=== PATIENT | female | born 1960 | race Caucasian/White ===

== ENCOUNTER 2021-09-17 12:23 | Outpatient (CLI) | payer OTHER, SELFPAY | END 2021-09-17 12:24 | disposition home or self-care (01) | LOC: AMB 09-26 11:37 | PROVIDERS: Visit Provider Emergency Medicine Emergency Medical Services | DX: S09.90XA Unspecified injury of head, initial encounter (principal); M62.838 Other muscle spasm; R53.1 Weakness; W19.XXXA Unspecified fall, initial encounter; Y92.009 Unspecified place in unspecified non-institutional (private) residence as the place of occurrence of the external cause | CPT/HCPCS: A0425; A0429 ==

== ENCOUNTER 2021-12-27 14:30 | Outpatient (CLI) | payer OTHER, SELFPAY | END 2021-12-27 14:31 | disposition home or self-care (01) | LOC: AMB 12-29 11:26 | PROVIDERS: Visit Provider Family Medicine | DX: S39.92XA Unspecified injury of lower back, initial encounter (principal); W19.XXXA Unspecified fall, initial encounter; Y92.009 Unspecified place in unspecified non-institutional (private) residence as the place of occurrence of the external cause | CPT/HCPCS: A0425; A0429 ==

== ENCOUNTER 2021-12-27 14:55 | Emergency (ER) | payer OTHER, SELFPAY ==
[2021-12-27] VITALS (69 sets, daily range): BP systolic 83–113; BP diastolic 46–77; PULSE 61–88; RESP 20–24; TEMP 35.8–36.2; O2SAT 92–100
--- NOTE | 2021-12-27 15:14 | ED.GENADULT ---
HPI - General Adult General Time Seen by Provider: 15:14 <Ann Marie Kothari MD - Last Filed: 12/29/21 11:05> Date Seen: 12/27/21 <Ann Marie Kothari MD - Last Filed: 12/29/21 11:05> Chief complaint: Fall/Minor Trauma <Ann Marie Kothari MD - Last Filed: 12/29/21 11:05> Stated complaint: Fall <Ann Marie Kothari MD - Last Filed: 12/29/21 11:05> Time Seen by Provider: 12/27/21 15:07 <Ann Marie Kothari MD - Last Filed: 12/29/21 11:05> Source: patient, EMS and RN notes reviewed <Ann Marie Kothari MD - Last Filed: 12/29/21 11:05> Mode of arrival: EMS <Ann Marie Kothari MD - Last Filed: 12/29/21 11:05> Limitations: altered mental status <Ann Marie Kothari MD - Last Filed: 12/29/21 11:05> History of Present Illness HPI narrative: Patient is a 61-year-old female brought in by EMS for complaint of a fall at home. She had told EMS that she had fallen yesterday but her roommate stated she actually fell today. Her glucose was normal per EMS. She was reportedly on the ground, there were feces about her room. She was noted to be disheveled. Nursing staff cleaned her up on arrival. When I saw her she was sleeping, was arousable. She fell back asleep easily. She was able to tell me that she had no pain. She was not hurting anywhere. Kept falling back asleep and was difficult to get a history from. <Ann Marie Kothari MD - Last Filed: 12/29/21 11:05> Related Data Home medications: Home Medications Medication Instructions Recorded Confirmed Unobtainable 12/27/21 12/27/21 <Ann Marie Kothari MD - Last Filed: 12/29/21 11:05> Allergies/adverse reactions: Allergies Allergy/AdvReac Type Severity Reaction Status Date / Time celecoxib Allergy Unknown Verified 12/27/21 17:24 ibuprofen [From Motrin] Allergy Unknown Verified 12/27/21 17:24 naproxen Allergy Unknown Verified 12/27/21 17:24 <Ann Marie Kothari MD - Last Filed: 12/29/21 11:05> [facility] Social History: Social History Smoking Status: Unknown if ever smoked Non-prescribed substance use: denies use service: No <Ann Marie Kothari MD - Last Filed: 12/29/21 11:05> Exam Const: Vital Signs, click to edit/add: Vital Signs - 24 hr 12/27/21 15:01 12/27/21 15:19 12/27/21 16:30 Temperature 97.2 F L Pulse Rate Pulse Rate [Pulse Oximeter] 88 79 Respiratory Rate 20 20 Blood Pressure Blood Pressure [Ri ght Upper Arm] 113/77 101/53 L Pulse Oximetry 99 97 99 Oxygen Delivery Me thod Nasal Cannula Nasal Cannula 12/27/21 18:00 12/27/21 18:30 12/27/21 16:45 Temperature 96.5 F L Pulse Rate Pulse Rate [Pulse Oximeter] 79 78 79 Respiratory Rate 24 22 21 Blood Pressure Blood Pressure [Ri ght Upper Arm] 92/55 L 87/46 L 106/59 L Pulse Oximetry 97 97 99 Oxygen Delivery Me thod Nasal Cannula Nasal Cannula Nasal Cannula 12/27/21 17:00 12/27/21 17:15 12/27/21 17:30 Temperature Pulse Rate Pulse Rate [Pulse Oximeter] 78 79 82 Respiratory Rate 22 21 24 Blood Pressure Blood Pressure [Ri ght Upper Arm] 99/50 L 101/59 L 105/69 Pulse Oximetry 98 98 93 Oxygen Delivery Me thod Nasal Cannula Nasal Cannula Nasal Cannula 12/27/21 17:45 12/27/21 18:15 12/27/21 18:15 Temperature Pulse Rate Pulse Rate [Pulse Oximeter] 80 80 78 Respiratory Rate 23 22 22 Blood Pressure Blood Pressure [Ri ght Upper Arm] 100/58 L 88/54 L 90/52 L Pulse Oximetry 97 97 97 Oxygen Delivery Me thod Nasal Cannula Nasal Cannula Nasal Cannula 12/27/21 18:47 12/27/21 18:47 12/27/21 16:31 Temperature Pulse Rate 81 Pulse Rate [Pulse Oximeter] 78 78 Respiratory Rate 21 20 Blood Pressure 101/53 L Blood Pressure [Ri ght Upper Arm] 83/48 L 89/52 L Pulse Oximetry 96 97 93 Oxygen Delivery Me thod Nasal Cannula Nasal Cannula 12/27/21 16:32 12/27/21 16:45 12/27/21 16:46 Temperature Pulse Rate 81 79 79 Pulse Rate [Pulse Oximeter] Respiratory Rate 24 23 Blood Pressure 106/59 L Blood Pressure [Ri ght Upper Arm] Pulse Oximetry 92 98 99 Oxygen Delivery Me thod 12/27/21 17:00 12/27/21 17:01 12/27/21 17:15 Temperature Pulse Rate 79 79 80 Pulse Rate [Pulse Oximeter] Respiratory Rate 24 23 22 Blood Pressure 99/50 L 101/59 L Blood Pressure [Ri ght Upper Arm] Pulse Oximetry 99 98 98 Oxygen Delivery Me thod 12/27/21 17:16 12/27/21 17:30 12/27/21 17:31 Temperature Pulse Rate 80 81 84 Pulse Rate [Pulse Oximeter] Respiratory Rate 23 23 22 Blood Pressure 105/69 Blood Pressure [Ri ght Upper Arm] Pulse Oximetry 98 97 99 Oxygen Delivery Me thod 12/27/21 17:45 12/27/21 17:46 12/27/21 18:00 Temperature Pulse Rate 80 81 79 Pulse Rate [Pulse Oximeter] Respiratory Rate 22 24 21 Blood Pressure 100/58 L Blood Pressure [Ri ght Upper Arm] Pulse Oximetry 98 97 97 Oxygen Delivery Me thod 12/27/21 18:01 12/27/21 18:15 12/27/21 18:16 Temperature Pulse Rate 79 79 80 Pulse Rate [Pulse Oximeter] Respiratory Rate 23 22 21 Blood Pressure 92/55 L 88/54 L Blood Pressure [Ri ght Upper Arm] Pulse Oximetry 97 97 97 Oxygen Delivery Me thod 12/27/21 18:19 12/27/21 18:30 12/27/21 18:31 Temperature Pulse Rate 79 78 79 Pulse Rate [Pulse Oximeter] Respiratory Rate 23 21 21 Blood Pressure 90/52 L 87/46 L Blood Pressure [Ri ght Upper Arm] Pulse Oximetry 96 96 96 Oxygen Delivery Me thod 12/27/21 18:45 12/27/21 18:46 12/27/21 18:48 Temperature Pulse Rate 78 79 78 Pulse Rate [Pulse Oximeter] Respiratory Rate 22 23 22 Blood Pressure 83/48 L 89/52 L Blood Pressure [Ri ght Upper Arm] Pulse Oximetry 96 97 97 Oxygen Delivery Me thod 12/27/21 19:00 12/27/21 19:01 12/27/21 19:02 Temperature Pulse Rate 78 79 78 Pulse Rate [Pulse Oximeter] Respiratory Rate 21 22 20 Blood Pressure 83/49 L 84/51 L Blood Pressure [Ri ght Upper Arm] Pulse Oximetry 96 96 96 Oxygen Delivery Me thod 12/27/21 19:14 12/27/21 19:15 12/27/21 19:16 Temperature Pulse Rate 76 76 76 Pulse Rate [Pulse Oximeter] Respiratory Rate 21 24 21 Blood Pressure 85/48 L 83/49 L Blood Pressure [Ri ght Upper Arm] Pulse Oximetry 97 97 97 Oxygen Delivery Me thod 12/27/21 19:36 12/27/21 19:39 12/27/21 19:45 Temperature Pulse Rate 76 76 72 Pulse Rate [Pulse Oximeter] Respiratory Rate Blood Pressure 102/64 Blood Pressure [Ri ght Upper Arm] Pulse Oximetry 93 94 100 Oxygen Delivery Me thod 12/27/21 19:46 12/27/21 20:00 12/27/21 20:01 Temperature Pulse Rate 72 72 72 Pulse Rate [Pulse Oximeter] Respiratory Rate Blood Pressure 103/54 L 100/58 L Blood Pressure [Ri ght Upper Arm] Pulse Oximetry 100 99 99 Oxygen Delivery Me thod 12/27/21 20:02 12/27/21 20:15 12/27/21 20:16 Temperature Pulse Rate 71 71 71 Pulse Rate [Pulse Oximeter] Respiratory Rate Blood Pressure 97/56 L Blood Pressure [Ri ght Upper Arm] Pulse Oximetry 99 98 98 Oxygen Delivery Me thod 12/27/21 20:31 12/27/21 20:32 12/27/21 20:45 Temperature Pulse Rate 71 71 72 Pulse Rate [Pulse Oximeter] Respiratory Rate Blood Pressure 99/58 L Blood Pressure [Ri ght Upper Arm] Pulse Oximetry 98 98 97 Oxygen Delivery Me thod 12/27/21 20:46 12/27/21 21:00 12/27/21 21:01 Temperature Pulse Rate 72 75 74 Pulse Rate [Pulse Oximeter] Respiratory Rate Blood Pressure 96/59 L 104/58 L Blood Pressure [Ri ght Upper Arm] Pulse Oximetry 97 97 97 Oxygen Delivery Me thod 12/27/21 21:15 12/27/21 21:16 12/27/21 21:30 Temperature Pulse Rate 76 75 75 Pulse Rate [Pulse Oximeter] Respiratory Rate Blood Pressure 111/61 Blood Pressure [Ri ght Upper Arm] Pulse Oximetry 98 97 95 Oxygen Delivery Me thod 12/27/21 21:31 12/27/21 21:45 12/27/21 21:46 Temperature Pulse Rate 61 77 79 Pulse Rate [Pulse Oximeter] Respiratory Rate Blood Pressure 111/64 113/62 Blood Pressure [Ri ght Upper Arm] Pulse Oximetry 97 96 96 Oxygen Delivery Me thod 12/27/21 22:00 12/27/21 22:01 12/27/21 22:15 Temperature Pulse Rate 79 79 73 Pulse Rate [Pulse Oximeter] Respiratory Rate Blood Pressure 113/66 Blood Pressure [Ri ght Upper Arm] Pulse Oximetry 97 96 99 Oxygen Delivery Me thod 12/27/21 22:16 12/27/21 22:17 12/27/21 22:30 Temperature Pulse Rate 75 74 73 Pulse Rate [Pulse Oximeter] Respiratory Rate Blood Pressure 108/60 Blood Pressure [Ri ght Upper Arm] Pulse Oximetry 99 97 98 Oxygen Delivery Me thod 12/27/21 22:31 12/27/21 22:46 12/27/21 22:47 Temperature Pulse Rate 73 72 71 Pulse Rate [Pulse Oximeter] Respiratory Rate Blood Pressure 105/54 L 100/59 L Blood Pressure [Ri ght Upper Arm] Pulse Oximetry 96 97 96 Oxygen Delivery Me thod 12/27/21 23:01 12/27/21 23:02 12/27/21 23:16 Temperature Pulse Rate 73 72 69 Pulse Rate [Pulse Oximeter] Respiratory Rate Blood Pressure 103/59 L 101/57 L Blood Pressure [Ri ght Upper Arm] Pulse Oximetry 96 97 95 Oxygen Delivery Me thod 12/27/21 23:17 12/27/21 23:35 12/27/21 23:45 Temperature Pulse Rate 70 72 67 Pulse Rate [Pulse Oximeter] Respiratory Rate Blood Pressure Blood Pressure [Ri ght Upper Arm] Pulse Oximetry 97 97 96 Oxygen Delivery Me thod 12/27/21 23:46 12/28/21 00:01 12/28/21 00:02 Temperature Pulse Rate 69 70 70 Pulse Rate [Pulse Oximeter] Respiratory Rate Blood Pressure 100/54 L 98/57 L Blood Pressure [Ri ght Upper Arm] Pulse Oximetry 97 97 97 Oxygen Delivery Me thod 12/28/21 00:16 12/28/21 00:17 12/28/21 00:30 Temperature Pulse Rate 67 66 67 Pulse Rate [Pulse Oximeter] Respiratory Rate Blood Pressure 94/53 L Blood Pressure [Ri ght Upper Arm] Pulse Oximetry 97 97 98 Oxygen Delivery Me thod 12/28/21 00:31 12/28/21 00:46 12/28/21 00:47 Temperature Pulse Rate 67 65 66 Pulse Rate [Pulse Oximeter] Respiratory Rate Blood Pressure 97/56 L 97/54 L Blood Pressure [Ri ght Upper Arm] Pulse Oximetry 98 98 97 Oxygen Delivery Me thod 12/28/21 01:00 12/28/21 01:01 12/28/21 01:15 Temperature Pulse Rate 70 75 70 Pulse Rate [Pulse Oximeter] Respiratory Rate Blood Pressure 107/65 Blood Pressure [Ri ght Upper Arm] Pulse Oximetry 97 96 98 Oxygen Delivery Me thod 12/28/21 01:17 12/28/21 01:30 12/28/21 01:31 Temperature Pulse Rate 75 79 77 Pulse Rate [Pulse Oximeter] Respiratory Rate Blood Pressure 109/60 117/76 Blood Pressure [Ri ght Upper Arm] Pulse Oximetry 99 99 98 Oxygen Delivery Me thod 12/28/21 01:59 12/28/21 02:00 12/28/21 02:01 Temperature Pulse Rate 73 78 77 Pulse Rate [Pulse Oximeter] Respiratory Rate Blood Pressure 111/76 Blood Pressure [Ri ght Upper Arm] Pulse Oximetry 98 92 96 Oxygen Delivery Me thod <Ann Marie Kothari MD - Last Filed: 12/29/21 11:05> Vital Signs, click to edit/add: Vital Signs - 24 hr 12/27/21 15:01 12/27/21 15:19 12/27/21 16:30 Temperature 97.2 F L Pulse Rate Pulse Rate [Pulse Oximeter] 88 79 Respiratory Rate 20 20 Blood Pressure Blood Pressure [Ri ght Upper Arm] 113/77 101/53 L Pulse Oximetry 99 97 99 Oxygen Delivery Me thod Nasal Cannula Nasal Cannula 12/27/21 18:00 10/11/22 18:30 12/27/21 16:45 Temperature 96.5 F L Pulse Rate Pulse Rate [Pulse Oximeter] 79 78 79 Respiratory Rate 24 22 21 Blood Pressure Blood Pressure [Ri ght Upper Arm] 92/55 L 87/46 L 106/59 L Pulse Oximetry 97 97 99 Oxygen Delivery Me thod Nasal Cannula Nasal Cannula Nasal Cannula 12/27/21 17:00 12/27/21 17:15 12/27/21 17:30 Temperature Pulse Rate Pulse Rate [Pulse Oximeter] 78 79 82 Respiratory Rate 22 21 24 Blood Pressure Blood Pressure [Ri ght Upper Arm] 99/50 L 101/59 L 105/69 Pulse Oximetry 98 98 93 Oxygen Delivery Me thod Nasal Cannula Nasal Cannula Nasal Cannula 12/27/21 17:45 12/27/21 18:15 12/27/21 18:15 Temperature Pulse Rate Pulse Rate [Pulse Oximeter] 80 80 78 Respiratory Rate 23 22 22 Blood Pressure Blood Pressure [Ri ght Upper Arm] 100/58 L 88/54 L 90/52 L Pulse Oximetry 97 97 97 Oxygen Delivery Me thod Nasal Cannula Nasal Cannula Nasal Cannula 12/27/21 18:47 12/27/21 18:47 12/27/21 16:31 Temperature Pulse Rate 81 Pulse Rate [Pulse Oximeter] 78 78 Respiratory Rate 21 20 Blood Pressure 101/53 L Blood Pressure [Ri ght Upper Arm] 83/48 L 89/52 L Pulse Oximetry 96 97 93 Oxygen Delivery Me thod Nasal Cannula Nasal Cannula 12/27/21 16:32 12/27/21 16:45 12/27/21 16:46 Temperature Pulse Rate 81 79 79 Pulse Rate [Pulse Oximeter] Respiratory Rate 24 23 Blood Pressure 106/59 L Blood Pressure [Ri ght Upper Arm] Pulse Oximetry 92 98 99 Oxygen Delivery Me thod 12/27/21 17:00 12/27/21 17:01 12/27/21 17:15 Temperature Pulse Rate 79 79 80 Pulse Rate [Pulse Oximeter] Respiratory Rate 24 23 22 Blood Pressure 99/50 L 101/59 L Blood Pressure [Ri ght Upper Arm] Pulse Oximetry 99 98 98 Oxygen Delivery Me thod 12/27/21 17:16 12/27/21 17:30 12/27/21 17:31 Temperature Pulse Rate 80 81 84 Pulse Rate [Pulse Oximeter] Respiratory Rate 23 23 22 Blood Pressure 105/69 Blood Pressure [Ri ght Upper Arm] Pulse Oximetry 98 97 99 Oxygen Delivery Me thod 12/27/21 17:45 12/27/21 17:46 12/27/21 18:00 Temperature Pulse Rate 80 81 79 Pulse Rate [Pulse Oximeter] Respiratory Rate 22 24 21 Blood Pressure 100/58 L Blood Pressure [Ri ght Upper Arm] Pulse Oximetry 98 97 97 Oxygen Delivery Me thod 12/27/21 18:01 12/27/21 18:15 12/27/21 18:16 Temperature Pulse Rate 79 79 80 Pulse Rate [Pulse Oximeter] Respiratory Rate 23 22 21 Blood Pressure 92/55 L 88/54 L Blood Pressure [Ri ght Upper Arm] Pulse Oximetry 97 97 97 Oxygen Delivery Me thod 12/27/21 18:19 12/27/21 18:30 12/27/21 18:31 Temperature Pulse Rate 79 78 79 Pulse Rate [Pulse Oximeter] Respiratory Rate 23 21 21 Blood Pressure 90/52 L 87/46 L Blood Pressure [Ri ght Upper Arm] Pulse Oximetry 96 96 96 Oxygen Delivery Me thod 12/27/21 18:45 12/27/21 18:46 12/27/21 18:48 Temperature Pulse Rate 78 79 78 Pulse Rate [Pulse Oximeter] Respiratory Rate 22 23 22 Blood Pressure 83/48 L 89/52 L Blood Pressure [Ri ght Upper Arm] Pulse Oximetry 96 97 97 Oxygen Delivery Me thod 12/27/21 19:00 12/27/21 19:01 12/27/21 19:02 Temperature Pulse Rate 78 79 78 Pulse Rate [Pulse Oximeter] Respiratory Rate 21 22 20 Blood Pressure 83/49 L 84/51 L Blood Pressure [Ri ght Upper Arm] Pulse Oximetry 96 96 96 Oxygen Delivery Me thod 12/27/21 19:14 12/27/21 19:15 12/27/21 19:16 Temperature Pulse Rate 76 76 76 Pulse Rate [Pulse Oximeter] Respiratory Rate 21 24 21 Blood Pressure 85/48 L 83/49 L Blood Pressure [Ri ght Upper Arm] Pulse Oximetry 97 97 97 Oxygen Delivery Me thod 12/27/21 19:36 12/27/21 19:39 12/27/21 19:45 Temperature Pulse Rate 76 76 72 Pulse Rate [Pulse Oximeter] Respiratory Rate Blood Pressure 102/64 Blood Pressure [Ri ght Upper Arm] Pulse Oximetry 93 94 100 Oxygen Delivery Me thod 12/27/21 19:46 12/27/21 20:00 12/27/21 20:01 Temperature Pulse Rate 72 72 72 Pulse Rate [Pulse Oximeter] Respiratory Rate Blood Pressure 103/54 L 100/58 L Blood Pressure [Ri ght Upper Arm] Pulse Oximetry 100 99 99 Oxygen Delivery Me thod 12/27/21 20:02 12/27/21 20:15 12/27/21 20:16 Temperature Pulse Rate 71 71 71 Pulse Rate [Pulse Oximeter] Respiratory Rate Blood Pressure 97/56 L Blood Pressure [Ri ght Upper Arm] Pulse Oximetry 99 98 98 Oxygen Delivery Me thod 12/27/21 20:31 12/27/21 20:32 12/27/21 20:45 Temperature Pulse Rate 71 71 72 Pulse Rate [Pulse Oximeter] Respiratory Rate Blood Pressure 99/58 L Blood Pressure [Ri ght Upper Arm] Pulse Oximetry 98 98 97 Oxygen Delivery Me thod 12/27/21 20:46 12/27/21 21:00 12/27/21 21:01 Temperature Pulse Rate 72 75 74 Pulse Rate [Pulse Oximeter] Respiratory Rate Blood Pressure 96/59 L 104/58 L Blood Pressure [Ri ght Upper Arm] Pulse Oximetry 97 97 97 Oxygen Delivery Me thod 12/27/21 21:15 12/27/21 21:16 12/27/21 21:30 Temperature Pulse Rate 76 75 75 Pulse Rate [Pulse Oximeter] Respiratory Rate Blood Pressure 111/61 Blood Pressure [Ri ght Upper Arm] Pulse Oximetry 98 97 95 Oxygen Delivery Me thod 12/27/21 21:31 12/27/21 21:45 12/27/21 21:46 Temperature Pulse Rate 61 77 79 Pulse Rate [Pulse Oximeter] Respiratory Rate Blood Pressure 111/64 113/62 Blood Pressure [Ri ght Upper Arm] Pulse Oximetry 97 96 96 Oxygen Delivery Me thod 12/27/21 22:00 12/27/21 22:01 12/27/21 22:15 Temperature Pulse Rate 79 79 73 Pulse Rate [Pulse Oximeter] Respiratory Rate Blood Pressure 113/66 Blood Pressure [Ri ght Upper Arm] Pulse Oximetry 97 96 99 Oxygen Delivery Me thod 12/27/21 22:16 12/27/21 22:17 12/27/21 22:30 Temperature Pulse Rate 75 74 73 Pulse Rate [Pulse Oximeter] Respiratory Rate Blood Pressure 108/60 Blood Pressure [Ri ght Upper Arm] Pulse Oximetry 99 97 98 Oxygen Delivery Me thod 12/27/21 22:31 12/27/21 22:46 12/27/21 22:47 Temperature Pulse Rate 73 72 71 Pulse Rate [Pulse Oximeter] Respiratory Rate Blood Pressure 105/54 L 100/59 L Blood Pressure [Ri ght Upper Arm] Pulse Oximetry 96 97 96 Oxygen Delivery Me thod 12/27/21 23:01 12/27/21 23:02 12/27/21 23:16 Temperature Pulse Rate 73 72 69 Pulse Rate [Pulse Oximeter] Respiratory Rate Blood Pressure 103/59 L 101/57 L Blood Pressure [Ri ght Upper Arm] Pulse Oximetry 96 97 95 Oxygen Delivery Me thod 12/27/21 23:17 12/27/21 23:35 12/27/21 23:45 Temperature Pulse Rate 70 72 67 Pulse Rate [Pulse Oximeter] Respiratory Rate Blood Pressure Blood Pressure [Ri ght Upper Arm] Pulse Oximetry 97 97 96 Oxygen Delivery Me thod 12/27/21 23:46 12/28/21 00:01 12/28/21 00:02 Temperature Pulse Rate 69 70 70 Pulse Rate [Pulse Oximeter] Respiratory Rate Blood Pressure 100/54 L 98/57 L Blood Pressure [Ri ght Upper Arm] Pulse Oximetry 97 97 97 Oxygen Delivery Me thod 12/28/21 00:16 12/28/21 00:17 12/28/21 00:30 Temperature Pulse Rate 67 66 67 Pulse Rate [Pulse Oximeter] Respiratory Rate Blood Pressure 94/53 L Blood Pressure [Ri ght Upper Arm] Pulse Oximetry 97 97 98 Oxygen Delivery Me thod 12/28/21 00:31 12/28/21 00:46 12/28/21 00:47 Temperature Pulse Rate 67 65 66 Pulse Rate [Pulse Oximeter] Respiratory Rate Blood Pressure 97/56 L 97/54 L Blood Pressure [Ri ght Upper Arm] Pulse Oximetry 98 98 97 Oxygen Delivery Me thod 12/28/21 01:00 12/28/21 01:01 12/28/21 01:15 Temperature Pulse Rate 70 75 70 Pulse Rate [Pulse Oximeter] Respiratory Rate Blood Pressure 107/65 Blood Pressure [Ri ght Upper Arm] Pulse Oximetry 97 96 98 Oxygen Delivery Me thod 12/28/21 01:17 12/28/21 01:30 12/28/21 01:31 Temperature Pulse Rate 75 79 77 Pulse Rate [Pulse Oximeter] Respiratory Rate Blood Pressure 109/60 117/76 Blood Pressure [Ri ght Upper Arm] Pulse Oximetry 99 99 98 Oxygen Delivery Me thod 12/28/21 01:59 12/28/21 02:00 12/28/21 02:01 Temperature Pulse Rate 73 78 77 Pulse Rate [Pulse Oximeter] Respiratory Rate Blood Pressure 111/76 Blood Pressure [Ri ght Upper Arm] Pulse Oximetry 98 92 96 Oxygen Delivery Me thod <Cooper Martins MD - Last Filed: 12/28/21 02:48> Documenting provider has reviewed patient's vital signs: yes <Ann Marie Kothari MD - Last Filed: 12/29/21 11:05> Common normals: no apparent distress <Ann Marie Kothari MD - Last Filed: 12/29/21 11:05> Exam limitations: altered mental status (Excessively sleepy but arousable) <Ann Marie Kothari MD - Last Filed: 12/29/21 11:05> General appearance: comfortable, disheveled and other (Covered in feces on arrival) <Ann Marie Kothari MD - Last Filed: 12/29/21 11:05> Nutritional appearance: obese <Ann Marie Kothari MD - Last Filed: 12/29/21 11:05> HENMT: Common normals: normocephalic, head/scalp atraumatic and hearing grossly normal bilaterally <Ann Marie Kothari MD - Last Filed: 12/29/21 11:05> Head and scalp: normocephalic and atraumatic <Ann Marie Kothari MD - Last Filed: 12/29/21 11:05> Other: No traumatic changes noted in the oropharynx, tongue and oral mucosa excessively dry <Ann Marie Kothari MD - Last Filed: 12/29/21 11:05> Eye: Other: Pupils are pinpoint, sclera clear, still has conjugate gaze <Ann Marie Kothari MD - Last Filed: 12/29/21 11:05> Chest: Common normals: inspection of chest normal <Ann Marie Kothari MD - Last Filed: 12/29/21 11:05> Resp: Common normals: normal respiratory effort, no retractions, no use of accessory muscles and clear to auscultation bilaterally <Ann Marie Kothari MD - Last Filed: 12/29/21 11:05> Auscultation: clear to auscultation bilaterally <Ann Marie Kothari MD - Last Filed: 12/29/21 11:05> Cardio: Common normals: regular rate, regular rhythm, S1 normal heart sound, S2 normal heart sound, no gallops, no clicks and no murmurs <Ann Marie Kothari MD - Last Filed: 12/29/21 11:05> Rate: regular rate <Ann Marie Kothari MD - Last Filed: 12/29/21 11:05> Rhythm: regular rhythm <Ann Marie Kothari MD - Last Filed: 12/29/21 11:05> Heart sounds: S1 normal and S2 normal <Ann Marie Kothari MD - Last Filed: 12/29/21 11:05> GI: Common normals: Normal to inspection, nondistended, normoactive bowel sounds present, soft to palpation, non-tender and no hepatosplenomegaly <Ann Marie Kothari MD - Last Filed: 12/29/21 11:05> Palpation: soft and no hepatosplenomegaly <Ann Marie Kothari MD - Last Filed: 12/29/21 11:05> Other: Has bruised area with a little central scab right lower abdominal wall. <Ann Marie Kothari MD - Last Filed: 12/29/21 11:05> Extremity: Other: Toes arm is seen on right foot, note no abnormality in this right lower extremity. 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 <Ann Marie Kothari MD - Last Filed: 12/29/21 11:05> Course Course Hospital Course: I suspect this patient is potentially altered from use of illicit drugs. Will rule out traumatic pathology with a head CT. She does have a history of sepsis and will consider infectious and metabolic etiology as well. Will have on cardiac monitoring and pulse oximetry. At this time she is arousable enough that I feel she is safe to protect her airway but will continue to monitor her. May need to do further imaging. Looking in her records she has a history of colitis and there is diarrhea noted while she is here. She does not have any abdominal pain on exam now and tells me her abdomen does not hurt when I am palpating. <Ann Marie Kothari MD - Last Filed: 12/29/21 11:05> Reevaluation(s) Reevaluation #1: Nursing staff just recently alerted me that the patient's mentation was changing, was not arousing. I went back and found patient to have sonorous sleeping, blood pressure was lower 80s over 50s, oxygenating but not arousable with sternal rub. We still have not gotten blood work on her, they had just obtained her EKG. Her urine toxicology was back positive for methamphetamines, amphetamines, THC. Her pupils are pinpoint, still wonder if there could not be other substances on board. We are going to get a stat head CT, bring her back into room 8 where she can be on capnography. We will try Narcan 0.4 mg IV. This is a patient that we are going to need toe watch closely and consider possibly securing her airway due to her diminished level of consciousness. <Ann Marie Kothari MD - Last Filed: 12/29/21 11:05> Time: 16:25 <Ann Marie Kothari MD - Last Filed: 12/29/21 11:05> Reevaluation #2: Was going into patient's room to prepare to intubate. She had been on capnography it was still oxygenating appropriately but given her decreased level of consciousness was felt necessary to protect her airway. I did check on patient to give her very mild sternal rub. She awoke with a start in yelled out. I did talk to her a bit. She knows that she is at [facility]. When I asked her when she used methamphetamine she yelled what and no. She would want to be intubated. I explained to her that there was an intraparenchymal brain bleed. Pupils at this time showed her rate to be about 3 or so mm and her left slightly smaller at 2. I did talk to [facility] and at this time the closed all trauma except for Pediatrics, 5:36 p.m. I also called [place] in spoke with Gena NEVAREZ whom stated that they were on divert for neuro and neuro ICU, including [place] and [place]. Did remove her prosthesis later on her left extremity and the stump is without any evidence of infection, was some dried stool underneath the prosthesis. <Ann Marie Kothari MD - Last Filed: 12/29/21 11:05> Time: 17:30 <Ann Marie Kothari MD - Last Filed: 12/29/21 11:05> Reevaluation #3: Blood pressures have been trending down into the 80s over 90s again. Patient is still responsive to voice. She is not become unresponsive again, much less somnolence. She has received the initial L bolus when she came in and then has had maintenance at 125 mL an hour. Am going to initiate a L of fluids. We do not have any beds right now in our facility, there are no beds at [facility], no beds in the [facility] system outside of ICU and at this time patient is not requiring an ICU. I have ordered a lab add on for procalcitonin, venous blood gas, when I will make sure her urine culture got ordered. I did order stool studies and C difficile but she has had no further diarrhea. Her daughter did call here, she had told me that she did not have any relatives to call. Her daughter stated 3 months ago that she had a fall and had a head bleed. She thought she was in [place] but there is no documentation to support that. I think she probably due maybe was at [facility] possibly she ended up going to rehab for months and then was just recently home. I did speak with neurosurgery at [place] around 6:49 p.m.. He thought that if she is neurologically stable that this type of bleed did not require hospitalization. I did ask him about maybe repeating imaging in 6 hours and he thought that that would be appropriate. He did not think we needed to do anything as far as dexamethasone as long as there was not any swelling and no seizure prophylaxis. I did want to await C difficile results but given patient's trending low blood pressures, I am worried that she actually may have a sepsis syndrome. I do not have a source and thus will do chest abdomen pelvis CT but will need to do a noncontrast. Her creatinine has come back elevated at 3.2. Will attempt to use cefepime and give her an initial dose of vancomycin, pharmacy can further monitor and antibiotics can be tailored to source if found. <Ann Marie Kothari MD - Last Filed: 12/29/21 11:05> Time: 19:14 <Ann Marie Kothari MD - Last Filed: 12/29/21 11:05> Additional Reevaluation(s): 8:30 PM sign-out from Dr. Arizmendi. Briefly, patient brought in with decreased mental status. Head CT shows a right intraparenchymal hemorrhage, patient has history of similar in September based on review of head CT from outside hospital, images were reviewed the area today's significantly smaller than prior. Also found to have leukocytosis lactate is normal, procalcitonin is borderline and antibiotics were initiated. UDS positive for methamphetamine and THC. Creatinine is elevated from baseline. Did become hypotensive in the department, continue to monitor. 10:12 p.m. patient reexamined. Urine is clearing. Patient rouses to voice but does not follow commands, pupils are equal. Blood pressure has improved. Repeat head CT in about 30 minutes. Repeat creatinine in will be ordered as well as repeat CBC as leukocytosis may be from stress demargination. Continue to monitor. 11:44 PM patient remains vital is stable. Repeat head CT personally reviewed by me demonstrates stable to slightly decreased right intraparenchymal hemorrhage. 12:43 a.m. initial evaluation, white blood cell count has risen a little bit. Patient is already received antibiotics, remains vital is stable. On recheck, she is awake and alert, does not really remember what happened. She has no known other complaints other than being hungry. No beds available at [facility] as patient will need a ICU or intermediate care bed, contacted [facility] for possible transfer, no neuro tele beds available but patient may be ICU level given transient response to fluids. No beds available at [place]. 1:29 a.m. accepted to [facility] by Dr. Mooer. Neuro educational aid requests cervical spine CT and INR. <Cooper Martins MD - Last Filed: 12/28/21 02:48> Vital Signs Vital signs: Initial Vital Signs Temperature 97.2 F L 12/27/21 15:01 Temperature Source Temporal Artery Scan 12/27/21 15:01 Pulse Rate 88 12/27/21 15:01 Respiratory Rate 20 12/27/21 15:01 Blood Pressure 113/77 12/27/21 15:01 Blood Pressure Mean 89 12/27/21 15:01 Blood Pressure Position Supine 12/27/21 15:01 Pulse Oximetry 99 12/27/21 15:01 Oxygen Delivery Method 12/27/21 15:01 Vital Signs Temperature 97.2 F L 12/27/21 15:01 Pulse Rate 88 12/27/21 15:01 Respiratory Rate 20 12/27/21 15:01 Blood Pressure 113/77 12/27/21 15:01 Pulse Oximetry 99 12/27/21 15:01 Oxygen Delivery Method 12/27/21 15:01 Temperature 96.5 F L 12/27/21 18:30 Pulse Rate 77 12/28/21 02:01 Respiratory Rate 21 12/27/21 19:16 Blood Pressure 111/76 12/28/21 02:01 Pulse Oximetry 96 12/28/21 02:01 Oxygen Delivery Method 12/27/21 18:47 <Ann Marie Kothari MD - Last Filed: 12/29/21 11:05> Initial Vital Signs Temperature 97.2 F L 12/27/21 15:01 Temperature Source Temporal Artery Scan 12/27/21 15:01 Pulse Rate 88 12/27/21 15:01 Respiratory Rate 20 12/27/21 15:01 Blood Pressure 113/77 12/27/21 15:01 Blood Pressure Mean 89 12/27/21 15:01 Blood Pressure Position Supine 12/27/21 15:01 Pulse Oximetry 99 12/27/21 15:01 Oxygen Delivery Method 12/27/21 15:01 Vital Signs Temperature 97.2 F L 12/27/21 15:01 Pulse Rate 88 12/27/21 15:01 Respiratory Rate 20 12/27/21 15:01 Blood Pressure 113/77 12/27/21 15:01 Pulse Oximetry 99 12/27/21 15:01 Oxygen Delivery Method 12/27/21 15:01 Temperature 96.5 F L 12/27/21 18:30 Pulse Rate 77 12/28/21 02:01 Respiratory Rate 21 12/27/21 19:16 Blood Pressure 111/76 12/28/21 02:01 Pulse Oximetry 96 12/28/21 02:01 Oxygen Delivery Method 12/27/21 18:47 <Cooper Martins MD - Last Filed: 12/28/21 02:48> Medical Decision Making Lab Data Labs: Lab Results 12/27/21 12/27/21 12/27/21 Range/Units 15:21 15:21 15:50 WBC (4.50-11.00) K/uL RBC (4.00-5.20) m/uL Hgb (12.0-16.0) gm/dL Hct (33.0-51.0) % MCV (80-100) fL MCH (26-34) pg MCHC (32-36) gm/dL RDW Coeff of Arlin (11.5-15.5) % Plt Count (140-440) K/uL Neut % (Auto) (42.0-72.0) % Lymph % (Auto) (20-44) % [place] % (Auto) (0.0-11.0) % Eos % (Auto) (0.0-7.0) % Baso % (Auto) (0.0-3.0) % Neut # (Auto) (1.7-7.0) K/uL Lymph # (Auto) (0.90-2.90) K/uL [place] # (Auto) (0.00-0.90) K/UL Eos # (Auto) (0.00-0.50) K/uL Baso # (Auto) (0.00-0.30) K/uL Abs Immat Gran (auto) (0.00-0.30) K/uL Imm/Tot Granulo (auto) % INR (0.91-1.10) VBG pH (7.32-7.43) VBG pCO2 (40-50) mmHG VBG pO2 (25-47) mmHG VBG HCO3 (21-28) mmol/L Sodium (135-149) mmol/L Potassium (3.6-5.1) mmol/L Chloride (96-114) mmol/L Carbon Dioxide (20-32) mmol/L BUN (7-30) mg/dL Creatinine (0.5-1.5) mg/dL Estimated GFR ml/min Glucose (60-115) mg/dL Lactate (0.5-1.9) mmol/L Calcium (8.4-10.6) mg/dL Total Bilirubin (0.1-1.5) mg/dL AST (12-35) U/L ALT (4-35) U/L Alkaline Phosphatase (40-150) U/L Total Creatine Kinase (41-117) U/L Troponin I (0.01-0.04) ng/mL C-Reactive Protein (0.5-1.0) mg/dL Total Protein (6.0-8.3) g/dL Albumin (3.3-5.0) g/dL Procalcitonin (<0.50) ng/mL TSH (0.270-4.200) uIU/mL Urine Color Yellow (Yellow) Urine Appearance Clear (Clear) Urine pH 5.0 (5.0-8.5) Ur Specific [place] 1.020 (1.000-1.030) Urine Protein 1+ A (Negative) Urine Glucose (UA) Negative (Negative) Urine Ketones Trace A (Negative) Urine Blood Negative (Negative) Urine Nitrite Negative (Negative) Urine Bilirubin 2+ A (Negative) Urine Urobilinogen 1.0 (0.2-1.0) Ur Leukocyte Esterase Negative (Negative) Urine RBC 2-5 A (0-2) Urine WBC 5-10 A (0-5) Ur Squamous Epith Cells Few (None-Few) Urine Bacteria Few A (None) Urine Opiates Screen Negative (Negative) Ur Oxycodone Screen Negative (Negative) Urine Methadone Screen Negative (Negative) Ur Propoxyphene Screen Negative (Negative) Ur Barbiturates Screen Negative (Negative) U Tricyclic Antidepress Negative (Negative) Ur Phencyclidine Scrn Negative (Negative) Ur Amphetamines Screen POSITIVE A* (Negative) U Methamphetamines Scrn POSITIVE A* (Negative) U Benzodiazepines Scrn Negative (Negative) Urine Cocaine Screen Negative (Negative) U Marijuana (THC) Screen POSITIVE A* (Negative) Ur Drug Screen Comment See Note Ethyl Alcohol (0.01-0.03) % SARS-CoV-2 (PCR) Negative SARS-CoV-2 (Negative) 12/27/21 12/27/21 12/27/21 Range/Units 15:57 15:57 15:57 WBC 19.97 H (4.50-11.00) K/uL RBC 4.50 (4.00-5.20) m/uL Hgb 13.5 (12.0-16.0) gm/dL Hct 42.4 (33.0-51.0) % MCV 94 (80-100) fL MCH 30 (26-34) pg MCHC 32 (32-36) gm/dL RDW Coeff of Arlin 15.1 (11.5-15.5) % Plt Count 237 (140-440) K/uL Neut % (Auto) 85.3 H (42.0-72.0) % Lymph % (Auto) 5.4 L (20-44) % [place] % (Auto) 8.8 (0.0-11.0) % Eos % (Auto) 0.1 (0.0-7.0) % Baso % (Auto) 0.2 (0.0-3.0) % Neut # (Auto) 17.00 H (1.7-7.0) K/uL Lymph # (Auto) 1.10 (0.90-2.90) K/uL [place] # (Auto) 1.80 H (0.00-0.90) K/UL Eos # (Auto) 0.00 (0.00-0.50) K/uL Baso # (Auto) 0.00 (0.00-0.30) K/uL Abs Immat Gran (auto) 0.03 (0.00-0.30) K/uL Imm/Tot Granulo (auto) % INR (0.91-1.10) VBG pH 7.338 (7.32-7.43) VBG pCO2 43 (40-50) mmHG VBG pO2 46.0 (25-47) mmHG VBG HCO3 23 (21-28) mmol/L Sodium 140 (135-149) mmol/L Potassium 3.4 L (3.6-5.1) mmol/L Chloride 104 (96-114) mmol/L Carbon Dioxide 20 (20-32) mmol/L BUN 39 H (7-30) mg/dL Creatinine 3.2 H (0.5-1.5) mg/dL Estimated GFR 16 ml/min Glucose 163 H (60-115) mg/dL Lactate 1.4 (0.5-1.9) mmol/L Calcium 9.1 (8.4-10.6) mg/dL Total Bilirubin 0.5 (0.1-1.5) mg/dL AST 53 H (12-35) U/L ALT 24 (4-35) U/L Alkaline Phosphatase 119 (40-150) U/L Total Creatine Kinase 962 H (41-117) U/L Troponin I 0.01 (0.01-0.04) ng/mL C-Reactive Protein 3.6 H (0.5-1.0) mg/dL Total Protein 8.0 (6.0-8.3) g/dL Albumin 4.5 (3.3-5.0) g/dL Procalcitonin 0.30 (<0.50) ng/mL TSH (0.270-4.200) uIU/mL Urine Color (Yellow) Urine Appearance (Clear) Urine pH (5.0-8.5) Ur Specific [place] (1.000-1.030) Urine Protein (Negative) Urine Glucose (UA) (Negative) Urine Ketones (Negative) Urine Blood (Negative) Urine Nitrite (Negative) Urine Bilirubin (Negative) Urine Urobilinogen (0.2-1.0) Ur Leukocyte Esterase (Negative) Urine RBC (0-2) Urine WBC (0-5) Ur Squamous Epith Cells (None-Few) Urine Bacteria (None) Urine Opiates Screen (Negative) Ur Oxycodone Screen (Negative) Urine Methadone Screen (Negative) Ur Propoxyphene Screen (Negative) Ur Barbiturates Screen (Negative) U Tricyclic Antidepress (Negative) Ur Phencyclidine Scrn (Negative) Ur Amphetamines Screen (Negative) U Methamphetamines Scrn (Negative) U Benzodiazepines Scrn (Negative) Urine Cocaine Screen (Negative) U Marijuana (THC) Screen (Negative) Ur Drug Screen Comment Ethyl Alcohol < 0.01 L (0.01-0.03) % SARS-CoV-2 (PCR) (Negative) 12/27/21 12/27/21 12/27/21 Range/Units 15:57 22:27 22:27 WBC 20.61 H (4.50-11.00) K/uL RBC 3.76 L (4.00-5.20) m/uL Hgb 11.4 L (12.0-16.0) gm/dL Hct 35.7 (33.0-51.0) % MCV 95 (80-100) fL MCH 30 (26-34) pg MCHC 32 (32-36) gm/dL RDW Coeff of Arlin (11.5-15.5) % Plt Count 192 (140-440) K/uL Neut % (Auto) 80.2 H (42.0-72.0) % Lymph % (Auto) 11.5 L (20-44) % [place] % (Auto) 7.4 (0.0-11.0) % Eos % (Auto) 0.1 (0.0-7.0) % Baso % (Auto) 0.1 (0.0-3.0) % Neut # (Auto) 16.50 H (1.7-7.0) K/uL Lymph # (Auto) 2.40 (0.90-2.90) K/uL [place] # (Auto) 1.50 H (0.00-0.90) K/UL Eos # (Auto) 0.00 (0.00-0.50) K/uL Baso # (Auto) 0.00 (0.00-0.30) K/uL Abs Immat Gran (auto) 0.10 (0.00-0.30) K/uL Imm/Tot Granulo (auto) 0.7 % INR (0.91-1.10) VBG pH (7.32-7.43) VBG pCO2 (40-50) mmHG VBG pO2 (25-47) mmHG VBG HCO3 (21-28) mmol/L Sodium 141 (135-149) mmol/L Potassium 3.6 (3.6-5.1) mmol/L Chloride 108 (96-114) mmol/L Carbon Dioxide 24 (20-32) mmol/L BUN 39 H (7-30) mg/dL Creatinine 2.1 H (0.5-1.5) mg/dL Estimated GFR 27 ml/min Glucose 128 H (60-115) mg/dL Lactate (0.5-1.9) mmol/L Calcium 8.1 L (8.4-10.6) mg/dL Total Bilirubin (0.1-1.5) mg/dL AST (12-35) U/L ALT (4-35) U/L Alkaline Phosphatase (40-150) U/L Total Creatine Kinase (41-117) U/L Troponin I (0.01-0.04) ng/mL C-Reactive Protein (0.5-1.0) mg/dL Total Protein (6.0-8.3) g/dL Albumin (3.3-5.0) g/dL Procalcitonin (<0.50) ng/mL TSH 0.535 (0.270-4.200) uIU/mL Urine Color (Yellow) Urine Appearance (Clear) Urine pH (5.0-8.5) Ur Specific [place] (1.000-1.030) Urine Protein (Negative) Urine Glucose (UA) (Negative) Urine Ketones (Negative) Urine Blood (Negative) Urine Nitrite (Negative) Urine Bilirubin (Negative) Urine Urobilinogen (0.2-1.0) Ur Leukocyte Esterase (Negative) Urine RBC (0-2) Urine WBC (0-5) Ur Squamous Epith Cells (None-Few) Urine Bacteria (None) Urine Opiates Screen (Negative) Ur Oxycodone Screen (Negative) Urine Methadone Screen (Negative) Ur Propoxyphene Screen (Negative) Ur Barbiturates Screen (Negative) U Tricyclic Antidepress (Negative) Ur Phencyclidine Scrn (Negative) Ur Amphetamines Screen (Negative) U Methamphetamines Scrn (Negative) U Benzodiazepines Scrn (Negative) Urine Cocaine Screen (Negative) U Marijuana (THC) Screen (Negative) Ur Drug Screen Comment Ethyl Alcohol (0.01-0.03) % SARS-CoV-2 (PCR) (Negative) 12/28/21 12/28/21 Range/Units 01:20 02:35 WBC (4.50-11.00) K/uL RBC (4.00-5.20) m/uL Hgb (12.0-16.0) gm/dL Hct (33.0-51.0) % MCV (80-100) fL MCH (26-34) pg MCHC (32-36) gm/dL RDW Coeff of Arlin (11.5-15.5) % Plt Count (140-440) K/uL Neut % (Auto) (42.0-72.0) % Lymph % (Auto) (20-44) % [place] % (Auto) (0.0-11.0) % Eos % (Auto) (0.0-7.0) % Baso % (Auto) (0.0-3.0) % Neut # (Auto) (1.7-7.0) K/uL Lymph # (Auto) (0.90-2.90) K/uL [place] # (Auto) (0.00-0.90) K/UL Eos # (Auto) (0.00-0.50) K/uL Baso # (Auto) (0.00-0.30) K/uL Abs Immat Gran (auto) (0.00-0.30) K/uL Imm/Tot Granulo (auto) % INR 1.20 H (0.91-1.10) VBG pH (7.32-7.43) VBG pCO2 (40-50) mmHG VBG pO2 (25-47) mmHG VBG HCO3 (21-28) mmol/L Sodium (135-149) mmol/L Potassium (3.6-5.1) mmol/L Chloride (96-114) mmol/L Carbon Dioxide (20-32) mmol/L BUN (7-30) mg/dL Creatinine (0.5-1.5) mg/dL Estimated GFR ml/min Glucose (60-115) mg/dL Lactate 0.9 (0.5-1.9) mmol/L Calcium (8.4-10.6) mg/dL Total Bilirubin (0.1-1.5) mg/dL AST (12-35) U/L ALT (4-35) U/L Alkaline Phosphatase (40-150) U/L Total Creatine Kinase (41-117) U/L Troponin I (0.01-0.04) ng/mL C-Reactive Protein (0.5-1.0) mg/dL Total Protein (6.0-8.3) g/dL Albumin (3.3-5.0) g/dL Procalcitonin (<0.50) ng/mL TSH (0.270-4.200) uIU/mL Urine Color (Yellow) Urine Appearance (Clear) Urine pH (5.0-8.5) Ur Specific [place] (1.000-1.030) Urine Protein (Negative) Urine Glucose (UA) (Negative) Urine Ketones (Negative) Urine Blood (Negative) Urine Nitrite (Negative) Urine Bilirubin (Negative) Urine Urobilinogen (0.2-1.0) Ur Leukocyte Esterase (Negative) Urine RBC (0-2) Urine WBC (0-5) Ur Squamous Epith Cells (None-Few) Urine Bacteria (None) Urine Opiates Screen (Negative) Ur Oxycodone Screen (Negative) Urine Methadone Screen (Negative) Ur Propoxyphene Screen (Negative) Ur Barbiturates Screen (Negative) U Tricyclic Antidepress (Negative) Ur Phencyclidine Scrn (Negative) Ur Amphetamines Screen (Negative) U Methamphetamines Scrn (Negative) U Benzodiazepines Scrn (Negative) Urine Cocaine Screen (Negative) U Marijuana (THC) Screen (Negative) Ur Drug Screen Comment Ethyl Alcohol (0.01-0.03) % SARS-CoV-2 (PCR) (Negative) <Ann Marie Kothari MD - Last Filed: 12/29/21 11:05> Lab Results 12/27/21 12/27/21 12/27/21 Range/Units 15:21 15:21 15:50 WBC (4.50-11.00) K/uL RBC (4.00-5.20) m/uL Hgb (12.0-16.0) gm/dL Hct (33.0-51.0) % MCV (80-100) fL MCH (26-34) pg MCHC (32-36) gm/dL RDW Coeff of Arlin (11.5-15.5) % Plt Count (140-440) K/uL Neut % (Auto) (42.0-72.0) % Lymph % (Auto) (20-44) % [place] % (Auto) (0.0-11.0) % Eos % (Auto) (0.0-7.0) % Baso % (Auto) (0.0-3.0) % Neut # (Auto) (1.7-7.0) K/uL Lymph # (Auto) (0.90-2.90) K/uL [place] # (Auto) (0.00-0.90) K/UL Eos # (Auto) (0.00-0.50) K/uL Baso # (Auto) (0.00-0.30) K/uL Abs Immat Gran (auto) (0.00-0.30) K/uL Imm/Tot Granulo (auto) % INR (0.91-1.10) VBG pH (7.32-7.43) VBG pCO2 (40-50) mmHG VBG pO2 (25-47) mmHG VBG HCO3 (21-28) mmol/L Sodium (135-149) mmol/L Potassium (3.6-5.1) mmol/L Chloride (96-114) mmol/L Carbon Dioxide (20-32) mmol/L BUN (7-30) mg/dL Creatinine (0.5-1.5) mg/dL Estimated GFR ml/min Glucose (60-115) mg/dL Lactate (0.5-1.9) mmol/L Calcium (8.4-10.6) mg/dL Total Bilirubin (0.1-1.5) mg/dL AST (12-35) U/L ALT (4-35) U/L Alkaline Phosphatase (40-150) U/L Total Creatine Kinase (41-117) U/L Troponin I (0.01-0.04) ng/mL C-Reactive Protein (0.5-1.0) mg/dL Total Protein (6.0-8.3) g/dL Albumin (3.3-5.0) g/dL Procalcitonin (<0.50) ng/mL TSH (0.270-4.200) uIU/mL Urine Color Yellow (Yellow) Urine Appearance Clear (Clear) Urine pH 5.0 (5.0-8.5) Ur Specific [place] 1.020 (1.000-1.030) Urine Protein 1+ A (Negative) Urine Glucose (UA) Negative (Negative) Urine Ketones Trace A (Negative) Urine Blood Negative (Negative) Urine Nitrite Negative (Negative) Urine Bilirubin 2+ A (Negative) Urine Urobilinogen 1.0 (0.2-1.0) Ur Leukocyte Esterase Negative (Negative) Urine RBC 2-5 A (0-2) Urine WBC 5-10 A (0-5) Ur Squamous Epith Cells Few (None-Few) Urine Bacteria Few A (None) Urine Opiates Screen Negative (Negative) Ur Oxycodone Screen Negative (Negative) Urine Methadone Screen Negative (Negative) Ur Propoxyphene Screen Negative (Negative) Ur Barbiturates Screen Negative (Negative) U Tricyclic Antidepress Negative (Negative) Ur Phencyclidine Scrn Negative (Negative) Ur Amphetamines Screen POSITIVE A* (Negative) U Methamphetamines Scrn POSITIVE A* (Negative) U Benzodiazepines Scrn Negative (Negative) Urine Cocaine Screen Negative (Negative) U Marijuana (THC) Screen POSITIVE A* (Negative) Ur Drug Screen Comment See Note Ethyl Alcohol (0.01-0.03) % SARS-CoV-2 (PCR) Negative SARS-CoV-2 (Negative) 12/27/21 12/27/21 12/27/21 Range/Units 15:57 15:57 15:57 WBC 19.97 H (4.50-11.00) K/uL RBC 4.50 (4.00-5.20) m/uL Hgb 13.5 (12.0-16.0) gm/dL Hct 42.4 (33.0-51.0) % MCV 94 (80-100) fL MCH 30 (26-34) pg MCHC 32 (32-36) gm/dL RDW Coeff of Arlin 15.1 (11.5-15.5) % Plt Count 237 (140-440) K/uL Neut % (Auto) 85.3 H (42.0-72.0) % Lymph % (Auto) 5.4 L (20-44) % [place] % (Auto) 8.8 (0.0-11.0) % Eos % (Auto) 0.1 (0.0-7.0) % Baso % (Auto) 0.2 (0.0-3.0) % Neut # (Auto) 17.00 H (1.7-7.0) K/uL Lymph # (Auto) 1.10 (0.90-2.90) K/uL [place] # (Auto) 1.80 H (0.00-0.90) K/UL Eos # (Auto) 0.00 (0.00-0.50) K/uL Baso # (Auto) 0.00 (0.00-0.30) K/uL Abs Immat Gran (auto) 0.03 (0.00-0.30) K/uL Imm/Tot Granulo (auto) % INR (0.91-1.10) VBG pH 7.338 (7.32-7.43) VBG pCO2 43 (40-50) mmHG VBG pO2 46.0 (25-47) mmHG VBG HCO3 23 (21-28) mmol/L Sodium 140 (135-149) mmol/L Potassium 3.4 L (3.6-5.1) mmol/L Chloride 104 (96-114) mmol/L Carbon Dioxide 20 (20-32) mmol/L BUN 39 H (7-30) mg/dL Creatinine 3.2 H (0.5-1.5) mg/dL Estimated GFR 16 ml/min Glucose 163 H (60-115) mg/dL Lactate 1.4 (0.5-1.9) mmol/L Calcium 9.1 (8.4-10.6) mg/dL Total Bilirubin 0.5 (0.1-1.5) mg/dL AST 53 H (12-35) U/L ALT 24 (4-35) U/L Alkaline Phosphatase 119 (40-150) U/L Total Creatine Kinase 962 H (41-117) U/L Troponin I 0.01 (0.01-0.04) ng/mL C-Reactive Protein 3.6 H (0.5-1.0) mg/dL Total Protein 8.0 (6.0-8.3) g/dL Albumin 4.5 (3.3-5.0) g/dL Procalcitonin 0.30 (<0.50) ng/mL TSH (0.270-4.200) uIU/mL Urine Color (Yellow) Urine Appearance (Clear) Urine pH (5.0-8.5) Ur Specific [place] (1.000-1.030) Urine Protein (Negative) Urine Glucose (UA) (Negative) Urine Ketones (Negative) Urine Blood (Negative) Urine Nitrite (Negative) Urine Bilirubin (Negative) Urine Urobilinogen (0.2-1.0) Ur Leukocyte Esterase (Negative) Urine RBC (0-2) Urine WBC (0-5) Ur Squamous Epith Cells (None-Few) Urine Bacteria (None) Urine Opiates Screen (Negative) Ur Oxycodone Screen (Negative) Urine Methadone Screen (Negative) Ur Propoxyphene Screen (Negative) Ur Barbiturates Screen (Negative) U Tricyclic Antidepress (Negative) Ur Phencyclidine Scrn (Negative) Ur Amphetamines Screen (Negative) U Methamphetamines Scrn (Negative) U Benzodiazepines Scrn (Negative) Urine Cocaine Screen (Negative) U Marijuana (THC) Screen (Negative) Ur Drug Screen Comment Ethyl Alcohol < 0.01 L (0.01-0.03) % SARS-CoV-2 (PCR) (Negative) 12/27/21 12/27/21 12/27/21 Range/Units 15:57 22:27 22:27 WBC 20.61 H (4.50-11.00) K/uL RBC 3.76 L (4.00-5.20) m/uL Hgb 11.4 L (12.0-16.0) gm/dL Hct 35.7 (33.0-51.0) % MCV 95 (80-100) fL MCH 30 (26-34) pg MCHC 32 (32-36) gm/dL RDW Coeff of Arlin (11.5-15.5) % Plt Count 192 (140-440) K/uL Neut % (Auto) 80.2 H (42.0-72.0) % Lymph % (Auto) 11.5 L (20-44) % [place] % (Auto) 7.4 (0.0-11.0) % Eos % (Auto) 0.1 (0.0-7.0) % Baso % (Auto) 0.1 (0.0-3.0) % Neut # (Auto) 16.50 H (1.7-7.0) K/uL Lymph # (Auto) 2.40 (0.90-2.90) K/uL [place] # (Auto) 1.50 H (0.00-0.90) K/UL Eos # (Auto) 0.00 (0.00-0.50) K/uL Baso # (Auto) 0.00 (0.00-0.30) K/uL Abs Immat Gran (auto) 0.10 (0.00-0.30) K/uL Imm/Tot Granulo (auto) 0.7 % INR (0.91-1.10) VBG pH (7.32-7.43) VBG pCO2 (40-50) mmHG VBG pO2 (25-47) mmHG VBG HCO3 (21-28) mmol/L Sodium 141 (135-149) mmol/L Potassium 3.6 (3.6-5.1) mmol/L Chloride 108 (96-114) mmol/L Carbon Dioxide 24 (20-32) mmol/L BUN 39 H (7-30) mg/dL Creatinine 2.1 H (0.5-1.5) mg/dL Estimated GFR 27 ml/min Glucose 128 H (60-115) mg/dL Lactate (0.5-1.9) mmol/L Calcium 8.1 L (8.4-10.6) mg/dL Total Bilirubin (0.1-1.5) mg/dL AST (12-35) U/L ALT (4-35) U/L Alkaline Phosphatase (40-150) U/L Total Creatine Kinase (41-117) U/L Troponin I (0.01-0.04) ng/mL C-Reactive Protein (0.5-1.0) mg/dL Total Protein (6.0-8.3) g/dL Albumin (3.3-5.0) g/dL Procalcitonin (<0.50) ng/mL TSH 0.535 (0.270-4.200) uIU/mL Urine Color (Yellow) Urine Appearance (Clear) Urine pH (5.0-8.5) Ur Specific [place] (1.000-1.030) Urine Protein (Negative) Urine Glucose (UA) (Negative) Urine Ketones (Negative) Urine Blood (Negative) Urine Nitrite (Negative) Urine Bilirubin (Negative) Urine Urobilinogen (0.2-1.0) Ur Leukocyte Esterase (Negative) Urine RBC (0-2) Urine WBC (0-5) Ur Squamous Epith Cells (None-Few) Urine Bacteria (None) Urine Opiates Screen (Negative) Ur Oxycodone Screen (Negative) Urine Methadone Screen (Negative) Ur Propoxyphene Screen (Negative) Ur Barbiturates Screen (Negative) U Tricyclic Antidepress (Negative) Ur Phencyclidine Scrn (Negative) Ur Amphetamines Screen (Negative) U Methamphetamines Scrn (Negative) U Benzodiazepines Scrn (Negative) Urine Cocaine Screen (Negative) U Marijuana (THC) Screen (Negative) Ur Drug Screen Comment Ethyl Alcohol (0.01-0.03) % SARS-CoV-2 (PCR) (Negative) 12/28/21 12/28/21 Range/Units 01:20 02:35 WBC (4.50-11.00) K/uL RBC (4.00-5.20) m/uL Hgb (12.0-16.0) gm/dL Hct (33.0-51.0) % MCV (80-100) fL MCH (26-34) pg MCHC (32-36) gm/dL RDW Coeff of Arlin (11.5-15.5) % Plt Count (140-440) K/uL Neut % (Auto) (42.0-72.0) % Lymph % (Auto) (20-44) % [place] % (Auto) (0.0-11.0) % Eos % (Auto) (0.0-7.0) % Baso % (Auto) (0.0-3.0) % Neut # (Auto) (1.7-7.0) K/uL Lymph # (Auto) (0.90-2.90) K/uL [place] # (Auto) (0.00-0.90) K/UL Eos # (Auto) (0.00-0.50) K/uL Baso # (Auto) (0.00-0.30) K/uL Abs Immat Gran (auto) (0.00-0.30) K/uL Imm/Tot Granulo (auto) % INR 1.20 H (0.91-1.10) VBG pH (7.32-7.43) VBG pCO2 (40-50) mmHG VBG pO2 (25-47) mmHG VBG HCO3 (21-28) mmol/L Sodium (135-149) mmol/L Potassium (3.6-5.1) mmol/L Chloride (96-114) mmol/L Carbon Dioxide (20-32) mmol/L BUN (7-30) mg/dL Creatinine (0.5-1.5) mg/dL Estimated GFR ml/min Glucose (60-115) mg/dL Lactate 0.9 (0.5-1.9) mmol/L Calcium (8.4-10.6) mg/dL Total Bilirubin (0.1-1.5) mg/dL AST (12-35) U/L ALT (4-35) U/L Alkaline Phosphatase (40-150) U/L Total Creatine Kinase (41-117) U/L Troponin I (0.01-0.04) ng/mL C-Reactive Protein (0.5-1.0) mg/dL Total Protein (6.0-8.3) g/dL Albumin (3.3-5.0) g/dL Procalcitonin (<0.50) ng/mL TSH (0.270-4.200) uIU/mL Urine Color (Yellow) Urine Appearance (Clear) Urine pH (5.0-8.5) Ur Specific [place] (1.000-1.030) Urine Protein (Negative) Urine Glucose (UA) (Negative) Urine Ketones (Negative) Urine Blood (Negative) Urine Nitrite (Negative) Urine Bilirubin (Negative) Urine Urobilinogen (0.2-1.0) Ur Leukocyte Esterase (Negative) Urine RBC (0-2) Urine WBC (0-5) Ur Squamous Epith Cells (None-Few) Urine Bacteria (None) Urine Opiates Screen (Negative) Ur Oxycodone Screen (Negative) Urine Methadone Screen (Negative) Ur Propoxyphene Screen (Negative) Ur Barbiturates Screen (Negative) U Tricyclic Antidepress (Negative) Ur Phencyclidine Scrn (Negative) Ur Amphetamines Screen (Negative) U Methamphetamines Scrn (Negative) U Benzodiazepines Scrn (Negative) Urine Cocaine Screen (Negative) U Marijuana (THC) Screen (Negative) Ur Drug Screen Comment Ethyl Alcohol (0.01-0.03) % SARS-CoV-2 (PCR) (Negative) <Cooper Martins MD - Last Filed: 12/28/21 02:48> Imaging Data CT scan - head: Attestation: I have reviewed the pertinent imaging results. <Ann Marie Kothari MD - Last Filed: 12/29/21 11:05> My impression: I did visualize the head CT after was done and did see abnormality on the right side, called radiologist to have this read stat. <Ann Marie Kothari MD - Last Filed: 12/29/21 11:05> Radiologist's impression: Patient: JATINDER DE LA PAZ Facility:?[facility] Patient ID:?[id number] Site Patient ID:?[id number]. Site :?[id number] Study:?CT Head WITHOUT-12/27/2021 4:32:31 PM Ordering Physician:Gab Jesus Final Report: INDICATION: Altered mental status. COMPARISON: CT head 09/07/2018. TECHNIQUE: CT of the head without IV contrast. Coronal and sagittal reconstructions. FINDINGS: There is an acute hyperdense intraparenchymal hemorrhage in the high right parietal lobe measuring 1.8 x 1.5 x 1.4 cm (series 3, image 42 and series 7, image 46). Mild surrounding edema without significant mass effect or midline shift. No abnormal extra-axial fluid collection or evidence of acute infarct. Normal caliber ventricular system. Orbits and extraocular muscles are symmetric. The paranasal sinuses and mastoid air cells are clear. No acute fracture identified. Tiny soft tissue nodule along the superficial margin of the right parotid gland. Minimal soft tissue swelling overlying the left forehead. IMPRESSION: : 1. Acute intraparenchymal hemorrhage in the high right parietal lobe. Mild surrounding edema without significant mass effect or midline shift. 2. Minimal soft tissue swelling overlying the left forehead. 3. Findings discussed with Ann Marie Kothari at 5:28 p.m. on 12/27/2021. Please note that all CT scans at this facility use dose modulation, iterative reconstruction, and/or weight-based dosing when appropriate to reduce radiation dose to as low as reasonably achievable. Dictated by Traci Chaparro MD @ 12/27/2021 5:29:25 PM (Electronic Signature) <Ann Marie Kothari MD - Last Filed: 12/29/21 11:05> Chest x-ray: Attestation: I have reviewed the pertinent imaging results. <Ann Marie Kothari MD - Last Filed: 12/29/21 11:05> Radiologist's impression: Patient: JATINDER DE LA PAZ Facility:?[facility] Patient ID:?[id number] Site Patient ID:?[id number]. Site :?[id number] Study:?XRay Chest -12/27/2021 4:56:11 PM Ordering Physician:Gab Jesus Final Report: INDICATION: Fell; weakness. COMPARISON: None. TECHNIQUE: Portable AP chest. FINDINGS: Normal size cardiac silhouette. Clear lung amor with no evidence of acute pneumonic infiltrates or CHF. No pneumothorax or pleural effusion. IMPRESSION: Negative portable AP chest. Dictated by Joanna Stroud MD @ 12/27/2021 5:50:14 PM (Electronic Signature) <Ann Marie Kothari MD - Last Filed: 12/29/21 11:05> CT Chest/Ab/Pelvis: Attestation: I have reviewed the pertinent imaging results. <Ann Marie Kothari MD - Last Filed: 12/29/21 11:05> Radiologist's impression: Patient: JATINDER DE LA PAZ Facility:?[facility] Patient ID:?[id number] Site Patient ID:?[id number]. Site :?[id number] Study:?CT Chest/Abd/Pelvis WITHOUT-12/27/2021 7:35:45 PM Ordering Physician:Gab Jesus Final Report: INDICATION: Patient fell; hypotension; altered mental status; elevated WBC. Comparison: CT abdomen and pelvis with intravenous contrast February 23, 2019. TECHNIQUE: CT chest, abdomen and pelvis without intravenous or oral contrast; coronal and sagittal reformats. FINDINGS: No evidence of mediastinal hematoma. No pneumothorax or pleural effusion. Atelectatic changes both lung bases. Normal size cardiac silhouette without any pericardial effusion. No endobronchial pathology. No evidence of pleural effusion or chest wall pathology. No focal hepatic or splenic pathology. No pancreatic pathology. Gallbladder is unremarkable. No adrenal pathology. No kidneys stones or obstructive uropathy. No retroperitoneal lymphadenopathy. No evidence of abdominal or pelvic ascites. Postop changes lower lumbar spine. No evidence of intra-abdominal or retroperitoneal hematoma. Carr catheter in the urinary bladder. Nonobstructive dilatation of the colon; rule out ileus. IMPRESSION: 1. Negative unenhanced CT chest, abdomen and pelvis. 2. No findings on this CT to account for the patient`s clinical symptomatology. Please note that all CT scans at this facility use dose modulation, iterative reconstruction, and/or weight-based dosing when appropriate to reduce radiation dose to as low as reasonably achievable. Dictated by Joanna Stroud MD @ 12/27/2021 7:47:51 PM (Electronic Signature) <Ann Marie Kothari MD - Last Filed: 12/29/21 11:05> ECG Data Attestation: I personally reviewed and interpreted this ECG as follows: (Normal sinus rhythm, 81 beats per minute. Left bundle branch block, not new, QT corrected 511 milliseconds.) <Ann Marie Kothari MD - Last Filed: 12/29/21 11:05> Prior ECG tracings: available for review (From 2018) <Ann Marie Kothari MD - Last Filed: 12/29/21 11:05> Critical Care Time Critical Care Time Critical Care Time: Yes Attestation: The patient required my highest level preparedness to intervene emergently and I personally spent this critical care time directly and personally managing the patient. This critical care time included: Obtaining a history; Examining the patient; Pulse oximetry; Ordering and reviewing of studies; Arranging urgent treatment with development of a management plan; Evaluation of patients response to treatment; Frequent reassessment discussions with other providers. This critical care time was performed to assess and manage the high probability of imminent life-threatening deterioration that could result in multiorgan failure. It was exclusive of separate billable procedures and treating other patients and teaching time. <Ann Marie Kothari MD - Last Filed: 12/29/21 11:05> Yes (Critical care continued from prior provider) Attestation: The patient required my highest level preparedness to intervene emergently and I personally spent this critical care time directly and personally managing the patient. This critical care time included: Obtaining a history; Examining the patient; Pulse oximetry; Ordering and reviewing of studies; Arranging urgent treatment with development of a management plan; Evaluation of patients response to treatment; Frequent reassessment discussions with other providers. This critical care time was performed to assess and manage the high probability of imminent life-threatening deterioration that could result in multiorgan failure. It was exclusive of separate billable procedures and treating other patients and teaching time. Prolonged critical care time due to critical bed shortage states applied and inability to transfer patient out of the emergency department in a timely manner <Cooper Martins MD - Last Filed: 12/28/21 02:48> Total Critical Care Time in Minutes: 240 <Cooper Martins MD - Last Filed: 12/28/21 02:48> Discharge Plan Discharge Clinical Impression: Acute kidney injury, Intraparenchymal hemorrhage of brain, Sepsis, Polysubstance abuse <Ann Marie Kothari MD - Last Filed: 12/29/21 11:05> Patient Disposition: [facility] <Ann Marie Kothari MD - Last Filed: 12/29/21 11:05>
--- NOTE | 2021-12-27 15:44 | PC.NURSE ---
pt covered in dried stool down legs. pt incont of loose stool. clothing covered in urine and stool, cut off pt and thrown away. shirt wet and with multiple holes that appear like cigarette robin. pt cleaned, assist of 2 to roll pt. pt straight cathed for urine sample, urine dark ugo. pt falls asleep and snores but arouses easily to voice. pt answers I don't know to all questions. pt has bruises over most of body in varying healing stages.
[2021-12-27 15:49] LABS: Appearance Urine Clear (Clear); Bilirubin Urine 2+ (Negative); Blood Urine Negative (Negative); Color Urine Yellow (Yellow); Glucose Urine Negative (Negative); Ketones Urine Trace (Negative); Leukocyte Esterase Urine Negative (Negative); Nitrite Urine Negative (Negative); Protein Urine 1+ (Negative)
[2021-12-27 15:54] LABS: Barbiturate Screen Urine Negative (Negative); Benzodiazepines Screen Urine Negative (Negative); Cocaine Screen Urine Negative (Negative); Methadone Screen Urine Negative (Negative); Opiate Screen Urine Negative (Negative); Oxycodone Screen Urine Negative (Negative); Phencyclidine Screen Urine Negative (Negative); Tricyclic Antidepressant Urine Negative (Negative)
[2021-12-27 15:56] LABS: Amphetamine Screen Urine POSITIVE (Negative); Cannabinoid Screen Urine POSITIVE (Negative); Methamphetamines Screen Urine POSITIVE (Negative)
[2021-12-27] MEDS: 0.9 % SODIUM CHLORIDE 1000 ml 1,000 ML IV (16:00)
--- NOTE | 2021-12-27 16:05 | CRLHL7_ITS ---
For Patients: As a result of the Cures Act, medical imaging exams and procedure reports are released immediately into your electronic medical record. You may view this report before your referring provider. If you have questions, please contact your health care provider. INDICATION: Altered mental status. COMPARISON: CT head 09/07/2018. TECHNIQUE: CT of the head without IV contrast. Coronal and sagittal reconstructions. FINDINGS: There is an acute hyperdense intraparenchymal hemorrhage in the high right parietal lobe measuring 1.8 x 1.5 x 1.4 cm (series 3, image 42 and series 7, image 46). Mild surrounding edema without significant mass effect or midline shift. No abnormal extra-axial fluid collection or evidence of acute infarct. Normal caliber ventricular system. Orbits and extraocular muscles are symmetric. The paranasal sinuses and mastoid air cells are clear. No acute fracture identified. Tiny soft tissue nodule along the superficial margin of the right parotid gland. Minimal soft tissue swelling overlying the left forehead. IMPRESSION: : 1. Acute intraparenchymal hemorrhage in the high right parietal lobe. Mild surrounding edema without significant mass effect or midline shift. 2. Minimal soft tissue swelling overlying the left forehead. 3. Findings discussed with Ann Marie Kothari at 5:28 p.m. on 12/27/2021. Please note that all CT scans at this facility use dose modulation, iterative reconstruction, and/or weight-based dosing when appropriate to reduce radiation dose to as low as reasonably achievable. Dictated by Traci Chaparro MD @ 12/27/2021 5:29:25 PM (Electronically Signed)
[2021-12-27 16:08] LABS: Bacteria Urine Few; Squamous Epithelial Cell Urine Few (None-Few)
[2021-12-27 16:16] LABS: Lactate* 1.4 mmol/L (0.5-1.9)
--- NOTE | 2021-12-27 16:21 | CRLHL7_ITS ---
For Patients: As a result of the Century Cures Act, medical imaging exams and procedure reports are released immediately into your electronic medical record. You may view this report before your referring provider. If you have questions, please contact your health care provider. INDICATION: Fell; weakness. COMPARISON: None. TECHNIQUE: Portable AP chest. FINDINGS: Normal size cardiac silhouette. Clear lung amor with no evidence of acute pneumonic infiltrates or CHF. No pneumothorax or pleural effusion. IMPRESSION: Negative portable AP chest. Dictated by Joanna Stroud MD @ 12/27/2021 5:50:14 PM (Electronically Signed)
[2021-12-27 16:22] LABS: Basophils Percent Auto 0.2 % (0.0-3.0); Eosinophils Percent Auto 0.1 % (0.0-7.0); Hematocrit 42.4 % (33.0-51.0); Hemoglobin* 13.5 gm/dL (12.0-16.0); Immature Granulocytes Abs Auto 0.03 K/uL (0.00-0.30); Lymphocytes Percent Auto 5.4 % (20-44); Mean Corpuscular HGB Conc 32 gm/dL (32-36); Mean Corpuscular Hemoglobin 30 pg (26-34); Mean Corpuscular Volume 94 fL (80-100); Monocytes Percent Auto 8.8 % (0.0-11.0); Neutrophils Percent Auto 85.3 % (42.0-72.0); Platelet Count* 237 K/uL (140-440); RDW Coefficient of Variation % 15.1 % (11.5-15.5); White Blood Count* 19.97 K/uL (4.50-11.00)
[2021-12-27 16:29] LABS: Slide Review Reflex No
[2021-12-27] MEDS: 0.9 % SODIUM CHLORIDE 1000 ml 1,000 ML 125 ML IV (16:30)
[2021-12-27 16:45] LABS: Albumin* 4.5 g/dL (3.3-5.0); Chloride* 104 mmol/L (96-114)
[2021-12-27 16:46] LABS: Potassium* 3.4 mmol/L (3.6-5.1); Sodium* 140 mmol/L (135-149)
[2021-12-27 16:48] LABS: Alkaline Phosphatase* 119 U/L (40-150); Aspartate Amino Transferase* 53 U/L (12-35); Bilirubin Total* 0.5 mg/dL (0.1-1.5); Carbon Dioxide* 20 mmol/L (20-32); Creatinine* 3.2 mg/dL (0.5-1.5); Estimated Glomerular Filt Rate 16 ml/min
[2021-12-27 16:49] LABS: Alanine Aminotransferase* 24 U/L (4-35); Blood Urea Nitrogen* 39 mg/dL (7-30); Calcium* 9.1 mg/dL (8.4-10.6); Glucose* 163 mg/dL (60-115)
[2021-12-27 16:51] LABS: C Reactive Protein* 3.6 mg/dL (0.5-1.0)
--- NOTE | 2021-12-27 16:53 | ED.NURSE ---
1558-- went in room to start a saline lock #20 in the forearm area on left arm. able to draw labs and one blood culture from site and sent to lab. patient did respond to staff and talk. collected COVID swab from the right nare, not much response from patient but did react to pain and moaned. 1605--started second saline lock and collected the second blood culture and sent to lab. Hung a liter of normal saline one now infusing as the SBP 89. 1622--EKG done. patient is not responding to staff talking to patient and attempted a sternal rub GSC <8 notified the MD of concerns and Dr. Arizmendi is to see patient. 1625--Dr. Arizmendi is in the room agreed of the change and ordered a stat CT of head. Called imaging for this. 1633 taken patient to imaging via cart and staff assisted and stayed with patient. 1644--returned patient to ED 8 and applied ETCO2 at 3 liters via nc. 38-40 reading. patient is continues to not wake up and GSC <8. Placed a arambula cath 18 fr to gravity and first liter of fluids finished and SBP 101. Talking with Dr. Arizmendi wants to wait for read of ct and planning to intube patient. 1700-- patient remains VS stable at this time.
[2021-12-27 17:00] LABS: Troponin I* 0.01 ng/mL (0.01-0.04)
[2021-12-27 17:00] LABS: SARS PCR* Negative SARS-CoV-2 (Negative)
[2021-12-27 17:01] LABS: Ethanol* < 0.01 % (0.01-0.03)
[2021-12-27 17:20] LABS: TSH With Reflex to FT4* 0.535 uIU/mL (0.270-4.200)
--- NOTE | 2021-12-27 17:34 | ED.NURSE ---
patient is awake and sternal rub done on patient. woke up and talking to staff. denies drug use as confirmed positive for several drugs. patient is arousable with sternal rub. opened eyes and right pupil is larger than left eye.
--- NOTE | 2021-12-27 18:05 | ED.NURSE ---
Daughter Bobbi called wanting an update on patient and asked if able to update daughter and permission from patient was given. Sounds as if this am was nauseated, concerned about patient having a seizure today called EMS was on the floor unsure if fell as the patient has been falling a lot lately. was reported daughter that was twitching today. 3 months ago patient had fallen and had a head bleed was transferred to [facility] and has been home for about a month from rehab. Noted has bruises all over body and on the stomach is a bruise with a cut in the middle that has a scab over with no drainage noted. Bobbi Daughter would like to be called with updates or if patient is transferred to another facility.
[2021-12-27 18:26] LABS: HCO3 VBG 23 mmol/L (21-28); PCO2 VBG 43 mmHG (40-50); pH VBG 7.338 (7.32-7.43)
[2021-12-27 18:32] LABS: Creatine Kinase* 962 U/L (41-117)
--- NOTE | 2021-12-27 18:54 | ED.NURSE ---
patient is arousable with rubbing the chest and talking loud to patient will open eyes up and verbally communicate. patient is trending down with SBP 80's and Dr. Arizmendi is aware and talking to neuro consult now.
--- NOTE | 2021-12-27 19:04 | ED.NURSE ---
patient continues to be trending down with BP and Dr. Arizmendi is aware. ordered bolus 1000cc now and reevaluate. patient continues to be arousable when call name and rub chest. pupils are equal now.
--- NOTE | 2021-12-27 19:05 | CRLHL7_ITS ---
For Patients: As a result of the Century Cures Act, medical imaging exams and procedure reports are released immediately into your electronic medical record. You may view this report before your referring provider. If you have questions, please contact your health care provider. INDICATION: Patient fell; hypotension; altered mental status; elevated WBC. Comparison: CT abdomen and pelvis with intravenous contrast February 23, 2019. TECHNIQUE: CT chest, abdomen and pelvis without intravenous or oral contrast; coronal and sagittal reformats. FINDINGS: No evidence of mediastinal hematoma. No pneumothorax or pleural effusion. Atelectatic changes both lung bases. Normal size cardiac silhouette without any pericardial effusion. No endobronchial pathology. No evidence of pleural effusion or chest wall pathology. No focal hepatic or splenic pathology. No pancreatic pathology. Gallbladder is unremarkable. No adrenal pathology. No kidneys stones or obstructive uropathy. No retroperitoneal lymphadenopathy. No evidence of abdominal or pelvic ascites. Postop changes lower lumbar spine. No evidence of intra-abdominal or retroperitoneal hematoma. Carr catheter in the urinary bladder. Nonobstructive dilatation of the colon; rule out ileus. IMPRESSION: 1. Negative unenhanced CT chest, abdomen and pelvis. 2. No findings on this CT to account for the patient`s clinical symptomatology. Please note that all CT scans at this facility use dose modulation, iterative reconstruction, and/or weight-based dosing when appropriate to reduce radiation dose to as low as reasonably achievable. Dictated by Joanna Stroud MD @ 12/27/2021 7:47:51 PM (Electronically Signed)
[2021-12-27] MEDS: CEFEPIME HCL 2 GM in 0.9 % SODIUM CHLORIDE Mini-bag 100 ML IVPB (20:17)
--- NOTE | 2021-12-27 22:25 | CRLHL7_ITS ---
For Patients: As a result of the Century Cures Act, medical imaging exams and procedure reports are released immediately into your electronic medical record. You may view this report before your referring provider. If you have questions, please contact your health care provider. INDICATION: Follow-up intracranial hemorrhage TECHNIQUE: CT head without contrast. COMPARISON: December 27, 2021 FINDINGS: CSF spaces: Within normal limits for age. Brain parenchyma: 1.2 x 1.4 x 1.5 cm intraparenchymal hematoma in the right parietal lobe, previously 1.8 x 1.5 x 1.4 cm. The light-white differentiation is normal. No sign of mass or midline shift. Skull base and calvarium: The visualized paranasal sinuses and mastoid air cells demonstrate no acute or significant findings. The visualized orbits are grossly unremarkable. No skull fractures. IMPRESSION: Slight interval decrease in a right parietal lobe intraparenchymal hematoma. No new intracranial hemorrhage identified. Please note that all CT scans at this facility use dose modulation, iterative reconstruction, and/or weight-based dosing when appropriate to reduce radiation dose to as low as reasonably achievable. Dictated by Melissa Villalobos MD @ 12/28/2021 12:46:25 AM (Electronically Signed)
[2021-12-27 22:44] LABS: Chloride* 108 mmol/L (96-114); Potassium* 3.6 mmol/L (3.6-5.1); Sodium* 141 mmol/L (135-149)
[2021-12-27 22:47] LABS: Blood Urea Nitrogen* 39 mg/dL (7-30); Calcium* 8.1 mg/dL (8.4-10.6); Carbon Dioxide* 24 mmol/L (20-32); Creatinine* 2.1 mg/dL (0.5-1.5); Estimated Glomerular Filt Rate 27 ml/min; Glucose* 128 mg/dL (60-115)
[2021-12-27 22:49] LABS: Hematocrit 35.7 % (33.0-51.0); Hemoglobin* 11.4 gm/dL (12.0-16.0); Lymphocytes Percent Auto 11.5 % (20-44); Mean Corpuscular HGB Conc 32 gm/dL (32-36); Mean Corpuscular Hemoglobin 30 pg (26-34); Mean Corpuscular Volume 95 fL (80-100); Monocytes Percent Auto 7.4 % (0.0-11.0); Neutrophils Percent Auto 80.2 % (42.0-72.0); Platelet Count* 192 K/uL (140-440); Red Blood Count 3.76 m/uL (4.00-5.20); White Blood Count* 20.61 K/uL (4.50-11.00)
[2021-12-27 22:50] LABS: Basophils Percent Auto 0.1 % (0.0-3.0); Eosinophils Percent Auto 0.1 % (0.0-7.0); Immature Granulocytes Pct Auto 0.7 %; Slide Review Reflex No
[2021-12-28] VITALS (17 sets, daily range): BP systolic 94–117; BP diastolic 53–76; PULSE 65–79; O2SAT 92–99
--- NOTE | 2021-12-28 01:28 | CRLHL7_ITS ---
For Patients: As a result of the Century Cures Act, medical imaging exams and procedure reports are released immediately into your electronic medical record. You may view this report before your referring provider. If you have questions, please contact your health care provider. INDICATION: Fall, intracranial hemorrhage TECHNIQUE: CT cervical spine without contrast. COMPARISON: August 13, 2013 FINDINGS: Vertebral alignment: Alignment is normal. Vertebrae: There are no fractures or suspicious bony lesions. Discs and facet joints: Disc spacers aunt C4-C5 and C5-C6. Anterior plate and screw hardware at C6-C7. Moderate to severe multilevel degenerative facet disease. Extraspinal findings: Paraspinous soft tissues are unremarkable. IMPRESSION: 1. No sign of acute injury. 2. Multilevel degenerative facet changes. 3. Postoperative changes at C4-C7. Please note that all CT scans at this facility use dose modulation, iterative reconstruction, and/or weight-based dosing when appropriate to reduce radiation dose to as low as reasonably achievable. Dictated by Melissa Villalobos MD @ 12/28/2021 2:53:00 AM (Electronically Signed)
[2021-12-28 01:36] LABS: Lactate* 0.9 mmol/L (0.5-1.9)
--- NOTE | 2021-12-28 02:24 | ED.NURSE ---
Rn to Rn report given.
[2021-12-28 02:57] LABS: Prothrombin Time 15.7 Seconds
--- NOTE | 2021-12-28 03:54 | ED.NURSE ---
EMS arrived, pt taken to [facility].
--- NOTE | 2021-12-28 03:56 | ED.NURSE ---
attempt was made to contact daughter, Bobbi, about pt transfer. No contact was made.
--- NOTE | 2021-12-28 08:35 | ED.NURSE ---
nancy, daughter, called and was informed that she was transferred to [facility].
== END 2021-12-28 03:53 | disposition short-term general hospital (02) ==
PROVIDERS: Family Medicine; Emergency Provider Family Medicine
DX: N17.9 Acute kidney failure, unspecified (principal); I61.8 Other nontraumatic intracerebral hemorrhage; A41.9 Sepsis, unspecified organism; F19.10 Other psychoactive substance abuse, uncomplicated; W19.XXXA Unspecified fall, initial encounter
CPT/HCPCS: 36415; 70450; 71045; 71250; 72125; 74176; 80048; 80053; 80306; 81001; 82077; 82550; 82803; 83605; 84145; 84443; 84484; 85025; 85610; 86140; 87040; 87045; 87046; 87086; 87427; 87493; 87635; 93005; 94761; 96365; 96366; 96375; 99285; 99291; 99292; G0390; J0692; J3370; J7030; J7120

== ENCOUNTER 2021-12-28 03:35 | Outpatient (CLI) | payer MEDICARE, SELFPAY | END 2021-12-28 03:36 | disposition home or self-care (01) | LOC: AMB 01-30 11:17 | PROVIDERS: Visit Provider Family Medicine | DX: I95.9 Hypotension, unspecified (principal); G93.41 Metabolic encephalopathy; A41.9 Sepsis, unspecified organism | CPT/HCPCS: A0425; A0426 ==

== ENCOUNTER 2022-01-17 00:40 | Outpatient (CLI) | payer MEDICARE, SELFPAY | END 2022-01-17 00:41 | disposition home or self-care (01) | LOC: AMB 01-31 09:42 | PROVIDERS: Visit Provider Family Medicine | DX: R41.82 Altered mental status, unspecified (principal); G40.909 Epilepsy, unspecified, not intractable, without status epilepticus | CPT/HCPCS: A0425; A0427 ==

== ENCOUNTER 2022-01-17 01:14 | Inpatient (IN) | payer MEDICARE, SELFPAY ==
[2022-01-17] VITALS (39 sets, daily range): BP systolic 79–116; BP diastolic 47–78; PULSE 51–95; RESP 10–22; TEMP 35.9–36.8; O2SAT 91–96; BMI 26.6; BMI 27.9
--- NOTE | 2022-01-17 01:30 | CRLHL7_ITS ---
For Patients: As a result of the Century Cures Act, medical imaging exams and procedure reports are released immediately into your electronic medical record. You may view this report before your referring provider. If you have questions, please contact your health care provider. INDICATION: Altered mental status TECHNIQUE: Head CT without contrast. COMPARISON: December 27, 2021 FINDINGS: CSF spaces: Within normal limits for age. Brain parenchyma: Slight interval decrease in size of an intraparenchymal hematoma within the right frontal lobe. Mild surrounding edema. No midline shift. No new areas of intracranial hemorrhage identified. There are nonspecific low attenuation white matter changes consistent with chronic microvascular disease. Skull base and calvarium: Mucosal thickening in the right maxillary sinus and a few right ethmoid air cells. The mastoid air cells demonstrate no acute or significant findings. The visualized orbits are grossly unremarkable. No skull fractures. There is intracranial atherosclerosis. IMPRESSION: Slight interval decrease in size of intraparenchymal hematoma in the right frontal lobe with mild surrounding edema. No new findings identified. Please note that all CT scans at this facility use dose modulation, iterative reconstruction, and/or weight-based dosing when appropriate to reduce radiation dose to as low as reasonably achievable. Dictated by Melissa Villalobos MD @ 01/17/2022 1:57:14 AM (Electronically Signed)
--- NOTE | 2022-01-17 01:43 | ED.AMS ---
HPI - Altered Mental Status General Chief Complaint: Altered Mental Status Stated Complaint: Seizure-like activity Time Seen by Provider: 01/17/22 01:15 Source: EMS Mode of arrival: EMS Limitations: altered mental status History of Present Illness HPI narrative: 61-year-old female with known prior history of drug use presents to the emergency department, brought in by EMS. Family reportedly called EMS after she was less responsive they did not give a specific timeline or thought of etiology. This is a known dog house in our area that is in [facility]. Patient has multiple chronic medical problems. EMS reports that she does have a medication list but when they arrived all of her pills were put into 1 bottle with quite clear that there were compliance issues. There are no signs of any injury or trauma observed. Patient will arouse slightly and grunt answers to questions but is not clearly answering questions at this time. I cannot trust her reliability with answering questions but she does deny injury, trauma, pain tonight. Family does not accompany her nor show up at the emergency room to help answer questions tonight. S medical history is notable for chronic Suboxone use, depression, hypertension, hyperlipidemia. It is reported that she also has type 2 diabetes but I do not see any prescription medications to reflect this on her medication list today. Medication list is notable for amlodipine, baclofen, Suboxone which is written is 4 films per day which would be a really impressively high amount. Lisinopril, nicotine patch, oxybutynin, Protonix, Paxil, Lyrica, rosuvastatin, senna. The medication list provided is at least 5-month-old. I review previous records from our old system and see that she has a history of peripheral vascular disease. 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 I also review records and see that she was evaluated in our facility about 3 weeks ago, had an intracranial hemorrhage at that time and was transferred to [place] ICU. I do not have follow-up records regarding this. ROS is completely unreliable from this patient. Other than the altered mental status and possibly postictal state her family, no additional information is available nor useful. Related Data Home Medications Medication Instructions Recorded Confirmed amlodipine 5 mg tablet 5 mg PO DAILY 01/17/22 01/17/22 baclofen 5 mg tablet 5 mg PO TID 01/17/22 01/17/22 buprenorphine 8 mg-naloxone 2 mg 1 film sublingual QID 01/17/22 01/17/22 sublingual film (Suboxone) lisinopril 20 mg tablet 20 mg PO DAILY 01/17/22 01/17/22 nicotine patch 01/17/22 oxybutynin chloride 5 mg 5 mg PO DAILY 01/17/22 01/17/22 tablet,extended release 24 hr pantoprazole 40 mg tablet,delayed 40 mg PO BID 01/17/22 01/17/22 release paroxetine HCl 30 mg tablet 60 mg PO DAILY 01/17/22 01/17/22 pregabalin 150 mg capsule (Lyrica) 150 mg PO BID 01/17/22 01/17/22 rosuvastatin 5 mg tablet 5 mg PO DAILY 01/17/22 01/17/22 sennosides 8.6 mg capsule (senna) 8.6 mg PO BID 01/17/22 01/17/22 Allergies Allergy/AdvReac Type Severity Reaction Status Date / Time celecoxib Allergy Unknown Verified 01/17/22 03:19 ibuprofen [From Motrin] Allergy Unknown Verified 01/17/22 03:19 naproxen Allergy Unknown Verified 01/17/22 03:19 acetaminophen [From Tylenol] Allergy Unknown Verified 01/17/22 03:19 atorvastatin [From Lipitor] Allergy Verified 01/17/22 03:19 buspirone [From BuSpar] Allergy Unknown Verified 01/17/22 03:19 gabapentin [From Neurontin] Allergy Verified 01/17/22 03:19 sertraline [From Zoloft] Allergy Unknown Verified 01/17/22 03:19 prednisone AdvReac gingivitis Verified 01/17/22 03:19 [facility] Social History Smoking Status: Unknown if ever smoked Non-prescribed substance use: denies use service: No Exam Const: Vital Signs, click to edit/add: Vital Signs - 24 hr 01/17/22 01:19 Temperature 97.2 F L Pulse Rate [Left P ulse Oximeter] 66 Respiratory Rate 20 Blood Pressure [Ri ght Upper Arm] 109/70 Pulse Oximetry 96 Oxygen Delivery Me thod Room Air Documenting provider has reviewed patient's vital signs: yes Exam limitations: altered mental status Other: GCS initially 8. Will respond to painful stimuli by clinching or opening eyes and withdrawing away from painful areas. Incomprehensible words. HENMT: Common normals: normocephalic and head/scalp atraumatic Head and scalp: normocephalic and atraumatic Face and sinus: normal facial exam Mouth: oral and palatal mucosa normal Throat: posterior oropharynx normal Eye: Other: Pupils are sluggishly reactive but equal. Does not visually track me through the room. Does not focus on my face. No obvious icterus. Neck & C-Spine: Common normals: no lymphadenopathy Resp: Common normals: normal respiratory effort, no use of accessory muscles and clear to auscultation bilaterally Auscultation: clear to auscultation bilaterally Cardio: Common normals: regular rate, regular rhythm, S1 normal heart sound and no murmurs Rate: regular rate Rhythm: regular rhythm Heart sounds: S1 normal GI: Common normals: Normal to inspection, nondistended, normoactive bowel sounds present, soft to palpation and no hepatosplenomegaly Palpation: soft and no hepatosplenomegaly Extremity: Other: [id number] amputation on left, toe amputations on the right, well-healed, no signs of obvious infection. Neuro: Other: Withdraws from painful stimuli, will act annoyed and grunt in response to repeated questions. Mumbles answers seeming to be a no context Skin: Common normals: no rashes or lesions noted General skin exam: no rashes or lesions noted Course Vital Signs Vital signs: Initial Vital Signs Temperature 97.2 F L 01/17/22 01:19 Temperature Source Temporal Artery Scan 01/17/22 01:19 Pulse Rate 66 01/17/22 01:19 Respiratory Rate 20 01/17/22 01:19 Blood Pressure 109/70 01/17/22 01:19 Blood Pressure Mean 83 01/17/22 01:19 Blood Pressure Position Supine 01/17/22 01:19 Pulse Oximetry 96 01/17/22 01:19 Oxygen Delivery Method 01/17/22 01:19 Vital Signs Temperature 97.2 F L 01/17/22 01:19 Pulse Rate 66 01/17/22 01:19 Respiratory Rate 20 01/17/22 01:19 Blood Pressure 109/70 01/17/22 01:19 Pulse Oximetry 96 01/17/22 01:19 Oxygen Delivery Method 01/17/22 01:19 Temperature 97.2 F L 11/01/22 01:19 Pulse Rate 66 01/17/22 01:19 Respiratory Rate 20 01/17/22 01:19 Blood Pressure 109/70 01/17/22 01:19 Pulse Oximetry 96 01/17/22 01:19 Oxygen Delivery Method 01/17/22 01:19 MDM - Altered Mental Status MDM Narrative Medical decision making narrative: Discharge summary reviewed from [facility] from earlier in the month. It appears as though the hypotension is an ongoing issue. Recently had EEG with no evidence of seizure as well. Normal CATHRYN reviewed as well. Patient noted to have significant acute kidney injury today, even worse than previous values. I suspect that her continued use of her muscle relaxants, chronic pain medications, Lyrica and potentially still taking her lisinopril with poor oral intake is causing her altered mental status. Her catheterized urine sample is strongly suspicious for infection with 2+ leukocyte esterase and bacteria present. I think that she may be in urosepsis. Will start Rocephin. Remainder of labs other than the acute kidney failure are reassuring. She will need hospitalization. It may be a few days before she comes out of her obtunded fog, I do not think that the hemorrhage on CT scan clinically explains any of her current symptoms. This does appear improved over the last couple of weeks. Abnormal toxicology screen noted as well. This time I do not think she would benefit from intubation. But will need close monitoring and if she is not adequately protecting her airway may require intubation. Repeat evaluation 0415. Patient will still withdraw and localizes to painful stimuli, breathing remains regular and steady, very sleepy. She will now localizes visual contact on my face with painful stimuli and then drift off again quickly. Oxygen saturations remained normal without any supplemental oxygen. Labs are reviewed. I a.m. suspicious that that urinalysis which with a catheterized sample is consistent with infection. This in the setting of an elevated creatinine does raise the suspicion for pyelonephritis. I do more so suspect significant toxic ingestion with poor oral intake in the setting of renal failure and continued use of her lisinopril as the etiology of her symptoms. She has been given normal saline, blood pressures remain well controlled, mild hypotension has resolved. She would benefit from hospitalization for IV fluids, renal support, time to allow her medications to get out of her system and repeat evaluation. Consider MRI if her mental status is not improving. Do not suspect that the previous intracranial hemorrhage is contributing to her symptoms at this time. We can always consider repeat CT of we have clinical suspicion. Will contact the hospitalist service for admission. 35 minutes of critical care time were spent upon initial and repeat assessment due to altered mental status and hypotension. Update 0 500, has been accepted by the hospitalist. Medical Records Attestation: I reviewed the patient's medical records. Medical records narrative: Hospitalization from [place] earlier this month, recent ED records as well Lab Data Attestation: I reviewed the patient's lab results. Labs: Lab Results 01/17/22 01/17/22 01/17/22 Range/Units 01:30 01:30 01:54 WBC 11.09 H (4.50-11.00) K/uL RBC 4.56 (4.00-5.20) m/uL Hgb 13.7 (12.0-16.0) gm/dL Hct 41.8 (33.0-51.0) % MCV 92 (80-100) fL MCH 30 (26-34) pg MCHC 33 (32-36) gm/dL RDW Coeff of Arlin 15.4 (11.5-15.5) % Plt Count 239 (140-440) K/uL Neut % (Auto) 75.3 H (42.0-72.0) % Lymph % (Auto) 14.6 L (20-44) % [place] % (Auto) 8.5 (0.0-11.0) % Eos % (Auto) 0.9 (0.0-7.0) % Baso % (Auto) 0.5 (0.0-3.0) % Neut # (Auto) 8.40 H (1.7-7.0) K/uL Lymph # (Auto) 1.60 (0.90-2.90) K/uL [place] # (Auto) 0.90 (0.00-0.90) K/UL Eos # (Auto) 0.10 (0.00-0.50) K/uL Baso # (Auto) 0.10 (0.00-0.30) K/uL Abs Immat Gran (auto) 0.02 (0.00-0.30) K/uL VBG pH (7.32-7.43) VBG pCO2 (40-50) mmHG VBG pO2 (25-47) mmHG VBG HCO3 (21-28) mmol/L Sodium (135-149) mmol/L Potassium (3.6-5.1) mmol/L Chloride (96-114) mmol/L Carbon Dioxide (20-32) mmol/L BUN (7-30) mg/dL Creatinine (0.5-1.5) mg/dL Estimated Creat Clear Estimated GFR ml/min Glucose (60-115) mg/dL Lactate (0.5-1.9) mmol/L Calcium (8.4-10.6) mg/dL Total Bilirubin (0.1-1.5) mg/dL AST (12-35) U/L ALT (4-35) U/L Alkaline Phosphatase (40-150) U/L Ammonia (13.1-30.0) umol/L Troponin I (0.01-0.04) ng/mL Total Protein (6.0-8.3) g/dL Albumin (3.3-5.0) g/dL Urine Color Yellow (Yellow) Urine Appearance Slightly Cloudy A (Clear) Urine pH 5.5 (5.0-8.5) Ur Specific [place] 1.025 (1.000-1.030) Urine Protein 1+ A (Negative) Urine Glucose (UA) Negative (Negative) Urine Ketones 1+ A (Negative) Urine Blood Negative (Negative) Urine Nitrite Negative (Negative) Urine Bilirubin 2+ A (Negative) Urine Urobilinogen 1.0 (0.2-1.0) Ur Leukocyte Esterase 2+ A (Negative) Urine RBC 5-10 A (0-2) Urine WBC 25-50 A (0-5) Ur Squamous Epith Cells Few (None-Few) Amorphous Sediment Moderate A (None) Urine Bacteria Moderate A (None) Urine Mucus Moderate A (None) Urine Opiates Screen Negative (Negative) Ur Oxycodone Screen Negative (Negative) Urine Methadone Screen Negative (Negative) Ur Propoxyphene Screen Negative (Negative) Ur Barbiturates Screen Negative (Negative) U Tricyclic Antidepress Negative (Negative) Ur Phencyclidine Scrn Negative (Negative) Ur Amphetamines Screen Negative (Negative) U Methamphetamines Scrn POSITIVE A* (Negative) U Benzodiazepines Scrn Negative (Negative) Urine Cocaine Screen Negative (Negative) U Marijuana (THC) Screen POSITIVE A* (Negative) Ur Drug Screen Comment See Note Ethyl Alcohol (0.01-0.03) % SARS-CoV-2 (PCR) (Negative) Influenza Type A (PCR) (Negative) Influenza Type B (PCR) (Negative) POC Troponin I (0.01-0.04) ng/ml 01/17/22 01/17/22 01/17/22 Range/Units 01:54 01:54 01:54 WBC (4.50-11.00) K/uL RBC (4.00-5.20) m/uL Hgb (12.0-16.0) gm/dL Hct (33.0-51.0) % MCV (80-100) fL MCH (26-34) pg MCHC (32-36) gm/dL RDW Coeff of Arlin (11.5-15.5) % Plt Count (140-440) K/uL Neut % (Auto) (42.0-72.0) % Lymph % (Auto) (20-44) % [place] % (Auto) (0.0-11.0) % Eos % (Auto) (0.0-7.0) % Baso % (Auto) (0.0-3.0) % Neut # (Auto) (1.7-7.0) K/uL Lymph # (Auto) (0.90-2.90) K/uL [place] # (Auto) (0.00-0.90) K/UL Eos # (Auto) (0.00-0.50) K/uL Baso # (Auto) (0.00-0.30) K/uL Abs Immat Gran (auto) (0.00-0.30) K/uL VBG pH 7.309 L (7.32-7.43) VBG pCO2 52 H (40-50) mmHG VBG pO2 44.9 (25-47) mmHG VBG HCO3 26 (21-28) mmol/L Sodium 141 (135-149) mmol/L Potassium 3.9 (3.6-5.1) mmol/L Chloride 102 (96-114) mmol/L Carbon Dioxide 23 (20-32) mmol/L BUN 30 (7-30) mg/dL Creatinine 2.7 H (0.5-1.5) mg/dL Estimated Creat Clear 23.45 Estimated GFR 20 ml/min Glucose 121 H (60-115) mg/dL Lactate 1.3 (0.5-1.9) mmol/L Calcium 9.4 (8.4-10.6) mg/dL Total Bilirubin 0.6 (0.1-1.5) mg/dL AST 26 (12-35) U/L ALT 17 (4-35) U/L Alkaline Phosphatase 108 (40-150) U/L Ammonia < 9.0 L (13.1-30.0) umol/L Troponin I 0.03 (0.01-0.04) ng/mL Total Protein 8.3 (6.0-8.3) g/dL Albumin 4.6 (3.3-5.0) g/dL Urine Color (Yellow) Urine Appearance (Clear) Urine pH (5.0-8.5) Ur Specific [place] (1.000-1.030) Urine Protein (Negative) Urine Glucose (UA) (Negative) Urine Ketones (Negative) Urine Blood (Negative) Urine Nitrite (Negative) Urine Bilirubin (Negative) Urine Urobilinogen (0.2-1.0) Ur Leukocyte Esterase (Negative) Urine RBC (0-2) Urine WBC (0-5) Ur Squamous Epith Cells (None-Few) Amorphous Sediment (None) Urine Bacteria (None) Urine Mucus (None) Urine Opiates Screen (Negative) Ur Oxycodone Screen (Negative) Urine Methadone Screen (Negative) Ur Propoxyphene Screen (Negative) Ur Barbiturates Screen (Negative) U Tricyclic Antidepress (Negative) Ur Phencyclidine Scrn (Negative) Ur Amphetamines Screen (Negative) U Methamphetamines Scrn (Negative) U Benzodiazepines Scrn (Negative) Urine Cocaine Screen (Negative) U Marijuana (THC) Screen (Negative) Ur Drug Screen Comment Ethyl Alcohol < 0.01 L (0.01-0.03) % SARS-CoV-2 (PCR) (Negative) Influenza Type A (PCR) (Negative) Influenza Type B (PCR) (Negative) POC Troponin I (0.01-0.04) ng/ml 01/17/22 01/17/22 Range/Units 01:54 02:11 WBC (4.50-11.00) K/uL RBC (4.00-5.20) m/uL Hgb (12.0-16.0) gm/dL Hct (33.0-51.0) % MCV (80-100) fL MCH (26-34) pg MCHC (32-36) gm/dL RDW Coeff of Arlin (11.5-15.5) % Plt Count (140-440) K/uL Neut % (Auto) (42.0-72.0) % Lymph % (Auto) (20-44) % [place] % (Auto) (0.0-11.0) % Eos % (Auto) (0.0-7.0) % Baso % (Auto) (0.0-3.0) % Neut # (Auto) (1.7-7.0) K/uL Lymph # (Auto) (0.90-2.90) K/uL [place] # (Auto) (0.00-0.90) K/UL Eos # (Auto) (0.00-0.50) K/uL Baso # (Auto) (0.00-0.30) K/uL Abs Immat Gran (auto) (0.00-0.30) K/uL VBG pH (7.32-7.43) VBG pCO2 (40-50) mmHG VBG pO2 (25-47) mmHG VBG HCO3 (21-28) mmol/L Sodium (135-149) mmol/L Potassium (3.6-5.1) mmol/L Chloride (96-114) mmol/L Carbon Dioxide (20-32) mmol/L BUN (7-30) mg/dL Creatinine (0.5-1.5) mg/dL Estimated Creat Clear Estimated GFR ml/min Glucose (60-115) mg/dL Lactate (0.5-1.9) mmol/L Calcium (8.4-10.6) mg/dL Total Bilirubin (0.1-1.5) mg/dL AST (12-35) U/L ALT (4-35) U/L Alkaline Phosphatase (40-150) U/L Ammonia (13.1-30.0) umol/L Troponin I (0.01-0.04) ng/mL Total Protein (6.0-8.3) g/dL Albumin (3.3-5.0) g/dL Urine Color (Yellow) Urine Appearance (Clear) Urine pH (5.0-8.5) Ur Specific [place] (1.000-1.030) Urine Protein (Negative) Urine Glucose (UA) (Negative) Urine Ketones (Negative) Urine Blood (Negative) Urine Nitrite (Negative) Urine Bilirubin (Negative) Urine Urobilinogen (0.2-1.0) Ur Leukocyte Esterase (Negative) Urine RBC (0-2) Urine WBC (0-5) Ur Squamous Epith Cells (None-Few) Amorphous Sediment (None) Urine Bacteria (None) Urine Mucus (None) Urine Opiates Screen (Negative) Ur Oxycodone Screen (Negative) Urine Methadone Screen (Negative) Ur Propoxyphene Screen (Negative) Ur Barbiturates Screen (Negative) U Tricyclic Antidepress (Negative) Ur Phencyclidine Scrn (Negative) Ur Amphetamines Screen (Negative) U Methamphetamines Scrn (Negative) U Benzodiazepines Scrn (Negative) Urine Cocaine Screen (Negative) U Marijuana (THC) Screen (Negative) Ur Drug Screen Comment Ethyl Alcohol (0.01-0.03) % SARS-CoV-2 (PCR) Negative SARS-CoV-2 (Negative) Influenza Type A (PCR) Negative PCR FLU A (Negative) Influenza Type B (PCR) Negative PCR FLU B (Negative) POC Troponin I 0.01 (0.01-0.04) ng/ml ABG Data Attestation: I personally reviewed and interpreted this ABG as follows: Interpretation: Very mild acidosis and CO2 retention, likely chronic. ECG Data Attestation: I personally reviewed and interpreted this ECG as follows: Interpretation: Normal sinus rhythm with no significant ST or T-wave abnormalities. Normal R-wave progression. No LVH. Normal axis. Critical Care Time Critical Care Time Critical Care Time: Yes Attestation: The patient required my highest level preparedness to intervene emergently and I personally spent this critical care time directly and personally managing the patient. This critical care time included: Obtaining a history; Examining the patient; Pulse oximetry; Ordering and reviewing of studies; Arranging urgent treatment with development of a management plan; Evaluation of patients response to treatment; Frequent reassessment discussions with other providers. This critical care time was performed to assess and manage the high probability of imminent life-threatening deterioration that could result in multiorgan failure. It was exclusive of separate billable procedures and treating other patients and teaching time. Total Critical Care Time in Minutes: 35 Discharge Plan Discharge Clinical Impression: Sepsis due to urinary tract infection, Acute renal failure, Delirium due to another medical condition Patient Disposition: Admitted As Inpatient Condition: Stable Activity Level: Up with assist Discharge Diet: Regular
[2022-01-17 01:58] LABS: HCO3 VBG 26 mmol/L (21-28); Lactate* 1.3 mmol/L (0.5-1.9); PCO2 VBG 52 mmHG (40-50); PO2 VBG 44.9 mmHG (25-47); pH VBG 7.309 (7.32-7.43)
[2022-01-17 02:04] LABS: Basophils Percent Auto 0.5 % (0.0-3.0); Eosinophils Percent Auto 0.9 % (0.0-7.0); Hematocrit 41.8 % (33.0-51.0); Hemoglobin* 13.7 gm/dL (12.0-16.0); Immature Granulocytes Abs Auto 0.02 K/uL (0.00-0.30); Lymphocytes Percent Auto 14.6 % (20-44); Mean Corpuscular HGB Conc 33 gm/dL (32-36); Mean Corpuscular Hemoglobin 30 pg (26-34); Mean Corpuscular Volume 92 fL (80-100); Monocytes Percent Auto 8.5 % (0.0-11.0); Neutrophils Percent Auto 75.3 % (42.0-72.0); Platelet Count* 239 K/uL (140-440); RDW Coefficient of Variation % 15.4 % (11.5-15.5); Red Blood Count 4.56 m/uL (4.00-5.20); White Blood Count* 11.09 K/uL (4.50-11.00)
[2022-01-17 02:09] LABS: Slide Review Reflex No
[2022-01-17] MEDS: 0.9 % SODIUM CHLORIDE 500 ML 500 ML 1000 ML IV (02:13)
[2022-01-17 02:16] LABS: Appearance Urine Slightly Cloudy (Clear); Bilirubin Urine 2+ (Negative); Blood Urine Negative (Negative); Color Urine Yellow (Yellow); Glucose Urine Negative (Negative); Ketones Urine 1+ (Negative); Leukocyte Esterase Urine 2+ (Negative); Nitrite Urine Negative (Negative); Protein Urine 1+ (Negative); Specific Gravity Urine 1.025 (1.000-1.030); pH Urine 5.5 (5.0-8.5)
[2022-01-17 02:20] LABS: Albumin* 4.6 g/dL (3.3-5.0); Chloride* 102 mmol/L (96-114); Sodium* 141 mmol/L (135-149)
[2022-01-17 02:21] LABS: Potassium* 3.9 mmol/L (3.6-5.1)
[2022-01-17 02:23] LABS: Alanine Aminotransferase* 17 U/L (4-35); Alkaline Phosphatase* 108 U/L (40-150); Aspartate Amino Transferase* 26 U/L (12-35); Bilirubin Total* 0.6 mg/dL (0.1-1.5); Blood Urea Nitrogen* 30 mg/dL (7-30); Carbon Dioxide* 23 mmol/L (20-32); Creatinine* 2.7 mg/dL (0.5-1.5); Est. Creatinine Clearance* 23.45; Estimated Glomerular Filt Rate 20 ml/min; Glucose* 121 mg/dL (60-115); Total Protein* 8.3 g/dL (6.0-8.3)
[2022-01-17 02:23] LABS: Amphetamine Screen Urine Negative (Negative); Barbiturate Screen Urine Negative (Negative); Benzodiazepines Screen Urine Negative (Negative); Cocaine Screen Urine Negative (Negative); Methadone Screen Urine Negative (Negative); Opiate Screen Urine Negative (Negative); Oxycodone Screen Urine Negative (Negative); Phencyclidine Screen Urine Negative (Negative); Tricyclic Antidepressant Urine Negative (Negative)
[2022-01-17 02:24] LABS: Calcium* 9.4 mg/dL (8.4-10.6)
[2022-01-17 02:32] LABS: Cannabinoid Screen Urine POSITIVE (Negative); Methamphetamines Screen Urine POSITIVE (Negative)
[2022-01-17 02:34] LABS: Amorphous Sediment Urine Moderate; Bacteria Urine Moderate; Mucus Urine Moderate; Squamous Epithelial Cell Urine Few (None-Few); WBC Urine 25-50 (0-5)
[2022-01-17 02:41] LABS: PCR FLU A Negative PCR FLU A (Negative); PCR FLU B Negative PCR FLU B (Negative)
[2022-01-17] MEDS: 0.9 % SODIUM CHLORIDE 1000 ml 1,000 ML 6000 ML IV (02:45)
[2022-01-17 02:50] LABS: Ammonia* < 9.0 umol/L (13.1-30.0)
[2022-01-17 02:55] LABS: Ethanol* < 0.01 % (0.01-0.03)
[2022-01-17 03:00] LABS: Troponin, Point-of-Care* 0.01 ng/ml (0.01-0.04)
[2022-01-17 03:03] LABS: Troponin I* 0.03 ng/mL (0.01-0.04)
[2022-01-17] MEDS: cefTRIAXone 1 GM in 0.9 % SODIUM CHLORIDE Mini-bag 100 ML IVPB ×2 (03:13→20:57)
[2022-01-17 03:14] LABS: SARS PCR* Negative SARS-CoV-2 (Negative)
--- NOTE | 2022-01-17 03:17 | CRLHL7_ITS ---
For Patients: As a result of the Cures Act, medical imaging exams and procedure reports are released immediately into your electronic medical record. You may view this report before your referring provider. If you have questions, please contact your health care provider. Indication: Altered mental status Technique: Chest 1 view Comparison: December 27, 2021 Findings/Impression: Cardiovascular and mediastinum: Heart size and vasculature are normal in caliber and appearance. Mediastinum is within normal limits. Lungs and pleural space: Lungs are clear. No sign of infiltrate or mass. No sign of pleural effusion. No pneumothorax. Bones and soft tissues: Plate and screw hardware in the lower cervical spine. Dictated by Melissa Villalobos MD @ 01/17/2022 3:42:58 AM (Electronically Signed)
--- NOTE | 2022-01-17 06:29 | PC.NURSE ---
0600 Pt arrived to floor, unresponsive, unable to answer admission questions. BG @ 0605- 111, Vitals stable, pt maintain O2 sats >95% on RA.
[2022-01-17] MEDS: LACTATED RINGERS 1000 ML 1,000 ML 125 ML IV ×2 (08:14→16:44)
--- NOTE | 2022-01-17 11:55 | P.IMHP_ITS ---
Hospitalist- H&P: HPI History of Present Illness Date Seen: 01/17/22 Chief complaint: Seizure-like activity Narrative: Alyssa Palencia is a 61 year old female admitted with altered mental status. She reports that she has no recollection of what brought her here other than she was told that she had altered mental status or that she was out of it. She reported feeling fine yesterday and reports feeling fine today except for her chronic pain. Second and reports from roommates indicate that there may have been some observed seizure activity but mostly she was observed to be hard to arouse. Paramedics found her hard to arouse without having seizure activity. Notably she had a hospitalization at [facility] with the intra cerebral hemorrhage 3 weeks ago she was briefly on antiseizure medications. She had an EEG which showed no seizure activity. Last night her CT scan showed slight improvement in the area of hemorrhage. Review of Systems Narrative: She reports she has been feeling well recently other than her longstanding chronic neck pain. She has had no fever, cold, cough, chest pain, shortness of breath, nausea, vomiting, abdominal pain, diarrhea. She tells me she has not had a bowel movement a couple days. No bloody stools. She does report she has had a decreased appetite. Complete review of systems otherwise unremarkable [facility] Medical History (Updated 01/17/22 @ 12:12 by Tony Peng MD) Chronic pain Cognitive impairment Depression Gastroesophageal reflux Intracerebral hemorrhage Substance abuse Surgical History (Updated 01/17/22 @ 12:03 by Tony Peng MD) H/O Achilles tendon repair H/O cervical spine surgery History of appendectomy History of lumbar laminectomy Family History (Updated 01/17/22 @ 12:04 by Tony Peng MD) Mother Breast cancer Diabetes Stroke Sister Breast cancer Daughter Diabetes Father Heart disease Social History (Updated 01/17/22 @ 12:06 by Tony Peng MD) Narrative: She lives in the home with roommates. She tells me that she owns the home but has been delinquent in mortgage payments and is at risk for foreclosure. She is a smoker. Smoking Status: Unknown if ever smoked Non-prescribed substance use details: unable to respond service: No Meds Home Medications and Allergies Home Medications Medication Instructions Recorded Confirmed Type amlodipine 5 mg tablet 5 mg PO DAILY 01/17/22 01/17/22 History baclofen 5 mg tablet 5 mg PO TID 01/17/22 01/17/22 History buprenorphine 8 mg-naloxone 2 mg 1 film sublingual DAILY 01/17/22 01/17/22 History sublingual film (Suboxone) lisinopril 20 mg tablet 20 mg PO DAILY 01/17/22 01/17/22 History nicotine patch 01/17/22 History oxybutynin chloride 5 mg 5 mg PO DAILY 01/17/22 01/17/22 History tablet,extended release 24 hr pantoprazole 40 mg tablet,delayed 40 mg PO BID 01/17/22 01/17/22 History release paroxetine HCl 30 mg tablet 60 mg PO DAILY 01/17/22 01/17/22 History pregabalin 150 mg capsule (Lyrica) 150 mg PO BID 01/17/22 01/17/22 History rosuvastatin 5 mg tablet 5 mg PO HS 01/17/22 01/17/22 History sennosides 8.6 mg capsule (senna) 8.6 mg PO BID 01/17/22 01/17/22 History Home Medication Comments: Patient does not know her medications. She does not know the names, purposes, doses or frequencies. Even when I read a medication list from her medical record she cannot confirm her medications. Allergies Allergy/AdvReac Type Severity Reaction Status Date / Time celecoxib Allergy Unknown Verified 01/17/22 03:19 ibuprofen [From Motrin] Allergy Unknown Verified 01/17/22 03:19 naproxen Allergy Unknown Verified 01/17/22 03:19 acetaminophen [From Tylenol] Allergy Unknown Verified 01/17/22 03:19 atorvastatin [From Lipitor] Allergy Verified 01/17/22 03:19 buspirone [From BuSpar] Allergy Unknown Verified 01/17/22 03:19 gabapentin [From Neurontin] Allergy Verified 01/17/22 03:19 sertraline [From Zoloft] Allergy Unknown Verified 01/17/22 03:19 prednisone AdvReac gingivitis Verified 01/17/22 03:19 Exam Narrative: Exam Narrative: She is sleeping soundly but arouses to voice and touch. At that point she is alert and able to carry on a conversation. She is oriented to her circumstances. She is pleasant and cooperative. Eyes are normal. Sclerae nonicteric. Extraocular movements are full. Visual amor are intact. No facial asymmetry. Oropharynx is normal. Neck is supple without mass or adenopathy. Respirations are clear to auscultation. Cardiovascular: S1, S2, regular rate and rhythm. No murmur gallop or rub. Abdomen: Bowel sounds active. Abdomen is soft without tenderness or mass. She moves all 4 extremities well. She has no edema. Intact peripheral pulses. Left BKA noted well healed. Const: Vital Signs, click to edit/add: Vital Signs - 24 hr 01/17/22 01:19 01/17/22 01:30 01/17/22 02:05 Temperature 97.2 F L Pulse Rate Pulse Rate [Left P ulse Oximeter] 66 68 59 L Pulse Rate [Pulse Oximeter] Respiratory Rate 20 10 L 16 Blood Pressure [Le ft Arm] Blood Pressure [Ri ght Upper Arm] 109/70 103/70 85/55 L Pulse Oximetry 96 95 95 Oxygen Delivery Vt thod Room Air Room Air Room Air 01/17/22 02:15 01/17/22 02:25 01/17/22 02:30 Temperature Pulse Rate Pulse Rate [Left P ulse Oximeter] 57 L 55 L 56 L Pulse Rate [Pulse Oximeter] Respiratory Rate 12 16 16 Blood Pressure [Le ft Arm] Blood Pressure [Ri ght Upper Arm] 89/53 L 79/52 L 97/55 L Pulse Oximetry 95 95 94 Oxygen Delivery Vt thod Room Air Room Air Room Air 01/17/22 02:40 01/17/22 02:50 01/17/22 03:00 Temperature Pulse Rate Pulse Rate [Left P ulse Oximeter] 60 59 L 57 L Pulse Rate [Pulse Oximeter] Respiratory Rate 16 16 16 Blood Pressure [Le ft Arm] Blood Pressure [Ri ght Upper Arm] 95/53 L 95/55 L 94/53 L Pulse Oximetry 94 93 92 Oxygen Delivery Vt thod Room Air Room Air Room Air 01/17/22 03:10 01/17/22 03:20 01/17/22 03:30 Temperature Pulse Rate Pulse Rate [Left P ulse Oximeter] 56 L 56 L 57 L Pulse Rate [Pulse Oximeter] Respiratory Rate 14 16 20 Blood Pressure [Le ft Arm] Blood Pressure [Ri ght Upper Arm] 97/57 L 100/56 L 106/59 L Pulse Oximetry 94 93 94 Oxygen Delivery Vt thod Room Air Room Air Room Air 01/17/22 03:40 01/17/22 03:50 01/17/22 04:00 Temperature Pulse Rate Pulse Rate [Left P ulse Oximeter] 55 L 55 L 56 L Pulse Rate [Pulse Oximeter] Respiratory Rate 20 18 18 Blood Pressure [Le ft Arm] Blood Pressure [Ri ght Upper Arm] 110/61 111/60 110/62 Pulse Oximetry 92 94 93 Oxygen Delivery Me thod Room Air Room Air Room Air 01/17/22 04:10 01/17/22 04:20 01/17/22 04:30 Temperature Pulse Rate Pulse Rate [Left P ulse Oximeter] 56 L 56 L 54 L Pulse Rate [Pulse Oximeter] Respiratory Rate 12 16 14 Blood Pressure [Le ft Arm] Blood Pressure [Ri ght Upper Arm] 109/62 111/63 100/57 L Pulse Oximetry 92 95 93 Oxygen Delivery Me thod Room Air Room Air Room Air 01/17/22 06:10 01/17/22 06:19 01/17/22 04:45 Temperature Pulse Rate Pulse Rate [Left P ulse Oximeter] 54 L Pulse Rate [Pulse Oximeter] 95 Respiratory Rate 14 16 18 Blood Pressure [Le ft Arm] 97/47 L Blood Pressure [Ri ght Upper Arm] 100/57 L Pulse Oximetry 93 95 92 Oxygen Delivery Me thod Room Air Room Air Room Air 01/17/22 05:00 01/17/22 05:15 01/17/22 05:30 Temperature Pulse Rate Pulse Rate [Left P ulse Oximeter] 53 L 54 L 58 L Pulse Rate [Pulse Oximeter] Respiratory Rate 18 18 22 Blood Pressure [Le ft Arm] Blood Pressure [Ri ght Upper Arm] 99/59 L 94/58 L 106/62 Pulse Oximetry 92 93 93 Oxygen Delivery Me thod Room Air Room Air Room Air 01/17/22 05:45 01/17/22 06:30 01/17/22 07:00 Temperature Pulse Rate Pulse Rate [Left P ulse Oximeter] 54 L Pulse Rate [Pulse Oximeter] Respiratory Rate 16 Blood Pressure [Le ft Arm] 105/61 88/52 L Blood Pressure [Ri ght Upper Arm] 111/64 Pulse Oximetry 95 Oxygen Delivery Me thod Room Air 01/17/22 07:15 01/17/22 07:30 01/17/22 07:45 Temperature 96.7 F L 98.2 F Pulse Rate Pulse Rate [Left P ulse Oximeter] Pulse Rate [Pulse Oximeter] 52 L 56 L 62 Respiratory Rate 20 18 Blood Pressure [Le ft Arm] 94/51 L 93/51 L 96/67 Blood Pressure [Ri ght Upper Arm] Pulse Oximetry 93 91 Oxygen Delivery Me thod Room Air Room Air 01/17/22 07:50 01/17/22 08:00 01/17/22 09:00 Temperature Pulse Rate 58 L Pulse Rate [Left P ulse Oximeter] Pulse Rate [Pulse Oximeter] 51 L 53 L Respiratory Rate Blood Pressure [Le ft Arm] 102/56 L 97/56 L Blood Pressure [Ri ght Upper Arm] Pulse Oximetry Oxygen Delivery Me thod 01/17/22 10:00 01/17/22 11:00 Temperature 97.2 F L Pulse Rate Pulse Rate [Left P ulse Oximeter] Pulse Rate [Pulse Oximeter] 56 L 64 Respiratory Rate 16 Blood Pressure [Le ft Arm] 89/47 L 116/78 Blood Pressure [Ri ght Upper Arm] Pulse Oximetry 94 Oxygen Delivery Me thod Room Air Documenting provider has reviewed patient's vital signs: yes Hospitalist - H&P: Result Labs Labs: Short CBC 01/17/22 Range/Units 01:54 WBC 11.09 H (4.50-11.00) K/uL Hgb 13.7 (12.0-16.0) gm/dL Hct 41.8 (33.0-51.0) % Plt Count 239 (140-440) K/uL BMP 01/17/22 01:54 Sodium 141 Potassium 3.9 Chloride 102 Carbon Dioxide 23 BUN 30 Creatinine 2.7 H Glucose 121 H Calcium 9.4 Cardiac Enzymes 01/17/22 Range/Units 01:54 Troponin I 0.03 (0.01-0.04) ng/mL Liver Function 01/17/22 Range/Units 01:54 Total Bilirubin 0.6 (0.1-1.5) mg/dL AST 26 (12-35) U/L ALT 17 (4-35) U/L Alkaline Phosphatase 108 (40-150) U/L Albumin 4.6 (3.3-5.0) g/dL Urine 01/17/22 Range/Units 01:30 Urine Color Yellow (Yellow) Urine Appearance Slightly Cloudy A (Clear) Urine pH 5.5 (5.0-8.5) Ur Specific [place] 1.025 (1.000-1.030) Urine Protein 1+ A (Negative) Urine Glucose (UA) Negative (Negative) Assessment and Plan Assessment and plan (1) Sepsis due to urinary tract infection: Problem comment: Patient has urinary tract infection. Will initially treat as sepsis due to abnormal vitals, encephalopathy and finding of urinary tract infection. Status: Acute (2) Metabolic encephalopathy: Problem comment: Cause for this is unclear. Considerations include seizure, head trauma, sequela of intra cerebral hemorrhage, substance abuse or inadvertent medication overdose Status: Acute (3) Cognitive impairment: Problem comment: Present on previous hospitalizations. Status: Acute (4) Substance abuse: Problem comment: UDS with methamphetamine and THC Status: Acute (5) Chronic pain: Problem comment: On Suboxone Status: Acute (6) Intracerebral hemorrhage: Problem comment: September 2021 and recurrent December [address] scan shows stability to improvement Status: Acute (7) Acute renal failure: Problem comment: Baseline creatinine is less than 1. Creatinine today 2.7 Status: Acute Plan Admit for treatment of possible sepsis, monitoring of altered mental status, Management of chronic medical problems Total time spent today is 75 minutes, 60 minutes in coordination of care and discussing with patient and other providers the evaluation and management altered mental status
[2022-01-17] MEDS: SENNOSIDES 1 TAB TABLET 2 TAB PO ×2 (12:45→20:57)
[2022-01-17] MEDS: BUPRENORPHINE-NALOX 8-2MG FILM 1 EACH SUBLINGUAL (12:45)
[2022-01-17] MEDS: MAGNESIUM HYDROXIDE 30 ML ORAL.SUSP PO (12:46)
--- NOTE | 2022-01-17 15:28 | PC.SOCIAL ---
Attempted visit with pt in pt's room. Pt was sleeping and this worker was unable to wake pt. Social Work will follow up as necessary.
[2022-01-17] MEDS: OMEPRAZOLE 20 MG CAPSULE DR 40 MG PO (20:56)
[2022-01-17] MEDS: PREGABALIN 50 MG CAPSULE 150 MG PO (20:57)
[2022-01-17] MEDS: ROSUVASTATIN CALCIUM 10 MG TABLET 5 MG PO (21:03)
--- NOTE | 2022-01-17 23:33 | PC.NURSE ---
Shift [id number]- Patient is awake and alert throughout shift. She is alert and oriented x4, but has non-sensical/hard to follow conversations. She is incontinent- cares provided. She denies pain except for needing to shift positions in bed. Appetite is intact. Daughter Bobbi given update via telephone. She would like additional supports for her mom- possible home health RN and home health aide. She says patient has had RN setting up meds for her in the past. Respiratory Therapist to follow up. Patient stands at beside, using A/1, walker, and prostetic.
[2022-01-18] VITALS: BP 80/61; PULSE 67; RESP 18; O2SAT 93
[2022-01-18] MEDS: LACTATED RINGERS 1000 ML 1,000 ML 125 ML IV (01:22)
[2022-01-18 01:32] VITALS: PULSE 65
[2022-01-18 03:00] VITALS: BP 133/71; PULSE 50; RESP 16; TEMP 36.3; O2SAT 90
[2022-01-18] MEDS: OMEPRAZOLE 20 MG CAPSULE DR 40 MG PO (06:04)
--- NOTE | 2022-01-18 06:34 | PC.NURSE ---
pt confused at times. pt expressed paranoia about her cable/internet being billed through her ID wristband and IV, stating she needed to take them off. pt was reassured the purpose of each and eventually calmed down. A x 1 with walker to [facility]. Continent. Pt able to place prosthetic independently. Pt slept well throughout night. HR in 50s when sleeping. Tele = NSR with BBB.
[2022-01-18 06:44] LABS: HCO3 VBG 31 mmol/L (21-28); PO2 VBG 24.5 mmHG (25-47); pH VBG 7.308 (7.32-7.43)
[2022-01-18 06:47] LABS: Basophils Absolute Auto 0.05 K/uL (0.00-0.30); Basophils Percent Auto 0.6 % (0.0-3.0); Eosinophils Absolute Auto 0.29 K/uL (0.00-0.50); Eosinophils Percent Auto 3.3 % (0.0-7.0); Hematocrit 38.9 % (33.0-51.0); Hemoglobin* 12.4 gm/dL (12.0-16.0); Immature Granulocytes Abs Auto 0.01 K/uL (0.00-0.30); Lymphocytes Absolute Auto 2.97 K/uL (0.90-2.90); Lymphocytes Percent Auto 33.7 % (20-44); Mean Corpuscular HGB Conc 32 gm/dL (32-36); Mean Corpuscular Hemoglobin 30 pg (26-34); Mean Corpuscular Volume 94 fL (80-100); Monocytes Percent Auto 7.3 % (0.0-11.0); Neutrophils Absolute Auto 4.86 K/uL (1.7-7.0); PCO2 VBG 62 mmHG (40-50); Platelet Count* 197 K/uL (140-440); RDW Coefficient of Variation % 15.5 % (11.5-15.5); Red Blood Count 4.12 m/uL (4.00-5.20); White Blood Count* 8.82 K/uL (4.50-11.00)
--- NOTE | 2022-01-18 06:49 | PC.NURSE ---
Critical Lab: pCO2 : 62. MD updated.
[2022-01-18 07:03] LABS: Chloride* 107 mmol/L (96-114)
[2022-01-18 07:04] LABS: Potassium* 4.3 mmol/L (3.6-5.1); Sodium* 142 mmol/L (135-149)
[2022-01-18 07:06] LABS: Creatinine* 1.4 mg/dL (0.5-1.5); Est. Creatinine Clearance* 45.22; Estimated Glomerular Filt Rate 43 ml/min
[2022-01-18 07:07] LABS: Blood Urea Nitrogen* 28 mg/dL (7-30); Calcium* 8.6 mg/dL (8.4-10.6); Carbon Dioxide* 29 mmol/L (20-32); Glucose* 110 mg/dL (60-115)
[2022-01-18 07:08] LABS: Magnesium* 2.1 mg/dL (1.5-2.6)
[2022-01-18 07:10] LABS: C Reactive Protein* 1.5 mg/dL (0.5-1.0)
[2022-01-18 07:20] LABS: Slide Review Reflex No
[2022-01-18 07:30] VITALS: PULSE 50
[2022-01-18 07:32] LABS: Troponin I* < 0.01 ng/mL (0.01-0.04)
[2022-01-18 08:00] VITALS: BP 135/96; PULSE 59; RESP 16; TEMP 36.6; O2SAT 96
[2022-01-18] MEDS: BUPRENORPHINE-NALOX 8-2MG FILM 1 EACH SUBLINGUAL (10:00)
[2022-01-18] MEDS: SENNOSIDES 1 TAB TABLET 2 TAB PO (10:00)
[2022-01-18] MEDS: PREGABALIN 50 MG CAPSULE 150 MG PO (10:00)
[2022-01-18] MEDS: PARoxetine 20 MG TABLET 60 MG PO (10:00)
[2022-01-18 11:00] VITALS: BP 118/74; PULSE 65; RESP 16; TEMP 36.6; O2SAT 95
--- NOTE | 2022-01-18 12:52 | PC.SOCIAL ---
Addendum entered by BRAI Zhu 01/18/22 14:36: At pt request, spoke with dtrBobbi by phone. Dtr is going to locate someone to pick pt up for transport home as she is unavailable to provide transportation. Dtr was interested in resources for additional services at home if needed and for information on POA for healthcare forms. dockworker discussed option to apply for Medical Assistance and then to request a assisted care assessment through [facility] to evaluate pt for home making services and any programs she will qualify for through the [facility]. At dtr's request, emailed information and links to [facility] Buyer Broker, Senior Linkage Line, Disability Linkage Line and POA forms. Dtr is aware of how to contact this family welfare social work professor if she has questions on resources provided. Original Note: Discharge planning: Met with pt regarding d/c plan. Pt plans to return home at discharge. When asked about resources that may be helpful to her at discharge, pt mentions [place] has some financial issues with her home being forclosed on. Pt is aware of [facility] [place]'s availability for financial assistance and connection to other community resources. She has used them in the past and is aware of how to contact them at discharge if needed. Pt is aware of how to reach this family welfare social work professor after discharge if additional resources are needed.
--- NOTE | 2022-01-18 13:44 | PM.DS1 ---
DS: Providers Provider Date Seen: 01/18/22 Date of admission: 01/17/22 05:38 Primary care physician: Not a Local Provider Attending Physician on discharge: Not a Local Provider Date of Discharge: 01/18/22 DS: Diagnosis Discharge Diagnosis (1) Hypotension: Status: Acute Problem details: Patient was hypotensive at the time of admission. Cause for this was uncertain. This had happened previously on hospitalizations for her intra cerebral hemorrhage as well. Lisinopril was discontinued because of this. (2) Metabolic encephalopathy: Status: Acute Problem details: She was apparently quite confused at the time of admission. In the last 2 days she has had relatively normal mentation though is quite forgetful about any recent medical history. She does not know any of her medications or how she takes them. Cause for this is unclear. Considerations include seizure, head trauma, sequela of intra cerebral hemorrhage, substance abuse or inadvertent medication overdose. (3) Acute renal failure: Status: Acute Problem details: Baseline creatinine is less than 1. Creatinine today 2.7. Likely due to a combination of hypotension plus lisinopril. Lisinopril was held. She was given IV fluids and her creatinine has improved to 1.4 (4) Sepsis due to urinary tract infection: Status: Acute Problem details: Patient is suspected of having a urinary tract infection. On admission this was thought to be due to sepsis. Now some clinical uncertainty as to whether UTI is causing hypotension and acute kidney injury. She did have a bladder scan that showed about 115 mL of postvoid residual (5) Intracerebral hemorrhage: Status: Acute Problem details: September 2021 and recurrent December [address] scan shows stability to improvement (6) Chronic pain: Status: Acute Problem details: On Suboxone (7) Substance abuse: Status: Acute Problem details: UDS with methamphetamine and THC (8) Cognitive impairment: Status: Acute Problem details: Present on previous hospitalizations. DS: Summary Hospital Course Hospital Course: 61-year-old female brought to the emergency room when she had altered mentation at home. 911 was called by her roommate. She cannot tell me of any symptoms of illness that she had at the time. Evaluation here is not showed any serious illness or injury. There is clinical suspicion of a urinary tract infection. Cultures are pending. She was treated with ceftriaxone for urinary tract infection with possible sepsis. Her lisinopril was held due to hypotension and acute kidney injury. She was monitored for abnormal vital signs or other complications. She did very well over the last day with no new or worsening problems being identified. Status at Discharge Functional status at discharge: uses cane/walker Overall status at discharge: patient is progressing back to baseline Time Spent with Patient Time attestation: Total time spent providing and/or coordinating discharge services: Time spent: Greater than 30 minutes Exam Narrative: Exam Narrative: She is alert and appears in no distress. Speech is normal. She is oriented to her circumstances. Oropharynx is normal. Neck is supple without mass or adenopathy. Respirations are clear to auscultation. Cardiovascular: S1, S2, regular rhythm. No murmur gallop or rub. Abdomen: Bowel sounds active. Abdomen is soft without tenderness or mass left lower extremity BKA is well healed. Right lower extremity with out significant edema. No significant skin lesions. Const: Vital Signs, click to edit/add: Vital Signs - 24 hr 01/17/22 14:00 01/17/22 19:30 01/18/22 01:32 Temperature 97.6 F Pulse Rate 65 Pulse Rate [Pulse Oximeter] 57 L 63 Respiratory Rate 16 Blood Pressure [Le ft Arm] 111/64 104/61 Blood Pressure [Ri ght Arm] Pulse Oximetry 96 Oxygen Delivery Me thod Room Air 01/18/22 00:00 01/18/22 00:00 01/18/22 03:00 Temperature 97.4 F L Pulse Rate Pulse Rate [Pulse Oximeter] 67 67 50 L Respiratory Rate 18 18 16 Blood Pressure [Le ft Arm] Blood Pressure [Ri ght Arm] 80/61 L 133/71 Pulse Oximetry 93 90 Oxygen Delivery Me thod Room Air Room Air 01/18/22 07:30 Temperature Pulse Rate 50 L Pulse Rate [Pulse Oximeter] Respiratory Rate Blood Pressure [Le ft Arm] Blood Pressure [Ri ght Arm] Pulse Oximetry Oxygen Delivery Me thod Documenting provider has reviewed patient's vital signs: yes DS: Data Data Completed and Pending Labs on day of discharge: Labs from last 24 hours 01/18/22 01/18/22 01/18/22 06:16 06:16 06:16 WBC 8.82 RBC 4.12 Hgb 12.4 Hct 38.9 MCV 94 MCH 30 MCHC 32 RDW Coeff of Arlin 15.5 Plt Count 197 Neut % (Auto) 55.0 Lymph % (Auto) 33.7 [place] % (Auto) 7.3 Eos % (Auto) 3.3 Baso % (Auto) 0.6 Neut # (Auto) 4.86 Lymph # (Auto) 2.97 H [place] # (Auto) 0.60 Eos # (Auto) 0.29 Baso # (Auto) 0.05 Abs Immat Gran (auto) 0.01 Imm/Tot Granulo (auto) Pending VBG pH 7.308 L VBG pCO2 62 H* VBG pO2 24.5 L VBG HCO3 31 H Sodium 142 Potassium 4.3 Chloride 107 Carbon Dioxide 29 BUN 28 Creatinine 1.4 Estimated Creat Clear 45.22 Estimated GFR 43 Glucose 110 Calcium 8.6 Magnesium 2.1 Troponin I < 0.01 L C-Reactive Protein 1.5 H Preliminary micro results at discharge 01/17/22 01:30 Urine Culture - Preliminary Urine,Clean Catch No growth. Discharge Plan Discharge Disposition: Home, Self-Care Date of Admission: 01/17/22 05:38 Attending Provider on Discharge: Tony Peng Primary Care Provider: Provider,Not a Local Condition: Stable Anticipated Discharge Date/Time: 01/18/22 10:31 Discharge Medications: New cephalexin 500 mg capsule 500 mg PO TID Qty: 15 0RF Continued amlodipine 5 mg tablet 5 mg PO DAILY baclofen 5 mg tablet 5 mg PO TID buprenorphine-naloxone [Suboxone] 8-2 mg film 1 film sublingual DAILY oxybutynin chloride 5 mg tablet extended release 24hr 5 mg PO DAILY pantoprazole 40 mg tablet,delayed release (DR/EC) 40 mg PO BID paroxetine HCl 30 mg tablet 60 mg PO DAILY pregabalin [Lyrica] 150 mg capsule 150 mg PO BID rosuvastatin 5 mg tablet 5 mg PO HS senna 8.6 mg capsule 8.6 mg PO BID Rx Instructions: 1-4 tabs BID nicotine patch Rx Instructions: 1 patch daily Discontinued lisinopril 20 mg tablet 20 mg PO DAILY Discharge Orders: Discharge Order (Routine); Ordered 01/18/22 Ordered By: Tony Peng Patient Education: Cephalexin (By mouth), Sepsis (IP) Additional Instructions: See your doctor next week to recheck your kidney function and electrolytes with a basic metabolic panel. Activity Level: Use Walker Discharge Diet: Regular Follow Up Appointments: Provider,Not a Local [Primary Care Provider] - Forms: [employer] Info Instructions
== END 2022-01-18 14:21 | disposition home or self-care (01) | DRG 871 ==
LOC: ED 04:29 → MEDSURG 05:42
PROVIDERS: Family Medicine; Admitting Provider Family Medicine; Emergency Provider Family Medicine
DX: A41.9 Sepsis, unspecified organism (principal); G93.41 Metabolic encephalopathy; I61.9 Nontraumatic intracerebral hemorrhage, unspecified; N39.0 Urinary tract infection, site not specified; N17.9 Acute kidney failure, unspecified; E87.20 Acidosis, unspecified; I95.9 Hypotension, unspecified; G89.29 Other chronic pain; I10 Essential (primary) hypertension; F32.A Depression, unspecified; E78.5 Hyperlipidemia, unspecified; K21.9 Gastro-esophageal reflux disease without esophagitis; F12.10 Cannabis abuse, uncomplicated; F15.10 Other stimulant abuse, uncomplicated; Z79.891 Long term (current) use of opiate analgesic; E11.9 Type 2 diabetes mellitus without complications; Z91.14 Patient's other noncompliance with medication regimen; Z59.819 Housing instability, housed unspecified
CPT/HCPCS: 36415; 70450; 71045; 80048; 80053; 80306; 81003; 81015; 82077; 82140; 82803; 83605; 83735; 84484; 85025; 86140; 87086; 87631; 93005; 94761; 99284; 99285; 99291; A9270; J0574; J0696; J2310; J7030; J7120

== ENCOUNTER 2022-06-12 13:17 | Outpatient (CLI) | payer MEDICARE, SELFPAY | END 2022-06-12 13:18 | disposition home or self-care (01) | LOC: AMB 06-13 09:57 | PROVIDERS: Visit Provider Emergency Medicine Emergency Medical Services | DX: R56.9 Unspecified convulsions (principal) | CPT/HCPCS: A0425; A0427 ==

== ENCOUNTER 2022-06-12 13:45 | Emergency (ER) | payer MEDICARE, SELFPAY ==
[2022-06-12] VITALS (21 sets, daily range): BP systolic 118–221; BP diastolic 71–128; PULSE 62–102; RESP 12–23; TEMP 36.4; O2SAT 61–100; BMI 28.1
--- NOTE | 2022-06-12 | CRLHL7_ITS ---
For Patients: As a result of the Century Cures Act, medical imaging exams and procedure reports are released immediately into your electronic medical record. You may view this report before your referring provider. If you have questions, please contact your health care provider. Indication: Endotracheal tube Technique: Portable chest Comparison: Chest x-ray 06/12/2022 Findings: Endotracheal to 4 cm from the fransisco cervical fusion mild pulmonary edema. Prominent cardiac silhouette. No pneumothorax. No effusion. Dictated by Treva Mohr MD @ 06/12/2022 3:28:09 PM (Electronically Signed)
--- NOTE | 2022-06-12 | CRLHL7_ITS ---
For Patients: As a result of the Century Cures Act, medical imaging exams and procedure reports are released immediately into your electronic medical record. You may view this report before your referring provider. If you have questions, please contact your health care provider. Indication: Stroke, fall Technique: Noncontrast head CT Comparison: Head CT 01/17/2022 Findings: Axial noncontrast images through the brain parenchyma demonstrates acute intraparenchymal hemorrhage in the right parasagittal posterior frontal lobe. There is surrounding edema. The area of hemorrhage measures approximately 3.1 x 2.1 centimeters which is larger when compared to the prior study. There is no intraventricular hemorrhage. There is mild mass effect. There is no hydrocephalus. Motion limits evaluation. Skull and scalp are otherwise unremarkable. Impression: Right acute intraparenchymal parasagittal posterior frontal lobe hemorrhage measuring 3.1 x 2.1 centimeters this is larger when compared to prior CT from 01/17/2022. There is surrounding vasogenic edema. Minimal mass effect. No hydrocephalus or intraventricular hemorrhage. Results called to Dr. Momin on 06/12/22 at 2:30pm. Please note that all CT scans at this facility use dose modulation, iterative reconstruction, and/or weight-based dosing when appropriate to reduce radiation dose to as low as reasonably achievable. Dictated by Treva Mohr MD @ 06/12/2022 2:35:45 PM (Electronically Signed)
--- NOTE | 2022-06-12 | CRLHL7_ITS ---
For Patients: As a result of the Century Cures Act, medical imaging exams and procedure reports are released immediately into your electronic medical record. You may view this report before your referring provider. If you have questions, please contact your health care provider. Indication: Intubation Technique: Portable chest Comparison: No comparison Findings: Mildly enlarged cardiac silhouette. Endotracheal tube 5.5 cm from the fransisco cervical fusion. Bilateral interstitial opacities probably reflect pulmonary edema. No pneumothorax or effusion. Dictated by Treva Mohr MD @ 06/12/2022 3:27:14 PM (Electronically Signed)
--- NOTE | 2022-06-12 | CRLHL7_ITS ---
For Patients: As a result of the Cures Act, medical imaging exams and procedure reports are released immediately into your electronic medical record. You may view this report before your referring provider. If you have questions, please contact your health care provider. Indication: Fall Technique: Cervical spine CT scan Comparison: No comparison Findings: Normal height the cervical vertebral bodies. The C7 vertebral body is only partially seen. There is bony fusion at the level C4 C5 with interbody grafts. Anterior cervical with plate and screw fixation at the level C6-C7. There is minimal anterolisthesis of C3 on C4. Normal alignment C1 in respect to C2. No acute fracture seen. The prevertebral soft tissues are within normal limits. Impression: 1. No acute vertebral body fracture or traumatic malalignment. Please note that all CT scans at this facility use dose modulation, iterative reconstruction, and/or weight-based dosing when appropriate to reduce radiation dose to as low as reasonably achievable. Dictated by Treva Mohr MD @ 06/12/2022 2:08:56 PM (Electronically Signed)
--- NOTE | 2022-06-12 14:00 | ED.NURSE ---
Pt back in room. C-collar remains in place from EMS. Sats 83-86% on RA. O2 applied at 2LPM via NC.
--- NOTE | 2022-06-12 14:01 | ED_ITS ---
HPI - General Adult General Chief complaint: Neuro Symptoms/Altered Deficit Stated complaint: Possible Stroke Time Seen by Provider: 06/12/22 13:48 History of Present Illness HPI narrative: This 61-year-old female comes in by ambulance with suspicion of a stroke. She states that she was feeling off balance this morning and actually some people in her apartment below her heard some noises and decided to check on her. She states that she did have a headache earlier today but does not complain of a headache currently. 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 She does have a history of cerebrovascular hemorrhage in the past. She is not on any blood thinners. Related Data Home Medications Medication Instructions Recorded Confirmed amlodipine 5 mg tablet 5 mg PO DAILY 01/17/22 01/17/22 baclofen 5 mg tablet 5 mg PO TID 01/17/22 01/17/22 buprenorphine 8 mg-naloxone 2 mg 1 film sublingual DAILY 01/17/22 01/17/22 sublingual film (Suboxone) nicotine patch 01/17/22 oxybutynin chloride 5 mg 5 mg PO DAILY 01/17/22 01/17/22 tablet,extended release 24 hr pantoprazole 40 mg tablet,delayed 40 mg PO BID 01/17/22 01/17/22 release paroxetine HCl 30 mg tablet 60 mg PO DAILY 01/17/22 01/17/22 pregabalin 150 mg capsule (Lyrica) 150 mg PO BID 01/17/22 01/17/22 rosuvastatin 5 mg tablet 5 mg PO HS 01/17/22 01/17/22 sennosides 8.6 mg capsule (senna) 8.6 mg PO BID 01/17/22 01/17/22 Previous Rx's Medication Instructions Recorded cephalexin 500 mg capsule 500 mg PO TID #15 caps 01/18/22 Allergies Allergy/AdvReac Type Severity Reaction Status Date / Time celecoxib Allergy Unknown Verified 01/17/22 03:19 ibuprofen [From Motrin] Allergy Unknown Verified 01/17/22 03:19 naproxen Allergy Unknown Verified 01/17/22 03:19 acetaminophen [From Tylenol] Allergy Unknown Verified 01/17/22 03:19 atorvastatin [From Lipitor] Allergy Verified 01/17/22 03:19 buspirone [From BuSpar] Allergy Unknown Verified 01/17/22 03:19 gabapentin [From Neurontin] Allergy Verified 01/17/22 03:19 sertraline [From Zoloft] Allergy Unknown Verified 01/17/22 03:19 prednisone AdvReac gingivitis Verified 01/17/22 03:19 Review of Systems Status of ROS: Reports: 10 or more systems reviewed and unremarkable except as noted in History and below Narrative: Constitutional: No fevers, no weight gain or loss. Eyes: No discharge. No vision changes. HENT: No congestion, no sore throat, no ear pain. Cardiovascular: No chest pain, no palpitations. Respiratory: No shortness of breath, no wheezes, no cough. Gastrointestinal: No abdominal pain, no vomiting, no diarrhea. Genitourinary: No dysuria, no hematuria. Musculoskeletal: Normal range of motion. Skin: No rashes, no pruritis. Neurological: She states that she has been off balance today. She had a headache this morning. Endo/Heme/Allergies: No bruising or bleeding. No polydipsia. Pysch: no suicidality, no anxiety, no insomnia. All other systems reviewed and are negative. [facility] Medical History (Updated 06/12/22 @ 15:34 by Kevin Momin MD) Chronic pain ?G89.29 - Other chronic pain (ICD-10) Cognitive impairment ?R41.89 - Other symptoms and signs involving cognitive functions and awareness (ICD-10) Depression ?F32.A - Depression, unspecified (ICD-10) Gastroesophageal reflux ?K21.9 - Gastro-esophageal reflux disease without esophagitis (ICD-10) Intracerebral hemorrhage ?I61.9 - Nontraumatic intracerebral hemorrhage, unspecified (ICD-10) Substance abuse ?F19.10 - Other psychoactive substance abuse, uncomplicated (ICD-10) Surgical History (Updated 01/17/22 @ 12:03 by Tony Peng MD) H/O Achilles tendon repair ?Z98.890 - Other specified postprocedural states (ICD-10) H/O cervical spine surgery ?Z98.890 - Other specified postprocedural states (ICD-10) History of appendectomy ?Z90.49 - Acquired absence of other specified parts of digestive tract (ICD- 10) History of lumbar laminectomy ?Z98.890 - Other specified postprocedural states (ICD-10) Family History (Updated 01/17/22 @ 12:04 by Tony Peng MD) Mother Breast cancer Diabetes Stroke Sister Breast cancer Daughter Diabetes Father Heart disease Social History (Updated 01/17/22 @ 12:06 by Tony Peng MD) Narrative: She lives in the home with roommates. She tells me that she owns the home but has been delinquent in mortgage payments and is at risk for foreclosure. She is a smoker. Smoking Status: Unknown if ever smoked Non-prescribed substance use: amphetamines/methamphetamines service: No Exam Narrative: Exam Narrative: Constitutional: Well-developed, well-nourished, no acute distress. HEENT: Normocephalic, atraumatic. Neck: Normal range of motion. Nontender. Supple. Heart: Regular. No murmurs. Bradycardia. Intact distal pulses. Lungs: Clear to auscultation. No chest discomfort. No wheezes, rhonchi, or rales. Abdomen: Normal bowel sounds. Nontender. No rebound tenderness. Genitalia: Deferred. Back: No midline tenderness. Normal range of motion. Extremities: Normal range of motion. No injury. Below the knee amputation of the left leg. Skin: Intact. No rash. Warm. No erythema or pallor. Neurologic: No altered sensation. No weakness. Alert and oriented. No facial asymmetry. Speech is normal. Tongue is midline. Environmental Field Team Member strength is equal bilaterally. She is able to raise each leg from the bed. Psychiatric: No suicidality. No anxiety or depression. No insomnia. Nursing notes and vitals signs are reviewed. Const: Vital Signs, click to edit/add: Vital Signs - 24 hr 06/12/22 13:45 06/12/22 14:03 06/12/22 14:12 Temperature 97.6 F Pulse Rate 67 Pulse Rate [Right Pulse Oximeter] 66 Respiratory Rate 14 12 Blood Pressure 173/87 H Blood Pressure [Ri ght Upper Arm] 177/109 H Pulse Oximetry 93 95 94 Oxygen Delivery Me thod Room Air Nasal Cannula Oxygen Flow Rate 2 2 06/12/22 14:21 06/12/22 14:00 06/12/22 14:30 Temperature Pulse Rate 67 71 66 Pulse Rate [Right Pulse Oximeter] Respiratory Rate 14 18 Blood Pressure 172/94 H 181/94 H Blood Pressure [Ri ght Upper Arm] Pulse Oximetry 95 86 L 91 Oxygen Delivery Me thod Room Air Oxygen Flow Rate 06/12/22 14:32 06/12/22 14:33 06/12/22 14:42 Temperature Pulse Rate 69 68 67 Pulse Rate [Right Pulse Oximeter] Respiratory Rate 14 Blood Pressure 174/98 H 174/86 H Blood Pressure [Ri ght Upper Arm] Pulse Oximetry 93 92 93 Oxygen Delivery Me thod Nasal Cannula Oxygen Flow Rate 2 06/12/22 14:52 06/12/22 14:53 06/12/22 15:00 Temperature Pulse Rate 93 96 92 Pulse Rate [Right Pulse Oximeter] Respiratory Rate Blood Pressure 129/101 H Blood Pressure [Ri ght Upper Arm] Pulse Oximetry 61 L 89 95 Oxygen Delivery Me thod Nasal Cannula Non Rebreather Mas k Ambu-Bag Oxygen Flow Rate 2 15 06/12/22 15:02 06/12/22 15:08 06/12/22 15:12 Temperature Pulse Rate 98 92 102 H Pulse Rate [Right Pulse Oximeter] Respiratory Rate 23 17 Blood Pressure 206/128 H 212/111 H 221/115 H Blood Pressure [Ri ght Upper Arm] Pulse Oximetry 86 L 99 100 Oxygen Delivery Me thod Ambu-Bag Intubated Oxygen Flow Rate 06/12/22 15:15 06/12/22 15:18 06/12/22 15:21 Temperature Pulse Rate 69 62 62 Pulse Rate [Right Pulse Oximeter] Respiratory Rate 22 21 Blood Pressure 121/73 118/71 Blood Pressure [Ri ght Upper Arm] Pulse Oximetry 100 100 100 Oxygen Delivery Me thod Oxygen Flow Rate 06/12/22 15:30 06/12/22 15:31 06/12/22 15:40 Temperature 97.6 F Pulse Rate 62 64 Pulse Rate [Right Pulse Oximeter] 62 Respiratory Rate 20 Blood Pressure 130/71 Blood Pressure [Ri ght Upper Arm] 130/71 Pulse Oximetry 100 100 Oxygen Delivery Me thod Oxygen Flow Rate Course Vital Signs Vital signs: Initial Vital Signs Temperature 97.6 F 06/12/22 13:45 Temperature Source Temporal Artery Scan 06/12/22 13:45 Pulse Rate 66 06/12/22 13:45 Pulse Rhythm Regular 06/12/22 13:45 Respiratory Rate 14 06/12/22 13:45 Blood Pressure 177/109 H 06/12/22 13:45 Blood Pressure Mean 131 06/12/22 13:45 Blood Pressure Position Sitting 06/12/22 13:45 Pulse Oximetry 93 06/12/22 13:45 Oxygen Delivery Method Room Air 06/12/22 13:45 Oxygen Flow Rate 2 06/12/22 13:45 Vital Signs Temperature 97.6 F 06/12/22 13:45 Pulse Rate 66 06/12/22 13:45 Respiratory Rate 14 06/12/22 13:45 Blood Pressure 177/109 H 06/12/22 13:45 Pulse Oximetry 93 06/12/22 13:45 Oxygen Delivery Method Room Air 06/12/22 13:45 Oxygen Flow Rate 2 06/12/22 13:45 Temperature 97.6 F 06/12/22 15:40 Pulse Rate 62 06/12/22 15:40 Respiratory Rate 20 06/12/22 15:40 Blood Pressure 130/71 06/12/22 15:40 Pulse Oximetry 100 06/12/22 15:31 Oxygen Delivery Method Ambu-Bag, Intubated 06/12/22 15:08 Oxygen Flow Rate 15 06/12/22 14:53 Medical Decision Making MDM Narrative Medical decision making narrative: This patient arrives by ambulance and goes directly to CT imaging for evaluation of her symptoms. I did view the images in the CT department which showed evidence of a hemorrhagic cerebrovascular accident. This is located left of the midline and there is no evidence of midline shift. This patient is not displaying any neurologic deficits currently. I spoke with hospitalist commercial loan collection officer at [facility], Dr. Willy Loza, who agrees to her transfer there for further evaluation and treatment. Her NIH stroke scale score was 0. GCS was 15. While awaiting for ambulance transfer in the bed to be ready the patient did have a seizure. She then received a mg of Ativan and 500 mg of Keppra intravenously. She did have hypoxia initially during the seizure but then resumed sufficient respirations to restore oximetry into the 90s%. She had postictal symptoms but was moving her extremities on both sides. Preparations were then made for intubation for transport. During this time she did have respiratory arrest. A code blue was initiated. I did place a 7.0 tube using a glide scope after the patient received 20 mg of etomidate and 140 mg of succinylcholine. Tube placement was confirmed with chest x-ray. Her blood pressure then increased to 220 for systolic value. She then received 20 mg of labetalol intravenously. She was placed on 50 mg drip of propofol but this was not adequate sedation for her. She was given then 100 mg of propofol as a bolus. She is adequately sedated now on her blood pressure decreased to a systolic value of 120. An NG tube is been placed and a Carr catheter is also placed. Lab Data Labs: Lab Results 06/12/22 06/12/22 Range/Units 14:14 15:44 WBC 7.43 (4.50-11.00) K/uL RBC 4.19 (4.00-5.20) m/uL Hgb 13.2 (12.0-16.0) gm/dL Hct 40.9 (33.0-51.0) % MCV 98 (80-100) fL MCH 32 (26-34) pg MCHC 32 (32-36) gm/dL RDW Coeff of Arlin 14.6 (11.5-15.5) % Plt Count 203 (140-440) K/uL Neut % (Auto) 68.8 (42.0-72.0) % Lymph % (Auto) 20.6 (20-44) % Ford % (Auto) 5.9 (0.0-11.0) % Eos % (Auto) 3.1 (0.0-7.0) % Baso % (Auto) 0.7 (0.0-3.0) % Neut # (Auto) 5.11 (1.7-7.0) K/uL Lymph # (Auto) 1.53 (0.90-2.90) K/uL Ford # (Auto) 0.40 (0.00-0.90) K/UL Eos # (Auto) 0.23 (0.00-0.50) K/uL Baso # (Auto) 0.05 (0.00-0.30) K/uL INR 0.89 L (0.91-1.10) Sodium 141 (135-149) mmol/L Potassium 4.4 (3.6-5.1) mmol/L Chloride 110 (96-114) mmol/L Carbon Dioxide 27 (20-32) mmol/L BUN 18 (7-30) mg/dL Creatinine 0.8 (0.5-1.5) mg/dL Estimated Creat Clear 79.13 Estimated GFR 85 ml/min Glucose 106 (60-115) mg/dL Calcium 8.6 (8.4-10.6) mg/dL Troponin I 0.02 (0.01-0.04) ng/mL Urine Opiates Screen Negative (Negative) Ur Oxycodone Screen Negative (Negative) Urine Methadone Screen Negative (Negative) Ur Propoxyphene Screen Negative (Negative) Ur Barbiturates Screen Negative (Negative) U Tricyclic Antidepress Negative (Negative) Ur Phencyclidine Scrn Negative (Negative) Ur Amphetamines Screen Negative (Negative) U Methamphetamines Scrn POSITIVE A* (Negative) U Benzodiazepines Scrn Negative (Negative) Urine Cocaine Screen Negative (Negative) U Marijuana (THC) Screen POSITIVE A* (Negative) Ur Drug Screen Comment See Note Imaging Data CT scan - head: My impression: Acute hemorrhagic cerebrovascular accident left of midline with no midline shif t. Radiology report is pending. ECG Data Attestation: I personally reviewed and interpreted this ECG as follows: Interpretation: Sinus bradycardia. Rate is 42 beats per minute. There are no specific ST or T- wave abnormalities. Critical Care Time Critical Care Time Total Critical Care Time in Minutes: 90 Discharge Plan Discharge Clinical Impression: Cerebrovascular accident, Seizure Patient Disposition: Rob Cavanaugh Condition: Unchanged Prescriptions: No Action amlodipine 5 mg tablet 5 mg PO DAILY baclofen 5 mg tablet 5 mg PO TID buprenorphine-naloxone [Suboxone] 8-2 mg film 1 film sublingual DAILY oxybutynin chloride 5 mg tablet extended release 24hr 5 mg PO DAILY pantoprazole 40 mg tablet,delayed release (DR/EC) 40 mg PO BID paroxetine HCl 30 mg tablet 60 mg PO DAILY pregabalin [Lyrica] 150 mg capsule 150 mg PO BID rosuvastatin 5 mg tablet 5 mg PO HS senna 8.6 mg capsule 8.6 mg PO BID Rx Instructions: 1-4 tabs BID nicotine patch Rx Instructions: 1 patch daily cephalexin 500 mg capsule 500 mg PO TID Qty: 15 0RF Stand Alone Forms: MyHealth Info Instructions
[2022-06-12 14:20] LABS: Hematocrit 40.9 % (33.0-51.0); Hemoglobin* 13.2 gm/dL (12.0-16.0); Lymphocytes Percent Auto 20.6 % (20-44); Mean Corpuscular HGB Conc 32 gm/dL (32-36); Mean Corpuscular Hemoglobin 32 pg (26-34); Mean Corpuscular Volume 98 fL (80-100); Monocytes Percent Auto 5.9 % (0.0-11.0); Neutrophils Percent Auto 68.8 % (42.0-72.0); Platelet Count* 203 K/uL (140-440); RDW Coefficient of Variation % 14.6 % (11.5-15.5); Red Blood Count 4.19 m/uL (4.00-5.20); White Blood Count* 7.43 K/uL (4.50-11.00)
[2022-06-12 14:21] LABS: Basophils Absolute Auto 0.05 K/uL (0.00-0.30); Basophils Percent Auto 0.7 % (0.0-3.0); Eosinophils Absolute Auto 0.23 K/uL (0.00-0.50); Eosinophils Percent Auto 3.1 % (0.0-7.0); Immature Granulocytes Abs Auto 0.07 K/uL (0.00-0.30); Immature Granulocytes Pct Auto 0.9 %; Lymphocytes Absolute Auto 1.53 K/uL (0.90-2.90); Neutrophils Absolute Auto 5.11 K/uL (1.7-7.0)
[2022-06-12 14:25] LABS: Slide Review Reflex No
[2022-06-12 14:43] LABS: Chloride* 110 mmol/L (96-114); Potassium* 4.4 mmol/L (3.6-5.1); Sodium* 141 mmol/L (135-149)
[2022-06-12 14:45] LABS: Creatinine* 0.8 mg/dL (0.5-1.5); Est. Creatinine Clearance* 79.13; Estimated Glomerular Filt Rate 85 ml/min
[2022-06-12 14:46] LABS: Blood Urea Nitrogen* 18 mg/dL (7-30); Calcium* 8.6 mg/dL (8.4-10.6); Carbon Dioxide* 27 mmol/L (20-32); Glucose* 106 mg/dL (60-115)
--- NOTE | 2022-06-12 14:48 | ED.NURSE ---
Report given to [facility] Neuro AEROSPACE MEDICINE PHYSICIAN. Dispatch notified.
[2022-06-12 14:50] LABS: INR 0.89 (0.91-1.10); Prothrombin Time 12.6 Seconds
[2022-06-12] MEDS: LORazepam 2 MG/ML inj 1 MG IV (14:50)
[2022-06-12 14:57] LABS: Troponin I* 0.02 ng/mL (0.01-0.04)
[2022-06-12] MEDS: SUCCINYLCHOLINE 20 MG/ML INJ 140 MG IVP (15:03)
[2022-06-12] MEDS: ETOMIDATE 2 MG/ML inj 20 MG IV (15:03)
[2022-06-12] MEDS: propofoL 1,000 MG/100 ML ML 25.86 MG IVPB (15:11)
[2022-06-12] MEDS: 0.9 % SODIUM CHLORIDE 1000 ml 1,000 ML 200 ML IV (15:11)
[2022-06-12] MEDS: LABETALOL HCL 5 MG/ML inj 20 MG IVP (15:12)
[2022-06-12] MEDS: PROPOFOL 10 MG/ML INJ 100 MG IVP (15:15)
--- NOTE | 2022-06-12 15:32 | ED.NURSE ---
Patient's daughter Bobbi was updated via telephone by patient advocate Marlen at 1553 with information on her condition and transfer plan.
[2022-06-12] MEDS: fentaNYL 100 MCG/2 ML inj 50 MCG IVP (15:37)
--- NOTE | 2022-06-12 15:40 | ED.NURSE ---
Report given to EMS. EMS will now assume care.
--- NOTE | 2022-06-12 15:45 | ED.NURSE ---
Update on intubation given to KAYLA Frazier Neuro VEGETABLE SORTER.
[2022-06-12 16:05] LABS: Amphetamine Screen Urine Negative (Negative); Barbiturate Screen Urine Negative (Negative); Benzodiazepines Screen Urine Negative (Negative); Cocaine Screen Urine Negative (Negative); Methadone Screen Urine Negative (Negative); Opiate Screen Urine Negative (Negative); Oxycodone Screen Urine Negative (Negative); Phencyclidine Screen Urine Negative (Negative); Tricyclic Antidepressant Urine Negative (Negative)
[2022-06-12 16:07] LABS: Cannabinoid Screen Urine POSITIVE (Negative); Methamphetamines Screen Urine POSITIVE (Negative)
--- NOTE | 2022-06-12 16:19 | ED.NURSE ---
KAYLA Monahan Neuro EMERGENCY ROOM ORDERLY updated with Utox results: THC+, Meth+.
== END 2022-06-12 15:40 | disposition home or self-care (01) ==
PROVIDERS: Emergency Provider Emergency Medicine Emergency Medical Services
DX: I62.9 Nontraumatic intracranial hemorrhage, unspecified (principal); R56.9 Unspecified convulsions
CPT/HCPCS: 31500; 36415; 70450; 71045; 72125; 80048; 80306; 84484; 85025; 85610; 93005; 94761; 96365; 96366; 96375; 99285; 99291; 99292; J0330; J1953; J2060; J2704; J3010; J7030

== ENCOUNTER 2022-06-12 15:18 | Outpatient (CLI) | payer MEDICARE, SELFPAY | END 2022-06-12 15:19 | disposition home or self-care (01) | LOC: AMB 06-13 10:01 | PROVIDERS: Visit Provider Emergency Medicine Emergency Medical Services | DX: I61.4 Nontraumatic intracerebral hemorrhage in cerebellum (principal) | CPT/HCPCS: A0425; A0434 ==

== ENCOUNTER 2022-09-09 18:53 | Outpatient (CLI) | payer MEDICARE, SELFPAY ==
--- OUTSIDE RECORDS SUMMARY | 2022-09-11 11:51 | XMS_ITS | Continuity of Care Document ---
Author Name Unknown Organization [facility] Address [address] [place] [address] [place] [address] Phone Care Team Providers Care Scrip Clerk Name Role Phone Will Yaya MARTINES Unavailable Unavailabl e Allergies, Adverse Reactions, Alerts Substance Reaction Status Criticality ibuprofen Active No Information acetaminophen Active No Information Medications Medication Instructions Dosage Effective Dates (start - stop) Status Comments Paxil 20 mg Tab - Active gabapentin 300 mg Cap - Active lovastatin ER 20 mg 24 hr Tab - Active clonazepam 1 mg Tab - Active atenolol 50 mg Tab - Active omeprazole 20 mg Cap, Delayed Release 20 MG - Active Procedures Procedure Date OFFICE/OUTPATIENT VISIT, EST OFFICE/OUTPATIENT VISIT, EST OFFICE/OUTPATIENT VISIT, EST OFFICE/OUTPATIENT VISIT, EST ASSESS HLTH/BEHAVE, INIT OFFICE/OUTPATIENT VISIT, EST OFFICE/OUTPATIENT VISIT, NEW Advance Directives Directive Yes / No Effective Date File Name No Information Encounters Encounter Description Practice Location Reason(s) For Visit Diagnoses Date Provider Providers Copied on Encounter [facility], [address] [place] [address], [id number] , [place] tel:[phone] [facility] No Information [address] [facility] [place], [place], [id number], [place]. tel:[phone] OFFICE/OUTPA TIENT VISIT, EST [facility], [address] [facility] [place], [place], [id number] , [place] tel:[phone] [facility] [place] chronic pain (chief complaint) Degeneration of cervical intervertebral discCervicalgiaLumba goSciatica Due To Displacement Of Lumbar DiscIntervertebral disc disorder with myelopathy, lumbar region 4 [facility]. [address] [place], [address], [place]. tel:[phone] Referring Provider: Yaya Bui, [address] [place], [address] . tel:[phone] OFFICE/OUTPA TIENT VISIT, [facility], [address] [place], [id number] , [place] tel:[phone] [facility] chronic pain (chief complaint) Degeneration of cervical intervertebral discCervicalgiaLumba goSciatica Due To Displacement Of Lumbar DiscTherapeutic Drug Monitoring 4 [facility]. [address] [place], [address], [place]. tel:[phone] Referring Provider: Yaya Bui, [address] [place], [address] . tel:[phone] OFFICE/OUTPA TIENT VISIT, [facility], [address] [place], [id number] , [place] tel:[phone] [facility] chronic pain (chief complaint) CervicalgiaDegenerat ion of cervical intervertebral discLumbagoSciatica Due To Displacement Of Lumbar Disc 4 [facility]. [address] [place], [address], [place]. tel:[phone] Referring Provider: Yaya Bui, [address] [place] [place], [address] . tel:[phone] OFFICE/OUTPA TIENT VISIT, [facility], [address] [place], [id number] , [place] tel:[phone] [facility] chronic pain (chief complaint) LumbagoDegeneration of thoracic or thoracolumbar intervertebral discDisplacement of lumbar intervertebral disc without myelopathyCervicalgi a 2 Will Yaya. [address] [place], [id number], [place]. tel:[phone] Referring Provider: Yaya Bui, [facility] [place], [address] . tel:[phone] [facility], [address] [place], [id number] , [place] tel:[phone] [facility] A[place] Lumbago [address] [place], [id number], [place]. tel:[phone] Referring Provider: Yaya Bui, [facility] [place], [address] . tel:[phone] OFFICE/OUTPA TIENT VISIT, [facility], [address] [place], [id number] , [place] tel:[phone] [facility] chronic pain (chief complaint) Brachial neuritis or radiculitis nosDegeneration of thoracic or thoracolumbar intervertebral discPain in thoracic spineLumbagoDisplace ment of lumbar intervertebral disc without myelopathy 2 Will Yaya. [address] [place], [id number], [place]. tel:[phone] Referring Provider: Yaya Bui, [facility] [place], [address] . tel:[phone] OFFICE/OUTPA TIENT VISIT, [facility], [address] [place], [id number] , [place] tel:[phone] [facility] chronic pain (chief complaint) Brachial neuritis or radiculitis nosDegeneration of cervical intervertebral discLumbagoDisplacem ent of lumbar intervertebral disc without myelopathy 2 Will Yaya. [address] [place], [id number], [place]. tel:[phone] Referring Provider: Yaya Bui, [address] [facility] [place], [address] . tel:[phone] Family History Family Member Type Diagnosis Age At Onset Mother, sisters and Problem (finding) degenerative dis cs and back pain Payers Payer name Insurance type Covered alliance party ID Authorkathy fernandez(s) Medicare [place] [id number] Social History Type Description Quantity Date Captured Comments Sex Female Smoking Status No Information Chief Complaint And Reason For Visit No Information Reason For Referral Reason For Referral No Information Plan Of Treatment Date Type Action Status No Information History Of Present Illness Encounter Date Complaint History Of Prese nt Illness No Information Functional Status Date Functional Assessmen t No Information Instructions Date Instruction Additional Infor mation Follow exercise program Continue current medication Activity as tolerated Patient did not brin g medications to office visit today. Depression Screen Oswestry Score Continue current medication Follow exercise program Activity as tolerated need to wean down on the doses o f opioids Assessments Type Assessment Date No Information Patient Care Teams Name Effective Dates (start - stop) Status Members No Information
--- OUTSIDE RECORDS SUMMARY | 2022-09-11 11:52 | XMS_ITS | Continuity of Care Document ---
Author Name Unknown Organization [facility] Address [address] [place] [address] Phone Care Team Providers Care Deputy Clerk Name Role Phone Unavailable Unavailable Unavailable Procedures Procedure Date Office/outpatient visit,[facility] 2010 Advance Directives Directive Yes / No Effective Date File Name No Information Encounters Encounter Description Practice Location Reason(s) For Visit Diagnoses Date Provider Providers Copied on Encounter [facility] [place], [address] [place] [address], [facility], tel:[phone] [email or web address] No Information Blair-0 2-201 1 No Information Office/outpat ient visit,[facility], [facility] [place], [address] [address], [place], [place], [facility], [place] tel:[phone] [email or web address] No Information Blair-0 2-201 1 Jose M Loganothy. [facility] [place], [address], [address], [id number], . tel:[phone] Referring Provider: Cooper Maria, [address], [place], [address]. tel:[phone] Family History Family Member Type Diagnosis Age At Onset No Information Payers Payer name Insurance type Covered constitution party ID Authormihaelaa jim(s) Medicare [place] [id number] [facility] [id number] [id number] Social History Type Description Quantity Date Captured Comments Sex Female Smoking Status No Information Vital Signs Date / Time: Height Weight BMI Pulse Rate Blood Pressure Temperature Respiratory Rate Body Surface Area Head Circumference Head Circ. Percentile Wt./Marek. Percentile BMI percentile Pulse Ox Inhaled Ox 12:46 PM 68.30 in 99.700 kg (219.40 lbs) 33.1 7 kg/m eter (2) 68 /min 133/81 mm[Hg] Chief Complaint And Reason For Visit No Information Reason For Referral Reason For Referral No Information Plan Of Treatment Date Type Action Status No Information History Of Present Illness Encounter Date Complaint History Of Prese nt Illness No Information Functional Status Date Functional Assessmen t No Information Instructions Date Instruction Additional Infor mation No Information Assessments Type Assessment Date No Information Patient Care Teams Name Effective Dates (start - stop) Status Members No Information
== END 2022-09-09 18:54 | disposition home or self-care (01) ==
LOC: AMB 09-11 11:49
PROVIDERS: Visit Provider Family Medicine
DX: R53.1 Weakness (principal)
CPT/HCPCS: A0425; A0429

== ENCOUNTER 2022-11-29 15:42 | Outpatient (RCR) | payer SELFPAY | END 2023-11-18 15:45 | disposition home or self-care (01) | LOC: MOW 15:42 | PROVIDERS: PCP Family Medicine; Visit Provider Family Medicine | DX: Z76.0 Encounter for issue of repeat prescription (principal) | CPT/HCPCS: S5170 ==

== ENCOUNTER 2023-04-03 22:50 | Emergency (ER) | payer MEDICARE, SELFPAY ==
[2023-04-03 22:53] VITALS: BP 121/71; PULSE 84; RESP 18; TEMP 36.1; O2SAT 98
--- NOTE | 2023-04-03 23:14 | ED.ANIMALBIT ---
HPI - Animal Bite General Time Seen by Provider: 23:15 Date Seen: 04/03/23 Chief Complaint: Animal Bite Stated Complaint: Cat bite Time Seen by Provider: 04/03/23 22:52 Source: patient, RN notes reviewed and old records reviewed Mode of arrival: ambulatory Limitations: no limitations History of Present Illness HPI narrative: 62-year-old female who comes today with cat bite of the right hand. Patient's cat bit her on the right hand when it was finding with another CT. Her cat is 2 years old, is not outside but is not vaccinated, no rabies shots. Related Data Home Medications Medication Instructions Recorded Confirmed amlodipine 5 mg tablet 5 mg PO DAILY 01/17/22 01/17/22 baclofen 5 mg tablet 5 mg PO TID 01/17/22 01/17/22 buprenorphine 8 mg-naloxone 2 mg 1 film sublingual DAILY 01/17/22 01/17/22 sublingual film (Suboxone) nicotine patch 01/17/22 oxybutynin chloride 5 mg 5 mg PO DAILY 01/17/22 01/17/22 tablet,extended release 24 hr pantoprazole 40 mg tablet,delayed 40 mg PO BID 01/17/22 01/17/22 release paroxetine HCl 30 mg tablet 60 mg PO DAILY 01/17/22 01/17/22 pregabalin 150 mg capsule (Lyrica) 150 mg PO BID 01/17/22 01/17/22 rosuvastatin 5 mg tablet 5 mg PO HS 01/17/22 01/17/22 sennosides 8.6 mg capsule (senna) 8.6 mg PO BID 01/17/22 01/17/22 Previous Rx's Medication Instructions Recorded cephalexin 500 mg capsule 500 mg PO TID #15 caps 01/18/22 amoxicillin 875 mg-potassium 1 tab PO Q12H #10 tabs 04/03/23 clavulanate 125 mg tablet Allergies Allergy/AdvReac Type Severity Reaction Status Date / Time celecoxib Allergy Unknown Verified 01/17/22 03:19 ibuprofen [From Motrin] Allergy Unknown Verified 01/17/22 03:19 naproxen Allergy Unknown Verified 01/17/22 03:19 acetaminophen [From Tylenol] Allergy Unknown Verified 01/17/22 03:19 atorvastatin [From Lipitor] Allergy Verified 01/17/22 03:19 buspirone [From BuSpar] Allergy Unknown Verified 01/17/22 03:19 gabapentin [From Neurontin] Allergy Verified 01/17/22 03:19 sertraline [From Zoloft] Allergy Unknown Verified 01/17/22 03:19 prednisone AdvReac gingivitis Verified 01/17/22 03:19 [facility] Medical History (Updated 04/03/23 @ 23:21 by Cooper Martins MD) Gastroesophageal reflux ?K21.9 - Gastro-esophageal reflux disease without esophagitis (ICD-10) Depression ?F32.A - Depression, unspecified (ICD-10) Cognitive impairment ?R41.89 - Other symptoms and signs involving cognitive functions and awareness (ICD-10) Substance abuse ?F19.10 - Other psychoactive substance abuse, uncomplicated (ICD-10) Chronic pain ?G89.29 - Other chronic pain (ICD-10) Intracerebral hemorrhage ?I61.9 - Nontraumatic intracerebral hemorrhage, unspecified (ICD-10) Surgical History (Updated 01/17/22 @ 12:03 by Tony Peng MD) H/O Achilles tendon repair ?Z98.890 - Other specified postprocedural states (ICD-10) History of appendectomy ?Z90.49 - Acquired absence of other specified parts of digestive tract (ICD-10) History of lumbar laminectomy ?Z98.890 - Other specified postprocedural states (ICD-10) H/O cervical spine surgery ?Z98.890 - Other specified postprocedural states (ICD-10) Family History (Updated 01/17/22 @ 12:04 by Tony Peng MD) Mother Breast cancer Diabetes Stroke Sister Breast cancer Daughter Diabetes Father Heart disease Social History (Updated 01/17/22 @ 12:06 by Tony Peng MD) Narrative: She lives in the home with roommates. She tells me that she owns the home but has been delinquent in mortgage payments and is at risk for foreclosure. She is a smoker. Smoking Status: Unknown if ever smoked Non-prescribed substance use: amphetamines/methamphetamines service: No Exam Narrative: Exam Narrative: General: well nourished , NAD Head: Atraumatic and normocephalic ENT: External ears and external nose are normal Eyes: Conjunctiva clear, pupils are equal reactive, external ocular motions are intact Neck: Full spontaneous range of motion of the neck Lungs: No respiratory distress Musculoskeletal: No tenderness or deformity Neurologic: No gross focal neurologic deficits Skin: 2 puncture wounds overlying the 5th metacarpal of the right hand, 2 cm laceration on the dorsum of the right hand overlying the 3rd and 4th metacarpals. Psych: Mood and affect are appropriate Const: Vital Signs, click to edit/add: Vital Signs - 24 hr 04/03/23 22:53 Temperature 97.0 F L Pulse Rate [Left P ulse Oximeter] 84 Respiratory Rate 18 Blood Pressure [Le ft Upper Arm] 121/71 Pulse Oximetry 98 Oxygen Delivery Me thod Room Air Course Course ED Course: Patient seen and examined, prior records are reviewed. Patient presents today with cat bite. There couple puncture wounds but 1 longer laceration that goes right over 1 of the superficial veins of the right hand. We discussed risks and benefits of closure of this in given the gap in the fact is over the vein, sutures will be placed. Patient will be started on antibiotics, tetanus shot updated. Animal is observable and has been inside all his life, rabies risk slow. Procedure laceration repair, right hand, dorsum, 2 cm full-thickness. Risks and benefits were discussed with the patient, verbal consent was obtained. Area was prepped with wound cleanser. Wound was explored and no foreign bodies were found. Wound was closed with 2 6-0 Ethilon simple interrupted sutures. We discussed wound care and patient is discharged. Vital Signs Vital signs: Initial Vital Signs Temperature 97.0 F L 04/03/23 22:53 Temperature Source Temporal Artery Scan 04/03/23 22:53 Pulse Rate 84 04/03/23 22:53 Pulse Rhythm Regular 04/03/23 22:53 Respiratory Rate 18 04/03/23 22:53 Blood Pressure 121/71 04/03/23 22:53 Blood Pressure Mean 87 04/03/23 22:53 Blood Pressure Position Sitting 04/03/23 22:53 Pulse Oximetry 98 04/03/23 22:53 Oxygen Delivery Method Room Air 04/03/23 22:53 Vital Signs Temperature 97.0 F L 04/03/23 22:53 Pulse Rate 84 04/03/23 22:53 Respiratory Rate 18 04/03/23 22:53 Blood Pressure 121/71 04/03/23 22:53 Pulse Oximetry 98 04/03/23 22:53 Oxygen Delivery Method Room Air 04/03/23 22:53 Temperature 97.0 F L 04/03/23 22:53 Pulse Rate 84 04/03/23 22:53 Respiratory Rate 18 04/03/23 22:53 Blood Pressure 121/71 04/03/23 22:53 Pulse Oximetry 98 04/03/23 22:53 Oxygen Delivery Method Room Air 04/03/23 22:53 Discharge Plan Discharge Clinical Impression: Cat bite Patient Disposition: Home, Self-Care Condition: Stable Instructions: Animal Bite (ED) Additional Instructions: Wash daily with soap and water and apply dressing as desired. Sutures should be removed in 7 days with your primary care doctor or return to the emergency depart Take antibiotics as prescribed Activity Level: Activity as Tolerated Discharge Diet: Regular Prescriptions: New amoxicillin-pot clavulanate 875-125 mg tablet 1 tab PO Q12H Qty: 10 0RF No Action amlodipine 5 mg tablet 5 mg PO DAILY baclofen 5 mg tablet 5 mg PO TID buprenorphine-naloxone [Suboxone] 8-2 mg film 1 film sublingual DAILY oxybutynin chloride 5 mg tablet extended release 24hr 5 mg PO DAILY pantoprazole 40 mg tablet,delayed release (DR/EC) 40 mg PO BID paroxetine HCl 30 mg tablet 60 mg PO DAILY pregabalin [Lyrica] 150 mg capsule 150 mg PO BID rosuvastatin 5 mg tablet 5 mg PO HS senna 8.6 mg capsule 8.6 mg PO BID Rx Instructions: 1-4 tabs BID nicotine patch Rx Instructions: 1 patch daily cephalexin 500 mg capsule 500 mg PO TID Qty: 15 0RF Follow Up/Referrals: Enrico Felton DO [Primary Care Provider] - Stand Alone Forms: [facility] Info Instructions
[2023-04-03] MEDS: AMOXICILLIN/CLAVULANATE 875 mg/125 mg TABLET PO (23:30)
[2023-04-03] MEDS: TETANUS/DIPHTH/PERTUSSIS 0.5 ML SYRINGE IM (23:31)
== END 2023-04-03 23:43 | disposition home or self-care (01) ==
PROVIDERS: Emergency Provider Family Medicine; PCP Family Medicine
DX: S61.451A Open bite of right hand, initial encounter (principal); W55.01XA Bitten by cat, initial encounter
CPT/HCPCS: 12001; 90471; 90715; 99284; A9270

== ENCOUNTER 2023-04-22 06:31 | Outpatient (CLI) | payer MEDICARE, SELFPAY ==
--- OUTSIDE RECORDS SUMMARY | 2023-04-26 | XMS_ITS | Encounter Summary ---
Author Name Unknown Organization [place] Address [address] [place] [id number] Care Team Providers Care Programmer Or Analyst Name Role Phone Edu Crawford DPM Unavailable [phone] Enrico Felton DO Unavailable [phone] Maddie Mae Unavailable Unavailable Enrico Felton DO Primary Care Provider [phone] Encounter Details Date Type Department Care Team (Late st Contact Info) Description 12/26/2022 [facility] Medical Advice [address] [address] Melida Pickering, SPACE SCIENCES DIRECTOR Social History Tobacco Use Types Packs/Day Years Used Date Smoking Tobacco: Every Day Cigarettes 1 Smokeless Tobacco: Never Alcohol Use Standard Drinks/Week Comments No 0 (1 standard drink = 0.6 oz pur e alcohol) Social Connection and Isolation Panel [NHANES] A nswer Date Recorded In a typical week, how many times do you talk on the phone with family, friends, or neighbors? Twice a week 02/20/2022 How often do you get togethe r with friends or relatives? Never 02/20/2022 How often do you attend amish or cheondoism serv ices? Patient declined 02/20/2022 Do you belong to any clubs o r organizations such as amish groups, unions, fraternal or athletic groups, or school groups? No 02/20/2022 Attends Club or Organization Meetings Not on rod e 02/20/2022 Are you , , di vorced, , never , or living with a partner? 02/20/2022 AUDIT-C Answer Date Recorded Q1: How often do you have a drink containing alcohol? Never 02/20/2022 Q2: How many drinks containi ng alcohol do you have on a typical day when you are drinking? Patient does not drink Q3: How often do you have si x or more drinks on one occasion? Never 02/20/2022 Overall Financial Resource Strain (CARDIA) Answe r Date Recorded How hard is it for you to pa y for the very basics like food, housing, medical care, and heating? Hard 02/20/2022 PHQ-2 Answer Date Recorded PHQ-2 Score 1 02/20/2022 [facility] - Occupational Stress Questionnaire Answer Date Recorded Do you feel stress - tense, restless, nervous, or anxious, or unable to sleep at night because your mind is troubled all the time - these days? To some extent 02/20/2022 Exercise Vital Sign Answer Date Recorde d On average, how many days pe r week do you engage in moderate to strenuous exercise (like a brisk walk)? 0 days 02/20/2022 On average, how many minutes do you engage in exercise at this level? 0 min 02/20/2022 Hunger Vital Sign Answer Date Recorded Within the past 12 months, y ou worried that your food would run out before you got the money to buy more. Often true Within the past 12 months, t he food you bought just didn't last and you didn't have money to get more. Sometimes true 07/2021 PRAPARE - Transportation Answer Date Re corded In the past 12 months, has l ack of transportation kept you from medical appointments or from getting medications? Yes 07/2021 In the past 12 months, has l ack of transportation kept you from meetings, work, or from getting things needed for daily living? Yes 02/20/2022 Housing Stability Vital Sign Answer Chente e Recorded In the last 12 months, was t here a time when you were not able to pay the mortgage or rent on time? Yes 02/20/2022 In the last 12 months, how many places have you lived? 1 02/20/2022 In the last 12 months, was t here a time when you did not have a steady place to sleep or slept in a usp (including now)? No 02/20/2022 Adolescent Education Answer Date Record ed Getting School Help Needed Not on file 12/20 Sex and Gender Information Value Date Recorded Sex Assigned at Not on file Gender Identity Not on file Sexual Orientation Not on file documented as of this encounter Plan of Treatment Not on file documented as of this encounter Goals Goal Patient Goal Type Associated Problems Recent Progress Patient-Stated? 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 per 09/01/16 prison librarian note; left foot tissue 10/08/16 10/11/2018 02/27/2019 Assessment Noted Time PHQ-9 Depression Total Score: 5 02/21/20 22 2:07 PM MANAGER OF GLOBAL documented as of this encounter Care Teams Programmer Or Analyst Relationship Specialty [place] [address] [place] [address] PCP - General Family Medicine 06/30/22 Edu Crawford DPM [id number] [facility] [address] [place] [address] Podiatry 10/18/16 [place] [address] [place] [address] Assigned PCP 08/29/20 Maddie Mae Personal Advocate & Liaison (PAL) Family Medicine 12/28/21 documented as of this encounter
--- OUTSIDE RECORDS SUMMARY | 2023-04-26 | XMS_ITS | Encounter Summary ---
Author Name Unknown Organization [place] Address [address] [place] [address] Care Team Providers Care Circus Artist Name Role Phone Edu Crawford DPM Unavailable [phone] Enrico Felton DO Unavailable [phone] Maddie Mae Unavailable Unavailable Enrico Felton DO Primary Care Provider [phone] Encounter Details Date Type Department Care Team (Late st Contact Info) Description 01/08/2023 [facility] Medical Advice [address] [address] Melida Pickering, ENCEPHALOGRAPHER Social History Tobacco Use Types Packs/Day Years [...] Never 02/20/2022 How often do you attend druze or hinduism serv ices? Patient declined 02/20/2022 Do you belong to any clubs o r organizations such as druze groups, unions, fraternal or athletic groups, or [...] Answer Date Recorded PHQ-2 Score 1 02/20/2022 [facility] - Occupational [...] place to sleep or slept in a group home (including now)? No 02/20/2022 Adolescent Education Answer [...] Author Financial Wellbeing General Yes Rosey Alexander, PHARMACY ANALYST documented as of this encounter Visit Diagnoses Not on filedocumented in this encounter Additional Health Concerns Infection Onset Date Last Indicated Resolved Time 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 per 09/01/16 ad taker note; left foot tissue 10/08/16 10/11/2018 02/27/2019 Assessment Noted Time PHQ-9 Depression Total Score: 5 02/21/20 22 2:07 PM PSYCHOTHERAPIST COUNSELOR documented as of this encounter Care Teams Circus Artist Relationship Specialty [place] [address] [place] [address] PCP - General Family Medicine 06/30/22 [place] [id number] [facility] [address] [place] [address] Podiatry 10/18/16 [place] [address] [place] [address] Assigned PCP 08/29/20 Maddie Mae Personal Advocate & Liaison (PAL) Family Medicine 12/28/21 documented as of this encounter
--- OUTSIDE RECORDS SUMMARY | 2023-04-26 | XMS_ITS | Encounter Summary ---
Author Name Unknown Organization [place] [facility] Address [address] [place] [address]. [place] [address] Care Team Providers Care Advertising Sales Associate Name Role Phone Yvette Edu DPBharath Unavailable [phone] Enrico Felton DO Unavailable [phone] Maddie Mae Unavailable Unavailable Enrico Felton DO Primary Care Provider [phone] Reason for Visit * Reason Onset Date Comments Patient Request 11/13/2022 Encounter Details Date Type Department Care Team (Late st Contact Info) Description 11/13/2022 Telephone [facility] [id number] [place] [phone] [place] [address] [place] [address] Patient Request Social History Tobacco Use Types Packs/Day Years [...] Never 02/20/2022 How often do you attend mandaeism or moravian serv ices? Patient declined 02/20/2022 Do you belong to any clubs o r organizations such as mandaeism groups, unions, fraternal or athletic groups, or [...] Answer Date Recorded PHQ-2 Score 1 02/20/2022 [facility] - Occupational Stress [...] place to sleep or slept in a correction (including now)? No 02/20/2022 Sex and Gender Information Value Date Recorded Sex Assigned at Not on file Gender Identity Not on file Sexual Orientation Not on file COVID-19 Exposure Response Date Recorded In the last 10 days, have yo u been in contact with someone who was confirmed or suspected to have Coronavirus/COVID-19? No / Unsure 11/13/2022 9:32 AM CDT documented as of this encounter Miscellaneous Notes * Telephone Encounter - Tessa Radford RN - 11/14/2022 9:43 AM CDT I agree a home well check would be appropriate if patient does not make her next scheduled appointment. I believe I last saw patient in February 2022. 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 [phone] marisela palencia digital content coordinator calling. Past appts looked concerning, this pt is in a facility. I was wondering if we should let the care team know that if this appt is no showed again maybe a home well check is in order? CSOL lead recommended I send a TE Date of last appointment with provider: Hosp Follow-up currently sked for 11/16 at [place] christiane Guerra for soonest. Could we send this information to you in [employer] or would you prefer to receive a phone call?: No preference Okay to leave a detailed message?: No at Other phone number: No callback this is just informative msg documented in this encounter Plan of Treatment Not on file documented as of this encounter Goals Goal Patient Goal Type Associated Problems Recent Progress Patient-Stated? Author Financial Wellbeing General Yes Rosey Alexander, ASSEMBLER WATCH TRAIN documented as of this encounter Visit Diagnoses Not on filedocumented in this encounter Additional Health Concerns Infection Onset Date Last Indicated Resolved Time 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 per 09/01/16 gambling dealer note; left foot tissue 10/08/16 10/11/2018 02/27/2019 Assessment Noted Time PHQ-9 Depression Total Score: 5 02/21/20 22 2:07 PM PRICER documented as of this encounter Care Teams Advertising Sales Associate Relationship Specialty [place] [address] [place] [address] PCP - General Family Medicine 06/30/22 Edu Crawford DPM [address] [place] [address] [address] [place] [address] Podiatry 10/18/16 [place] [address] [place] [address] Assigned PCP 08/29/20 Maddie aMe Personal Advocate & Liaison (PAL) Family Medicine 12/28/21 documented as of this encounter
--- OUTSIDE RECORDS SUMMARY | 2023-04-26 | XMS_ITS | Clinical Summary ---
Author Name Unknown Organization [place] Address [address] [place] [address] Care Team Providers Care Advertising Account Representative Name Role Phone Edu Crawford DPM Unavailable [phone] Enrico Felton DO Unavailable [phone] Maddie Mae Unavailable Unavailable Enrico Felton DO Primary Care Provider [phone] Allergies Active Allergy Reactions Criticality Noted Date Comments Acetaminophen 05/10/2013 Other reaction(s): Gastric Reflux Atorvastatin Rash Low Buspirone Unknown 10/20/2013 dizzy Celecoxib Body gets stiff Gabapentin Body stiffness Ibuprofen Unknown 10/20/2013 Stomach upset. She reported that she will take if needs something. Naproxen 06/27/2011 Body stiffness Upsets stomach Nsaids Other (See Comments) 06/28/2011 bruises Prednisone Other (See Comments) 10/15/2013 Sores in her mouth and doesn't like what it does to her Sertraline Cramping, flatulence Medications Medication Sig Dispensed Refills Start Date End Date Status pregabalin (LYRICA) 150 MG capsuleIndications:Sp asticity Take 1 capsule (150 mg) by mouth 2 times daily for 30 days 60 capsule 0 10/25/2021 Active PARoxetine (PAXIL) 30 MG tabletIndications:[facility],Anxiety and depression Take 2 tablets (60 mg) by mouth daily 180 tablet 4 02/20/2022 Active lisinopril (ZESTRIL) 20 MG tabletIndications:Ess ential hypertension Take 1 tablet (20 mg) by mouth daily 90 tablet 4 02/20/2022 Active amLODIPine (NORVASC) 5 MG tabletIndications:Ess ential hypertension Take 1 tablet (5 mg) by mouth daily 90 tablet 4 02/20/2022 Active pantoprazole (PROTONIX) 40 MG EC tabletIndications:Gas troesophageal reflux disease, unspecified whether esophagitis present Take 1 tablet (40 mg) by mouth daily 90 tablet 4 02/20/2022 Active rosuvastatin (CRESTOR) 5 MG tabletIndications:Hyp erlipidemia with target LDL less than 100 Take 1 tablet (5 mg) by mouth daily 90 tablet 3 03/20/2022 Active buprenorphine HCl-naloxone HCl (SUBOXONE) 8-[address] 1 Film under the tongue daily 0 Active levETIRAcetam (KEPPRA) 1000 MG tablet Take 1,000 mg by mouth 2 times daily 0 Active thiamine (B-1) 100 MG tabletIndications:Mil d protein-calorie malnutrition (H24) Take 1 tablet (100 mg) by mouth daily 30 tablet 0 09/18/2022 Active folic acid (FOLVITE) 1 MG tabletIndications:Mil d protein-calorie malnutrition (H24) Take 1 tablet (1 mg) by mouth daily 30 tablet 0 09/18/2022 Active Active Problems Problem Noted Date Diagnosed Date Acute cystitis without hematuria 09/10/2022 Acute renal failure (H24) 09/10/2022 Acute renal failure, unspeci fied acute renal failure type (H24) 09/10/2022 Intraparenchymal hemorrhage of brain 09/27/2021 ICH (intracerebral hemorrhage) 09/17/2021 Idiopathic neuropathy 02/17/2019 Overview: Added automatically from request for surgery [id number] Ulcer of right foot with necrosis of bone 2018 Overview: Added automatically from request for surgery [id number] Osteomyelitis of fifth toe of right foot 019 Overview: Added automatically from request for surgery [id number] Hx of BKA, left 02/17/2019 Overview: Added automatically from request for surgery [id number] Smoker 02/17/2019 Overview: Added automatically from request for surgery [id number] Post-operative state 10/11/2018 Osteomyelitis 10/10/2018 Below knee amputation status, left 05/22/2017 Respiratory failure with hypoxia, unspecified ch ronicity 04/25/2017 Acute respiratory failure with hypoxia 8 Sepsis 04/01/2017 Pre-diabetes 03/06/2017 Overview: Lab Results Component Value Date A1C 6.0 02/21/2017 A1C 6.0 04/10/2013 A1C 6.1 01/09/2013 A1C 6.7 01/18/2012 Lost 70+ pounds and A1c has returned to prediabetes. Cellulitis 11/06/2016 Wound infection 10/06/2016 Left foot infection 09/01/2016 Fibromyalgia 08/24/2016 Essential hypertension 06/26/2013 [facility] 05/07/2013 Overview: EMERGENCY CARE PLAN Presenting Problem Signs and Symptoms Treatment Plan Questions or concerns during clinic hours I will call the clinic directly Questions or concerns outside clinic hours I will call the 24 hour nurse line at [phone] Patient needs to schedule an appointment I will call the 24 hour scheduling team at [phone] or clinic directly Same day treatment I will call the clinic first, nurse line if after hours, urgent care and express care if needed No active Care Coordination at this time. Hyperlipidemia with target LDL less than 100 Overview: Diagnosis updated by automated process. Provider to review and confirm. Peripheral neuropathy 11/28/2012 Pain management 09/12/2012 Overview: Failed - has been seeing other physicians, using relatives, buying illegal Rx meds as admitted 05/07/12. Will stay on maintenance methadone through PCP until seen by pain management. No other narcotics permitted. Narcotic addiction 09/12/2012 Overview: No longer being prescribed medications for pain control, limited dose for withdrawal management only. 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 Provider to review CARDIOVASCULAR SCREENING; LD L GOAL LESS THAN 160 05/17/2011 04/10/2013 Overview: Per quality 05/17/2011.Mannie Joe MA Encounters Date Type Department Care Team Description 01/23/2023 MyC Medical Advice [facility] [address] [place] [address] Chelsi Flores RN from Last 3 Months Immunizations Name Administration Dates Next Due COVID-19 Monovalent 18+ (Moderna) 10/12/2021,07/2020,08/23/2020 Influenza (H1N1) 04/01/2009 Influenza (IIV3) PF 12/21/2011, 9,12/26/2007,2006,02/02/2005 Influenza Vaccine 18-64 (Flublok) 02/17/2019 Influenza Vaccine 65+ (Fluzone HD) 02/16/2017 Influenza Vaccine >6 months,quad, PF 12/29/2021, 02/21/2017,02/11/2016 Pneumococcal 20 valent Conju gate (Prevnar 20) 02/20/2022 Pneumococcal 23 valent 04/22/2009 TD,PF 7+ (Tenivac) 01/15/2002 TDAP (Adacel,Boostrix) 02/20/2022 TDAP Vaccine (Adacel) 12/21/2011 Zoster recombinant adjuvante d (SHINGRIX) 02/20/2022,08/23/2020 Family History Medical History Relation Comments Cancer Father Breast Cancer Mother Cancer Mother Pancreatic Cancer Mother Cancer Sister 1 Breast Cancer Sister 2 Cancer Sister 2 Relation Status Comments Brother 1 Alive Brother 2 Alive Brother 3 Alive Daughter Alive Father Maternal Grandfather Maternal Grandmother Mother Paternal Grandfather Paternal Grandmother Sister 1 Alive Sister 2 Alive Sister 3 Alive Social History Tobacco Use Types Packs/Day Years Used Date Smoking Tobacco: Every Day Cigarettes 1 Smokeless Tobacco: Never Tobacco Cessation:Ready to Q uit: No; Counseling Given: Yes Alcohol Use Standard Drinks/Week Comments No 0 [...] Never 02/20/2022 How often do you attend scientology or yazidi serv ices? Patient declined 02/20/2022 Do you belong to any clubs o r organizations such as scientology groups, unions, fraternal or athletic groups, or [...] Answer Date Recorded PHQ-2 Score 1 02/20/2022 [facility] Occupat ional Health - Occupational Stress [...] place to sleep or slept in a chcf (including now)? No 02/20/2022 Adolescent Education Answer Date Record ed Getting School Help Needed Not on file 12/20 Sex and Gender Information Value Date Recorded Sex Assigned at Not on file Gender Identity Not on file Sexual Orientation Not on file Last Filed Vital Signs Vital Sign Reading Time Taken Comments Blood Pressure 130/78 09/17/2022 3:41 PM CDT Pulse 77 09/17/2022 3:41 PM CDT Temperature 36.1 ??C (96.9 ??F) 09/17/2022 3:41 PM CD T Respiratory Rate 14 09/17/2022 3:41 PM CDT Oxygen Saturation 97% 09/17/2022 3:41 PM CDT Inhaled Oxygen Concentration - - Weight 78.5 kg (173 lb 1.6 oz) 09/16/2022 5:21 A M CDT Height 172.2 cm (5' 7.8) 09/10/2022 2:00 AM CDT Body Mass Index 26.48 09/10/2022 2:00 AM CDT Plan of Treatment Health Maintenance Due Date Last Done Comments CT COLONOGRAPHY 1962 FLEX SIG 1962 sDNA (Cologuard) 1962 COLONOSCOPY 1972 HEPATITIS A IMMUNIZATION (1 of 2 - Risk 2-dose series) 1981 COLORECTAL CANCER SCREENING 07/19/2019 FIT 07/19/2019 07/18/2018, 08/18, 01/16/2013 HPV TEST 08/22/2021 08/22/2016, 0 08/2016, 01/18/2012 PAP 08/22/2021 08/22/2016, 01/18/2012 LUNG CANCER SCREENING 12/04/2021 12/04/2020, 018 PHQ-9 08/21/2022 02/20/2022, 0 09/2020, 01/21/2020, Additional history exists MAMMO SCREENING 09/07/2022 09/07/2020 COVID-19 Vaccine ( season) 2022 10/12/2021, 09/20/2020, 08/23/2020 INFLUENZA VACCINE (#1) 2022 , 02/17/2019, 02/21/2017, Additional history exists RSV VACCINE ( & 60+) (1 - 1-dose 60+ series) 2022 ANNUAL REVIEW OF HM ORDERS 02/20/2023 02/20/2022, MEDICARE ANNUAL WELLNESS VISIT 02/20/2023 02/20/2022, 06/21/2018, 08/22/2016, Additional history exists GLUCOSE 09/17/2025 09/17/2022, 07/0 03/2022, 09/15/2022, Additional history exists LIPID 02/20/2027 02/20/2022, 04/0 07/2018, 02/21/2017, Additional history exists ADVANCE CARE PLANNING 02/24/2027 02/24/2022 DTAP/TDAP/TD IMMUNIZATION (3 - Td or Tdap) 02/21/2032 02/20/2022, 12/21/2011, 01/15/2002 HEPATITIS C SCREENING Completed 04/05/2017, 017 DEPRESSION ACTION PLAN Completed 8, 11/12/2012, 11/23/2011 HIV SCREENING Completed 02/20/2022 Pneumococcal Vaccine: Pediatrics (0 to 5 Years) and At-Risk Patients (6 to 64 Years) Completed 02/20/2022, 04/22/2009 ZOSTER IMMUNIZATION Completed 02/20/2022, 1 HPV IMMUNIZATION Aged Out No longer e ligible based on patient's age to complete this topic IPV IMMUNIZATION Aged Out No longer e ligible based on patient's age to complete this topic MENINGITIS IMMUNIZATION Aged Out No l onger eligible based on patient's age to complete this topic RSV MONOCLONAL ANTIBODY Aged Out No l onger eligible based on patient's age to complete this topic Goals Goal Patient Goal Type Associated Problems Recent Progress Patient-Stated? Author Financial Wellbeing General Yes Rosey Alexander LSW Additional Health Concerns Infection Onset Date Last Indicated 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 per 09/01/16 director packaging note; left foot tissue 10/08/16 10/11/2018 02/27/2019 Advance Directives For more information, please contact: [phone] Latest Code Status on File Code Status Date Activated Date Inactivated Comments Full Code 09/10/2022 12:39 AM 09/17/2022 8:36 PM All b asic and advanced life-sustaining interventions are performed as appropriate Question Answer Comments Code status determined by: Discussion with patient/ legal decision maker Code Status History Code Status Date Activated Date Inactivated Comments Full Code 10/25/2021 8:19 AM 09/09/2022 7:53 PM Question Answer Comments Code status determined by: Discussion with patient/ legal decision maker Full Code 09/27/2021 3:02 PM 10/25/2021 8:19 AM All ba sic and advanced life-sustaining interventions are performed as appropriate Question Answer Comments Code status determined by: Discussion with patient/ legal decision maker Full Code 09/17/2021 7:51 PM 09/27/2021 2:52 PM All ba sic and advanced life-sustaining interventions are performed as appropriate Question Answer Comments Code status determined by: Discussion with patient/ legal decision maker Full Code 02/28/2019 10:49 AM 12/04/2020 1:25 PM Question Answer Comments Code status determined by: Discussion with patient/legal decision maker Care Teams Advertising Account Representative Relationship Specialty [place] [address] [place] [address] PCP - General Family Medicine 06/30/22 Edu Crawford D[place] [address] [facility] [address] [place] [address] Podiatry 10/18/16 [place] [address] [place] [address] Assigned PCP 08/29/20 Maddie Mae Personal Advocate & Liaison (PAL) Family Medicine 12/28/21
--- OUTSIDE RECORDS SUMMARY | 2023-04-26 | XMS_ITS | Encounter Summary ---
Author Name Unknown Organization [facility] Address [address] [place] [address]. [place] [address] Care Team Providers Care Luncheonette Manager Name Role Phone [place]and[place] Edu DPBharath Unavailable [phone] Enrico Felton DO Unavailable [phone] Maddie Mae Unavailable Unavailable Enrico Felton DO Primary Care Provider [phone] Reason for Visit * Reason Onset Date Comments Panel Management 01/08/2023 mammo Encounter Details Date Type Department Care Team (Late st Contact Info) Description 01/08/2023 Telephone [facility] [address] [place] [phone] [place] [id number] [place] [address] Panel Management (mammo) Social History Tobacco Use Types Packs/Day Years [...] Never 02/20/2022 How often do you attend holiness or oriental orthodox serv ices? Patient declined 02/20/2022 Do you belong to any clubs o r organizations such as holiness groups, unions, fraternal or athletic groups, or [...] PHQ-2 Score 1 02/20/2022 [facility] - Occupational Stress Questionnaire Answer Date Recorded [...] place to sleep or slept in a long-term (including now)? No 02/20/2022 Adolescent Education Answer Date Record ed Getting School Help Needed Not on file 12/20 Sex and Gender Information Value Date Recorded Sex Assigned at Not on file Gender Identity Not on file Sexual Orientation Not on file documented as of this encounter Miscellaneous Notes * Telephone Encounter - Melida Pickering CMA - 01/08/2023 8:35 AM CDT Summary: Patient is due/failing the following: MAMMOGRAM Reviewed: [] CARE EVERYWHERE [] LAST OV NOTE [] FYI TAB [] MYCHART ACTIVE? [] LAST PANEL ENCOUNTER [] FUTURE APPTS [] IMMUNIZATIONS [] Media Tab Action needed: mammo Type of outreach: Sent [employer] message. Melida Pickering/JAYCEE [facility] documented in this encounter Plan of Treatment Not on file documented as of this encounter Goals Goal Patient Goal Type Associated Problems Recent Progress Patient-Stated? Author Financial Wellbeing General Yes Rosey Alexander, SENIOR MOBILE WEB DEVELOPER documented as of this encounter Visit Diagnoses Not on filedocumented in this encounter Additional Health Concerns Infection Onset Date Last Indicated Resolved Time 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 per 09/01/16 helper metal hanging note; left foot tissue 10/08/16 10/11/2018 02/27/2019 Assessment Noted Time PHQ-9 Depression Total Score: 5 02/21/20 22 2:07 PM KNOT BUMPER documented as of this encounter Care Teams Luncheonette Manager Relationship Specialty [place] [address] [place] [address] PCP - General Family Medicine 06/30/22 Edu Crawford D[place] [address] [facility] [address] [place] [address] Podiatry 10/18/16 [place] [address] [place] [address] Assigned PCP 08/29/20 Maddie Mae Personal Advocate & Liaison (PAL) Family Medicine 12/28/21 documented as of this encounter
--- OUTSIDE RECORDS SUMMARY | 2023-04-26 | XMS_ITS | Encounter Summary ---
Author Name Unknown Organization [facility] Address [address] [place] [address] Care Team Providers Care Athletic Gear Custodian Name Role Phone Edu Crawford DPBharath Unavailable [phone] Enrico Felton DO Unavailable [phone] Maddie Mae Unavailable Unavailable Enrico Felton DO Primary Care Provider [phone] Encounter Details Date Type Department Care Team (Late st Contact Info) Description 01/23/2023 [facility] Medical Advice [facility] [address] [place] [address] Chelsi Flroes, ROQUE Social History Tobacco Use Types Packs/Day Years [...] Never 02/20/2022 How often do you attend congregation or confucianism serv ices? Patient declined 02/20/2022 Do you belong to any clubs o r organizations such as congregation groups, unions, fraternal or athletic groups, or [...] Date Recorded PHQ-2 Score 1 02/20/2022 [facility] Occupat ional Health - [...] Author Financial Wellbeing General Yes Rosey Alexander, MANAGER LANGUAGE documented as of this encounter Visit Diagnoses Not on filedocumented in this encounter Additional Health Concerns Infection Onset Date Last Indicated Resolved Time 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 per 09/01/16 ict development manager note; left foot tissue 10/08/16 10/11/2018 02/27/2019 Assessment Noted Time PHQ-9 Depression Total Score: 5 02/21/20 22 2:07 PM LENDING MANAGER documented as of this encounter Care Teams Athletic Gear Custodian Relationship Specialty Start [place] [address] [place] [address] PCP - General Family Medicine 06/30/22 Edu Crawford DPM [address] [facility] [address] [place] [address] Podiatry 10/18/16 [place] [address] [place] [address] Assigned PCP 08/29/20 Maddie Mae Personal Advocate & Liaison (PAL) Family Medicine 12/28/21 documented as of this encounter
--- OUTSIDE RECORDS SUMMARY | 2023-04-26 | XMS_ITS | Referral Summary ---
Author Name Unknown Organization [facility] Address [address] [place] [address] Care Team Providers Care Central Melt Specialist Name Role Phone Edu Crawford DPM Unavailable [phone] Enrico Felton DO Unavailable [phone] Maddie Mae Unavailable Unavailable Enrico Felton DO Primary Care Provider [phone] Encounters Date Type Department Care Team Description 01/23/2023 [facility] Medical Advice [facility] [address] [place] [address] Chelsi Flores RN from Last 3 Months Allergies Active Allergy Reactions Criticality Noted Date [...] 10/25/2021 Active PARoxetine (PAXIL) 30 MG tabletIndications:[facility] Shelter,Anxiety and depression Take 2 tablets (60 mg) [...] Overview: Added automatically from request for surgery [id number] Ulcer of right foot with necrosis of bone 2018 Overview: Added automatically from request for surgery [id number] Osteomyelitis of fifth toe of right foot 019 Overview: Added automatically from request for surgery [id number] Hx of BKA, left 02/17/2019 Overview: Added automatically from request for surgery [id number] Smoker 02/17/2019 Overview: Added automatically from request for surgery [id number] Post-operative state 10/11/2018 Osteomyelitis 10/10/2018 Below knee [...] 09/01/2016 Fibromyalgia 08/24/2016 Essential hypertension 06/26/2013 Health Shelter 05/07/2013 Overview: EMERGENCY CARE PLAN Presenting Problem Signs and Symptoms Treatment Plan Questions or concerns during clinic hours I will call the clinic directly Questions or concerns outside clinic hours I will call the 24 hour nurse line at [phone] Patient needs to schedule an appointment I will call the 24 hour scheduling team at [phone] or clinic directly Same day treatment I [...] 04/10/2013 Overview: Per quality 05/17/2011.Mannie Joe MA Immunizations Name Administration Dates Next Due COVID-19 [...] 12/21/2011 Zoster recombinant adjuvante d (SHINGRIX) 02/20/2022,08/23/2020 Social History Tobacco Use Types Packs/Day Years [...] Never 02/20/2022 How often do you attend pentecostal or jain serv ices? Patient declined 02/20/2022 Do you belong to any clubs o r organizations such as pentecostal groups, unions, fraternal or athletic groups, or [...] Answer Date Recorded PHQ-2 Score 1 02/20/2022 [facility]ational Stress Questionnaire Answer Date [...] 09/10/2022 2:00 AM CDT Plan of Treatment Not on file Goals Goal Patient Goal Type Associated Problems Recent Progress Patient-Stated? Author Financial Wellbeing General Yes Rosey Alexander LSW Additional Health Concerns Infection Onset Date Last Indicated 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 per 09/01/16 screen operator note; left foot tissue 10/08/16 10/11/2018 02/27/2019 Advance Directives For more information, please contact: [phone] Latest Code Status on File Code Status [...] Discussion with patient/legal decision maker Care Teams Central Melt Specialist Relationship Specialty [place] [address] [place] [address] PCP - General Family Medicine 06/30/22 [place] [address] [facility] [address] [place] [address] Podiatry 10/18/16 [place] [address] [place] [address] Assigned PCP 08/29/20 Maddie Mae Personal Advocate & Liaison (PAL) Family Medicine 12/28/21
--- OUTSIDE RECORDS SUMMARY | 2023-04-26 00:01 | XMS_ITS | Encounter Summary ---
Author Name Unknown Organization [facility] Address [address] [place] [address]. [place] [address] Care Team Providers Care Contact Worker Name Role Phone Edu Crawford DPBharath Unavailable [phone] Enrico Felton DO Unavailable [phone] Maddie Mae Unavailable Unavailable Enrico Felton DO Primary Care Provider [phone] Reason for Visit * Reason Onset Date Comments Follow Up 09/18/2022 Encounter Details Date Type Department Care Team (Late st Contact Info) Description 09/18/2022 Telephone [facility] [address] [place] [address] [place] [address] [place] [address] Follow Up Social History Tobacco Use Types Packs/Day Years [...] Never 02/20/2022 How often do you attend lutheran or temple serv ices? Patient declined 02/20/2022 Do you belong to any clubs o r organizations such as lutheran groups, unions, fraternal or athletic groups, or [...] Answer Date Recorded PHQ-2 Score 1 02/20/2022 [facility] - Occupational [...] place to sleep or slept in a residential (including now)? No 02/20/2022 Adolescent Education Answer [...] encounter Miscellaneous Notes * Telephone Encounter - Enrico Felton DO - 09/18/2022 9:28 PM CDT Home care note reviewed. * Telephone Encounter - Maura Mendoza - 09/18/2022 12:43 PM CDT FYI - Status Update Who is Calling: Sandra yanez Update: Sandra called to inform PCP that they received a fax for this patient but that the patient has been discharged from their home care. Does caller want a call/response back: No documented in this encounter Plan of Treatment Not on file documented as of this encounter Goals Goal Patient Goal Type Associated Problems Recent Progress Patient-Stated? 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 per 09/01/16 blood bank credit clerk note; left foot tissue 10/08/16 10/11/2018 02/27/2019 Assessment Noted Time PHQ-9 Depression Total Score: 5 02/21/20 2:07 PM ESTATE AGENT documented as of this encounter Care Teams Contact Worker Relationship Specialty [place] [address] [place] [address] PCP - General Family Medicine 06/30/22 Edu Crawford DPM [address] [facility] [address] [place], [place] [address] Podiatry 10/18/16 [place] [address] [place] [address] Assigned PCP 08/29/20 Maddie Mae Personal Advocate & Liaison (PAL) Family Medicine 12/28/21 documented as of this encounter
--- OUTSIDE RECORDS SUMMARY | 2023-04-26 00:01 | XMS_ITS | Encounter Summary ---
Author Name Unknown Organization [facility] Address [address] [place] [address] Care Team Providers Care Salicylic Acid Blender Name Role Phone Edu Crawford DPM Unavailable [phone] Enrico Felton DO Unavailable [phone] Maddie Mae Unavailable Unavailable Enrico Felton DO Primary Care Provider [phone] Encounter Details Date Type Department Care Team (Late st Contact Info) Description 10/06/2022 [facility] [place] Medical Advice [address] [address] Lulu Samano MA Social History Tobacco Use Types Packs/Day Years [...] Never 02/20/2022 How often do you attend zoroastrianism or caodaism serv ices? Patient declined 02/20/2022 Do you belong to any clubs o r organizations such as zoroastrianism groups, unions, fraternal or athletic groups, or [...] Answer Date Recorded PHQ-2 Score 1 02/20/2022 [facility] - [...] place to sleep or slept in a senior living (including now)? No 02/20/2022 Sex and Gender Information Value Date Recorded Sex Assigned at Not on file Gender Identity Not on file Sexual Orientation Not on file COVID-19 Exposure Response Date Recorded In the last 10 days, have yo u been in contact with someone who was confirmed or suspected to have Coronavirus/COVID-19? No / Unsure 09/25/2022 4:15 PM CDT documented as of this encounter Plan of Treatment Not on file documented as of this encounter Goals Goal Patient Goal Type Associated Problems Recent Progress Patient-Stated? Author Financial Wellbeing General Yes Rosey Alexander, ARCHEOLOGIST CLASSICAL documented as of this encounter Visit Diagnoses Not on filedocumented in this encounter Additional Health Concerns Infection Onset Date Last Indicated Resolved Time 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 per 09/01/16 golf ball marker note; left foot tissue 10/08/16 10/11/2018 02/27/2019 Assessment Noted Time PHQ-9 Depression Total Score: 5 02/21/20 22 2:07 PM SLIP COVER ESTIMATOR documented as of this encounter Care Teams Salicylic Acid Blender Relationship Specialty [place] [address] [place] [address] PCP - General Family Medicine 06/30/22 Edu Crawford DPM [address] [facility] [address] [place] [address] Podiatry 10/18/16 [place] [address] [place] [address] Assigned PCP 08/29/20 Maddie Mae Personal Advocate & Liaison (PAL) Family Medicine 12/28/21 documented as of this encounter
--- OUTSIDE RECORDS SUMMARY | 2023-04-26 00:01 | XMS_ITS | Encounter Summary ---
Author Name Unknown Organization [facility] Address [address] [place] [address] Care Team Providers Care Camp Guard Name Role Phone Edu Crawford DPM Unavailable [phone] Enrico Felton DO Unavailable [phone] Maddie Mae Unavailable Unavailable Enrico Felton DO Primary Care Provider [phone] Encounter Details Date Type Department Care Team (Latest Contact Info) Description 10/17/2022 Travel Social History Tobacco Use Types Packs/Day Years [...] Never 02/20/2022 How often do you attend sikh or jehovah's witness serv ices? Patient declined 02/20/2022 Do you belong to any clubs o r organizations such as sikh groups, unions, fraternal or athletic groups, or [...] Answer Date Recorded PHQ-2 Score 1 02/20/2022 [facility] - Occupational Stress [...] place to sleep or slept in a halfway (including now)? No 02/20/2022 Sex and Gender Information Value Date Recorded Sex Assigned at Not on file Gender Identity Not on file Sexual Orientation Not on file COVID-19 Exposure Response Date Recorded In the last 10 days, have yo u been in contact with someone who was confirmed or suspected to have Coronavirus/COVID-19? No / Unsure 10/17/2022 4:43 PM CDT documented as of this encounter Plan of Treatment Not on file documented as of this encounter Goals Goal Patient Goal Type Associated Problems Recent Progress Patient-Stated? Author Financial Wellbeing General Yes Rosey Alexander, ACOUSTICS TEACHER documented as of this encounter Visit Diagnoses Not on filedocumented in this encounter Additional Health Concerns Infection Onset Date Last Indicated Resolved Time 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 per 09/01/16 steam conditioner operator note; left foot tissue 10/08/16 10/11/2018 02/27/2019 Assessment Noted Time PHQ-9 Depression Total Score: 5 02/21/20 22 2:07 PM PRINCIPAL EMBEDDED SOFTWARE ENGINEER documented as of this encounter Care Teams Camp Guard Relationship Specialty [place] [address] [place] [address] PCP - General Family Medicine 06/30/22 [place] [address] [facility] [address] [place] [address] Podiatry 10/18/16 [place] [address] [place] [address] Assigned PCP 08/29/20 Maddie Mae Personal Advocate & Liaison (PAL) Family Medicine 12/28/21 documented as of this encounter
--- OUTSIDE RECORDS SUMMARY | 2023-04-26 00:01 | XMS_ITS | Encounter Summary ---
Author Name Unknown Organization [facility] Address [address] [place] [address] Care Team Providers Care Glass Ribbon Machine Operator Name Role Phone Edu Crawford DPM Unavailable [phone] Enrico Felton DO Unavailable [phone] Maddie Mae Unavailable Unavailable Enrico Felton DO Primary Care Provider [phone] Encounter Details Date Type Department Care Team (Latest Contact Info) Description 09/25/2022 Travel Social History Tobacco Use Types Packs/Day [...] Never 02/20/2022 How often do you attend yazdanism or druze serv ices? Patient declined 02/20/2022 Do you belong to any clubs o r organizations such as yazdanism groups, unions, fraternal or athletic groups, or [...] Answer Date Recorded PHQ-2 Score 1 02/20/2022 [facility] Health - Occupational [...] Author Financial Wellbeing General Yes Rosey Alexander, BED AND BREAKFAST INNKEEPER documented as of this encounter Visit Diagnoses Not on filedocumented in this encounter Additional Health Concerns Infection Onset Date Last Indicated Resolved Time 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 per 09/01/16 chalk machine operator note; left foot tissue 10/08/16 10/11/2018 02/27/2019 Assessment Noted Time PHQ-9 Depression Total Score: 5 02/21/20 22 2:07 PM OUTSIDE B2B SALES documented as of this encounter Care Teams Glass Ribbon Machine Operator Relationship Specialty [place] [address] [place] [address] PCP - General Family Medicine 06/30/22 Edu Crawford DPM [address] [facility] [address] [place] [address] Podiatry 10/18/16 [place] [address] [place] [address] Assigned PCP 08/29/20 Maddie Mae Personal Advocate & Liaison (PAL) Family Medicine 12/28/21 documented as of this encounter
--- OUTSIDE RECORDS SUMMARY | 2023-04-26 00:01 | XMS_ITS | Encounter Summary ---
Author Name Unknown Organization [facility] Address [address] [place] [address] Care Team Providers Care Ship Mate Name Role Phone Edu Crawford DPM Unavailable [phone] Enrico Felton DO Unavailable [phone] Maddie Mae Unavailable Unavailable Enrico Felton DO Primary Care Provider [phone] Encounter Details Date Type Department Care Team (Latest Contact Info) Description 11/13/2022 Travel Social History Tobacco Use Types Packs/Day [...] Never 02/20/2022 How often do you attend yarsani or advent serv ices? Patient declined 02/20/2022 Do you belong to any clubs o r organizations such as yarsani groups, unions, fraternal or athletic groups, or [...] Answer Date Recorded PHQ-2 Score 1 02/20/2022 [facility] - Occupational [...] place to sleep or slept in a intermediate (including now)? No 02/20/2022 Sex and Gender [...] AM CDT documented as of this encounter Plan of Treatment Not on file documented as of this encounter Goals Goal Patient Goal Type Associated Problems Recent Progress Patient-Stated? 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
--- OUTSIDE RECORDS SUMMARY | 2023-04-26 00:02 | XMS_ITS | Encounter Summary ---
Author Name Unknown Organization [facility] Address [address] [place] [id number] Care Team Providers Care Tempering Oven Operator Name Role Phone Yvette Edu DPBharath Unavailable [phone] Enrico Felton DO Unavailable [phone] Maddie Mae Unavailable Unavailable Enrico Felton DO Primary Care Provider [phone] Reason for Visit * Reason Comments Generalized Weakness Fall * Auth/Cert (Routine) Specialty Diagnoses / Procedures Referred By Contac t Referred To Contact Intensive Care Diagnoses Acute renal failure, unspecified acute renal failure type (H24) Acute renal failure, unspecified acute renal failure type (H) [facility] [address] [place] [address] Referral ID Status Reason Start Date Expiration Date Visits Re quested Visits Authorized 1 1 Encounter Details Date Type Department Care Team (Late st Contact Info) Description 09/09/2022 7:53 PM CDT - 09/17/2022 6:31 PM CDT Hospital Encounter [facility] [address] [place] [address] Jez Truong MD [facility] [address], [facility] [address] [place] [address] Miguel Angel Rob MD [address] [place] [address] Mild protein-calorie malnutrition (H) (Primary Dx); Acute renal failure, unspecified acute renal failure type (H); Septic shock (H); Hyperkalemia; Urinary tract infection without hematuria, site unspecified; Acute bacterial conjunctivitis of right eye; Health Detention Discharge Disposition: Home-Health Care Svc Social History Tobacco Use Types Packs/Day Years [...] Never 02/20/2022 How often do you attend yarsanism or judaism serv ices? Patient declined 02/20/2022 Do you belong to any clubs o r organizations such as yarsanism groups, unions, fraternal or athletic groups, or [...] Answer Date Recorded PHQ-2 Score 1 02/20/2022 [employer] [facility] - Occupational Stress [...] place to sleep or slept in a nursing home (including now)? No 02/20/2022 Sex and Gender Information Value Date Recorded Sex Assigned at Not on file Gender Identity Not on file Sexual Orientation Not on file COVID-19 Exposure Response Date Recorded In the last 10 days, have yo u been in contact with someone who was confirmed or suspected to have Coronavirus/COVID-19? No / Unsure 09/09/2022 8:17 PM CDT documented as of this encounter Last Filed Vital Signs Vital Sign Reading [...] Mass Index 26.48 09/10/2022 2:00 AM CDT documented in this encounter Discharge Summaries * Sakshi Díaz - 09/17/2022 1:10 PM CDT Care Management Discharge Note Discharge Date: 09/17/2022 Discharge Disposition: Home, Home Care Patient/Family in Agreement with the Plan: yes Additional Information: Discharge orders sent to [facility]. ANA Alfonso, [facility] Engineer Seo Coordinator-Casual [email or web address] * Can Costa MD - 09/17/2022 12:41 PM CDT [facility] Discharge Summary Name: Alyssa Palencia Date of : 1960 Age: [age] year old Date of Discharge: 09/17/2022 Date of Admission: 09/09/2022 Primary Care Provider: Enrico Felton Discharge Physician: Jesus Costa MD Discharging Service: Hospitalist Hospital Course/Discharge Diagnoses: Alyssa Palencia is a pleasant 61 year old woman admitted 09/09/2022 with suspected sepsis due to UTI, acute renal failure with hyperkalemia, and elevated anion gap metabolic acidosis. 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 Alyssa presented to the emergency department for evaluation of weakness; roommate found her on thefloor unable to get up. ??She reported feeling weak for 3 days with decreased oral intake and frequent nausea, vomiting, and abdominal discomfort. Emergency department evaluation: hypotension with blood pressure in the 70s to 80s over 30s to 60s,initially; oxygen saturations were 74% but improved quickly with addition of supplemental oxygen. ?? Laboratory evaluation showed BUN 224.4, creatinine 12.98, potassium 6.3, bicarb 15, sodium 139, chloride 84, anion gap 40, CK3 63, ketones 2.5, lactic acid 1.7, TSH 1.64, abnormal venous blood gas (pH 7.19, PCO2 41, P O2 42, and bicarb 16), white blood cell 16.4, hemoglobin 16.4, platelets 98, abnormal urine analysis (greater than 182 white blood cells, large leukocyte esterase, many bacteria, and white blood cell clumps), and urine toxicology screen positive for amphetamines. She was given 1 g of Rocephin, IV vancomycin, 3 L of IV fluid. ??Blood pressure improved. ??Repeat labs showed improvement of potassium and renal function. Renal function improved slowly. Urine culture grew E. Coli. Her renal function and toxic metabolic encephalopathy gradually improved. She completed a course oflevofloxacin. PT and OT consulted and recommended TCU on discharge but patient has refused. ??Hospital course complicated by fall in bathroom without injury on 09/15/2022. ?? Over the past couple of days her mobility has improved somewhat but I did revisit disposition options with Alyssa including TCU versus home services and she is adamantly refusing both and demanding discharge immediately. Certainly she does appear to be competent to make this decision and I discussed my concerns regarding fall risk at home and she assures me that she will have roommates around and has all the adaptive equipment that she needs. He has been frequently refusing any cares over the past couple of days. ?? Severe Sepsis, due to urinary tract infection with E. coli History of MRSA infection - Levaquin stopped 09/15; - has had 7 days of antibiotics which should be adequate for UTI without bacteremia. - IV vancomycin stopped earlier (urine cultures grew E. coli) - CT of abdomen and pelvis without contrast: no renal stone or hydronephrosis ?? Acute renal failure, severe, resolved. Hyperkalemia, severe, resolved. High anion gap metabolic acidosis (HAGMA), resolved Starvation ketosis Iatrogenic hypernatremia, due to IV fluid - suspect acute renal failure was due to severe volume depletion from decreased oral intake and vomiting. - doubt rhabdomyolysis with CK of only 363 - metabolic acidosis improved with IV fluid - suspect HAGMA was due to ketosis and renal failure. - resumed PATIENT RESOURCE SPECIALIST lisinopril ?? Hypoxia, improved Hypotension, improved with IV fluids - attributed to sepsis. ? Right eye conjunctivitis;improving - continue eyedrops begun 09/15 ?? Infectious and metabolic encephalopathy: Appears to be resolved. Possible mild underlying cognitive impairment - OT attempted to eval. re. cognitive function: Alyssa refusing cog assessment and functional cogtasks. -She declines home services or TCU placement. Currently is her own decision maker and is demanding discharge home and seems to be competent to make this decision at this point. ?? History of cavernoma with in short cranial hemorrhage in 01/07 - avoid anticoagulation ?? GERD - continue prior to admission proton pump inhibitor ?? Hypertension Hypercholesterolemia - continue PATIENT RESOURCE SPECIALIST amlodipine - continue PATIENT RESOURCE SPECIALIST isinopril - continue PATIENT RESOURCE SPECIALIST Crestor ?? Type 2 diabetes; sugars stable - not on DM med PATIENT RESOURCE SPECIALIST. ?? Seizure disorder - continue PATIENT RESOURCE SPECIALIST Keppra ?? Chronic pain syndrome managed with opiate?? History of substance abuse Amphetamines on urine toxicology screen - continue PATIENT RESOURCE SPECIALIST Suboxone. - continue PATIENT RESOURCE SPECIALIST Lyrica at a lower dose due to ARF ?? History of left BKA after infection after Achilles tendon repair History of right toe amputations Weakness Physical deconditioning Fall without injury on 09/15/2022 - PT and OT are recommending TCU on discharge but patient is refusing adamantly and even declines home services. - Patient had a fall in bathroom witnessed by staff 09/15, apparent injuries. -Ambulating independently with a walker the morning of discharge, 09/17. Discharge Disposition: Discharged to home Allergies: Allergies Allergen Reactions ??? Acetaminophen Other reaction(s): Gastric Reflux ??? Buspirone Unknown dizzy ??? Celecoxib Body gets stiff ??? Gabapentin Body stiffness ??? Ibuprofen Unknown Stomach upset. She reported that she will take if needs something. ??? Naproxen Body stiffness Upsets stomach ??? Nsaids Other (See Comments) bruises ??? Prednisone Other (See Comments) Sores in her mouth and doesn't like what it does to her ??? Sertraline Cramping, flatulence ??? Atorvastatin Rash Discharge Medications: Review of your medicines START taking Dose / Directions folic acid 1 MG tablet Commonly known as: FOLVITE Used for: Mild protein-calorie malnutrition (H) Dose: 1 mg Start taking on: September 18, 2022 Take 1 tablet (1 mg) by mouth daily Quantity: 30 tablet Refills: 0 thiamine 100 MG tablet Commonly known as: B-1 Used for: Mild protein-calorie malnutrition (H) Dose: 100 mg Start taking on: September 18, 2022 Take 1 tablet (100 mg) by mouth daily Quantity: 30 tablet Refills: 0 CONTINUE these medicines which have NOT CHANGED Dose / Directions amLODIPine 5 MG tablet Commonly known as: NORVASC Used for: Essential hypertension Dose: 5 mg Take 1 tablet (5 mg) by mouth daily Quantity: 90 tablet Refills: 4 buprenorphine HCl-naloxone HCl 8-2 MG per film Commonly known as: SUBOXONE Dose: [address] 1 Film under the tongue daily Refills: 0 Keppra 1000 MG tablet Generic drug: levETIRAcetam Dose: 1,000 mg Take 1,000 mg by mouth 2 times daily Refills: 0 lisinopril 20 MG tablet Commonly known as: ZESTRIL Used for: Essential hypertension Dose: 20 mg Take 1 tablet (20 mg) by mouth daily Quantity: 90 tablet Refills: 4 pantoprazole 40 MG EC tablet Commonly known as: PROTONIX Used for: Gastroesophageal reflux disease, unspecified whether esophagitis present Dose: 40 mg Take 1 tablet (40 mg) by mouth daily Quantity: 90 tablet Refills: 4 PARoxetine 30 MG tablet Commonly known as: PAXIL Used for: Health Detention, Anxiety and depression Dose: 60 mg Take 2 tablets (60 mg) by mouth daily Quantity: 180 tablet Refills: 4 pregabalin 150 MG capsule Commonly known as: LYRICA Used for: Spasticity Dose: 150 mg Take 1 capsule (150 mg) by mouth 2 times daily for 30 days Quantity: 60 capsule Refills: 0 rosuvastatin 5 MG tablet Commonly known as: CRESTOR Used for: Hyperlipidemia with target LDL less than 100 Dose: 5 mg Take 1 tablet (5 mg) by mouth daily Quantity: 90 tablet Refills: 3 STOP taking Baclofen 5 MG tablet Commonly known as: LIORESAL Where to get your medicines These medications [place] - [address] [facility] [address] [facility] [place] [address] ?? folic acid 1 MG tablet ?? thiamine 100 MG tablet Condition on Discharge: Discharge condition: Stable Code status on discharge: Full Code History of Illness: See detailed admission note for full details. Physical Exam: Vital signs: Temp: 97.1 ??F (36.2 ??C) Temp src: Temporal BP: (!) 146/89 Pulse: 69 Resp: 16 SpO2: 97 % O2 Device: None (Room air) Oxygen Delivery: 2 LPM Height: 172.2 cm (5' 7.8) Weight: 78.5 kg (173 lb 1.6 oz) Estimated body mass index is 26.48 kg/m?? as calculated from the following: Height as of this encounter: 1.722 m (5' 7.8). Weight as of this encounter: 78.5 kg (173 lb 1.6 oz). Wt Readings from Last 1 Encounters: 09/16/22 78.5 kg (173 lb 1.6 oz) General: Alert, awake, no acute distress. HEENT: NC/AT, eyes anicteric, external occular movements intact, face symmetric. Cardiac: RRR, S1, S2. No murmurs appreciated. Pulmonary: Normal chest rise, normal work of breathing. Lungs CTA BL Abdomen: soft, non-tender, non-distended. Bowel Sounds Present. No guarding. Extremities: Left BKA with prosthetic in place. Warm, well perfused. Skin: no rashes or lesions noted. Warm and Dry. Neuro: No focal deficits noted. Speech clear. Coordination and strength grossly normal. Psych: Appropriate affect. Procedures other than Imaging: none Imaging: Results for orders placed or performed during the hospital encounter of 09/09/22 XR Chest Port 1 View Narrative EXAM: XR CHEST PORT 1 VIEW LOCATION: [facility] DATE: 09/09/2022 INDICATION: sob COMPARISON: None. Impression IMPRESSION: No acute cardiopulmonary findings seen to explain patient's shortness of breath clinically. Prior postoperative changes upper spine. Moderate hypertrophic changes most marked in the thoracic spine. CT Head w/o Contrast Narrative EXAM: CT HEAD W/O CONTRAST, CT CERVICAL SPINE W/O CONTRAST LOCATION: [facility] DATE: 09/09/2022 INDICATION: Generalized weakness COMPARISON: 09/18/2021 TECHNIQUE: 1) Routine CT Head without IV contrast. Multiplanar reformats. Dose reduction techniques were used. 2) Routine CT Cervical Spine without IV contrast. Multiplanar reformats. Dose reduction techniques were used. FINDINGS: HEAD CT: INTRACRANIAL CONTENTS: Lobulated 24 x 16 x 16 mm (AP by TR by CC) hyperdense focus along the posterior right cingulate gyrus. This is consistent with the patient's history of cavernoma. This overall appears less conspicuous than on 10/05/2021, where there was superimposed hemorrhage. Small volume interval hemorrhage is possible. No intraventricular hemorrhage. Minimal localized edema or gliosis. No CT evidence of acute infarct. Mild presumed chronic small vessel ischemic changes. Mild generalized volume loss. No hydrocephalus. VISUALIZED ORBITS/SINUSES/MASTOIDS: No intraorbital abnormality. No paranasal sinus mucosal disease. No middle ear or mastoid effusion. BONES/SOFT TISSUES: No acute abnormality. CERVICAL SPINE CT: VERTEBRA: Solid fusion from C4 through C7. Mild grade 1 degenerative anterolisthesis of C3 and C7. No fracture or posttraumatic subluxation. CANAL/FORAMINA: No high-grade central canal stenosis. Relatively severe bilateral neural foraminal narrowing at C3-C4. PARASPINAL: No extraspinal abnormality. Visualized lung amor are clear. Impression IMPRESSION: HEAD CT: 1. Lobulated 24 x 16 x 16 mm (AP x TR x CC) hyperdense focus along the posterior right cingulate gyrus. This is consistent with the patient's history of cavernoma. This overall appears less conspicuous than on 09/18/2021, where there was superimposed hemorrhage. 2. Otherwise unremarkable. CERVICAL SPINE CT: 1. No CT evidence for acute fracture or post traumatic subluxation. 2. Solid fusion from C4 through C7. 3. Relatively severe bilateral neural foraminal narrowing at C3-C4. Exam discussed with Dr. Truong at 12:[address] Cervical Spine w/o Contrast Narrative EXAM: CT HEAD W/O CONTRAST, CT CERVICAL SPINE W/O CONTRAST LOCATION: [facility] DATE: 09/09/2022 INDICATION: Generalized weakness COMPARISON: 09/18/2021 TECHNIQUE: 1) Routine CT Head without IV contrast. Multiplanar reformats. Dose reduction techniques were used. 2) Routine CT Cervical Spine without IV contrast. Multiplanar reformats. Dose reduction techniques were used. FINDINGS: HEAD CT: INTRACRANIAL CONTENTS: Lobulated 24 x 16 x 16 mm (AP by TR by CC) hyperdense focus along the posterior right cingulate gyrus. This is consistent with the patient's history of cavernoma. This overall appears less conspicuous than on 10/05/2021, where there was superimposed hemorrhage. Small volume interval hemorrhage is possible. No intraventricular hemorrhage. Minimal localized edema or gliosis. No CT evidence of acute infarct. Mild presumed chronic small vessel ischemic changes. Mild generalized volume loss. No hydrocephalus. VISUALIZED ORBITS/SINUSES/MASTOIDS: No intraorbital abnormality. No paranasal sinus mucosal disease. No middle ear or mastoid effusion. BONES/SOFT TISSUES: No acute abnormality. CERVICAL SPINE CT: VERTEBRA: Solid fusion from C4 through C7. Mild grade 1 degenerative anterolisthesis of C3 and C7. No fracture or posttraumatic subluxation. CANAL/FORAMINA: No high-grade central canal stenosis. Relatively severe bilateral neural foraminal narrowing at C3-C4. PARASPINAL: No extraspinal abnormality. Visualized lung amor are clear. Impression IMPRESSION: HEAD CT: 1. Lobulated 24 x 16 x 16 mm (AP x TR x CC) hyperdense focus along the posterior right cingulate gyrus. This is consistent with the patient's history of cavernoma. This overall appears less conspicuous than on 09/18/2021, where there was superimposed hemorrhage. 2. Otherwise unremarkable. CERVICAL SPINE CT: 1. No CT evidence for acute fracture or post traumatic subluxation. 2. Solid fusion from C4 through C7. 3. Relatively severe bilateral neural foraminal narrowing at C3-C4. Exam discussed with Dr. Truong at 12:[address] Abdomen Pelvis w/o Contrast Narrative EXAM: CT ABDOMEN PELVIS W/O CONTRAST LOCATION: [facility] DATE: 09/10/2022 INDICATION: Hydronephrosis. Evaluate for obstructive urinary tract stones. COMPARISON: None. TECHNIQUE: CT scan of the abdomen and pelvis was performed without IV contrast. Multiplanar reformats were obtained. Dose reduction techniques were used. CONTRAST: None. FINDINGS: LOWER CHEST: Dependent platelike atelectasis in the lower lobes. No pleural effusion on either side. Normal cardiac size. No pericardial effusion. HEPATOBILIARY: The gallbladder is distended. No stones, biliary dilatation or adjacent inflammation. No discrete hepatic lesion. PANCREAS: Normal. SPLEEN: Normal. ADRENAL GLANDS: Normal. KIDNEYS/BLADDER: No urinary tract calculi. Both kidneys are negative for hydronephrosis or hydroureter. Normal urinary bladder. BOWEL: Distal colonic diverticulosis, without acute inflammation. Formed stool material within normal caliber colon. No mechanical obstruction, free gas or free fluid. LYMPH NODES: No suspicious abdominopelvic adenopathy. VASCULATURE: Mildly atherosclerotic normal caliber abdominal aorta measuring 1.8 x 1.8 cm (image 84, series 3). Normal caliber IVC. PELVIC ORGANS: Vascular calcifications. Distal colonic mild diverticulosis without acute inflammation. No adenopathy or free fluid. Anteverted uterus, with a small exophytic fibroid at the fundus on the left. MUSCULOSKELETAL: Postoperative changes of L3-L5 instrumented fusion anteriorly and posteriorly. Degenerative spine and joints of the pelvis. Impression IMPRESSION: 1. No urinary tract calculi or obstruction. Normal urinary bladder. Anteverted uterus with an exophytic fundal fibroid on the left. 2. The gallbladder is distended. No calcified gallstones, biliary dilatation or adjacent inflammation. No discrete hepatic lesion. 3. Distal colonic mild diverticulosis. No acute inflammatory changes, mechanical obstruction or free gas. 4. Postoperative changes of L3-L5 instrumented effusion anteriorly and posteriorly. Degenerative spine and joints of the pelvis. US Abdomen Limited Narrative US ABDOMEN LIMITED 09/11/2022 8:12 AM CLINICAL HISTORY: Sepsis, distended gallbladder. TECHNIQUE: Limited abdominal ultrasound. COMPARISON: Ultrasound from April 03, 2017, CT scan from September 10, 2022. FINDINGS: GALLBLADDER: Gallbladder is elongated but not abnormal by short axis criteria. Some sludge is present, no shadowing stones. No pathologic wall thickening demonstrated. BILE DUCTS: Previously seen polyp not seen today. The common duct measures 6 mm. LIVER: Unremarkable where seen. RIGHT KIDNEY: No hydronephrosis. PANCREAS: The visualized portions of the pancreas are normal. No ascites. Impression IMPRESSION: The size of the gallbladder is similar to the 2018 comparison study and this is likely chronic. KATARZYNA LOGAN MD Consultations: Consultation during this admission received from nephrology. Recent Lab Results: Recent Labs Lab 09/17/22 0829 09/16/22 0750 09/15/22 0851 WBC 8.1 7.8 8.0 HGB 12.7 12.5 12.5 HCT 40.9 39.4 39.6 MCV 104* 102* 103* PLT 139* 104* 83* Lab Results Component Value Date NA 148 09/17/2022 NA 146 09/16/2022 NA 146 09/15/2022 NA 140 02/17/2019 NA 143 10/11/2018 NA 140 10/10/2018 Lab Results Component Value Date CHLORIDE 112 09/17/2022 CHLORIDE 110 09/16/2022 CHLORIDE 108 09/15/2022 CHLORIDE 108 10/03/2021 CHLORIDE 109 09/28/2021 CHLORIDE 106 09/22/2021 CHLORIDE 105 02/17/2019 CHLORIDE 112 10/11/2018 CHLORIDE 106 10/10/2018 Lab Results Component Value Date BUN 13.4 09/17/2022 BUN 14.1 09/16/2022 BUN 21.4 09/15/2022 BUN 17 10/03/2021 BUN 18 09/28/2021 BUN 26 09/22/2021 BUN 25 02/17/2019 BUN 19 10/11/2018 BUN 17 10/10/2018 Lab Results Component Value Date POTASSIUM 4.3 09/17/2022 POTASSIUM 4.4 09/16/2022 POTASSIUM 4.5 09/15/2022 POTASSIUM 4.0 10/03/2021 POTASSIUM 4.5 09/28/2021 POTASSIUM 6.3 09/28/2021 POTASSIUM 4.2 02/17/2019 POTASSIUM 4.1 10/11/2018 POTASSIUM 3.8 10/10/2018 Lab Results Component Value Date CO2 25 09/17/2022 CO2 25 09/16/2022 CO2 31 09/15/2022 CO2 28 10/03/2021 CO2 26 09/28/2021 CO2 29 09/22/2021 CO2 27 02/17/2019 CO2 28 10/11/2018 CO2 27 10/10/2018 Lab Results Component Value Date CR 0.98 09/17/2022 CR 0.97 09/16/2022 CR 1.04 09/15/2022 CR 0.94 02/17/2019 CR 0.82 10/12/2018 CR 0.96 10/11/2018 Pending Results: Unresulted Labs Ordered in the Past 30 Days of this Admission Date and Time Order Name Status Description 09/09/2022 10:10 PM Ethylene Glycol In process 09/09/2022 10:10 PM Volatiles Screen In process Discharge Instructions and Follow-Up: Discharge Procedure Orders Reason for your hospital stay Order Comments: You were admitted for a UTI and confusion Follow-up and recommended labs and tests Order Comments: Follow up with primary care provider, Enrico Felton, within 7-14 days for hospital follow- up. Activity Order Comments: Your activity upon discharge: activity as tolerated using assistive devices and help from your roomates. Order Specific Question Answer Comments Is discharge order? Yes Diet Order Comments: Follow this diet upon discharge: Orders Placed This Encounter Advance Diet as Tolerated: Regular Diet Adult; Regular Diet Adult Order Specific Question Answer Comments Is discharge order? Yes Total time spent in face to face contact with the patient and coordinating discharge was: 60 Minutes. documented in this encounter Medications at Time of Discharge Medication Sig Dispensed Refills Start Date End Date amLODIPine (NORVASC) 5 MG tabletIndications:Essenti al hypertension Take 1 tablet (5 mg) by mouth daily 90 tablet 4 02/20/2022 buprenorphine HCl-naloxone HCl (SUBOXONE) 8-[address] 1 Film under the tongue daily 0 folic acid (FOLVITE) 1 MG tabletIndications:Mild protein-calorie malnutrition (H24) Take 1 tablet (1 mg) by mouth daily 30 tablet 0 09/18/2022 levETIRAcetam (KEPPRA) 1000 MG tablet Take 1,000 mg by mouth 2 times daily 0 lisinopril (ZESTRIL) 20 MG tabletIndications:Essenti al hypertension Take 1 tablet (20 mg) by mouth daily 90 tablet 4 02/20/2022 pantoprazole (PROTONIX) 40 MG EC tabletIndications:Gastroe sophageal reflux disease, unspecified whether esophagitis present Take 1 tablet (40 mg) by mouth daily 90 tablet 4 02/20/2022 PARoxetine (PAXIL) 30 MG tabletIndications:Health Detention,Anxiety and depression Take 2 tablets (60 mg) by mouth daily 180 tablet 4 02/20/2022 rosuvastatin (CRESTOR) 5 MG tabletIndications:Hyperli pidemia with target LDL less than 100 Take 1 tablet (5 mg) by mouth daily 90 tablet 3 03/20/2022 thiamine (B-1) 100 MG tabletIndications:Mild protein-calorie malnutrition (H24) Take 1 tablet (100 mg) by mouth daily 30 tablet 0 09/18/2022 ciprofloxacin (CILOXAN) 0.3 % ophthalmic solutionIndications:Acute bacterial conjunctivitis of right eye Place 1 drop into the right eye 4 times daily for 4 days 0.8 mL 0 09/17/2022 09/21/2022 documented as of this encounter Progress Notes * Cindy Doherty, PT - 09/17/2022 6:31 PM CDT Physical Therapy Discharge Summary Reason for therapy discharge: Discharged to home with home therapy. Progress towards therapy goal(s). See goals on Care Plan in [facility] electronic health record for goal details. Goals not met. Barriers to achieving goals: discharge from facility. Therapy recommendation(s): Continued therapy is recommended. Rationale/Recommendations: TCU was recommended for gait, strength, and balance; pt refused recommendation.. * Bird Crawford MD - 09/16/2022 2:21 PM CDT [facility] Hospitalist Progress Note Date of Service (when I saw the patient): 09/16/2022 Assessment & Plan Alyssa Palencia is a pleasant 61 year old woman admitted 09/09/2022 with suspected sepsis due to UTI, acute renal failure with hyperkalemia, and elevated anion gap metabolic acidosis. 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 Presented to the emergency department for evaluation of weakness; roommate found her on the floor unable to get up. ??She reported feeling weak for 3 days with decreased oral intake and frequent nausea, vomiting, and abdominal discomfort. Emergency department evaluation: hypotension with blood pressure in the 70s to 80s over 30s to 60s,initially; oxygen saturations were 74% but improved quickly with addition of supplemental oxygen. ?? Laboratory evaluation showed BUN 224.4, creatinine 12.98, potassium 6.3, bicarb 15, sodium 139, chloride 84, anion gap 40, CK3 63, ketones 2.5, lactic acid 1.7, TSH 1.64, abnormal venous blood gas (pH 7.19, PCO2 41, P O2 42, and bicarb 16), white blood cell 16.4, hemoglobin 16.4, platelets 98, abnormal urine analysis (greater than 182 white blood cells, large leukocyte esterase, many bacteria, and white blood cell clumps), and urine toxicology screen positive for amphetamines. - was given 1 g of Rocephin, IV vancomycin, 3 L of IV fluid. ??Blood pressure improved. ??Repeat labs showed improvement of potassium and renal function. Renal function improved slowly. Urine culturegrew E. Coli. - PT and OT consulted and recommended TCU on discharge but patient has refused. Hospital course complicated by fall in bathroom without injury on 09/15/2022. Current problems include: ?? Sepsis, due to urinary tract infection with E. coli History of MRSA infection - Levaquin stopped 09/15; - has had 7 days of antibiotics which should be adequate for UTI without bacteremia. - IV vancomycin stopped earlier (urine cultures grew E. coli) - CT of abdomen and pelvis without contrast: no renal stone or hydronephrosis ?? Acute renal failure, severe, improved Hyperkalemia, severe, improved High anion gap metabolic acidosis (HAGMA), resolved Starvation ketosis Iatrogenic hypernatremia, due to IV fluid - suspect acute renal failure was due to severe volume depletion from decreased oral intake and vomiting. - doubt rhabdomyolysis with CK of only 363 - metabolic acidosis improved with IV fluid (D5 0.45% NS + 75 Meq/l of NaHCO3). - suspect HAGMA was due to ketosis and renal failure. - resumed PATIENT RESOURCE SPECIALIST lisinopril ?? Hypoxia, improved Hypotension, improved with IV fluids - attributed to sepsis. ? Right eye conjunctivitis; possibly improving - continue Polytrim eyedrops begun 09/15 ?? Infectious and metabolic encephalopathy Possible underlying cognitive impairment - seems to have poor insight regarding her condition, and seems to be making poor decisions regarding discharge planning, even in spite of fall 09/15 - OT attempted to eval. re. cognitive function: Alyssa refusing cog assessment and functional cogtasks. - may benefit from LTC or 09/10 supervision. ?? History of cavernoma with in short cranial hemorrhage in 01/07 - avoid anticoagulation ?? GERD - continue prior to admission proton pump inhibitor ?? Hypertension Hypercholesterolemia - continue PATIENT RESOURCE SPECIALIST amlodipine - continue PATIENT RESOURCE SPECIALIST isinopril - continue PATIENT RESOURCE SPECIALIST Crestor ?? Type 2 diabetes; sugars stable - not on DM med PATIENT RESOURCE SPECIALIST. - continue Novolog sliding scale insulin ?? Seizure disorder - continue PATIENT RESOURCE SPECIALIST Keppra ?? Chronic pain syndrome managed with opiate?? History of substance abuse Amphetamines on urine toxicology screen - continue PATIENT RESOURCE SPECIALIST Suboxone. - continue PATIENT RESOURCE SPECIALIST Lyrica at a lower dose due to ARF ?? History of left BKA after infection after Achilles tendon repair History of right toe amputations Weakness Physical deconditioning Fall without injury on 09/15/2022 - PT and OT are recommending TCU on discharge but patient is refusing. - anticipate discharge to home in a few days with home PT and OT - Patient had a fall in bathroom witnessed by staff 09/15. ? Diet: advance Diet as Tolerated: Regular Diet Adult; Regular Diet Adult DVT Prophylaxis: Pneumatic Compression Devices Arambula Catheter: Not present Lines: None Cardiac Monitoring: None Code Status: Full Code ? Disposition Plan: TBD Disposition: Expected discharge in 2-3 days. Elizabeth Crawford MD, [facility] Text [facility] (7am - 6pm) Interval History Reviewed w/ RN. Alyssa is still refusing placement of IV; Right eye feeling somewhat better. Not eating much; no BM for at least several days. Data reviewed today: I reviewed all new labs and imaging results over the last 24 hours. Physical Exam Temp: 98.2 ??F (36.8 ??C) Temp src: Temporal BP: (!) 154/94 Pulse: 91 Resp: 16 SpO2: 97 % O2 Device: None (Room air) Vitals: 09/12/22 0645 09/13/22 0557 09/16/22 0521 Weight: 80.1 kg (176 lb 10.5 oz) 82.4 kg (181 lb 10.5 oz) 78.5 kg (173 lb 1.6 oz) Vital Signs with Ranges Temp: [96.9 ??F (36.1 ??C)-98.9 ??F (37.2 ??C)] 98.2 ??F (36.8 ??C) Pulse: [69-91] 91 Resp: [16-20] 16 BP: (127-154)/(69-94) 154/94 SpO2: [95 %-97 %] 97 % No intake/output data recorded. Constitutional: awake, no apparent distress; lying in bed HEENT: sclerae clear; MM's moist Respiratory: good a/e bilaterally, no wheezing or rhonchi Cardiovascular: Regular rate and rhythm, S1, S2 noted; no m/r/g GI: abdomen flat, + bowel sounds; soft, non-tender, non-distended Skin/Integumen: no rashes, no cyanosis, no jaundice Musculoskeletal: no edema Neurologic: follows directions well; no focal deficits Medications ??? buprenorphine HCl-naloxone HCl 1 Film Sublingual Daily ??? ciprofloxacin 1 drop Right Eye 4x Daily ??? levETIRAcetam 1,000 mg Oral BID ??? lisinopril 20 mg Oral Daily ??? magnesium oxide 400 mg Oral BID ??? miconazole Topical BID ??? pantoprazole 40 mg Oral Daily ??? PARoxetine 60 mg Oral Daily ??? pregabalin 25 mg Oral Daily ??? rosuvastatin 5 mg Oral Daily Data Recent Labs Lab 09/16/22 0750 09/15/22 1235 09/15/22 0851 09/14/22 0735 09/14/22 0631 09/11/22 0810 09/11/22 0730 09/09/22 2226 09/09/22 2046 WBC 7.8 -- 8.0 -- 8.6 9.1 -- 9.0 < > 16.4* HGB 12.5 -- 12.5 -- 11.9 11.7 -- 11.6* < > 16.4* MCV 102* -- 103* -- 102* 103* -- 97 < > 97 PLT 104* -- 83* -- 66* 63* -- 60* < > 98* INR -- -- -- -- -- -- -- -- 1.03 NA 146* -- 146* -- 144 < > 146* < > 139 POTASSIUM 4.4 -- 4.5 -- 4.1 < > 3.8 < > 6.3* CHLORIDE 110* -- 108* -- 106 < > 107 < > 84* CO2 25 -- 31* -- 28 < > 24 < > 15* BUN 14.1 -- 21.4 -- 33.6* < > 134.6* < > 224.4* CR 0.97* -- 1.04* -- 0.93 < > 3.57* < > 12.98* ANIONGAP 11 -- 7 -- 10 < > 15 < > 40* DANA 8.5* -- 8.4* -- 7.9* < > 6.9* < > 8.8 GLC 110* 99 121* < > 110* < > 147* < > 137* ALBUMIN -- -- -- -- -- -- 2.8* -- 4.5 PROTTOTAL -- -- -- -- -- -- 5.7* -- 8.8* BILITOTAL -- -- -- -- -- -- 0.2 -- 0.7 ALKPHOS -- -- -- -- -- -- 58 -- 88 ALT -- -- -- -- -- -- 9 -- 12 AST -- -- -- -- -- -- 13 -- 19 < > = values in this interval not displayed. * Miguel Angel Rob MD - 09/15/2022 2:41 PM CDT [facility] Medicine Progress Note - Hospitalist Service Date of Admission: 09/09/2022 Assessment & Plan Alyssa Palencia is a 61 year old female admitted on 09/09/2022 with suspected sepsis due to UTI, acute renal failure with hyperkalemia, and elevated anion gap metabolic acidosis. 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 She presented to the emergency department for evaluation of weakness. Her roommate found her on the floor unable to get up. She had been down for 6 hours. She reported feeling weak for 3 days with decreased oral intake and frequent nausea, vomiting, and abdominal discomfort. She had some chills. She denied cough, chest pain, fevers, diarrhea, and dysuria. She denied ingestion of atypical alcohol such as methanol or ethylene glycol. Emergency department evaluation showed hypotension with blood pressure in the 70s to 80s over 30s to 60s, initially. Initial oxygen saturations were 74% but these improved quickly with addition of supplemental oxygen. Laboratory evaluation showed BUN 224.4, creatinine 12.98, potassium 6.3, bicarb 15, sodium 139, chloride 84, anion gap 40, CK3 63, ketones 2.5, lactic acid 1.7, TSH 1.64, abnormal venous blood gas (pH 7.19, PCO2 41, P O2 42, and bicarb 16), white blood cell 16.4, hemoglobin 16.4, platelets 98, abnormal urine analysis (greater than 182 white blood cells, large leukocyte esterase, many bacteria, and white blood cell clumps), and urine toxicologyscreen positive for amphetamines. She was given 1 g of Rocephin, IV vancomycin, 3 L of IV fluid. Blo od pressure improved. She was given hyperkalemia protocol. Repeat labs showed improvement of potassium and renal function. She was admitted to the ICU for further cares. Renal function improved slowly. Urine culture grew E. Coli. She slowly improved. PT and OT consulted and recommended TCU on discharge but patient refused. Hospital course was complicated by fall in bathroom without injury on 09/15/2022. She continued to refuse transitional care placement. ?? Problem list: ?? Sepsis, due to urinary tract infection with E. coli History of MRSA infection -Stop Levaquin today. Patient has had 7 days of antibiotics which should be adequate for UTI without bacteremia. -IV vancomycin stopped with urine cultures growing E. coli -CT of abdomen and pelvis without contrast showed no renal stone and hydronephrosis ?? Acute renal failure, severe Hyperkalemia, severe, improved High anion gap metabolic acidosis (HAGMA), resolved Starvation ketosis Iatrogenic hypernatremia, due to IV fluid -I suspect acute renal failure was due to severe volume depletion from decreased oral intake and vomiting. Renal function has nearly normalized. -Doubt rhabdomyolysis with CK of only 363 -Potassium has normalized -Metabolic acidosis is improved with IV fluid (D5 0.45% NS + 75 Meq/l of NaHCO3). -A.m. basic metabolic panel -To complete HAGMA work up- salicylate level was undetectable. Volatile screen and ethylene glycol are still pending but not expected to be positive at this point.. I suspect HAGMA was due to ketosisand renal failure. -Resume PATIENT RESOURCE SPECIALIST lisinopril -Sodium corrected ?? Hypoxia, improved Hypotension, improved with IV fluids -Likely due to sepsis. -Resolved Right eye conjunctivitis -Trial of Polytrim eyedrops started today Infectious and metabolic encephalopathy Concern for some underlying cognitive impairment -Seems to have poor insight regarding her condition. She seems to be making poor decisions regarding discharge planning, even in spite of fall this morning. -We will ask OT to see regarding cognition ?? History of cavernoma with in short cranial hemorrhage in 01/07 -Avoid anticoagulation ?? GERD -Continue prior to admission proton pump inhibitor ?? Hypertension Hypercholesterolemia -Continue PATIENT RESOURCE SPECIALIST amlodipine -Resume PATIENT RESOURCE SPECIALIST isinopril -Continue PATIENT RESOURCE SPECIALIST Crestor Type 2 diabetes -Not on DM med PATIENT RESOURCE SPECIALIST. Continue Novolog sliding scale insulin- can likely stop soon- monitor a bit longer with change to levaquin Seizure disorder -Continue PATIENT RESOURCE SPECIALIST Keppra ?? Chronic pain syndrome managed with opiate?? History of substance abuse Amphetamines on urine toxicology screen -Continue PATIENT RESOURCE SPECIALIST Suboxone. -Continue PATIENT RESOURCE SPECIALIST Lyrica at a lower dose due to ARF ?? History of left BKA after infection after Achilles tendon repair History of right toes amputated Weakness Fall without injury on 09/15/2022 -PT and OT are recommending TCU on discharge but patient is refusing. Anticipate discharge to home in a few days with home PT and OT -Patient had a fall in bathroom witnessed by staff this morning. No obvious injury. She did not hither head. She continues to decline rehab placement. Diet: Advance Diet as Tolerated: Regular Diet Adult; Regular Diet Adult DVT Prophylaxis: Pneumatic Compression Devices Arambula Catheter: Not present Lines: None Cardiac Monitoring: None Code Status: Full Code Clinically Significant Risk Factors # Hypernatremia: Highest Na = 146 mmol/L in last 2 days, will monitor as appropriate # Hypomagnesemia: Lowest Mg = 1.1 mg/dL in last 2 days, will replace as needed # Hypoalbuminemia: Lowest albumin = 2.8 g/dL at 09/11/2022 7:30 AM, will monitor as appropriate # Thrombocytopenia: Lowest platelets = 63 in last 2 days, will monitor for bleeding # Hypertension: Noted on problem list # Overweight: Estimated body mass index is 27.79 kg/m?? as calculated from the following: Height as of this encounter: 1.722 m (5' 7.8). Weight as of this encounter: 82.4 kg (181 lb 10.5 oz). Disposition Plan Expected Discharge Date: 09/18/2022 Destination: home;home with family Miguel Angel Rob MD Hospitalist Service [facility] Securely message with Bolt (more info) Text page via [facility] Paging/Directory Interval History Patient had a witnessed fall in the bathroom this morning. She did not hit her head. She was able to walk back to bed. No obvious injury. Complains of itching and erythema with swelling of right eye. Physical Exam Vital Signs: Temp: (!) 96.7 ??F (35.9 ??C) Temp src: Temporal BP: (!) 152/90 Pulse: 79 Resp: 16 SpO2: 99 % O2 Device: None (Room air) Weight: 181 lbs 10.54 oz GENERAL: Comfortable. Cooperative. PSYCH: pleasant, oriented, No acute distress. EYES: PERRLA, right eye with erythema, subjective itching, and slight drainage HEART: Regular rate and rhythm. No JVD. Pulses normal. No edema. LUNGS: Clear to auscultation, normal Respiratory effort. ABDOMEN: Soft, no hepatosplenomegaly, normal bowel sounds. EXTREMETIES: No clubbing, cyanosis or ischemia SKIN: Dry to touch, No rash. Medical Decision Making 45 MINUTES SPENT BY ME on the date of service doing chart review, history, exam, documentation & further activities per the note. Data I have personally reviewed the following data over the past 24 hrs: 8.0 \ 12.5 / 83 (L) 146 (H) 108 (H) 21.4 / 99 4.5 31 (H) 1.04 (H) \ Imaging results reviewed over the past 24 hrs: No results found for this or any previous visit (from the past 24 hour(s)). Recent Labs Lab 09/15/22 1235 09/15/22 0851 09/15/22 0831 09/14/22 0735 09/14/22 0631 09/13/22 1139 09/13/22 0811 09/11/22 0810 09/11/22 0730 09/09/22 2226 09/09/22 2046 WBC -- 8.0 -- -- 8.6 9.1 -- -- -- 9.0 < > 16.4* HGB -- 12.5 -- -- 11.9 11.7 -- -- -- 11.6* < > 16.4* MCV -- 103* -- -- 102* 103* -- -- -- 97 < > 97 PLT -- 83* -- -- 66* 63* -- -- -- 60* < > 98* INR -- -- -- -- -- -- -- -- -- -- 1.03 NA -- 146* -- -- 144 -- 148* < > 146* < > 139 POTASSIUM -- 4.5 -- -- 4.1 -- 4.0 < > 3.8 < > 6.3* CHLORIDE -- 108* -- -- 106 -- 108* < > 107 < > 84* CO2 -- 31* -- -- 28 -- 31* < > 24 < > 15* BUN -- 21.4 -- -- 33.6* -- 47.9* < > 134.6* < > 224.4* CR -- 1.04* -- -- 0.93 -- 1.07* < > 3.57* < > 12.98* ANIONGAP -- 7 -- -- 10 -- 9 < > 15 < > 40* DANA -- 8.4* -- -- 7.9* -- 7.8* < > 6.9* < > 8.8 GLC 99 121* 92 < > 110* < > 109* < > 147* < > 137* ALBUMIN -- -- -- -- -- -- -- -- 2.8* -- 4.5 PROTTOTAL -- -- -- -- -- -- -- -- 5.7* -- 8.8* BILITOTAL -- -- -- -- -- -- -- -- 0.2 -- 0.7 ALKPHOS -- -- -- -- -- -- -- -- 58 -- 88 ALT -- -- -- -- -- -- -- -- 9 -- 12 AST -- -- -- -- -- -- -- -- 13 -- 19 < > = values in this interval not displayed. * Lucia Sheppard, RN - 09/15/2022 9:50 AM CDT Care Management Follow Up Length of Stay (days): 5 Expected Discharge Date: 09/15/2022 Anticipated Discharge Disposition: Home, Home Care Patient/Family in Agreement with the Plan: yes Additional Information: CM stopped to check in with patient. She seemed tearful in her bed. Asked how she is feeling and wanted to double check if she is having any reconsideration of going to a TCU. She stated no she is going home. Asked her if we should call her daughter to update on anything or talk about the dischargeplan and patient stated, She has not called me at all so there is no need to call her. Will continue to follow for discharge, send discharge orders to home care at time of discharge. Lucia Sheppard RN Seo Coordinator [facility] * Cricket See - 09/15/2022 8:09 AM CDT [facility] Progress Note [facility]Sp[facility] call out operator response to overhead page (Rapid Response). Rapid Response cancelled and SHS not needed. Plan: I and other chaplains remain available for further support. Nano Lott Singer Back Tender Breaker Table Worker [facility] routine referrals *[id number] SHS available 09/10 for emergent requests/referrals, either by paging the on-call director social or by entering an ANITRA/STAT consult in [facility] (this will also page the on-call director social). * Miguel Angel Rob MD - 09/14/2022 10:26 AM CDT [facility] Medicine Progress Note - Hospitalist Service Date of Admission: 09/09/2022 Assessment & Plan Alyssa Palencia is a 61 year old female admitted on 09/09/2022 with suspected sepsis due to UTI, acute renal failure with hyperkalemia, and elevated anion gap metabolic acidosis. 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 She presented to the emergency department for evaluation of weakness. Her roommate found her on the floor unable to get up. She had been down for 6 hours. She reported feeling weak for 3 days with decreased oral intake and frequent nausea, vomiting, and abdominal discomfort. She had some chills. She denied cough, chest pain, fevers, diarrhea, and dysuria. She denied ingestion of atypical alcohol such as methanol or ethylene glycol. Emergency department evaluation showed hypotension with blood pressure in the 70s to 80s over 30s to 60s, initially. Initial oxygen saturations were 74% but these improved quickly with addition of supplemental oxygen. Laboratory evaluation showed BUN 224.4, creatinine 12.98, potassium 6.3, bicarb 15, sodium 139, chloride 84, anion gap 40, CK3 63, ketones 2.5, lactic acid 1.7, TSH 1.64, abnormal venous blood gas (pH 7.19, PCO2 41, P O2 42, and bicarb 16), white blood cell 16.4, hemoglobin 16.4, platelets 98, abnormal urine analysis (greater than 182 white blood cells, large leukocyte esterase, many bacteria, and white blood cell clumps), and urine toxicologyscreen positive for amphetamines. She was given 1 g of Rocephin, IV vancomycin, 3 L of IV fluid. Blo od pressure improved. She was given hyperkalemia protocol. Repeat labs showed improvement of potassium and renal function. She was admitted to the ICU for further cares. Renal function improved slowly. Urine culture grew E. Coli. She slowly improved. PT and OT consulted and recommended TCU on discharge but patient refused. ?? Problem list: ?? Sepsis, due to urinary tract infection with E. coli History of MRSA infection -Changed Rocephin to oral Bactrim. Having nausea which may be due to Bactrim so will change to Levaquin and monitor BG. -IV vancomycin stopped with urine cultures growing E. coli -CT of abdomen and pelvis without contrast showed no renal stone and hydronephrosis ?? Acute renal failure, severe Hyperkalemia, severe, improved High anion gap metabolic acidosis (HAGMA), resolved Starvation ketosis Iatrogenic hypernatremia, due to IV fluid -I suspect acute renal failure was due to severe volume depletion from decreased oral intake and vomiting. Renal function has nearly normalized. -Doubt rhabdomyolysis with CK of only 363 -Potassium has normalized -Metabolic acidosis is improved with IV fluid (D5 0.45% NS + 75 Meq/l of NaHCO3). -A.m. basic metabolic panel -To complete HAGMA work up- salicylate level was undetectable. Volatile screen and ethylene glycol are still pending but not expected to be positive at this point.. I suspect HAGMA was due to ketosisand renal failure. -Resume PATIENT RESOURCE SPECIALIST lisinopril -Sodium corrected ?? Hypoxia, improved Hypotension, improved with IV fluids -Likely due to sepsis. -Resolved ?? History of cavernoma with in short cranial hemorrhage in 01/07 -Avoid anticoagulation ?? GERD -Continue prior to admission proton pump inhibitor ?? Hypertension Hypercholesterolemia -Continue PATIENT RESOURCE SPECIALIST amlodipine -Resume PATIENT RESOURCE SPECIALIST isinopril -Continue PATIENT RESOURCE SPECIALIST Crestor Type 2 diabetes -Not on DM med PATIENT RESOURCE SPECIALIST. Continue Novolog sliding scale insulin- can likely stop soon- monitor a bit longer with change to levaquin Seizure disorder -Continue PATIENT RESOURCE SPECIALIST Keppra ?? Chronic pain syndrome managed with opiate?? History of substance abuse Amphetamines on urine toxicology screen -Continue PATIENT RESOURCE SPECIALIST Suboxone. -Continue PATIENT RESOURCE SPECIALIST Lyrica at a lower dose due to ARF ?? History of left BKA after infection after Achilles tendon repair History of right toes amputated Weakness -PT and OT are recommending TCU on discharge but patient is refusing. Anticipate discharge to home in a few days with home PT and OT -She put her leg on this am and ambulated to bathroom with walker Diet: Advance Diet as Tolerated: Regular Diet Adult; Regular Diet Adult DVT Prophylaxis: Pneumatic Compression Devices Arambula Catheter: Not present Lines: None Cardiac Monitoring: None Code Status: Full Code Clinically Significant Risk Factors # Hypernatremia: Highest Na = 150 mmol/L in last 2 days, will monitor as appropriate # Hypomagnesemia: Lowest Mg = 1.2 mg/dL in last 2 days, will replace as needed # Hypoalbuminemia: Lowest albumin = 2.8 g/dL at 09/11/2022 7:30 AM, will monitor as appropriate # Thrombocytopenia: Lowest platelets = 63 in last 2 days, will monitor for bleeding # Hypertension: Noted on problem list # Overweight: Estimated body mass index is 27.79 kg/m?? as calculated from the following: Height as of this encounter: 1.722 m (5' 7.8). Weight as of this encounter: 82.4 kg (181 lb 10.5 oz). Disposition Plan Expected Discharge Date: 09/15/2022 Destination: home;home with family Miguel Angel Rob MD Hospitalist Service [facility] Securely message with [employer] (more info) Text page via [facility] Paging/Directory Interval History Nausea this am- maybe seemed worse after Bactrim Physical Exam Vital Signs: Temp: 96.8 ??F (36 ??C) Temp src: Temporal BP: (!) 143/69 Pulse: 57 Resp: 18 SpO2: 94 % O2 Device: None (Room air) Weight: 181 lbs 10.54 oz GENERAL: Comfortable. Cooperative. PSYCH: pleasant, oriented, No acute distress. EYES: PERRLA, Normal conjunctiva. HEART: Regular rate and rhythm. No JVD. Pulses normal. No edema. LUNGS: Clear to auscultation, normal Respiratory effort. ABDOMEN: Soft, no hepatosplenomegaly, normal bowel sounds. EXTREMETIES: No clubbing, cyanosis or ischemia. L BKA SKIN: Dry to touch, No rash. Medical Decision Making 45 MINUTES SPENT BY ME on the date of service doing chart review, history, exam, documentation & further activities per the note. Data I have personally reviewed the following data over the past 24 hrs: 9.1; 8.6 \ 11.7; 11.9 / 63 (L); 66 (L) 144 106 33.6 (H) / 101 (H) 4.1 28 0.93 \ Ferritin: N/A % Retic: 0.8 LDH: N/A Imaging results reviewed over the past 24 hrs: No results found for this or any previous visit (from the past 24 hour(s)). Recent Labs Lab 09/14/22 0735 09/14/22 0631 09/14/22 0300 09/13/22 1139 09/13/22 0811 09/12/22 1133 09/12/22 1046 09/11/22 0810 09/11/22 0730 09/10/22 0742 09/10/22 0534 09/09/22 2226 09/09/22 2046 WBC -- 8.6 9.1 -- -- -- -- -- -- 9.0 -- 13.5* -- 16.4* HGB -- 11.9 11.7 -- -- -- -- -- -- 11.6* -- 12.9 -- 16.4* MCV -- 102* 103* -- -- -- -- -- -- 97 -- 95 -- 97 PLT -- 66* 63* -- -- -- -- -- -- 60* -- 61* -- 98* INR -- -- -- -- -- -- -- -- -- -- -- -- 1.03 NA -- 144 -- -- 148* -- 150* -- 146* -- 143 < > 139 POTASSIUM -- 4.1 -- -- 4.0 -- 4.1 -- 3.8 -- 4.8 < > 6.3* CHLORIDE -- 106 -- -- 108* -- 109* -- 107 -- 101 < > 84* CO2 -- 28 -- -- 31* -- 30* -- 24 -- 14* < > 15* BUN -- 33.6* -- -- 47.9* -- 75.9* -- 134.6* -- 181.4* < > 224.4* CR -- 0.93 -- -- 1.07* -- 1.33* -- 3.57* -- 8.81* < > 12.98* ANIONGAP -- 10 -- -- 9 -- 11 -- 15 -- 28* < > 40* DANA -- 7.9* -- -- 7.8* -- 7.0* -- 6.9* -- 7.6* < > 8.8 GLC 101* 110* 109* < > 109* < > 133* < > 147* < > 119* < > 137* ALBUMIN -- -- -- -- -- -- -- -- 2.8* -- -- -- 4.5 PROTTOTAL -- -- -- -- -- -- -- -- 5.7* -- -- -- 8.8* BILITOTAL -- -- -- -- -- -- -- -- 0.2 -- -- -- 0.7 ALKPHOS -- -- -- -- -- -- -- -- 58 -- -- -- 88 ALT -- -- -- -- -- -- -- -- 9 -- -- -- 12 AST -- -- -- -- -- -- -- -- 13 -- -- -- 19 < > = values in this interval not displayed. * Miguel Angel Rob MD - 09/13/2022 3:37 PM CDT [facility] Medicine Progress Note - Hospitalist Service Date of Admission: 09/09/2022 Assessment & Plan Alyssa Palencia is a 61 year old female admitted on 09/09/2022 with suspected sepsis due to UTI, acute renal failure with hyperkalemia, and elevated anion gap metabolic acidosis. 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 She presented to the emergency department for evaluation of weakness. Her roommate found her on the floor unable to get up. She had been down for 6 hours. She reported feeling weak for 3 days with decreased oral intake and frequent nausea, vomiting, and abdominal discomfort. She had some chills. She denied cough, chest pain, fevers, diarrhea, and dysuria. She denied ingestion of atypical alcohol such as methanol or ethylene glycol. Emergency department evaluation showed hypotension with blood pressure in the 70s to 80s over 30s to 60s, initially. Initial oxygen saturations were 74% but these improved quickly with addition of supplemental oxygen. Laboratory evaluation showed BUN 224.4, creatinine 12.98, potassium 6.3, bicarb 15, sodium 139, chloride 84, anion gap 40, CK3 63, ketones 2.5, lactic acid 1.7, TSH 1.64, abnormal venous blood gas (pH 7.19, PCO2 41, P O2 42, and bicarb 16), white blood cell 16.4, hemoglobin 16.4, platelets 98, abnormal urine analysis (greater than 182 white blood cells, large leukocyte esterase, many bacteria, and white blood cell clumps), and urine toxicologyscreen positive for amphetamines. She was given 1 g of Rocephin, IV vancomycin, 3 L of IV fluid. Blo od pressure improved. She was given hyperkalemia protocol. Repeat labs showed improvement of potassium and renal function. She was admitted to the ICU for further cares. Renal function improved slowly. Urine culture grew E. Coli. She slowly improved. PT and OT consulted and recommended TCU on discharge but patient refused. ?? Problem list: ?? Sepsis, due to urinary tract infection with E. coli History of MRSA infection -Change Rocephin to oral Bactrim. -IV vancomycin stopped with urine cultures growing E. coli -CT of abdomen and pelvis without contrast showed no renal stone and hydronephrosis ?? Acute renal failure, severe Hyperkalemia, severe, improved High anion gap metabolic acidosis (HAGMA), resolved Starvation ketosis Iatrogenic hypernatremia, due to IV fluid -I suspect acute renal failure was due to severe volume depletion from decreased oral intake and vomiting. Renal function has nearly normalized. -Doubt rhabdomyolysis with CK of only 363 -Potassium has normalized -Metabolic acidosis is improved with IV fluid (D5 0.45% NS + 75 Meq/l of NaHCO3). -A.m. basic metabolic panel -To complete HAGMA work up- salicylate level was undetectable. Volatile screen and ethylene glycol are still pending but not expected to be positive at this point.. I suspect HAGMA was due to ketosisand renal failure. -Continue to hold [employer] RESOURCE SPECIALIST lisinopril- possibly resume tomorrow. -Sodium lisa with D5 0.45 NS + 75 Meq/L of NaHCO3- stopped yesterday. Na improved. I ordered 500 mlof D5 over 5 hours. AM BMP. ?? Hypoxia, improved Hypotension, improved with IV fluids -Likely due to sepsis. Monitor closely ?? History of cavernoma with in short cranial hemorrhage in 01/07 -Avoid anticoagulation ?? GERD -Continue prior to admission proton pump inhibitor ?? Hypertension Hypercholesterolemia -Resume PATIENT RESOURCE SPECIALIST amlodipine -PATIENT RESOURCE SPECIALIST isinopril on hold with ARF and low BP earlier in stay; consider restarting lisinopril tomorrow. -Continue PATIENT RESOURCE SPECIALIST Crestor Type 2 diabetes -Not on DM med PATIENT RESOURCE SPECIALIST. Continue Novolog sliding scale insulin- can likely stop tomorrow Seizure disorder -Continue PATIENT RESOURCE SPECIALIST Keppra ?? Chronic pain syndrome managed with opiate?? History of substance abuse Amphetamines on urine toxicology screen -Continue PATIENT RESOURCE SPECIALIST Suboxone. -Continue PATIENT RESOURCE SPECIALIST Lyrica at a lower dose due to ARF ?? History of left BKA after infection after Achilles tendon repair History of right toes amputated Weakness -PT and OT are recommending TCU on discharge but patient is refusing. Anticipate discharge to home in a few days with home PT and OT Diet: Advance Diet as Tolerated: Regular Diet Adult; Regular Diet Adult DVT Prophylaxis: Pneumatic Compression Devices [place] Catheter: Not present Lines: None Cardiac Monitoring: None Code Status: Full Code Clinically Significant Risk Factors # Hypernatremia: Highest Na = 150 mmol/L in last 2 days, will monitor as appropriate # Hypomagnesemia: Lowest Mg = 1.3 mg/dL in last 2 days, will replace as needed # Hypoalbuminemia: Lowest albumin = 2.8 g/dL at 09/11/2022 7:30 AM, will monitor as appropriate # Hypertension: Noted on problem list # Overweight: Estimated body mass index is 27.79 kg/m?? as calculated from the following: Height as of this encounter: 1.722 m (5' 7.8). Weight as of this encounter: 82.4 kg (181 lb 10.5 oz)., PRESENT ON ADMISSION Disposition Plan Expected Discharge Date: 09/15/2022 Destination: home;home with family Miguel Angel Rob MD Hospitalist Service [facility] Securely message with [employer]olt (more info) Text page via eCert Paging/Directory Interval History Feeling better but still pretty weak. Physical Exam Vital Signs: Temp: 97.1 ??F (36.2 ??C) Temp src: Temporal BP: 133/78 Pulse: 60 Resp: 20 SpO2: 95 % O2 Device: None (Room air) Weight: 181 lbs 10.54 oz GENERAL: Comfortable. Cooperative. PSYCH: pleasant, oriented, No acute distress. EYES: PERRLA, Normal conjunctiva. HEART: Regular rate and rhythm. No JVD. Pulses normal. No edema. LUNGS: Clear to auscultation, normal Respiratory effort. ABDOMEN: Soft, no hepatosplenomegaly, normal bowel sounds. EXTREMETIES: No clubbing, cyanosis or ischemia. Left BKA SKIN: Dry to touch, No rash. Medical Decision Making 45 MINUTES SPENT BY ME on the date of service doing chart review, history, exam, documentation & further activities per the note. Data I have personally reviewed the following data over the past 24 hrs: N/A \ N/A / N/A 148 (H) 108 (H) 47.9 (H) / 117 (H) 4.0 31 (H) 1.07 (H) \ Imaging results reviewed over the past 24 hrs: No results found for this or any previous visit (from the past 24 hour(s)). Recent Labs Lab 09/13/22 1139 09/13/22 0811 09/13/22 0732 09/12/22 1133 09/12/22 1046 09/11/22 0810 09/11/22 0730 09/10/22 0742 09/10/22 0534 09/09/22 2226 09/09/22 2046 WBC -- -- -- -- -- -- 9.0 -- 13.5* -- 16.4* HGB -- -- -- -- -- -- 11.6* -- 12.9 -- 16.4* MCV -- -- -- -- -- -- 97 -- 95 -- 97 PLT -- -- -- -- -- -- 60* -- 61* -- 98* INR -- -- -- -- -- -- -- -- -- -- 1.03 NA -- 148* -- -- 150* -- 146* -- 143 < > 139 POTASSIUM -- 4.0 -- -- 4.1 -- 3.8 -- 4.8 < > 6.3* CHLORIDE -- 108* -- -- 109* -- 107 -- 101 < > 84* CO2 -- 31* -- -- 30* -- 24 -- 14* < > 15* BUN -- 47.9* -- -- 75.9* -- 134.6* -- 181.4* < > 224.4* CR -- 1.07* -- -- 1.33* -- 3.57* -- 8.81* < > 12.98* ANIONGAP -- 9 -- -- 11 -- 15 -- 28* < > 40* DANA -- 7.8* -- -- 7.0* -- 6.9* -- 7.6* < > 8.8 GLC 117* 109* 90 < > 133* < > 147* < > 119* < > 137* ALBUMIN -- -- -- -- -- -- 2.8* -- -- -- 4.5 PROTTOTAL -- -- -- -- -- -- 5.7* -- -- -- 8.8* BILITOTAL -- -- -- -- -- -- 0.2 -- -- -- 0.7 ALKPHOS -- -- -- -- -- -- 58 -- -- -- 88 ALT -- -- -- -- -- -- 9 -- -- -- 12 AST -- -- -- -- -- -- 13 -- -- -- 19 < > = values in this interval not displayed. * Lisa Joseph, OT - 09/13/2022 10:14 AM CDT 09/13/22 0957 Appointment Info Signing Clinician's Name / Credentials (OT) Lisa Joseph OTR/[facility] Comments (OT) BKA/LLE prosthetic Living Environment People in Home other (see comments) (roommates) Current Living Arrangements house Home Accessibility stairs to enter home Number of Stairs, Main Entrance 4 Stair Railings, Main Entrance none Transportation Anticipated family or friend will provide Living Environment Comments Pt unwilling to answer questions. Per chart: Pt states she lives on the main level and Doesn't ever leave the house. Pt states bathroom is all set up with needs such asshower chair/bar and RTS. Pt states she sits in bed all day Self-Care Usual Activity Tolerance moderate Current Activity Tolerance poor Equipment Currently Used at Home wheelchair, manual;walker, rolling;walker, lana;raised toilet seat;shower chair;prosthesis Fall history within last six months yes Number of times patient has fallen within last six months 1 Activity/Exercise/Self-Care Comment Pt unwilling to provide info. Per chart Pt reports being indepwith all ADLs and mobility with use of FWW and L prosthesis. Pt states that she has friends and family that helps with IADLs such as errands and shopping for groceries. Pt unable to identify specificindividuals who provide assistance. General Information Onset of Illness/Injury or Date of Surgery 09/09/22 Referring Physician Miguel Angel Rob MD Patient/Family Therapy Goal Statement (OT) I'm going home Additional Occupational Profile Info/Pertinent History of Current Problem Per chart: Pt is a 61 year old female admitted after being found on floor by roommate, suspected sepsis due to UTI, acute renal failure with hyperkalemia, and elevated anion gap metabolic acidosis. She has history of substance abuse, chronic pain syndrome now managed with Suboxone (I believe), previous Achilles tendon surgery complicated by infection and ultimately a left below the knee amputation. Existing Precautions/Restrictions fall;other (see comments) (LLE prosthetic) Cognitive Status Examination Behavioral Issues overwhelmed easily Affect/Mental Status (Cognitive) confused;anxious;agitated;sad/depressed affect Cognitive Status Comments Pt emotionally labile t/o session; conflicting statements provided. Argumentative Pain Assessment Patient Currently in Pain No Strength Comprehensive (MMT) Comment, General Manual Muscle Testing (MMT) Assessment Generalized weakness Bed Mobility Bed Mobility supine-sit;sit-supine Supine-Sit [place] (Bed Mobility) supervision Sit-Supine [place] (Bed Mobility) supervision Comment (Bed Mobility) Performed supine > sit, immediately returned to supine due to dizziness; unwilling to reattempt Transfers Transfers bed-chair transfer;sit-stand transfer;toilet transfer;shower transfer Transfer Skill: Bed to Chair/Chair to Bed Transfer Comments Declined to attempt, recommend overhead lift Sit-Stand Transfer Sit/Stand Transfer Comments Declined to attempt; recommend overhead lift Shower Transfer [place] Level (Shower Transfer) not tested Toilet Transfer Toilet Transfer Comments Declined to attempt; recommend overhead lift Balance Balance Comments Unable to assess as pt unwilling to attempt sitting at EOB Activities of Daily Living BADL Assessment/Intervention upper body dressing;lower body dressing;grooming;toileting Upper Body Dressing Assessment/Training [place] Level (Upper Body Dressing) minimum assist (75% patient effort) Lower Body Dressing Assessment/Training [place] Level (Lower Body Dressing) maximum assist (25% patient effort) Grooming Assessment/Training [place] Level (Grooming) minimum assist (75% patient effort) Toileting [place] Level (Toileting) dependent (less than 25% patient effort) Clinical Impression Criteria for Skilled Therapeutic Interventions Met (OT) Yes, treatment indicated OT Diagnosis Impaired ADLs, mobility tasks OT Problem List-Impairments impacting ADL problems related to;activity tolerance impaired;balance;strength;pain;cognition ADL comments/analysis Pt below stated baseline level of functioning Assessment of Occupational Performance 5 or more Performance Deficits Identified Performance Deficits Dressing, grooming, toileting, transfers, homemaking Planned Therapy Interventions (OT) ADL retraining;IADL retraining;balance training;cognition;strengthening;transfer training;home program guidelines;progressive activity/exercise;risk factor education Clinical Decision Making Complexity (OT) moderate complexity Risk & Benefits of therapy have been explained evaluation/treatment results reviewed;care plan/treatment goals reviewed;risks/benefits reviewed;current/potential barriers reviewed;participants voiced agreement with care plan;participants included;patient OT Total Evaluation Time OT Eval, Moderate Complexity Minutes ([id number]) 10 OT Goals Therapy Frequency (OT) 5 times/wk OT Predicted Duration/Target Date for Goal Attainment 09/20/22 OT Goals Hygiene/Grooming;Lower Body Dressing;Toilet Transfer/Toileting OT: Hygiene/Grooming supervision/stand-by assist;using adaptive equipment;while standing OT: Lower Body Dressing Supervision/stand-by assist;including orthotic;using adaptive equipment OT: Toilet Transfer/Toileting Supervision/stand-by assist;toilet transfer;cleaning and garment management;using adaptive equipment OT Discharge Planning OT Discharge Recommendation (DC Rec) Transitional Care Facility OT Rationale for DC Rec Pt with limited participation in functional activity. Pt mostly unwilling to attempt activity despite max education, poor reasoning t/o session. Currently requiring total A for toileting and recommendation for use of overhead lift at this time. Recommend ongoing skilled OT while IP and in TCU setting to improve strength, functional activity tolerance, balance and safety needed for daily tasks. Pt declining TCU. OT Brief overview of current status Unable to tolerate sitting EOB due to dizziness, unwilling to reattempt Total Session Time Total Session Time (sum of timed and untimed services) 10 * Jayant Dickerson MD - 09/12/2022 4:05 PM CDT Renal Medicine Progress Note Assessment/Plan: # Severe acute kidney injury due to urosepsis: -improving nicely ?? # Urosepsis and septic shock. -improved. -UC w Ecoli -Rocephin ?? # History hypertension: PATIENT RESOURCE SPECIALIST lisinopril. BP better but still on the low side . ?? # FEN: Mild hypernatremia. No peripheral edema. Excellent urine output. Hypomagnesemia. Corrected calcium is 7.9. ?? Plan: # Kidney function continues to improve nicely. Iatrogenic hypernatremia should improve with free water intake and stopping fluid infusion. I am signing off. Please call me back if you need further assistance. Thank you. Interval History: She continues to feel better. No specific complaints from her. Afebrile. VSS Medications and Allergies: ??? buprenorphine HCl-naloxone HCl 1 Film Sublingual Daily ??? cefTRIAXone 2 g Intravenous Q24H ??? insulin aspart 1-7 Units Subcutaneous TID AC ??? insulin aspart 1-5 Units Subcutaneous At Bedtime ??? levETIRAcetam 1,000 mg Oral BID ??? magnesium sulfate 4 g Intravenous Once ??? miconazole Topical BID ??? pantoprazole 40 mg Oral Daily ??? PARoxetine 60 mg Oral Daily ??? pregabalin 25 mg Oral Daily ??? rosuvastatin 5 mg Oral Daily Allergies Allergen Reactions ??? Acetaminophen Other reaction(s): Gastric Reflux ??? Buspirone Unknown dizzy ??? Celecoxib Body gets stiff ??? Gabapentin Body stiffness ??? Ibuprofen Unknown Stomach upset. She reported that she will take if needs something. ??? Naproxen Body stiffness Upsets stomach ??? Nsaids Other (See Comments) bruises ??? Prednisone Other (See Comments) Sores in her mouth and doesn't like what it does to her ??? Sertraline Cramping, flatulence ??? Atorvastatin Rash Physical Exam: Vitals were reviewed , Blood pressure 114/65, pulse 60, temperature 96.9 ??F (36.1 ??C), temperature source Temporal, resp. rate 16, height 1.722 m (5' 7.8), weight 80.1 kg (176 lb 10.5 oz), last menstrual period 09/10/2012, SpO2 94 %, not currently . Wt Readings from Last 3 Encounters: 09/12/22 80.1 kg (176 lb 10.5 oz) 02/20/22 87.5 kg (193 lb) 10/11/21 91.1 kg (200 lb 12.8 oz) Intake/Output Summary (Last 24 hours) at 09/12/2022 1605 Last data filed at 09/12/2022 1521 Gross per 24 hour Intake 2302 ml Output 2050 ml Net 252 ml GENERAL APPEARANCE:NAD HEENT: Eyes/ears/nose/neck grossly normal RESP: lungs cta b c good efforts, no crackles CV: RRR, nl S1/S2 ABDOMEN: Soft, NT. ND EXTREMITIES/SKIN: no rashes/lesions on observed skin; no edema NEURO: Awake, alert and conversing Data: CBC RESULTS: Recent Labs Lab 09/11/22 0730 09/10/22 0534 09/09/222045 WBC 9.0 13.5* 16.4* RBC 3.53* 3.96 5.12 HGB 11.6* 12.9 16.4* HCT 34.1* 37.5 49.4* PLT 60* 61* 98* Basic Metabolic Panel: Recent Labs Lab 09/12/22 1133 09/12/22 1046 09/12/22 0733 09/12/22 0135 09/11/22 2206 09/11/22 1742 09/11/22 0810 09/11/22 0730 09/10/22 0742 09/10/22 0534 09/09/22 2356 09/09/22 2352 09/09/22 2324 09/09/22 2226 09/09/222045 NA -- 150* -- -- -- -- -- 146* -- 143 -- 140 139 -- 139 POTASSIUM -- 4.1 -- -- -- -- -- 3.8 -- 4.8 -- 4.8 5.4* -- 6.3* CHLORIDE -- 109* -- -- -- -- -- 107 -- 101 -- 95* 93* -- 84* CO2 -- 30* -- -- -- -- -- 24 -- 14* -- 15* 13* -- 15* BUN -- 75.9* -- -- -- -- -- 134.6* -- 181.4* -- 206.9* 210.8* -- 224.4* CR -- 1.33* -- -- -- -- -- 3.57* -- 8.81* -- 10.48* 10.68* -- 12.98* GLC 129* 133* 106* 135* 143* 156* < > 147* < > 119* < > 123* 176* < > 137* DANA -- 7.0* -- -- -- -- -- 6.9* -- 7.6* -- 8.2* 8.4* -- 8.8 < > = values in this interval not displayed. INR Recent Labs Lab 09/09/222045 INR 1.03 Attestation: I have reviewed today's relevant vital signs, notes, medications, labs and imaging. Jayant Dickerson MD [facility] Nephrology Office phone :[phone] Pager: [phone] * Sarah Sevilla PT - 09/12/2022 12:36 PM CDT 09/12/22 1140 Appointment Info Signing Clinician's Name / Credentials (PT) Sarah Sevilla PT Living Environment People in Home other (see comments) (has roommates (several per patient); unable to assist) Current Living Arrangements house Home Accessibility stairs to enter home Number of Stairs, Main Entrance 4 Stair Railings, Main Entrance none Transportation Anticipated family or friend will provide Living Environment Comments per chart: Pt states she lives on the main level and Doesn't ever leave the house. Pt states bathroom is all set up with needs such as shower chair/bar and RTS. Pt states she sits in bed all day Self-Care Usual Activity Tolerance moderate Current Activity Tolerance poor Equipment Currently Used at Home wheelchair, manual;walker, rolling;walker, lana;raised toilet seat;shower chair;prosthesis Fall history within last six months yes Number of times patient has fallen within last six months 1 (fall prior to admit; denies other falls) Activity/Exercise/Self-Care Comment per chart Pt reports being indep with all ADLs and mobility with use of FWW and L prosthesis. Pt states that she has friends and family that helps with IADLs suchas errands and shopping for groceries. Pt unable to identify specific individuals who provide assistance. General Information Onset of Illness/Injury or Date of Surgery 09/09/22 Referring Physician Miguel Angel Rob MD Patient/Family Therapy Goals Statement (PT) return home; declines going to TCU Pertinent History of Current Problem (include personal factors and/or comorbidities that impact thePOC) per chart: Alyssa Palencia is a 61 year old female admitted on 09/09/2022 with suspected sepsis due to UTI, acute renal failure with hyperkalemia, and elevated anion gap metabolic acidosis. 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 She presented to the emergency department for evaluation of weakness. Her roommate found her on the floor unable to get up. She had been down for 6 hours. She reported feeling weak for 3 days with decreased oral intake and frequent nausea, vomiting, and abdominal discomfort. She had some chills. Found to have Sepsis, due to urinary tract infection with E. coli, severe ARF; hypoxia; hypotension Existing Precautions/Restrictions fall General Observations patient in bed; some dizziness; HR 115-168 when sitting; no telemetry Cognition Orientation Status (Cognition) person (knew she was in the hospital; thought she was at [facility]; unsure of month) Cognitive Status Comments appears impaired currently Pain Assessment Patient Currently in Pain No Posture Posture Comments forward head and rounded shoulders in sitting at EOB Range of Motion (ROM) ROM Comment WFL Strength (Manual Muscle Testing) Strength Comments functional weakness noted from current illness; poor activity tolerance Bed Mobility Comment, (Bed Mobility) CGA/SBA with HOB elevated/use of bedrail Transfers Comment, (Transfers) unable to tolerate Gait/Stairs (Locomotion) Comment, (Gait/Stairs) unable to tolerate Balance Balance Comments intact sitting balance at EOB with UE support Clinical Impression Criteria for Skilled Therapeutic Intervention Yes, treatment indicated PT Diagnosis (PT) impaired functional mobility Influenced by the following impairments weakness; decreased activity tolerance; impaired balance; impaired cognition; decreased insight into deficits Functional limitations due to impairments impaired independence with functional mobility and cares secondary to above deficits Clinical Presentation (PT Evaluation Complexity) Evolving/Changing Clinical Presentation Rationale clinical judgement; level of assist Clinical Decision Making (Complexity) moderate complexity Planned Therapy Interventions (PT) bed mobility training;balance training;gait training;transfer training;strengthening;progressive activity/exercise Anticipated Equipment Needs at Discharge (PT) walker, rolling;wheelchair Risk & Benefits of therapy have been explained evaluation/treatment results reviewed;care plan/treatment goals reviewed;risks/benefits reviewed;current/potential barriers reviewed;participants voiced agreement with care plan;participants included;patient PT Total Evaluation Time PT Eval, Moderate Complexity Minutes ([id number]) 10 Physical Therapy Goals PT Frequency Daily PT Predicted Duration/Target Date for Goal Attainment 09/18/22 PT Goals Bed Mobility;Transfers;Gait;Stairs PT: Bed Mobility Independent;Supine to/from sit PT: Transfers Modified independent;Sit to/from stand;Bed to/from chair;Assistive device PT: Gait Modified independent;Rolling walker;100 feet PT: Stairs Modified independent;Assistive device;4 stairs PT Discharge Planning PT Discharge Recommendation (DC Rec) Transitional Care Facility;home with assist;home with home care physical therapy PT Rationale for DC Rec Patient appears significantly below reported baseline level of function andcurrently limited by dizziness and elevated HR just sitting at EOB; reports she has stairs and roommates but will not have help from them; reports she won't go to a TCU and that daughter lives next door and may be able to stay with her to assist; Would benefit from TCU to maximize return to independence; would needs to be mod I to return home without assist or min to supervision level if daughterstaying with her PT Brief overview of current status A x 1; only able to tolerate sitting at EOB; limited by dizziness and elevated HR * Miguel Angel Rob MD - 09/12/2022 9:48 AM CDT [facility] Medicine Progress Note - Hospitalist Service Date of Admission: 09/09/2022 Assessment & Plan Alyssa Palencia is a 61 year old female admitted on 09/09/2022 with suspected sepsis due to UTI, acute renal failure with hyperkalemia, and elevated anion gap metabolic acidosis. 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 She presented to the emergency department for evaluation of weakness. Her roommate found her on the floor unable to get up. She had been down for 6 hours. She reported feeling weak for 3 days with decreased oral intake and frequent nausea, vomiting, and abdominal discomfort. She had some chills. She denied cough, chest pain, fevers, diarrhea, and dysuria. She denied ingestion of atypical alcohol such as methanol or ethylene glycol. Emergency department evaluation showed hypotension with blood pressure in the 70s to 80s over 30s to 60s, initially. Initial oxygen saturations were 74% but these improved quickly with addition of supplemental oxygen. Laboratory evaluation showed BUN 224.4, creatinine 12.98, potassium 6.3, bicarb 15, sodium 139, chloride 84, anion gap 40, CK3 63, ketones 2.5, lactic acid 1.7, TSH 1.64, abnormal venous blood gas (pH 7.19, PCO2 41, P O2 42, and bicarb 16), white blood cell 16.4, hemoglobin 16.4, platelets 98, abnormal urine analysis (greater than 182 white blood cells, large leukocyte esterase, many bacteria, and white blood cell clumps), and urine toxicologyscreen positive for amphetamines. She was given 1 g of Rocephin, IV vancomycin, 3 L of IV fluid. Blo od pressure improved. She was given hyperkalemia protocol. Repeat labs showed improvement of potassium and renal function. She was admitted to the ICU for further cares. Renal function improved slowly. Urine culture grew E. Coli. ?? Problem list: ?? Sepsis, due to urinary tract infection with E. coli History of MRSA infection -Continue Rocephin 2 g every 24 hours; change to oral Levaquin once renal function closer to normal -IV vancomycin stopped with urine cultures growing E. coli -CT of abdomen and pelvis without contrast showed no renal stone and hydronephrosis -Decrease D5 0.45% NS + 75 Meq/l if NaHCO3 to 75 ml/hr ?? Acute renal failure, severe Hyperkalemia, severe, improved High anion gap metabolic acidosis (HAGMA), resolved Starvation ketosis -I suspect acute renal failure is due to severe volume depletion from decreased oral intake and vomiting -Doubt rhabdomyolysis with CK of only 363 -Potassium has normalized -Kidney function improving with IVF -Metabolic acidosis is improving with IV fluid (D5 0.45% NS + 75 Meq/l if NaHCO3). -A.m. basic metabolic panel -To complete HAGMA work up- salicylate level was undetectable. Volatile screen and ethylene glycol are still pending but not expected to be positive at this point.. I suspect HAGMA was due to ketosisand renal failure. -Continue to hold PATIENT RESOURCE SPECIALIST lisinopril ?? Hypoxia, improved Hypotension, improved with IV fluids -Likely due to sepsis. Monitor closely -Recurrent hypotension this afternoon; NS bolus ordered. Continue maintenance IVF ?? History of cavernoma with in short cranial hemorrhage in 01/07 -Avoid anticoagulation for now ?? GERD -Continue prior to admission proton pump inhibitor ?? Hypertension Hypercholesterolemia -PATIENT RESOURCE SPECIALIST amlodipine and lisinopril on hold with low BP -Continue PATIENT RESOURCE SPECIALIST Crestor Type 2 diabetes -Not on DM med PATIENT RESOURCE SPECIALIST. Continue Novolog sliding scale insulin- can likely stop once D5 IVF discontinued Seizure disorder -Continue PATIENT RESOURCE SPECIALIST Keppra ?? Chronic pain syndrome managed with opiate?? History of substance abuse Amphetamines on urine toxicology screen -RContinue PATIENT RESOURCE SPECIALIST Suboxone. -Continue PATIENT RESOURCE SPECIALIST Lyrica at a lower dose due to ARF ?? History of left BKA after infection after Achilles tendon repair History of right toes amputated Weakness -PT and OT consults for discharge planning Diet: Advance Diet as Tolerated: Regular Diet Adult; Regular Diet Adult DVT Prophylaxis: Pneumatic Compression Devices Arambula Catheter: Not present Lines: None Cardiac Monitoring: None Code Status: Full Code Clinically Significant Risk Factors # Hypernatremia: Highest Na = 146 mmol/L in last 2 days, will monitor as appropriate # Hypomagnesemia: Lowest Mg = 1.1 mg/dL in last 2 days, will replace as needed # Hypoalbuminemia: Lowest albumin = 2.8 g/dL at 09/11/2022 7:30 AM, will monitor as appropriate # Thrombocytopenia: Lowest platelets = 60 in last 2 days, will monitor for bleeding # Hypertension: Noted on problem list # Overweight: Estimated body mass index is 27.02 kg/m?? as calculated from the following: Height as of this encounter: 1.722 m (5' 7.8). Weight as of this encounter: 80.1 kg (176 lb 10.5 oz)., PRESENT ON ADMISSION Disposition Plan Expected Discharge Date: 09/13/2022 Miguel Angel Rob MD Hospitalist Service [facility] Securely message with Bolt (more info) Text page via [facility] Paging/Directory Interval History No new problems. Feeling better today, although some nausea this am. Physical Exam Vital Signs: Temp: 97.8 ??F (36.6 ??C) Temp src: Temporal BP: 128/79 Pulse: 57 Resp: 16 SpO2: 98 % O2 Device: Nasal cannula Oxygen Delivery: 2 LPM Weight: 176 lbs 10.54 oz GENERAL: Comfortable. Cooperative. PSYCH: pleasant, oriented, No acute distress. EYES: PERRLA, Normal conjunctiva. HEART: Regular rate and rhythm. No JVD. Pulses normal. No edema. LUNGS: Clear to auscultation, normal Respiratory effort. ABDOMEN: Soft, no hepatosplenomegaly, normal bowel sounds. EXTREMETIES: No clubbing, cyanosis or ischemia. L BKA SKIN: Dry to touch, No rash. Medical Decision Making 50 MINUTES SPENT BY ME on the date of service doing chart review, history, exam, documentation & further activities per the note. Data Imaging results reviewed over the past 24 hrs: No results found for this or any previous visit (from the past 24 hour(s)). Recent Labs Lab 09/12/22 0733 09/12/22 0135 09/11/22 2206 09/11/22 0810 09/11/22 0730 09/10/22 0742 09/10/22 0534 09/09/22 2356 09/09/22 2352 09/09/22 2226 09/09/22 2046 WBC -- -- -- -- 9.0 -- 13.5* -- -- -- 16.4* HGB -- -- -- -- 11.6* -- 12.9 -- -- -- 16.4* MCV -- -- -- -- 97 -- 95 -- -- -- 97 PLT -- -- -- -- 60* -- 61* -- -- -- 98* INR -- -- -- -- -- -- -- -- -- -- 1.03 NA -- -- -- -- 146* -- 143 -- 140 < > 139 POTASSIUM -- -- -- -- 3.8 -- 4.8 -- 4.8 < > 6.3* CHLORIDE -- -- -- -- 107 -- 101 -- 95* < > 84* CO2 -- -- -- -- 24 -- 14* -- 15* < > 15* BUN -- -- -- -- 134.6* -- 181.4* -- 206.9* < > 224.4* CR -- -- -- -- 3.57* -- 8.81* -- 10.48* < > 12.98* ANIONGAP -- -- -- -- 15 -- 28* -- 30* < > 40* DANA -- -- -- -- 6.9* -- 7.6* -- 8.2* < > 8.8 GLC 106* 135* 143* < > 147* < > 119* < > 123* < > 137* ALBUMIN -- -- -- -- 2.8* -- -- -- -- -- 4.5 PROTTOTAL -- -- -- -- 5.7* -- -- -- -- -- 8.8* BILITOTAL -- -- -- -- 0.2 -- -- -- -- -- 0.7 ALKPHOS -- -- -- -- 58 -- -- -- -- -- 88 ALT -- -- -- -- 9 -- -- -- -- -- 12 AST -- -- -- -- 13 -- -- -- -- -- 19 < > = values in this interval not displayed. * Miguel Angel Rob MD - 09/11/2022 2:22 PM CDT [facility] Medicine Progress Note - Hospitalist Service Date of Admission: 09/09/2022 Assessment & Plan Alyssa Palencia is a 61 year old female admitted on 09/09/2022 with suspected sepsis due to UTI, acute renal failure with hyperkalemia, and elevated anion gap metabolic acidosis. 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 She presented to the emergency department for evaluation of weakness. Her roommate found her on the floor unable to get up. She had been down for 6 hours. She reported feeling weak for 3 days with decreased oral intake and frequent nausea, vomiting, and abdominal discomfort. She had some chills. She denied cough, chest pain, fevers, diarrhea, and dysuria. She denied ingestion of atypical alcohol such as methanol or ethylene glycol. Emergency department evaluation showed hypotension with blood pressure in the 70s to 80s over 30s to 60s, initially. Initial oxygen saturations were 74% but these improved quickly with addition of supplemental oxygen. Laboratory evaluation showed BUN 224.4, creatinine 12.98, potassium 6.3, bicarb 15, sodium 139, chloride 84, anion gap 40, CK3 63, ketones 2.5, lactic acid 1.7, TSH 1.64, abnormal venous blood gas (pH 7.19, PCO2 41, P O2 42, and bicarb 16), white blood cell 16.4, hemoglobin 16.4, platelets 98, abnormal urine analysis (greater than 182 white blood cells, large leukocyte esterase, many bacteria, and white blood cell clumps), and urine toxicologyscreen positive for amphetamines. She was given 1 g of Rocephin, IV vancomycin, 3 L of IV fluid. Blo od pressure improved. She was given hyperkalemia protocol. Repeat labs showed improvement of potassium and renal function. She was admitted to the ICU for further cares. ?? Problem list: ?? Sepsis, due to urinary tract infection with E. coli History of MRSA infection -Continue Rocephin 2 g every 24 hours -IV vancomycin stopped with urine cultures growing E. coli -Follow urine and blood cultures -CT of abdomen and pelvis without contrast showed no renal stone and hydronephrosis -Low BP this afternoon; NS 500ml bolus ordered. Increase D5 0.45% NS + 75 Meq/l if NaHCO3 back to 125 ml/hr ?? Acute renal failure, severe Hyperkalemia, severe, improved High anion gap metabolic acidosis (HAGMA), resolved Starvation ketosis -I suspect acute renal failure is due to severe volume depletion from decreased oral intake and vomiting -Doubt rhabdomyolysis with CK of only 363 -Potassium has normalized -Kidney function improving with IVF -Metabolic acidosis is improving with IV fluid (D5 0.45% NS + 75 Meq/l if NaHCO3). -A.m. basic metabolic panel -To complete HAGMA work up- salicylate level was undetectable. Volatile screen and ethylene glycol are still pending but not expected to be positive at this point.. I suspect HAGMA was due to ketosisand renal failure. -Continue to hold PATIENT RESOURCE SPECIALIST lisinopril ?? Hypoxia, improved Hypotension, improved with IV fluids -Likely due to sepsis. Monitor closely -Recurrent hypotension this afternoon; NS bolus ordered. Continue maintenance IVF ?? History of cavernoma with in short cranial hemorrhage in 01/07 -Avoid anticoagulation for now ?? GERD -Continue prior to admission proton pump inhibitor ?? Hypertension Hypercholesterolemia -PATIENT RESOURCE SPECIALIST amlodipine and lisinopril on hold with low BP -Resume PATIENT RESOURCE SPECIALIST Crestor Type 2 diabetes -Not on DM med PATIENT RESOURCE SPECIALIST. Continue Novolog sliding scale insulin Seizure disorder -Resume PATIENT RESOURCE SPECIALIST Keppra ?? Chronic pain syndrome managed with opiate?? History of substance abuse Amphetamines on urine toxicology screen -Resume PATIENT RESOURCE SPECIALIST Suboxone. -Resume Lyrica at a lower dose due to ARF ?? History of left BKA after infection after Achilles tendon repair History of right toes amputated Weakness -PT and OT consults for discharge planning Diet: Advance Diet as Tolerated: Regular Diet Adult; Regular Diet Adult DVT Prophylaxis: Pneumatic Compression Devices Arambula Catheter: Not present Lines: None Cardiac Monitoring: ACTIVE order. Indication: ICU Code Status: Full Code Clinically Significant Risk Factors # Hyperkalemia: Highest K = 6.3 mmol/L in last 2 days, will monitor as appropriate # Hypernatremia: Highest Na = 146 mmol/L in last 2 days, will monitor as appropriate # Hypomagnesemia: Lowest Mg = 1.1 mg/dL in last 2 days, will replace as needed # Anion Gap Metabolic Acidosis: Highest Anion Gap = 40 mmol/L in last 2 days, will monitor and treat as appropriate # Hypoalbuminemia: Lowest albumin = 2.8 g/dL at 09/11/2022 7:30 AM, will monitor as appropriate # Thrombocytopenia: Lowest platelets = 60 in last 2 days, will monitor for bleeding # Hypertension: Noted on problem list # Overweight: Estimated body mass index is 26.84 kg/m?? as calculated from the following: Height as of this encounter: 1.722 m (5' 7.8). Weight as of this encounter: 79.6 kg (175 lb 7.8 oz)., PRESENT ON ADMISSION Disposition Plan Expected Discharge Date: 09/13/2022 Miguel Angel Rob MD Hospitalist Service [facility] Securely message with [employer]olt (more info) Text page via [employer] Paging/Directory Interval History Feeling better. No new problems. Physical Exam Vital Signs: Temp: 96.8 ??F (36 ??C) Temp src: Temporal BP: 90/60 Pulse: 72 Resp: 18 SpO2: 97 % O2 Device: Nasal cannula Oxygen Delivery: 2 LPM Weight: 175 lbs 7.78 oz GENERAL: Comfortable. Cooperative. PSYCH: pleasant, oriented, No acute distress. EYES: PERRLA, Normal conjunctiva. HEART: Regular rate and rhythm. No JVD. Pulses normal. No edema. LUNGS: Clear to auscultation, normal Respiratory effort. ABDOMEN: Soft, no hepatosplenomegaly, normal bowel sounds. EXTREMETIES: No clubbing, cyanosis or ischemia. Left BKA and right toes amputated SKIN: Dry to touch, No rash. Medical Decision Making 60 MINUTES SPENT BY ME on the date of service doing chart review, history, exam, documentation & further activities per the note. Data I have personally reviewed the following data over the past 24 hrs: 9.0 \ 11.6 (L) / 60 (L) 146 (H) 107 134.6 (H) / 171 (H) 3.8 24 3.57 (H) \ ALT: 9 AST: 13 AP: 58 TBILI: 0.2 ALB: 2.8 (L) TOT PROTEIN: 5.7 (L) LIPASE: N/A Imaging results reviewed over the past 24 hrs: Recent Results (from the past 24 hour(s)) US Abdomen Limited Narrative US ABDOMEN LIMITED 09/11/2022 8:12 AM CLINICAL HISTORY: Sepsis, distended gallbladder. TECHNIQUE: Limited abdominal ultrasound. COMPARISON: Ultrasound from April 03, 2017, CT scan from September 10, 2022. FINDINGS: GALLBLADDER: Gallbladder is elongated but not abnormal by short axis criteria. Some sludge is present, no shadowing stones. No pathologic wall thickening demonstrated. BILE DUCTS: Previously seen polyp not seen today. The common duct measures 6 mm. LIVER: Unremarkable where seen. RIGHT KIDNEY: No hydronephrosis. PANCREAS: The visualized portions of the pancreas are normal. No ascites. Impression IMPRESSION: The size of the gallbladder is similar to the 2018 comparison study and this is likely chronic. KATARZYNA LOGAN MD Recent Labs Lab 09/11/22 1140 09/11/22 0810 09/11/22 0730 09/10/22 0742 09/10/22 0534 09/09/22 2356 09/09/22 2352 09/09/22 2226 09/09/22 2046 WBC -- -- 9.0 -- 13.5* -- -- -- 16.4* HGB -- -- 11.6* -- 12.9 -- -- -- 16.4* MCV -- -- 97 -- 95 -- -- -- 97 PLT -- -- 60* -- 61* -- -- -- 98* INR -- -- -- -- -- -- -- -- 1.03 NA -- -- 146* -- 143 -- 140 < > 139 POTASSIUM -- -- 3.8 -- 4.8 -- 4.8 < > 6.3* CHLORIDE -- -- 107 -- 101 -- 95* < > 84* CO2 -- -- 24 -- 14* -- 15* < > 15* BUN -- -- 134.6* -- 181.4* -- 206.9* < > 224.4* CR -- -- 3.57* -- 8.81* -- 10.48* < > 12.98* ANIONGAP -- -- 15 -- 28* -- 30* < > 40* DANA -- -- 6.9* -- 7.6* -- 8.2* < > 8.8 GLC 171* 132* 147* < > 119* < > 123* < > 137* ALBUMIN -- -- 2.8* -- -- -- -- -- 4.5 PROTTOTAL -- -- 5.7* -- -- -- -- -- 8.8* BILITOTAL -- -- 0.2 -- -- -- -- -- 0.7 ALKPHOS -- -- 58 -- -- -- -- -- 88 ALT -- -- 9 -- -- -- -- -- 12 AST -- -- 13 -- -- -- -- -- 19 < > = values in this interval not displayed. * Jayant Dickerson MD - 09/11/2022 2:16 PM CDT Renal Medicine Progress Note Assessment/Plan: # Severe acute kidney injury due to urosepsis: -improving nicely # Urosepsis and septic shock. -improved. -UC w Ecoli -Rocephin # History hypertension: PATIENT RESOURCE SPECIALIST lisinopril. BP better but still on the low side . # FEN: Mild hypernatremia. No peripheral edema. Excellent urine output. Hypomagnesemia. Corrected calcium is 7.9. Plan: # Can stop IVF after this bag is finished. # Daily renal panel Interval History: She feels better. Appetite is poor. Denies SOB. Using 2 liters O2 via NC. Kidney function continues to improve nicely. Medications and Allergies: ??? buprenorphine HCl-naloxone HCl 1 Film Sublingual Daily ??? cefTRIAXone 2 g Intravenous Q24H ??? insulin aspart 1-7 Units Subcutaneous TID AC ??? insulin aspart 1-5 Units Subcutaneous At Bedtime ??? levETIRAcetam 500 mg Oral BID ??? miconazole Topical BID ??? pantoprazole 40 mg Oral Daily ??? PARoxetine 60 mg Oral Daily ??? pregabalin 25 mg Oral Daily ??? rosuvastatin 5 mg Oral Daily Allergies Allergen Reactions ??? Acetaminophen Other reaction(s): Gastric Reflux ??? Buspirone Unknown dizzy ??? Celecoxib Body gets stiff ??? Gabapentin Body stiffness ??? Ibuprofen Unknown Stomach upset. She reported that she will take if needs something. ??? Naproxen Body stiffness Upsets stomach ??? Nsaids Other (See Comments) bruises ??? Prednisone Other (See Comments) Sores in her mouth and doesn't like what it does to her ??? Sertraline Cramping, flatulence ??? Atorvastatin Rash Physical Exam: Vitals were reviewed , Blood pressure 90/60, pulse 72, temperature 96.8 ??F (36 ??C), temperature source Temporal, resp.rate 18, height 1.722 m (5' 7.8), weight 79.6 kg (175 lb 7.8 oz), last menstrual period 09/10/2012, SpO2 97 %, not currently . Wt Readings from Last 3 Encounters: 09/11/22 79.6 kg (175 lb 7.8 oz) 02/20/22 87.5 kg (193 lb) 10/11/21 91.1 kg (200 lb 12.8 oz) Intake/Output Summary (Last 24 hours) at 09/11/2022 1416 Last data filed at 09/11/2022 1355 Gross per 24 hour Intake 240 ml Output 2350 ml Net -2110 ml GENERAL APPEARANCE:NAD HEENT: Eyes/ears/nose/neck grossly normal RESP: lungs cta b c good efforts, no crackles CV: RRR, nl S1/S2 ABDOMEN: Soft, NT. ND EXTREMITIES/SKIN: no rashes/lesions on observed skin; no edema NEURO: Awake, alert and conversing Data: CBC RESULTS: Recent Labs Lab 09/11/22 0730 09/10/22 0534 09/09/22 2046 WBC 9.0 13.5* 16.4* RBC 3.53* 3.96 5.12 HGB 11.6* 12.9 16.4* HCT 34.1* 37.5 49.4* PLT 60* 61* 98* Basic Metabolic Panel: Recent Labs Lab 09/11/22 1140 09/11/22 0810 09/11/22 0730 09/11/22 0305 09/11/22 0156 09/10/22 2356 09/10/22 0742 09/10/22 0534 09/09/22 2356 09/09/22 2352 09/09/22 2324 09/09/22 2226 09/09/222045 NA -- -- 146* -- -- -- -- 143 -- 140 139 -- 139 POTASSIUM -- -- 3.8 -- -- -- -- 4.8 -- 4.8 5.4* -- 6.3* CHLORIDE -- -- 107 -- -- -- -- 101 -- 95* 93* -- 84* CO2 -- -- 24 -- -- -- -- 14* -- 15* 13* -- 15* BUN -- -- 134.6* -- -- -- -- 181.4* -- 206.9* 210.8* -- 224.4* CR -- -- 3.57* -- -- -- -- 8.81* -- 10.48* 10.68* -- 12.98* GLC 171* 132* 147* 151* 169* 185* < > 119* < > 123* 176* < > 137* DANA -- -- 6.9* -- -- -- -- 7.6* -- 8.2* 8.4* -- 8.8 < > = values in this interval not displayed. INR Recent Labs Lab 09/09/222045 INR 1.03 Attestation: I have reviewed today's relevant vital signs, notes, medications, labs and imaging. Jayant Dickerson MD [facility] - Nephrology Office phone :[phone] Pager: [phone] * Katarzyna Hurtado, - 09/10/2022 8:47 AM CDT HOSPITALIST FOLLOW UP NOTE: The patient was seen and examined, I agree with the history, exam, assessment and plan of Dr Rob. 61-year-old female with a history of chronic pain on Suboxone, diabetes, and ICH found on her floorafter 3 days of weakness and lethargy and was brought to the hospital yesterday. She was found to be hypotensive and in acute renal failure. She was started on IV fluids. Creatinine is trending down.Nephrology is consulted. There is also evidence of UTI so she has been started on ceftriaxone, vancomycin will be discontinued today. CT shows no obstruction. She appears to be significantly improvedso is suitable to transfer to the medical floor today. I updated her daughter by phone. Katarzyna Hurtado DO [facility] Hospitalist [place] [address] Pager: 09/10/2022 * Lucy Oglesby MD - 09/10/2022 1:03 AM CDT Received signout from Dr. Rob: Alyssa Palencia is a complex 61-year-old female with medical history significant for substance abuse,cavernoma with intracranial hemorrhage in 01/07, GERD, left BKA who presented on 09/09/2022 with weakness after her roommate found her down. She has had nausea, vomiting, and abdominal pain for several days. On arrival she was hypotensive with SBP's in the 70s, hypoxic with SPO2 of 74% with a numberof lab derangements noted including a creatinine of 13, BUN of 224, potassium 6.3, bicarb of 15, anion gap of 40, ketones of 2.5, lactic acid of 1.7, leukocytosis of 16.4, hemoglobin of 16.4, platelets 98. Urine tox was positive for amphetamines. UA was positive for LE, blood, bacteria and WBCs. Blo od and urine cultures are currently pending. CT head and cervical spine show stable cavernoma and no fracture but foraminal narrowing at C3-C4 and fusion from C4-C7. Chest x-ray shows clear lungs. CT abdomen is currently pending. She was given 4 L of crystalloid and received vancomycin and ceftriaxone. Given high anion gap ethylene glycol, volatile alcohols were sent. Salicylate level is negative. Recommendations as follows: - repeat BMP showing K 4.8; consider additional IVF vs. lokelma vs. if recurrent hyperkalemia - follow-up urine/blood cultures - follow-up volatile alcohol screen - follow-up CT abdomen - continue ceftriaxone/vanco - check MRSA nasal swab (last known MRSA 2018) Lucy Oglesby MD Pulmonary, Allergy, Critical Care, and Sleep Medicine [facility] Pager: [phone] documented in this encounter H&P Notes * Miguel Angel Rob MD - 09/10/2022 12:58 AM CDT [facility] History and Physical - Hospitalist Service Date of Admission: 09/09/2022 Assessment & Plan Alyssa Palencia is a 61 year old female admitted on 09/09/2022 with suspected sepsis due to UTI, acute renal failure with hyperkalemia, and elevated anion gap metabolic acidosis. 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 She presented to the emergency department for evaluation of weakness. Her roommate found her on the floor unable to get up. She had been down for 6 hours. She reported feeling weak for 3 days with decreased oral intake and frequent nausea, vomiting, and abdominal discomfort. She had some chills. She denied cough, chest pain, fevers, diarrhea, and dysuria. She denied ingestion of atypical alcohol such as methanol or ethylene glycol. Emergency department evaluation showed hypotension with blood pressure in the 70s to 80s over 30s to 60s, initially. Initial oxygen saturations were 74% but these improved quickly with addition of supplemental oxygen. Laboratory evaluation showed BUN 224.4, creatinine 12.98, potassium 6.3, bicarb 15, sodium 139, chloride 84, anion gap 40, CK3 63, ketones 2.5, lactic acid 1.7, TSH 1.64, abnormal venous blood gas (pH 7.19, PCO2 41, P O2 42, and bicarb 16), white blood cell 16.4, hemoglobin 16.4, platelets 98, abnormal urine analysis (greater than 182 white blood cells, large leukocyte esterase, many bacteria, and white blood cell clumps), and urine toxicologyscreen positive for amphetamines. She was given 1 g of Rocephin, IV vancomycin, 3 L of IV fluid. Blo od pressure improved. She was given hyperkalemia protocol. Repeat labs showed improvement of potassium and renal function. I was asked to admit Alyssa to the ICU for further cares. Problem list: Sepsis, most likely due to urinary tract infection History of MRSA infection -Give a second gram of Rocephin and continue 2 g every 24 hours -IV vancomycin per pharmacy -Follow urine and blood cultures -CT of abdomen and pelvis without contrast to evaluate for renal stone and hydronephrosis Acute renal failure, severe Hyperkalemia, severe, improved High anion gap metabolic acidosis (HAGMA) Starvation ketosis -I suspect acute renal failure is due to severe volume depletion from decreased oral intake and vomiting -Doubt rhabdomyolysis with normal CK -Kidney function and potassium seem to be improving with aggressive IV fluid -D5 normal saline at 125 mL/h -A.m. basic metabolic panel -Volatile screen, ethylene glycol, and salicylate levels are pending to complete HAGMA work-up. Patient denies unusual ingestion. Anion gap is improved with IV fluid. I suspect HAGMA is due to ketosis and renal failure. Hypoxia, improved Hypotension, improved with IV fluids -Likely due to sepsis. 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 Review once medications reconciled. Will need to holdpotential nephrotoxins Chronic pain syndrome managed with opiates -I believe she is on Suboxone. 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 Indication: ICU Code Status: Full Code Clinically Significant Risk Factors Present on Admission # Hyperkalemia: Highest K = 6.3 mmol/L in last 2 days, will monitor as appropriate # Hypocalcemia: Lowest Ca = 8.2 mg/dL in last 2 days, will monitor and replace as appropriate # Anion Gap Metabolic Acidosis: Highest Anion Gap = 40 mmol/L in last 2 days, will monitor and treat as appropriate # Thrombocytopenia: Lowest platelets = 98 in last 2 days, will monitor for bleeding # Hypertension: Noted on problem list Disposition Plan Expected Discharge Date: 09/12/2022 Miguel Angel Rob MD Hospitalist Service [facility] Securely message with Bolt (Zapier info) Text page via [facility] Paging/Directory Chief Complaint Weak, nausea, vomiting History is obtained from the patient, Dr. Truong, and the medical record History of Present Illness Alyssa Palencia is a 61 year old female admitted on 09/09/2022 with suspected sepsis due to UTI, acute renal failure with hyperkalemia, and elevated anion gap metabolic acidosis. 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 She presented to the emergency department for evaluation of weakness. Her roommate found her on the floor unable to get up. She had been down for 6 hours. She reported feeling weak for 3 days with decreased oral intake and frequent nausea, vomiting, and abdominal discomfort. She had some chills. She denied cough, chest pain, fevers, diarrhea, and dysuria. She denied ingestion of atypical alcohol such as methanol or ethylene glycol. Emergency department evaluation showed hypotension with blood pressure in the 70s to 80s over 30s to 60s, initially. Initial oxygen saturations were 74% but these improved quickly with addition of supplemental oxygen. Laboratory evaluation showed BUN 224.4, creatinine 12.98, potassium 6.3, bicarb 15, sodium 139, chloride 84, anion gap 40, CK3 63, ketones 2.5, lactic acid 1.7, TSH 1.64, abnormal venous blood gas (pH 7.19, PCO2 41, P O2 42, and bicarb 16), white blood cell 16.4, hemoglobin 16.4, platelets 98, abnormal urine analysis (greater than 182 white blood cells, large leukocyte esterase, many bacteria, and white blood cell clumps), and urine toxicologyscreen positive for amphetamines. She was given 1 g of Rocephin, IV vancomycin, 3 L of IV fluid. Blo od pressure improved. She was given hyperkalemia protocol. Repeat labs showed improvement of potassium and renal function. I was asked to admit Alyssa to the ICU for further cares. Past Medical History Past Medical History: Diagnosis Date ??? Arthritis gemeralized ??? Chronic infection mrsa ??? Chronic pain ??? Depression ??? Gastroesophageal reflux disease ??? Hyperlipidemia ??? Other chronic pain generalized ??? Peripheral neuropathy ??? Tobacco abuse Past Surgical History Past Surgical History: Procedure Laterality Date ??? AMPUTATE FOOT Right 02/27/2019 Procedure: 1. Partial right fifth ray amputation. 2. right third toe amputation at the metatarsophalangeal joint. 3. Right fourth toe amputation at the metatarsophalangeal joint.; Surgeon: Altagracia Alexander DPM, Podiatry/Foot and Ankle Surgery; Location: [facility] OR ??? AMPUTATE LEG BELOW KNEE Left 04/06/2017 Procedure: AMPUTATE LEG BELOW KNEE; LEFT GUILLOTINE AMPUTATION BELOW KNEE; Surgeon: Serge Chilel MD; Location: [facility] OR ??? AMPUTATE LEG BELOW KNEE Left 04/14/2017 Procedure: AMPUTATE LEG BELOW KNEE; CLOSURE OF AMPUTATION OF BELOW KNEE AMPUTATION; Surgeon: Librado Aguilera MD; Location: [facility] OR ??? AMPUTATE TOE(S) Left 10/12/2016 Procedure: AMPUTATE TOE(S); Left partial fifth ray amputation wtih debridment of wounds; Surgeon: Can Montenegro DPM; Location: [facility] OR ??? AMPUTATE TOE(S) Right 10/11/2018 Procedure: Right great toe amputation at metatarsophalangeal joint.; Surgeon: Altagracia Alexander DPM, Podiatry/Foot and Ankle Surgery; Location: [facility] OR ??? ARTHROSCOPY SHOULDER DEBRIDEMENT Left 04/03/2017 Procedure: ARTHROSCOPY SHOULDER DEBRIDEMENT; LEFT SHOULDER ARTHROSCOPIC INCISION AND DRAINAGE; Surgeon: Chauncey Mcgee MD; Location: [facility] OR ??? BIOPSY BONE FOOT Left 10/08/2016 Procedure: BIOPSY BONE FOOT;; Surgeon: Can Montenegro DPM; Location: [facility] OR ??? IRRIGATION AND DEBRIDEMENT FOOT, COMBINED Left 09/01/2016 Procedure: COMBINED IRRIGATION AND DEBRIDEMENT FOOT; Debridement down to and including deep fascia including the plantar musculature, less than 20 cm2, left foot; Surgeon: Edu Crawford DPM; Location: [facility] OR ??? IRRIGATION AND DEBRIDEMENT FOOT, COMBINED Left 10/08/2016 Procedure: COMBINED IRRIGATION AND DEBRIDEMENT FOOT; Irrigation and debridement, left foot; bone biopsy, left foot; Surgeon: Can Montenegro DPM; Location: [facility] OR ??? IRRIGATION AND DEBRIDEMENT FOOT, COMBINED Left 10/14/2016 Procedure: COMBINED IRRIGATION AND DEBRIDEMENT FOOT; Revision irrigation and debridement, left foot, 10 x 6 cm, down to and including deep fascia/muscle belly; Surgeon: Edu Crawford DPM; Location: [facility] OR ??? IRRIGATION AND DEBRIDEMENT FOOT, COMBINED Left 11/05/2016 Procedure: COMBINED IRRIGATION AND DEBRIDEMENT FOOT; Irrigation and debridement, left foot, with debridement down to and including deep fascia, 4 x 6.5 cm; Surgeon: Edu Crawford DPM; Location: [facility] OR ??? ORTHOPEDIC SURGERY 1992 achillies rupture repair ??? ORTHOPEDIC SURGERY 1994 neck ??? ORTHOPEDIC SURGERY 2008 spinal Prior to Admission Medications Prior to Admission Medications Prescriptions Last Dose Informant Patient Reported? Taking? Baclofen (LIORESAL) 5 MG tablet No No Sig: Take 1 tablet (5 mg) by mouth 2 times daily PARoxetine (PAXIL) 30 MG tablet No No Sig: Take 2 tablets (60 mg) by mouth daily SUBOXONE 4-1 MG per film Yes No amLODIPine (NORVASC) 5 MG tablet No No Sig: Take 1 tablet (5 mg) by mouth daily diclofenac (VOLTAREN) 1 % topical gel Yes No lisinopril (ZESTRIL) 20 MG tablet No No Sig: Take 1 tablet (20 mg) by mouth daily pantoprazole (PROTONIX) 40 MG EC tablet No No Sig: Take 1 tablet (40 mg) by mouth daily pregabalin (LYRICA) 150 MG capsule No No Sig: Take 1 capsule (150 mg) by mouth 2 times daily for 30 days rosuvastatin (CRESTOR) 5 MG tablet No No Sig: Take 1 tablet (5 mg) by mouth daily Facility-Administered Medications: None Review of Systems The 10 point Review of Systems is negative other than noted in the HPI or here. Social History I have reviewed this patient's social history and updated it with pertinent information if needed. Social History Tobacco Use ??? Smoking status: Every Day Packs/day: 1.00 Types: Cigarettes ??? Smokeless tobacco: Never Substance Use Topics ??? Alcohol use: No ??? Drug use: Yes Types: Marijuana Comment: daily Family History I have reviewed this patient's family history and updated it with pertinent information if needed. Family History Problem Relation Age of Onset ??? Cancer Mother ??? Breast Cancer Mother 60 ??? Pancreatic Cancer Mother ??? Cancer Father ??? Cancer Sister ??? Cancer Sister ??? Breast Cancer Sister Allergies Allergies Allergen Reactions ??? Acetaminophen Other reaction(s): Gastric Reflux ??? Buspirone Unknown dizzy ??? Celecoxib Body gets stiff ??? Gabapentin Body stiffness ??? Ibuprofen Unknown Stomach upset. She reported that she will take if needs something. ??? Naproxen Body stiffness Upsets stomach ??? Nsaids Other (See Comments) bruises ??? Prednisone Other (See Comments) Sores in her mouth and doesn't like what it does to her ??? Sertraline Cramping, flatulence ??? Atorvastatin Rash Physical Exam Vital Signs: Temp: 97.8 ??F (36.6 ??C) BP: 116/77 Pulse: 82 Resp: 20 SpO2: 98 % Weight: 190 lbs 0 oz GENERAL: Pleasant and cooperative. No acute distress. Disheveled EYES: Pupils equal and round. No scleral erythema or icterus. ENT: External ears are normal without deformity. Posterior oropharynx is without erythem, swelling,or exudate. NECK: Supple. No masses or swelling. No tenderness. Thyroid is normal without mass or tenderness. CHEST: Clear to auscultation. Normal breath sounds. No retractions. CV: Regular rate and rhythm. No JVD. Pulses normal. ABDOMEN: Bowel sounds present. No tenderness. No masses or hernia. EXTREMETIES: No clubbing, cyanosis, or ischemia. LBKA SKIN: Warm and dry to touch. No wounds or rashes. NEUROLOGIC: Strength and sensation are normal. Deep tendon reflexes are normal. Cranial nerves are normal. Medical Decision Making 90 MINUTES SPENT BY ME on the date of service doing chart review, history, exam, documentation & further activities per the note. Data I have personally reviewed the following data over the past 24 hrs: 16.4 (H) \ 16.4 (H) / 98 (L) 140 95 (L) 206.9 (H) / 126 (H) 4.8 15 (L) 10.48 (H) \ ALT: 12 AST: 19 AP: 88 TBILI: 0.7 ALB: 4.5 TOT PROTEIN: 8.8 (H) LIPASE: N/A TSH: 1.64 T4: N/A A1C: N/A Procal: N/A CRP: N/A Lactic Acid: 1.5 INR: 1.03 PTT: N/A D-dimer: N/A Fibrinogen: N/A Imaging results reviewed over the past 24 hrs: Recent Results (from the past 24 hour(s)) XR Chest Port 1 View Narrative EXAM: XR CHEST PORT 1 VIEW LOCATION: [facility] DATE: 09/09/2022 INDICATION: sob COMPARISON: None. Impression IMPRESSION: No acute cardiopulmonary findings seen to explain patient's shortness of breath clinically. Prior postoperative changes upper spine. Moderate hypertrophic changes most marked in the thoracic spine. CT Head w/o Contrast Narrative EXAM: CT HEAD W/O CONTRAST, CT CERVICAL SPINE W/O CONTRAST LOCATION: [facility] DATE: 09/09/2022 INDICATION: Generalized weakness COMPARISON: 09/18/2021 TECHNIQUE: 1) Routine CT Head without IV contrast. Multiplanar reformats. Dose reduction techniques were used. 2) Routine CT Cervical Spine without IV contrast. Multiplanar reformats. Dose reduction techniques were used. FINDINGS: HEAD CT: INTRACRANIAL CONTENTS: Lobulated 24 x 16 x 16 mm (AP by TR by CC) hyperdense focus along the posterior right cingulate gyrus. This is consistent with the patient's history of cavernoma. This overall appears less conspicuous than on 10/05/2021, where there was superimposed hemorrhage. Small volume interval hemorrhage is possible. No intraventricular hemorrhage. Minimal localized edema or gliosis. No CT evidence of acute infarct. Mild presumed chronic small vessel ischemic changes. Mild generalized volume loss. No hydrocephalus. VISUALIZED ORBITS/SINUSES/MASTOIDS: No intraorbital abnormality. No paranasal sinus mucosal disease. No middle ear or mastoid effusion. BONES/SOFT TISSUES: No acute abnormality. CERVICAL SPINE CT: VERTEBRA: Solid fusion from C4 through C7. Mild grade 1 degenerative anterolisthesis of C3 and C7. No fracture or posttraumatic subluxation. CANAL/FORAMINA: No high-grade central canal stenosis. Relatively severe bilateral neural foraminal narrowing at C3-C4. PARASPINAL: No extraspinal abnormality. Visualized lung amor are clear. Impression IMPRESSION: HEAD CT: 1. Lobulated 24 x 16 x 16 mm (AP x TR x CC) hyperdense focus along the posterior right cingulate gyrus. This is consistent with the patient's history of cavernoma. This overall appears less conspicuous than on 09/18/2021, where there was superimposed hemorrhage. 2. Otherwise unremarkable. CERVICAL SPINE CT: 1. No CT evidence for acute fracture or post traumatic subluxation. 2. Solid fusion from C4 through C7. 3. Relatively severe bilateral neural foraminal narrowing at C3-C4. Exam discussed with Dr. Truong at 12:[address] Cervical Spine w/o Contrast Narrative EXAM: CT HEAD W/O CONTRAST, CT CERVICAL SPINE W/O CONTRAST LOCATION: [facility] DATE: 09/09/2022 INDICATION: Generalized weakness COMPARISON: 09/18/2021 TECHNIQUE: 1) Routine CT Head without IV contrast. Multiplanar reformats. Dose reduction techniques were used. 2) Routine CT Cervical Spine without IV contrast. Multiplanar reformats. Dose reduction techniques were used. FINDINGS: HEAD CT: INTRACRANIAL CONTENTS: Lobulated 24 x 16 x 16 mm (AP by TR by CC) hyperdense focus along the posterior right cingulate gyrus. This is consistent with the patient's history of cavernoma. This overall appears less conspicuous than on 10/05/2021, where there was superimposed hemorrhage. Small volume interval hemorrhage is possible. No intraventricular hemorrhage. Minimal localized edema or gliosis. No CT evidence of acute infarct. Mild presumed chronic small vessel ischemic changes. Mild generalized volume loss. No hydrocephalus. VISUALIZED ORBITS/SINUSES/MASTOIDS: No intraorbital abnormality. No paranasal sinus mucosal disease. No middle ear or mastoid effusion. BONES/SOFT TISSUES: No acute abnormality. CERVICAL SPINE CT: VERTEBRA: Solid fusion from C4 through C7. Mild grade 1 degenerative anterolisthesis of C3 and C7. No fracture or posttraumatic subluxation. CANAL/FORAMINA: No high-grade central canal stenosis. Relatively severe bilateral neural foraminal narrowing at C3-C4. PARASPINAL: No extraspinal abnormality. Visualized lung amor are clear. Impression IMPRESSION: HEAD CT: 1. Lobulated 24 x 16 x 16 mm (AP x TR x CC) hyperdense focus along the posterior right cingulate gyrus. This is consistent with the patient's history of cavernoma. This overall appears less conspicuous than on 09/18/2021, where there was superimposed hemorrhage. 2. Otherwise unremarkable. CERVICAL SPINE CT: 1. No CT evidence for acute fracture or post traumatic subluxation. 2. Solid fusion from C4 through C7. 3. Relatively severe bilateral neural foraminal narrowing at C3-C4. Exam discussed with Dr. Truong at 12:15 AM Recent Labs Lab 09/09/22 2356 09/09/22 2352 09/09/22 2324 09/09/22 2226 09/09/22 2046 WBC -- -- -- -- 16.4* HGB -- -- -- -- 16.4* MCV -- -- -- -- 97 PLT -- -- -- -- 98* INR -- -- -- -- 1.03 NA -- 140 139 -- 139 POTASSIUM -- 4.8 5.4* -- 6.3* CHLORIDE -- 95* 93* -- 84* CO2 -- 15* 13* -- 15* BUN -- 206.9* 210.8* -- 224.4* CR -- 10.48* 10.68* -- 12.98* ANIONGAP -- 30* 33* -- 40* DANA -- 8.2* 8.4* -- 8.8 GLC 126* 123* 176* < > 137* ALBUMIN -- -- -- -- 4.5 PROTTOTAL -- -- -- -- 8.8* BILITOTAL -- -- -- -- 0.7 ALKPHOS -- -- -- -- 88 ALT -- -- -- -- 12 AST -- -- -- -- 19 < > = values in this interval not displayed. documented in this encounter Consult Notes * Arpit Trejo RD - 09/16/2022 6:16 PM CDTAssociated Order(s): NUTRITION SERVICES ADULT IP CONSULT CLINICAL NUTRITION SERVICES - REASSESSMENT NOTE Nutrition Prescription RECOMMENDATIONS FOR MDs/PROVIDERS TO ORDER: LBM 09/09, consider initiating bowel regimen Malnutrition Status: Patient does not meet criteria for malnutrition Recommendations already ordered by Registered Dietitian (RD): 4oz Home Glucerna TID 100mg thiamine as pt is at risk for refeeding syndrome Phos and Magnesium labs as pt is at risk for refeeding syndrome Future/Additional Recommendations: Offered Gelatein and pt declined Increase Glucerna to full size servings pending refeeding labs and PO intake EVALUATION OF THE PROGRESS TOWARD GOALS Diet: Regular Nutrition Support: none Intake: Pt eating 100% of meals per nursing records and receiving on average 1607kcals and 71g protein daily NEW FINDINGS Pt stated she has been eating < 50% usual intake dt her terrible appetite since admission. Pt stated her appetite was fine PATIENT RESOURCE SPECIALIST. NKFA. Pt has not noticed a weight change and is not sure her UBW. ANTHROPOMETRICS Height: 172.2 cm (5' 7.795) Most Recent Weight: 78.5 kg (173 lb 1.6 oz) IBW: 63.4 kg BMI: Overweight BMI 25-29.9 Weight History: Wt Readings from Last 30 Encounters: 09/16/22 78.5 kg (173 lb 1.6 oz) 02/20/22 87.5 kg (193 lb) 10.3% wt loss in 7 months 10/11/21 91.1 kg (200 lb 12.8 oz) 09/22/21 85.7 kg (189 lb) 8.4% wt loss in 1 year 12/04/20 86.6 kg (191 lb) 08/23/20 88 kg (194 lb) 05/02/19 81.6 kg (180 lb) 04/25/19 81.6 kg (180 lb) 04/18/19 81.6 kg (180 lb) 04/04/19 81.6 kg (180 lb) 03/28/19 82.6 kg (182 lb) 03/14/19 82.6 kg (182 lb) 03/07/19 83.9 kg (185 lb) 02/27/19 84 kg (185 lb 1.6 oz) 02/17/19 88 kg (194 lb) 02/11/19 86.2 kg (190 lb) 01/22/19 86.2 kg (190 lb) 10/30/18 86.2 kg (190 lb) 10/11/18 86.2 kg (190 lb) 10/01/18 86.2 kg (190 lb) 09/24/18 86.2 kg (190 lb) 06/21/18 90.7 kg (200 lb) 07/27/17 98.9 kg (218 lb) 04/28/17 89.4 kg (197 lb 1.5 oz) 03/16/17 104.8 kg (231 lb) 02/21/17 104.9 kg (231 lb 4.8 oz) 02/16/17 91.2 kg (201 lb) 12/29/16 91.2 kg (201 lb) 12/08/16 91.2 kg (201 lb) 11/17/16 91.6 kg (202 lb) PHYSICAL FINDINGS See malnutrition section below. Dry skin Abrasion/excoriation abdominal fold Poor skin turgor GI CONCERNS Gas and LBM 09/09/22 LABS Reviewed: Na 146, Cr 0.97, Mg 1.2, Phos 2.0, folate 2.6, platelet count 104, MCV 102 MEDICATIONS Reviewed: folvite, mag-ox, protonix Dosing Weight: 78.5 kg and 67.2kg ABW ASSESSED NUTRITION NEEDS Estimated Energy Needs: 1693 kcals/day ([place] [employer] Jeor) Justification: Maintenance Estimated Protein Needs: 101 grams protein/day (1.5 grams of pro/kg) Justification: Maintenance Estimated Fluid Needs: 2015 mL/day (30 mL/kg) Justification: Maintenance MALNUTRITION: % Weight Loss: Weight loss does not meet criteria for malnutrition as it is not significant % Intake: Decreased intake does not meet criteria for malnutrition as pt has exceeded estimated energy needs within last few days Subcutaneous Fat Loss: None observed Muscle Loss: Temporal region moderate depletion, Clavicle bone region moderate to severe depletion,Dorsal hand region mild to moderate depletion, Patellar region mild depletion and Posterior calf region mild depletion Fluid Retention: None noted Malnutrition Diagnosis: Patient does not meet two of the above criteria necessary for diagnosing malnutrition Previous Goals none Evaluation: Unable to evaluate Previous Nutrition Diagnosis none Evaluation: Declining CURRENT NUTRITION DIAGNOSIS Increased nutrient needs related to Sepsis and UTI as evidenced by meeting 95% estimated energy needs and 70% estimated protein needs Altered nutrition related lab values related to starvation ketosis and as evidenced by Mg 1.2, Phos2.0 INTERVENTIONS Implementation Medical food supplement therapy Multi-trace element supplement therapy Multivitamin/mineral supplement therapy Goals Patient to consume 75-100% of nutritionally adequate meals three times per day, or the equivalent with supplements/snacks. Total avg nutritional intake to meet a minimum of 1693 kcal/kg and 101 g PRO/kg daily (per dosing wt 78.5 kg and 67.2 kg). Monitoring/Evaluation Progress toward goals will be monitored and evaluated per protocol. Supplement tolerance, PO intake, wt, labs * Dari Rios RD - 09/15/2022 12:26 PM CDT BRIEF NUTRITION ASSESSMENT REASON FOR ASSESSMENT: Alyssa Palencia is a 61 year old female seen by Registered Dietitian for LOS. NUTRITION HISTORY: - PMH: UTI, substance abuse, chronic pain, L BKA, DMII, lumbar spine stenosis, cavernoma w/ cranialhemorrhage. - Admit 04/20: Weakness, sepsis, UTI, NEAL. - Information obtained from chart. - NKFA. CURRENT DIET AND INTAKE: Diet: Regular 75-100% intakes since admission based on flowsheet review and is consistently ordering/receiving meals per meal system review. ANTHROPOMETRICS: Height: 5' 7.795 Weight: 181 lbs 10.54 oz Body mass index is 27.79 kg/m??. Weight Status: Overweight BMI 25-29.9 Weight History: Wt Readings from Last 10 Encounters: 09/13/22 82.4 kg (181 lb 10.5 oz) 02/20/22 87.5 kg (193 lb) 10/11/21 91.1 kg (200 lb 12.8 oz) 09/22/21 85.7 kg (189 lb) 12/04/20 86.6 kg (191 lb) 08/23/20 88 kg (194 lb) 05/02/19 81.6 kg (180 lb) 04/25/19 81.6 kg (180 lb) 04/18/19 81.6 kg (180 lb) 04/04/19 81.6 kg (180 lb) - Wt trends have varied greatly during admit, unclear true trends (173-190#). Unclear to me when patient had her BKA (would lead to wt loss) and noted hemorrhage was in 12/2021 (potential for wt lossat that time). - No current documentation of edema. LABS: Labs noted MALNUTRITION: Patient does not meet 2 malnutrition criteria. NUTRITION INTERVENTION: Nutrition Diagnosis: No nutrition diagnosis at this time. Implementation: Nutrition Education: Per provider order, if indicated. FOLLOW UP/MONITORING: Will re-evaluate in 7 - 10 days, or sooner, if formally consulted. Dari Rios RDN, LD Clinical Dietitian 3rd floor/ICU: [phone] All other floors: [phone] Weekend/holiday: [phone] Office: [phone] * Lucia Sheppard RN - 09/12/2022 2:52 PM CDTAssociated Order(s): CARE MANAGEMENT / SOCIAL WORK IP CONSULT Care Management Initial Consult General Information Assessment completed with: Patient, Type of CM/SW Visit: Initial Assessment Primary Care Provider verified and updated as needed: Yes Readmission within the last 30 days: no previous admission in last 30 days Reason for Consult: discharge planning Advance Care Planning: Communication Assessment Patient's communication style: spoken language (Cambodian or Bilingual) Hearing Difficulty or Deaf: no Wear Glasses or Blind: no Cognitive Cognitive/Neuro/Behavioral: .WDL except Level of Consciousness: alert Arousal Level: opens eyes spontaneously Orientation: disoriented to, place, time Mood/Behavior: calm, cooperative Best Language: 0 - No aphasia Speech: slow Living Environment: People in home: other (see comments) (roommates) Current living Arrangements: house Able to return to prior arrangements: yes Family/Social Support: Care provided by: self Provides care for: no one Marital Status: Single Description of Support System: Supportive Support Assessment: Adequate family and caregiver support Current Resources: Patient receiving home care services: No Community Resources: None Equipment currently used at home: wheelchair, manual, walker, rolling, walker, lana, raised toilet seat, shower chair, prosthesis Supplies currently used at home: None Does the patient's insurance plan have a 3 day qualifying hospital stay waiver? No Lifestyle & Psychosocial Needs: Social Determinants of Health Tobacco Use: High Risk (02/20/2022) Patient History ??? Smoking Tobacco Use: Every Day ??? Smokeless Tobacco Use: Never ??? Passive Exposure: Not on file Alcohol Use: Not At Risk (02/20/2022) AUDIT-C ??? Frequency of Alcohol Consumption: Never ??? Average Number of Drinks: Patient does not drink ??? Frequency of Binge Drinking: Never Financial Resource Strain: High Risk (02/20/2022) Overall Financial Resource Strain (CARDIA) ??? Difficulty of Paying Living Expenses: Hard Food Insecurity: Food Insecurity Present (02/20/2022) Hunger Vital Sign ??? Worried About Running Out of Food in the Last Year: Often true ??? Ran Out of Food in the Last Year: Sometimes true Transportation Needs: Unmet Transportation Needs (02/20/2022) PRAPARE - Transportation ??? Lack of Transportation (Medical): Yes ??? Lack of Transportation (Non-Medical): Yes Physical Activity: Inactive (02/20/2022) Exercise Vital Sign ??? Days of Exercise per Week: 0 days ??? Minutes of Exercise per Session: 0 min Stress: Stress Concern Present (02/20/2022) [employer] - Occupational Stress Questionnaire ??? Feeling of Stress : To some extent Social Connections: Unknown (02/20/2022) Social Connection and Isolation Panel [NHANES] ??? Frequency of Communication with Friends and Family: Twice a week ??? Frequency of Social Gatherings with Friends and Family: Never ??? Attends Shinto Services: Patient refused ??? Active Member of Clubs or Organizations: No ??? Attends Club or Organization Meetings: Not on file ??? Marital Status: Intimate Partner Violence: Not on file Depression: Not at risk (02/20/2022) PHQ-2 ??? PHQ-2 Score: 1 Housing Stability: High Risk (02/20/2022) Housing Stability Vital Sign ??? Unable to Pay for Housing in the Last Year: Yes ??? Number of Places Lived in the Last Year: 1 ??? Unstable Housing in the Last Year: No Mental Health Status: Mental Health Status: No Current Concerns Additional Information: CM consulted for discharge planning/disposition. Patient admitted for acute renal failure, acute cystitis, hematuria. Met with patient at bedside. She states she lives in her own home with 2 roommates. States there are stairs to get inside but once she is in she is in. Has walker, wheelchair, shower chair at home. Daughter lives next door. She states family or friend will drive her home. Discussed PT recommendation of TCU placement due to patient being well below baseline, requiring assist of 2. Patient states she has not ambulated yet. Patient adamantly states she will not go to a TCU. States she has been to one before and will never go again also states she does not trust her roommates enough for her to be gone too long. Discussed home care as an option and that at the very least we could try to get home care involved for therapy. She agreed only if her insurance covers it otherwise she states she will just go home and do it herself. Home care referrals sent. Will continue to follow. Lucia Sheppard RN Seo Coordinator [facility] * Yudith Dillard MD - 09/10/2022 8:11 AM CDTAssociated Order(s): NEPHROLOGY IP CONSULT Nephrology Initial Consult September 10, 2022 Alyssa Palencia Date of : 1960 Date of Admission:09/09/2022 Primary care provider: Enrico Felton Requesting physician: Miguel Angel Rob MD ASSESSMENT AND RECOMMENDATIONS: 1 septic shock-presumed urosepsis. Cultures pending 2 acute renal failure-severe. Normal baseline creatinine as of May 2022. Creatinine peak of 13. Presumed prerenal NEAL with possible progression to ATN. Amphetamine use could predispose to ischemic kidney injury as well. She was also on lisinopril PATIENT RESOURCE SPECIALIST High risk for rhabdomyolysis with prolonged downtime as well as amphetamine use but CK was only in 300s. Now improving with IV fluid. 3 severe metabolic derangements-hyperkalemia, hypomagnesemia, severe hypophosphatemia -With severe renal failure, mild rhabdo 4 high anion gap metabolic acidosis- -no history of toxic ingestion. Volatile screening/excellent glycol -pending. Salicylates negative. -Slowly improving 5 amphetamine use Recommendations- -continue IV fluid. Switch to D5 half-normal saline with 75 mEq of bicarb at 125 cc an hour -Dose vancomycin per level. Minimum length of use is able -Strict I's/O, daily renal function panel -PhosLo 2 tablets 3 times daily with meals -Recheck CK -Hold lisinopril, Lyrica No urgent indication for dialysis but patient remains critically ill with advanced azotemia. We will follow closely for need for dialysis. Thank you for the consult. Will continue to follow along with you . Recommendations were communicated to primary team in person Yudith Dillard MD [facility] - Nephrology [phone] REASON FOR CONSULT: HISTORY OF PRESENT ILLNESS: Alyssa Palencia is a 61 year old with pertinent medical history of hypertension, type 2 diabetes mellitus, left below-knee amputation secondary to infection and normal kidney function at baseline as of May 2022 She was found down in the room (estimated for around 6 hours) by her roommate. Preceded by 3 to 4 days of frequent nausea and vomiting, abdominal discomfort, generalized weakness. No reported historyof toxic ingestion. Found to be in shock with blood pressure in 70s, O2 sats in 70s. Labs showed severe metabolic abnormalities with creatinine of 13, BUN of 224, potassium 6.3, , anion gap of 40, ketones 2.5, CK2 160, hemoglobin 16.4 with a platelet of 98, leukocytosis Urinalysis with dense pyuria, many bacteria, large leukocyte esterase and WBC clumps Tox screen positive for amphetamine Received 3 L of IV fluid with improvement in blood pressure. Managed overnight in ICU. Creatinine has improved to 8.8. BUN of 180. Anion gap decreasing. Phosphorus of 11, magnesium of 1.6, calcium 7.6, CRP 147, ketones 2.5 FENa-5.7% CT abdomen-no urinary tract calculi or obstruction. On eval, she is laying flat. No shortness of breath. Anxious. History is slightly incoherent but she is alert and oriented. Making urine. Describes poor oral intake, vague abdominal pain prior to presentation. PAST MEDICAL HISTORY: Reviewed with patient on 09/10/2022 and is as listed in HPI. MEDICATIONS: PATIENT RESOURCE SPECIALIST Meds Prior to Admission medications Medication Sig Last Dose Taking? Auth Provider Custodial End Date amLODIPine (NORVASC) 5 MG tablet Take 1 tablet (5 mg) by mouth daily Enrico Felton, DO Yes Baclofen (LIORESAL) 5 MG tablet Take 1 tablet (5 mg) by mouth 2 times daily Enrico Felton, DO diclofenac (VOLTAREN) 1 % topical gel Reported, Patient lisinopril (ZESTRIL) 20 MG tablet Take 1 tablet (20 mg) by mouth daily Enrico Felton, DO Yes pantoprazole (PROTONIX) 40 MG EC tablet Take 1 tablet (40 mg) by mouth daily Enrico Felton, DO PARoxetine (PAXIL) 30 MG tablet Take 2 tablets (60 mg) by mouth daily Enrico Felton, DO Yes pregabalin (LYRICA) 150 MG capsule Take 1 capsule (150 mg) by mouth 2 times daily for 30 days Dylan Obrien MD Yes 11/24/21 rosuvastatin (CRESTOR) 5 MG tablet Take 1 tablet (5 mg) by mouth daily Enrico Felton, DO Yes SUBOXONE 4-1 MG per film Reported, Patient No Current Meds ??? cefTRIAXone 2 g Intravenous Q24H ??? insulin aspart 1-6 Units Subcutaneous Q4H ??? miconazole Topical BID ??? pantoprazole 40 mg Oral Daily Infusion Meds ??? dextrose 5% and 0.9% NaCl 125 mL/hr at 09/10/22 0600 ALLERGIES: Allergies Allergen Reactions ??? Acetaminophen Other reaction(s): Gastric Reflux ??? Buspirone Unknown dizzy ??? Celecoxib Body gets stiff ??? Gabapentin Body stiffness ??? Ibuprofen Unknown Stomach upset. She reported that she will take if needs something. ??? Naproxen Body stiffness Upsets stomach ??? Nsaids Other (See Comments) bruises ??? Prednisone Other (See Comments) Sores in her mouth and doesn't like what it does to her ??? Sertraline Cramping, flatulence ??? Atorvastatin Rash REVIEW OF SYSTEMS: A comprehensive of systems was negative except as noted above. SOCIAL HISTORY: Reviewed with patient on 09/10/2022 FAMILY MEDICAL HISTORY: Family History Problem Relation Age of Onset ??? Cancer Mother ??? Breast Cancer Mother 60 ??? Pancreatic Cancer Mother ??? Cancer Father ??? Cancer Sister ??? Cancer Sister ??? Breast Cancer Sister Reviewed with patient on 09/10/2022 PHYSICAL EXAM: Temp Av.9 ??F (36.6 ??C) Min: 97.8 ??F (36.6 ??C) Max: 97.9 ??F (36.6 ??C) Pulse Av.6 Min: 74 Max: 94 Resp Av.8 Min: 14 Max: 28 SpO2 Av.2 % Min: 74 % Max: 100 % BP 105/75 Pulse 76 Temp 97.9 ??F (36.6 ??C) (Temporal) Resp 17 Ht 1.722 m (5' 7.8) Wt 78.6 kg (173 lb 4.5 oz) LMP 09/10/2012 SpO2 92% BMI 26.51 kg/m?? Admit Weight: 86.2 kg (190 lb) GENERAL APPEARANCE: no distress, awake EYES: no scleral icterus, pupils equal HENT: NC/AT, mouth without ulcers or lesions Lymphatics: no cervical or supraclavicular LAD Endo: no irizarry facies, no goiter Pulmonary: lungs clear to auscultation with equal breath sounds bilaterally, no clubbing CV: regular rhythm, normal rate, no rub - JVP - - Edema- GI: soft, nontender, MS: no evidence of inflammation in joints, BKA-left leg : no arambula SKIN: no rash, warm, dry, no cyanosis NEURO: face symmetric, no asterixis LABS: CMP Recent Labs Lab 09/10/22 0742 09/10/22 0509/10/22 0405 09/10/22 0207 09/09/22235509/09/22235109/09/22232309/09/22222509/09/222045 NA -- 143 -- -- -- 140 139 -- 139 POTASSIUM -- 4.8 -- -- -- 4.8 5.4* -- 6.3* CHLORIDE -- 101 -- -- -- 95* 93* -- 84* CO2 -- 14* -- -- -- 15* 13* -- 15* ANIONGAP -- 28* -- -- -- 30* 33* -- 40* GLC 113* 119* 98 121* < > 123* 176* < > 137* BUN -- 181.4* -- -- -- 206.9* 210.8* -- 224.4* CR -- 8.81* -- -- -- 10.48* 10.68* -- 12.98* GFRESTIMATED -- 5* -- -- -- 4* 4* -- 3* DANA -- 7.6* -- -- -- 8.2* 8.4* -- 8.8 MAG -- 1.6* -- -- -- -- -- -- 1.9 PHOS -- 11.1* -- -- -- -- -- -- -- PROTTOTAL -- -- -- -- -- -- -- -- 8.8* ALBUMIN -- -- -- -- -- -- -- -- 4.5 BILITOTAL -- -- -- -- -- -- -- -- 0.7 ALKPHOS -- -- -- -- -- -- -- -- 88 AST -- -- -- -- -- -- -- -- 19 ALT -- -- -- -- -- -- -- -- 12 < > = values in this interval not displayed. CBC Recent Labs Lab 09/10/2253309/09/222045 HGB 12.9 16.4* WBC 13.5* 16.4* RBC 3.96 5.12 HCT 37.5 49.4* MCV 95 97 MCH 32.6 32.0 MCHC 34.4 33.2 RDW 15.2* 15.3* PLT 61* 98* INR Recent Labs Lab 09/09/222045 INR 1.03 ABG Recent Labs Lab 09/10/22 0055 09/09/222045 O2PER 30 6 URINE STUDIES Recent Labs Lab Test 09/09/22204602/20/22 1602 02/17/19 1425 09/24/18 1524 04/25/17 0130 08/22/16 1325 COLOR Dark Yellow* Yellow Yellow Yellow < > Yellow APPEARANCE Cloudy* Clear Clear Clear < > Clear URINEGLC Negative Negative Negative Negative < > Negative URINEBILI Small* Small* Negative Moderate* < > Negative URINEKETONE Negative Negative Negative 15* < > Negative SG 1.023 >=1.030 1.025 >1.030 < > 1.025 UBLD Large* Negative Negative Negative < > Negative URINEPH 5.0 5.5 5.5 5.5 < > 5.5 PROTEIN 70* 30* Trace* Trace* < > Negative UROBILINOGEN -- 1.0 0.2 1.0 -- 0.2 NITRITE Negative Negative Negative Negative < > Negative LEUKEST Large* Negative Negative Negative < > Negative RBCU 75* 0-2 O - 2 O - 2 < > -- WBCU >182* 0-5 0 - 5 0 - 5 < > -- < > = values in this interval not displayed. No lab results found. PTH No lab results found. IRON STUDIES Recent Labs Lab Test 04/05/17 0635 IRON 36 APR 184* IRONSAT 20 IMAGING: Personally reviewed the images and findings are as listed in HPI Yudith Dillard MD documented in this encounter ED Notes * Venessa Morillo RN - 09/10/2022 12:11 AM CDT Bed: ED02 Expected date: Expected time: Means of arrival: Comments: [id number] * Germaine Wright RN - 09/09/2022 8:15 PM CDT pt comes in after being found down on floor by roomate. pt reports she fell and was to weak to get up and was on the floor for at least 6 hours. pt o2 sats for EMS were in the low 80's and pt placed on nonrebreather, pt difficult to get a oxygen sat on due to cold extremities. pt has a BTH amp on the left and partial foot amputation on the right. pt arrives with a prosthetic leg on right. pt unable to stand or walk for EMS, she was a total lift. pt was inc. of urine. EMS attempted for a PIV x2 without success. pt mouth and lips extreamly dry. hair in a hair binder and matted. * Diego Vazquez RN - 09/09/2022 7:53 PM CDT Bed: ED37 Expected date: Expected time: Means of arrival: Comments: [place] * Jez Truong MD - 09/09/2022 7:53 PM CDT History Chief Complaint: Weakness HPI Alyssa Palencia is a 61 year old female who presents with generalized weakness, which she has felt for the past three days. Today, she fell and was on the floor for 6 hours before her roommate came home and contacted EMS. She did not hit her neck or head. She reports feeling this way for three daysand has gone through something similar in the past. She reports abdominal pain, vomiting, and feeling cold in her extremities, but denies hematemesis, headache, fever, vision change, chest pain, shortness of breath, diarrhea, or extremity pain. She reports having extremity amputations due to prior Achilles surgery post-op infection on 02/27/2019. She denies alcohol or drug use or cardiac problems. She is not on O2 at home. Independent Historian: None - Patient Only Review of External Notes: 06/12 admission summary for intracerebral hemorrhage Medications: Amlodipine Baclofen Diclofenac Lisinopril Pantoprazole Paroxetine Pregabalin Rosuvastatin Suboxone Nicotine Past Medical History: Cognitive impairment MDD Chronic pain DJD Stenosis DDD Left bundle branch block Narcotic addiction Peripheral neuropathy Hyperlipidemia Health Detention Hypertension Fibromyalgia Left foot infection Cellulitis Type 2 diabetes mellitus SIRS Substance abuse Obesity Sepsis Acute respiratory failure Amputation Osteomyelitis Post-operative state Ulcer with necrosis BKA Smoker ICH Intraparenchymal hemorrhage of brain Arthritis Chronic infection Gastroesophageal reflux disease Tobacco abuse Disc displacement Epicondylitis Panic disorder Past Surgical History: Amputation x5 Irrigation and debridement x4 Achilles rupture repair Neck surgery Spinal surgery Appendectomy IN subtalar athroereisis Physical Exam Patient Vitals for the past 24 hrs: BP Temp Pulse Resp SpO2 Weight 09/10/22 0001 116/77 -- 82 -- -- -- 09/09/22 2345 107/74 -- -- -- -- -- 09/09/22 2300 107/66 -- 80 -- 98 % -- 09/09/22 2210 97/71 -- 74 -- 98 % -- 09/09/222154 119/65 -- 74 -- 100 % -- 09/09/222139 110/77 -- 74 -- 100 % -- 09/09/222134 -- -- -- -- -- 86.2 kg (190 lb) 09/09/222133 -- -- -- 20 92 % -- 09/09/22 2125 94/59 -- 75 -- 98 % -- 09/09/222109 (!) 74/34 -- 77 -- (!) 74 % -- 09/09/222018 (!) 88/61 -- 94 -- -- -- 09/09/222016 -- 97.8 ??F (36.6 ??C) -- -- -- -- Physical Exam GENERAL: Patient Ill appearing female mucosa very dry and cracked, appears disheveled. HEAD: Atraumatic. Neck: No rigidity CV: RRR, no murmurs rubs or gallops PULM: No retractions, rales, rhonchi, or wheezing. Diminished in bases. ABD: Soft, nontender, nondistended, no guarding DERM: No rash. Extremities are cool. EXTREMITY: Right toes amputated old. Left leg below knee amputation. Moving all extremities Emergency Department Course ECG ECG results from 09/09/22 EKG 12 lead Value Systolic Blood Pressure Diastolic Blood Pressure Ventricular Rate 89 Atrial Rate 89 IN Interval 176 QRS Duration 152 QT 418 QTc 508 P [place] 67 R AXIS 22 T [place] 139 Interpretation ECG Sinus rhythm Possible Left atrial enlargement Left bundle branch block Abnormal ECG When compared with ECG of 11-OCT-2018 15:30, Vent. rate has increased BY 43 BPM T wave amplitude has increased in Inferior leads T wave inversion less evident in Anterior leads T wave inversion now evident in Lateral leads QT has lengthened Imaging: CT Cervical Spine w/o Contrast Final Result IMPRESSION: HEAD CT: 1. Lobulated 24 x 16 x 16 mm (AP x TR x CC) hyperdense focus along the posterior right cingulate gyrus. This is consistent with the patient's history of cavernoma. This overall appears less conspicuous than on 09/18/2021, where there was superimposed hemorrhage. 2. Otherwise unremarkable. CERVICAL SPINE CT: 1. No CT evidence for acute fracture or post traumatic subluxation. 2. Solid fusion from C4 through C7. 3. Relatively severe bilateral neural foraminal narrowing at C3-C4. Exam discussed with Dr. Truong at 12:[address] Head w/o Contrast Final Result IMPRESSION: HEAD CT: 1. Lobulated 24 x 16 x 16 mm (AP x TR x CC) hyperdense focus along the posterior right cingulate gyrus. This is consistent with the patient's history of cavernoma. This overall appears less conspicuous than on 09/18/2021, where there was superimposed hemorrhage. 2. Otherwise unremarkable. CERVICAL SPINE CT: 1. No CT evidence for acute fracture or post traumatic subluxation. 2. Solid fusion from C4 through C7. 3. Relatively severe bilateral neural foraminal narrowing at C3-C4. Exam discussed with Dr. Truong at 12:15 AM XR Chest Port 1 View Final Result IMPRESSION: No acute cardiopulmonary findings seen to explain patient's shortness of breath clinically. Prior postoperative changes upper spine. Moderate hypertrophic changes most marked in the thoracic spine. Report per radiology Laboratory: Labs Ordered and Resulted from Time of ED Arrival to Time of ED Departure COMPREHENSIVE METABOLIC PANEL - Abnormal Result Value Sodium 139 Potassium 6.3 (*) Chloride 84 (*) Carbon Dioxide (CO2) 15 (*) Anion Gap 40 (*) Urea Nitrogen 224.4 (*) Creatinine 12.98 (*) Calcium 8.8 Glucose 137 (*) Alkaline Phosphatase 88 AST 19 ALT 12 Protein Total 8.8 (*) Albumin 4.5 Bilirubin Total 0.7 GFR Estimate 3 (*) CK TOTAL - Abnormal CK 363 (*) ROUTINE UA WITH MICROSCOPIC REFLEX TO CULTURE - Abnormal Color Urine Dark Yellow (*) Appearance Urine Cloudy (*) Glucose Urine Negative Bilirubin Urine Small (*) Ketones Urine Negative Specific [place] Urine 1.023 Blood Urine Large (*) pH Urine 5.0 Protein Albumin Urine 70 (*) Urobilinogen Urine Normal Nitrite Urine Negative Leukocyte Esterase Urine Large (*) Bacteria Urine Many (*) WBC Clumps Urine Present (*) RBC Urine 75 (*) WBC Urine >182 (*) Squamous Epithelials Urine 45 (*) BLOOD GAS VENOUS - Abnormal pH Venous 7.19 (*) pCO2 Venous 41 pO2 Venous 42 Bicarbonate Venous 16 (*) Base Excess/Deficit (+/-) -12.0 (*) FIO2 6 CBC WITH PLATELETS AND DIFFERENTIAL - Abnormal WBC Count 16.4 (*) RBC Count 5.12 Hemoglobin 16.4 (*) Hematocrit 49.4 (*) MCV 97 MCH 32.0 MCHC 33.2 RDW 15.3 (*) Platelet Count 98 (*) % Neutrophils 90 % Lymphocytes 6 % Monocytes 4 % Eosinophils 0 % Basophils 0 % Immature Granulocytes 0 NRBCs per 100 WBC 0 Absolute Neutrophils 14.7 (*) Absolute Lymphocytes 0.9 Absolute Monocytes 0.7 Absolute Eosinophils 0.0 Absolute Basophils 0.0 Absolute Immature Granulocytes 0.1 Absolute NRBCs 0.0 DRUG ABUSE SCREEN 1 URINE (ED) - Abnormal Amphetamines Urine Screen Positive (*) Barbituates Urine Screen Negative Benzodiazepine Urine Screen Negative Cannabinoids Urine Screen Negative Cocaine Urine Screen Negative Opiates Urine Screen Negative ISTAT GASES LACTATE VENOUS POCT - Abnormal Lactic Acid POCT 2.0 Bicarbonate Venous POCT 18 (*) O2 Sat, Venous POCT 36 (*) pCO2 Venous POCT 41 pH Venous POCT 7.24 (*) pO2 Venous POCT 25 KETONE BETA-HYDROXYBUTYRATE QUANTITATIVE, RAPID - Abnormal Ketone (Beta-Hydroxybutyrate) Quantitative 2.50 (*) GLUCOSE BY METER - Abnormal GLUCOSE BY METER POCT 104 (*) BASIC METABOLIC PANEL - Abnormal Sodium 139 Potassium 5.4 (*) Chloride 93 (*) Carbon Dioxide (CO2) 13 (*) Anion Gap 33 (*) Urea Nitrogen 210.8 (*) Creatinine 10.68 (*) Calcium 8.4 (*) Glucose 176 (*) GFR Estimate 4 (*) ISTAT GASES LACTATE VENOUS POCT - Abnormal Lactic Acid POCT 1.5 Bicarbonate Venous POCT 16 (*) O2 Sat, Venous POCT 65 (*) pCO2 Venous POCT 38 (*) pH Venous POCT 7.24 (*) pO2 Venous POCT 39 GLUCOSE BY METER - Abnormal GLUCOSE BY METER POCT 126 (*) INR - Normal INR 1.03 LACTIC ACID WHOLE BLOOD - Normal Lactic Acid 1.7 MAGNESIUM - Normal Magnesium 1.9 TSH WITH FREE T4 REFLEX - Normal TSH 1.64 SALICYLATE LEVEL - Normal Salicylate <0.3 GLUCOSE MONITOR NURSING POCT GLUCOSE MONITOR NURSING POCT VOLATILES SCREEN ETHYLENE GLYCOL BASIC METABOLIC PANEL GLUCOSE MONITOR NURSING POCT BLOOD CULTURE BLOOD CULTURE URINE CULTURE Emergency Department Course & Assessments: Interventions: Medications vancomycin (VANCOCIN) 2,000 mg in 0.9% NaCl 500 mL intermittent infusion (2,000 mg Intravenous $NewBag 09/09/222327) glucose gel 15-30 g (has no administration in time range) Or dextrose 50 % injection 25-50 mL (has no administration in time range) Or glucagon injection 1 mg (has no administration in time range) dextrose 10% BOLUS (250 mLs Intravenous $New Bag 09/09/222255) 0.9% sodium chloride BOLUS (has no administration in time range) lactated ringers BOLUS 2,000 mL (0 mLs Intravenous Stopped 09/09/222221) cefTRIAXone (ROCEPHIN) 1 g vial to attach to NS 100 mL bag for ADULTS or NS 50 mL bag for PEDS (0 gIntravenous Stopped 09/09/222221) dextrose 50 % injection 25 g (25 g Intravenous $Given 09/09/222246) insulin regular 1 unit/mL injection 8.6 Units (8.6 Units Intravenous $Given 09/09/222247) calcium gluconate 2 g in NS 100 mL intermittent infusion (2 g Intravenous $Given 09/09/222255) 0.9% sodium chloride BOLUS (1,000 mLs Intravenous $New Bag 09/09/222256) ondansetron (ZOFRAN) injection 4 mg (4 mg Intravenous $Given 09/09/222326) Assessments: 2006 I obtained the history and examined the patient as detailed above. 2134 I reassessed the patient. Independent Interpretation (X-rays, CTs, rhythm strip): I independently interpreted the X-ray and it was normal. Consultations/Discussion of Management or Tests: 2222 I spoke with the mechanical engineering intern Dr. Rob regarding admission to the ICU. 2249 I spoke with his hospitalist Dr. Rob about patient presentation. Social Determinants of Health affecting care: Substance abuse Disposition: The patient was admitted to the ICU under the care of Dr. Rob. Impression & Plan Medical Decision Making: Patient brought in by EMS for generalized weakness. Chronic conditions complicating-polysubstance abuse, intracerebral hemorrhage Differential diagnosis does considered intracranial bleed, sepsis, metabolic abnormality, among others. Initial O2 sat in 70s, placed on oxygen mask and O2 sats lisa to mid 90s. Patient declines feeling short of breath. Initial blood pressures in the 80s systolic. Bedside ultrasound showing flattened IVC. She also appears very dry on exam. Therefore ordered 2 L IV fluid. Chest x-ray without acute process. ECG with left bundle branch block which patient has history of but negative Sgarbossa's. pH 7.19. Bicarbonate 16. Leukocytosis of 16. Potassium 6.3. BUN to 24 and creatinine 12.9 which areall new. CK not significantly elevated. Lactate within normal limits. TSH within normal limits. UDS positivefor amphetamines. Urine appears grossly infected. Due to the significant elevated anion gap, ordered salicylates which were negative and ethylene glycol level however lower suspicion for this as she declines any other ingestions. Patient's blood pressure improved with IV fluids. She had multiple peripheral IVs placed. Peter given ceftriaxone to treat urine tract infection and vancomycin to broaden out for septic shock. Treat hyperkalemia with calcium gluconate as well as insulin and glucose. Repeat VBG and BMP and labs are slowly improving. Written for additional liter of fluid due to persistent flattening IVC. Consulted hospitalist for ICU admission and patient admitted. Critical Care time: was 60 minutes for this patient excluding procedures. Diagnosis: ICD-10-CM 1. Acute renal failure, unspecified acute renal failure type (H) N17.9 Discharge Medications: New Prescriptions No medications on file Scribe Disclosure: Luis Miguel Betancur, am serving as the scribe pet trainer for Chinmay Martin, the scribe trainee, at 12:25 AM 09/10/2022 to document services personally performed by Jez Truong MD based on our observations and the provider's statements to us. 09/09/2022 Jez Truong MD Foss, Kevin, MD 09/10/22 0158 Addendum 0221: I also discussed with radiology regarding her CT head. Patient has a prior history of intracerebral hemorrhage. The area of hemorrhage is improved on the CT compared to prior and thereis no mass effect. Additionally patient has no DIAZ. Jez Truong MD 09/10/22 0221 documented in this encounter Miscellaneous Notes * Plan of Care - Vi Browning RN - 09/17/2022 6:31 PM CDT Goal Outcome Evaluation: Patient discharged to home, daughter picked her up. IV out, discharge medications given to patient.Discharge instructions gone through with patient. Escorted off the unit on a wheelchair by staff. * Plan of Care - Alen Betts RN - 09/17/2022 2:01 PM CDT Pt on contact precautions for MRSA. A&O x3, disoriented to situation and intermittently confused. No IV access due to pt refusing. Ax1 with gait belt and walker, pt refuses gait belt. Tolerating regular diet although pt has poor appetite. Tolerating oral medications. PT/OT recommended TCU but patient refuses. Pt on mag protocol, mag @1.6, pt refused replacement. Pt has right blew the knee amputation, otherwise skin is intact. Plan is to discharge today, waiting for daughter to call when they can come pick pt up. Bed in lowest position and call light within reach. Blood pressure (!) 146/89, pulse 69, temperature 97.1 ??F (36.2 ??C), temperature source Temporal, resp. rate 16, height 1.722 m (5' 7.8), weight 78.5 kg (173 lb 1.6 oz), last menstrual period 09/10/2012, SpO2 97 %, not currently . * Plan of Care - Maya Medina RN - 09/17/2022 2:29 AM CDT Goal Outcome Evaluation: Plan of Care Reviewed With: patient Overall Patient Progress: improving Pt Aox2, VSS RA. Denies pain. Up with assist of 1 gaitbelt walker.voiding in the bathroom w/o difficulty prosthetic to left LLE. Pt has poor appetite. Encouraged PO and provided options for the patient. Pt was educated about concern for refeeding syndrome and importance of Bowel program. Pt states she knows when she is constipated and that its normal for her to go w/o a BM for a week. educationprovided pt continues to decline bowel medication. Agreed to have magic cup. Glucerna NA. Pt on MG protocol however pt has no IV access and refuses to place one. PO magnesium given and lab scheduled in the AM. detition following patient. No hypoglycemia s/s observed or reported. * Plan of Care - Anum Coy RN - 09/16/2022 6:30 PM CDT Goal Outcome Evaluation: Plan of Care Reviewed With: patient pt is confused at times. Disorientated to time and situation. Pt up with assist of 1 gait belt and walker. Hypertensive BP at times. HR 90's afebrile. RA. Pt has had very poor appetite. She has not had BM since 09/09/22. Pt said that is normal for her and that she has not been eating enough to have BM. Educated her about her eating and bowel program. Nutrition saw patient and is concerned about refeedingsyndrome. Magnesium is 1.2 PO replacement being given because pt refuses IV access. BS hypoactive. LS clear. Right eye is feeling a little better with ciprofloxacin drops. PT/OT recommends TCU but ptrefusing. Daughter Bobbi would like an update from the MD. Discharge TBD * Plan of Care - Arpit Trejo RD - 09/16/2022 6:16 PM CDT Goal Outcome Evaluation: Plan of Care Reviewed With: patient Overall Patient Progress: decliningOverall Patient Progress: declining Outcome Evaluation: Ordred 4oz Home Glucerna TID, 100mg thiamine as pt is at risk for refeeding syndrome, Phos and Magnesium labs as pt is at risk for refeeding syndrome * Plan of Care - Maya Medina RN - 09/15/2022 10:29 PM CDT Goal Outcome Evaluation: Plan of Care Reviewed With: patient Overall Patient Progress: improvingOverall Patient Progress: improving Pt AOX2, intermittent confusion. denies pain VSS RA. Up with assist of 1 gaitbelt and walker. Voiding in the bathroom w/o difficulty. Denies SOB and chest pain. lung sounds clear and diminished. Pt independent with putting on her prosthetic to LLE. No hypoglycemia s/s observed or reported. Pt received ordered ciprofloxacin eye drop with some relief. Pt declines TCU at discharge. Plan may be home with PT and OT services per MD note. * Plan of Care - Anum Coy RN - 09/15/2022 6:12 PM CDT Goal Outcome Evaluation: Plan of Care Reviewed With: patient [id number] RN Patient vital signs are at baseline: No, Reason: pt had fall in BR at 0800. Tachycardia and Hypertension at times today Patient able to ambulate as they were prior to admission or with assist devices provided by therapies during their stay: Yes assist of 1 GB and Walker. Pt refused GB earlier she knows GB at all timeswhen up. Pt independent with putting on her prosthetic to LLE Patient MUST void prior to discharge: Yes Patient able to tolerate oral intake: Yes denies nausea. Tolerated regular diet. BG changed to hypoglycemic protocol prn Pain has adequate pain control using Oral analgesics: Yes Does patient have an identified coach professional athletes: No, Reason: lives with roommates she said but has been confused. Has goal D/C date and time been discussed with patient: No, Reason: Possible discharge home in a few days with home PT/OT per MD Magnesium 1.2 po replacement being given. OT to assess to see if TCU is more appropriate than home at discharge. Levaquin discontinued. Right eye continues to be itchy and red. Ciprofloxacin eye gtt started. Will continue to monitor per POC * Plan of Care - Rita Jacobs OTR - 09/15/2022 10:59 AM CDT Occupational Therapy Discharge Summary Reason for therapy discharge: Patient/family request discontinuation of services. Progress towards therapy goal(s). See goals on Care Plan in [facility] electronic health record for goal details. Goals not met. Barriers to achieving goals: pt requesting discharge from OT as she feels she has noADL/IADL concerns. Pt declines working on ADLs or functional transfers past bed mobility. Pt adamantly declines cog assessment/screen or functional cog task(simple med set up). Therapy recommendation(s): Concerns with pt's cognition however pt refusing cog assessment and functional cog tasks. Defer discharge recommendations to medical team. Pt may benefit from LTC or 09/10 supervision. * Provider Notification - Anum Coy RN - 09/15/2022 8:05 AM CDT Page to Dr. Rob Pt went to and refused gait belt. She fell with bioinformatics support specialist behind her. She fell to right knee. It is scrapped. Support said she did not hit her head. Right eye is red she said from itching it. Pt could not tell me the date and time. Rapid was canceled d/t getting pt up and to bed. Temp 96.6 HR 123 BP 158/99 RA 96% Sats. Denies pain. BG 89 orange juice given but refused to drink it recheck 92 pt said she is not a diabetic. Will continue to monitor * Plan of Care - Lynda Henderson RN - 09/15/2022 4:40 AM CDT Goal Outcome Evaluation: Plan of Care Reviewed With: patient Overall Patient Progress: no changeOverall Patient Progress: no change Pt A&O, int confusion/forgetful. Ax1 with gb/walker. On room air. VSS. Denied pain and SOB. Pt reported nausea, PO zofran given with relief. Pt c/o R itchy eye. No drainage noted but R eye is red/pinkish. Plan to go home when medically ready. B, 114 * Plan of Care - Brittny Woodward RN - 09/14/2022 5:26 PM CDT Goal Outcome Evaluation: Plan of Care Reviewed With: patient Alert, intermittently confused to place/time. Vitals monitored. C/o nausea with small clear emesis.Zofran x1 with relief. PO antibiotic changed to Levaquin. Poor appetite. BGs 101, 97 and 88. Magnesium level 1.2, attempted IV placement without success. Dr. Rob updated, ok to leave IV out and do PO replacement. Med late due to nausea, repeated doses rescheduled. Up to BR with walker/gait belt/SBA, placed prosthesis on independently. did refuse gait belt and staff hands on to BR. Bed alarm on for safety. Unkempt, have offered to assist with shower/bed bath several times with patient refusal. Plan discharge home in a few days when medically stable, refusing TCU. * Plan of Care - Lynda Henderson RN - 09/14/2022 3:31 AM CDT Goal Outcome Evaluation: Plan of Care Reviewed With: patient Pt A&O, int confusion. VSS. On room air. Ax1 GB/walker. Pt denied pain, SOB and nausea. On mag protocol. Pt slept most of the night. Discharge plans pending. B. 109 * Plan of Care - Brittny Woodward RN - 09/13/2022 6:47 PM CDT Goal Outcome Evaluation: Plan of Care Reviewed With: patient A&Ox2, confused to situation/time at times. Denies pain. Up with assist 2/gait belt/walker. Voiding, incontinent. Tolerating diet, good appetite, BGs ac/hs, no sliding scale coverage needed. Received 500cc D5 IV bolus as ordered, iv saline locked. Changed to PO antibiotic. PT/OT following. [place] home with [facility] when medically ready. * Plan of Care - Arjun Egan RN - 09/13/2022 7:09 AM CDT Goal Outcome Evaluation: Patient alert, oriented to self but little confused and up with assist of 2 via lift. On O2 at 2LPM. Regular diet well tolerated. BG of 99 and 157. On Mg protocol with replacement given and recheck of 2.0. PIV saline locked. Rocephin given as ordered. Purewick on. Denies any pain. Will continue to monitor. * Plan of Care - Lesvia Yeh RN - 09/12/2022 6:57 PM CDT Pt is alert and oriented to self and situation, confused with time and place. Denied pain, reportednausea, Zofran given with relief, was able to eat dinner. BG 114. Mg replacement finished, recheck at 7:38 pm. SL. VSS on 2L O2. * Plan of Care - Nalini Kirkpatrick RN - 09/12/2022 2:48 PM CDT A&Ox4 (with some confusion). Ax2 with lift. VSS. HR tachy at times. MD aware. 02 - 98% on 2L via NC. LS - clear, diminished at bases. Blood sugar - 106 & 129. Magnesium protocol - 1.3. Replacing. Episode of nausea, relieved with Zofran. Refused OT. Voiding via purewick, incontinent episode. IV continuous - Dextrose 5% & NaCl 1000ml with sodium bicarbonate 75mEq/L. * Provider Notification - Nalini Kirkpatrick RN - 09/12/2022 12:10 PM CDT Paged at 1210. pt had order this morning to remove Tele. Tele removed and sent back. PT called and said during their visit her heartrate varied between 115 & 168, whilst sitting. She also complained of dizzyness whilst sitting. * Plan of Care - oJycelyn Brown RN - 09/12/2022 5:32 AM CDT Goal Outcome Evaluation: Bps continue to be stable. Afebrile. Lungs coarse-remains on O2 2L mid 90s. Little production with cough now. Voiding via Purewick with an incontinent episode. Saline locked x2 and ivf infusing. Cms-+1 dorsi pulse and baseline numbness bles. Denies pain. Skin has some bruising. Rocephin for antibiotic therapy. Tolerating some repositioning. Mg recheck 2.2-no need for replacement. Creatinine trending down. No discharge plans at this time. Remains on Contact isolation precautions. No other significant issues noted overnight. * Plan of Care - Omaira Guerra RN - 09/11/2022 7:28 PM CDT Admitting Diagnosis: acute renal failure, UTI Pertinent History: chronic pain, DM, (L)BKA Living Situation: lives at home with roommates Pain plan: Tylenol, Lyrica, Suboxone Mobility: assistance, A2 with lift Baseline activity: assist of 2 Alarms/Safety: bed alarm on LDA's: PIV 3x Pertinent test results: BG checks, mag and K+ Consults: PT, OT Abnormals/Pending: mag 1.1 and replaced twice. Next recheck 2141. Creatinine 3.57 and is trending down Other Cares/Comments: pure-wick in place Discharge Disposition: TBD Discharge Time: TBD Continue with current care plan. Pt had a BP of 75/45. After 500 ml bolus is trending up. Latest BP103/68. Denies dizziness or lightheadedness. Declined PT participation due to feeling more weakness. Received sliding scale per coverage. Voiding via pure-wick. No BM during shift. Will continue to provide supportive care. * Plan of Care - Jeremie Mills RN - 09/11/2022 3:25 AM CDT Goal Outcome Evaluation: Plan of Care Reviewed With: patient A/Ox4, VSS weaned to 1 L O2 overnight. Denies pain. A2/lift d/t L BKA. Purewick in place, voiding adequately. IVF at 125 ml/hr. BG corrected x2, check every 4 hours. Discharge TBD. * Plan of Care - Karma Smyth RN - 09/10/2022 5:57 PM CDT Vital Signs: BP 98/58 (BP Location: Right arm) Pulse 69 Temp 96.8 ??F (36 ??C) (Temporal) Resp 18 Ht 1.722 m (5' 7.8) Wt 78.6 kg (173 lb 4.5 oz) LMP 09/10/2012 SpO2 100% BMI 26.51 kg/m?? Admitting Diagnosis: ARF, Sepsis, UTI Pertinent History: Chronic pain, Right toes amputated, L BKA Living Situation: home with roomate Pain plan: Denies, PRN tylenol available Mobility: assistance, 2 people with lift device Baseline activity: Alarms/Safety: bed alarm, fall wrist band LDA's: PIV x3, purewick Pertinent test results: K 4.8, Mg protocol, 1.6 Consults: Nephrology following Abnormals/Pending: K trending down Other Cares/Comments: Continuous pulse ox, monitoring O2, IVF running 125 mL/hr, LLE elevated, Right foot heel of bed and on a pillow. Tolerating regular diet, ate 100% of her meal, voiding via purewick. BG 128, insulin held. Discharge Disposition: TBD Discharge Time: TBD * Pharmacy-Admission Medication History - Mcay Orellana RPH - 09/10/2022 2:58 PM CDT Admission Medication History Admission medication history is complete. The information provided in this note is only as accurateas the sources available at the time of the update. Medication reconciliation/reorder completed by provider prior to medication history? No Information Source(s): Patient via in-person. Changes made to PATIENT RESOURCE SPECIALIST medication list: ??? Added: keppra (reported as taking, but only can see 30 days supply dispense on 06/18/2022) ??? Deleted: diclofenac ??? Changed: suboxone Additional info: Patient reported to me and to RN that she does not take Baclofen at home for over a year, but last time dispensed by pharmacy 05/25/22 for 30 days supply (90 tabs). Suboxone: can take up to two per day, but only takes one film per day. Allergies reviewed with patient and updates made in EHR: no Medication History Completed By: Macy Orellana RPH 09/10/2022 2:58 PM Prior to Admission medications Medication Sig Taking? amLODIPine (NORVASC) 5 MG tablet Take 1 tablet (5 mg) by mouth daily Yes buprenorphine HCl-naloxone HCl (SUBOXONE) 8-[address] 1 Film under the tongue daily Yes levETIRAcetam (KEPPRA) 1000 MG tablet Take 1,000 mg by mouth 2 times daily Yes lisinopril (ZESTRIL) 20 MG tablet Take 1 tablet (20 mg) by mouth daily Yes pantoprazole (PROTONIX) 40 MG EC tablet Take 1 tablet (40 mg) by mouth daily Yes PARoxetine (PAXIL) 30 MG tablet Take 2 tablets (60 mg) by mouth daily Yes pregabalin (LYRICA) 150 MG capsule Take 1 capsule (150 mg) by mouth 2 times daily Yes rosuvastatin (CRESTOR) 5 MG tablet Take 1 tablet (5 mg) by mouth daily Yes Baclofen (LIORESAL) 5 MG tablet Take 1 tablet (5 mg) by mouth 2 times daily Patient not taking: Reported on 09/10/2022 * Plan of Care - Emily Woodward RN - 09/10/2022 2:49 PM CDT Patient Afebrile, lethargic. Has Chronic pain for which she is being medicated for . Neuro: Alert x 2, disorientated to situation and time. Cardiac: Tele SR BBB. BP soft. Respiratory: LS clear. NC 4 L. Coughing up thick secretions. Stating in the upper 90's : Pure wick in place. > 700 out. Patient has UTI on Ceftriaxone. GI: Reg diet, unknown last bowel movement. Intermittent nausea this shift. No emesis.patient shouldbe NPO at midnight for Ultra sound Sunday morning. Blood Glucose 113 and 122 this shift Skin: Left BKA. Patient is a MTOF and report has been given to Renae on 6th floor. Transferring to #[id number] * Plan of Care - Maria Victoria Lewis RN - 09/10/2022 6:48 AM CDT Goal Outcome Evaluation: ICU End of Shift Summary. For vital signs and complete assessments, please see documentation flowsheets. Pertinent assessments: pt is alert, confused. Admitted for NEAL/UTI. Creatinine down this am from 12.9 to 8.8. potassium remains stable at 4.8. pt fidgety in bed, has not slept overnight. Some nausea/emesis. Zofran given X1 with some relief. Pt with a frequent productive cough. External cath in place, 325 ml urine overnight. IVF infusing at 125. Major Shift Events: admit from the ER Plan (Upcoming Events): continue current ICU cares, nephrology consult Discharge/Transfer Needs: unclear, comes from home with roommates Bedside Shift Report Completed : y Bedside Safety Check Completed: y documented in this encounter Plan of Treatment Not on file documented as of this encounter Goals Goal Patient Goal Type Associated Problems Recent Progress Patient-Stated? Author Financial Wellbeing General Yes Rosey Alexander, ANIMAL PATHOLOGIST documented as of this encounter Procedures Procedure Name Priority Date/Time Associated Diagnosis Comments PHOSPHORUS Routine 09/17/2022 8:29 AM CDT MAGNESIUM Routine 09/17/2022 8:29 AM CDT BASIC METABOLIC PANEL Routine 09/17/2022 8:29 AM CDT CBC WITH PLATELETS Routine 09/17/2022 8: 29 AM CDT PHOSPHORUS Add-On 09/16/2022 7:50 AM CDT MAGNESIUM Routine 09/16/2022 7:50 AM CDT BASIC METABOLIC PANEL Routine 09/16/2022 7:50 AM CDT CBC WITH PLATELETS Routine 09/16/2022 7: 50 AM CDT GLUCOSE BY METER Routine 09/15/2022 12:3 5 PM CDT MAGNESIUM Routine 09/15/2022 8:51 AM CDT FOLATE Routine 09/15/2022 8:51 AM CDT VITAMIN B12 Routine 09/15/2022 8:51 AM CDT BASIC METABOLIC PANEL Routine 09/15/2022 8:51 AM CDT CBC WITH PLATELETS Routine 09/15/2022 8: 51 AM CDT GLUCOSE BY METER Routine 09/15/2022 8:31 AM CDT GLUCOSE BY METER Routine 09/15/2022 8:05 AM CDT GLUCOSE BY METER Routine 09/15/2022 2:18 AM CDT GLUCOSE BY METER Routine 09/14/2022 10:2 8 PM CDT GLUCOSE BY METER Routine 09/14/2022 8:02 PM CDT GLUCOSE BY METER Routine 09/14/2022 4:24 PM CDT MAGNESIUM Timed 09/14/2022 2:25 PM CDT GLUCOSE BY METER Routine 09/14/2022 11:2 6 AM CDT GLUCOSE BY METER Routine 09/14/2022 7:35 AM CDT MORPHOLOGY TRACKING Routine 09/14/2022 6 :31 AM CDT BLOOD MORPHOLOGY PATHOLOGIST REVIEW Routine 09/14/2022 6:31 AM CDT CBC WITH PLATELETS AND DIFFERENTIAL Routine 09/14/2022 6:31 AM CDT RETICULOCYTE COUNT Routine 09/14/2022 6: 31 AM CDT MAGNESIUM Routine 09/14/2022 6:31 AM CDT BLOOD MORPHOLOGY PATHOLOGIST REVIEW Routine 09/14/2022 6:31 AM CDT BASIC METABOLIC PANEL Routine 09/14/2022 6:31 AM CDT CBC WITH PLATELETS Routine 09/14/2022 6: 31 AM CDT GLUCOSE BY METER Routine 09/14/2022 3:00 AM CDT GLUCOSE BY METER Routine 09/13/2022 9:57 PM CDT GLUCOSE BY METER Routine 09/13/2022 5:00 PM CDT GLUCOSE BY METER Routine 09/13/2022 11:3 9 AM CDT MAGNESIUM Add-On 09/13/2022 8:11 AM CDT BASIC METABOLIC PANEL Routine 09/13/2022 8:11 AM CDT GLUCOSE BY METER Routine 09/13/2022 7:32 AM CDT GLUCOSE BY METER Routine 09/13/2022 2:21 AM CDT MAGNESIUM Timed 09/12/2022 8:03 PM CDT GLUCOSE BY METER Routine 09/12/2022 7:42 PM CDT GLUCOSE BY METER Routine 09/12/2022 4:46 PM CDT GLUCOSE BY METER Routine 09/12/2022 11:3 3 AM CDT MAGNESIUM STAT Add-on 09/12/2022 10:46 AM CDT BASIC METABOLIC PANEL Routine 09/12/2022 10:46 AM CDT GLUCOSE BY METER Routine 09/12/2022 7:33 AM CDT GLUCOSE BY METER Routine 09/12/2022 1:35 AM CDT GLUCOSE BY METER Routine 09/11/2022 10:0 6 PM CDT MAGNESIUM Timed 09/11/2022 9:56 PM CDT GLUCOSE BY METER Routine 09/11/2022 5:42 PM CDT MAGNESIUM Timed 09/11/2022 3:06 PM CDT GLUCOSE BY METER Routine 09/11/2022 11:4 0 AM CDT US ABDOMEN LIMITED Routine 09/11/2022 8: 12 AM CDT GLUCOSE BY METER Routine 09/11/2022 8:10 AM CDT MAGNESIUM Routine 09/11/2022 7:30 AM CDT HEPATIC FUNCTION PANEL Routine 09/11/2022 7:30 AM CDT CK TOTAL Routine 09/11/2022 7:30 AM CDT BASIC METABOLIC PANEL Routine 09/11/2022 7:30 AM CDT CBC WITH PLATELETS Routine 09/11/2022 7: 30 AM CDT GLUCOSE BY METER Routine 09/11/2022 3:05 AM CDT GLUCOSE BY METER Routine 09/11/2022 1:56 AM CDT GLUCOSE BY METER Routine 09/10/2022 11:5 6 PM CDT GLUCOSE BY METER Routine 09/10/2022 9:58 PM CDT GLUCOSE BY METER Routine 09/10/2022 8:03 PM CDT GLUCOSE BY METER Routine 09/10/2022 3:55 PM CDT GLUCOSE BY METER Routine 09/10/2022 12:1 4 PM CDT GLUCOSE BY METER Routine 09/10/2022 7:42 AM CDT FRACTIONAL EXCRETION OF SODIUM STAT 09/10/2022 6:13 AM CDT FRACTIONAL EXCRETION OF SODIUM STAT 09/10/2022 6:13 AM CDT PHOSPHORUS Routine 09/10/2022 5:34 AM CDT MAGNESIUM Routine 09/10/2022 5:34 AM CDT BASIC METABOLIC PANEL Routine 09/10/2022 5:34 AM CDT CBC WITH PLATELETS Routine 09/10/2022 5: 34 AM CDT GLUCOSE BY METER Routine 09/10/2022 4:05 AM CDT GLUCOSE BY METER Routine 09/10/2022 2:[address] ABDOMEN PELVIS W/O CONTRAST STAT 09/10/2022 1:42 AM CDT BLOOD GAS VENOUS WITH OXYHEMOGLOBIN STAT 09/10/2022 12:55 AM CDT GLUCOSE BY METER STAT 09/10/2022 12:5 3 AM CDT GLUCOSE BY METER STAT 09/09/2022 11:5 6 PM CDT ETHYLENE GLYCOL STAT 09/09/2022 11:52 PM CDT VOLATILES SCREEN STAT 09/09/2022 11:5 2 PM CDT PROCALCITONIN Add-On 09/09/2022 11:52 PM CDT BASIC METABOLIC PANEL STAT 09/09/2022 11:[address] CERVICAL SPINE W/O CONTRAST STAT 09/09/2022 11:[address] HEAD W/O CONTRAST STAT 09/09/2022 11:43 PM CDT ISTAT GASES LACTATE VENOUS POCT STAT 09/09/2022 11:36 PM CDT SALICYLATE LEVEL STAT 09/09/2022 11:2 4 PM CDT BASIC METABOLIC PANEL STAT 09/09/2022 11:24 PM CDT GLUCOSE BY METER STAT 09/09/2022 10:2 6 PM CDT XR CHEST PORT 1 VIEW STAT 09/09/2022 9:12 PM CDT URINE DRUG SCREEN STAT 09/09/2022 8:4 7 PM CDT ROUTINE UA WITH MICROSCOPIC REFLEX TO CULTURE STAT 09/09/2022 8:47 PM CDT DRUG ABUSE SCREEN 1 URINE (ED) STAT 09/09/2022 8:47 PM CDT URINE CULTURE STAT 09/09/2022 8:47 PM CDT EXTRA TUBE STAT 09/09/2022 8:46 PM CDT EXTRA GREEN TOP (LITHIUM HEPARIN) TUBE STAT 09/09/2022 8:46 PM CDT CBC WITH PLATELETS AND DIFFERENTIAL STAT 09/09/2022 8:46 PM CDT CBC WITH PLATELETS & DIFFERENTIAL STAT 09/09/2022 8:46 PM CDT TSH WITH FREE T4 REFLEX STAT 09/09/2022 8:46 PM CDT INR STAT 09/09/2022 8:46 PM CDT MAGNESIUM STAT 09/09/2022 8:46 PM CDT LACTIC ACID WHOLE BLOOD STAT 09/09/2022 8:46 PM CDT KETONE BETA-HYDROXYBUTYRATE QUANTITATIVE, RAPID STAT 09/09/2022 8:46 PM CDT HEMOGLOBIN A1C Add-On 09/09/2022 8:46 PM CDT COMPREHENSIVE METABOLIC PANEL STAT 09/09/2022 8:46 PM CDT CK TOTAL STAT 09/09/2022 8:46 PM CDT BLOOD GAS VENOUS STAT 09/09/2022 8:46 PM CDT BLOOD CULTURE STAT 09/09/2022 8:46 PM CDT BLOOD CULTURE STAT 09/09/2022 8:46 PM CDT ISTAT GASES LACTATE VENOUS POCT STAT 09/09/2022 8:44 PM CDT EKG 12-LEAD, TRACING ONLY STAT 09/09/2022 8:15 PM CDT documented in this encounter Results * (ABNORMAL) Phosphorus (09/17/2022 8:29 AM CDT) Phosphorus 2.1(L) 2.5 - 4.5 mg/dL 09/17/2022 10:25 AM CDT LABORATORY Blood STRUCTURE OF LEFT HAND / Unknown Venipuncture / Unknown 09/17/2022 8:29 AM CDT 09/17/2022 10:07 AM CDT Bird Crawford MD LAB - BLOOD ORDERABL ES RH LABORATORY [facility] [address] [facility] (1st floor, no room number) [place] [address], [facility] [phone] * (ABNORMAL) Magnesium (09/17/2022 8:29 AM CDT) Pathologist [facility] Magnesium 1.6(L) 1.7 - 2.3 mg/dL 09/17/2022 10:25 AM CDT LABORATORY Blood STRUCTURE OF LEFT HAND / Unknown Venipuncture / Unknown 09/17/2022 8:29 AM CDT 09/17/2022 10:07 AM CDT Bird Crawford MD LAB - BLOOD ORDERABL ES LABORATORY [facility] [address] [facility] Lab (1st floor, no room number) [place] [address], [facility] [phone] * (ABNORMAL) Basic metabolic panel (09/17/2022 8:29 AM CDT) Pathologist [facility] Sodium 148(H) 136 - 145 mmol/L 09/17/2022 10:25 AM CDT LABORATORY Potassium 4.3 3.4 - 5.3 mmol/L 09/17/2022 10:25 AM CDT LABORATORY Chloride 112(H) 98 - 107 mmol/L 09/17/2022 10:25 AM CDT LABORATORY Carbon Dioxide (CO2) 25 22 - 29 mmol/L 09/17/2022 10:25 AM CDT LABORATORY Anion Gap 11 7 - 15 mmol/L 09/17/2022 10:25 AM CDT LABORATORY Urea Nitrogen 13.4 8.0 - 23.0 mg/dL 09/17/2022 10:25 AM CDT LABORATORY Creatinine 0.98(H) 0.51 - 0.95 mg/dL 09/17/2022 10:25 AM CDT LABORATORY Calcium 8.8 8.6 - 10.0 mg/dL 09/17/2022 10:25 AM CDT LABORATORY Glucose 109(H) 70 - 99 mg/dL 09/17/2022 10:25 AM CDT LABORATORY GFR Estimate 66 >60 mL/min/1.7 3m2 09/17/2022 10:25 AM CDT RH LABORATORY Blood STRUCTURE OF LEFT HAND / Unknown Venipuncture / Unknown 09/17/2022 8:29 AM CDT 09/17/2022 10:07 AM CDT Miguel Angel Rob MD LAB - BLOOD ORDERABL ES RH LABORATORY [facility] Lab [address] Lab (1st floor, no room number) [place] [address], [facility] [phone] * (ABNORMAL) CBC with platelets (09/17/2022 8:29 AM CDT) WBC Count 8.1 4.0 - 11.0 10e3/uL 09/17/2022 8:59 AM CDT RH LABORATORY RBC Count 3.93 3.80 - 5.20 10e6/uL 09/17/2022 8:59 AM CDT RH LABORATORY Hemoglobin 12.7 11.7 - 15.7 g/dL 09/17/2022 8:59 AM CDT RH LABORATORY Hematocrit 40.9 35.0 - 47.0 % 09/17/2022 8:59 AM CDT RH LABORATORY MCV 104(H) 78 - 100 fL 09/17/2022 8:59 AM CDT RH LABORATORY MCH 32.3 26.5 - 33.0 pg 09/17/2022 8:59 AM CDT RH LABORATORY MCHC 31.1(L) 31.5 - 36.5 g/dL 09/17/2022 8:59 AM CDT RH LABORATORY RDW 14.9 10.0 - 15.0 % 09/17/2022 8:59 AM CDT RH LABORATORY Platelet Count 139(L) 150 - 450 10e3/uL 09/17/2022 8:59 AM CDT RH LABORATORY Blood STRUCTURE OF LEFT HAND / Unknown Venipuncture / Unknown 09/17/2022 8:29 AM CDT 09/17/2022 8:59 AM CDT Miguel Angel Rob MD LAB - BLOOD ORDERABL ES RH LABORATORY [facility] Lab [address] Lab (1st floor, no room number) [place] [address], [facility] [phone] * (ABNORMAL) Phosphorus (09/16/2022 7:50 AM CDT) Phosphorus 2.0(L) 2.5 - 4.5 mg/dL 09/16/2022 2:53 PM CDT RH LABORATORY Blood STRUCTURE OF RIGHT HAND / Unknown Venipuncture / Unknown 09/16/2022 7:50 AM CDT 09/16/2022 7:58 AM CDT Bird Crawford MD LAB - BLOOD ORDERABL ES [facility] Lab [address] Lab (1st floor, no room number) [place] [address], [facility] [phone] * (ABNORMAL) Magnesium (09/16/2022 7:50 AM CDT) Magnesium 1.2(L) 1.7 - 2.3 mg/dL 09/16/2022 8:33 AM CDT RH LABORATORY Blood STRUCTURE OF RIGHT HAND / Unknown Venipuncture / Unknown 09/16/2022 7:50 AM CDT 09/16/2022 7:58 AM CDT Miguel Angel Rob MD LAB - BLOOD ORDERABL ES [facility] Lab [address] Lab (1st floor, no room number) [place] [address], [facility] [phone] * (ABNORMAL) Basic metabolic panel (09/16/2022 7:50 AM CDT) Sodium 146(H) 136 - 145 mmol/L 09/16/2022 8:33 AM CDT RH LABORATORY Potassium 4.4 3.4 - 5.3 mmol/L 09/16/2022 8:33 AM CDT RH LABORATORY Chloride 110(H) 98 - 107 mmol/L 09/16/2022 8:33 AM CDT LABORATORY Carbon Dioxide (CO2) 25 22 - 29 mmol/L 09/16/2022 8:33 AM CDT LABORATORY Anion Gap 11 7 - 15 mmol/L 09/16/2022 8:33 AM CDT LABORATORY Urea Nitrogen 14.1 8.0 - 23.0 mg/dL 09/16/2022 8:33 AM CDT LABORATORY Creatinine 0.97(H) 0.51 - 0.95 mg/dL 09/16/2022 8:33 AM CDT LABORATORY Calcium 8.5(L) 8.6 - 10.0 mg/dL 09/16/2022 8:33 AM CDT LABORATORY Glucose 110(H) 70 - 99 mg/dL 09/16/2022 8:33 AM CDT LABORATORY GFR Estimate 67 >60 mL/min/1.7 3m2 09/16/2022 8:33 AM CDT LABORATORY Blood STRUCTURE OF RIGHT HAND / Unknown Venipuncture / Unknown 09/16/2022 7:50 AM CDT 09/16/2022 7:58 AM CDT Miguel Angel Rob MD LAB - BLOOD ORDERABL ES LABORATORY [facility] Lab [address] Lab (1st floor, no room number) [place] [address], [facility] [phone] * (ABNORMAL) CBC with platelets (09/16/2022 7:50 AM CDT) WBC Count 7.8 4.0 - 11.0 10e3/uL 09/16/2022 8:09 AM CDT LABORATORY RBC Count 3.85 3.80 - 5.20 10e6/uL 09/16/2022 8:09 AM CDT LABORATORY Hemoglobin 12.5 11.7 - 15.7 g/dL 09/16/2022 8:09 AM CDT LABORATORY Hematocrit 39.4 35.0 - 47.0 % 09/16/2022 8:09 AM CDT LABORATORY MCV 102(H) 78 - 100 fL 09/16/2022 8:09 AM CDT RH LABORATORY MCH 32.5 26.5 - 33.0 pg 09/16/2022 8:09 AM CDT RH LABORATORY MCHC 31.7 31.5 - 36.5 g/dL 09/16/2022 8:09 AM CDT RH LABORATORY RDW 14.9 10.0 - 15.0 % 09/16/2022 8:09 AM CDT RH LABORATORY Platelet Count 104(L) 150 - 450 10e3/uL 09/16/2022 8:09 AM CDT RH LABORATORY Blood STRUCTURE OF RIGHT HAND / Unknown Venipuncture / Unknown 09/16/2022 7:50 AM CDT 09/16/2022 7:58 AM CDT Miguel Angel Rob MD LAB - BLOOD ORDERABL ES Performing Organization Address City/[facility]/ZIP Co de Phone Number LABORATORY [facility] Lab [address] Lab (1st floor, no room number) [place] [address], [facility] [phone] * Glucose by meter (09/15/2022 12:35 PM CDT) GLUCOSE BY METER POCT 99 70 - 99 mg/dL 09/15/2022 12:42 PM CDT RH LABORATORY POC Blood, Capillary BLOOD SPECIMEN / Unknown 09/15/2022 12:35 PM CDT 09/15/2022 12:42 PM CDT Miguel Angel Rob MD LAB - BEAKER POCT LABORATORY POC [facility] [address] Lab (1st floor, no room number) [place] [address], [facility] [phone] * (ABNORMAL) Folate (09/15/2022 8:51 AM CDT) Folic Acid 2.6(L) 4.6 - 34.8 ng/mL 09/15/2022 2:05 PM CDT UU LABORATORY Blood STRUCTURE OF RIGHT UPPER LIMB / Unknown Venipuncture / Unknown 09/15/2022 8:51 AM CDT 09/15/2022 9:03 AM CDT Miguel Angel Rob MD LAB - BLOOD ORDERABL ES LABORATORY [facility] [address] [facility], [address] [address], [facility] [phone] * Vitamin B12 (09/15/2022 8:51 AM CDT) Vitamin B12 366 232 - 1,245 pg/mL 09/15/2022 2:53 PM CDT LABORATORY Blood STRUCTURE OF RIGHT UPPER LIMB / Unknown Venipuncture / Unknown 09/15/2022 8:51 AM CDT 09/15/2022 9:03 AM CDT Miguel Angel Rob MD LAB - BLOOD ORDERABL ES Performing Organization Address [facility]/ZIP Co de Phone Number LABORATORY [facility] [address] [facility], [address] [address], [facility] [phone] * (ABNORMAL) Magnesium (09/15/2022 8:51 AM CDT) Magnesium 1.2(L) 1.7 - 2.3 mg/dL 09/15/2022 9:31 AM CDT LABORATORY Blood STRUCTURE OF RIGHT UPPER LIMB / Unknown Venipuncture / Unknown 09/15/2022 8:51 AM CDT 09/15/2022 9:03 AM CDT Miguel Angel Rob MD LAB - BLOOD ORDERABL ES LABORATORY [facility] Lab [address] Lab (1st floor, no room number) [place] [address], [place] [phone] * (ABNORMAL) Basic metabolic panel (09/15/2022 8:51 AM CDT) Sodium 146(H) 136 - 145 mmol/L 09/15/2022 9:31 AM CDT LABORATORY Potassium 4.5 3.4 - 5.3 mmol/L 09/15/2022 9:31 AM CDT LABORATORY Chloride 108(H) 98 - 107 mmol/L 09/15/2022 9:31 AM CDT LABORATORY Carbon Dioxide (CO2) 31(H) 22 - 29 mmol/L 09/15/2022 9:31 AM CDT LABORATORY Anion Gap 7 7 - 15 mmol/L 09/15/2022 9:31 AM CDT LABORATORY Urea Nitrogen 21.4 8.0 - 23.0 mg/dL 09/15/2022 9:31 AM CDT LABORATORY Creatinine 1.04(H) 0.51 - 0.95 mg/dL 09/15/2022 9:31 AM CDT LABORATORY Calcium 8.4(L) 8.6 - 10.0 mg/dL 09/15/2022 9:31 AM CDT LABORATORY Glucose 121(H) 70 - 99 mg/dL 09/15/2022 9:31 AM CDT LABORATORY GFR Estimate 62 >60 mL/min/1.7 3m2 09/15/2022 9:31 AM CDT LABORATORY Blood STRUCTURE OF RIGHT UPPER LIMB / Unknown Venipuncture / Unknown 09/15/2022 8:51 AM CDT 09/15/2022 9:03 AM CDT Miguel Angel Rob MD LAB - BLOOD ORDERABL ES LABORATORY [facility] Lab [address] Lab (1st floor, no room number) [place] [address], [facility] [phone] * (ABNORMAL) CBC with platelets (09/15/2022 8:51 AM CDT) WBC Count 8.0 4.0 - 11.0 10e3/uL 09/15/2022 9:08 AM CDT LABORATORY RBC Count 3.84 3.80 - 5.20 10e6/uL 09/15/2022 9:08 AM CDT RH LABORATORY Hemoglobin 12.5 11.7 - 15.7 g/dL 09/15/2022 9:08 AM CDT RH LABORATORY Hematocrit 39.6 35.0 - 47.0 % 09/15/2022 9:08 AM CDT RH LABORATORY MCV 103(H) 78 - 100 fL 09/15/2022 9:08 AM CDT RH LABORATORY MCH 32.6 26.5 - 33.0 pg 09/15/2022 9:08 AM CDT RH LABORATORY MCHC 31.6 31.5 - 36.5 g/dL 09/15/2022 9:08 AM CDT RH LABORATORY RDW 15.0 10.0 - 15.0 % 09/15/2022 9:08 AM CDT RH LABORATORY Platelet Count 83(L) 150 - 450 10e3/uL 09/15/2022 9:08 AM CDT RH LABORATORY Blood STRUCTURE OF RIGHT UPPER LIMB / Unknown Venipuncture / Unknown 09/15/2022 8:51 AM CDT 09/15/2022 9:03 AM CDT Miguel Angel Rob MD LAB - BLOOD ORDERABL ES LABORATORY [facility] Lab [address] Lab (1st floor, no room number) [place] [address], [facility] [phone] * Glucose by meter (09/15/2022 8:31 AM CDT) [facility] Signature GLUCOSE BY METER POCT 92 70 - 99 mg/dL 09/15/2022 8:38 AM CDT RH LABORATORY POC Blood, Capillary BLOOD SPECIMEN / Unknown 09/15/2022 8:31 AM CDT 09/15/2022 8:38 AM CDT Miguel Angel Rob MD LAB - BEAKER POCT RH LABORATORY POC [facility] Lab [address] Lab (1st floor, no room number) [place] [address], [place] [phone] * Glucose by meter (09/15/2022 8:05 AM CDT) GLUCOSE BY METER POCT 89 70 - 99 mg/dL 09/15/2022 8:12 AM CDT LABORATORY POC Blood, Capillary BLOOD SPECIMEN / Unknown 09/15/2022 8:05 AM CDT 09/15/2022 8:12 AM CDT Miguel Angel Rob MD LAB - BEAKER POCT LABORATORY [facility] [address] Lab (1st floor, no room number) [place] [address], [facility] [phone] * (ABNORMAL) Glucose by meter (09/15/2022 2:18 AM CDT) GLUCOSE BY METER POCT 114(H) 70 - 99 mg/dL 09/15/2022 2:25 AM CDT LABORATORY POC Blood, Capillary BLOOD SPECIMEN / Unknown 09/15/2022 2:18 AM CDT 09/15/2022 2:25 AM CDT Miguel Angel HEMPHILL - Go Try It OnHAWA POCT Performing Organization Address City/[facility]/ZIP Co de Phone Number LABORATORY [facility] Lab [address] Lab (1st floor, no room number) [place] [address], [place] [phone] * (ABNORMAL) Glucose by meter (09/14/2022 10:28 PM CDT) GLUCOSE BY METER POCT 111(H) 70 - 99 mg/dL 09/14/2022 10:35 PM CDT LABORATORY POC Blood, Capillary BLOOD SPECIMEN / Unknown 09/14/2022 10:28 PM CDT 09/14/2022 10:35 PM CDT Miguel Angel HEMPHILL - KATI POCT LABORATORY [facility] Lab [address] Lab (1st floor, no room number) [place] [address], [facility] [phone] * (ABNORMAL) Glucose by meter (09/14/2022 8:02 PM CDT) GLUCOSE BY METER POCT 104(H) 70 - 99 mg/dL 09/14/2022 8:09 PM CDT RH LABORATORY POC Blood, Capillary BLOOD SPECIMEN / Unknown 09/14/2022 8:02 PM CDT 09/14/2022 8:09 PM CDT Miguel Angel HEMPHILL - KATI POCT Performing Organization Address City/[facility]/ZIP Co de Phone Number LABORATORY [facility] Lab [address] Lab (1st floor, no room number) [place] [address], [facility] [phone] * Glucose by meter (09/14/2022 4:24 PM CDT) GLUCOSE BY METER POCT 88 70 - 99 mg/dL 09/14/2022 4:31 PM CDT LABORATORY POC Blood, Capillary BLOOD SPECIMEN / Unknown 09/14/2022 4:24 PM CDT 09/14/2022 4:31 PM CDT Miguel Angel PARIKH POCT Performing Organization Address City/[facility]/ZIP Co de Phone Number LABORATORY [facility] Lab [address] Lab (1st floor, no room number) [place] [address], [facility] [phone] * (ABNORMAL) Magnesium (09/14/2022 2:25 PM CDT) Magnesium 1.1(L) 1.7 - 2.3 mg/dL 09/14/2022 2:50 PM CDT RH LABORATORY Blood STRUCTURE OF LEFT HAND / Unknown Venipuncture / Unknown 09/14/2022 2:25 PM CDT 09/14/2022 2:30 PM CDT Miguel Angel Rob MD LAB - BLOOD ORDERABL ES Performing Organization Address City/[facility]/ZIP Co de Phone Number [facility] Lab [address] Lab (1st floor, no room number) [place] [address], [place] [phone] * Glucose by meter (09/14/2022 11:26 AM CDT) GLUCOSE BY METER POCT 97 70 - 99 mg/dL 09/14/2022 11:33 AM CDT LABORATORY POC Blood, Capillary BLOOD SPECIMEN / Unknown 09/14/2022 11:26 AM CDT 09/14/2022 11:33 AM CDT Miguel Angel HEMPHILL - BEAKER POCT Performing Organization Address [facility]/ZIP Co de Phone Number [facility] Lab [address] Lab (1st floor, no room number) [place] [address], [place] [phone] * (ABNORMAL) Glucose by meter (09/14/2022 7:35 AM CDT) GLUCOSE BY METER POCT 101(H) 70 - 99 mg/dL 09/14/2022 7:42 AM CDT LABORATORY POC Blood, Capillary BLOOD SPECIMEN / Unknown 09/14/2022 7:35 AM CDT 09/14/2022 7:42 AM CDT Miguel Angel HEMPHILL - BEAKER POCT [facility] Lab [address] Lab (1st floor, no room number) [place] [address], [place] [phone] * Morphology Tracking (09/14/2022 6:31 AM CDT) Blood STRUCTURE OF RIGHT HAND / Unknown Venipuncture / Unknown 09/14/2022 6:31 AM CDT 09/14/2022 8:19 AM CDT Miguel Angel Rob MD LAB - BLOOD ORDERABL ES Performing Organization Address [facility]/State/ZIP Co de Phone Number [facility] Lab [address] Lab (1st floor, no room number) [place] [address], [facility] [phone] * Reticulocyte count (09/14/2022 6:31 AM CDT) % Reticulocyte 0.8 0.5 - 2.0 % 09/14/2022 8:37 AM CDT RH LABORATORY Absolute Reticulocyte 0.030 0.025 - 0.095 10e6/uL 09/14/2022 8:37 AM CDT RH LABORATORY Blood STRUCTURE OF RIGHT HAND / Unknown Venipuncture / Unknown 09/14/2022 6:31 AM CDT 09/14/2022 8:19 AM CDT Miguel Angel Rob MD LAB - BLOOD ORDERABL ES Performing Organization Address [facility]/ZIP Co de Phone Number [facility] Lab [address] Lab (1st floor, no room number) [place] [address], [facility] [phone] * (ABNORMAL) CBC with platelets and differential (09/14/2022 6:31 AM CDT) WBC Count 8.6 4.0 - 11.0 10e3/uL 09/14/2022 8:37 AM CDT RH LABORATORY RBC Count 3.61(L) 3.80 - 5.20 10e6/uL 09/14/2022 8:37 AM CDT RH LABORATORY Hemoglobin 11.9 11.7 - 15.7 g/dL 09/14/2022 8:37 AM CDT RH LABORATORY Hematocrit 36.9 35.0 - 47.0 % 09/14/2022 8:37 AM CDT RH LABORATORY MCV 102(H) 78 - 100 fL 09/14/2022 8:37 AM CDT RH LABORATORY MCH 33.0 26.5 - 33.0 pg 09/14/2022 8:37 AM CDT RH LABORATORY MCHC 32.2 31.5 - 36.5 g/dL 09/14/2022 8:37 AM CDT RH LABORATORY RDW 15.1(H) 10.0 - 15.0 % 09/14/2022 8:37 AM CDT RH LABORATORY Platelet Count 66(L) 150 - 450 10e3/uL 09/14/2022 8:37 AM CDT RH LABORATORY % Neutrophils 70 % 09/14/2022 8:37 AM CDT RH LABORATORY % Lymphocytes 18 % 09/14/2022 8:37 AM CDT RH LABORATORY % Monocytes 6 % 09/14/2022 8:37 AM CDT RH LABORATORY % Eosinophils 4 % 09/14/2022 8:37 AM CDT RH LABORATORY % Basophils 1 % 09/14/2022 8:37 AM CDT RH LABORATORY % Immature Granulocytes 1 % 09/14/2022 8:37 AM CDT RH LABORATORY NRBCs per 100 WBC 0 <1 /100 023 8:37 AM CDT RH LABORATORY Absolute Neutrophils 6.2 1.6 - 8.3 10e3/uL 09/14/2022 8:37 AM CDT RH LABORATORY Absolute Lymphocytes 1.6 0.8 - 5.3 10e3/uL 09/14/2022 8:37 AM CDT RH LABORATORY Absolute Monocytes 0.5 0.0 - 1.3 10e3/uL 09/14/2022 8:37 AM CDT RH LABORATORY Absolute Eosinophils 0.3 0.0 - 0.7 10e3/uL 09/14/2022 8:37 AM CDT RH LABORATORY Absolute Basophils 0.0 0.0 - 0.2 10e3/uL 09/14/2022 8:37 AM CDT RH LABORATORY Absolute Immature Granulocytes 0.1 <=0.4 10e3/uL 09/14/2022 8:37 AM CDT RH LABORATORY Absolute NRBCs 0.0 10e3/uL 09/14/2022 8:37 AM CDT RH LABORATORY Blood STRUCTURE OF RIGHT HAND / Unknown Venipuncture / Unknown 09/14/2022 6:31 AM CDT 09/14/2022 8:19 AM CDT Miguel Angel Rob MD LAB - BLOOD ORDERABL ES [facility] Lab [address] Lab (1st floor, no room number) [place] [address], [facility] [phone] * Bld morphology pathology review (09/14/2022 6:31 AM CDT) Final Diagnosis Peripheral blood demonstrating macrocytic anemia with thrombocytopenia (see comment) 09/14/2022 2:33 PM CDT [facility] Comment Causes for macrocyti c anemia typically include B12/folate deficiency, liver disease, alcohol, medication reactions, hypothyroidism, myelodysplasia and reticulocytosis. The origin of the noted thrombocytopenia is not apparent from evaluation of the peripheral blood specimen. Dysplastic features are not observed. Clinical correlation is required. 09/14/2022 2:33 PM CDT [facility] Peripheral Smear The red blood cells are reduced in number and are macrocytic normochromic. Anisopoikilocytosis is mild and nonspecific. Polychromasia is not increased. Rouleaux is not evident. The white blood cells are normal in number with neutrophils predominating. No atypical or dysplastic cells are apparent. The platelets are reduced in number but are morphologically unremarkable. 09/14/2022 2:33 PM CDT [facility] Peripheral Hematologic Data Latest Reference Range & Units 09/14/22 06:31 WBC 4.0 - 11.0 10e3/uL 4.0 - 11.0 10e3/uL 8.6 9.1 Hemoglobin 11.7 - 15.7 g/dL 11.7 - 15.7 g/dL 11.9 11.7 Hematocrit 35.0 - 47.0 % 35.0 - 47.0 % 36.9 37.1 Platelet Count 150 - 450 10e3/uL 150 - 450 10e3/uL 66 (L) 63 (L) RBC Count 3.80 - 5.20 10e6/uL 3.80 - 5.20 10e6/uL 3.61 (L) 3.61 (L) MCV 78 - 100 fL 78 - 100 fL 102 (H) 103 (H) MCH 26.5 - 33.0 pg 26.5 - 33.0 pg 33.0 32.4 MCHC 31.5 - 36.5 g/dL 31.5 - 36.5 g/dL 32.2 31.5 RDW 10.0 - 15.0 % 10.0 - 15.0 % 15.1 (H) 15.3 (H) % Neutrophils % 70 % Lymphocytes % 18 % Monocytes % 6 % Eosinophils % 4 % Basophils % 1 Absolute Basophils 0.0 - 0.2 10e3/uL 0.0 Absolute Eosinophils 0.0 - 0.7 10e3/uL 0.3 Absolute Immature Granulocytes <=0.4 10e3/uL 0.1 Absolute Lymphocytes 0.8 - 5.3 10e3/uL 1.6 Absolute Monocytes 0.0 - 1.3 10e3/uL 0.5 % Immature Granulocytes % 1 Absolute Neutrophils 1.6 - 8.3 10e3/uL 6.2 Absolute NRBCs 10e3/uL 0.0 NRBCs per 100 WBC <1 /100 0 % Retic 0.5 - 2.0 % 0.8 Absolute Retic 0.025 - 0.095 10e6/uL 0.030 (L): Data is abnormally low (H): Data is abnormally high 09/14/2022 2:33 PM [facility] Performing Labs The technical component of this testing was completed at [facility], [facility] and [facility] 09/14/2022 2:33 PM T [facility] Blood BLOOD SPECIMEN / Unknown Venipuncture / Unknown 09/14/2022 6:31 AM CDT 09/14/2022 8:19 AM CDT Comment:CBC with platelets d ifferential and Reticulocyte count should be ordered concurrently with the peripheral smear (all tests performed on the same tube of blood). The concurrent CBC with platelets differential and Reticulocyte count are incorporated into the final peripheral smear report and are necessary for interpretation. Miguel Angel HEMPHILL - KATI LOZANO [facility] Lab [address], [address] [place] [address] * (ABNORMAL) Basic metabolic panel (09/14/2022 6:31 AM CDT) Pathologist [facility] Sodium 144 136 - 145 mmol/L 09/14/2022 7:28 AM CDT LABORATORY Potassium 4.1 3.4 - 5.3 mmol/L 09/14/2022 7:28 AM CDT LABORATORY Chloride 106 98 - 107 mmol/L 09/14/2022 7:28 AM CDT LABORATORY Carbon Dioxide (CO2) 28 22 - 29 mmol/L 09/14/2022 7:28 AM CDT LABORATORY Anion Gap 10 7 - 15 mmol/L 09/14/2022 7:28 AM CDT LABORATORY Urea Nitrogen 33.6(H) 8.0 - 23.0 mg/dL 09/14/2022 7:28 AM CDT LABORATORY Creatinine 0.93 0.51 - 0.95 mg/dL 09/14/2022 7:28 AM CDT LABORATORY Calcium 7.9(L) 8.6 - 10.0 mg/dL 09/14/2022 7:28 AM CDT LABORATORY Glucose 110(H) 70 - 99 mg/dL 09/14/2022 7:28 AM CDT LABORATORY GFR Estimate 70 >60 mL/min/1.7 3m2 09/14/2022 7:28 AM CDT LABORATORY Blood STRUCTURE OF RIGHT HAND / Unknown Venipuncture / Unknown 09/14/2022 6:31 AM CDT 09/14/2022 7:09 AM CDT Katarzyna Hurtado DO LAB - BLOOD ORDERAB LES LABORATORY [facility] Lab [address] [facility] Lab (1st floor, no room number) [place] [address], [facility] [phone] * (ABNORMAL) CBC with platelets (09/14/2022 6:31 AM CDT) WBC Count 9.1 4.0 - 11.0 10e3/uL 09/14/2022 7:32 AM CDT RH LABORATORY RBC Count 3.61(L) 3.80 - 5.20 10e6/uL 09/14/2022 7:32 AM CDT RH LABORATORY Hemoglobin 11.7 11.7 - 15.7 g/dL 09/14/2022 7:32 AM CDT RH LABORATORY Hematocrit 37.1 35.0 - 47.0 % 09/14/2022 7:32 AM CDT RH LABORATORY MCV 103(H) 78 - 100 fL 09/14/2022 7:32 AM CDT RH LABORATORY MCH 32.4 26.5 - 33.0 pg 09/14/2022 7:32 AM CDT RH LABORATORY MCHC 31.5 31.5 - 36.5 g/dL 09/14/2022 7:32 AM CDT RH LABORATORY RDW 15.3(H) 10.0 - 15.0 % 09/14/2022 7:32 AM CDT RH LABORATORY Platelet Count 63(L) 150 - 450 10e3/uL 09/14/2022 7:32 AM CDT [facility] Blood STRUCTURE OF RIGHT HAND / Unknown Venipuncture / Unknown 09/14/2022 6:31 AM CDT 09/14/2022 7:09 AM CDT Miguel Angel Rob MD LAB - BLOOD ORDERABL ES [facility] [address] Lab (1st floor, no room number) [place] [address] [phone] * (ABNORMAL) Magnesium (09/14/2022 6:31 AM CDT) Magnesium 1.2(L) 1.7 - 2.3 mg/dL 09/14/2022 7:28 AM CDT [facility] Blood STRUCTURE OF RIGHT HAND / Unknown Venipuncture / Unknown 09/14/2022 6:31 AM CDT 09/14/2022 7:09 AM CDT Miguel Angel Rob MD LAB - BLOOD ORDERABL ES LABORATORY [facility] [address] Lab (1st floor, no room number) [place] [address], [facility] [phone] * (ABNORMAL) Glucose by meter (09/14/2022 3:00 AM CDT) GLUCOSE BY METER POCT 109(H) 70 - 99 mg/dL 09/14/2022 3:07 AM CDT [facility] POC Blood, Capillary BLOOD SPECIMEN / Unknown 09/14/2022 3:00 AM CDT 09/14/2022 3:07 AM CDT Miguel Angel HEMPHILL - BEAKER POCT Performing Organization Address City/[facility]/ZIP Co de Phone Number LABORATORY [facility] [address] Lab (1st floor, no room number) [place] [address], [facility] [phone] * (ABNORMAL) Glucose by meter (09/13/2022 9:57 PM CDT) GLUCOSE BY METER POCT 108(H) 70 - 99 mg/dL 09/13/2022 10:03 PM CDT [facility] POC Blood, Capillary BLOOD SPECIMEN / Unknown 09/13/2022 9:57 PM CDT 09/13/2022 10:03 PM CDT Miguel Angel HEMPHILL - BEAKER POCT LABORATORY [facility] [address] Lab (1st floor, no room number) [place] [address], [facility] [phone] * (ABNORMAL) Glucose by meter (09/13/2022 5:00 PM CDT) GLUCOSE BY METER POCT 134(H) 70 - 99 mg/dL 09/13/2022 5:09 PM CDT [facility] POC Blood, Capillary BLOOD SPECIMEN / Unknown 09/13/2022 5:00 PM CDT 09/13/2022 5:09 PM CDT Miguel Angel HEMPHILL - KATI POCT LABORATORY [facility] Lab [address] Lab (1st floor, no room number) [place] [phone], [facility] [phone] * (ABNORMAL) Glucose by meter (09/13/2022 11:39 AM CDT) GLUCOSE BY METER POCT 117(H) 70 - 99 mg/dL 09/13/2022 11:47 AM CDT LABORATORY POC Blood, Capillary BLOOD SPECIMEN / Unknown 09/13/2022 11:39 AM CDT 09/13/2022 11:47 AM CDT Miguel Angel HEMPHILL - KATI POCT Performing Organization Address City/[facility]/ZIP Co de Phone Number LABORATORY [facility] [address] Lab (1st floor, no room number) [place] [address], [facility] [phone] * (ABNORMAL) Magnesium (09/13/2022 8:11 AM CDT) Magnesium 1.6(L) 1.7 - 2.3 mg/dL 09/13/2022 9:30 AM CDT LABORATORY Blood STRUCTURE OF RIGHT [place] / Unknown Venipuncture / Unknown 09/13/2022 8:11 AM CDT 09/13/2022 8:21 AM CDT aJnett Connolly MD LAB - BLOOD ORDERAB LES [facility] [address] Lab (1st floor, no room number) [place] [address], [facility] [phone] * (ABNORMAL) Basic metabolic panel (09/13/2022 8:11 AM CDT) Sodium 148(H) 136 - 145 mmol/L 09/13/2022 8:44 AM CDT LABORATORY Potassium 4.0 3.4 - 5.3 mmol/L 09/13/2022 8:44 AM CDT LABORATORY Chloride 108(H) 98 - 107 mmol/L 09/13/2022 8:44 AM CDT LABORATORY Carbon Dioxide (CO2) 31(H) 22 - 29 mmol/L 09/13/2022 8:44 AM CDT LABORATORY Anion Gap 9 7 - 15 mmol/L 09/13/2022 8:44 AM CDT LABORATORY Urea Nitrogen 47.9(H) 8.0 - 23.0 mg/dL 09/13/2022 8:44 AM CDT LABORATORY Creatinine 1.07(H) 0.51 - 0.95 mg/dL 09/13/2022 8:44 AM CDT LABORATORY Calcium 7.8(L) 8.6 - 10.0 mg/dL 09/13/2022 8:44 AM CDT LABORATORY Glucose 109(H) 70 - 99 mg/dL 09/13/2022 8:44 AM CDT LABORATORY GFR Estimate 60(L) >60 mL/min/1.7 3m2 09/13/2022 8:44 AM CDT LABORATORY Blood STRUCTURE OF RIGHT [place] / Unknown Venipuncture / Unknown 09/13/2022 8:11 AM CDT 09/13/2022 8:21 AM CDT Katarzyna Hurtado DO LAB - BLOOD ORDERAB LES LABORATORY [facility] [address] Lab (1st floor, no room number) [place] [address], [facility] [phone] * Glucose by meter (09/13/2022 7:32 AM CDT) GLUCOSE BY METER POCT 90 70 - 99 mg/dL 09/13/2022 7:39 AM CDT LABORATORY POC Blood, Capillary BLOOD SPECIMEN / Unknown 09/13/2022 7:32 AM CDT 09/13/2022 7:39 AM CDT Miguel Angel HEMPHILL - KATI POCT Performing Organization Address [facility]/ZIP Co de Phone Number LABORATORY [facility] [address] Lab (1st floor, no room number) [place] [address], [facility] [phone] * (ABNORMAL) Glucose by meter (09/13/2022 2:21 AM CDT) GLUCOSE BY METER POCT 157(H) 70 - 99 mg/dL 09/13/2022 2:29 AM CDT LABORATORY POC Blood, Capillary BLOOD SPECIMEN / Unknown 09/13/2022 2:21 AM CDT 09/13/2022 2:29 AM CDT Miguel Angel HEMPHILL - KATI POCT Performing Organization Address [facility]/ZIP Co de Phone Number LABORATORY [facility] [address] Lab (1st floor, no room number) [place] [address], [facility] [phone] * Magnesium (09/12/2022 8:03 PM CDT) Magnesium 2.0 1.7 - 2.3 mg/dL 09/12/2022 8:28 PM CDT LABORATORY Blood STRUCTURE OF RIGHT HAND / Unknown Venipuncture / Unknown 09/12/2022 8:03 PM CDT 09/12/2022 8:07 PM CDT Miguel Angel Rob MD LAB - BLOOD ORDERABL ES Performing Organization Address [facility]/ZIP Co de Phone Number [facility] [address] Lab (1st floor, no room number) [place] [address], [place] [phone] * Glucose by meter (09/12/2022 7:42 PM CDT) GLUCOSE BY METER POCT 99 70 - 99 mg/dL 09/12/2022 7:52 PM CDT RH LABORATORY POC Blood, Capillary BLOOD SPECIMEN / Unknown 09/12/2022 7:42 PM CDT 09/12/2022 7:52 PM CDT Miguel Angel Rob MD LAB - BEAKER POCT LABORATORY [facility] [address] Lab (1st floor, no room number) [place] [address], [place] [phone] * (ABNORMAL) Glucose by meter (09/12/2022 4:46 PM CDT) GLUCOSE BY METER POCT 114(H) 70 - 99 mg/dL 09/12/2022 4:53 PM CDT RH LABORATORY POC Blood, Capillary BLOOD SPECIMEN / Unknown 09/12/2022 4:46 PM CDT 09/12/2022 4:53 PM CDT Miguel Angel Rob MD LAB - BEAKER POCT Performing Organization Address City/[facility]/ZIP Co de Phone Number LABORATORY [facility] [address] Lab (1st floor, no room number) [place] [address], [place] [phone] * (ABNORMAL) Glucose by meter (09/12/2022 11:33 AM CDT) GLUCOSE BY METER POCT 129(H) 70 - 99 mg/dL 09/12/2022 11:40 AM CDT RH LABORATORY POC Blood, Capillary BLOOD SPECIMEN / Unknown 09/12/2022 11:33 AM CDT 09/12/2022 11:40 AM CDT Miguel Angel Rob MD LAB - BEAKER POCT LABORATORY [facility] [address] Lab (1st floor, no room number) [place] [address], [facility] [phone] * (ABNORMAL) Magnesium (09/12/2022 10:46 AM CDT) [facility] Magnesium 1.3(L) 1.7 - 2.3 mg/dL 09/12/2022 12:08 PM CDT LABORATORY Blood STRUCTURE OF LEFT HAND / Unknown Venipuncture / Unknown 09/12/2022 10:46 AM CDT 09/12/2022 10:51 AM CDT Miguel Angel Rob MD LAB - BLOOD ORDERABL ES LABORATORY [facility] [address] Lab (1st floor, no room number) [place] [address], [facility] [phone] * (ABNORMAL) Basic metabolic panel (09/12/2022 10:46 AM CDT) Pathologist [facility] Sodium 150(H) 136 - 145 mmol/L 09/12/2022 11:14 AM CDT LABORATORY Potassium 4.1 3.4 - 5.3 mmol/L 09/12/2022 11:14 AM CDT LABORATORY Chloride 109(H) 98 - 107 mmol/L 09/12/2022 11:14 AM CDT LABORATORY Carbon Dioxide (CO2) 30(H) 22 - 29 mmol/L 09/12/2022 11:14 AM CDT LABORATORY Anion Gap 11 7 - 15 mmol/L 09/12/2022 11:14 AM CDT LABORATORY Urea Nitrogen 75.9(H) 8.0 - 23.0 mg/dL 09/12/2022 11:14 AM CDT LABORATORY Creatinine 1.33(H) 0.51 - 0.95 mg/dL 09/12/2022 11:14 AM CDT LABORATORY Calcium 7.0(L) 8.6 - 10.0 mg/dL 09/12/2022 11:14 AM CDT LABORATORY Glucose 133(H) 70 - 99 mg/dL 09/12/2022 11:14 AM CDT LABORATORY GFR Estimate 46(L) >60 mL/min/1.7 3m2 09/12/2022 11:14 AM CDT RH LABORATORY Blood STRUCTURE OF LEFT HAND / Unknown Venipuncture / Unknown 09/12/2022 10:46 AM CDT 09/12/2022 10:51 AM CDT Katarzyna Hurtado DO LAB - BLOOD ORDERAB LES LABORATORY [facility] [address] Lab (1st floor, no room number) [place] [address], [place] [phone] * (ABNORMAL) Glucose by meter (09/12/2022 7:33 AM CDT) GLUCOSE BY METER POCT 106(H) 70 - 99 mg/dL 09/12/2022 7:40 AM CDT LABORATORY POC Blood, Capillary BLOOD SPECIMEN / Unknown 09/12/2022 7:33 AM CDT 09/12/2022 7:40 AM CDT Miguel Angel HEMPHILL - Go Try It OnAKER POCT LABORATORY [facility] [address] Lab (1st floor, no room number) [place] [address], [place] [phone] * (ABNORMAL) Glucose by meter (09/12/2022 1:35 AM CDT) GLUCOSE BY METER POCT 135(H) 70 - 99 mg/dL 09/12/2022 1:42 AM CDT LABORATORY POC Comment:Dr/RN Notified Blood, Capillary BLOOD SPECIMEN / Unknown 09/12/2022 1:35 AM CDT 09/12/2022 1:42 AM CDT Miguel Angel HEMPHILL - BEAKER POCT LABORATORY [facility] [address] Lab (1st floor, no room number) [place] [address], [facility] [phone] * (ABNORMAL) Glucose by meter (09/11/2022 10:06 PM CDT) GLUCOSE BY METER POCT 143(H) 70 - 99 mg/dL 09/11/2022 10:13 PM CDT RH LABORATORY POC Blood, Capillary BLOOD SPECIMEN / Unknown 09/11/2022 10:06 PM CDT 09/11/2022 10:13 PM CDT Miguel Angel Rob MD LAB - BEAKER POCT LABORATORY [facility] [address] Lab (1st floor, no room number) [place] [address], [facility] [phone] * Magnesium (09/11/2022 9:56 PM CDT) Magnesium 2.2 1.7 - 2.3 mg/dL 09/11/2022 10:37 PM CDT LABORATORY Blood STRUCTURE OF LEFT HAND / Unknown Venipuncture / Unknown 09/11/2022 9:56 PM CDT 09/11/2022 10:06 PM CDT Miguel Angel Rob MD LAB - BLOOD ORDERABL ES [facility] [address] [facility], no room number) [place] [address], [place] [phone] * (ABNORMAL) Glucose by meter (09/11/2022 5:42 PM CDT) GLUCOSE BY METER POCT 156(H) 70 - 99 mg/dL 09/11/2022 5:49 PM CDT RH LABORATORY POC Blood, Capillary BLOOD SPECIMEN / Unknown 09/11/2022 5:42 PM CDT 09/11/2022 5:49 PM CDT Miguel Angel Rob MD LAB - BEAKER POCT LABORATORY POC [facility] [address] Lab (1st floor, no room number) [place] [id number], [place] [phone] * (ABNORMAL) Magnesium (09/11/2022 3:06 PM CDT) Magnesium 1.5(L) 1.7 - 2.3 mg/dL 09/11/2022 3:42 PM CDT LABORATORY Blood STRUCTURE OF LEFT HAND / Unknown Venipuncture / Unknown 09/11/2022 3:06 PM CDT 09/11/2022 3:09 PM CDT Miguel Angel Rob MD LAB - BLOOD ORDERABL ES Performing Organization Address City/[facility]/ZIP Co de Phone Number [facility] [address] Lab (1st floor, no room number) [place] [id number], [place] [phone] * (ABNORMAL) Glucose by meter (09/11/2022 11:40 AM CDT) GLUCOSE BY METER POCT 171(H) 70 - 99 mg/dL 09/11/2022 11:47 AM CDT LABORATORY POC Comment:Dr/RN Notified Blood, Capillary BLOOD SPECIMEN / Unknown 09/11/2022 11:40 AM CDT 09/11/2022 11:47 AM CDT Miguel Angel Rob MD LAB - BEAKER POCT LABORATORY [facility] [address] Lab (1st floor, no room number) [place] [address], [place] [phone] * US Abdomen Limited (09/11/2022 8:12 AM CDT) Anatomical Region Laterality Modality Abdomen/Pelvis Ultrasound Impressions 09/11/2022 9:30 AM CDT IMPRESSION: The size of the gallbladder is similar to the 2018 comparison study and this is likely chronic. KATARZYNA LOGAN MD Narrative 09/11/2022 9:30 AM CDT US ABDOMEN LIMITED 09/11/2022 8:12 AM CLINICAL HISTORY: Sepsis, distended gallbladder. TECHNIQUE: Limited abdominal ultrasound. COMPARISON: Ultrasound from April 03, 2017, CT scan from September 10, 2022. FINDINGS: GALLBLADDER: Gallbladder is elongated but not abnormal by short axis criteria. Some sludge is present, no shadowing stones. No pathologic wall thickening demonstrated. BILE DUCTS: Previously seen polyp not seen today. The common duct measures 6 mm. LIVER: Unremarkable where seen. RIGHT KIDNEY: No hydronephrosis. PANCREAS: The visualized portions of the pancreas are normal. No ascites. Procedure Note Katarzyna Logan MD - 09/11/2022 US ABDOMEN LIMITED 09/11/2022 8:12 AM CLINICAL HISTORY: Sepsis, distended gallbladder. TECHNIQUE: Limited abdominal ultrasound. COMPARISON: Ultrasound from April 03, 2017, CT scan from September 10, 2022. FINDINGS: GALLBLADDER: Gallbladder is elongated but not abnormal by short axis criteria. Some sludge is present, no shadowing stones. No pathologic wall thickening demonstrated. BILE DUCTS: Previously seen polyp not seen today. The common duct measures 6 mm. LIVER: Unremarkable where seen. RIGHT KIDNEY: No hydronephrosis. PANCREAS: The visualized portions of the pancreas are normal. No ascites. IMPRESSION: The size of the gallbladder is similar to the 2018 comparison study and this is likely chronic. KATARZYNA LOGAN MD Katarzyna Hurtado DO [facility] US ORDERABLES * (ABNORMAL) Glucose by meter (09/11/2022 8:10 AM CDT) GLUCOSE BY METER POCT 132(H) 70 - 99 mg/dL 09/11/2022 8:18 AM CDT RH LABORATORY POC Comment:Dr/RN Notified Blood, Capillary BLOOD SPECIMEN / Unknown 09/11/2022 8:10 AM CDT 09/11/2022 8:18 AM CDT Miguel Angel Rob MD LAB - BEAKER POCT RH LABORATORY POC [facility] [address] Lab (1st floor, no room number) [place] [address], [facility] [phone] * (ABNORMAL) Basic metabolic panel (09/11/2022 7:30 AM CDT) Sodium 146(H) 136 - 145 mmol/L 09/11/2022 8:18 AM CDT LABORATORY Potassium 3.8 3.4 - 5.3 mmol/L 09/11/2022 8:18 AM CDT LABORATORY Chloride 107 98 - 107 mmol/L 09/11/2022 8:18 AM CDT LABORATORY Carbon Dioxide (CO2) 24 22 - 29 mmol/L 09/11/2022 8:18 AM CDT LABORATORY Anion Gap 15 7 - 15 mmol/L 09/11/2022 8:18 AM CDT LABORATORY Urea Nitrogen 134.6(H) 8.0 - 23.0 mg/dL 09/11/2022 8:18 AM CDT LABORATORY Creatinine 3.57(H) 0.51 - 0.95 mg/dL 09/11/2022 8:18 AM CDT LABORATORY Calcium 6.9(L) 8.6 - 10.0 mg/dL 09/11/2022 8:18 AM CDT LABORATORY Glucose 147(H) 70 - 99 mg/dL 09/11/2022 8:18 AM CDT LABORATORY GFR Estimate 14(L) >60 mL/min/1.7 3m2 09/11/2022 8:18 AM CDT LABORATORY Blood STRUCTURE OF LEFT HAND / Unknown Venipuncture / Unknown 09/11/2022 7:30 AM CDT 09/11/2022 7:34 AM CDT Katarzyna Hurtado DO LAB - BLOOD ORDERAB LES RH LABORATORY [facility] [address] Lab (1st floor, no room number) [place] [address], [place] [phone] * (ABNORMAL) Magnesium (09/11/2022 7:30 AM CDT) Magnesium 1.1(L) 1.7 - 2.3 mg/dL 09/11/2022 8:09 AM CDT RH LABORATORY Blood STRUCTURE OF LEFT HAND / Unknown Venipuncture / Unknown 09/11/2022 7:30 AM CDT 09/11/2022 7:34 AM CDT Katarzyna Hurtado DO LAB - BLOOD ORDERAB LES LABORATORY [facility] [address] Lab (1st floor, no room number) [place] [address], [facility] [phone] * (ABNORMAL) CK total (09/11/2022 7:30 AM CDT) CK 194(H) 26 - 192 U/L 09/11/2022 8:09 AM CDT RH LABORATORY Blood STRUCTURE OF LEFT HAND / Unknown Venipuncture / Unknown 09/11/2022 7:30 AM CDT 09/11/2022 7:34 AM CDT Yudith Dillard MD LAB - BLOOD ORDERABL ES LABORATORY [facility] [address] Lab (1st floor, no room number) [place] [address], [facility] [phone] * (ABNORMAL) Hepatic function panel (09/11/2022 7:30 AM CDT) Protein Total 5.7(L) 6.4 - 8.3 g/dL 09/11/2022 8:09 AM CDT RH LABORATORY Albumin 2.8(L) 3.5 - 5.2 g/dL 09/11/2022 8:09 AM CDT RH LABORATORY Bilirubin Total 0.2 <=1.2 mg/dL 09/11/2022 8:09 AM CDT RH LABORATORY Alkaline Phosphatase 58 35 - 104 U/L 09/11/2022 8:09 AM CDT RH LABORATORY AST 13 0 - 45 U/L 09/11/2022 8:09 AM CDT RH LABORATORY Comment:Reference intervals for this test were updated on 08/28/2022 to more accurately reflect our healthy population. There may be differences in the flagging of prior results with similar values performed with this method. Interpretation of those prior results can be made in the context of the updated reference intervals. ALT 9 0 - 50 U/L 09/11/2022 8:09 AM CDT RH LABORATORY Comment:Reference intervals for this test were updated on 08/28/2022 to more accurately reflect our healthy population. There may be differences in the flagging of prior results with similar values performed with this method. Interpretation of those prior results can be made in the context of the updated reference intervals. Bilirubin Direct <0.20 0.00 - 0.30 mg/dL 09/11/2022 8:09 AM CDT RH LABORATORY Blood STRUCTURE OF LEFT HAND / Unknown Venipuncture / Unknown 09/11/2022 7:30 AM CDT 09/11/2022 7:34 AM CDT Katarzyna Hurtado DO LAB - BLOOD ORDERAB LES RH LABORATORY [facility] [address] [facility] [address] [facility] Lab (1st floor, no room number) [place] [address], [facility] [phone] * (ABNORMAL) CBC with platelets (09/11/2022 7:30 AM CDT) WBC Count 9.0 4.0 - 11.0 10e3/uL 09/11/2022 7:38 AM CDT RH LABORATORY RBC Count 3.53(L) 3.80 - 5.20 10e6/uL 09/11/2022 7:38 AM CDT RH LABORATORY Hemoglobin 11.6(L) 11.7 - 15.7 g/dL 09/11/2022 7:38 AM CDT RH LABORATORY Hematocrit 34.1(L) 35.0 - 47.0 % 09/11/2022 7:38 AM CDT RH LABORATORY MCV 97 78 - 100 fL 09/11/2022 7:38 AM CDT RH LABORATORY MCH 32.9 26.5 - 33.0 pg 09/11/2022 7:38 AM CDT RH LABORATORY MCHC 34.0 31.5 - 36.5 g/dL 09/11/2022 7:38 AM CDT RH LABORATORY RDW 15.3(H) 10.0 - 15.0 % 09/11/2022 7:38 AM CDT RH LABORATORY Platelet Count 60(L) 150 - 450 10e3/uL 09/11/2022 7:38 AM CDT RH LABORATORY Blood STRUCTURE OF LEFT HAND / Unknown Venipuncture / Unknown 09/11/2022 7:30 AM CDT 09/11/2022 7:34 AM CDT Katarzyna Hurtado DO LAB - BLOOD ORDERAB LES [facility] [address] Lab (1st floor, no room number) [place] [id number], [place] [phone] * (ABNORMAL) Glucose by meter (09/11/2022 3:05 AM CDT) GLUCOSE BY METER POCT 151(H) 70 - 99 mg/dL 09/11/2022 3:11 AM CDT LABORATORY POC Blood, Capillary BLOOD SPECIMEN / Unknown 09/11/2022 3:05 AM CDT 09/11/2022 3:11 AM CDT Miguel Angel Rob MD LAB - BEAKER POCT LABORATORY POC [facility] [address] Lab (1st floor, no room number) [place] [address], [place] [phone] * (ABNORMAL) Glucose by meter (09/11/2022 1:56 AM CDT) GLUCOSE BY METER POCT 169(H) 70 - 99 mg/dL 09/11/2022 2:04 AM CDT RH LABORATORY POC Blood, Capillary BLOOD SPECIMEN / Unknown 09/11/2022 1:56 AM CDT 09/11/2022 2:04 AM CDT Miguel Angel Rob MD LAB - BEAKER POCT LABORATORY [facility] [address] Lab (1st floor, no room number) [place] [address], [facility] [phone] * (ABNORMAL) Glucose by meter (09/10/2022 11:56 PM CDT) GLUCOSE BY METER POCT 185(H) 70 - 99 mg/dL 09/11/2022 12:02 AM CDT RH LABORATORY POC Blood, Capillary BLOOD SPECIMEN / Unknown 09/10/2022 11:56 PM CDT 09/11/2022 12:02 AM CDT Miguel Angel Rob MD LAB - BEAKER POCT Performing Organization Address [facility]/ZIP Co de Phone Number LABORATORY [facility] [address] Lab (1st floor, no room number) [place] [address], [place] [phone] * (ABNORMAL) Glucose by meter (09/10/2022 9:58 PM CDT) GLUCOSE BY METER POCT 148(H) 70 - 99 mg/dL 09/10/2022 10:14 PM CDT LABORATORY POC Blood, Capillary BLOOD SPECIMEN / Unknown 09/10/2022 9:58 PM CDT 09/10/2022 10:14 PM CDT Miguel Angel Rbo MD LAB - BEAKER POCT LABORATORY [facility] [address] Lab (1st floor, no room number) [place] [address], [place] [phone] * (ABNORMAL) Glucose by meter (09/10/2022 8:03 PM CDT) GLUCOSE BY METER POCT 160(H) 70 - 99 mg/dL 09/10/2022 8:09 PM CDT RH LABORATORY POC Blood, Capillary BLOOD SPECIMEN / Unknown 09/10/2022 8:03 PM CDT 09/10/2022 8:09 PM CDT Miguel Angel Rob MD LAB - BEAKER POCT LABORATORY [facility] [address] Lab (1st floor, no room number) [place] [address], [place] [phone] * (ABNORMAL) Glucose by meter (09/10/2022 3:55 PM CDT) GLUCOSE BY METER POCT 128(H) 70 - 99 mg/dL 09/10/2022 4:02 PM CDT LABORATORY POC Blood, Capillary BLOOD SPECIMEN / Unknown 09/10/2022 3:55 PM CDT 09/10/2022 4:02 PM CDT Miguel Angel Rob MD LAB - BEAKER POCT LABORATORY [facility] [address] Lab (1st floor, no room number) [place] [address], [place] [phone] * (ABNORMAL) Glucose by meter (09/10/2022 12:14 PM CDT) GLUCOSE BY METER POCT 122(H) 70 - 99 mg/dL 09/10/2022 12:21 PM CDT RH LABORATORY POC Comment:Dr/RN Notified Blood, Capillary BLOOD SPECIMEN / Unknown 09/10/2022 12:14 PM CDT 09/10/2022 12:21 PM CDT Miguel Angel HEMPHILL - BEAKER POCT Performing Organization Address [facility]/ZIP Co de Phone Number LABORATORY [facility] [address] Lab (1st floor, no room number) [place] [id number], [facility] [phone] * (ABNORMAL) Glucose by meter (09/10/2022 7:42 AM CDT) GLUCOSE BY METER POCT 113(H) 70 - 99 mg/dL 09/10/2022 7:49 AM CDT LABORATORY POC Comment:Dr/RN Notified Blood, Capillary BLOOD SPECIMEN / Unknown 09/10/2022 7:42 AM CDT 09/10/2022 7:49 AM CDT Miguel Angel HEMPHILL - BEAKER POCT Performing Organization Address [facility] Co de Phone Number LABORATORY [facility] [address] [facility] Lab (1st floor, no room number) [place] [phone], [facility] [phone] * Fractional Excretion of Sodium (09/10/2022 6:13 AM CDT) Creatinine Urine mg/dL 87.0 mg/dL 09/10/2022 7:16 AM CDT LABORATORY Sodium Urine mmol/L 81 mmol/L 09/10/2022 7:16 AM CDT LABORATORY %FENA 5.7 % 09/10/2022 7:16 AM CDT LABORATORY Comment: Adult: ?<1 percent Indicates prerenal azotemia >3 percent Suggests acute tubular necrosis Neonates: <2.5 percent Suggest prerenal azotemia >2.5 percent Suggest acute tubular necrosis Urine URINE SPECIMEN OBTAINED BY CLEAN CATCH PROCEDURE / Unknown Non-blood Collection / Unknown 09/10/2022 6:13 AM CDT 09/10/2022 6:21 AM CDT Miguel Angel Rob MD LAB - URINE ORDERABL ES Performing Organization Address City/[facility]/ZIP Co de Phone Number [facility] [address] Lab (1st floor, no room number) [place] [address], [facility] [phone] * (ABNORMAL) Basic metabolic panel (09/10/2022 5:34 AM CDT) Pathologist [facility] Sodium 143 136 - 145 mmol/L 09/10/2022 6:18 AM CDT LABORATORY Potassium 4.8 3.4 - 5.3 mmol/L 09/10/2022 6:18 AM CDT LABORATORY Chloride 101 98 - 107 mmol/L 09/10/2022 6:18 AM CDT LABORATORY Carbon Dioxide (CO2) 14(L) 22 - 29 mmol/L 09/10/2022 6:18 AM CDT LABORATORY Anion Gap 28(H) 7 - 15 mmol/L 09/10/2022 6:18 AM CDT LABORATORY Urea Nitrogen 181.4(H) 8.0 - 23.0 mg/dL 09/10/2022 6:18 AM CDT LABORATORY Creatinine 8.81(H) 0.51 - 0.95 mg/dL 09/10/2022 6:18 AM CDT LABORATORY Calcium 7.6(L) 8.6 - 10.0 mg/dL 09/10/2022 6:18 AM CDT LABORATORY Glucose 119(H) 70 - 99 mg/dL 09/10/2022 6:18 AM CDT LABORATORY GFR Estimate 5(L) >60 mL/min/1.7 3m2 09/10/2022 6:18 AM CDT LABORATORY Blood STRUCTURE OF LEFT UPPER LIMB / Unknown Venipuncture / Unknown 09/10/2022 5:34 AM CDT 09/10/2022 5:44 AM CDT Katarzyna Hurtado DO LAB - BLOOD ORDERAB LES LABORATORY [facility] [address] [facility] Lab (1st floor, no room number) [place] [address], [facility] [phone] * (ABNORMAL) Phosphorus (09/10/2022 5:34 AM CDT) Phosphorus 11.1(H) 2.5 - 4.5 mg/dL 09/10/2022 6:11 AM CDT RH LABORATORY Blood STRUCTURE OF LEFT UPPER LIMB / Unknown Venipuncture / Unknown 09/10/2022 5:34 AM CDT 09/10/2022 5:44 AM CDT Miguel Angel Rob MD LAB - BLOOD ORDERABL ES Performing Organization Address City/[facility]/ZIP Co de Phone Number [facility] [address] Lab (1st floor, no room number) [place] [address], [facility] [phone] * (ABNORMAL) Magnesium (09/10/2022 5:34 AM CDT) Magnesium 1.6(L) 1.7 - 2.3 mg/dL 09/10/2022 6:07 AM CDT [facility] Blood STRUCTURE OF LEFT UPPER LIMB / Unknown Venipuncture / Unknown 09/10/2022 5:34 AM CDT 09/10/2022 5:44 AM CDT Miguel Angel Rob MD LAB - BLOOD ORDERABL ES Performing Organization Address [facility]/ZIP Co de Phone Number [facility] [address] Lab (1st floor, no room number) [place] [address], [facility] [phone] * (ABNORMAL) CBC with platelets (09/10/2022 5:34 AM CDT) WBC Count 13.5(H) 4.0 - 11.0 10e3/uL 09/10/2022 6:02 AM CDT [facility] RBC Count 3.96 3.80 - 5.20 10e6/uL 09/10/2022 6:02 AM CDT [facility] Hemoglobin 12.9 11.7 - 15.7 g/dL 09/10/2022 6:02 AM CDT [facility] Hematocrit 37.5 35.0 - 47.0 % 09/10/2022 6:02 AM CDT [facility] MCV 95 78 - 100 fL 09/10/2022 6:02 AM CDT [facility] MCH 32.6 26.5 - 33.0 pg 09/10/2022 6:02 AM CDT [facility] MCHC 34.4 31.5 - 36.5 g/dL 09/10/2022 6:02 AM CDT [facility] RDW 15.2(H) 10.0 - 15.0 % 09/10/2022 6:02 AM CDT [facility] Platelet Count 61(L) 150 - 450 10e3/uL 09/10/2022 6:02 AM CDT [facility] Blood STRUCTURE OF LEFT UPPER LIMB / Unknown Venipuncture / Unknown 09/10/2022 5:34 AM CDT 09/10/2022 5:44 AM CDT Katarzyna Hurtado DO LAB - BLOOD ORDERAB L[facility] LAB[facility] [address] Lab (1st floor, no room number) [place] [phone], [facility] [phone] * Glucose by meter (09/10/2022 4:05 AM CDT) GLUCOSE BY METER POCT 98 70 - 99 mg/dL 09/10/2022 4:12 AM CDT LABORATORY POC Blood, Capillary BLOOD SPECIMEN / Unknown 09/10/2022 4:05 AM CDT 09/10/2022 4:12 AM CDT Miguel Angel Rob MD LAB - BEAKER POCT LABORATORY POC [facility] [address] Lab (1st floor, no room number) [place], [place] [address], [facility] [phone] * (ABNORMAL) Glucose by meter (09/10/2022 2:07 AM CDT) GLUCOSE BY METER POCT 121(H) 70 - 99 mg/dL 09/10/2022 2:14 AM CDT [facility] LAB[facility]AT[facility] POC Blood, Capillary BLOOD SPECIMEN / Unknown 09/10/2022 2:07 AM CDT 09/10/2022 2:14 AM CDT Miguel Angel Rob MD LAB - [facility] POCT [facility] LABORATORY [facility] [address] Lab (1st floor, no room number) [place] [address], [facility] [phone] * CT Abdomen Pelvis w/o Contrast (09/10/2022 1:42 AM CDT) Anatomical Region Laterality Modality Abdomen/Pelvis, SUBRAD CT MILLICENT DY, UMP CT ABDOMEN PELVIS, RAD CT Computed Tomography 09/10/2022 1:42 AM CDT Impressions 09/10/2022 1:58 AM CDT IMPRESSION: 1. ??No urinary tract calculi or obstruction. Normal urinary bladder. Anteverted uterus with an exophytic fundal fibroid on the left. 2. ??The gallbladder is distended. No calcified gallstones, biliary dilatation or adjacent inflammation. No discrete hepatic lesion. 3. ??Distal colonic mild diverticulosis. No acute inflammatory changes, mechanical obstruction or free gas. 4. ??Postoperative changes of L3-L5 instrumented effusion anteriorly and posteriorly. Degenerative spine and joints of the pelvis. Narrative 09/10/2022 1:58 AM CDT EXAM: CT ABDOMEN PELVIS W/O CONTRAST LOCATION: [facility] DATE: 09/10/2022 INDICATION: Hydronephrosis. Evaluate for obstructive urinary tract stones. COMPARISON: None. TECHNIQUE: CT scan of the abdomen and pelvis was performed without IV contrast. Multiplanar reformats were obtained. Dose reduction techniques were used. CONTRAST: None. FINDINGS: LOWER CHEST: Dependent platelike atelectasis in the lower lobes. No pleural effusion on either side. Normal cardiac size. No pericardial effusion. HEPATOBILIARY: The gallbladder is distended. No stones, biliary dilatation or adjacent inflammation. No discrete hepatic lesion. PANCREAS: Normal. SPLEEN: Normal. ADRENAL GLANDS: Normal. KIDNEYS/BLADDER: No urinary tract calculi. Both kidneys are negative for hydronephrosis or hydroureter. Normal urinary bladder. BOWEL: Distal colonic diverticulosis, without acute inflammation. Formed stool material within normal caliber colon. No mechanical obstruction, free gas or free fluid. LYMPH NODES: No suspicious abdominopelvic adenopathy. VASCULATURE: Mildly atherosclerotic normal caliber abdominal aorta measuring 1.8 x 1.8 cm (image 84, series 3). Normal caliber IVC. PELVIC ORGANS: Vascular calcifications. Distal colonic mild diverticulosis without acute inflammation. No adenopathy or free fluid. Anteverted uterus, with a small exophytic fibroid at the fundus on the left. MUSCULOSKELETAL: Postoperative changes of L3-L5 instrumented fusion anteriorly and posteriorly. Degenerative spine and joints of the pelvis. Procedure Note Federico Tavarez MD - 09/10/2022 EXAM: CT ABDOMEN PELVIS W/O CONTRAST LOCATION: [facility] DATE: 09/10/2022 INDICATION: Hydronephrosis. Evaluate for obstructive urinary tractstones. COMPARISON: None. TECHNIQUE: CT scan of the abdomen and pelvis was performed without IVcontrast. Multiplanar reformats were obtained. Dose reduction techniqueswere used. CONTRAST: None. FINDINGS: LOWER CHEST: Dependent platelike atelectasis in the lower lobes. Nopleural effusion on either side. Normal cardiac size. No pericardialeffusion. HEPATOBILIARY: The gallbladder is distended. No stones, biliary dilatationor adjacent inflammation. No discrete hepatic lesion. PANCREAS: Normal. SPLEEN: Normal. ADRENAL GLANDS: Normal. KIDNEYS/BLADDER: No urinary tract calculi. Both kidneys are negative forhydronephrosis or hydroureter. Normal urinary bladder. BOWEL: Distal colonic diverticulosis, without acute inflammation. Formedstool material within normal caliber colon. No mechanical obstruction,free gas or free fluid. LYMPH NODES: No suspicious abdominopelvic adenopathy. VASCULATURE: Mildly atherosclerotic normal caliber abdominal aortameasuring 1.8 x 1.8 cm (image 84, series 3). Normal caliber IVC. PELVIC ORGANS: Vascular calcifications. Distal colonic mild diverticulosiswithout acute inflammation. No adenopathy or free fluid. Anteverteduterus, with a small exophytic fibroid at the fundus on the left. MUSCULOSKELETAL: Postoperative changes of L3-L5 instrumented fusionanteriorly and posteriorly. Degenerative spine and joints of the pelvis. IMPRESSION: 1. No urinary tract calculi or obstruction. Normal urinary bladder.Anteverted uterus with an exophytic fundal fibroid on the left. 2. The gallbladder is distended. No calcified gallstones, biliarydilatation or adjacent inflammation. No discrete hepatic lesion. 3. Distal colonic mild diverticulosis. No acute inflammatory changes,mechanical obstruction or free gas. 4. Postoperative changes of L3-L5 instrumented effusion anteriorly andposteriorly. Degenerative spine and joints of the pelvis. Miguel Angel Rob MD IMG CT ORDERABLES * (ABNORMAL) Blood gas venous and oxyhgb (09/10/2022 12:55 AM CDT) pH Venous 7.25(L) 7.32 - 7.43 09/10/2022 1:07 AM CDT [facility] pCO2 Venous 44 40 - 50 mm Hg 09/10/2022 1:07 AM CDT [facility] pO2 Venous 27 25 - 47 mm Hg 09/10/2022 1:07 AM CDT [facility] Bicarbonate Venous 19(L) 21 - 28 mmol/L 09/10/2022 1:07 AM CDT [facility] FIO2 30 ENEIDA 09/10/2022 1:07 AM CDT [facility] Oxyhemoglobin Venous 37(L) 70 - 75 % 09/10/2022 1:07 AM CDT [facility] Base Excess/Deficit Venous -8.2(L) -7.7 - 1.9 mmol/L 09/10/2022 1:07 AM CDT LABORATORY Blood, venous STRUCTURE OF LEFT UPPER LIMB / Unknown Venipuncture / Unknown 09/10/2022 12:55 AM CDT 09/10/2022 1:02 AM CDT Jez Truong MD LAB - BLOOD ORDERABL ES LABORATORY [facility] [address] [facility] ([facility], no room number) [place] [address], [place] [phone] * (ABNORMAL) Glucose by meter (09/10/2022 12:53 AM CDT) GLUCOSE BY METER POCT 138(H) 70 - 99 mg/dL 09/10/2022 1:02 AM CDT LABORATORY POC Blood, venous BLOOD SPECIMEN / Unknown 09/10/2022 12:53 AM CDT 09/10/2022 1:02 AM CDT Miguel Angel Rob MD LAB - [facility] POCT LABORATORY [facility] Lab [address] Lab (1st floor, no room number) [place] [address], [place] [phone] * (ABNORMAL) Glucose by meter (09/09/2022 11:56 PM CDT) GLUCOSE BY METER POCT 126(H) 70 - 99 mg/dL 09/10/2022 12:02 AM CDT LABORATORY POC Blood, venous BLOOD SPECIMEN / Unknown 09/09/2022 11:56 PM CDT 09/10/2022 12:02 AM CDT Miguel Angel Rob MD LAB - [facility] POCT Performing Organization Address City/[facility]/ZIP Co de Phone Number LABORATORY [facility] Lab [address] Lab (1st floor, no room number) [place] [address], [place] [phone] * (ABNORMAL) Procalcitonin (09/09/2022 11:52 PM CDT) Procalcitonin 0.14(H) <0.05 ng/mL 09/10/2022 1:32 AM CDT LABORATORY Comment: Interpretation and Recommendations <0.05 ng/mL Normal Very low risk of bacterial infection. Strongly discourage antibiotics. 0.05-0.24 ng/mL Low risk of systemic infection. Local bacterial infection possible. Assess other clinical features of infection. Discourage antibiotics. 0.25-0.49 ng/mL Possible early systemic infection or localized infection Encourage antibiotics only in correct clinical context. Consider obtaining blood cultures or other relevant cultures. Recheck PCT in 6-12 hours to ensure baseline low level. If repeat PCT is rising, consider early systemic infection and consider starting antibiotics. 0.50-1.99 ng/mL Moderate risk of systemic infection. Recommend antibiotics. Evaluate culture results and clinical features to target antibacterial therapy. Obtain blood cultures and other relevant cultures if not done. If empiric antibiotics were started, recheck PCT in: ? 2 days to guide antibiotic de-escalation. ? Discontinue or de-escalate antibiotics when PCT concentration is <80% of peak or abs PCT <0.5. If empiric antibiotics were NOT started, recheck PCT in: ? 6-24 hours to re-evaluate need for antibiotics. ?? 2.00-9.99 ng/mL High risk for progression to severe sepsis. Strongly recommend initiating or continuing antibiotics. Evaluate culture results and clinical features to target antibacterial therapy. Obtain blood cultures and other relevant cultures if not done. Repeat PCT in 2 days to guide antibiotic de-escalation. Consider de-escalating antibiotics when PCT concentration is <80% of peak or abs PCT < 0.5. Greater than or equal to 10 ng/mL Very high likelihood of severe sepsis or septic shock. Strongly recommend initiating or continuing antibiotics. Evaluate culture results and clinical features to target antibacterial therapy. Obtain blood cultures and other relevant cultures if not done. Repeat PCT in 2 days to guide antibiotic de-escalation. Consider de-escalating antibiotics when PCT concentration is <80% of peak or abs PCT < 1.0. Blood BLOOD SPECIMEN / Unknown Venipuncture / Unknown 09/09/2022 11:52 PM CDT 09/10/2022 12:01 AM CDT Miguel Angel oRb MD LAB - BLOOD ORDERABL ES LABORATORY [facility] Lab [address] [facility] Lab (1st floor, no room number) [place] [address], [facility] [phone] * (ABNORMAL) Basic metabolic panel (BMP) (09/09/2022 11:52 PM CDT) [facility] Sodium 140 136 - 145 mmol/L 09/10/2022 12:36 AM CDT LABORATORY Potassium 4.8 3.4 - 5.3 mmol/L 09/10/2022 12:36 AM CDT LABORATORY Chloride 95(L) 98 - 107 mmol/L 09/10/2022 12:36 AM CDT LABORATORY Carbon Dioxide (CO2) 15(L) 22 - 29 mmol/L 09/10/2022 12:36 AM CDT LABORATORY Anion Gap 30(H) 7 - 15 mmol/L 09/10/2022 12:36 AM CDT LABORATORY Urea Nitrogen 206.9(H) 8.0 - 23.0 mg/dL 09/10/2022 12:36 AM CDT LABORATORY Creatinine 10.48(H) 0.51 - 0.95 mg/dL 09/10/2022 12:36 AM CDT LABORATORY Calcium 8.2(L) 8.6 - 10.0 mg/dL 09/10/2022 12:36 AM CDT LABORATORY Glucose 123(H) 70 - 99 mg/dL 09/10/2022 12:36 AM CDT LABORATORY GFR Estimate 4(L) >60 mL/min/1.7 3m2 09/10/2022 12:36 AM CDT LABORATORY Blood BLOOD SPECIMEN / Unknown Venipuncture / Unknown 09/09/2022 11:52 PM CDT 09/10/2022 12:01 AM CDT Jez Truong MD LAB - BLOOD ORDERABL ES LABORATORY [facility] Lab [address] Lab (1st floor, no room number) [place] [address], [facility] [phone] * Ethylene Glycol (09/09/2022 11:52 PM CDT) See Scanned Result ETHYLENE GLYCOL-Scann ed 09/22/2022 12:51 PM CDT [facility] LABORAT[facility] Blood BLOOD SPECIMEN / Unknown Venipuncture / Unknown 09/09/2022 11:52 PM CDT 09/10/2022 12:02 AM CDT Jez Truong MD LAB - BLOOD ORDERABL ES Performing Organization Address City/[facility]/ZIP Co de Phone Number [facility] LABORATORY [address] [facility]. [place], [place] [address] [phone] * Volatiles Screen (09/09/2022 11:52 PM CDT) See Scanned Result VOLATILES SCREEN-Scanne d 09/22/2022 12:50 PM CDT [facility] Blood BLOOD SPECIMEN / Unknown Venipuncture / Unknown 09/09/2022 11:52 PM CDT 09/10/2022 12:02 AM CDT Jez Truong MD LAB - BLOOD ORDERABL ES Performing Organization Address [facility] Co de Phone Number [facility] [address] [facility]. [address] [phone] * CT Cervical Spine w/o Contrast (09/09/2022 11:43 PM CDT) Anatomical Region Laterality Modality Spine, SUBRAD CT NEURO, SUBR AD CT NEURO, UMP CT SPINE, RAD CT Computed Tomography 09/09/2022 11:4 3 PM CDT Impressions 09/10/2022 12:22 AM CDT IMPRESSION: HEAD CT: 1. ??Lobulated 24 x 16 x 16 mm (AP x TR x CC) hyperdense focus along the posterior right cingulate gyrus. This is consistent with the patient's history of cavernoma. This overall appears less conspicuous than on 09/18/2021, where there was superimposed hemorrhage. 2. ??Otherwise unremarkable. CERVICAL SPINE CT: 1. ??No CT evidence for acute fracture or post traumatic subluxation. 2. ??Solid fusion from C4 through C7. 3. ??Relatively severe bilateral neural foraminal narrowing at C3-C4. Exam discussed with Dr. Truong at 12:15 AM Narrative 09/10/2022 12:22 AM CDT EXAM: CT HEAD W/O CONTRAST, CT CERVICAL SPINE W/O CONTRAST LOCATION: [facility] DATE: 09/09/2022 INDICATION: Generalized weakness COMPARISON: 09/18/2021 TECHNIQUE: 1) Routine CT Head without IV contrast. Multiplanar reformats. Dose reduction techniques were used. 2) Routine CT Cervical Spine without IV contrast. Multiplanar reformats. Dose reduction techniques were used. FINDINGS: HEAD CT: INTRACRANIAL CONTENTS: Lobulated 24 x 16 x 16 mm (AP by TR by CC) hyperdense focus along the posterior right cingulate gyrus. This is consistent with the patient's history of cavernoma. This overall appears less conspicuous than on 10/05/2021, where there was superimposed hemorrhage. Small volume interval hemorrhage is possible. No intraventricular hemorrhage. Minimal localized edema or gliosis. No CT evidence of acute infarct. Mild presumed chronic small vessel ischemic changes. Mild generalized volume loss. No hydrocephalus. VISUALIZED ORBITS/SINUSES/MASTOIDS: No intraorbital abnormality. No paranasal sinus mucosal disease. No middle ear or mastoid effusion. BONES/SOFT TISSUES: No acute abnormality. CERVICAL SPINE CT: VERTEBRA: Solid fusion from C4 through C7. Mild grade 1 degenerative anterolisthesis of C3 and C7. No fracture or posttraumatic subluxation. CANAL/FORAMINA: No high-grade central canal stenosis. Relatively severe bilateral neural foraminal narrowing at C3-C4. PARASPINAL: No extraspinal abnormality. Visualized lung amor are clear. Procedure Note Marc Victoria MD - 09/10/2022 EXAM: CT HEAD W/O CONTRAST, CT CERVICAL SPINE W/O CONTRAST LOCATION: [facility] DATE: 09/09/2022 INDICATION: Generalized weakness COMPARISON: 09/18/2021 TECHNIQUE: 1) Routine CT Head without IV contrast. Multiplanar reformats. Dosereduction techniques were used. 2) Routine CT Cervical Spine without IV contrast. Multiplanar reformats.Dose reduction techniques were used. FINDINGS: HEAD CT: INTRACRANIAL CONTENTS: Lobulated 24 x 16 x 16 mm (AP by TR by CC)hyperdense focus along the posterior right cingulate gyrus. This isconsistent with the patient's history of cavernoma. This overall appearsless conspicuous than on 10/05/2021, where there was superimposed hemorrhage. Small volume interval hemorrhage ispossible. No intraventricular hemorrhage. Minimal localized edema orgliosis. No CT evidence of acute infarct. Mild presumed chronic smallvessel ischemic changes. Mild generalized volume loss. No hydrocephalus. VISUALIZED ORBITS/SINUSES/MASTOIDS: No intraorbital abnormality. Noparanasal sinus mucosal disease. No middle ear or mastoid effusion. BONES/SOFT TISSUES: No acute abnormality. CERVICAL SPINE CT: VERTEBRA: Solid fusion from C4 through C7. Mild grade 1 degenerativeanterolisthesis of C3 and C7. No fracture or posttraumatic subluxation. CANAL/FORAMINA: No high-grade central canal stenosis. Relatively severebilateral neural foraminal narrowing at C3-C4. PARASPINAL: No extraspinal abnormality. Visualized lung amor areclear. IMPRESSION: HEAD CT: 1. Lobulated 24 x 16 x 16 mm (AP x TR x CC) hyperdense focus along theposterior right cingulate gyrus. This is consistent with the patient'shistory of cavernoma. This overall appears less conspicuous than on09/18/2021, where there was superimposed hemorrhage. 2. Otherwise unremarkable. CERVICAL SPINE CT: 1. No CT evidence for acute fracture or post traumatic subluxation. 2. Solid fusion from C4 through C7. 3. Relatively severe bilateral neural foraminal narrowing at C3-C4. Exam discussed with Dr. Truong at 12:15 AM Jez Truong MD [facility] ORDERABLES * CT Head w/o Contrast (09/09/2022 11:43 PM CDT) Anatomical Region Laterality Modality Head, SUBRAD CT NEURO, SUBRA D CT NEURO, UMP CT NEURO, RAD CT Computed Tomography 09/09/2022 11:4 3 PM CDT Impressions 09/10/2022 12:22 AM CDT IMPRESSION: HEAD CT: 1. ??Lobulated 24 x 16 x 16 mm (AP x TR x CC) hyperdense focus along the posterior right cingulate gyrus. This is consistent with the patient's history of cavernoma. This overall appears less conspicuous than on 09/18/2021, where there was superimposed hemorrhage. 2. ??Otherwise unremarkable. CERVICAL SPINE CT: 1. ??No CT evidence for acute fracture or post traumatic subluxation. 2. ??Solid fusion from C4 through C7. 3. ??Relatively severe bilateral neural foraminal narrowing at C3-C4. Exam discussed with Dr. Truong at 12:15 AM Narrative 09/10/2022 12:22 AM CDT EXAM: CT HEAD W/O CONTRAST, CT CERVICAL SPINE W/O CONTRAST LOCATION: [facility] DATE: 09/09/2022 INDICATION: Generalized weakness COMPARISON: 09/18/2021 TECHNIQUE: 1) Routine CT Head without IV contrast. Multiplanar reformats. Dose reduction techniques were used. 2) Routine CT Cervical Spine without IV contrast. Multiplanar reformats. Dose reduction techniques were used. FINDINGS: HEAD CT: INTRACRANIAL CONTENTS: Lobulated 24 x 16 x 16 mm (AP by TR by CC) hyperdense focus along the posterior right cingulate gyrus. This is consistent with the patient's history of cavernoma. This overall appears less conspicuous than on 10/05/2021, where there was superimposed hemorrhage. Small volume interval hemorrhage is possible. No intraventricular hemorrhage. Minimal localized edema or gliosis. No CT evidence of acute infarct. Mild presumed chronic small vessel ischemic changes. Mild generalized volume loss. No hydrocephalus. VISUALIZED ORBITS/SINUSES/MASTOIDS: No intraorbital abnormality. No paranasal sinus mucosal disease. No middle ear or mastoid effusion. BONES/SOFT TISSUES: No acute abnormality. CERVICAL SPINE CT: VERTEBRA: Solid fusion from C4 through C7. Mild grade 1 degenerative anterolisthesis of C3 and C7. No fracture or posttraumatic subluxation. CANAL/FORAMINA: No high-grade central canal stenosis. Relatively severe bilateral neural foraminal narrowing at C3-C4. PARASPINAL: No extraspinal abnormality. Visualized lung amor are clear. Procedure Note Marc Victoria MD - 09/10/2022 EXAM: CT HEAD W/O CONTRAST, CT CERVICAL SPINE W/O CONTRAST LOCATION: [facility] DATE: 09/09/2022 INDICATION: Generalized weakness COMPARISON: 09/18/2021 TECHNIQUE: 1) Routine CT Head without IV contrast. Multiplanar reformats. Dosereduction techniques were used. 2) Routine CT Cervical Spine without IV contrast. Multiplanar reformats.Dose reduction techniques were used. FINDINGS: HEAD CT: INTRACRANIAL CONTENTS: Lobulated 24 x 16 x 16 mm (AP by TR by CC)hyperdense focus along the posterior right cingulate gyrus. This isconsistent with the patient's history of cavernoma. This overall appearsless conspicuous than on 10/05/2021, where there was superimposed hemorrhage. Small volume interval hemorrhage ispossible. No intraventricular hemorrhage. Minimal localized edema orgliosis. No CT evidence of acute infarct. Mild presumed chronic smallvessel ischemic changes. Mild generalized volume loss. No hydrocephalus. VISUALIZED ORBITS/SINUSES/MASTOIDS: No intraorbital abnormality. Noparanasal sinus mucosal disease. No middle ear or mastoid effusion. BONES/SOFT TISSUES: No acute abnormality. CERVICAL SPINE CT: VERTEBRA: Solid fusion from C4 through C7. Mild grade 1 degenerativeanterolisthesis of C3 and C7. No fracture or posttraumatic subluxation. CANAL/FORAMINA: No high-grade central canal stenosis. Relatively severebilateral neural foraminal narrowing at C3-C4. PARASPINAL: No extraspinal abnormality. Visualized lung amor areclear. IMPRESSION: HEAD CT: 1. Lobulated 24 x 16 x 16 mm (AP x TR x CC) hyperdense focus along theposterior right cingulate gyrus. This is consistent with the patient'shistory of cavernoma. This overall appears less conspicuous than on09/18/2021, where there was superimposed hemorrhage. 2. Otherwise unremarkable. CERVICAL SPINE CT: 1. No CT evidence for acute fracture or post traumatic subluxation. 2. Solid fusion from C4 through C7. 3. Relatively severe bilateral neural foraminal narrowing at C3-C4. Exam discussed with Dr. Truong at 12:15 AM Jez Truong MD IMG CT ORDERABLES * (ABNORMAL) iStat Gases (lactate) venous, POCT (09/09/2022 11:36 PM CDT) Lactic Acid POCT 1.5 <=2.0 mmol/L 09/09/2022 11:41 PM CDT [facility] LABORATORY POC Bicarbonate Venous POCT 16(L) 21 - 28 mmol/L 09/09/2022 11:41 PM CDT [facility] POC O2 Sat, Venous POCT 65(L) 94 - 100 % 09/09/2022 11:41 PM CDT [facility]AT[facility] POC pCO2 Venous POCT 38(L) 40 - 50 mm Hg 09/09/2022 11:41 PM CDT [facility] POC pH Venous POCT 7.24(L) 7.32 - 7.43 09/09/2022 11:41 PM CDT [facility] POC pO2 Venous POCT 39 25 - 47 mm Hg 09/09/2022 11:41 PM CDT [facility] POC Blood, venous BLOOD SPECIMEN / Unknown 09/09/2022 11:36 PM CDT 09/09/2022 11:41 PM CDT Miguel Angel Rob MD LAB - [place] POCT [facility] LABORATORY POC [facility] Lab [address] Lab (1st floor, no room number) [place] [address], [facility] [phone] * (ABNORMAL) Basic metabolic panel (BMP) (09/09/2022 11:24 PM CDT) Sodium 139 136 - 145 mmol/L 09/10/2022 12:07 AM CDT LABORATORY Potassium 5.4(H) 3.4 - 5.3 mmol/L 09/10/2022 12:07 AM CDT LABORATORY Chloride 93(L) 98 - 107 mmol/L 09/10/2022 12:07 AM CDT LABORATORY Carbon Dioxide (CO2) 13(L) 22 - 29 mmol/L 09/10/2022 12:07 AM CDT LABORATORY Anion Gap 33(H) 7 - 15 mmol/L 09/10/2022 12:07 AM CDT LABORATORY Urea Nitrogen 210.8(H) 8.0 - 23.0 mg/dL 09/10/2022 12:07 AM CDT LABORATORY Creatinine 10.68(H) 0.51 - 0.95 mg/dL 09/10/2022 12:07 AM CDT LABORATORY Calcium 8.4(L) 8.6 - 10.0 mg/dL 09/10/2022 12:07 AM CDT LABORATORY Glucose 176(H) 70 - 99 mg/dL 09/10/2022 12:07 AM CDT LABORATORY GFR Estimate 4(L) >60 mL/min/1.7 3m2 09/10/2022 12:07 AM CDT LABORATORY Blood BLOOD SPECIMEN / Unknown Venipuncture / Unknown 09/09/2022 11:24 PM CDT 09/09/2022 11:41 PM CDT Jez Truong MD LAB - BLOOD ORDERABL ES [facility] Acute [facility] Lab [address] Lab (1st floor, no room number) [place] [id number], [facility] [phone] * Salicylate level (09/09/2022 11:24 PM CDT) Salicylate <0.3 mg/dL 09/10/2022 12:07 AM CDT LABORATORY Comment: Salicylate Reference Range Therapeutic: ? 3-10 mg/dL Anti inflammatory: 15-30 mg/dL Blood BLOOD SPECIMEN / Unknown Venipuncture / Unknown 09/09/2022 11:24 PM CDT 09/09/2022 11:41 PM CDT Jez Truong MD LAB - BLOOD ORDERABL ES Performing Organization Address [facility]/ZIP Co de Phone Number [facility] [address] Lab (1st floor, no room number) [place] [address], [facility] [phone] * (ABNORMAL) Glucose by meter (09/09/2022 10:26 PM CDT) GLUCOSE BY METER POCT 104(H) 70 - 99 mg/dL 09/09/2022 10:33 PM CDT LABORATORY POC Blood, venous BLOOD SPECIMEN / Unknown 09/09/2022 10:26 PM CDT 09/09/2022 10:33 PM CDT Miguel Angel Rob MD LAB - BEAKER POCT [facility] Lab [address] Lab (1st floor, no room number) [place] [address], [place] [phone] * XR Chest Port 1 View (09/09/2022 9:12 PM CDT) Anatomical Region Laterality Modality Chest Digital Radiogra phy 09/09/2022 9:12 PM CDT Impressions 09/09/2022 9:16 PM CDT IMPRESSION: No acute cardiopulmonary findings seen to explain patient's shortness of breath clinically. Prior postoperative changes upper spine. Moderate hypertrophic changes most marked in the thoracic spine. Narrative 09/09/2022 9:16 PM CDT EXAM: XR CHEST PORT 1 VIEW LOCATION: [facility] DATE: 09/09/2022 INDICATION: sob COMPARISON: None. Procedure Note Kingsley Hughes MD - 09/09/2022 EXAM: XR CHEST PORT 1 VIEW LOCATION: [facility] DATE: 09/09/2022 INDICATION: sob COMPARISON: None. IMPRESSION: No acute cardiopulmonary findings seen to explain patient'sshortness of breath clinically. Prior postoperative changes upper spine.Moderate hypertrophic changes most marked in the thoracic spine. Jez Truong MD IMG DIAGNOSTIC IMAGI NG ORDERABLES * (ABNORMAL) Urine Culture (09/09/2022 8:47 PM CDT) Culture 50,000-100,000 CFU/mL Escherichia coli(A) ENEIDA 09/10/2022 10:33 PM CDT [facility] Urine URINE SPECIMEN FROM URINARY CONDUIT / Unknown Non-blood Collection / Unknown 09/09/2022 8:47 PM CDT 09/09/2022 9:10 PM CDT Narrative Organism Antibiotic Method Susceptibility Escherichia coli Ampicillin ENEIDA 8 ug/mL: Susceptible Escherichia coli Ampicillin/ Sulbactam ENEIDA 4 ug/mL: Susceptible Escherichia coli Piperacillin/Tazobactam ENEIDA <=4 ug/mL: Susceptible Escherichia coli Cefazolin ENEIDA <=4 ug/mL: Susceptible Comment:Cefazolin TX C breakpoints are for the treatment of uncomplicated urinary tract infections. For the treatment of systemic infections, please contact the laboratory for additional testing. Escherichia coli Cefoxitin ENEIDA <=4 ug/mL: Susceptible Escherichia coli Ceftazidime ENEIDA <=1 ug/mL: Susceptible Escherichia coli Ceftriaxone ENEIDA <=1 ug/mL: Susceptible Escherichia coli Cefepime ENEIDA <=1 ug/mL: Susceptible Escherichia coli Gentamicin ENEIDA <=1 ug/mL: Susceptible Escherichia coli Tobramycin ENEIDA <=1 ug/mL: Susceptible Escherichia coli Ciprofloxacin ENEIDA <=0.25 ug/mL: Susceptible Escherichia coli Levofloxacin ENEIDA <=0.12 ug/mL: Susceptible Escherichia coli Nitrofurantoin ENEIDA <=16 ug/mL: Susceptible Escherichia coli Trimethoprim/Sulfamethoxazole ENEIDA <=1/19 ug/mL: Susceptible Jez Truong MD LAB - MICRO GENERAL ORDERABLES [facility] Inf. Diseases Diag. Lab [address] [facility], [address] [place] [address], [facility] [phone] * (ABNORMAL) Drug abuse screen 1 urine (ED) (09/09/2022 8:47 PM CDT) [facility] Amphetamines Urine Screen Positive(A) Screen Negative 09/09/2022 9:19 PM CDT [facility] Comment: Cutoff for a positive amphetamine is 500 ng/mL or greater. This is an unconfirmed screening result to be used for medical purposes only. Barbituates Urine Screen Negative Screen Negative 09/09/2022 9:19 PM CDT [facility] Comment:Cutoff for a negativ e barbiturate is less than 200 ng/mL. Benzodiazepine Urine Screen Negative Screen Negative 09/09/2022 9:19 PM CDT [facility] Comment:Cutoff for a negativ e benzodiazepine is less than 100 ng/mL. Cannabinoids Urine Screen Negative Screen Negative 09/09/2022 9:19 PM CDT [facility] Comment:Cutoff for a negativ e cannabinoid is less than 50 ng/mL. Cocaine Urine Screen Negative Screen Negative 09/09/2022 9:19 PM CDT [facility] Comment:Cutoff for a negativ e cocaine is less than 300 ng/mL. Opiates Urine Screen Negative Screen Negative 09/09/2022 9:19 PM CDT [facility] Comment:Cutoff for a negativ e opiate is less than 300 ng/mL. Urine URINE SPECIMEN FROM URINARY CONDUIT / Unknown Non-blood Collection / Unknown 09/09/2022 8:47 PM CDT 09/09/2022 8:58 PM CDT Jez Truong MD LAB - URINE ORDERABL ES LABORATORY [facility] Lab [address] [facility] Lab (1st floor, no room number) [place] [address], [place] [phone] * (ABNORMAL) UA with Microscopic reflex to Culture (09/09/2022 8:47 PM CDT) Color Urine Dark Yellow(A) Colorless, Straw, Light Yellow, Yellow 09/09/2022 9:10 PM CDT LABORATORY Appearance Urine Cloudy(A) Clear 09/10/19 9:10 PM CDT LABORATORY Glucose Urine Negative Negative mg/dL 09/09/2022 9:10 PM CDT LABORATORY Bilirubin Urine Small(A) Negative 9:10 PM CDT LABORATORY Ketones Urine Negative Negative mg/dL 09/09/2022 9:10 PM CDT LABORATORY Specific [place] Urine 1.023 1.003 - 1.035 09/09/2022 9:10 PM CDT LABORATORY Blood Urine Large(A) Negative 09/09/2022 9:10 PM CDT LABORATORY pH Urine 5.0 5.0 - 7.0 09/09/2022 9:10 PM CDT LABORATORY Protein Albumin Urine 70(A) Negative mg/dL 09/09/2022 9:10 PM CDT LABORATORY Urobilinogen Urine Normal Normal, 2.0 mg/dL 09/09/2022 9:10 PM CDT LABORATORY Nitrite Urine Negative Negative 09/09/2022 9:10 PM CDT LABORATORY Leukocyte Esterase Urine Large(A) Negative 09/09/2022 9:10 PM CDT LABORATORY Bacteria Urine Many(A) None Seen /HPF 09/09/2022 9:10 PM CDT LABORATORY WBC Clumps Urine Present(A) None Seen /HPF 09/09/2022 9:10 PM CDT LABORATORY RBC Urine 75(H) <=2 /HPF 09/09/2022 9:10 PM CDT LABORATORY WBC Urine >182(H) <=5 /HPF 09/09/2022 9:10 PM CDT LABORATORY Squamous Epithelials Urine 45(H) <=1 /HPF 09/09/2022 9:10 PM CDT LABORATORY Urine URINE SPECIMEN FROM URINARY CONDUIT / Unknown Non-blood Collection / Unknown 09/09/2022 8:47 PM CDT 09/09/2022 8:58 PM CDT Narrative [facility] - 09/09/2022 9:10 PM CDT Urine Culture ordered based on laboratory criteria Jez Truong MD LAB - URINE ORDERABL ES [facility] Lab [address] Lab (1st floor, no room number) [place] [address], [facility] [phone] * (ABNORMAL) Hemoglobin A1c (09/09/2022 8:46 PM CDT) Hemoglobin A1C 6.3(H) <5.7 % 09/10/2022 1:40 AM CDT [facility] Comment: Normal <5.7% Prediabetes 5.7-6.4% ?? Diabetes 6.5% or higher Note: Adopted from ADA consensus guidelines. Blood STRUCTURE OF RIGHT UPPER LIMB / Unknown Venipuncture / Unknown 09/09/2022 8:46 PM CDT 09/09/2022 8:59 PM CDT Miguel Angel Rob MD LAB - BLOOD ORDERABL ES Performing Organization Address City/[facility]/ZIP Co de Phone Number [facility] [address] Lab (1st floor, no room number) [place] [address], [facility] [phone] * (ABNORMAL) Ketone Beta-Hydroxybutyrate Quantitative (09/09/2022 8:46 PM CDT) Ketone (Beta-Hydroxybut yrate) Quantitative 2.50(HH) <=0.30 mmol/L 09/09/2022 11:02 PM CDT LABORATORY Blood STRUCTURE OF RIGHT UPPER LIMB / Unknown Venipuncture / Unknown 09/09/2022 8:46 PM CDT 09/09/2022 8:59 PM CDT Jez Truong MD LAB - BLOOD ORDERABL ES [facility] Lab [address] Lab (1st floor, no room number) [place] [address], [facility] [phone] * Extra Green Top ([place] Heparin) Tube (09/09/2022 8:46 PM CDT) Hold Specimen JIC 09/09/2022 10:16 PM CDT [facility] Blood BLOOD SPECIMEN / Unknown Venipuncture / Unknown 09/09/2022 8:46 PM CDT 09/09/2022 9:14 PM CDT Jez Truong MD LAB - BLOOD ORDERABL ES Performing Organization Address [facility]/ZIP Co de Phone Number [facility] Lab [address] Lab (1st floor, no room number) [place] [address], [facility] [phone] * (ABNORMAL) CBC with platelets and differential (09/09/2022 8:46 PM CDT) WBC Count 16.4(H) 4.0 - 11.0 10e3/uL 09/09/2022 9:33 PM CDT [facility] RBC Count 5.12 3.80 - 5.20 10e6/uL 09/09/2022 9:33 PM CDT [facility] Hemoglobin 16.4(H) 11.7 - 15.7 g/dL 09/09/2022 9:33 PM CDT [facility] Hematocrit 49.4(H) 35.0 - 47.0 % 09/09/2022 9:33 PM CDT [facility] MCV 97 78 - 100 fL 09/09/2022 9:33 PM CDT [facility] MCH 32.0 26.5 - 33.0 pg 09/09/2022 9:33 PM CDT [facility] MCHC 33.2 31.5 - 36.5 g/dL 09/09/2022 9:33 PM CDT [facility] RDW 15.3(H) 10.0 - 15.0 % 09/09/2022 9:33 PM CDT [facility] Platelet Count 98(L) 150 - 450 10e3/uL 09/09/2022 9:33 PM CDT [facility] % Neutrophils 90 % 09/09/2022 9:33 PM CDT [facility] % Lymphocytes 6 % 09/09/2022 9:33 PM CDT [facility] % Monocytes 4 % 09/09/2022 9:33 PM CDT [facility] % Eosinophils 0 % 09/09/2022 9:33 PM CDT [facility] % Basophils 0 % 09/09/2022 9:33 PM CDT [facility] % Immature Granulocytes 0 % 09/09/2022 9:33 PM CDT [facility] NRBCs per 100 WBC 0 <1 /100 023 9:33 PM CDT [facility] Absolute Neutrophils 14.7(H) 1.6 - 8.3 10e3/uL 09/09/2022 9:33 PM CDT [facility] Absolute Lymphocytes 0.9 0.8 - 5.3 10e3/uL 09/09/2022 9:33 PM CDT [facility] Absolute Monocytes 0.7 0.0 - 1.3 10e3/uL 09/09/2022 9:33 PM CDT [facility] Absolute Eosinophils 0.0 0.0 - 0.7 10e3/uL 09/09/2022 9:33 PM CDT [facility] Absolute Basophils 0.0 0.0 - 0.2 10e3/uL 09/09/2022 9:33 PM CDT [facility] Absolute Immature Granulocytes 0.1 <=0.4 10e3/uL 09/09/2022 9:33 PM CDT [facility] Absolute NRBCs 0.0 10e3/uL 09/09/2022 9:33 PM CDT [facility] Blood STRUCTURE OF RIGHT UPPER LIMB / Unknown Venipuncture / Unknown 09/09/2022 8:46 PM CDT 09/09/2022 8:59 PM CDT Jez Truong MD LAB - BLOOD ORDERABL ES [facility] Lab [address] [facility] Lab (1st floor, no room number) [place] [address], [facility] [phone] * Blood Culture Peripheral Blood (09/09/2022 8:46 PM CDT) Culture No Growth 09/14/2022 11:01 PM CDT [facility] Blood BLOOD SPECIMEN / Unknown Venipuncture / Unknown 09/09/2022 8:46 PM CDT 09/09/2022 8:59 PM CDT Jez Truong MD LAB - MICRO GENERAL ORDERABLES [facility] Inf. Diseases Diag. Lab [address] [facility], [address] [address], [facility] [phone] * Blood Culture Peripheral Blood (09/09/2022 8:46 PM CDT) Culture No Growth 09/14/2022 11:01 PM CDT [facility] Blood BLOOD SPECIMEN / Unknown Venipuncture / Unknown 09/09/2022 8:46 PM CDT 09/09/2022 8:58 PM CDT Jez Truong MD LAB - MICRO GENERAL ORDERABLES [facility] Inf. Diseases Diag. Lab [address] [facility], [address] [address], [facility] [phone] * (ABNORMAL) Blood gas venous (09/09/2022 8:46 PM CDT) pH Venous 7.19(LL) 7.32 - 7.43 09/09/2022 9:06 PM CDT [facility] pCO2 Venous 41 40 - 50 mm Hg 09/09/2022 9:06 PM CDT [facility] pO2 Venous 42 25 - 47 mm Hg 09/09/2022 9:06 PM CDT [facility] Bicarbonate Venous 16(L) 21 - 28 mmol/L 09/09/2022 9:06 PM CDT [facility] Base Excess/Deficit Venous -12.0(L) -7.7 - 1.9 mmol/L 09/09/2022 9:06 PM CDT [facility] FIO2 6 ENEIDA 09/09/2022 9:06 PM CDT [facility] Blood, venous STRUCTURE OF RIGHT UPPER LIMB / Unknown Venipuncture / Unknown 09/09/2022 8:46 PM CDT 09/09/2022 9:00 PM CDT Jez Truong MD LAB - BLOOD ORDERABL ES Performing Organization Address [facility]/ZIP Co de Phone Number LABORATORY [facility] Lab [address] Lab (1st floor, no room number) [place] [phone], [facility] [phone] * (ABNORMAL) CK total (09/09/2022 8:46 PM CDT) CK 363(H) 26 - 192 U/L 09/09/2022 9:21 PM CDT [facility] Blood STRUCTURE OF RIGHT UPPER LIMB / Unknown Venipuncture / Unknown 09/09/2022 8:46 PM CDT 09/09/2022 8:59 PM CDT Jez Truong MD LAB - BLOOD ORDERABL ES Performing Organization Address [facility]/ZIP Co de Phone Number LABORATORY [facility] Lab [address] Lab (1st floor, no room number) [place] [phone], [facility] [phone] * TSH with free T4 reflex (09/09/2022 8:46 PM CDT) TSH 1.64 0.30 - 4.20 uIU/mL 09/09/2022 9:28 PM CDT [facility] Blood STRUCTURE OF RIGHT UPPER LIMB / Unknown Venipuncture / Unknown 09/09/2022 8:46 PM CDT 09/09/2022 8:59 PM CDT Jez Truong MD LAB - BLOOD ORDERABL ES Performing Organization Address City/[facility]/ZIP Co de Phone Number LABORATORY [facility] Lab [address] Lab (1st floor, no room number) [place] [address], [facility] [phone] * Magnesium (09/09/2022 8:46 PM CDT) Magnesium 1.9 1.7 - 2.3 mg/dL 09/09/2022 9:21 PM CDT [facility] Blood STRUCTURE OF RIGHT UPPER LIMB / Unknown Venipuncture / Unknown 09/09/2022 8:46 PM CDT 09/09/2022 8:59 PM CDT Jez Truong MD LAB - BLOOD ORDERABL ES Performing Organization Address [facility]/ZIP Co de Phone Number LABORATORY [facility] Lab [address] Lab (1st floor, no room number) [place] [address], [facility] [phone] * Lactic acid whole blood (09/09/2022 8:46 PM CDT) Lactic Acid 1.7 0.7 - 2.0 mmol/L 09/09/2022 9:03 PM CDT [facility] Blood, venous STRUCTURE OF RIGHT UPPER LIMB / Unknown Venipuncture / Unknown 09/09/2022 8:46 PM CDT 09/09/2022 9:00 PM CDT Jez Truong MD LAB - BLOOD ORDERABL ES LABORATORY [facility] Lab [address] Lab (1st floor, no room number) [place] [address], [facility] [phone] * (ABNORMAL) Comprehensive metabolic panel (09/09/2022 8:46 PM CDT) Sodium 139 136 - 145 mmol/L 09/09/2022 9:55 PM CDT [facility] Potassium 6.3(HH) 3.4 - 5.3 mmol/L 09/09/2022 9:55 PM CDT [facility] Chloride 84(L) 98 - 107 mmol/L 09/09/2022 9:55 PM CDT [facility] Carbon Dioxide (CO2) 15(L) 22 - 29 mmol/L 09/09/2022 9:55 PM CDT [facility] Anion Gap 40(H) 7 - 15 mmol/L 09/09/2022 9:55 PM CDT [facility] Urea Nitrogen 224.4(H) 8.0 - 23.0 mg/dL 09/09/2022 9:55 PM CDT [facility] Creatinine 12.98(H) 0.51 - 0.95 mg/dL 09/09/2022 9:55 PM CDT [facility] Calcium 8.8 8.6 - 10.0 mg/dL 09/09/2022 9:55 PM CDT [facility] Glucose 137(H) 70 - 99 mg/dL 09/09/2022 9:55 PM CDT [facility] Alkaline Phosphatase 88 35 - 104 U/L 09/09/2022 9:55 PM CDT [facility] AST 19 0 - 45 U/L 09/09/2022 9:55 PM CDT [facility] Comment:Reference intervals for this test were updated on 08/28/2022 to more accurately reflect our healthy population. There may be differences in the flagging of prior results with similar values performed with this method. Interpretation of those prior results can be made in the context of the updated reference intervals. ALT 12 0 - 50 U/L 09/09/2022 9:55 PM CDT [facility] Comment:Reference intervals for this test were updated on 08/28/2022 to more accurately reflect our healthy population. There may be differences in the flagging of prior results with similar values performed with this method. Interpretation of those prior results can be made in the context of the updated reference intervals. Protein Total 8.8(H) 6.4 - 8.3 g/dL 09/09/2022 9:55 PM CDT [facility] Albumin 4.5 3.5 - 5.2 g/dL 09/09/2022 9:55 PM CDT [facility] Bilirubin Total 0.7 <=1.2 mg/dL 09/09/2022 9:55 PM CDT [facility] GFR Estimate 3(L) >60 mL/min/1. 73m2 09/09/2022 9:55 PM CDT [facility] Blood STRUCTURE OF RIGHT UPPER LIMB / Unknown Venipuncture / Unknown 09/09/2022 8:46 PM CDT 09/09/2022 8:59 PM CDT Jez Truong MD LAB - BLOOD ORDERABL ES LABORATORY [facility] Lab [address] Lab (1st floor, no room number) [place] [address], [facility] [phone] * INR (09/09/2022 8:46 PM CDT) INR 1.03 0.85 - 1.15 09/09/2022 9:09 PM CDT [facility] Blood BLOOD SPECIMEN / Unknown Venipuncture / Unknown 09/09/2022 8:46 PM CDT 09/09/2022 8:59 PM CDT Jez Truong MD LAB - BLOOD ORDERABL ES Performing Organization Address City/[facility]/ZIP Co de Phone Number LABORATORY [facility] Lab [address] Lab (1st floor, no room number) [place] [phone], [facility] [phone] * (ABNORMAL) iStat Gases (lactate) venous, POCT (09/09/2022 8:44 PM CDT) Lactic Acid POCT 2.0 <=2.0 mmol/L 09/09/2022 8:49 PM CDT [facility] POC Bicarbonate Venous POCT 18(L) 21 - 28 mmol/L 09/09/2022 8:49 PM CDT [facility] POC O2 Sat, Venous POCT 36(L) 94 - 100 % 09/09/2022 8:49 PM CDT [facility] POC pCO2 Venous POCT 41 40 - 50 mm Hg 09/09/2022 8:49 PM CDT [facility] POC pH Venous POCT 7.24(L) 7.32 - 7.43 09/09/2022 8:49 PM CDT [facility] POC pO2 Venous POCT 25 25 - 47 mm Hg 09/09/2022 8:49 PM CDT [facility] POC Blood, venous BLOOD SPECIMEN / Unknown 09/09/2022 8:44 PM CDT 09/09/2022 8:49 PM CDT Jez Truong MD LAB - BEAKER POCT [facility] POC [facility] Lab [address] Lab (1st floor, no room number) [place] [address] [phone] * EKG 12 lead (09/09/2022 8:15 PM CDT) Systolic Blood Pressure mmHg RADIOLOGY RESULTS Diastolic Blood Pressure mmHg RADIOLOGY RESULTS Ventricular Rate 89 BPM RAD IOLOGY RESULTS Atrial Rate 89 BPM RADIOLOG Y RESULTS IN Interval 176 ms RADIOLOG Y RESULTS QRS Duration 152 ms RADIOLO GY RESULTS QT 418 ms RADIOLOGY RESULTS QTc 508 ms RADIOLOGY RESULTS P [place] 67 degrees RADIOLOGY RESULTS R AXIS 22 degrees RADIOLOGY RESULTS T [place] 139 degrees RADIOLOGY RESULTS Interpretation ECG Sinus rhythm Possible Left atrial enlargement Left bundle branch block Abnormal ECG When compared with ECG of 11-OCT-2018 15:30, Vent. rate has increased BY ??43 BPM T wave amplitude has increased in Inferior leads T wave inversion less evident in Anterior leads T wave inversion now evident in Lateral leads QT has lengthened RADIOLOGY RESULTS 09/09/2022 8:15 PM CDT 09/09/2022 9:10 PM CDT Jez Truong MD ECG ORDERABLES RADIOLOGY RESULTS documented in this encounter Visit Diagnoses Diagnosis Acute renal failure, unspecified acute renal failure type (H24)- Primary Acute renal failure, unspecified acute renal failure type (H24) Septic shock (H) Hyperkalemia Hyperpotassemia Urinary tract infection without hematuria, site unspecified Mild protein-calorie malnutrition (H24) Malnutrition of mild degree Acute bacterial conjunctivitis of right eye Health Detention notesas part of the Health Detention workflow to capture care coordination pl Sepsis (H) Acute cystitis without hematuria Acute cystitis documented in this encounter Admitting Diagnoses Diagnosis Acute renal failure, unspecified acute renal failure type (H24) documented in this encounter Administered Medications Inactive Administered Medications - up to 3 most recent administrations Medication Order MAR Action Action Date Dose Rate Site 0.9% sodium chloride BOLUS Intravenous, 1,000 mL, ONCE, at 1,000 mL/hr, Administer over 1 Hours, On 09/09/22 at 2245, For 1 dose $New Bag 09/09/2022 10:57 PM CDT 1,000 mLs 1000 mL/hr 0.9% sodium chloride BOLUS Intravenous, 1,000 mL, ONCE, at 1,000 mL/hr, Administer over 1 Hours, On 09/09/22 at 2350, For 1 dose $New Bag 09/10/2022 1:20 AM CDT 1,000 mLs 1000 mL/hr 0.9% sodium chloride BOLUS Intravenous, 500 mL, ONCE, On 09/11/22 at 1430, For 1 dose $New Bag 09/11/2022 2:52 PM CDT 500 mLs acetaminophen (TYLENOL) solution 650 mg 650 mg, Per NG tube, EVERY 4 HOURS PRN, mild pain, Starting on 09/10/22 at 0039, Maximum acetaminophen dose from all sources= 75 mg/kg/day not to exceed 4 grams/day. acetaminophen (TYLENOL) tablet 650 mg 650 mg, Oral, EVERY 4 HOURS PRN, mild pain, Starting on 09/10/22 at 0039, Maximum acetaminophen dose from all sources = 75 mg/kg/day not to exceed 4 grams/day. amLODIPine (NORVASC) tablet 5 mg 5 mg, Oral, DAILY, First dose on Denisha 09/14/22 at 0800, Hold for SBP < 110 $Given 09/15/2022 8:54 AM CDT 5 mg $Given 09/14/2022 9:36 AM CDT 5 mg buprenorphine HCl-naloxone HCl (SUBOXONE) 8-2 MG per film 1 Film 1 Film, Sublingual, DAILY, First dose on 09/11/22 at 0930, Give SUBLINGUAL. Place under the tongue near the base on right or left side and leave until completely dissolved. Cutting film not recommended. Patient should not swallow, chew, or move film. Patient should not eat/drink until film is completely dissolved. $Given 09/17/2022 9:36 AM CDT 1 Film $Given 09/16/2022 9:02 AM CDT 1 Film $Given 09/15/2022 8:55 AM CDT 1 Film calcium gluconate 2 g in NS 100 mL intermittent infusion 2 g, Intravenous, Administer over 20 Minutes, ONCE, On 09/09/22 at 2235, For 1 dose, Do not infuse in the same IV line as phosphate-containing solutions $Given 09/09/2022 10:56 PM CDT 2 g cefTRIAXone (ROCEPHIN) 1 g vial to attach to NS 100 mL bag for ADULTS or NS 50 mL bag for PEDS STAT, 1 g, Intravenous, ONCE, On 09/09/22 at 2115, For 1 dose, Indications: Pyelonephritis $New Bag 09/09/2022 9:33 PM CDT 1 g cefTRIAXone (ROCEPHIN) 1 g vial to attach to NS 100 mL bag for ADULTS or NS 50 mL bag for PEDS STAT, 1 g, Intravenous, ONCE, On 09/10/22 at 0040, For 1 dose, Please administer as soon as able so that patient receives a total of 2 grams. Already rec'd1 gram in the ED earlier this darron., Indications: Sepsis, Urinary Tract Infection $New Bag 09/10/2022 2:18 AM CDT 1 g cefTRIAXone (ROCEPHIN) 2 g vial to attach to NS 100 ml bag for ADULTS or NS 50 ml bag for PEDS STAT, 2 g, Intravenous, EVERY 24 HOURS, First dose on 09/10/22 at 2000, Indications: Sepsis, Urinary Tract Infection $New Bag 09/12/2022 8:35 PM CDT 2 g $New Bag 09/11/2022 9:30 PM CDT 2 g $New Bag 09/10/2022 7:25 PM CDT 2 g 200 mL/hr ciprofloxacin (CILOXAN) 0.3 % ophthalmic solution 1 drop 1 drop, Right Eye, 4 TIMES DAILY, First dose on Sun09/15/22 at 1600 $Given 09/17/2022 5:00 PM CDT 1 drop $Given 09/17/2022 11:44 AM CDT 1 drop $Given 09/17/2022 9:38 AM CDT 1 drop dextrose 10% BOLUS 300 mL, Intravenous, Administer over 4 Hours, at 75 mL/hr, ONCE, On 09/09/22 at 2155, For 1 dose, For prevention of hypoglycemia due to insulin treatment for hyperkalemia. Infuse over 4 hours. Perform POCT Blood Glucose after 2 hours. Notify provider IF blood glucose is greater than 250 mg/dL or less than 100 mg/dL. Discontinue infusion after 2 hours if Blood Glucose is greater than 250 mg/dL and notify provider. $New Bag 09/09/2022 10:56 PM CDT 250 mLs 75 mL/hr dextrose 5% and 0.45% NaCl 1,000 mL with sodium bicarbonate 75 mEq/L infusion 1,000 mL, at 125 mL/hr, Intravenous, CONTINUOUS, Starting on Sun09/10/22 at 1100, Until Sun09/12/22 at 1602 $New Bag 09/12/2022 10:03 AM CDT 125 mL/hr $New Bag 09/11/2022 4:01 PM CDT 125 mL/hr Rate/Dose Change 09/11/2022 2:52 PM CDT 125 mL/ hr dextrose 5% and 0.9% NaCl infusion at 125 mL/hr, Intravenous, CONTINUOUS, Starting on Sun09/10/22 at 0040, Until Sun09/10/22 at 1049 Rate/Dose Verify 09/10/2022 10:00 AM CDT 125 mL/hr Rate/Dose Verify 09/10/2022 8:00 AM CDT 125 mL/ hr Rate/Dose Verify 09/10/2022 6:00 AM CDT 125 mL/ hr dextrose 5% BOLUS Intravenous, 500 mL, ONCE, at 100 mL/hr, Administer over 5 Hours, On Sun09/13/22 at 1200, For 1 dose $New Bag 09/13/2022 12:57 PM CDT 500 mLs 100 mL/hr dextrose 50 % injection 25 g 25 g, Intravenous, ONCE, Administer over 1-5 Minutes, On 09/09/22 at 2155, For 1 dose, Give with insulin. DO NOT give dextrose if blood glucose is greater than 250 mg/dL. If blood glucose is greater than 250 mg/dL, monitor BG and give dextrose if level drops below 100 mg/dL. For Moderate Hyperkalemia Monitor POCT glucose Q 30 minutes X4 then Q1 hour X4 then consult with provider. Potassium check 2 hours following treatment. Notify provider if potassium is outside normal range. Vesicant. $Given 09/09/2022 10:47 PM CDT 25 g dextrose 50 % injection 25-50 mL 25-50 mL, Intravenous, EVERY 15 MIN PRN, low blood sugar, Administer over 1-5 Minutes, Starting on 09/10/22 at 0039, Use if have IV access, BG less than 70 mg/dL and meet dose criteria below: Dose if conscious and alert (or disorientated) and NPO = 25 mL Dose if unconscious / not alert = 50 mL Give first dose for initial blood glucose less than 70 mg/dL. If blood glucose at 15 minute recheck is less than or equal to 100 mg/dL continue to administer carbohydrate treatment every 15 minutes, as needed, based on blood glucose and assessment parameters until blood glucose level is above 100 mg/dL. Vesicant. folic acid (FOLVITE) tablet 1 mg 1 mg, Oral, DAILY, First dose on 09/16/22 at 1430 $Given 09/17/2022 9:36 AM CDT 1 mg $Given 09/16/2022 3:43 PM CDT 1 mg glucagon injection 1 mg 1 mg, Subcutaneous, EVERY 15 MIN PRN, low blood sugar, May repeat x 1 only, Starting on 09/10/22 at 0039, May give SQ or IM. ONLY use glucagon IF patient has NO IV access AND is UNABLE to swallow AND blood glucose is LESS than or EQUAL to 50 mg/dL. glucose gel 15-30 g 15-30 g, Oral, EVERY 15 MIN PRN, low blood sugar, Starting on 09/10/22 at 0039, Give first dose for initial blood glucose less than 70 mg/dL per the dosing instructions below. If blood glucose at 15 minute rechecks is still less than or equal to 100 mg/dL, continue to administer doses per blood glucose parameters every 15 minutes, as needed, until blood glucose level is above 100 mg/dL. Dosing Instructions: ~If patient is conscious and able to swallow and NO enteral tube For initial BG 51-69mg/dL OR 15 minute recheck BG 51- 100 mg/dL - give 15 g For BG less than or equal to 50 mg/dL - give 30 g ~ If Enteral tube For initial BG 51-69mg/dL OR 15 minute recheck BG 51- 100 mg/dL - give apple juice 120 mL (4 oz or 15 g of CHO) via enteral tube For BG less than or equal to 50 mg/dL - Give apple juice 240 mL (8 oz or 30 g of CHO) via enteral tube ~Oral gel is preferable for conscious and able to swallow patient. ~IF gel unavailable or patient refuses may provide apple juice per Enteral tube dosing instructions. Document juice on I and O flowsheet. hydrALAZINE (APRESOLINE) injection 10 mg 10 mg, Intravenous, EVERY 4 HOURS PRN, high blood pressure, give for SBP > 180, Starting on Sun09/10/22 at 1505 insulin aspart (NovoLOG) injection (RAPID ACTING) 1-6 Units, Subcutaneous, EVERY 4 HOURS, First dose on Sun09/10/22 at 0040, Correction Scale - MEDIUM INSULIN RESISTANCE DOSING Do Not give Correction Insulin if BG less than 140. For BG 140 - 189 give 1 unit. For BG 190 - 239 give 2 units. For BG 240 - 289 give 3 units. For BG 290 - 339 give 4 units. For BG 340 - 399 give 5 units. For BG greater than or equal to 400 give 6 units. Check blood glucose Q4H and administer based on blood glucose. Notify provider if glucose greater than or equal to 350 mg/dL after administration of correction dose. If given at mealtime, administer within 30 minutes of start of meal. $Given 09/11/2022 4:00 AM CDT 1 Units $Given 09/11/2022 12:00 AM CDT 1 Units insulin aspart (NovoLOG) injection (RAPID ACTING) 1-7 Units, Subcutaneous, 3 TIMES DAILY BEFORE MEALS, First dose on Sun09/11/22 at 0900, Correction Scale - MEDIUM INSULIN RESISTANCE DOSING Do Not give Correction Insulin if Pre-Meal BG less than 140. For Pre-Meal BG 140 - 189 give 1 unit. For Pre-Meal BG 190 - 239 give 2 units. For Pre-Meal BG 240 - 289 give 3 units. For Pre-Meal BG 290 - 339 give 4 units. For Pre-Meal BG 340- 399 give 5 units. For Pre-Meal BG 400-449 give 6 units For Pre-Meal BG greater than or equal to 450 give 7 units. To be given with prandial insulin, and based on pre-meal blood glucose. Notify provider if glucose greater than or equal to 350 mg/dL after administration of correction dose. If given at mealtime, administer within 30 minutes of start of meal. $Given 09/11/2022 6:18 PM CDT 1 Units $Given 09/11/2022 1:54 PM CDT 1 Units insulin regular 1 unit/mL injection 8.6 Units 8.6 Units (rounded from 8.62 Units = 0.1 Units/kg ? 86.2 kg), Intravenous, ONCE, On 09/09/22 at 2155, For 1 dose, Give with DEXTROSE. For Moderate Hyperkalemia Monitor POCT glucose Q 30 minutes X4 then Q1 hour X4 then consult with provider. Potassium check 2 hours following treatment. Notify provider if potassium is outside normal range. $Given 09/09/2022 10:48 PM CDT 8.6 Units lactated ringers BOLUS 2,000 mL Intravenous, 2,000 mL, ONCE, at 2,000 mL/hr, Administer over 1 Hours, On 09/09/22 at 2020, For 1 dose $New Bag 09/09/2022 9:34 PM CDT 2,000 mLs 2000 mL/hr levETIRAcetam (KEPPRA) tablet 1,000 mg 1,000 mg, Oral, 2 TIMES DAILY, First dose (after last modification) on Sun09/12/22 at 2000 $Given 09/17/2022 9:36 AM CDT 1,000 mg $Given 09/16/2022 8:12 PM CDT 1,000 mg $Given 09/16/2022 9:02 AM CDT 1,000 mg levETIRAcetam (KEPPRA) tablet 500 mg 500 mg, Oral, 2 TIMES DAILY, First dose on Sun09/11/22 at 0930, Dose adjusted per renal dosing policy. Estimated CrCl = 18.7 mL/min. $Given 09/12/2022 7:56 AM CDT 500 mg $Given 09/11/2022 9:30 PM CDT 500 mg $Given 09/11/2022 10:42 AM CDT 500 mg levofloxacin (LEVAQUIN) tablet 500 mg Routine, 500 mg, Oral, DAILY, First dose on Denisha 09/14/22 at 1030, Administer at least 2 hours before or 4 hours after aluminum, calcium, iron, zinc or magnesium containing medications. May be taken with food or on an empty stomach. Do not administer alone with a dairy product like milk or yogurt or calcium-fortified juice, but may be administered with a meal containing dairy. Hold tube feeding 1 hour before and 1 hour after administration, Indications: Urinary Tract Infection $Given 09/15/2022 8:54 AM CDT 500 mg $Given 09/14/2022 12:08 PM CDT 500 mg lisinopril (ZESTRIL) tablet 20 mg 20 mg, Oral, DAILY, First dose on Sun09/14/22 at 1630 $Given 09/17/2022 9:36 AM CDT 20 mg $Given 09/16/2022 9:02 AM CDT 20 mg $Given 09/15/2022 8:54 AM CDT 20 mg magnesium oxide (MAG-OX) tablet 400 mg 400 mg, Oral, EVERY 6 HOURS, First dose on Sun09/14/22 at 1030, For 3 doses $Given 09/15/2022 12:00 AM CDT 400 mg $Given 09/14/2022 5:13 PM CDT 400 mg $Given 09/14/2022 12:08 PM CDT 400 mg magnesium oxide (MAG-OX) tablet 400 mg 400 mg, Oral, DAILY, First dose on Sun09/15/22 at 0800 $Given 09/15/2022 8:54 AM CDT 400 mg magnesium oxide (MAG-OX) tablet 400 mg 400 mg, Oral, EVERY 4 HOURS, First dose on Sun09/15/22 at 1300, For 2 doses $Given 09/15/2022 5:47 PM CDT 400 mg $Given 09/15/2022 1:14 PM CDT 400 mg magnesium oxide (MAG-OX) tablet 400 mg 400 mg, Oral, 2 TIMES DAILY, First dose (after last modification) on [facility] 09/16/22 at 0800 $Given 09/16/2022 9:02 AM CDT 400 mg magnesium oxide (MAG-OX) tablet 800 mg 800 mg, Oral, 2 TIMES DAILY, First dose (after last modification) on [facility] 09/16/22 at 1500 $Given 09/17/2022 9:36 AM CDT 800 mg $Given 09/16/2022 8:12 PM CDT 800 mg $Given 09/16/2022 3:43 PM CDT 800 mg magnesium sulfate 2 g in 50 mL sterile water intermittent infusion 2 g, Intravenous, Administer over 60 Minutes, at 50 mL/hr, ONCE, On Sun09/11/22 at 1000, For 1 dose, Magnesium level 1.1-1.5 mg/dL. Administer 2 gm magnesium IV x 1 doses and recheck magnesium level 2-4 hours AFTER the last dose is infused. Ordered from the Magnesium replacement order set. $linkedFA 09/11/2022 10:46 AM CDT 2 g 50 mL/h r magnesium sulfate 2 g in 50 mL sterile water intermittent infusion 2 g, Intravenous, Administer over 60 Minutes, at 50 mL/hr, ONCE, On Sun09/11/22 at 1700, For 1 dose, Magnesium level 1.1-1.5 mg/dL. Administer 2 gm magnesium IV x 1 doses and recheck magnesium level 2-4 hours AFTER the last dose is infused. Ordered from the Magnesium replacement order set. $[place] 09/11/2022 5:44 PM CDT 2 g 50 mL/hr magnesium sulfate 4 g in 100 mL sterile water intermittent infusion 4 g, Intravenous, Administer over 120 Minutes, at 50 mL/hr, ONCE, On Sun09/12/22 at 1400, For 1 dose, Magnesium level 1.1-1.5 mg/dL. Administer 4 gm magnesium IV x 1 dose and recheck magnesium level 2-4 hours AFTER the last dose is infused. Ordered from the Magnesium replacement order set. $[place] [facility] 09/12/2022 2:33 PM CDT 4 g 50 mL/hr miconazole (MICATIN) 2 % powder Topical, 2 TIMES DAILY, First dose on Sun09/10/22 at 0900, Apply to abdominal folds $Given 09/17/2022 9:37 AM CDT $Given 09/13/2022 8:24 PM CDT $Given 09/13/2022 8:41 AM CDT ondansetron (ZOFRAN ODT) ODT tab 4 mg 4 mg, Oral, EVERY 6 HOURS PRN, nausea, vomiting, Starting on Sun09/10/22 at 0039, This is Step 1 of nausea and vomiting management. If nausea not resolved in 15 minutes, go to Step 2 prochlorperazine (COMPAZINE). With dry hands, peel back foil backing and gently remove tablet. Do not push oral disintegrating tablet through foil backing. Administer immediately on tongue and oral disintegrating tablet dissolves in seconds, then swallow with saliva. Liquid not required. $Given 09/14/2022 10:48 PM CDT 4 mg $Given 09/14/2022 10:29 AM CDT 4 mg $Given 09/12/2022 5:09 PM CDT 4 mg ondansetron (ZOFRAN) injection 4 mg 4 mg, Intravenous, ONCE, Administer over 2-5 Minutes, On 09/09/22 at 2330, For 1 dose, Irritant. $Given 09/09/2022 11:27 PM CDT 4 mg ondansetron (ZOFRAN) injection 4 mg 4 mg, Intravenous, EVERY 6 HOURS PRN, nausea, vomiting, Administer over 2-5 Minutes, Starting on 09/10/22 at 0039, Give IF patient unable to tolerate oral medication. This is Step 1 of nausea and vomiting management. If nausea not resolved in 15 minutes, go to Step 2 prochlorperazine (COMPAZINE). Irritant. $Given 09/10/2022 2:33 AM CDT 4 mg pantoprazole (PROTONIX) EC tablet 40 mg 40 mg, Oral, DAILY, First dose on 09/10/22 at 0800, DO NOT CRUSH. $Given 09/17/2022 9:37 AM CDT 40 mg $Given 09/16/2022 9:02 AM CDT 40 mg $Given 09/15/2022 8:54 AM CDT 40 mg PARoxetine (PAXIL) tablet 60 mg 60 mg, Oral, DAILY, First dose on 09/10/22 at 1100 $Given 09/17/2022 9:37 AM CDT 60 mg $Given 09/16/2022 9:02 AM CDT 60 mg $Given 09/15/2022 8:54 AM CDT 60 mg pregabalin (LYRICA) capsule 25 mg 25 mg, Oral, DAILY, First dose on 09/11/22 at 0930 $Given 09/17/2022 9:36 AM CDT 25 mg $Given 09/16/2022 9:02 AM CDT 25 mg $Given 09/15/2022 8:54 AM CDT 25 mg prochlorperazine (COMPAZINE) injection 10 mg 10 mg, Intravenous, EVERY 6 HOURS PRN, nausea, vomiting, Administer over 1-2 Minutes, Starting on 09/10/22 at 0039, IF patient unable to tolerate oral medication. This is Step 2 of nausea and vomiting management. Give if nausea not resolved 15 minutes after giving ondansetron (ZOFRAN). prochlorperazine (COMPAZINE) suppository 25 mg 25 mg, Rectal, EVERY 12 HOURS PRN, nausea, vomiting, Starting on 09/10/22 at 0039, This is Step 2 of nausea and vomiting management. Give if nausea not resolved 15 minutes after giving ondansetron (ZOFRAN). prochlorperazine (COMPAZINE) tablet 10 mg 10 mg, Oral, EVERY 6 HOURS PRN, vomiting, Starting on 09/10/22 at 0039, This is Step 2 of nausea and vomiting management. Give if nausea not resolved 15 minutes after giving ondansetron (ZOFRAN). rosuvastatin (CRESTOR) tablet 5 mg 5 mg, Oral, DAILY, First dose on Sun09/11/22 at 0930 $Given 09/17/2022 9:37 AM CDT 5 mg $Given 09/16/2022 9:02 AM CDT 5 mg $Given 09/15/2022 8:54 AM CDT 5 mg senna-docusate (SENOKOT-S/PERICOLACE) 8.6-50 MG per tablet 1 tablet 1 tablet, Oral, 2 TIMES DAILY PRN, constipation, Starting on 09/10/22 at 0039, If no bowel movement in 24 hours, increase to 2 tablets PO. Hold for loose stools. This is the first step of a three step constipation treatment. Hold for loose stools. senna-docusate (SENOKOT-S/PERICOLACE) 8.6-50 MG per tablet 2 tablet 2 tablet, Oral, 2 TIMES DAILY PRN, constipation, Starting on Sun09/10/22 at 0039, Hold for loose stools. This is the first step of a three step constipation treatment. Hold for loose stools. sulfamethoxazole-trimethoprim (BACTRIM DS) 800-160 MG per tablet 1 tablet Routine, 1 tablet, Oral, 2 TIMES DAILY WITH MEALS, First dose on Sun09/13/22 at 1200, Indications: Sepsis, Urinary Tract Infection $Given 09/14/2022 9:38 AM CDT 1 tablet $Given 09/13/2022 6:41 PM CDT 1 tablet $Given 09/13/2022 1:02 PM CDT 1 tablet thiamine (B-1) tablet 100 mg 100 mg, Oral, DAILY, First dose on 09/16/22 at 1830 $Given 09/17/2022 9:36 AM CDT 100 mg $Given 09/16/2022 8:12 PM CDT 100 mg vancomycin (VANCOCIN) 2,000 mg in 0.9% NaCl 500 mL intermittent infusion STAT, 2,000 mg, Intravenous, ONCE, On 09/09/22 at 2120, For 1 dose, Possible Vesicant. Infuse doses less than 1,250 mg over 1 hour. Infuse doses between 1,250 mg and less than 1,750 mg over 90 minutes. Infuse doses 1,750 mg and above over 2 hours., Indications: Pyelonephritis $New Bag 09/09/2022 11:28 PM CDT 2,000 mg documented in this encounter Active and Recently Administered Medications Times are shown in CDT. Scheduled Medication Order 09/15/2022 09/16/2022 09/17/2022 amLODIPine (NORVASC) tablet 5 mg (CANCELED) 5 mg, Oral, DAILY, First dose on [facility] 09/14/22 at 0800, Hold for SBP < 110 0854 ($Given - Provider: Anum Coy RN) buprenorphine HCl-naloxone HCl (SUBOXONE) 8-2 MG per film 1 Film 1 Film, Sublingual, DAILY, First dose on 09/11/22 at 0930, Give SUBLINGUAL. Place under the tongue near the base on right or left side and leave until completely dissolved. Cutting film not recommended. Patient should not swallow, chew, or move film. Patient should not eat/drink until film is completely dissolved. 0855 ($Given - Provider: Anum Coy RN) 0902 ($Given - Provider: Anum Coy RN) 0936 ($Given - Provider: Alen Betts RN) ciprofloxacin (CILOXAN) 0.3 % ophthalmic solution 1 drop 1 drop, Right Eye, 4 TIMES DAILY, First dose on Sun09/15/22 at 1600 1748 ($Given - Provider: Anum Coy RN - Comment: had to message for it to be sent)2015 ($Given - Provider: Maya Medina RN) 0904 ($Given - Provider: Anum Coy RN)1322 ($Given - Provider: Anum Coy RN)1544 ($Given - Provider: Anum Coy RN)2012 ($Given - Provider: Anum Coy RN) 0938 ($Given - Provider: Alen Betts RN)1144 ($Given - Provider: Alen Betts RN)1700 ($Given - Provider: Vi Browning RN)1999 (Canceled Entry - Provider: Orders Generic Provider - Comment: Automatically canceled at discontinue of medication order) folic acid (FOLVITE) tablet 1 mg 1 mg, Oral, DAILY, First dose on Sun09/16/22 at 1430 1543 ($Given - Provider: Anum Coy RN) 0936 ($Given - Provider: Alen Betts RN) levETIRAcetam (KEPPRA) tablet 1,000 mg 1,000 mg, Oral, 2 TIMES DAILY, First dose (after last modification) on Sun09/12/22 at 2000 0853 ($Given - Provider: Anum Coy RN)2014 ($Given - Provider: Maya Medina RN) 0902 ($Given - Provider: Anum Coy RN)2011 ($Given - Provider: Anum Coy RN) 0936 ($Given - Provider: Alen Betts RN)1999 (Canceled Entry - Provider: Orders Generic Provider - Comment: Automatically canceled at discontinue of medication order) levofloxacin (LEVAQUIN) tablet 500 mg (CANCELED) Routine, 500 mg, Oral, DAILY, First dose on Sun09/14/22 at 1030, Administer at least 2 hours before or 4 hours after aluminum, calcium, iron, zinc or magnesium containing medications. May be taken with food or on an empty stomach. Do not administer alone with a dairy product like milk or yogurt or calcium-fortified juice, but may be administered with a meal containing dairy. Hold tube feeding 1 hour before and 1 hour after administration, Indications: Urinary Tract Infection 0854 ($Given - Provider: Anum Coy RN) lisinopril (ZESTRIL) tablet 20 mg 20 mg, Oral, DAILY, First dose on [facility] 09/14/22 at 1630 0854 ($Given - Provider: Anum Coy RN) 0902 ($Given - Provider: Anum Coy RN) 0936 ($Given - Provider: Alen Betts RN) magnesium oxide (MAG-OX) tablet 400 mg (COMPLETED) 400 mg, Oral, EVERY 6 HOURS, First dose on [facility] 09/14/22 at 1030, For 3 doses 0000 ($Given - Provider: Lynda Ruiz RN) magnesium oxide (MAG-OX) tablet 400 mg (CANCELED) 400 mg, Oral, DAILY, First dose on Sun09/15/22 at 0800 0854 ($Given - Provider: Anum Coy RN) magnesium oxide (MAG-OX) tablet 400 mg (COMPLETED) 400 mg, Oral, EVERY 4 HOURS, First dose on Sun09/15/22 at 1300, For 2 doses 1314 ($Given - Provider: Anum Coy RN)1747 ($Given - Provider: Anum Coy RN) magnesium oxide (MAG-OX) tablet 400 mg (CANCELED) 400 mg, Oral, 2 TIMES DAILY, First dose (after last modification) on 09/16/22 at 0800 0902 ($Given - Provider: Anum Coy RN) magnesium oxide (MAG-OX) tablet 400 mg 400 mg, Oral, EVERY 4 HOURS, First dose on Sun09/17/22 at 1430, For 2 doses, Avoid using oral magnesium if patient has current diarrhea. Magnesium level 1.6-2 mg/dL Administer 400 mg ORAL magnesium x 2 doses and recheck magnesium level the AM after the last ORAL dose. Ordered from the Magnesium replacement order set., Magnesium Replacement: Magnesium level 1.6-2 mg/dL, Recheck: Magnesium level next AM 1412 (Not Given - Provider: Alen Betts RN - Reason: Patient/family refused)1830 (Canceled Entry - Provider: Orders Generic Provider - Comment: Automatically canceled at discontinue of medication order) magnesium oxide (MAG-OX) tablet 800 mg 800 mg, Oral, 2 TIMES DAILY, First dose (after last modification) on 09/16/22 at 1500 1543 ($Given - Provider: Anum Coy RN)2011 ($Given - Provider: Anum Coy RN) 0936 ($Given - Provider: Alen Betts RN)1999 (Canceled Entry - Provider: Orders Generic Provider - Comment: Automatically canceled at discontinue of medication order) miconazole (MICATIN) 2 % powder Topical, 2 TIMES DAILY, First dose on 09/10/22 at 0900, Apply to abdominal folds 0855 (Not Given - Provider: Anum Coy RN - Reason: Patient/family refused)2017 (Not Given - Provider: Maya Medina RN - Reason: Patient/family refused) 902 (Not Given - Provider: Anum Coy RN - Reason: Patient/family refused)2013 (Not Given - Provider: Anum Coy RN - Reason: Patient/family refused) 0937 ($Given - Provider: Alen Betts RN) pantoprazole (PROTONIX) EC tablet 40 mg 40 mg, Oral, DAILY, First dose on 09/10/22 at 0800, DO NOT CRUSH. 0854 ($Given - Provider: Anum Coy RN) 0902 ($Given - Provider: Anum Coy RN) 0937 ($Given - Provider: Alen Betts RN) PARoxetine (PAXIL) tablet 60 mg 60 mg, Oral, DAILY, First dose on 09/10/22 at 1100 0854 ($Given - Provider: Anum Coy RN) 0902 ($Given - Provider: Anum Coy RN) 0937 ($Given - Provider: Alen Betts RN) pregabalin (LYRICA) capsule 25 mg 25 mg, Oral, DAILY, First dose on 09/11/22 at 0930 0854 ($Given - Provider: Anum Coy RN) 0902 ($Given - Provider: Anum Coy RN) 0936 ($Given - Provider: Alen Betts, RN) rosuvastatin (CRESTOR) tablet 5 mg 5 mg, Oral, DAILY, First dose on 09/11/22 at 0930 0854 ($Given - Provider: Anum Coy, RN) 0902 ($Given - Provider: Anum Coy, RN) 0937 ($Given - Provider: Alen Betts, RN) thiamine (B-1) tablet 100 mg 100 mg, Oral, DAILY, First dose on 09/16/22 at 1830 2011 ($Given - Provider: Anum Coy RN) 0936 ($Given - Provider: Alen Betts, ROQUE) PRN Medication Order 09/15/2022 09/16/2022 09/17/2022 acetaminophen (TYLENOL) solution 650 mg(Linked Group 1) 650 mg, Per NG tube, EVERY 4 HOURS PRN, mild pain, Starting on 09/10/22 at 0039, Maximum acetaminophen dose from all sources= 75 mg/kg/day not to exceed 4 grams/day. acetaminophen (TYLENOL) tablet 650 mg(Linked Group 1) 650 mg, Oral, EVERY 4 HOURS PRN, mild pain, Starting on 09/10/22 at 0039, Maximum acetaminophen dose from all sources = 75 mg/kg/day not to exceed 4 grams/day. bisacodyl (DULCOLAX) suppository 10 mg 10 mg, Rectal, DAILY PRN, constipation, Starting on 09/10/22 at 0039, Hold for loose stools. This is the third step of a three step constipation treatment. Hold for loose stools. dextrose 50 % injection 25-50 mL(Linked Group 2) 25-50 mL, Intravenous, EVERY 15 MIN PRN, low blood sugar, Administer over 1-5 Minutes, Starting on 09/10/22 at 0039, Use if have IV access, BG less than 70 mg/dL and meet dose criteria below: Dose if conscious and alert (or disorientated) and NPO = 25 mL Dose if unconscious / not alert = 50 mL Give first dose for initial blood glucose less than 70 mg/dL. If blood glucose at 15 minute recheck is less than or equal to 100 mg/dL continue to administer carbohydrate treatment every 15 minutes, as needed, based on blood glucose and assessment parameters until blood glucose level is above 100 mg/dL. Vesicant. glucagon injection 1 mg(Linked Group 2) 1 mg, Subcutaneous, EVERY 15 MIN PRN, low blood sugar, May repeat x 1 only, Starting on 09/10/22 at 0039, May give SQ or IM. ONLY use glucagon IF patient has NO IV access AND is UNABLE to swallow AND blood glucose is LESS than or EQUAL to 50 mg/dL. glucose gel 15-30 g(Linked Group 2) 15-30 g, Oral, EVERY 15 MIN PRN, low blood sugar, Starting on 09/10/22 at 0039, Give first dose for initial blood glucose less than 70 mg/dL per the dosing instructions below. If blood glucose at 15 minute rechecks is still less than or equal to 100 mg/dL, continue to administer doses per blood glucose parameters every 15 minutes, as needed, until blood glucose level is above 100 mg/dL. Dosing Instructions: ~If patient is conscious and able to swallow and NO enteral tube For initial BG 51-69mg/dL OR 15 minute recheck BG 51- 100 mg/dL - give 15 g For BG less than or equal to 50 mg/dL - give 30 g ~ If Enteral tube For initial BG 51-69mg/dL OR 15 minute recheck BG 51- 100 mg/dL - give apple juice 120 mL (4 oz or 15 g of CHO) via enteral tube For BG less than or equal to 50 mg/dL - Give apple juice 240 mL (8 oz or 30 g of CHO) via enteral tube ~Oral gel is preferable for conscious and able to swallow patient. ~IF gel unavailable or patient refuses may provide apple juice per Enteral tube dosing instructions. Document juice on I and O flowsheet. hydrALAZINE (APRESOLINE) injection 10 mg 10 mg, Intravenous, EVERY 4 HOURS PRN, high blood pressure, give for SBP > 180, Starting on 09/10/22 at 1505 ondansetron (ZOFRAN ODT) ODT tab 4 mg(Linked Group 3) 4 mg, Oral, EVERY 6 HOURS PRN, nausea, vomiting, Starting on 09/10/22 at 0039, This is Step 1 of nausea and vomiting management. If nausea not resolved in 15 minutes, go to Step 2 prochlorperazine (COMPAZINE). With dry hands, peel back foil backing and gently remove tablet. Do not push oral disintegrating tablet through foil backing. Administer immediately on tongue and oral disintegrating tablet dissolves in seconds, then swallow with saliva. Liquid not required. ondansetron (ZOFRAN) injection 4 mg(Linked Group 3) 4 mg, Intravenous, EVERY 6 HOURS PRN, nausea, vomiting, Administer over 2-5 Minutes, Starting on 09/10/22 at 0039, Give IF patient unable to tolerate oral medication. This is Step 1 of nausea and vomiting management. If nausea not resolved in 15 minutes, go to Step 2 prochlorperazine (COMPAZINE). Irritant. polyethylene glycol (MIRALAX) Packet 17 g 17 g, Oral, DAILY PRN, constipation, Starting on 09/10/22 at 0039, Give in 8oz of water, juice, or soda. Hold for loose stools. This is the second step of a three step constipation treatment. 1 Packet = 17 grams. Mix each gram with at least 1/2 ounce (15 mL) of water - 8 ounces for 17 g dose, 4 ounces for 8.5 g dose, 2 ounces for 4 g dose. Follow with the same volume of water. Hold for loose stools unless being administered as part of a bowel prep regimen or bowel clean out. prochlorperazine (COMPAZINE) injection 10 mg(Linked Group 4) 10 mg, Intravenous, EVERY 6 HOURS PRN, nausea, vomiting, Administer over 1-2 Minutes, Starting on 09/10/22 at 0039, IF patient unable to tolerate oral medication. This is Step 2 of nausea and vomiting management. Give if nausea not resolved 15 minutes after giving ondansetron (ZOFRAN). prochlorperazine (COMPAZINE) suppository 25 mg(Linked Group 4) 25 mg, Rectal, EVERY 12 HOURS PRN, nausea, vomiting, Starting on 09/10/22 at 0039, This is Step 2 of nausea and vomiting management. Give if nausea not resolved 15 minutes after giving ondansetron (ZOFRAN). prochlorperazine (COMPAZINE) tablet 10 mg(Linked Group 4) 10 mg, Oral, EVERY 6 HOURS PRN, vomiting, Starting on 09/10/22 at 0039, This is Step 2 of nausea and vomiting management. Give if nausea not resolved 15 minutes after giving ondansetron (ZOFRAN). senna-docusate (SENOKOT-S/PERICOLACE) 8.6-50 MG per tablet 1 tablet(Linked Group 5) 1 tablet, Oral, 2 TIMES DAILY PRN, constipation, Starting on 09/10/22 at 0039, If no bowel movement in 24 hours, increase to 2 tablets PO. Hold for loose stools. This is the first step of a three step constipation treatment. Hold for loose stools. senna-docusate (SENOKOT-S/PERICOLACE) 8.6-50 MG per tablet 2 tablet(Linked Group 5) 2 tablet, Oral, 2 TIMES DAILY PRN, constipation, Starting on 09/10/22 at 0039, Hold for loose stools. This is the first step of a three step constipation treatment. Hold for loose stools. Linked Groups Order Group 1: acetaminophen (TYLENOL) tablet 650 mgJump to med 650 mg, Oral, EVERY 4 HOURS PRN, mild pain, Starting on 09/10/22 at 0039, Maximum acetaminophen dose from all sources = 75 mg/kg/day not to exceed 4 grams/day. Or acetaminophen (TYLENOL) solution 650 mgJump to med 650 mg, Per NG tube, EVERY 4 HOURS PRN, mild pain, Starting on 09/10/22 at 0039, Maximum acetaminophen dose from all sources= 75 mg/kg/day not to exceed 4 grams/day. Group 2: glucose gel 15-30 gJump to med 15-30 g, Oral, EVERY 15 MIN PRN, low blood sugar, Starting on 09/10/22 at 0039, Give first dose for initial blood glucose less than 70 mg/dL per the dosing instructions below. If blood glucose at 15 minute rechecks is still less than or equal to 100 mg/dL, continue to administer doses per blood glucose parameters every 15 minutes, as needed, until blood glucose level is above 100 mg/dL. Dosing Instructions: ~If patient is conscious and able to swallow and NO enteral tube For initial BG 51-69mg/dL OR 15 minute recheck BG 51- 100 mg/dL - give 15 g For BG less than or equal to 50 mg/dL - give 30 g ~ If Enteral tube For initial BG 51- 69mg/dL OR 15 minute recheck BG 51- 100 mg/dL - give apple juice 120 mL (4 oz or 15 g of CHO) via enteral tube For BG less than or equal to 50 mg/dL - Give apple juice 240 mL (8 oz or 30 g of CHO) via enteral tube ~Oral gel is preferable for conscious and able to swallow patient. ~IF gel unavailable or patient refuses may provide apple juice per Enteral tube dosing instructions. Document juice on I and O flowsheet. Or dextrose 50 % injection 25-50 mLJump to med 25-50 mL, Intravenous, EVERY 15 MIN PRN, low blood sugar, Administer over 1-5 Minutes, Starting on 09/10/22 at 0039, Use if have IV access, BG less than 70 mg/dL and meet dose criteria below: Dose if conscious and alert (or disorientated) and NPO = 25 mL Dose if unconscious / not alert = 50 mL Give first dose for initial blood glucose less than 70 mg/dL. If blood glucose at 15 minute recheck is less than or equal to 100 mg/dL continue to administer carbohydrate treatment every 15 minutes, as needed, based on blood glucose and assessment parameters until blood glucose level is above 100 mg/dL. Vesicant. Or glucagon injection 1 mgJump to med 1 mg, Subcutaneous, EVERY 15 MIN PRN, low blood sugar, May repeat x 1 only, Starting on 09/10/22 at 0039, May give SQ or IM. ONLY use glucagon IF patient has NO IV access AND is UNABLE to swallow AND blood glucose is LESS than or EQUAL to 50 mg/dL. Group 3: ondansetron (ZOFRAN ODT) ODT tab 4 mgJump to med 4 mg, Oral, EVERY 6 HOURS PRN, nausea, vomiting, Starting on 09/10/22 at 0039, This is Step 1 of nausea and vomiting management. If nausea not resolved in 15 minutes, go to Step 2 prochlorperazine (COMPAZINE). With dry hands, peel back foil backing and gently remove tablet. Do not push oral disintegrating tablet through foil backing. Administer immediately on tongue and oral disintegrating tablet dissolves in seconds, then swallow with saliva. Liquid not required. Or ondansetron (ZOFRAN) injection 4 mgJump to med 4 mg, Intravenous, EVERY 6 HOURS PRN, nausea, vomiting, Administer over 2-5 Minutes, Starting on 09/10/22 at 0039, Give IF patient unable to tolerate oral medication. This is Step 1 of nausea and vomiting management. If nausea not resolved in 15 minutes, go to Step 2 prochlorperazine (COMPAZINE). Irritant. Group 4: prochlorperazine (COMPAZINE) injection 10 mgJump to med 10 mg, Intravenous, EVERY 6 HOURS PRN, nausea, vomiting, Administer over 1-2 Minutes, Starting on 09/10/22 at 0039, IF patient unable to tolerate oral medication. This is Step 2 of nausea and vomiting management. Give if nausea not resolved 15 minutes after giving ondansetron (ZOFRAN). Or prochlorperazine (COMPAZINE) tablet 10 mgJump to med 10 mg, Oral, EVERY 6 HOURS PRN, vomiting, Starting on 09/10/22 at 0039, This is Step 2 of nausea and vomiting management. Give if nausea not resolved 15 minutes after giving ondansetron (ZOFRAN). Or prochlorperazine (COMPAZINE) suppository 25 mgJump to med 25 mg, Rectal, EVERY 12 HOURS PRN, nausea, vomiting, Starting on 09/10/22 at 0039, This is Step 2 of nausea and vomiting management. Give if nausea not resolved 15 minutes after giving ondansetron (ZOFRAN). Group 5: senna-docusate (SENOKOT-S/PERICOLACE) 8.6-50 MG per tablet 1 tabletJump to med 1 tablet, Oral, 2 TIMES DAILY PRN, constipation, Starting on 09/10/22 at 0039, If no bowel movement in 24 hours, increase to 2 tablets PO. Hold for loose stools. This is the first step of a three step constipation treatment. Hold for loose stools. Or senna-docusate (SENOKOT-S/PERICOLACE) 8.6-50 MG per tablet 2 tabletJump to med 2 tablet, Oral, 2 TIMES DAILY PRN, constipation, Starting on 09/10/22 at 0039, Hold for loose stools. This is the first step of a three step constipation treatment. Hold for loose stools. 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
--- OUTSIDE RECORDS SUMMARY | 2023-04-26 00:03 | XMS_ITS | Encounter Summary ---
Author Name Unknown Organization [facility] Address [address] [place] [address]. [place] [address] Care Team Providers Care Turn Laster Name Role Phone Edu Crawford DPBharath Unavailable [phone] Enrico Felton DO Unavailable [phone] Maddie Mae Unavailable Unavailable Enrico Felton DO Primary Care Provider [phone] Encounter Details Date Type Department Care Team (Late st Contact Info) Description 09/04/2022 Telephone [facility] [address] [place] [id number] [place] [address] [place] [address] Social History Tobacco Use Types Packs/Day Years [...] Never 02/20/2022 How often do you attend mandaen or advent serv ices? Patient declined 02/20/2022 Do you belong to any clubs o r organizations such as mandaen groups, unions, fraternal or athletic groups, or [...] Answer Date Recorded PHQ-2 Score 1 02/20/2022 [facility] - Occupational Stress [...] place to sleep or slept in a skilled nursing (including now)? No 02/20/2022 Sex and Gender Information Value Date Recorded Sex Assigned at Not on file Gender Identity Not on file Sexual Orientation Not on file COVID-19 Exposure Response Date Recorded In the last 10 days, have yo u been in contact with someone who was confirmed or suspected to have Coronavirus/COVID-19? No / Unsure 08/30/2022 4:10 PM CDT documented as of this encounter Miscellaneous Notes * Telephone Encounter - Melida Pickering CMA - 09/04/2022 4:28 PM CDT Summary: Patient is due/failing the following: COLONOSCOPY and PAP Reviewed: [] CARE EVERYWHERE [] LAST OV NOTE [] FYI TAB [] MYCHART ACTIVE? [] LAST PANEL ENCOUNTER [] FUTURE APPTS [] IMMUNIZATIONS [] Media Tab Action needed: Patient needs office visit for pap. and Patient needs referral/order: colonoscopy Type of outreach: patient has future cecile with Dr. FROEMAN on 10/03/2022 Melida Pickering/JAYCEE [facility] \ documented in this encounter Plan of Treatment Not on file documented as of this encounter Goals Goal Patient Goal Type Associated Problems Recent Progress Patient-Stated? Author Financial Wellbeing General Yes Rosey Alexander, DYE PADDER OPERATOR documented as of this encounter Visit Diagnoses Not on filedocumented in this encounter Additional Health Concerns Infection Onset Date Last Indicated Resolved Time 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 per 09/01/16 blacktop paver operator note; left foot tissue 10/08/16 10/11/2018 02/27/2019 Assessment Noted Time PHQ-9 Depression Total Score: 5 02/21/20 22 2:07 PM HIDE OR SKIN BUFFER documented as of this encounter Care Teams Turn Laster Relationship Specialty [place] [address] [place] [address] PCP - General Family Medicine 06/30/22 Edu Crawford DPM [address] [facility] [address] [place] [address] Podiatry 10/18/16 [place] [address] [place] [address] Assigned PCP 08/29/20 Maddie Mae Personal Advocate & Liaison (PAL) Family Medicine 12/28/21 documented as of this encounter
--- OUTSIDE RECORDS SUMMARY | 2023-04-26 00:03 | XMS_ITS | Encounter Summary ---
Author Name Unknown Organization [facility] Address [address] [place] [address] Care Team Providers Care Dental Resident Name Role Phone Yvette Edu DPBharath Unavailable [phone] Enrico Felton DO Unavailable [phone] Maddie Mae Unavailable Unavailable Enrico Felton DO Primary Care Provider [phone] Reason for Visit * Reason Onset Date Comments Orders 08/02/2022 Encounter Details Date Type Department Care Team (Late st Contact Info) Description 08/02/[address] [facility] [id number] [place] [id number] [place] [id number] [place] [address] Orders Social History Tobacco Use Types Packs/Day Years [...] Never 02/20/2022 How often do you attend baptist or scientologist serv ices? Patient declined 02/20/2022 Do you belong to any clubs o r organizations such as baptist groups, unions, fraternal or athletic groups, or [...] Answer Date Recorded PHQ-2 Score 1 02/20/2022 [facility] - Occupational Stress Questionnaire Answer Date [...] place to sleep or slept in a care home (including now)? No 02/20/2022 Sex and Gender Information Value Date Recorded Sex Assigned at Not on file Gender Identity Not on file Sexual Orientation Not on file documented as of this encounter Miscellaneous Notes * Telephone Encounter - Carol Dickerson RN - 08/10/2022 1:17 PM CDT Radha called and did not get VM that was left on the . Relayed providers message SONA Smith RNN * Telephone Encounter - Carol Dickerson RN - 08/02/2022 12:25 PM CDT LM with message below for Radha Rodriguez RN BSN * Telephone Encounter - Enrico Felton DO - 08/02/2022 12:09 PM CDT Most recent nurse triage note reviewed. I have not seen patient since her discharge from hospital on 06/18/2022. Medicare rules require a visit within 30 days of start of home care, and patient has not seen me for a laui-bu-hsis visit since February 2022. Considering this, I cannot sign any furtherhome care orders due to Medicare rules. Enrico Felton DO on 08/02/2022 at 12:10 PM * Telephone Encounter - Katie Velasquez RN - 08/02/2022 11:31 AM CDT Radha [facility] accounting clerks supervisor calling to see if can get to sign order. Says patient has not been consistent in seeing and she is aware of that. Patient is refusing home care services. Was seen [facility] for possible CVA and then was seen for home care for one visit. did sign some of the orders, but says he did not plan of care was not signed as felt patient needed to be seen for him to sign order. They understand that rational. However, since they only saw her once, no future visits are planned at this time because patient is refusing is wonderingif will sign the order for the one visit. Call her back if we need another copy faxed to us or any further questions. Radha--[phone]. Katie Velasquez R.N. documented in this encounter Plan of Treatment Not on file documented as of this encounter Goals Goal Patient Goal Type Associated Problems Recent Progress Patient-Stated? 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 per 09/01/16 stitcher special machine note; left foot tissue 10/08/16 10/11/2018 02/27/2019 Assessment Noted Time PHQ-9 Depression Total Score: 5 02/21/20 22 2:07 PM BIOFUELS PRODUCTION TECHNICIAN documented as of this encounter Care Teams Dental Resident Relationship Specialty [place] [address] [place] [address] PCP - General Family Medicine 06/30/22 Edu Crawford DPM [address] [facility] [address] [place] [address] Podiatry 10/18/16 [place] [address] [place] [address] Assigned PCP 08/29/20 Maddie Mae Personal Advocate & Liaison (PAL) Family Medicine 12/28/21 documented as of this encounter
--- OUTSIDE RECORDS SUMMARY | 2023-04-26 00:03 | XMS_ITS | Encounter Summary ---
Author Name Unknown Organization [facility] Address [address] [place] [address] Care Team Providers Care Military Communications Specialist Name Role Phone [place] Edu DPBharath Unavailable [phone] Enrico Felton DO Unavailable [phone] Maddie Mae Unavailable Unavailable Enrico Felton DO Primary Care Provider [phone] Reason for Visit * Reason Onset Date Comments Refill Request 07/24/2022 omeprazole (PRIL OSEC) [address] capsule Encounter Details Date Type Department Care Team (Late st Contact Info) Description 07/24/[address] [phone] Enrico Felton DO [address] [place] [address] Refill Request (omeprazole (PRILOSEC) [address] capsule ) Social History Tobacco Use Types Packs/Day Years [...] Never 02/20/2022 How often do you attend buddhism or orthodoxy serv ices? Patient declined 02/20/2022 Do you belong to any clubs o r organizations such as buddhism groups, unions, fraternal or athletic groups, or [...] Answer Date Recorded PHQ-2 Score 1 02/20/2022 [facility] - Occupational Stress Questionnaire Answer Date Recorded [...] a group home (including now)? No 02/20/2022 Sex and Gender Information Value Date Recorded Sex Assigned at Not on file Gender Identity Not on file Sexual Orientation Not on file documented as of this encounter Miscellaneous Notes * Telephone Encounter - Lulu Samano MA - 07/26/2022 11:16 AM CDT Phone number cannot be dialed. Letter mailed. Lulu Samano, Director Instrumentation * Telephone Encounter - America Green - 07/25/2022 9:05 AM CDT Plivo message sent to patient to schedule America Green/ Director Instrumentation * Telephone Encounter - Enrico Felton DO - 07/24/2022 4:34 PM CDT Patient needs to follow-up with me or other provider for continued safe medication management sincetime of last hospital discharge. * Telephone Encounter - Katie Velasquez RN - 07/24/2022 12:30 PM CDT Routing refill request to provider for review/approval because: Drug not active on patient's medication list--please review for order. omeprazole (PRILOSEC) [address] capsule The original prescription was discontinued on 10/25/2021 by Cookie Boykin MD for the following reason: Stop at Discharge. Renewing this prescription may not be appropriate. * Telephone Encounter - Kris Rustam - 07/24/2022 7:18 AM CDT This prescription was not ordered by Dr. Felton. documented in this encounter Plan of Treatment Not on file documented as of this encounter Goals Goal Patient Goal Type Associated Problems Recent Progress Patient-Stated? Author Financial Wellbeing General Yes Rosey Alexander, MACHINE COIL ASSEMBLER documented as of this encounter Visit Diagnoses Diagnosis Gastroesophageal reflux disease Esophageal reflux documented in this encounter Additional Health Concerns Infection Onset Date Last Indicated Resolved Time 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 per 09/01/16 manager rn case note; left foot tissue 10/08/16 10/11/2018 02/27/2019 Assessment Noted Time PHQ-9 Depression Total Score: 5 02/21/20 22 2:07 PM ROUGE MILLER documented as of this encounter Care Teams Military Communications Specialist Relationship Specialty [place] [address] [place] [address] PCP - General Family Medicine 06/30/22 Edu Crawford DPM [address] [facility] [address] [place] [address] Podiatry 10/18/16 [place] [address] [place] [address] Assigned PCP 08/29/20 Maddie Mae Personal Advocate & Liaison (PAL) Family Medicine 12/28/21 documented as of this encounter
--- OUTSIDE RECORDS SUMMARY | 2023-04-26 00:03 | XMS_ITS | Encounter Summary ---
Author Name Unknown Organization [facility] Address [address] [place] [address] Care Team Providers Care Professor Of Special Education Name Role Phone Edu Crawford DPM Unavailable [phone] Enrico Felton DO Unavailable [phone] Maddie Mae Unavailable Unavailable Enrico Felton DO Primary Care Provider [phone] Encounter Details Date Type Department Care Team (Late st Contact Info) Description 07/25/2022 [facility] [address] [phone] America Green Social History Tobacco Use Types Packs/Day Years [...] Never 02/20/2022 How often do you attend hoahaoism or jain serv ices? Patient declined 02/20/2022 Do you belong to any clubs o r organizations such as hoahaoism groups, unions, fraternal or athletic groups, or [...] Answer Date Recorded PHQ-2 Score 1 02/20/2022 [facility] - [...] Author Financial Wellbeing General Yes Rosey Alexander, WALL COVERING CONTRACTOR documented as of this encounter Visit Diagnoses Not on filedocumented in this encounter Additional Health Concerns Infection Onset Date Last Indicated Resolved Time 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 per 09/01/16 efficiency analyst note; left foot tissue 10/08/16 10/11/2018 02/27/2019 Assessment Noted Time PHQ-9 Depression Total Score: 5 02/21/20 22 2:07 PM TRANSPORT AIRCREWMAN documented as of this encounter Care Teams Professor Of Special Education Relationship Specialty [place] [address] [place] [address] PCP - General Family Medicine 06/30/22 Edu Crawford DPM [address] [facility] [address] [place] [address] Podiatry 10/18/16 [place] [address] [place] [address] Assigned PCP 08/29/20 Maddie Mae Personal Advocate & Liaison (PAL) Family Medicine 12/28/21 documented as of this encounter
--- OUTSIDE RECORDS SUMMARY | 2023-04-26 00:03 | XMS_ITS | Encounter Summary ---
Author Name Unknown Organization [facility] Address [address] [place] [address] Care Team Providers Care Insights Manager Name Role Phone Edu Crawford DPM Unavailable [phone] Enrico Felton DO Unavailable [phone] Maddie Mae Unavailable Unavailable Enrico Felton DO Primary Care Provider [phone] Encounter Details Date Type Department Care Team (Latest Contact Info) Description 08/30/2022 Travel Social History Tobacco Use Types Packs/Day [...] Never 02/20/2022 How often do you attend baptism or taoist serv ices? Patient declined 02/20/2022 Do you belong to any clubs o r organizations such as baptism groups, unions, fraternal or athletic groups, or [...] Answer Date Recorded PHQ-2 Score 1 02/20/2022 [facility] Occupat ional Health - Occupational [...] place to sleep or slept in a snf (including now)? No 02/20/2022 Sex and Gender [...] Author Financial Wellbeing General Yes Rosey Alexander, JOY LOADING MACHINE OPERATOR documented as of this encounter Visit Diagnoses Not on filedocumented in this encounter Additional Health Concerns Infection Onset Date Last Indicated Resolved Time 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 per 09/01/16 bee tender note; left foot tissue 10/08/16 10/11/2018 02/27/2019 Assessment Noted Time PHQ-9 Depression Total Score: 5 02/21/20 22 2:07 PM STAR ROUTE MAIL DRIVER documented as of this encounter Care Teams Insights Manager Relationship Specialty [place] [address] [place] [address] PCP - General Family Medicine 06/30/22 [place] D[place] [address] [facility] [address] [place] [address] Podiatry 10/18/16 [place] [address] [place] [address] Assigned PCP 08/29/20 Maddie Mae Personal Advocate & Liaison (PAL) Family Medicine 12/28/21 documented as of this encounter
--- OUTSIDE RECORDS SUMMARY | 2023-04-26 00:03 | XMS_ITS | Encounter Summary ---
Author Name Unknown Organization [facility] Address [address] [place] [address] Care Team Providers Care Graduate Teaching Associate Name Role Phone Edu Crawford DPM Unavailable [phone] Enrico Felton DO Unavailable Maddie Mae Unavailable Unavailable Enrico Felton DO Primary Care Provider [phone] Encounter Details Date Type Department Care Team (Latest Contact Info) Description 09/09/2022 Travel Social History Tobacco Use Types Packs/Day [...] Answer Date Recorded PHQ-2 Score 1 02/20/2022 [facility] ional Health - Occupational [...] place to sleep or slept in a long term (including now)? No 02/20/2022 Sex and Gender [...] Author Financial Wellbeing General Yes Rosey Alexander, MEDICAL REGISTRAR documented as of this encounter Visit Diagnoses Not on filedocumented in this encounter Additional Health Concerns Infection Onset Date Last Indicated Resolved Time 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 per 09/01/16 tape sewer note; left foot tissue 10/08/16 10/11/2018 02/27/2019 Assessment Noted Time PHQ-9 Depression Total Score: 5 02/21/20 22 2:07 PM LANG PATH THERAPIST documented as of this encounter Care Teams Graduate Teaching Associate Relationship Specialty [place] [address] [place] [address] PCP - General Family Medicine 06/30/22 [place] [address] [facility] [address] [place] [address] Podiatry 10/18/16 [place] [address] [place] [address] Assigned PCP 08/29/20 Maddie Mae Personal Advocate & Liaison (PAL) Family Medicine 12/28/21 documented as of this encounter
--- OUTSIDE RECORDS SUMMARY | 2023-04-26 00:04 | XMS_ITS | Encounter Summary ---
Author Name Unknown Organization [facility] Address [address] [place] [address] Care Team Providers Care Head Of Measurement & Insights Name Role Phone Edu Crawford DPM Unavailable [phone] Enrico Felton DO Unavailable [phone] Maddie Mae Unavailable Unavailable No Ref-Primary, Physician Primary Care Provider Reason for Visit * Reason Onset Date Comments Panel Management 06/15/2022 pap Encounter Details Date Type Department Care Team (Late st Contact Info) Description 06/15/2022 Telephone [facility] [id number] [place] [phone] [place] [id number] [place] [address] Panel Management (pap) Social History Tobacco Use Types Packs/Day Years [...] Never 02/20/2022 How often do you attend religion or worship serv ices? Patient declined 02/20/2022 Do you belong to any clubs o r organizations such as religion groups, unions, fraternal or athletic groups, or [...] Answer Date Recorded PHQ-2 Score 1 02/20/2022 [facility] of Occupat ional Health - [...] place to sleep or slept in a custodial (including now)? No 02/20/2022 Sex and Gender Information Value Date Recorded Sex Assigned at Not on file Gender Identity Not on file Sexual Orientation Not on file documented as of this encounter Miscellaneous Notes * Telephone Encounter - Melida Pickering CMA - 06/15/2022 8:10 AM CDT Summary: Patient is due/failing the following: PAP Reviewed: [] CARE EVERYWHERE [] LAST OV NOTE [] FYI TAB [] MYCHART ACTIVE? [] LAST PANEL ENCOUNTER [] FUTURE APPTS [] IMMUNIZATIONS [] Media Tab Action needed: Patient needs office visit for pap. Type of outreach: per chart will postpone until 02/2023 per Provider Melida Pickering/JAYCEE [facility] documented in this encounter Plan of Treatment Not on file documented as of this encounter Goals Goal Patient Goal Type Associated Problems Recent Progress Patient-Stated? Author Financial Wellbeing General Yes Rosey Alexander, BIN TRIPPER OPERATOR documented as of this encounter Visit Diagnoses Not on filedocumented in this encounter Additional Health Concerns Infection Onset Date Last Indicated Resolved Time 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 per 09/01/16 cleaning specialist note; left foot tissue 10/08/16 10/11/2018 02/27/2019 Assessment Noted Time PHQ-9 Depression Total Score: 5 02/21/20 22 2:07 PM SUPERINTENDENT OPERATING documented as of this encounter Care Teams Head Of Measurement & Insights Relationship Specialty Start Date End Date No Ref-Primary, Physician PCP - General 02/20/22 06/29/22 Eud Crawford D[place] [address] [facility] [address] [place] [address] Podiatry 10/18/16 [place] [address] [place] [address] Assigned PCP 08/29/20 Maddie Mae Personal Advocate & Liaison (PAL) Family Medicine 12/28/21 documented as of this encounter
--- OUTSIDE RECORDS SUMMARY | 2023-04-26 00:04 | XMS_ITS | Encounter Summary ---
Author Name Unknown Organization [facility] Address [address] [place] [address]. [place] [address] Care Team Providers Care Datapower Developer Name Role Phone Edu Crawford DPM Unavailable [phone] Enrico Felton DO Unavailable [phone] Maddie Mae Unavailable Unavailable No Ref-Primary, Physician Primary Care Provider Enrico Felton DO Primary Care Provider [phone] Aydee Mgcill RN Unavailable [phone] Encounter Details Date Type Department Care Team (Late st Contact Info) Description 06/21/2022 Medical Correspondence [facility] Info Mgmt [facility] [address] [place] [phone] Outside, Provider Social History Tobacco Use Types Packs/Day Years [...] Never 02/20/2022 How often do you attend confucianist or advent serv ices? Patient declined 02/20/2022 Do you belong to any clubs o r organizations such as confucianist groups, unions, fraternal or athletic groups, or [...] Answer Date Recorded PHQ-2 Score 1 02/20/2022 [facility]at [facility] - Occupational Stress Questionnaire Answer Date [...] place to sleep or slept in a longterm (including now)? No 02/20/2022 Sex and Gender Information Value Date Recorded Sex Assigned at Not on file Gender Identity Not on file Sexual Orientation Not on file documented as of this encounter Plan of Treatment Not on file documented as of this encounter Goals Goal Patient Goal Type Associated Problems Recent Progress Patient-Stated? Author Financial Wellbeing General Yes Rosey Alexander, DAIRY CHEMIST documented as of this encounter Visit Diagnoses Not on filedocumented in this encounter Additional Health Concerns Infection Onset Date Last Indicated Resolved Time 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 per 09/01/16 aluminum siding installer note; left foot tissue 10/08/16 10/11/2018 02/27/2019 Assessment Noted Time PHQ-9 Depression Total Score: 5 02/21/20 22 2:07 PM PRECISION AGRONOMIST documented as of this encounter Care Teams Datapower Developer Relationship Specialty Start Date End Date No Ref-Primary, Physician PCP - General 02/20/22 06/29/22 [place] [address] [place] [address] PCP - General Family Medicine 06/30/22 Edu Crawford DPM [address] [place] [address] [address] [place] [address] Podiatry 10/18/16 [place] [address] [place] [address] Assigned PCP 08/29/20 Maddie Mae Personal Advocate & Liaison (PAL) Family Medicine 12/28/21 Aydee Mcgill RN RN Clinical Product Navigator Primary Care - CC 06/30/22 06/30/22 documented as of this encounter
--- OUTSIDE RECORDS SUMMARY | 2023-04-26 00:04 | XMS_ITS | Encounter Summary ---
Author Name Unknown Organization [facility] Address [address] [place] [address]. [place] [address] Care Team Providers Care Notary Public Name Role Phone MirandaJossie lazoy DPM Unavailable Enrico Felton DO Unavailable [phone] Maddie Mae Unavailable Unavailable No Ref-Primary, Physician Primary Care Provider Reason for Visit * Reason Onset Date Comments Home Care/Hospice 06/21/2022 Patient declin es physical therapy services Encounter Details Date Type Department Care Team (Late st Contact Info) Description 06/21/[address] [facility] [id number] [place] [phone] [place] [address] [place] [address] Home Care/Hospice (Patient declines physical therapy services) Social History Tobacco Use Types Packs/Day Years [...] Never 02/20/2022 How often do you attend mormon or rastafarian serv ices? Patient declined 02/20/2022 Do you belong to any clubs o r organizations such as mormon groups, unions, fraternal or athletic groups, or [...] Answer Date Recorded PHQ-2 Score 1 02/20/2022 [facility] of Occupat ional Health - Occupational [...] in a chcf (including now)? No 02/20/2022 Sex and Gender Information Value Date Recorded Sex Assigned at Not on file Gender Identity Not on file Sexual Orientation Not on file documented as of this encounter Miscellaneous Notes * Telephone Encounter - Maddie Mae - 06/22/2022 11:19 AM CDT Called and spoke with daughter. Made an appointment for next week. Maddie Mae [facility] * Telephone Encounter - Iavnna Turner RN - 06/22/2022 11:08 AM CDT Images from the original note were not included. Enrico Felton DO Lv Triage 33 minutes ago (10:33 AM) PT See my note from today. ??Please try to get patient a follow-up hospital appointment with me, or ifneeded any available provider for follow-up hospital management. * Telephone Encounter - Enrico Felton DO - 06/22/2022 10:30 AM CDT Most recent nursing message reviewed. I will try to have patient seen within the next week by me orother available provider in clinic. A virtual visit can be done if in person appointment is not available. One of my provider approval appointments may be used. * Telephone Encounter - Aydee Eaton RN - 06/21/2022 2:16 PM CDT Willy, PT with [facility] calls with update for Dr. Felton. He saw patient today for physical therapy start of care, but patient declined further visits. He tried to show her some things and she was not wanting to participate in this. He also states that patient is not using Nicoderm patchesand plans to continue smoking. He did update her daughter who lives next door about patient declining further visits and recommended patient have follow-up with provider. Please call with any furtherquestions. Aydee Eaton RN [facility] documented in this encounter Plan of Treatment Not on file documented as of this encounter Goals Goal Patient Goal Type Associated Problems Recent Progress Patient-Stated? Author Financial Wellbeing General Yes Rosey Alexander, CHIMNEY BUILDER documented as of this encounter Visit Diagnoses Not on filedocumented in this encounter Additional Health Concerns Infection Onset Date Last Indicated Resolved Time 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 per 09/01/16 fluid jet cutter operator note; left foot tissue 10/08/16 10/11/2018 02/27/2019 Assessment Noted Time PHQ-9 Depression Total Score: 5 02/21/20 22 2:07 PM ELECTRICAL WIRER documented as of this encounter Care Teams Notary Public Relationship Specialty Start Date End Date No Ref-Primary, Physician PCP - General 02/20/22 06/29/22 Edu Crawford DPM [address] [facility] [address] [place] [address] Podiatry 10/18/16 [place] [address] [place] [address] Assigned PCP 08/29/20 Maddie Mae Personal Advocate & Liaison (PAL) Family Medicine 12/28/21 documented as of this encounter
--- OUTSIDE RECORDS SUMMARY | 2023-04-26 00:04 | XMS_ITS | Encounter Summary ---
Author Name Unknown Organization [facility] Address [address] [place] [address]. [place] [address] Care Team Providers Care Certified Adaptive Physical Educator Name Role Phone Yvette Edu DPM Unavailable [phone] Enrico Felton DO Unavailable [phone] Maddie Mae Unavailable Unavailable No Ref-Primary, Physician Primary Care Provider Enrico Felton DO Primary Care Provider [phone] Aydee Mcgill RN Unavailable [phone] Reason for Visit * Reason Onset Date Comments Refill Request 06/23/2022 oxybutynin ER (D ITROPAN XL) 5 MG 24 hr tablet Encounter Details Date Type Department Care Team (Late st Contact Info) Description 06/23/2022 Telephone [facility] [id number] [place] [phone] [place] [id number] [place] [address] Refill Request (oxybutynin ER (DITROPAN XL) 5 MG 24 hr tablet ) Social History Tobacco Use Types Packs/Day [...] Never 02/20/2022 How often do you attend gnosticist or restorationism serv ices? Patient declined 02/20/2022 Do you belong to any clubs o r organizations such as gnosticist groups, unions, fraternal or athletic groups, or [...] Answer Date Recorded PHQ-2 Score 1 02/20/2022 [facility] of Occupat ional Health - Occupational Stress [...] place to sleep or slept in a jail (including now)? No 02/20/2022 Sex and Gender Information Value Date Recorded Sex Assigned at Not on file Gender Identity Not on file Sexual Orientation Not on file documented as of this encounter Miscellaneous Notes * Telephone Encounter - Katie Velasquez RN - 06/27/2022 8:52 AM CDT Call to Alyssa goes to same recorded line. Has not read Evrent message. We have now made 5 attempts to reach patient. No further outreach at this time Patient has scheduled appointment with PCP tomorrow. Katie Velasquez R.N. * Telephone Encounter - Katie Velasquez RN - 06/26/2022 5:32 PM CDT Call to listed number, it goes to a recorded line and appears to be a business or solicitation. Unsure if it a work number for Alyssa. Evrent message sent. Katie Velasquez R.N. * Telephone Encounter - Enrico Felton DO - 06/26/2022 4:33 PM CDT Most recent nurse triage note reviewed. Considering how patient has had a recent CVA, and that oxybutynin can cause dizziness, I think medication should not be used until follow-up visit is done withpatient to discuss treatment, and assess her blood pressure. She has an appointment to see me on 06/28/2022. Sincerely, Enrico Felton DO * Telephone Encounter - Tessa Radford RN - 06/26/2022 2:16 PM CDT LM again for call back Did you discontinue this? Tessa Radford RN * Telephone Encounter - Tessa Radford RN - 06/23/2022 2:08 PM CDT LM for pt to call - This was discontinued by PCP Tessa Radford RN * Telephone Encounter - Radha Wiggins - 06/23/2022 1:40 PM CDT Refill request for oxybutynin ER (DITROPAN XL) 5 MG 24 hr tablet. This medication has been discontinued. documented in this encounter Plan of Treatment Not on file documented as of this encounter Goals Goal Patient Goal Type Associated Problems Recent Progress Patient-Stated? 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 [address] [place] [address] Podiatry 10/18/16 [place] [address] [place] [address] Assigned PCP 08/29/20 Maddie Mae Personal Advocate & Liaison (PAL) Family Medicine 12/28/21 Aydee Mcgill RN ROQUE Clinical Product Navigator Primary Care - CC 06/30/22 06/30/22 documented as of this encounter
--- OUTSIDE RECORDS SUMMARY | 2023-04-26 00:04 | XMS_ITS | Encounter Summary ---
Author Name Unknown Organization [facility] Address [address] [place] [address] Care Team Providers Care Diorama Model Maker Name Role Phone Edu Crawford DPBharath Unavailable [phone] Enrico Felton DO Unavailable [phone] Maddie Mae Unavailable Unavailable Enrico Fleton DO Primary Care Provider [phone] Aydee Mcgill RN Unavailable [phone] Encounter Details Date Type Department Care Team (Late st Contact Info) Description 06/30/2022 [facility] Medical Advice [facility] Care Coordination [address] [place] [phone] Aydee Mcgill, RN Social History Tobacco Use Types Packs/Day Years [...] Never 02/20/2022 How often do you attend taoist or temple serv ices? Patient declined 02/20/2022 Do you belong to any clubs o r organizations such as taoist groups, unions, fraternal or athletic groups, or [...] Date Recorded PHQ-2 Score 1 02/20/2022 [facility] - Occupational Stress Questionnaire Answer [...] in a usp (including now)? No 02/20/2022 Sex and Gender Information Value Date Recorded Sex Assigned at Not on file Gender Identity Not on file Sexual Orientation Not on file documented as of this encounter Plan of Treatment Not on file documented as of this encounter Goals Goal Patient Goal Type Associated Problems Recent Progress Patient-Stated? Author Financial Wellbeing General Yes Rosey Alexander, ROTARY PUMP OPERATOR documented as of this encounter Visit Diagnoses Not on filedocumented in this encounter Additional Health Concerns Infection Onset Date Last Indicated Resolved Time 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 per 09/01/16 pet care worker note; left foot tissue 10/08/16 10/11/2018 02/27/2019 Assessment Noted Time PHQ-9 Depression Total Score: 5 02/21/20 22 2:07 PM HEALTH SERVICES ADMINISTRATOR documented as of this encounter Care Teams Diorama Model Maker Relationship Specialty Start [place] [address] [place] [address] PCP - General Family Medicine 06/30/22 [place] [address] [facility] [address] [place] [address] Podiatry 10/18/16 [place] [address] [place] [address] Assigned PCP 08/29/20 Maddie Mae Personal Advocate & Liaison (PAL) Family Medicine 12/28/21 Aydee Mcgill RN RN Clinical Product Navigator Primary Care - CC 06/30/22 06/30/22 documented as of this encounter
--- OUTSIDE RECORDS SUMMARY | 2023-04-26 00:04 | XMS_ITS | Encounter Summary ---
Author Name Unknown Organization [facility] Address [address] [place] [address]. [place] [address] Care Team Providers Care Production Generalist Name Role Phone Edu Crawford DPM Unavailable [phone] Enrico Felton DO Unavailable [phone] Maddie Mae Unavailable Unavailable Enrico Felton DO Primary Care Provider [phone] Encounter Details Date Type Department Care Team (Late st Contact Info) Description 07/17/2022 Medical Correspondence [facility] Info Mgmt [facility] [address] [place] [address] Outside, Provider Social History Tobacco Use [...] Never 02/20/2022 How often do you attend episcopal or sikhism serv ices? Patient declined 02/20/2022 Do you belong to any clubs o r organizations such as episcopal groups, unions, fraternal or athletic groups, or [...] Answer Date Recorded PHQ-2 Score 1 02/20/2022 [facility] of Occupat ional Health - Occupational Stress [...] place to sleep or slept in a fdc (including now)? No 02/20/2022 Sex and Gender Information Value Date Recorded Sex Assigned at Not on file Gender Identity Not on file Sexual Orientation Not on file documented as of this encounter Plan of Treatment Not on file documented as of this encounter Goals Goal Patient Goal Type Associated Problems Recent Progress Patient-Stated? Author Financial Wellbeing General Yes Rosey Aelxander, AUTOMOTIVE METALSMITH documented as of this encounter Visit Diagnoses Not on filedocumented in this encounter Additional Health Concerns Infection Onset Date Last Indicated Resolved Time 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 per 09/01/16 park landscape architect note; left foot tissue 10/08/16 10/11/2018 02/27/2019 Assessment Noted Time PHQ-9 Depression Total Score: 5 02/21/20 22 2:07 PM SEMICONDUCTOR DEVELOPMENT TECHNICIAN documented as of this encounter Care Teams Production Generalist Relationship Specialty Start [place] [address] [place] [address] PCP - General Family Medicine 06/30/22 [place] [address] [facility] [address] [place] [address] Podiatry 10/18/16 [place] [address] [place] [address] Assigned PCP 08/29/20 Maddie Mae Personal Advocate & Liaison (PAL) Family Medicine 12/28/21 documented as of this encounter
--- OUTSIDE RECORDS SUMMARY | 2023-04-26 00:04 | XMS_ITS | Encounter Summary ---
Author Name Unknown Organization [facility] Address [address] [place] [address] Care Team Providers Care Personal Lines Sales Executive Name Role Phone Edu Crawford DPM Unavailable [phone] Enrico Felton DO Unavailable [phone] Maddie Mae Unavailable Unavailable No Ref-Primary, Physician Primary Care Provider Reason for Visit * Reason Onset Date Comments Panel Management 06/06/2022 Encounter Details Date Type Department Care Team (Late st Contact Info) Description 06/06/2022 Telephone [facility] [address] [place] [phone] [place] [address] [place] [address] Panel Management Social History Tobacco Use Types Packs/Day Years [...] Never 02/20/2022 How often do you attend pentecostalism or gnosticism serv ices? Patient declined 02/20/2022 Do you belong to any clubs o r organizations such as pentecostalism groups, unions, fraternal or athletic groups, or [...] Answer Date Recorded PHQ-2 Score 1 02/20/2022 [facility] of Occupat ional [facility] - Occupational Stress Questionnaire Answer Date Recorded [...] to sleep or slept in a senior care (including now)? No 02/20/2022 Sex and Gender Information Value Date Recorded Sex Assigned at Not on file Gender Identity Not on file Sexual Orientation Not on file documented as of this encounter Miscellaneous Notes * Telephone Encounter - Mehreen Díaz CMA - 06/06/2022 2:30 PM CDT Patient Quality Outreach Patient is due for the following: Colon Cancer Screening Next Steps: Colonoscopy Type of outreach: Sent letter. Questions for provider review: Mehreen Díaz CMA documented in this encounter Plan of Treatment Not on file documented as of this encounter Goals Goal Patient Goal Type Associated Problems Recent Progress Patient-Stated? Author Financial Wellbeing General Yes Rosey Alexander, MACHINIST OUTSIDE documented as of this encounter Visit Diagnoses Not on filedocumented in this encounter Additional Health Concerns Infection Onset Date Last Indicated Resolved Time 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 per 09/01/16 mobile engineer note; left foot tissue 10/08/16 10/11/2018 02/27/2019 Assessment Noted Time PHQ-9 Depression Total Score: 5 02/21/20 22 2:07 PM PACKING MACHINE CAN FEEDER documented as of this encounter Care Teams Personal Lines Sales Executive Relationship Specialty Start Date End Date No Ref-Primary, Physician PCP - General 02/20/22 06/29/22 [place] [address] [facility] [address] [place] [address] Podiatry 10/18/16 [place] [address] [place] [address] Assigned PCP 08/29/20 Maddie Mae Personal Advocate & Liaison (PAL) Family Medicine 12/28/21 documented as of this encounter
--- OUTSIDE RECORDS SUMMARY | 2023-04-26 00:04 | XMS_ITS | Encounter Summary ---
Author Name Unknown Organization [facility] Address [address] [place] [address] Care Team Providers Care Survey Research Manager Name Role Phone Edu Crawford DPM Unavailable [phone] Enrico Felton DO Unavailable [phone] Maddie Mae Unavailable Unavailable No Ref-Primary, Physician Primary Care Provider Enrico Felton DO Primary Care Provider [phone] Aydee Mcgill RN Unavailable [phone] Encounter Details Date Type Department Care Team (Late st Contact Info) Description 06/26/2022 [facility] Medical Advice [facility] [id number] [place] [phone] Katie Velasquez RN Social History Tobacco Use Types Packs/Day [...] How often do you attend holiness or adventism serv ices? Patient declined 02/20/2022 Do you [...] Answer Date Recorded PHQ-2 Score 1 02/20/2022 [facility] of Occupat ional [facility] - Occupational Stress Questionnaire Answer Date [...] Author Financial Wellbeing General Yes Rosey Alexander, WELFARE OFFICER documented as of this encounter Visit Diagnoses Not on filedocumented in this encounter Additional Health Concerns Infection Onset Date Last Indicated Resolved Time 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 per 09/01/16 nut cracker note; left foot tissue 10/08/16 10/11/2018 02/27/2019 Assessment Noted Time PHQ-9 Depression Total Score: 5 02/21/20 22 2:07 PM SHOWER ROOM ATTENDANT documented as of this encounter Care Teams Survey Research Manager Relationship Specialty Start Date End Date No Ref-Primary, Physician PCP - General 02/20/22 06/29/22 [place] [address] [place] [address] PCP - General Family Medicine 06/30/22 Edu Crawford DPM [address] [place] [address] [address] [place] [address] Podiatry 10/18/16 [place] [address] [place] [address] Assigned PCP 08/29/20 Maddie Mae Personal Advocate & Liaison (PAL) Family Medicine 12/28/21 Aydee Mcgill RN ROQUE Clinical Product Navigator Primary Care - CC 06/30/22 06/30/22 documented as of this encounter
--- OUTSIDE RECORDS SUMMARY | 2023-04-26 00:05 | XMS_ITS | Encounter Summary ---
Author Name Unknown Organization [place] Address [address] [place] [address] Care Team Providers Care Lead Setter Name Role Phone Edu Crawford DPM Unavailable [phone] Enrico Felton DO Unavailable [phone] Maddie Mae Unavailable Unavailable No Ref-Primary, Physician Primary Care Provider Enrico Felton DO Primary Care Provider [phone] Aydee Mcgill RN Unavailable [phone] Encounter Details Date Type Department Care Team (Late st Contact Info) Description 03/23/2022 MyC Medical Advice [facility] [id number] [place] [id number] [place] Pickering, MID WIFE Social History Tobacco Use Types Packs/Day Years [...] Never 02/20/2022 How often do you attend anabaptism or mu-ism serv ices? Patient declined 02/20/2022 Do you belong to any clubs o r organizations such as anabaptism groups, unions, fraternal or athletic groups, or [...] Answer Date Recorded PHQ-2 Score 1 02/20/2022 [facility] - Occupational Stress Questionnaire Answer Date [...] Author Financial Wellbeing General Yes Rosey Alexander, SILK SCREEN PRINTER documented as of this encounter Visit Diagnoses Not on filedocumented in this encounter Additional Health Concerns Infection Onset Date Last Indicated Resolved Time 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 per 09/01/16 health/safety job titles note; left foot tissue 10/08/16 10/11/2018 02/27/2019 Assessment Noted Time PHQ-9 Depression Total Score: 5 02/21/20 22 2:07 PM SENIOR COST ANALYST documented as of this encounter Care Teams Lead Setter Relationship Specialty Start Date End Date No Ref-Primary, Physician PCP - General 02/20/22 06/29/22 [place] [address] [place] [address] PCP - General Family Medicine 06/30/22 Edu Crawford DPM [address] [place] [address] Podiatry 10/18/16 [place] [address] [place] [address] Assigned PCP 08/29/20 Maddie Mae Personal Advocate & Liaison (PAL) Family Medicine 12/28/21 Aydee Mcgill RN RN Clinical Product Navigator Primary Care - CC 06/30/22 06/30/22 documented as of this encounter
--- OUTSIDE RECORDS SUMMARY | 2023-04-26 00:05 | XMS_ITS | Encounter Summary ---
Author Name Unknown Organization [place] Address [address] [place] [address] Care Team Providers Care Electric Solderer Name Role Phone Stefan Crawfordemy DPM Unavailable [phone] Enrico Felton DO Primary Care Provider [phone] Enrico Felton DO Unavailable [phone] Magdalena Brice Unavailable Unavailable Maddie Mae Unavailable Unavailable No Ref-Primary, Physician Primary Care Provider Enrico Felton DO Primary Care Provider [phone] Aydee Mcgill RN Unavailable [phone] Encounter Details Date Type Department Care Team (Late st Contact Info) Description 10/20/2021 MyC Medical Advice [address] [place] [address] [place] Pickering, [facility] Social History Tobacco Use Types Packs/Day Years Used Date Smoking Tobacco: Every Day Cigarettes 1 Smokeless Tobacco: Never Alcohol Use Standard Drinks/Week Comments No 0 (1 standard drink = 0.6 oz pur e alcohol) PHQ-2 Answer Date Recorded PHQ-2 Score 0 08/23/2020 Sex and Gender Information Value Date Recorded Sex Assigned at Not on file Gender Identity Not on file Sexual Orientation Not on file documented as of this encounter Plan of Treatment Not on file documented as of this encounter Goals Goal Patient Goal Type Associated Problems Recent Progress Patient-Stated? Author Financial Wellbeing General Yes Rosey Alexander, COCONUT BOILER documented as of this encounter Visit Diagnoses Not on filedocumented in this encounter Additional Health Concerns Infection Onset Date Last Indicated Resolved Time 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 per 09/01/16 grounds crew supervisor note; left foot tissue 10/08/16 10/11/2018 02/27/2019 Assessment Noted Time PHQ-9 Depression Total Score: 3 08/24/19 21 12:19 PM CDT documented as of this encounter Care Teams Electric Solderer Relationship Specialty [place] [address] [place] [address] PCP - General Family Medicine 08/24/20 01/23/22 No Ref-Primary, Physician PCP - General 02/20/22 06/29/22 [place] [address] [place] [address] PCP - General Family Medicine 06/30/22 [place] [address] [facility] [address] [place] [address] Podiatry 10/18/16 [place] [address] [place] [address] Assigned PCP 08/29/20 Magdalena Brice Personal Advocate & Liaison (PAL) 11/14/21 12/27/21 Maddie Mae Personal Advocate & Liaison (PAL) Family Medicine 12/28/21 Aydee Mcgill, RN RN Clinical Product Navigator Primary Care - CC 06/30/22 06/30/22 documented as of this encounter
--- OUTSIDE RECORDS SUMMARY | 2023-04-26 00:05 | XMS_ITS | Encounter Summary ---
Author Name Unknown Organization [place] Address [address] [place] [address] Care Team Providers Care Electric Scoop Operator Name Role Phone Shermanmanuelclifton Edu DPM Unavailable [phone] Enrico Felton DO Primary Care Provider [phone] Enrico Felton DO Unavailable [phone] Maddie Mae Unavailable Unavailable No Ref-Primary, Physician Primary Care Provider Enrico Felton DO Primary Care Provider [phone] Adyee Mcgill RN Unavailable [phone] Encounter Details Date Type Department Care Team (Late st Contact Info) Description 01/20/2022 MyC Medical Advice [address] [phone] America Green Social History Tobacco [...] 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 per 09/01/16 surgical attendant note; left foot tissue 10/08/16 10/11/2018 02/27/2019 Assessment Noted Time PHQ-9 Depression Total Score: 3 08/24/19 21 12:19 PM CDT documented as of this encounter Care Teams Electric Scoop Operator Relationship Specialty [place] [address] [place] [address] PCP - General Family Medicine 08/24/20 01/23/22 No Ref-Primary, Physician PCP - General 02/20/22 06/29/22 [place] [address] [place] [address] PCP - General Family Medicine 06/30/22 [place] [address] [facility] [address] [place] [address] Podiatry 10/18/16 [place] [address] [place] [address] Assigned PCP 08/29/20 Maddie Mae Personal Advocate & Liaison (PAL) Family Medicine 12/28/21 Aydee Mcgill RN RN Clinical Product Navigator Primary Care - CC 06/30/22 06/30/22 documented as of this encounter
--- OUTSIDE RECORDS SUMMARY | 2023-04-26 00:05 | XMS_ITS | Encounter Summary ---
Author Name Unknown Organization [place] Address [address] [place] [address] Care Team Providers Care Blasting Contract Miner Name Role Phone Stefan Crawfordemy DPM Unavailable [phone] Enrico Felton DO Primary Care Provider [phone] Enrico Felton DO Unavailable [phone] Magdalena Brice Unavailable Unavailable Maddie Mae Unavailable Unavailable No Ref-Primary, Physician Primary Care Provider Enrico Felton DO Primary Care Provider [phone] Aydee Mcgill RN Unavailable [phone] Encounter Details Date Type Department Care Team (Late st Contact Info) Description 10/20/2021 MyC Medical Advice [address] [address] Mel[place] Pickering, EMT B Social History Tobacco Use Types Packs/Day Years [...] Author Financial Wellbeing General Yes Rosey Alexander, PHARMACEUTICAL SALES REPRESENTATIVE documented as of this encounter Visit Diagnoses Not on filedocumented in this encounter Additional Health Concerns Infection Onset Date Last Indicated Resolved Time 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 per 09/01/16 bedspread inspector note; left foot tissue 10/08/16 10/11/2018 02/27/2019 Assessment Noted Time PHQ-9 Depression Total Score: 3 08/24/19 21 12:19 PM CDT documented as of this encounter Care Teams Blasting Contract Miner Relationship Specialty [place] [address] [place] [address] PCP - General Family Medicine 08/24/20 01/23/22 No Ref-Primary, Physician PCP - General 02/20/22 06/29/22 [place] [address] [place] [address] PCP - General Family Medicine 06/30/22 [place] [address] [facility] [address] [place] [address] Podiatry 10/18/16 [place] [address] [place] [address] Assigned PCP 08/29/20 Magdalena Brice Personal Advocate & Liaison (PAL) 11/14/21 12/27/21 Maddie Mae Personal Advocate & Liaison (PAL) Family Medicine 12/28/21 Aydee Mcgill, RN RN Clinical Product Navigator Primary Care - CC 06/30/22 06/30/22 documented as of this encounter
--- OUTSIDE RECORDS SUMMARY | 2023-04-26 00:05 | XMS_ITS | Encounter Summary ---
Author Name Unknown Organization [place] Address [address] [place] [address]. [place] [address] Care Team Providers Care Hardening Machine Operator Name Role Phone MirandaStefan lazoemy DPM Unavailable [phone] Enrico Felton DO Unavailable [phone] Maddie Mae Unavailable Unavailable No Ref-Primary, Physician Primary Care Provider Enrico Felton DO Primary Care Provider [phone] Aydee Mcgill RN Unavailable [phone] Reason for Visit * Reason Onset Date Comments Refill Request 02/08/2022 lisinopril (ZEST RIL) 20 MG tablet Encounter Details Date Type Department Care Team (Late st Contact Info) Description 02/08/[address] [address] [place] [id number] [place] [address] [id number] Refill Request (lisinopril (ZESTRIL) 20 MG tablet) Social History Tobacco Use Types Packs/Day Years [...] Telephone Encounter - Enrico Felton DO - 02/10/2022 10:22 AM CST Patient noted to have appointment with me next month where I can do medication management. Considering this, I will refill lisinopril for 30 days. OMS CONSULTANT * Telephone Encounter - Ivanna Turner RN - 02/10/2022 9:18 AM CST Routing refill request to provider for review/approval because: Labs out of range: BP Readings from Last 3 Encounters: 10/25/21 (!) 154/86 09/27/21 (!) 162/108 09/17/21 128/73 A break in medication Patient needs to be seen because it has been more than 1 year since last office visit. - Has visit scheduled 02/20/22. Ivanna Glover RN OMS CONSULTANT documented in this encounter Plan of Treatment Not on file documented as of this encounter Goals Goal Patient Goal Type Associated Problems Recent Progress Patient-Stated? 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 per 09/01/16 feed miller note; left foot tissue 10/08/16 10/11/2018 02/27/2019 Assessment Noted Time PHQ-9 Depression Total Score: 3 08/24/19 21 12:19 PM CDT documented as of this encounter Care Teams Hardening Machine Operator Relationship Specialty Start Date End Date No Ref-Primary, Physician PCP - General 02/20/22 06/29/22 [place] [address] [place] [address] PCP - General Family Medicine 06/30/22 [place] [address] [facility] [address] [place] [address] Podiatry 10/18/16 [place] [address] [place] [address] Assigned PCP 08/29/20 Maddie Mae Personal Advocate & Liaison (PAL) Family Medicine 12/28/21 Aydee Mcgill RN RN Clinical Product Navigator Primary Care - CC 06/30/22 06/30/22 documented as of this encounter
--- OUTSIDE RECORDS SUMMARY | 2023-04-26 00:05 | XMS_ITS | Encounter Summary ---
Author Name Unknown Organization [place] Address [address] [place] [address]. [place] [address] Care Team Providers Care Target Developer Name Role Phone Edu Crawford DPM Unavailable [phone] Enrico Felton DO Unavailable [phone] Maddie Mae Unavailable Unavailable No Ref-Primary, Physician Primary Care Provider Enrico Felton DO Primary Care Provider [phone] Aydee Mcigll RN Unavailable Reason for Visit * Reason Onset Date Comments Refill Request 06/01/2022 omeprazole (PRIL OSEC) [address] capsule Encounter Details Date Type Department Care Team (Late st Contact Info) Description 06/01/2022 Telephone [facility] [id number] [place] [id number] [place] [address] [place] [address] Refill Request (omeprazole (PRILOSEC) 40 MG [...] Never 02/20/2022 How often do you attend religious or buddhist serv ices? Patient declined 02/20/2022 Do you belong to any clubs o r organizations such as religious groups, unions, fraternal or athletic groups, or [...] Answer Date Recorded PHQ-2 Score 1 02/20/2022 [facility] Occupat ional Health - Occupational Stress [...] encounter Miscellaneous Notes * Telephone Encounter - America Green - 06/01/2022 1:55 PM CDT Qype message sent to patient to schedule [facility]/ Tailings Worker * Telephone Encounter - Ángela Hernández RN - 06/01/2022 1:44 PM CDT Has never been prescribed through [facility], pt should have appt to discuss, [facility] okay. Also note that no PCP on file, please assist with scheduling and see if she wants PT to be PCP. Ángela Francis RN * Telephone Encounter - Earline Zapata - 06/01/2022 1:34 PM CDT Pharmacy requesting refill of omeprazole (PRILOSEC) [address] capsule. Discontinued documented in this encounter Plan of Treatment Not on file documented as of this encounter Goals Goal Patient Goal Type Associated Problems Recent Progress Patient-Stated? Author Financial Wellbeing General Yes Rosey Alexander, HATCHERY HELPER documented as of this encounter Visit Diagnoses Not on filedocumented in this encounter Additional Health Concerns Infection Onset Date Last Indicated Resolved Time 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 per 09/01/16 manufacturing test engineer note; left foot tissue 10/08/16 10/11/2018 02/27/2019 Assessment Noted Time PHQ-9 Depression Total Score: 5 02/21/20 22 2:07 PM SWITCH COUPLER documented as of this encounter Care Teams Target Developer Relationship Specialty Start Date End Date No Ref-Primary, Physician PCP - General 02/20/22 06/29/22 [place] [address] [place] [address] PCP - General Family Medicine 06/30/22 [place] [address] [facility] [address] [place] [address] Podiatry 10/18/16 [place] [address] [place] [address] Assigned PCP 08/29/20 Maddie Mae Personal Advocate & Liaison (PAL) Family Medicine 12/28/21 Aydee Mcgill RN ROQUE Clinical Product Navigator Primary Care - CC 06/30/22 06/30/22 documented as of this encounter
--- OUTSIDE RECORDS SUMMARY | 2023-04-26 00:05 | XMS_ITS | Encounter Summary ---
Author Name Unknown Organization [facility] Address [address] [place] [address] Care Team Providers Care Programming Engineer Name Role Phone Edu Crawford DPM Unavailable [phone] Enrico Felton DO Unavailable [phone] Maddie Mae Unavailable Unavailable No Ref-Primary, Physician Primary Care Provider Enrico Felton DO Primary Care Provider [phone] Aydee Mcgill RN Unavailable [phone] Encounter Details Date Type Department Care Team (Late st Contact Info) Description 06/01/2022 [facility] Medical Advice [facility] [address] [place] [phone] America Green Social History Tobacco Use [...] Never 02/20/2022 How often do you attend caodaism or protestant serv ices? Patient declined 02/20/2022 Do you belong to any clubs o r organizations such as caodaism groups, unions, fraternal or athletic groups, or [...] Answer Date Recorded PHQ-2 Score 1 02/20/2022 [facility]at [facility] - Occupational [...] Author Financial Wellbeing General Yes Rosey Alexander, UNIVERSITY DEMONSTRATOR documented as of this encounter Visit Diagnoses Not on filedocumented in this encounter Additional Health Concerns Infection Onset Date Last Indicated Resolved Time 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 per 09/01/16 cloth grader supervisor note; left foot tissue 10/08/16 10/11/2018 02/27/2019 Assessment Noted Time PHQ-9 Depression Total Score: 5 02/21/20 22 2:07 PM BOX TENDER documented as of this encounter Care Teams Programming Engineer Relationship Specialty Start Date End Date No Ref-Primary, Physician PCP - General 02/20/22 06/29/22 [place] [address] [place] [address] PCP - General Family Medicine 06/30/22 Edu Crawford DPM [address] [place] [address] Podiatry 10/18/16 [place] [address] [place] [address] Assigned PCP 08/29/20 Maddie Mae Personal Advocate & Liaison (PAL) Family Medicine 12/28/21 Aydee Mcgill RN RN Clinical Product Navigator Primary Care - CC 06/30/22 06/30/22 documented as of this encounter
--- OUTSIDE RECORDS SUMMARY | 2023-04-26 00:06 | XMS_ITS | Encounter Summary ---
Author Name Unknown Organization [place] Address [address] [place] [address] Care Team Providers Care Public Health Dietitian Name Role Phone Edu Crawford DPM Unavailable [phone] Enrico Felton DO Primary Care Provider [phone] Enrico Felton DO Unavailable [phone] Rebecca Palumbo MD Unavailable [phone] Magdalena Brice Unavailable Unavailable Maddie Mae Unavailable Unavailable No Ref-Primary, Physician Primary Care Provider Enrico Felton DO Primary Care Provider [phone] Aydee Mcgill RN Unavailable [phone] Encounter Details Date Type Department Care Team (Late st Contact Info) Description 07/14/2021 MyC Medical Advice [facility] [address] [place] [address] [place] Pickering, BOX TURNER Social History Tobacco Use Types Packs/Day Years [...] Author Financial Wellbeing General Yes Rosey Alexander, CHASSIS WIRER documented as of this encounter Visit Diagnoses Not on filedocumented in this encounter Additional Health Concerns Infection Onset Date Last Indicated Resolved Time 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 per 09/01/16 pipe cutter note; left foot tissue 10/08/16 10/11/2018 02/27/2019 Assessment Noted Time PHQ-9 Depression Total Score: 3 08/24/19 21 12:19 PM CDT documented as of this encounter Care Teams Public Health Dietitian Relationship Specialty [place] [address] [place] [address] PCP - General Family Medicine 08/24/20 01/23/22 No Ref-Primary, Physician PCP - General 02/20/22 06/29/22 [place] [address] [place] [address] PCP - General Family Medicine 06/30/22 Edu Crawford DPM [address] [place] [address] [address] [place] [address] Podiatry 10/18/16 [place] [address] [place] [address] Assigned PCP 08/29/20 Rebecca Palumbo MD [address] [place] [address] [address] [place], [place] [address] Assigned Neuroscience Provider 10/01/20 10/14/21 Magdalena Brice Personal Advocate & Liaison (PAL) 11/14/21 12/27/21 Maddie Mae Personal Advocate & Liaison (PAL) Family Medicine 12/28/21 Aydee Mcgill RN RN Clinical Product Navigator Primary Care - CC 06/30/22 06/30/22 documented as of this encounter
--- OUTSIDE RECORDS SUMMARY | 2023-04-26 00:06 | XMS_ITS | Encounter Summary ---
Author Name Unknown Organization [place] Address [address] [place] [address] Care Team Providers Care Construction Operations Manager Name Role Phone Edu Crawford DPM Unavailable [phone] Enrico Felton DO Primary Care Provider [phone] Enrico Felton DO Unavailable [phone] Rebecca Palumbo MD Unavailable [phone] Magdalena Brice Unavailable Unavailable Maddie Mae Unavailable Unavailable No Ref-Primary, Physician Primary Care Provider Enrico Felton DO Primary Care Provider [phone] Aydee Mcgill RN Unavailable [phone] Encounter Details Date Type Department Care Team (Late st Contact Info) Description 09/06/2021 MyC Medical Advice [facility] [address] [place] [phone] Lulu Samano MA Social History Tobacco [...] Author Financial Wellbeing General Yes Rosey Alexander, HIGH MAN documented as of this encounter Visit Diagnoses Not on filedocumented in this encounter Additional Health Concerns Infection Onset Date Last Indicated Resolved Time 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 per 09/01/16 railcar carpenter note; left foot tissue 10/08/16 10/11/2018 02/27/2019 Assessment Noted Time PHQ-9 Depression Total Score: 3 08/24/19 21 12:19 PM CDT documented as of this encounter Care Teams Construction Operations Manager Relationship Specialty [place] [address] [place] [address] PCP - General Family Medicine 08/24/20 01/23/22 No Ref-Primary, Physician PCP - General 02/20/22 06/29/22 [place] [address] [place] [address] PCP - General Family Medicine 06/30/22 Edu Crawford DPM [address] [place] [address] [address] [place] [address] Podiatry 10/18/16 [place] [address] [place] [address] Assigned PCP 08/29/20 Rebecca Palumbo MD [address] [place] [address] [address] [place], [place] [address]885 Assigned Neuroscience Provider 10/01/20 10/14/21 Magdalena Brice Personal Advocate & Liaison (PAL) 11/14/21 12/27/21 Maddie Mae Personal Advocate & Liaison (PAL) Family Medicine 12/28/21 Aydee Mcgill RN RN Clinical Product Navigator Primary Care - CC 06/30/22 06/30/22 documented as of this encounter
--- OUTSIDE RECORDS SUMMARY | 2023-04-26 00:06 | XMS_ITS | Encounter Summary ---
Author Name Unknown Organization [place] Address [address] [place] [address] Care Team Providers Care Numerical Control Lathe Operator Name Role Phone Edu Crawford DPM Unavailable [phone] Enrico Felton DO Primary Care Provider [phone] Enrico Felton DO Unavailable [phone] Rebecca Palumbo MD Unavailable [phone] Magdalena Brice Unavailable Unavailable Maddie Mae Unavailable Unavailable No Ref-Primary, Physician Primary Care Provider Enrico Felton DO Primary Care Provider [phone] Aydee Mcgill RN Unavailable [phone] Encounter Details Date Type Department Care Team (Late st Contact Info) Description 07/08/2021 MyC Medical Advice [facility] [address] [place] [phone] Cy Leonardo Social History Tobacco Use Types Packs/Day Years [...] Author Financial Wellbeing General Yes Rosey Alexander, BUSINESS ADMINISTRATION PROGRAM CHAIR documented as of this encounter Visit Diagnoses Not on filedocumented in this encounter Additional Health Concerns Infection Onset Date Last Indicated Resolved Time 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 per 09/01/16 civil designer note; left foot tissue 10/08/16 10/11/2018 02/27/2019 Assessment Noted Time PHQ-9 Depression Total Score: 3 08/24/19 21 12:19 PM CDT documented as of this encounter Care Teams Numerical Control Lathe Operator Relationship Specialty [place] [address] [place] [address] PCP - General Family Medicine 08/24/20 01/23/22 No Ref-Primary, Physician PCP - General 02/20/22 06/29/22 [place] [address] [place] [address] PCP - General Family Medicine 06/30/22 Edu Crawford DPM [address] [place] [address] 300 [place] [address] Podiatry 10/18/16 [place] [address] [place] [address] Assigned PCP 08/29/20 Rebecca Palumbo MD [address] [facility] [address] [place], [place] [address] Assigned Neuroscience Provider 10/01/20 10/14/21 Magdalena Brice Personal Advocate & Liaison (PAL) 11/14/21 12/27/21 Maddie Mae Personal Advocate & Liaison (PAL) Family Medicine 12/28/21 Aydee Mcgill RN RN Clinical Product Navigator Primary Care - CC 06/30/22 06/30/22 documented as of this encounter
--- OUTSIDE RECORDS SUMMARY | 2023-04-26 00:06 | XMS_ITS | Encounter Summary ---
Author Name Unknown Organization [facility] Address [address] [place] [address] Care Team Providers Care Research Dietitian Name Role Phone Edu Crawford DPM Unavailable [phone] Enrico Felton DO Primary Care Provider [phone] Enrico Felton DO Unavailable [phone] Rebecca Palumbo MD Unavailable [phone] Magdalena Brice Unavailable Unavailable Maddie Mae Unavailable Unavailable No Ref-Primary, Physician Primary Care Provider Enrico Felton DO Primary Care Provider [phone] Aydee Mcgill RN Unavailable [phone] Encounter Details Date Type Department Care Team (Late st Contact Info) Description 08/23/2021 MyC Medical Advice [facility] [address] [place] [phone] Melida Pickering, BOTTLED BEVERAGE INSPECTOR Social History Tobacco Use Types Packs/Day Years [...] Author Financial Wellbeing General Yes Rosey Alexander, POWER CHISEL OPERATOR documented as of this encounter Visit Diagnoses Not on filedocumented in this encounter Additional Health Concerns Infection Onset Date Last Indicated Resolved Time 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 per 09/01/16 board mill supervisor note; left foot tissue 10/08/16 10/11/2018 02/27/2019 Assessment Noted Time PHQ-9 Depression Total Score: 3 08/24/19 21 12:19 PM CDT documented as of this encounter Care Teams Research Dietitian Relationship Specialty [place] [address] [place] [address] PCP - General Family Medicine 08/24/20 01/23/22 No Ref-Primary, Physician PCP - General 02/20/22 06/29/22 [place] [address] [place] [address] PCP - General Family Medicine 06/30/22 Edu Crawford DPM [id number] [place] [address] [address] [place] [address] Podiatry 10/18/16 [place] [address] [place] [address] Assigned PCP 08/29/20 Rebecca Palumbo MD [address] [place] [address] 297 [place], [place] [address] Assigned Neuroscience Provider 10/01/20 10/14/21 Magdalena Brice Personal Advocate & Liaison (PAL) 11/14/21 12/27/21 Maddie Mae Personal Advocate & Liaison (PAL) Family Medicine 12/28/21 Aydee Mcgill RN RN Clinical Product Navigator Primary Care - CC 06/30/22 06/30/22 documented as of this encounter
--- OUTSIDE RECORDS SUMMARY | 2023-04-26 00:06 | XMS_ITS | Encounter Summary ---
Author Name Unknown Organization [place] Address [address] [place] [address] Care Team Providers Care Extractions Technician Name Role Phone Mirandaclifton Edu DPBharath Unavailable [phone] Enrico Felton DO Primary Care Provider [phone] Enrico Felton DO Unavailable [phone] Rebecca Palumbo MD Unavailable [phone] Anders Ramachandran Unavailable Unavailable Magdalena Brice Unavailable Unavailable Maddie Mae Unavailable Unavailable No Ref-Primary, Physician Primary Care Provider Enrico Felton DO Primary Care Provider [phone] Aydee Mcgill RN Unavailable [phone] Encounter Details Date Type Department Care Team (Late st Contact Info) Description 06/01/[address] [facility] [address] [place] [address] Lulu Samano MA Social History Tobacco [...] Author Financial Wellbeing General Yes Rosey Alexander, RIP MACHINE OPERATOR documented as of this encounter Visit Diagnoses Not on filedocumented in this encounter Additional Health Concerns Infection Onset Date Last Indicated Resolved Time 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 per 09/01/16 injection operator note; left foot tissue 10/08/16 10/11/2018 02/27/2019 Assessment Noted Time PHQ-9 Depression Total Score: 3 08/24/19 21 12:19 PM CDT documented as of this encounter Care Teams Extractions Technician Relationship Specialty [place] [address] [place] [address] PCP - General Family Medicine 08/24/20 01/23/22 No Ref-Primary, Physician PCP - General 02/20/22 06/29/22 [place] [address] [place] [address] PCP - General Family Medicine 06/30/22 [place] [address] [facility] 300 [place] [address] Podiatry 10/18/16 [place] [address] [place] [address] Assigned PCP 08/29/20 Rebecca Palumbo MD [address] [place] [address] 297 [place] [address] Assigned Neuroscience Provider 10/01/20 10/14/21 Anders Ramachandran Personal Advocate & Liaison (PAL) 10/14/20 07/07/21 Magdalena Brice Personal Advocate & Liaison (PAL) 11/14/21 12/27/21 Maddie Mae Personal Advocate & Liaison (PAL) Family Medicine 12/28/21 Aydee Mcgill RN RN Clinical Product Navigator Primary Care - CC 06/30/22 06/30/22 documented as of this encounter
--- OUTSIDE RECORDS SUMMARY | 2023-04-26 00:06 | XMS_ITS | Encounter Summary ---
Author Name Unknown Organization [facility] Address [address] [place] [address]. [place] [address] Care Team Providers Care Garden Implement Mechanic Name Role Phone Stefan Crawfordemy DPBharath Unavailable [phone] Enrico Felton DO Primary Care Provider [phone] Enrico Felton DO Unavailable [phone] Rebecca Palumbo MD Unavailable [phone] Anders Ramachandran Unavailable Unavailable Magdalena Brice Unavailable Unavailable Maddie Mae Unavailable Unavailable No Ref-Primary, Physician Primary Care Provider Enrico Felton DO Primary Care Provider [phone] Aydee Mcgill RN Unavailable [phone] Encounter Details Date Type Department Care Team (Late st Contact Info) Description 03/10/2021 MyC Medical Advice [facility] [address] [place] [phone] [place] [id number] [place] [address] Social History Tobacco Use Types Packs/Day [...] Progress Patient-Stated? Author Financial Wellbeing General Yes Benjamin Rosey K, BLOCKER AND POLISHER GOLD WHEEL documented as of this encounter Visit Diagnoses Not on filedocumented in this encounter Additional Health Concerns Infection Onset Date Last Indicated Resolved Time 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 per 09/01/16 master yacht note; left foot tissue 10/08/16 10/11/2018 02/27/2019 Assessment Noted Time PHQ-9 Depression Total Score: 3 08/24/19 21 12:19 PM CDT documented as of this encounter Care Teams Garden Implement Mechanic Relationship Specialty [place] [address] [place] [address] PCP - General Family Medicine 08/24/20 01/23/22 No Ref-Primary, Physician PCP - General 02/20/22 06/29/22 [place] [address] [place] [address] PCP - General Family Medicine 06/30/22 [place] [address] [facility] 300 [place], [place] [address] Podiatry 10/18/16 [place] [address] [place] [address] Assigned PCP 08/29/20 Rebecca Palumbo MD 420 [facility] 297 [place], [place] [address] Assigned Neuroscience Provider 10/01/20 10/14/21 Anders Ramachandran Personal Advocate & Liaison (PAL) 10/14/20 07/07/21 Magdalena Brice Personal Advocate & Liaison (PAL) 11/14/21 12/27/21 Maddie Mae Personal Advocate & Liaison (PAL) Family Medicine 12/28/21 Aydee Mcgill RN RN Clinical Product Navigator Primary Care - CC 06/30/22 06/30/22 documented as of this encounter
--- OUTSIDE RECORDS SUMMARY | 2023-04-26 00:06 | XMS_ITS | Encounter Summary ---
Author Name Unknown Organization [place] Address [address] [place] [address]. [place] [address] Care Team Providers Care Manager Package Name Role Phone MirandacliftonEdu DPM Unavailable [phone] Enrico Felton DO Primary Care Provider [phone] Enrico Felton DO Unavailable [phone] Rebecca Palumbo MD Unavailable [phone] Magdalena Brice Unavailable Unavailable Maddie Mae Unavailable Unavailable No Ref-Primary, Physician Primary Care Provider Enrico Felton DO Primary Care Provider [phone] Aydee Mcgill RN Unavailable [phone] Encounter Details Date Type Department Care Team (Late st Contact Info) Description 07/29/2021 MyC Medical Advice [facility] [address] [place] [phone] [place] [address] [place] [address] Social History Tobacco Use Types [...] Author Financial Wellbeing General Yes Rosey Alexander, FACILITIES DIRECTOR documented as of this encounter Visit Diagnoses Not on filedocumented in this encounter Additional Health Concerns Infection Onset Date Last Indicated Resolved Time 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 per 09/01/16 film and video graphics designer note; left foot tissue 10/08/16 10/11/2018 02/27/2019 Assessment Noted Time PHQ-9 Depression Total Score: 3 08/24/19 21 12:19 PM CDT documented as of this encounter Care Teams Manager Package Relationship Specialty [place] [address] [facility] [place] [address] PCP - General Family Medicine 08/24/20 01/23/22 No Ref-Primary, Physician PCP - General 02/20/22 06/29/22 [place] [address] [place] [address] PCP - General Family Medicine 06/30/22 [place] [address] [facility] 300 [place] [address] Podiatry 10/18/16 [place] [address] [facility] [place] [address] Assigned PCP 08/29/20 Rebecca Palumbo MD 420 [facility] 297 [place], [place] [address] Assigned Neuroscience Provider 10/01/20 10/14/21 Magdalena Brice Personal Advocate & Liaison (PAL) 11/14/21 12/27/21 Maddie Mae Personal Advocate & Liaison (PAL) Family Medicine 12/28/21 Aydee Mcgill RN RN Clinical Product Navigator Primary Care - CC 06/30/22 06/30/22 documented as of this encounter
--- OUTSIDE RECORDS SUMMARY | 2023-04-26 00:06 | XMS_ITS | Encounter Summary ---
Author Name Unknown Organization [facility] Address [address] [place] [address]. [place] [address] Care Team Providers Care Die Maintenance Name Role Phone Stefan Crawfordemy DPBharath Unavailable [phone] Enrico Felton DO Primary Care Provider [phone] Enrico Felton DO Unavailable [phone] Rebecca Palumbo MD Unavailable [phone] Anders Ramachandran Unavailable Unavailable Magdalena Brice Unavailable Unavailable Maddie Mae Unavailable Unavailable No Ref-Primary, Physician Primary Care Provider Enrico Felton DO Primary Care Provider [phone] Aydee Mcgill RN Unavailable [phone] Encounter Details Date Type Department Care Team (Late st Contact Info) Description 06/01/2021 MyC Medical Advice [facility] [address] [place] [phone] [place] [address] [place] [address] Social History Tobacco Use Types Packs/Day [...] Financial Wellbeing General Yes Benjamin Rosey K, ANIMAL LABORATORY HELPER documented as of this encounter Visit Diagnoses Not on filedocumented in this encounter Additional Health Concerns Infection Onset Date Last Indicated Resolved Time 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 per 09/01/16 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 inspector note; left foot tissue 10/08/16 10/11/2018 02/27/2019 Assessment Noted Time PHQ-9 Depression Total Score: 3 08/24/19 21 12:19 PM CDT documented as of this encounter Care Teams Die Maintenance Relationship Specialty [place] [address] [place] [address] PCP - General Family Medicine 08/24/20 01/23/22 No Ref-Primary, Physician PCP - General 02/20/22 06/29/22 [place] [address] [place] [address] PCP - General Family Medicine 06/30/22 [place] [address] [facility] 300 [place], [place] [address] Podiatry 10/18/16 [place] [address] [place] [address] Assigned PCP 08/29/20 Rebecca Palumbo MD 420 [facility] 297 [place], [place] [address] Assigned Neuroscience Provider 10/01/20 10/14/21 Anders Ramachandran Personal Advocate & Liaison (PAL) 10/14/20 07/07/21 Magdalena Brice Personal Advocate & Liaison (PAL) 11/14/21 12/27/21 Maddie Mae Personal Advocate & Liaison (PAL) Family Medicine 12/28/21 Aydee Mcgill RN RN Clinical Product Navigator Primary Care - CC 06/30/22 06/30/22 documented as of this encounter
--- OUTSIDE RECORDS SUMMARY | 2023-04-26 00:06 | XMS_ITS | Encounter Summary ---
Author Name Unknown Organization [place] Address [address] [place] [address]. [place] [address] Care Team Providers Care Pond Supervisor Name Role Phone Stefan Crawfordemy DPBharath Unavailable [phone] Enrico Felton DO Primary Care Provider [phone] Enrico Felton DO Unavailable [phone] Rebecca Palumbo MD Unavailable [phone] Anders Ramachandran Unavailable Unavailable Magdalena Brice Unavailable Unavailable Maddie Mae Unavailable Unavailable No Ref-Primary, Physician Primary Care Provider Enrico Felton DO Primary Care Provider [phone] Aydee Mcgill RN Unavailable [phone] Encounter Details Date Type Department Care Team (Late st Contact Info) Description 04/14/2021 MyC Medical Advice [facility] [address] [place] [phone] [place] [address] [place] [address] Social History Tobacco Use Types Packs/Day [...] Financial Wellbeing General Yes Benjamin Rosey K, DOWNSTAIRS MAID documented as of this encounter Visit Diagnoses Not on filedocumented in this encounter Additional Health Concerns Infection Onset Date Last Indicated Resolved Time 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 per 09/01/16 corporate relations director note; left foot tissue 10/08/16 10/11/2018 02/27/2019 Assessment Noted Time PHQ-9 Depression Total Score: 3 08/24/19 21 12:19 PM CDT documented as of this encounter Care Teams Pond Supervisor Relationship Specialty [place] [address] [place] [address] PCP - General Family Medicine 08/24/20 01/23/22 No Ref-Primary, Physician PCP - General 02/20/22 06/29/22 [place] [address] [place] [address] PCP - General Family Medicine 06/30/22 [place] [address] [facility] 300 [place], [place] [address] Podiatry 10/18/16 [place] [address] [place] [address] Assigned PCP 08/29/20 Rebecca Palumbo MD 420 [facility] 297 [place], [place] [address] Assigned Neuroscience Provider 10/01/20 10/14/21 Anders Ramachandran Personal Advocate & Liaison (PAL) 10/14/20 07/07/21 Magdalena Brice Personal Advocate & Liaison (PAL) 11/14/21 12/27/21 Maddie Mae Personal Advocate & Liaison (PAL) Family Medicine 12/28/21 Aydee Mcgill RN RN Clinical Product Navigator Primary Care - CC 06/30/22 06/30/22 documented as of this encounter
--- OUTSIDE RECORDS SUMMARY | 2023-04-26 00:07 | XMS_ITS | Encounter Summary ---
Author Name Unknown Organization [facility] Address [address] [place] [address] Care Team Providers Care Supervisor Metalizing Name Role Phone Yvette Edu DPM Unavailable [phone] Enrico Felton DO Primary Care Provider [phone] Enrico Felton DO Unavailable [phone] Rebecca Palumbo MD Unavailable [phone] Anders Ramachandran Unavailable Unavailable Magdalena Brice Unavailable Unavailable Maddie Mae Unavailable Unavailable No Ref-Primary, Physician Primary Care Provider Enrico Felton DO Primary Care Provider [phone] Aydee Mcgill RN Unavailable [phone] Encounter Details Date Type Department Care Team (Late st Contact Info) Description 12/04/2020 Documentation Only INTERFACED REPORT Unknown, Provider Social History Tobacco Use Types Packs/Day [...] Exposure Response Date Recorded In the last month, have you been in contact with someone who was confirmed or suspected to have Coronavirus / COVID-19? No / Unsure 12/04/2020 1:52 PM CDT documented as of this encounter Plan of Treatment Not on file documented as of this encounter Goals Goal Patient Goal Type Associated Problems Recent Progress Patient-Stated? 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; left foot tissue 10/08/16 10/11/2018 02/27/2019 Assessment Noted Time PHQ-9 Depression Total Score: 3 08/24/19 21 12:19 PM CDT documented as of this encounter Care Teams Supervisor Metalizing Relationship Specialty [place] [address] [place] [address] PCP - General Family Medicine 08/24/20 01/23/22 No Ref-Primary, Physician PCP - General 02/20/22 06/29/22 [place] [address] [place] [address] PCP - General Family Medicine 06/30/22 [place] [address] [facility] 300 [place] [address] Podiatry 10/18/16 [place] [address] [place] [address] Assigned PCP 08/29/20 Rebecca Palumbo MD 420 [facility] 297 [place] [address] Assigned Neuroscience Provider 10/01/20 10/14/21 Anders Ramachandran Personal Advocate & Liaison (PAL) 10/14/20 07/07/21 Magdalena Brice Personal Advocate & Liaison (PAL) 11/14/21 12/27/21 Maddie Mae Personal Advocate & Liaison ([facility]) Family Medicine 12/28/21 Aydee Mcgill RN RN Clinical Product Navigator Primary Care - 06/30/22 06/30/22 documented as of this encounter
--- OUTSIDE RECORDS SUMMARY | 2023-04-26 00:07 | XMS_ITS | Encounter Summary ---
Author Name Unknown Organization [place] Address [address] [place] [address] Care Team Providers Care Lockstitch Waistline Joiner Name Role Phone Edu Crawford DPM Unavailable [phone] Altagracia Alexander DPM, Podiatry /Foot and Ankle Surgery Unavailable Enrico Felton DO Primary Care Provider [phone] Cy Leonardo Unavailable Unavailable Enrico Felton DO Unavailable [phone] Rebecca Palumbo MD Unavailable [phone] Anders Ramachandran Unavailable Unavailable Magdalena Brice Unavailable Unavailable Maddie Mae Unavailable Unavailable No Ref-Primary, Physician Primary Care Provider Enrico Felton DO Primary Care Provider [phone] Aydee Mcgill RN Unavailable [phone] Encounter Details Date Type Department Care Team (Late st Contact Info) Description 09/21/2020 Documentation Only INTERFACED REPORT Unknown, Provider Social [...] have Coronavirus / COVID-19? No / Unsure 09/07/2020 12:31 PM CDT documented as of this encounter Plan of Treatment Not on file documented as of this encounter Goals Goal Patient Goal Type Associated Problems Recent Progress Patient-Stated? Author Financial Wellbeing General Yes Rosey Alexander, OPTICAL EFFECTS LINE UP PERSON documented as of this encounter Visit Diagnoses Not on filedocumented in this encounter Additional Health Concerns Infection Onset Date Last Indicated Resolved Time 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 per 09/01/16 pull through hooker note; left foot tissue 10/08/16 10/11/2018 02/27/2019 Assessment Noted Time PHQ-9 Depression Total Score: 3 08/24/19 21 12:19 PM CDT documented as of this encounter Care Teams Lockstitch Waistline Joiner Relationship Specialty [place] [address] [place] [address] PCP - General Family Medicine 08/24/20 01/23/22 No Ref-Primary, Physician PCP - General 02/20/22 06/29/22 [place] [address] [place] [address] PCP - General Family Medicine 06/30/22 Edu Crawford D[place] [address] [facility] [address] [place] [address] Podiatry 10/18/16 Altagracia Alexander DPM, Podiatry/Foot and Ankle Surgery [address] [facility] 300 [place] [address] Assigned Musculoskeletal Provider 01/09/20 10/30/20 Cy Leonardo Personal Advocate & Liaison (PAL) 08/26/20 10/13/20 [place] [address] [place] [address] Assigned PCP 08/29/20 Rebecca Palumbo MD [address] [place] [address] 297 [place], [place] [address] Assigned Neuroscience Provider 10/01/20 10/14/21 Anders Ramachandran Personal Advocate & Liaison (PAL) 10/14/20 07/07/21 Magdalena Brice Personal Advocate & Liaison (PAL) 11/14/21 12/27/21 Maddie Mae Personal Advocate & Liaison (PAL) Family Medicine 12/28/21 Aydee Mcgill RN ROQUE Clinical Product Navigator Primary Care - CC 06/30/22 06/30/22 documented as of this encounter
--- OUTSIDE RECORDS SUMMARY | 2023-04-26 00:07 | XMS_ITS | Encounter Summary ---
Author Name Unknown Organization [place] Address [address] [place] [address]. [place] [address] Care Team Providers Care Brine Plant Operator Name Role Phone Stefan Crawfordemy DPBharath Unavailable [phone] Enrico Felton DO Primary Care Provider [phone] Enrico Felton DO Unavailable [phone] Rebecca Palumbo MD Unavailable [phone] Anders Ramachandran Unavailable Unavailable Magdalena Brice Unavailable Unavailable Maddie Mae Unavailable Unavailable No Ref-Primary, Physician Primary Care Provider Enrico Felton DO Primary Care Provider [phone] Aydee Mcgill RN Unavailable [phone] Encounter Details Date Type Department Care Team (Late st Contact Info) Description 01/27/2021 MyC Medical Advice [facility] [address] [place] [phone] Enrico [place] DO [address] [place] [address] Social History Tobacco Use Types Packs/Day [...] Financial Wellbeing General Yes Benjamin Rosey K, CONTENT DEVELOPMENT MANAGER documented as of this encounter Visit Diagnoses Not on filedocumented in this encounter Additional Health Concerns Infection Onset Date Last Indicated Resolved Time 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 per 09/01/16 steel pourer note; left foot tissue 10/08/16 10/11/2018 02/27/2019 Assessment Noted Time PHQ-9 Depression Total Score: 3 08/24/19 21 12:19 PM CDT documented as of this encounter Care Teams Brine Plant Operator Relationship Specialty [place] [address] [place] [address] PCP - General Family Medicine 08/24/20 01/23/22 No Ref-Primary, Physician PCP - General 02/20/22 06/29/22 [place] [address] [place] [address] PCP - General Family Medicine 06/30/22 [place] [address] [facility] 300 [place], [place] [address] Podiatry 10/18/16 [place] [address] [place] [address] Assigned PCP 08/29/20 Rebecca Palumbo MD 420 [facility] 297 [place], [place] [address] Assigned Neuroscience Provider 10/01/20 10/14/21 Anders Ramachandran Personal Advocate & Liaison (PAL) 10/14/20 07/07/21 Magdalena Brice Personal Advocate & Liaison (PAL) 11/14/21 12/27/21 Maddie Mae Personal Advocate & Liaison (PAL) Family Medicine 12/28/21 Aydee Mcgill RN RN Clinical Product Navigator Primary Care - CC 06/30/22 06/30/22 documented as of this encounter
--- OUTSIDE RECORDS SUMMARY | 2023-04-26 00:07 | XMS_ITS | Encounter Summary ---
Author Name Unknown Organization [facility] Address [address] [place] [address] Care Team Providers Care Physician Office Nurse Name Role Phone Edu Crawford DPM Unavailable [phone] Altagracia Alexander DPM, Podiatry /Foot and Ankle Surgery Unavailable Enrico Felton DO Unavailable [phone] Enrico Felton DO Primary Care Provider [phone] Cy Leonardo Unavailable Unavailable Enrico Felton DO Unavailable Rebecca Palumbo MD Unavailable [phone] Anders Ramachandran Unavailable Unavailable Magdalena Brice Unavailable Unavailable Maddie Mae Unavailable Unavailable No Ref-Primary, Physician Primary Care Provider Enrico Felton DO Primary Care Provider [phone] Aydee Mcgill RN Unavailable [phone] Encounter Details Date Type Department Care Team (Late st Contact Info) Description 08/24/2020 Documentation Only INTERFACED REPORT Unknown, Provider Social [...] have Coronavirus / COVID-19? No / Unsure 08/23/2020 12:07 PM CDT documented as of this encounter Plan of Treatment Not on file documented as of this encounter Goals Goal Patient Goal Type Associated Problems Recent Progress Patient-Stated? Author Financial Wellbeing General Yes Rosey Alexander, VOIP ENGINEER documented as of this encounter Visit Diagnoses Not on filedocumented in this encounter Additional Health Concerns Infection Onset Date Last Indicated Resolved Time 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 per 09/01/16 casting director note; left foot tissue 10/08/16 10/11/2018 02/27/2019 Assessment Noted Time PHQ-9 Depression Total Score: 3 08/24/19 21 12:19 PM CDT documented as of this encounter Care Teams Physician Office Nurse Relationship Specialty [place] [address] [place] [address] PCP - General Family Medicine 08/24/20 01/23/22 No Ref-Primary, Physician PCP - General 02/20/22 06/29/22 [place] [address] [place] [address] PCP - General Family Medicine 06/30/22 Edu Crawford DPM [address] [facility] [address] [place] [address] Podiatry 10/18/16 Altagracia Alexander DPM, Podiatry/Foot and Ankle Surgery [address] [facility] [address] [place] [address] Assigned Musculoskeletal Provider 01/09/20 10/30/20 [place] [address] [place] [address] Assigned PCP 02/01/20 08/28/20 Cy Leonardo Personal Advocate & Liaison (PAL) 08/26/20 10/13/20 [place] [address] [facility] [place] [address] Assigned PCP 08/29/20 Rebecca Palumbo MD [address] [place] [address] [address] [place] [address] Assigned Neuroscience Provider 10/01/20 10/14/21 Anders Ramachandran Personal Advocate & Liaison (PAL) 10/14/20 07/07/21 Magdalena Brice Personal Advocate & Liaison (PAL) 11/14/21 12/27/21 Maddie Mae Personal Advocate & Liaison (PAL) Family Medicine 12/28/21 Aydee Mcgill RN ROQUE Clinical Product Navigator Primary Care - CC 06/30/22 06/30/22 documented as of this encounter
--- OUTSIDE RECORDS SUMMARY | 2023-04-26 00:07 | XMS_ITS | Encounter Summary ---
Author Name Unknown Organization [facility] Address [address] [place] [address] Care Team Providers Care Etl Database Developer Name Role Phone Edu Crawfrod DPM Unavailable [phone] Altagracia Alexander DPM, Podiatry /Foot and Ankle Surgery Unavailable Enrico Felton DO Primary Care Provider [phone] Cy Leonardo Unavailable Unavailable Enrico Felton DO Unavailable [phone] Rebecca Palumbo MD Unavailable [phone] Anders Ramachandran Unavailable Unavailable Magdalena Brice Unavailable Unavailable Maddie Mae Unavailable Unavailable No Ref-Primary, Physician Primary Care Provider Enrico Felton DO Primary Care Provider [phone] Aydee Mcgill RN Unavailable [phone] Encounter Details Date Type Department Care Team (Late st Contact Info) Description 10/05/2020 MyC Medical Advice [facility] Sched[facility] [address] [place] [address] Beverley Woodward Social History Tobacco Use Types Packs/Day Years [...] Author Financial Wellbeing General Yes Rosey Alexander, MULTIPLE NEEDLE STITCHER documented as of this encounter Visit Diagnoses Not on filedocumented in this encounter Additional Health Concerns Infection Onset Date Last Indicated Resolved Time 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 per 09/01/16 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; 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 foot tissue 10/08/16 10/11/2018 02/27/2019 Assessment Noted Time PHQ-9 Depression Total Score: 3 08/24/19 21 12:19 PM CDT documented as of this encounter Care Teams Etl Database Developer Relationship Specialty [place] [address] [place] [address] PCP - General Family Medicine 08/24/20 01/23/22 No Ref-Primary, Physician PCP - General 02/20/22 06/29/22 [place] [address] [place] [address] PCP - General Family Medicine 06/30/22 [place] D[place] [address] [facility] [address] [place] [address] Podiatry 10/18/16 Altagracia Alexander DPM, Podiatry/Foot and Ankle Surgery [address] [facility] [address] [place] [address] Assigned Musculoskeletal Provider 01/09/20 10/30/20 Cy Leonardo Personal Advocate & Liaison (PAL) 08/26/20 10/13/20 [place] [address] [place] [address] Assigned PCP 08/29/20 Rebecca Palumbo MD [address] [place] [address] [address] [place] [address] Assigned Neuroscience Provider 10/01/20 10/14/21 Anders Ramachandran Personal Advocate & Liaison (PAL) 10/14/20 07/07/21 Magdalena Brice Personal Advocate & Liaison (PAL) 11/14/21 12/27/21 Maddie Mae Personal Advocate & Liaison (PAL) Family Medicine 12/28/21 Aydee Mcgill RN RN Clinical Product Navigator Primary Care - CC 06/30/22 06/30/22 documented as of this encounter
--- OUTSIDE RECORDS SUMMARY | 2023-04-26 00:07 | XMS_ITS | Encounter Summary ---
Author Name Unknown Organization [facility] Address [address] [place] [address]. [place] [address] Care Team Providers Care Website Designer Name Role Phone Stefan Crawfordemy DPBharath Unavailable [phone] Enrico Felton DO Primary Care Provider [phone] Enrico Felton DO Unavailable [phone] Rebecca Palumbo MD Unavailable [phone] Anders Ramachandran Unavailable Unavailable Magdalena Brice Unavailable Unavailable Maddie Mae Unavailable Unavailable No Ref-Primary, Physician Primary Care Provider Enrico Felton DO Primary Care Provider [phone] Aydee Mcglil RN Unavailable [phone] Encounter Details Date Type Department Care Team (Late st Contact Info) Description 02/24/[address] [facility] [id number] [place] [phone] [place] [id number] [place] [address] Social History Tobacco Use Types Packs/Day [...] Financial Wellbeing General Yes Benjamin Rosey K, HARVESTER OPERATOR documented as of this encounter Visit Diagnoses Not on filedocumented in this encounter Additional Health Concerns Infection Onset Date Last Indicated Resolved Time 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 per 09/01/16 director of retail marketing note; left foot tissue 10/08/16 10/11/2018 02/27/2019 Assessment Noted Time PHQ-9 Depression Total Score: 3 08/24/19 21 12:19 PM CDT documented as of this encounter Care Teams Website Designer Relationship Specialty [place] [address] [place] [address] PCP - General Family Medicine 08/24/20 01/23/22 No Ref-Primary, Physician PCP - General 02/20/22 06/29/22 [place] [address] [place] [address] PCP - General Family Medicine 06/30/22 [place] [address] [facility] [address] [place], [place] [address] Podiatry 10/18/16 [place] [address] [place] [address] Assigned PCP 08/29/20 Rebecca Palumbo MD 420 [facility] [address] [place], [place] [address] Assigned Neuroscience Provider 10/01/20 10/14/21 Anders Ramachandran Personal Advocate & Liaison (PAL) 10/14/20 07/07/21 Magdalena Brice Personal Advocate & Liaison (PAL) 11/14/21 12/27/21 Maddie Mae Personal Advocate & Liaison (PAL) Family Medicine 12/28/21 Aydee Mcgill RN RN Clinical Product Navigator Primary Care - CC 06/30/22 06/30/22 documented as of this encounter
--- OUTSIDE RECORDS SUMMARY | 2023-04-26 00:07 | XMS_ITS | Encounter Summary ---
Author Name Unknown Organization [facility] Address [address] [place] [address] Care Team Providers Care Engineering Illustrator Name Role Phone MirandacliftonEdu DPBharath Unavailable [phone] Enrico Felton DO Primary Care Provider [phone] Enrico Felton DO Unavailable [phone] Rebecca Palumbo MD Unavailable [phone] Anders Ramachandran Unavailable Unavailable Magdalena Brice Unavailable Unavailable Maddie Mae Unavailable Unavailable No Ref-Primary, Physician Primary Care Provider Enrico Felton DO Primary Care Provider [phone] Aydee Mcgill RN Unavailable [phone] Encounter Details Date Type Department Care Team (Late st Contact Info) Description 02/24/2021 MyC Medical Advice [facility] [address] [place] [address] [place] Social History Tobacco Use [...] Author Financial Wellbeing General Yes Rosey Alexander, GANG MINER documented as of this encounter Visit Diagnoses Not on filedocumented in this encounter Additional Health Concerns Infection Onset Date Last Indicated Resolved Time 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 per 09/01/16 felting machine operator helper note; left foot tissue 10/08/16 10/11/2018 02/27/2019 Assessment Noted Time PHQ-9 Depression Total Score: 3 08/24/19 21 12:19 PM CDT documented as of this encounter Care Teams Engineering Illustrator Relationship Specialty [place] [address] [place] [address] PCP - General Family Medicine 08/24/20 01/23/22 No Ref-Primary, Physician PCP - General 02/20/22 06/29/22 [place] [address] [place] [address] PCP - General Family Medicine 06/30/22 [place] [address] [facility] [address] [place] [address] Podiatry 10/18/16 [place] [address] [place] [address] Assigned PCP 08/29/20 Rebecca Palumbo MD [address] [place] [address] 297 [place] [address] Assigned Neuroscience Provider 10/01/20 10/14/21 Anders Ramachandran Personal Advocate & Liaison (PAL) 10/14/20 07/07/21 Magdalena Brice Personal Advocate & Liaison (PAL) 11/14/21 12/27/21 Maddie Mae Personal Advocate & Liaison (PAL) Family Medicine 12/28/21 Aydee Mcgill RN RN Clinical Product Navigator Primary Care - CC 06/30/22 06/30/22 documented as of this encounter
--- OUTSIDE RECORDS SUMMARY | 2023-04-26 00:07 | XMS_ITS | Encounter Summary ---
Author Name Unknown Organization [facility] Address [address] [place] [address]. [place] [address] Care Team Providers Care Timber Rider Name Role Phone ShermanmanuelStefan lazoemy DPBharath Unavailable [phone] Enrico Felton DO Primary Care Provider [phone] Enrico Felton DO Unavailable [phone] Rebecca Palumbo MD Unavailable [phone] Anders Ramachandran Unavailable Unavailable Magdalena Brice Unavailable Unavailable Maddie Mae Unavailable Unavailable No Ref-Primary, Physician Primary Care Provider Enrico Felton DO Primary Care Provider [phone] Aydee Mcgill RN Unavailable [phone] Encounter Details Date Type Department Care Team (Late st Contact Info) Description 11/17/2020 MyC Medical Advice [facility] [address] [place] [phone] [place] [id number] [place] [address] Social History Tobacco Use Types Packs/Day [...] Financial Wellbeing General Yes Benjamin Rosey K, HOTBED OPERATOR documented as of this encounter Visit Diagnoses Not on filedocumented in this encounter Additional Health Concerns Infection Onset Date Last Indicated Resolved Time 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 per 09/01/16 sewer pipe layer note; left foot tissue 10/08/16 10/11/2018 02/27/2019 Assessment Noted Time PHQ-9 Depression Total Score: 3 08/24/19 21 12:19 PM CDT documented as of this encounter Care Teams Timber Rider Relationship Specialty [place] [address] [place] [address] PCP - General Family Medicine 08/24/20 01/23/22 No Ref-Primary, Physician PCP - General 02/20/22 06/29/22 [place] [address] [place] [address] PCP - General Family Medicine 06/30/22 Edu [place] DPM [address] [facility] 300 [place], [place] [address] Podiatry 10/18/16 [place] [address] [place] [address] Assigned PCP 08/29/20 Rebecca Palumbo MD 420 [facility] 297 [place], [place] [address] Assigned Neuroscience Provider 10/01/20 10/14/21 Anders Ramachandran Personal Advocate & Liaison (PAL) 10/14/20 07/07/21 Magdalena Brice Personal Advocate & Liaison (PAL) 11/14/21 12/27/21 Maddie Mae Personal Advocate & Liaison (PAL) Family Medicine 12/28/21 Aydee Mcgill RN RN Clinical Product Navigator Primary Care - CC 06/30/22 06/30/22 documented as of this encounter
--- OUTSIDE RECORDS SUMMARY | 2023-04-26 00:08 | XMS_ITS | Encounter Summary ---
Author Name Unknown Organization [facility] Address [address] [place] [address] Care Team Providers Care Loss Control Consultant Name Role Phone J CarlosMadhuri Cindy [facility] Primary Care Prov ider Edu Crawford DPM Unavailable [phone] Altagracia Alexander DPM, Podiatry /Foot and Ankle Surgery Unavailable Enrico Felton DO Unavailable Enrico Felton DO Primary Care Provider [phone] Cy Leonardo Unavailable Unavailable Enrico Felton DO Unavailable [phone] Rebecca Palumbo MD Unavailable [phone] Anders Ramachandran Unavailable Unavailable Magdalena Brice Unavailable Unavailable Maddie Mae Unavailable Unavailable No Ref-Primary, Physician Primary Care Provider Enrico Felton DO Primary Care Provider [phone] Aydee Mcgill RN Unavailable [phone] Encounter Details Date Type Department Care Team (Late st Contact Info) Description 08/18/2020 MyC Medical Advice [facility] [address] [place] [phone] Denia Mccrary, SR. OPERATIONS MANAGER Social History Tobacco Use Types Packs/Day Years Used Date Smoking Tobacco: Every Day Cigarettes 1 Smokeless Tobacco: Never Alcohol Use Standard Drinks/Week Comments No 0 (1 standard drink = 0.6 oz pur e alcohol) PHQ-2 Answer Date Recorded PHQ-2 Score 4 01/21/2020 Sex and Gender Information Value Date Recorded Sex Assigned at Not on file Gender Identity Not on file Sexual Orientation Not on file COVID-19 Exposure Response Date Recorded In the last month, have you been in contact with someone who was confirmed or suspected to have Coronavirus / COVID-19? No / Unsure 08/18/2020 10:49 AM CDT documented as of this encounter Plan of Treatment Not on file documented as of this encounter Goals Goal Patient Goal Type Associated Problems Recent Progress Patient-Stated? Author Financial Wellbeing General Yes Rosey Alexander, RARE/ENDANGERED SPECIES SPECIALIST documented as of this encounter Visit Diagnoses Not on filedocumented in this encounter Additional Health Concerns Infection Onset Date Last Indicated Resolved Time 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 per 09/01/16 java j2ee architect note; left foot tissue 10/08/16 10/11/2018 02/27/2019 Assessment Noted Time PHQ-9 Depression Total Score: 10 020 4:12 PM SHAREPOINT DESIGNER DEVELOPER documented as of this encounter Care Teams Loss Control Consultant Relationship Specialty Start Date End Date Madhuri Whitman APRN CNP PCP - General Nurse Practitioner - Family 09/04/16 08/23/20 [place] [address] [place] [address] PCP - General Family Medicine 08/24/20 01/23/22 No Ref-Primary, Physician PCP - General 02/20/22 06/29/22 [place] [address] [place] [address] PCP - General Family Medicine 06/30/22 [place] [address] [facility] [address] [place] [address] Podiatry 10/18/16 Altagracia Alexander DPM, Podiatry/Foot and Ankle Surgery [address] [facility] [address] [place] [address] Assigned Musculoskeletal Provider 01/09/20 10/30/20 [place] [address] [place] [address] Assigned PCP 02/01/20 08/28/20 Cy Leonardo Personal Advocate & Liaison (PAL) 08/26/20 10/13/20 [place] [address] [place] [address] Assigned PCP 08/29/20 Rebecca Palmubo MD [address] [place] [address] 297 [place], [place] [address] Assigned Neuroscience Provider 10/01/20 10/14/21 Anders Ramachandran Personal Advocate & Liaison (PAL) 10/14/20 07/07/21 Magdalena Brice Personal Advocate & Liaison (PAL) 11/14/21 12/27/21 Maddie Mae Personal Advocate & Liaison (PAL) Family Medicine 12/28/21 Aydee Mcgill RN ROQUE Clinical Product Navigator Primary Care - CC 06/30/22 06/30/22 documented as of this encounter
--- OUTSIDE RECORDS SUMMARY | 2023-04-26 00:08 | XMS_ITS | Encounter Summary ---
Author Name Unknown Organization [facility] Address [address] [place] [address] Care Team Providers Care Irrigator Gravity Flow Name Role Phone Madhuri Whitman PRINT CONTROLLER CARDIOLOGY SPECIALIST Primary Care Prov ider Edu Crawford DPM Unavailable [phone] Madhuri Whitman APRN CARDIOLOGY SPECIALIST Unavailable + Rosey Alexander PERSONAL INVESTMENT ADVISER Unavailable [phone] Craig Montenegro PA-C Unavailable Altagracia Alexander DPM, Podiatry /Foot and Ankle Surgery Unavailable Enrico Felton DO Unavailable [phone] Enrico Felton DO Primary Care Provider [phone] Cy Leonardo Unavailable Unavailable Enrico Felton DO Unavailable [phone] Rebecca Palumbo MD Unavailable [phone] Anders Ramachandran Unavailable Unavailable Magdalena Brice Unavailable Unavailable Maddie Mae Unavailable Unavailable No Ref-Primary, Physician Primary Care Provider Enrico Felton DO Primary Care Provider [phone] Aydee Mcgill RN Unavailable [phone] Encounter Details Date Type Department Care Team (Late st Contact Info) Description 04/30/2019 MyC Medical Advice [address], [address] [place] [address] Melissa Flores, JAYCEE Social History Tobacco Use Types Packs/Day Years Used Date Smoking Tobacco: Every Day Cigarettes 1 Smokeless Tobacco: Never Alcohol Use Standard Drinks/Week Comments No 0 (1 standard drink = 0.6 oz pur e alcohol) PHQ-2 Answer Date Recorded PHQ-2 Score 1 02/17/2019 Sex and Gender Information Value Date Recorded Sex Assigned at Not on file Gender Identity Not on file Sexual Orientation Not on file documented as of this encounter Plan of Treatment Not on file documented as of this encounter Goals Goal Patient Goal Type Associated Problems Recent Progress Patient-Stated? Author Financial Wellbeing General Yes Rosey Alexander, PERSONAL INVESTMENT ADVISER documented as of this encounter Visit Diagnoses Not on filedocumented in this encounter Additional Health Concerns Infection Onset Date Last Indicated Resolved Time 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 per 09/01/16 pump servicer supervisor note; left foot tissue 10/08/16 10/11/2018 02/27/2019 Assessment Noted Time PHQ-9 Depression Total Score: 1 02/18/20 19 2:22 PM CERTIFIED CORPORATE TRAVEL EXECUTIVE documented as of this encounter Care Teams Irrigator Gravity Flow Relationship Specialty Start Date End Date Madhuri Whitman APRN CNP PCP - General Nurse Practitioner - Family 09/04/16 08/23/20 [place] [address] [place] [address] PCP - General Family Medicine 08/24/20 01/23/22 No Ref-Primary, Physician PCP - General 02/20/22 06/29/22 [place] [address] [place] [address] PCP - General Family Medicine 06/30/22 Edu [place] DPM [address] [facility] [address] [place], [place] [address] Podiatry 10/18/16 Madhuri Whitman APRN CARDIOLOGY SPECIALIST [address] [facility] [place] [address] Assigned PCP 09/03/16 09/27/19 Rosey Alexander, PERSONAL INVESTMENT ADVISER Lead Multi Disciplined Language Analyst Primary Care - CC 11/08/18 05/07/19 Craig Montenegro PA-C [address] [facility] [place] [address] Assigned PCP 09/28/19 01/31/20 Altagracia Alexander DPM, Podiatry/Foot and Ankle Surgery [address] [place] [address] Assigned Musculoskeletal Provider 01/09/20 10/30/20 [place] [address] [place] [address] Assigned PCP 02/01/20 08/28/20 Cy Leonardo Personal Advocate & Liaison (PAL) 08/26/20 10/13/20 [place] [address] [place], [place] [address] Assigned PCP 08/29/20 Rebecca Palumbo MD [address] [place] [address] 297 [place] [address] Assigned Neuroscience Provider 10/01/20 10/14/21 Anders Ramachandran Personal Advocate & Liaison (PAL) 10/14/20 07/07/21 Magdalena Brice Personal Advocate & Liaison (PAL) 11/14/21 12/27/21 Maddie Mae Personal Advocate & Liaison (PAL) Family Medicine 12/28/21 Aydee Mcgill RN RN Clinical Product Navigator Primary Care - CC 06/30/22 06/30/22 documented as of this encounter
--- OUTSIDE RECORDS SUMMARY | 2023-04-26 00:08 | XMS_ITS | Encounter Summary ---
Author Name Unknown Organization [facility] Address [address] [place] [address] Care Team Providers Care Rags Laborer Name Role Phone J CarlosMadhuri Cindy [facility]ABA [employer] Primary Care Prov ider Edu Crawford DPM Unavailable Altagracia Alexander DPM, Podiatry /Foot and Ankle Surgery Unavailable Enrico Felton DO Unavailable [phone] Enrico Felton DO Primary Care Provider [phone] Cy Leonardo Unavailable Unavailable Enrico Felton DO Unavailable [phone] Rebecca Palumbo MD Unavailable [phone] Anders Ramachandran Unavailable Unavailable Magdalena Brice Unavailable Unavailable Maddie Mae Unavailable Unavailable No Ref-Primary, Physician Primary Care Provider Enrico Felton DO Primary Care Provider [phone] Aydee Mcgill RN Unavailable [phone] Reason for Visit * Reason Comments Medication Refill Encounter Details Date Type Department Care Team (Late st Contact Info) Description 05/19/[address], [address] [place] [address] Craig Montenegro, ZAHRA [address] [facility] [place] [address] Medication Refill Social History Tobacco Use Types Packs/Day Years [...] encounter Miscellaneous Notes * Telephone Encounter - Madhuri Whitman APRN CNP - 06/08/2020 3:28 PM CDT I have not seen this patient since September 2018. I see she did do a virtual appt with Dr. Felton last January; will route to him. Madhuri Whitman CNP * Telephone Encounter - Camila Mejia - 06/08/2020 7:11 AM CDT No appt made, routing back to rm refills. * Telephone Encounter - Camila Mejia - 06/01/2020 8:01 AM CDT 3rd attempt, mailed out letter * Telephone Encounter - Dianelys Smalls - 05/25/2020 11:44 AM CST Attempted to call pt x3 getting Call Rejected message. Unable to lvm. Sending second MyChart message. Maeve Smalls- Architecture Drafter ORT SERVICES TECH * Telephone Encounter - Camila Mejia - 05/20/2020 2:41 PM CST 1st attempt, sent OpenSynergyhart message to schedule px & fasting labs ORT SERVICES TECH * Telephone Encounter - Earline Powell, RN - 05/20/2020 2:03 PM CST Please help patient schedule fasting px. Last labs 06/2018. Visit Type Follow Up 01/21/2020 Enrico Felton DO Virtual Visit Return in about 3 months (around 04/22/2020) for Routine preventive. Route to refill if med coverage needed. Earline Powell RN ORT SERVICES TECH documented in this encounter Plan of Treatment Not on file documented as of this encounter Goals Goal Patient Goal Type Associated Problems Recent Progress Patient-Stated? 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 per 09/01/16 director of consumer marketing note; left foot tissue 10/08/16 10/11/2018 02/27/2019 Assessment Noted Time PHQ-9 Depression Total Score: 10 020 4:12 PM SUPPORT SERVICES TECH documented as of this encounter Care Teams Rags Laborer Relationship Specialty Start Date End Date Madhuri Whitman APRN CNP PCP - General Nurse Practitioner - Family 09/04/16 08/23/20 [place] [address] [place], [place] [id number] PCP - General Family Medicine 08/24/20 01/23/22 No Ref-Primary, Physician PCP - General 02/20/22 06/29/22 [place] [address] [place], [place] 8[address] PCP - General Family Medicine 06/30/22 [place] [address] [facility] [address] [place] [address] Podiatry 10/18/16 Altagracia Alexander DPM, Podiatry/Foot and Ankle Surgery [address] [place], [place] [address] Assigned Musculoskeletal Provider 01/09/20 10/30/20 [place] [address] [place] [address] Assigned PCP 02/01/20 08/28/20 Cy Leonardo Personal Advocate & Liaison (PAL) 08/26/20 10/13/20 [place] [address] [place] [address] Assigned PCP 08/29/20 Rebecca Palumbo MD [address] [place] [address] [address] [place], [place] [address] Assigned Neuroscience Provider 10/01/20 10/14/21 Anders Ramachandran Personal Advocate & Liaison (PAL) 10/14/20 07/07/21 Magdalena Brice Personal Advocate & Liaison (PAL) 11/14/21 12/27/21 Maddie Mae Personal Advocate & Liaison (PAL) Family Medicine 12/28/21 Aydee Mcgill RN RN Clinical Product Navigator Primary Care - CC 06/30/22 06/30/22 documented as of this encounter
--- OUTSIDE RECORDS SUMMARY | 2023-04-26 00:08 | XMS_ITS | Encounter Summary ---
Author Name Unknown Organization [facility] Address [address] [place] [address] Care Team Providers Care Neuroradiologist Name Role Phone J CarlosMadhuri Cindy SABA [facility] Primary Care Prov ider Edu Crawford DPM Unavailable Altagracia Alexander DPM, Podiatry /Foot and Ankle Surgery Unavailable Enrico Felton DO Unavailable [phone] Enrico Felton DO Primary Care Provider [phone] Cy Leonardo Unavailable Unavailable Enrico Felton DO Unavailable [phone] Rebecca Palumbo MD Unavailable [phone] Anders Ramachandran Unavailable Unavailable Magdalena Brice Unavailable Unavailable Maddie Mae Unavailable Unavailable No Ref-Primary, Physician Primary Care Provider Enrico Felton DO Primary Care Provider [phone] Aydee Mcglil RN Unavailable [phone] Reason for Visit * Reason Comments Medication Refill Encounter Details Date Type Department Care Team (Late st Contact Info) Description 02/13/[address], [address] [place] [address] Craig Mont[place]egro [place]- [address] [place] [address] Medication Refill Social History Tobacco Use Types [...] have Coronavirus / COVID-19? No / Unsure 01/21/2020 3:59 PM ECONOMICS INSTRUCTOR documented as of this encounter Miscellaneous Notes * Telephone Encounter - Anabell Patten CMA - 03/01/2020 1:44 PM ECONOMICS INSTRUCTOR LMOM will send letter-Needs lab only appt Anabell Patten CMA OMICS INSTRUCTOR * Telephone Encounter - Jenny Roman MA - 02/20/2020 11:18 AM CST LVM for pt to schedule a lab only appt. Jenny Roman MA on 02/20/2020 at 11:18 AM OMICS INSTRUCTOR * Telephone Encounter - America Green - 02/16/2020 10:30 AM CST Left message for patient to call and schedule lab only America Green/ Sugar Presser OMICS INSTRUCTOR * Telephone Encounter - Cooper Rice MD - 02/16/2020 10:27 AM CST Pt needs lab only appt Already futured Cooper Rice MD OMICS INSTRUCTOR * Telephone Encounter - Azul Packer RN - 02/13/2020 7:32 AM ECONOMICS INSTRUCTOR Routing refill request to provider for review/approval because: Labs not current: Lipids RN will issue 90 day denise. Visit is up to date. Please advise on labs. Azul Packer RN [facility] -- Triage Nurse OMICS INSTRUCTOR documented in this encounter Plan of Treatment Not on file documented as of this encounter Goals Goal Patient Goal Type Associated Problems Recent Progress Patient-Stated? Author Financial Wellbeing General Yes Rosey Alexander, SURFACER documented as of this encounter Visit Diagnoses Diagnosis Hyperlipidemia with target LDL less than 100 Other and unspecified hyperlipidemia documented in this encounter Additional Health Concerns Infection Onset Date Last Indicated Resolved Time 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 per 09/01/16 email marketing manager note; left foot tissue 10/08/16 10/11/2018 02/27/2019 Assessment Noted Time PHQ-9 Depression Total Score: 10 020 4:12 PM ECONOMICS INSTRUCTOR documented as of this encounter Care Teams Neuroradiologist Relationship Specialty Start Date End Date Madhuri Whitman APRN BRAKE REPAIR MECHANIC PCP - General Nurse Practitioner - Family 09/04/16 08/23/20 [place] [address] [place] [address] PCP - General Family Medicine 08/24/20 01/23/22 No Ref-Primary, Physician PCP - General 02/20/22 06/29/22 [place] [address] [place] [address] PCP - General Family Medicine 06/30/22 [place] [address] [address] Podiatry 10/18/16 Altagracia Alexander DPM, Podiatry/Foot and Ankle Surgery [address] [place] [address] Assigned Musculoskeletal Provider 01/09/20 10/30/20 [place] [address] [place] [address] Assigned PCP 02/01/20 08/28/20 Cy Leonardo Personal Advocate & Liaison (PAL) 08/26/20 10/13/20 [place] [address] [place] [address] Assigned PCP 08/29/20 Rebecca Palumbo MD [address] [place] [address] [address] [place] [address] Assigned Neuroscience Provider 10/01/20 10/14/21 Anders Ramachandran Personal Advocate & Liaison (PAL) 10/14/20 07/07/21 Magdalena Brice Personal Advocate & Liaison (PAL) 11/14/21 12/27/21 Maddie Mae Personal Advocate & Liaison (PAL) Family Medicine 12/28/21 Aydee Mcgill RN RN Clinical Product Navigator Primary Care - CC 06/30/22 06/30/22 documented as of this encounter
--- OUTSIDE RECORDS SUMMARY | 2023-04-26 00:08 | XMS_ITS | Encounter Summary ---
Author Name Unknown Organization [place] Address [address] [place] [address] Care Team Providers Care Emergency Vehicle Operations Instructor Name Role Phone J CarlosArielstephanie White APRN [facility] Primary Care Prov ider Edu Crawford DPM Unavailable [phone] Altagracia Alexander DPM, Podiatry /Foot and Ankle Surgery Unavailable Enrico Felton DO Unavailable [phone] Enrico Felton DO Primary Care Provider [phone] Cy Leonardo Unavailable Unavailable Enrico Felton DO Unavailable [phone] Rebecca Palumbo MD Unavailable [phone] Anders Ramachandran Unavailable Unavailable Magdalena Brice Unavailable Unavailable Maddie Mae Unavailable Unavailable No Ref-Primary, Physician Primary Care Provider Enrico Felton DO Primary Care Provider [phone] Aydee Mcgill RN Unavailable [phone] Encounter Details Date Type Department Care Team (Late st Contact Info) Description 05/20/2020 [facility] [address] [address] Camila Mejia Social History Tobacco Use Types Packs/Day Years [...] Author Financial Wellbeing General Yes Rosey Alexander, NEURORADIOLOGIST documented as of this encounter Visit Diagnoses Not on filedocumented in this encounter Additional Health Concerns Infection Onset Date Last Indicated Resolved Time 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 per 09/01/16 motivational speaker note; left foot tissue 10/08/16 10/11/2018 02/27/2019 Assessment Noted Time PHQ-9 Depression Total Score: 10 020 4:12 PM TECHNICAL TRAINING MANAGER documented as of this encounter Care Teams Emergency Vehicle Operations Instructor Relationship Specialty Start Date End Date Madhuri Whitman APRN CNP PCP - General Nurse Practitioner - Family 09/04/16 08/23/20 [place] [address] [place] [address] PCP - General Family Medicine 08/24/20 01/23/22 No Ref-Primary, Physician PCP - General 02/20/22 06/29/22 [place] [address] [place] [address] PCP - General Family Medicine 06/30/22 Edu Crawford DPM [address] [facility] [address] [place] [address] Podiatry 10/18/16 Benjamin, Altagracia J, DPM, Podiatry/Foot and Ankle Surgery [address] [place] [address] Assigned Musculoskeletal Provider 01/09/20 10/30/20 [place] [address] [place] [address] Assigned PCP 02/01/20 08/28/20 Cy Leonardo Personal Advocate & Liaison (PAL) 08/26/20 10/13/20 [place] [address] [place] [address] Assigned PCP 08/29/20 Rebecca Palumbo MD [address] [place] [address] Assigned Neuroscience Provider 10/01/20 10/14/21 Anders Ramachandran Personal Advocate & Liaison (PAL) 10/14/20 07/07/21 Magdalena Brice Personal Advocate & Liaison (PAL) 11/14/21 12/27/21 Maddie Mae Personal Advocate & Liaison (PAL) Family Medicine 12/28/21 Aydee Mcgill RN RN Clinical Product Navigator Primary Care - CC 06/30/22 06/30/22 documented as of this encounter
--- OUTSIDE RECORDS SUMMARY | 2023-04-26 00:08 | XMS_ITS | Encounter Summary ---
Author Name Unknown Organization [facility] Address [address] [place] [address] Care Team Providers Care Wet Room Worker Name Role Phone J CarlosMadhuri Cindy [facility] Primary Care Prov ider Edu Crawford DPM Unavailable [phone] Craig Montenegro PA-C Unavailable Altagracia Alexander DPM, Podiatry /Foot and Ankle Surgery Unavailable Enrico Felton DO Unavailable [phone] Enrico Felton DO Primary Care Provider [phone] Cy Leonardo Unavailable Unavailable Enrico Felton DO Unavailable [phone] Rebecca Palumbo MD Unavailable [phone] Anders Ramachandran Unavailable Unavailable Magdalena Brice Unavailable Unavailable Maddie Mae Unavailable Unavailable No Ref-Primary, Physician Primary Care Provider Enrico Felton DO Primary Care Provider [phone] Aydee Mcgill RN Unavailable [phone] Encounter Details Date Type Department Care Team (Latest Contact Info) Description 01/21/2020 Historic Results Social History Tobacco Use Types Packs/Day Years [...] COVID-19? No / Unsure 01/21/2020 3:59 PM CORE INSERTER documented as of this encounter Plan of Treatment Not on file documented as of this encounter Goals Goal Patient Goal Type Associated Problems Recent Progress Patient-Stated? 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 per 09/01/16 nurse midwife/clinical instructor note; left foot tissue 10/08/16 10/11/2018 02/27/2019 Assessment Noted Time PHQ-9 Depression Total Score: 10 020 4:12 PM CORE INSERTER documented as of this encounter Care Teams Wet Room Worker Relationship Specialty Start Date End Date Madhuri Whitman APRN CNP PCP - General Nurse Practitioner - Family 09/04/16 08/23/20 [place] [address] [place] [address] PCP - General Family Medicine 08/24/20 01/23/22 No Ref-Primary, Physician PCP - General 02/20/22 06/29/22 [place] [address] [place] [address] PCP - General Family Medicine 06/30/22 [place] [address] [facility] [address] [place] [address] Podiatry 10/18/16 Craig Montenegro PA-C [address] [facility] [place] [address] Assigned PCP 09/28/19 01/31/20 Altagracia Alexander DPM, Podiatry/Foot and Ankle Surgery [address] [place] [address] Assigned Musculoskeletal Provider 01/09/20 10/30/20 [place] [address] [place] [address] Assigned PCP 02/01/20 08/28/20 Cy Leonardo Personal Advocate & Liaison (PAL) 08/26/20 10/13/20 [place] [address] [place] [address] Assigned PCP 08/29/20 Rebecca Palumbo MD [address] [place] [address] [address] [place], [place] [address] Assigned Neuroscience Provider 10/01/20 10/14/21 Anders Ramachandran Personal Advocate & Liaison (PAL) 10/14/20 07/07/21 Magdalena Brice Personal Advocate & Liaison (PAL) 11/14/21 12/27/21 Maddie aMe Personal Advocate & Liaison (PAL) Family Medicine 12/28/21 Aydee Mcgill RN RN Clinical Product Navigator Primary Care - CC 06/30/22 06/30/22 documented as of this encounter
--- OUTSIDE RECORDS SUMMARY | 2023-04-26 00:08 | XMS_ITS | Encounter Summary ---
Author Name Unknown Organization [facility] Address [address] [place] [address] Care Team Providers Care Insurance Legal Assistant Name Role Phone J CarlosMadhuri Cindy SABA [facility] Primary Care Prov ider Edu Crawford DPM Unavailable Altagracia Alexander DPM, Podiatry /Foot and Ankle Surgery Unavailable Enrico Felton DO Unavailable [phone] Enrico Felton DO Primary Care Provider [phone] Cy Leonardo Unavailable Unavailable Enrico Felton DO Unavailable [phone] Rebecca Palumbo MD Unavailable [phone] Anders Ramachandran Unavailable Unavailable Magdalena Brice Unavailable Unavailable Maddie Mae Unavailable Unavailable No Ref-Primary, Physician Primary Care Provider Enrico Felton DO Primary Care Provider [phone] Aydee Mcgill RN Unavailable [phone] Encounter Details Date Type Department Care Team (Late st Contact Info) Description 06/08/2020 [facility] [address] [place] [id number] [place] [address] [place] [address] Social History Tobacco Use Types [...] Author Financial Wellbeing General Yes Rosey Alexander, DOPE SPRAYER documented as of this encounter Visit Diagnoses Not on filedocumented in this encounter Additional Health Concerns Infection Onset Date Last Indicated Resolved Time 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 per 09/01/16 operating room scheduler note; left foot tissue 10/08/16 10/11/2018 02/27/2019 Assessment Noted Time PHQ-9 Depression Total Score: 10 020 4:12 PM BREASTFEEDING PROGRAM COORDINATOR documented as of this encounter Care Teams Insurance Legal Assistant Relationship Specialty Start Date End Date Madhuri Whitman APRN TRANSPORTATION ESCORT PCP - General Nurse Practitioner - Family 09/04/16 08/23/20 [place] [address] [place] [address] PCP - General Family Medicine 08/24/20 01/23/22 No Ref-Primary, Physician PCP - General 02/20/22 06/29/22 [place] [address] [place] [address] PCP - General Family Medicine 06/30/22 [place] [address] [facility] [address] [place] [address] Podiatry 10/18/16 Altagracia Alexander DPM, Podiatry/Foot and Ankle Surgery [address] [place] [address] [place] [address] Assigned Musculoskeletal Provider 01/09/20 10/30/20 [place] [address] [place] [address] Assigned PCP 02/01/20 08/28/20 Cy Leonardo Personal Advocate & Liaison (PAL) 08/26/20 10/13/20 [place] [address] [place] [address] Assigned PCP 08/29/20 Rebecca Palumbo MD [address] [place] [address] [address] [place], [place] [address] Assigned Neuroscience Provider 10/01/20 10/14/21 Anders Ramachandran Personal Advocate & Liaison (PAL) 10/14/20 07/07/21 Magdalena Brice Personal Advocate & Liaison (PAL) 11/14/21 12/27/21 Maddie Mae Personal Advocate & Liaison (PAL) Family Medicine 12/28/21 Aydee Mcgill, RN RN Clinical Product Navigator Primary Care - CC 06/30/22 06/30/22 documented as of this encounter
--- OUTSIDE RECORDS SUMMARY | 2023-04-26 00:08 | XMS_ITS | Encounter Summary ---
Author Name Unknown Organization [place] Address [address] [place] [address] Care Team Providers Care Lining Cementer Name Role Phone J CarlosMadhuri Cindy SABA [facility] Primary Care Prov ider Edu Crawford DPM Unavailable [phone] Altagracia Alexander DPM, Podiatry /Foot and Ankle Surgery Unavailable Enrico Felton DO Unavailable [phone] Enrico Felton DO Primary Care Provider [phone] Cy Leonardo Unavailable Unavailable Enrico Felton DO Unavailable [phone] Rebecca Palumbo MD Unavailable [phone] Anders Ramachandran Unavailable Unavailable Magdalena Brice Unavailable Unavailable Maddie Mae Unavailable Unavailable No Ref-Primary, Physician Primary Care Provider Enrico Felton DO Primary Care Provider [phone] Aydee Mcgill RN Unavailable [phone] Encounter Details Date Type Department Care Team (Late st Contact Info) Description 05/25/2020 [facility] [address] [address] Dianelys Smalls Social History Tobacco Use Types Packs/Day Years [...] Progress Patient-Stated? Author Financial Wellbeing General Yes Rsoey Alexander, FILL MANAGER documented as of this encounter Visit Diagnoses Not on filedocumented in this encounter Additional Health Concerns Infection Onset Date Last Indicated Resolved Time 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 per 09/01/16 [address] commissioner note; left foot tissue 10/08/16 10/11/2018 02/27/2019 Assessment Noted Time PHQ-9 Depression Total Score: 10 020 4:12 PM PRODUCTION SCHEDULER documented as of this encounter Care Teams Lining Cementer Relationship Specialty Start Date End Date Madhuri Whitman APRN CNP PCP - General Nurse Practitioner - Family 09/04/16 08/23/20 [place] [address] [place] [address] PCP - General Family Medicine 08/24/20 01/23/22 No Ref-Primary, Physician PCP - General 02/20/22 06/29/22 [place] [address] [place] [address] PCP - General Family Medicine 06/30/22 [place] [address] [facility] [address] [place] [address] Podiatry 10/18/16 Altagracia Alexander DPM, Podiatry/Foot and Ankle Surgery [address] [place] [address] Assigned Musculoskeletal Provider 01/09/20 10/30/20 [place] [address] [place] [address] Assigned PCP 02/01/20 08/28/20 Cy Leonardo Personal Advocate & Liaison (PAL) 08/26/20 10/13/20 [place] [address] [place] [address] Assigned PCP 08/29/20 Rebecca Palumbo MD [address] [place] [address] Assigned Neuroscience Provider 10/01/20 10/14/21 Anders Ramachandran Personal Advocate & Liaison (PAL) 10/14/20 07/07/21 Magdalena Brice Personal Advocate & Liaison (PAL) 11/14/21 12/27/21 Maddie Mae Personal Advocate & Liaison (PAL) Family Medicine 12/28/21 Aydee Mcgill RN ROQUE Clinical Product Navigator Primary Care - CC 06/30/22 06/30/22 documented as of this encounter
--- OUTSIDE RECORDS SUMMARY | 2023-04-26 00:09 | XMS_ITS | Encounter Summary ---
Author Name Unknown Organization [facility] Address [address] [place] [address] Care Team Providers Care Shovel Log Loader Operator Name Role Phone Madhuri Whitman ARTISTS' MODEL SUPERVISOR WIRE ROPE FABRICATION Primary Care Prov ider Edu Crawford DPM Unavailable [phone] Madhuri Whitman APRN SUPERVISOR WIRE ROPE FABRICATION Unavailable + Madhuri Whitman APRN SUPERVISOR WIRE ROPE FABRICATION Unavailable + Rosey Alexander INTEGRATION DIRECTOR Unavailable [phone] Rosey [place] INTEGRATION DIRECTOR Unavailable [phone] Craig Montenegro PA-C Unavailable [phone] Altagracia [place] DPM, Podiatry /Foot and Ankle Surgery Unavailable Enrico Felton DO Unavailable [phone] Enrico Felton DO Primary Care Provider [phone] Cy Leonardo Unavailable Unavailable Enrico Felton DO Unavailable [phone] Rebecca Palumbo MD Unavailable [phone] Anders Ramachandran Unavailable Unavailable Magdalena Brice Unavailable Unavailable Maddie Mae Unavailable Unavailable No Ref-Primary, Physician Primary Care Provider Enrico Felton DO Primary Care Provider [phone] Aydee Mcgill RN Unavailable [phone] Reason for Visit * Reason Onset Date Comments Medication Refill 11/20/2017 amLODIPine and lisinopril Encounter Details Date Type Department Care Team (Late st Contact Info) Description 11/17/[address], [address] [place] [address] Madhuri Whitman, ARTISTS' MODEL SUPERVISOR WIRE ROPE FABRICATION [address] [facility] [place] [address] Medication Refill (amLODIPine and lisinopril ) Social History Tobacco Use Types Packs/Day Years Used Date Smoking Tobacco: Every Day Cigarettes 1 Smokeless Tobacco: Never Alcohol Use Standard Drinks/Week Comments No 0 (1 standard drink = 0.6 oz pur e alcohol) Sex and Gender Information Value Date Recorded Sex Assigned at Not on file Gender Identity Not on file Sexual Orientation Not on file documented as of this encounter Miscellaneous Notes * Telephone Encounter - Kayleigh Foster RN - 11/20/2017 11:08 AM CDT Prescription approved per [facility] Refill Protocol. Kayleigh Foster RN * Telephone Encounter - Pastor Laureen - 11/20/2017 8:24 AM CDT Requested Prescriptions Pending Prescriptions Disp Refills ??? amLODIPine (NORVASC) 5 MG tablet [Pharmacy Med Name: AMLODIPINE BESYLATE 5MG TABS] 180 tablet 0 Last Written Prescription Date: 07/27/17 Last Fill Quantity: 180, # refills: 0 Last Office Visit: 07/27/2017 Future Office Visit: Sig: TAKE TWO TABLETS BY MOUTH EVERY DAY Calcium Channel Blockers Protocol Passed 11/17/2017 9:48 AM Passed - Blood pressure under 140/90 in past 12 months BP Readings from Last 3 Encounters: 07/27/17 120/78 05/22/17 96/58 05/03/17 130/80 Passed - Recent (12 mo) or future (30 days) visit within the authorizing provider's specialty Patient had office visit in the last 12 months or has a visit in the next 30 days with authorizing provider or within the authorizing provider's specialty. See Patient Info tab in inbasket, or Choose Columns in Meds & Orders section of the refill encounter. Passed - Patient is age 18 or older Passed - No active on record Passed - Normal serum creatinine on file in past 12 months Recent Labs Lab Test 05/03/17 0825 CR 0.80 Passed - No positive test in past 12 months ??? lisinopril (PRINIVIL/ZESTRIL) 20 MG tablet [Pharmacy Med Name: LISINOPRIL 20MG TABS] 180 tablet0 Last Written Prescription Date: 07/27/17 Last Fill Quantity: 180, # refills: 0 Last Office Visit: 07/27/2017 Future Office Visit: Sig: TAKE ONE TABLET BY MOUTH TWICE A DAY ZACKARY Inhibitors (Including Combos) Protocol Passed 11/17/2017 9:48 AM Passed - Blood pressure under 140/90 in past 12 months BP Readings from Last 3 Encounters: 07/27/17 120/78 05/22/17 96/58 05/03/17 130/80 Passed - Recent (12 mo) or future (30 days) visit within the authorizing provider's specialty Patient had office visit in the last 12 months or has a visit in the next 30 days with authorizing provider or within the authorizing provider's specialty. See Patient Info tab in inbasket, or Choose Columns in Meds & Orders section of the refill encounter. Passed - Patient is age 18 or older Passed - No active on record Passed - Normal serum creatinine on file in past 12 months Recent Labs Lab Test 05/03/17 0825 CR 0.80 Passed - Normal serum potassium on file in past 12 months Recent Labs Lab Test 05/03/17 0825 POTASSIUM 3.5 Passed - No positive test in past 12 months documented in this encounter Plan of Treatment Not on file documented as of this encounter Visit Diagnoses Diagnosis Hypertension goal BP (blood pressure) < 140/90 Unspecified essential hypertension documented in this encounter Additional Health Concerns Infection Onset Date Last Indicated Resolved Time 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 per 09/01/16 journey lineman note; left foot tissue 10/08/16 09/01/2016 09/01/2016 10/11/2018 7:49 AM C DT 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 per 09/01/16 journey lineman note; left foot tissue 10/08/16 10/11/2018 02/27/2019 Assessment Noted Time PHQ-9 Depression Total Score: 0 07/29/19 18 2:19 PM CDT documented as of this encounter Care Teams Shovel Log Loader Operator Relationship Specialty Start Date End Date Madhuri Whitman APRN SUPERVISOR WIRE ROPE FABRICATION PCP - General Nurse Practitioner - Family 09/04/16 08/23/20 Madhuri Whitman APRN SUPERVISOR WIRE ROPE FABRICATION [address] [place] [address] PCP - Assigned PCP 09/03/16 05/21/18 [place] [address] [place] [address] PCP - General Family Medicine 08/24/20 01/23/22 No Ref-Primary, Physician PCP - General 02/20/22 06/29/22 [place] [address] [place] [address] PCP - General Family Medicine 06/30/22 [place] [address] [facility] [address] [place], [place] [address] Podiatry 10/18/16 Madhuri Whitman APRN CNP [address] [address] Assigned PCP 09/03/16 09/27/19 Rosey [place], INTEGRATION DIRECTOR Clinic Golf Course Architect Primary Care - CC 09/27/18 9 Rosey [place], [facility] Lead Golf Course Architect Primary Care - CC 11/08/18 05/07/19 Craig Montenegro PA-C [address] [place] [address] Assigned PCP 09/28/19 01/31/20 Altagracia [place] DPM, Podiatry/Foot and Ankle Surgery [address] [facility] [address] [place] [address] Assigned Musculoskeletal Provider 01/09/20 10/30/20 [place] [address] [place] [address] Assigned PCP 02/01/20 08/28/20 Cy Leonardo Personal Advocate & Liaison (PAL) 08/26/20 10/13/20 [place] [address] [place] [address] Assigned PCP 08/29/20 Rebecca Palumbo MD [address] [place] [address] Assigned Neuroscience Provider 10/01/20 10/14/21 Anders Ramachandran Personal Advocate & Liaison (PAL) 10/14/20 07/07/21 Magdalena Brice Personal Advocate & Liaison (PAL) 11/14/21 12/27/21 Maddie Mae Personal Advocate & Liaison (PAL) Family Medicine 12/28/21 Aydee Mcgill RN RN Clinical Product Navigator Primary Care - CC 06/30/22 06/30/22 documented as of this encounter
--- OUTSIDE RECORDS SUMMARY | 2023-04-26 00:09 | XMS_ITS | Encounter Summary ---
Author Name Unknown Organization [facility] Address [address] [place] [address] Care Team Providers Care General Production Manager Name Role Phone Madhuri Whitman NASCAR DRIVER HYDRATE CONTROL TENDER Primary Care Prov ider Kaylen Aiken RN Unavailable [phone] Edu CrawfordM Unavailable [phone] Madhuri Whitman APRN HYDRATE CONTROL TENDER Unavailable + Madhuri Whitman APRN HYDRATE CONTROL TENDER Unavailable + Rosey [place] MILLSTONE CLEANER Unavailable [phone] Rosey [place] MILLSTONE CLEANER Unavailable [phone] Craig MontenegroC Unavailable [phone] Altagracia [place] DPM, Podiatry /Foot and Ankle Surgery Unavailable Enrico Felton DO Unavailable [phone] Enrico Felton DO Primary Care Provider [phone] Cy Leonardo Unavailable Unavailable Enrico Feltno DO Unavailable [phone] Rebecca Palumbo MD Unavailable [phone] Anders Ramachandran Unavailable Unavailable Magdalena Brice Unavailable Unavailable Maddie Mae Unavailable Unavailable No Ref-Primary, Physician Primary Care Provider Enrico Felton DO Primary Care Provider Aydee Mcgill RN Unavailable [phone] Encounter Details Date Type Department Care Team (Late st Contact Info) Description 06/22/2017 MyC Medical Advice [place] [address] [facility] [place], [address] [place] [address] Malou Vallejo Social History Tobacco Use Types Packs/Day Years [...] Isolation 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 facility per 09/01/16 geothermal sheet metal worker note; left foot tissue 10/08/16 09/01/2016 09/01/2016 10/11/2018 7:49 AM C DT 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 per 09/01/16 geothermal sheet metal worker note; left foot tissue 10/08/16 10/11/2018 02/27/2019 Assessment Noted Time PHQ-9 Depression Total Score: 4 02/22/20 17 1:32 PM SIEVE GRADER TENDER documented as of this encounter Care Teams General Production Manager Relationship Specialty Start Date End Date Madhuri Whitman APRN HYDRATE CONTROL TENDER PCP - General Nurse Practitioner - Family 09/04/16 08/23/20 Madhuri Whitman APRN HYDRATE CONTROL TENDER [address] [place] [address] PCP - Assigned PCP 09/03/16 05/21/18 [place] [address] [place] [address] PCP - General Family Medicine 08/24/20 01/23/22 No Ref-Primary, Physician PCP - General 02/20/22 06/29/22 [place] [address] [address] [place], [place] [address] PCP - General Family Medicine 06/30/22 Kaylen Aiken, ROQUE Clinic Sole Layer 10/18/16 Edu Crawford D[place] [address] [facility] [address] [place], [place] [address] Podiatry 10/18/16 Madhuri Whitman APRN HYDRATE CONTROL TENDER [address] [place] [address] Assigned PCP 09/03/16 09/27/19 Rosey [place] LSW Clinic Sole Layer Primary Care - CC 09/27/18 9 Rosey [place] LSW Lead Sole Layer Primary Care - CC 11/08/18 05/07/19 Craig Montenegro PA-C [address] [place] [address] Assigned PCP 09/28/19 01/31/20 Altagracia [place] DPM, Podiatry/Foot and Ankle Surgery [address] [facility] [address] [place], [place] [address] Assigned Musculoskeletal Provider 01/09/20 10/30/20 [place] [address] [place] [address] Assigned PCP 02/01/20 08/28/20 Cy Leonardo Personal Advocate & Liaison (PAL) 08/26/20 10/13/20 [place] [address] [place] [address] Assigned PCP 08/29/20 Rebecca Palumbo MD [address] [place] [address] [address] [place] [address] Assigned Neuroscience Provider 10/01/20 10/14/21 Anders Ramachandran Personal Advocate & Liaison (PAL) 10/14/20 07/07/21 Magdalena Brice Personal Advocate & Liaison (PAL) 11/14/21 12/27/21 Maddie Mae Personal Advocate & Liaison (PAL) Family Medicine 12/28/21 Aydee Mcgill RN ROQUE Clinical Product Navigator Primary Care - 06/30/22 06/30/22 [facility] 10/18/16 06/24/17 [facility] 07/27/17 08/14/17 documented as of this encounter
--- OUTSIDE RECORDS SUMMARY | 2023-04-26 00:09 | XMS_ITS | Encounter Summary ---
Author Name Unknown Organization [place] Address [address] [place] [address] Care Team Providers Care Wage Conciliator Name Role Phone Madhuri Whitman COUNTY AUDITOR STOVE FITTER Primary Care Prov ider Kaylen Aiken RN Unavailable [phone] Edu CrawfordM Unavailable [phone] Madhuri Whitman APRN STOVE FITTER Unavailable + Madhuri Whitman APRN STOVE FITTER Unavailable + Rosey [place] MUSHROOM FARMER Unavailable [phone] Rosey [place] MUSHROOM FARMER Unavailable [phone] Craig MontenegroC Unavailable [phone] Altagracia [place] DPM, Podiatry /Foot and Ankle Surgery Unavailable Enrico Felton DO Unavailable [phone] Enrico Felton DO Primary Care Provider [phone] Cy Leonardo Unavailable Unavailable Enrico Felton DO Unavailable [phone] Rebecca Palumbo MD Unavailable [phone] Anders Ramachandran Unavailable Unavailable Magdalena Brice Unavailable Unavailable Maddie Mae Unavailable Unavailable No Ref-Primary, Physician Primary Care Provider Enrico Felton DO Primary Care Provider Aydee Mcgill RN Unavailable [phone] Encounter Details Date Type Department Care Team (Late st Contact Info) Description 11/27/2016 MyC Medical Advice [address], [address] [place] [address] Malou Vallejo Social History Tobacco [...] Isolation 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 facility per 09/01/16 mailmaster note; left foot tissue 10/08/16 09/01/2016 09/01/2016 10/11/2018 7:49 AM C DT 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 per 09/01/16 mailmaster note; left foot tissue 10/08/16 10/11/2018 02/27/2019 documented as of this encounter Care Teams Wage Conciliator Relationship Specialty Start Date End Date Madhuri Whitman APRN STOVE FITTER PCP - General Nurse Practitioner - Family 09/04/16 08/23/20 Madhuri Whitman APRN STOVE FITTER [address] [place] [address] PCP - Assigned PCP 09/03/16 05/21/18 [place] [address] [place] [address] PCP - General Family Medicine 08/24/20 01/23/22 No Ref-Primary, Physician PCP - General 02/20/22 06/29/22 [place] [address] [place] [address] PCP - General Family Medicine 06/30/22 Kaylen Aiken, ROQUE Clinic Mail List Processor 10/18/16 Edu Crawford DPM [address] [facility] [address] [place], [place] [address] Podiatry 10/18/16 Madhuri Whitman APRN STOVE FITTER [address] [place] [address] Assigned PCP 09/03/16 09/27/19 Rosey [place], MUSHROOM FARMER Clinic Mail List Processor Primary Care - CC 09/27/18 9 Rosey [place], MUSHROOM FARMER Lead Mail List Processor Primary Care - CC 11/08/18 05/07/19 Craig Montenegro PA-C [address] [place] [address] Assigned PCP 09/28/19 01/31/20 Altagracia [place] DPM, Podiatry/Foot and Ankle Surgery [address] [place] [address] Assigned Musculoskeletal Provider 01/09/20 10/30/20 [place] [address] [place] [address] Assigned PCP 02/01/20 08/28/20 Cy Leonardo Personal Advocate & Liaison (PAL) 08/26/20 10/13/20 [place] [address] [place] [address] Assigned PCP 08/29/20 Rebecca Palumbo MD [address] [place] [address] [address] [place], [place] [address] Assigned Neuroscience Provider 10/01/20 10/14/21 Anders Ramachandran Personal Advocate & Liaison (PAL) 10/14/20 07/07/21 Magdalena Brice Personal Advocate & Liaison (PAL) 11/14/21 12/27/21 Maddie Mae Personal Advocate & Liaison (PAL) Family Medicine 12/28/21 Aydee Mcgill RN RN Clinical Product Navigator Primary Care - 06/30/22 06/30/22 [facility] 10/18/16 06/24/17 [facility] 07/27/17 08/14/17 documented as of this encounter
--- OUTSIDE RECORDS SUMMARY | 2023-04-26 00:09 | XMS_ITS | Encounter Summary ---
Author Name Unknown Organization [facility] Address [address] [place] [address] Care Team Providers Care Senior Shipping Clerk Name Role Phone Madhuri Whitman LUMBER TRIMMER CREAM DIPPER Primary Care Prov ider Edu Crawford DPM Unavailable [phone] Madhuri Whitman APRN CREAM DIPPER Unavailable + Madhuri Whitman APRN CREAM DIPPER Unavailable + Rosey [place] ENGINE HOSTLER Unavailable [phone] Rosey [place] ENGINE HOSTLER Unavailable [phone] Craig Montenegro PA-C Unavailable [phone] Altagracia [place] DPM, Podiatry /Foot and Ankle Surgery Unavailable Enrico Felton DO Unavailable [phone] Enrico Felton DO Primary Care Provider [phone] Cy Leonardo Unavailable Unavailable Enrico Felton DO Unavailable [phone] Rebecca Palumbo MD Unavailable [phone] Anders Ramachandran Unavailable Unavailable Magdalena Brice Unavailable Unavailable Maddie Mae Unavailable Unavailable No Ref-Primary, Physician Primary Care Provider Enrico Felton DO Primary Care Provider [phone] Nano Aydee K RN Unavailable [phone] Encounter Details Date Type Department Care Team (Late st Contact Info) Description 01/07/2018 [facility] [address] [id number] Carina Antoine, RN Social History Tobacco Use Types Packs/Day [...] Isolation 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 facility per 09/01/16 carbon cleaner note; left foot tissue 10/08/16 09/01/2016 09/01/2016 10/11/2018 7:49 AM C DT 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 per 09/01/16 carbon cleaner note; left foot tissue 10/08/16 10/11/2018 02/27/2019 Assessment Noted Time PHQ-9 Depression Total Score: 0 07/29/19 18 2:19 PM CDT documented as of this encounter Care Teams Senior Shipping Clerk Relationship Specialty Start Date End Date Madhuri Whitman APRN CREAM DIPPER PCP - General Nurse Practitioner - Family 09/04/16 08/23/20 Madhuri Whitman APRN CREAM DIPPER [address] [place] [address] PCP - Assigned PCP 09/03/16 05/21/18 [place] [address] [place] [address] PCP - General Family Medicine 08/24/20 01/23/22 No Ref-Primary, Physician PCP - General 02/20/22 06/29/22 [place] [address] [place] [address] PCP - General Family Medicine 06/30/22 [place] [address] [facility] [address] [place], [place] [address] Podiatry 10/18/16 Madhuri Whitman APRN CNP [address] [place] [address] Assigned PCP 09/03/16 09/27/19 Rosey [place] LSW Clinic Bar Assistant Primary Care - CC 09/27/18 9 Rosey [place] LSW Lead Bar Assistant Primary Care - CC 11/08/18 05/07/19 Craig Montenegro PA-C [address] [place], [place] [address] Assigned PCP 09/28/19 01/31/20 Altagracia [place] DPM, Podiatry/Foot and Ankle Surgery [address] [place], [place] [address] Assigned Musculoskeletal Provider 01/09/20 10/30/20 [place] [address] [place], [place] [address] Assigned PCP 02/01/20 08/28/20 Cy Leonardo Personal Advocate & Liaison (PAL) 08/26/20 10/13/20 [place] [address] [place] [address] Assigned PCP 08/29/20 Rebecca Palumbo MD [address] [place] [address] [address] [place], [place] [address] Assigned Neuroscience Provider 10/01/20 10/14/21 Anders Ramachandran Personal Advocate & Liaison (PAL) 10/14/20 07/07/21 Magdalena Brice Personal Advocate & Liaison (PAL) 11/14/21 12/27/21 Maddie Mae Personal Advocate & Liaison (PAL) Family Medicine 12/28/21 Aydee Mcgill RN RN Clinical Product Navigator Primary Care - CC 06/30/22 06/30/22 documented as of this encounter
--- OUTSIDE RECORDS SUMMARY | 2023-04-26 00:09 | XMS_ITS | Encounter Summary ---
Author Name Unknown Organization [place] Address [address] [place] [address] Care Team Providers Care Sewer Digger Name Role Phone Madhuri Whitman APRN CUSTOMER RETENTION REPRESENTATIVE Primary Care Prov ider Edu Crawford DPM Unavailable [phone] Madhuri Whitman APRN CUSTOMER RETENTION REPRESENTATIVE Unavailable + Rosey [place] ENVIRONMENTAL HEALTH SPECIALIST Unavailable Rosey [place] ENVIRONMENTAL HEALTH SPECIALIST Unavailable [phone] Craig Montenegro PA-C Unavailable [phone] Altagracia [place] DPM, Podiatry /Foot and Ankle Surgery Unavailable Enrico Felton DO Unavailable [phone] Enrico Felton DO Primary Care Provider [phone] Cy Leonardo Unavailable Unavailable Enrico Felton DO Unavailable [phone] Rebecca Palumbo MD Unavailable [phone] Anders Ramachandran Unavailable Unavailable Magdalena Brice Unavailable Unavailable Maddie Mae Unavailable Unavailable No Ref-Primary, Physician Primary Care Provider Enrico Felton DO Primary Care Provider [phone] Aydee Mcgill RN Unavailable [phone] Encounter Details Date Type Department Care Team (Late st Contact Info) Description 06/14/2018 MyC Medical Advice M [address], [address] [place] [address] Melissa Flores, CHANNEL CEMENTER INSOLE MACHINE Social History Tobacco Use Types Packs/Day Years Used Date Smoking Tobacco: Every Day Cigarettes 1 Smokeless Tobacco: Never Alcohol Use Standard Drinks/Week Comments No 0 (1 standard drink = 0.6 oz pur e alcohol) PHQ-2 Answer Date Recorded PHQ-2 Score 0 03/26/2018 Sex and Gender Information Value Date Recorded [...] Isolation 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 facility per 09/01/16 motel front desk attendant note; left foot tissue 10/08/16 09/01/2016 09/01/2016 10/11/2018 7:49 AM C DT 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 per 09/01/16 motel front desk attendant note; left foot tissue 10/08/16 10/11/2018 02/27/2019 Assessment Noted Time PHQ-9 Depression Total Score: 0 07/29/19 18 2:19 PM CDT documented as of this encounter Care Teams Sewer Digger Relationship Specialty Start Date End Date Madhuri Whitman APRN CUSTOMER RETENTION REPRESENTATIVE PCP - General Nurse Practitioner - Family 09/04/16 08/23/20 [place] [address] [place] [address] PCP - General Family Medicine 08/24/20 01/23/22 No Ref-Primary, Physician PCP - General 02/20/22 06/29/22 [place] [address] [place], [place] [address] PCP - General Family Medicine 06/30/22 [place] [address] [facility] [address] [place] [address] Podiatry 10/18/16 Madhuri Whitman APRN CUSTOMER RETENTION REPRESENTATIVE [address] [place] [address] Assigned PCP 09/03/16 09/27/19 Rosey [place], ENVIRONMENTAL HEALTH SPECIALIST Clinic Biofuels Technology Manager Primary Care - CC 09/27/18 9 Rosey [place], ENVIRONMENTAL HEALTH SPECIALIST Lead Biofuels Technology Manager Primary Care - CC 11/08/18 05/07/19 Craig Montenegro PA-C [address] [address] Assigned PCP 09/28/19 01/31/20 Altagracia [place] DPM, Podiatry/Foot and Ankle Surgery [address] [place] [address] Assigned Musculoskeletal Provider 01/09/20 10/30/20 [place] [address] [place] [address] Assigned PCP 02/01/20 08/28/20 Cy Leonardo Personal Advocate & Liaison (PAL) 08/26/20 10/13/20 [place] [address] [place] [address] Assigned PCP 08/29/20 Rebecca Palumbo MD [address] [place] [address] Assigned Neuroscience Provider 10/01/20 10/14/21 Anders Ramachandran Personal Advocate & Liaison (PAL) 10/14/20 07/07/21 Magdalena Brice Personal Advocate & Liaison (PAL) 11/14/21 12/27/21 Maddie Mae Personal Advocate & Liaison (PAL) Family Medicine 12/28/21 Aydee Mcgill RN RN Clinical Product Navigator Primary Care - CC 06/30/22 06/30/22 documented as of this encounter
--- OUTSIDE RECORDS SUMMARY | 2023-04-26 00:09 | XMS_ITS | Encounter Summary ---
Author Name Unknown Organization [facility] Address [address] [place] [address] Care Team Providers Care Patient Educator Name Role Phone Madhuri Whitman APRN ADVERTISING SPACE CLERK Primary Care Prov ider Edu Crawford DPM Unavailable [phone] Madhuri Whitman APRN ADVERTISING SPACE CLERK Unavailable + Rosey Alexander ASSISTANT PROFESSOR OF PSYCHOLOGY Unavailable Rosey Alexander ASSISTANT PROFESSOR OF PSYCHOLOGY Unavailable [phone] Craig Montenegro PA-C Unavailable [phone] Altagracia Alexander DPM, Podiatry /Foot and Ankle Surgery Unavailable Enrico Felton DO Unavailable [phone] Enrico Felton DO Primary Care Provider [phone] Cy Leonardo Unavailable Unavailable Enrico Felton DO Unavailable [phone] Rebecca Palumbo MD Unavailable [phone] Anders Ramachandran Unavailable Unavailable Magdalena Brice Unavailable Unavailable Maddie Mae Unavailable Unavailable No Ref-Primary, Physician Primary Care Provider Enrico Felton DO Primary Care Provider [phone] Aydee Mcgill RN Unavailable [phone] Reason for Visit * Reason Onset Date Comments Refill Request 10/30/2018 Wheelchair order Refill Request 11/15/2018 Encounter Details Date Type Department Care Team (Late st Contact Info) Description 10/30/[address], [address] [place] [address] Madhuri Whitman APRN ADVERTISING SPACE CLERK [address] [place], [place] [id number] Refill Request (Wheelchair order); Refill Request Social History Tobacco Use Types Packs/Day [...] 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 per 09/01/16 category specialist note; left foot tissue 10/08/16 10/11/2018 02/27/2019 Assessment Noted Time PHQ-9 Depression Total Score: 3 06/22/19 19 2:29 PM CDT documented as of this encounter Care Teams Patient Educator Relationship Specialty Start Date End Date Madhuri Whitman APRN ADVERTISING SPACE CLERK PCP - General Nurse Practitioner - Family 09/04/16 08/23/20 [place] [address] [place] [address] PCP - General Family Medicine 08/24/20 01/23/22 No Ref-Primary, Physician PCP - General 02/20/22 06/29/22 [place] [address] [place] [address] PCP - General Family Medicine 06/30/22 Edu Crawford DPM [address] [facility] [address] [place] [address] Podiatry 10/18/16 Mdahuri Whitman APRN ADVERTISING SPACE CLERK [address] [facility] [address] Assigned PCP 09/03/16 09/27/19 Rosey Alexander, ASSISTANT PROFESSOR OF PSYCHOLOGY Clinic Resolution Analyst Primary Care - CC 09/27/18 9 Rosey Alexander, ASSISTANT PROFESSOR OF PSYCHOLOGY Lead Resolution Analyst Primary Care - CC 11/08/18 05/07/19 Craig Montenegro PA-C [address] [place] [address] Assigned PCP 09/28/19 01/31/20 Altagracia Alexander DPM, Podiatry/Foot and Ankle Surgery [address] [place] [address] Assigned Musculoskeletal Provider 01/09/20 10/30/20 [place] [address] [place] [address] Assigned PCP 02/01/20 08/28/20 Cy Leonardo Personal Advocate & Liaison (PAL) 08/26/20 10/13/20 [place] [address] [place] [address] Assigned PCP 08/29/20 Rebecca Palumbo MD [address] [place] [address] [address] [place] [address] Assigned Neuroscience Provider 10/01/20 10/14/21 Anders Ramachandran Personal Advocate & Liaison (PAL) 10/14/20 07/07/21 Magdalena Brice Personal Advocate & Liaison (PAL) 11/14/21 12/27/21 Maddie Mae Personal Advocate & Liaison (PAL) Family Medicine 12/28/21 Aydee Mcgill RN RN Clinical Product Navigator Primary Care - CC 06/30/22 06/30/22 documented as of this encounter
--- OUTSIDE RECORDS SUMMARY | 2023-04-26 00:09 | XMS_ITS | Encounter Summary ---
Author Name Unknown Organization [facility] Address [address] [place] [address] Care Team Providers Care Sleeping Car Service Attendant Name Role Phone Madhuri Whitman PHOTO OPTICS TECHNICIAN MERCHANDISING SPECIALIST Primary Care Prov ider Edu Crawford DPM Unavailable [phone] Madhuri Whitman APRN MERCHANDISING SPECIALIST Unavailable + Madhuri Whitman APRN MERCHANDISING SPECIALIST Unavailable + Rosey Alexander PRODUCTION REPRODUCTION MANAGER Unavailable [phone] Rosey Alexander PRODUCTION REPRODUCTION MANAGER Unavailable [phone] Craig Montenegro PA-C Unavailable [phone] Altagracia Alexander DPM, Podiatry /Foot and Ankle Surgery Unavailable Enrico Felton DO Unavailable [phone] Enrico Felton DO Primary Care Provider [phone] Cy Leonardo Unavailable Unavailable Enrico Felton DO Unavailable [phone] Rebecca Palumbo MD Unavailable [phone] Anders Ramachandran Unavailable Unavailable Magdalena Brice Unavailable Unavailable Maddie Mae Unavailable Unavailable No Ref-Primary, Physician Primary Care Provider Enrico Felton DO Primary Care Provider [phone] Nano Aydee Eduin RN Unavailable Reason for Visit * Reason Onset Date Comments Medication Refill 03/04/2018 PARoxetine and omeprazole Encounter Details Date Type Department Care Team (Late st Contact Info) Description 03/02/[address], [address] [place] [address] Madhuri Whitman, PHOTO OPTICS TECHNICIAN MERCHANDISING SPECIALIST [address] [place] [address] Medication Refill (PARoxetine and omeprazole ) Social History Tobacco Use Types Packs/Day [...] encounter Miscellaneous Notes * Telephone Encounter - Alexandrea Lacy MA - 03/06/2018 3:22 PM CST Unable to reach via phone, sent letter. Alexandrea Lacy MA K GUARD * Telephone Encounter - Carol Dickerson RN - 03/05/2018 2:49 PM CST Please call pt to schedule a med check with labs Medication is being filled for 1 time refill only due to: Patient needs to be seen because needs OV. Carol Dickerson RN, BSN K GUARD * Telephone Encounter - Laureen Baumann - 03/04/2018 8:46 AM CST Images from the original note were not included. Requested Prescriptions Pending Prescriptions Disp Refills ??? PARoxetine (PAXIL) 20 MG tablet [Pharmacy Med Name: PAROXETINE HCL 20MG TABS] 90 tablet 5 Last Written Prescription Date: 02/21/17 Last Fill Quantity: 90, # refills: 5 Last Office Visit: 07/27/2017 Strong Return in about 3 months (around 10/27/2017) for blood pressure, cholesterol, fasting labs. Future Office Visit: Sig: TAKE ONE TABLET BY MOUTH THREE TIMES A DAY SSRIs Protocol Failed - 03/02/2018 1:50 PM Failed - PHQ-9 score less than 5 in past 6 months PHQ-9 SCORE 04/10/2013 02/21/2017 07/27/2017 PHQ-9 Total Score 12 - - PHQ-9 Total Score - 4 0 JEEVAN-7 SCORE 09/12/2012 02/21/2017 07/27/2017 Total Score 12 - - Total Score - 6 0 Failed - Recent (6 mo) or future (30 days) visit within the authorizing provider's specialty Patient had office visit in the last 6 months or has a visit in the next 30 days with authorizing provider or within the authorizing provider's specialty. See Patient Info tab in inbasket, or Choose Columns in Meds & Orders section of the refill encounter. Passed - Patient is age 18 or older Passed - No active on record Passed - No positive test in last 12 months ??? omeprazole (PRILOSEC) [address] capsule [Pharmacy Med Name: OMEPRAZOLE 40MG CPDR] 180 capsule 3 Last Written Prescription Date: 04/24/17 Last Fill Quantity: 180, # refills: 3 Last Office Visit: 07/27/2017 Future Office Visit: Sig: TAKE ONE CAPSULE BY MOUTH TWICE A DAY PPI Protocol Passed - 03/02/2018 1:50 PM Passed - Not on Clopidogrel (unless Pantoprazole ordered) Passed - No diagnosis of osteoporosis on record Passed - Recent (12 mo) or future [...] 18 or older Passed - No active pregnacy on record Passed - No positive test in past 12 months K GUARD documented in this encounter Plan of Treatment Not on file documented as of this encounter Visit Diagnoses Diagnosis Episode of recurrent major depressive disorder, unspecified depression episode severity (H24) Gastroesophageal reflux disease, esophagitis presence not specified documented in this encounter Additional Health Concerns Infection Onset Date Last Indicated Resolved Time 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 per 09/01/16 knocker off note; left foot tissue 10/08/16 09/01/2016 09/01/2016 10/11/2018 7:49 AM C DT 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 per 09/01/16 knocker off note; left foot tissue 10/08/16 10/11/2018 02/27/2019 Assessment Noted Time PHQ-9 Depression Total Score: 0 07/29/19 18 2:19 PM CDT documented as of this encounter Care Teams Sleeping Car Service Attendant Relationship Specialty Start Date End Date Madhuri Whitman APRN MERCHANDISING SPECIALIST PCP - General Nurse Practitioner - Family 09/04/16 08/23/20 Madhuri Whitman APRN MERCHANDISING SPECIALIST [address] [place] [address] PCP - Assigned PCP 09/03/16 05/21/18 [place] [address] [place] [address] PCP - General Family Medicine 08/24/20 01/23/22 No Ref-Primary, Physician PCP - General 02/20/22 06/29/22 [place] [address] [place] [address] PCP - General Family Medicine 06/30/22 Edu Crawford DPM [address] [facility] [address] [place], [place] [address] Podiatry 10/18/16 Madhuri Whitman APRN MERCHANDISING SPECIALIST [address] [place] [address] Assigned PCP 09/03/16 09/27/19 Rosey Alexander, PRODUCTION REPRODUCTION MANAGER Clinic Lamination Operator Primary Care - CC 09/27/18 9 Rosey Alexander, [facility] Lead Lamination Operator Primary Care - CC 11/08/18 05/07/19 Craig Montenegro PA-C [address] [place] [address] Assigned PCP 09/28/19 01/31/20 Altagracia Alexander DPM, Podiatry/Foot and Ankle Surgery [address] [facility] [address] [place] [address] Assigned Musculoskeletal Provider 01/09/20 10/30/20 [place] [address] [place] [address] Assigned PCP 02/01/20 08/28/20 Cy Leonardo Personal Advocate & Liaison (PAL) 08/26/20 10/13/20 [place] [address] [place] [address] Assigned PCP 08/29/20 Rebecca Palumbo MD [address] [place] [address] [address] [place], [place] [address] Assigned Neuroscience Provider 10/01/20 10/14/21 Anders Ramachandran Personal Advocate & Liaison (PAL) 10/14/20 07/07/21 Magdalena Brice Personal Advocate & Liaison (PAL) 11/14/21 12/27/21 Maddie Mae Personal Advocate & Liaison (PAL) Family Medicine 12/28/21 Aydee Mcgill RN RN Clinical Product Navigator Primary Care - CC 06/30/22 06/30/22 documented as of this encounter
--- OUTSIDE RECORDS SUMMARY | 2023-04-26 00:09 | XMS_ITS | Encounter Summary ---
Author Name Unknown Organization [facility] Address [address] [place] [address] Care Team Providers Care Ladies' Locker Room Attendant Name Role Phone Madhuri Whitman RESPIRATORY ASSISTANT CONCRETE SPREADER Primary Care Prov ider Edu Crawford DPM Unavailable [phone] Madhuri Whitman APRN CONCRETE SPREADER Unavailable + Rosey Alexander METAL FITTERS AND MACHINISTS Unavailable [phone] Craig MontenegroC Unavailable Altagracia Alexander DPM, Podiatry /Foot and Ankle Surgery Unavailable Enrico Felton DO Unavailable [phone] Enrico Felton DO Primary Care Provider [phone] Cy Leonardo Unavailable Unavailable Enrico Felton DO Unavailable [phone] Rebecca Palumbo MD Unavailable [phone] Anders Ramachandran Unavailable Unavailable Magdalena Brice Unavailable Unavailable Maddie Mae Unavailable Unavailable No Ref-Primary, Physician Primary Care Provider Enrico Felton DO Primary Care Provider [phone] Aydee Mcgill RN Unavailable [phone] Reason for Visit * Reason Onset Date Comments Medication Refill 12/09/2018 PARoxetine (PA XIL) 20 MG tablet Encounter Details Date Type Department Care Team (Late st Contact Info) Description 12/09/[address], [address] [place] [address] J Carlos Madhuri White, RESPIRATORY ASSISTANT CONCRETE SPREADER [address] [place], [place] [id number] Medication Refill (PARoxetine (PAXIL) 20 MG tablet) Social History Tobacco Use [...] Telephone Encounter - Kayleigh Foster RN - 12/10/2018 3:57 PM CDT Patient due for an appointment. No showed her last appt on 12/04/2018 and her podiatry follow up on 12/04/2018. Patient now lives in [place] with transportation issues. States active on [facility] but has never signed in. Rosey Alexander, ENDER will be looking into other options for patient as well. Please advise further? Kayleigh Foster RN * Telephone Encounter - Laureen Baumann - 12/09/2018 9:36 AM CDT Images from the original note were not included. Requested Prescriptions Pending Prescriptions Disp Refills ??? PARoxetine (PAXIL) 20 MG tablet [Pharmacy Med Name: PAROXETINE HCL 20MG TABS] 90 tablet 3 Sig: TAKE ONE TABLET BY MOUTH THREE TIMES A DAY Last Written Prescription Date: 08/30/18 Last Fill Quantity: 90, # refills: 3 Last Office Visit: 09/24/2018 Strong Return in about 4 weeks (around 10/22/2018). Future Office Visit: SSRIs Protocol Passed - 12/09/2018 8:28 AM Passed - PHQ-9 score less than 5 in past 6 months PHQ-9 SCORE 02/21/2017 07/27/2017 06/21/2018 PHQ-9 Total Score - - - PHQ-9 Total Score 4 0 3 JEEVAN-7 SCORE 02/21/2017 07/27/2017 06/21/2018 Total Score - - - Total Score 6 0 0 Passed - Medication is active on med list Passed - Patient is age 18 or older Passed - No active on record Passed - No positive test in last 12 months Passed - Recent (6 mo) or future (30 days) visit within the authorizing provider's specialty Patient had office visit in the last 6 months or has a visit in the next 30 days with authorizing provider or within the authorizing provider's specialty. See Patient Info tab in inbasket, or Choose Columns in Meds & Orders section of the refill encounter. documented in this encounter Plan of Treatment Not on file documented as of this encounter Goals Goal Patient Goal Type Associated Problems Recent Progress Patient-Stated? Author Financial Wellbeing General Yes Rosey Alexander, METAL FITTERS AND MACHINISTS documented as of this encounter Visit Diagnoses Diagnosis Episode of recurrent major depressive disorder, unspecified depression episode severity (H24) documented in this encounter Additional Health Concerns Infection Onset Date Last Indicated Resolved Time 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 per 09/01/16 gang rider note; left foot tissue 10/08/16 10/11/2018 02/27/2019 Assessment Noted Time PHQ-9 Depression Total Score: 3 06/22/19 19 2:29 PM CDT documented as of this encounter Care Teams Ladies' Locker Room Attendant Relationship Specialty Start Date End Date Madhuri Whitman APRN CONCRETE SPREADER PCP - General Nurse Practitioner - Family 09/04/16 08/23/20 [place] [address] [place] [address] PCP - General Family Medicine 08/24/20 01/23/22 No Ref-Primary, Physician PCP - General 02/20/22 06/29/22 [place] [address] [place] [address] PCP - General Family Medicine 06/30/22 [place] [address] [facility] [address] [place] [address] Podiatry 10/18/16 Madhuri Whitman APRN CNP [address] [place] [id number] Assigned PCP 09/03/16 09/27/19 Rosey Alexander, METAL FITTERS AND MACHINISTS Lead Wrapper Leaf Inspector Primary Care - CC 11/08/18 05/07/19 Craig Montenegro PA-C [address] [place] [address] Assigned PCP 09/28/19 01/31/20 Altagracia Alexander DPM, Podiatry/Foot and Ankle Surgery [address] [facility] [address] [place] [address] Assigned Musculoskeletal Provider 01/09/20 10/30/20 [place] [address] [place] [address] Assigned PCP 02/01/20 08/28/20 Cy Leonardo Personal Advocate & Liaison (PAL) 08/26/20 10/13/20 [place] [address] [place] [address] Assigned PCP 08/29/20 Rebecca Palumbo MD [address] [place] [address] [address] [place] [address] Assigned Neuroscience Provider 10/01/20 10/14/21 Anders Ramachandran Personal Advocate & Liaison (PAL) 10/14/20 07/07/21 Magdalena Brice Personal Advocate & Liaison (PAL) 11/14/21 12/27/21 Maddie Mae Personal Advocate & Liaison (PAL) Family Medicine 12/28/21 Aydee Mcgill, RN RN Clinical Product Navigator Primary Care - CC 06/30/22 06/30/22 documented as of this encounter
--- OUTSIDE RECORDS SUMMARY | 2023-04-26 00:09 | XMS_ITS | Encounter Summary ---
Author Name Unknown Organization [facility] Address [address] [place] [address] Care Team Providers Care Hardwood Floor Layer Name Role Phone Madhuri Whitman BATCH ATTENDANT CALIBRATION CHECKER Primary Care Prov ider Kaylen Aiken RN Unavailable [phone] Edu CrawfordM Unavailable [phone] Madhuri Whitman APRN CALIBRATION CHECKER Unavailable + Madhuri Whitman APRN CALIBRATION CHECKER Unavailable + Rosey Alexander TERMINAL BLOCK ASSEMBLER Unavailable [phone] Rosey Alexander TERMINAL BLOCK ASSEMBLER Unavailable [phone] Craig MontenegroC Unavailable [phone] Altagracia Alexander DPM, Podiatry /Foot and Ankle Surgery Unavailable Enrico Felton DO Unavailable [phone] Enrico Felton DO Primary Care Provider [phone] Cy Leonardo Unavailable Unavailable Enrico Felton DO Unavailable [phone] Rebecca Palumbo MD Unavailable [phone] Anders Ramachandran Unavailable Unavailable Magdalena Brice Unavailable Unavailable Maddie Mae Unavailable Unavailable No Ref-Primary, Physician Primary Care Provider Jose Francisco Enrico SCHULTE Primary Care Provider Aydee Mcgill RN Unavailable [phone] Reason for Visit * Reason Onset Date Comments Medication Refill 01/23/2017 PARoxetine (PA XIL) 20 MG tablet Encounter Details Date Type Department Care Team (Late st Contact Info) Description 01/22/[address], [address] [place] [address] Madhuri Whitman APRN CNP [address] [place] [address] Medication Refill (PARoxetine (PAXIL) 20 MG tablet) [...] Telephone Encounter - Kayleigh Foster RN - 01/26/2017 3:10 PM CST LMOM for patient to call clinic back. Kayleigh Foster RN ALES SENIOR SPECIALIST * Telephone Encounter - Madhuri Whitman APRN CNP - 01/26/2017 1:26 PM PRESALES SENIOR SPECIALIST Please call patient and update her PHQ9. Refilled x 1 month as I have not seen her for this in the past. Will need to either follow up with me in the next month for future refills or she could see ifher pain management provider is willing to prescribe for her. Madhuri Whitman CNP ALES SENIOR SPECIALIST * Telephone Encounter - Kayleigh Foster RN - 01/26/2017 11:15 AM CST Spoke with patient. Not very happy on the phone. Stating she just needs her fucking Paxil refilled. That she has been out for 3 days. Informed her of the message and she said (along with several other choice words) that she has no car and cannot come out for an appointment. She states that she is currently taking Paxil 20mg 1 tablet 3 times daily. She states that she see's the pain clinic in [place] every 3 weeks and I asked that she schedule an appointment here when she goes to that appointment and she said there is no way her friend that drives her will sit in another doctors office and wait for her. Patient requesting an rx refill. Kayleigh Foster RN ALES SENIOR SPECIALIST * Telephone Encounter - Gosia John RN - 01/25/2017 2:49 PM PRESALES SENIOR SPECIALIST LM on VM to call back. Gosia Pastrana RN, BSN, PHN Antonio Doshi RN ALES SENIOR SPECIALIST * Telephone Encounter - Madhuri Whitman APRN CNP - 01/25/2017 1:30 PM PRESALES SENIOR SPECIALIST I have never seen her for this. Looks like it was last refilled while in patient and she is taking TID not BID?? Please call and verify dose. I will refill x 1 month and she needs to be seen in clinic for further refills. Madhuri Whitman CNP ALES SENIOR SPECIALIST * Telephone Encounter - Kayleigh Foster RN - 01/23/2017 3:22 PM CST PHQ-9 SCORE 11/12/2012 11/28/2012 04/10/2013 Total Score 23 26 12 Routing refill request to provider for review/approval because: PHQ-9 > 4. Kayleigh Foster RN ALES SENIOR SPECIALIST * Telephone Encounter - Laureen Baumann - 01/23/2017 2:07 PM CST PARoxetine (PAXIL) 20 MG tablet (Historical) Sig: Take 20 mg by mouth 3 times daily Last Written Prescription Date: Unknown Last Fill Quantity: Unknown, # refills: Unknown Last Office Visit with G, P or [facility] prescribing provider: 09/08/2016 Future Office visit: Paxil was increased in the hospital 10/06/16. Routing refill request to provider for review/approval because: Medication is reported/historical DOMINGO Katz January 23, 2017 2:10 PM ALES SENIOR SPECIALIST documented in this encounter Plan of Treatment Not on file documented as of this encounter Visit Diagnoses Diagnosis Single current episode of major depressive disorder, unspecified depression episode severity documented in this encounter Additional Health Concerns Infection Onset Date Last Indicated Resolved Time 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 per 09/01/16 plating tank operator apprentice note; left foot tissue 10/08/16 09/01/2016 09/01/2016 10/11/2018 7:49 AM C DT 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 per 09/01/16 plating tank operator apprentice note; left foot tissue 10/08/16 10/11/2018 02/27/2019 documented as of this encounter Care Teams Hardwood Floor Layer Relationship Specialty Start Date End Date Madhuri Whitman APRN CALIBRATION CHECKER PCP - General Nurse Practitioner - Family 09/04/16 08/23/20 Madhuri Whitman APRN CALIBRATION CHECKER [address] [place] [address] PCP - Assigned PCP 09/03/16 05/21/18 [place] [address] [place] [address] PCP - General Family Medicine 08/24/20 01/23/22 No Ref-Primary, Physician PCP - General 02/20/22 06/29/22 [place] [address] [place] [address] PCP - General Family Medicine 06/30/22 Kaylen Aiken, RN Clinic Exhibition Specialist 10/18/16 Edu Crawford DPM [address] [facility] [address] [place], [place] [address] Podiatry 10/18/16 Madhuri Whitman APRN CNP [address] [place] [address] Assigned PCP 09/03/16 09/27/19 Rosey Alexander LSW Clinic Exhibition Specialist Primary Care - CC 09/27/18 9 Rosey Alexander LSW Lead Exhibition Specialist Primary Care - CC 11/08/18 05/07/19 Craig Montenegro PA-C [address] [place] [address] Assigned PCP 09/28/19 01/31/20 Altagracia Alexander DPM, Podiatry/Foot and Ankle Surgery [address] [facility] [address] [place], [place] [address] Assigned Musculoskeletal Provider 01/09/20 10/30/20 [place] [address] [place] [address] Assigned PCP 02/01/20 08/28/20 Cy Leonardo Personal Advocate & Liaison (PAL) 08/26/20 10/13/20 [place] [address] [place] [address] Assigned PCP 08/29/20 Rebecca Palumbo MD [address] [place] [address] [address] [place], [place] [address] Assigned Neuroscience Provider 10/01/20 10/14/21 Anders Ramachandran Personal Advocate & Liaison (PAL) 10/14/20 07/07/21 Magdalena Brice Personal Advocate & Liaison (PAL) 11/14/21 12/27/21 Maddie Mae Personal Advocate & Liaison (PAL) Family Medicine 12/28/21 Aydee Mcgill RN RN Clinical Product Navigator Primary Care - 06/30/22 06/30/22 [facility] 10/18/16 06/24/17 [facility] 07/27/17 08/14/17 documented as of this encounter
--- OUTSIDE RECORDS SUMMARY | 2023-04-26 00:10 | XMS_ITS | Encounter Summary ---
Author Name Unknown Organization [place] Address [address] [place] [address] Care Team Providers Care Bleach Machine Operator Name Role Phone Dwayne Draper MD Primary Care Provider + Hawa Wasserman MD Primary Care Provider Unavailabl e Madhuri Whitman DOOR FITTER FIXED INCOME DIRECTOR Primary Care Prov ider Kaylen Aiken RN Unavailable [phone] Edu Crawford DPM Unavailable [phone] Madhuri Whitman DOOR FITTER FIXED INCOME DIRECTOR Unavailable + Madhuri Whitman DOOR FITTER FIXED INCOME DIRECTOR Unavailable + Rosey Alexander STRIP CUTTING MACHINE OPERATOR Unavailable [phone] Rosey Alexander STRIP CUTTING MACHINE OPERATOR Unavailable [phone] Craig Montenegro PA-C Unavailable +[phone] Altagracia Alexander DPM, Podiatry /Foot and Ankle Surgery Unavailable Enrico Felton DO Unavailable [phone] Enrico Felton DO Primary Care Provider [phone] Cy Leonardo Unavailable Unavailable Enrico Felton DO Unavailable [phone] Rebecca Palumbo MD Unavailable [phone] Anders Ramachandran Unavailable Unavailable Magdalena Brice M Unavailable Unavailable JesusMaddie bryant Unavailable Unavailable No Ref-Primary, Physician Primary Care Provider Enrico Felton DO Primary Care Provider [phone] Aydee Mcgill RN Unavailable [phone] Encounter Details Date Type Department Care Team (Late st Contact Info) Description 01/16/2012 [facility] [address], [address] [place] [address] [facility] Social History Tobacco Use Types Packs/Day Years Used Date Smoking Tobacco: Every Day Smokeless Tobacco: Never Alcohol Use Standard Drinks/Week [...] Isolation 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 facility per 09/01/16 educational coordinator note; left foot tissue 10/08/16 09/01/2016 09/01/2016 10/11/2018 7:49 AM C DT 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 per 09/01/16 educational coordinator note; left foot tissue 10/08/16 10/11/2018 02/27/2019 documented as of this encounter Care Teams Bleach Machine Operator Relationship Specialty Start Date End Date Dwayne Draper MD PCP - General Family Practice 07/11/11 05/28/14 Hawa Wasserman MD PCP - General 06/29/15 09/03/16 Madhuri Whitman APRN FIXED INCOME DIRECTOR PCP - General Nurse Practitioner - Family 09/04/16 08/23/20 Madhuri Whitman APRN FIXED INCOME DIRECTOR [address] [place] [address] PCP - Assigned PCP 09/03/16 05/21/18 [place] [address] [place] [address] PCP - General Family Medicine 08/24/20 01/23/22 No Ref-Primary, Physician PCP - General 02/20/22 06/29/22 [place] [address] [place] [address] PCP - General Family Medicine 06/30/22 Kaylen Aiken, ROQUE Clinic Primary Mill Roller 10/18/16 Edu Crawford DPM [address] [facility] [address] [place] [address] Podiatry 10/18/16 Madhuri Whitman APRN CNP [address] [place] [address] Assigned PCP 09/03/16 09/27/19 Rosey Alexander LSW Clinic Primary Mill Roller Primary Care - CC 09/27/18 9 Rosey Alexander LSW Lead Primary Mill Roller Primary Care - CC 11/08/18 05/07/19 Craig Montenegro PA-C [address] [place] [address] Assigned PCP 09/28/19 01/31/20 Altagracia Alexander, DPM, Podiatry/Foot and Ankle Surgery [address] [address] Assigned Musculoskeletal Provider 01/09/20 10/30/20 [place] [address] [facility] [place] [address] Assigned PCP 02/01/20 08/28/20 Cy Leonardo Personal Advocate & Liaison (PAL) 08/26/20 10/13/20 [place] [address] [place] [address] Assigned PCP 08/29/20 Rebecca Palumbo MD [address] [place] [address] [address] [place], [place] 652[address] Assigned Neuroscience Provider 10/01/20 10/14/21 Anders Ramachandran Personal Advocate & Liaison (PAL) 10/14/20 07/07/21 Magdalena Brice Personal Advocate & Liaison (PAL) 11/14/21 12/27/21 Maddie Mae Personal Advocate & Liaison (PAL) Family Medicine 12/28/21 Aydee Mcgill, RN RN Clinical Product Navigator Primary Care - CC 06/30/22 06/30/22 [facility] 10/18/16 06/24/17 [facility] 07/27/17 08/14/17 documented as of this encounter
--- OUTSIDE RECORDS SUMMARY | 2023-04-26 00:10 | XMS_ITS | Encounter Summary ---
Author Name Unknown Organization [place] Address [address] [place] [address] Care Team Providers Care Lever Tender Name Role Phone Pramod Sweet MD Primary Care Provider + Hawa Wasserman MD Primary Care Provider Unavailabl e Madhuri Whitman COMPENSATION/BENEFITS SPECIALIST STONE SETTER METAL OPTICAL FRAMES Primary Care Prov ider Kaylen Aiken RN Unavailable [phone] Edu Crawford DPM Unavailable [phone] Madhuri Whitman COMPENSATION/BENEFITS SPECIALIST STONE SETTER METAL OPTICAL FRAMES Unavailable + Madhuri Whitman COMPENSATION/BENEFITS SPECIALIST STONE SETTER METAL OPTICAL FRAMES Unavailable + Rosey Alexander VICE PRESIDENT OF ENGINEERING Unavailable [phone] Rosey Alexander VICE PRESIDENT OF ENGINEERING Unavailable [phone] Craig Montenegro PA-C Unavailable +[phone] Altagracia Alexander DPM, Podiatry /Foot and Ankle Surgery Unavailable Enrico Felton DO Unavailable [phone] Enrico Felton DO Primary Care Provider [phone] Cy Leonardo Unavailable Unavailable Enrico Felton DO Unavailable [phone] Rebecca Palumbo MD Unavailable [phone] Anders Ramachandran Unavailable Unavailable Magdalena Brice Unavailable Unavailable Tu Maddie Unavailable Unavailable No Ref-Primary, Physician Primary Care Provider Enrico Felton DO Primary Care Provider [phone] Aydee Mcgill RN Unavailable [phone] Encounter Details Date Type Department Care Team (Late st Contact Info) Description 09/13/2011 Office Visit-[facility] [address] [facility] [address] [place] [address] Kuldeep Herndon MD [address] [facility] [address] [place] [address] Social History Tobacco Use Types Packs/Day Years Used Date Smoking Tobacco: Every Day Smokeless Tobacco: Never Alcohol Use Standard Drinks/Week Comments No 0 (1 standard drink = 0.6 oz pur e alcohol) Sex and Gender Information Value Date Recorded Sex Assigned at Not on file Gender Identity Not on file Sexual Orientation Not on file documented as of this encounter Progress Notes * Kuldeep Herndon MD - 09/13/2011 2:17 PM CDT Progress Note Created by: Kuldeep Herndon M.D. DATE: 09/07/2011 JATINDER DE LA PAZ DATE OF : 1960 AGE: [age] years old Referring Physician: PRAMOD SWEET Referring Clinic: CURRENT DIAGNOSES 1. - Bundle branch block-left, 426.3 ALLERGIES naproxen MEDICATIONS (prior to changes made today) 1. atenolol 50 mg Tablet, 1 p.o. daily 2. Klonopin 1 mg Tablet, 1 p.o. twice daily 3. lovastatin 20 mg Tablet, 1 p.o. daily 4. methadone 10 mg Tablet, 2 p.o. twice daily 5. Pinson 3-6-9 1,200 mg Capsule, 1 p.o. daily 6. omeprazole 20 mg Tablet, Delayed Release (E.C.), 1 p.o. daily 7. oxycodone 10 mg Tablet, 2 p.o. three times daily 8. Paxil 20 mg Tablet, 1 p.o. three times daily CHIEF COMPLAINTS HISTORY OF PRESENT ILLNESS It was my pleasure to see your patient, Jatinder De La Paz, in consultation for a left bundle branch block. This patient incidentally had an EKG done recently, which showed a typical left bundle branch block pattern. The patient is entirely asymptomatic. She has no symptoms of syncope, near syncope, or dizziness. She has no chest pain, chest pressure, or undue shortness of breath. She has no systemic diseases that are obvious that could be causing this such as sarcoidosis or amyloidosis. She does not have a history of cardiomyopathy nor does she have a history of aortic valve disease. She has had no recent history of a tick bite to suggest that she had developed Lyme disease, which of course cancause significant conduction system disease. She does take atenolol 50 mg p.o q.day for hypertension. This is unlikely to be causing her left bundle branch block. She has no symptoms of congestive heart failure. PAST HISTORY Past Medical Illnesses: chronic back and neck pain, DJD, spinal stenosis, depression Past Cardiac Illnesses: conduction disorder-LBBB Surgeries/Procedures - General: carpal tunnel surgery, back surgery x 2 LVEF not documented FAMILY HISTORY: Father - [place]; Brother 1 - CVA, unknown type; Uncle(P) - CVA, unknown type; CARDIAC RISK FACTORS Tobacco Abuse: currently smoking; Family History of Heart Disease: positive male<GT>55 y/o; Hyperlipidemia: positive, controlled; Hypertension: positive, well controlled; Diabetes Mellitus: negative; Prior History of Heart Disease: negative; Obesity:BMI<GT>30 (Obesity); Sedentary Life Style:positive; Age:negative; Menopausal:negative ; LDL Goal <LT> 130 SOCIAL HISTORY Alcohol Use - does not use alcohol; Smoking - smokes,; Diet - regular diet; Exercise - some exercise and as much as she can; Seat Belt Use - always; Occupation - not working; Residence - lives in [place] year round; REVIEW OF SYSTEMS GENERAL feels well, no change in exercise tolerance. INTEGUMENTARY denies any change in hair or nails, rashes, or skin lesions. EYES reading glasses only EARS, NOSE, THROAT, MOUTH denies any hearing loss, epistaxis, hoarseness or difficulty speaking. RESPIRATORY denies dyspnea, cough, wheezing or hemoptysis. CARDIOVASCULAR negative for palpitations, chest pain, orthopnea, PND, peripheral edema, syncope or claudication. ABDOMINAL denies ulcer disease, hematochezia or melena. MUSCULOSKELETAL chronic back pain, history of generalized arthritis NEUROLOGICAL headaches, from neck discomfort PSYCHIATRIC anxiety, depression, controlled with meds ENDOCRINE denies any history of thyroid disease or diabetes mellitus. HEMATOLOGICAL/IMMUNOLOGIC denies any food allergies, seasonal allergies, bleeding disorders. PHYSICAL EXAMINATION VITAL SIGNS: Blood Pressure: 122/80Sitting, Right arm, large cuff Pulse- 62.00/min. Weight- 277.50 lbs. Height- 69 BMI Measurement: 41 CONSTITUTIONAL well developed, well nourished, in no acute distress, severely obese SKIN warm and dry to touch, no apparent skin lesions or masses noted NECK carotid pulses are full and equal bilaterally, JVP normal, no carotid bruit, no thyromegaly CHEST normal symmetry, no tenderness to palpation, normal respiratory excursion, no intercostal retraction, no use of accessory muscles, clear to auscultation and percussion. CARDIAC regular rhythm, S1 normal, S2 normal, No S3 or S4, Apical impulse not displaced, no murmurs, gallops or rubs detected. ABDOMEN non-tender, no masses, no bruits, aorta, liver and spleen not palpated, bowel sounds normal, severely obese PERIPHERAL PULSES pulses full and equal in all extremities EXTREMITIES & BACK no clubbing, cyanosis or edema MEDICATIONS UPDATED/STARTED TODAY: atenolol 50 mg Tablet, 1 p.o. daily, #0 (Zero) Klonopin 1 mg Tablet, 1 p.o. twice daily, #0 (Zero) lovastatin 20 mg Tablet, 1 p.o. daily, #0 (Zero) methadone 10 mg Tablet, 2 p.o. twice daily, #0 (Zero) Pinson 3-6-9 1,200 mg Capsule, 1 p.o. daily, #0 (Zero) omeprazole 20 mg Tablet, Delayed Release (E.C.), 1 p.o. daily, #0 (Zero) oxycodone 10 mg Tablet, 2 p.o. three times daily, #0 (Zero) Paxil 20 mg Tablet, 1 p.o. three times daily, #0 (Zero) IMPRESSIONS/PLAN 1. Left bundle branch block. There is no obvious underlying condition that could be causing this finding. She does not have symptoms of ischemia. She does not have symptoms of systemic disease. She does not give a history of Lyme infection. She is entirely asymptomatic with this also. 2. Morbid obesity. 3. Tobacco abuse. PLAN: 1. We will need to obtain an echocardiogram to determine left ventricular function. The echo will determine if the patient has a cardiomyopathy (idiopathic cardiomyopathies can be associated with left bundle branch block). We will also get an idea of the consistency of the myocardium. For instance, amyloidosis has a starry night inverted comet appearance. 2. We will obtain a Lexiscan study to determine whether ischemia is present or not. This might be a difficult study, however, due to the patient's body size. Pharmacological stress tests are recommended in patient's with bundle branch blocksas well as an exercise stress test to determine whether ischemia is present or not. 3. We will obtain basic electrolytes such as a potassium, magnesium, and sodium. We will also obtain thyroid function tests. We will also obtain Lyme titers. I will see the patient back with the results of this testing. It has certainly been a pleasure being involved in the care of this very nice patient. TODAYS ORDERS 1. 2D, color flow, doppler 1 Day 2. Lexiscan Infusion 1 Day, able to convert to treadmill stress if pt able to exercise 3. (Define) Lyme titres 4. BMP Today 5. Magnesium Today 6. T3, Thyroxine, TSH Profile Today 7. Return Visit 1 month Kuldeep Herndon M.D. documented in this encounter Plan of Treatment Not on file documented as of this encounter Visit Diagnoses Not on filedocumented in this encounter Additional Health Concerns Infection Onset Date Last Indicated Resolved Time 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 per 09/01/16 carton waxing machine operator note; left foot tissue 10/08/16 09/01/2016 09/01/2016 10/11/2018 7:49 AM C DT 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 per 09/01/16 carton waxing machine operator note; left foot tissue 10/08/16 10/11/2018 02/27/2019 documented as of this encounter Care Teams Lever Tender Relationship Specialty Start Date End Date Pramod Sweet MD PCP - General Family Practice 07/11/11 05/28/14 Hawa Wasserman MD PCP - General 06/29/15 09/03/16 Madhuri Whitman APRN STONE SETTER METAL OPTICAL FRAMES PCP - General Nurse Practitioner - Family 09/04/16 08/23/20 Madhuri Whitman APRN STONE SETTER METAL OPTICAL FRAMES [address] [address] PCP - Assigned PCP 09/03/16 05/21/18 [place] [address] [place] [address] PCP - General Family Medicine 08/24/20 01/23/22 No Ref-Primary, Physician PCP - General 02/20/22 06/29/22 [place] [address] [place] [address] PCP - General Family Medicine 06/30/22 Kaylen Aiken, ROQUE Clinic Inspector Wire Rope 10/18/16 Edu Crawford DPM [address] [facility] [address] [place] [address] Podiatry 10/18/16 Madhuri Whitman APRN CNP [address] [place] [address] Assigned PCP 09/03/16 09/27/19 Rosey Alexander, [facility] Clinic Inspector Wire Rope Primary Care - CC 09/27/18 9 Rosey Alexander, [facility] Lead Inspector Wire Rope Primary Care - CC 11/08/18 05/07/19 Craig Montenegro PA-C [address] [place] [address] Assigned PCP 09/28/19 01/31/20 Altagracia Alexander DPM, Podiatry/Foot and Ankle Surgery [address] [place] [address] [place] [address] Assigned Musculoskeletal Provider 01/09/20 10/30/20 [place] [address] [place] [address] Assigned PCP 02/01/20 08/28/20 Cy Leonardo Personal Advocate & Liaison (PAL) 08/26/20 10/13/20 [place] [address] [place] [address] Assigned PCP 08/29/20 Rebecca Palumbo MD [address] [place] [address] [address] [place], [place] 916085 Assigned Neuroscience Provider 10/01/20 10/14/21 Anders Ramachandran Personal Advocate & Liaison (PAL) 10/14/20 07/07/21 Magdalena Brice Personal Advocate & Liaison (PAL) 11/14/21 12/27/21 Maddie Mae Personal Advocate & Liaison (PAL) Family Medicine 12/28/21 Aydee Mcgill RN RN Clinical Product Navigator Primary Care - CC 06/30/22 06/30/22 [facility] [employer] 10/18/16 06/24/17 [facility] 07/27/17 08/14/17 documented as of this encounter
--- OUTSIDE RECORDS SUMMARY | 2023-04-26 00:10 | XMS_ITS | Encounter Summary ---
Author Name Unknown Organization [place] Address [address] [place] [address] Care Team Providers Care Press Offbearer Name Role Phone Dwayne Draper MD Primary Care Provider + Hawa Wasserman MD Primary Care Provider Unavailabl e Madhuri Whitman RRT RECYCLING MANAGER Primary Care Prov ider Kaylen Aiken RN Unavailable [phone] Edu Crawford DPM Unavailable [phone] Madhuri Whitman RRT RECYCLING MANAGER Unavailable + Madhuri Whitman RRT RECYCLING MANAGER Unavailable + Rosey Alexander ONLINE PUBLISHER Unavailable [phone] Rosey Alexander ONLINE PUBLISHER Unavailable [phone] Craig Montenegro PA-C Unavailable +[phone] Altagracia Alexander DPM, Podiatry /Foot and Ankle Surgery Unavailable Enrico Felton DO Unavailable [phone] Enrico Felton DO Primary Care Provider [phone] Cy Leonardo Unavailable Unavailable Enrico Felton DO Unavailable [phone] Rebecca Palumbo MD Unavailable [phone] Anders Ramachandran Unavailable Unavailable Magdalena Brice Unavailable Unavailable JesusMaddie bryant Unavailable Unavailable No Ref-Primary, Physician Primary Care Provider Enrico Felton DO Primary Care Provider [phone] Nano Aydee K RN Unavailable [phone] Reason for Visit * Reason Onset Date Comments Refill Request 03/08/2012 Encounter Details Date Type Department Care Team (Late st Contact Info) Description 03/08/2012 MyC Refill M [address], [address] [place] [address] [place] [address] [place] [address] Refill Request Social History Tobacco Use Types [...] Isolation 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 facility per 09/01/16 property custodian note; left foot tissue 10/08/16 09/01/2016 09/01/2016 10/11/2018 7:49 AM C DT 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 per 09/01/16 property custodian note; left foot tissue 10/08/16 10/11/2018 02/27/2019 documented as of this encounter Care Teams Press Offbearer Relationship Specialty Start Date End Date Dwayne Draper MD PCP - General Family Practice 07/11/11 05/28/14 Hawa Wasserman MD PCP - General 06/29/15 09/03/16 Madhuri Whitman APRN RECYCLING MANAGER PCP - General Nurse Practitioner - Family 09/04/16 08/23/20 Madhuri Whitman APRN RECYCLING MANAGER [address] [address] PCP - Assigned PCP 09/03/16 05/21/18 [place] [address] [place] [address] PCP - General Family Medicine 08/24/20 01/23/22 No Ref-Primary, Physician PCP - General 02/20/22 06/29/22 [place] [address] [place] [address] PCP - General Family Medicine 06/30/22 Kaylen Aiken, RN Clinic Health Administration Teacher 10/18/16 Edu Crawford DPM [address] [facility] [address] [place] [address] Podiatry 10/18/16 Madhuri Whitman APRN RECYCLING MANAGER [address] [address] Assigned PCP 09/03/16 09/27/19 Rosey Alexander LSW Clinic Health Administration Teacher Primary Care - CC 09/27/18 9 Rosey Alexander LSW Lead Health Administration Teacher Primary Care - CC 11/08/18 05/07/19 Craig Montenegro PA-C [address] [place] [address] Assigned PCP 09/28/19 01/31/20 Altagracia Alexander DPM, Podiatry/Foot and Ankle Surgery [address] [place] [address] Assigned Musculoskeletal Provider 01/09/20 10/30/20 [place] [address] [place] [address] Assigned PCP 02/01/20 08/28/20 Cy Leonardo Personal Advocate & Liaison (PAL) 08/26/20 10/13/20 [place] [address] [place] [address] Assigned PCP 08/29/20 Rebecca Palumbo MD [address] [place] [address] 297 [place], [place] [address]345 Assigned Neuroscience Provider 10/01/20 10/14/21 Anders Ramachandran Personal Advocate & Liaison (PAL) 10/14/20 07/07/21 Magdalena Brice Personal Advocate & Liaison (PAL) 11/14/21 12/27/21 Maddie Mae Personal Advocate & Liaison (PAL) Family Medicine 12/28/21 Aydee Mcgill RN ROQUE Clinical Product Navigator Primary Care - 06/30/22 06/30/22 [facility] [employer] 10/18/16 06/24/17 [facility] 07/27/17 08/14/17 documented as of this encounter
--- OUTSIDE RECORDS SUMMARY | 2023-04-26 00:10 | XMS_ITS | Encounter Summary ---
Author Name Unknown Organization [place] Address [address] [place] [address] Care Team Providers Care Waste Handling Technician Name Role Phone Dwayne Draper MD Primary Care Provider + Hawa Wasserman MD Primary Care Provider Unavailabl e Madhuri Whitman LAND APPRAISER DIGITAL TECHNICIAN Primary Care Prov ider Kaylen Aiken RN Unavailable [phone] Edu Crawford DPM Unavailable [phone] Madhuri Whitman LAND APPRAISER DIGITAL TECHNICIAN Unavailable + Madhuri Whitman LAND APPRAISER DIGITAL TECHNICIAN Unavailable + Rosey Alexander FLEXO OPERATOR Unavailable [phone] Rosey Alexander FLEXO OPERATOR Unavailable [phone] Craig Montenegro PA-C Unavailable +[phone] Altagracia Alexander DPM, Podiatry /Foot and Ankle Surgery Unavailable Enrico Felton DO Unavailable [phone] Enrico Felton DO Primary Care Provider [phone] Cy Leonardo Unavailable Unavailable Enrico Felton DO Unavailable [phone] Rebecca Palumbo MD Unavailable [phone] Anders Ramachandran Unavailable Unavailable Magdalena Brice Unavailable Unavailable ChristopherMaddie lee Unavailable Unavailable No Ref-Primary, Physician Primary Care Provider Enrico Felton DO Primary Care Provider [phone] Aydee Mcgill RN Unavailable [phone] Encounter Details Date Type Department Care Team (Late st Contact Info) Description 01/25/2012 MyC Medical Advice [address], [address] [address] [place] [address] [place] [address] Social History Tobacco Use Types Packs/Day Years [...] Isolation 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 facility per 09/01/16 museum specialist note; left foot tissue 10/08/16 09/01/2016 09/01/2016 10/11/2018 7:49 AM C DT 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 per 09/01/16 museum specialist note; left foot tissue 10/08/16 10/11/2018 02/27/2019 documented as of this encounter Care Teams Waste Handling Technician Relationship Specialty Start Date End Date Dwayne Draper MD PCP - General Family Practice 07/11/11 05/28/14 Hawa Wasserman MD PCP - General 06/29/15 09/03/16 Madhuri Whitman APRN DIGITAL TECHNICIAN PCP - General Nurse Practitioner - Family 09/04/16 08/23/20 Madhuri Whitman APRN DIGITAL TECHNICIAN [address] [address] PCP - Assigned PCP 09/03/16 05/21/18 [place] [address] [place] [address] PCP - General Family Medicine 08/24/20 01/23/22 No Ref-Primary, Physician PCP - General 02/20/22 06/29/22 [place] [address] [place] [address] PCP - General Family Medicine 06/30/22 Kaylen Aiken, ROQUE Clinic Sandwich Wrapper 10/18/16 Edu Crawford DPM [address] [place] [address] [address] [place] [address] Podiatry 10/18/16 Madhuri Whitman APRN DIGITAL TECHNICIAN [address] [address] Assigned PCP 09/03/16 09/27/19 Rosey Aelxander LSW Clinic Sandwich Wrapper Primary Care - CC 09/27/18 9 Rosey Alexander LSW Lead Sandwich Wrapper Primary Care - CC 11/08/18 05/07/19 Craig Montenegro PA-C [address] [place] [address] Assigned PCP 09/28/19 01/31/20 Altagracia Alexander, KYLAHM, Podiatry/Foot and Ankle Surgery [address] [place] [address] Assigned Musculoskeletal Provider 01/09/20 10/30/20 [place] [address] [place] [address] Assigned PCP 02/01/20 08/28/20 Cy Leonardo Personal Advocate & Liaison (PAL) 08/26/20 10/13/20 [place] [address] [place] [address] Assigned PCP 08/29/20 Rebecca Palumbo MD [address] [place] [address] [address] [place], [place] [address] Assigned Neuroscience Provider 10/01/20 10/14/21 Anders Ramachandran Personal Advocate & Liaison (PAL) 10/14/20 07/07/21 Magdalena Brice Personal Advocate & Liaison (PAL) 11/14/21 12/27/21 Maddie Mae Personal Advocate & Liaison (PAL) Family Medicine 12/28/21 Aydee Mcgill RN ROQUE Clinical Product Navigator Primary Care - CC 06/30/22 06/30/22 [facility] 10/18/16 06/24/17 [facility] 07/27/17 08/14/17 documented as of this encounter
--- OUTSIDE RECORDS SUMMARY | 2023-04-26 00:10 | XMS_ITS | Encounter Summary ---
Author Name Unknown Organization [facility] Address [address] [place] [address] Care Team Providers Care Geriatric Nurse Name Role Phone Dwayne Draper MD Primary Care Provider + Hawa Wasserman MD Primary Care Provider Unavailabl e Madhuri Whitman MANAGER MILITARY CITY ADMINISTRATOR Primary Care Prov ider Kaylen Aiken RN Unavailable [phone] Edu Crawford DPM Unavailable [phone] Madhuri Whitman MANAGER MILITARY CITY ADMINISTRATOR Unavailable + Madhuri Whitman MANAGER MILITARY CITY ADMINISTRATOR Unavailable + Rosey Alexander CROP AND SOIL TECHNICIAN Unavailable [phone] Rosey Alexander CROP AND SOIL TECHNICIAN Unavailable [phone] Craig Montenegro PA-C Unavailable +[phone] Altagracia Alexander DPM, Podiatry /Foot and Ankle Surgery Unavailable Enrico Felton DO Unavailable [phone] Enrico Felton DO Primary Care Provider [phone] Cy Leonardo Unavailable Unavailable Enrico Felton DO Unavailable [phone] Rebecca Palumbo MD Unavailable [phone] Anders Ramachandran Unavailable Unavailable Magdalena Brice M Unavailable Unavailable JesusMaddie bryant Unavailable Unavailable No Ref-Primary, Physician Primary Care Provider Enrico Felton DO Primary Care Provider [phone] Nano Aydee K RN Unavailable [phone] Reason for Visit * Reason Onset Date Comments Refill Request 03/08/2012 Oxycodone, metha done Encounter Details Date Type Department Care Team (Late st Contact Info) Description 03/08/2012 MyC Refill [facility], [address] [place] [address] [place] [address] [place] [address] Refill Request (Oxycodone, methadone) Social History Tobacco Use Types Packs/Day Years [...] Notes * Telephone Encounter - Kayleigh Foster - 03/11/2012 9:01 AM CST Message left on voice mail that rx's ready to be picked up at restaurant front [facility]. Kayleigh Foster RN TING CAP ASSEMBLER * Telephone Encounter - Elisa Erazoanne - 03/08/2012 8:16 AM [facility] Original authorizing provider: Dwayne Draper MD, MD Alyssa Palencia would like a refill of the following medications: oxyCODONE (ROXICODONE) 10 MG immediate release tablet [Dwayne Draper MD, MD] methadone (DOLOPHINE) 10 MG tablet [Dwayne Draper MD, MD] Preferred pharmacy: [facility] Comment: I am leaving for [place] on mar 10 and will not be back until mar 25 2012 so I need to gat them filled before I leave since they are a narcitic I think I have to milk pickup driver the script at the clinic TING CAP ASSEMBLER documented in this encounter Plan of Treatment Not on file documented as of this encounter Visit Diagnoses Diagnosis Chronic pain- Primary Other chronic pain documented in this encounter Additional Health Concerns Infection Onset Date Last Indicated Resolved Time 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 per 09/01/16 improvement engineer note; left foot tissue 10/08/16 09/01/2016 09/01/2016 10/11/2018 7:49 AM C DT 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 per 09/01/16 improvement engineer note; left foot tissue 10/08/16 10/11/2018 02/27/2019 documented as of this encounter Care Teams Geriatric Nurse Relationship Specialty Start Date End Date Dwayne Draper MD PCP - General Family Practice 07/11/11 05/28/14 Hawa Wasserman MD PCP - General 06/29/15 09/03/16 Madhuri Whitman APRN CITY ADMINISTRATOR PCP - General Nurse Practitioner - Family 09/04/16 08/23/20 Madhuri Whitman APRN CITY ADMINISTRATOR [address] [place] [address] PCP - Assigned PCP 09/03/16 05/21/18 [place] [address] [place] [address] PCP - General Family Medicine 08/24/20 01/23/22 No Ref-Primary, Physician PCP - General 02/20/22 06/29/22 [place] [address] [place] [address] PCP - General Family Medicine 06/30/22 Kaylen Aiken, RN Clinic Director Social Service 10/18/16 [place] Crawford D[place] [address] [facility] [address] [place], [place] [id number] Podiatry 10/18/16 Madhuri Whitman APRN CITY ADMINISTRATOR [address] [place], [place] [address] Assigned PCP 09/03/16 09/27/19 Rosey Alexander, CROP AND SOIL TECHNICIAN Clinic Director Social Service Primary Care - CC 09/27/18 9 Rosey Alexander, [facility] Lead Director Social Service Primary Care - CC 11/08/18 05/07/19 Craig Montenegro PA-C [address] [place] [address] Assigned PCP 09/28/19 01/31/20 Altagracia Alexander DPM, Podiatry/Foot and Ankle Surgery [address] [facility] [address] [place] [address] Assigned Musculoskeletal Provider 01/09/20 10/30/20 [place] [address] [place] [address] Assigned PCP 02/01/20 08/28/20 Cy Leonardo Personal Advocate & Liaison (PAL) 08/26/20 10/13/20 [place] [address] [place] [address] Assigned PCP 08/29/20 Rebecca Palumbo MD [address] [place] [address] [address] [place], [place] [address] Assigned Neuroscience Provider 10/01/20 10/14/21 Anders Ramachanrdan Personal Advocate & Liaison (PAL) 10/14/20 07/07/21 Magdalena Brice Personal Advocate & Liaison (PAL) 11/14/21 12/27/21 Maddie Mae Personal Advocate & Liaison (PAL) Family Medicine 12/28/21 Aydee Mcgill RN RN Clinical Product Navigator Primary Care - 06/30/22 06/30/22 [facility] 10/18/16 06/24/17 [facility] 07/27/17 08/14/17 documented as of this encounter
--- OUTSIDE RECORDS SUMMARY | 2023-04-26 00:10 | XMS_ITS | Encounter Summary ---
Author Name Unknown Organization [facility] Address [address] [place] [address] Care Team Providers Care It Analyst Name Role Phone Dwayne Draper MD Primary Care Provider + Hawa Wasserman MD Primary Care Provider Unavailabl e Madhuri Whitman ATTENDING ANESTHESIOLOGIST MANAGER [employer] Primary Care Prov ider Kaylen Aiken RN Unavailable [phone] Edu Crawford DPM Unavailable [phone] Madhuri Whitman ATTENDING ANESTHESIOLOGIST MANAGER [employer] Unavailable + Madhuri Whitman ATTENDING ANESTHESIOLOGIST MANAGER [employer] Unavailable + Rosey Alexander OIM ARCHITECT Unavailable [phone] Rosey Alexander OIM ARCHITECT Unavailable [phone] Craig Montenegro PA-C Unavailable +[phone] Altagracia Alexander DPM, Podiatry /Foot and Ankle Surgery Unavailable Enrico Felton DO Unavailable [phone] Enrico Felton DO Primary Care Provider [phone] Cy Leonardo Unavailable Unavailable Enrico Felton DO Unavailable [phone] Rebecca Palumbo MD Unavailable [phone] Anders Ramachandran Unavailable Unavailable Magdalena Brice M Unavailable Unavailable JesusMaddie bryant Unavailable Unavailable No Ref-Primary, Physician Primary Care Provider Enrico Felton DO Primary Care Provider [phone] Aydee Mcgill RN Unavailable [phone] Encounter Details Date Type Department Care Team (Late st Contact Info) Description 06/17/2012 [facility] [address], [address] [place] [address] [facility] Social History Tobacco Use Types Packs/Day Years [...] Isolation 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 facility per 09/01/16 certified shorthand reporter note; left foot tissue 10/08/16 09/01/2016 09/01/2016 10/11/2018 7:49 AM C DT 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 per 09/01/16 certified shorthand reporter note; left foot tissue 10/08/16 10/11/2018 02/27/2019 documented as of this encounter Care Teams It Analyst Relationship Specialty Start Date End Date Dwayne Draper MD PCP - General Family Practice 07/11/11 05/28/14 Hawa Wasserman MD PCP - General 06/29/15 09/03/16 Madhuri Whitman APRN MANAGER [employer] PCP - General Nurse Practitioner - Family 09/04/16 08/23/20 Madhuri Whitman APRN MANAGER [employer] [address] [place] [address] PCP - Assigned PCP 09/03/16 05/21/18 [place] [address] [place] [address] PCP - General Family Medicine 08/24/20 01/23/22 No Ref-Primary, Physician PCP - General 02/20/22 06/29/22 [place] [address] [place] [address] PCP - General Family Medicine 06/30/22 Kaylen Aiken, [facility] Grain Elevator Motor Starter 10/18/16 Edu Crawford DPM [address] [facility] [address] [place] [address] Podiatry 10/18/16 Madhuri Whitman APRN CNP [address] [place] [address] Assigned PCP 09/03/16 09/27/19 Rosey Alexander LSW Clinic Grain Elevator Motor Starter Primary Care - CC 09/27/18 9 Rosey Alexander LSW Lead Grain Elevator Motor Starter Primary Care - CC 11/08/18 05/07/19 Craig Montenegro PA-C [address] [place] [address] Assigned PCP 09/28/19 01/31/20 Altagracia Alexander, DPM, Podiatry/Foot and Ankle Surgery [address] [place] [address] Assigned Musculoskeletal Provider 01/09/20 10/30/20 [place] [address] [place], [place] [address] Assigned PCP 02/01/20 08/28/20 Cy Leonardo Personal Advocate & Liaison (PAL) 08/26/20 10/13/20 [place] [address] [place] [address] Assigned PCP 08/29/20 Rebecca Palumbo MD [address] [place] [address] [address] [place], [place] [address] Assigned Neuroscience Provider 10/01/20 10/14/21 Anders Ramachandran Personal Advocate & Liaison (PAL) 10/14/20 07/07/21 Magdalena Brice Personal Advocate & Liaison (PAL) 11/14/21 12/27/21 Maddie Mae Personal Advocate & Liaison (PAL) Family Medicine 12/28/21 Aydee Mcgill, RN RN Clinical Product Navigator Primary Care - CC 06/30/22 06/30/22 [facility] 10/18/16 06/24/17 [facility] [employer] 07/27/17 08/14/17 documented as of this encounter
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
--- OUTSIDE RECORDS SUMMARY | 2023-04-26 00:10 | XMS_ITS | Encounter Summary ---
Author Name Unknown Organization [facility] Address [address] [place] [address] Care Team Providers Care School Bus Dispatcher Name Role Phone Madhuri Whitman GRINDER SET UP OPERATOR JIG TRIMMER CLIMBER Primary Care Prov ider Kaylen Aiken RN Unavailable [phone] Edu CrawfordM Unavailable [phone] Madhuri Whitman APRN TRIMMER CLIMBER Unavailable + Madhuri Whitman APRN TRIMMER CLIMBER Unavailable + Rosey Alexander MASTERCAM PROGRAMMER Unavailable [phone] Rosey Alexander MASTERCAM PROGRAMMER Unavailable [phone] Craig MontenegroC Unavailable [phone] Altagracia Alexander DPM, Podiatry /Foot and Ankle Surgery Unavailable Enrico Felton DO Unavailable [phone] Enrico Felton DO Primary Care Provider [phone] Cy Leonardo Unavailable Unavailable Enrico Felton DO Unavailable [phone] Rebecca Palumbo MD Unavailable [phone] Anders Ramachandran Unavailable Unavailable Magdalena Brice Unavailable Unavailable Maddie Mae Unavailable Unavailable No Ref-Primary, Physician Primary Care Provider Enrico Felton DO Primary Care Provider Aydee Mcgill RN Unavailable [phone] Encounter Details Date Type Department Care Team (Late st Contact Info) Description 09/21/2016 MyC Medical Advice [address], [address] [place] [address] Malou Vallejo Social History Tobacco [...] Isolation 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 facility per 09/01/16 marine engine mechanic note; left foot tissue 10/08/16 09/01/2016 09/01/2016 10/11/2018 7:49 AM C DT 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 per 09/01/16 marine engine mechanic note; left foot tissue 10/08/16 10/11/2018 02/27/2019 documented as of this encounter Care Teams School Bus Dispatcher Relationship Specialty Start Date End Date Madhuri Whitman APRN TRIMMER CLIMBER PCP - General Nurse Practitioner - Family 09/04/16 08/23/20 Madhuri Whitman APRN TRIMMER CLIMBER [address] [place] [address] PCP - Assigned PCP 09/03/16 05/21/18 [place] [address] [place] [address] PCP - General Family Medicine 08/24/20 01/23/22 No Ref-Primary, Physician PCP - General 02/20/22 06/29/22 [place] [address] [place] [address] PCP - General Family Medicine 06/30/22 Kaylen Aiken, [facility] Ward Maid 10/18/16 Edu Crawford DPM [address] [facility] [address] [place], [place] [address] Podiatry 10/18/16 Madhuri Whitman APRN TRIMMER CLIMBER [address] [place] [address] Assigned PCP 09/03/16 09/27/19 Rosey Alexander, MASTERCAM PROGRAMMER Clinic Ward Maid Primary Care - CC 09/27/18 9 Rosey Alexander, MASTERCAM PROGRAMMER Lead Ward Maid Primary Care - CC 11/08/18 05/07/19 Craig Montenegro PA-C [address] [place] [address] Assigned PCP 09/28/19 01/31/20 Altagracia Alexander DPM, Podiatry/Foot and Ankle Surgery [address] [place] [address] Assigned Musculoskeletal Provider 01/09/20 10/30/20 [place] [address] [place] [address] Assigned PCP 02/01/20 08/28/20 Cy Leonardo Personal Advocate & Liaison (PAL) 08/26/20 10/13/20 [place] [address] [place] [address] Assigned PCP 08/29/20 Rebecca Palumbo MD [address] [place] [address] [address] [place], [place] [address] Assigned Neuroscience Provider 10/01/20 10/14/21 Anders Ramachandran Personal Advocate & Liaison (PAL) 10/14/20 07/07/21 Magdalena Brice Personal Advocate & Liaison (PAL) 11/14/21 12/27/21 Maddie Mae Personal Advocate & Liaison (PAL) Family Medicine 12/28/21 Aydee Mcgill RN RN Clinical Product Navigator Primary Care - 06/30/22 06/30/22 [facility] 10/18/16 06/24/17 [facility] 07/27/17 08/14/17 documented as of this encounter
--- OUTSIDE RECORDS SUMMARY | 2023-04-26 00:11 | XMS_ITS | Clinical Summary ---
Author Name Unknown Organization [facility] Address [place], [place] [address] Care Team Providers Care Radiology Therapist Name Role Phone Enrico Felton DO Primary Care Provider [phone] Allergies Active Allergy Reactions Criticality Noted Date Comments Acetaminophen Other - Describe In Comment Field 05/10/2013 Stomach upset Other reaction(s): Gastric Reflux Other reaction(s): Gastric Reflux Atorvastatin Rash Low Buspirone Hcl Other - Describe In Comment Field 10/20/2013 dizzy Celecoxib Body gets stiff Gabapentin Dystonia High 01/13/2015 Body stiffness Ibuprofen Other - Describe In Comment Field 10/20/2013 Stomach upset Naproxen Body stiffness Gabapentin Body stiffness Prednisone Gingivitis 10/15/2013 Sores in her mouth and doesn't like what it does to her Sertraline Cramping, flatulence Medications Medication Sig Dispensed Refills Start Date End Date Status amLODIPine (NORVASC) 5 mg tablet Take 5 mg by mouth once daily. 0 12/09/2021 Active lisinopriL (PRINIVIL; ZESTRIL) 20 mg tablet Take 20 mg by mouth once daily. 0 12/09/2021 Active pantoprazole (PROTONIX) 40 mg delayed-release tablet Take 40 mg by mouth once daily. 0 10/25/2021 Active PARoxetine (PAXIL) 30 mg tablet Take 60 mg by mouth once daily. 0 12/09/2021 Active rosuvastatin (CRESTOR) 5 mg tablet Take 5 mg by mouth at bedtime. 0 12/09/2021 Active pregabalin (LYRICA) 150 mg capsule Take 150 mg by mouth two times daily. 0 Active WalkerIndications:Ca vernous malformation Walker with front wheels for home use. 1 Each 0 01/03/2022 Active buprenorphine-naloxo ne (Suboxone) 4-[address] 1 Film under the tongue two times daily. Place film under the tongue until completely dissolved. Do not chew or swallow film. 0 Active nicotine 14 mg/24 hr (NICODERM; HABITROL) 14 mg/24 hr patchIndications:Tob acco abuse [The details of the medication are not available because there are pending changes by a home health clinician.] 30 Patch 0 06/18/2022 Active Additional Information Patient not taking.Reason: See Comment (States she is not going to stop smoking), Informant: Patient's Recall, Reported on 06/21/2022 Active Problems Problem Noted Date Diagnosed Date Cognitive impairment 06/15/2022 ICH (intracerebral hemorrhage) 06/13/2022 Below-knee amputation of lef t lower extremity determined by examination 06/13/2022 Dependent for mobility 06/13/2022 Deficit in activities of daily living (ADL) 05/18 Dysphagia 06/13/2022 History of left below knee amputation 06/13/2022 Status post transmetatarsal amputation of foot, right 06/13/2022 Type 2 diabetes mellitus 06/13/2022 SIRS (systemic inflammatory response syndrome) 1 ICH (intracerebral hemorrhage) 12/28/2021 Substance abuse 12/28/2021 Falls 12/28/2021 Memory problem 12/28/2021 Open toe wound 11/26/2013 Obesity, unspecified 03/06/2011 Pain medication agreement 08/22/2010 Spinal Stenosis of Lumbar Region L4-S1 0 Intervertebral Lumbar Disc D isorder with Myelopathy, Lumbar Region L4-S1 04/20/2009 Essential hypertension, benign 09/28/2008 Narcotic Contract VIOLATION! 04/01/2008 Degeneration of lumbar or lumbosacral interverte bral disc 02/26/2008 Esophageal reflux 12/26/2007 Narcotic Contract 04/19/2007 Major depressive disorder, recurrent episode, un specified 09/07/2006 Overview: Chronic Narcotic Use Due for updated contact Dr. Gonzalez Methadone 10 three times daily, #90 a month Percocet for breakthrough, #36 a month Displacement of cervical int ervertebral disc without myelopathy Other and unspecified disc disorder of lumbar re gion Esophageal reflux Pure hypercholesterolemia Lateral epicondylitis of elbow Chronic pain syndrome Other joint derangement, not elsewhere classified, lower leg Other ankle sprain and strain Resolved Problems Problem Noted Date Diagnosed Date Resolved Date Narcotic Contract 04/19/2007 10/28/2008 Immunizations Name Administration Dates Next Due Influenza A (H1N1), Inactivated 04/01/2009 Influenza A (H1N1), Inactiva kenneth (Age >=3 Years) 04/01/2009 Influenza RIV4 (Age 18+ Year s) PRESERV FREE 02/17/2019 Influenza Virus, Unspecified 02/11/2016, 12/15/2008,12/26/2007,2006,02/02/2005 Influenza, IIV3 (Age >=3 years) 12/16/19 09,12/26/2007,01/31/2007,2004 Influenza, IIV4 12/29/2021,02/21/2017,02/11/2016 Pneumococcal Conj 20-valent (Prevnar 20) 02/20/2022 Pneumococcal Poly,23-Valent (Pneumovax) 04/22/2009 Td (Age >=7 Years) 01/15/2002 Td, Preservative Free (age > = 7 Years) 01/15/2002 Tdap 02/20/2022,12/21/2011 Tuberculin Skin Test, Unspecified 05/03/2017 Zoster (Shingrix-RZV, recombinant) 02/20/2022, Family History Medical History Relation Name Comments Diabetes Daughter Heart Disease Father PA @ age 58 Hypertension Father Cancer-breast Mother Diabetes Mother Stroke Mother mini Cancer-breast Sister Relation Name Status Comments Daughter Father Mother Sister Social History Tobacco Use Types Packs/Day Years Used Date Smoking Tobacco: Every Day Cigarettes 1 30.1 Started: 03/19/1993 Smokeless Tobacco: Never Tobacco Cessation:Ready to Q uit: No Comments:ATQ but patient states having a tough time quitting. Still smoking. Alcohol Use Standard Drinks/Week Comments No 0 (1 standard drink = 0.6 oz pur e alcohol) Social Connections Answer Date Recorded Frequency of Communication with Friends and Fami ly Not on file 06/26/2022 Sex and Gender Information Value Date Recorded Sex Assigned at Not on file Gender Identity Not on file Sexual Orientation Not on file Obstetrics History Para Term AB IAB SAB Ectopic Multiple Livin g Live Births 1 1 Date Outcome GA Total Labor Labor/2nd/3rd Weight Sex Delivery Anes PTL Nohemy A1 A5 Name Cl in Para Last Filed Vital Signs Vital Sign Reading Time Taken Comments Blood Pressure 116/84 06/21/2022 10:59 AM CDT Pulse 93 06/21/2022 10:52 AM CDT Temperature 36.2 ??C (97.2 ??F) 06/21/2022 1 0:52 AM CDT Respiratory Rate 18 06/21/2022 10:5 2 AM CDT Oxygen Saturation 98% 06/21/2022 10: 52 AM CDT Inhaled Oxygen Concentration - - Weight 89.8 kg (197 lb 15.6 oz) 06/14/2022 4:00 AM CDT Height 175.3 cm (5' 9) 06/13/2022 10:0 0 PM CDT Body Mass Index 29.24 06/13/2022 10:00 PM CDT Plan of Treatment Health Maintenance Due Date Last Done Comments Depression screening for age 12+ 1974 HIV for age 15-65 1977 BMI (ht and wt on same day) for age 18+ 1980 Hepatitis C screening for ag e 18-79 1980 Colonoscopy through age 75 12/17/2007 Pap test for age 21-65 01/29/2011 01/30/2008 Mammogram for age 45-75 03/07/2012 03/07/2011 Lipids for age 45-75 03/07/2016 03/07/2011, 04/12/2009, 01/13/2008 COVID-19 vaccine series ( season) 2022 10/12/2021, 09/20/2020, 08/23/2020 Influenza for age 50-64 11/17/2022 12/30/19, 02/17/2019, 02/21/2017, Additional history exists Tetanus booster 02/21/2032 02/20/2022, 06/2011, 01/15/2002, Additional history exists Pneumococcal series for age 6-64 Completed 02/21/20, 04/22/2009 Tdap Completed 02/20/2022, 12/21/2011 Zoster (shingles) series for age 50+ Completed 02/20/2022, 08/23/2020 Medical Devices Implanted Type Area Coat Joiner Lockstitch Device Identifier Shelf Expiration Date Model / Serial / Lot Screw 6.5x35 Tsrh-3d Shrt Post - [id number] Implanted:Qty: 3 on 04/20/2009 at [facility] Spine Implants N/A: Spine [employer] [id number]# / / Screw 6.5x40 Tsrh-3d Shrt Post - [id number] Implanted:Qty: 2 on 04/20/2009 at [facility] Spine Implants N/A: Spine [employer]K [id number]# / / Christopher 6.0cmx5.5mm Pre-Cut - [id number] Implanted:Qty: 1 on 04/20/2009 at [facility] Spine Implants N/A: Lumbar Vertebrae SO[employer]ANEK [id number]# / / Christopher 7.0cmx5.5mm Pre-Cut - [id number] Implanted:Qty: 1 on 04/20/2009 at [facility] Spine Implants N/A: Lumbar Vertebrae SO[employer] [id number]# / / Putty Bone Dbx 1cc [id number] - [id number] Implanted:Qty: 1 on 05/01/2005 at [facility] Explanted:at [facility] (Quantity not on file) Spine Musculoskeletal Transplant 01/18/2007 [id number]# / [id number] / Block Aric [id number] - [id number] Implanted:Qty: 1 on 05/01/2005 at [facility] Explanted:at [facility] (Quantity not on file) Spine Medtronic 08/18/[id number]# / [id number] / [id number] Description:EXP 08/18/06 Block Aric [id number] - [id number] Implanted:Qty: 1 on 05/01/2005 at [facility] Explanted:at [facility] (Quantity not on file) Spine Medtronic 05/11/[id number]# / [id number] / [id number] Description:EXP 05/11/06 Screw Canclls 4.0x14mm Self-Tapping - [id number] Implanted:Qty: 4 on 05/01/2005 at [facility] Cervical Vertebrae SOFAMOR DANEK [id number]# / / Implant On The Fly - [id number] Implanted:Qty: 1 on 05/01/2005 at [facility] Cervical Vertebrae [id number] / / Description:40MM ANTERIOR CE RVICAL PLATE Plate Pyramid 4h 37mm - [id number] Implanted:Qty: 1 on 04/20/2009 at [facility] N/A: Spine SO[employer]ANEK [id number]# / / Screw Lock 32 Flush Break Ti - [id number] Implanted:Qty: 5 on 04/20/2009 at [facility] N/A: Spine SO[employer]ANEK [id number]# / / Kit Infuse Bone Graft [id number] - [id number] Implanted:Qty: 1 on 04/20/2009 at [facility] Spine Medtronic 10/17/2010 [id number]# / / [id number] D Putty Mastergraft 10cc - [id number] Implanted:Qty: 1 on 04/20/2009 at [facility] Spine Medtronic 11/16/2012 [id number]# / / [id number] Vessel Guard Preclude 5x6cm - [id number] Implanted:Qty: 1 on 04/20/2009 at [facility] Spine [employer] [id number]# / / [id number] 20x4mm Screw Implanted:Qty: 4 on 04/20/2009 at [facility] Spine [employer] 04.802.21 1 / / Description:20X4MM SCREW Connector Small 5.5 Implanted:Qty: 5 on 04/20/2009 at [facility] Spine Medtronic [id number] / / Description:CONNECTOR SMALL 5.5 [id number] Implanted:Qty: 1 on 04/20/2009 at [facility] Explanted:at [facility] (Quantity not on file) Spine [employer] 03/30/2013 [id number] / [id number] / Description:OSTEOCEL 5CC [id number] [id number] Prec 14x26 [[id number]] Implanted:Qty: 1 on 04/20/2009 at [facility] Explanted:at [facility] (Quantity not on file) Spine [employer] 12/19/2011 [id number]# / [id number] / Implant Spine [id number] 12 Deg Spacer/Plate - [id number] Implanted:Qty: 1 on 04/20/2009 at [facility] N/A: Spine [employer] 08.802.01 3S# / / Screw Arlin 6.5x30mm - [id number] Implanted:Qty: 4 on 04/20/2009 at [facility] N/A: Spine SOFAMOR BENNETTEK [id number]# / / Additional Health Concerns Infection Onset Date Last Indicated MRSA Clearance Comment:Infection Control Note: Hx of MRSA, surveillance criteria met, no need for further testing or isolation precautions. Do not delete or resolve the infection flag. 11/26/13 toe 12/28/2021 12/28/2021 Advance Directives Latest Code Status on File Code Status Date Activated Date Inactivated Comments Full Code 06/13/2022 7:10 AM 06/18/2022 6:53 PM Question Answer Comments Code Status Discussion: Reviewed Preferences Code Status History Code Status Date Activated Date Inactivated Comments Full Code 06/12/2022 4:53 PM 06/13/2022 7:10 AM Question Answer Comments Code Status Discussion: Unable to Assess Preferences, Provider to review later Full Code 12/28/2021 4:58 AM 01/03/2022 6:41 PM Question Answer Comments Code Status Discussion: Reviewed Preferences Full Code 11/26/2013 5:33 PM 11/28/2013 4:17 PM Full Code 04/20/2009 7:53 AM 04/20/2009 4:37 PM Care Teams Radiology Therapist Relationship Specialty [place] [address] [place] [address] PCP - General Family Practice 01/02/22
--- OUTSIDE RECORDS SUMMARY | 2023-04-26 00:11 | XMS_ITS ---
Author Name Unknown Organization [facility] Address [address] [place] [address] Care Team Providers Care Transfer Table Operator Name Role Phone Edu Crawford DPM Unavailable [phone] Enrico Felton DO Unavailable [phone] Maddie Mae Unavailable Unavailable Enrico Felton DO Primary Care Provider [phone] Clinical Product Navigator (CPN) Status:Closed (Closed) Start date:06/30/2022 End date:06/30/2022 Close reason:Unable to reach patient Continued Care and Services Coordination
--- OUTSIDE RECORDS SUMMARY | 2023-04-26 00:11 | XMS_ITS ---
Author Name Unknown Organization [facility] Address [address] [place] [address] Care Team Providers Care Director Of Housing And Energy Services Name Role Phone Edu Crawford DPM Unavailable [phone] Enrico Felton DO Unavailable [phone] Maddie Mae Unavailable Unavailable Enrico Felton DO Primary Care Provider [phone] Transitional Care Management Status:Closed (Closed) Start date:09/18/2022 Enrollment date:09/20/2022 End date:10/02/2022 Close reason:Goals met Continued Care and Services Coordination
== END 2023-04-22 06:32 | disposition home or self-care (01) ==
LOC: AMB 04-25 23:57
PROVIDERS: PCP Family Medicine; Visit Provider Emergency Medicine Emergency Medical Services
DX: G89.29 Other chronic pain (principal)
CPT/HCPCS: A0425; A0429

== ENCOUNTER 2023-04-22 06:51 | Emergency (ER) | payer MEDICARE, SELFPAY ==
[2023-04-22 06:56] VITALS: BP 168/89; PULSE 81; RESP 20; TEMP 36.7; O2SAT 99; BMI 28.9
--- NOTE | 2023-04-22 07:13 | ED.GENADULT ---
HPI - General Adult General Chief complaint: Unspecified Complaint, Adult Stated complaint: pain for 3 days Time Seen by Provider: 04/22/23 07:13 History of Present Illness HPI narrative: CC: Generalized Pain pt. h/o fibromylagia. hasn't been able to get her gabapentin filled and she missed pain clinic. denies n/v, diarrhea, fevers. 62-year-old woman presenting to the emergency department with concern of back pain. Brought by EMS. She is having cramps in her calves she gestures to her right leg. I ask about some bruises about her shoulder and she notes that she fell yesterday thinking that her leg was properly attached: She has a right below the knee amputation. Sounds like some social upheaval. People are staying at her place using drugs specifically methamphetamine. Does normally see a pain clinic and was to do urine test at last visit but it she said she was distracted when she left and for got to do it and so has not had Suboxone for couple of weeks now at least. She says she is not really worried about the Suboxone some much. She intends to follow up with her pain clinic but she thinks that it is is missing the Lyrica now for 2 or 3 days abrupt discontinuation that is causing her to be so uncomfortable. Reviewing records looks to have been on Lyrica/pregabalin at 150 mg b.i.d. Apparently her usual pharmacy did not have the medication she needed to fill. She checked [facility] as well and they were out. She does admit to smoking marijuana but absolutely denies other substances. Reviewing records that show meth positive urine in the past; she says her pain clinic is aware and that this is from being around other people smoking it. Related Data Home Medications Medication Instructions Recorded Confirmed amlodipine 5 mg tablet 5 mg PO DAILY 01/17/22 04/22/23 baclofen 5 mg tablet 5 mg PO TID 01/17/22 04/22/23 buprenorphine 8 mg-naloxone 2 mg 1 film sublingual DAILY 01/17/22 04/22/23 sublingual film (Suboxone) oxybutynin chloride 5 mg 5 mg PO DAILY 01/17/22 04/22/23 tablet,extended release 24 hr pantoprazole 40 mg tablet,delayed 40 mg PO BID 01/17/22 04/22/23 release paroxetine HCl 30 mg tablet 60 mg PO DAILY 01/17/22 04/22/23 pregabalin 150 mg capsule (Lyrica) 150 mg PO BID 01/17/22 04/22/23 rosuvastatin 5 mg tablet 5 mg PO HS 01/17/22 04/22/23 sennosides 8.6 mg capsule (senna) 8.6 mg PO BID 01/17/22 04/22/23 Previous Rx's Medication Instructions Recorded cephalexin 500 mg capsule 500 mg PO TID #15 caps 01/18/22 pregabalin 150 mg capsule 150 mg PO BID #60 caps 04/22/23 Allergies Allergy/AdvReac Type Severity Reaction Status Date / Time celecoxib Allergy Unknown Verified 04/22/23 06:58 ibuprofen [From Motrin] Allergy Unknown Verified 04/22/23 06:58 naproxen Allergy Unknown Verified 04/22/23 06:58 acetaminophen [From Tylenol] Allergy Unknown Verified 04/22/23 06:58 atorvastatin [From Lipitor] Allergy Verified 04/22/23 06:58 buspirone [From BuSpar] Allergy Unknown Verified 04/22/23 06:58 gabapentin [From Neurontin] Allergy Verified 04/22/23 06:58 sertraline [From Zoloft] Allergy Unknown Verified 04/22/23 06:58 prednisone AdvReac gingivitis Verified 04/22/23 06:58 Review of Systems Status of ROS: Reports: 6 or more systems reviewed and unremarkable except as noted in History and below [facility] Medical History Gastroesophageal reflux ?K21.9 - Gastro-esophageal reflux disease without esophagitis (ICD-10) Depression ?F32.A - Depression, unspecified (ICD-10) Cognitive impairment ?R41.89 - Other symptoms and signs involving cognitive functions and awareness (ICD-10) Substance abuse ?F19.10 - Other psychoactive substance abuse, uncomplicated (ICD-10) Chronic pain ?G89.29 - Other chronic pain (ICD-10) Intracerebral hemorrhage ?I61.9 - Nontraumatic intracerebral hemorrhage, unspecified (ICD-10) Surgical History H/O Achilles tendon repair ?Z98.890 - Other specified postprocedural states (ICD-10) History of appendectomy ?Z90.49 - Acquired absence of other specified parts of digestive tract (ICD-10) History of lumbar laminectomy ?Z98.890 - Other specified postprocedural states (ICD-10) H/O cervical spine surgery ?Z98.890 - Other specified postprocedural states (ICD-10) Family History Mother Breast cancer Diabetes Stroke Sister Breast cancer Daughter Diabetes Father Heart disease Social History Narrative: She lives in the home with roommates. She tells me that she owns the home but has been delinquent in mortgage payments and is at risk for foreclosure. She is a smoker. Smoking Status: Unknown if ever smoked Non-prescribed substance use: amphetamines/methamphetamines service: No Exam Narrative: Exam Narrative: She looks quite uncomfortable. Heavy smell of smoke. Is twitchy. Is struggling with her silicone sleeve for her left leg prosthetic. Notable on her right dorsal wrist is a 1.5 cm appears to have healed somewhat by secondary intention scabbed laceration with 2 residual sutures-she acknowledges that they should have been taken out 2 weeks ago. Mild inflammation consistent with wound reaction but no infectious changes otherwise. Mouth looks dry. She is breathing easily. Generally looks quite uncomfortable. Here with walker. Note her to be ambulatory when she gets her prosthetic in place. Three quarter-sized bruise is 1 on the right shoulder 1 the right deltoid another at the mid upper arm on the right; she says this is from falling into the chair in the last day or 2 when her leg came off. Const: Vital Signs, click to edit/add: Vital Signs - 24 hr 04/22/23 06:56 Temperature 98.0 F Pulse Rate [Right Pulse Oximeter] 81 Respiratory Rate 20 Blood Pressure [Ri ght Upper Arm] 168/89 H Pulse Oximetry 99 Oxygen Delivery Me thod Room Air Documenting provider has reviewed patient's vital signs: yes Course Vital Signs Vital signs: Initial Vital Signs Temperature 98.0 F 04/22/23 06:56 Temperature Source Temporal Artery Scan 04/22/23 06:56 Pulse Rate 81 04/22/23 06:56 Respiratory Rate 20 04/22/23 06:56 Blood Pressure 168/89 H 04/22/23 06:56 Blood Pressure Mean 115 H 04/22/23 06:56 Blood Pressure Position Sitting 04/22/23 06:56 Pulse Oximetry 99 04/22/23 06:56 Oxygen Delivery Method Room Air 04/22/23 06:56 Vital Signs Temperature 98.0 F 04/22/23 06:56 Pulse Rate 81 04/22/23 06:56 Respiratory Rate 20 04/22/23 06:56 Blood Pressure 168/89 H 04/22/23 06:56 Pulse Oximetry 99 04/22/23 06:56 Oxygen Delivery Method Room Air 04/22/23 06:56 Temperature 98.0 F 04/22/23 06:56 Pulse Rate 81 04/22/23 06:56 Respiratory Rate 20 04/22/23 06:56 Blood Pressure 168/89 H 04/22/23 06:56 Pulse Oximetry 99 04/22/23 06:56 Oxygen Delivery Method Room Air 04/22/23 06:56 Medications Administered Medications: Discontinued Medications Generic Name Dose Route Start Last Admin Trade Name Jose PRN Reason Stop Dose Admin Pregabalin 150 mg 04/22/23 07:26 04/22/23 08:03 Pregabalin 75 Mg Capsule PO 04/22/23 07:27 150 mg ONCE ONE Administration Medical Decision Making MDM Narrative Medical decision making narrative: I agree with Ms. Palencia that likely is experiencing withdrawal to Lyrica, given appearance here. I am concerned though regarding substance abuse/use history and social turmoil that surrounds her at this point. Did inquire whether not we could provide other services. This was politely declined. Can give 1 tablet of Lyrica here in the emergency department and 1 time refill of her prescription. Upon going to fill her prescription I can see that there are records indicating that she had 60 tabs filled on March 30. I go back to talk to her about this and she says that she may have taken extra or some seem to be missing. I would have concerns of housemates but also her own tendency to use. I discussed that I can now only give a week of medication in his prescription; we cannot refill this again. This will have to be discussed with the pain clinic. She seems to feel that they will be okay with this fill. I do recall earlier conversation here that Ms. Palencia had indicated that she seems to think the Lyrica was dosed b.i.d. to t.i.d. We also removed the 2 remaining sutures from right hand/wrist prior to departure. See patient discharge plan Discharge Plan Discharge Clinical Impression: Medication withdrawal Patient Disposition: Home w/ Parent or Adult Condition: Stable Additional Instructions: I anticipate you making that pain clinic follow-up visit and I would check in with your primary care provider particularly if you are having trouble getting this prescription refilled. Prescriptions: New pregabalin 150 mg capsule 150 mg PO BID Qty: 60 0RF No Action amlodipine 5 mg tablet 5 mg PO DAILY baclofen 5 mg tablet 5 mg PO TID buprenorphine-naloxone [Suboxone] 8-2 mg film 1 film sublingual DAILY oxybutynin chloride 5 mg tablet extended release 24hr 5 mg PO DAILY pantoprazole 40 mg tablet,delayed release (DR/EC) 40 mg PO BID paroxetine HCl 30 mg tablet 60 mg PO DAILY pregabalin [Lyrica] 150 mg capsule 150 mg PO BID rosuvastatin 5 mg tablet 5 mg PO HS senna 8.6 mg capsule 8.6 mg PO BID Rx Instructions: 1-4 tabs BID cephalexin 500 mg capsule 500 mg PO TID Qty: 15 0RF Follow Up/Referrals: Enrico Felton DO [Primary Care Provider] - Stand Alone Forms: [employer] Info Instructions
[2023-04-22] MEDS: PREGABALIN 75 MG CAPSULE 150 MG PO (08:03)
--- NOTE | 2023-04-22 08:09 | ED.NURSE ---
Dr. Villegas went back into room to talk with patient.
--- NOTE | 2023-04-22 08:16 | ED.NURSE ---
Patient had Lyrica filled on 03/30/23 at [facility] and informed Dr. Villegas of this. Given a script for 2 weeks worth of Lyrica.
== END 2023-04-22 08:19 | disposition home or self-care (01) ==
PROVIDERS: Emergency Provider Family Medicine; PCP Family Medicine
DX: F19.239 Other psychoactive substance dependence with withdrawal, unspecified (principal)
CPT/HCPCS: 99283; 99284

== ENCOUNTER 2023-11-20 09:38 | Outpatient (RCR) | payer SELFPAY | END 2024-11-16 23:59 | disposition home or self-care (01) | LOC: MOW 09:38 | PROVIDERS: PCP Family Medicine; Visit Provider Family Medicine | DX: Z76.0 Encounter for issue of repeat prescription (principal) | CPT/HCPCS: S5170 ==

== ENCOUNTER 2023-12-11 23:35 | Outpatient (CLI) | payer MEDICARE, SELFPAY ==
--- OUTSIDE RECORDS SUMMARY | 2023-12-15 01:40 | XMS_ITS | Continuity of Care Document ---
Author Organization [facility] Address [address] [address] [place] [address] Phone Care Team Providers Care Scenery Builder Name Role Phone Ana Lieberman MD Unavailable Unavaila ble Procedures Procedure Date Init Hosp-da E&m Mod Severity 8 Advance Directives Directive Yes / No Effective Date File Name No Information Encounters Encounter Description Practice Location Reason(s) For Visit Diagnoses Date Provider Providers Copied on Encounter [facility], [address] [address], [place], [place], [id number], [place] tel:[phone] [facility] No Information Luisana Bill [address] [facility] [place] [address], [place], [place], [id number], [place]. tel:[phone] Init Hosp-da E&m Mod Severity [facility], [address] [address], [place], [place], [id number], [place] tel:[phone] [facility] No Information Luisana Bill [address] [facility], [facility] [address], [place], [place], [id number], [place]. tel:[phone] Referring Provider: Ana Lieberman MD, [address] [facility] [address], [place], [address] . tel:[phone] Family History Family Member Type Diagnosis Age At Onset No Information Payers Payer name Insurance type Covered constitution party ID Authoriza tion(s) No Information Social [...]
--- OUTSIDE RECORDS SUMMARY | 2023-12-15 01:40 | XMS_ITS | Continuity of Care Document ---
Author Organization [facility] Address [address] [place] [address] Phone Care Team Providers Care Accounts Supervisor Name Role Phone Unavailable Unavailable Unavailable Allergies, [...] mouth daily (1T PO QD) - Active cyanocobalamin (vit B-12) 1,000 mcg tablet take 1 by Oral route every day 1 - Active lovastatin 20 mg tablet take 1 tablet by oral route every day with the evening meal 20 MG - Active Zocor 20 mg Tab 1 Capsule by mouth at bedtime (1CAP PO HS) - No Longer Active METHADONE HCL 10MGTABLET Take one tablet by mouth every six hours (1T PO Q6H) - No Longer Active OxyContin 40 mg 12 hr Tab Take one capsule by mouth every twelve hours (1CAP PO Q12H) - No Longer Active Klonopin 0.5 mg Tab Take two tablets by mouth three times per day (2T PO TID) - No Longer Active Prilosec 20 mg Cap Take one capsule by mouth daily (1CAP PO QD) - No Longer Active oxycodone 10 mg tablet take 1 tablet by oral route every 6 hours as needed for post surgical pain 10 MG - No Longer Active Bactrim DS 800 mg-160 mg tablet take 1 tablet by oral route every 12 hours 1.00 tablet - No Longer Active prednisone 10 mg tablet take 1 tablet by oral route 2 times every day 10 MG - No Longer Active clonazepam 1 mg tablet take 1 tablet by oral route 2 times every day 1 MG - No Longer Active Procedures Procedure [...] Encounter New Pt Eval 45 Min [facility], [address], [place], [place], [id number], [place] tel:[phone] [facility] No Information 4 No Information Referring Provider: Cooper Maria MD, [place], [address]. tel:[phone] Offic/outpt E&m Estab Mod-hi 4 [facility], [facility], [address], [id number], [place] tel:[phone] [facility] No Information 2 Caleb Brothers. [address], [facility] [address], [place], [id number], [place]. tel:[phone] Referring Provider: Cooper Maria MD, [address] [place], [address]. tel:[phone] [facility], [facility], [address] [facility] [address], [place], [id number], [place] tel:[phone] [facility] [address] No Information 0 0 Skip Woody. [address] [facility] [address], [place], [id number], [place]. tel:[phone] Referring Provider: Cooper Maria MD, [address] [place], [address]. tel:[phone] Est Pt Eval 25 Min [facility], [facility], [address] [facility] [address], [place], [id number], [place] tel:[phone] [facility] No Information 0 RN RN. [address] [facility] [address], [place], [id number], [place]. tel:[phone] Referring Provider: Cooper Maria MD, [address] [place], [address]. tel:[phone] Offic/outpt E&m Estab Mod-hi 2 [facility], [facility], [address] [facility] [address], [place], [id number], [place] tel:[phone] [facility] No Information 0-201 0 Abdiel Ng. [address] [place], [address], [place]. Referring Provider: Cooper Maria MD, [address] [place], [address]. tel:[phone] Offic Cons New/estab Mod-hi 60 [facility], [facility], [address] [facility] [address], [place], [place], [id number], [place] tel:[phone] [facility] No Information 0 Abdiel Ng. [address] [place], [address], [place]. Referring Provider: Cooper Maria MD, [address] [place], [address]. tel:[phone] [facility], [address] [facility] [address], [place], [id number], tel:[phone] [facility] No Information 0 Regino Pang. [address] [facility] [address], [place], [id number], [place]. tel:[phone] Referring Provider: Cooper Maria MD, [address] [place], [address]. tel:[phone] Family History Family Member Type Diagnosis Age At Onset N/A Problem (finding) spinal degeneration N/A Problem (finding) back pain Payers Payer name Insurance type Covered democrat ID Authoriza tion(s) No Information Social History [...]
--- OUTSIDE RECORDS SUMMARY | 2023-12-15 01:41 | XMS_ITS | Encounter Summary ---
Author Organization [facility] Address [address] [place] [address] Care Team Providers Care Ethnoarchaeologist Name Role Phone Edu Crawford DPBharath Unavailable [phone] Maddie Mae Unavailable Unavailable Enrico Felton DO Primary Care Provider [phone] Wendy Agustin APRN SAVINGS TELLER Unavailable [phone] Reason for Referral * Diagnostic Imaging Ultrasound (Routine) - Pending Review Specialty Diagnoses / Procedures Referred By Contac t Referred To Contact Radiology. 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) Procedures US MCKAYLA Doppler No Exercise 1-2 Levels Right Andreas Montenegro APRN SAVINGS TELLER [address] [place] [address] Referral ID Status Reason Start Date Expiration Date V isits Requested Visits Authorized [id number] Pending Review 11/14/2023 11/13/2024 1 1 Encounter Details Date Type Department Care Team (Latest Contact Info) Description 11/26/2023 1:53 PM CDT - 11/26/2023 11:59 PM CDT Hospital Encounter [facility] [address] [facility] [address] [place] [address] Andreas Montenegro W, LIGHT COIL WINDER SAVINGS TELLER [address] [place] [address] Neuropathic ulcer of right foot with fat [...] Never 02/20/2022 How often do you attend anglican or worship serv ices? Patient declined 02/20/2022 Do you belong to any clubs o r organizations such as anglican groups, unions, fraternal or athletic groups, or [...] Answer Date Recorded PHQ-2 Score 1 09/13/2023 [facility] - Occupational Stress Questionnaire Answer Date [...] place to sleep or slept in a fci (including now)? No 02/20/2022 Adolescent Education Answer [...] 11/14/2023 PARoxetine (PAXIL) 30 MG tabletIndications:[facility],Anxiety and depression Take 2 tablets (60 mg) [...] acid (FOLVITE) 1 MG tabletIndications:Mild protein-calorie malnutrition (H) Take 1 tablet (1 mg) by mouth [...] 4 02/20/2022 11/28/2023 pregabalin (LYRICA) 150 MG capsuleIndications:[facility] Take 1 capsule (150 mg) by mouth 2 times daily for 30 days 60 capsule 10/25/2021 11/28/2023 rosuvastatin (CRESTOR) 5 MG tabletIndications:Hyperli pidemia with target LDL less than 100 Take 1 tablet (5 mg) by mouth daily 90 tablet 3 03/20/2022 11/28/2023 thiamine (B-1) 100 MG tabletIndications:Mild protein-calorie malnutrition (H) Take 1 tablet (100 mg) by mouth daily 30 tablet 09/18/2022 11/28/2023 documented as of this encounter Plan of Treatment Upcoming Encounters Date Type Department Care Team (Late st Contact Info) Description 12/21/2023 2:00 PM CDT Appointment [facility] [address] [place] [address] Kingsley Westbrook, DPBharath [address] [place], [place] [address] documented as of this encounter Goals Goal Patient Goal Type Associated Problems Recent Progress Patient-Stated? Author Financial Wellbeing General Yes Rosey Alexander, AGRICULTURAL TECHNICAL OFFICER documented as of this encounter Procedures Procedure [...] MORTON MD Narrative 11/26/2023 2:44 PM CDT [facility] DATE: 11/26/2023 EXAM: RESTING ANKLE-BRACHIAL INDICES [...] Procedure Note Jez Morton MD - 11/26/2023 [facility] DATE: 11/26/2023 EXAM: RESTING ANKLE-BRACHIAL INDICES [...] waveforms. 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) documented in this encounter Additional Health Concerns Infection Onset Date Last Indicated Resolved Time 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 per 09/01/16 data management manager note; left foot tissue 10/08/16 10/11/2018 02/27/2019 Assessment Noted Time PHQ-9 Depression Total Score: 1 09/13/19 24 10:02 AM CDT documented as of this encounter Care Teams Ethnoarchaeologist Relationship Specialty [place] [address] [place] [address] PCP - General Family Medicine 06/30/22 Edu Crawford D[place] [address] [facility] [address] [place], [place] [id number] Podiatry 10/18/16 Maddie Mae Personal Advocate & Liaison (PAL) Family Medicine 12/28/21 Wendy Agustin APRN SAVINGS TELLER [address] [place], [place] [id number] Assigned PCP 10/09/23 documented as of this encounter
--- OUTSIDE RECORDS SUMMARY | 2023-12-15 01:41 | XMS_ITS | Encounter Summary ---
Author Organization [facility] Address [address] [place] [address] Care Team Providers Care Thread Puller Name Role Phone Edu Crawford DPM Unavailable [phone] Maddie Mae Unavailable Unavailable Enrico Felton DO Primary Care Provider [phone] Wendy Agustin APRN PYTHON ENGINEER Unavailable [phone] Encounter Details Date Type Department Care [...] re latives? Once a week 11/28/2023 Attends Sikh Services Not on file 11/27 Active Member [...] Answer Date Recorded PHQ-2 Score 1 11/28/2023 [facility] - Occupational Stress Questionnaire Answer Date [...] CDT Appointment [facility] [place] [address] [place] [address] Kingsley Westbrook DPM [address] [place], [place] [address] documented as of this encounter Goals Goal Patient Goal Type Associated Problems Recent Progress Patient-Stated? Author Financial Wellbeing General Yes Rosey Alexander, CASING IN LINE FEEDER documented as of this encounter Visit Diagnoses Not on filedocumented in this encounter Additional Health Concerns Infection Onset Date Last Indicated Resolved Time 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 per 09/01/16 clinical nurse note; left foot tissue 10/08/16 10/11/2018 02/27/2019 Assessment Noted Time PHQ-9 Depression Total Score: 1 11/28/19 24 1:52 PM CDT documented as of this encounter Care Teams Thread Puller Relationship Specialty [place] [address] [place] [address] PCP - General Family Medicine 06/30/22 Edu Crawford DPM [address] [facility] [address] [place] [address] Podiatry 10/18/16 Maddie Mae Personal Advocate & Liaison (PAL) Family Medicine 12/28/21 Wendy Agustin APRN PYTHON ENGINEER [address] [place], [place] [address] Assigned PCP 10/09/23 documented as of this encounter
--- OUTSIDE RECORDS SUMMARY | 2023-12-15 01:41 | XMS_ITS | Continuity of Care Document ---
Author Organization [facility] Address [address] [place] [address] Phone Care Team Providers Care Dry Dip Worker Name Role Phone Unavailable Unavailable Unavailable Procedures Procedure Date Office/outpatient visit,[facility] 2010 Advance Directives Directive Yes / No Effective Date File Name No Information Encounters Encounter Description Practice Location Reason(s) For Visit Diagnoses Date Provider Providers Copied on Encounter [facility] [place], [address] [place] [address], [facility], tel:[phone] [employer] No Information 0 2-201 1 No Information Office/outpat ient visit,[facility], [facility], [address] [place] [address], [place], [place], [facility], tel:[phone] [employer] No Information Aug-0 2-201 1 Jose M Loganothy. [facility] [place], [address], [address], [id number], . tel:[phone] Referring Provider: Cooper Maria, [address], [address]. tel:[phone] Family History Family Member Type Diagnosis Age At Onset No Information Payers Payer name Insurance type Covered alliance party ID Authoriza tielif(s) [place] [id number] [facility] [id number] [id number] Social History Type Description Quantity Date Captured [...]
--- OUTSIDE RECORDS SUMMARY | 2023-12-15 01:41 | XMS_ITS | Encounter Summary ---
Author Organization [facility] Address [facility] [place] [address] Care Team Providers Care Mellowing Machine Operator Name Role Phone Edu Crawford DPM Unavailable [phone] Maddie Mae Unavailable Unavailable Enrico Felton DO Primary Care Provider [phone] Wendy Agustin APRN COMPUTER LAB PARA PROFESSIONAL Unavailable [phone] Encounter Details Date Type Department Care Team (Late st Contact Info) Description 11/14/2023 Telephone [facility] [place] [address] [facility] [address] [place] [address] Andreas Montenegro, LIBRARIAN HELPER COMPUTER LAB PARA PROFESSIONAL [address] [place], [place] [phone] Social History Tobacco Use Types Packs/Day Years [...] Never 02/20/2022 How often do you attend sabianist or holiness serv ices? Patient declined 02/20/2022 Do you belong to any clubs o r organizations such as sabianist groups, unions, fraternal or athletic groups, or [...] Answer Date Recorded PHQ-2 Score 1 09/13/2023 [facility] - Occupational Stress Questionnaire Answer [...] in a custodial (including now)? No 02/20/2022 Adolescent Education Answer [...] wound nurse to alert charge nurse or front counter attendant staff who willcall Vein front counter attendant at [phone] and/or Vascular schedulers [phone] to schedule the testing needed and coordinated wound clinic visit. The dressing can always be removed if testing is ordered. Please include in the order to be scheduled by [facility] or [facility], whichever is appropriate. Route to [facility] and/or [facility] scheduling pools. If the patient is a BEATRIZ lift, route to clinical safety manager and charge nurse. They will help to get the patient scheduled at the appropriate place. Routing to [facility] Appointment Scheduling Pool for MCKAYLA/arterial duplex orders Andreas Montenegro CNP documented in this encounter Plan of Treatment Upcoming Encounters Date Type Department Care Team (Late st Contact Info) Description 12/21/2023 2:00 PM CDT Appointment [facility] [address] [place] [address] Kingsley Westbrook DPM [address] [place] [id number] documented as of this encounter Goals Goal Patient Goal Type Associated Problems Recent Progress Patient-Stated? 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 per 09/01/16 dairy chemist note; left foot tissue 10/08/16 10/11/2018 02/27/2019 Assessment Noted Time PHQ-9 Depression Total Score: 1 09/13/19 24 10:02 AM CDT documented as of this encounter Care Teams Mellowing Machine Operator Relationship Specialty [place] [address] [place] [address] PCP - General Family Medicine 06/30/22 [place] [address] [facility] [address] [place] [address] Podiatry 10/18/16 Maddie Mae Personal Advocate & Liaison (PAL) Family Medicine 12/28/21 Wendy Agustin APRN COMPUTER LAB PARA PROFESSIONAL [address] [facility] [address] [place], [place] [address] Assigned PCP 10/09/23 documented as of this encounter
--- OUTSIDE RECORDS SUMMARY | 2023-12-15 01:41 | XMS_ITS | Clinical Summary ---
Author Organization [facility] Address [address] [place] [address] Care Team Providers Care Scientific Programmer Name Role Phone Edu Crawford DPM Unavailable [phone] Maddie Mae Unavailable Unavailable Enrico Felton DO Primary Care Provider [phone] Wendy Agustin APRN DIRT SUPERVISOR Unavailable [phone] Allergies Active Allergy Reactions Criticality Noted [...] Date Status PARoxetine (PAXIL) 30 MG tabletIndications:[facility],Anxiety and depression Take 2 tablets (60 mg) [...] (B-1) 100 MG tabletIndications:M ild protein-calorie malnutrition (H) Take 1 tablet (100 mg) by mouth daily 30 tablet 09/18/2022 4 Discontinued( Med Rec(No AVS / No eCancel)) folic acid (FOLVITE) 1 MG tabletIndications:M ild protein-calorie malnutrition (H) Take 1 tablet (1 [...] Diagnosed Date Resolved Date Acute renal failure 09/10/2022 11/14/19 24 Intraparenchymal hemorrhage of brain 09/27/2021 11/14/2023 ICH (intracerebral hemorrhage) 09/17/2021 11/14/2023 Ulcer of right foot with necrosis of bone 02/17/2019 11/14/2023 Osteomyelitis of fifth toe of right foot 02/17/2019 11/14/2023 Overview: Added automatically from request for surgery [id number] Osteomyelitis 10/10/2018 11/14/2023 Non-ST elevation (NSTEMI) my ocardial infarction 05/03/2017 11/14/2023 Acute respiratory failure with hypoxia 04/09/2017 11/14/2023 Type 2 diabetes, HbA1C goal < 8% 06/26/2013 03/06/2017 Health Custodial 05/07/2013 09/03/2023 Overview: EMERGENCY CARE PLAN Presenting Problem Signs and Symptoms Treatment Plan Questions or concerns during clinic hours I will call the clinic directly Questions or concerns outside clinic hours I will call the 24 hour nurse line at [phone] Patient needs to schedule an appointment I will call the 24 hour scheduling team at [phone] or clinic directly Same day treatment I [...] Description 11/28/2023 2:00 PM CDT Office Visit [address] [address] Enrico Felton DO Encounter for [...] - 11/26/2023 11:59 PM CDT Hospital Encounter [facility] [id number] [place] [address] [address] [place] [phone] Andreas Montenegro APRN DIRT SUPERVISOR 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) Discharge Disposition: Home or Self Care 11/26/2023 Travel 11/14/2023 10:10 AM CDT - 11/14/2023 11:59 PM CDT Hospital Encounter [facility] [place] [address] [place] [phone] Andreas Montenegro APRN DIRT SUPERVISOR 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) (Primary Dx) Discharge Disposition: Home or Self Care 11/14/2023 Telephone [facility] [place] [address] [place] [phone] Andreas Montenegro APRN DIRT SUPERVISOR 11/14/2023 Travel 10/30/2023 MyC Medical Advice [facility] [address] [place] [address] Enrico Felton DO 10/30/2023 Telephone [facility] [address] [place] [address] Enrico Felton DO Prior Auth - Medication (ondansetron (ZOFRAN) 4 MG tablet -EPA DENIED) 10/30/2023 [facility] Medical Advice [facility] [address] [place] [address] Enrico Felton DO 10/30/2023 Refill [facility] [address] [place] [address] Enrico Felton DO Refill Request 10/09/2023 [facility] Medical Advice [facility] [address] [place] [address] Melida Pickering CMA 10/08/2023 Telephone [facility] [address] [place] [address] Enrico Felton DO Panel Management (mammo) 09/28/2023 [facility] Medical Advice [facility] [address] [place] [address] Melida Pickering, JAYCEE 09/28/2023 Telephone [facility] [address] [place] [address] Enrico Felton DO Panel Management (pap) from Last 3 Months Immunizations Name Administration [...] re latives? Once a week 11/28/2023 Attends [employer] Not on file 11/27 Active Member [...] Answer Date Recorded PHQ-2 Score 1 11/28/2023 [facility] - Occupational Stress [...] Info) Description 12/21/2023 2:00 PM CDT Appointment [facility] [place] [address] [place] [address] Kingsley Westbrook, GAYLA [address] [place], [place] [address] Health Maintenance Due Date Last Done Comments CT COLONOGRAPHY 1962 FLEX SIG 1962 sDNA (Cologuard) 1962 COLONOSCOPY 1972 HEPATITIS A IMMUNIZATION (1 of 2 - Risk 2-dose series) 1981 COLORECTAL CANCER SCREENING 07/19/2019 FIT 07/19/2019 07/18/2018, 08/18, 01/16/2013 HPV TEST 08/22/2021 08/22/2016 PAP 08/22/2021 08/22/2016, 03/2011, 01/30/2008 LUNG CANCER SCREENING 12/04/2021 12/04/2020, [...] ORDERS 11/27/202411/27, 02/20/2022, 02/16/2020 BMP 11/27/2024 11/28/2023, 07/0 04/2022, 09/16/2022, Additional history exists LIPID 11/27/2024 11/28/2023, 120 07/2021, 06/21/2018, Additional history exists MEDICARE ANNUAL WELLNESS VISIT 11/27/2024 11/28/2023, 02/20/2022, 06/21/2018, Additional history exists GLUCOSE 11/27/2026 11/28/2023, 07/0 04/2022, 09/16/2022, Additional history exists ADVANCE CARE [...] Author Financial Wellbeing General Yes Rosey Alexander, TRAVEL SERVICES PROFESSIONAL Procedures Procedure Name Priority Date/Time Associated Diagnosis [...] ANTIGEN ANTIBODY COMBO Routine 02/20/2022 3:46 PM GRID CASTER Screening for HIV (human immunodeficiency virus) CT CHEST W CONTRAST STAT 12/04/2020 3:48 PM CDT MA SCREENING BILATERAL W/ AMILCAR Routine 09/07/2020 1:02 PM CDT Screening mammogram for high-risk patient FECAL COLORECTAL CANCER SCREEN FIT Routine 07/18/2018 9:00 AM CDT Screen for colon cancer HEPATITIS C ANTIBODY Routine 04/05/2017 6:35 AM GRID CASTER HPV HIGH RISK TYPES DNA CERVICAL Routine [...] LAB - BLOOD ORDERABL ES [facility] [facility] [address] [facility], [address] [place] [address], [facility] * (ABNORMAL) Hemoglobin A1c (11/28/2023 2:56 PM CDT) Hemoglobin A1C 6.1(H) 0.0 - 5.6 % 11/28/2023 3:03 PM CDT [facility] Comment: Normal <5.7% Prediabetes 5.7-6.4% ?? Diabetes 6.5% or higher Note: Adopted from ADA consensus guidelines. Blood BLOOD SPECIMEN / Unknown Venipuncture / Unknown 11/28/2023 2:56 PM CDT 11/28/2023 2:56 PM CDT Enrico Felton LAB - BLOOD ORDERABL ES Performing Organization Address [facility]/ZIP Co de Phone Number [facility] [address] [facility] Lab (no room number, 1st floor of clinic) [place] [address], [facility] * (ABNORMAL) Basic metabolic panel [...] 1:56 PM CDT [facility] Comment:eGFR calculated 2020 CKD-EPI equation. Calcium 9.0 8.8 - [...] LAB - BLOOD ORDERABL ES [facility] [facility] [address] [facility], [address] [place] [address] * US MCKAYLA Doppler No Exercise 1-2 Levels Right (11/26/2023 2:12 PM CDT) Anatomical Region Laterality Modality Extremity Ultrasound Impressions 11/26/2023 2:44 PM CDT IMPRESSION: RIGHT LOWER EXTREMITY: MCKAYLA at rest is normal. Multiphasic tibial waveforms. JEZ MORTON MD Narrative 11/26/2023 2:44 PM CDT [facility] DATE: 11/26/2023 EXAM: RESTING ANKLE-BRACHIAL INDICES [...] tibial and dorsalis pedis arteries. Procedure Note Jze Morton MD - 11/26/2023 [facility] DATE: 11/26/2023 EXAM: RESTING ANKLE-BRACHIAL INDICES [...] tibial waveforms. JEZ MORTON MD Andreas Montenegro CLIENT RELATIONS ASSOCIATE DIRT SUPERVISOR IMG US ORDERAB LES * HIV Antigen Antibody Combo (02/20/2022 3:46 PM GRID CASTER) HIV Antigen Antibody Combo Nonreactive Nonreactive 02/21/2022 5:16 PM [facility] SPECIALTY CORE/PROT/EN DO Comment:HIV-1 p24 Ag & HIV-1 /HIV-2 Ab Not Detected Blood STRUCTURE OF LEFT UPPER LIMB / Unknown Venipuncture / Unknown 02/20/2022 3:46 PM GRID CASTER 02/20/2022 3:47 PM GRID CASTER Enrico Felton DO LAB - BLOOD ORDERABL ES [facility]/PROT/ENDO [facility]/Prot/Endo [address] [facility] [address], [address] [place] [address], [facility] [phone] * CT Chest w Contrast (12/04/2020 3:48 [...] osseous pathology. ADRY ALBERT MD SYSTEM ID: ??[id number] Narrative 12/04/2020 4:[address] CHEST [...] osseous pathology. ADRY ALBERT MD SYSTEM ID: [id number] Cooper Waters MD IMG CT ORDERABLES * [...] MD Enrico Felton DO IMG MAMMOGRAPHY DANIELLE CASTILOL * Fecal colorectal cancer screen FIT - Future (S+30) (07/18/2018 9:00 AM CDT) Occult Blood Scn FIT Negative NEG^Negati ve 07/19/2018 9:39 PM CDT [facility] Stool specimen (specimen) 07/18/2018 9:00 AM CDT 07/19/2018 8:00 PM CDT Madhuri Deleon APRN DIRT SUPERVISOR LAB - STOO LS ORDERABLES Performing Organization Address City/[facility]/ZIP Co de Phone Number [address] [address] * Hepatits C antibody (04/05/2017 6:35 AM GRID CASTER) Hepatitis C Antibody Nonreactive NR^Nonre active 04/05/2017 4:01 PM GRID CASTER [facility] Comment: Assay performance characteristics have not been established for newborns, infants, and children Blood specimen (specimen) 04/05/2017 6:35 AM GRID CASTER 04/05/2017 6:59 AM GRID CASTER Ana Lieberman MD LAB - BLOOD O RDERABLES Performing Organization Address City/[facility]/ZIP Co de Phone Number [address] [address] * HPV High Risk Types DNA Cervical (08/22/2016 2:30 PM CDT) HPV 16 DNA Negative [facility] HPV 18 DNA Negative NEG [facility] Other HR HPV Negative NEG [facility] Final Diagnosis This patient's sample is negative [...] and its performance characteristics determined by the [facility], Molecular Diagnostics Laboratory. It has not been cleared or approved by the FDA. The laboratory is regulated under CLIA as qualified to perform high-complexity testing. This test is used for clinical purposes. It should not be regarded as investigational or for research. [facility] Specimen Description Cervical Cells [id number] [facility] 08/22/2016 2:30 PM CDT 08/22/2016 2:35 PM CDT Madhuri Deleon APRN DIRT SUPERVISOR LAB - BLOO D ORDERABLES [facility] [address] [place] [address] * Pap imaged thin layer screen with HPV - recommended age 30 - 65 years (select HPV order below) (08/22/2016 2:29 PM CDT) PAP MEHNAZ Arita Report Patient Name: JATINDER DE LA PAZ MR#: [id number] Specimen #: [id number] Collected: 08/22/2016 Received: 08/24/2016 Reported: 08/28/2016 10:33 [...] BRENNA Hong (ASCP) Processed and screened at [facility], [facility] CLINICAL HISTORY: LMP: 09/10/2012 Post Menopausal, Previous normal pap Date of Last Pap: 01/18/2012, Papanicolaou Test Limitations: ??Cervical cytology is a screening test with limited sensitivity; regular screening is critical for cancer prevention; Pap tests are primarily effective for the diagnosis/preventi on of squamous cell carcinoma, not adenocarcinomas or other cancers. TESTING LAB LOCATION: [address] ??[address] COLLECTION SITE: Client: ??[facility] Location: [facility] Cytologic material (specimen) 08/22/2016 2:29 PM CDT 08/24/2016 11:02 AM CDT Madhuri Deleon CLIENT RELATIONS ASSOCIATE DIRT SUPERVISOR LAB - OPTI CA CLINICAL SPECIMEN COPATH from Last 3 Months or Most Recently Relevant to Health Maintenance Additional Health Concerns Infection Onset Date Last Indicated 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 per 09/01/16 brace maker note; left foot tissue 10/08/16 10/11/2018 02/27/2019 Advance Directives For more information, please contact: [phone] * Full Code (Latest Code Status on [...] with patie nt/legal decision maker Care Teams Scientific Programmer Relationship Specialty [place] [address] [place] [address] PCP - General Family Medicine 06/30/22 Edu Crawford DPM [address] [facility] [address] [place], [place] [phone] Podiatry 10/18/16 Maddie Mae Personal Advocate & Liaison (PAL) Family Medicine 12/28/21 Wendy Agustin APRN DIRT SUPERVISOR [address] [place], [place] [phone] Assigned PCP 10/09/23
--- OUTSIDE RECORDS SUMMARY | 2023-12-15 01:41 | XMS_ITS | Encounter Summary ---
Author Organization [facility] Address [address] [place] [address] Care Team Providers Care Capacity Analyst Name Role Phone Edu Crawford DPBharath Unavailable [phone] Maddie Mae Unavailable Unavailable Enrico Felton DO Primary Care Provider [phone] Wendy Agustin APRN POPPED CORN OVEN ATTENDANT Unavailable [phone] Encounter Details Date Type Department Care [...] How often do you attend mandaeism or buddhism serv ices? Patient declined 02/20/2022 Do you [...] Answer Date Recorded PHQ-2 Score 1 09/13/2023 [facility] Occupational Stress Questionnaire Answer Date [...] place to sleep or slept in a penitentiary (including now)? No 02/20/2022 Adolescent Education Answer [...] Info) Description 12/21/2023 2:00 PM CDT Appointment [facility] [address] [place] [phone] Kingsley Westbrook DPM [address] [place] [phone] documented as of this encounter Goals Goal Patient Goal Type Associated Problems Recent Progress Patient-Stated? Author Financial Wellbeing General Yes Rosey Alexander, FLEA MARKET SELLER documented as of this encounter Visit Diagnoses Not on filedocumented in this encounter Additional Health Concerns Infection Onset Date Last Indicated Resolved Time 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 per 09/01/16 school fundraising director note; left foot tissue 10/08/16 10/11/2018 02/27/2019 Assessment Noted Time PHQ-9 Depression Total Score: 1 09/13/19 24 10:02 AM CDT documented as of this encounter Care Teams Capacity Analyst Relationship Specialty [place] [address] [place] [address] PCP - General Family Medicine 06/30/22 Edu Crawford DPM [address] [facility] [address] [place] [address] Podiatry 10/18/16 Maddie Mae Personal Advocate & Liaison (PAL) Family Medicine 12/28/21 Wendy Agustin APRN POPPED CORN OVEN ATTENDANT [address] [facility] [address] [place] [address] Assigned PCP 10/09/23 documented as of this encounter
--- OUTSIDE RECORDS SUMMARY | 2023-12-15 01:41 | XMS_ITS | Referral Summary ---
Author Organization [facility] Address [address] [place] [address] Care Team Providers Care Physical Science Professor Name Role Phone Edu Crawford DPBharath Unavailable [phone] Maddie Mae Unavailable Unavailable Enrico Felton DO Primary Care Provider [phone] Wendy Agustin APRN SHAVING MACHINE OPERATOR Unavailable [phone] Encounters Date Type Department Care Team Description 11/28/2023 Travel 11/28/2023 2:00 PM CDT Office Visit [address] [address] Enrico Felton DO Encounter for [...] - 11/26/2023 11:59 PM CDT Hospital Encounter [facility] [address] [facility] [address] [place] [address] Andreas Montenegro APRN SHAVING MACHINE OPERATOR 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) Discharge Disposition: Home or Self Care 11/14/2023 Telephone [facility] [address] [place] [phone] Andreas Montenegro, WANDY SHAVING MACHINE OPERATOR 11/14/2023 Travel 11/14/2023 10:10 AM CDT - 11/14/2023 11:59 PM CDT Hospital Encounter [facility] [address] [place] [phone] Andreas Montenegro, DEVELOPMENTAL MATHEMATICS PROFESSOR SHAVING MACHINE OPERATOR 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) (Primary Dx) Discharge Disposition: Home or Self Care 10/30/2023 MyC Medical Advice [facility] [address] [place] [phone] Enrico Felton DO 10/30/2023 Telephone [facility] [address] [place] [phone] Enrico Felton DO Prior Auth - Medication (ondansetron (ZOFRAN) 4 MG tablet -EPA DENIED) 10/30/2023 MyC Medical Advice [facility] [address] [place] [phone] Enrico Felton DO 10/30/2023 Refill [facility] [address] [place] [phone] Enrico Felton DO Refill Request 10/09/2023 MyC Medical Advice [facility] [address] [place] [phone] Melida Pickering CMA 10/08/2023 Telephone [facility] [address] [place] [address] Enrico Felton DO Panel Management (mammo) 09/28/2023 MyC Medical Advice [facility] [address] [place] [phone] Melida Pickering, ENGINEERING JOB TITLES 09/28/2023 Telephone [facility] [address] [place] [address] Enrico Felton DO Panel Management (pap) from Last 3 Months Allergies Active Allergy [...] Date Status PARoxetine (PAXIL) 30 MG tabletIndications:H [facility],Anxiety and depression Take 2 tablets (60 mg) [...] Overview: Added automatically from request for surgery [id number] Osteomyelitis 10/10/2018 11/14/2023 Non-ST elevation (NSTEMI) my ocardial infarction 05/03/2017 11/14/2023 Acute respiratory failure with hypoxia 04/09/2017 11/14/2023 Type 2 diabetes, HbA1C goal < 8% 06/26/2013 03/06/2017 Health Long Term 05/07/2013 09/03/2023 Overview: EMERGENCY CARE PLAN Presenting Problem Signs and Symptoms Treatment Plan Questions or concerns during clinic hours I will call the clinic directly Questions or concerns outside clinic hours I will call the 24 hour nurse line at [phone] Patient needs to schedule an appointment I will call the 24 hour scheduling team at [phone] or clinic directly Same day treatment I [...] re latives? Once a week 11/28/2023 Attends [employer] Not on file 11/27 Active Member [...] Answer Date Recorded PHQ-2 Score 1 11/28/2023 [facility] [...] in an abandoned building, in an overnight care home, or couch-surfing.) Yes 11/28/2023 Are you worried [...] [facility] [place] [address] [place] [address] Kingsley Westbrook DPM [address] [place], [place] [address] Goals Goal Patient Goal Type Associated Problems Recent Progress Patient-Stated? Author Financial Wellbeing General Yes Rosey Alexander, MANAGEMENT RETAIL INTERN Procedures Procedure Name Priority Date/Time Associated Diagnosis [...] ANTIGEN ANTIBODY COMBO Routine 02/20/2022 3:46 PM ELECTRICAL POWER ENGINEER Screening for HIV (human immunodeficiency virus) CT CHEST W CONTRAST STAT 12/04/2020 3:48 PM CDT MA SCREENING BILATERAL W/ AMILCAR Routine 09/07/2020 1:02 PM CDT Screening mammogram for high-risk patient FECAL COLORECTAL CANCER SCREEN FIT Routine 07/18/2018 9:00 AM CDT Screen for colon cancer HEPATITIS C ANTIBODY Routine 04/05/2017 6:35 AM ELECTRICAL POWER ENGINEER HPV HIGH RISK TYPES DNA CERVICAL Routine [...] LAB - BLOOD ORDERABL ES [facility] [place] [facility] [address] [facility], Room [address] [place] [phone] * (ABNORMAL) Hemoglobin A1c (11/28/2023 2:56 PM CDT) Hemoglobin A1C 6.1(H) 0.0 - 5.6 % 11/28/2023 3:03 PM CDT [facility] Comment: Normal <5.7% Prediabetes 5.7-6.4% ?? Diabetes 6.5% or higher Note: Adopted from ADA consensus guidelines. Blood BLOOD SPECIMEN / Unknown Venipuncture / Unknown 11/28/2023 2:56 PM CDT 11/28/2023 2:56 PM CDT Enrico Correae LAB - BLOOD ORDERABL ES [facility] [place] [facility] [address] [facility] Lab (no room number, 1st floor of clinic) [place] [address], [facility] * (ABNORMAL) Basic metabolic panel (11/28/2023 [...] LAB - BLOOD ORDERABL ES [facility] [place] [facility] [address] [facility], [address] [phone] * US MCKAYLA Doppler No Exercise 1-2 Levels Right (11/26/2023 2:12 PM CDT) Anatomical Region Laterality Modality Extremity Ultrasound Impressions 11/26/2023 2:44 PM CDT IMPRESSION: RIGHT LOWER EXTREMITY: MCKAYLA at rest is normal. Multiphasic tibial waveforms. JEZ MORTON MD Narrative 11/26/2023 2:44 PM CDT [facility] DATE: 11/26/2023 EXAM: RESTING ANKLE-BRACHIAL INDICES [...] Procedure Note Jez Morton MD - 11/26/2023 [facility] DATE: 11/26/2023 EXAM: RESTING ANKLE-BRACHIAL INDICES [...] tibial waveforms. JEZ MORTON MD Andreas Montenegro DEVELOPMENTAL MATHEMATICS PROFESSOR SHAVING MACHINE OPERATOR IMG US ORDERAB LES * HIV Antigen Antibody Combo (02/20/2022 3:46 PM ELECTRICAL POWER ENGINEER) HIV Antigen Antibody Combo Nonreactive Nonreactive 02/21/2022 5:16 PM ELECTRICAL POWER ENGINEER [facility] DO Comment:HIV-1 p24 Ag & HIV-1 /HIV-2 Ab Not Detected Blood STRUCTURE OF LEFT UPPER LIMB / Unknown Venipuncture / Unknown 02/20/2022 3:46 PM ELECTRICAL POWER ENGINEER 02/20/2022 3:47 PM ELECTRICAL POWER ENGINEER Enrico Felton DO LAB - BLOOD ORDERABL ES [facility]/ENDO [facility]Endo [address] [facility] [address] [facility], Room [address] [phone] * CT Chest w Contrast (12/04/2020 3:48 [...] osseous pathology. ADRY ALBERT MD SYSTEM ID: ??[id number] Narrative 12/04/2020 4:[address] CHEST [...] osseous pathology. ADRY ALBERT MD SYSTEM ID: [id number] Cooper Waters MD IMG CT ORDERABLES * [...] Negative NEG^Negati ve 07/19/2018 9:39 PM CDT [facility] Stool specimen (specimen) 07/18/2018 9:00 AM CDT 07/19/2018 8:00 PM CDT Madhuri Deleon APRN SHAVING MACHINE OPERATOR LAB - STOO LS ORDERABLES [facility] [address] [place] [address] * Hepatits C antibody (04/05/2017 6:35 AM ELECTRICAL POWER ENGINEER) Hepatitis C Antibody Nonreactive NR^Nonre active 04/05/2017 4:01 PM ELECTRICAL POWER ENGINEER [facility] Comment: Assay performance characteristics have not been established for newborns, infants, and children Blood specimen (specimen) 04/05/2017 6:35 AM ELECTRICAL POWER ENGINEER 04/05/2017 6:59 AM ELECTRICAL POWER ENGINEER Ana Lieberman MD LAB - BLOOD O RDERABLES Performing Organization Address City/[facility]/ZIP Co de Phone Number [facility] [address] [place] [address] * HPV High Risk Types DNA Cervical (08/22/2016 2:30 PM CDT) HPV [address] [facility] HPV [address] [facility] Other HR HPV Negative NEG [facility] Final Diagnosis This patient's sample is negative [...] its performance characteristics determined by the [facility], Molecular Diagnostics Laboratory. It has not been cleared or approved by the FDA. The laboratory is regulated under CLIA as qualified to perform high-complexity testing. This test is used for clinical purposes. It should not be regarded as investigational or for research. [facility] Specimen Description Cervical Cells [id number] [facility] 08/22/2016 2:30 PM CDT 08/22/2016 2:35 PM CDT Madhuri eDleon APRN SHAVING MACHINE OPERATOR LAB - BLOO D ORDERABLES [facility] [address] [place] [address] * Pap imaged thin layer screen with HPV - recommended age 30 - 65 years (select HPV order below) (08/22/2016 2:29 PM CDT) PAP NIL EPI Arita Report Patient Name: JATINDER DE LA PAZ MR#: [id number] Specimen #: [id number] Collected: 08/22/2016 Received: 08/24/2016 Reported: 08/28/2016 10:33 [...] Hong (ASCP) Processed and screened at [facility] CLINICAL HISTORY: LMP: 09/10/2012 Post Menopausal, Previous normal pap Date of Last Pap: 01/18/2012, Papanicolaou Test Limitations: ??Cervical cytology is a screening test with limited sensitivity; regular screening is critical for cancer prevention; Pap tests are primarily effective for the diagnosis/preventi on of squamous cell carcinoma, not adenocarcinomas or other cancers. TESTING LAB LOCATION: [address] ??[address] COLLECTION SITE: Client: ??[facility] Location: [facility]FP (R) COPATH Cytologic material (specimen) 08/22/2016 2:29 PM CDT 08/24/2016 11:02 AM CDT Madhuri White J Carlos DEVELOPMENTAL MATHEMATICS PROFESSOR SHAVING MACHINE OPERATOR LAB - OPTI ME CLINICAL SPECIMEN COPATH from Last 3 Months or Most Recently Relevant to Health Maintenance Additional Health Concerns Infection Onset Date Last Indicated 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 per 09/01/16 coal mill operator note; left foot tissue 10/08/16 10/11/2018 02/27/2019 Advance Directives For more information, please contact: [phone] * Full Code (Latest Code Status on [...] with patie nt/legal decision maker Care Teams Physical Science Professor Relationship Specialty [place] [address] [place] [address] PCP - General Family Medicine 06/30/22 Edu Crawford DPM [address] [facility] [address] [place], [place] [address] Podiatry 10/18/16 Maddie Mae Personal Advocate & Liaison (PAL) Family Medicine 12/28/21 Wendy Agustin APRN SHAVING MACHINE OPERATOR [address] [place] [address] Assigned PCP 10/09/23
--- OUTSIDE RECORDS SUMMARY | 2023-12-15 01:41 | XMS_ITS | Encounter Summary ---
Author Organization [facility] Address [address] [place] [address] Care Team Providers Care Desktop Support Manager Name Role Phone Edu Crawford DPBharath Unavailable [phone] Maddie Mae Unavailable Unavailable Enrico Felton DO Primary Care Provider [phone] Wendy Agustin APRN MIS DIRECTOR Unavailable [phone] Reason for Referral * Diagnostic Imaging CT Scan (Routine) - Pending Review Specialty Diagnoses / Procedures Referred By Andrés zaman Referred To Contact Radiology. Diagnoses Tobacco use disorder Nicotine dependence, cigarettes, with unspecified nicotine-induced disorders Procedures CT Chest Lung Cancer Screen [place] [address] [place] [address] Referral ID Status Reason Start Date Expiration Date V isits Requested Visits Authorized [id number] Pending Review 11/28/2023 11/27/2024 1 1 * Diagnostic Imaging Mammo (Routine) - Pending Review Specialty Diagnoses / Procedures Referred By Andrés zaman Referred To Contact Radiology. Diagnoses Visit for screening mammogram Procedures MA Screening Bilateral w/ [place] [address] [place] [address] Referral ID Status Reason Start Date Expiration Date V isits Requested Visits Authorized [id number] Pending Review 11/28/2023 11/27/2024 1 1 Reason for Visit * Reason Onset Date Comments Medicare Visit Imm/Inj 11/28/2023 Flu Shot Encounter Details Date Type Department Care Team (Latest Contact Info) Description 11/28/2023 2:00 PM CDT Office Visit [facility] [address] [place] [phone] [place] [address] [place] [address] Encounter for Medicare annual wellness exam (Primary [...] re latives? Once a week 11/28/2023 Attends [employer] Not on file 11/27 Active Member [...] Answer Date Recorded PHQ-2 Score 1 11/28/2023 [facility] [place] of Occupat ional [facility] - Occupational Stress Questionnaire Answer Date [...] in an abandoned building, in an overnight snf, or couch-surfing.) Yes 11/28/2023 Are you worried [...] vaccinations you are due for through the [place] Immunization Information Connection database. Patient Education Preventive [...] foods and aim for 100% of the PAINTER SHIPYARD (recommendeddaily allowance). Lifestyle Exercise at least 150 [...] . For help making a decision, visit: https://bit.ly/vp02023. Prostate cancer screening test: If you have [...] your health care provider. Copyright ?? 2022 [facility] [employer]. All rights reserved. Clinically reviewed by the [employer] [facility] [employer] [facility]. [employer] 435141 - REV 04/11. Bladder Training: Care Instructions [...] Where can you learn more? Go to https://www.Prylos.net/patiented Enter V684 in the search box to learn more about Bladder Training: Care Instructions. Current as of: January 31, 2023?Content Version: 14.0 ?? [employer]. Care instructions adapted under license by your healthcare professional. If you have questions about a medical condition or this instruction, always ask your healthcare professional. [employer] disclaims any warranty or liability for your use of this information. documented in this encounter Progress Notes * Enrico Felton DO - 11/28/2023 2:00 PM CDT Images from the original note were not included. Preventive Care Visit [facility] Enrico Felton DO, Family Medicine Nov [...] in an abandoned building, in an overnight snf, or couch-surfing.) Yes Are you worried about [...] Other HR HPV NEG Negative ASCVD Risk Plastics Seasoner Operator The 10-year ASCVD risk score (Patrick MARQUIS, [...] Advocate & Liaison (PAL) (Family Medicine) Wendy Agustin APRN CNP as Assigned PCP The following [...] masses or organomegaly. Bowel sounds are normal. TOOL INSPECTOR exam: Declined by patient, who states she [...] 2:00 PM CDT Mailed results [employer] Teacher documented in this encounter Plan of Treatment Upcoming Encounters Date Type Department Care Team (Late st Contact Info) Description 12/21/2023 2:00 PM CDT Appointment [address] [place] [address] Kingsley Westbrook DPM [address] [place] [address] Scheduled Orders Name Type Priority [...] LAB - BLOOD ORDERABL ES [facility] [address] [facility] Lab (no room number, 1st floor of clinic) [place] [address] * (ABNORMAL) Basic metabolic panel (11/28/2023 [...] LAB - BLOOD ORDERABL ES [facility] [place] [facility] [address] [facility], [address] [place] [address], [facility] * (ABNORMAL) Lipid panel reflex to direct [...] LAB - BLOOD ORDERABL ES [facility] [facility] [address] 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; left foot tissue 10/08/16 10/11/2018 02/27/2019 Assessment Noted Time PHQ-9 Depression Total Score: 1 11/28/19 24 1:52 PM CDT documented as of this encounter Care Teams Desktop Support Manager Relationship Specialty [place] [address] [place] [address] PCP - General Family Medicine 06/30/22 Edu Crawford DPM [address] [facility] [address] [place], [place] [id number] Podiatry 10/18/16 Maddie Mae Personal Advocate & Liaison (PAL) Family Medicine 12/28/21 Wendy Agustin APRN [facility] [address] [place], [place] [address] Assigned PCP 10/09/23 documented as of this encounter
--- OUTSIDE RECORDS SUMMARY | 2023-12-15 01:41 | XMS_ITS | Continuity of Care Document ---
Author Organization [facility] Address [address] [place] [address] [place] [address] Phone Care Team Providers Care Lumber Loader Name Role Phone Will Yaya MARTINES Unavailable [...] Diagnoses Date Provider Providers Copied on Encounter [facility], [address] [place] [address], [id number] , [place] tel:[phone] [facility] Nadya No Information 2 Will Yaya. [address] [facility] [place], [place], [id number], [place]. tel:[phone] OFFICE/OUTPA TIENT VISIT, EST [facility], [address] [facility] [place], [id number] , [place] tel:[phone] [facility] [place] chronic pain (chief complaint) Degeneration of cervical intervertebral discCervicalgiaLumba goSciatica Due To Displacement Of Lumbar DiscIntervertebral disc disorder with myelopathy, lumbar region 4 [facility]. [address] [place], [address], [place]. tel:[phone] Referring Provider: Yaya Bui, [address] [place], [address] . tel:[phone] OFFICE/OUTPA TIENT VISIT, [facility], [address], [id number] , [place] tel:[phone] [facility] [place] chronic pain (chief complaint) Degeneration of cervical intervertebral discCervicalgiaLumba goSciatica Due To Displacement Of Lumbar DiscTherapeutic Drug Monitoring 4 [facility]. [address] [place], [address], [place]. tel:[phone] Referring Provider: Yaya Bui, [address] [place], [address] . tel:[phone] OFFICE/OUTPA TIENT VISIT, [facility], [address] [place], [id number] , [place] [phone] [facility] chronic pain (chief complaint) CervicalgiaDegenerat ion of cervical intervertebral discLumbagoSciatica Due To Displacement Of Lumbar Disc 4 [facility]. [address] [place], [address], [place]. tel:[phone] Referring Provider: Yaya Bui, [address] [place], [address] . tel:[phone] OFFICE/OUTPA TIENT VISIT, [facility], [address] [place], [id number] , [place] [phone] [facility] [place] chronic pain (chief complaint) LumbagoDegeneration of thoracic or thoracolumbar intervertebral discDisplacement of lumbar intervertebral disc without myelopathyCervicalgi a 2 Will Yaya. [address] [place], [id number], [place]. tel:[phone] Referring Provider: Yaya Bui, [place], [address] . tel:[phone] [facility], [address] [place], [id number] , [place] tel:[phone] [facility] [place] Lumbago [address] [place], [id number], [place]. tel:[phone] Referring Provider: Yaya Bui, formerly [facility] [place], [address] . tel:[phone] OFFICE/OUTPA TIENT VISIT, [facility], [address] [place], [id number] , [place] tel:[phone] [facility] chronic pain (chief complaint) Brachial neuritis or radiculitis nosDegeneration of thoracic or thoracolumbar intervertebral discPain in thoracic spineLumbagoDisplace ment of lumbar intervertebral disc without myelopathy 2 Will Yaya. [address] [place], [id number], [place]. tel:[phone] Referring Provider: Yaya Bui, formerly [facility] [place], [address] . tel:[phone] OFFICE/OUTPA TIENT VISIT, [facility], [address] [place], [id number] , [place] tel:[phone] [facility] chronic pain (chief complaint) Brachial neuritis or radiculitis nosDegeneration of cervical intervertebral discLumbagoDisplacem ent of lumbar intervertebral disc without myelopathy 2 Will Yaya. [address] [place], [id number], [place]. tel:[phone] Referring Provider: Yaya Bui, [facility] [place], [address] . tel:[phone] Family History Family Member Type Diagnosis Age At Onset Mother, sisters and Problem (finding) degenerative dis cs and back pain Payers Payer name Insurance type Covered constitution party ID Authorkathy fernandez(s) Medicare MB [id number] Social History Type Description Quantity Date Captured [...]
--- OUTSIDE RECORDS SUMMARY | 2023-12-15 01:42 | XMS_ITS | Encounter Summary ---
Author Organization [place] Address [address] [place] [address]. [place] [address] Care Team Providers Care Key Account Manager Name Role Phone Edu Crawford DPM Unavailable [phone] Enrico Felton DO Unavailable [phone] Maddie Mae Unavailable Unavailable Enrico Felton DO Primary Care Provider [phone] Reason for Visit * Reason Onset Date Comments Referral 09/13/2023 Foot Wound Encounter Details Date Type Department Care Team (Late st Contact Info) Description 09/13/2023 Telephone [facility] [place] [address] [place] [phone] [place], [facility] Medical Office Building [address] , [address] [place] [address] Referral (Foot Wound) Social History Tobacco Use [...] Never 02/20/2022 How often do you attend oriental orthodox or taoist serv ices? Patient declined 02/20/2022 Do you belong to any clubs o r organizations such as oriental orthodox groups, unions, fraternal or athletic groups, or [...] 1 09/13/2023 [facility] - Occupational Stress Questionnaire Answer Date [...] Workqueue from Wendy Agustin APRN CNP in [facility] for wound of the foot Does the patient have an open and draining wound? Yes Please schedule with Ebonie Barr PA-C, Rosario Sheffield NP, Jeremy Sparks M.D., or Andreas Montenegro CNP at [facility] [place] for next available appointment. For all providers, Taniya Quintero PA-C, Dr. Stevenson, Rosario Sheffield HAND ROUNDER or Dr. Pham, please schedule a follow [...] 12/21/2023 2:00 PM CDT Appointment [facility] [place] [address] [place] [address] [address] [place] [phone] Kingsley Westbrook DPM [address] [place] [id number] documented as of this encounter Goals Goal Patient Goal Type Associated Problems Recent Progress Patient-Stated? 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 per 09/01/16 learning and development administrator note; left foot tissue 10/08/16 10/11/2018 02/27/2019 Assessment Noted Time PHQ-9 Depression Total Score: 1 09/13/19 24 10:02 AM CDT documented as of this encounter Care Teams Key Account Manager Relationship Specialty [place] [address] [place] [address] PCP - General Family Medicine 06/30/22 [place] [address] [place] [address] Podiatry 10/18/16 [place] [address] [place] [address] Assigned PCP 08/29/20 10/08/23 Maddie Mae Personal Advocate & Liaison (PAL) Family Medicine 12/28/21 documented as of this encounter
--- OUTSIDE RECORDS SUMMARY | 2023-12-15 01:42 | XMS_ITS | Encounter Summary ---
Author Organization [place] Address [address] [place] [address]. [place] [address] Care Team Providers Care Motel Front Desk Attendant Name Role Phone Edu Crawford DPM Unavailable [phone] Maddie Mae Unavailable Unavailable Enrico Felton DO Primary Care Provider [phone] Wendy Agustin APRN RESTAURANT CASHIER Unavailable [phone] Encounter Details Date Type Department Care Team (Late st Contact Info) Description 10/30/2023 [facility] Medical Advice [facility] [id number] [place] [phone] [place] [id number] [place] [address] Social History Tobacco Use Types Packs/Day [...] How often do you attend samaritan or druze serv ices? Patient declined 02/20/2022 [...] Answer Date Recorded PHQ-2 Score 1 09/13/2023 [facility] - Occupational Stress Questionnaire Answer [...] in a half-way (including now)? No 02/20/2022 Adolescent Education Answer [...] Info) Description 12/21/2023 2:00 PM CDT Appointment [facility] [address] [place] [address] Kingsley Westbrook DPM [address] [place] [address] documented as of this encounter Goals Goal Patient Goal Type Associated Problems Recent Progress Patient-Stated? Author Financial Wellbeing General Yes Rosey Alexander, BARREL LATHE OPERATOR OUTSIDE documented as of this encounter Visit Diagnoses Not on filedocumented in this encounter Additional Health Concerns Infection Onset Date Last Indicated Resolved Time 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 per 09/01/16 piler note; left foot tissue 10/08/16 10/11/2018 02/27/2019 Assessment Noted Time PHQ-9 Depression Total Score: 1 09/13/19 24 10:02 AM CDT documented as of this encounter Care Teams Motel Front Desk Attendant Relationship Specialty [place] [address] [place] [address] PCP - General Family Medicine 06/30/22 [place] [address] [facility] [address] [place] [address] Podiatry 10/18/16 Maddie Mae Personal Advocate & Liaison (PAL) Family Medicine 12/28/21 Wendy Agustin APRN RESTAURANT CASHIER [address] [place] [address] Assigned PCP 10/09/23 documented as of this encounter
--- OUTSIDE RECORDS SUMMARY | 2023-12-15 01:42 | XMS_ITS | Encounter Summary ---
Author Organization [place] Address [address] [place] [address] Care Team Providers Care It Service Continuity Supervisor Name Role Phone Edu Crawford DPM Unavailable [phone] Enrico Felton DO Unavailable [phone] Maddie Mae Unavailable Unavailable Enrico Felton DO Primary Care Provider [phone] Wendy Agustin APRN PACKAGE CLERK Unavailable [phone] Encounter Details Date Type Department Care Team (Late st Contact Info) Description 01/08/2023 [facility] [address] [address] Melida Pickering, AGENTS' RECORDS CLERK Social History Tobacco Use Types Packs/Day Years [...] Never 02/20/2022 How often do you attend moravian or druze serv ices? Patient declined 02/20/2022 Do you belong to any clubs o r organizations such as moravian groups, unions, fraternal or athletic groups, or [...] Answer Date Recorded PHQ-2 Score 1 02/20/2022 [facility] - Occupational [...] a senior care (including now)? No 02/20/2022 Adolescent Education Answer [...] Info) Description 12/21/2023 2:00 PM CDT Appointment [facility] [place] [address] [place] [address] [address] [place] [address] Kingsley Westbrook DPM [address] [place] [address] documented as of this encounter Goals Goal Patient Goal Type Associated Problems Recent Progress Patient-Stated? 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 per 09/01/16 filling hauler note; left foot tissue 10/08/16 10/11/2018 02/27/2019 Assessment Noted Time PHQ-9 Depression Total Score: 5 02/21/20 22 2:07 PM BATTERY MECHANIC documented as of this encounter Care Teams It Service Continuity Supervisor Relationship Specialty [place] [address] [place] [address] PCP - General Family Medicine 06/30/22 [place] [address] [facility] [address] [place] [address] Podiatry 10/18/16 [place] [address] [place] [address] Assigned PCP 08/29/20 10/08/23 Maddie Mae Personal Advocate & Liaison (PAL) Family Medicine 12/28/21 Wendy Agustin APRN PACKAGE CLERK [address] [facility] [address] [place] [address] Assigned PCP 10/09/23 documented as of this encounter
--- OUTSIDE RECORDS SUMMARY | 2023-12-15 01:42 | XMS_ITS | Encounter Summary ---
Author Organization [place] Address [address] [place] [address]. [place] [address] Care Team Providers Care Cisco Consultant Name Role Phone Edu Crawford DPBharath Unavailable [phone] Enrico Felton DO Unavailable [phone] Maddie Mae Unavailable Unavailable Enrico Felton DO Primary Care Provider [phone] Wendy Agustin APRN VULCANIZER OPERATOR Unavailable [phone] Encounter Details Date Type Department Care Team (Late st Contact Info) Description 01/23/2023 [facility] [place] [address] 4[address] [place] [address] Chelsi Flores, RN Social History [...] How often do you attend lutheran or judaism serv ices? Patient declined 02/20/2022 [...] Answer Date Recorded PHQ-2 Score 1 02/20/2022 [facility] - [...] Appointment [facility] [place] [address] [place] [address] [address] [place] [address] Kingsley Westbrook DPM [address] [place] [address] documented as of this encounter Goals Goal Patient Goal Type Associated Problems Recent Progress Patient-Stated? Author Financial Wellbeing General Yes Rosey Alexander, TUBE BUILDING MACHINE OPERATOR documented as of this encounter Visit Diagnoses Not on filedocumented in this encounter Additional Health Concerns Infection Onset Date Last Indicated Resolved Time 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 per 09/01/16 electroneurodiagnostic technologist note; left foot tissue 10/08/16 10/11/2018 02/27/2019 Assessment Noted Time PHQ-9 Depression Total Score: 5 02/21/20 22 2:07 PM OUTBOUND SALES CONSULTANT documented as of this encounter Care Teams Cisco Consultant Relationship Specialty [place] [address] [place] [address] PCP - General Family Medicine 06/30/22 [place] [address] [facility] [address] [place] [address] Podiatry 10/18/16 [place] [address] [place] [address] Assigned PCP 08/29/20 10/08/23 Maddie Mae Personal Advocate & Liaison (PAL) Family Medicine 12/28/21 Wendy Agustin APRN VULCANIZER OPERATOR [address] [facility] [address] [place] [address] Assigned PCP 10/09/23 documented as of this encounter
--- OUTSIDE RECORDS SUMMARY | 2023-12-15 01:42 | XMS_ITS | Encounter Summary ---
Author Organization [place] Address [address] [place] [address] Care Team Providers Care Correctional Case Records Supervisor Name Role Phone Mirandaclifton Edu DPM Unavailable [phone] Enrico Felton DO Unavailable [phone] Maddie Mae Unavailable Unavailable Enrico Felton DO Primary Care Provider [phone] Aydee Mcgill RN Unavailable [phone] Wendy Agustin APRN ALLOCATION ANALYST Unavailable [phone] Encounter Details Date Type Department Care Team (Late st Contact Info) Description 06/30/2022 [facility] Care Coordination [address] [place] [address] Aydee Mcgill, RN Social History Tobacco [...] Never 02/20/2022 How often do you attend spiritism or latter-day serv ices? Patient declined 02/20/2022 Do you belong to any clubs o r organizations such as spiritism groups, unions, fraternal or athletic groups, or [...] Answer Date Recorded PHQ-2 Score 1 02/20/2022 [facility] - Occupational Stress Questionnaire Answer [...] CDT Appointment [facility] [address] [place] [address] Kingsley Westbrook DPM [address] [place], [place] [address] documented as of this encounter Goals Goal Patient Goal Type Associated Problems Recent Progress Patient-Stated? Author Financial Wellbeing General Yes Rosey Alexander, DOUBLE SURFACE OPERATOR documented as of this encounter Visit Diagnoses Not on filedocumented in this encounter Additional Health Concerns Infection Onset Date Last Indicated Resolved Time 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 per 09/01/16 corporate legal assistant note; left foot tissue 10/08/16 10/11/2018 02/27/2019 Assessment Noted Time PHQ-9 Depression Total Score: 5 02/21/20 22 2:07 PM CITRUS PEELER documented as of this encounter Care Teams Correctional Case Records Supervisor Relationship Specialty [place] [address] [place] [address] PCP - General Family Medicine 06/30/22 [place] [address] [facility] [address] [place] [address] Podiatry 10/18/16 [place] [address] [place] [address] Assigned PCP 08/29/20 10/08/23 Maddie Mae Personal Advocate & Liaison (PAL) Family Medicine 12/28/21 Aydee Mcgill RN ROQUE Clinical Product Navigator Primary Care - CC 06/30/22 06/30/22 Wendy Agustin APRN ALLOCATION ANALYST [address] [facility] [address] [place] [address] Assigned PCP 10/09/23 documented as of this encounter
--- OUTSIDE RECORDS SUMMARY | 2023-12-15 01:42 | XMS_ITS | Encounter Summary ---
Author Organization [place] Address [address] [place] [address] Care Team Providers Care Home Day Care Provider Name Role Phone Edu Crawford DPBharath Unavailable [phone] Maddie Mae Unavailable Unavailable Enrico Felton DO Primary Care Provider [phone] Wendy Agustin APRN VOCATIONAL GUIDANCE COUNSELOR Unavailable [phone] Reason for Referral * Diagnostic Imaging Ultrasound (Routine) - Pending Review Specialty Diagnoses / Procedures Referred By Contac t Referred To Contact Radiology. 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) Procedures US MCKAYLA Doppler No Exercise 1-2 Levels Right Andreas Montenegro APRN VOCATIONAL GUIDANCE COUNSELOR [address] [place] [address] Referral ID Status Reason Start Date Expiration Date V isits Requested Visits Authorized [id number] Pending Review 11/14/2023 11/13/2024 1 1 Reason for Visit * Reason Comments WOUND CARE Encounter Details Date Type Department Care Team (Latest Contact Info) Description 11/14/2023 10:10 AM CDT - 11/14/2023 11:59 PM CDT Hospital Encounter [facility] [address] [place] [phone] Andreas Montenegro APRN VOCATIONAL GUIDANCE COUNSELOR [address] [place] [address] Neuropathic ulcer of right foot with fat [...] Never 02/20/2022 How often do you attend hindu or taoism serv ices? Patient declined 02/20/2022 Do you belong to any clubs o r organizations such as hindu groups, unions, fraternal or athletic groups, or [...] Answer Date Recorded PHQ-2 Score 1 09/13/2023 [facility]at ional [facility] - Occupational Stress [...] encounter Discharge Instructions * Discharge Instructions* Jacqueline Morel RN - 11/14/2023 10:14 AM CDT 11/14/2023 Alyssa Palencia 1960 A DME order for supplies has been placed to [email or web address]. If there are any issues with your order including not receiving the order please call our clinic at [phone]. Do not call [employer]. We are better able to help you. We can contact the [employer] rep to better assist than if you call the general [facility] number. We can provide a tracking number also if needed. [facility] is now sending an ancillary kit free of charge. This kit includes gauze, gloves, and saline. You will receive 1 kit per 15 days of the supply order. We typically order 30 days of supplies so you will receive 2 kits. Please let us know if you would not like to receive this kit and we can communicate this to [facility]. Dressing changes outside of clinic are being performed by Patient Plan 11/14/2023 -okay to shower but do not soak your foot and no swimming and no hot tubs -Try and stay off your foot as much as possible -You have been referred to [facility] for MCKAYLA testing. Please call [phone] to schedule. -Will discuss footwear options with Security Administrator at next appointment -Try and cut down [...] powder - 24g per scoop (on average) Polish yogurt - 23g per 8oz Chicken or [place] - 23g per 3oz Fish - 20-25g per 3oz Beef - 18-23g per 3oz Tofu - 10g per 1/2 cup [place] beans - 20g per cup Cottage cheese - 14g per 1/2 cup Lentils - 13g per 1/4 cup Beef jerky 13g per 1oz 2% milk - 8g per cup Peanut butter - 8g per 2 tablespoons Eggs - 6g per egg Mixed nuts - 6g per 2oz Main Provider: Andreas Montenegro CNP November 14, 2023 Call us at [phone] if you have any questions about your [...] that on your patient satisfaction survey form [facility] will be sending you. It was a [...] any billing related questions please call the [facility] Business office at [phone].The clinic staff does not handle billing related [...] tablet 11/14/2023 PARoxetine (PAXIL) 30 MG tabletIndications:Health Group Home,Anxiety and depression Take 2 tablets (60 mg) [...] 4 02/20/2022 11/28/2023 pregabalin (LYRICA) 150 MG capsuleIndications:[facility] Take 1 capsule (150 mg) by mouth [...] encounter Progress Notes * Andreas Montenegro, WANDY VOCATIONAL GUIDANCE COUNSELOR - 11/14/2023 10:17 AM CDT Images from the original note were not included. [facility] ASSESSMENT: (L97.512) Neuropathic ulcer [...] order for supplies has been placed to [email or web address]. If there are any issues with your order including not receiving the order please call our clinic at [phone]. Do not call [employer]. We are better able to help you. We can contact the [facility] rep to better assist than if you call the general [place] number. We can provide a tracking number also if needed. [employer] is now sending an ancillary kit free of charge. This kit includes gauze, gloves, and saline. You will receive 1 kit per 15 days of the supply order. We typically order 30 days of supplies so you will receive 2 kits. Please let us know if you would not like to receive this kit and we can communicate this to [employer]. Dressing changes outside of clinic are being performed by Patient Plan 11/14/2023 -okay to shower but do not soak your foot and no swimming and no hot tubs -Try and stay off your foot as much as possible -You have been referred to [facility] for MCKAYLA testing. Please call [phone] to schedule. -Will discuss footwear options with Security Administrator at next appointment -Try and cut down [...] powder - 24g per scoop (on average) Polish yogurt - 23g per 8oz Chicken or [place] - 23g per 3oz Fish - 20-25g per 3oz Beef - 18-23g per 3oz Tofu - 10g per 1/2 cup [place] beans - 20g per cup Cottage cheese - 14g per 1/2 cup Lentils - 13g per 1/4 cup Beef jerky 13g per 1oz 2% milk - 8g per cup Peanut butter - 8g per 2 tablespoons Eggs - 6g per egg Mixed nuts - 6g per 2oz Main Provider: Andreas Montenegro CNP November 14, 2023 Call us at [phone] if you have any questions about your [...] that on your patient satisfaction survey form [facility] will be sending you. It was a [...] any billing related questions please call the [facility] Business office at [phone].The clinic staff does not handle billing related [...] asked to reschedule. Electronically signed by: Andreas Montenegro, OSEAS, DATABASE ADMINISTRATION ASSOCIATE, VOCATIONAL GUIDANCE COUNSELOR, CWCN * Jacqueline Morel RN - 11/14/2023 [...] Appointment [facility] [address] [place] [address] Kingsley Westbrook DPM [address] [place] [address] documented as of this encounter Goals Goal Patient Goal Type Associated Problems Recent Progress Patient-Stated? Author Financial Wellbeing General Yes Rosey Alexander, RENÉE documented as of this encounter Results * US MCKAYLA Doppler No Exercise 1-2 Levels Right (11/26/2023 2:12 PM CDT) Anatomical Region Laterality Modality Extremity Ultrasound Impressions 11/26/2023 2:44 PM CDT IMPRESSION: RIGHT LOWER EXTREMITY: MCKAYLA at rest is normal. Multiphasic tibial waveforms. JEZ MORTON MD Narrative 11/26/2023 2:44 PM CDT [facility] DATE: 11/26/2023 EXAM: RESTING ANKLE-BRACHIAL INDICES [...] Procedure Note Jez Morton MD - 11/26/2023 [facility] DATE: 11/26/2023 EXAM: RESTING ANKLE-BRACHIAL INDICES [...] waveforms. 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) documented in this encounter Additional Health Concerns Infection Onset Date Last Indicated Resolved Time 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 per 09/01/16 acura sales consultant note; left foot tissue 10/08/16 10/11/2018 02/27/2019 Assessment Noted Time PHQ-9 Depression Total Score: 1 09/13/19 24 10:02 AM CDT documented as of this encounter Care Teams Home Day Care Provider Relationship Specialty [place] [address] [place] [address] PCP - General Family Medicine 06/30/22 [place] [address] [facility] [address] [place], [place] [address] Podiatry 10/18/16 Maddie Mae Personal Advocate & Liaison (PAL) Family Medicine 12/28/21 Wendy Agustin APRN VOCATIONAL GUIDANCE COUNSELOR [address] [place] [address] Assigned PCP 10/09/23 documented as of this encounter
--- OUTSIDE RECORDS SUMMARY | 2023-12-15 01:42 | XMS_ITS | Encounter Summary ---
Author Organization [place] Address [address] [place] [address] Care Team Providers Care Paint Stockman Name Role Phone Edu Crawford DPBharath Unavailable [phone] Maddie Mae Unavailable Unavailable Enrico Felton DO Primary Care Provider [phone] Wendy Agustin APRN COUNTRY SALES MANAGER Unavailable [phone] Encounter Details Date Type Department Care [...] How often do you attend gnosticist or hoahaoism serv ices? Patient declined 02/20/2022 Do you [...] Answer Date Recorded PHQ-2 Score 1 09/13/2023 [facility] - Occupational Stress Questionnaire Answer [...] CDT Appointment [facility] [address] [place] [phone] Kingsley Westbrook DPM [address] [place] [id number] documented as of this encounter Goals Goal Patient Goal Type Associated Problems Recent Progress Patient-Stated? Author Financial Wellbeing General Yes Rosey Alexander, MOLD REPAIR TECHNICIAN documented as of this encounter Visit Diagnoses Not on filedocumented in this encounter Additional Health Concerns Infection Onset Date Last Indicated Resolved Time 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 per 09/01/16 director energy note; left foot tissue 10/08/16 10/11/2018 02/27/2019 Assessment Noted Time PHQ-9 Depression Total Score: 1 09/13/19 24 10:02 AM CDT documented as of this encounter Care Teams Paint Stockman Relationship Specialty [place] [address] [place] [address] PCP - General Family Medicine 06/30/22 [place] [address] [facility] [address] [place] [address] Podiatry 10/18/16 Maddie Mae Personal Advocate & Liaison (PAL) Family Medicine 12/28/21 Wendy Agustin APRN COUNTRY SALES MANAGER [address] [facility] [address] [place] [address] Assigned PCP 10/09/23 documented as of this encounter
--- OUTSIDE RECORDS SUMMARY | 2023-12-15 01:42 | XMS_ITS | Encounter Summary ---
Author Organization [facility] Address [address] [place] [address] Care Team Providers Care Teleradiologist Name Role Phone Edu Crawford DPBharath Unavailable [phone] Enrico Felton DO Unavailable [phone] Maddie Mae Unavailable Unavailable Enrico Felton DO Primary Care Provider [phone] Wendy Agustin APRN CASING OPERATOR Unavailable [phone] Encounter Details Date Type Department Care Team (Late st Contact Info) Description 10/06/2022 [facility] Medical Advice [address] [address] Lulu Samano MA Social History [...] How often do you attend sikhism or jainism serv ices? Patient declined 02/20/2022 Do you [...] Answer Date Recorded PHQ-2 Score 1 02/20/2022 [facility] - Occupational [...] in a penitentiary (including now)? No 02/20/2022 Sex and Gender [...] [facility] [address] [place] [address] Kingsley Westbrook DPM [address] [place] [address] documented as of this encounter Goals Goal Patient Goal Type Associated Problems Recent Progress Patient-Stated? Author Financial Wellbeing General Yes Rosey Alexander, FERRY BOAT CAPTAIN documented as of this encounter Visit Diagnoses Not on filedocumented in this encounter Additional Health Concerns Infection Onset Date Last Indicated Resolved Time 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 per 09/01/16 image consultant note; left foot tissue 10/08/16 10/11/2018 02/27/2019 Assessment Noted Time PHQ-9 Depression Total Score: 5 02/21/20 22 2:07 PM PRESS OPERATOR ASSISTANT documented as of this encounter Care Teams Teleradiologist Relationship Specialty [place] [address] [place] [address] PCP - General Family Medicine 06/30/22 [place] D[place] [address] [facility] [address] [place] [address] Podiatry 10/18/16 [place] [address] [place] [address] Assigned PCP 08/29/20 10/08/23 Maddie Mae Personal Advocate & Liaison (PAL) Family Medicine 12/28/21 Wendy Agustin APRN CASING OPERATOR [address] [facility] [address] [place] [address] Assigned PCP 10/09/23 documented as of this encounter
--- OUTSIDE RECORDS SUMMARY | 2023-12-15 01:42 | XMS_ITS | Encounter Summary ---
Author Organization [facility] Address [address] [place] [address]. [place] [address] Care Team Providers Care Library Services Coordinator Name Role Phone Edu Crawford DPM Unavailable [phone] Enrico Felton DO Unavailable [phone] Maddie Mae Unavailable Unavailable Enrico Felton DO Primary Care Provider [phone] Wendy Agustin APRN SALES FORECAST ANALYST Unavailable [phone] Reason for Visit * Reason Onset Date Comments Panel Management 10/08/2023 mammo Encounter Details Date Type Department Care Team (Late st Contact Info) Description 10/08/2023 Telephone [facility] [address] [place] [address] Enrico Felton DO [address] [place] [address] Panel Management (mammo) Social History Tobacco [...] How often do you attend mandaeism or sikh serv ices? Patient declined 02/20/2022 Do you [...] Answer Date Recorded PHQ-2 Score 1 09/13/2023 [facility] - Occupational Stress Questionnaire Answer Date Recorded [...] for patient to call back. Melida Pickering/JAYCEE [facility] documented in this encounter Plan of Treatment Upcoming Encounters Date Type Department Care Team (Late st Contact Info) Description 12/21/2023 2:00 PM CDT Appointment [facility] [place] [address] [place] [address] Kingsley Westbrook DPM [address] [place] [address] documented as of this encounter Goals Goal Patient Goal Type Associated Problems Recent Progress Patient-Stated? Author Financial Wellbeing General Yes Rosey Alexander, HYPERION ANALYST documented as of this encounter Visit Diagnoses Not on filedocumented in this encounter Additional Health Concerns Infection Onset Date Last Indicated Resolved Time 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 per 09/01/16 graphic design specialist note; left foot tissue 10/08/16 10/11/2018 02/27/2019 Assessment Noted Time PHQ-9 Depression Total Score: 1 09/13/19 10:02 AM CDT documented as of this encounter Care Teams Library Services Coordinator Relationship Specialty [place] [address] [place] [address] PCP - General Family Medicine 06/30/22 [place] [address] [facility] [address] [place] [address] Podiatry 10/18/16 [place] [address] [place] [address] Assigned PCP 08/29/20 10/08/23 Maddie Mae Personal Advocate & Liaison (PAL) Family Medicine 12/28/21 Wendy Agustin APRN SALES FORECAST ANALYST [address] [facility] [address] [place] [address] Assigned PCP 10/09/23 documented as of this encounter
--- OUTSIDE RECORDS SUMMARY | 2023-12-15 01:42 | XMS_ITS | Encounter Summary ---
Author Organization [facility] Address [address] [place] [address] Care Team Providers Care Professional System Administrator Name Role Phone Edu Crawford DPBharath Unavailable [phone] Enrico Felton DO Unavailable [phone] Maddie Mae Unavailable Unavailable Enrico Felton DO Primary Care Provider [phone] Wendy Agustin APRN AFTER SCHOOL PROGRAM TEACHER Unavailable [phone] Encounter Details Date Type Department Care Team (Late st Contact Info) Description 09/28/2023 [facility] Medical Advice [address] [address] Melida Pickering, KID CLUB ATTENDANT Social History Tobacco Use Types Packs/Day Years [...] How often do you attend nondenominational or jewish serv ices? Patient declined 02/20/2022 Do you [...] Answer Date Recorded PHQ-2 Score 1 09/13/2023 [facility] - Occupational Stress Questionnaire Answer Date [...] in a longterm (including now)? No 02/20/2022 Adolescent Education Answer [...] CDT Appointment [facility] [address] [place] [address] Kingsley Westbrook DPM [address] [place], [place] [address] documented as of this encounter Goals Goal Patient Goal Type Associated Problems Recent Progress Patient-Stated? Author Financial Wellbeing General Yes Rosey Alexander, PHARMACOVIGILANCE SCIENTIST documented as of this encounter Visit Diagnoses Not on filedocumented in this encounter Additional Health Concerns Infection Onset Date Last Indicated Resolved Time 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 per 09/01/16 network liaison note; left foot tissue 10/08/16 10/11/2018 02/27/2019 Assessment Noted Time PHQ-9 Depression Total Score: 1 09/13/19 24 10:02 AM CDT documented as of this encounter Care Teams Professional System Administrator Relationship Specialty [place] [address] [place] [address] PCP - General Family Medicine 06/30/22 Edu Crawford DPM [address] [facility] [address] [place], [place] [address] Podiatry 10/18/16 [place] [address] [place], [place] [address] Assigned PCP 08/29/20 10/08/23 Maddie Mae Personal Advocate & Liaison (PAL) Family Medicine 12/28/21 Wendy Agustin APRN [facility] [address] [place] [address] Assigned PCP 10/09/23 documented as of this encounter
--- OUTSIDE RECORDS SUMMARY | 2023-12-15 01:42 | XMS_ITS | Encounter Summary ---
Author Organization [facility] Address [address] [place] [address]. [place] [address] Care Team Providers Care Financial Services Director Name Role Phone MirandaStefan lazoemy DPM Unavailable [phone] Maddie Mae Unavailable Unavailable Enrico Felton DO Primary Care Provider [phone] Wendy Agustin APRN HUMAN RESOURCES COMPENSATION ANALYST Unavailable [phone] Reason for Visit * Reason Onset Date Comments Refill Request 10/30/2023 Encounter Details Date Type Department Care Team (Late st Contact Info) Description 10/30/[address] [address] [place] [id number] [place] [address] Refill Request Social History Tobacco Use [...] Never 02/20/2022 How often do you attend congregational or druze serv ices? Patient declined 02/20/2022 Do you belong to any clubs o r organizations such as congregational groups, unions, fraternal or athletic groups, or [...] Answer Date Recorded PHQ-2 Score 1 09/13/2023 [facility] - Occupational Stress Questionnaire Answer Date [...] medications were previously prescribed by pain clinic, [facility] in [place]. Patient has upcoming appointment with Dr. Felton on 11/28/2023. A-(assessment): Patient no longer wants to go to pain clinic because it is too far away and too expensive. Patient has appointment with pain clinic on 11/13/2023, but patient says she may not go to this appointment. R-(recommendations): Routing refills to primary care provider to advise. Thank you, Caesar De Luna, telemarketing supervisor [facility] 10:32 AM 10/30/2023 documented in this encounter Plan of Treatment Upcoming Encounters Date Type Department Care Team (Late st Contact Info) Description 12/21/2023 2:00 PM CDT Appointment [facility] [address] [place] [address] Kingsley Westbrook DPM [address] [place] [id number] documented as of this encounter Goals Goal Patient Goal Type Associated Problems Recent Progress Patient-Stated? Author Financial Wellbeing General Yes Rosey Alexander, OIL EXPELLER OPERATOR documented as of this encounter Visit [...] Comment:MRSA at outside facility per 09/01/16 manager java note; left foot tissue 10/08/16 10/11/2018 02/27/2019 Assessment Noted Time PHQ-9 Depression Total Score: 1 09/13/19 10:02 AM CDT documented as of this encounter Care Teams Financial Services Director Relationship Specialty [place] [address] [place] [address] PCP - General Family Medicine 06/30/22 Edu Crawford DPM [address] [facility] [address] [place], [place] [id number] Podiatry 10/18/16 Maddie Mae Personal Advocate & Liaison (PAL) Family Medicine 12/28/21 Wendy Agustin APRN HUMAN RESOURCES COMPENSATION ANALYST [address] [facility] [address] [place] [address] Assigned PCP 10/09/23 documented as of this encounter
--- OUTSIDE RECORDS SUMMARY | 2023-12-15 01:42 | XMS_ITS | Encounter Summary ---
Author Organization [facility] Address [address] [place] [address]. [place] [address] Care Team Providers Care Central Office Technician Name Role Phone Edu Crawford DPM Unavailable [phone] Enrico Felton DO Unavailable [phone] Maddie Mae Unavailable Unavailable Enrico Felton DO Primary Care Provider [phone] Reason for Visit * Reason Onset Date Comments Panel Management 09/28/2023 pap Encounter Details Date Type Department Care Team (Late st Contact Info) Description 09/28/2023 Telephone [facility] [address] [place] [address] [place] [address] [place] [address] Panel Management (pap) Social History Tobacco [...] Never 02/20/2022 How often do you attend jew or anabaptist serv ices? Patient declined 02/20/2022 Do you belong to any clubs o r organizations such as jew groups, unions, fraternal or athletic groups, or [...] Answer Date Recorded PHQ-2 Score 1 09/13/2023 [facility] - Occupational Stress Questionnaire Answer Date [...] place to sleep or slept in a mcfp (including now)? No 02/20/2022 Adolescent Education Answer [...] back. and Sent MyChart message. Melida Pickering/JAYCEE [facility]---[facility] documented in this encounter Plan of Treatment Upcoming Encounters Date Type Department Care Team (Late st Contact Info) Description 12/21/2023 2:00 PM CDT Appointment [facility] [place] [address] [place] [address] Kingsley Westbrook DPM [address] [place] [address] documented as of this encounter Goals Goal Patient Goal Type Associated Problems Recent Progress Patient-Stated? Author Financial Wellbeing General Yes Rosey Alexander, FELT CUTTING MACHINE OPERATOR documented as of this encounter Visit Diagnoses Not on filedocumented in this encounter Additional Health Concerns Infection Onset Date Last Indicated Resolved Time 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 per 09/01/16 rn picu note; left foot tissue 10/08/16 10/11/2018 02/27/2019 Assessment Noted Time PHQ-9 Depression Total Score: 1 09/13/19 24 10:02 AM CDT documented as of this encounter Care Teams Central Office Technician Relationship Specialty [place] [address] [place] [address] PCP - General Family Medicine 06/30/22 Edu Crawford DPM [id number] [place] [address] [address] [place] [address] Podiatry 10/18/16 [place] [address] [place] [address] Assigned PCP 08/29/20 10/08/23 Maddie Mae Personal Advocate & Liaison (PAL) Family Medicine 12/28/21 documented as of this encounter
--- OUTSIDE RECORDS SUMMARY | 2023-12-15 01:42 | XMS_ITS | Encounter Summary ---
Author Organization [facility] Address [address] [place] [address]. [place] [address] Care Team Providers Care Manager Student Services Name Role Phone Mirandaclifton Edu DPM Unavailable [phone] Maddie Mae Unavailable Unavailable Enrico Felton DO Primary Care Provider [phone] Wendy Agustin APRN [employer] ARTISTIC DIRECTOR Unavailable [phone] Reason for Visit * Reason Onset Date Comments Prior Auth - Medication 10/30/2023 ondanset willi (ZOFRAN) 4 MG tablet -EPA DENIED Encounter Details Date Type Department Care Team (Late st Contact Info) Description 10/30/[address] [address] [place] [address] [place] [address] Prior Auth - Medication (ondansetron (ZOFRAN) [...] How often do you attend moravian or pentecostalism serv ices? Patient declined 02/20/2022 Do you [...] Answer Date Recorded PHQ-2 Score 1 09/13/2023 [facility] Occupat ional Health - Occupational [...] HCL 4 MG PO TABS Insurance Company: [email or web address] ([facility]) - Denial Date: 10/30/2023 Denial Reason(s): REQUIRES [...] Description 12/21/2023 2:[address] [facility] [place] [address] [place] [address] Kingsley Westbrook DPM [address] [place] [address] documented as of this encounter Goals Goal Patient Goal Type Associated Problems Recent Progress Patient-Stated? Author Financial Wellbeing General Yes Rosey Alexander, HOUSING QUALITY STANDARD INSPECTOR documented as of this encounter Visit Diagnoses Not on filedocumented in this encounter Additional Health Concerns Infection Onset Date Last Indicated Resolved Time 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 per 09/01/16 technology professional note; left foot tissue 10/08/16 10/11/2018 02/27/2019 Assessment Noted Time PHQ-9 Depression Total Score: 1 09/13/19 24 10:02 AM CDT documented as of this encounter Care Teams Manager Student Services Relationship Specialty [place] [address] [place] [address] PCP - General Family Medicine 06/30/22 [place] [address] [facility] [address] [place] [address] Podiatry 10/18/16 Maddie Mae Personal Advocate & Liaison (PAL) Family Medicine 12/28/21 Wendy Agustin APRN [employer] ARTISTIC DIRECTOR [address] [facility] [address] [place] [address] Assigned PCP 10/09/23 documented as of this encounter
--- OUTSIDE RECORDS SUMMARY | 2023-12-15 01:42 | XMS_ITS | Encounter Summary ---
Author Organization [facility] Address [address] [place] [address] Care Team Providers Care Regional Operations Director Name Role Phone Edu Crawford DPM Unavailable [phone] Enrico Felton DO Unavailable [phone] Maddie Mae Unavailable Unavailable Enrico Felton DO Primary Care Provider [phone] Encounter Details Date Type Department Care Team [...] How often do you attend shinto or oriental orthodox serv ices? Patient declined [...] Answer Date Recorded PHQ-2 Score 1 09/13/2023 [facility] of [...] in a fdc (including now)? No 02/20/2022 Adolescent Education Answer [...] Info) Description 12/21/2023 2:00 PM CDT Appointment [facility] [address] [place] [address] Kingsley Westbrook DPM [address] [place] [id number] documented as of this encounter Goals Goal Patient Goal Type Associated Problems Recent Progress Patient-Stated? Author Financial Wellbeing General Yes Rosey Alexander, SEASONER documented as of this encounter Visit Diagnoses Not on filedocumented in this encounter Additional Health Concerns Infection Onset Date Last Indicated Resolved Time 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 per 09/01/16 examining officer note; left foot tissue 10/08/16 10/11/2018 02/27/2019 Assessment Noted Time PHQ-9 Depression Total Score: 1 09/13/19 24 10:02 AM CDT documented as of this encounter Care Teams Regional Operations Director Relationship Specialty [place] [address] [place] [address] PCP - General Family Medicine 06/30/22 [place] [address] [facility] [address] [place] [address] Podiatry 10/18/16 [place] [address] [place] [address] Assigned PCP 08/29/20 10/08/23 Maddie Mae Personal Advocate & Liaison (PAL) Family Medicine 12/28/21 documented as of this encounter
--- OUTSIDE RECORDS SUMMARY | 2023-12-15 01:42 | XMS_ITS | Encounter Summary ---
Author Organization [facility] Address [address] [place] [address] Care Team Providers Care Unclaimed Property Manager Name Role Phone Edu Crawford DPM Unavailable [phone] Enrico Felton DO Unavailable Maddie Mae Unavailable Unavailable Enrico Felton DO Primary Care Provider [phone] Wendy Agustin APRN MERINGUER Unavailable [phone] Encounter Details Date Type Department Care Team (Late st Contact Info) Description 12/26/2022 [facility] Medical Advice [address] [address] Melida Pickering, KIER OPERATOR Social History Tobacco Use Types Packs/Day [...] How often do you attend jain or adventist serv ices? Patient declined 02/20/2022 Do you [...] [facility]at ional Health - Occupational [...] Info) Description 12/21/2023 2:00 PM CDT Appointment [facility] [place] [address] [place] [address] [address] [place] [address] Kingsley Westbrook DPM [address] [place] [address] documented as of this encounter Goals Goal Patient Goal Type Associated Problems Recent Progress Patient-Stated? Author Financial Wellbeing General Yes Rosey Alexander, MANAGER STATISTICAL PROGRAMMING documented as of this encounter Visit Diagnoses Not on filedocumented in this encounter Additional Health Concerns Infection Onset Date Last Indicated Resolved Time 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 per 09/01/16 putty patcher note; left foot tissue 10/08/16 10/11/2018 02/27/2019 Assessment Noted Time PHQ-9 Depression Total Score: 5 02/21/20 22 2:07 PM STILL OPERATOR WHISKEY documented as of this encounter Care Teams Unclaimed Property Manager Relationship Specialty [place] [address] [place] [address] PCP - General Family Medicine 06/30/22 Edu Crawford D[place] [address] [facility] [address] [place] [address] Podiatry 10/18/16 [place] [address] [place] [address] Assigned PCP 08/29/20 10/08/23 Maddie Mae Personal Advocate & Liaison (PAL) Family Medicine 12/28/21 Wendy Agustin APRN MERINGUER [address] [facility] [address] [place] [address] Assigned PCP 10/09/23 documented as of this encounter
--- OUTSIDE RECORDS SUMMARY | 2023-12-15 01:42 | XMS_ITS | Encounter Summary ---
Author Organization [facility] Address [address] [place] [address]. [place] [address] Care Team Providers Care Hydroponics Worker Name Role Phone Edu Crawford DPM Unavailable [phone] Maddie Mae Unavailable Unavailable Enrico Felton DO Primary Care Provider [phone] Wendy Agustin APRN METER RECORD CLERK Unavailable [phone] Encounter Details Date Type Department Care Team (Late st Contact Info) Description 10/30/[address] [facility] [address] [place] [address] [place] [address] [place] [address] Social History Tobacco Use Types Packs/Day [...] How often do you attend voodoo or muslim serv ices? Patient declined 02/20/2022 [...] Answer Date Recorded PHQ-2 Score 1 09/13/2023 [facility] - Occupational Stress Questionnaire Answer Date [...] in a prison (including now)? No 02/20/2022 Adolescent Education Answer [...] Description 12/21/2023 2:00 PM CDT Appointment [facility] [address] [place] [address] Kingsley Westbrook DPM [address] [place] [address] documented as of this encounter Goals Goal Patient Goal Type Associated Problems Recent Progress Patient-Stated? Author Financial Wellbeing General Yes Rosey Alexander, EYEGLASS FRAMES POLISHER documented as of this encounter Visit Diagnoses Not on filedocumented in this encounter Additional Health Concerns Infection Onset Date Last Indicated Resolved Time 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 per 09/01/16 dedicated driver note; left foot tissue 10/08/16 10/11/2018 02/27/2019 Assessment Noted Time PHQ-9 Depression Total Score: 1 09/13/19 24 10:02 AM CDT documented as of this encounter Care Teams Hydroponics Worker Relationship Specialty [place] [address] [place] [address] PCP - General Family Medicine 06/30/22 Edu Crawford DPM [address] [facility] [address] [place] [address] Podiatry 10/18/16 Maddie Mae Personal Advocate & Liaison (PAL) Family Medicine 12/28/21 Wendy Agustin APRN METER RECORD CLERK [address] [place] [address] Assigned PCP 10/09/23 documented as of this encounter
--- OUTSIDE RECORDS SUMMARY | 2023-12-15 01:42 | XMS_ITS | Encounter Summary ---
Author Organization [place] Address [address] [place] [address] Care Team Providers Care Train Controller Name Role Phone Edu Crawford DPM Unavailable [phone] Maddie Mae Unavailable Unavailable Enrico Felton DO Primary Care Provider [phone] Wendy Agustin APRN [place] UTILITY WORKER Unavailable [phone] Encounter Details Date Type Department Care Team (Late st Contact Info) Description 10/09/2023 [facility] [address] [address] Melida Pickering, COFFEE HOST Social History Tobacco Use Types Packs/Day Years [...] How often do you attend mandaen or samaritan serv ices? Patient declined 02/20/2022 [...] Date Recorded PHQ-2 Score 1 09/13/2023 [facility] - Occupational Stress Questionnaire Answer Date [...] PM CDT Appointment [facility] [address] [phone] Kingsley Westbrook DPM [address] [place] [address] documented as of this encounter Goals Goal Patient Goal Type Associated Problems Recent Progress Patient-Stated? Author Financial Wellbeing General Yes Rosey Alexander, AUTOMOTIVE TECHNICIAN INSTRUCTOR documented as of this encounter Visit Diagnoses Not on filedocumented in this encounter Additional Health Concerns Infection Onset Date Last Indicated Resolved Time 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 per 09/01/16 area field person note; left foot tissue 10/08/16 10/11/2018 02/27/2019 Assessment Noted Time PHQ-9 Depression Total Score: 1 09/13/19 24 10:02 AM CDT documented as of this encounter Care Teams Train Controller Relationship Specialty [place] [address] [place] [address] PCP - General Family Medicine 06/30/22 [place] [address] [facility] [address] [place] [address] Podiatry 10/18/16 Maddie Mae Personal Advocate & Liaison (PAL) Family Medicine 12/28/21 Wendy Agustin APRN [employer] [place] UTILITY WORKER [address] [facility] [address] [place], [place] [address] Assigned PCP 10/09/23 documented as of this encounter
--- OUTSIDE RECORDS SUMMARY | 2023-12-15 01:42 | XMS_ITS | Encounter Summary ---
Author Organization [place] Address [address] [place] [address] Care Team Providers Care Physical Plant Manager Name Role Phone Edu Crawford DPBharath Unavailable [phone] Enrico Felton DO Unavailable [phone] Maddie Mae Unavailable Unavailable Enrico Felton DO Primary Care Provider [phone] Wendy Agustin APRN STAFF CLIMATE SCIENTIST Unavailable [phone] Encounter Details Date Type Department Care Team (Late st Contact Info) Description 07/25/2022 [facility] [place] [address] [address] [place] Social History Tobacco [...] Never 02/20/2022 How often do you attend jehovah's witness or buddhist serv ices? Patient declined 02/20/2022 Do you belong to any clubs o r organizations such as jehovah's witness groups, unions, fraternal or athletic groups, or [...] Answer Date Recorded PHQ-2 Score 1 02/20/2022 [facility] - [...] in a long-term (including now)? No 02/20/2022 Sex and Gender Information Value Date Recorded Sex Assigned at Not on file Gender Identity Not on file Sexual Orientation Not on file documented as of this encounter Plan of Treatment Upcoming Encounters Date Type Department Care Team (Late st Contact Info) Description 12/21/2023 2:00 PM CDT Appointment [facility] [place] [address] [place] [address] [address] [place] [address] Kingsley Westbrook DPM [address] [place], [place] [address] documented as of this encounter Goals Goal Patient Goal Type Associated Problems Recent Progress Patient-Stated? Author Financial Wellbeing General Yes Rosye Alexander, CERTIFIED COMPOSITES TECHNICIAN documented as of this encounter Visit Diagnoses Not on filedocumented in this encounter Additional Health Concerns Infection Onset Date Last Indicated Resolved Time 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 per 09/01/16 calibration laboratory technician note; left foot tissue 10/08/16 10/11/2018 02/27/2019 Assessment Noted Time PHQ-9 Depression Total Score: 5 02/21/20 22 2:07 PM INVESTIGATIONS CHIEF documented as of this encounter Care Teams Physical Plant Manager Relationship Specialty [place] [address] [place] [address] PCP - General Family Medicine 06/30/22 [place] [address] [facility] [address] [place] [address] Podiatry 10/18/16 [place] [address] [place] [address] Assigned PCP 08/29/20 10/08/23 Maddie Mae Personal Advocate & Liaison (PAL) Family Medicine 12/28/21 Wendy Agustin APRN [facility] [address] [place] [address] Assigned PCP 10/09/23 documented as of this encounter
--- OUTSIDE RECORDS SUMMARY | 2023-12-15 01:42 | XMS_ITS | Encounter Summary ---
Author Organization [place] Address [address] [place] [address]. [place] [address] Care Team Providers Care Priest Name Role Phone Edu Crawford DPM Unavailable [phone] Enrico Felton DO Unavailable [phone] Maddie Mae Unavailable Unavailable Enrico Felton DO Primary Care Provider [phone] Reason for Referral * Consultation (Urgent: 3-5 Days) - Pending Review Specialty Diagnoses / Procedures Referred By Contac t Referred To Contact Wound Care Diagnoses Penetrating foot wound, right, initial encounter Wendy Agustin APRN STORE OPERATIONS MANAGER [address] [place] [address] [place] [address] [facility] [address] [facility] [address] [place] [address] Referral ID Status Reason Start Date Expiration Date V isits Requested Visits Authorized [id number] Pending Review 09/13/2023 09/12/2024 1 1 Question Answer Preferred Location: [facility] [place] [facility] Scheduling Instructions: Please call to schedule your [...] Description 09/13/2023 11:00 AM CDT Office Visit [facility] [address] [place] [address] Wendy Agustin APRN STORE OPERATIONS MANAGER [address] [place] [address] Penetrating foot wound, right, initial encounter (Primary [...] Never 02/20/2022 How often do you attend synagogue or congregation serv ices? Patient declined 02/20/2022 Do you belong to any clubs o r organizations such as synagogue groups, unions, fraternal or athletic groups, or [...] Answer Date Recorded PHQ-2 Score 1 09/13/2023 [facility] - Occupational [...] in a intermediate (including now)? No 02/20/2022 Adolescent Education Answer [...] encounter Progress Notes * Wendy Agustin APRN STORE OPERATIONS MANAGER - 09/13/2023 11:00 AM CDT Assessment & [...] Description 12/21/2023 2:[address] [facility] [address] [place] [address] Kingsley Westbrook DPM [address] [place] [address] Scheduled Referrals Name Type Priority Associated Diagnoses Orde r Schedule Wound Care Referral Referral Urgent: 3-5 Days Penetrating foot wound, right, initial encounter Expected: 09/13/2023 (Approximate), Expires: 09/12/2024 documented as of this encounter Goals Goal Patient Goal Type Associated Problems Recent Progress Patient-Stated? Author Financial Wellbeing General Yes Rosey Alexander, IT PORTFOLIO MANAGER documented as of this encounter Visit Diagnoses Diagnosis Penetrating foot wound, right, initial encounter- Primary Overactive bladder Hypertonicity of bladder documented in this encounter Additional Health Concerns Infection Onset Date Last Indicated Resolved Time 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 per 09/01/16 workgroup leader note; left foot tissue 10/08/16 10/11/2018 02/27/2019 Assessment Noted Time PHQ-9 Depression Total Score: 1 09/13/19 24 10:02 AM CDT documented as of this encounter Care Teams Priest Relationship Specialty [place] [address] [place] [address] PCP - General Family Medicine 06/30/22 [place] [address] [facility] [address] [place] [address] Podiatry 10/18/16 [place] [address] [place] [address] Assigned PCP 08/29/20 10/08/23 Maddie Mae Personal Advocate & Liaison (PAL) Family Medicine 12/28/21 documented as of this encounter
--- OUTSIDE RECORDS SUMMARY | 2023-12-15 01:43 | XMS_ITS | Encounter Summary ---
Author Organization [employer] Address [address] [place] [address]. [place] [address] Care Team Providers Care Grad Intern Name Role Phone Yvette Edu DPM Unavailable [phone] Enrico Felton DO Primary Care Provider [phone] Enrico Felton DO Unavailable [phone] Rebecca Palumbo MD Unavailable [phone] Anders Ramachandran Unavailable Unavailable Magdalena Brice Unavailable Unavailable Maddie Mae Unavailable Unavailable No Ref-Primary, Physician Primary Care Provider Enrico Felton DO Primary Care Provider [phone] Aydee Mcgill RN Unavailable [phone] Wendy Agustin APRN RIG WELDER Unavailable [phone] Encounter Details Date Type Department Care Team (Late st Contact Info) Description 02/24/2021 [facility] Medical Advice [facility] [address] [place] [address] [place] [id number] [place] [address] Social History Tobacco Use Types Packs/Day [...] Info) Description 12/21/2023 2:00 PM CDT Appointment [facility] [address] [place] [address] [address] [place] [address] Kingsley Westbrook DPM [address] [place], [place] [address] documented as of this encounter Goals Goal Patient Goal Type Associated Problems Recent Progress Patient-Stated? Author Financial Wellbeing General Yes Rosey Alexander, ROOM SERVICE CLERK documented as of this encounter Visit Diagnoses Not on filedocumented in this encounter Additional Health Concerns Infection Onset Date Last Indicated Resolved Time 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 per 09/01/16 reimbursement auditor note; left foot tissue 10/08/16 10/11/2018 02/27/2019 Assessment Noted Time PHQ-9 Depression Total Score: 3 08/24/19 21 12:19 PM CDT documented as of this encounter Care Teams Grad Intern Relationship Specialty [place] [address] [place] [address] PCP - General Family Medicine 08/24/20 01/23/22 No Ref-Primary, Physician PCP - General 02/20/22 06/29/22 [place] [address] [place] [address] PCP - General Family Medicine 06/30/22 [place] [address] [facility] [address] [place] [address] Podiatry 10/18/16 [place] [address] [place] [address] Assigned PCP 08/29/20 10/08/23 Rebecca Palumbo MD [address] [place] [address] [address] [place], [place] [address] Assigned Neuroscience Provider 10/01/20 10/14/21 Anders Ramachandran Personal Advocate & Liaison (PAL) 10/14/20 07/07/21 Magdalena Brice Personal Advocate & Liaison (PAL) 11/14/21 12/27/21 Maddie Mae Personal Advocate & Liaison (PAL) Family Medicine 12/28/21 Aydee Mcgill RN ROQUE Clinical Product Navigator Primary Care - CC 06/30/22 06/30/22 Wendy Agustin APRN RIG WELDER [address] [facility] [address] [place] [address] Assigned PCP 10/09/23 documented as of this encounter
--- OUTSIDE RECORDS SUMMARY | 2023-12-15 01:43 | XMS_ITS | Encounter Summary ---
Author Organization [place] Address [address] [place] [address] Care Team Providers Care Dry Molder Name Role Phone Yvette Edu DPM Unavailable [phone] Enrico Felton DO Primary Care Provider [phone] Enrico Felton DO Unavailable [phone] Rebecca Palumbo MD Unavailable [phone] Anedrs Ramachandran Unavailable Unavailable Magdalena Brice Unavailable Unavailable Maddie Mae Unavailable Unavailable No Ref-Primary, Physician Primary Care Provider Enrico Felton DO Primary Care Provider [phone] Aydee Mcgill RN Unavailable [phone] Wendy Agustin APRN TUBE STATION ATTENDANT Unavailable [phone] Encounter Details Date Type Department Care Team (Late st Contact Info) Description 06/01/2021 MyC Medical Advice [facility] [address] [place] [address] Lulu Samano MA Social History Tobacco [...] PM CDT Appointment [facility]ound [facility] [address] [place] [phone] Kingsley Westbrook DPM [address] [place], [place] [address] documented as of this encounter Goals Goal Patient Goal Type Associated Problems Recent Progress Patient-Stated? 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 per 09/01/16 geodetic survey director note; left foot tissue 10/08/16 10/11/2018 02/27/2019 Assessment Noted Time PHQ-9 Depression Total Score: 3 08/24/19 21 12:19 PM CDT documented as of this encounter Care Teams Dry Molder Relationship Specialty [place] [address] [place] [address] PCP - General Family Medicine 08/24/20 01/23/22 No Ref-Primary, Physician PCP - General 02/20/22 06/29/22 [place] [address] [place] [address] PCP - General Family Medicine 06/30/22 [place] [address] [facility] [address] [place] [address] Podiatry 10/18/16 [place] [address] [place] [address] Assigned PCP 08/29/20 10/08/23 Rebecca Palumbo MD [address] [place] [address] 297 [place] [address] Assigned Neuroscience Provider 10/01/20 10/14/21 Anders Ramachandran Personal Advocate & Liaison (PAL) 10/14/20 07/07/21 Magdaelna Brice Personal Advocate & Liaison (PAL) 11/14/21 12/27/21 Maddie Mae Personal Advocate & Liaison (PAL) Family Medicine 12/28/21 Aydee Mcgill RN RN Clinical Product Navigator Primary Care - CC 06/30/22 06/30/22 Wendy Agustin APRN TUBE STATION ATTENDANT [address] [facility] [address] [place] [address] Assigned PCP 10/09/23 documented as of this encounter
--- OUTSIDE RECORDS SUMMARY | 2023-12-15 01:43 | XMS_ITS | Encounter Summary ---
Author Organization [place] Address [address] [place] [address] Care Team Providers Care Tub Attendant Name Role Phone MirandalciftonEdu DPM Unavailable [phone] Enrico Felton DO Primary Care Provider [phone] Enrico Felton DO Unavailable [phone] Magdalena Brice Unavailable Unavailable Maddie Mae Unavailable Unavailable No Ref-Primary, Physician Primary Care Provider Enrico Felton DO Primary Care Provider [phone] Aydee Mcgill RN Unavailable [phone] Wendy Agustin SMEARER RADAR MECHANIC Unavailable [phone] Encounter Details Date Type Department Care Team (Late st Contact Info) Description 10/20/2021 MyC Medical Advice [facility] [address] [place] [address] Melida Pickering, MARKETING RESEARCH ANALYST Social History Tobacco Use Types Packs/Day Years [...] 12/21/2023 2:[address] [facility] [place] [address] [place] [address] [address] [place] [phone] Kingsley Westbrook DPM [address] [place] [address] documented as of this encounter Goals Goal Patient Goal Type Associated Problems Recent Progress Patient-Stated? Author Financial Wellbeing General Yes Rosey Alexander, RESOURCE TECHNICIAN documented as of this encounter Visit Diagnoses Not on filedocumented in this encounter Additional Health Concerns Infection Onset Date Last Indicated Resolved Time 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 per 09/01/16 partner marketing intern note; left foot tissue 10/08/16 10/11/2018 02/27/2019 Assessment Noted Time PHQ-9 Depression Total Score: 3 08/24/19 21 12:19 PM CDT documented as of this encounter Care Teams Tub Attendant Relationship Specialty [place] [address] [place] [address] PCP - General Family Medicine 08/24/20 01/23/22 No Ref-Primary, Physician PCP - General 02/20/22 06/29/22 [place] [address] [place] [address] PCP - General Family Medicine 06/30/22 [place] [address] [facility] [address] [place] [address] Podiatry 10/18/16 [place] [address] [place] [address] Assigned PCP 08/29/20 10/08/23 Magdalena Brice Personal Advocate & Liaison (PAL) 11/14/21 12/27/21 Maddie Mae Personal Advocate & Liaison (PAL) Family Medicine 12/28/21 Aydee Mcgill, RN RN Clinical Product Navigator Primary Care - CC 06/30/22 06/30/22 Wendy Agustin APRN RADAR MECHANIC [address] [facility] [address] [place] [address] Assigned PCP 10/09/23 documented as of this encounter
--- OUTSIDE RECORDS SUMMARY | 2023-12-15 01:43 | XMS_ITS | Encounter Summary ---
Author Organization [place] Address [address] [place] [address] Care Team Providers Care Marketing Assistant Manager Name Role Phone YvetteEdu DPM Unavailable [phone] Enrico Felton DO Primary Care Provider [phone] Enrico Felton DO Unavailable [phone] Rebecca Palumbo MD Unavailable [phone] Magdalena Brice Unavailable Unavailable Maddie Mae Unavailable Unavailable No Ref-Primary, Physician Primary Care Provider Enrico Felton DO Primary Care Provider [phone] Ayede Mcgill RN Unavailable [phone] Wendy Agustin APRN ELECTRICAL PROJECT ENGINEER Unavailable [phone] Encounter Details Date Type Department Care Team (Late st Contact Info) Description 07/14/2021 MyC Medical Advice [facility] [address] [place] [address] Melida Pickering, ELECTRICIAN TELEPHONE Social History Tobacco Use Types Packs/Day Years [...] Info) Description 12/21/2023 2:00 PM CDT Appointment [facility] [place] [address] [place] [address] Kingsley Westbrook DPM [address] [place] [address] documented as of this encounter Goals Goal Patient Goal Type Associated Problems Recent Progress Patient-Stated? Author Financial Wellbeing General Yes Rosey Alexander, ANNUAL GIVING OFFICER documented as of this encounter Visit Diagnoses Not on filedocumented in this encounter Additional Health Concerns Infection Onset Date Last Indicated Resolved Time 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 per 09/01/16 quarantine inspector note; left foot tissue 10/08/16 10/11/2018 02/27/2019 Assessment Noted Time PHQ-9 Depression Total Score: 3 08/24/19 21 12:19 PM CDT documented as of this encounter Care Teams Marketing Assistant Manager Relationship Specialty [place] [address] [place] [address] PCP - General Family Medicine 08/24/20 01/23/22 No Ref-Primary, Physician PCP - General 02/20/22 06/29/22 [place] [address] [facility] [place] [address] PCP - General Family Medicine 06/30/22 [place] [address] [facility] [address] [place] [address] Podiatry 10/18/16 [place] [address] [facility] [place] [address] Assigned PCP 08/29/20 10/08/23 Rebecca Palumbo MD [address] [place] [address] 297 [place], [place] [address] Assigned Neuroscience Provider 10/01/20 10/14/21 Magdalena Brice Personal Advocate & Liaison (PAL) 11/14/21 12/27/21 Maddie Mae Personal Advocate & Liaison (PAL) Family Medicine 12/28/21 Aydee Mcgill RN RN Clinical Product Navigator Primary Care - CC 06/30/22 06/30/22 Wendy Agustin APRN ELECTRICAL PROJECT ENGINEER [address] [facility] [address] [place] [address] Assigned PCP 10/09/23 documented as of this encounter
--- OUTSIDE RECORDS SUMMARY | 2023-12-15 01:43 | XMS_ITS | Encounter Summary ---
Author Organization [place] Address [address] [place] [address]. [place] [address] Care Team Providers Care Fisher Scallop Name Role Phone YvetteEdu DPM Unavailable [phone] Enrico Felton DO Primary Care Provider [phone] Enrico Felton DO Unavailable [phone] Rebecca Palumbo MD Unavailable [phone] Magdalena Brice Unavailable Unavailable Maddie Mae Unavailable Unavailable No Ref-Primary, Physician Primary Care Provider Enrico Felton DO Primary Care Provider [phone] Aydee Mcgill RN Unavailable [phone] Wendy Agustin APRN CONSTRUCTION CODE ADMINISTRATOR Unavailable [phone] Encounter Details Date Type Department Care Team (Late st Contact Info) Description 07/29/2021 MyC Medical Advice [facility] [address] [place] [address] [place] [id number] [place] [address] Social History Tobacco Use Types Packs/Day [...] Info) Description 12/21/2023 2:00 PM CDT Appointment [facility] Wound [facility] [address] [place] [address] [address] [place] [address] Kingsley Westbrook DPM [address] [place] [address] documented as of this encounter Goals Goal Patient Goal Type Associated Problems Recent Progress Patient-Stated? 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 per 09/01/16 factory helper note; left foot tissue 10/08/16 10/11/2018 02/27/2019 Assessment Noted Time PHQ-9 Depression Total Score: 3 08/24/19 21 12:19 PM CDT documented as of this encounter Care Teams Fisher Scallop Relationship Specialty [place] [address] [place] [address] PCP - General Family Medicine 08/24/20 01/23/22 No Ref-Primary, Physician PCP - General 02/20/22 06/29/22 [place] [address] [place] [address] PCP - General Family Medicine 06/30/22 [place] [address] [facility] [address] [place] [address] Podiatry 10/18/16 [place] [address] [place] [address] Assigned PCP 08/29/20 10/08/23 Rebecca Palumbo MD [address] [place] [address] 297 [place] [address] Assigned Neuroscience Provider 10/01/20 10/14/21 Magdalena Brice Personal Advocate & Liaison (PAL) 11/14/21 12/27/21 Maddie Mae Personal Advocate & Liaison (PAL) Family Medicine 12/28/21 Aydee Mcgill, RN RN Clinical Product Navigator Primary Care - CC 06/30/22 06/30/22 Wendy Agustin APRN CONSTRUCTION CODE ADMINISTRATOR [address] [facility] [address] [place] [address] Assigned PCP 10/09/23 documented as of this encounter
--- OUTSIDE RECORDS SUMMARY | 2023-12-15 01:43 | XMS_ITS | Encounter Summary ---
Author Organization [facility] Address [address] [place] [address]. [place] [address] Care Team Providers Care Pump Assembler Name Role Phone Edu Crawford DPM Unavailable Enrico Felton DO Unavailable [phone] Maddie Mae Unavailable Unavailable No Ref-Primary, Physician Primary Care Provider Enrico Felton DO Primary Care Provider [phone] Aydee Mcgill RN Unavailable [phone] Wendy Agustin APRN SCRAPER TENDER Unavailable [phone] Reason for Visit * Reason Onset Date Comments Refill Request 06/01/2022 omeprazole (PRIL OSEC) [address] capsule Encounter Details Date Type Department Care Team (Late st Contact Info) Description 06/01/[address] [facility] [id number] [place] [phone] [place] [address] [place] [address] Refill Request (omeprazole (PRILOSEC) 40 [...] How often do you attend baptism or adventism serv ices? Patient declined 02/20/2022 [...] Recorded PHQ-2 Score 1 02/20/2022 [facility] - Occupational [...] place to sleep or slept in a detention (including now)? No 02/20/2022 Sex and Gender Information Value Date Recorded Sex Assigned at Not on file Gender Identity Not on file Sexual Orientation Not on file documented as of this encounter Miscellaneous Notes * Telephone Encounter - [employer] - 06/01/2022 1:55 PM CDT [employer] message sent to patient to schedule [employer]/ Secretary Board Of Commissioners * Telephone Encounter - Ángela Hernández RN [...] Description 12/21/2023 2:[address] [facility] [place] [address] [place] [address] [address] [place] [address] Kingsley Westbrook DPM [address] [place] [address] documented as of this encounter Goals Goal Patient Goal Type Associated Problems Recent Progress Patient-Stated? Author Financial Wellbeing General Yes Rosey Alexander, PROFILER OPERATOR documented as of this encounter Visit Diagnoses Not on filedocumented in this encounter Additional Health Concerns Infection Onset Date Last Indicated Resolved Time 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 per 09/01/16 toy mechanic note; left foot tissue 10/08/16 10/11/2018 02/27/2019 Assessment Noted Time PHQ-9 Depression Total Score: 5 02/21/20 2:07 PM WIRELESS FIELD TECHNICIAN documented as of this encounter Care Teams Pump Assembler Relationship Specialty Start Date End Date No Ref-Primary, Physician PCP - General 02/20/22 06/29/22 [place] [address] [place] [address] PCP - General Family Medicine 06/30/22 [place] [address] [facility] [address] [place] [address] Podiatry 10/18/16 [place] [address] [place] [address] Assigned PCP 08/29/20 10/08/23 Maddie Mae Personal Advocate & Liaison (PAL) Family Medicine 12/28/21 Aydee Mcgill RN ROQUE Clinical Product Navigator Primary Care - CC 06/30/22 06/30/22 Wendy Agustin APRN SCRAPER TENDER [address] [facility] [address] [place] [address] Assigned PCP 10/09/23 documented as of this encounter
--- OUTSIDE RECORDS SUMMARY | 2023-12-15 01:43 | XMS_ITS | Encounter Summary ---
Author Organization [facility] Address [address] [place] [address] Care Team Providers Care Bedspring Assembler Name Role Phone MirandacliftonEdu DPM Unavailable [phone] Enrico Felton DO Primary Care Provider [phone] Enrico Felton DO Unavailable [phone] Magdalena Brice Unavailable Unavailable Maddie Mae Unavailable Unavailable No Ref-Primary, Physician Primary Care Provider Enrico Felton DO Primary Care Provider [phone] Aydee Mcgill RN Unavailable [phone] Wendy Agustin LACQUER MAKER NATURAL RESOURCES INSTRUCTOR Unavailable [phone] Encounter Details Date Type Department Care Team (Late st Contact Info) Description 10/20/2021 MyC Medical Advice [address] [place] [address] Melida Pickering, STAFFING SPECIALIST Social History Tobacco Use Types Packs/Day [...] CDT Appointment [facility] [place] [address] [place] [address] [address] [place] [address] Kingsley Westbrook DPM [address] [place] [address] documented as of this encounter Goals Goal Patient Goal Type Associated Problems Recent Progress Patient-Stated? Author Financial Wellbeing General Yes Rosey Alexander, SUPERVISOR FINISH END documented as of this encounter Visit Diagnoses Not on filedocumented in this encounter Additional Health Concerns Infection Onset Date Last Indicated Resolved Time 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 per 09/01/16 scouring train operator chief note; left foot tissue 10/08/16 10/11/2018 02/27/2019 Assessment Noted Time PHQ-9 Depression Total Score: 3 08/24/19 21 12:19 PM CDT documented as of this encounter Care Teams Bedspring Assembler Relationship Specialty [place] [address] [place] [address] PCP - General Family Medicine 08/24/20 01/23/22 No Ref-Primary, Physician PCP - General 02/20/22 06/29/22 [place] [address] [place] [address] PCP - General Family Medicine 06/30/22 [place] [address] [facility] [address] [place] [address] Podiatry 10/18/16 [place] [address] [place] [address] Assigned PCP 08/29/20 10/08/23 Magdalena Brice Personal Advocate & Liaison (PAL) 11/14/21 12/27/21 Maddie Mae Personal Advocate & Liaison (PAL) Family Medicine 12/28/21 Aydee Mcgill RN RN Clinical Product Navigator Primary Care - CC 06/30/22 06/30/22 Wendy Agustin APRN NATURAL RESOURCES INSTRUCTOR [address] [facility] [address] [place] [address] Assigned PCP 10/09/23 documented as of this encounter
--- OUTSIDE RECORDS SUMMARY | 2023-12-15 01:43 | XMS_ITS | Encounter Summary ---
Author Organization [facility] Address [address] [place] [address]. [place] [address] Care Team Providers Care Wire Brush Maker Name Role Phone Yvette Edu DPM Unavailable [phone] Enrico Felton DO Primary Care Provider [phone] Enrico Felton DO Unavailable [phone] Rebecca Palumbo MD Unavailable [phone] Anders Ramachandran Unavailable Unavailable Magdalena Brice Unavailable Unavailable Maddie Mae Unavailable Unavailable No Ref-Primary, Physician Primary Care Provider Enrico Felton DO Primary Care Provider [phone] Aydee Mcgill RN Unavailable [phone] Wendy Agustin APRN INSPECTOR EXPERIMENTAL ASSEMBLY Unavailable [phone] Encounter Details Date Type Department Care Team (Late st Contact Info) Description 03/10/2021 MyC Medical Advice [facility] [id number] [place] [phone] [place] [id number] [place] [address] Social History Tobacco Use Types Packs/Day [...] Info) Description 12/21/2023 2:00 PM CDT Appointment [facility] [address] [place] [address] [address] [place] [address] Kingsley Westbrook DPM [address] [place], [place] [address] documented as of this encounter Goals Goal Patient Goal Type Associated Problems Recent Progress Patient-Stated? Author Financial Wellbeing General Yes Rosey Alexander, BODYWORK THERAPIST documented as of this encounter Visit Diagnoses Not on filedocumented in this encounter Additional Health Concerns Infection Onset Date Last Indicated Resolved Time 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 per 09/01/16 front office specialist note; left foot tissue 10/08/16 10/11/2018 02/27/2019 Assessment Noted Time PHQ-9 Depression Total Score: 3 08/24/19 21 12:19 PM CDT documented as of this encounter Care Teams Wire Brush Maker Relationship Specialty Start [place] [address] [place] [address] PCP - General Family Medicine 08/24/20 01/23/22 No Ref-Primary, Physician PCP - General 02/20/22 06/29/22 [place] [address] [place] [address] PCP - General Family Medicine 06/30/22 [place] [address] [facility] [address] [place] [address] Podiatry 10/18/16 [place] [address] [address] [address] Assigned PCP 08/29/20 10/08/23 Rebecca Palumbo MD [address] [place] [address] [address] [place], [place] [address] Assigned Neuroscience Provider 10/01/20 10/14/21 Anders Ramachandran Personal Advocate & Liaison (PAL) 10/14/20 07/07/21 Magdalena Brice Personal Advocate & Liaison (PAL) 11/14/21 12/27/21 Maddie Mae Personal Advocate & Liaison (PAL) Family Medicine 12/28/21 Aydee Mcgill RN ROQUE Clinical Product Navigator Primary Care - CC 06/30/22 06/30/22 Wendy Agustin APRN INSPECTOR EXPERIMENTAL ASSEMBLY [address] [facility] [address] [place] [address] Assigned PCP 10/09/23 documented as of this encounter
--- OUTSIDE RECORDS SUMMARY | 2023-12-15 01:43 | XMS_ITS | Encounter Summary ---
Author Organization [facility] Address [address] [place] [address] Care Team Providers Care Wound Specialist Name Role Phone YvetteEdu DPM Unavailable [phone] Enrico Felton DO Primary Care Provider [phone] Enrico Felton DO Unavailable [phone] Rebecca Palumbo MD Unavailable [phone] Magdalena Brice Unavailable Unavailable Maddie Mae Unavailable Unavailable No Ref-Primary, Physician Primary Care Provider Enrico Felton DO Primary Care Provider [phone] Aydee Mcgill RN Unavailable [phone] Wendy Agustin APRN INSIDE SALES ASSISTANT Unavailable [phone] Encounter Details Date Type Department Care Team (Late st Contact Info) Description 08/23/[address] [facility] [address] [place] [address] Melida Pickering, BONE CHAR OPERATOR Social History Tobacco Use Types Packs/Day [...] Description 12/21/2023 2:[address] [facility] [place] [address] [place] [address] Kingsley Westbrook DPM [address] [place] [address] documented as of this encounter Goals Goal Patient Goal Type Associated Problems Recent Progress Patient-Stated? Author Financial Wellbeing General Yes Rosey Alexander, CLINICAL ADMINISTRATIVE COORDINATOR documented as of this encounter Visit Diagnoses Not on filedocumented in this encounter Additional Health Concerns Infection Onset Date Last Indicated Resolved Time 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 per 09/01/16 medical scheduler note; left foot tissue 10/08/16 10/11/2018 02/27/2019 Assessment Noted Time PHQ-9 Depression Total Score: 3 08/24/19 21 12:19 PM CDT documented as of this encounter Care Teams Wound Specialist Relationship Specialty Start [place] [address] [place] [address] PCP - General Family Medicine 08/24/20 01/23/22 No Ref-Primary, Physician PCP - General 02/20/22 06/29/22 [place] [address] [facility] [place] [address] PCP - General Family Medicine 06/30/22 [place] [address] [facility] [address] [place] [address] Podiatry 10/18/16 [place] [address] [facility] [place] [address] Assigned PCP 08/29/20 10/08/23 Rebecca Palumbo MD [address] [place] [address] [address] [place], [place] [address] Assigned Neuroscience Provider 10/01/20 10/14/21 Magdalena Brice Personal Advocate & Liaison (PAL) 11/14/21 12/27/21 Maddie Mae Personal Advocate & Liaison (PAL) Family Medicine 12/28/21 Aydee Mcgill RN RN Clinical Product Navigator Primary Care - CC 06/30/22 06/30/22 Wendy Agustin APRN INSIDE SALES ASSISTANT [address] [facility] [address] [place] [address] Assigned PCP 10/09/23 documented as of this encounter
--- OUTSIDE RECORDS SUMMARY | 2023-12-15 01:43 | XMS_ITS | Encounter Summary ---
Author Organization [facility] Address [address] [place] [address]. [place] [address] Care Team Providers Care Branch Account Executive Name Role Phone Yvette Edu DPM Unavailable [phone] Enrico Felton DO Primary Care Provider [phone] Enrico Felton DO Unavailable [phone] Rebecca Palumbo MD Unavailable [phone] Anders Ramachandran Unavailable Unavailable Magdalena Brice Unavailable Unavailable Maddie Mae Unavailable Unavailable No Ref-Primary, Physician Primary Care Provider Enrico Felton DO Primary Care Provider [phone] Aydee Mcgill RN Unavailable [phone] Wendy Agustin APRN WARDROBE MANAGER Unavailable [phone] Encounter Details Date Type Department Care Team (Late st Contact Info) Description 04/14/2021 MyC Medical Advice [facility] [address] [place] [address] [place] [id number] [place] [address] Social History Tobacco Use Types Packs/Day [...] Info) Description 12/21/2023 2:00 PM CDT Appointment [facility] [address] [place] [address] [address] [place] [address] Kingsley Westbrook DPM [address] [place], [place] [address] documented as of this encounter Goals Goal Patient Goal Type Associated Problems Recent Progress Patient-Stated? Author Financial Wellbeing General Yes Rosey Alexander, STEEL FITTER documented as of this encounter Visit Diagnoses Not on filedocumented in this encounter Additional Health Concerns Infection Onset Date Last Indicated Resolved Time 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 per 09/01/16 cuff turner machine operator note; left foot tissue 10/08/16 10/11/2018 02/27/2019 Assessment Noted Time PHQ-9 Depression Total Score: 3 08/24/19 21 12:19 PM CDT documented as of this encounter Care Teams Branch Account Executive Relationship Specialty [place] [address] [place] [address] PCP - General Family Medicine 08/24/20 01/23/22 No Ref-Primary, Physician PCP - General 02/20/22 06/29/22 [place] [address] [place] [address] PCP - General Family Medicine 06/30/22 [place] [address] [facility] [address] [place] [address] Podiatry 10/18/16 [place] [address] [address] [place] [address] Assigned PCP 08/29/20 10/08/23 Rebecca Palumbo MD [address] [place] [address] 297 [place], [place] [address] Assigned Neuroscience Provider 10/01/20 10/14/21 Anders Ramachandran Personal Advocate & Liaison (PAL) 10/14/20 07/07/21 Magdalena Brice Personal Advocate & Liaison (PAL) 11/14/21 12/27/21 Maddie Mae Personal Advocate & Liaison (PAL) Family Medicine 12/28/21 Aydee Mcgill RN ROQUE Clinical Product Navigator Primary Care - CC 06/30/22 06/30/22 Wendy Agustin APRN WARDROBE MANAGER [address] [facility] [address] [place] [address] Assigned PCP 10/09/23 documented as of this encounter
--- OUTSIDE RECORDS SUMMARY | 2023-12-15 01:43 | XMS_ITS | Encounter Summary ---
Author Organization [facility] Address [address] [place] [address]. [place] [address] Care Team Providers Care Engineering Mgr Name Role Phone Yvette Edu DPM Unavailable [phone] Enrico Felton DO Primary Care Provider [phone] Enrico Felton DO Unavailable [phone] Rebecca Palumbo MD Unavailable [phone] Anders Ramachandran Unavailable Unavailable Magdalena Brice Unavailable Unavailable Maddie Mae Unavailable Unavailable No Ref-Primary, Physician Primary Care Provider Enrico Felton DO Primary Care Provider [phone] Aydee Mcgill RN Unavailable [phone] Wendy Agustin APRN SALES PROMOTION COORDINATOR Unavailable [phone] Encounter Details Date Type Department Care Team (Late st Contact Info) Description 06/01/2021 MyC Medical Advice [facility] [address] [place] [phone] [place] [address] [place] [address] Social History Tobacco Use Types Packs/Day [...] Appointment [facility] [address] [place] [address] [address] [place] [address] Kingsley Westbrook DPM [address] [place], [place] [address] documented as of this encounter Goals Goal Patient Goal Type Associated Problems Recent Progress Patient-Stated? 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 per 09/01/16 actuarial assistant note; left foot tissue 10/08/16 10/11/2018 02/27/2019 Assessment Noted Time PHQ-9 Depression Total Score: 3 08/24/19 21 12:19 PM CDT documented as of this encounter Care Teams Engineering Mgr Relationship Specialty [place] [address] [place] [address] PCP - General Family Medicine 08/24/20 01/23/22 No Ref-Primary, Physician PCP - General 02/20/22 06/29/22 [place] [address] [place] [address] PCP - General Family Medicine 06/30/22 [place] [address] [facility] [address] [place] [address] Podiatry 10/18/16 [place] [address] [address] [address] Assigned PCP 08/29/20 10/08/23 Rebecca Palumbo MD [address] [place] [address] 297 [place], [place] 54[address] Assigned Neuroscience Provider 10/01/20 10/14/21 Anders Ramachandran Personal Advocate & Liaison (PAL) 10/14/20 07/07/21 Magdalena Brice Personal Advocate & Liaison (PAL) 11/14/21 12/27/21 Maddie Mae Personal Advocate & Liaison (PAL) Family Medicine 12/28/21 Aydee Mcgill RN ROQUE Clinical Product Navigator Primary Care - CC 06/30/22 06/30/22 Wendy Agustin APRN SALES PROMOTION COORDINATOR [address] [facility] [address] [place] [address] Assigned PCP 10/09/23 documented as of this encounter
--- OUTSIDE RECORDS SUMMARY | 2023-12-15 01:43 | XMS_ITS | Encounter Summary ---
Author Organization [facility] Address [address] [place] [address] Care Team Providers Care Automatic Toe Laster Name Role Phone Shermannoah Edu DPM Unavailable Enrico Felton DO Unavailable [phone] Maddie Mae Unavailable Unavailable No Ref-Primary, Physician Primary Care Provider Enrico Felton DO Primary Care Provider [phone] Aydee Mcgill RN Unavailable [phone] Wendy Agustin APRN CLINICAL TRIALS NURSE Unavailable [phone] Encounter Details Date Type Department Care Team (Late st Contact Info) Description 06/26/2022 MyC Medical Advice [address] [phone] Katie Velasquez, ROQUE Social History [...] Never 02/20/2022 How often do you attend mormonism or temple serv ices? Patient declined 02/20/2022 Do you belong to any clubs o r organizations such as mormonism groups, unions, fraternal or athletic groups, or [...] Answer Date Recorded PHQ-2 Score 1 02/20/2022 [facility] - Occupational Stress Questionnaire Answer [...] Appointment [facility] [address] [place] [address] Kingsley Westbrook DPM [address] [place] [address] documented as of this encounter Goals Goal Patient Goal Type Associated Problems Recent Progress Patient-Stated? Author Financial Wellbeing General Yes Rosey Alexander, WELDING MACHINE OPERATOR documented as of this encounter Visit Diagnoses Not on filedocumented in this encounter Additional Health Concerns Infection Onset Date Last Indicated Resolved Time 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 per 09/01/16 cleaner and trimmer note; left foot tissue 10/08/16 10/11/2018 02/27/2019 Assessment Noted Time PHQ-9 Depression Total Score: 5 02/21/20 22 2:07 PM PRUNE WASHER documented as of this encounter Care Teams Automatic Toe Laster Relationship Specialty Start Date End Date No Ref-Primary, Physician PCP - General 02/20/22 06/29/22 [place] [address] [place] [address] PCP - General Family Medicine 06/30/22 [place] [address] [facility] [address] [place] [address] Podiatry 10/18/16 [place] [address] [place] [address] Assigned PCP 08/29/20 10/08/23 Maddie Mae Personal Advocate & Liaison (PAL) Family Medicine 12/28/21 Aydee Mcgill RN RN Clinical Product Navigator Primary Care - CC 06/30/22 06/30/22 Wendy Agustin APRN CLINICAL TRIALS NURSE [address] [facility] [address] [place] [address] Assigned PCP 10/09/23 documented as of this encounter
--- OUTSIDE RECORDS SUMMARY | 2023-12-15 01:43 | XMS_ITS | Encounter Summary ---
Author Organization [facility] Address [address] [place] [address]. [place] [address] Care Team Providers Care Welder Metal Fab Name Role Phone Yvette Edu DPM Unavailable [phone] Enrico Felton DO Primary Care Provider [phone] Enrico Felton DO Unavailable [phone] Rebecca Palumbo MD Unavailable [phone] Anders Ramachandran Unavailable Unavailable Magdalena Brice Unavailable Unavailable Maddie Mae Unavailable Unavailable No Ref-Primary, Physician Primary Care Provider Enrico Felton DO Primary Care Provider [phone] Aydee Mcgill RN Unavailable [phone] Wendy Agustin APRN MODEL SET ARTIST Unavailable [phone] Encounter Details Date Type Department Care Team (Late st Contact Info) Description 01/27/2021 MyC Medical Advice [facility] [address] [place] [phone] [place] DO [id number] [place] [address] Social History Tobacco Use Types Packs/Day [...] PM CDT Appointment [facility] [address] [place] [address] [address] [place] [address] Kingsley Westbrook DPM [address] [place], [place] [address] documented as of this encounter Goals Goal Patient Goal Type Associated Problems Recent Progress Patient-Stated? Author Financial Wellbeing General Yes Rosey Alexander, GLASSWARE SELECTOR documented as of this encounter Visit Diagnoses Not on filedocumented in this encounter Additional Health Concerns Infection Onset Date Last Indicated Resolved Time 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 per 09/01/16 guest services manager note; left foot tissue 10/08/16 10/11/2018 02/27/2019 Assessment Noted Time PHQ-9 Depression Total Score: 3 08/24/19 21 12:19 PM CDT documented as of this encounter Care Teams Welder Metal Fab Relationship Specialty Start [place] [address] [place] [address] PCP - General Family Medicine 08/24/20 01/23/22 No Ref-Primary, Physician PCP - General 02/20/22 06/29/22 [place] [address] [place] [address] PCP - General Family Medicine 06/30/22 [place] [address] [facility] [address] [place] [address] Podiatry 10/18/16 [place] [address] [place] [address] Assigned PCP 08/29/20 10/08/23 Rebecca Palumbo MD [address] [place] [address] 297 [place], [place] [address] Assigned Neuroscience Provider 10/01/20 10/14/21 Anders Ramachandran Personal Advocate & Liaison (PAL) 10/14/20 07/07/21 Magdalena Brice Personal Advocate & Liaison (PAL) 11/14/21 12/27/21 Maddie Mae Personal Advocate & Liaison (PAL) Family Medicine 12/28/21 Aydee Mcgill RN ROQUE Clinical Product Navigator Primary Care - CC 06/30/22 06/30/22 Wendy Agustin APRN MODEL SET ARTIST [address] [facility] [address] [place] [address] Assigned PCP 10/09/23 documented as of this encounter
--- OUTSIDE RECORDS SUMMARY | 2023-12-15 01:43 | XMS_ITS | Encounter Summary ---
Author Organization [facility] Address [address] [place] [address] Care Team Providers Care Customs And Border Protection Officer Name Role Phone YvetteEdu DPM Unavailable [phone] Enrico Felton DO Primary Care Provider [phone] Enrico Felton DO Unavailable Rebecca Palumbo MD Unavailable [phone] Magdalena Brice Unavailable Unavailable Maddie Mae Unavailable Unavailable No Ref-Primary, Physician Primary Care Provider Enrico Felton DO Primary Care Provider [phone] Aydee Mcgill RN Unavailable [phone] Wendy Agustin APRN FLAKEBOARD LINE TENDER Unavailable [phone] Encounter Details Date Type Department Care Team (Late st Contact Info) Description 07/08/2021 MyC Medical Advice [facility] [address] [place] [address] Cy Leonardo Social History Tobacco [...] CDT Appointment [facility] [place] [address] [place] [address] Kingsley Westbrook DPM [address] [place] [address] documented as of this encounter Goals Goal Patient Goal Type Associated Problems Recent Progress Patient-Stated? Author Financial Wellbeing General Yes Rosey Alexander, WILL CALL CLERK documented as of this encounter Visit Diagnoses Not on filedocumented in this encounter Additional Health Concerns Infection Onset Date Last Indicated Resolved Time 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 per 09/01/16 computer equipment installer note; left foot tissue 10/08/16 10/11/2018 02/27/2019 Assessment Noted Time PHQ-9 Depression Total Score: 3 08/24/19 21 12:19 PM CDT documented as of this encounter Care Teams Customs And Border Protection Officer Relationship Specialty [place] [address] [place] [address] PCP - General Family Medicine 08/24/20 01/23/22 No Ref-Primary, Physician PCP - General 02/20/22 06/29/22 [place] [address] [facility] [facility] [place] [address] PCP - General Family Medicine 06/30/22 [place] [address] [facility] [address] [place] [address] Podiatry 10/18/16 [place] [address] [place] [address] Assigned PCP 08/29/20 10/08/23 Rebecca Palumbo MD [address] [place] [address] [address] [place], [place] [address] Assigned Neuroscience Provider 10/01/20 10/14/21 Magdalena Brice Personal Advocate & Liaison (PAL) 11/14/21 12/27/21 Maddie Mae Personal Advocate & Liaison (PAL) Family Medicine 12/28/21 Aydee Mcgill RN RN Clinical Product Navigator Primary Care - CC 06/30/22 06/30/22 Wendy Agustin APRN FLAKEBOARD LINE TENDER [address] [facility] [address] [place], [place] [address] Assigned PCP 10/09/23 documented as of this encounter
--- OUTSIDE RECORDS SUMMARY | 2023-12-15 01:43 | XMS_ITS | Encounter Summary ---
Author Organization [facility] Address [address] [place] [address] Care Team Providers Care Dairy Worker Name Role Phone Edu Crawford DPM Unavailable [phone] Enrico Felton DO Unavailable [phone] Maddie Mae Unavailable Unavailable No Ref-Primary, Physician Primary Care Provider Enrico Felton DO Primary Care Provider [phone] Aydee Mcgill RN Unavailable [phone] Wendy Agustin APRN INSURANCE SALES ASSISTANT Unavailable [phone] Encounter Details Date Type Department Care Team (Late st Contact Info) Description 06/01/2022 MyC Medical Advice [address] [address] America Green Social History Tobacco Use Types [...] How often do you attend taoist or mosque serv ices? Patient declined 02/20/2022 [...] CDT Appointment [facility] [place] [address] [place] [address] [address] [place] [address] Kingsley Westbrook DPM [address] [place], [place] [address] documented as of this encounter Goals Goal Patient Goal Type Associated Problems Recent Progress Patient-Stated? Author Financial Wellbeing General Yes Rosey Alexander, CIVIL ENGINEER'S AIDE documented as of this encounter Visit Diagnoses Not on filedocumented in this encounter Additional Health Concerns Infection Onset Date Last Indicated Resolved Time 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 per 09/01/16 ice puller note; left foot tissue 10/08/16 10/11/2018 02/27/2019 Assessment Noted Time PHQ-9 Depression Total Score: 5 02/21/20 22 2:07 PM BOILER OUT documented as of this encounter Care Teams Dairy Worker Relationship Specialty Start Date End Date No Ref-Primary, Physician PCP - General 02/20/22 06/29/22 [place] [address] [place] [address] PCP - General Family Medicine 06/30/22 [place] [address] [facility] [address] [place] [address] Podiatry 10/18/16 [place] [address] [place] [address] Assigned PCP 08/29/20 10/08/23 Maddie Mae Personal Advocate & Liaison (PAL) Family Medicine 12/28/21 Aydee Mcgill RN ROQUE Clinical Product Navigator Primary Care - CC 06/30/22 06/30/22 Wendy Agustin APRN INSURANCE SALES ASSISTANT [address] [facility] [address] [place] [address] Assigned PCP 10/09/23 documented as of this encounter
--- OUTSIDE RECORDS SUMMARY | 2023-12-15 01:43 | XMS_ITS | Encounter Summary ---
Author Organization [facility] Address [address] [place] [address]. [place] [address] Care Team Providers Care Box Estimator Name Role Phone Edu Crawford DPM Unavailable [phone] Enrico Felton DO Unavailable [phone] Maddie Mae Unavailable Unavailable No Ref-Primary, Physician Primary Care Provider Enrico Felton DO Primary Care Provider Aydee Mcgill RN Unavailable [phone] Wendy Agustin APRN PARK INTERPRETER Unavailable [phone] Reason for Visit * Reason Onset Date Comments Refill Request 06/23/2022 oxybutynin ER (D ITROPAN XL) 5 MG 24 hr tablet Encounter Details Date Type Department Care Team (Late st Contact Info) Description 06/23/2022 Telephone [facility] [address] [place] [address] [place] [address] [place] [address] Refill Request (oxybutynin ER (DITROPAN XL) [...] Never 02/20/2022 How often do you attend buddhist or congregation serv ices? Patient declined 02/20/2022 Do you belong to any clubs o r organizations such as buddhist groups, unions, fraternal or athletic groups, or [...] 1 02/20/2022 [facility] - Occupational Stress Questionnaire Answer Date [...] to same recorded line. Has not read [employer] message. We have now made 5 attempts [...] if it a work number for Alyssa. [employer] message sent. Katie Velasquez R.N. * Telephone [...] Info) Description 12/21/2023 2:00 PM CDT Appointment [facility] [place] [address] [place] [address] Kingsley Westbrook DPM [address] [place] [id number] documented as of this encounter Goals Goal Patient Goal Type Associated Problems Recent Progress Patient-Stated? Author Financial Wellbeing General Yes Rosey Alexander, TELEMETRY TECH documented as of this encounter Visit Diagnoses Not on filedocumented in this encounter Additional Health Concerns Infection Onset Date Last Indicated Resolved Time 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 per 09/01/16 levelman note; left foot tissue 10/08/16 10/11/2018 02/27/2019 Assessment Noted Time PHQ-9 Depression Total Score: 5 02/21/20 22 2:07 PM CORPORATE REAL ESTATE SPECIALIST documented as of this encounter Care Teams Box Estimator Relationship Specialty Start Date End Date No Ref-Primary, Physician PCP - General 02/20/22 06/29/22 [place] [address] [place] [address] PCP - General Family Medicine 06/30/22 [place] [address] [facility] [address] [place] [address] Podiatry 10/18/16 [place] [address] [place] [address] Assigned PCP 08/29/20 10/08/23 Maddie Mae Personal Advocate & Liaison (PAL) Family Medicine 12/28/21 Aydee Mcgill RN RN Clinical Product Navigator Primary Care - CC 06/30/22 06/30/22 Wendy Agustin APRN PARK INTERPRETER [address] [facility] [address] [place] [address] Assigned PCP 10/09/23 documented as of this encounter
--- OUTSIDE RECORDS SUMMARY | 2023-12-15 01:43 | XMS_ITS | Encounter Summary ---
Author Organization [facility] Address [address] [place] [address] Care Team Providers Care Cashier Tube Room Name Role Phone YvetteEdu DPM Unavailable [phone] Enrico Felton DO Primary Care Provider [phone] Enrico Felton DO Unavailable [phone] Rebecca Palumbo MD Unavailable [phone] Anders Ramachandran Unavailable Unavailable Magdalena Brice Unavailable Unavailable Maddie Mae Unavailable Unavailable No Ref-Primary, Physician Primary Care Provider Enrico Felton DO Primary Care Provider [phone] Aydee Mcgill RN Unavailable [phone] Wendy Agustin APRN BINDING CEMENTER FRENCH CORD Unavailable [phone] Encounter Details Date Type Department Care Team (Late st Contact Info) Description 02/24/2021 MyC Medical Advice [facility] [address] [place] [address] America Green Social History Tobacco Use [...] PM CDT Appointment [facility] [address] [place] [address] Kingsley Westbrook DPM [address] [place], [place] [address] documented as of this encounter Goals Goal Patient Goal Type Associated Problems Recent Progress Patient-Stated? Author Financial Wellbeing General Yes Rosey Alexander K, MANAGER WORK documented as of this encounter Visit Diagnoses Not on filedocumented in this encounter Additional Health Concerns Infection Onset Date Last Indicated Resolved Time 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 per 09/01/16 speed belt sander note; left foot tissue 10/08/16 10/11/2018 02/27/2019 Assessment Noted Time PHQ-9 Depression Total Score: 3 08/24/19 21 12:19 PM CDT documented as of this encounter Care Teams Cashier Tube Room Relationship Specialty [place] [address] [place] [address] PCP - General Family Medicine 08/24/20 01/23/22 No Ref-Primary, Physician PCP - General 02/20/22 06/29/22 [place] [address] [place] [address] PCP - General Family Medicine 06/30/22 [place] [address] [facility] [address] [place] [address] Podiatry 10/18/16 [place] [address] [place] [address] Assigned PCP 08/29/20 10/08/23 Rebecca Palumbo MD [address] [place] [address] [address] [place] [address] Assigned Neuroscience Provider 10/01/20 10/14/21 Anders Ramachandran Personal Advocate & Liaison (PAL) 10/14/20 07/07/21 Magdalena Brice Personal Advocate & Liaison (PAL) 11/14/21 12/27/21 Maddie Mae Personal Advocate & Liaison (PAL) Family Medicine 12/28/21 Aydee Mcgill RN RN Clinical Product Navigator Primary Care - CC 06/30/22 06/30/22 Wendy Agustin APRN BINDING CEMENTER FRENCH CORD [facility] [address] [facility] [address] [place] [address] Assigned PCP 10/09/23 documented as of this encounter
--- OUTSIDE RECORDS SUMMARY | 2023-12-15 01:43 | XMS_ITS | Encounter Summary ---
Author Organization [facility] Address [address] [place] [address]. [place] [address] Care Team Providers Care Entry Level Project Coordinator Name Role Phone MirandacliftonEdu DPM Unavailable [phone] Enrico Felton DO Unavailable [phone] Maddie Mae Unavailable Unavailable No Ref-Primary, Physician Primary Care Provider Enrico Felton DO Primary Care Provider [phone] Aydee Mcgill RN Unavailable [phone] Wendy Agustin APRN GALLERY MANAGER Unavailable [phone] Reason for Visit * Reason Onset Date Comments Refill Request 02/08/2022 lisinopril (ZEST RIL) 20 MG tablet Encounter Details Date Type Department Care Team (Late st Contact Info) Description 02/08/2022 Refill [facility] [address] [place] [address] [place] [address] [place] [address] Refill Request (lisinopril (ZESTRIL) 20 MG [...] I will refill lisinopril for 30 days. Y GLAZER * Telephone Encounter - Ivanna Turner RN [...] Has visit scheduled 02/20/22. Ivanna Glover RN Y GLAZER documented in this encounter Plan of Treatment Upcoming Encounters Date Type Department Care Team (Late st Contact Info) Description 12/21/2023 2:[address] [facility] [address] [place] [address] Kingsley Westbrook DPM [address] [place] [address] documented as of this encounter Goals Goal Patient Goal Type Associated Problems Recent Progress Patient-Stated? 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 clay pigeon loader note; left foot tissue 10/08/16 10/11/2018 02/27/2019 Assessment Noted Time PHQ-9 Depression Total Score: 3 08/24/19 21 12:19 PM CDT documented as of this encounter Care Teams Entry Level Project Coordinator Relationship Specialty Start Date End Date No Ref-Primary, Physician PCP - General 02/20/22 06/29/22 [place] [address] [place] [address] PCP - General Family Medicine 06/30/22 [place] [address] [facility] [address] [place], [place] [address] Podiatry 10/18/16 [place] [address] [place] [address] Assigned PCP 08/29/20 10/08/23 Maddie Mae Personal Advocate & Liaison (PAL) Family Medicine 12/28/21 Aydee cMgill RN ROQUE Clinical Product Navigator Primary Care - CC 06/30/22 06/30/22 Wendy Agustin APRN GALLERY MANAGER [address] [facility] [address] [place] [address] Assigned PCP 10/09/23 documented as of this encounter
--- OUTSIDE RECORDS SUMMARY | 2023-12-15 01:43 | XMS_ITS | Encounter Summary ---
Author Organization [facility] Address [address] [place] [address] Care Team Providers Care Tonnage Compilation Clerk Name Role Phone MirandacliftonEdu DPM Unavailable Enrico Felton DO Unavailable [phone] Maddie Mae Unavailable Unavailable No Ref-Primary, Physician Primary Care Provider Enrico Felton DO Primary Care Provider [phone] Aydee Mcgill RN Unavailable [phone] Wendy Agustin APRN HAUL TRUCK DRIVER Unavailable [phone] Encounter Details Date Type Department Care Team (Late st Contact Info) Description 03/23/2022 MyC Medical Advice [address] [address] Melida Pickering, JAYCEE Social History Tobacco Use [...] Never 02/20/2022 How often do you attend yazidi or roman catholic serv ices? Patient declined 02/20/2022 Do you belong to any clubs o r organizations such as yazidi groups, unions, fraternal or athletic groups, or [...] Answer Date Recorded PHQ-2 Score 1 02/20/2022 [facility] - Occupational Stress Questionnaire Answer [...] Info) Description 12/21/2023 2:00 PM CDT Appointment [facility] [address] [place] [address] Kingsley Westbrook DPM [address] [place], [place] [address] documented as of this encounter Goals Goal Patient Goal Type Associated Problems Recent Progress Patient-Stated? Author Financial Wellbeing General Yes Rosey Alexander, CENTRIFUGAL WAX MOLDER documented as of this encounter Visit Diagnoses Not on filedocumented in this encounter Additional Health Concerns Infection Onset Date Last Indicated Resolved Time 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 per 09/01/16 field geologist note; left foot tissue 10/08/16 10/11/2018 02/27/2019 Assessment Noted Time PHQ-9 Depression Total Score: 5 02/21/20 22 2:07 PM SDV PILOT/NAVIGATOR/DDS OPERATOR documented as of this encounter Care Teams Tonnage Compilation Clerk Relationship Specialty Start Date End Date No Ref-Primary, Physician PCP - General 02/20/22 06/29/22 [place] [address] [place] [address] PCP - General Family Medicine 06/30/22 [place] [address] [facility] [address] [place] [address] Podiatry 10/18/16 [place] [address] [place] [address] Assigned PCP 08/29/20 10/08/23 Maddie Mae Personal Advocate & Liaison (PAL) Family Medicine 12/28/21 Aydee Mcgill RN ROQUE Clinical Product Navigator Primary Care - CC 06/30/22 06/30/22 Wendy Agustin APRN HAUL TRUCK DRIVER [address] [place] [address] Assigned PCP 10/09/23 documented as of this encounter
--- OUTSIDE RECORDS SUMMARY | 2023-12-15 01:43 | XMS_ITS | Encounter Summary ---
Author Organization [facility] Address [address] [place] [address] Care Team Providers Care Litigation Claim Representative Name Role Phone MirandacliftonEdu DPM Unavailable [phone] Enrico Felton DO Primary Care Provider [phone] Enrico Felton DO Unavailable [phone] Maddie Mae Unavailable Unavailable No Ref-Primary, Physician Primary Care Provider Enrico Felton DO Primary Care Provider [phone] Aydee Mcgill RN Unavailable [phone] Wendy Agustin MANAGER STRATEGIC MARKETING CASTING WHEEL OPERATOR HELPER Unavailable [phone] Encounter Details Date Type Department Care Team (Late st Contact Info) Description 01/20/2022 MyC Medical Advice [address] [address] America Green Social History Tobacco Use Types [...] 12/21/2023 2:00 PM CDT Appointment [facility] [place] [address] [place] [phone] Kingsley Westbrook DPM [address] [place] [address] documented as of this encounter Goals Goal Patient Goal Type Associated Problems Recent Progress Patient-Stated? Author Financial Wellbeing General Yes Rosey Alexander, NON DESTRUCTIVE EVALUATION TECHNICIAN documented as of this encounter Visit Diagnoses Not on filedocumented in this encounter Additional Health Concerns Infection Onset Date Last Indicated Resolved Time 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 per 09/01/16 cow rider note; left foot tissue 10/08/16 10/11/2018 02/27/2019 Assessment Noted Time PHQ-9 Depression Total Score: 3 08/24/19 21 12:19 PM CDT documented as of this encounter Care Teams Litigation Claim Representative Relationship Specialty Start [place] [address] [place] [address] PCP - General Family Medicine 08/24/20 01/23/22 No Ref-Primary, Physician PCP - General 02/20/22 06/29/22 [place] [address] [facility] [place] [address] PCP - General Family Medicine 06/30/22 [place] [address] [facility] [address] [place] [address] Podiatry 10/18/16 [place] [address] [place] [address] Assigned PCP 08/29/20 10/08/23 Maddie Mae Personal Advocate & Liaison (PAL) Family Medicine 12/28/21 Aydee Mcgill RN RN Clinical Product Navigator Primary Care - CC 06/30/22 06/30/22 Wendy Agustin APRN [facility] [address] [facility] [address] [place] [address] Assigned PCP 10/09/23 documented as of this encounter
--- OUTSIDE RECORDS SUMMARY | 2023-12-15 01:43 | XMS_ITS | Encounter Summary ---
Author Organization [facility] Address [address] [place] [address] Care Team Providers Care Plate Fitter Name Role Phone Stefan Crawfordemy DPM Unavailable [phone] Enrico Felton DO Primary Care Provider [phone] Enrico Felton DO Unavailable Rebecca Palumbo MD Unavailable [phone] Anders Ramachandran Unavailable Unavailable Magdalena Brice Unavailable Unavailable Maddie Mae Unavailable Unavailable No Ref-Primary, Physician Primary Care Provider Enrico Felton DO Primary Care Provider [phone] Aydee Mcgill RN Unavailable [phone] Wendy Agustin APRN MICROSOFT DYNAMICS CONSULTANT Unavailable [phone] Encounter Details Date Type Department Care [...] Info) Description 12/21/2023 2:00 PM CDT Appointment [facility] [place] [address] [facility] [address] [place] [address] Kingsley Westbrook DPM [address] [place], [place] [address] documented as of this encounter Goals Goal Patient Goal Type Associated Problems Recent Progress Patient-Stated? Author Financial Wellbeing General Yes Rosey Alexander, FILM OR TAPE LIBRARIAN documented as of this encounter Visit Diagnoses Not on filedocumented in this encounter Additional Health Concerns Infection Onset Date Last Indicated Resolved Time 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 per 09/01/16 dispatch specialist note; left foot tissue 10/08/16 10/11/2018 02/27/2019 Assessment Noted Time PHQ-9 Depression Total Score: 3 08/24/19 21 12:19 PM CDT documented as of this encounter Care Teams Plate Fitter Relationship Specialty Start [place] [address] [place] [address] PCP - General Family Medicine 08/24/20 01/23/22 No Ref-Primary, Physician PCP - General 02/20/22 06/29/22 [place] [address] [place] [address] PCP - General Family Medicine 06/30/22 [place] [address] [facility] [address] [place] [address] Podiatry 10/18/16 [place] [address] [place] [address] Assigned PCP 08/29/20 10/08/23 Rebecca Palumbo MD [address] [place] [address] [address] [place] [address] Assigned Neuroscience Provider 10/01/20 10/14/21 Anders Ramachandran Personal Advocate & Liaison (PAL) 10/14/20 07/07/21 Magdalena Brice Personal Advocate & Liaison (PAL) 11/14/21 12/27/21 Maddie Mae Personal Advocate & Liaison (PAL) Family Medicine 12/28/21 Aydee Mcgill RN RN Clinical Product Navigator Primary Care - CC 06/30/22 06/30/22 Wendy Agustin APRN MICROSOFT DYNAMICS CONSULTANT [address] [facility] [address] [place] [address] Assigned PCP 10/09/23 documented as of this encounter
--- OUTSIDE RECORDS SUMMARY | 2023-12-15 01:43 | XMS_ITS | Encounter Summary ---
Author Organization [place] Address [address] [place] [address] Care Team Providers Care Cup Machine Operator Name Role Phone YvetteEdu DPM Unavailable [phone] Enrico Felton DO Primary Care Provider [phone] Enrico Felton DO Unavailable [phone] Rebecca Palumbo MD Unavailable [phone] Magdalena Brice Unavailable Unavailable Maddie Mae Unavailable Unavailable No Ref-Primary, Physician Primary Care Provider Enrico Felton DO Primary Care Provider [phone] Aydee Mcgill RN Unavailable [phone] Wendy Agustin APRN SKY DIVER Unavailable [phone] Encounter Details Date Type Department Care Team (Late st Contact Info) Description 09/06/2021 MyC Medical Advice [facility] [address] [place] [address] Lulu Samano MA Social History Tobacco Use [...] Info) Description 12/21/2023 2:00 PM CDT Appointment [facility] [place] [address] [place] [phone] Kingsley Westbrook DPM [address] [address] documented as of this encounter Goals Goal Patient Goal Type Associated Problems Recent Progress Patient-Stated? Author Financial Wellbeing General Yes Rosey Alexander, CHIEF PETROLEUM ENGINEER documented as of this encounter Visit Diagnoses Not on filedocumented in this encounter Additional Health Concerns Infection Onset Date Last Indicated Resolved Time 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 per 09/01/16 r d engineer note; left foot tissue 10/08/16 10/11/2018 02/27/2019 Assessment Noted Time PHQ-9 Depression Total Score: 3 08/24/19 21 12:19 PM CDT documented as of this encounter Care Teams Cup Machine Operator Relationship Specialty [place] [address] [place] [address] PCP - General Family Medicine 08/24/20 01/23/22 No Ref-Primary, Physician PCP - General 02/20/22 06/29/22 [place] [address] [facility] [place] [address] PCP - General Family Medicine 06/30/22 [place] [address] [facility] [address] [place] [address] Podiatry 10/18/16 [place] [address] [facility] [place] [address] Assigned PCP 08/29/20 10/08/23 Rebecca Palumbo MD [address] [place] [address] 297 [place], [place] 3[address] Assigned Neuroscience Provider 10/01/20 10/14/21 Magdalena Brice Personal Advocate & Liaison (PAL) 11/14/21 12/27/21 Maddie Mae Personal Advocate & Liaison (PAL) Family Medicine 12/28/21 Aydee Mcgill RN RN Clinical Product Navigator Primary Care - CC 06/30/22 06/30/22 Wendy Agustin APRN SKY DIVER [address] [facility] [address] [place] [address] Assigned PCP 10/09/23 documented as of this encounter
--- OUTSIDE RECORDS SUMMARY | 2023-12-15 01:44 | XMS_ITS | Encounter Summary ---
Author Organization [place] Address [address] [place] [address] Care Team Providers Care Black Powder Glazing Operator Name Role Phone Madhuri Whitman POLICY LOAN CALCULATOR ACCOUNTANT BOOKKEEPER Primary Care Prov ider Edu Crawford DPM Unavailable [phone] Madhuri Whitman APRN ACCOUNTANT BOOKKEEPER Unavailable + Madhuri Whitman APRN ACCOUNTANT BOOKKEEPER Unavailable + Rosey Alexander SLACKMAN Unavailable [phone] Rosey Alexander SLACKMAN Unavailable [phone] Craig Montenegro PA-C Unavailable [phone] Altagracia Alexander DPM, Podiatry /Foot and Ankle Surgery Unavailable Enrico Felton DO Unavailable [phone] Enrico Felton DO Primary Care Provider [phone] Cy Leonardo Unavailable Unavailable Enrico Felton DO Unavailable [phone] Rebecca Palumbo MD Unavailable [phone] Anders Ramachandran Unavailable Unavailable Magdalena Brice Unavailable Unavailable Maddie Mae Unavailable Unavailable No Ref-Primary, Physician Primary Care Provider Enrico Felton DO Primary Care Provider [phone] Aydee Mcgill RN Unavailable [phone] Wendy Agustin APRN ACCOUNTANT BOOKKEEPER Unavailable [phone] Encounter Details Date Type Department Care Team (Late st Contact Info) Description 01/07/2018 MyC Medical Advice [address] [phone] Carina Antoine, RN Social History Tobacco Use [...] Info) Description 12/21/2023 2:00 PM CDT Appointment [facility] Wound [address] [place] [phone] Kingsley Westbrook DPM 420 [place] [address] documented as of this encounter Visit Diagnoses Not on filedocumented in this encounter Additional Health Concerns Infection Onset Date Last Indicated Resolved Time 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 per 09/01/16 recyclable materials sorter note; left foot tissue 10/08/16 09/01/2016 09/01/2016 10/11/2018 7:49 AM C DT MRSA Comment:MRSA at outside facility per 09/01/16 recyclable materials sorter note; left foot tissue 10/08/16 10/11/2018 02/27/2019 Assessment Noted Time PHQ-9 Depression Total Score: 0 07/29/19 18 2:19 PM CDT documented as of this encounter Care Teams Black Powder Glazing Operator Relationship Specialty Start Date End Date Madhuri Whitman APRN ACCOUNTANT BOOKKEEPER PCP - General Nurse Practitioner - Family 09/04/16 08/23/20 Madhuri Whitman APRN ACCOUNTANT BOOKKEEPER [address] [address] PCP - Assigned PCP 09/03/16 05/21/18 [place] [address] [place] [address] PCP - General Family Medicine 08/24/20 01/23/22 No Ref-Primary, Physician PCP - General 02/20/22 06/29/22 [place] [address] [place] [address] PCP - General Family Medicine 06/30/22 [place] [address] [facility] [address] [place] [address] Podiatry 10/18/16 Madhuri Whitman APRN ACCOUNTANT BOOKKEEPER [address] [place] [address] Assigned PCP 09/03/16 09/27/19 Rosey Alexander, SLACKMAN Clinic Apprentice Carpenter Primary Care - CC 09/27/18 9 Rosey Alexander, SLACKMAN Lead Apprentice Carpenter Primary Care - CC 11/08/18 05/07/19 Craig Montenegro PA-C [address] [address] [place] [address] Assigned PCP 09/28/19 01/31/20 Altagracia Alexander DPM, Podiatry/Foot and Ankle Surgery [address] [place] [address] Assigned Musculoskeletal Provider 01/09/20 10/30/20 [place] [address] [place] [address] Assigned PCP 02/01/20 08/28/20 Cy Leonardo Personal Advocate & Liaison (PAL) 08/26/20 10/13/20 [place] [address] [place] [address] Assigned PCP 08/29/20 10/08/23 Rebecca Palumbo MD [address] [place] [address] 297 [place], [place] 271375 Assigned Neuroscience Provider 10/01/20 10/14/21 Anders Ramachandran Personal Advocate & Liaison (PAL) 10/14/20 07/07/21 Magdalena Brice Personal Advocate & Liaison (PAL) 11/14/21 12/27/21 Maddie Mae Personal Advocate & Liaison (PAL) Family Medicine 12/28/21 Aydee Mcgill RN ROQUE Clinical Product Navigator Primary Care - CC 06/30/22 06/30/22 Wendy Agustin APRN ACCOUNTANT BOOKKEEPER [address] [place], [place] [address] Assigned PCP 10/09/23 documented as of this encounter
--- OUTSIDE RECORDS SUMMARY | 2023-12-15 01:44 | XMS_ITS | Encounter Summary ---
Author Organization [place] Address [address] [place] [address] Care Team Providers Care Soybean Grower Name Role Phone Madhuri Whitman PAI GOW DEALER SENIOR SQL SERVER DATABASE DEVELOPER Primary Care Prov ider Kaylen Aiken RN Unavailable [phone] Edu CrawfordM Unavailable [phone] Madhuri Whitman APRN SENIOR SQL SERVER DATABASE DEVELOPER Unavailable + Madhuri Whitman APRN SENIOR SQL SERVER DATABASE DEVELOPER Unavailable + Rosey Alexander GENERATING STATION MECHANIC Unavailable Rosey Alexander GENERATING STATION MECHANIC Unavailable [phone] Craig Montenegro PA-C Unavailable [phone] Altagracia Alexander DPM, Podiatry /Foot and Ankle Surgery Unavailable Enrico Felton DO Unavailable [phone] Enrico Felton DO Primary Care Provider [phone] Cy Leonardo Unavailable Unavailable Enrico Felton DO Unavailable [phone] Rebecca Palumbo MD Unavailable [phone] Anders Ramachandran Unavailable Unavailable Magdalena Brice Unavailable Unavailable Maddie Mae Unavailable Unavailable No Ref-Primary, Physician Primary Care Provider Enrico Felton DO Primary Care Provider Aydee Mcgill RN Unavailable [phone] Wendy Agustin PAI GOW DEALER SENIOR SQL SERVER DATABASE DEVELOPER Unavailable [phone] Encounter Details Date Type Department Care Team (Late st Contact Info) Description 06/22/2017 MyC Medical Advice [address], [address] [place] [address] Malou Vallejo Social History Tobacco [...] Appointment [facility] [address] [place] [address] Kingsley Westbrook DPM 420 [place] [address] documented as of this encounter Visit Diagnoses Not on filedocumented in this encounter Additional Health Concerns Infection Onset Date Last Indicated Resolved Time 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 per 09/01/16 hearing healthcare practitioner note; left foot tissue 10/08/16 09/01/2016 09/01/2016 10/11/2018 7:49 AM C DT MRSA Comment:MRSA at outside facility per 09/01/16 hearing healthcare practitioner note; left foot tissue 10/08/16 10/11/2018 02/27/2019 Assessment Noted Time PHQ-9 Depression Total Score: 4 02/22/20 17 1:32 PM POT TENDER documented as of this encounter Care Teams Soybean Grower Relationship Specialty Start Date End Date Madhuri Whitman APRN SENIOR SQL SERVER DATABASE DEVELOPER PCP - General Nurse Practitioner - Family 09/04/16 08/23/20 Madhuri Whitman APRN SENIOR SQL SERVER DATABASE DEVELOPER [address] [place] [address] PCP - Assigned PCP 09/03/16 05/21/18 [place] [address] [place] [address] PCP - General Family Medicine 08/24/20 01/23/22 No Ref-Primary, Physician PCP - General 02/20/22 06/29/22 [place] [address] [place] [address] PCP - General Family Medicine 06/30/22 Kaylen Aiken, ROQUE Clinic Electric Motor Fitter 10/18/16 [place] [address] [facility] [address] [place] [address] Podiatry 10/18/16 Madhuri Whitman APRN SENIOR SQL SERVER DATABASE DEVELOPER [address] [place] [address] Assigned PCP 09/03/16 09/27/19 Rosey Alexander LSW Clinic Electric Motor Fitter Primary Care - CC 09/27/18 9 Rosey Alexander LSW Lead Electric Motor Fitter Primary Care - CC 11/08/18 05/07/19 Craig Montenegro PA-C [address] [place] [address] Assigned PCP 09/28/19 01/31/20 Altagracia Alexander, DPM, Podiatry/Foot and Ankle Surgery [address] [place] [place] [address] Assigned Musculoskeletal Provider 01/09/20 10/30/20 [place] [address] [place] [address] Assigned PCP 02/01/20 08/28/20 Cy Leonardo Personal Advocate & Liaison (PAL) 08/26/20 10/13/20 [place] [address] [place] [address] Assigned PCP 08/29/20 10/08/23 Rebecca Palumbo MD [address] [place] [address] 297 [place] [address] Assigned Neuroscience Provider 10/01/20 10/14/21 Anders Ramachandran Personal Advocate & Liaison (PAL) 10/14/20 07/07/21 Magdalena Brice Personal Advocate & Liaison (PAL) 11/14/21 12/27/21 Maddie Mae Personal Advocate & Liaison (PAL) Family Medicine 12/28/21 Aydee Mcgill RN ROQUE Clinical Product Navigator Primary Care - CC 06/30/22 06/30/22 Wendy Agustin APRN SENIOR SQL SERVER DATABASE DEVELOPER [address] [facility] [address] [place], [place] [address] Assigned PCP 10/09/23 [facility] 10/18/16 06/24/17 [facility] 07/27/17 08/14/17 documented as of this encounter
--- OUTSIDE RECORDS SUMMARY | 2023-12-15 01:44 | XMS_ITS | Encounter Summary ---
Author Organization [place] Address [address] [place] [address] Care Team Providers Care Welfare Visitor Name Role Phone Madhuri Whitman APRN RECORD CUTTER Primary Care Prov ider Edu Crawford DPM Unavailable [phone] Madhuri Whitman APRN RECORD CUTTER Unavailable + Rosey Alexander PLASTIC EXTRUDING MACHINE OPERATOR Unavailable [phone] Craig Montenegro PA-C Unavailable [phone] Altagracia Alexander DPM, Podiatry /Foot and Ankle Surgery Unavailable Enrico Felton DO Unavailable [phone] Enrico Felton DO Primary Care Provider [phone] Cy Leonardo Unavailable Unavailable Enrico Felton DO Unavailable [phone] Rebecca Palumbo MD Unavailable [phone] Anders Ramachandran Unavailable Unavailable Magdalena Brice Unavailable Unavailable Maddie Mae Unavailable Unavailable No Ref-Primary, Physician Primary Care Provider Enrico Felton DO Primary Care Provider [phone] Aydee Mcgill RN Unavailable [phone] Wendy Agustin APRN RECORD CUTTER Unavailable [phone] Encounter Details Date Type Department Care Team (Late st Contact Info) Description 04/30/2019 MyC Medical Advice [facility] [address] [facility] [place] [address] Melissa Flores, HIDE SHAKER Social History Tobacco Use Types Packs/Day Years [...] Info) Description 12/21/2023 2:00 PM CDT Appointment [facility] [address] [place] [address] Kingsley Westbrook DPM 420 [place] [address] documented as of this encounter Goals Goal Patient Goal Type Associated Problems Recent Progress Patient-Stated? Author Financial Wellbeing General Yes Rosey Alexander, PLASTIC EXTRUDING MACHINE OPERATOR documented as of this encounter Visit Diagnoses Not on filedocumented in this encounter Additional Health Concerns Infection Onset Date Last Indicated Resolved Time MRSA Comment:MRSA at outside facility per 09/01/16 bag inspector note; left foot tissue 10/08/16 10/11/2018 02/27/2019 Assessment Noted Time PHQ-9 Depression Total Score: 1 02/18/20 19 2:22 PM DATABASE ENGINEER documented as of this encounter Care Teams Welfare Visitor Relationship Specialty Start Date End Date Madhuri Whitman APRN CNP PCP - General Nurse Practitioner - Family 09/04/16 08/23/20 [place] [address] [place] [address] PCP - General Family Medicine 08/24/20 01/23/22 No Ref-Primary, Physician PCP - General 02/20/22 06/29/22 [place] [address] [place] [address] PCP - General Family Medicine 06/30/22 [place] [address] [facility] [address] [place] [address] Podiatry 10/18/16 Madhuri Whitman APRN RECORD CUTTER [address] [facility] [place] [address] Assigned PCP 09/03/16 09/27/19 Rosey Alexander, PLASTIC EXTRUDING MACHINE OPERATOR Lead Wraparound Facilitator Primary Care - CC 11/08/18 05/07/19 Craig Montenegro PA-C [address] [place] [address] Assigned PCP 09/28/19 01/31/20 Altagracia Alexander DPM, Podiatry/Foot and Ankle Surgery [id number] [place] [address] 300 [place] [address] Assigned Musculoskeletal Provider 01/09/20 10/30/20 [place] [address] [place] [address] Assigned PCP 02/01/20 08/28/20 Cy Leonardo Personal Advocate & Liaison (PAL) 08/26/20 10/13/20 [place] [address] [place] [address] Assigned PCP 08/29/20 10/08/23 Rebecca Palumbo MD [address] [place] [address] 297 [place], [place] [address] Assigned Neuroscience Provider 10/01/20 10/14/21 Anders Ramachandran Personal Advocate & Liaison (PAL) 10/14/20 07/07/21 Magdalena Brice Personal Advocate & Liaison (PAL) 11/14/21 12/27/21 Maddie Mae Personal Advocate & Liaison (PAL) Family Medicine 12/28/21 Aydee Mcgill RN ROQUE Clinical Product Navigator Primary Care - CC 06/30/22 06/30/22 Wendy Agustin APRN RECORD CUTTER [address] [place] [address] Assigned PCP 10/09/23 documented as of this encounter
--- OUTSIDE RECORDS SUMMARY | 2023-12-15 01:44 | XMS_ITS | Encounter Summary ---
Author Organization [place] Address [address] [place] [address] Care Team Providers Care Bin Packer Name Role Phone Madhuri Whitman APRN THEATER SET PRODUCTION DESIGNER Primary Care Prov ider Edu Crawford DPM Unavailable [phone] Altagracia Alexander DPM, Podiatry /Foot and Ankle Surgery Unavailable Enrico Felton DO Unavailable [phone] Enrico Felton DO Primary Care Provider [phone] Cy Leonardo Unavailable Unavailable Enrico Felton DO Unavailable [phone] Rebecca Palumbo MD Unavailable [phone] Anders Ramachandran Unavailable Unavailable Magdalena Brice Unavailable Unavailable Maddie Mae Unavailable Unavailable No Ref-Primary, Physician Primary Care Provider Enrico Felton DO Primary Care Provider [phone] Aydee Mcgill RN Unavailable [phone] Wendy Agustin APRN THEATER SET PRODUCTION DESIGNER Unavailable [phone] Encounter Details Date Type Department Care Team (Late st Contact Info) Description 06/08/2020 [facility] [address] [place] [phone] [place] [address] [place] [address] Social History Tobacco Use Types Packs/Day Years [...] PM CDT Appointment [facility] [address] [place] [address] Kingsley Westbrook DPM [address] [place], [place] [address] documented as of this encounter Goals Goal Patient Goal Type Associated Problems Recent Progress Patient-Stated? Author Financial Wellbeing General Yes Rosey Alexander, MOTION PICTURE CAMERA OPERATOR documented as of this encounter Visit Diagnoses Not on filedocumented in this encounter Additional Health Concerns Infection Onset Date Last Indicated Resolved Time MRSA Comment:MRSA at outside facility per 09/01/16 pipe caulker note; left foot tissue 10/08/16 10/11/2018 02/27/2019 Assessment Noted Time PHQ-9 Depression Total Score: 10 020 4:12 PM CHEF KITCHEN MANAGER documented as of this encounter Care Teams Bin Packer Relationship Specialty Start Date End Date Madhuri Whitman APRN THEATER SET PRODUCTION DESIGNER PCP - General Nurse Practitioner - Family 09/04/16 08/23/20 [place] [address] [place] [address] PCP - General Family Medicine 08/24/20 01/23/22 No Ref-Primary, Physician PCP - General 02/20/22 06/29/22 [place] [address] [place] [address] PCP - General Family Medicine 06/30/22 [place] [address] [facility] [address] [place], [place] [address] Podiatry 10/18/16 Altagracia Alexander DPM, Podiatry/Foot and Ankle Surgery [address] [place], [place] [address] Assigned Musculoskeletal Provider 01/09/20 10/30/20 [place] [address] [place] [address] Assigned PCP 02/01/20 08/28/20 Cy Leonardo Personal Advocate & Liaison (PAL) 08/26/20 10/13/20 [place] [address] [place] [address] Assigned PCP 08/29/20 10/08/23 Rebecca Palumbo MD [address] [place] [address] 014525 Assigned Neuroscience Provider 10/01/20 10/14/21 Anders Ramachandran Personal Advocate & Liaison (PAL) 10/14/20 07/07/21 Magdalena Brice Personal Advocate & Liaison (PAL) 11/14/21 12/27/21 Maddie Mae Personal Advocate & Liaison (PAL) Family Medicine 12/28/21 Aydee Mcgill RN RN Clinical Product Navigator Primary Care - CC 06/30/22 06/30/22 Wendy Agustin APRN THEATER SET PRODUCTION DESIGNER [address] [facility] [address] [place] [address] Assigned PCP 10/09/23 documented as of this encounter
--- OUTSIDE RECORDS SUMMARY | 2023-12-15 01:44 | XMS_ITS | Encounter Summary ---
Author Organization [place] Address [address] [place] [address] Care Team Providers Care Church Communications Administrator Name Role Phone Madhuri Whitman APRN NEURODIAGNOSTIC TECHNOLOGIST Primary Care Prov ider Edu Crawford DPM Unavailable Altagracia Alexander DPM, Podiatry /Foot and Ankle Surgery Unavailable Enrico Felton DO Unavailable [phone] Enrico Felton DO Primary Care Provider [phone] Cy Leonardo Unavailable Unavailable Enrico Felton DO Unavailable [phone] Rebecca Palumbo MD Unavailable [phone] Anders Ramachandran Unavailable Unavailable Magdalena Brice Unavailable Unavailable Maddie Mae Unavailable Unavailable No Ref-Primary, Physician Primary Care Provider Enrico Felton DO Primary Care Provider [phone] Aydee Mcgill RN Unavailable [phone] Wendy Agustin APRN NEURODIAGNOSTIC TECHNOLOGIST Unavailable [phone] Encounter Details Date Type Department Care Team (Late st Contact Info) Description 08/18/2020 MyC Medical Advice [facility] [address] [place] [phone] Denia Mccrary, PLASTICS REPAIRER Social History Tobacco Use Types Packs/Day Years [...] Appointment [facility] [address] [place] [phone] Kingsley Westbrook DPM 420 [place], [place] [address] documented as of this encounter Goals Goal Patient Goal Type Associated Problems Recent Progress Patient-Stated? Author Financial Wellbeing General Yes Rosey Alexander, SECURITY PROFESSIONALS documented as of this encounter Visit Diagnoses Not on filedocumented in this encounter Additional Health Concerns Infection Onset Date Last Indicated Resolved Time MRSA Comment:MRSA at outside facility per 09/01/16 manager site note; left foot tissue 10/08/16 10/11/2018 02/27/2019 Assessment Noted Time PHQ-9 Depression Total Score: 10 020 4:12 PM CRIMINAL ATTORNEY documented as of this encounter Care Teams Church Communications Administrator Relationship Specialty Start Date End Date Madhuri Whitman APRN NEURODIAGNOSTIC TECHNOLOGIST PCP - General Nurse Practitioner - Family 09/04/16 08/23/20 [place] [address] [place] [address] PCP - General Family Medicine 08/24/20 01/23/22 No Ref-Primary, Physician PCP - General 02/20/22 06/29/22 [place] [address] [place] [address] PCP - General Family Medicine 06/30/22 [place] [address] [facility] [address] [place], [place] [address] Podiatry 10/18/16 Altagracia Alexander DPM, Podiatry/Foot and Ankle Surgery [address] [place], [place] [address] Assigned Musculoskeletal Provider 01/09/20 10/30/20 [place] [address] [place] [address] Assigned PCP 02/01/20 08/28/20 Cy Leonardo Personal Advocate & Liaison (PAL) 08/26/20 10/13/20 [place] [address] [place] [address] Assigned PCP 08/29/20 10/08/23 Rebecca Palumbo MD [address] [place] [address] [address] [place], [place] [address] Assigned Neuroscience Provider 10/01/20 10/14/21 Anders Ramachandran Personal Advocate & Liaison (PAL) 10/14/20 07/07/21 Magdalena Brice Personal Advocate & Liaison (PAL) 11/14/21 12/27/21 Maddie Mae Personal Advocate & Liaison (PAL) Family Medicine 12/28/21 Aydee Mcgill RN RN Clinical Product Navigator Primary Care - CC 06/30/22 06/30/22 Wendy Agustin APRN [facility] [address] [facility] [address] [place] [address] Assigned PCP 10/09/23 documented as of this encounter
--- OUTSIDE RECORDS SUMMARY | 2023-12-15 01:44 | XMS_ITS | Encounter Summary ---
Author Organization [facility] Address [address] [place] [address] Care Team Providers Care Financial Director Name Role Phone Madhuri Whitman APRN ASSOCIATE PROFESSOR OF THEOLOGY Primary Care Prov ider Edu Crawford DPM Unavailable [phone] Madhuri Whitman APRN ASSOCIATE PROFESSOR OF THEOLOGY Unavailable + Rosey Alexander SERVICE ATTENDANT CAFETERIA Unavailable [phone] Craig Montenegro PA-C Unavailable [phone] Altagracia Alexander DPM, Podiatry /Foot and Ankle Surgery Unavailable Enrico Felton DO Unavailable [phone] Enrico Felton DO Primary Care Provider [phone] Cy Leonardo Unavailable Unavailable Enrico Felton DO Unavailable [phone] Rebecca Palumbo MD Unavailable [phone] Anders Ramachandran Unavailable Unavailable Magdalena Brice Unavailable Unavailable Maddie Mae Unavailable Unavailable No Ref-Primary, Physician Primary Care Provider Enrico Felton DO Primary Care Provider [phone] Aydee Mcgill RN Unavailable [phone] Wendy Agustin APRN ASSOCIATE PROFESSOR OF THEOLOGY Unavailable [phone] Reason for Visit * Reason Onset Date Comments Medication Refill 12/09/2018 PARoxetine (PA XIL) 20 MG tablet Encounter Details Date Type Department Care Team (Late st Contact Info) Description 12/09/[address], [address] [place] [address] J Carlos Madhuri Cindy, GLASS FINISHER ASSOCIATE PROFESSOR OF THEOLOGY [address] [place] [address] Medication Refill (PARoxetine (PAXIL) 20 [...] up on 12/04/2018. Patient now lives in [place] with transportation issues. States active on [employer] but has never signed in. ENDER Weir [...] Appointment [facility] [address] [place] [address] Kingsley Westbrook DPM [address] [place] [id number] documented as of this encounter Goals Goal Patient Goal Type Associated Problems Recent Progress Patient-Stated? Author Financial Wellbeing General Yes Rosey Alexander, SERVICE ATTENDANT CAFETERIA documented as of this encounter Visit Diagnoses Diagnosis Episode of recurrent major depressive disorder, unspecified depression episode severity (H) documented in this encounter Additional Health Concerns Infection Onset Date Last Indicated Resolved Time MRSA Comment:MRSA at outside facility per 09/01/16 mft note; left foot tissue 10/08/16 10/11/2018 02/27/2019 Assessment Noted Time PHQ-9 Depression Total Score: 3 06/22/19 19 2:29 PM CDT documented as of this encounter Care Teams Financial Director Relationship Specialty Start Date End Date Madhuri Whitman APRN ASSOCIATE PROFESSOR OF THEOLOGY PCP - General Nurse Practitioner - Family 09/04/16 08/23/20 [place] [address] [place] [address] PCP - General Family Medicine 08/24/20 01/23/22 No Ref-Primary, Physician PCP - General 02/20/22 06/29/22 [place] [address] [place] [address] PCP - General Family Medicine 06/30/22 Edu Crawford DPM [address] [facility] [address] [place], [place] [id number] Podiatry 10/18/16 Madhuri Whitman APRN ASSOCIATE PROFESSOR OF THEOLOGY [address] [place] [address] Assigned PCP 09/03/16 09/27/19 Rosey Alexander, SERVICE ATTENDANT CAFETERIA Lead Quality Assurance Tech Primary Care - CC 11/08/18 05/07/19 Craig Montenegro PA-C [address] [place] [address] Assigned PCP 09/28/19 01/31/20 Altagracia Alexander DPM, Podiatry/Foot and Ankle Surgery [address] [facility] [address] [place], [place] [address] Assigned Musculoskeletal Provider 01/09/20 10/30/20 [place] [address] [place] [address] Assigned PCP 02/01/20 08/28/20 Cy Leonardo Personal Advocate & Liaison (PAL) 08/26/20 10/13/20 [place] [address] [place] [address] Assigned PCP 08/29/20 10/08/23 Rebecca Palumbo MD [address] [place] [address] [address] [place] [address] Assigned Neuroscience Provider 10/01/20 10/14/21 Anders Ramachandran Personal Advocate & Liaison (PAL) 10/14/20 07/07/21 Magdalena Brice Personal Advocate & Liaison (PAL) 11/14/21 12/27/21 Maddie Mae Personal Advocate & Liaison (PAL) Family Medicine 12/28/21 Aydee Mcgill RN ROQUE Clinical Product Navigator Primary Care - CC 06/30/22 06/30/22 Wendy Agustin APRN ASSOCIATE PROFESSOR OF THEOLOGY [address] [facility] [address] [place] [address] Assigned PCP 10/09/23 documented as of this encounter
--- OUTSIDE RECORDS SUMMARY | 2023-12-15 01:44 | XMS_ITS | Encounter Summary ---
Author Organization [facility] Address [address] [place] [address] Care Team Providers Care Test Tube Maker Name Role Phone Madhuri Whitman APRN WARRANT CLERK Primary Care Prov ider Edu Crawford DPM Unavailable Altagracia Alexander DPM, Podiatry /Foot and Ankle Surgery Unavailable Enrico Felton DO Unavailable [phone] Enrico Felton DO Primary Care Provider [phone] Cy Leonardo Unavailable Unavailable Enrico Felton DO Unavailable [phone] Rebecca Palumbo MD Unavailable [phone] Anders Ramachandran Unavailable Unavailable Magdalena Brice Unavailable Unavailable Maddie Mae Unavailable Unavailable No Ref-Primary, Physician Primary Care Provider Enrico Felton DO Primary Care Provider [phone] Aydee Mcgill RN Unavailable [phone] Wendy Agustin APRN WARRANT CLERK Unavailable [phone] Reason for Visit * Reason Comments Medication Refill Encounter Details Date Type Department Care Team (Late st Contact Info) Description 05/19/[address], [address] [place] [address] Cragi Montenegro PA-C [address] [place] [address] Medication Refill Social History Tobacco Use Types [...] lvm. Sending second MyChart message. Maeve Smalls- Department Editor ERCIAL CREDIT HEAD * Telephone Encounter - Camila Mejia - 05/20/2020 2:41 PM CST 1st attempt, sent [employer] message to schedule px & fasting labs ERCIAL CREDIT HEAD * Telephone Encounter - Earline Powell, RN - 05/20/2020 2:03 PM CST Please help patient schedule fasting px. Last labs 06/2018. Visit Type Follow Up 01/21/2020 Enrico Felton DO Virtual Visit Return in about 3 months (around 04/22/2020) for Routine preventive. Route to refill if med coverage needed. Earline Powell RN ERCIAL CREDIT HEAD documented in this encounter Plan of Treatment Upcoming Encounters Date Type Department Care Team (Late st Contact Info) Description 12/21/2023 2:00 PM CDT Appointment [facility] [address] [place] [address] Kingsley Westbrook, DPBharath [address] [place], [place] [address] documented as of this encounter Goals Goal Patient Goal Type Associated Problems Recent Progress Patient-Stated? Author Financial Wellbeing General Yes Rosey Alexander, SALES EXPERT documented as of this encounter Visit Diagnoses Diagnosis Hyperlipidemia with target LDL less than 100 Other and unspecified hyperlipidemia documented in this encounter Additional Health Concerns Infection Onset Date Last Indicated Resolved Time MRSA Comment:MRSA at outside facility per 09/01/16 christmas tree grower note; left foot tissue 10/08/16 10/11/2018 02/27/2019 Assessment Noted Time PHQ-9 Depression Total Score: 10 020 4:12 PM COMMERCIAL CREDIT HEAD documented as of this encounter Care Teams Test Tube Maker Relationship Specialty Start Date End Date Madhuri Whitman APRN WARRANT CLERK PCP - General Nurse Practitioner - Family 09/04/16 08/23/20 [place] [address] [place] [address] PCP - General Family Medicine 08/24/20 01/23/22 No Ref-Primary, Physician PCP - General 02/20/22 06/29/22 [place] [address] [place] [address] PCP - General Family Medicine 06/30/22 [place] [address] [facility] [address] [place], [place] [address] Podiatry 10/18/16 Altagracia Alexander DPM, Podiatry/Foot and Ankle Surgery [address] [facility] [address] [place], [place] [address] Assigned Musculoskeletal Provider 01/09/20 10/30/20 [place] [address] [place] [address] Assigned PCP 02/01/20 08/28/20 Cy Leonardo Personal Advocate & Liaison (PAL) 08/26/20 10/13/20 [place] [address] [place] [address] Assigned PCP 08/29/20 10/08/23 Rebecca Palumbo MD [address] [place] [address] 297 [place], [place] [address] Assigned Neuroscience Provider 10/01/20 10/14/21 nAders Ramachandran Personal Advocate & Liaison (PAL) 10/14/20 07/07/21 Magdalena Brice Personal Advocate & Liaison (PAL) 11/14/21 12/27/21 Maddie Mae Personal Advocate & Liaison (PAL) Family Medicine 12/28/21 Aydee Mcgill RN RN Clinical Product Navigator Primary Care - CC 06/30/22 06/30/22 Wendy Agustin APRN WARRANT CLERK [address] [facility] [address] [place], [place] [address] Assigned PCP 10/09/23 documented as of this encounter
--- OUTSIDE RECORDS SUMMARY | 2023-12-15 01:44 | XMS_ITS | Encounter Summary ---
Author Organization [facility] Address [address] [place] [address] Care Team Providers Care Leasing Machine Tender Name Role Phone J Carlos Madhuri White APRN CLINICAL ACCOUNT MANAGER Primary Care Prov ider Edu Crawford DPM Unavailable [phone] Craig Montenegro PA-C Unavailable Altagracia Alexander DPM, Podiatry /Foot and Ankle Surgery Unavailable Enrico Felton DO Unavailable [phone] Enrico Felton DO Primary Care Provider [phone] Cy Leonardo Unavailable Unavailable Enrico Felton DO Unavailable [phone] Rebecca Palumbo MD Unavailable [phone] Anders Ramachandran Unavailable Unavailable Magdalena Brice Unavailable Unavailable Maddie Mae Unavailable Unavailable No Ref-Primary, Physician Primary Care Provider Enrico Felton DO Primary Care Provider [phone] Aydee Mcgill RN Unavailable [phone] Wendy Agustin APRN CLINICAL ACCOUNT MANAGER Unavailable [phone] Encounter Details Date Type Department Care [...] COVID-19? No / Unsure 01/21/2020 3:59 PM STEAM HOIST OPERATOR documented as of this encounter Plan of Treatment Upcoming Encounters Date Type Department Care Team (Late st Contact Info) Description 12/21/2023 2:00 PM CDT Appointment [facility] [place] [address] [place] [address] 586 [place] [address] Kingsley Westbrook DPM [address] [place], [place] [address] documented as of this encounter Goals Goal Patient Goal Type Associated Problems Recent Progress Patient-Stated? Author Financial Wellbeing General Yes Rosey Alexander, ACCOUNT INSTALLER documented as of this encounter Visit Diagnoses Not on filedocumented in this encounter Additional Health Concerns Infection Onset Date Last Indicated Resolved Time MRSA Comment:MRSA at outside facility per 09/01/16 legal support assistant note; left foot tissue 10/08/16 10/11/2018 02/27/2019 Assessment Noted Time PHQ-9 Depression Total Score: 10 020 4:12 PM STEAM HOIST OPERATOR documented as of this encounter Care Teams Leasing Machine Tender Relationship Specialty Start Date End Date Madhuri Whitman APRN CNP PCP - General Nurse Practitioner - Family 09/04/16 08/23/20 [place] [address] [place] [address] PCP - General Family Medicine 08/24/20 01/23/22 No Ref-Primary, Physician PCP - General 02/20/22 06/29/22 [place] [address] [place] [address] PCP - General Family Medicine 06/30/22 [place] [address] [facility] [address] [place] [address] Podiatry 10/18/16 Craig Montenegro PA-C [address] [place] [address] Assigned PCP 09/28/19 01/31/20 Altagracia Alexander DPM, Podiatry/Foot and Ankle Surgery [address] [place] [address] Assigned Musculoskeletal Provider 01/09/20 10/30/20 [place] [address] [place] [address] Assigned PCP 02/01/20 08/28/20 Cy Leonardo Personal Advocate & Liaison (PAL) 08/26/20 10/13/20 [place] [address] [place] [address] Assigned PCP 08/29/20 10/08/23 Rebecca Palumbo MD [address] [place] [address] 297 [place], [place] [address] Assigned Neuroscience Provider 10/01/20 10/14/21 Anders Ramachandran Personal Advocate & Liaison (PAL) 10/14/20 07/07/21 Magdalena Brice Personal Advocate & Liaison (PAL) 11/14/21 12/27/21 Maddie Mae Personal Advocate & Liaison (PAL) Family Medicine 12/28/21 Aydee Mcgill RN RN Clinical Product Navigator Primary Care - CC 06/30/22 06/30/22 Wendy Agustin APRN CLINICAL ACCOUNT MANAGER [address] [facility] [address] [place] [address] Assigned PCP 10/09/23 documented as of this encounter
--- OUTSIDE RECORDS SUMMARY | 2023-12-15 01:44 | XMS_ITS | Encounter Summary ---
Author Organization [facility] Address [address] [place] [address] Care Team Providers Care Occupational Therapist Name Role Phone Madhuri Whitman APRN MANNEQUIN MOLD MAKER Primary Care Prov ider Edu Crawford DPM Unavailable [phone] Altagracia Alexander DPM, Podiatry /Foot and Ankle Surgery Unavailable Enrico Felton DO Unavailable [phone] Enrico Felton DO Primary Care Provider [phone] Cy Leonardo Unavailable Unavailable Enrico Felton DO Unavailable [phone] Rebecca Palumbo MD Unavailable [phone] Anders Ramachandran Unavailable Unavailable Magdalena Brice Unavailable Unavailable Maddie Mae Unavailable Unavailable No Ref-Primary, Physician Primary Care Provider Enrico Felton DO Primary Care Provider [phone] Aydee Mcgill RN Unavailable [phone] Wendy Agustin APRN MANNEQUIN MOLD MAKER Unavailable [phone] Encounter Details Date Type Department Care Team (Late st Contact Info) Description 05/25/2020 [facility] [place] [address] [address] Dianelys Smalls Social History Tobacco [...] Appointment [facility] [place] [address] [place] [address] Kingsley Westbrook DPM [address] [place] [address] documented as of this encounter Goals Goal Patient Goal Type Associated Problems Recent Progress Patient-Stated? Author Financial Wellbeing General Yes Rosey Alexander, PLUG SORTER documented as of this encounter Visit Diagnoses Not on filedocumented in this encounter Additional Health Concerns Infection Onset Date Last Indicated Resolved Time MRSA Comment:MRSA at outside facility per 09/01/16 carton gluing machine operator note; left foot tissue 10/08/16 10/11/2018 02/27/2019 Assessment Noted Time PHQ-9 Depression Total Score: 10 020 4:12 PM ASSOCIATE SOFTWARE ENGINEER documented as of this encounter Care Teams Occupational Therapist Relationship Specialty Start Date End Date Madhuri Whitman APRN MANNEQUIN MOLD MAKER PCP - General Nurse Practitioner - Family 09/04/16 08/23/20 [place] [address] [place] [address] PCP - General Family Medicine 08/24/20 01/23/22 No Ref-Primary, Physician PCP - General 02/20/22 06/29/22 [place] [address] [place] [address] PCP - General Family Medicine 06/30/22 [place] [address] [place] [address] Podiatry 10/18/16 Altagracia Alexander DPM, Podiatry/Foot and Ankle Surgery [address] [place], [place] [address] Assigned Musculoskeletal Provider 01/09/20 10/30/20 [place] [address] [place] [address] Assigned PCP 02/01/20 08/28/20 Cy Leonardo Personal Advocate & Liaison (PAL) 08/26/20 10/13/20 [place] [address] [place] [address] Assigned PCP 08/29/20 10/08/23 Rebecca Palumbo MD [address] [place] [address] 013905 Assigned Neuroscience Provider 10/01/20 10/14/21 Anders Ramachandran Personal Advocate & Liaison (PAL) 10/14/20 07/07/21 Magdalena Brice Personal Advocate & Liaison (PAL) 11/14/21 12/27/21 Maddie Mae Personal Advocate & Liaison (PAL) Family Medicine 12/28/21 Aydee Mcgill RN RN Clinical Product Navigator Primary Care - CC 06/30/22 06/30/22 Wendy Agustin APRN MANNEQUIN MOLD MAKER [address] [facility] [address] [place], [place] [address] Assigned PCP 10/09/23 documented as of this encounter
--- OUTSIDE RECORDS SUMMARY | 2023-12-15 01:44 | XMS_ITS | Encounter Summary ---
Author Organization [facility] Address [address] [place] [address] Care Team Providers Care Certified Master Locksmith Name Role Phone Edu Crawford DPM Unavailable [phone] Altagracia lAexander DPM, Podiatry /Foot and Ankle Surgery Unavailable Enrico Felton DO Primary Care Provider [phone] Cy Leonardo Unavailable Unavailable Enrico Felton DO Unavailable [phone] Rebecca Palumbo MD Unavailable [phone] Anders Ramachandran Unavailable Unavailable Magdalena Brice Unavailable Unavailable Maddie Mae Unavailable Unavailable No Ref-Primary, Physician Primary Care Provider Enrico Felton DO Primary Care Provider [phone] Aydee Mcgill RN Unavailable [phone] Wendy Agustin APRN CLOSET BUILDER Unavailable [phone] Encounter Details Date Type Department Care [...] CDT Appointment [facility] [place] [address] [facility] [address] [place] [address] Kingsley Westbrook DPM [address] [place] [address] documented as of this encounter Goals Goal Patient Goal Type Associated Problems Recent Progress Patient-Stated? Author Financial Wellbeing General Yes Rosey Alexander, WAREHOUSE ASSISTANT documented as of this encounter Visit Diagnoses Not on filedocumented in this encounter Additional Health Concerns Infection Onset Date Last Indicated Resolved Time MRSA Comment:MRSA at outside facility per 09/01/16 mexican food maker note; left foot tissue 10/08/16 10/11/2018 02/27/2019 Assessment Noted Time PHQ-9 Depression Total Score: 3 08/24/19 21 12:19 PM CDT documented as of this encounter Care Teams Certified Master Locksmith Relationship Specialty [place] [address] [place] [address] PCP - General Family Medicine 08/24/20 01/23/22 No Ref-Primary, Physician PCP - General 02/20/22 06/29/22 [place] [address] [place] [address] PCP - General Family Medicine 06/30/22 [place] [address] [facility] [address] [place] [address] Podiatry 10/18/16 Altagracia Alexander DPM, Podiatry/Foot and Ankle Surgery [address] [place] [address] Assigned Musculoskeletal Provider 01/09/20 10/30/20 Cy Leonardo Personal Advocate & Liaison (PAL) 08/26/20 10/13/20 [place] [address] [place] [address] Assigned PCP 08/29/20 10/08/23 Rebecca Palumbo MD [address] [place] [address] 297 [place], [place] [address] Assigned Neuroscience Provider 10/01/20 10/14/21 Anders Ramachandran Personal Advocate & Liaison (PAL) 10/14/20 07/07/21 Magdalena Brice Personal Advocate & Liaison (PAL) 11/14/21 12/27/21 Maddie Mae Personal Advocate & Liaison (PAL) Family Medicine 12/28/21 Aydee Mcgill RN ROQUE Clinical Product Navigator Primary Care - CC 06/30/22 06/30/22 Wendy Agustin APRN CLOSET BUILDER [address] [facility] [address] [place], [place] [address] Assigned PCP 10/09/23 documented as of this encounter
--- OUTSIDE RECORDS SUMMARY | 2023-12-15 01:44 | XMS_ITS | Encounter Summary ---
Author Organization [facility] Address [address] [place] [address] Care Team Providers Care Manager Operational Name Role Phone Edu Crawford DPM Unavailable [phone] Altagracia Alexander DPM, Podiatry /Foot and Ankle Surgery Unavailable Enrico Felton DO Primary Care Provider [phone] Cy Leonardo Unavailable Unavailable Enrico Felton DO Unavailable Rebecca Palumbo MD Unavailable [phone] Anders Ramachandran Unavailable Unavailable Magdalena Brice Unavailable Unavailable Maddie Mae Unavailable Unavailable No Ref-Primary, Physician Primary Care Provider Enrico Felton DO Primary Care Provider [phone] Aydee Mcgill RN Unavailable [phone] Wendy Agustin APRN RAILWAY EQUIPMENT OPERATOR Unavailable [phone] Encounter Details Date Type Department Care Team (Late st Contact Info) Description 10/05/2020 [facility] Medical Adv[facility] Scheduling [address] [place] [address] Beverley Woodward Social History Tobacco [...] Info) Description 12/21/2023 2:00 PM CDT Appointment [facility] [address] [place] [address] Kingsley Westbrook DPM [address] [place] [address] documented as of this encounter Goals Goal Patient Goal Type Associated Problems Recent Progress Patient-Stated? 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 per 09/01/16 carpenter foreman note; left foot tissue 10/08/16 10/11/2018 02/27/2019 Assessment Noted Time PHQ-9 Depression Total Score: 3 08/24/19 21 12:19 PM CDT documented as of this encounter Care Teams Manager Operational Relationship Specialty Start [place] [address] [place] [address] PCP - General Family Medicine 08/24/20 01/23/22 No Ref-Primary, Physician PCP - General 02/20/22 06/29/22 [place] [address] [place] [address] PCP - General Family Medicine 06/30/22 [place] [address] [place] [address] Podiatry 10/18/16 Altagracia Alexander DPM, Podiatry/Foot and Ankle Surgery [address] [place], [place] [address] Assigned Musculoskeletal Provider 01/09/20 10/30/20 Cy Leonardo Personal Advocate & Liaison (PAL) 08/26/20 10/13/20 [place] [address] [place] [address] Assigned PCP 08/29/20 10/08/23 Rebecca Palumbo MD [address] [place] [address] 297 [place], [place] [address] Assigned Neuroscience Provider 10/01/20 10/14/21 Anders Ramachandran Personal Advocate & Liaison (PAL) 10/14/20 07/07/21 Magdalena Brice Personal Advocate & Liaison (PAL) 11/14/21 12/27/21 Maddie Mae Personal Advocate & Liaison (PAL) Family Medicine 12/28/21 Aydee Mcgill RN ROQUE Clinical Product Navigator Primary Care - CC 06/30/22 06/30/22 Wendy Agustin APRN RAILWAY EQUIPMENT OPERATOR [address] [facility] [address] [place], [place] [address] Assigned PCP 10/09/23 documented as of this encounter
--- OUTSIDE RECORDS SUMMARY | 2023-12-15 01:44 | XMS_ITS | Encounter Summary ---
Author Organization [place] Address [address] [place] [address] Care Team Providers Care Propeller Layout Worker Name Role Phone Madhuri Whitman MEDICINE TEACHER PARAFFIN MACHINE OPERATOR Primary Care Prov ider Edu Crawford DPM Unavailable [phone] Madhuri Whitman APRN PARAFFIN MACHINE OPERATOR Unavailable + Rosey Alexander CUTTER FINISHER Unavailable Rosey Alexander CUTTER FINISHER Unavailable [phone] Craig Montenegro PA-C Unavailable [phone] Altagracia Alexander DPM, Podiatry /Foot and Ankle Surgery Unavailable Enrico Felton DO Unavailable [phone] Enrico Felton DO Primary Care Provider [phone] Cy Leonardo Unavailable Unavailable Enrico Felton DO Unavailable Rebecca Palumbo MD Unavailable [phone] Anders Ramachandran Unavailable Unavailable Magdalena Brice Unavailable Unavailable Maddie Mae Unavailable Unavailable No Ref-Primary, Physician Primary Care Provider Enrico Felton DO Primary Care Provider [phone] Aydee Mcgill RN Unavailable [phone] Wendy Agustin MEDICINE TEACHER PARAFFIN MACHINE OPERATOR Unavailable Reason for Visit * Reason Onset Date Comments Refill Request 10/30/2018 Wheelchair order Refill Request 11/15/2018 Encounter Details Date Type Department Care Team (Late st Contact Info) Description 10/30/2018 Refill [facility] [address] [facility], [address] [place] [address] Madhuri Whitman APRN PARAFFIN MACHINE OPERATOR [address] [facility] [place] [place] [address] Refill Request (Wheelchair order); Refill Request Social [...] 12/21/2023 2:[address] [facility] Wound [address] [place] [phone] Kingsley Westbrook DPM [address] [place], [place] [address] documented as of this encounter Visit Diagnoses Not on filedocumented in this encounter Additional Health Concerns Infection Onset Date Last Indicated Resolved Time MRSA Comment:MRSA at outside facility per 09/01/16 play leader note; left foot tissue 10/08/16 10/11/2018 02/27/2019 Assessment Noted Time PHQ-9 Depression Total Score: 3 06/22/19 19 2:29 PM CDT documented as of this encounter Care Teams Propeller Layout Worker Relationship Specialty Start Date End Date Madhuri Whitman APRN PARAFFIN MACHINE OPERATOR PCP - General Nurse Practitioner - Family 09/04/16 08/23/20 [place] [address] [place] [address] PCP - General Family Medicine 08/24/20 01/23/22 No Ref-Primary, Physician PCP - General 02/20/22 06/29/22 [place] [address] [place] [address] PCP - General Family Medicine 06/30/22 Edu Crawford DPM [address] [facility] [address] [place], [place] [address] Podiatry 10/18/16 Madhuri Whitman, WANDY PARAFFIN MACHINE OPERATOR [address] [place] [address] Assigned PCP 09/03/16 09/27/19 Rosey Alexander, [facility] Clinic Auto Tech Primary Care - CC 09/27/18 9 Rosey Alexander, [facility] Lead Auto Tech Primary Care - CC 11/08/18 05/07/19 Craig Montenegro PA-C [address] [place] [address] Assigned PCP 09/28/19 01/31/20 Altagracia Alexander DPM, Podiatry/Foot and Ankle Surgery [address] [place], [place] [address] Assigned Musculoskeletal Provider 01/09/20 10/30/20 [place] [address] [place] [address] Assigned PCP 02/01/20 08/28/20 Cy Leonardo Personal Advocate & Liaison (PAL) 08/26/20 10/13/20 [place] [address] [place] [address] Assigned PCP 08/29/20 10/08/23 Rebecca Palubmo MD [address] [place] [address] [address] [place] [address] Assigned Neuroscience Provider 10/01/20 10/14/21 Anders Ramachandran Personal Advocate & Liaison (PAL) 10/14/20 07/07/21 Magdalena Brice Personal Advocate & Liaison (PAL) 11/14/21 12/27/21 Maddie Mae Personal Advocate & Liaison (PAL) Family Medicine 12/28/21 Aydee Mcgill RN ROQUE Clinical Product Navigator Primary Care - CC 06/30/22 06/30/22 Wendy Agustin APRN PARAFFIN MACHINE OPERATOR [address] [facility] [address] [place] [address] Assigned PCP 10/09/23 documented as of this encounter
--- OUTSIDE RECORDS SUMMARY | 2023-12-15 01:44 | XMS_ITS | Encounter Summary ---
Author Organization [place] Address [address] [place] [address] Care Team Providers Care Manager Inventory Control Name Role Phone Madhuri Whitman VETERINARY X RAY OPERATOR HOME INSURANCE AGENT Primary Care Prov ider Edu Crawford DPM Unavailable [phone] Madhuri Whitman APRN HOME INSURANCE AGENT Unavailable + Madhuri Whitman APRN HOME INSURANCE AGENT Unavailable + Rosey Alexander COOK DESSERT Unavailable [phone] Rosey Alexander COOK DESSERT Unavailable [phone] Craig Montenegro PA-C Unavailable [phone] Altagracia Alexander DPM, Podiatry /Foot and Ankle Surgery Unavailable Enrico Felton DO Unavailable [phone] Enrico Felton DO Primary Care Provider [phone] Cy Leonardo Unavailable Unavailable Enrico Felton DO Unavailable [phone] Rebecca Palumbo MD Unavailable [phone] Anders Ramachandran Unavailable Unavailable Magdalena Brice Unavailable Unavailable Maddie Mae Unavailable Unavailable No Ref-Primary, Physician Primary Care Provider Enrico Felton DO Primary Care Provider [phone] Aydee Mcgill RN Unavailable [phone] HedyWendy alamo VETERINARY X RAY OPERATOR HOME INSURANCE AGENT Unavailable [phone] Reason for Visit * Reason Onset Date Comments Medication Refill 03/04/2018 PARoxetine and omeprazole Encounter Details Date Type Department Care Team (Late st Contact Info) Description 03/02/[address], [address] [place] [address] Madhuri Whitman, WANDY HOME INSURANCE AGENT [address] [place], [place] [id number] Medication Refill (PARoxetine and omeprazole ) Social [...] via phone, sent letter. Alexandrea Lacy MA R FISHER * Telephone Encounter - Carol Dickerson RN - 03/05/2018 2:49 PM CST Please call pt to schedule a med check with labs Medication is being filled for 1 time refill only due to: Patient needs to be seen because needs OV. Carol Dickerson RN, BSN R FISHER * Telephone Encounter - Laureen Baumann - [...] No positive test in past 12 months R FISHER documented in this encounter Plan of Treatment Upcoming Encounters Date Type Department Care Team (Late st Contact Info) Description 12/21/2023 2:00 PM CDT Appointment [facility] [place] [address] [place] [address] Kingsley Westbrook DPM [address] [facility] [place], [place] [address] documented as of this encounter Visit Diagnoses Diagnosis Episode of recurrent major depressive disorder, unspecified depression episode severity (H) Gastroesophageal reflux disease, esophagitis presence not specified documented in this encounter Additional Health Concerns Infection Onset Date Last Indicated Resolved Time 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 per 09/01/16 ems director note; left foot tissue 10/08/16 09/01/2016 09/01/2016 10/11/2018 7:49 AM C DT MRSA Comment:MRSA at outside facility per 09/01/16 ems director note; left foot tissue 10/08/16 10/11/2018 02/27/2019 Assessment Noted Time PHQ-9 Depression Total Score: 0 07/29/19 18 2:19 PM CDT documented as of this encounter Care Teams Manager Inventory Control Relationship Specialty Start Date End Date Madhuri Whitman APRN HOME INSURANCE AGENT PCP - General Nurse Practitioner - Family 09/04/16 08/23/20 Madhuri Whitman APRN HOME INSURANCE AGENT [address] [place] [address] PCP - Assigned PCP 09/03/16 05/21/18 [place] [address] [address] [place], [place] [address] PCP - General Family Medicine 08/24/20 01/23/22 No Ref-Primary, Physician PCP - General 02/20/22 06/29/22 [place] [address] [place] [phone] PCP - General Family Medicine 06/30/22 Edu Crawford DPM [address] [facility] [address] [place], [place] [phone] Podiatry 10/18/16 Madhuri Whitman APRN HOME INSURANCE AGENT [address] [place] [id number] Assigned PCP 09/03/16 09/27/19 Rosey Alexander, [facility] Clinic Building Appraiser Primary Care - CC 09/27/18 9 Rosey Alexander, [employer] Lead Building Appraiser Primary Care - CC 11/08/18 05/07/19 Craig Montenegro PA-C [address] [place] [id number] Assigned PCP 09/28/19 01/31/20 Altagracia Alexander DPM, Podiatry/Foot and Ankle Surgery [address] [place], [place] [id number] Assigned Musculoskeletal Provider 01/09/20 10/30/20 [place] [address] [place] [address] Assigned PCP 02/01/20 08/28/20 Cy Leonardo Personal Advocate & Liaison (PAL) 08/26/20 10/13/20 [place] [address] [place] [address] Assigned PCP 08/29/20 10/08/23 Rebecca Palumbo MD [address] [place] [address] [address] [place], [place] [address] Assigned Neuroscience Provider 10/01/20 10/14/21 Anders Ramahcandran Personal Advocate & Liaison (PAL) 10/14/20 07/07/21 Magdalena Brice Personal Advocate & Liaison (PAL) 11/14/21 12/27/21 Maddie Mae Personal Advocate & Liaison (PAL) Family Medicine 12/28/21 Aydee Mcgill RN RN Clinical Product Navigator Primary Care - CC 06/30/22 06/30/22 Wendy Agustin APRN HOME INSURANCE AGENT [address] [facility] [address] [place] [address] Assigned PCP 10/09/23 documented as of this encounter
--- OUTSIDE RECORDS SUMMARY | 2023-12-15 01:44 | XMS_ITS | Encounter Summary ---
Author Organization [place] Address [address] [place] [address] Care Team Providers Care Waterworks Pump Station Operator Name Role Phone Madhuri Whitman DATABASE SPECIALIST SENIOR TECHNICAL WRITER Primary Care Prov ider Edu Crawford DPM Unavailable [phone] Madhuri Whitman APRN SENIOR TECHNICAL WRITER Unavailable + Rosey Alexander MANAGER FILTER Unavailable Rosey Alexander MANAGER FILTER Unavailable [phone] Craig Montenegro PA-C Unavailable [phone] Altagracia Alexander DPM, Podiatry /Foot and Ankle Surgery Unavailable Enrico Felton DO Unavailable [phone] Enrico Felton DO Primary Care Provider [phone] Cy Leonardo Unavailable Unavailable Enrico Felton DO Unavailable [phone] Rebecca Palumbo MD Unavailable [phone] Anders Ramachandran Unavailable Unavailable Magdalena Brice Unavailable Unavailable Maddie Mae Unavailable Unavailable No Ref-Primary, Physician Primary Care Provider Enrico Felton DO Primary Care Provider [phone] Aydee Mcgill RN Unavailable [phone] Wendy Agustin DATABASE SPECIALIST SENIOR TECHNICAL WRITER Unavailable Encounter Details Date Type Department Care Team (Late st Contact Info) Description 06/14/2018 MyC Medical Advice [facility] [address] [facility], [address] [place] [phone] Melissa Flores, DICE MAKER Social History Tobacco Use Types Packs/Day Years [...] Appointment [facility] Wound [address] [place] [phone] Kingsley Westbrook, GAYLA [address] [place] [address] documented as of this encounter Visit Diagnoses Not on filedocumented in this encounter Additional Health Concerns Infection Onset Date Last Indicated Resolved Time 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 per 09/01/16 frame coverer note; left foot tissue 10/08/16 09/01/2016 09/01/2016 10/11/2018 7:49 AM C DT MRSA Comment:MRSA at outside facility per 09/01/16 frame coverer note; left foot tissue 10/08/16 10/11/2018 02/27/2019 Assessment Noted Time PHQ-9 Depression Total Score: 0 07/29/19 18 2:19 PM CDT documented as of this encounter Care Teams Waterworks Pump Station Operator Relationship Specialty Start Date End Date Madhuri Whitman APRN SENIOR TECHNICAL WRITER PCP - General Nurse Practitioner - Family 09/04/16 08/23/20 [place] [address] [place] [address] PCP - General Family Medicine 08/24/20 01/23/22 No Ref-Primary, Physician PCP - General 02/20/22 06/29/22 [place] [address] [place] [address] PCP - General Family Medicine 06/30/22 Edu Crawford DPM [address] [facility] [address] [place] [address] Podiatry 10/18/16 Madhuri Whitman APRN SENIOR TECHNICAL WRITER [address] [place] [address] Assigned PCP 09/03/16 09/27/19 Rosey Alexander, [facility] Clinic Paleology Teacher Primary Care - CC 09/27/18 9 Rosey Alexander, [facility] Lead Paleology Teacher Primary Care - CC 11/08/18 05/07/19 Craig Montenegro PA-C [address] [place] [address] Assigned PCP 09/28/19 01/31/20 Altagracia Alexander DPM, Podiatry/Foot and Ankle Surgery [address] [facility] [address] [place] [address] Assigned Musculoskeletal Provider 01/09/20 10/30/20 [place] [address] [place] [address] Assigned PCP 02/01/20 08/28/20 Cy Leonardo Personal Advocate & Liaison (PAL) 08/26/20 10/13/20 [place] [address] [place] [address] Assigned PCP 08/29/20 10/08/23 Rebecca Palumbo MD [address] [place] [address] 297 [place], [place] [address] Assigned Neuroscience Provider 10/01/20 10/14/21 Anders Ramachandran Personal Advocate & Liaison (PAL) 10/14/20 07/07/21 Magdalena Brice Personal Advocate & Liaison (PAL) 11/14/21 12/27/21 Maddie Mae Personal Advocate & Liaison (PAL) Family Medicine 12/28/21 Aydee Mcgill RN ROQUE Clinical Product Navigator Primary Care - CC 06/30/22 06/30/22 Wendy Agustin APRN SENIOR TECHNICAL WRITER [address] [facility] [address] [place], [place] [address] Assigned PCP 10/09/23 documented as of this encounter
--- OUTSIDE RECORDS SUMMARY | 2023-12-15 01:44 | XMS_ITS | Encounter Summary ---
Author Organization [place] Address [address] [place] [address] Care Team Providers Care Rn Social Work Name Role Phone Madhuri Whitman APRN VP CARDIOVASCULAR Primary Care Prov ider Edu Crawford DPM Unavailable Altagracia Alexander DPM, Podiatry /Foot and Ankle Surgery Unavailable Enrico Felton DO Unavailable [phone] Enrico Felton DO Primary Care Provider [phone] Cy Leonardo Unavailable Unavailable Enrico Felton DO Unavailable [phone] Rebecca Palumbo MD Unavailable [phone] Anders Ramachandran Unavailable Unavailable Magdalena Brice Unavailable Unavailable Maddie Mae Unavailable Unavailable No Ref-Primary, Physician Primary Care Provider Enrico Felton DO Primary Care Provider [phone] Aydee Mcgill RN Unavailable [phone] Wendy Agustin APRN VP CARDIOVASCULAR Unavailable [phone] Reason for Visit * Reason Comments Medication Refill Encounter Details Date Type Department Care Team (Late st Contact Info) Description 02/13/[address], [address] [place] [address] Craig Montenegro PA-C [address] [place] [address] Medication Refill Social History Tobacco Use Types [...] COVID-19? No / Unsure 01/21/2020 3:59 PM YOUTH COORDINATOR documented as of this encounter Miscellaneous Notes * Telephone Encounter - Anabell Patten CMA - 03/01/2020 1:44 PM YOUTH COORDINATOR LMOM will send letter-Needs lab only appt Anabell Patten CMA H COORDINATOR * Telephone Encounter - Jenny Roman MA - 02/20/2020 11:18 AM CST LVM for pt to schedule a lab only appt. Jenny Roman MA on 02/20/2020 at 11:18 AM H COORDINATOR * Telephone Encounter - America Green - 02/16/2020 10:30 AM CST Left message for patient to call and schedule lab only America Green/ Drupal Programmer H COORDINATOR * Telephone Encounter - Cooper Rice MD - 02/16/2020 10:27 AM CST Pt needs lab only appt Already futured Cooper Rice MD H COORDINATOR * Telephone Encounter - Azul Packer RN - 02/13/2020 7:32 AM YOUTH COORDINATOR Routing refill request to provider for review/approval because: Labs not current: Lipids RN will issue 90 day denise. Visit is up to date. Please advise on labs. Azul Packer RN [facility] -- Triage Nurse H COORDINATOR documented in this encounter Plan of Treatment Upcoming Encounters Date Type Department Care Team (Late st Contact Info) Description 12/21/2023 2:00 PM CDT Appointment [facility] [address] [place] [address] Kingsley Westbrook DPM [address] [place] [address] documented as of this encounter Goals Goal Patient Goal Type Associated Problems Recent Progress Patient-Stated? Author Financial Wellbeing General Yes Rosey Alexander, MECHANICAL INSPECTOR documented as of this encounter Visit Diagnoses Diagnosis Hyperlipidemia with target LDL less than 100 Other and unspecified hyperlipidemia documented in this encounter Additional Health Concerns Infection Onset Date Last Indicated Resolved Time MRSA Comment:MRSA at outside facility per 09/01/16 wagon driller note; left foot tissue 10/08/16 10/11/2018 02/27/2019 Assessment Noted Time PHQ-9 Depression Total Score: 10 020 4:12 PM YOUTH COORDINATOR documented as of this encounter Care Teams Rn Social Work Relationship Specialty Start Date End Date Madhuri Whitman APRN VP CARDIOVASCULAR PCP - General Nurse Practitioner - Family 09/04/16 08/23/20 [place] [address] [place] [address] PCP - General Family Medicine 08/24/20 01/23/22 No Ref-Primary, Physician PCP - General 02/20/22 06/29/22 [place] [address] [place] [address] PCP - General Family Medicine 06/30/22 Edu Crawford DPM [address] [facility] [address] [place], [place] [phone] Podiatry 10/18/16 Altagracia Alexander DPM, Podiatry/Foot and Ankle Surgery [address] [place], [place] [address] Assigned Musculoskeletal Provider 01/09/20 10/30/20 [place] [address] [place] [address] Assigned PCP 02/01/20 08/28/20 Cy Leonardo Personal Advocate & Liaison (PAL) 08/26/20 10/13/20 [place] [address] [place] [address] Assigned PCP 08/29/20 10/08/23 Rebecca Palumbo MD [address] [place] [address] 297 [place], [place] 8[address] Assigned Neuroscience Provider 10/01/20 10/14/21 Anders Ramachandran Personal Advocate & Liaison (PAL) 10/14/20 07/07/21 Magdalena Brice Personal Advocate & Liaison (PAL) 11/14/21 12/27/21 Maddie Mae Personal Advocate & Liaison (PAL) Family Medicine 12/28/21 Aydee Mcgill RN RN Clinical Product Navigator Primary Care - CC 06/30/22 06/30/22 Wendy Agustin APRN VP CARDIOVASCULAR [address] [facility] [address] [place] [address] Assigned PCP 10/09/23 documented as of this encounter
--- OUTSIDE RECORDS SUMMARY | 2023-12-15 01:44 | XMS_ITS | Encounter Summary ---
Author Organization [place] Address [address] [place] [address]. [place] [address] Care Team Providers Care Operations Administrative Assistant Name Role Phone Yvette Edu DPM Unavailable [phone] Enrico Felton DO Primary Care Provider [phone] Enrico Felton DO Unavailable [phone] Rebecca Palumbo MD Unavailable [phone] Anders Ramachandran Unavailable Unavailable Magdalena Brice Unavailable Unavailable Maddie Mae Unavailable Unavailable No Ref-Primary, Physician Primary Care Provider Enrico Felton DO Primary Care Provider [phone] Aydee Mcgill RN Unavailable [phone] Wendy Agustin APRN PRODUCT DEVELOPMENT INTERN Unavailable [phone] Encounter Details Date Type Department Care Team (Late st Contact Info) Description 11/17/2020 MyC Medical Advice [facility] [address] [place] [phone] [place] [id number] [place] [address] Social History Tobacco Use Types Packs/Day [...] CDT Appointment [facility] Wound [facility] [address] [place] [address] [address] [place] [address] Kingsley Westbrook DPM [address] [place], [place] [address] documented as of this encounter Goals Goal Patient Goal Type Associated Problems Recent Progress Patient-Stated? Author Financial Wellbeing General Yes Rosey Alexander, GREY TENDER documented as of this encounter Visit Diagnoses Not on filedocumented in this encounter Additional Health Concerns Infection Onset Date Last Indicated Resolved Time MRSA Comment:MRSA at outside facility per 09/01/16 rat trapper note; left foot tissue 10/08/16 10/11/2018 02/27/2019 Assessment Noted Time PHQ-9 Depression Total Score: 3 08/24/19 21 12:19 PM CDT documented as of this encounter Care Teams Operations Administrative Assistant Relationship Specialty [place] [address] [place] [address] PCP - General Family Medicine 08/24/20 01/23/22 No Ref-Primary, Physician PCP - General 02/20/22 06/29/22 [place] [address] [place] [address] PCP - General Family Medicine 06/30/22 [place] [address] [facility] [address] [place] [address] Podiatry 10/18/16 [place] [address] [place] [address] Assigned PCP 08/29/20 10/08/23 Rebecca Palumbo MD [address] [place] [address] 297 [place], [place] [address] Assigned Neuroscience Provider 10/01/20 10/14/21 Anders Ramachandran Personal Advocate & Liaison (PAL) 10/14/20 07/07/21 Magdalena Brice Personal Advocate & Liaison (PAL) 11/14/21 12/27/21 Maddie Mae Personal Advocate & Liaison (PAL) Family Medicine 12/28/21 Aydee Mcgill RN ROQUE Clinical Product Navigator Primary Care - CC 06/30/22 06/30/22 Wendy Agustin APRN PRODUCT DEVELOPMENT INTERN [address] [facility] [address] [place] [address] Assigned PCP 10/09/23 documented as of this encounter
--- OUTSIDE RECORDS SUMMARY | 2023-12-15 01:44 | XMS_ITS | Encounter Summary ---
Author Organization [facility] Address [address] [place] [address] Care Team Providers Care Church Supervisor Name Role Phone Madhuri Whitman APRN COIL INSPECTOR Primary Care Prov ider Edu Crawford DPM Unavailable Altagracia Alexander DPM, Podiatry /Foot and Ankle Surgery Unavailable Enrico Felton DO Unavailable [phone] Enrico Felton DO Primary Care Provider [phone] Cy Leonardo Unavailable Unavailable Enrico Felton DO Unavailable [phone] Rebecca Palumbo MD Unavailable [phone] Anders Ramachandran Unavailable Unavailable Magdalena Brice Unavailable Unavailable Maddie Mae Unavailable Unavailable No Ref-Primary, Physician Primary Care Provider Enrico Felton DO Primary Care Provider [phone] Aydee Mcgill RN Unavailable [phone] Wendy Agustin APRN COIL INSPECTOR Unavailable [phone] Encounter Details Date Type Department Care Team (Late st Contact Info) Description 05/20/2020 MyC Medical Advice [address] [address] Camila Mejia Social History Tobacco [...] Description 12/21/2023 2:00 PM CDT Appointment [facility] [place] [address] [place] [address] [address] [place] [address] Kingsley Westbrook DPM [address] [place] [address] [id number] documented as of this encounter Goals Goal Patient Goal Type Associated Problems Recent Progress Patient-Stated? 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 documented as of this encounter Care Teams Church Supervisor Relationship Specialty Start Date End Date Madhuri Whitman APRN CNP PCP - General Nurse Practitioner - Family 09/04/16 08/23/20 [place] [address] [place] [address] PCP - General Family Medicine 08/24/20 01/23/22 No Ref-Primary, Physician PCP - General 02/20/22 06/29/22 [place] [address] [place] [address] PCP - General Family Medicine 06/30/22 [place] [address] [place] [address] Podiatry 10/18/16 Altagracia Alexander DPM, Podiatry/Foot and Ankle Surgery [address] [place], [place] [id number] Assigned Musculoskeletal Provider 01/09/20 10/30/20 [place] [address] [place] [address] Assigned PCP 02/01/20 08/28/20 Cy Loenardo Personal Advocate & Liaison (PAL) 08/26/20 10/13/20 [place] [address] [place] [address] Assigned PCP 08/29/20 10/08/23 Rebecca Palumbo MD [address] [place] [address] [id number] Assigned Neuroscience Provider 10/01/20 10/14/21 Anders Ramachandran Personal Advocate & Liaison (PAL) 10/14/20 07/07/21 Magdalena Brice Personal Advocate & Liaison (PAL) 11/14/21 12/27/21 Maddie Mae Personal Advocate & Liaison (PAL) Family Medicine 12/28/21 Aydee Mcgill RN RN Clinical Product Navigator Primary Care - CC 06/30/22 06/30/22 Wendy Agustin APRN COIL INSPECTOR [address] [facility] [address] [place], [place] [address] Assigned PCP 10/09/23 documented as of this encounter
--- OUTSIDE RECORDS SUMMARY | 2023-12-15 01:44 | XMS_ITS | Encounter Summary ---
Author Organization [facility] Address [address] [place] [address] Care Team Providers Care Movie Theater Manager Name Role Phone Madhuri Whitman SHERIFF SERGEANT TIRE TECHNICIAN Primary Care Prov ider Edu Crawford DPM Unavailable [phone] Madhuri Whitman APRN TIRE TECHNICIAN Unavailable + Madhuri Whitman APRN TIRE TECHNICIAN Unavailable + Rosey Alexander STAFF ELECTRONIC WARFARE OFFICER Unavailable [phone] Rosey Alexander STAFF ELECTRONIC WARFARE OFFICER Unavailable [phone] [place] Montenegro PA-C Unavailable [phone] Altagracia Alexander DPM, Podiatry /Foot and Ankle Surgery Unavailable Enrico Felton DO Unavailable [phone] Enrico Felton DO Primary Care Provider [phone] Cy Leonardo Unavailable Unavailable Enrico Felton DO Unavailable [phone] Rebecca Palumbo MD Unavailable [phone] Anders Ramachandran Unavailable Unavailable Magdalena Brice Unavailable Unavailable Maddie Mae Unavailable Unavailable No Ref-Primary, Physician Primary Care Provider Enrico Felton DO Primary Care Provider [phone] Aydee Mcgill RN Unavailable [phone] Wendy Agustin SHERIFF SERGEANT TIRE TECHNICIAN Unavailable [phone] Reason for Visit * Reason Onset Date Comments Medication Refill 11/20/2017 amLODIPine and lisinopril Encounter Details Date Type Department Care Team (Late st Contact Info) Description 11/17/[address], [address] [place] [address] Madhuri Whitman, SHERIFF SERGEANT TIRE TECHNICIAN [address] [place] [address] Medication Refill (amLODIPine and lisinopril ) Social [...] 11:08 AM CDT Prescription approved per [facility] Refill Protocol. Kayleigh Foster RN * Telephone [...] 2:00 PM CDT Appointment [facility] [place] [address] [place] [address] Kingsley Westbrook DPM [address] [place] [address] documented as of this encounter Visit Diagnoses Diagnosis Hypertension goal BP (blood pressure) < 140/90 Unspecified essential hypertension documented in this encounter Additional Health Concerns Infection Onset Date Last Indicated Resolved Time 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 per 09/01/16 plug cutting machine operator note; left foot tissue 10/08/16 09/01/2016 09/01/2016 10/11/2018 7:49 AM C DT MRSA Comment:MRSA at outside facility per 09/01/16 plug cutting machine operator note; left foot tissue 10/08/16 10/11/2018 02/27/2019 Assessment Noted Time PHQ-9 Depression Total Score: 0 07/29/19 18 2:19 PM CDT documented as of this encounter Care Teams Movie Theater Manager Relationship Specialty Start Date End Date Madhuri Whitman APRN TIRE TECHNICIAN PCP - General Nurse Practitioner - Family 09/04/16 08/23/20 Madhuri Whitman APRN TIRE TECHNICIAN [address] [place] [address] PCP - Assigned PCP 09/03/16 05/21/18 [place] [address] [place] [address] PCP - General Family Medicine 08/24/20 01/23/22 No Ref-Primary, Physician PCP - General 02/20/22 06/29/22 [place] [address] [place] [address] PCP - General Family Medicine 06/30/22 [place] [address] [facility] [address] [place], [place] 6[address] Podiatry 10/18/16 Madhuri Whitman APRN TIRE TECHNICIAN [address] [place] [address] Assigned PCP 09/03/16 09/27/19 Rosey Alexander, STAFF ELECTRONIC WARFARE OFFICER Clinic Pickling Operator Primary Care - CC 09/27/18 9 Rosey Alexander, STAFF ELECTRONIC WARFARE OFFICER Lead Pickling Operator Primary Care - CC 11/08/18 05/07/19 [place] Montenegro PA-C [address] [place] [address] Assigned PCP 09/28/19 01/31/20 Altagracia Alexander DPM, Podiatry/Foot and Ankle Surgery [address] [facility] [address] [place], [place] [address] Assigned Musculoskeletal Provider 01/09/20 10/30/20 [place] [address] [place] [address] Assigned PCP 02/01/20 08/28/20 Cy Leonardo Personal Advocate & Liaison (PAL) 08/26/20 10/13/20 [place] [address] [place] [address] Assigned PCP 08/29/20 10/08/23 Rebecca Palumbo MD [address] [place] [address] [address] [place], [place] [address] Assigned Neuroscience Provider 10/01/20 10/14/21 Anders Ramachandran Personal Advocate & Liaison (PAL) 10/14/20 07/07/21 Magdalena Brice Personal Advocate & Liaison (PAL) 11/14/21 12/27/21 Maddie Mae Personal Advocate & Liaison (PAL) Family Medicine 12/28/21 Aydee Mcgill, RN RN Clinical Product Navigator Primary Care - CC 06/30/22 06/30/22 Wendy Agustin APRN TIRE TECHNICIAN [address] [place] [address] Assigned PCP 10/09/23 documented as of this encounter
--- OUTSIDE RECORDS SUMMARY | 2023-12-15 01:44 | XMS_ITS | Encounter Summary ---
Author Organization [facility] Address [address] [place] [address] Care Team Providers Care Pipe Machine Operator Name Role Phone Edu Crawford DPM Unavailable [phone] Altagracia Alexander DPM, Podiatry /Foot and Ankle Surgery Unavailable Enrico Felton DO Unavailable [phone] Enrico Felton DO Primary Care Provider [phone] Cy Leonardo Unavailable Unavailable Enrico Felton DO Unavailable [phone] Rebecca Palumbo MD Unavailable [phone] Anders Ramachandran Unavailable Unavailable Magdalena Brice Unavailable Unavailable Maddie Mae Unavailable Unavailable No Ref-Primary, Physician Primary Care Provider Enrico Felton DO Primary Care Provider [phone] Aydee Mcgill RN Unavailable [phone] Wendy Agustin APRN SCHOOL OCCUPATIONAL THERAPIST Unavailable [phone] Encounter Details Date Type Department Care [...] Description 12/21/2023 2:00 PM CDT Appointment [facility] [address] [place] [address] Kingsley Westbrook DPM [address] [place] [address] documented as of this encounter Goals Goal Patient Goal Type Associated Problems Recent Progress Patient-Stated? Author Financial Wellbeing General Yes Rosey Alexander, ASBESTOS BRAKE LINING FINISHER documented as of this encounter Visit Diagnoses Not on filedocumented in this encounter Additional Health Concerns Infection Onset Date Last Indicated Resolved Time MRSA Comment:MRSA at outside facility per 09/01/16 videotape sales representative note; left foot tissue 10/08/16 10/11/2018 02/27/2019 Assessment Noted Time PHQ-9 Depression Total Score: 3 08/24/19 21 12:19 PM CDT documented as of this encounter Care Teams Pipe Machine Operator Relationship Specialty [place] [address] [place] [address] PCP - General Family Medicine 08/24/20 01/23/22 No Ref-Primary, Physician PCP - General 02/20/22 06/29/22 [place] [address] [place] [address] PCP - General Family Medicine 06/30/22 Edu Crawford DPM [address] [place] [address] [address] [place] [address] Podiatry 10/18/16 Altagracia Alexander DPM, Podiatry/Foot and Ankle Surgery [address] [facility] [address] [place], [place] 54[address] Assigned Musculoskeletal Provider 01/09/20 10/30/20 [place] [address] [place] [address] Assigned PCP 02/01/20 08/28/20 Cy Leonardo Personal Advocate & Liaison (PAL) 08/26/20 10/13/20 [place] [address] [place] [address] Assigned PCP 08/29/20 10/08/23 Rebecca Palumbo MD [address] [place] [address] [address] [place], [place] [address] Assigned Neuroscience Provider 10/01/20 10/14/21 Anders Ramachandran Personal Advocate & Liaison (PAL) 10/14/20 07/07/21 Magdalena Brice Personal Advocate & Liaison (PAL) 11/14/21 12/27/21 Maddie Mae Personal Advocate & Liaison (PAL) Family Medicine 12/28/21 Aydee Mcgill RN ROQUE Clinical Product Navigator Primary Care - CC 06/30/22 06/30/22 Wendy Agustin APRN SCHOOL OCCUPATIONAL THERAPIST [address] [facility] [address] [place], [place] [address] Assigned PCP 10/09/23 documented as of this encounter
--- OUTSIDE RECORDS SUMMARY | 2023-12-15 01:45 | XMS_ITS | Clinical Summary ---
Author Organization [facility] Address [place], [place] [address] Care Team Providers Care Terrazzo Polisher Helper Name Role Phone Enrico Felton DO Primary Care Provider [phone] Allergies Active Allergy Reactions Criticality Noted Date [...] 5 mg by mouth once daily. 12/09/2021 4 Discontinued(Re order (E-cancel not sent)) lisinopriL (PRINIVIL; ZESTRIL) 20 mg tablet Take 20 mg by mouth once daily. 12/09/2021 4 Discontinued(Re order (E-cancel not sent)) pantoprazole (PROTONIX) 40 mg delayed-release tablet Take 40 mg by mouth once daily. 10/25/2021 4 Discontinued(Ph armacist change per medication history (E-cancel not sent)) PARoxetine (PAXIL) 30 mg tablet Take 60 mg by mouth once daily. 12/09/2021 4 Discontinued(Ph armacist change per medication history (E-cancel not sent)) rosuvastatin (CRESTOR) 5 mg tablet Take 5 mg by mouth at bedtime. 12/09/2021 4 Discontinued(Re order (E-cancel not sent)) pregabalin (LYRICA) 150 mg capsule Take 150 mg by mouth two times daily. 4 Discontinued(Ph armacist change per medication history (E-cancel not sent)) WalkerIndications :Cavernous malformation Walker with front wheels for home use. 1 Each 01/03/2022 4 Discontinued(Re order (E-cancel not sent)) buprenorphine-nal oxone (Suboxone) 4-[address] 1 Film under the tongue two times daily. Place film under the tongue until completely dissolved. Do not chew or swallow film. 4 Discontinued(Ph armacist change per medication history (E-cancel not sent)) nicotine 14 mg/24 hr (NICODERM; HABITROL) 14 mg/24 hr patchIndications: Tobacco abuse [The details of the medication are not available because there are pending changes by a home health clinician.] 30 Patch 06/18/2022 4 Discontinued(Re order (E-cancel not sent)) buprenorphine-nal oxone (SUBOXONE) 8-[address] 1 Film under the tongue once daily. Suspended celecoxib (CELEBREX) 100 mg capsule Take 100 mg by mouth two times daily with meals. 11/28/2023 Suspended hydrOXYzine HCL (ATARAX) 25 mg tablet Take 25 mg by mouth every 6 hours if needed. 11/14/2023 Suspended Myrbetriq 25 mg tablet Take 25 mg by mouth once daily. 09/13/2023 Suspended omeprazole (PRILOSEC) 40 mg Delayed-Release capsule Take 40 mg by mouth once daily before a meal. 11/28/2023 Suspended oxybutynin (DITROPAN) 5 mg tablet Take 5 mg by mouth at bedtime. 11/28/2023 Suspended pregabalin (LYRICA) 150 mg capsule Take 150 mg by mouth two times daily. 11/28/2023 Suspended PARoxetine (PAXIL) 20 mg tablet Take 40 mg by mouth once daily in the morning. 11/27/2023 Suspended cloNIDine HCL (CATAPRES) 0.1 mg tablet Take 0.1 mg by mouth two times daily. 10/31/2023 Suspended ondansetron (ZOFRAN) 4 mg tablet Take 4 mg by mouth every 8 hours if needed for Nausea/Vomiting . 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 04/01/2008 Degeneration of lumbar or lumbosacral interverte bral disc 02/26/2008 Narcotic Contract 04/19/2007 Major depressive disorder, recurrent [...] Date Resolved Date Narcotic Contract 04/19/2007 10/28/2008 Encounters Date Type Department Care Team Description 12/12/2023 3:26 AM CDT - Present Hospital Encounter [facility] [address] [place] [address] Weinkauf, MD Kamryn Merino, MD Thanh Pagan, MD Jessica Quiñones Amrith, MD [facility], [facility] Hospitalists Of Cavernous malformation (Primary Dx) 12/12/2023 [facility] [address] [address] Bindu Santoro, [employer] Update from Last 3 Months Immunizations Name Administration Dates Next Due Influenza [...] Name Comments Diabetes Daughter Heart Disease Father [place] @ age 58 Hypertension Father Cancer-breast Mother [...] Sign Reading Time Taken Comments Blood Pressure 133/71 12/15/2023 12:21 AM CDT Pulse 53 12/15/2023 12:21 AM CDT Temperature 36.7 ??C (98 ??F) 12/15/2023 12: 21 AM CDT Respiratory Rate 16 12/15/2023 12:2 1 AM CDT Oxygen Saturation 93% 12/15/2023 12: 24 AM CDT Inhaled Oxygen Concentration - - Weight 90.5 kg (199 lb 8.3 oz) 12/14/2023 5:00 AM CDT Height 175.3 cm (5' 9) 12/14/2023 3:12 PM CDT previous [facility] chart Body Mass Index 29.46 12/14/2023 5:00 AM CDT Plan of Treatment Upcoming Encounters Date Type Department Care Team (Late st Contact Info) Description 01/01/2024 8:00 AM CDT Office [place] [facility] [address] [facility] [address] [place] [address] Ernesto Dumont, DPM [address] [facility] [address] [place], [place] [id number] Scheduled Procedures Name Priority Associated Diagnoses Date/Ti me CRANIOTOMY INTRAOPERATIVE MRI Class D Urgent Cavernous malformation Health Maintenance Due Date Last Done Comments [...] 09/20/2020, 08/23/2020 Influenza for age 50-64 11/18/2023 12/30/19, 02/17/2019, 02/21/2017, Additional history exists Tetanus booster 02/21/2032 02/20/2022, 06/2011, 01/15/2002, Additional history exists Pneumococcal series for age 6-64 Completed 02/21/20, 04/22/2009 Tdap Completed 02/20/2022, 12/21/2011 Zoster (shingles) series for age 50+ Completed 02/20/2022, 08/23/2020 Medical Devices Implanted Type Area Donor Technician Device Identifier Shelf Expiration Date Model / Serial / Lot Screw 6.5x35 Tsrh-3d Shrt Post - [id number] Implanted:Qty: 3 on 04/20/2009 at [facility] Spine Implants N/A: Spine SO[employer]OR [employer]ANEK [id number]# / / Screw 6.5x40 Tsrh-3d Shrt Post - [id number] Implanted:Qty: 2 on 04/20/2009 at [facility] Spine Implants N/A: Spine SO[employer]ANEK [id number]# / / Christopher 6.0cmx5.5mm Pre-Cut - [id number] Implanted:Qty: 1 on 04/20/2009 at [facility] Spine Implants N/A: Lumbar Vertebrae SOF[employer]OR [employer]ANEK [id number]# / / Christopher 7.0cmx5.5mm Pre-Cut - [id number] Implanted:Qty: 1 on 04/20/2009 at [facility] Spine Implants N/A: Lumbar Vertebrae SO[employer]OR [employer]ANEK [id number]# / / Putty Bone Dbx 1cc [id number] - [id number] Implanted:Qty: 1 on 05/01/2005 at [facility] Explanted:at [facility] (Quantity not on file) Spine Musculoskeletal Transplant 01/18/2007 [id number]# / [id number] / Block Aric [id number] - [id number] Implanted:Qty: 1 on 05/01/2005 at [facility] Explanted:at [facility] (Quantity not on file) Spine Medtronic 08/18/2006 [id number]# / [id number] / [id number] Description:EXP 08/18/06 Block Aric [id number] - [id number] Implanted:Qty: 1 on 05/01/2005 at [facility] Explanted:at [facility] (Quantity not on file) Spine Medtronic 05/11/[id number]# / [id number] / [id number] Description:EXP 05/11/06 Screw Canclls 4.0x14mm Self-Tapping - [id number] Implanted:Qty: 4 on 05/01/2005 at [facility] Cervical Vertebrae SOFAMOR DANEK [id number]# / / Implant On The Fly - [id number] Implanted:Qty: 1 on 05/01/2005 at [facility] Cervical Vertebrae [id number] / / Description:40MM ANTERIOR CE RVICAL PLATE Plate Pyramid 4h 37mm - [id number] Implanted:Qty: 1 on 04/20/2009 at [facility] N/A: Spine SOFAMOR DANEK [id number]# / / Screw Lock 03/22-32 Flush Break Ti - [id number] Implanted:Qty: 5 on 04/20/2009 at [facility] N/A: Spine SOFAMOR [employer]ANEK [id number]# / / Kit Infuse Bone Graft [id number] - [id number] Implanted:Qty: 1 on 04/20/2009 at [facility] Spine Medtronic 10/17/2010 [id number]# / / [id number] D Putty Mastergraft 10cc - [id number] Implanted:Qty: 1 on 04/20/2009 at [facility] Spine Medtronic 11/16/2012 [id number]# / / [id number] Vessel Guard Preclude 5x6cm - [id number] Implanted:Qty: 1 on 04/20/2009 at [facility] Spine [employer] [id number]# / / [id number] 20x4mm Screw Implanted:Qty: 4 on 04/20/2009 at [facility] Spine Gnzo 04.802.21 1 / / Description:20X4MM SCREW Connector Small 5.5 Implanted:Qty: 5 on 04/20/2009 at [facility] Spine [employer]onic [id number] / / Description:CONNECTOR SMALL 5.5 [id number] Implanted:Qty: 1 on 04/20/2009 at [facility] Explanted:at [facility] (Quantity not on file) Spine [employer]osource 03/30/2013 [id number] / [id number] / Description:OSTEOCEL 5CC [id number] 4-407bone Prec 14x26 [[id number]] Implanted:Qty: 1 on 04/20/2009 at [facility] Explanted:at [facility] (Quantity not on file) Spine [employer] 12/19/2011 [id number]# / [id number] 4-407 / Implant Spine 32a67s10dg 12 Deg Spacer/Plate - [id number] Implanted:Qty: 1 on 04/20/2009 at [facility] N/A: Spine Gnzo 08.802.01 3S# / / Screw Arlin 6.5x30mm - [id number] Implanted:Qty: 4 on 04/20/2009 at [facility] N/A: Spine SOFAMOR DANEK [id number]# / / Procedures The patient is currently admitted. The information in this section might not be complete until the patient is discharged. Procedure Name Priority Date/Time Associated Diagnosis Comments GLUCOSE METER Timed 12/14/2023 10:38 PM CDT GLUCOSE METER Timed 12/14/2023 6:30 PM CDT GLUCOSE METER Timed 12/14/2023 12:22 PM CDT GLUCOSE METER Timed 12/14/2023 9:47 AM CDT MAGNESIUM Early AM 12/14/2023 4:58 AM CDT GLUCOSE METER Timed 12/13/2023 10:54 PM CDT GLUCOSE METER Timed 12/13/2023 5:38 PM CDT GLUCOSE METER Timed 12/13/2023 1:24 PM CDT GLUCOSE METER Timed 12/13/2023 8:42 AM CDT MAGNESIUM AHSAN 12/13/2023 5:51 AM CDT SODIUM Early AM 12/13/2023 5:51 AM CDT WHITE BLOOD COUNT Early AM 12/13/2023 5:5 1 AM CDT GLUCOSE METER Timed 12/12/2023 9:43 PM CDT SCAN-CARDIAC STRIP 12/12/2023 8: 00 PM CDT GLUCOSE METER Timed 12/12/2023 4:12 PM CDT ANAEROBIC CULTURE Today 12/12/2023 4:1 0 PM CDT AEROBIC BACTERIAL CULTURE, STAIN Today 12/12/2023 4:10 PM CDT MRSA/SA PCR Today 12/12/2023 2:14 PM CDT XR FOOT 3 VIEWS RIGHT PORTABLE Routine 12/12/2023 2:11 PM CDT GLUCOSE METER Timed 12/12/2023 1:11 PM CDT AMMONIA Today 12/12/2023 10:08 AM CDT SCAN-CARDIAC STRIP 12/12/2023 10 :00 AM CDT EKG 12 LEAD AHSAN 12/12/2023 9:33 AM CDT GLUCOSE METER Timed 12/12/2023 8:[address] ANGIO HEAD STAT 12/12/2023 6:[address] HEAD BRAIN WO Timed 12/12/2023 6:30 AM CDT CBC WITH AUTO DIFFERENTIAL STAT 12/12/2023 5:17 AM CDT CBC WITH AUTO DIFFERENTIAL STAT 12/12/2023 5:17 AM CDT BASIC METABOLIC PANEL STAT 12/12/2023 5:17 AM CDT HEMOGLOBIN A1C MONITORING (POCT) Today 12/12/2023 5:17 AM CDT DRUG SCREEN RAPID URINE INHOUSE Today 12/12/2023 5:16 AM CDT GLUCOSE METER Timed 12/12/2023 3:54 AM CDT EKG 12 LEAD STAT 12/12/2023 3:43 AM CDT XR MAMMO BILAT SCREEN FFDM (IA) Routine 03/07/2011 4:12 PM CHANNEL[employer] INSOLE Other screening mammogram LIPID PANEL Routine 03/07/2011 7:40 AM [employer] Essential hypertension, benign FRENCH LECTURER THIN PREP PAP SCREEN IMAGED Routine 01/30/2008 4:13 PM CHANNELER INSOLE Routine Gynecological Examination from Last 3 Months or Most Recently Relevant to Health Maintenance Results * (ABNORMAL) GLUCOSE METER (12/14/2023 10:38 PM CDT) Only the most recent of13 resultswithin the time period is included. GLUCOSE METER 145(H) 65 - 100 mg/dL 12/14/2023 10:38 PM CDT [facility] [employer] [facility] Blood BLOOD SPECIMEN / Unknown 12/14/2023 10:38 PM CDT 12/14/2023 10:38 PM CDT Saman Lopez MD CHEMISTRY [facility] [address] [place] [address], * MAGNESIUM (12/14/2023 4:58 AM CDT) Only the most recent of2 resultswithin the time period is included. MAGNESIUM 2.0 1.6 - 2.4 mg/dL 12/14/2023 5:58 AM CDT [facility] Blood BLOOD SPECIMEN / Unknown Butterfly / Unknown 12/14/2023 4:58 AM CDT 12/14/2023 5:24 AM CDT Nusrat Harry MD CHEMISTRY Performing Organization Address [facility] Co de Phone Number [facility] [address] [address], [place] * WHITE BLOOD COUNT (12/13/2023 5:51 AM CDT) WHITE BLOOD COUNT 10.8 4.5 - 11.0 thou/cu mm 12/13/2023 6:28 AM CDT [facility] NRBC 0.0 % 12/13/2023 6:28 AM CDT [facility] ABS NRBC 0.0 thou /cu mm 12/13/2023 6:28 AM CDT [facility] Blood BLOOD SPECIMEN / Unknown Butterfly / Unknown 12/13/2023 5:51 AM CDT 12/13/2023 6:18 AM CDT Miguel Angel Law MD HEMATOLOGY Performing Organization Address [facility] Co de Phone Number [facility] [address] [phone], [place] * Sodium AM (12/13/2023 5:51 AM CDT) SODIUM 143 136 - 145 mmol/L 12/13/2023 6:50 AM CDT [facility] Blood BLOOD SPECIMEN / Unknown Butterfly / Unknown 12/13/2023 5:51 AM CDT 12/13/2023 6:19 AM CDT Miguel Angel Law MD CHEMISTRY Performing Organization Address [facility] Co de Phone Number [facility] [address] [address], [place] * SCAN-CARDIAC STRIP (12/12/2023 8:00 PM CDT) Scanner OTHER * (ABNORMAL) MRSA/SA PCR (12/12/2023 2:14 PM CDT) MRSA DNA PCR Negative Negative 12/12/2023 5:13 PM CDT [facility] STAPHYLOCOCCUS AUREUS PCR Positive(A) Negative 12/12/2023 5:13 PM CDT [facility] Other SPECIMEN FROM INTERNAL NOSE / Unknown Non-Blood / Unknown 12/12/2023 2:14 PM CDT 12/12/2023 3:37 PM CDT Narrative [facility] - 12/12/2023 5:13 PM CDT S. aureus detected; NOT MRSA. Test result does not preclude MRSA nasal colonization. False negative for MRSA could be obtained if MRSA present in the sample is below threshold of detection. Radha Valdez NP MICROBIOLOGY [facility] [address] [place] [id number], * XR FOOT 3 VIEWS RIGHT PORTABLE (12/12/2023 2:11 PM CDT) Anatomical Region Laterality Modality FEET, FOOT R Digital Radiogra phy 12/13/2023 12:4 5 AM CDT Narrative 12/13/2023 12:45 AM CDT For Patients: ??As a result of the Century Cures Act, medical imaging exams and procedure reports are released immediately into your electronic medical record. ??You may view this report before your referring provider. ??If you have questions, please contact your health care provider. INDICATION: Pain. TECHNIQUE: Right foot 3 views. COMPARISON: None. FINDINGS/IMPRESSION: Amputation of the 1st through 4th digits at the level of the MTP joints and amputation of the 5th digit at the level of the metatarsal shaft. No acute fracture or dislocation. No cortical erosions to suggest radiographic evidence of osteomyelitis. Mild midfoot and hindfoot arthrosis. Plantar calcaneal spur. Posterior calcaneal enthesophyte. Mild soft tissue swelling. Dictated by Rosendo Cristina MD @ Dec 13 2023 12:45AM (Electronically Signed) [email or web address] Procedure Note Rosendo Cristina MD - 12/13/2023 For Patients: As a result of the Cures Act, medical imagingexams and procedure reports are released immediately into your electronicmedical record. You may view this report before your referring provider.If you have questions, please contact your health care provider. INDICATION: Pain. TECHNIQUE: Right foot 3 views. COMPARISON: None. FINDINGS/IMPRESSION: Amputation of the 1st through 4th digits at the level of the MTP jointsand amputation of the 5th digit at the level of the metatarsal shaft. Noacute fracture or dislocation. No cortical erosions to suggestradiographic evidence of osteomyelitis. Mild midfoot and hindfootarthrosis. Plantar calcaneal spur. Posterior calcaneal enthesophyte. Mildsoft tissue swelling. Dictated by Rosendo Cristina MD @ Dec 13 2023 12:45AM (Electronically Signed) [email or web address] Rizwan Moy NP GENERAL IMAGING * AMMONIA (12/12/2023 10:08 AM CDT) AMMONIA 26 16 - 60 umol/L 12/12/2023 10:39 AM CDT [facility] Blood BLOOD SPECIMEN / Unknown Butterfly / Unknown 12/12/2023 10:08 AM CDT 12/12/2023 10:15 AM CDT Narrative [facility] - 12/12/2023 10:39 AM CDT 1. ??Sulfasalazine and its metabolite Sulfapyridine at therapeutic concentrations may lead to falsely low results. 2. ??Temozolomide and its metabolite MTIC may lead to falsely elevated results, and its metabolite AIC may lead to falsely low results. Radha Valdez NP CHEMISTRY [facility] [address] [place] [address], [place] * SCAN-CARDIAC STRIP (12/12/2023 10:00 AM CDT) Scanner OTHER * EKG 12 LEAD (12/12/2023 9:33 AM CDT) Only the most recent of2 resultswithin the time period is included. Interpretation Normal sinus rhythm Left bundle branch block Abnormal ECG When compared with ECG of 12-Dec-2023 03:43, No significant change was found BEYOND NOW Ventricular Rate 63 BPM BEYOND NOW Atrial Rate 63 BPM BEYOND NOW P-R Interval 184 ms BEYOND NOW QRS Duration 150 ms BEYOND NOW QT 472 ms BEYOND NOW QTc 483 ms BEYOND NOW P [place] 57 degrees BEYOND NOW R [place] -8 degrees BEYOND NOW T [place] 176 degrees BEYOND NOW 12/12/2023 9:33 AM CDT 12/12/2023 5:24 PM CDT Narrative [facility] - 12/12/2023 5:24 PM CDT Test Indication: ahsan Nusrat Harry MD EKG ORD BEYOND NOW [place], [place] * CT ANGIO HEAD (12/12/2023 6:31 AM CDT) Anatomical Region Laterality Modality HEAD, BRAIN Computed Tomogra phy 12/12/2023 6:46 AM CDT Impressions 12/12/2023 5:36 PM CDT Unremarkable head CTA. Please refer to noncontrast head CT report for description of right medial frontal lobe mass. Please note that all CT scans at this facility use dose modulation, iterative reconstruction, and/or weight-based dosing when appropriate to reduce radiation dose to as low as reasonably achievable. Dictated by Larry Polo MD @ 12/12/2023 5:36:53 PM (Electronically Signed) Narrative 12/12/2023 5:36 PM CDT For Patients: ??As a result of the Century Cures Act, medical imaging exams and procedure reports are released immediately into your electronic medical record. ??You may view this report before your referring provider. ??If you have questions, please contact your health care provider. INDICATION: Acute stroke. TECHNIQUE: CTA head with contrast bolus tracking, 3D angiographic rendering using maximum intensity projection (MIP) and images permanently archived. FINDINGS: There is normal opacification of the intracranial vasculature. There is no large vessel occlusion or significant intracranial stenosis. No aneurysm or evidence for vascular malformation is identified. A right medial frontal lobe mass is well described on the noncontrast head CT report. Procedure Note Larry Polo MD - 12/12/2023 For Patients: As a result of the Cures Act, medical imagingexams and procedure reports are released immediately into your electronicmedical record. You may view this report before your referring provider.If you have questions, please contact your health care provider. INDICATION: Acute stroke. TECHNIQUE: CTA head with contrast bolus tracking, 3D angiographic rendering usingmaximum intensity projection (MIP) and images permanently archived. FINDINGS: There is normal opacification of the intracranial vasculature. There is no large vessel occlusion or significant intracranial stenosis. No aneurysm or evidence for vascular malformation is identified. A right medial frontal lobe mass is well described on the noncontrast headCT report. IMPRESSION: Unremarkable head CTA. Please refer to noncontrast head CT report fordescription of right medial frontal lobe mass. Please note that all CT scans at this facility use dose modulation,iterative reconstruction, and/or weight-based dosing when appropriate toreduce radiation dose to as low as reasonably achievable. Dictated by Larry Polo MD @ 12/12/2023 5:36:53 PM (Electronically Signed) Karishma Lopez MD CT * CT Head WO Contrast - [address] (12/12/2023 6:30 AM CDT) Anatomical Region Laterality Modality HEAD, BRAIN Computed Tomogra phy 12/12/2023 6:42 AM CDT Narrative 12/12/2023 6:42 AM CDT For Patients: ??As a result of the Cures Act, medical imaging exams and procedure reports are released immediately into your electronic medical record. ??You may view this report before your referring provider. ??If you have questions, please contact your health care provider. Indication: Stroke, follow-up. Technique: Noncontrast CT of head was performed. Comparison: Head CT 12/12/2023, CTA head same day, CT 06/13/2022. Findings: Again seen is a 1.8 x 2.0 cm hyperdense lesion within the right medial frontal lobe with surrounding vasogenic edema. On subsequent CTA head there may be a small amount of enhancement along the posterior aspect of the lesion (46 Hounsfield units on noncontrast CT and 61 Hounsfield units on CTA). No significant mass effect. No midline shift. No new loss of light-white matter differentiation. No additional intraparenchymal hemorrhage is identified. No extra-axial hemorrhage is seen. Ventricles are unchanged in size and configuration. No calvarial fracture is identified. Paranasal sinuses and mastoid air cells are clear. Impression: Similar size and appearance of the right medial frontal lobe hyperdense focus with surrounding vasogenic edema. There may be a small amount of enhancement posteriorly on subsequently performed CTA images. MRI with and without contrast is recommended to evaluate for underlying mass. Please note that all CT scans at this facility use dose modulation, iterative reconstruction, and/or weight-based dosing when appropriate to reduce radiation dose to as low as reasonably achievable. Dictated by Damari Means MD @ 12/12/2023 6:42:39 AM (Electronically Signed) Procedure Note Damari Means, - 12/12/2023 For Patients: As a result of the Cures Act, medical imagingexams and procedure reports are released immediately into your electronicmedical record. You may view this report before your referring provider.If you have questions, please contact your health care provider. Indication: Stroke, follow-up. Technique: Noncontrast CT of head was performed. Comparison: Head CT 12/12/2023, CTA head same day, CT 06/13/2022. Findings: Again seen is a 1.8 x 2.0 cm hyperdense lesion within the right medialfrontal lobe with surrounding vasogenic edema. On subsequent CTA headthere may be a small amount of enhancement along the posterior aspect ofthe lesion (46 Hounsfield units on noncontrast CT and 61 Hounsfield unitson CTA). No significant mass effect. No midline shift. No new loss of light-white matter differentiation. No additionalintraparenchymal hemorrhage is identified. No extra-axial hemorrhage isseen. Ventricles are unchanged in size and configuration. No calvarial fracture is identified. Paranasal sinuses and mastoid aircells are clear. Impression: Similar size and appearance of the right medial frontal lobe hyperdensefocus with surrounding vasogenic edema. There may be a small amount ofenhancement posteriorly on subsequently performed CTA images. MRI with andwithout contrast is recommended to evaluate for underlying mass. Please note that all CT scans at this facility use dose modulation,iterative reconstruction, and/or weight-based dosing when appropriate toreduce radiation dose to as low as reasonably achievable. Dictated by Damari Means MD @ 12/12/2023 6:42:39 AM (Electronically Signed) Karishma Lopez MD CT * (ABNORMAL) CBC WITH AUTO DIFFERENTIAL (12/12/2023 5:17 AM CDT) WHITE BLOOD COUNT 13.2(H) 4.5 - 11.0 thou/cu mm 12/12/2023 6:[address] [facility] RED BLOOD COUNT 5.30(H) 4.00 - 5.20 mil/cu mm 12/12/2023 6:[address] [facility] HEMOGLOBIN 15.2 12.0 - 16.0 g/dL 12/12/2023 6:[address] [facility] HEMATOCRIT 46.0 33.0 - 51.0 % 12/12/2023 6:[address] [facility] MCV 87 80 - 100 fL 12/12/2023 6:[address] [facility] MCH 28.7 26.0 - 34.0 pg 12/12/2023 6:[address] [facility] LABORATORY MCHC 33.0 32.0 - 36.0 g/dL 12/12/2023 6:[address] [facility] TRAL LABORATORY RDW 14.0 11.5 - 15.5 % 12/12/2023 6:12 AM [facility] PLATELET COUNT 224 140 - 440 thou/cu mm 12/12/2023 6:12 AM [facility] MPV 9.9 6.5 - 11.0 fL 12/12/2023 6:12 AM [facility] NRBC 0.0 % 12/12/2023 6:12 AM [facility] ABS NRBC 0.0 thou /cu mm 12/12/2023 6:12 AM [facility] % NEUT 81.2 % 12/12/2023 6:12 AM [facility] % LYMPH 12.0 % 12/12/2023 6:12 AM [facility] % MONO 5.7 % 12/12/2023 6:12 AM [facility] % EOS 0.1 % 12/12/2023 6:12 AM [facility] % BASO 0.6 % 12/12/2023 6:12 AM [facility] % IMMATURE GRAN (METAS,MYELOS,DC OS) 0.4 % 12/12/2023 6:12 AM [facility] ABSOLUTE NEUTROPHILS 10.7(H) 1.7 - 7.0 thou/cu mm 12/12/2023 6:12 AM [facility] ABSOLUTE LYMPHOCYTES 1.6 0.9 - 2.9 thou/cu mm 12/12/2023 6:12 AM [facility] ABSOLUTE MONOCYTES 0.8 <0.9 thou/cu mm 12/12/2023 6:12 AM [facility] ABSOLUTE EOSINOPHILS 0.0 <0.5 thou/cu mm 12/12/2023 6:12 AM [facility] ABSOLUTE BASOPHILS 0.1 <0.3 thou/cu mm 12/12/2023 6:12 AM [facility] ABSOLUTE IMMATURE GRANULOCYTES(MET ,MYELOS,PROS) 0.1 <0.3 thou/cu mm 12/12/2023 6:12 AM CDT [facility] Blood BLOOD SPECIMEN / Unknown Venipuncture / Unknown 12/12/2023 5:17 AM CDT 12/12/2023 5:42 AM CDT Karishma Lopez MD HEMATOLOGY [facility] [address] [place] [address], [place] * Hemoglobin A1C (12/12/2023 5:17 AM CDT) Pathologist [facility] HEMOGLOBIN A1C MONITORING (POCT) 6.1 <=6.4 % 12/12/2023 5:47 PM CDT [facility] Blood BLOOD SPECIMEN / Unknown Venipuncture / Unknown 12/12/2023 5:17 AM CDT 12/12/2023 5:42 AM CDT Narrative [facility] - 12/12/2023 5:47 PM CDT ? (<=6.9%) ? Indicates good control ? (7.0% to 7.9%) ? Indicates fair control ? (>=8.0%) ? Indicates poor control ?? NOTE: ??These thresholds are guidelines and ?individual targets may vary. Falsely low levels may be seen with: Recent Transfusion, Recent Significant Blood Loss, Hemolytic Diseases, or Falsely elevated levels may be seen with: Untreated Anemias, Splenectomy ? Karishma Lopez MD CHEMISTRY Performing Organization Address City/[facility]/ZIP Co de Phone Number [facility] [address] [place] [address], [place] * (ABNORMAL) Basic Metabolic Panel (12/12/2023 5:17 AM CDT) Pathologist [facility] SODIUM 142 136 - 145 mmol/L 12/12/2023 6:[address] [facility] POTASSIUM 3.7 3.5 - 5.1 mmol/L 12/12/2023 6:[address] [facility] CHLORIDE 107 98 - 107 mmol/L 12/12/2023 6:[address] [facility] CO2,TOTAL 23 22 - 29 mmol/L 12/12/2023 6:[address] [facility] ANION GAP 12 5 - 18 12/12/2023 6:[address] [facility] GLUCOSE 125(H) 70 - 99 mg/dL 12/12/2023 6:[address] [facility] CALCIUM 8.9 8.8 - 10.2 mg/dL 12/12/2023 6:16 AM [facility] BUN 24(H) 8 - 23 mg/dL 12/12/2023 6:16 AM [facility] CREATININE 1.03(H) 0.50 - 0.90 mg/dL 12/12/2023 6:16 AM T [facility] BUN/CREAT RATIO 23(H) 10 - 20 6:16 AM [facility] eGFR 62(L) >90 mL/min/1.7 3m2 12/12/2023 6:16 AM [facility] Comment:As of 2021, eG FR is calculated by the CKD-EPI creatinine equation without race adjustment. ??eGFR can be influenced by muscle mass, exercise, and diet. ??The reported eGFR is an estimation only and is only applicable if the renal function is stable. Blood BLOOD SPECIMEN / Unknown Venipuncture / Unknown 12/12/2023 5:17 AM CDT 12/12/2023 5:42 AM CDT Karishma Lopez MD CHEMISTRY [facility] [address] [place], [place] [address] * (ABNORMAL) DRUG SCREEN RAPID URINE INHOUSE (12/12/2023 5:16 AM CDT) [facility] THC METABOLITES,YOLA L Non-negative , consider further testing if indicated(A) Not Detected 12/12/2023 5:53 AM CDT [facility] PCP,QUAL Not Detected Not Detected 12/12/2023 5:53 AM CDT [facility] COCAINE,QUAL Not Detected Not Detected 12/12/2023 5:53 AM CDT [facility] METHAMPHETAMINE , QUALITATIVE Non-negative , consider further testing if indicated(A) Not Detected 12/12/2023 5:53 AM CDT [facility] OPIATES,QUAL Not Detected Not Detected 12/12/2023 5:53 AM CDT [facility] AMPHETAMINE, QUALITATIVE Not Detected Not Detected 12/12/2023 5:53 AM CDT [facility] BENZODIAZEPINES ,QUAL Non-negative , consider further testing if indicated(A) Not Detected 12/12/2023 5:53 AM CDT [facility] TRICYCLICS,QUAL Not Detected Not Detected 12/12/2023 5:53 AM CDT [facility] METHADONE, QUALITATIVE Not Detected Not Detected 12/12/2023 5:53 AM CDT [facility] BARBITURATES,QU AL Not Detected Not Detected 12/12/2023 5:53 AM CDT [facility] OXYCODONE, QUALITATIVE Not Detected Not Detected 12/12/2023 5:53 AM CDT [facility] BUPRENORPHINE, QUALITATIVE Non-negative , consider further testing if indicated(A) Not Detected 12/12/2023 5:53 AM CDT [facility] Urine URINE SPECIMEN / Unknown Non-Blood / Unknown 12/12/2023 5:16 AM CDT 12/12/2023 5:[address] [facility] LABORATORY - 12/12/2023 5:53 AM CDT Please Note: ?? This is a screening test only, all results are unconfirmed and should be used for medical purposes only. ??Unconfirmed results must not be used for non-medical purposes (e.g., employment testing, legal testing). ??Suggest analyte specific confirmation for all non-negative results. ??Specimens will be held for 24 hours if additional testing is needed. ?? The following threshold concentrations are used for this analysis: ? Drug ? Screening Threshold ? Buprenorphine ? 10 ng/mL PCP ? 25 ng/mL ?? THC Metabolites ? 50 ng/mL *Opiates ? 100 ng/mL Oxycodone ?100 ng/mL Cocaine ?150 ng/mL Benzodiazepines ?150 ng/mL ?? Methadone ?200 ng/mL ?? Barbiturates ? 200 ng/mL Tricyclic Antidepressants ?300 ng/mL ?? Amphetamines ? 500 ng/mL ?? Methamphetamines ? 500 ng/mL ?*Includes related compounds: ? Codeine ?50 ng/mL ? Heroin ?100 ng/mL ? Morphine ?100 ng/mL ? Hydrocodone ? 400 ng/mL ? Hydromorphone ? 800 ng/mL ?Venlafaxine (Effexor) is a known cross reactant in the PCP ?assay. ??If clinically indicated, order PCP confirmation. Karishma Lopez MD URINE [facility] [address] [place] [address], * XR MAMMO BILAT SCREEN FFDM (03/07/2011 4:12 PM [facility]) Anatomical Region Laterality Modality BREASTS, Breast Left, Breast Right Bilateral Mammography Impressions 03/08/2011 12:05 PM [facility] ??There is no radiographic evidence for malignancy. ??Recommend annual mammograms. A lay language report of this examination will be provided to the patient. MAMMOGRAM ASSESSMENT: ??ACR 2 Benign Narrative 03/08/2011 12:05 PM [facility] XR MAMMO BILAT SCREEN FFDM [G0202.0] CLINICAL HISTORY: ??This is an asymptomatic 50 y.o. patient. INDICATION FOR EXAM: Mammogram Screening. TECHNIQUE: CC & MLO views were obtained. ??This digital study was evaluated with the assistance of Computer-Aided Detection. ?? COMPARISON FILMS: Yes 08/19/01 [facility] FINDINGS: ??Mammographically, the breast tissue has scattered [...] of Computer-Aided Detection. COMPARISON FILMS: Yes 08/19/01 [facility] FINDINGS: Mammographically, the breast tissue has scatteredfibroglandular [...] * (ABNORMAL) LIPID PANEL (03/07/2011 7:40 AM [facility]) CHOLESTEROL,TOTAL 271(H) 110 - 199 mg/dL [facility] TRIGLYCERIDES 498(H) <150 mg/dL [facility] HDL CHOLESTEROL 37(L) >40 mg/dL [facility] CHOL/HDL RATIO 7.32(H) <4.51 [facility] LDL CHOLESTEROL Invalid LDL when Trig >400. [facility] PATIENT STATUS Fasting [facility] Blood specimen (specimen) BLOOD SPECIMEN / Unknown 03/07/2011 7:40 AM [facility] 03/07/2011 7:30 AM [facility] Cooper Maria MD CHEMISTRY [facility] [address] [place] [address] * pap screening (01/30/2008 4:13 PM [facility]) CYTOLOGY ??CYTOPATHOLOGY REPORT ??[facility] ?? Status: Final Report ? [id number] ?? CLINICAL INFORMATION ?Date of Last LMP ?: 01/14/08 ?Last Pap Date ? : 5 years ago ?Last Pap Result ? : NIL ?ABN Kenedy/Bx Past 5 YRS: None ?Hormone Usage ? : BCP/OCP/Patch/Ring ?Menstrual Status ?: Irregular Periods ?Kenedy/Bx done today ?: No ?Additional Data ? [...] 01/30/08 ?? ACCESSIONED: 01/30/08 ?? SIGNED: 02/08/08 [facility] PAP [place] CODE NIL [facility] Cervical (Cervical) 01/30/2008 4:13 PM [facility] 01/30/2008 4:09 PM [facility] Susanna Nanette Camp DO PATHOLOGY/CYTOLOGY [facility] INTERNAL ZIP [address] [place] [address] from Last 3 Months or Most Recently Relevant to Health Maintenance Additional Health Concerns Infection Onset Date Last Indicated Resolved Time MRSA Clearance Comment:Infection Control Note: Hx of MRSA, surveillance criteria met, no need for further testing or isolation precautions. Do not delete or resolve the infection flag. 11/26/13 toe 12/28/2021 12/28/2021 Advance Directives * Full Code (Latest Code Status on File) Date Activated Date Inactivated Comments 12/12/2023 3:30 AM Question Answer Comments Code Status Discussion: Reviewed Preferences * Full Code Date Activated Date Inactivated Comments 06/13/2022 7:10 [...] Comments 11/26/2013 5:33 PM 11/28/2013 4:17 PM Care Teams Terrazzo Polisher Helper Relationship Specialty [place] [address] [place] [address] PCP - General Family Practice 01/02/22
--- OUTSIDE RECORDS SUMMARY | 2023-12-15 01:45 | XMS_ITS | Encounter Summary ---
Author Organization [facility] Address [address] [place] [address] Care Team Providers Care Aeronautical Engineering Professor Name Role Phone Pramod Sweet MD Primary Care Provider + DoctorHawa MD Primary Care Provider Unavailabl e Madhuri Whitman INSOLE STIFFENER ENERGY AUDIT ADVISOR Primary Care Prov ider Kaylen Aiken RN Unavailable [phone] Edu Crawford DPM Unavailable [phone] Madhuri Whitman INSOLE STIFFENER ENERGY AUDIT ADVISOR Unavailable + Madhuri Whitman INSOLE STIFFENER ENERGY AUDIT ADVISOR Unavailable + Rosey Alexander HOUSEKEEPING WORKER Unavailable [phone] Rosey Alexander HOUSEKEEPING WORKER Unavailable [phone] Craig Montenegro PA-C Unavailable [phone] Altagracia Alexander DPM, Podiatry /Foot and Ankle Surgery Unavailable Enrico Felton DO Unavailable [phone] Enrico Felton DO Primary Care Provider [phone] Cy Leonardo Unavailable Unavailable Enrico Felton DO Unavailable [phone] Rebecca Palumbo MD Unavailable [phone] Anders Ramachandran Unavailable Unavailable Magdalena Brice Unavailable Unavailable JesusMaddie bryant Unavailable Unavailable No Ref-Primary, Physician Primary Care Provider Enrico Felton DO Primary Care Provider [phone] Aydee Mcgill RN Unavailable [phone] Wendy Agustin APRN ENERGY AUDIT ADVISOR Unavailable [phone] Encounter Details Date Type Department Care Team (Late st Contact Info) Description 09/13/2011 Office Visit-[facility] [place] [address] [facility] [address] [place] [phone] Kuldeep Herndon MD [address] [facility] [address] [place] [address] Social History [...] mg Tablet, 2 p.o. twice daily 5. Krypton 3-6-9 1,200 mg Capsule, 1 p.o. daily [...] LVEF not documented FAMILY HISTORY: Father - [place]; Brother 1 - CVA, unknown type; Uncle(P) [...] - not working; Residence - lives in [place] year round; REVIEW OF SYSTEMS GENERAL feels [...] Tablet, 2 p.o. twice daily, #0 (Zero) Krypton 3-6-9 1,200 mg Capsule, 1 p.o. daily, [...] CDT Appointment [facility] [address] [place] [phone] Kingsley Westbrook, DPBharath [address] [place] [address] documented as of this encounter Visit Diagnoses Not on filedocumented in this encounter Additional Health Concerns Infection Onset Date Last Indicated Resolved Time 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 per 09/01/16 energy efficiency finance manager note; left foot tissue 10/08/16 09/01/2016 09/01/2016 10/11/2018 7:49 AM C DT MRSA Comment:MRSA at outside facility per 09/01/16 energy efficiency finance manager note; left foot tissue 10/08/16 10/11/2018 02/27/2019 documented as of this encounter Care Teams Aeronautical Engineering Professor Relationship Specialty Start Date End Date Pramod Sweet MD PCP - General Family Practice 07/11/11 05/28/14 Hawa Wasserman MD PCP - General 06/29/15 09/03/16 Madhuri Whitman APRN ENERGY AUDIT ADVISOR PCP - General Nurse Practitioner - Family 09/04/16 08/23/20 Madhuri Whitman APRN ENERGY AUDIT ADVISOR [address] [address] [place] [address] PCP - Assigned PCP 09/03/16 05/21/18 [place] [address] [place] [address] PCP - General Family Medicine 08/24/20 01/23/22 No Ref-Primary, Physician PCP - General 02/20/22 06/29/22 [place] [address] [place] [address] PCP - General Family Medicine 06/30/22 Kaylen Aiken, ROQUE Clinic Chemistry Research Assistant 10/18/16 Edu Crawford D[place] [address] [facility] [address] [place] [address] Podiatry 10/18/16 Madhuri Whitman APRN ENERGY AUDIT ADVISOR [address] [address] [place] [address] Assigned PCP 09/03/16 09/27/19 Rosey Alexander LSW Clinic Chemistry Research Assistant Primary Care - 09/27/18 9 Rosey Alexander, HOUSEKEEPING WORKER Lead Chemistry Research Assistant Primary Care - CC 11/08/18 05/07/19 Craig Montenegro PA-C [address] [place] [address] Assigned PCP 09/28/19 01/31/20 Altagracia Alexander DPM, Podiatry/Foot and Ankle Surgery [address] [place] [address] Assigned Musculoskeletal Provider 01/09/20 10/30/20 [place] [address] [place] [address] Assigned PCP 02/01/20 08/28/20 Cy Leonardo Personal Advocate & Liaison (PAL) 08/26/20 10/13/20 [place] [address] [place] [address] Assigned PCP 08/29/20 10/08/23 Rebecca Palumbo MD [address] [place] [id number] Assigned Neuroscience Provider 10/01/20 10/14/21 Anders Ramachandran Personal Advocate & Liaison (PAL) 10/14/20 07/07/21 Magdalena Brice Personal Advocate & Liaison (PAL) 11/14/21 12/27/21 Maddie Mae Personal Advocate & Liaison (PAL) Family Medicine 12/28/21 Aydee Mcgill RN RN Clinical Product Navigator Primary Care - CC 06/30/22 06/30/22 Wendy Agustin APRN ENERGY AUDIT ADVISOR [address] [facility] [address] [place] [address] Assigned PCP 10/09/[address] [facility] 10/18/16 06/24/17 [facility] [employer] 07/27/17 08/14/17 documented as of this encounter
--- OUTSIDE RECORDS SUMMARY | 2023-12-15 01:45 | XMS_ITS | Encounter Summary ---
Author Organization [facility] Address [address] [place] [address] Care Team Providers Care Certified Flight Instructor Name Role Phone Madhuri Whitman SIDEHAND CHANNEL LIP WETTER Primary Care Prov ider Kaylen Aiken RN Unavailable [phone] Edu CrawfordM Unavailable [phone] Madhuri Whitman APRN CHANNEL LIP WETTER Unavailable + Madhuri Whitman APRN CHANNEL LIP WETTER Unavailable + Rosey Alexander METAL MILLING MACHINE OPERATOR Unavailable Rosey Alexander METAL MILLING MACHINE OPERATOR Unavailable [phone] Craig Montenegro PA-C Unavailable [phone] Altagracia Alexander DPM, Podiatry /Foot and Ankle Surgery Unavailable Enrico Felton DO Unavailable Enrico Felton DO Primary Care Provider [phone] Cy Leonardo Unavailable Unavailable Enrico Felton DO Unavailable [phone] Rebecca Palumbo MD Unavailable [phone] Anders Ramachandran Unavailable Unavailable Magdalena Brice Unavailable Unavailable Maddie Mae Unavailable Unavailable No Ref-Primary, Physician Primary Care Provider Enrico Felton DO Primary Care Provider Aydee Mcgill RN Unavailable [phone] Wendy Agustin APRN CHANNEL LIP WETTER Unavailable [phone] Encounter Details Date Type Department Care Team (Late st Contact Info) Description 09/21/2016 My[facility] Medical Advice [address], [address] [place] [address] Malou Vallejo Social History Tobacco [...] CDT Appointment [facility] [address] [place] [address] Kingsley Westbrook, GAYLA [address] [place] [address] documented as of this encounter Visit Diagnoses Not on filedocumented in this encounter Additional Health Concerns Infection Onset Date Last Indicated Resolved Time 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 per 09/01/16 ash kier boiler note; left foot tissue 10/08/16 09/01/2016 09/01/2016 10/11/2018 7:49 AM C DT MRSA Comment:MRSA at outside facility per 09/01/16 ash kier boiler note; left foot tissue 10/08/16 10/11/2018 02/27/2019 documented as of this encounter Care Teams Certified Flight Instructor Relationship Specialty Start Date End Date Madhuri Whitman APRN CHANNEL LIP WETTER PCP - General Nurse Practitioner - Family 09/04/16 08/23/20 Madhuri Whitman APRN CHANNEL LIP WETTER [address] [place] [address] PCP - Assigned PCP 09/03/16 05/21/18 [place] [address] [place] [address] PCP - General Family Medicine 08/24/20 01/23/22 No Ref-Primary, Physician PCP - General 02/20/22 06/29/22 [place] [address] [place] [address] PCP - General Family Medicine 06/30/22 Kaylen Aiken, ROQUE Clinic Social Media Project Manager 10/18/16 [place] [address] [facility] [address] [place], [place] [address] Podiatry 10/18/16 Madhuri Whitman APRN CHANNEL LIP WETTER [address] [address] Assigned PCP 09/03/16 09/27/19 Rosey Alexander LSW Clinic Social Media Project Manager Primary Care - CC 09/27/18 9 Rosey Alexander LSW Lead Social Media Project Manager Primary Care - CC 11/08/18 05/07/19 Craig Montenegro PA-C [address] [address] Assigned PCP 09/28/19 01/31/20 Altagracia Alexander, DPM, Podiatry/Foot and Ankle Surgery [address] [place] [address] [place] [address] Assigned Musculoskeletal Provider 01/09/20 10/30/20 [place] [address] [place] [address] Assigned PCP 02/01/20 08/28/20 Cy Leonardo Personal Advocate & Liaison (PAL) 08/26/20 10/13/20 [place] [address] [place] [address] Assigned PCP 08/29/20 10/08/23 Rebecca Palumbo MD [address] [place] [address] [address] [place], [place] [id number] Assigned Neuroscience Provider 10/01/20 10/14/21 Anders Ramachandran Personal Advocate & Liaison (PAL) 10/14/20 07/07/21 Magdalena Brice Personal Advocate & Liaison (PAL) 11/14/21 12/27/21 Maddie Mae Personal Advocate & Liaison (PAL) Family Medicine 12/28/21 Aydee Mcgill, RN RN Clinical Product Navigator Primary Care - CC 06/30/22 06/30/22 Wendy Agustin APRN CHANNEL LIP WETTER [address] [facility] [address] [place] [address] Assigned PCP 10/09/23 [place] [phone] (Work) Home Care Company 10/18/16 06/24/17 [facility] 07/27/17 08/14/17 documented as of this encounter
--- OUTSIDE RECORDS SUMMARY | 2023-12-15 01:45 | XMS_ITS | Encounter Summary ---
Author Organization [place] Address [address] [place] [address] Care Team Providers Care Catalytic Converter Operator Name Role Phone Madhuri Whitman RECREATION INSTRUCTOR POCKETBOOK MAKER Primary Care Prov ider Kaylen Aiken RN Unavailable [phone] Edu CrawfordM Unavailable [phone] Madhuri Whitman APRN POCKETBOOK MAKER Unavailable + Madhuri Whitman APRN POCKETBOOK MAKER Unavailable + Rosey Alexandre INTERNAL CONSULTANT Unavailable Rosey Alexander INTERNAL CONSULTANT Unavailable [phone] Craig Montenegro PA-C Unavailable [phone] Altagracia Alexander DPM, Podiatry /Foot and Ankle Surgery Unavailable Enrico Felton DO Unavailable [phone] Enrico Felton DO Primary Care Provider [phone] Cy Leonardo Unavailable Unavailable Enrico Felton DO Unavailable [phone] Rebecca Palumbo MD Unavailable [phone] Anders Ramachandran Unavailable Unavailable Magdalena Brice Unavailable Unavailable Maddie Mae Unavailable Unavailable No Ref-Primary, Physician Primary Care Provider Jose FranciscoEnrico Primary Care Provider Aydee Mcgill RN Unavailable [phone] VamsiWendy WANDY POCKETBOOK MAKER Unavailable [phone] Reason for Visit * Reason Onset Date Comments Medication Refill 01/23/2017 PARoxetine (PA XIL) 20 MG tablet Encounter Details Date Type Department Care Team (Late st Contact Info) Description 01/22/[address], [address] [place] [address] Madhuri Whitman APRN CNP [address] [place] [address] Medication Refill (PARoxetine (PAXIL) 20 [...] to call clinic back. Kayleigh Foster RN TITCHER ZIGZAG * Telephone Encounter - Madhuri Whitman APRN CNP - 01/26/2017 1:26 PM TOPSTITCHER ZIGZAG Please call patient and update her PHQ9. Refilled x 1 month as I have not seen her for this in the past. Will need to either follow up with me in the next month for future refills or she could see ifher pain management provider is willing to prescribe for her. Madhuri Whitman CNP TITCHER ZIGZAG * Telephone Encounter - Kayleigh Foster RN [...] that she see's the pain clinic in [place] every 3 weeks and I asked that she schedule an appointment here when she goes to that appointment and she said there is no way her friend that drives her will sit in another doctors office and wait for her. Patient requesting an rx refill. Kayleigh Foster RN TITCHER ZIGZAG * Telephone Encounter - Gosia John RN - 01/25/2017 2:49 PM TOPSTITCHER ZIGZAG LM on to call back. Gosia Pastrana RN, BSN, N [place] Doshi RN TITCHER ZIGZAG * Telephone Encounter - Madhuri Whitman APRN CNP - 01/25/2017 1:30 PM TOPSTITCHER ZIGZAG I have never seen her for this. Looks like it was last refilled while in patient and she is taking TID not BID?? Please call and verify dose. I will refill x 1 month and she needs to be seen in clinic for further refills. Madhuri Whitman CNP TITCHER ZIGZAG * Telephone Encounter - Kayleigh Foster RN - 01/23/2017 3:22 PM CST PHQ-9 SCORE 11/12/2012 11/28/2012 04/10/2013 Total Score 23 26 12 Routing refill request to provider for review/approval because: PHQ-9 > 4. Kayleigh Foster RN TITCHER ZIGZAG * Telephone Encounter - Laureen Baumann - 01/23/2017 2:07 PM CST PARoxetine (PAXIL) 20 MG tablet (Historical) Sig: Take 20 mg by mouth 3 times daily Last Written Prescription Date: Unknown Last Fill Quantity: Unknown, # refills: Unknown Last Office Visit with [facility], P or [facility] prescribing provider: 09/08/2016 Future Office visit: Paxil was increased in the hospital 10/06/16. Routing refill request to provider for review/approval because: Medication is reported/historical DOMINGO Katz January 23, 2017 2:10 PM TITCHER ZIGZAG documented in this encounter Plan of Treatment Upcoming Encounters Date Type Department Care Team (Late st Contact Info) Description 12/21/2023 2:00 PM CDT Appointment [facility] [place] [address] [place] [phone] Kingsley Westbrook DPM [address] [place] [address] documented as of this encounter Visit Diagnoses Diagnosis Single current episode of major depressive disorder, unspecified depression episode severity documented in this encounter Additional Health Concerns Infection Onset Date Last Indicated Resolved Time 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 per 09/01/16 computer forensics technician note; left foot tissue 10/08/16 09/01/2016 09/01/2016 10/11/2018 7:49 AM C DT MRSA Comment:MRSA at outside facility per 09/01/16 computer forensics technician note; left foot tissue 10/08/16 10/11/2018 02/27/2019 documented as of this encounter Care Teams Catalytic Converter Operator Relationship Specialty Start Date End Date Madhuri Whitman APRN POCKETBOOK MAKER PCP - General Nurse Practitioner - Family 09/04/16 08/23/20 Madhuri Whitman APRN POCKETBOOK MAKER [address] [address] [place] [address] PCP - Assigned PCP 09/03/16 05/21/18 [place] [address] [place] [address] PCP - General Family Medicine 08/24/20 01/23/22 No Ref-Primary, Physician PCP - General 02/20/22 06/29/22 [place] [address] [place] [address] PCP - General Family Medicine 06/30/22 Kaylen Aiken, ROQUE Clinic President Celebrity Acquistion 10/18/16 Edu Crawford DPM [id number] [place] [address] [address] [place] [address] Podiatry 10/18/16 Madhuri Whitman APRN CNP [address] [place] [address] Assigned PCP 09/03/16 09/27/19 Rosey Alexander, [facility] Clinic President Celebrity Acquistion Primary Care - CC 09/27/18 9 Rosey Alexander, [facility] Lead President Celebrity Acquistion Primary Care - CC 11/08/18 05/07/19 Craig Montenegro PA-C [address] [place] [address] Assigned PCP 09/28/19 01/31/20 Altagracia Alexander DPM, Podiatry/Foot and Ankle Surgery [address] [place] [address] Assigned Musculoskeletal Provider 01/09/20 10/30/20 [place] [address] [place] [address] Assigned PCP 02/01/20 08/28/20 Cy Leonardo Personal Advocate & Liaison (PAL) 08/26/20 10/13/20 [place] [address] [place] [address] Assigned PCP 08/29/20 10/08/23 Rebecca Palumbo MD [address] [place] [address] [address] [place], [place] [address] Assigned Neuroscience Provider 10/01/20 10/14/21 Anders Ramachandran Personal Advocate & Liaison (PAL) 10/14/20 07/07/21 Magdalena Brice Personal Advocate & Liaison (PAL) 11/14/21 12/27/21 Maddie Mae Personal Advocate & Liaison (PAL) Family Medicine 12/28/21 Aydee Mcgill RN ROQUE Clinical Product Navigator Primary Care - CC 06/30/22 06/30/22 Wendy Agustin APRN POCKETBOOK MAKER [address] [facility] [address] [place], [place] [address] Assigned PCP 10/09/23 [facility] 10/18/16 06/24/17 [facility] 07/27/17 08/14/17 documented as of this encounter
--- OUTSIDE RECORDS SUMMARY | 2023-12-15 01:45 | XMS_ITS | Encounter Summary ---
Author Organization [place] Address [address] [place] [address] Care Team Providers Care Military Nurse Name Role Phone Dwayne Draper MD Primary Care Provider + DoctorHawa MD Primary Care Provider Unavailabl e Madhuri Whitman TECHNICAL EXPERT PATIENT SERVICES ASSISTANT Primary Care Prov ider Kaylen Aiken RN Unavailable [phone] Edu Crawford DPM Unavailable [phone] Madhuri Whitman TECHNICAL EXPERT PATIENT SERVICES ASSISTANT Unavailable + Madhuri Whitman TECHNICAL EXPERT PATIENT SERVICES ASSISTANT Unavailable + Rosey Alexander BOMB SQUAD COMMANDER Unavailable [phone] Rosey Alexander BOMB SQUAD COMMANDER Unavailable [phone] Craig Montenegro PA-C Unavailable +[phone] Altagracia Alexander DPM, Podiatry /Foot and Ankle Surgery Unavailable Enrico Felton DO Unavailable [phone] Enrico Felton DO Primary Care Provider [phone] Cy Leonardo Unavailable Unavailable Enrico Felton DO Unavailable [phone] Rebecca Palumbo MD Unavailable [phone] Anders Ramachandran Unavailable Unavailable Magdalena Brice Unavailable Unavailable Maddie Mae Unavailable Unavailable No Ref-Primary, Physician Primary Care Provider Enrico Fleton DO Primary Care Provider [phone] Aydee Mcgill RN Unavailable [phone] Wendy Agustin TECHNICAL EXPERT PATIENT SERVICES ASSISTANT Unavailable [phone] Encounter Details Date Type Department Care Team (Late st Contact Info) Description 06/17/2012 MyC Medical Advice [address], [address] [place] [address] [facility] Social History Tobacco Use Types Packs/Day [...] Info) Description 12/21/2023 2:00 PM CDT Appointment [facility] Wound [address] [place] [address] Kingsley Westbrook DPM [address] [place] [address] documented as of this encounter Visit Diagnoses Not on filedocumented in this encounter Additional Health Concerns Infection Onset Date Last Indicated Resolved Time 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 per 09/01/16 lead sprinkler note; left foot tissue 10/08/16 09/01/2016 09/01/2016 10/11/2018 7:49 AM C DT MRSA Comment:MRSA at outside facility per 09/01/16 lead sprinkler note; left foot tissue 10/08/16 10/11/2018 02/27/2019 documented as of this encounter Care Teams Military Nurse Relationship Specialty Start Date End Date Dwayne Draper MD PCP - General Family Practice 4/24/12 3/12/15 Hawa Wasserman, PCP - General 06/29/15 09/03/16 Madhuri Whitman APRN PATIENT SERVICES ASSISTANT PCP - General Nurse Practitioner - Family 09/04/16 08/23/20 Madhuri Whitman APRN PATIENT SERVICES ASSISTANT [address] [place] [address] PCP - Assigned PCP 09/03/16 05/21/18 [place] [address] [place] [address] PCP - General Family Medicine 08/24/20 01/23/22 No Ref-Primary, Physician PCP - General 02/20/22 06/29/22 [place] [address] [place] [address] PCP - General Family Medicine 06/30/22 Kaylen Aiken, [facility] Clinic Pulley Worker 10/18/16 Edu Crawford DPM [address] [facility] [address] [place] [address] Podiatry 10/18/16 Madhuri Whitman APRN PATIENT SERVICES ASSISTANT [address] [address] Assigned PCP 09/03/16 09/27/19 Rosey Alexander LSW Clinic Pulley Worker Primary Care - CC 09/27/18 9 Rosey Alexander, BOMB SQUAD COMMANDER Lead Pulley Worker Primary Care - CC 11/08/18 05/07/19 Craig Montenegro PA-C [address] [place] [address] Assigned PCP 09/28/19 01/31/20 Altagracia Alexander DPM, Podiatry/Foot and Ankle Surgery [address] [place] [address] Assigned Musculoskeletal Provider 01/09/20 10/30/20 [place] [address] [place] [address] Assigned PCP 02/01/20 08/28/20 Cy Leonardo Personal Advocate & Liaison (PAL) 08/26/20 10/13/20 [place] [address] [place] [address] Assigned PCP 08/29/20 10/08/23 Rebecca Palumbo MD [address] [place] [address] [id number] Assigned Neuroscience Provider 10/01/20 10/14/21 Anders Ramachandran Personal Advocate & Liaison (PAL) 10/14/20 07/07/21 Magdalena Brice Personal Advocate & Liaison (PAL) 11/14/21 12/27/21 Maddie Mae Personal Advocate & Liaison (PAL) Family Medicine 12/28/21 Aydee Mcgill, RN RN Clinical Product Navigator Primary Care - CC 06/30/22 06/30/22 Wendy Agustin APRN PATIENT SERVICES ASSISTANT [address] [facility] [address] [place] [address] Assigned PCP 10/09/23 [facility] [id number] 10/18/16 06/24/17 [facility] [id number] 07/27/17 08/14/17 documented as of this encounter
--- OUTSIDE RECORDS SUMMARY | 2023-12-15 01:45 | XMS_ITS | Encounter Summary ---
Author Organization [place] Address [address] [place] [address] Care Team Providers Care Dairy Hand Name Role Phone Dwayne Draper MD Primary Care Provider + DoctorHawa MD Primary Care Provider Unavailabl e Madhuri Whitman GUM ROLLING MACHINE TENDER BUILDING ANALYST/SUPERVISOR Primary Care Prov ider Kaylen Aiken RN Unavailable [phone] Edu Crawford DPM Unavailable [phone] Madhuri Whitman GUM ROLLING MACHINE TENDER BUILDING ANALYST/SUPERVISOR Unavailable + Madhuri Whitman GUM ROLLING MACHINE TENDER BUILDING ANALYST/SUPERVISOR Unavailable + Rosey Alexander GLOST KILN OPERATOR Unavailable [phone] Rosey Alexander GLOST KILN OPERATOR Unavailable [phone] Craig Montenegro PA-C Unavailable +[phone] Altagracia Alexander DPM, Podiatry /Foot and Ankle Surgery Unavailable Enrico Felton DO Unavailable [phone] Enrico Felton DO Primary Care Provider [phone] Cy Leonardo Unavailable Unavailable Enrico Felton DO Unavailable [phone] Rebecca Palumbo MD Unavailable [phone] Anders Ramachandran Unavailable Unavailable Magdalena Brice Unavailable Unavailable Maddie Mae Unavailable Unavailable No Ref-Primary, Physician Primary Care Provider Enrico Felton DO Primary Care Provider [phone] Aydee Mcgill RN Unavailable [phone] Wendy Agustin GUM ROLLING MACHINE TENDER BUILDING ANALYST/SUPERVISOR Unavailable [phone] Encounter Details Date Type Department Care Team (Late st Contact Info) Description 01/25/2012 MyC Medical Advice [place] [address] [facility], [address] [place] [address] [place] [address] [place] [address] Social History Tobacco Use Types [...] CDT Appointment [facility] [place] [address] [place] [address] Kingsley Westbrook DPM [address] [place] [address] documented as of this encounter Visit Diagnoses Not on filedocumented in this encounter Additional Health Concerns Infection Onset Date Last Indicated Resolved Time 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 per 09/01/16 statistical geneticist note; left foot tissue 10/08/16 09/01/2016 09/01/2016 10/11/2018 7:49 AM C DT MRSA Comment:MRSA at outside facility per 09/01/16 statistical geneticist note; left foot tissue 10/08/16 10/11/2018 02/27/2019 documented as of this encounter Care Teams Dairy Hand Relationship Specialty Start Date End Date Dwayne Draper MD PCP - General Family Practice 07/11/11 05/28/14 Hawa Wasserman MD PCP - General 06/29/15 09/03/16 Madhuri Whitman APRN BUILDING ANALYST/SUPERVISOR PCP - General Nurse Practitioner - Family 09/04/16 08/23/20 Madhuri Whitman APRN BUILDING ANALYST/SUPERVISOR [address] [address] PCP - Assigned PCP 09/03/16 05/21/18 [place] [address] [place] [address] PCP - General Family Medicine 08/24/20 01/23/22 No Ref-Primary, Physician PCP - General 02/20/22 06/29/22 [place] [address] [place] [address] PCP - General Family Medicine 06/30/22 Kaylen Aiken, RO[facility] Clinic Water Service Supervisor 10/18/16 Edu Crawford DPM [address] [facility] [address] [place] [address] Podiatry 10/18/16 Madhuri Whitman APRN BUILDING ANALYST/SUPERVISOR [address] [address] Assigned PCP 09/03/16 09/27/19 Rosey Alexander, GLOST KILN OPERATOR Clinic Water Service Supervisor Primary Care - CC 09/27/18 9 Rosey Alexander, GLOST KILN OPERATOR Lead Water Service Supervisor Primary Care - CC 11/08/18 05/07/19 Craig Montenegro PA-C [address] [place] [address] Assigned PCP 09/28/19 01/31/20 Altagracia Alexander DPM, Podiatry/Foot and Ankle Surgery [address] [place] [address] Assigned Musculoskeletal Provider 01/09/20 10/30/20 [place] [address] [place] [address] Assigned PCP 02/01/20 08/28/20 Cy Leonardo Personal Advocate & Liaison (PAL) 08/26/20 10/13/20 [place] [address] [place] [address] Assigned PCP 08/29/20 10/08/23 Rebecca Palumbo MD [address] [place] [address] [id number] Assigned Neuroscience Provider 10/01/20 10/14/21 Anders Ramachandran Personal Advocate & Liaison (PAL) 10/14/20 07/07/21 Magdalena Brice Personal Advocate & Liaison (PAL) 11/14/21 12/27/21 Maddie Mae Personal Advocate & Liaison (PAL) Family Medicine 12/28/21 Aydee Mcgill RN RN Clinical Product Navigator Primary Care - CC 06/30/22 06/30/22 Wendy Agustin APRN BUILDING ANALYST/SUPERVISOR [address] [facility] [address] [place] [address] Assigned PCP 10/09/23 [facility] 10/18/16 06/24/17 [facility] 07/27/17 08/14/17 documented as of this encounter
--- OUTSIDE RECORDS SUMMARY | 2023-12-15 01:45 | XMS_ITS | Encounter Summary ---
Author Organization [place] Address [address] [place] [address] Care Team Providers Care Supervisor Boiler Repair Name Role Phone Dwayne Draper MD Primary Care Provider + DoctorHawa MD Primary Care Provider Unavailabl e Madhuri Whitman DIRECTOR INFORMATION SECURITY WEIGHT GUESSER Primary Care Prov ider Kaylen Aiken RN Unavailable [phone] Edu Crawford DPM Unavailable [phone] Madhuri Whitman DIRECTOR INFORMATION SECURITY WEIGHT GUESSER Unavailable + Madhuri Whitman DIRECTOR INFORMATION SECURITY WEIGHT GUESSER Unavailable + Rosey Alexander ANIMAL CONTROL SPECIALIST Unavailable [phone] Rosey Alexander ANIMAL CONTROL SPECIALIST Unavailable [phone] Craig Montenegro PA-C Unavailable +[phone] Altagracia Alexander DPM, Podiatry /Foot and Ankle Surgery Unavailable Enrico Felton DO Unavailable [phone] Enrico Felton DO Primary Care Provider [phone] Cy Leonardo Unavailable Unavailable Enrico Felton DO Unavailable [phone] Rebecca Palumbo MD Unavailable [phone] Anders Ramachandran Unavailable Unavailable Magdalena Brice Unavailable Unavailable Maddie Mae Unavailable Unavailable No Ref-Primary, Physician Primary Care Provider Enrico Felton DO Primary Care Provider [phone] Aydee Mcgill RN Unavailable [phone] Wendy Agustin DIRECTOR INFORMATION SECURITY WEIGHT GUESSER Unavailable [phone] Reason for Visit * Reason Onset Date Comments Refill Request 03/08/2012 Encounter Details Date Type Department Care Team (Late st Contact Info) Description 03/08/2012 MyC Refill [address], [address] [place] [address] [place] [address] [place] [address] Refill Request Social History Tobacco Use Types [...] PM CDT Appointment [facility] [place] [address] [place] [address] Kingsley Westbrook DPM [address] [place] [address] documented as of this encounter Visit Diagnoses Not on filedocumented in this encounter Additional Health Concerns Infection Onset Date Last Indicated Resolved Time 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 per 09/01/16 federal agent note; left foot tissue 10/08/16 09/01/2016 09/01/2016 10/11/2018 7:49 AM C DT MRSA Comment:MRSA at outside facility per 09/01/16 federal agent note; left foot tissue 10/08/16 10/11/2018 02/27/2019 documented as of this encounter Care Teams Supervisor Boiler Repair Relationship Specialty Start Date End Date Dwayne Draper MD PCP - General Family Practice 07/11/11 05/28/14 Hawa Wasserman MD PCP - General 06/29/15 09/03/16 Madhuri Whitman APRN WEIGHT GUESSER PCP - General Nurse Practitioner - Family 09/04/16 08/23/20 Madhuri Whitman APRN WEIGHT GUESSER [address] [address] PCP - Assigned PCP 09/03/16 05/21/18 [place] [address] [place] [address] PCP - General Family Medicine 08/24/20 01/23/22 No Ref-Primary, Physician PCP - General 02/20/22 06/29/22 [place] [address] [facility] [place] [address] PCP - General Family Medicine 06/30/22 Kaylen Aiken, ROQUE Clinic Inspector Final Assembly Conveyor Line 10/18/16 Edu Crawford DPM [address] [facility] [address] [place] [address] Podiatry 10/18/16 Madhuri Whitman APRN WEIGHT GUESSER [address] [address] Assigned PCP 09/03/16 09/27/19 Rosey Alexander, [facility] Clinic Inspector Final Assembly Conveyor Line Primary Care - CC 09/27/18 9 Rosey Alexander, [facility] Lead Inspector Final Assembly Conveyor Line Primary Care - CC 11/08/18 05/07/19 Craig Montenegro PA-C [address] [place] [address] Assigned PCP 09/28/19 01/31/20 Altagracia Alexander DPM, Podiatry/Foot and Ankle Surgery [address] [address] Assigned Musculoskeletal Provider 01/09/20 10/30/20 [place] [address] [place] [address] Assigned PCP 02/01/20 08/28/20 Cy Leonardo Personal Advocate & Liaison (PAL) 08/26/20 10/13/20 [place] [address] [place] [address] Assigned PCP 08/29/20 10/08/23 Rebecca Palumbo MD [address] [place] [address] [address] [place], [place] 57[address] Assigned Neuroscience Provider 10/01/20 10/14/21 Anders Ramachandran Personal Advocate & Liaison (PAL) 10/14/20 07/07/21 Magdalena Brice Personal Advocate & Liaison (PAL) 11/14/21 12/27/21 Maddie Mae Personal Advocate & Liaison (PAL) Family Medicine 12/28/21 Aydee Mcgill RN RN Clinical Product Navigator Primary Care - CC 06/30/22 06/30/22 Wendy Agustin APRN WEIGHT GUESSER [facility] [address] [place] [address] Assigned PCP 10/09/23 [facility] 10/18/16 06/24/17 [facility] [employer] 07/27/17 08/14/17 documented as of this encounter
--- OUTSIDE RECORDS SUMMARY | 2023-12-15 01:45 | XMS_ITS | Encounter Summary ---
Author Organization [facility] Address [address] [place] [address] Care Team Providers Care Merchandise Flow Team Leader Name Role Phone Dwayne Draper MD Primary Care Provider + DoctorHawa MD Primary Care Provider Unavailabl e Madhuri Whitman RESIDENTIAL REAL ESTATE ASSISTANT WEB CONTENT MANAGER Primary Care Prov ider Kaylen Aiken RN Unavailable [phone] Edu Crawford DPM Unavailable [phone] Madhuri Whitman RESIDENTIAL REAL ESTATE ASSISTANT WEB CONTENT MANAGER Unavailable + Madhuri Whitman RESIDENTIAL REAL ESTATE ASSISTANT WEB CONTENT MANAGER Unavailable + Rosey Alexander MANAGER PULMONARY Unavailable [phone] Rosey Alexander MANAGER PULMONARY Unavailable [phone] Craig Montenegro PA-C Unavailable +[phone] Altagracia Alexander DPM, Podiatry /Foot and Ankle Surgery Unavailable Enrico Felton DO Unavailable [phone] Enrico Felton DO Primary Care Provider [phone] Cy Leonardo Unavailable Unavailable Enrico Felton DO Unavailable [phone] Rebecca Palumbo MD Unavailable [phone] Anders Ramachandran Unavailable Unavailable Magdalena Brice Unavailable Unavailable Maddie Mae Unavailable Unavailable No Ref-Primary, Physician Primary Care Provider Enrico Felton DO Primary Care Provider [phone] Aydee Mcgill RN Unavailable [phone] Wendy Agustin RESIDENTIAL REAL ESTATE ASSISTANT WEB CONTENT MANAGER Unavailable [phone] Encounter Details Date Type Department Care Team (Late st Contact Info) Description 01/16/2012 MyC Medical Advice [address], [address] [place] [address] [facility] Social History Tobacco Use Types Packs/Day Years [...] Info) Description 12/21/2023 2:00 PM CDT Appointment [facility] Wound [address] [place] [address] Kingsley Westbrook DPM [address] [place] [address] documented as of this encounter Visit Diagnoses Not on filedocumented in this encounter Additional Health Concerns Infection Onset Date Last Indicated Resolved Time 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 per 09/01/16 financial sales professional note; left foot tissue 10/08/16 09/01/2016 09/01/2016 10/11/2018 7:49 AM C DT MRSA Comment:MRSA at outside facility per 09/01/16 financial sales professional note; left foot tissue 10/08/16 10/11/2018 02/27/2019 documented as of this encounter Care Teams Merchandise Flow Team Leader Relationship Specialty Start Date End Date Dwayne Draper MD PCP - General Family Practice 07/11/11 05/28/14 Hawa Wasserman, PCP - General 06/29/15 09/03/16 Madhuri Whitman APRN WEB CONTENT MANAGER PCP - General Nurse Practitioner - Family 09/04/16 08/23/20 Madhuri Whitman APRN WEB CONTENT MANAGER [address] [place] [address] PCP - Assigned PCP 09/03/16 05/21/18 [place] [address] [place] [address] PCP - General Family Medicine 08/24/20 01/23/22 No Ref-Primary, Physician PCP - General 02/20/22 06/29/22 [place] [address] [place] [address] PCP - General Family Medicine 06/30/22 Kaylen Aiken, ROQUE Clinic Vrt Mechanic 10/18/16 [place] [address] [facility] [address] [place] [address] Podiatry 10/18/16 Madhuri Whitman APRN WEB CONTENT MANAGER [address] [address] Assigned PCP 09/03/16 09/27/19 Rosey Alexander, RENÉE Clinic Vrt Mechanic Primary Care - CC 09/27/18 9 Rosey Alexander, MANAGER PULMONARY Lead Vrt Mechanic Primary Care - CC 11/08/18 05/07/19 Craig Montenegro PA-C [address] [place] [address] Assigned PCP 09/28/19 01/31/20 Altagracia Alexander DPM, Podiatry/Foot and Ankle Surgery [address] [place] [address] Assigned Musculoskeletal Provider 01/09/20 10/30/20 [place] [address] [place] [address] Assigned PCP 02/01/20 08/28/20 Cy Leonardo Personal Advocate & Liaison (PAL) 08/26/20 10/13/20 [place] [address] [place] [address] Assigned PCP 08/29/20 10/08/23 Rebecca Palumbo MD [address] [place] [address] [id number] Assigned Neuroscience Provider 10/01/20 10/14/21 Anders Ramachandran Personal Advocate & Liaison (PAL) 10/14/20 07/07/21 Magdalena Brice Personal Advocate & Liaison (PAL) 11/14/21 12/27/21 Maddie Mae Personal Advocate & Liaison (PAL) Family Medicine 12/28/21 Aydee Mcgill RN RN Clinical Product Navigator Primary Care - CC 06/30/22 06/30/22 Wendy Agustin APRN WEB CONTENT MANAGER [address] [facility] [address] [place] [address] Assigned PCP 10/09/23 [facility] PV Nano Cell 10/18/16 06/24/17 [facility] PV Nano Cell 07/27/17 08/14/17 documented as of this encounter
--- OUTSIDE RECORDS SUMMARY | 2023-12-15 01:45 | XMS_ITS | Encounter Summary ---
Author Organization [facility] Address [address] [place] [address] Care Team Providers Care Plunger Scoop Operator Name Role Phone Dwayne Draper MD Primary Care Provider + DoctorHawa MD Primary Care Provider Unavailabl e Madhuri Whitman COMMERCIAL INSURANCE UNDERWRITER PLASTICS DESIGN ENGINEER Primary Care Prov ider Kaylen Aiken RN Unavailable [phone] dEu Crawford DPM Unavailable [phone] Madhuri Whitman COMMERCIAL INSURANCE UNDERWRITER PLASTICS DESIGN ENGINEER Unavailable + Madhuri Whitman COMMERCIAL INSURANCE UNDERWRITER PLASTICS DESIGN ENGINEER Unavailable + Rosey Alexander WIRE HARNESS DESIGN ENGINEER Unavailable [phone] Rosey Alexander WIRE HARNESS DESIGN ENGINEER Unavailable [phone] Carig Montenegro PA-C Unavailable +[phone] Altagracia Alexander DPM, Podiatry /Foot and Ankle Surgery Unavailable Enrico Felton DO Unavailable [phone] Enrico Felton DO Primary Care Provider [phone] Cy Leonardo Unavailable Unavailable Enrico Felton DO Unavailable [phone] Rebecca Palumbo MD Unavailable [phone] Anders Ramachandran Unavailable Unavailable Magdalena Brice Unavailable Unavailable Maddie Mae Unavailable Unavailable No Ref-Primary, Physician Primary Care Provider Enrico Felton DO Primary Care Provider [phone] Aydee Mcgill RN Unavailable [phone] Wendy Agustin COMMERCIAL INSURANCE UNDERWRITER PLASTICS DESIGN ENGINEER Unavailable [phone] Reason for Visit * Reason Onset Date Comments Refill Request 02/03/2013 Encounter Details Date Type Department Care Team (Late st Contact Info) Description 02/03/2013 MyC Refill M [address], [address] [place] [address] [place] [address] [place] [address] Refill Request Social History Tobacco [...] MG tablet [Dwayne Draper MD] Preferred pharmacy: [id number] [address] Comment: because of the holidays I was wondering if you could send my prescription for my pain to [facility] in [place] they are due on the Jan. 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 Spinal stenosis, unspecified region other than cervical documented in this encounter Additional Health Concerns Infection Onset Date Last Indicated Resolved Time 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 per 09/01/16 concrete paver note; left foot tissue 10/08/16 09/01/2016 09/01/2016 10/11/2018 7:49 AM C DT MRSA Comment:MRSA at outside facility per 09/01/16 concrete paver note; left foot tissue 10/08/16 10/11/2018 02/27/2019 documented as of this encounter Care Teams Plunger Scoop Operator Relationship Specialty Start Date End Date Dwayne Draper MD PCP - General Family Practice 07/11/11 05/28/14 Hawa Wasserman MD PCP - General 06/29/15 09/03/16 Madhuri Whitman APRN PLASTICS DESIGN ENGINEER PCP - General Nurse Practitioner - Family 09/04/16 08/23/20 Madhuri Whitman APRN PLASTICS DESIGN ENGINEER [address] [place] [address] PCP - Assigned PCP 09/03/16 05/21/18 [place] [address] [place] [address] PCP - General Family Medicine 08/24/20 01/23/22 No Ref-Primary, Physician PCP - General 02/20/22 06/29/22 [place] [address] [place] [address] PCP - General Family Medicine 06/30/22 Kaylen Aiken, ROQUE Clinic Director [place] 10/18/16 Edu Crawford DPM [address] [facility] [address] [place] [address] Podiatry 10/18/16 Madhuri Whitman APRN CNP [address] [place] [address] Assigned PCP 09/03/16 09/27/19 Rosey Alexander, [facility] Clinic Director [place] Primary Care - CC 09/27/18 9 Rosey Alexander, [facility] Lead Director [place] Primary Care - CC 11/08/18 05/07/19 Craig Montenegro PA-C [address] [place] [address] Assigned PCP 09/28/19 01/31/20 Altagracia Alexander DPM, Podiatry/Foot and Ankle Surgery [address] [place] [address] Assigned Musculoskeletal Provider 01/09/20 10/30/20 [place] [address] [place] [address] Assigned PCP 02/01/20 08/28/20 Cy Leonardo Personal Advocate & Liaison (PAL) 08/26/20 10/13/20 [place] [address] [place] [address] Assigned PCP 08/29/20 10/08/23 Rebecca Palumbo MD [address] [place] [address] [address] [place], [place] [id number] Assigned Neuroscience Provider 10/01/20 10/14/21 Anders Ramachandran Personal Advocate & Liaison (PAL) 10/14/20 07/07/21 Magdalena Brice Personal Advocate & Liaison (PAL) 11/14/21 12/27/21 Maddie Mae Personal Advocate & Liaison (PAL) Family Medicine 12/28/21 Aydee Mcgill RN ROQUE Clinical Product Navigator Primary Care - CC 06/30/22 06/30/22 Wendy Agustin APRN PLASTICS DESIGN ENGINEER [address] [facility] [address] [place], [place] [address] Assigned PCP 10/09/23 [facility] 10/18/16 06/24/17 [facility] 07/27/17 08/14/17 documented as of this encounter
--- OUTSIDE RECORDS SUMMARY | 2023-12-15 01:45 | XMS_ITS | Encounter Summary ---
Author Organization [facility] Address [address] [place] [address] Care Team Providers Care Speech Clinician Name Role Phone Madhuri Whitman COLLECTION TEAM LEAD VULCAN CREWMEMBER Primary Care Prov ider Kaylen Aiken RN Unavailable [phone] Edu CrawfordM Unavailable [phone] Madhuri Whitman APRN VULCAN CREWMEMBER Unavailable + Madhuri Whitman APRN VULCAN CREWMEMBER Unavailable + Rosey Alexander TOW TRUCK DISPATCHER Unavailable Rosey Alexander TOW TRUCK DISPATCHER Unavailable [phone] Craig Montenegro PA-C Unavailable [phone] Altagracia Alexander DPM, Podiatry /Foot and Ankle Surgery Unavailable Enrico Felton DO Unavailable [phone] Enrico Felton DO Primary Care Provider [phone] Cy Leonardo Unavailable Unavailable Enrico Felton DO Unavailable [phone] Rebecca Palumbo MD Unavailable [phone] Anders Ramachandran Unavailable Unavailable Magdalena Brice Unavailable Unavailable Maddie Mae Unavailable Unavailable No Ref-Primary, Physician Primary Care Provider Enrico Felton DO Primary Care Provider Aydee Mcgill RN Unavailable [phone] Wendy Agustin APRN VULCAN CREWMEMBER Unavailable [phone] Encounter Details Date Type Department Care Team (Late st Contact Info) Description 11/27/2016 MyC Medical Advice [address], [address] [place] [address] Malou Vallejo Social History Tobacco [...] Info) Description 12/21/2023 2:00 PM CDT Appointment [facility] [address] [place] [address] Kingsley Westbrook, GAYLA [address] [place] [address] documented as of this encounter Visit Diagnoses Not on filedocumented in this encounter Additional Health Concerns Infection Onset Date Last Indicated Resolved Time 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 per 09/01/16 hedis analyst note; left foot tissue 10/08/16 09/01/2016 09/01/2016 10/11/2018 7:49 AM C DT MRSA Comment:MRSA at outside facility per 09/01/16 hedis analyst note; left foot tissue 10/08/16 10/11/2018 02/27/2019 documented as of this encounter Care Teams Speech Clinician Relationship Specialty Start Date End Date Madhuri Whitman APRN VULCAN CREWMEMBER PCP - General Nurse Practitioner - Family 09/04/16 08/23/20 Madhuri Whitman APRN VULCAN CREWMEMBER [address] [place] [address] PCP - Assigned PCP 09/03/16 05/21/18 [place] [address] [place] [address] PCP - General Family Medicine 08/24/20 01/23/22 No Ref-Primary, Physician PCP - General 02/20/22 06/29/22 [place] [address] [place] [address] PCP - General Family Medicine 06/30/22 Kaylen Aiken, ROQUE Clinic Radioisotope Production Operator 10/18/16 Edu Crawford DPM [address] [facility] [address] [place], [place] [address] Podiatry 10/18/16 Madhuri Whitman APRN VULCAN CREWMEMBER [address] [address] Assigned PCP 09/03/16 09/27/19 Rosey Alexander LSW Clinic Radioisotope Production Operator Primary Care - CC 09/27/18 9 Rosey Alexander LSW Lead Radioisotope Production Operator Primary Care - CC 11/08/18 05/07/19 Craig Montenegro PA-C [address] [address] Assigned PCP 09/28/19 01/31/20 Altagracia Alexander, DPM, Podiatry/Foot and Ankle Surgery [address] [place] [address] Assigned Musculoskeletal Provider 01/09/20 10/30/20 [place] [address] [place] [address] Assigned PCP 02/01/20 08/28/20 Cy Leonardo Personal Advocate & Liaison (PAL) 08/26/20 10/13/20 [place] [address] [place] [address] Assigned PCP 08/29/20 10/08/23 Rebecca Palumbo MD [address] [place] [address] [address] [place], [place] 40[address] Assigned Neuroscience Provider 10/01/20 10/14/21 Anders Ramachandran Personal Advocate & Liaison (PAL) 10/14/20 07/07/21 Magdalena Brice Personal Advocate & Liaison (PAL) 11/14/21 12/27/21 Maddie Mae Personal Advocate & Liaison (PAL) Family Medicine 12/28/21 Aydee Mcgill, RN RN Clinical Product Navigator Primary Care - CC 06/30/22 06/30/22 Wendy Agustin APRN VULCAN CREWMEMBER [address] [facility] [address] [place] [address] Assigned PCP 10/09/23 [place] [phone] (Work) Home Care Company 10/18/16 06/24/17 [facility] 07/27/17 08/14/17 documented as of this encounter
--- OUTSIDE RECORDS SUMMARY | 2023-12-15 01:45 | XMS_ITS | Encounter Summary ---
Author Organization [facility] Address [address] [place] [address] Care Team Providers Care Hand Presser Name Role Phone Dwayne Draper MD Primary Care Provider + DoctorHawa MD Primary Care Provider Unavailabl e Madhuri Whitman BLEACHER KRAFT PULP LENS ASSORTER Primary Care Prov ider Kaylen Aiken RN Unavailable [phone] Edu Crawford DPM Unavailable [phone] Madhuri Whitman BLEACHER KRAFT PULP LENS ASSORTER Unavailable + Madhuri Whitman BLEACHER KRAFT PULP LENS ASSORTER Unavailable + Rosey Alexander ASSURANCE SERVICES MANAGER HEALTH CARE Unavailable [phone] Rosey Alexander ASSURANCE SERVICES MANAGER HEALTH CARE Unavailable [phone] Craig Montenegro PA-C Unavailable +[phone] Altagracia Alexander DPM, Podiatry /Foot and Ankle Surgery Unavailable Enrico Felton DO Unavailable [phone] Enrico Felton DO Primary Care Provider [phone] Cy Leonardo Unavailable Unavailable Enrico Felton DO Unavailable [phone] Rebecca Palumbo MD Unavailable [phone] Anders Ramachandran Unavailable Unavailable Magdalena Brice Unavailable Unavailable Maddie Mae Unavailable Unavailable No Ref-Primary, Physician Primary Care Provider Enrico Felton DO Primary Care Provider [phone] Nano Aydee K RN Unavailable Wendy Agustin APRN LENS ASSORTER Unavailable [phone] Reason for Visit * Reason Onset Date Comments Refill Request 03/08/2012 Oxycodone, metha done Encounter Details Date Type Department Care Team (Late st Contact Info) Description 03/08/2012 MyC Refill [facility] [id number] [place] [address], [address] [place] [address] [place] [address] [place] [address] Refill Request (Oxycodone, methadone) Social [...] rx's ready to be picked up at lead front desk agent. Kayleigh Foster RN [facility] RE[facility] * Telephone Encounter - Diane Erazo - 03/08/2012 8:16 AM CSTMessage from MyChart: Original authorizing provider: Dwayne Draper MD, MD Alyssa Palencia would like a refill of the following medications: oxyCODONE (ROXICODONE) 10 MG immediate release tablet [Dwayne Draper MD, MD] methadone (DOLOPHINE) 10 MG tablet [Dwayne Draper MD, MD] Preferred pharmacy: [facility] Comment: I am leaving for [place] on mar 10 and will not be back until mar 25 2012 so I need to gat them filled before I leave since they are a narcitic I think I have to strip picker the script at the clinic [facility] RE[facility] documented in this encounter Plan of Treatment Upcoming Encounters Date Type Department Care Team (Late st Contact Info) Description 12/21/2023 2:00 PM CDT Appointment [facility] [place] [address] [place] [address] Kingsley Westbrook, DPBharath [address] [facility] [address] [place], [place] [address] documented as of this encounter Visit Diagnoses Diagnosis Chronic pain- Primary Other chronic pain documented in this encounter Additional Health Concerns Infection Onset Date Last Indicated Resolved Time 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 per 09/01/16 recording artist note; left foot tissue 10/08/16 09/01/2016 09/01/2016 10/11/2018 7:49 AM C DT MRSA Comment:MRSA at outside facility per 09/01/16 recording artist note; left foot tissue 10/08/16 10/11/2018 02/27/2019 documented as of this encounter Care Teams Hand Presser Relationship Specialty Start Date End Date Dwayne Draper MD PCP - General Family Practice 07/11/11 05/28/14 Hawa Wasserman MD PCP - General 06/29/15 09/03/16 Madhuri Whitman APRN LENS ASSORTER PCP - General Nurse Practitioner - Family 09/04/16 08/23/20 Madhuri Whitman APRN LENS ASSORTER [address] [address] PCP - Assigned PCP 09/03/16 05/21/18 [place] [address] [place] [address] PCP - General Family Medicine 08/24/20 01/23/22 No Ref-Primary, Physician PCP - General 02/20/22 06/29/22 [place] [address] [place] [address] PCP - General Family Medicine 06/30/22 Kaylen Aiken, ROQUE Clinic Food Server 10/18/16 [place] [address] [facility] [address] [place], [place] [address] Podiatry 10/18/16 Madhuri Whitman APRN LENS ASSORTER [address] [place] [address] Assigned PCP 09/03/16 09/27/19 Rosey Alexander, [facility] Clinic Food Server Primary Care - CC 09/27/18 9 Rosey Alexander, [facility] Lead Food Server Primary Care - CC 11/08/18 05/07/19 Craig Montenegro PA-C [address] [place] 35412[address] Assigned PCP 09/28/19 01/31/20 Altagracia Alexander DPM, Podiatry/Foot and Ankle Surgery [address] [place] [address] Assigned Musculoskeletal Provider 01/09/20 10/30/20 [place] [address] [place] [address] Assigned PCP 02/01/20 08/28/20 Cy Leonardo Personal Advocate & Liaison (PAL) 08/26/20 10/13/20 [place] [address] [place] [address] Assigned PCP 08/29/20 10/08/23 Rebecca Palumbo MD [address] [place] [address] [address] [place] [address] Assigned Neuroscience Provider 10/01/20 10/14/21 Anders Ramachandran Personal Advocate & Liaison (PAL) 10/14/20 07/07/21 Magdalena Brice Personal Advocate & Liaison (PAL) 11/14/21 12/27/21 Maddie Mae Personal Advocate & Liaison (PAL) Family Medicine 12/28/21 Aydee Mcgill RN ROQUE Clinical Product Navigator Primary Care - CC 06/30/22 06/30/22 Wendy Agustin APRN LENS ASSORTER [address] [facility] [address] [place], [place] [address] Assigned PCP 10/09/23 [facility] 10/18/16 06/24/17 [facility] 07/27/17 08/14/17 documented as of this encounter
== END 2023-12-11 23:36 | disposition home or self-care (01) ==
LOC: AMB 12-15 01:38
PROVIDERS: PCP Family Medicine; Visit Provider Emergency Medicine Emergency Medical Services
DX: R10.9 Unspecified abdominal pain (principal)
CPT/HCPCS: A0425; A0427

== ENCOUNTER 2023-12-12 00:05 | Emergency (ER) | payer MEDICARE, SELFPAY ==
[2023-12-12] VITALS (17 sets, daily range): BP systolic 144–204; BP diastolic 78–112; PULSE 64–82; RESP 16; TEMP 36.2; O2SAT 93–100
--- NOTE | 2023-12-12 00:11 | CRLHL7_ITS ---
For Patients: As a result of the Century Cures Act, medical imaging exams and procedure reports are released immediately into your electronic medical record. You may view this report before your referring provider. If you have questions, please contact your health care provider. INDICATION: Transient alteration of awareness TECHNIQUE: CT Head without i.v. contrast. Coronal and sagittal reformats were obtained. COMPARISON: 06/12/2022 FINDINGS: CSF space: The ventricles are normal for age. Brain: In the medial right frontal lobe, there is a hyperdense (57 HU) 2 cm lesion in the site of the previous hemorrhage which may represent a recurrent hemorrhage. No mass-effect or midline shift is seen. Calvarium: The visualized paranasal sinuses are well aerated. The mastoid air cells are clear. The visualized orbits are grossly unremarkable. The calvarium is unremarkable in appearance with no fractures identified. IMPRESSION: 1. In the medial right frontal lobe, there is a hyperdense (57 HU) 2 cm lesion in the site of the previous hemorrhage which may represent a recurrent hemorrhage. MRI surveillance is recommended to exclude any underlying lesion or vascular malformation. The findings were discussed with Dr. Rodriguez at 1:01 AM. Dictated by Davon Paredes MD @ 12/12/2023 12:59:37 AM Please note that all CT scans at this facility use dose modulation, iterative reconstruction, and/or weight-based dosing when appropriate to reduce radiation dose to as low as reasonably achievable. Dictated by: Davon Paredes MD @ 12/12/2023 01:02:04 (Electronically Signed)
--- NOTE | 2023-12-12 00:29 | ED_ITS ---
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 She is currently living in a mixed household and someone else from the residence called 911. It is unclear of the status of their relationship. She gives very limited history and EMS did not have much additional to contribute. Patient is reporting pain but does not localize it. She denies trauma or injury. She denies fevers or recent illness. But in all fairness, she denies prior abdominal surgeries based on her surgical scarring, this is not the case. She is alert and oriented times 0 for the nurses but will follow some commands. very difficult history. She does have a history of addiction, denies any acute intoxication tonight but not with a reliable history. Cognitive impairment has been documented multiple times in hospital records. Past medical history notable for prior urine infections, prior stroke. 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 She cannot tell me her medications but I do have some outside records flowing in, I am uncertain of accuracy of these. They are reviewed. ROS is completely unreliable but I do have several ED notes from prior visits to review. Related Data Home Medications ?Medication ?Instructions ?Recorded ?Confirmed amlodipine 5 mg tablet 5 mg PO DAILY 01/17/22 04/22/23 baclofen 5 mg tablet 5 mg PO TID 01/17/22 04/22/23 buprenorphine 8 mg-naloxone 2 mg 1 film sublingual DAILY 01/17/22 04/22/23 sublingual film (Suboxone) oxybutynin chloride 5 mg 5 mg PO DAILY 01/17/22 04/22/23 tablet,extended release 24 hr pantoprazole 40 mg tablet,delayed 40 mg PO BID 01/17/22 04/22/23 release paroxetine HCl 30 mg tablet 60 mg PO DAILY 01/17/22 04/22/23 pregabalin 150 mg capsule (Lyrica) 150 mg PO BID 01/17/22 04/22/23 rosuvastatin 5 mg tablet 5 mg PO HS 01/17/22 04/22/23 sennosides 8.6 mg capsule (senna) 8.6 mg PO BID 01/17/22 04/22/23 Previous Rx's ?Medication ?Instructions ?Recorded cephalexin 500 mg capsule 500 mg PO TID #15 caps 01/18/22 pregabalin 150 mg capsule 150 mg PO BID #60 caps 04/22/23 Allergies Allergy/AdvReac Type Severity Reaction Status Date / Time celecoxib Allergy Unknown Verified 04/22/23 06:58 ibuprofen [From Motrin] Allergy Unknown Verified 04/22/23 06:58 naproxen Allergy Unknown Verified 04/22/23 06:58 acetaminophen [From Tylenol] Allergy Unknown Verified 04/22/23 06:58 atorvastatin [From Lipitor] Allergy Verified 04/22/23 06:58 buspirone [From BuSpar] Allergy Unknown Verified 04/22/23 06:58 gabapentin [From Neurontin] Allergy Verified 04/22/23 06:58 sertraline [From Zoloft] Allergy Unknown Verified 04/22/23 06:58 prednisone AdvReac gingivitis Verified 04/22/23 06:58 [facility] Medical History Gastroesophageal reflux ?K21.9 - Gastro-esophageal reflux disease without esophagitis (ICD-10) Depression ?F32.A - Depression, unspecified (ICD-10) Cognitive impairment ?R41.89 - Other symptoms and signs involving cognitive functions and awareness (ICD-10) Substance abuse ?F19.10 - Other psychoactive substance abuse, uncomplicated (ICD-10) Chronic pain ?G89.29 - Other chronic pain (ICD-10) Intracerebral hemorrhage ?I61.9 - Nontraumatic intracerebral hemorrhage, unspecified (ICD-10) Surgical History H/O Achilles tendon repair ?Z98.890 - Other specified postprocedural states (ICD-10) History of appendectomy ?Z90.49 - Acquired absence of other specified parts of digestive tract (ICD- 10) History of lumbar laminectomy ?Z98.890 - Other specified postprocedural states (ICD-10) H/O cervical spine surgery ?Z98.890 - Other specified postprocedural states (ICD-10) Family History Mother Breast cancer Diabetes Stroke Sister Breast cancer Daughter Diabetes Father Heart disease Social History Narrative: She lives in the home with roommates. She tells me that she owns th e home but has been delinquent in mortgage payments and is at risk for foreclosure. She is a smoker. Smoking Status: Unknown if ever smoked Do you use any of these nicotine containing products: Other Second hand tobacco smoke exposure: No Non-prescribed substance use: amphetamines/methamphetamines service: No Exam Const: Vital Signs, click to edit/add: Vital Signs - 24 hr 12/12/23 00:12 Temperature 97.1 F L Pulse Rate [Pulse Oximeter] 66 Respiratory Rate 16 Blood Pressure [Ri ght Upper Arm] 204/111 H Pulse Oximetry 96 Oxygen Delivery Me thod Room Air Documenting provider has reviewed patient's vital signs: yes O rientation/consciousness: Yes awake Other: Confuse, slightly agitated. Will follow some commands, answers no to questions, does make eye contact. Seems delirious. HENMT: Common normals: normocephalic, head/scalp atraumatic, moist oral mucous membranes and oropharynx normal Head and scalp: normocephalic and atraumatic Eye: Common normals: PERRL and EOMs intact bilaterally General eye: normal appearance of both eyes Pupil: PERRL Neck & C-Spine: Common normals: full ROM and no lymphadenopathy Resp: Common normals: normal respiratory effort, no use of accessory muscles and clear to auscultation bilaterally Effort & inspection: able to speak in complete sentences Auscultation: clear to auscultation bilaterally Cardio: Common normals: regular rate, regular rhythm, S1 normal heart sound, S2 normal heart sound and no murmurs Rate: regular rate Rhythm: regular rhythm Heart sounds: S1 normal and S2 normal GI: Common normals: Normal to inspection, nondistended, normoactive bowel sounds present Other: Infraumbilical vertical surgical scar, not recent, well-healed. No obvious mass. No rebound tenderness or guarding. Yeast intertrigo in pannus folds. Extremity: Other: Left pwoqw-aef-pebt amputation, right missing several toes. Wound on the bottom of right foot, proximal MTP area Neuro: Sensorium/orientation: awake and orientation impaired Other: Very limited neuro exam. No obvious hemiplegia. Can move her extremities on exam, tries to remove her gown. Psych: Activity/motor behavior: appropriate eye contact and psychomotor agitation Mood and affect: anxious Thought process: disorganized Insight: poor Judgement: poor Skin: Narrative: Chronic appearing ulceration of right plantar distal foot. Caity intertrigo of abdominal folds. No signs of bruising, new open lacerations or recent injury. Course Course ED Course: 62-year-old female presenting with altered mental status. Differential diagnosis is highest for acute delirium of uncertain significance. Multiple potential medical etiologies including cerebrovascular disease, cardiac disease, sepsis, toxic ingestion, metabolic derangement, amongst many others. Will start with head CT, typical labs, bolus 0.5 L fluid. Drug screen, lactate. Nursing team is letting me know that in CT, she is very agitated, will give 1 mg of IV Ativan. Update: Family let us know that at her baseline, she does not really get out of bed much but has definitely not gotten out of bed for the past 2 days. They would say that that was probably her last known well time. They really had not paid much attention but certainly noted that she was confuse this evening. The timeline is very difficult here. Smell strongly of urine, clothes are dirty. I promptly looked at the CT when patient arrived back and do see evidence of acute bleeding in her prior area of hemorrhage, bright white any right frontal lobe, intraparenchymal. I did recheck on patient, repeat blood pressure is 1 80s systolic. Nursing team is attempting to clean her up in place of fully. I spoke with Palmira Cavanaugh regarding transfer. Was able to speak with an block captain and they reviewed the films and have agreed that this does appear to be acute hemorrhage in she should be transferred. We will begin arranging this. They are very tight on beds, this will delay her transfer slightly. We are awaiting call back for nurse to nurse report. Will try to lower blood pressure below 160. Initial dose of labetalol and start nicardipine drip per recommendation of block captain team. We are thankful for their input. Reevaluation(s) Time of Reevaluation #1: 02:28 Reevaluation #1: Delay in transfer from waiting for nurse to nurse report. Blood pressure did come down nicely, 120 systolic at the time transport on the nicardipine drip. Patient calm, is needing 2 L of oxygen after the Ativan. No other signs of further neurological decline. She is moving extremities but has not improved in orientation. Does seem to be safely protecting her airway, swallows and can speak. Labs did show that she was quite dry, 0.5 L of IV fluids have been given. Patient will be transferred via ALS ground to [facility] neuro ICU. Vital Signs Vital signs: Initial Vital Signs Temperature 97.1 F L 12/12/23 00:12 Temperature Source Temporal Artery Scan 12/12/23 00:12 Pulse Rate 66 12/12/23 00:12 Respiratory Rate 16 12/12/23 00:12 Blood Pressure 204/111 H 12/12/23 00:12 Blood Pressure Mean 142 H 12/12/23 00:12 Blood Pressure Position Supine 12/12/23 00:12 Pulse Oximetry 96 12/12/23 00:12 Oxygen Delivery Method Room Air 12/12/23 00:12 Vital Signs Temperature 97.1 F L 12/12/23 00:12 Pulse Rate 66 12/12/23 00:12 Respiratory Rate 16 12/12/23 00:12 Blood Pressure 204/111 H 12/12/23 00:12 Pulse Oximetry 96 12/12/23 00:12 Oxygen Delivery Method Room Air 12/12/23 00:12 Temperature 97.1 F L 12/12/23 00:12 Pulse Rate 66 12/12/23 00:12 Respiratory Rate 16 12/12/23 00:12 Blood Pressure 204/111 H 12/12/23 00:12 Pulse Oximetry 96 12/12/23 00:12 Oxygen Delivery Method Room Air 12/12/23 00:12 Medications Administered Medications: Generic Name Dose Route Start Last Admin Trade Name Freq PRN Reason Stop Dose Admin Nicardipine/Sodium Chloride 20 mg in 200 mls @ 50 mls/hr 12/12/23 01:28 12/12/23 02:11 Cardene Iv IV 50 mls/hr DIRECTED MITZI Administration Protocol Discontinued Medications Generic Name Dose Route Start Last Admin Trade Name Freq PRN Reason Stop Dose Admin Sodium Chloride 500 mls @ 500 mls/hr 12/12/23 00:28 12/12/23 01:22 0.9 % Sodium Chloride 500 Ml IV 12/12/23 01:27 500 mls/hr .Q1H ONE Administration Labetalol HCl 5 mg 12/12/23 01:25 12/12/23 01:35 Labetalol Hcl 5 Mg/Ml Inj IVP 12/12/23 01:26 5 mg ONCE ONE Administration Lorazepam 1 mg 12/12/23 00:39 12/12/23 00:45 Lorazepam 2 Mg/Ml Inj IVP 12/12/23 00:40 1 mg ONCE ONE Administration Medical Decision Making Lab Data Lab results reviewed: Yes I reviewed the patient's lab results Lab results narrative: Very mild leukocytosis with stable hemoglobin. Electrolytes look quite good as does renal function. Lactate is elevated I suspect this is from dehydration. Alcohol and toxicity studies are initially negative. Will bolus 500 mL of normal saline. Labs: Lab Results 12/12/23 12/12/23 12/12/23 Range/Units 00:20 00:28 01:30 WBC 13.82 H (4.50-11.00) K/uL RBC 5.81 H (4.00-5.20) m/uL Hgb 16.6 H (12.0-16.0) gm/dL Hct 49.9 (33.0-51.0) % MCV 86 (80-100) fL MCH 29 (26-34) pg MCHC 33 (32-36) gm/dL RDW Coeff of Arlin 13.8 (11.5-15.5) % Plt Count 253 (140-440) K/uL Neut % (Auto) 73.9 H (42.0-72.0) % Lymph % (Auto) 19.4 L (20-44) % [place] % (Auto) 5.1 (0.0-11.0) % Eos % (Auto) 0.2 (0.0-7.0) % Baso % (Auto) 0.5 (0.0-3.0) % Neut # (Auto) 10.20 H (1.7-7.0) K/uL Lymph # (Auto) 2.70 (0.90-2.90) K/uL Jefferson # (Auto) 0.70 (0.00-0.90) K/UL Eos # (Auto) 0.00 (0.00-0.50) K/uL Baso # (Auto) 0.10 (0.00-0.30) K/uL Abs Immat Gran (auto) 0.10 (0.00-0.30) K/uL Imm/Tot Granulo (auto) 0.9 % Sodium 140 (135-149) mmol/L Potassium 4.1 (3.6-5.1) mmol/L Chloride 107 (96-114) mmol/L Carbon Dioxide 21 (20-32) mmol/L Anion Gap 12 (7-15) mEq/L BUN 23 (7-30) mg/dL Creatinine 1.0 (0.5-1.5) mg/dL Estimated GFR 64 ml/min Glucose 129 H (60-115) mg/dL Lactate 3.6 H (0.5-1.9) mmol/L Calcium 9.8 (8.4-10.6) mg/dL Total Bilirubin 0.8 (0.1-1.5) mg/dL AST 26 (12-35) U/L ALT 17 (4-35) U/L Alkaline Phosphatase 117 (40-150) U/L Troponin I 0.02 (0.01-0.04) ng/mL Total Protein 8.4 H (6.0-8.3) g/dL Albumin 4.5 (3.3-5.0) g/dL Lipase 26 (23-300) U/L Procalcitonin < 0.03 L (<0.50) ng/mL Urine Color Yellow (Yellow) Urine Appearance Clear (Clear) Urine pH 6.0 (5.0-8.5) Ur Specific [place] >= 1.030 (1.000-1.030) Urine Protein 3+ A (Negative) Urine Glucose (UA) Negative (Negative) Urine Ketones 3+ A (Negative) Urine Blood 2+ A (Negative) Urine Nitrite Negative (Negative) Urine Bilirubin 1+ A (Negative) Urine Urobilinogen 0.2 (0.2-1.0) Ur Leukocyte Esterase Negative (Negative) Urine RBC 0-2 (0-2) Urine WBC 2-5 (0-5) Urine WBC Clumps None (None) Ur Squamous Epith Cells Moderate A (None-Few) Amorphous Sediment Few A (None) Urine Bacteria Moderate A (None) Salicylates < 1.0 L (1.0-10) mg/dL Urine Opiates Screen Negative (Negative) Ur Oxycodone Screen Negative (Negative) Urine Methadone Screen Negative (Negative) Acetaminophen < 10.0 L (10.0-30.0) ug/mL Ur Barbiturates Screen Negative (Negative) U Tricyclic Antidepress Negative (Negative) Ur Phencyclidine Scrn Negative (Negative) Ur Amphetamines Screen Negative (Negative) U Methamphetamines Scrn POSITIVE A (Negative) U Benzodiazepines Scrn Negative (Negative) Urine Cocaine Screen Negative (Negative) U Marijuana (THC) Screen POSITIVE A (Negative) Ur Drug Screen Comment See Note Ethyl Alcohol < 0.01 L (0.01-0.03) % SARS-CoV-2 (PCR) Negative SARS-CoV-2 (Negative) Influenza Type A (PCR) Negative PCR FLU A (Negative) Influenza Type B (PCR) Negative PCR FLU B (Negative) RSV (PCR) Negative PCR RSV (Negative) ECG Data Attestation: I personally reviewed and interpreted this ECG as follows: Prior ECG tracings: available for review Interpretation: Left bundle branch block with otherwise sinus rhythm at a rate of 68. Unchanged from 2022. No obvious ischemia seen in comparison. Discharge Plan Discharge Clinical Impression: Hemorrhagic stroke Patient Disposition: Xfer [facility] Discharge Location: [facility] Condition: Guarded Prescriptions: No Action amlodipine 5 mg tablet 5 mg PO DAILY baclofen 5 mg tablet 5 mg PO TID buprenorphine-naloxone [Suboxone] 8-2 mg film 1 film sublingual DAILY oxybutynin chloride 5 mg tablet extended release 24hr 5 mg PO DAILY pantoprazole 40 mg tablet,delayed release (DR/EC) 40 mg PO BID paroxetine HCl 30 mg tablet 60 mg PO DAILY pregabalin [Lyrica] 150 mg capsule 150 mg PO BID rosuvastatin 5 mg tablet 5 mg PO HS senna 8.6 mg capsule 8.6 mg PO BID Rx Instructions: 1-4 tabs BID cephalexin 500 mg capsule 500 mg PO TID Qty: 15 0RF pregabalin 150 mg capsule 150 mg PO BID Qty: 60 0RF Stand Alone Forms: MyHealth Info Instructions
[2023-12-12 00:35] LABS: Lactate* 3.6 mmol/L (0.5-1.9)
[2023-12-12 00:36] LABS: Basophils Percent Auto 0.5 % (0.0-3.0); Eosinophils Percent Auto 0.2 % (0.0-7.0); Hematocrit 49.9 % (33.0-51.0); Hemoglobin* 16.6 gm/dL (12.0-16.0); Immature Granulocytes Pct Auto 0.9 %; Lymphocytes Percent Auto 19.4 % (20-44); Mean Corpuscular HGB Conc 33 gm/dL (32-36); Mean Corpuscular Hemoglobin 29 pg (26-34); Mean Corpuscular Volume 86 fL (80-100); Monocytes Percent Auto 5.1 % (0.0-11.0); Neutrophils Percent Auto 73.9 % (42.0-72.0); Platelet Count* 253 K/uL (140-440); RDW Coefficient of Variation % 13.8 % (11.5-15.5); Red Blood Count 5.81 m/uL (4.00-5.20); White Blood Count* 13.82 K/uL (4.50-11.00)
--- OUTSIDE RECORDS SUMMARY | 2023-12-12 00:40 | XMS_ITS | Continuity of Care Document ---
Author Organization [facility] r[facility] Address [address] [place] [address] [place] [address] Phone Care Team Providers Care Workers Compensation Specialist Name Role Phone Will Yaya MARTINES Unavailable [...] Diagnoses Date Provider Providers Copied on Encounter [facility], [address] [place] [address], [id number] , [place] tel:[phone] [facility] Nadya No Information 2 Will Yaya. [address] [facility] [place], [place], [id number], [place]. tel:[phone] OFFICE/OUTPA TIENT VISIT, EST [facility], [address] [facility] [place], [place], [id number] , [place] tel:[phone] [facility] Talent chronic pain (chief complaint) Degeneration of cervical intervertebral discCervicalgiaLumba goSciatica Due To Displacement Of Lumbar DiscIntervertebral disc disorder with myelopathy, lumbar region 4 [facility]. [address] [place], [address], [place]. tel:[phone] Referring Provider: Yaya Bui, [address] [place], [address] . tel:[phone] OFFICE/OUTPA TIENT VISIT, [facility], [address] [place], [id number] , [place] tel:[phone] [facility] Tal[place] chronic pain (chief complaint) Degeneration of cervical intervertebral discCervicalgiaLumba goSciatica Due To Displacement Of Lumbar DiscTherapeutic Drug Monitoring 4 [facility]. [address] [place], [address], [place]. tel:[phone] Referring Provider: Yaya Bui, [address] [place], [address] . tel:[phone] OFFICE/OUTPA TIENT VISIT, [facility], [address] [place], [id number] , [place] [phone] [facility] chronic pain (chief complaint) CervicalgiaDegenerat ion of cervical intervertebral discLumbagoSciatica Due To Displacement Of Lumbar Disc 4 [facility]. [address] [place], [address], [place]. tel:[phone] Referring Provider: Yaya Bui, [address] [place], [address] . tel:[phone] OFFICE/OUTPA TIENT VISIT, [facility], [address] [place], [id number] , [place] [phone] [facility] Nadya chronic pain (chief complaint) LumbagoDegeneration of thoracic or thoracolumbar intervertebral discDisplacement of lumbar intervertebral disc without myelopathyCervicalgi a 2 Will Yaya. [address] [place], [id number], [place]. tel:[phone] Referring Provider: Yaya Bui, [place], [address] . tel:[phone] [facility], [address] [place], [id number] , [place] tel:[phone] [facility] [place] Lumbago [address] [place], [id number], [place]. tel:[phone] Referring Provider: Yaya Bui, [facility] [place], [address] . tel:[phone] OFFICE/OUTPA TIENT VISIT, [facility], [address] [place], [id number] , [place] tel:[phone] [facility] chronic pain (chief complaint) Brachial neuritis or radiculitis nosDegeneration of thoracic or thoracolumbar intervertebral discPain in thoracic spineLumbagoDisplace ment of lumbar intervertebral disc without myelopathy 2 Will Yaya. [address] [place], [id number], [place]. tel:[phone] Referring Provider: Yaya Bui, [facility] [place], [address] . tel:[phone] OFFICE/OUTPA TIENT VISIT, [facility], [address] [place], [id number] , [place] tel:[phone] [facility] chronic pain (chief complaint) Brachial neuritis or radiculitis nosDegeneration of cervical intervertebral discLumbagoDisplacem ent of lumbar intervertebral disc without myelopathy 2 Will Yaya. [address] [place], [id number], [place]. tel:[phone] Referring Provider: Yaya Biu, [address] [facility] [place], [address] . tel:[phone] Family History Family Member Type Diagnosis Age At Onset Mother, sisters and Problem (finding) degenerative dis cs and back pain Payers Payer name Insurance type Covered alliance party ID Authorkathy fernandez(s) Medicare MB [id number] Social History Type Description Quantity Date Captured Comments Sex Female Smoking Status No Information Chief Complaint And Reason For Visit No Information Reason For Referral Reason For Referral No Information History Of Present Illness Encounter [...]
--- OUTSIDE RECORDS SUMMARY | 2023-12-12 00:40 | XMS_ITS | Continuity of Care Document ---
Author Organization [facility] Address [address] [place] [address] Phone Care Team Providers Care Mobile Product Manager Name Role Phone Unavailable Unavailable Unavailable Allergies, Adverse Reactions, Alerts Substance Reaction Status Criticality celecoxib Made her stiff Active No Informat ion gabapentin Resolved No Information Medications Medication Instructions Dosage Effective Dates (start - stop) Status Comments atenolol 25 mg Tab Take one tablet by mouth daily (1T PO QD) - Active Paxil 20 mg Tab Take one tablet by mouth daily (1T PO QD) - Active lovastatin 20 mg tablet take 1 tablet by oral route every day with the evening meal 20 MG - Active cyanocobalamin (vit B-12) 1,000 mcg tablet take 1 by Oral route every day 1 - Active Zocor 20 mg Tab 1 Capsule by mouth at bedtime (1CAP PO HS) - No Longer Active Prilosec 20 mg Cap Take one capsule by mouth daily (1CAP PO QD) - No Longer Active Klonopin 0.5 mg Tab Take two tablets by mouth three times per day (2T PO TID) - No Longer Active OxyContin 40 mg 12 hr Tab Take one capsule by mouth every twelve hours (1CAP PO Q12H) - No Longer Active METHADONE HCL 10MGTABLET Take one tablet by mouth every six hours (1T PO Q6H) - No Longer Active clonazepam 1 mg tablet take 1 tablet by oral route 2 times every day 1 MG - No Longer Active prednisone 10 mg tablet take 1 tablet by oral route 2 times every day 10 MG - No Longer Active Bactrim DS 800 mg-160 mg tablet take 1 tablet by oral route every 12 hours 1.00 tablet - No Longer Active oxycodone 10 mg tablet take 1 tablet by oral route every 6 hours as needed for post surgical pain 10 MG - No Longer Active Procedures Procedure Date New Pt Eval 45 Min Drug screen, other than chromatographic Offic/outpt E&m Estab Mod-hi 4 12 Patient NOT Screened for Alcohol Use Apr Patient NOT Screened for Tobacco Use Apr Current Med Dosages Verified & Documente d Patient encounter was documented using a [facility] cer Psych Dx Interview Exam Est Pt Eval 25 Min Offic/outpt E&m Estab Mod-hi 2 10 Drug Screen, Single Class X Handl/convey Specmn-offic To L 10 Offic Cons New/estab Mod-hi 60 10 Epid/SAB Cerv/Thor Epidurography Depomedrol 80mg Lo Osm Contr Mat (200-249mg) Marcaine (1 mL = 1 Unit) Needle Only Sterile Any Size Epidural Tray Advance Directives Directive Yes / No Effective Date File Name No Information Encounters Encounter Description Practice Location Reason(s) For Visit Diagnoses Date Provider Providers Copied on Encounter New Pt Eval 45 Min [facility], [address], [place], [place], [id number], [place] tel:[phone] [facility] No Information 4 No Information Referring Provider: Cooper Maria MD, [place], [address]. tel:[phone] Offic/outpt E&m Estab Mod-hi 4 [place], [facility], [address], [id number], [place] tel:[phone] [facility] No Information 2 Caleb Brothers. [address], [facility] [address] [place], [place], [id number], [place]. tel:[phone] Referring Provider: Cooper Maria MD, [address] [place], [address]. tel:[phone] [facility], [facility], [address] [facility] [address] [place], [place], [id number], [place] tel:[phone] [facility] No Information 0 0 Skip Woody. [address] [facility] [address], [place], [id number], [place]. tel:[phone] Referring Provider: Cooper Maria MD, [address] [place], [address]. tel:[phone] Est Pt Eval 25 Min [facility], [facility], [address] [facility] [address] [place], [place], [id number], [place] tel:[phone] [facility] No Information 0 RN RN. [address] [facility] [address], [place], [id number], [place]. tel:[phone] Referring Provider: Cooper Maria MD, [address] [place], [address]. tel:[phone] Offic/outpt E&m Estab Mod-hi 2 [place], [facility], [address] [facility] [address] [place], [place], [id number], [place] tel:[phone] [facility] No Information 0-201 0 Abdiel Ng. [address] [place], [address], [place]. Referring Provider: Cooper Maria MD, [address] [place], [address]. tel:[phone] Offic Cons New/estab Mod-hi 60 [facility], [facility], [address] [facility] [address], [place], [place], [id number], [place] tel:[phone] [facility] No Information 0 Abdiel Ng. [address] [place], [address], [place]. Referring Provider: Cooper Maria MD, [address] [place], [address]. tel:[phone] [facility], [address] [facility] [address] [place], [place], [id number], tel:[phone] [facility] No Information 0 Regino Pang. [address] [facility] [address], [place], [id number], [place]. tel:[phone] Referring Provider: Cooper Maria MD, [address] [place], [address]. tel:[phone] Family History Family Member Type Diagnosis Age At Onset N/A Problem (finding) spinal degeneration N/A Problem (finding) back pain Payers Payer name Insurance type Covered green party ID Authoriza tion(s) No Information Social History Type Description Quantity Date Captured Comments Alcohol Use Details Caffeine Use Details coffee 1 cup per day Tobacco Use Status No Information Smoking Status Current every day smoker Non-Smoking Tobacco Use Details Cigarette smoking: No Details Available : No Details Available Cigarette smoking: No Details Available : No Details Available Sex Female Vital Signs Date / Time: Height Weight BMI Pulse Rate Blood Pressure Temperature Respiratory Rate Body Surface Area Head Circumference Head Circ. Percentile Wt./Marek. Percentile BMI percentile Pulse Ox Inhaled Ox 1:54 PM 72 /min 139/89 mm[Hg] 16 /min 99 % Chief Complaint And Reason For Visit No [...]
--- OUTSIDE RECORDS SUMMARY | 2023-12-12 00:40 | XMS_ITS | Clinical Summary ---
Author Organization [facility] Address [address] [place] [address] Care Team Providers Care Technical Specialist Cytology Name Role Phone Edu Crawford DPM Unavailable [phone] Maddie Mae Unavailable Unavailable Enrico Felton DO Primary Care Provider [phone] Wendy Agustin APRN GAS FITTER APPRENTICE Unavailable [phone] Allergies Active Allergy Reactions Criticality Noted Date Comments Acetaminophen GI Disturbance 05/10/2013 Gastric Reflux Atorvastatin Rash Low Buspirone Dizziness 10/20/2013 Gabapentin Other (See Comments) Body stiffness Ibuprofen GI Disturbance 10/20/2013 She reported that she will take if needs something. Naproxen Other (See Comments) ,GI Disturbance 06/27/2011 Body stiffness Nsaids Other (See Comments) 06/28/2011 Bruises Prednisone Other (See Comments) 10/15/2013 Sores in her mouth and doesn't like what it does to her Sertraline GI Disturbance Cramping, flatulence Medications Medication Sig Dispensed Refills Start Date End Date Status PARoxetine (PAXIL) 30 MG tabletIndications:[facility] and depression Take 2 tablets (60 mg) by mouth daily 180 tablet 4 02/20/2022 Active buprenorphine HCl-naloxone HCl (SUBOXONE) 8-[address] 1 Film under the tongue daily Active cloNIDine (CATAPRES) 0.1 MG tablet 10/31/2023 Active hydrOXYzine HCl (ATARAX) 25 MG tablet 11/14/2023 Active celecoxib (CELEBREX) 100 MG capsuleIndications: Other chronic pain,Osteoarthritis of cervical spine, unspecified spinal osteoarthritis complication status,DDD (degenerative disc disease), lumbar Take 1 capsule (100 mg) by mouth 2 times daily. 180 capsule 3 11/28/2023 Active omeprazole (PRILOSEC) [address] capsuleIndications: Gastroesophageal reflux disease, unspecified whether esophagitis present Take 1 capsule (40 mg) by mouth daily. 90 capsule 3 11/28/2023 Active ondansetron (ZOFRAN) 4 MG tabletIndications:G astroesophageal reflux disease, unspecified whether esophagitis present Take 1 tablet (4 mg) by mouth every 8 hours as needed for nausea. 20 tablet 11/28/2023 Active pregabalin (LYRICA) 150 MG capsuleIndications: Spasticity Take 1 capsule (150 mg) by mouth 2 times daily. 180 capsule 1 11/28/2023 Active oxyBUTYnin (DITROPAN) 5 MG tabletIndications:O veractive bladder Take 1 tablet (5 mg) by mouth at bedtime. 90 tablet 3 11/28/2023 Active pregabalin (LYRICA) 150 MG capsuleIndications: Spasticity Take 1 capsule (150 mg) by mouth 2 times daily for 30 days 60 capsule 10/25/2021 4 Discontinued( Reorder (No AVS)) lisinopril (ZESTRIL) 20 MG tabletIndications:E ssential hypertension Take 1 tablet (20 mg) by mouth daily 90 tablet 4 02/20/2022 4 Discontinued( Med Rec(No AVS / No eCancel)) amLODIPine (NORVASC) 5 MG tabletIndications:E ssential hypertension Take 1 tablet (5 mg) by mouth daily 90 tablet 4 02/20/2022 4 Discontinued( Therapy completed (No AVS)) pantoprazole (PROTONIX) 40 MG EC tabletIndications:G astroesophageal reflux disease, unspecified whether esophagitis present Take 1 tablet (40 mg) by mouth daily 90 tablet 4 02/20/2022 4 Discontinued( Alternate therapy) rosuvastatin (CRESTOR) 5 MG tabletIndications:H yperlipidemia with target LDL less than 100 Take 1 tablet (5 mg) by mouth daily 90 tablet 3 03/20/2022 4 Discontinued( Med Rec(No AVS / No eCancel)) levETIRAcetam (KEPPRA) 1000 MG tablet Take 1,000 mg by mouth 2 times daily 4 Discontinued( Med Rec(No AVS / No eCancel)) thiamine (B-1) 100 MG tabletIndications:M ild protein-calorie malnutrition (H24) Take 1 tablet (100 mg) by mouth daily 30 tablet 09/18/2022 4 Discontinued( Med Rec(No AVS / No eCancel)) folic acid (FOLVITE) 1 MG tabletIndications:M ild protein-calorie malnutrition (H24) Take 1 tablet (1 mg) by mouth daily 30 tablet 09/18/2022 4 Discontinued( Therapy completed (No AVS)) mirabegron (MYRBETRIQ) 25 MG 24 hr tabletIndications:O veractive bladder Take 1 tablet (25 mg) by mouth daily 30 tablet 10/30/2023 4 Discontinued( Alternate therapy) celecoxib (CELEBREX) 100 MG capsuleIndications: Other chronic pain,Osteoarthritis of cervical spine, unspecified spinal osteoarthritis complication status,DDD (degenerative disc disease), lumbar Take 1 capsule (100 mg) by mouth 2 times daily 60 capsule 10/30/2023 4 Discontinued( Reorder (No AVS)) ondansetron (ZOFRAN) 4 MG tabletIndications:G astroesophageal reflux disease, unspecified whether esophagitis present Take 1 tablet (4 mg) by mouth every 8 hours as needed for nausea 20 tablet 10/30/2023 4 Discontinued( Reorder (No AVS)) omeprazole (PRILOSEC) [address] capsule 11/14/2023 4 Discontinued( Reorder (No AVS)) Active Problems Problem Noted Date Diagnosed Date Neuropathic ulcer of right foot with fat layer e xposed 11/14/2023 Cognitive impairment 06/15/2022 Dependent for mobility 06/13/2022 Dysphagia 06/13/2022 Status post transmetatarsal amputation of foot, right 06/13/2022 Falls 12/28/2021 Hx of BKA, left 02/17/2019 Smoker 02/17/2019 Muscle spasm 11/10/2018 Pre-diabetes 03/06/2017 Overview: Lab Results Component Value Date A1C 6.0 02/21/2017 A1C 6.0 04/10/2013 A1C 6.1 01/09/2013 A1C 6.7 01/18/2012 Lost 70+ pounds and A1c has returned to prediabetes. Fibromyalgia 08/24/2016 Displacement of cervical int ervertebral disc without myelopathy 01/13/2015 Lateral epicondylitis of elbow 01/13/2015 Pure hypercholesterolemia 01/13/2015 Essential hypertension 06/26/2013 Hyperlipidemia with target LDL less than 100 Peripheral neuropathy 11/28/2012 Pain management 09/12/2012 Overview: [...] pain 07/11/2011 MDD (major depressive disorder) 06/28/2011 Obesity 03/06/2011 Esophageal reflux 12/26/2007 Resolved Problems Problem Noted Date Diagnosed Date Resolved Date Acute renal failure (H24) 09/10/2022 Intraparenchymal hemorrhage of brain 09/27/2021 11/14/2023 ICH (intracerebral hemorrhage) 09/17/2021 11/14/2023 Ulcer of right foot with necrosis of bone 02/17/2019 11/14/2023 Osteomyelitis of fifth toe of right foot 02/17/2019 11/14/2023 Overview: Added automatically from request for surgery [id number] Osteomyelitis 10/10/2018 11/14/2023 Non-ST elevation (NSTEMI) my ocardial infarction 05/03/2017 11/14/2023 Acute respiratory failure with hypoxia 04/09/2017 11/14/2023 Type 2 diabetes, HbA1C goal < 8% 06/26/2013 03/06/2017 Health Long-Term 05/07/2013 09/03/2023 Overview: EMERGENCY CARE PLAN Presenting Problem Signs and Symptoms Treatment Plan Questions or concerns during clinic hours I will call the clinic directly Questions or concerns outside clinic hours I will call the 24 hour nurse line at [phone] Patient needs to schedule an appointment I will call the 24 hour scheduling team at [phone] or clinic directly Same day treatment I will call the clinic first, nurse line if after hours, urgent care and express care if needed No active Care Coordination at this time. Diabetes mellitus, type 2 04/10/2013 Falls frequently 04/10/2013 09/08/2016 Elevated glucose 01/13/2013 02/16/2020 Overview: Problem list name updated by automated process. Provider to review CARDIOVASCULAR SCREENING; LD L GOAL LESS THAN 160 05/17/2011 04/10/2013 Overview: Per quality 05/17/2011.Mannie Joe MA Encounters Date Type Department Care Team Description 11/28/2023 2:00 PM CDT Office Visit [address] [address] Enrico Felton DO Encounter for Medicare annual wellness exam (Primary Dx); Other chronic pain; Osteoarthritis of cervical spine, unspecified spinal osteoarthritis complication status; DDD (degenerative disc disease), lumbar; Screen for colon cancer; Visit for screening mammogram; Pure hypercholesterolemia; Tobacco use disorder; Elevated blood pressure reading without diagnosis of hypertension; Pre-diabetes; Gastroesophageal reflux disease, unspecified whether esophagitis present; Spasticity; Overactive bladder; Nicotine dependence, cigarettes, with unspecified nicotine-induced disorders; Need for prophylactic vaccination and inoculation against influenza; Thyroid nodule 11/28/2023 Travel 11/26/2023 1:53 PM CDT - 11/26/2023 11:59 PM CDT Hospital Encounter [facility] [address] [place] [phone] Andreas Montenegro APRN GAS FITTER APPRENTICE 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) Discharge Disposition: Home or Self Care 11/26/2023 Travel 11/14/2023 10:10 AM CDT - 11/14/2023 11:59 PM CDT Hospital Encounter [facility] [place] [address] [place] [phone] Andreas Montenegro APRN GAS FITTER APPRENTICE 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) (Primary Dx) Discharge Disposition: Home or Self Care 11/14/[address] [facility] [place] [address] [place] [phone] Andreas Montenegro APRN GAS FITTER APPRENTICE 11/14/2023 Travel 10/30/2023 MyC Medical Advice [facility] [address] [place] [address] Enrico Felton DO 10/30/2023 Telephone [facility] [address] [place] [address] Enrico Felton DO Prior Auth - Medication (ondansetron (ZOFRAN) 4 MG tablet -EPA DENIED) 10/30/2023 MyC Medical Advice [facility] [address] [place] [address] Enrico Felton DO 10/30/2023 Refill [facility] [address] [place] [address] Enrico Felton DO Refill Request 10/09/2023 [facility] Medical Advice [facility] [address] [place] [address] Melida Pickering CMA 10/08/2023 Telephone [facility] [address] [place] [address] Enrico Felton DO Panel Management (mammo) 09/28/2023 MyC Medical Advice [facility] [address] [place] [phone] Melida Pickering COMMUNITY RESOURCE OFFICER 09/28/2023 Telephone [facility] [address] [place] [phone] Enrico Felton DO Panel Management (pap) 09/13/2023 11:00 AM CDT Office Visit [facility] [address] [place] [address] Wendy Agustin APRN GAS FITTER APPRENTICE Penetrating foot wound, right, initial encounter (Primary Dx); Overactive bladder 09/13/[address] [facility] [place] [address] [place] [address] [place], Wound Healing Referral (Foot Wound) 09/13/2023 Travel from Last 3 Months Immunizations Name Administration Dates Next Due COVID-19 Monovalent 18+ (Moderna) 10/12/2021,07/2020,08/23/2020 Influenza (H1N1) 04/01/2009 Influenza (IIV3) PF 12/21/2011, 9,12/26/2007,2006,02/02/2005 Influenza Vaccine 18-64 (Flublok) 02/17/2019 Influenza Vaccine 65+ (Fluzone HD) 02/16/2017 Influenza Vaccine >6 months,quad, PF 12/29/2021, 02/21/2017,02/11/2016 Influenza Vaccine Trivalent (FluBlok) 11/28/2023 Pneumococcal 20 valent Conju gate (Prevnar 20) 02/20/2022 Pneumococcal 23 valent 04/22/2009 TD,PF 7+ (Tenivac) 01/15/2002 TDAP (Adacel,Boostrix) 04/03/2023,02/20/2022 TDAP Vaccine (Adacel) 12/21/2011 Zoster recombinant adjuvante [...] Used Date Smoking Tobacco: Every Day Cigarettes Passive Smoke Exposure: Current Smokeless Tobacco: Never Tobacco Cessation:Ready to Q uit: No; Counseling Given: No Alcohol Use Standard Drinks/Week Comments No 0 (1 standard drink = 0.6 oz pur e alcohol) Social Connection and Isolation Panel [NHANES] A nswer Date Recorded Frequency of Communication with Friends and Fami ly Not on file 11/28/2023 How often do you get together with friends or re latives? Once a week 11/28/2023 Attends [employer] Services Not on file 11/27 Active Member of Clubs or Organizations Not on f ile 11/28/2023 Attends Club or Organization Meetings Not on rod e 11/28/2023 Marital Status Not on file 11/28/2023 AUDIT-C Answer Date Recorded Q1: How often do you have a drink containing alcohol? Never 02/20/2022 Q2: How many drinks containi ng alcohol do you have on a typical day when you are drinking? Patient does not drink Q3: How often do you have si x or more drinks on one occasion? Never 02/20/2022 PHQ-2 Answer Date Recorded PHQ-2 Score 1 11/28/2023 [facility] - Occupational Stress Questionnaire Answer Date Recorded Do you feel stress - tense, restless, nervous, or anxious, or unable to sleep at night because your mind is troubled all the time - these days? Not at all 11/28/2023 Exercise Vital Sign Answer Date Recorde d On average, how many days pe r week do you engage in moderate to strenuous exercise (like a brisk walk)? 0 days Minutes of Exercise per Session Not on file 11/28/2023 Adolescent Education Answer Date Record ed Getting School Help Needed Not on file 12/20 Food Insecurity Answer Date Recorded Within the past 12 months, d id you worry that your food would run out before you got money to buy more? No 11/28/2023 Within the past 12 months, d id the food you bought just not last and you didn? t have money to get more? No 11/28/2023 Housing Stability Answer Date Recorded Do you have housing? ([place] is defined as stable permanent housing and does not include staying ouside in a car, in a tent, in an abandoned building, in an overnight half-way, or couch-surfing.) Yes 11/28/2023 Are you worried about losing your housing? No 11/28/2023 Financial Resource Strain Answer Date R ecorded Within the past 12 months, h ave you or your family members you live with been unable to get utilities (heat, electricity) when it was really needed? No 11/28/2023 Transportation Needs Answer Date Record ed Within the past 12 months, h as lack of transportation kept you from medical appointments, getting your medicines, non-medical meetings or appointments, work, or from getting things that you need? No 11/28/2023 Interpersonal Safety Answer Date Record ed Do you feel physically and e motionally safe where you currently live? Yes 11/28/2023 Within the past 12 months, h ave you been hit, slapped, kicked or otherwise physically hurt by someone? No 11/28/2023 Within the past 12 months, h ave you been humiliated or emotionally abused in other ways by your partner or ex-partner? No 11/28/2023 Sex and Gender Information Value Date Recorded Sex Assigned at Not on file Gender Identity Not on file Sexual Orientation Not on file Last Filed Vital Signs Vital Sign Reading Time Taken Comments Blood Pressure 153/80 11/28/2023 1:50 PM CDT Pulse 57 11/28/2023 1:48 PM CDT Temperature 36.6 ??C (97.9 ??F) 11/28/2023 1:48 PM CD T Respiratory Rate 18 09/13/2023 10:2 3 AM CDT Oxygen Saturation 95% 11/28/2023 1:48 PM CDT Inhaled Oxygen Concentration - - Weight 94.7 kg (208 lb 11.2 oz) 11/28/2023 1:48 PM CDT Height 175.3 cm (5' 9) 11/28/2023 1:48 PM CDT Body Mass Index 30.82 11/28/2023 1:48 PM CDT Plan of Treatment Upcoming Encounters Date Type Department Care Team (Late st Contact Info) Description 12/21/2023 2:00 PM CDT Appointment [facility] [address] [place] [address] Kingsley Westbrook, DPBharath [address] [place], [place] [phone] Health Maintenance Due Date Last Done Comments CT COLONOGRAPHY 1962 FLEX SIG 1962 sDNA (Cologuard) 1962 COLONOSCOPY 1972 HEPATITIS A IMMUNIZATION (1 of 2 - Risk 2-dose series) 1981 COLORECTAL CANCER SCREENING 07/19/2019 FIT 07/19/2019 07/18/2018, 08/18, 01/16/2013 HPV TEST 08/22/2021 08/22/2016 PAP 08/22/2021 08/22/2016, 11/0 03/2011, 01/30/2008 LUNG CANCER SCREENING 12/04/2021 12/04/2020, 018 MAMMO SCREENING 09/07/2022 09/07/2020, 03/07/2011 RSV VACCINE (1 - Risk 60-74 years 1-dose series) 2022 Medicare Annual MTM Pharmacist Visit (once per calendar year) 2023 COVID-19 Vaccine ( season) 2023 10/12/2021, 09/20/2020, 08/23/2020 PHQ-9 05/27/2024 11/28/2023, 08/18, 02/20/2022, Additional history exists NICOTINE/TOBACCO CESSATION COUNSELING Q 1 YR 09/12/2024 09/13/2023, 02/20/2022, 06/21/2018, Additional history exists ANNUAL REVIEW OF HM ORDERS 11/27/202411/27, 02/20/2022, 02/16/2020 BMP 11/27/2024 11/28/2023, 0 04/2022, 09/16/2022, Additional history exists LIPID 11/27/2024 11/28/2023, 1207/2021, 06/21/2018, Additional history exists MEDICARE ANNUAL WELLNESS VISIT 11/27/2024 11/28/2023, 02/20/2022, 06/21/2018, Additional history exists GLUCOSE 11/27/2026 11/28/2023, 070 04/2022, 09/16/2022, Additional history exists ADVANCE CARE PLANNING 11/27/2028 11/28/2023, 022 DTAP/TDAP/TD IMMUNIZATION (4 - Td or Tdap) 04/03/2033 04/03/2023, 02/20/2022, 12/21/2011, Additional history exists HEPATITIS C SCREENING Completed 04/05/2017, 017 DEPRESSION ACTION PLAN Completed 8, 11/12/2012, 11/23/2011 HIV SCREENING Completed 02/20/2022 Pneumococcal Vaccine: Pediatrics (0 to 5 Years) and At-Risk Patients (6 to 64 Years) Completed 02/20/2022, 04/22/2009 ZOSTER IMMUNIZATION Completed 02/20/2022, INFLUENZA VACCINE Completed 11/28/2023, , 02/17/2019, Additional history exists HPV IMMUNIZATION Aged Out No longer e [...] Author Financial Wellbeing General Yes Rosey Alexander, RENÉE Procedures Procedure Name Priority Date/Time Associated Diagnosis Comments LIPID REFLEX TO DIRECT LDL PANEL Routine 11/28/2023 2:56 PM CDT Pure hypercholesterolemia HEMOGLOBIN A1C Routine 11/28/2023 2:56 PM CDT Pre-diabetes BASIC METABOLIC PANEL Routine 11/28/2023 2:56 PM CDT Elevated blood pressure reading without diagnosis of hypertension Pre-diabetes US MCKAYLA DOPPLER NO EXERCISE, 1-2 LEVELS, RIGHT Routine 11/26/2023 2:12 PM CDT 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) HIV ANTIGEN ANTIBODY COMBO Routine 02/20/2022 3:46 PM INSPECTOR BALANCE TRUING Screening for HIV (human immunodeficiency virus) CT CHEST W CONTRAST STAT 12/04/2020 3:48 PM CDT MA SCREENING BILATERAL W/ AMILCAR Routine 09/07/2020 1:02 PM CDT Screening mammogram for high-risk patient FECAL COLORECTAL CANCER SCREEN FIT Routine 07/18/2018 9:00 AM CDT Screen for colon cancer HEPATITIS C ANTIBODY Routine 04/05/2017 6:35 AM INSPECTOR BALANCE TRUING HPV HIGH RISK TYPES DNA CERVICAL Routine 08/22/2016 2:30 PM CDT Dysuria PAP IMAGED THIN LAYER SCREEN Routine 08/22/2016 2:29 PM CDT Screening for malignant neoplasm of cervix from Last 3 Months or Most Recently Relevant to Health Maintenance Results * (ABNORMAL) Lipid panel reflex to direct LDL Non-fasting (11/28/2023 2:56 PM CDT) Cholesterol 264(H) <200 mg/dL 11/29/2023 1:56 PM CDT [facility] Triglycerides 185(H) <150 mg/dL 11/29/2023 1:56 PM CDT [facility] Direct Measure HDL 36(L) >=50 mg/dL 11/29/2023 1:56 PM CDT [facility] LDL Cholesterol Calculated 191(H) <100 mg/dL 11/29/2023 1:56 PM CDT [facility] Non HDL Cholesterol 228(H) <130 mg/dL 11/29/2023 1:56 PM CDT [facility] Patient Fasting > 8hrs? Unknown 11/29/2023 1:56 PM CDT [facility] Blood BLOOD SPECIMEN / Unknown Venipuncture / Unknown 11/28/2023 2:56 PM CDT 11/28/2023 2:56 PM CDT Narrative [facility] - 11/29/2023 1:56 PM CDT Cholesterol Desirable: < 200 mg/dL Borderline High: 200 - 239 mg/dL High: >= 240 mg/dL Triglycerides Normal: < 150 mg/dL Borderline High: 150 - 199 mg/dL High: 200-499 mg/dL Very High: >= 500 mg/dL Direct Measure HDL Female: >= 50 mg/dL Male: >= 40 mg/dL LDL Cholesterol Desirable: < 100 mg/dL Above Desirable: 100 - 129 mg/dL Borderline High: 130 - 159 mg/dL High: ??160 - 189 mg/dL Very High: >= 190 mg/dL Non HDL Cholesterol Desirable: < 130 mg/dL Above Desirable: 130 - 159 mg/dL Borderline High: 160 - 189 mg/dL High: 190 - 219 mg/dL Very High: >= 220 mg/dL Enrico Felton DO LAB - BLOOD ORDERABL ES [facility] [address], [address] [place] [address] * (ABNORMAL) Hemoglobin A1c (11/28/2023 2:56 PM CDT) Hemoglobin A1C 6.1(H) 0.0 - 5.6 % 11/28/2023 3:03 PM CDT [facility] Comment: Normal <5.7% Prediabetes 5.7-6.4% ?? Diabetes 6.5% or higher Note: Adopted from ADA consensus guidelines. Blood BLOOD SPECIMEN / Unknown Venipuncture / Unknown 11/28/2023 2:56 PM CDT 11/28/2023 2:56 PM CDT Enrico Felton DO LAB - BLOOD ORDERABL [facility] [address] [facility] (no room number, 1st floor of clinic) [place] [address] * (ABNORMAL) Basic metabolic panel (11/28/2023 2:56 PM CDT) Sodium 140 135 - 145 mmol/L 11/29/2023 1:56 PM CDT [facility] Potassium 4.3 3.4 - 5.3 mmol/L 11/29/2023 1:56 PM CDT [facility] Chloride 103 98 - 107 mmol/L 11/29/2023 1:56 PM CDT [facility] Carbon Dioxide (CO2) 27 22 - 29 mmol/L 11/29/2023 1:56 PM CDT [facility] Anion Gap 10 7 - 15 mmol/L 11/29/2023 1:56 PM CDT [facility] Urea Nitrogen 25.0(H) 8.0 - 23.0 mg/dL 11/29/2023 1:56 PM CDT [facility] Creatinine 1.25(H) 0.51 - 0.95 mg/dL 11/29/2023 1:56 PM CDT [facility] GFR Estimate 49(L) >60 mL/min/1.7 3m2 11/29/2023 1:56 PM CDT [facility] Comment:eGFR calculated usin 2020 CKD-EPI equation. Calcium 9.0 8.8 - 10.4 mg/dL 11/29/2023 1:56 PM CDT [facility] Comment:Reference intervals for this test were updated on 10/02/2023 to reflect our healthy population more accurately. There may be differences in the flagging of prior results with similar values performed with this method. Those prior results can be interpreted in the context of the updated reference intervals. Glucose 115(H) 70 - 99 mg/dL 11/29/2023 1:56 PM CDT [facility] Patient Fasting > 8hrs? Unknown 11/29/2023 1:56 PM CDT [facility] Blood BLOOD SPECIMEN / Unknown Venipuncture / Unknown 11/28/2023 2:56 PM CDT 11/28/2023 2:56 PM CDT Enrico Felton DO LAB - BLOOD ORDERABL ES [facility] [address] [facility], [address] [place] [phone] * US MCKAYLA Doppler No Exercise 1-2 Levels Right (11/26/2023 2:12 PM CDT) Anatomical Region Laterality Modality Extremity Ultrasound Impressions 11/26/2023 2:44 PM CDT IMPRESSION: RIGHT LOWER EXTREMITY: MCKAYLA at rest is normal. Multiphasic tibial waveforms. JEZ MORTON MD Narrative 11/26/2023 2:44 PM CDT [facility] DATE: 11/26/2023 EXAM: RESTING ANKLE-BRACHIAL INDICES (ABIs) INDICATION: Longtime smoker, prediabetes, neuropathy, plantar foot ulcer of right foot with fat layer exposed. History of right TMA and left BKA. Peripheral arterial disease. COMPARISON: MCKAYLA 10/11/2018. MCKAYLA FINDINGS: Pressure measurements in mmHg RIGHT Brachial: 183 Ankle (PT): 180, 0.98 Ankle (DP): 171, 0.93 Status post right TMA. LEFT Brachial: 180 Status post left BKA. WAVEFORMS: Multiphasic waveforms in the right posterior tibial and dorsalis pedis arteries. Procedure Note Jez Morton MD - 11/26/2023 [facility] DATE: 11/26/2023 EXAM: RESTING ANKLE-BRACHIAL INDICES (ABIs) INDICATION: Longtime smoker, prediabetes, neuropathy, plantar foot ulcer of right foot with fat layer exposed. History of right TMA and left BKA. Peripheral arterial disease. COMPARISON: MCKAYLA 10/11/2018. MCKAYLA FINDINGS: Pressure measurements in mmHg RIGHT Brachial: 183 Ankle (PT): 180, 0.98 Ankle (DP): 171, 0.93 Status post right TMA. LEFT Brachial: 180 Status post left BKA. WAVEFORMS: Multiphasic waveforms in the right posterior tibial and dorsalis pedis arteries. IMPRESSION: RIGHT LOWER EXTREMITY: MCKAYLA at rest is normal. Multiphasic tibial waveforms. JEZ MORTON MD Andreas Montenegro DIGITAL MEDIA DIRECTOR GAS FITTER APPRENTICE IMG US ORDERAB LES * HIV Antigen Antibody Combo (02/20/2022 3:46 PM INSPECTOR BALANCE TRUING) HIV Antigen Antibody Combo Nonreactive Nonreactive 02/21/2022 5:16 PM INSPECTOR BALANCE TRUING [facility] DO Comment:HIV-1 p24 Ag & HIV-1 /HIV-2 Ab Not Detected Blood STRUCTURE OF LEFT UPPER LIMB / Unknown Venipuncture / Unknown 02/20/2022 3:46 PM INSPECTOR BALANCE TRUING 02/20/2022 3:47 PM INSPECTOR BALANCE TRUING Enrico Correae DO LAB - BLOOD ORDERABL ES [facility] [address], [address] [phone] * CT Chest w Contrast (12/04/2020 3:48 PM CDT) Anatomical Region Laterality Modality Chest, SUBRAD CT BODY, UMP CT CHEST, RAD CT Computed Tomography Impressions 12/04/2020 4:10 PM CDT IMPRESSION: There is large right anterior chest wall soft tissue hematoma underlying the right pectoral muscle. Associated fat stranding of the right breast is also noted. No evidence of acute osseous pathology. ADRY ALBERT MD SYSTEM ID: ??[id number] Narrative 12/04/2020 4:[address] CHEST W CONTRAST ??12/04/2020 3:48 PM HISTORY: ??Swelling and ecchymosis across the anterior chest wall. TECHNIQUE: Scans obtained from the apices through the diaphragm with IV contrast. 80mL Isovue-370 IV injected. Radiation dose for this scan was reduced using automated exposure control, adjustment of the mA and/or kV according to patient size, or iterative reconstruction technique. COMPARISON: ??Chest x-ray on 04/26/[address] on 04/12/2017. FINDINGS: Chest/mediastinum: No cardiomegaly or significant pericardial effusion. No significant mediastinal, hilar or axillary lymphadenopathy. Mild atherosclerotic vascular calcification of the coronary arteries. Lungs and pleura: No pleural effusion or pneumothorax. Bibasilar pulmonary opacities, likely atelectasis. Upper abdomen: Limited evaluation of the upper abdomen due to lack of coverage. Heterogenous appearance of the upper pole of the left kidney, could be related to prior infectious or ischemic insult. Bones and soft tissue: There is approximately 9.8 x 5.3 x 12.7 soft tissue hematoma in the right anterior chest wall underlying the right pectoral muscle with associated fat stranding of the right breast. No evidence of underlying acute osseous pathology. Post surgical changes of lower cervical spine fusion. Multilevel degenerative changes of the spine. Procedure Note Adry Albert MD - 12/04/2020 CT CHEST W CONTRAST 12/04/2020 3:48 PM HISTORY: Swelling and ecchymosis across the anterior chest wall. TECHNIQUE: Scans obtained from the apices through the diaphragm with IV contrast. 80mL Isovue-370 IV injected. Radiation dose for this scan was reduced using automated exposure control, adjustment of the mA and/or kV according to patient size, or iterative reconstruction technique. COMPARISON: Chest x-ray on 04/26/[address] on 04/12/2017. FINDINGS: Chest/mediastinum: No cardiomegaly or significant pericardial effusion. No significant mediastinal, hilar or axillary lymphadenopathy. Mild atherosclerotic vascular calcification of the coronary arteries. Lungs and pleura: No pleural effusion or pneumothorax. Bibasilar pulmonary opacities, likely atelectasis. Upper abdomen: Limited evaluation of the upper abdomen due to lack of coverage. Heterogenous appearance of the upper pole of the left kidney, could be related to prior infectious or ischemic insult. Bones and soft tissue: There is approximately 9.8 x 5.3 x 12.7 soft tissue hematoma in the right anterior chest wall underlying the right pectoral muscle with associated fat stranding of the right breast. No evidence of underlying acute osseous pathology. Post surgical changes of lower cervical spine fusion. Multilevel degenerative changes of the spine. IMPRESSION: There is large right anterior chest wall soft tissue hematoma underlying the right pectoral muscle. Associated fat stranding of the right breast is also noted. No evidence of acute osseous pathology. ADRY ALBERT MD SYSTEM ID: [id number] Cooper Waters MD IMG CT ORDERABLES * MA Screen Bilateral w/Amilcar (09/07/2020 1:02 PM CDT) Anatomical Region Laterality Modality Breast Bilateral Mammography Impressions 09/07/2020 2:14 PM CDT IMPRESSION: BI-RADS CATEGORY: 1 - ??NEGATIVE. RECOMMENDED FOLLOW-UP: Annual Mammography. The patient will be notified of the results. EH LOCKETT MD Narrative 09/07/2020 2:14 PM CDT Examination: Bilateral digital screening mammography with computer aided detection including digital breast tomosynthesis, 09/07/2020 1:02 PM. Comparison: None available. History: No current breast concerns. Mother and sister with breast cancer. BREAST DENSITY: Scattered fibroglandular densities. COMMENTS: ??No suspicious finding. Procedure Note Eh Lockett MD - 09/07/2020 Examination: Bilateral digital screening mammography with computer aided detection including digital breast tomosynthesis, 09/07/2020 1:02 PM. Comparison: None available. History: No current breast concerns. Mother and sister with breast cancer. BREAST DENSITY: Scattered fibroglandular densities. COMMENTS: No suspicious finding. IMPRESSION: BI-RADS CATEGORY: 1 - NEGATIVE. RECOMMENDED FOLLOW-UP: Annual Mammography. The patient will be notified of the results. EH LOCKETT MD Enrico Felton DO IMG MAMMOGRAPHY DANIELLE CASTILLO * Fecal colorectal cancer screen FIT - Future (S+30) (07/18/2018 9:00 AM CDT) Occult Blood Scn FIT Negative NEG^Negati ve 07/19/2018 9:39 PM CDT [facility] Stool specimen (specimen) 07/18/2018 9:00 AM CDT 07/19/2018 8:00 PM CDT Madhuri Deleon APRN GAS FITTER APPRENTICE LAB - STOO LS ORDERABLES [facility] [address] [place] [address] * Hepatits C antibody (04/05/2017 6:35 AM INSPECTOR BALANCE TRUING) Hepatitis C Antibody Nonreactive NR^Nonre active 04/05/2017 4:01 PM INSPECTOR BALANCE TRUING [facility] Comment: Assay performance characteristics have not been established for newborns, infants, and children Blood specimen (specimen) 04/05/2017 6:35 AM INSPECTOR BALANCE TRUING 04/05/2017 6:59 AM INSPECTOR BALANCE TRUING Ana Lieberman MD LAB - BLOOD O RDERABLES [facility] [address] [place] [address] * HPV High Risk Types DNA Cervical (08/22/2016 2:30 PM CDT) HPV 16 DNA Negative NEG [facility] HPV 18 DNA Negative NEG [facility] Other HR HPV Negative NEG [facility] ITY [facility] Final Diagnosis This patient's sample is negative for HPV DNA. (Note) METHODOLOGY: ??The Will mery 4800 system uses automated extraction, simultaneous amplification of HPV (L1 region) and beta-globin, followed by ??real time detection of fluorescent labeled HPV and beta globin using specific oligonucleotide probes . The test specifically identifies types HPV 16 DNA and HPV 18 DNA while concurrently detecting the rest of the high risk types (31, 33, 35, 39, 45, 51, 52, 56, 58, 59, 66 or 68). COMMENTS: ??This test is not intended for use as a screening device for women under age 30 with normal cervical cytology. ??Results should be correlated with cytologic and histologic findings. Close clinical followup is recommended. This test was developed and its performance characteristics determined by the [facility], [facility]. It has not been cleared or approved by the FDA. The laboratory is regulated under CLIA as qualified to perform high-complexity testing. This test is used for clinical purposes. It should not be regarded as investigational or for research. [facility] Specimen Description Cervical Cells [id number] [facility] 08/22/2016 2:30 PM CDT 08/22/2016 2:35 PM CDT Madhuri Deleon APRN GAS FITTER APPRENTICE LAB - BLOO D ORDERABLES [address] [address] * Pap imaged thin layer screen with HPV - recommended age 30 - 65 years (select HPV order below) (08/22/2016 2:29 PM CDT) PAP NIL COPATH Copath Report Patient Name: JATINDER DE LA PAZ MR#: [id number] Specimen #: [id number] Collected: 08/22/2016 Received: 08/24/2016 Reported: 08/28/2016 10:33 Ordering Phy(s): MADHURI DELEON For improved result formatting, select 'View Enhanced Report Format' under Linked Documents section. SPECIMEN/STAIN PROCESS: Pap imaged thin layer prep screening (Surepath, FocalPoint with guided screening) ? Pap-Cyto x 1, HPV ordered x 1 SOURCE: Cervical, endocervical Pap imaged thin layer prep screening (Surepath, FocalPoint with guided screening) SPECIMEN ADEQUACY: Satisfactory for evaluation. -Transformation zone component absent. CYTOLOGIC INTERPRETATION: Negative for intraepithelial lesion or malignancy Electronically signed out by: BRENNA Hong (ASCP) Processed and screened at [facility], [facility] CLINICAL HISTORY: LMP: 09/10/2012 Post Menopausal, Previous normal pap Date of Last Pap: 01/18/2012, Papanicolaou Test Limitations: ??Cervical cytology is a screening test with limited sensitivity; regular screening is critical for cancer prevention; Pap tests are primarily effective for the diagnosis/preventi on of squamous cell carcinoma, not adenocarcinomas or other cancers. 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 note; left foot tissue 10/08/16 10/11/2018 02/27/2019 Advance Directives For more information, please contact: [phone] * Full Code (Latest Code Status on File) Date Activated Date Inactivated Comments 09/10/2022 12:39 AM 09/17/2022 8:36 PM All basic an d advanced life-sustaining interventions are performed as appropriate Question Answer Comments Code status determined by: Discussion with patie nt/ legal decision maker * Full Code Date Activated Date Inactivated Comments 10/25/2021 8:19 AM 09/09/2022 7:53 PM Question Answer Comments Code status determined by: Discussion with patie nt/ legal decision maker * Full Code Date Activated Date Inactivated Comments 09/27/2021 3:02 PM 10/25/2021 8:19 AM All basic and advanced life-sustaining interventions are performed as appropriate Question Answer Comments Code status determined by: Discussion with patie nt/ legal decision maker * Full Code Date Activated Date Inactivated Comments 09/17/2021 7:51 PM 09/27/2021 2:52 PM All basic and advanced life-sustaining interventions are performed as appropriate Question Answer Comments Code status determined by: Discussion with patie nt/ legal decision maker * Full Code Date Activated Date Inactivated Comments 02/28/2019 10:49 AM 12/04/2020 1:25 PM Question Answer Comments Code status determined by: Discussion with patie nt/legal decision maker Care Teams Technical Specialist Cytology Relationship Specialty [place] [address] [place] [address] PCP - General Family Medicine 06/30/22 Edu Crawford DPM [address] [facility] [address] [place], [place] [address] Podiatry 10/18/16 Maddie Mae Personal Advocate & Liaison (PAL) Family Medicine 12/28/21 Wendy Agustin APRN GAS FITTER APPRENTICE [address] [facility] [address] [place] [address] Assigned PCP 10/09/23
--- OUTSIDE RECORDS SUMMARY | 2023-12-12 00:40 | XMS_ITS | Continuity of Care Document ---
Author Organization [facility] Address [address] [address] [place] [address] Phone Care Team Providers Care Racing Board Marker Name Role Phone Ana Lieberman MD Unavailable Unavaila ble Procedures Procedure Date Init Hosp-da E&m Mod Severity 8 Advance Directives Directive Yes / No Effective Date File Name No Information Encounters Encounter Description Practice Location Reason(s) For Visit Diagnoses Date Provider Providers Copied on Encounter [facility], [address] [address], [place], [place], [id number], [place] tel:[phone] [facility] No Information Luisana Bill [address] [facility], [place] [address], [place], [place], [id number], [place]. tel:[phone] Init Hosp-da E&m Mod Severity [facility], [address] [address], [place], [place], [id number], [place] tel:[phone] [facility] No Information Luisana Bill [address] [facility], [facility] [address], [place], [place], [id number], [place]. tel:[phone] Referring Provider: Ana Lieberman MD, [address] [facility] [address], [place], [address] . tel:[phone] Family History Family Member Type Diagnosis Age At Onset No Information Payers Payer name Insurance type Covered green [...]
[2023-12-12 00:41] LABS: Slide Review Reflex No
--- OUTSIDE RECORDS SUMMARY | 2023-12-12 00:41 | XMS_ITS | Encounter Summary ---
Author Organization [facility] Address [address] [place] [address]. [place] [address] Care Team Providers Care Analysis Tester Name Role Phone Edu Crawford DPM Unavailable [phone] Maddie Mae Unavailable Unavailable Enrico Felton DO Primary Care Provider [phone] Wendy Agustin APRN ROUGHER FOR CEMENT Unavailable [phone] Encounter Details Date Type Department Care Team (Late st Contact Info) Description 10/30/2023 MyC Medical Advice [facility] [id number] [place] [address] [place] [id number] [place] [address] Social History Tobacco Use Types Packs/Day Years Used Date Smoking Tobacco: Every Day Cigarettes Passive Smoke Exposure: Current Smokeless Tobacco: Never Alcohol Use Standard Drinks/Week [...] Never 02/20/2022 How often do you attend restoration or advent serv ices? Patient declined 02/20/2022 Do you belong to any clubs o r organizations such as restoration groups, unions, fraternal or athletic groups, or [...] PHQ-2 Answer Date Recorded PHQ-2 Score 1 09/13/2023 [facility] - Occupational Stress Questionnaire Answer Date [...] in a jail (including now)? No 02/20/2022 Adolescent Education Answer Date Record ed Getting School Help Needed Not on file 12/20 Interpersonal Safety Answer Date Record ed Do you feel physically and e motionally safe where you currently live? Yes 09/13/2023 Within the past 12 months, h ave you been hit, slapped, kicked or otherwise physically hurt by someone? No 09/13/2023 Within the past 12 months, h ave you been humiliated or emotionally abused in other ways by your partner or ex-partner? No 09/13/2023 Sex and Gender Information Value Date Recorded Sex Assigned at Not on file Gender Identity Not on file Sexual Orientation Not on file documented as of this encounter Plan of Treatment Upcoming Encounters Date Type Department Care Team (Late st Contact Info) Description 12/21/2023 2:00 PM CDT Appointment [facility] [address] [place] [address] Kingsley Westbrook DPM [address] [place] [address] documented as of this encounter Goals Goal Patient Goal Type Associated Problems Recent Progress Patient-Stated? 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; left foot tissue 10/08/16 10/11/2018 02/27/2019 Assessment Noted Time PHQ-9 Depression Total Score: 1 09/13/19 24 10:02 AM CDT documented as of this encounter Care Teams Analysis Tester Relationship Specialty [place] [address] [place] [address] PCP - General Family Medicine 06/30/22 Edu Crawford DPM [address] [facility] [address] [place] [address] Podiatry 10/18/16 Maddie Mae Personal Advocate & Liaison (PAL) Family Medicine 12/28/21 Wendy Agustin APRN ROUGHER FOR CEMENT [address] [place] [address] Assigned PCP 10/09/23 documented as of this encounter
--- OUTSIDE RECORDS SUMMARY | 2023-12-12 00:41 | XMS_ITS | Encounter Summary ---
Author Organization [facility] Address [address] [place] [address] Care Team Providers Care First Leveler Name Role Phone Edu Crawford DPBharath Unavailable [phone] Maddie Mae Unavailable Unavailable Enrico Felton DO Primary Care Provider [phone] Wendy Agustin APRN NOZZLE OPERATOR Unavailable [phone] Encounter Details Date Type Department Care Team (Latest Contact Info) Description 11/26/2023 Travel Social History Tobacco Use Types Packs/Day [...] Never 02/20/2022 How often do you attend anabaptist or samaritan serv ices? Patient declined 02/20/2022 Do you belong to any clubs o r organizations such as anabaptist groups, unions, fraternal or athletic groups, or [...] Answer Date Recorded PHQ-2 Score 1 09/13/2023 [facility] - Occupational Stress Questionnaire Answer [...] a senior living (including now)? No 02/20/2022 Adolescent Education Answer Date Record ed Getting School Help Needed Not on file 12/20 Interpersonal Safety Answer Date Record ed Do you feel physically and e motionally safe where you currently live? Yes 11/14/2023 Within the past 12 months, h ave you been hit, slapped, kicked or otherwise physically hurt by someone? No 11/14/2023 Within the past 12 months, h ave you been humiliated or emotionally abused in other ways by your partner or ex-partner? No 11/14/2023 Sex and Gender Information Value Date Recorded Sex Assigned at Not on file Gender Identity Not on file Sexual Orientation Not on file documented as of this encounter Plan of Treatment Upcoming Encounters Date Type Department Care Team (Late st Contact Info) Description 12/21/2023 2:00 PM CDT Appointment [facility] [address] [place] [phone] Kingsley Westbrook DPM [address] [place] [id number] documented as of this encounter Goals Goal Patient Goal Type Associated Problems Recent Progress Patient-Stated? Author Financial Wellbeing General Yes Rosey Alexander, SECOND MATE documented as of this encounter Visit Diagnoses Not on filedocumented in this encounter Additional Health Concerns Infection Onset Date Last Indicated Resolved Time 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 per 09/01/16 terminal superintendent note; left foot tissue 10/08/16 10/11/2018 02/27/2019 Assessment Noted Time PHQ-9 Depression Total Score: 1 09/13/19 24 10:02 AM CDT documented as of this encounter Care Teams First Leveler Relationship Specialty [place] [address] [place] [address] PCP - General Family Medicine 06/30/22 Edu Crawford DPM [address] [facility] [address] [place] [address] Podiatry 10/18/16 Maddie Mae Personal Advocate & Liaison (PAL) Family Medicine 12/28/21 Wendy Agustin APRN NOZZLE OPERATOR [address] [facility] [address] [place] [address] Assigned PCP 10/09/23 documented as of this encounter
--- OUTSIDE RECORDS SUMMARY | 2023-12-12 00:41 | XMS_ITS | Encounter Summary ---
Author Organization [facility] Address [address] [place] [address]. [place] [address] Care Team Providers Care Is/It Project Manager Name Role Phone Mirandaclifton Edu DPM Unavailable [phone] Maddie Mae Unavailable Unavailable Enrico Felton DO Primary Care Provider [phone] Wendy Agustin APRN SURFACE MINER Unavailable [phone] Reason for Visit * Reason Onset Date Comments Prior Auth - Medication 10/30/2023 ondanset willi (ZOFRAN) 4 MG tablet -EPA DENIED Encounter Details Date Type Department Care Team (Late st Contact Info) Description 10/30/[address] [address] [place] [address] [place] [address] Prior Auth - Medication (ondansetron (ZOFRAN) 4 MG tablet -EPA DENIED) Social History Tobacco Use Types Packs/Day Years [...] How often do you attend mandaen or temple serv ices? Patient declined 02/20/2022 [...] Answer Date Recorded PHQ-2 Score 1 09/13/2023 [facility]at ional Health - Occupational Stress [...] a skilled nursing (including now)? No 02/20/2022 Adolescent Education Answer [...] encounter Miscellaneous Notes * Telephone Encounter - Helen Lucero - 10/30/2023 3:56 PM CDT Images from the original note were not included. Retail Pharmacy Prior Authorization Team PRIOR AUTHORIZATION DENIED Medication: ONDANSETRON HCL 4 MG PO TABS Insurance Company: [employer] ([facility]) - Denial Date: 10/30/2023 Denial Reason(s): REQUIRES A MEDICARE PART D MEDICALLY ACCEPTED INDICATION Appeal Information: IF THE PROVIDER WOULD LIKE TO APPEAL THIS DECISION PLEASE PROVIDE THE PA TEAM WITH A LETTER OF MEDICAL NECESSITY Patient Notified: NO documented in this encounter Plan of Treatment Upcoming Encounters Date Type Department Care Team (Late st Contact Info) Description 12/21/2023 2:00 PM CDT Appointment [facility] [place] [address] [place] [address] Kingsley Westbrook DPM [address] [place] [address] documented as of this encounter Goals Goal Patient Goal Type Associated Problems Recent Progress Patient-Stated? 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; left foot tissue 10/08/16 10/11/2018 02/27/2019 Assessment Noted Time PHQ-9 Depression Total Score: 1 09/13/19 24 10:02 AM CDT documented as of this encounter Care Teams Is/It Project Manager Relationship Specialty [place] [address] [place] [address] PCP - General Family Medicine 06/30/22 [place] [address] [facility] [address] [place] [address] Podiatry 10/18/16 Maddie Mae Personal Advocate & Liaison (PAL) Family Medicine 12/28/21 Wendy Agustin APRN SURFACE MINER [address] [facility] [address] [place] [address] Assigned PCP 10/09/23 documented as of this encounter
--- OUTSIDE RECORDS SUMMARY | 2023-12-12 00:41 | XMS_ITS | Encounter Summary ---
Author Organization [facility] Address [address] [place] [address] Care Team Providers Care Vice President Of Instruction Name Role Phone Edu Crawford DPM Unavailable [phone] Maddie Mae Unavailable Unavailable Enrico Felton DO Primary Care Provider [phone] Wendy Agustin APRN SUPPLIER DEVELOPMENT MANAGER Unavailable [phone] Encounter Details Date Type Department Care Team (Latest Contact Info) Description 11/28/2023 Travel Social History Tobacco Use Types Packs/Day [...] re latives? Once a week 11/28/2023 Attends Anabaptism Services Not on file 11/27 Active Member [...] Answer Date Recorded PHQ-2 Score 1 11/28/2023 [facility] - Occupational Stress Questionnaire Answer Date Recorded [...] Date Recorded Do you have housing? (Malcom g is defined as stable permanent housing and does not include staying ouside in a car, in a tent, in an abandoned building, in an overnight long-term, or couch-surfing.) Yes 11/28/2023 Are you worried [...] Info) Description 12/21/2023 2:00 PM CDT Appointment [facility] [place] [address] [place] [address] Kingsley Westbrook DPM [address] [place], [place] [phone] documented as of this encounter Goals Goal Patient Goal Type Associated Problems Recent Progress Patient-Stated? Author Financial Wellbeing General Yes Rosey Alexander, GOODYEAR WELTER documented as of this encounter Visit Diagnoses Not on filedocumented in this encounter Additional Health Concerns Infection Onset Date Last Indicated Resolved Time 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 per 09/01/16 press service reader note; left foot tissue 10/08/16 10/11/2018 02/27/2019 Assessment Noted Time PHQ-9 Depression Total Score: 1 11/28/19 24 1:52 PM CDT documented as of this encounter Care Teams Vice President Of Instruction Relationship Specialty [place] [address] [place] [address] PCP - General Family Medicine 06/30/22 Edu Crawford D[place] [address] [facility] [address] [place] [address] Podiatry 10/18/16 Maddie Mae Personal Advocate & Liaison (PAL) Family Medicine 12/28/21 Wendy Agustin APRN SUPPLIER DEVELOPMENT MANAGER [address] [place], [place] [address] Assigned PCP 10/09/23 documented as of this encounter
--- OUTSIDE RECORDS SUMMARY | 2023-12-12 00:41 | XMS_ITS | Encounter Summary ---
Author Organization [facility] Address [address] [place] [id number] Care Team Providers Care Postdoctoral Research Fellow Name Role Phone Edu Crawford DPBharath Unavailable [phone] Maddie Mae Unavailable Unavailable Enrico Felton DO Primary Care Provider [phone] Wendy Agustin APRN [employer]GETABLE FACTORY WORKER Unavailable [phone] Reason for Referral * Diagnostic Imaging CT Scan (Routine) - Pending Review Specialty Diagnoses / Procedures Referred By Andrés zaman Referred To Contact Radiology. Diagnoses Tobacco use disorder Nicotine dependence, cigarettes, with unspecified nicotine-induced disorders Procedures CT Chest Lung Cancer Screen [place] [address] [place] [address] Referral ID Status Reason Start Date Expiration Date V isits Requested Visits Authorized [id number] Pending Review 11/28/2023 11/27/2024 1 1 * Diagnostic Imaging Mammo (Routine) - Pending Review Specialty Diagnoses / Procedures Referred By Andrés zaman Referred To Contact Radiology. Diagnoses Visit for screening mammogram Procedures MA Screening Bilateral w/ [place] [address] [place] [address] Referral ID Status Reason Start Date Expiration Date V isits Requested Visits Authorized [id number] Pending Review 11/28/2023 11/27/2024 1 1 Reason for Visit * Reason Onset Date Comments Medicare Visit Imm/Inj 11/28/2023 Flu Shot Encounter Details Date Type Department Care Team (Latest Contact Info) Description 11/28/2023 2:00 PM CDT Office Visit [facility] [id number] [place] [address] [phone] [place] [address] [place] [address] Encounter for Medicare annual wellness exam (Primary [...] vaccination and inoculation against influenza; Thyroid nodule Social History Tobacco Use Types Packs/Day Years [...] re latives? Once a week 11/28/2023 Attends [employer] Not on file 11/27 Active Member [...] Answer Date Recorded PHQ-2 Score 1 11/28/2023 [facility] of Occupat ional [facility] - Occupational Stress Questionnaire Answer [...] in an abandoned building, in an overnight fci, or couch-surfing.) Yes 11/28/2023 Are you worried [...] on file documented as of this encounter Last Filed Vital Signs Vital Sign Reading Time Taken Comments Blood Pressure 153/80 11/28/2023 1:50 PM CDT Pulse 57 11/28/2023 1:48 PM CDT Temperature 36.6 ??C (97.9 ??F) 11/28/2023 1:48 PM CD T Respiratory Rate - - Oxygen Saturation 95% 11/28/2023 1:48 PM CDT Inhaled Oxygen Concentration - - Weight 94.7 kg (208 lb 11.2 oz) 11/28/2023 1:48 PM CDT Height 175.3 cm (5' 9) 11/28/2023 1:48 PM CDT Body Mass Index 30.82 11/28/2023 1:48 PM CDT documented in this encounter Patient Instructions * Patient Instructions* Enrico Felton, - 11/28/2023 2:00 PM CDT Images from the original note were not included. You can get most recommended vaccines through a pharmacy for less money than at clinic while using Medicare related insurance. The vaccines you are due for are RSV, hepatitis A, flu, and COVID-19. The pharmacy should be able to look up what vaccinations you are due for through the [place] Immunization Information Connection database. Patient Education Preventive Care Advice This is general advice given by our system to help you stay healthy. However, your care team may have specific advice just for you. Please talk to your care team about your preventive care needs. Nutrition Eat 5 or more servings of fruits and vegetables each day. Try wheat bread, brown rice and whole grain pasta (instead of white bread, rice, and pasta). Get enough calcium and vitamin D. Check the label on foods and aim for 100% of the FORESTER SILVIC[employer]URE (recommendeddaily allowance). Lifestyle Exercise at least 150 minutes each week (30 minutes a day, 5 days a week). Do muscle strengthening activities 2 days a week. These help control your weight and prevent disease. No smoking. Wear sunscreen to prevent skin cancer. Have a dental exam and cleaning every 6 months. Yearly exams See your health care team every year to talk about: Any changes in your health. Any medicines your care team has prescribed. Preventive care, family planning, and ways to prevent chronic diseases. Shots (vaccines) HPV shots (up to age 26), if you've never had them before. Hepatitis B shots (up to age 59), if you've never had them before. COVID-19 shot: Get this shot when it's due. Flu shot: Get a flu shot every year. Tetanus shot: Get a tetanus shot every 10 years. Pneumococcal, hepatitis A, and RSV shots: Ask your care team if you need these based on your risk. Shingles shot (for age 50 and up) General health tests Diabetes screening: Starting at age 35, Get screened for diabetes at least every 3 years. If you are younger than age 35, ask your care team if you should be screened for diabetes. Cholesterol test: At age 39, start having a cholesterol test every 5 years, or more often if advised. Bone density scan (DEXA): At age 50, ask your care team if you should have this scan for osteoporosis (brittle bones). Hepatitis C: Get tested at least once in your life. STIs (sexually transmitted infections) Before age 24: Ask your care team if you should be screened for STIs. After age 24: Get screened for STIs if you're at risk. You are at risk for STIs (including HIV) if: You are sexually active with more than one person. You don't use condoms every time. You or a partner was diagnosed with a sexually transmitted infection. If you are at risk for HIV, ask about PrEP medicine to prevent HIV. Get tested for HIV at least once in your life, whether you are at risk for HIV or not. Cancer screening tests Cervical cancer screening: If you have a cervix, begin getting regular cervical cancer screening tests starting at age 21. Breast cancer scan (mammogram): If you've ever had breasts, begin having regular mammograms starting at age 40. This is a scan to check for breast cancer. Colon cancer screening: It is important to start screening for colon cancer at age 45. Have a colonoscopy test every 10 years (or more often if you're at risk) Or, ask your provider about stool tests like a FIT test every year or Cologuard test every 3 years. To learn more about your testing options, visit: . For help making a decision, visit: https://bit.ly/qu81012. Prostate cancer screening test: If you have a prostate, ask your care team if a prostate cancer screening test (PSA) at age 55 is right for you. Lung cancer screening: If you are a current or former smoker ages 50 to 80, ask your care team if ongoing lung cancer screenings are right for you. For informational purposes only. Not to replace the advice of your health care provider. Copyright ?? 2022 [facility] [employer]. All rights reserved. Clinically reviewed by the [employer] [facility]. Kiddie Kist [id number] - REV 04/11. Bladder Training: Care Instructions Your Care Instructions Bladder training is used to treat urge incontinence and stress incontinence. Urge incontinence means that the need to urinate comes on so fast that you can't get to a toilet in time. Stress incontinence means that you leak urine because of pressure on your bladder. For example, it may happen when you laugh, cough, or lift something heavy. Bladder training can increase how long you can wait before you have to urinate. It can also help your bladder hold more urine. And it can give you better control over the urge to urinate. It is important to remember that bladder training takes a few weeks to a few months to make a difference. You may not see results right away, but don't give up. Follow-up care is a sheriff part of your treatment and safety. Be sure to make and go to all appointments, and call your doctor if you are having problems. It's also a good idea to know your test resultsand keep a list of the medicines you take. How can you care for yourself at home? Work with your doctor to come up with a bladder training program that is right for you. You may useone or more of the following methods. Delayed urination In the beginning, try to keep from urinating for 5 minutes after you first feel the need to go. While you wait, take deep, slow breaths to relax. Kegel exercises can also help you delay the need to go to the bathroom. After some practice, when you can easily wait 5 minutes to urinate, try to wait 10 minutes before you urinate. Slowly increase the waiting period until you are able to control when you have to urinate. Scheduled urination Empty your bladder when you first wake up in the morning. Schedule times throughout the day when you will urinate. Start by going to the bathroom every hour, even if you don't need to go. Slowly increase the time between trips to the bathroom. When you have found a schedule that works well for you, keep doing it. If you wake up during the night and have to urinate, do it. Apply your schedule to waking hours only. Kegel exercises These tighten and strengthen pelvic muscles, which can help you control the flow of urine. (If doing these exercises causes pain, stop doing them and talk with your doctor.) To do Kegel exercises: Squeeze your muscles as if you were trying not to pass gas. Or squeeze your muscles as if you were stopping the flow of urine. Your belly, legs, and buttocks shouldn't move. Hold the squeeze for 3 seconds, then relax for 5 to 10 seconds. Start with 3 seconds, then add 1 second each week until you are able to squeeze for 10 seconds. Repeat the exercise 10 times a session. Do 3 to 8 sessions a day. When should you call for help? Watch closely for changes in your health, and be sure to contact your doctor if: ?? Your incontinence is getting worse. ?? You do not get better as expected. Where can you learn more? Go to https://www.[employer].net/patiented Enter V684 in the search box to learn more about Bladder Training: Care Instructions. Current as of: January 31, 2023?Content Version: 14.0 ?? [employer]. Care instructions adapted under license by your healthcare professional. If you have questions about a medical condition or this instruction, always ask your healthcare professional. [employer] disclaims any warranty or liability for your use of this information. documented in this encounter Progress Notes * Enrico Felton DO - 11/28/2023 2:00 PM CDT Images from the original note were not included. Preventive Care Visit [facility] Enrico Felton DO, Family Medicine Nov 28, 2023 Assessment & Plan See after visit summary and result note for helpful information and advice given to patient. Other chronic pain - celecoxib (CELEBREX) 100 MG capsule Dispense: 180 capsule; Refill: 3 Osteoarthritis of cervical spine, unspecified spinal osteoarthritis complication status - celecoxib (CELEBREX) 100 MG capsule Dispense: 180 capsule; Refill: 3 DDD (degenerative disc disease), lumbar - celecoxib (CELEBREX) 100 MG capsule Dispense: 180 capsule; Refill: 3 Screen for colon cancer - Fecal colorectal cancer screen FIT - Future (S+30) - Fecal colorectal cancer screen FIT - Future (S+30) Visit for screening mammogram - MA Screening Bilateral w/ Amilcar Pure hypercholesterolemia - Lipid panel reflex to direct LDL Non-fasting - Lipid panel reflex to direct LDL Non-fasting Tobacco use disorder - SMOKING CESSATION COUNSELING 3-10 MIN - CT Chest Lung Cancer Screen Low Dose Without Elevated blood pressure reading without diagnosis of hypertension - Basic metabolic panel Pre-diabetes - Basic metabolic panel - Hemoglobin A1c - Hemoglobin A1c Encounter for Medicare annual wellness exam Gastroesophageal reflux disease, unspecified whether esophagitis present - omeprazole (PRILOSEC) [address] capsule Dispense: 90 capsule; Refill: 3 - ondansetron (ZOFRAN) 4 MG tablet Dispense: 20 tablet; Refill: 0 Spasticity - pregabalin (LYRICA) 150 MG capsule Dispense: 180 capsule; Refill: 1 Overactive bladder - oxyBUTYnin (DITROPAN) 5 MG tablet Dispense: 90 tablet; Refill: 3 Nicotine dependence, cigarettes, with unspecified nicotine-induced disorders - CT Chest Lung Cancer Screen Low Dose Without Need for prophylactic vaccination and inoculation against influenza - INFLUENZA VACCINE TRIVALENT(FLUBLOK) Thyroid nodule Amy Shah is a 62 year old, presenting for the following: Medicare Visit and Imm/Inj (Flu Shot) 11/28/2023 1:44 PM Additional Questions Roomed by SAMIR Mcelroy Accompanied by Self Health Care Directive Patient does not have a Health Care Directive or Living Will: Discussed advance care planning with patient; information given to patient to review. HPI Patient is seen for primary reason of preventive health visit. 11/28/2023 General Health How would you rate your overall physical health? Good Feel stress (tense, anxious, or unable to sleep) Not at all 11/28/2023 Nutrition Diet: Regular (no restrictions) 11/28/2023 Exercise Days per week of moderate/strenous exercise 0 days (!) EXERCISE CONCERN 11/28/2023 Social Factors Frequency of gathering with friends or relatives Once a week Worry food won't last until get money to buy more No Food not last or not have enough money for food? No Do you have housing? (Housing is defined as stable permanent housing and does not include staying ouside in a car, in a tent, in an abandoned building, in an overnight fci, or couch-surfing.) Yes Are you worried about losing your housing? No Lack of transportation? No Unable to get utilities (heat,electricity)? No 11/28/2023 Fall Risk Fallen 2 or more times in the past year? No Trouble with walking or balance? No 11/28/2023 Activities of Daily Living- Home Safety Needs help with the following daily activites None of the above Safety concerns in the home None of the above 11/28/2023 Dental Dentist two times every year? (!) NO 11/28/2023 Hearing Screening Hearing concerns? None of the above 11/28/2023 Driving Risk Screening Patient/family members have concerns about driving No 11/28/2023 General Alertness/Fatigue Screening Have you been more tired than usual lately? No 11/28/2023 Urinary Incontinence Screening Bothered by leaking urine in past 6 months Yes 11/28/2023 TB Screening Were you born outside of the [place]? No Today's PHQ-9 Score: 11/28/2023 1:32 PM PHQ-9 SCORE PHQ-9 Total Score MyChart 1 (Minimal depression) PHQ-9 Total Score 1 11/28/2023 Substance Use If I could quit smoking, I would Somewhat disagree I want to quit somking, worry about health affects Somewhat disagree Willing to make a plan to quit smoking Somewhat disagree Willing to cut down before quitting Somewhat agree Alcohol more than 3/day or more than 7/wk No Do you have a current opioid prescription? No How severe/bad is pain from 1 to 10? 3/10 Do you use any other substances recreationally? (!) CANNABIS PRODUCTS Social History Tobacco Use Smoking status: Every Day Current packs/day: 1.00 Types: Cigarettes Passive exposure: Current Smokeless tobacco: Never Vaping Use Vaping status: Never Used Substance Use Topics Alcohol use: No Drug use: Yes Types: Marijuana Comment: daily 02/20/2022 LAST [facility]-7 RESULTS 1st degree relative breast or ovarian cancer Yes Any relative bilateral breast cancer Unknown Any male have breast cancer No Any ONE woman have BOTH breast AND ovarian cancer Yes Any woman with breast cancer before 50yrs No 2 or more relatives with breast AND/OR bowel cancer Yes Mammogram Screening - Mammogram every 1-2 years updated in Health Maintenance based on mutual decision making History of abnormal Pap smear: No - age 30-64 HPV with reflex Pap every 5 years recommended Latest Ref Rng & Units 08/22/2016 2:30 PM 08/22/2016 2:29 PM 01/18/2012 2:23 PM PAP / HPV PAP (Historical) NIL NIL HPV 16 DNA NEG Negative HPV 18 DNA NEG Negative Other HR HPV NEG Negative ASCVD Risk Plant Pathologist The 10-year ASCVD risk score (Patrick MARQUIS, et al., 2019) is: 20.6% Values used to calculate the score: Age: 62 years Sex: Female Is Non- : No Diabetic: No Tobacco smoker: Yes Systolic Blood Pressure: 153 mmHg Is BP treated: Yes HDL Cholesterol: 36 mg/dL Total Cholesterol: 264 mg/dL Reviewed and updated as needed this visit by Provider Mauro Rolon Current providers sharing in care for this patient include: Patient Care Team: Enrico Felton DO as PCP - General (Family Medicine) Edu Crawford DPM as MD (Podiatry) Maddie Mae as Personal Advocate & Liaison (PAL) (Family Medicine) Wendy Agustni APRN CNP as Assigned PCP The following health maintenance items are reviewed in Epic and correct as of today: Health Maintenance Topic Date Due HEPATITIS A IMMUNIZATION (1 of 2 - Risk 2-dose series) Never done COLORECTAL CANCER SCREENING 07/19/2019 HPV TEST 08/22/2021 PAP 08/22/2021 LUNG CANCER SCREENING 12/04/2021 MAMMO SCREENING 09/07/2022 RSV VACCINE (1 - Risk 60-74 years 1-dose series) Never done Medicare Annual MTM Pharmacist Visit (once per calendar year) Never done COVID-19 Vaccine ( season) 2023 PHQ-9 05/27/2024 NICOTINE/TOBACCO CESSATION COUNSELING Q 1 YR 09/12/2024 MEDICARE ANNUAL WELLNESS VISIT 11/27/2024 BMP 11/27/2024 LIPID 11/27/2024 ANNUAL REVIEW OF HM ORDERS 11/27/2024 GLUCOSE 11/27/2026 ADVANCE CARE PLANNING 11/27/2028 DTAP/TDAP/TD IMMUNIZATION (4 - Td or Tdap) 04/03/2033 HEPATITIS C SCREENING Completed HIV SCREENING Completed DEPRESSION ACTION PLAN Completed INFLUENZA VACCINE Completed Pneumococcal Vaccine: Pediatrics (0 to 5 Years) and At-Risk Patients (6 to 64 Years) Completed ZOSTER IMMUNIZATION Completed HPV IMMUNIZATION Aged Out MENINGITIS IMMUNIZATION Aged Out RSV MONOCLONAL ANTIBODY Aged Out Review of Systems Constitutional, neuro, ENT, endocrine, pulmonary, cardiac, gastrointestinal, genitourinary, musculoskeletal, integument and psychiatric systems are negative, except as otherwise noted. Patient is getting her paroxetine, clonidine, and suboxone through Jorge Yan who works in [facility]. She plans on stopping going to her pain clinic. She would like for me to take over prescribing her Lyrica. I discussed how this is a controlled substance and should only be prescribed through me or one of my clinic colleagues. Her Celebrex helps her knee pain. She differs her woman's health exam today. Patient differs medication treatment to help stop smoking tobacco. Uses Cannabis for pain relief with some benefit. She smoked before 10 minutes before coming to exam, which probably increased her blood pressure at exam which we discussed. Blood pressure was good this past October. Has not taken amlodipine or the lisinopril for over a year. She states she got dizzy taking lisinopril. We can consider restarting treatment using amlodipine if her blood pressure remains elevated atfuture visit. She has not taken rosuvastatin for over a year. She would like to recheck her lipids before restarting. She states she has not taken Keppra for about 2 years. She reports she has not had any seizure activity during this time. She would like to take her mirabegron for over active bladder. She differs recommended thyroid ultrasound after I advised her I palpated some thyroid nodules during visit. Objective Exam BP (!) 153/80 (BP Location: Left arm, Patient Position: Sitting, Cuff Size: Adult Large) Pulse 57 Temp 97.9 ??F (36.6 ??C) (Oral) Ht 1.753 m (5' 9) Wt 94.7 kg (208 lb 11.2 oz) LMP 09/10/2012 (Approximate) SpO2 95% No BMI 30.82 kg/m?? Estimated body mass index is 30.82 kg/m?? as calculated from the following: Height as of this encounter: 1.753 m (5' 9). Weight as of this encounter: 94.7 kg (208 lb 11.2 oz). Physical Exam General: Vital signs reviewed. Patient is in no acute appearing distress. Breathing appears nonlabored. Patient is alert and oriented ??3. ENT: Ear exam shows bilateral tympanic membranes to be clear without injection, nasal turbinates show no injection or edema, no pharyngeal injection or exudate. Neck: supple with no adenoapthy, palpable abnormal masses outside of thyroid gland. Patient has bilateral palpable superior thyroid nodules. Eyes: No scleral, lid, or periorbital injection or edema noted. No eye mattering noted. Corneas areclear. Pupils are equal round and reactive to light with normal consensual eye movement. Heart: Heart rate is regular without murmur. Lungs: Lungs are clear to auscultation with good airflow bilaterally. Abdomen: Abdomen is soft, nontender. No palpable abnormal masses or organomegaly. Bowel sounds are normal. COMMUNICATIONS EXECUTIVE exam: Declined by patient, who states she has no acute pelvic or breast concerns. Back: No areas of tenderness. Skin: Warm and dry, with no rash or abnormal lesions noted. Extremities: No ankle edema noted in right lower extremity. 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 No joint edema or restricted range of motion noted. Neuro: No acute focal deficits or other abnormalities noted. Psych: Patient is pleasant, making good eye contact, with clear and fluent speech. Answers questions appropriately. No psychomotor agitation. Bilateral thyroid superior nodule 11/28/2023 Mini Cog Clock Draw Score 2 Normal 3 Item Recall 2 objects recalled Mini Cog Total Score 4 Patient redrew clock well for me during exam. Signed Electronically by: Enrico Felton DO Answers submitted by the patient for this visit: Patient Health Questionnaire (Submitted on 11/28/2023) If you checked off any problems, how difficult have these problems made it for you to do your work,take care of things at home, or get along with other people?: Not difficult at all PHQ9 TOTAL SCORE: 1 Patient Health Questionnaire (G7) (Submitted on 11/28/2023) JEEVAN 7 TOTAL SCORE: 0 documented in this encounter Miscellaneous Notes * Result Encounter Note - America Green - 11/28/2023 2:00 PM CDT Mailed results America Green/ Harvesting Supervisor documented in this encounter Plan of Treatment Upcoming Encounters Date Type Department Care Team (Late st Contact Info) Description 12/21/2023 2:00 PM CDT Appointment [address] [place] [address] Kingsley Westbrook DPM [address] [place] [address] Scheduled Orders Name Type Priority Associated Diagnoses Orde r Schedule Fecal colorectal cancer screen FIT - Future (S+30) Lab Routine Screen for colon cancer Expected: 11/28/2023 (Approximate), Expires: 12/28/2023 MA Screening Bilateral w/ Amilcar Imaging Routine Visit for screening mammogram Expected: 11/28/2023 (Approximate), Expires: 11/27/2024 CT Chest Lung Cancer Screen Low Dose Without Imaging Routine Tobacco use disorder Nicotine dependence, cigarettes, with unspecified nicotine-induced disorders Expected: 11/28/2023 (Approximate), Expires: 11/27/2024 Hemoglobin A1c Lab Routine Pre-diabetes Expected: 02/29/2024 (Approximate), Expires: 11/29/2024 documented as of this encounter Goals Goal Patient Goal Type Associated Problems Recent Progress Patient-Stated? Author Financial Wellbeing General Yes Rosey Alexander LSW documented as of this encounter Procedures Procedure Name Priority Date/Time Associated Diagnosis Comments LIPID REFLEX TO DIRECT LDL PANEL Routine 11/28/2023 2:56 PM CDT Pure hypercholesterolemia HEMOGLOBIN A1C Routine 11/28/2023 2:56 PM CDT Pre-diabetes BASIC METABOLIC PANEL Routine 11/28/2023 2:56 PM CDT Elevated blood pressure reading without diagnosis of hypertension Pre-diabetes documented in this encounter Results * (ABNORMAL) Hemoglobin A1c (11/28/2023 2:56 PM CDT) Hemoglobin A1C 6.1(H) 0.0 - 5.6 % 11/28/2023 3:03 PM CDT [facility] Comment: Normal <5.7% Prediabetes 5.7-6.4% ?? Diabetes 6.5% or higher Note: Adopted from ADA consensus guidelines. Blood BLOOD SPECIMEN / Unknown Venipuncture / Unknown 11/28/2023 2:56 PM CDT 11/28/2023 2:56 PM CDT Enrico Felton DO LAB - BLOOD ORDERABL ES [facility] [address] [facility] (no room number, 1st floor of clinic) [place] [address] * (ABNORMAL) Basic metabolic panel (11/28/2023 2:56 [...] LAB - BLOOD ORDERABL ES [facility] [address] [place] [address], [facility] * (ABNORMAL) Lipid panel reflex to direct [...] LAB - BLOOD ORDERABL ES [facility] [address] [facility], [address] [phone] documented in this encounter Visit Diagnoses Diagnosis Encounter for Medicare annual wellness exam- Primary Routine general medical examination at a health care facility Other chronic pain Osteoarthritis of cervical spine, unspecified spinal osteoarthritis complication status DDD (degenerative disc disease), lumbar Degeneration of lumbar or lumbosacral intervertebral disc Screen for colon cancer Special screening for malignant neoplasms, colon Visit for screening mammogram Other screening mammogram Pure hypercholesterolemia Tobacco use disorder Elevated blood pressure reading without diagnosis of hypertension Pre-diabetes Other abnormal glucose Gastroesophageal reflux disease, unspecified whether esophagitis present Spasticity Abnormal involuntary movements Overactive bladder Hypertonicity of bladder Nicotine dependence, cigarettes, with unspecified nicotine-induced disorders Need for prophylactic vaccination and inoculation against influenza Thyroid nodule Nontoxic uninodular goiter documented in this encounter Additional Health Concerns Infection Onset Date Last Indicated Resolved Time 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 per 09/01/16 asphalt smoother note; left foot tissue 10/08/16 10/11/2018 02/27/2019 Assessment Noted Time PHQ-9 Depression Total Score: 1 11/28/19 24 1:52 PM CDT documented as of this encounter Care Teams Postdoctoral Research Fellow Relationship Specialty [place] [address] [place] [address] PCP - General Family Medicine 06/30/22 Edu Crawford DPM [address] [facility] [address] [place], [place] [id number] Podiatry 10/18/16 Maddie Mae Personal Advocate & Liaison (PAL) Family Medicine 12/28/21 Wendy Agustin APRN [facility] [address] [facility] [address] [place], [place] [address] Assigned PCP 10/09/23 documented as of this encounter
--- OUTSIDE RECORDS SUMMARY | 2023-12-12 00:41 | XMS_ITS | Encounter Summary ---
Author Organization [place] Address [facility] [place] [address] Care Team Providers Care Induction Machine Operator Name Role Phone Edu Crawford DPM Unavailable [phone] Maddie Mae Unavailable Unavailable Enrico Felton DO Primary Care Provider [phone] Wendy Agustin APRN SANDFILL OPERATOR Unavailable [phone] Encounter Details Date Type Department Care Team (Late st Contact Info) Description 11/14/2023 Telephone [facility] [place] [address] [facility] [address] [place] [address] Andreas Montenegro, MANAGER CONTINUOUS IMPROVEMENT SANDFILL OPERATOR [address] [place], [place] [id number] Social History Tobacco Use Types Packs/Day Years [...] Never 02/20/2022 How often do you attend jain or muslim serv ices? Patient declined 02/20/2022 Do you belong to any clubs o r organizations such as jain groups, unions, fraternal or athletic groups, or [...] Answer Date Recorded PHQ-2 Score 1 09/13/2023 [facility] - Occupational Stress Questionnaire Answer Date [...] place to sleep or slept in a assisted (including now)? No 02/20/2022 Adolescent Education Answer [...] encounter Miscellaneous Notes * Telephone Encounter - Alley Chambers - 11/14/2023 2:41 PM CDT Patient is scheduled. * Telephone Encounter - Jacqueline Morel RN - 11/14/2023 11:05 AM CDT Please schedule patient for Right MCKAYLA Mobility: Does the patient use an assistive device? (i.e. walker, wheelchair) Walker Does the patient need assistance getting on/off the ultrasound table? Yes Does the patient need assistance undressing/redressing the wounds? Yes Wound wraps/dressings: Is a 2 layer wrap being used? No (If yes, vein staff to assist patient in cutting this off.) Is Edemawear being used? No (If yes, vein team not to cut, but able to remove dressing.) Will the patient bring dressings to reapply after US? Yes o If not, can they be sent home with a chux to have home care or family member redress? Yes o Do they need a coordinated appointment for a nurse visit at wound to redress? No If coordinated appointment required, wound nurse to alert charge nurse or help desk administrator staff who willcall Vein help desk administrator at [phone] and/or Vascular schedulers [phone] to schedule the testing needed and coordinated wound clinic visit. The dressing can always be removed if testing is ordered. Please include in the order to be scheduled by [facility] or [facility], whichever is appropriate. Route to [facility] and/or [facility] scheduling pools. If the patient is a BEATRIZ lift, route to non clinical advisor and charge nurse. They will help to get the patient scheduled at the appropriate place. Routing to [facility] Appointment Scheduling Pool for MCKAYLA/arterial duplex orders Andreas Montenegro CNP documented in this encounter Plan of Treatment Upcoming Encounters Date Type Department Care Team (Late st Contact Info) Description 12/21/2023 2:00 PM CDT Appointment [facility] [address] [place] [address] Kingsley Westbrook DPM [address] [place] [id number] documented as of this encounter Goals Goal Patient Goal Type Associated Problems Recent Progress Patient-Stated? 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 per 09/01/16 jacquard loom card changer note; left foot tissue 10/08/16 10/11/2018 02/27/2019 Assessment Noted Time PHQ-9 Depression Total Score: 1 09/13/19 24 10:02 AM CDT documented as of this encounter Care Teams Induction Machine Operator Relationship Specialty [place] [address] [place] [address] PCP - General Family Medicine 06/30/22 Edu Crawford DPM [address] [facility] [address] [place] [address] Podiatry 10/18/16 Maddie Mae Personal Advocate & Liaison (PAL) Family Medicine 12/28/21 Wendy Agustin APRN SANDFILL OPERATOR [address] [facility] [address] [place], [place] [address] Assigned PCP 10/09/23 documented as of this encounter
--- OUTSIDE RECORDS SUMMARY | 2023-12-12 00:41 | XMS_ITS | Encounter Summary ---
Author Organization [place] Address [address] [place] [address] Care Team Providers Care Telephone Clerk Telegraph Office Name Role Phone Edu Crawford DPBharath Unavailable [phone] Maddie Mae Unavailable Unavailable Enrico Felton DO Primary Care Provider [phone] Wendy Agustin APRN EDITOR MANAGING DIRECTOR Unavailable [phone] Encounter Details Date Type Department Care Team (Latest Contact Info) Description 11/14/2023 Travel Social History Tobacco Use Types Packs/Day [...] Never 02/20/2022 How often do you attend sabianism or restorationism serv ices? Patient declined 02/20/2022 Do you belong to any clubs o r organizations such as sabianism groups, unions, fraternal or athletic groups, or [...] Answer Date Recorded PHQ-2 Score 1 09/13/2023 [facility] - Occupational Stress [...] place to sleep or slept in a mcc (including now)? No 02/20/2022 Adolescent Education Answer [...] Info) Description 12/21/2023 2:00 PM CDT Appointment [facility] [address] [place] [phone] Kingsley Westbrook DPM [address] [place] [phone] documented as of this encounter Goals Goal Patient Goal Type Associated Problems Recent Progress Patient-Stated? Author Financial Wellbeing General Yes Rosey Alexander, JUNIOR NETWORK ADMINISTRATOR documented as of this encounter Visit Diagnoses Not on filedocumented in this encounter Additional Health Concerns Infection Onset Date Last Indicated Resolved Time 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 per 09/01/16 wick and base assembler note; left foot tissue 10/08/16 10/11/2018 02/27/2019 Assessment Noted Time PHQ-9 Depression Total Score: 1 09/13/19 24 10:02 AM CDT documented as of this encounter Care Teams Telephone Clerk Telegraph Office Relationship Specialty [place] [address] [place] [address] PCP - General Family Medicine 06/30/22 Edu Crawford DPM [address] [facility] [address] [place] [address] Podiatry 10/18/16 Maddie Mae Personal Advocate & Liaison (PAL) Family Medicine 12/28/21 Wendy Agustin APRN EDITOR MANAGING DIRECTOR [address] [facility] [address] [place] [address] Assigned PCP 10/09/23 documented as of this encounter
--- OUTSIDE RECORDS SUMMARY | 2023-12-12 00:41 | XMS_ITS | Referral Summary ---
Author Organization [place] Address [address] [place] [address] Care Team Providers Care Environmental Lawyer Name Role Phone Edu Crawford DPBharath Unavailable [phone] Maddie Mae Unavailable Unavailable Enrico Felton DO Primary Care Provider [phone] Wendy Agustin APRN VIDEO COORDINATOR Unavailable [phone] Encounters Date Type Department Care Team Description 11/28/2023 Travel 11/28/2023 2:00 PM CDT Office Visit [address] [address] Enrico Felton DO Encounter for [...] vaccination and inoculation against influenza; Thyroid nodule 11/26/2023 Travel 11/26/2023 1:53 PM CDT - 11/26/2023 11:59 PM CDT Hospital Encounter [facility] [address] [facility] [address] [place] [address] Andreas Montenegro APRN VIDEO COORDINATOR 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) Discharge Disposition: Home or Self Care 11/14/2023 Telephone [facility] Wound [facility] [address] [place] [phone] Andreas Montenegro, WANDY VIDEO COORDINATOR 11/14/2023 Travel 11/14/2023 10:10 AM CDT - 11/14/2023 11:59 PM CDT Hospital Encounter [facility] Wound [facility] [address] [place] [phone] Andreas Montenegro, DOUBLE HEAD MACHINE OPERATOR VIDEO COORDINATOR 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) (Primary Dx) Discharge Disposition: Home or Self Care 10/30/2023 MyC Medical Advice [facility] [address] [place] [phone] Enrico Felton DO 10/30/2023 Telephone [facility] [address] [place] [phone] Enrico Felton DO Prior Auth - Medication (ondansetron (ZOFRAN) 4 MG tablet -EPA DENIED) 10/30/2023 MyC Medical Advice [facility] [address] [place] [phone] Enrico Felton DO 10/30/2023 Refill [facility] [address] [place] [phone] Enrico Felton DO Refill Request 10/09/2023 MyC Medical Advice [facility] [address] [place] [phone] Melida Pickering CMA 10/08/2023 Telephone [facility] [address] [place] [address] Enrico Felton DO Panel Management (mammo) 09/28/2023 MyC Medical Advice [facility] [address] [place] [phone] Melida Pickering, STAPLE LASTER 09/28/2023 Telephone [facility] [address] [place] [address] Enrico Felton DO Panel Management (pap) 09/13/2023 Telephone [facility] [place] [address] [place] [address] [place], Wound Healing Referral (Foot Wound) 09/13/2023 Travel 09/13/2023 11:00 AM CDT Office Visit [facility] [address] [place] [address] Wendy Agustin APRN CNP Penetrating foot wound, right, initial encounter (Primary Dx); Overactive bladder from Last 3 Months Allergies Active Allergy [...] End Date Status PARoxetine (PAXIL) 30 MG tabletIndications:[facility],Anxiety and depression Take 2 tablets (60 mg) [...] Overview: Added automatically from request for surgery [id number] Osteomyelitis 10/10/2018 11/14/2023 Non-ST elevation (NSTEMI) my ocardial infarction 05/03/2017 11/14/2023 Acute respiratory failure with hypoxia 04/09/2017 11/14/2023 Type 2 diabetes, HbA1C goal < 8% 06/26/2013 03/06/2017 [facility] 05/07/2013 09/03/2023 Overview: EMERGENCY CARE PLAN Presenting Problem Signs and Symptoms Treatment Plan Questions or concerns during clinic hours I will call the clinic directly Questions or concerns outside clinic hours I will call the 24 hour nurse line at [phone] Patient needs to schedule an appointment I will call the 24 hour scheduling team at [phone] or clinic directly Same day treatment I [...] re latives? Once a week 11/28/2023 Attends [employer] Not on file 11/27 Active Member [...] Recorded PHQ-2 Score 1 11/28/2023 [facility] - Occupational [...] Answer Date Recorded Do you have housing? (Housin g is defined as stable permanent housing and does not include staying ouside in a car, in a tent, in an abandoned building, in an overnight senior care, or couch-surfing.) Yes 11/28/2023 Are you worried [...] Info) Description 12/21/2023 2:00 PM CDT Appointment [facility] [address] [place] [address] [place] [phone] Kingsley Westbrook, DPM [address] [place] [address] Goals Goal Patient Goal Type Associated Problems Recent Progress Patient-Stated? Author Financial Wellbeing General Yes Rosey Alexander, CABLE WORKER HELPER Procedures Procedure Name Priority Date/Time Associated Diagnosis [...] ANTIGEN ANTIBODY COMBO Routine 02/20/2022 3:46 PM RESPIRATORY MEDICINE PHYSICIAN Screening for HIV (human immunodeficiency virus) CT CHEST W CONTRAST STAT 12/04/2020 3:48 PM CDT MA SCREENING BILATERAL W/ AMILCAR Routine 09/07/2020 1:02 PM CDT Screening mammogram for high-risk patient FECAL COLORECTAL CANCER SCREEN FIT Routine 07/18/2018 9:00 AM CDT Screen for colon cancer HEPATITIS C ANTIBODY Routine 04/05/2017 6:35 AM RESPIRATORY MEDICINE PHYSICIAN HPV HIGH RISK TYPES DNA CERVICAL Routine [...] LAB - BLOOD ORDERABL ES [facility] [place] [facility] [address] [facility], [address] [place] [address] [[email or web address]] * (ABNORMAL) Hemoglobin A1c (11/28/2023 2:56 PM CDT) Hemoglobin A1C 6.1(H) 0.0 - 5.6 % 11/28/2023 3:03 PM CDT [facility] Comment: Normal <5.7% Prediabetes 5.7-6.4% ?? Diabetes 6.5% or higher Note: Adopted from ADA consensus guidelines. Blood BLOOD SPECIMEN / Unknown Venipuncture / Unknown 11/28/2023 2:56 PM CDT 11/28/2023 2:56 PM CDT Enrico Felton DO LAB - BLOOD ORDERABL ES [facility] [address] [facility] (no room number, 1st floor of clinic) [place] [address], [facility] [place] * (ABNORMAL) Basic metabolic panel (11/28/2023 2:56 PM CDT) Pathologist [facility] Sodium 140 135 - 145 mmol/L 11/29/2023 [...] LAB - BLOOD ORDERABL ES [facility] [address] [facility], [address] [phone] [[email or web address]] * US MCKAYLA Doppler No Exercise 1-2 Levels Right (11/26/2023 2:12 PM CDT) Anatomical Region Laterality Modality Extremity Ultrasound Impressions 11/26/2023 2:44 PM CDT IMPRESSION: RIGHT LOWER EXTREMITY: MCKAYLA at rest is normal. Multiphasic tibial waveforms. JEZ MORTON MD Narrative 11/26/2023 2:44 PM CDT [facility] DATE: 11/26/2023 EXAM: RESTING ANKLE-BRACHIAL INDICES [...] Procedure Note Jez Morton MD - 11/26/2023 [facility] DATE: 11/26/2023 EXAM: RESTING ANKLE-BRACHIAL INDICES [...] tibial waveforms. JEZ MORTON MD Andreas Montenegro APRN VIDEO COORDINATOR IMG US ORDERAB LES * HIV Antigen Antibody Combo (02/20/2022 3:46 PM RESPIRATORY MEDICINE PHYSICIAN) HIV Antigen Antibody Combo Nonreactive Nonreactive 02/21/2022 5:16 PM RESPIRATORY MEDICINE PHYSICIAN [facility] DO Comment:HIV-1 p24 Ag & HIV-1 /HIV-2 Ab Not Detected Blood STRUCTURE OF LEFT UPPER LIMB / Unknown Venipuncture / Unknown 02/20/2022 3:46 PM RESPIRATORY MEDICINE PHYSICIAN 02/20/2022 3:47 PM RESPIRATORY MEDICINE PHYSICIAN Enrico Felton DO LAB - BLOOD ORDERABL ES [facility]/ENDO [facility]Endo [address] [facility] [address], [address] [phone] * CT Chest w Contrast (12/04/2020 3:48 [...] osseous pathology. ADRY ALBERT MD SYSTEM ID: ??[id number] Narrative 12/04/2020 4:[address] CHEST [...] osseous pathology. ADRY ALBERT MD SYSTEM ID: [id number] Cooper Waters MD G CT ORDERABLES * MA Screen Bilateral w/Amilcar [...] LOCKETT MD Enrico Felton DO IMG MAMMOGRAPHY ORDE ANNA * Fecal colorectal cancer screen FIT - Future (S+30) (07/18/2018 9:00 AM CDT) Occult Blood Scn FIT Negative NEG^Negati ve 07/19/2018 9:39 PM CDT [facility] Stool specimen (specimen) 07/18/2018 9:00 AM CDT 07/19/2018 8:00 PM CDT Madhuri Deleon APRN VIDEO COORDINATOR LAB - STOO LS ORDERABLES Performing Organization Address City/[facility]/ZIP Co de Phone Number [facility] [address] [place] [address] * Hepatits C antibody (04/05/2017 6:35 AM RESPIRATORY MEDICINE PHYSICIAN) Hepatitis C Antibody Nonreactive NR^Nonre active 04/05/2017 4:01 PM RESPIRATORY MEDICINE PHYSICIAN [facility] Comment: Assay performance characteristics have not been established for newborns, infants, and children Blood specimen (specimen) 04/05/2017 6:35 AM RESPIRATORY MEDICINE PHYSICIAN 04/05/2017 6:59 AM RESPIRATORY MEDICINE PHYSICIAN Ana Lieberman MD LAB - BLOOD O RDERABLES [address] [address] * HPV High Risk Types DNA Cervical (08/22/2016 2:30 PM CDT) HPV 16 DNA Negative NEG [facility] HPV 18 DNA Negative NEG [facility] Other HR HPV Negative NEG [facility] Final Diagnosis This patient's sample is negative [...] and its performance characteristics determined by the [facility], Molecular Diagnostics Laboratory. It has not been cleared or approved by the FDA. The laboratory is regulated under CLIA as qualified to perform high-complexity testing. This test is used for clinical purposes. It should not be regarded as investigational or for research. [facility] Specimen Description Cervical Cells [id number] [facility] 08/22/2016 2:30 PM CDT 08/22/2016 2:35 PM CDT Madhuri Deleon APRN VIDEO COORDINATOR LAB - BLOO D ORDERABLES Performing Organization Address City/State/[facility] Co de Phone Number [facility] [address] [place] [address] * Pap imaged thin layer screen with HPV - recommended age 30 - 65 years (select HPV order below) (08/22/2016 2:29 PM CDT) PAP MEHNAZ Arita Report Patient Name: JATINDER DE LA PAZ MR#: [id number] Specimen #: [id number] Collected: 08/22/2016 Received: 08/24/2016 Reported: 08/28/2016 10:33 [...] BRENNA Hong (ASCP) Processed and screened at [facility], [facility] CLINICAL HISTORY: LMP: 09/10/2012 Post Menopausal, Previous normal pap Date of Last Pap: 01/18/2012, Papanicolaou Test Limitations: ??Cervical cytology is a screening test with limited sensitivity; regular screening is critical for cancer prevention; Pap tests are primarily effective for the diagnosis/preventi on of squamous cell carcinoma, not adenocarcinomas or other cancers. TESTING LAB LOCATION: [facility] [address] [place], [place] ??[address] COLLECTION SITE: Client: ??[facility] Location: [facility] (R) COPATH Cytologic material (specimen) 08/22/2016 2:29 PM CDT 08/24/2016 11:02 AM CDT Madhuri Deleon APRN VIDEO COORDINATOR LAB - OPTI [place] CLINICAL SPECIMEN COPATH from Last 3 Months or Most Recently Relevant to Health Maintenance Additional Health Concerns Infection Onset Date Last Indicated 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 per 09/01/16 steel finisher note; left foot tissue 10/08/16 10/11/2018 02/27/2019 Advance Directives For more information, please contact: [phone] * Full Code (Latest Code Status on [...] with patie nt/legal decision maker Care Teams Environmental Lawyer Relationship Specialty [place] [address] [place] [address] PCP - General Family Medicine 06/30/22 Edu Crawford DPM [address] [facility] [address] [place] [address] Podiatry 10/18/16 Maddie Mae Personal Advocate & Liaison (PAL) Family Medicine 12/28/21 Wendy Agustin APRN VIDEO COORDINATOR [address] [facility] [address] [place] [address] Assigned PCP 10/09/23
--- OUTSIDE RECORDS SUMMARY | 2023-12-12 00:41 | XMS_ITS | Encounter Summary ---
Author Organization [facility] Address [address] [place] [address] Care Team Providers Care Needle Grinder Name Role Phone Edu Crawford DPBharath Unavailable [phone] Maddie Mae Unavailable Unavailable Enrico Felton DO Primary Care Provider [phone] [facility] Unavailable [phone] Reason for Referral * Diagnostic Imaging Ultrasound (Routine) - Pending Review Specialty Diagnoses / Procedures Referred By Contac t Referred To Contact Radiology. Diagnoses Neuropathic ulcer of right foot with fat layer exposed Procedures US MCKAYLA Doppler No Exercise 1-2 Levels Right Andreas Montenegro APRN [facility] [address] [place] [address] Referral ID Status Reason Start Date Expiration Date V isits Requested Visits Authorized [id number] Pending Review 11/14/2023 11/13/2024 1 1 Reason for Visit * Reason Comments WOUND CARE Encounter Details Date Type Department Care Team (Latest Contact Info) Description 11/14/2023 10:10 AM CDT - 11/14/2023 11:59 PM CDT Hospital Encounter [facility] [place] [address] [place], [place] [address] [address] [place] [id number] [facility] [address] [place] [id number] 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) (Primary Dx) Discharge Disposition: Home or Self Care Social History Tobacco Use Types Packs/Day Years [...] Never 02/20/2022 How often do you attend sikhism or yazdanism serv ices? Patient declined 02/20/2022 Do you belong to any clubs o r organizations such as sikhism groups, unions, fraternal or athletic groups, or [...] Answer Date Recorded PHQ-2 Score 1 09/13/2023 [facility] - Occupational Stress [...] Sign Reading Time Taken Comments Blood Pressure 120/67 11/14/2023 10:20 AM CDT Pulse 71 11/14/2023 10:20 AM CDT Temperature 36.1 ??C (96.9 ??F) 11/14/2023 10:20 AM C DT Respiratory Rate - - Oxygen Saturation - - Inhaled Oxygen Concentration - - Weight 97.5 kg (215 lb) 11/14/2023 10:15 AM CDT Height 175.3 cm (5' 9) 11/14/2023 10:15 AM CDT Body Mass Index 31.75 11/14/2023 10:15 AM CDT documented in this encounter Discharge Instructions * Discharge Instructions* Jacqueline Morel, ROQUE - 11/14/2023 10:14 AM CDT 11/14/2023 Alyssa Palencia 1960 A DME order for supplies has been placed to [email or web address]. If there are any issues with your order including not receiving the order please call our clinic at [phone]. Do not call [employer]. We are better able to help you. We can contact the [facility] rep to better assist than if you call the general [place] number. We can provide a tracking number also if needed. [facility] is now sending an ancillary kit free of charge. This kit includes gauze, gloves, and saline. You will receive 1 kit per 15 days of the supply order. We typically order 30 days of supplies so you will receive 2 kits. Please let us know if you would not like to receive this kit and we can communicate this to [facility]. Dressing changes outside of clinic are being performed by Patient Plan 11/14/2023 -okay to shower but do not soak your foot and no swimming and no hot tubs -Try and stay off your foot as much as possible -You have been referred to [facility] for MCKAYLA testing. Please call [phone] to schedule. -Will discuss footwear options with Code Machine Operator at next appointment -Try and cut down smoking. Even one less cigarette per day will help. Wound Dressing Change: Right plantar Foot -Wash your hands with soap and water before you begin your dressing change and prepare a clean surface for dressings. -Cleanse with mild unscented soap and water (such as Cetaphil, Cerave or Dove) -Primary dressing: Apply a pea sized amount of iodosorb to wound bed or to medipore pad using a q-tip applicator -Secondary dressing: Cover with 1 2x2.375 medipore + pad -Change daily A diet high in protein is important for wound healing, we recommend getting 90 grams of protein perday. Taking protein shakes or bars are a good way to get extra protein in your diet. Good sources of protein: Pork 26g per 3 oz Whey protein powder - 24g per scoop (on average) [place] yogurt - 23g per 8oz Chicken or Hostetter - 23g per 3oz Fish - 20-25g per 3oz Beef - 18-23g per 3oz Tofu - 10g per 1/2 cup [place] beans - 20g per cup Cottage cheese - 14g per 1/2 cup Lentils - 13g per 1/4 cup Beef jerky 13g per 1oz 2% milk - 8g per cup Peanut butter - 8g per 2 tablespoons Eggs - 6g per egg Mixed nuts - 6g per 2oz Main Provider: Andreas Montenegro CNP November 14, 2023 Call us at [phone] if you have any questions about your wounds, if you have redness or swelling around your wound, have a fever of 101 degrees Fahrenheit or greater or if you have any other problems or concerns. We answer the phone Sunday through Sunday 8 am to 4 pm, please leave a message as we check the voicemail frequently throughout the day. If you have a concern over the weekend, pleaseleave a message and we will return your call Sunday. If the need is urgent, go to the ER or urgent care. If you had a positive experience please indicate that on your patient satisfaction survey form [facility] will be sending you. It was a pleasure meeting with you today. Thank you for allowing me and my team the privilege of caring for you today. YOU are the reason we are here, and I truly hope we provided you with the excellent service you deserve. Please let us know if there is anything else we can do for you so that we can be sure you are leaving completely satisfied with your care experience. If you have any billing related questions please call the [facility] Business office at [phone].The clinic staff does not handle billing related matters. If you are scheduled to have a follow up appointment, you will receive a reminder call the day before your visit. On the appointment day please arrive 15 minutes prior to your appointment time. If you are unable to keep that appointment, please call the clinic to cancel or reschedule. If you are more than 10 minutes late or greater for your scheduled appointment time, the clinic policy is that you may be asked to reschedule. documented in this encounter Medications at Time of Discharge Medication Sig Dispensed Refills Start Date End Date buprenorphine HCl-naloxone HCl (SUBOXONE) 8-[address] 1 Film under the tongue daily cloNIDine (CATAPRES) 0.1 MG tablet 10/31/2023 hydrOXYzine HCl (ATARAX) 25 MG tablet 11/14/2023 PARoxetine (PAXIL) 30 MG tabletIndications:[facility],Anxiety and depression Take 2 tablets (60 mg) by mouth daily 180 tablet 4 02/20/2022 amLODIPine (NORVASC) 5 MG tabletIndications:Essenti al hypertension Take 1 tablet (5 mg) by mouth daily 90 tablet 4 02/20/2022 11/28/2023 celecoxib (CELEBREX) 100 MG capsuleIndications:Other chronic pain,Osteoarthritis of cervical spine, unspecified spinal osteoarthritis complication status,DDD (degenerative disc disease), lumbar Take 1 capsule (100 mg) by mouth 2 times daily 60 capsule 10/30/2023 11/28/2023 folic acid (FOLVITE) 1 MG tabletIndications:Mild protein-calorie malnutrition (H24) Take 1 tablet (1 mg) by mouth daily 30 tablet 09/18/2022 11/28/2023 levETIRAcetam (KEPPRA) 1000 MG tablet Take 1,000 mg by mouth 2 times daily 11/28/2023 lisinopril (ZESTRIL) 20 MG tabletIndications:Essenti al hypertension Take 1 tablet (20 mg) by mouth daily 90 tablet 4 02/20/2022 11/28/2023 mirabegron (MYRBETRIQ) 25 MG 24 hr tabletIndications:Overact adrianne bladder Take 1 tablet (25 mg) by mouth daily 30 tablet 10/30/2023 11/28/2023 omeprazole (PRILOSEC) [address] capsule 11/14/2023 11/28/2023 ondansetron (ZOFRAN) 4 MG tabletIndications:Gastroe sophageal reflux disease, unspecified whether esophagitis present Take 1 tablet (4 mg) by mouth every 8 hours as needed for nausea 20 tablet 10/30/2023 11/28/2023 pantoprazole (PROTONIX) 40 MG EC tabletIndications:Gastroe sophageal reflux disease, unspecified whether esophagitis present Take 1 tablet (40 mg) by mouth daily 90 tablet 4 02/20/2022 11/28/2023 pregabalin (LYRICA) 150 MG capsuleIndications:[facility] Take 1 capsule (150 mg) by mouth 2 times daily for 30 days 60 capsule 10/25/2021 11/28/2023 rosuvastatin (CRESTOR) 5 MG tabletIndications:Hyperli pidemia with target LDL less than 100 Take 1 tablet (5 mg) by mouth daily 90 tablet 3 03/20/2022 11/28/2023 thiamine (B-1) 100 MG tabletIndications:Mild protein-calorie malnutrition (H24) Take 1 tablet (100 mg) by mouth daily 30 tablet 09/18/2022 11/28/2023 documented as of this encounter Progress Notes * Andreas Montenegro, WANDY [facility] - 11/14/2023 10:17 AM CDT Images from the original note were not included. [facility] ASSESSMENT: (L97.512) 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) Plantar foot, callused PLAN/DISCUSSION: Wound care plan: Iodosorb gel and a cover dressing Recommend recheck A1c as greater than one year since Recommend smoking cessation, not interested Update MCKAYLA on the right - ordered Follow up with DPM; will likely need custom shoes, though reports she cannot afford them See bottom of note for detailed wound care and patient instructions Dietary recommendations discussed, see AVS HISTORY OF PRESENT ILLNESS: Alyssa Palencia is a 62 year old female who was Referred to the Wound Clinic 09/13/23 for a penetrating right foot wound. She has a history of a right TMA and a left BKA. She is a smoker and has not had an MCKAYLA since 10/10/18 (normal). She informs that the wound has been around since perhaps June 2023. She shaved a callus and reports that the core came out leaving an open wound. She has not been applying anything to the wound. She wears flat shoes that are narrow, which support her foot. She reports she cannot afford the $400 specialty shoe when a regular shoe works fine. She wears slippers/clogs in the house and her foot slides in them. She is not interested in smoking cessation and is aware that part of her issue is likely related to smoking. She has neuropathy with limited sensation in the foot. She wears a prostheticon the left leg and falls now and then, including a fall this morning, without injury. She has a history of head trauma. She reports her left BKA and right TMA were all the result of infections. TREATMENT COURSE: 10/17/23: No Show 11/14/23: Initial Visit. Started on Iodosorb gel and a Medipore+ pad. MCKAYLA ordered. VITALS: BP 120/67 (BP Location: Left arm, Patient Position: Sitting) Pulse 71 Temp 96.9 ??F (36.1 ??C) (Temporal) Ht 1.753 m (5' 9) Wt 97.5 kg (215 lb) LMP 09/10/2012 (Approximate) BMI 31.75 kg/m?? PHYSICAL EXAM: GENERAL: Patient is alert and oriented and in no acute distress CV: Nonpalpable pedal pulses INTEGUMENTARY: Wound 10/10/18 Right;Medial Other (Comment) Fissure fissure in right toe stump (Active) Wound (used by OP [facility] only) 11/14/23 1019 foot Right plantar pressure injury (Active) Thickness/Stage full thickness 11/14/23 1000 Base pink;red 11/14/23 1000 Periwound intact 11/14/23 1000 Periwound Temperature warm 11/14/23 1000 Periwound Skin Turgor firm 11/14/23 1000 Edges callused 11/14/23 1000 Length (cm) 1 11/14/23 1000 Width (cm) 1.2 11/14/23 1000 Depth (cm) 0.6 11/14/23 1000 Wound (cm^2) 1.2 cm^2 11/14/23 1000 Wound Volume (cm^3) 0.72 cm^3 11/14/23 1000 Drainage Characteristics/Odor serosanguineous 11/14/23 1000 Drainage Amount moderate 11/14/23 1000 Care, Wound debrided 11/14/23 1000 Incision/Surgical Site 04/06/17 Left Leg (Active) Incision/Surgical Site 04/14/17 Left;Lower Leg (Active) Incision/Surgical Site 10/11/18 Right Foot (Active) Incision/Surgical Site 02/27/19 Right Foot (Active) PROCEDURES: 4% topical lidocaine was applied to the wound by the nursing staff. Patient was determined to be capable of making their own medical decisions and informed consent was obtained. Using a 15 blade a subcutaneous debridement of non-viable tissue was performed of <20cm2 to bleeding tissue. Hemostasis was achieved with pressure. The patient tolerated the procedure well. MDM: 30 minutes were spent on the date of the visit reviewing previous chart notes, evaluating patient and developing the treatment plan, this excludes any time spent on procedures PATIENT INSTRUCTIONS Further instructions from your care team 11/14/2023 Alyssa Palencia 1960 A DME order for supplies has been placed to [email or web address]. If there are any issues with your order including not receiving the order please call our clinic at [phone]. Do not call [employer]. We are better able to help you. We can contact the [facility] rep to better assist than if you call the general [facility] number. We can provide a tracking number also if needed. [facility] is now sending an ancillary kit free of charge. This kit includes gauze, gloves, and saline. You will receive 1 kit per 15 days of the supply order. We typically order 30 days of supplies so you will receive 2 kits. Please let us know if you would not like to receive this kit and we can communicate this to [employer]. Dressing changes outside of clinic are being performed by Patient Plan 11/14/2023 -okay to shower but do not soak your foot and no swimming and no hot tubs -Try and stay off your foot as much as possible -You have been referred to [facility] for MCKAYLA testing. Please call [phone] to schedule. -Will discuss footwear options with Code Machine Operator at next appointment -Try and cut down smoking. Even one less cigarette per day will help. Wound Dressing Change: Right plantar Foot -Wash your hands with soap and water before you begin your dressing change and prepare a clean surface for dressings. -Cleanse with mild unscented soap and water (such as Cetaphil, Cerave or Dove) -Primary dressing: Apply iodosorb to wound bed -Secondary dressing: Cover with 1 medipore + pad -Change daily A diet high in protein is important for wound healing, we recommend getting 90 grams of protein perday. Taking protein shakes or bars are a good way to get extra protein in your diet. Good sources of protein: Pork 26g per 3 oz Whey protein powder - 24g per scoop (on average) [place] yogurt - 23g per 8oz Chicken or Hostetter - 23g per 3oz Fish - 20-25g per 3oz Beef - 18-23g per 3oz Tofu - 10g per 1/2 cup [place] beans - 20g per cup Cottage cheese - 14g per 1/2 cup Lentils - 13g per 1/4 cup Beef jerky 13g per 1oz 2% milk - 8g per cup Peanut butter - 8g per 2 tablespoons Eggs - 6g per egg Mixed nuts - 6g per 2oz Main Provider: Andreas Montenegro CNP November 14, 2023 Call us at [phone] if you have any questions about your wounds, if you have redness or swelling around your wound, have a fever of 101 degrees Fahrenheit or greater or if you have any other problems or concerns. We answer the phone Sunday through Sunday 8 am to 4 pm, please leave a message as we check the voicemail frequently throughout the day. If you have a concern over the weekend, pleaseleave a message and we will return your call Sunday. If the need is urgent, go to the ER or urgent care. If you had a positive experience please indicate that on your patient satisfaction survey form [facility] will be sending you. It was a pleasure meeting with you today. Thank you for allowing me and my team the privilege of caring for you today. YOU are the reason we are here, and I truly hope we provided you with the excellent service you deserve. Please let us know if there is anything else we can do for you so that we can be sure you are leaving completely satisfied with your care experience. If you have any billing related questions please call the [facility] Business office at [phone].The clinic staff does not handle billing related matters. If you are scheduled to have a follow up appointment, you will receive a reminder call the day before your visit. On the appointment day please arrive 15 minutes prior to your appointment time. If you are unable to keep that appointment, please call the clinic to cancel or reschedule. If you are more than 10 minutes late or greater for your scheduled appointment time, the clinic policy is that you may be asked to reschedule. Electronically signed by: Andreas Montenegro DNP, SUSPENDER CUTTER, COURT [facility], CWCN * Jacqueline Morel RN - 11/14/2023 10:14 AM CDT Patient arrived for wound care visit. Certified Wound Care Nurse time spent evaluating patient record, completed a full evaluation and documented wound(s) & dania-wound skin; provided recommendation based on treatment plan. Applied dressing, reviewed discharge instructions, patient education, and discussed plan of care with appropriate medical team staff members and patient and/or family members. documented in this encounter Plan of Treatment Upcoming Encounters Date Type Department Care Team (Late st Contact Info) Description 12/21/2023 2:00 PM CDT Appointment [facility] [address] [place] [phone] Kingsley Westbrook DPM [address] [place], [place] [id number] documented as of this encounter Goals Goal Patient Goal Type Associated Problems Recent Progress Patient-Stated? Author Financial Wellbeing General Yes Rosey Alexander, HEATING AND VENTILATING TENDER documented as of this encounter Results * US MCKAYLA Doppler No Exercise 1-2 Levels Right (11/26/2023 2:12 PM CDT) Anatomical Region Laterality Modality Extremity Ultrasound Impressions 11/26/2023 2:44 PM CDT IMPRESSION: RIGHT LOWER EXTREMITY: MCKAYLA at rest is normal. Multiphasic tibial waveforms. JEZ MORTON MD Narrative 11/26/2023 2:44 PM CDT [facility] DATE: 11/26/2023 EXAM: RESTING ANKLE-BRACHIAL INDICES [...] Procedure Note Jez Morton MD - 11/26/2023 [facility] DATE: 11/26/2023 EXAM: RESTING ANKLE-BRACHIAL INDICES [...] waveforms. JEZ MORTON MD Andreas Montenegro APRN [facility] IMG US ORDERAB LES documented in this encounter Visit Diagnoses Diagnosis Neuropathic ulcer of right foot with fat layer exposed- Primary Neuropathic ulcer of right foot with fat layer exposed documented in this encounter Additional Health Concerns Infection Onset Date Last Indicated Resolved Time 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 per 09/01/16 cable installer repairer helper note; left foot tissue 10/08/16 10/11/2018 02/27/2019 Assessment Noted Time PHQ-9 Depression Total Score: 1 09/13/19 24 10:02 AM CDT documented as of this encounter Care Teams Needle Grinder Relationship Specialty [place] [address] [place] [address] PCP - General Family Medicine 06/30/22 Edu Crawford [place] [address] [facility] [address] [place] [address] Podiatry 10/18/16 Maddie Mae Personal Advocate & Liaison (PAL) Family Medicine 12/28/[address] [facility] [address] [facility] [address] [place], [place] [id number] Assigned PCP 10/09/23 documented as of this encounter
--- OUTSIDE RECORDS SUMMARY | 2023-12-12 00:41 | XMS_ITS | Encounter Summary ---
Author Organization [facility] Address [address] [place] [address] Care Team Providers Care Needle Bar Molder Name Role Phone Edu Crawford DPBharath Unavailable [phone] Maddie Mae Unavailable Unavailable Enrico Felton DO Primary Care Provider [phone] Wendy Agustin APRN WIRE INSPECTOR Unavailable [phone] Reason for Referral * Diagnostic Imaging Ultrasound (Routine) - Pending Review Specialty Diagnoses / Procedures Referred By Contac t Referred To Contact Radiology. Diagnoses Neuropathic ulcer of right foot with fat layer exposed Procedures US MCKAYLA Doppler No Exercise 1-2 Levels Right Andreas Montenegro APRN WIRE INSPECTOR [address] [place] [address] Referral ID Status Reason Start Date Expiration Date V isits Requested Visits Authorized [id number] Pending Review 11/14/2023 11/13/2024 1 1 Reason for Visit * Diagnostic Imaging Ultrasound (Routine) - Pending Review Specialty Diagnoses / Procedures Referred By Contac t Referred To Contact Radiology. Diagnoses Neuropathic ulcer of right foot with fat layer exposed Procedures US MCKAYLA Doppler No Exercise 1-2 Levels Right Andreas Montenegro APRN WIRE INSPECTOR [address] [place] [address] Referral ID Status Reason Start Date Expiration Date V isits Requested Visits Authorized [id number] Pending Review 11/14/2023 11/13/2024 1 1 Encounter Details Date Type Department Care Team (Latest Contact Info) Description 11/26/2023 1:53 PM CDT - 11/26/2023 11:59 PM CDT Hospital Encounter [facility] [address] [place] [phone] Andreas Montenegro W, STOREROOM CLERK WIRE INSPECTOR [address] [place] [address] 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) Discharge Disposition: Home or Self Care Social [...] How often do you attend anabaptism or moravian serv ices? Patient declined 02/20/2022 [...] Answer Date Recorded PHQ-2 Score 1 09/13/2023 [facility] - Occupational Stress Questionnaire Answer Date Recorded [...] a nursing home (including now)? No 02/20/2022 Adolescent Education [...] on file documented as of this encounter Medications at Time of Discharge Medication Sig Dispensed Refills Start Date End Date buprenorphine HCl-naloxone HCl (SUBOXONE) 8-[address] 1 Film under the tongue daily cloNIDine (CATAPRES) 0.1 MG tablet 10/31/2023 hydrOXYzine HCl (ATARAX) 25 MG tablet 11/14/2023 PARoxetine (PAXIL) 30 MG tabletIndications:Health Detention,Anxiety and depression Take 2 tablets (60 mg) by mouth daily 180 tablet 4 02/20/2022 amLODIPine (NORVASC) 5 MG tabletIndications:Princess al hypertension Take 1 tablet (5 mg) [...] times daily 11/28/2023 lisinopril (ZESTRIL) 20 MG tabletIndications:Princess al hypertension Take 1 tablet (20 mg) [...] 4 02/20/2022 11/28/2023 pregabalin (LYRICA) 150 MG capsuleIndications:[facility] Take 1 capsule (150 mg) by [...] 09/18/2022 11/28/2023 documented as of this encounter Plan of Treatment Upcoming Encounters Date Type Department Care Team (Late st Contact Info) Description 12/21/2023 2:00 PM CDT Appointment [facility] [address] [place] [address] Kingsley Westbrook, GAYLA [address] [place], [place] [address] documented as of this encounter Goals Goal Patient Goal Type Associated Problems Recent Progress Patient-Stated? Author Financial Wellbeing General Yes Rosey Alexander, CAKE WINDER documented as of this encounter Procedures Procedure Name Priority Date/Time Associated Diagnosis Comments US MCKAYLA DOPPLER NO EXERCISE, 1-2 LEVELS, RIGHT Routine 11/26/2023 2:12 PM CDT 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) documented in this encounter Results * US MCKAYLA Doppler No Exercise 1-2 Levels Right (11/26/2023 2:12 PM CDT) Anatomical Region Laterality Modality Extremity Ultrasound Impressions 11/26/2023 2:44 PM CDT IMPRESSION: RIGHT LOWER EXTREMITY: MCKAYLA at rest is normal. Multiphasic tibial waveforms. JEZ MORTON MD Narrative 11/26/2023 2:44 PM CDT [facility] DATE: 11/26/2023 EXAM: RESTING ANKLE-BRACHIAL INDICES [...] Procedure Note Jez Morton MD - 11/26/2023 [facility] DATE: 11/26/2023 EXAM: RESTING ANKLE-BRACHIAL INDICES [...] waveforms. JEZ MORTON MD Andreas Montenegro APRN WIRE INSPECTOR IMG US ORDERAB LES documented in this encounter Visit Diagnoses Diagnosis Neuropathic ulcer of right foot with fat layer exposed documented in this encounter Additional Health Concerns Infection Onset Date Last Indicated Resolved Time 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 per 09/01/16 pneumatic jacketer note; left foot tissue 10/08/16 10/11/2018 02/27/2019 Assessment Noted Time PHQ-9 Depression Total Score: 1 09/13/19 24 10:02 AM CDT documented as of this encounter Care Teams Needle Bar Molder Relationship Specialty [place] [address] [place] [address] PCP - General Family Medicine 06/30/22 [place] [address] [facility] [address] [place] [address] Podiatry 10/18/16 Maddie Mae Personal Advocate & Liaison (PAL) Family Medicine 12/28/21 Wendy Agustin APRN WIRE INSPECTOR [address] [place], [place] [address] Assigned PCP 10/09/23 documented as of this encounter
--- OUTSIDE RECORDS SUMMARY | 2023-12-12 00:42 | XMS_ITS | Encounter Summary ---
Author Organization [facility] Address [address] [place] [address]. [place] [address] Care Team Providers Care Surgical Brace Maker Name Role Phone Edu Crawford DPM Unavailable [phone] Maddie Mae Unavailable Unavailable Enrico Felton DO Primary Care Provider [phone] Wendy Agustin APRN RAISER HELPER Unavailable [phone] Encounter Details Date Type Department Care Team (Late st Contact Info) Description 10/30/2023 MyC Medical Advice [facility] [id number] [place] [phone] [place] [id number] [place] [address] Social History Tobacco Use Types Packs/Day [...] Never 02/20/2022 How often do you attend latter day or buddhist serv ices? Patient declined 02/20/2022 Do you belong to any clubs o r organizations such as latter day groups, unions, fraternal or athletic groups, or [...] Answer Date Recorded PHQ-2 Score 1 09/13/2023 [facility] - Occupational Stress Questionnaire Answer [...] a long term (including now)? No 02/20/2022 Adolescent Education Answer [...] Info) Description 12/21/2023 2:00 PM CDT Appointment [facility] [address] [place] [address] Kingsley Westbrook DPM [address] [place] [address] documented as of this encounter Goals Goal Patient Goal Type Associated Problems Recent Progress Patient-Stated? 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 per 09/01/16 pilot safety inspector note; left foot tissue 10/08/16 10/11/2018 02/27/2019 Assessment Noted Time PHQ-9 Depression Total Score: 1 09/13/19 24 10:02 AM CDT documented as of this encounter Care Teams Surgical Brace Maker Relationship Specialty [place] [address] [place] [address] PCP - General Family Medicine 06/30/22 Edu Crawford DPM [address] [facility] [address] [place] [address] Podiatry 10/18/16 Maddie Mae Personal Advocate & Liaison (PAL) Family Medicine 12/28/21 Wendy Agustin APRN RAISER HELPER [address] [place] [address] Assigned PCP 10/09/23 documented as of this encounter
--- OUTSIDE RECORDS SUMMARY | 2023-12-12 00:42 | XMS_ITS | Encounter Summary ---
Author Organization [facility] Address [address] [place] [address]. [place] [address] Care Team Providers Care Commissary Production Supervisor Name Role Phone Edu Crawford DPM Unavailable [phone] Enrico Felton DO Unavailable [phone] Maddie Mae Unavailable Unavailable Enrico Felton DO Primary Care Provider [phone] Reason for Visit * Reason Onset Date Comments Panel Management 09/28/2023 pap Encounter Details Date Type Department Care Team (Late st Contact Info) Description 09/28/2023 Telephone [facility] [address] [place] [address] [place] [id number] [place] [address] Panel Management (pap) Social History Tobacco [...] Never 02/20/2022 How often do you attend alevism or taoism serv ices? Patient declined 02/20/2022 Do you belong to any clubs o r organizations such as alevism groups, unions, fraternal or athletic groups, or [...] Answer Date Recorded PHQ-2 Score 1 09/13/2023 [facility] - Occupational Stress Questionnaire Answer Date Recorded [...] Telephone Encounter - Melida Pickering CMA - 09/28/2023 8:34 AM CDT Summary: Patient is due/failing the following: PAP Reviewed: [] CARE EVERYWHERE [] LAST OV NOTE [] FYI TAB [] MYCHART ACTIVE? [] LAST PANEL ENCOUNTER [] FUTURE APPTS [] IMMUNIZATIONS [] Media Tab Action needed: Patient needs office visit for pap. Type of outreach: Phone, left message for patient to call back. and Sent MyChart message. Melida Pickering/JAYCEE [facility] documented in this encounter Plan of Treatment Upcoming Encounters Date Type Department Care Team (Late st Contact Info) Description 12/21/2023 2:00 PM CDT Appointment [facility] [place] [address] [place] [address] Kingsley Westbrook DPM [address] [place] [address] documented as of this encounter Goals Goal Patient Goal Type Associated Problems Recent Progress Patient-Stated? Author Financial Wellbeing General Yes Rosey Alexander, COMMERCIAL REAL ESTATE PARALEGAL documented as of this encounter Visit Diagnoses Not on filedocumented in this encounter Additional Health Concerns Infection Onset Date Last Indicated Resolved Time 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 per 09/01/16 clinical professor note; left foot tissue 10/08/16 10/11/2018 02/27/2019 Assessment Noted Time PHQ-9 Depression Total Score: 1 09/13/19 24 10:02 AM CDT documented as of this encounter Care Teams Commissary Production Supervisor Relationship Specialty [place] [address] [place] [address] PCP - General Family Medicine 06/30/22 Edu Crawford DPM [id number] [place] [address] [address] [place] [address] Podiatry 10/18/16 [place] [address] [place] [address] Assigned PCP 08/29/20 10/08/23 Maddie Mae Personal Advocate & Liaison (PAL) Family Medicine 12/28/21 documented as of this encounter
--- OUTSIDE RECORDS SUMMARY | 2023-12-12 00:42 | XMS_ITS | Encounter Summary ---
Author Organization [facility] Address [address] [place] [address] Care Team Providers Care Hospital Chief Financial Officer Name Role Phone Mirandaclifton Edu DPM Unavailable [phone] Enrico Felton DO Unavailable [phone] Maddie Mae Unavailable Unavailable Enrico Felton DO Primary Care Provider [phone] Aydee Mcgill RN Unavailable [phone] Wendy Agustin APRN MERCURY PURIFIER Unavailable [phone] Encounter Details Date Type Department Care Team (Late st Contact Info) Description 06/30/2022 [facility] Care Coordination [address] [place] [phone] Aydee Mcgill, RN Social History Tobacco Use Types Packs/Day Years Used Date Smoking Tobacco: Every Day Cigarettes Smokeless Tobacco: Never Alcohol Use Standard Drinks/Week [...] Never 02/20/2022 How often do you attend adventism or mu-ism serv ices? Patient declined 02/20/2022 Do you belong to any clubs o r organizations such as adventism groups, unions, fraternal or athletic groups, or [...] Answer Date Recorded PHQ-2 Score 1 02/20/2022 [facility]at ional [facility] - Occupational Stress Questionnaire Answer Date Recorded [...] place to sleep or slept in a prison (including now)? No 02/20/2022 Sex and Gender Information Value Date Recorded Sex Assigned at Not on file Gender Identity Not on file Sexual Orientation Not on file documented as of this encounter Plan of Treatment Upcoming Encounters Date Type Department Care Team (Late st Contact Info) Description 12/21/2023 2:00 PM CDT Appointment [facility] [address] [place] [address] Kingsley Westbrook DPM [address] [place], [place] [address] documented as of this encounter Goals Goal Patient Goal Type Associated Problems Recent Progress Patient-Stated? Author Financial Wellbeing General Yes Rosey Alexander, WELDING MACHINE OPERATOR/TENDER documented as of this encounter Visit Diagnoses Not on filedocumented in this encounter Additional Health Concerns Infection Onset Date Last Indicated Resolved Time 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 per 09/01/16 blast furnace checker note; left foot tissue 10/08/16 10/11/2018 02/27/2019 Assessment Noted Time PHQ-9 Depression Total Score: 5 02/21/20 22 2:07 PM APERTURE MASK ETCHER documented as of this encounter Care Teams Hospital Chief Financial Officer Relationship Specialty [place] [address] [place] [address] PCP - General Family Medicine 06/30/22 Edu Crawford DPM [address] [facility] [address] [place] [address] Podiatry 10/18/16 [place] [address] [place] [address] Assigned PCP 08/29/20 10/08/23 Maddie Mae Personal Advocate & Liaison (PAL) Family Medicine 12/28/21 Aydee Mcgill RN ROQUE Clinical Product Navigator Primary Care - CC 06/30/22 06/30/22 Wendy Agustin APRN MERCURY PURIFIER [address] [facility] [address] [place] [address] Assigned PCP 10/09/23 documented as of this encounter
--- OUTSIDE RECORDS SUMMARY | 2023-12-12 00:42 | XMS_ITS | Encounter Summary ---
Author Organization [facility] Address [address] [place] [address]. [place] [address] Care Team Providers Care Collection Systems Foreman Name Role Phone Edu Crawford DPM Unavailable [phone] Enrico Felton DO Unavailable [phone] Maddie Mae Unavailable Unavailable Enrico Felton DO Primary Care Provider [phone] Wendy Agustin APRN COMBAT CONTROL Unavailable [phone] Reason for Visit * Reason Onset Date Comments Panel Management 10/08/2023 mammo Encounter Details Date Type Department Care Team (Late st Contact Info) Description 10/08/[address] [address] Enrico Felton DO [address] [place] [address] Panel Management (mammo) Social History Tobacco [...] Never 02/20/2022 How often do you attend shinto or rastafarian serv ices? Patient declined 02/20/2022 Do you belong to any clubs o r organizations such as shinto groups, unions, fraternal or athletic groups, or [...] Answer Date Recorded PHQ-2 Score 1 09/13/2023 [facility] - Occupational Stress Questionnaire Answer [...] Telephone Encounter - Melida Pickering CMA - 10/08/2023 7:33 AM CDT Summary: Patient is due/failing the following: MAMMOGRAM Reviewed: [] CARE EVERYWHERE [] LAST OV NOTE [] FYI TAB [] MYCHART ACTIVE? [] LAST PANEL ENCOUNTER [] FUTURE APPTS [] IMMUNIZATIONS [] Media Tab Action needed: Patient needs referral/order: mammo Type of outreach: Phone, left message for patient to call back. Melida Pickering/JAYCEE [facility] documented in this encounter Plan of Treatment Upcoming Encounters Date Type Department Care Team (Late st Contact Info) Description 12/21/2023 2:00 PM CDT Appointment [facility] [place] [address] [place] [address] Kingsley Westbrook DPM [address] [place] [address] documented as of this encounter Goals Goal Patient Goal Type Associated Problems Recent Progress Patient-Stated? Author Financial Wellbeing General Yes Rosey Alexander, POLISHER ALUMINUM documented as of this encounter Visit Diagnoses Not on filedocumented in this encounter Additional Health Concerns Infection Onset Date Last Indicated Resolved Time 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 per 09/01/16 sign shop supervisor note; left foot tissue 10/08/16 10/11/2018 02/27/2019 Assessment Noted Time PHQ-9 Depression Total Score: 1 09/13/19 10:02 AM CDT documented as of this encounter Care Teams Collection Systems Foreman Relationship Specialty [place] [address] [place] [address] PCP - General Family Medicine 06/30/22 [place] [address] [facility] [address] [place] [address] Podiatry 10/18/16 [place] [address] [place] [address] Assigned PCP 08/29/20 10/08/23 Maddie Mae Personal Advocate & Liaison (PAL) Family Medicine 12/28/21 Wendy Agustin APRN COMBAT CONTROL [address] [facility] [address] [place] [address] Assigned PCP 10/09/23 documented as of this encounter
--- OUTSIDE RECORDS SUMMARY | 2023-12-12 00:42 | XMS_ITS | Encounter Summary ---
Author Organization [facility] Address [address] [place] [address]. [place] [address] Care Team Providers Care Meter Readers Supervisor Name Role Phone Edu Crawford DPM Unavailable Enrico Felton DO Unavailable [phone] Maddie Mae Unavailable Unavailable No Ref-Primary, Physician Primary Care Provider Enrico Felton DO Primary Care Provider [phone] Aydee Mcgill RN Unavailable [phone] Wendy Agustin APRN PACKAGING SUPERVISOR Unavailable [phone] Reason for Visit * Reason Onset Date Comments Refill Request 06/23/2022 oxybutynin ER (D ITROPAN XL) 5 MG 24 hr tablet Encounter Details Date Type Department Care Team (Late st Contact Info) Description 06/23/2022 Telephone [facility] [address] [place] [address] [place] [address] [place] [address] Refill Request (oxybutynin ER (DITROPAN XL) [...] Answer Date Recorded PHQ-2 Score 1 02/20/2022 [facility] - Occupational Stress [...] to same recorded line. Has not read JoyTunes message. We have now made 5 attempts [...] if it a work number for Alyssa. Joy[employer] message sent. Katie Velasquez R.N. * Telephone [...] Info) Description 12/21/2023 2:00 PM CDT Appointment [facility] [place] [address] [place] [address] Kingsley Westbrook DPM [address] [place] [address] documented as of this encounter Goals Goal Patient Goal Type Associated Problems Recent Progress Patient-Stated? Author Financial Wellbeing General Yes Rosey Alexander, SPRAY TECHNICIAN documented as of this encounter Visit Diagnoses Not on filedocumented in this encounter Additional Health Concerns Infection Onset Date Last Indicated Resolved Time 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 per 09/01/16 event technician note; left foot tissue 10/08/16 10/11/2018 02/27/2019 Assessment Noted Time PHQ-9 Depression Total Score: 5 02/21/20 22 2:07 PM WOOL MERCHANT documented as of this encounter Care Teams Meter Readers Supervisor Relationship Specialty Start Date End Date No Ref-Primary, Physician PCP - General 02/20/22 06/29/22 [place] [address] [place] [address] PCP - General Family Medicine 06/30/22 [place] [address] [facility] [address] [place] [address] Podiatry 10/18/16 [place] [address] [place] [address] Assigned PCP 08/29/20 10/08/23 Maddie Mae Personal Advocate & Liaison (PAL) Family Medicine 12/28/21 Aydee Mcgill RN RN Clinical Product Navigator Primary Care - CC 06/30/22 06/30/22 Wendy Agustin APRN PACKAGING SUPERVISOR [address] [facility] [address] [place] [address] Assigned PCP 10/09/23 documented as of this encounter
--- OUTSIDE RECORDS SUMMARY | 2023-12-12 00:42 | XMS_ITS | Encounter Summary ---
Author Organization [facility] Address [address] [place] [address]. [place] [address] Care Team Providers Care Hotel Valet Attendant Name Role Phone Edu Crawford DPM Unavailable [phone] Enrico Felton DO Unavailable [phone] Maddie Mae Unavailable Unavailable Enrico Felton DO Primary Care Provider [phone] Reason for Visit * Reason Onset Date Comments Referral 09/13/2023 Foot Wound Encounter Details Date Type Department Care Team (Late st Contact Info) Description 09/13/2023 Telephone [facility] [place] [address] [place] [phone] [place] Medical Office Building [address] [place] [address] Referral (Foot Wound) Social History Tobacco Use Types Packs/Day Years [...] How often do you attend taoist or restoration serv ices? Patient declined 02/20/2022 Do you [...] Date Recorded PHQ-2 Score 1 09/13/2023 [facility] - Occupational Stress Questionnaire Answer Date [...] encounter Miscellaneous Notes * Telephone Encounter - Ciera Flores - 09/17/2023 3:18 PM CDT Scheduled * Telephone Encounter - Eden Cano - 09/13/2023 1:07 PM CDT Left message to call and schedule appointment * Telephone Encounter - Damari Townsend RN - 09/13/2023 12:09 PM CDT Consult received via Workqueue from Wendy Agustin APRN CNP in [facility] for wound of the foot Does the patient have an open and draining wound? Yes Please schedule with Ebonie Barr PA-C, Rosario Sheffield NP, Jeremy Sparks M.D., or Andreas Montenegro CNP at [facility] [place] for next available appointment. For all providers, Taniya Quintero PA-C, Dr. Stevenson, Rosario Sheffield PICKING TECH or Dr. Pham, please schedule a follow up 4 weeks after initial appointment. --If unable to schedule within 2-[address] on cancellation list-- Is the patient able to make their own medical decisions? Yes Can the patient be scheduled on a Sunday (Ankit) or (Yohannes)? Yes Is patient a BEATRIZ lift? PLEASE INQUIRE WHEN MAKING THE APPOINTMENT AND PUT IN APPOINTMENT NOTES Routing to Wound Healing Scheduling. documented in this encounter Plan of Treatment Upcoming Encounters Date Type Department Care Team (Late st Contact Info) Description 12/21/2023 2:00 PM CDT Appointment [facility] [place] [address] [place] [address] [address] [place] [phone] Kingsley Westbrook DPM [address] [place] [id number] documented as of this encounter Goals Goal Patient Goal Type Associated Problems Recent Progress Patient-Stated? 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 per 09/01/16 dry house worker note; left foot tissue 10/08/16 10/11/2018 02/27/2019 Assessment Noted Time PHQ-9 Depression Total Score: 1 09/13/19 24 10:02 AM CDT documented as of this encounter Care Teams Hotel Valet Attendant Relationship Specialty [place] [address] [place] [address] PCP - General Family Medicine 06/30/22 [place] [address] [facility] [address] [place] [address] Podiatry 10/18/16 [place] [address] [place] [address] Assigned PCP 08/29/20 10/08/23 Maddie Mae Personal Advocate & Liaison (PAL) Family Medicine 12/28/21 documented as of this encounter
--- OUTSIDE RECORDS SUMMARY | 2023-12-12 00:42 | XMS_ITS | Encounter Summary ---
Author Organization [place] Address [address] [place] [address] Care Team Providers Care Optoelectronics Engineer Name Role Phone Edu Crawford DPBharath Unavailable [phone] Enrico Felton DO Unavailable [phone] Maddie Mae Unavailable Unavailable Enrico Felton DO Primary Care Provider [phone] Wendy Agustin APRN HOSPITAL EDUCATOR Unavailable [phone] Encounter Details Date Type Department Care Team (Late st Contact Info) Description 09/28/2023 [facility] Medical Advice [address] [address] Melida Pickering, CARE PROFESSIONAL Social History Tobacco Use Types Packs/Day Years [...] Never 02/20/2022 How often do you attend roman catholic or moravian serv ices? Patient declined 02/20/2022 Do you belong to any clubs o r organizations such as roman catholic groups, unions, fraternal or athletic groups, or [...] Answer Date Recorded PHQ-2 Score 1 09/13/2023 [facility] - Occupational Stress Questionnaire Answer Date Recorded [...] a care home (including now)? No 02/20/2022 Adolescent Education [...] Info) Description 12/21/2023 2:00 PM CDT Appointment [facility] [address] [place] [phone] Kingsley Westbrook DPM [address] [place], [place] [address] documented as of this encounter Goals Goal Patient Goal Type Associated Problems Recent Progress Patient-Stated? Author Financial Wellbeing General Yes Rosey Alexander, ETCHER ELECTROLYTIC documented as of this encounter Visit Diagnoses Not on filedocumented in this encounter Additional Health Concerns Infection Onset Date Last Indicated Resolved Time 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 per 09/01/16 software testing specialist note; left foot tissue 10/08/16 10/11/2018 02/27/2019 Assessment Noted Time PHQ-9 Depression Total Score: 1 09/13/19 24 10:02 AM CDT documented as of this encounter Care Teams Optoelectronics Engineer Relationship Specialty [place] [address] [place] [address] PCP - General Family Medicine 06/30/22 [place] [address] [facility] [address] [place], [place] [address] Podiatry 10/18/16 [place] [address] [place], [place] [address] Assigned PCP 08/29/20 10/08/23 Maddie Mae Personal Advocate & Liaison (PAL) Family Medicine 12/28/21 Wendy Agustin APRN [facility] [address] [place] [address] Assigned PCP 10/09/23 documented as of this encounter
--- OUTSIDE RECORDS SUMMARY | 2023-12-12 00:42 | XMS_ITS | Encounter Summary ---
Author Organization [place] Address [address] [place] [address] Care Team Providers Care Commercial Front Load Driver Name Role Phone Edu Crawford DPM Unavailable [phone] Enrico Felton DO Unavailable [phone] Maddie Mae Unavailable Unavailable Enrico Felton DO Primary Care Provider [phone] Encounter Details Date Type Department Care Team (Latest Contact Info) Description 09/13/2023 Travel Social History Tobacco Use Types Packs/Day [...] How often do you attend sabianism or baptist serv ices? Patient declined 02/20/2022 Do you [...] Answer Date Recorded PHQ-2 Score 1 09/13/2023 [facility] - [...] Info) Description 12/21/2023 2:00 PM CDT Appointment [facility] [address] [place] [address] Kingsley Westbrook DPM [address] [place] [id number] documented as of this encounter Goals Goal Patient Goal Type Associated Problems Recent Progress Patient-Stated? Author Financial Wellbeing General Yes Rosey Alexander, TRANSITION ASSISTANT documented as of this encounter Visit Diagnoses Not on filedocumented in this encounter Additional Health Concerns Infection Onset Date Last Indicated Resolved Time 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 per 09/01/16 business solutions analyst note; left foot tissue 10/08/16 10/11/2018 02/27/2019 Assessment Noted Time PHQ-9 Depression Total Score: 1 09/13/19 24 10:02 AM CDT documented as of this encounter Care Teams Commercial Front Load Driver Relationship Specialty [place] [address] [place] [address] PCP - General Family Medicine 06/30/22 [place] [address] [facility] [address] [place] [address] Podiatry 10/18/16 [place] [address] [place] [address] Assigned PCP 08/29/20 10/08/23 Maddie Mae Personal Advocate & Liaison (PAL) Family Medicine 12/28/21 documented as of this encounter
--- OUTSIDE RECORDS SUMMARY | 2023-12-12 00:42 | XMS_ITS | Encounter Summary ---
Author Organization [place] Address [address] [place] [address] Care Team Providers Care Emergency Vehicle Operations Instructor Name Role Phone Edu Crawford DPM Unavailable [phone] Maddie Mae Unavailable Unavailable Enrico Felton DO Primary Care Provider [phone] Wendy Agustin APRN CLIPPER AND TURNER Unavailable [phone] Encounter Details Date Type Department Care Team (Late st Contact Info) Description 10/09/2023 [facility] Medical Advice [address] [address] Melida Pickering, REMOTE ENCODING OPERATIONS SUPERVISOR Social History Tobacco Use Types Packs/Day Years [...] Never 02/20/2022 How often do you attend voodoo or christianity serv ices? Patient declined 02/20/2022 Do you belong to any clubs o r organizations such as voodoo groups, unions, fraternal or athletic groups, or [...] Answer Date Recorded PHQ-2 Score 1 09/13/2023 [facility]at ional [facility] - Occupational Stress Questionnaire Answer Date [...] PM CDT Appointment [facility] [address] [phone] Kingsley Westbrook DPM [address] [place] [address] documented as of this encounter Goals Goal Patient Goal Type Associated Problems Recent Progress Patient-Stated? Author Financial Wellbeing General Yes Rosey Alexander, CONVERTIBLE SOFA BEDSPRING TESTER documented as of this encounter Visit Diagnoses Not on filedocumented in this encounter Additional Health Concerns Infection Onset Date Last Indicated Resolved Time 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 per 09/01/16 client delivery specialist note; left foot tissue 10/08/16 10/11/2018 02/27/2019 Assessment Noted Time PHQ-9 Depression Total Score: 1 09/13/19 24 10:02 AM CDT documented as of this encounter Care Teams Emergency Vehicle Operations Instructor Relationship Specialty [place] [address] [place] [address] PCP - General Family Medicine 06/30/22 Edu Crawford DPM [address] [facility] [address] [place] [address] Podiatry 10/18/16 Maddie Mae Personal Advocate & Liaison (PAL) Family Medicine 12/28/21 Wendy Agustin APRN [employer]PER [employer] TURNER [address] [facility] [address] [place], [place] [address] Assigned PCP 10/09/23 documented as of this encounter
--- OUTSIDE RECORDS SUMMARY | 2023-12-12 00:42 | XMS_ITS | Encounter Summary ---
Author Organization [place] Address [address] [place] [address]. [place] [address] Care Team Providers Care Raimann Machine Operator Name Role Phone Edu Crawford DPBharath Unavailable [phone] Enrico Felton DO Unavailable [phone] Maddie Mae Unavailable Unavailable Enrico Felton DO Primary Care Provider [phone] Wendy Agustin APRN ALLEY WORKER Unavailable [phone] Encounter Details Date Type Department Care Team (Late st Contact Info) Description 01/23/2023 [facility] Medical Advice [facility] [address] 4[address] [place] [address] Chelsi Flores, RN Social History Tobacco Use Types Packs/Day [...] How often do you attend religious or baptist serv ices? Patient declined 02/20/2022 [...] Answer Date Recorded PHQ-2 Score 1 02/20/2022 [facility] - [...] in a snf (including now)? No 02/20/2022 Adolescent Education Answer [...] Info) Description 12/21/2023 2:00 PM CDT Appointment [facility] [place] [address] [place] [address] [address] [place] [address] Kingsley Westbrook DPM [address] [place] [address] documented as of this encounter Goals Goal Patient Goal Type Associated Problems Recent Progress Patient-Stated? 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 per 09/01/16 webfocus developer note; left foot tissue 10/08/16 10/11/2018 02/27/2019 Assessment Noted Time PHQ-9 Depression Total Score: 5 02/21/20 22 2:07 PM GENETIC COUNSELLOR documented as of this encounter Care Teams Raimann Machine Operator Relationship Specialty [place] [address] [place] [address] PCP - General Family Medicine 06/30/22 [place] [address] [facility] [address] [place] [address] Podiatry 10/18/16 [place] [address] [place] [address] Assigned PCP 08/29/20 10/08/23 Maddie Mae Personal Advocate & Liaison (PAL) Family Medicine 12/28/21 Wendy Agustin APRN ALLEY WORKER [address] [facility] [address] [place] [address] Assigned PCP 10/09/23 documented as of this encounter
--- OUTSIDE RECORDS SUMMARY | 2023-12-12 00:42 | XMS_ITS | Encounter Summary ---
Author Organization [place] Address [address] [place] [address]. [place] [address] Care Team Providers Care Crime Scene Technician Name Role Phone MirandaStefan lazoemy DPM Unavailable [phone] Maddie Mae Unavailable Unavailable Enrico Felton DO Primary Care Provider [phone] Wendy Agustin APRN TOOL AND EQUIPMENT RENTAL CLERK Unavailable [phone] Reason for Visit * Reason Onset Date Comments Refill Request 10/30/2023 Encounter Details Date Type Department Care Team (Late st Contact Info) Description 10/30/[address] [address] [place] [id number] [place] [address] Refill Request Social History Tobacco Use Types [...] Never 02/20/2022 How often do you attend samaritan or taoism serv ices? Patient declined 02/20/2022 Do you belong to any clubs o r organizations such as samaritan groups, unions, fraternal or athletic groups, or [...] Answer Date Recorded PHQ-2 Score 1 09/13/2023 [facility] - Occupational Stress Questionnaire Answer [...] in a halfway (including now)? No 02/20/2022 Adolescent Education Answer [...] encounter Miscellaneous Notes * Telephone Encounter - Ivanna Turner RN - 10/30/2023 12:34 PM CDT Spoke with pt and advised of information. Pt has appt 11/28/23. Will wait for appt to go over information. Pt will request refills from the pain clinic until her appt with PCP. Ivanna Glover RN * Telephone Encounter - Tessa Radford RN - 10/30/2023 12:30 PM CDT Images from the original note were not included. Please discuss with patient my thoughts in my patient message to her today, and help her get records from her pain management clinic sent to me to review. I want records from at least the past year. PT 10/30/23 12:22 PM Enrico Felton, signed 3 or * Telephone Encounter - Radha De Luna RN - 10/30/2023 10:26 AM CDT S-(situation): Patient calls to request refill on Celebrex 100mg, Lyrica 150mg, Ondansetron 4mg, and Mirabegfron 25mg. B-(background): Patient reports medications were previously prescribed by pain clinic, [facility] [place]. Patient has upcoming appointment with Dr. Felton on 11/28/2023. A-(assessment): Patient no longer wants to go to pain clinic because it is too far away and too expensive. Patient has appointment with pain clinic on 11/13/2023, but patient says she may not go to this appointment. R-(recommendations): Routing refills to primary care provider to advise. Thank you, Caesra De Luna, salesperson men's and boys' clothing [facility] 10:32 AM 10/30/2023 documented in this encounter Plan of Treatment Upcoming Encounters Date Type Department Care Team (Late st Contact Info) Description 12/21/2023 2:00 PM CDT Appointment [facility] [address] [place] [address] Kingsley Westbrook DPM [address] [place] [address] documented as of this encounter Goals Goal Patient Goal Type Associated Problems Recent Progress Patient-Stated? Author Financial Wellbeing General Yes Rosey Alexander, RETAIL WORKER documented as of this encounter Visit Diagnoses Diagnosis Other chronic pain- Primary Overactive bladder Hypertonicity of bladder Spasticity Abnormal involuntary movements Osteoarthritis of cervical spine, unspecified spinal osteoarthritis complication status DDD (degenerative disc disease), lumbar Degeneration of lumbar or lumbosacral intervertebral disc Gastroesophageal reflux disease, unspecified whether esophagitis present documented in this encounter Additional Health Concerns Infection Onset Date Last Indicated Resolved Time 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 per 09/01/16 seismometer operator note; left foot tissue 10/08/16 10/11/2018 02/27/2019 Assessment Noted Time PHQ-9 Depression Total Score: 1 09/13/19 10:02 AM CDT documented as of this encounter Care Teams Crime Scene Technician Relationship Specialty [place] [address] [place] [address] PCP - General Family Medicine 06/30/22 [place] [address] [facility] [address] [place], [place] [id number] Podiatry 10/18/16 Maddie Mae Personal Advocate & Liaison (PAL) Family Medicine 12/28/21 Wendy Agustin APRN TOOL AND EQUIPMENT RENTAL CLERK [address] [facility] [address] [place] [address] Assigned PCP 10/09/23 documented as of this encounter
--- OUTSIDE RECORDS SUMMARY | 2023-12-12 00:42 | XMS_ITS | Encounter Summary ---
Author Organization [place] Address [address] [place] [address] Care Team Providers Care Complaint Coordinator Name Role Phone Edu Crawford DPM Unavailable [phone] Enrico Felton DO Unavailable [phone] Maddie Mae Unavailable Unavailable Enrico Felton DO Primary Care Provider [phone] Wendy Agustin APRN FIELD AGENT Unavailable [phone] Encounter Details Date Type Department Care Team (Late st Contact Info) Description 12/26/2022 [facility] Medical Advice [address] [address] Melida Pickering, PLATE KEEPER Social History Tobacco Use Types Packs/Day Years [...] Never 02/20/2022 How often do you attend nondenominational or mosque serv ices? Patient declined 02/20/2022 Do you belong to any clubs o r organizations such as nondenominational groups, unions, fraternal or athletic groups, or [...] Answer Date Recorded PHQ-2 Score 1 02/20/2022 [facility] Occupat ional Health - Occupational [...] Info) Description 12/21/2023 2:00 PM CDT Appointment [facility] [place] [address] [place] [address] [address] [place] [address] Kingsley Westbrook DPM [address] [place] [address] documented as of this encounter Goals Goal Patient Goal Type Associated Problems Recent Progress Patient-Stated? Author Financial Wellbeing General Yes Rosey Alexander, ENTERPRISE APPLICATION ARCHITECT documented as of this encounter Visit Diagnoses Not on filedocumented in this encounter Additional Health Concerns Infection Onset Date Last Indicated Resolved Time 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 per 09/01/16 cleaning crew member note; left foot tissue 10/08/16 10/11/2018 02/27/2019 Assessment Noted Time PHQ-9 Depression Total Score: 5 02/21/20 22 2:07 PM TONGUE AND GROOVE MACHINE FEEDER documented as of this encounter Care Teams Complaint Coordinator Relationship Specialty [place] [address] [place] [address] PCP - General Family Medicine 06/30/22 [place] [address] [facility] [address] [place] [address] Podiatry 10/18/16 [place] [address] [place] [address] Assigned PCP 08/29/20 10/08/23 Maddie Mae Personal Advocate & Liaison (PAL) Family Medicine 12/28/21 Wendy Agustin APRN FIELD AGENT [address] [facility] [address] [place] [address] Assigned PCP 10/09/23 documented as of this encounter
--- OUTSIDE RECORDS SUMMARY | 2023-12-12 00:42 | XMS_ITS | Encounter Summary ---
Author Organization [place] Address [address] [place] [address] Care Team Providers Care Cold Type Artist Name Role Phone Edu Crawford DPBharath Unavailable [phone] Enrico Felton DO Unavailable [phone] Maddie Mae Unavailable Unavailable Enrico Felton DO Primary Care Provider [phone] Wendy Agustin APRN SENIOR ELECTRICAL DESIGNER Unavailable [phone] Encounter Details Date Type Department Care Team (Late st Contact Info) Description 07/25/2022 [facility] Medical Advice [address] [address] [place] Social History Tobacco [...] How often do you attend religious or advent serv ices? Patient declined 02/20/2022 [...] Date Recorded PHQ-2 Score 1 02/20/2022 [facility] Occupat ional Health - Occupational [...] PM CDT Appointment [facility] [place] [address] [place] [address] [address] [place] [address] Kingsley Westbrook DPM [address] [place], [place] [address] documented as of this encounter Goals Goal Patient Goal Type Associated Problems Recent Progress Patient-Stated? Author Financial Wellbeing General Yes Rosey Alexander, ADVANCED PRACTICE NURSE documented as of this encounter Visit Diagnoses Not on filedocumented in this encounter Additional Health Concerns Infection Onset Date Last Indicated Resolved Time 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 per 09/01/16 exercise rider note; left foot tissue 10/08/16 10/11/2018 02/27/2019 Assessment Noted Time PHQ-9 Depression Total Score: 5 02/21/20 22 2:07 PM HOT STRIP MILL SUPERVISOR documented as of this encounter Care Teams Cold Type Artist Relationship Specialty [place] [address] [place] [address] PCP - General Family Medicine 06/30/22 [place] [address] [facility] [address] [place] [address] Podiatry 10/18/16 [place] [address] [place] [address] Assigned PCP 08/29/20 10/08/23 Maddie Mae Personal Advocate & Liaison (PAL) Family Medicine 12/28/21 Wendy Agustin APRN [facility] [address] [place] [address] Assigned PCP 10/09/23 documented as of this encounter
--- OUTSIDE RECORDS SUMMARY | 2023-12-12 00:42 | XMS_ITS | Encounter Summary ---
Author Organization [place] Address [address] [place] [address] Care Team Providers Care Rn Telehealth Name Role Phone Edu Crawford DPM Unavailable [phone] Enrico Felton DO Unavailable [phone] Maddie Mae Unavailable Unavailable Enrico Felton DO Primary Care Provider [phone] Wendy Agustin APRN HORSE STUD MANAGER Unavailable [phone] Encounter Details Date Type Department Care Team (Late st Contact Info) Description 01/08/2023 [facility] Medical Advice [address] [address] Melida Pickering, ACETONE BUTTON PASTER Social History Tobacco Use Types Packs/Day Years [...] Never 02/20/2022 How often do you attend protestant or mandaen serv ices? Patient declined 02/20/2022 Do you belong to any clubs o r organizations such as protestant groups, unions, fraternal or athletic groups, or [...] place to sleep or slept in a retirement (including now)? No 02/20/2022 Adolescent Education Answer [...] Info) Description 12/21/2023 2:00 PM CDT Appointment [facility] [place] [address] [place] [address] [address] [place] [address] Kingsley Westbrook DPM [address] [place] [address] documented as of this encounter Goals Goal Patient Goal Type Associated Problems Recent Progress Patient-Stated? Author Financial Wellbeing General Yes Rosey Alexander, STERILE PREPARATION TECHNICIAN documented as of this encounter Visit Diagnoses Not on filedocumented in this encounter Additional Health Concerns Infection Onset Date Last Indicated Resolved Time 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 per 09/01/16 senior ios software engineer note; left foot tissue 10/08/16 10/11/2018 02/27/2019 Assessment Noted Time PHQ-9 Depression Total Score: 5 02/21/20 22 2:07 PM PICKLE PUMPER documented as of this encounter Care Teams Rn Telehealth Relationship Specialty [place] [address] [place] [address] PCP - General Family Medicine 06/30/22 [place] [address] [facility] [address] [place] [address] Podiatry 10/18/16 [place] [address] [place] [address] Assigned PCP 08/29/20 10/08/23 Maddie Mae Personal Advocate & Liaison (PAL) Family Medicine 12/28/21 Wendy Agustin APRN HORSE STUD MANAGER [address] [facility] [address] [place] [address] Assigned PCP 10/09/23 documented as of this encounter
--- OUTSIDE RECORDS SUMMARY | 2023-12-12 00:42 | XMS_ITS | Encounter Summary ---
Author Organization [facility] Address [address] [place] [address] Care Team Providers Care Auxiliary Engineer Name Role Phone Shermannoah Edu DPM Unavailable Enrico Felton DO Unavailable [phone] Maddie Mae Unavailable Unavailable No Ref-Primary, Physician Primary Care Provider Enrico Felton DO Primary Care Provider [phone] Aydee Mcgill RN Unavailable [phone] Wendy Agustin APRN LIVESTOCK COMMISSION AGENT Unavailable [phone] Encounter Details Date Type Department Care Team (Late st Contact Info) Description 06/26/2022 [facility] Medical Advice [address] [address] Katie Velasquez, ROQUE Social History Tobacco Use Types Packs/Day [...] Never 02/20/2022 How often do you attend confucianism or mosque serv ices? Patient declined 02/20/2022 Do you belong to any clubs o r organizations such as confucianism groups, unions, fraternal or athletic groups, or [...] Score 1 02/20/2022 [facility] - Occupational Stress Questionnaire Answer Date [...] place to sleep or slept in a half-way (including now)? No 02/20/2022 Sex and Gender Information Value Date Recorded Sex Assigned at Not on file Gender Identity Not on file Sexual Orientation Not on file documented as of this encounter Plan of Treatment Upcoming Encounters Date Type Department Care Team (Late st Contact Info) Description 12/21/2023 2:00 PM CDT Appointment [facility] [address] [place] [address] Kingsley Westbrook DPM [address] [place] [address] documented as of this encounter Goals Goal Patient Goal Type Associated Problems Recent Progress Patient-Stated? Author Financial Wellbeing General Yes Rosey Alexander, ELEMENTARY ASSISTANT TEACHER documented as of this encounter Visit Diagnoses Not on filedocumented in this encounter Additional Health Concerns Infection Onset Date Last Indicated Resolved Time 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 per 09/01/16 commercial real estate sales manager note; left foot tissue 10/08/16 10/11/2018 02/27/2019 Assessment Noted Time PHQ-9 Depression Total Score: 5 02/21/20 22 2:07 PM REPORTING ANALYST documented as of this encounter Care Teams Auxiliary Engineer Relationship Specialty Start Date End Date No Ref-Primary, Physician PCP - General 02/20/22 06/29/22 [place] [address] [place] [address] PCP - General Family Medicine 06/30/22 [place] [address] [facility] [address] [place] [address] Podiatry 10/18/16 [place] [address] [place] [address] Assigned PCP 08/29/20 10/08/23 Maddie Mae Personal Advocate & Liaison (PAL) Family Medicine 12/28/21 Aydee Mcgill RN RN Clinical Product Navigator Primary Care - CC 06/30/22 06/30/22 Wendy Agustin APRN LIVESTOCK COMMISSION AGENT [address] [facility] [address] [place] [address] Assigned PCP 10/09/23 documented as of this encounter
--- OUTSIDE RECORDS SUMMARY | 2023-12-12 00:42 | XMS_ITS | Encounter Summary ---
Author Organization [place] Address [address] [place] [address] Care Team Providers Care Propeller Tester Name Role Phone Edu Crawford DPBharath Unavailable [phone] Enrico Felton DO Unavailable Maddie Mae Unavailable Unavailable Enrico Felton DO Primary Care Provider [phone] Wendy Agustin APRN STAFF DEVELOPMENT COORDINATOR Unavailable [phone] Encounter Details Date Type Department Care Team (Late st Contact Info) Description 10/06/2022 [facility] [address] [address] Lulu Samano MA Social History [...] How often do you attend adventism or lutheran serv ices? Patient declined 02/20/2022 Do you [...] Answer Date Recorded PHQ-2 Score 1 02/20/2022 [facility] Occupat ional Health - [...] Info) Description 12/21/2023 2:00 PM CDT Appointment [facility] [address] [place] [address] Kingsley Westbrook DPM [address] [place] [address] documented as of this encounter Goals Goal Patient Goal Type Associated Problems Recent Progress Patient-Stated? Author Financial Wellbeing General Yes Rosey Alexander, LOG TRUCK DRIVER documented as of this encounter Visit Diagnoses Not on filedocumented in this encounter Additional Health Concerns Infection Onset Date Last Indicated Resolved Time 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 per 09/01/16 taker off braker machine note; left foot tissue 10/08/16 10/11/2018 02/27/2019 Assessment Noted Time PHQ-9 Depression Total Score: 5 02/21/20 22 2:07 PM COMMERCIAL REAL ESTATE ASSISTANT documented as of this encounter Care Teams Propeller Tester Relationship Specialty [place] [address] [place] [address] PCP - General Family Medicine 06/30/22 [place] [address] [facility] [address] [place] [address] Podiatry 10/18/16 [place] [address] [place] [address] Assigned PCP 08/29/20 10/08/23 Maddie Mae Personal Advocate & Liaison (PAL) Family Medicine 12/28/21 Wendy Agustin APRN STAFF DEVELOPMENT COORDINATOR [address] [facility] [address] [place] [address] Assigned PCP 10/09/23 documented as of this encounter
--- OUTSIDE RECORDS SUMMARY | 2023-12-12 00:42 | XMS_ITS | Encounter Summary ---
Author Organization [facility] Address [address] [place] [address]. [place] [address] Care Team Providers Care Daycare Manager Name Role Phone Edu Crawford DPM Unavailable [phone] Enrico Felton DO Unavailable [phone] Maddie Mae Unavailable Unavailable Enrico Felton DO Primary Care Provider [phone] Reason for Referral * Consultation (Urgent: 3-5 Days) - Pending Review Specialty Diagnoses / Procedures Referred By Contac t Referred To Contact Wound Care Diagnoses Penetrating foot wound, right, initial encounter Wendy Agustin APRN TRANSCRIBING OPERATORS SUPERVISOR [address] [facility] [address] [place] [address] [facility] [address] [facility] [address] [place] [address] Referral ID Status Reason Start Date Expiration Date V isits Requested Visits Authorized [id number] Pending Review 09/13/2023 09/12/2024 1 1 Question Answer Preferred Location: [facility] [place] [facility] Scheduling Instructions: Please call to schedule your appointment Reason for Referral: Venous Leg/Foot Ulcer Wound Location: Foot [facility] any known circulatory problems: N/A Is patient seeking surgery? No Does the patient require a Romi lift? No Comments Please be aware that coverage of these services is subject to the terms and limitations of your health insurance plan. Call member services at your health plan with any benefit or coverage questions. Please call to schedule your appointment Reason for Visit * Reason Comments Wound Check Patient is being see n for a wound on her right foot. Encounter Details Date Type Department Care Team (Late st Contact Info) Description 09/13/2023 11:00 AM CDT Office Visit [facility] [address] [place] [address] Wendy Agustin APRN TRANSCRIBING OPERATORS SUPERVISOR [address] [place] [address] Penetrating foot wound, right, initial encounter (Primary Dx); Overactive bladder Social History Tobacco Use Types Packs/Day Years [...] Never 02/20/2022 How often do you attend faith or spiritism serv ices? Patient declined 02/20/2022 Do you belong to any clubs o r organizations such as faith groups, unions, fraternal or athletic groups, or [...] Answer Date Recorded PHQ-2 Score 1 09/13/2023 [facility] of Occupat ional Health - Occupational Stress [...] Sign Reading Time Taken Comments Blood Pressure 121/70 09/13/2023 10:23 AM CDT Pulse 81 09/13/2023 10:23 AM CDT Temperature 36.2 ??C (97.1 ??F) 09/13/2023 10:23 AM C DT Respiratory Rate 18 09/13/2023 10:23 AM CDT Oxygen Saturation 94% 09/13/2023 10:23 AM CDT Inhaled Oxygen Concentration - - Weight 95.4 kg (210 lb 6.4 oz) 09/13/2023 10:23 AM CDT Height 172.2 cm (5' 7.8) 09/13/2023 10:23 AM CD T Body Mass Index 32.18 09/13/2023 10:23 AM CDT documented in this encounter Progress Notes * Wendy Agustin APRN TRANSCRIBING OPERATORS SUPERVISOR - 09/13/2023 11:00 AM CDT Assessment & Plan (S91.331A) Penetrating foot wound, right, initial encounter (primary encounter diagnosis) Comment: Patient presents to the clinic with a chief complaint of a wound on her right foot. Patient states that it started a couple months ago. 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 The wound itself was not clean and had quite a bit of odor. At this time I will start her on antibiotic to treat infection and get her established with wound Plan: Wound Care Referral, cephALEXin (KEFLEX) 500 MG capsule Wound referral placed. Medication sent to pharmacy. (N32.81) Overactive bladder Comment: Patient also would like to start a medication to help with her overactive bladder. She states she has been dealing with it for 2 to 3 years where she has urinary incontinence as she cannot get to the bathroom soon enough. Today we will start her with a medication to help with overactive fide dder. Plan: mirabegron (MYRBETRIQ) 25 MG 24 hr tablet Medication sent to pharmacy. Discussed side effects of medication. Nicotine/Tobacco Cessation She reports that she has been smoking cigarettes. She has been exposed to tobacco smoke. She has never used smokeless tobacco. Nicotine/Tobacco Cessation Plan Information offered: Patient not interested at this time BMI Estimated body mass index is 32.18 kg/m?? as calculated from the following: Height as of this encounter: 1.722 m (5' 7.8). Weight as of this encounter: 95.4 kg (210 lb 6.4 oz). Weight management plan: Patient was referred to their PCP to discuss a diet and exercise plan. Amy Shah is a 62 year old, presenting for the following health issues: Patient is here for a wound on the bottom of her right foot. She has neuropathy in her feet and shekept getting infections so she doesn't have any toes. She states the wound has been there for a couple of months. There is a deep hole Urinary issues: she has problems with urgency and incontinence. This has been going on for a long time. Not concerned about a UTI. Wound Check (Patient is being seen for a wound on her right foot.) 09/13/2023 10:21 AM Additional Questions Roomed by Macey Issa Wound Check History of Present Illness Reason for visit: Sore on bottom of my foot Symptom onset: More than a month Symptoms include: Callusis on the bottom of my foot and i have tried t heal with no suces Symptom intensity: Moderate Symptom progression: Staying the same Had these symptoms before: Yes Has tried/received treatment for these symptoms: Yes Previous treatment was successful: No What makes it worse: Na What makes it better: Na She eats 2-3 servings of fruits and vegetables daily.She consumes 0 sweetened beverage(s) daily.Sheexercises with enough effort to increase her heart rate 9 or less minutes per day. She exercises with enough effort to increase her heart rate 3 or less days per week. She is taking medications regularly. Review of Systems Constitutional, HEENT, cardiovascular, pulmonary, gi and gu systems are negative, except as otherwise noted. Objective BP 121/70 Pulse 81 Temp 97.1 ??F (36.2 ??C) (Tympanic) Resp 18 Ht 1.722 m (5' 7.8) Wt 95.4 kg (210 lb 6.4 oz) LMP 09/10/2012 (Approximate) SpO2 94% No BMI 32.18 kg/m?? Body mass index is 32.18 kg/m??. Physical Exam GENERAL: alert and no distress Right foot: No digits, wound on bottom pad of foot. Puncture hole the size of a dime. Red, bleeding, dirt present. Signed Electronically by: Wendy Agustin APRN CNP documented in this encounter Plan of Treatment Upcoming Encounters Date Type Department Care Team (Late st Contact Info) Description 12/21/2023 2:00 PM CDT Appointment [facility] [address] [place] [address] Kingsley Westbrook DPM [address] [place] [address] Scheduled Referrals Name Type Priority Associated Diagnoses Orde r Schedule Wound Care Referral Referral Urgent: 3-5 Days Penetrating foot wound, right, initial encounter Expected: 09/13/2023 (Approximate), Expires: 09/12/2024 documented as of this encounter Goals Goal Patient Goal Type Associated Problems Recent Progress Patient-Stated? 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 per 09/01/16 director of child welfare services note; left foot tissue 10/08/16 10/11/2018 02/27/2019 Assessment Noted Time PHQ-9 Depression Total Score: 1 09/13/19 24 10:02 AM CDT documented as of this encounter Care Teams Daycare Manager Relationship Specialty Start [place] [address] [place] [address] PCP - General Family Medicine 06/30/22 [place] [address] [facility] [address] [place] [address] Podiatry 10/18/16 [place] [address] [place] [address] Assigned PCP 08/29/20 10/08/23 Maddie Mae Personal Advocate & Liaison (PAL) Family Medicine 12/28/21 documented as of this encounter
--- OUTSIDE RECORDS SUMMARY | 2023-12-12 00:43 | XMS_ITS | Encounter Summary ---
Author Organization [facility] Address [address] [place] [address] Care Team Providers Care Fabric Designer Name Role Phone Yvette Edu DPM Unavailable [phone] Enrico Felton DO Primary Care Provider [phone] Enrico Felton DO Unavailable [phone] Rebecca Palumbo MD Unavailable [phone] Anders Ramachandran Unavailable Unavailable Magdalena Brice Unavailable Unavailable Maddie Mae Unavailable Unavailable No Ref-Primary, Physician Primary Care Provider Enrico Felton DO Primary Care Provider [phone] Aydee Mcgill RN Unavailable [phone] Wendy Agustin APRN ADOBE BLOCK MAKER Unavailable [phone] Encounter Details Date Type Department Care Team (Late st Contact Info) Description 06/01/2021 MyC Medical Advice [facility] [address] [place] [address] Lulu Samano MA Social History Tobacco [...] PM CDT Appointment [facility] [address] [place] [address] Kingsley Westbrook DPM [address] [place], [place] [address] documented as of this encounter Goals Goal Patient Goal Type Associated Problems Recent Progress Patient-Stated? Author Financial Wellbeing General Yes Benjamin, Rosey K, SCALE EXPERT documented as of this encounter Visit Diagnoses Not on filedocumented in this encounter Additional Health Concerns Infection Onset Date Last Indicated Resolved Time 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 per 09/01/16 plastics supervisor note; left foot tissue 10/08/16 10/11/2018 02/27/2019 Assessment Noted Time PHQ-9 Depression Total Score: 3 08/24/19 21 12:19 PM CDT documented as of this encounter Care Teams Fabric Designer Relationship Specialty [place] [address] [place] [address] PCP - General Family Medicine 08/24/20 01/23/22 No Ref-Primary, Physician PCP - General 02/20/22 06/29/22 [place] [address] [place] [address] PCP - General Family Medicine 06/30/22 [place] [address] [facility] [address] [place] [address] Podiatry 10/18/16 [place] [address] [place] [address] Assigned PCP 08/29/20 10/08/23 Rebecca Palumbo MD [address] [place] [address] [address] [place] [address] Assigned Neuroscience Provider 10/01/20 10/14/21 Anders Ramachandran Personal Advocate & Liaison (PAL) 10/14/20 07/07/21 Magdalena Brice Personal Advocate & Liaison (PAL) 11/14/21 12/27/21 Maddie Mae Personal Advocate & Liaison (PAL) Family Medicine 12/28/21 Aydee Mcgill RN RN Clinical Product Navigator Primary Care - CC 06/30/22 06/30/22 Wendy Agustin APRN ADOBE BLOCK MAKER [address] [facility] [address] [place] [address] Assigned PCP 10/09/23 documented as of this encounter
--- OUTSIDE RECORDS SUMMARY | 2023-12-12 00:43 | XMS_ITS | Encounter Summary ---
Author Organization [facility] Address [address] [place] [address] Care Team Providers Care Home Economics Extension Worker Name Role Phone MirandacliftonEdu DPM Unavailable [phone] Enrico Felton DO Primary Care Provider [phone] Enrico Felton DO Unavailable [phone] Magdalena Brice Unavailable Unavailable Maddie Mae Unavailable Unavailable No Ref-Primary, Physician Primary Care Provider Enrico Felton DO Primary Care Provider [phone] Aydee Mcgill RN Unavailable [phone] Wendy Agustin LICENSED ESTHETICIAN CHAIR UPHOLSTERER Unavailable [phone] Encounter Details Date Type Department Care Team (Late st Contact Info) Description 10/20/2021 MyC Medical Advice [address] [place] [address] Melida Pickering, MANAGER CLINICAL Social History Tobacco Use Types Packs/Day Years [...] Info) Description 12/21/2023 2:[address] [facility] [place] [address] [place] [address] [address] [place] [address] Kingsley Westbrook DPM [address] [place] [address] documented as of this encounter Goals Goal Patient Goal Type Associated Problems Recent Progress Patient-Stated? Author Financial Wellbeing General Yes Rosey Alexander, SYSTEMS SOFTWARE ENGINEER documented as of this encounter Visit Diagnoses Not on filedocumented in this encounter Additional Health Concerns Infection Onset Date Last Indicated Resolved Time 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 per 09/01/16 fire equipment inspector note; left foot tissue 10/08/16 10/11/2018 02/27/2019 Assessment Noted Time PHQ-9 Depression Total Score: 3 08/24/19 21 12:19 PM CDT documented as of this encounter Care Teams Home Economics Extension Worker Relationship Specialty [place] [address] [place] [address] PCP - General Family Medicine 08/24/20 01/23/22 No Ref-Primary, Physician PCP - General 02/20/22 06/29/22 [place] [address] [place] [address] PCP - General Family Medicine 06/30/22 [place] [address] [facility] [address] [place] [address] Podiatry 10/18/16 [place] [address] [place] [address] Assigned PCP 08/29/20 10/08/23 Magdalena Brice Personal Advocate & Liaison (PAL) 11/14/21 12/27/21 Maddie Mae Personal Advocate & Liaison (PAL) Family Medicine 12/28/21 Aydee Mcgill RN RN Clinical Product Navigator Primary Care - CC 06/30/22 06/30/22 Wendy Agustin APRN CHAIR UPHOLSTERER [address] [facility] [address] [place] [address] Assigned PCP 10/09/23 documented as of this encounter
--- OUTSIDE RECORDS SUMMARY | 2023-12-12 00:43 | XMS_ITS | Encounter Summary ---
Author Organization [facility] Address [address] [place] [address] Care Team Providers Care Compotype Operator Name Role Phone MirandacliftonEdu DPM Unavailable [phone] Enrico Felton DO Primary Care Provider [phone] Enrico Felton DO Unavailable [phone] Maddie Mae Unavailable Unavailable No Ref-Primary, Physician Primary Care Provider Enrico Felton DO Primary Care Provider [phone] Aydee Mcgill RN Unavailable [phone] Wendy Agustin GREEN CHAINER HERB GROWER Unavailable [phone] Encounter Details Date Type Department Care Team (Late st Contact Info) Description 01/20/2022 MyC Medical Advice [address] [address] [place] Social History Tobacco Use Types [...] Encounters Date Type Department Care Team (Late Contact Info) Description 12/21/2023 2:00 PM CDT Appointment [facility] [place] [address] [place] [phone] Kingsley Westbrook DPM [address] [place] [address] documented as of this encounter Goals Goal Patient Goal Type Associated Problems Recent Progress Patient-Stated? Author Financial Wellbeing General Yes Rosey Alexander, DERMATOLOGY NURSE PRACTITIONER documented as of this encounter Visit Diagnoses Not on filedocumented in this encounter Additional Health Concerns Infection Onset Date Last Indicated Resolved Time 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 per 09/01/16 health policy analyst note; left foot tissue 10/08/16 10/11/2018 02/27/2019 Assessment Noted Time PHQ-9 Depression Total Score: 3 08/24/19 21 12:19 PM CDT documented as of this encounter Care Teams Compotype Operator Relationship Specialty Start [place] [address] [place] [address] PCP - General Family Medicine 08/24/20 01/23/22 No Ref-Primary, Physician PCP - General 02/20/22 06/29/22 [place] [address] [facility] [place] [place] [address] PCP - General Family Medicine 06/30/22 [place] [address] [facility] [address] [place] [address] Podiatry 10/18/16 [place] [address] [place] [address] Assigned PCP 08/29/20 10/08/23 Maddie Mae Personal Advocate & Liaison (PAL) Family Medicine 12/28/21 Aydee Mcgill RN RN Clinical Product Navigator Primary Care - CC 06/30/22 06/30/22 Wendy Agustin APRN [facility] [address] [facility] [address] [place] [address] Assigned PCP 10/09/23 documented as of this encounter
--- OUTSIDE RECORDS SUMMARY | 2023-12-12 00:43 | XMS_ITS | Encounter Summary ---
Author Organization [place] Address [address] [place] [address] Care Team Providers Care Parachute Packer Name Role Phone MirandacliftonEdu DPM Unavailable Enrico Felton DO Unavailable [phone] Maddie Mae Unavailable Unavailable No Ref-Primary, Physician Primary Care Provider Enrico Felton DO Primary Care Provider [phone] Aydee Mcgill RN Unavailable [phone] Wendy Agustin APRN REEL SYSTEM OPERATOR Unavailable [phone] Encounter Details Date Type Department Care Team (Late st Contact Info) Description 03/23/2022 MyC Medical Advice [address] [address] Melida Pickering, JAYCEE Social History Tobacco Use Types Packs/Day [...] How often do you attend sikh or presybeterian serv ices? Patient declined 02/20/2022 Do you [...] Answer Date Recorded PHQ-2 Score 1 02/20/2022 [facility] - Occupational Stress Questionnaire Answer [...] Info) Description 12/21/2023 2:00 PM CDT Appointment [facility] [address] [place] [address] Kingsley Westbrook DPM [address] [place], [place] [address] documented as of this encounter Goals Goal Patient Goal Type Associated Problems Recent Progress Patient-Stated? Author Financial Wellbeing General Yes Rosey Alexander, ACROBATIC RIGGER documented as of this encounter Visit Diagnoses Not on filedocumented in this encounter Additional Health Concerns Infection Onset Date Last Indicated Resolved Time 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 per 09/01/16 beaver trapper note; left foot tissue 10/08/16 10/11/2018 02/27/2019 Assessment Noted Time PHQ-9 Depression Total Score: 5 02/21/20 22 2:07 PM REED MAN documented as of this encounter Care Teams Parachute Packer Relationship Specialty Start Date End Date No Ref-Primary, Physician PCP - General 02/20/22 06/29/22 [place] [address] [place] [address] PCP - General Family Medicine 06/30/22 [place] [address] [facility] [address] [place] [address] Podiatry 10/18/16 [place] [address] [place] [address] Assigned PCP 08/29/20 10/08/23 Maddie Mae Personal Advocate & Liaison (PAL) Family Medicine 12/28/21 Aydee Mcgill RN ROQUE Clinical Product Navigator Primary Care - CC 06/30/22 06/30/22 Wendy Agustin APRN REEL SYSTEM OPERATOR [address] [place] [address] Assigned PCP 10/09/23 documented as of this encounter
--- OUTSIDE RECORDS SUMMARY | 2023-12-12 00:43 | XMS_ITS | Encounter Summary ---
Author Organization [place] Address [address] [place] [address] Care Team Providers Care Lift Truck Operator Name Role Phone YvetteEdu DPM Unavailable [phone] Enrico Felton DO Primary Care Provider [phone] Enrico Felton DO Unavailable Rebecca Palumbo MD Unavailable [phone] Magdalena Brice Unavailable Unavailable Maddie Mae Unavailable Unavailable No Ref-Primary, Physician Primary Care Provider Enrico Felton DO Primary Care Provider [phone] Aydee Mcgill RN Unavailable [phone] Wendy Agustin APRN MANAGER SALES Unavailable [phone] Encounter Details Date Type Department Care Team (Late st Contact Info) Description 09/06/2021 MyC Medical Advice [facility] [address] [place] [address] Lulu Samano MA Social History Tobacco Use [...] Appointment [facility] W[facility] Clinic [place] [address] [place] [phone] Kingsley Westbrook DPM [address] [facility] [place] [address] documented as of this encounter Goals Goal Patient Goal Type Associated Problems Recent Progress Patient-Stated? Author Financial Wellbeing General Yes Rosey Alexander, ICT ACCOUNT MANAGER documented as of this encounter Visit Diagnoses Not on filedocumented in this encounter Additional Health Concerns Infection Onset Date Last Indicated Resolved Time 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 per 09/01/16 eyelet operator note; left foot tissue 10/08/16 10/11/2018 02/27/2019 Assessment Noted Time PHQ-9 Depression Total Score: 3 08/24/19 21 12:19 PM CDT documented as of this encounter Care Teams Lift Truck Operator Relationship Specialty [place] [address] [place] [address] PCP - General Family Medicine 08/24/20 01/23/22 No Ref-Primary, Physician PCP - General 02/20/22 06/29/22 [place] [address] [place] [address] PCP - General Family Medicine 06/30/22 [place] D[place] [address] [facility] [address] [place] [address] Podiatry 10/18/16 [place] [address] [place] [address] Assigned PCP 08/29/20 10/08/23 Rebecca Palumbo MD [address] [place] [address] [address] [place], [place] [address] Assigned Neuroscience Provider 10/01/20 10/14/21 Magdalena Brice Personal Advocate & Liaison (PAL) 11/14/21 12/27/21 Maddie Mae Personal Advocate & Liaison (PAL) Family Medicine 12/28/21 Aydee Mcgill RN RN Clinical Product Navigator Primary Care - CC 06/30/22 06/30/22 Wendy Agustin APRN MANAGER SALES [address] [facility] [address] [place] [address] Assigned PCP 10/09/23 documented as of this encounter
--- OUTSIDE RECORDS SUMMARY | 2023-12-12 00:43 | XMS_ITS | Encounter Summary ---
Author Organization [place] Address [address] [place] [address]. [place] [address] Care Team Providers Care Inspection Machine Tender Name Role Phone YvetteEdu DPM Unavailable [phone] Enrico Felton DO Primary Care Provider [phone] Enrico Felton DO Unavailable [phone] Rebecca Palumbo MD Unavailable [phone] Magdalena Brice Unavailable Unavailable Maddie Mae Unavailable Unavailable No Ref-Primary, Physician Primary Care Provider Enrico Felton DO Primary Care Provider [phone] Aydee Mcgill RN Unavailable [phone] Wendy Agustin APRN CHURN TENDER Unavailable [phone] Encounter Details Date Type Department Care Team (Late st Contact Info) Description 07/29/[address] [facility] [address] [place] [address] [place] [id number] [place] [address] Social History Tobacco Use Types Packs/Day [...] Info) Description 12/21/2023 2:00 PM CDT Appointment [facility] Wound [facility] [address] [place] [address] [address] [place] [address] Kingsley Westbrook DPM [address] [place] [address] documented as of this encounter Goals Goal Patient Goal Type Associated Problems Recent Progress Patient-Stated? 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 per 09/01/16 database marketing specialist note; left foot tissue 10/08/16 10/11/2018 02/27/2019 Assessment Noted Time PHQ-9 Depression Total Score: 3 08/24/19 21 12:19 PM CDT documented as of this encounter Care Teams Inspection Machine Tender Relationship Specialty [place] [address] [place] [address] PCP - General Family Medicine 08/24/20 01/23/22 No Ref-Primary, Physician PCP - General 02/20/22 06/29/22 [place] [address] [place] [address] PCP - General Family Medicine 06/30/22 [place] D[place] [address] [facility] [address] [place] [address] Podiatry 10/18/16 [place] [address] [place] [address] Assigned PCP 08/29/20 10/08/23 Rebecca Palumbo MD [address] [place] [address] [address] [place] [address] Assigned Neuroscience Provider 10/01/20 10/14/21 Magdalena Brice Personal Advocate & Liaison (PAL) 11/14/21 12/27/21 Maddie Mae Personal Advocate & Liaison (PAL) Family Medicine 12/28/21 Aydee Mcgill, RN RN Clinical Product Navigator Primary Care - CC 06/30/22 06/30/22 Wendy Agustin APRN CHURN TENDER [address] [facility] [address] [place] [address] Assigned PCP 10/09/23 documented as of this encounter
--- OUTSIDE RECORDS SUMMARY | 2023-12-12 00:43 | XMS_ITS | Encounter Summary ---
Author Organization [place] Address [address] [place] [address]. [place] [address] Care Team Providers Care Sap Portal Consultant Name Role Phone MirandacliftonEdu DPM Unavailable Enrico Felton DO Unavailable [phone] Maddie Mae Unavailable Unavailable No Ref-Primary, Physician Primary Care Provider Enrico Felton DO Primary Care Provider Aydee Mcgill RN Unavailable [phone] Wendy Agustin APRN ARC WELDER APPRENTICE Unavailable Reason for Visit * Reason Onset Date Comments Refill Request 02/08/2022 lisinopril (ZEST RIL) 20 MG tablet Encounter Details Date Type Department Care Team (Late st Contact Info) Description 02/08/2022 Refill [facility] [address] [place] [address] [place] [id number] [place] [address] Refill Request (lisinopril (ZESTRIL) 20 MG tablet) [...] I will refill lisinopril for 30 days. O VISUAL FACILITIES ENGINEER * Telephone Encounter - Ivanna Turner RN [...] Has visit scheduled 02/20/22. Ivanna Glover RN O VISUAL FACILITIES ENGINEER documented in this encounter Plan of Treatment Upcoming Encounters Date Type Department Care Team (Late st Contact Info) Description 12/21/2023 2:00 PM CDT Appointment [facility] [address] [place] [phone] Kingsley Westbrook DPM [address] [place] [address] documented as of this encounter Goals Goal Patient Goal Type Associated Problems Recent Progress Patient-Stated? 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 [facility] former brace end note; left foot tissue 10/08/16 10/11/2018 02/27/2019 Assessment Noted Time PHQ-9 Depression Total Score: 3 08/24/19 21 12:19 PM CDT documented as of this encounter Care Teams Sap Portal Consultant Relationship Specialty Start Date End Date No Ref-Primary, Physician PCP - General 02/20/22 06/29/22 [place] [address] [place] [address] PCP - General Family Medicine 06/30/22 [place] [address] [facility] [address] [place], [place] [id number] Podiatry 10/18/16 [place] [address] [place] [address] Assigned PCP 08/29/20 10/08/23 Maddie Mae Personal Advocate & Liaison (PAL) Family Medicine 12/28/21 Aydee Mcgill RN ROQUE Clinical Product Navigator Primary Care - CC 06/30/22 06/30/22 Wendy Agustin APRN ARC WELDER APPRENTICE [address] [facility] [address] [place] [address] Assigned PCP 10/09/23 documented as of this encounter
--- OUTSIDE RECORDS SUMMARY | 2023-12-12 00:43 | XMS_ITS | Encounter Summary ---
Author Organization [place] Address [address] [place] [address] Care Team Providers Care Lineman Apprentice Name Role Phone YvetteEdu DPM Unavailable [phone] Enrico Felton DO Primary Care Provider [phone] Enrico Felton DO Unavailable [phone] Rebecca Palumbo MD Unavailable [phone] Magdalena Brice Unavailable Unavailable Maddie Mae Unavailable Unavailable No Ref-Primary, Physician Primary Care Provider Enrico Felton DO Primary Care Provider [phone] Aydee Mcgill RN Unavailable [phone] Wendy Agustin APRN PROCESS COORDINATOR Unavailable [phone] Encounter Details Date Type Department Care Team (Late st Contact Info) Description 07/14/2021 MyC Medical Advice [facility] [address] [place] [address] Melida Pickering, TRANSPORTATION DESIGN ENGINEER Social History Tobacco Use Types Packs/Day Years [...] Info) Description 12/21/2023 2:00 PM CDT Appointment [facility] W[facility] [place] [address] [place] [phone] Kingsley Westbrook DPM [address] [place] [address] documented as of this encounter Goals Goal Patient Goal Type Associated Problems Recent Progress Patient-Stated? Author Financial Wellbeing General Yes Rosey Alexander, DISTRICT COURT ADMINISTRATOR documented as of this encounter Visit Diagnoses Not on filedocumented in this encounter Additional Health Concerns Infection Onset Date Last Indicated Resolved Time 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 per 09/01/16 submarine operator note; left foot tissue 10/08/16 10/11/2018 02/27/2019 Assessment Noted Time PHQ-9 Depression Total Score: 3 08/24/19 21 12:19 PM CDT documented as of this encounter Care Teams Lineman Apprentice Relationship Specialty [place] [address] [place] [address] PCP - General Family Medicine 08/24/20 01/23/22 No Ref-Primary, Physician PCP - General 02/20/22 06/29/22 [place] [address] [facility] [place] [address] PCP - General Family Medicine 06/30/22 [place] [address] [facility] [address] [place] [address] Podiatry 10/18/16 [place] [address] [facility] [place] [address] Assigned PCP 08/29/20 10/08/23 Rebecca Palumbo MD [address] [place] [address] [address] [place], [place] [address] Assigned Neuroscience Provider 10/01/20 10/14/21 Magdalena Brice Personal Advocate & Liaison (PAL) 11/14/21 12/27/21 Maddie Mae Personal Advocate & Liaison (PAL) Family Medicine 12/28/21 Aydee Mcgill RN RN Clinical Product Navigator Primary Care - CC 06/30/22 06/30/22 Wendy Agustin APRN PROCESS COORDINATOR [address] [facility] [address] [place] [address] Assigned PCP 10/09/23 documented as of this encounter
--- OUTSIDE RECORDS SUMMARY | 2023-12-12 00:43 | XMS_ITS | Encounter Summary ---
Author Organization [facility] Address [address] [place] [address] Care Team Providers Care Door To Door Lead Generation Name Role Phone YvetteEdu DPM Unavailable [phone] Enrico Felton DO Primary Care Provider [phone] Enrico Felton DO Unavailable [phone] Rebecca Palumbo MD Unavailable [phone] Magdalena Brice Unavailable Unavailable Maddie Mae Unavailable Unavailable No Ref-Primary, Physician Primary Care Provider Enrico Felton DO Primary Care Provider [phone] Aydee Mcgill RN Unavailable [phone] Wendy Agustin APRN OPTICAL SYSTEMS ENGINEER Unavailable [phone] Encounter Details Date Type Department Care Team (Late st Contact Info) Description 07/08/2021 MyC Medical Advice [facility] [address] [place] [address] Cy Leonardo Social History Tobacco Use [...] Info) Description 12/21/2023 2:00 PM CDT Appointment [facility] Wound Clinic [place] [address] [place] [phone] Kingsley Westbrook DPM [address] [place] [address] documented as of this encounter Goals Goal Patient Goal Type Associated Problems Recent Progress Patient-Stated? Author Financial Wellbeing General Yes Rosey Alexander, NUTRITION COORDINATOR documented as of this encounter Visit Diagnoses Not on filedocumented in this encounter Additional Health Concerns Infection Onset Date Last Indicated Resolved Time 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 per 09/01/16 supply chain planner note; left foot tissue 10/08/16 10/11/2018 02/27/2019 Assessment Noted Time PHQ-9 Depression Total Score: 3 08/24/19 21 12:19 PM CDT documented as of this encounter Care Teams Door To Door Lead Generation Relationship Specialty [place] [address] [place] [address] PCP - General Family Medicine 08/24/20 01/23/22 No Ref-Primary, Physician PCP - General 02/20/22 06/29/22 [place] [address] [facility] [place] [address] PCP - General Family Medicine 06/30/22 [place] [address] [facility] [address] [place] [address] Podiatry 10/18/16 [place] [address] [place] [address] Assigned PCP 08/29/20 10/08/23 Rebecca Palumbo MD [address] [place] [address] [address] [place], [place] [address] Assigned Neuroscience Provider 10/01/20 10/14/21 Magdalena Brice Personal Advocate & Liaison (PAL) 11/14/21 12/27/21 Maddie Mae Personal Advocate & Liaison (PAL) Family Medicine 12/28/21 Aydee Mcgill RN RN Clinical Product Navigator Primary Care - CC 06/30/22 06/30/22 Wendy Agustin APRN OPTICAL SYSTEMS ENGINEER [address] [facility] [address] [place], [place] [address] Assigned PCP 10/09/23 documented as of this encounter
--- OUTSIDE RECORDS SUMMARY | 2023-12-12 00:43 | XMS_ITS | Encounter Summary ---
Author Organization [place] Address [address] [place] [address] Care Team Providers Care Mma Fighter Name Role Phone YvetteEdu DPM Unavailable [phone] Enrico Felton DO Primary Care Provider [phone] Enrico Felton DO Unavailable [phone] Rebecca Palumbo MD Unavailable [phone] Anders Ramachandran Unavailable Unavailable Magdalena Brice Unavailable Unavailable Maddie Mae Unavailable Unavailable No Ref-Primary, Physician Primary Care Provider Enrico Felton DO Primary Care Provider [phone] Aydee Mcgill RN Unavailable [phone] Wendy Agustin APRN MEDICAL GENETICIST Unavailable [phone] Encounter Details Date Type Department Care Team (Late st Contact Info) Description 02/24/[address] [facility] [address] [place] [phone] America Green Social History Tobacco Use [...] Info) Description 12/21/2023 2:00 PM CDT Appointment [facility] Wound [facility] [address] [place] [phone] Kingsley Westbrook DPM [address] [place], [place] [address] documented as of this encounter Goals Goal Patient Goal Type Associated Problems Recent Progress Patient-Stated? Author Financial Wellbeing General Yes Rosey Alexander K, PULMONOLOGY TECHNICIAN documented as of this encounter Visit Diagnoses Not on filedocumented in this encounter Additional Health Concerns Infection Onset Date Last Indicated Resolved Time 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 per 09/01/16 materials planner/production planner note; left foot tissue 10/08/16 10/11/2018 02/27/2019 Assessment Noted Time PHQ-9 Depression Total Score: 3 08/24/19 21 12:19 PM CDT documented as of this encounter Care Teams Mma Fighter Relationship Specialty [place] [address] [place] [address] PCP - General Family Medicine 08/24/20 01/23/22 No Ref-Primary, Physician PCP - General 02/20/22 06/29/22 [place] [address] [place] [address] PCP - General Family Medicine 06/30/22 [place] [address] [facility] [address] [place] [address] Podiatry 10/18/16 [place] [address] [place] [address] Assigned PCP 08/29/20 10/08/23 Rebecca Palumbo MD [address] [place] [address] 297 [place] [address] Assigned Neuroscience Provider 10/01/20 10/14/21 Anders Ramachandran Personal Advocate & Liaison (PAL) 10/14/20 07/07/21 Magdalena Brice Personal Advocate & Liaison (PAL) 11/14/21 12/27/21 Maddie Mae Personal Advocate & Liaison (PAL) Family Medicine 12/28/21 Aydee Mcgill RN RN Clinical Product Navigator Primary Care - CC 06/30/22 06/30/22 Wendy Agustin APRN MEDICAL GENETICIST [facility] [address] [facility] [address] [place] [address] Assigned PCP 10/09/23 documented as of this encounter
--- OUTSIDE RECORDS SUMMARY | 2023-12-12 00:43 | XMS_ITS | Encounter Summary ---
Author Organization [facility] Address [address] [place] [address] Care Team Providers Care Digital Forensic Examiner Name Role Phone MirandacliftonEdu DPM Unavailable [phone] Enrico Felton DO Primary Care Provider [phone] Enrico Felton DO Unavailable [phone] Magdalena Brice Unavailable Unavailable Maddie Mae Unavailable Unavailable No Ref-Primary, Physician Primary Care Provider Enrico Felton DO Primary Care Provider [phone] Aydee Mcgill RN Unavailable [phone] Wendy Agustin AUDIOPROSTHOLOGIST INBOUND INGREDIENT LOGISTICS SPECIALIST Unavailable [phone] Encounter Details Date Type Department Care Team (Late st Contact Info) Description 10/20/2021 MyC Medical Advice [facility] [address] [place] [address] Melida Pickering, DIGITAL ADVERTISING SPECIALIST Social History Tobacco Use Types Packs/Day Years [...] Info) Description 12/21/2023 2:00 PM CDT Appointment [facility] W[facility] [place] [address] [place] [address] [address] [place] [phone] Kingsley Westbrook DPM [address] [place] [address] documented as of this encounter Goals Goal Patient Goal Type Associated Problems Recent Progress Patient-Stated? Author Financial Wellbeing General Yes Rosey Alexander, BUNCH BREAKER documented as of this encounter Visit Diagnoses Not on filedocumented in this encounter Additional Health Concerns Infection Onset Date Last Indicated Resolved Time 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 per 09/01/16 branch rental manager note; left foot tissue 10/08/16 10/11/2018 02/27/2019 Assessment Noted Time PHQ-9 Depression Total Score: 3 08/24/19 21 12:19 PM CDT documented as of this encounter Care Teams Digital Forensic Examiner Relationship Specialty [place] [address] [place] [address] PCP - General Family Medicine 08/24/20 01/23/22 No Ref-Primary, Physician PCP - General 02/20/22 06/29/22 [place] [address] [facility] [place] [address] PCP - General Family Medicine 06/30/22 [place] [address] [facility] [address] [place] [address] Podiatry 10/18/16 [place] [address] [place] [address] Assigned PCP 08/29/20 10/08/23 Magdalena Brice Personal Advocate & Liaison (PAL) 11/14/21 12/27/21 Maddie Mae Personal Advocate & Liaison (PAL) Family Medicine 12/28/21 Aydee Mcgill, RN RN Clinical Product Navigator Primary Care - CC 06/30/22 06/30/22 Wendy Agustin APRN INBOUND INGREDIENT LOGISTICS SPECIALIST [address] [facility] [address] [place] [address] Assigned PCP 10/09/23 documented as of this encounter
--- OUTSIDE RECORDS SUMMARY | 2023-12-12 00:43 | XMS_ITS | Encounter Summary ---
Author Organization [place] Address [address] [place] [address]. [place] [address] Care Team Providers Care Photographic Enlarger Operator Name Role Phone Yvette Edu DPM Unavailable [phone] Enrico Felton DO Primary Care Provider [phone] Enrico Felton DO Unavailable [phone] Rebecca Palumbo MD Unavailable [phone] Anders Ramachandran Unavailable Unavailable Magdalena Brice Unavailable Unavailable Maddie Mae Unavailable Unavailable No Ref-Primary, Physician Primary Care Provider Enrico Felton DO Primary Care Provider [phone] Aydee Mcgill RN Unavailable [phone] Wendy Agustin APRN CRM ADMINISTRATOR Unavailable [phone] Encounter Details Date Type Department Care Team (Late st Contact Info) Description 04/14/2021 MyC Medical Advice [facility] [id number] [place] [phone] [place] [id number] [place] [address] Social History Tobacco Use Types Packs/Day [...] Info) Description 12/21/2023 2:00 PM CDT Appointment [facility] Wound [facility] [address] [place] [address] [address] [place] [address] Kingsley Westbrook DPM [address] [place], [place] [address] documented as of this encounter Goals Goal Patient Goal Type Associated Problems Recent Progress Patient-Stated? Author Financial Wellbeing General Yes Rosey Alexander, LABORATORY COORDINATOR documented as of this encounter Visit Diagnoses Not on filedocumented in this encounter Additional Health Concerns Infection Onset Date Last Indicated Resolved Time 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 per 09/01/16 membership correspondent note; left foot tissue 10/08/16 10/11/2018 02/27/2019 Assessment Noted Time PHQ-9 Depression Total Score: 3 08/24/19 21 12:19 PM CDT documented as of this encounter Care Teams Photographic Enlarger Operator Relationship Specialty [place] [address] [place] [address] PCP - General Family Medicine 08/24/20 01/23/22 No Ref-Primary, Physician PCP - General 02/20/22 06/29/22 [place] [address] [place] [address] PCP - General Family Medicine 06/30/22 [place] [address] [facility] [address] [place] [address] Podiatry 10/18/16 [place] [address] [address] [address] Assigned PCP 08/29/20 10/08/23 Rebecca Palumbo MD [address] [place] [address] 297 [place], [place] 812565 Assigned Neuroscience Provider 10/01/20 10/14/21 Anders Ramachandran Personal Advocate & Liaison (PAL) 10/14/20 07/07/21 Magdalena Brice Personal Advocate & Liaison (PAL) 11/14/21 12/27/21 Maddie Mae Personal Advocate & Liaison (PAL) Family Medicine 12/28/21 Aydee Mcgill RN ROQUE Clinical Product Navigator Primary Care - CC 06/30/22 06/30/22 Wendy Agustin APRN CRM ADMINISTRATOR [address] [facility] [address] [place] [address] Assigned PCP 10/09/23 documented as of this encounter
--- OUTSIDE RECORDS SUMMARY | 2023-12-12 00:43 | XMS_ITS | Encounter Summary ---
Author Organization [place] Address [address] [place] [address]. [place] [address] Care Team Providers Care Elementary Assistant Principal Name Role Phone Yvette Edu DPM Unavailable [phone] Enrico Felton DO Primary Care Provider [phone] Enrico Felton DO Unavailable [phone] Rebecca Palumbo MD Unavailable [phone] Anders Ramachandran Unavailable Unavailable Magdalena Brice Unavailable Unavailable Maddie Mae Unavailable Unavailable No Ref-Primary, Physician Primary Care Provider Enrico Felton DO Primary Care Provider [phone] Aydee Mcgill RN Unavailable [phone] Wendy Agustin APRN FREIGHT SOLICITOR Unavailable [phone] Encounter Details Date Type Department Care Team (Late st Contact Info) Description 03/10/2021 MyC Medical Advice [facility] [address] [place] [phone] [place] [id number] [place] [address] Social History Tobacco Use Types Packs/Day [...] Appointment [facility] Wound [facility] [address] [place] [address] [address] [place] [address] Kingsley Westbrook DPM [address] [place], [place] [address] documented as of this encounter Goals Goal Patient Goal Type Associated Problems Recent Progress Patient-Stated? Author Financial Wellbeing General Yes Rosey Alexander, RN PLACEMENT documented as of this encounter Visit Diagnoses Not on filedocumented in this encounter Additional Health Concerns Infection Onset Date Last Indicated Resolved Time 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 per 09/01/16 agriculture sales account manager note; left foot tissue 10/08/16 10/11/2018 02/27/2019 Assessment Noted Time PHQ-9 Depression Total Score: 3 08/24/19 21 12:19 PM CDT documented as of this encounter Care Teams Elementary Assistant Principal Relationship Specialty [place] [address] [place] [address] PCP - General Family Medicine 08/24/20 01/23/22 No Ref-Primary, Physician PCP - General 02/20/22 06/29/22 [place] [address] [place] [address] PCP - General Family Medicine 06/30/22 [place] [address] [facility] [address] [place] [address] Podiatry 10/18/16 [place] [address] [place] [address] Assigned PCP 08/29/20 10/08/23 Rebecca Palumbo MD [address] [place] [address] 297 [place], [place] [address] Assigned Neuroscience Provider 10/01/20 10/14/21 Anders Ramachandran Personal Advocate & Liaison (PAL) 10/14/20 07/07/21 Magdalena Brice Personal Advocate & Liaison (PAL) 11/14/21 12/27/21 Maddie Mae Personal Advocate & Liaison (PAL) Family Medicine 12/28/21 Aydee Mcgill RN ROQUE Clinical Product Navigator Primary Care - CC 06/30/22 06/30/22 Wendy Agustin APRN FREIGHT SOLICITOR [address] [facility] [address] [place] [address] Assigned PCP 10/09/23 documented as of this encounter
--- OUTSIDE RECORDS SUMMARY | 2023-12-12 00:43 | XMS_ITS | Encounter Summary ---
Author Organization [place] Address [address] [place] [address]. [place] [address] Care Team Providers Care Art Psychotherapist Name Role Phone Yvette Edu DPM Unavailable [phone] Enrico Felton DO Primary Care Provider [phone] Enrico Felton DO Unavailable [phone] Rebecca Palumbo MD Unavailable [phone] Anders Ramachandran Unavailable Unavailable Magdalena Brice Unavailable Unavailable Maddie Mae Unavailable Unavailable No Ref-Primary, Physician Primary Care Provider Enrico Felton DO Primary Care Provider [phone] Aydee Mcgill RN Unavailable [phone] Wendy Agustin APRN EMTS Unavailable [phone] Encounter Details Date Type Department Care Team (Late st Contact Info) Description 06/01/2021 MyC Medical Advice [facility] [address] [place] [phone] [place] [address] [place] [address] Social History Tobacco Use Types Packs/Day [...] Description 12/21/2023 2:[address] [facility] Wound [facility] [address] [place] [address] [address] [place] [address] Kingsley Westbrook DPM 420 [place], [place] [address] documented as of this encounter Goals Goal Patient Goal Type Associated Problems Recent Progress Patient-Stated? Author Financial Wellbeing General Yes Rosey Alexander, CLEANER INDUSTRIAL documented as of this encounter Visit Diagnoses Not on filedocumented in this encounter Additional Health Concerns Infection Onset Date Last Indicated Resolved Time 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 per 09/01/16 communications lead note; left foot tissue 10/08/16 10/11/2018 02/27/2019 Assessment Noted Time PHQ-9 Depression Total Score: 3 08/24/19 21 12:19 PM CDT documented as of this encounter Care Teams Art Psychotherapist Relationship Specialty [place] [address] [place] [address] PCP - General Family Medicine 08/24/20 01/23/22 No Ref-Primary, Physician PCP - General 02/20/22 06/29/22 [place] [address] [place] [address] PCP - General Family Medicine 06/30/22 [place] [address] [facility] [address] [place] [address] Podiatry 10/18/16 [place] [address] [address] [place] [address] Assigned PCP 08/29/20 10/08/23 Rebecca Palumbo MD [address] [place] [address] 297 [place], [place] [address] Assigned Neuroscience Provider 10/01/20 10/14/21 Anders Ramachandran Personal Advocate & Liaison (PAL) 10/14/20 07/07/21 Magdalena Brice Personal Advocate & Liaison (PAL) 11/14/21 12/27/21 Maddie Mae Personal Advocate & Liaison (PAL) Family Medicine 12/28/21 Aydee Mcgill RN ROQUE Clinical Product Navigator Primary Care - CC 06/30/22 06/30/22 Wendy Agustin APRN EMTS [address] [facility] [address] [place] [address] Assigned PCP 10/09/23 documented as of this encounter
--- OUTSIDE RECORDS SUMMARY | 2023-12-12 00:43 | XMS_ITS | Encounter Summary ---
Author Organization [place] Address [address] [place] [address] Care Team Providers Care Marketing Intelligence Analyst Name Role Phone Edu Crawford DPM Unavailable [phone] Enrico Felton DO Unavailable [phone] Maddie Mae Unavailable Unavailable No Ref-Primary, Physician Primary Care Provider Enrico Felton DO Primary Care Provider [phone] Aydee Mcgill RN Unavailable [phone] Wendy Agustin APRN FIBREGLASS LAY UP WORKER Unavailable [phone] Encounter Details Date Type Department Care Team (Late st Contact Info) Description 06/01/2022 MyC Medical Advice [address] [phone] [place] Social History Tobacco Use Types [...] How often do you attend lutheran or episcopal serv ices? Patient declined 02/20/2022 Do you [...] Date Recorded PHQ-2 Score 1 02/20/2022 [facility] - Occupational [...] Info) Description 12/21/2023 2:00 PM CDT Appointment [facility] [place] [address] [place] [address] [address] [place] [address] Kingsley Westbrook DPM [address] [place], [place] [address] documented as of this encounter Goals Goal Patient Goal Type Associated Problems Recent Progress Patient-Stated? Author Financial Wellbeing General Yes Rosey Alexander, QUALITY ASSURANCE PROJECT MANAGER documented as of this encounter Visit Diagnoses Not on filedocumented in this encounter Additional Health Concerns Infection Onset Date Last Indicated Resolved Time 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 per 09/01/16 chimney builder note; left foot tissue 10/08/16 10/11/2018 02/27/2019 Assessment Noted Time PHQ-9 Depression Total Score: 5 02/21/20 22 2:07 PM LINE MAINTAINER SECTION documented as of this encounter Care Teams Marketing Intelligence Analyst Relationship Specialty Start Date End Date No Ref-Primary, Physician PCP - General 02/20/22 06/29/22 [place] [address] [place] [address] PCP - General Family Medicine 06/30/22 [place] D[place] [address] [facility] [address] [place] [address] Podiatry 10/18/16 [place] [address] [place] [address] Assigned PCP 08/29/20 10/08/23 Maddie Mae Personal Advocate & Liaison (PAL) Family Medicine 12/28/21 Aydee Mcgill RN ROQUE Clinical Product Navigator Primary Care - CC 06/30/22 06/30/22 Wendy Agustin APRN FIBREGLASS LAY UP WORKER [address] [facility] [address] [place] [address] Assigned PCP 10/09/23 documented as of this encounter
--- OUTSIDE RECORDS SUMMARY | 2023-12-12 00:43 | XMS_ITS | Encounter Summary ---
Author Organization [place] Address [address] [place] [address]. [place] [address] Care Team Providers Care Consolidation Accountant Name Role Phone Edu Carwford DPM Unavailable [phone] Enrico Felton DO Unavailable [phone] Maddie Mae Unavailable Unavailable No Ref-Primary, Physician Primary Care Provider Enrico Felton DO Primary Care Provider Aydee Mcgill RN Unavailable [phone] Wendy Agustin APRN BUSINESS ACCOUNT EXECUTIVE Unavailable Reason for Visit * Reason Onset Date Comments Refill Request 06/01/2022 omeprazole (PRIL OSEC) [address] capsule Encounter Details Date Type Department Care Team (Late st Contact Info) Description 06/01/2022 Telephone [facility] [address] [place] [phone] [place] [address] [place] [address] Refill Request (omeprazole (PRILOSEC) 40 MG [...] Never 02/20/2022 How often do you attend quaker or yazidism serv ices? Patient declined 02/20/2022 Do you belong to any clubs o r organizations such as quaker groups, unions, fraternal or athletic groups, or [...] Answer Date Recorded PHQ-2 Score 1 02/20/2022 [facility] - Occupational [...] [place] - 06/01/2022 1:55 PM CDT [employer] message sent to patient to schedule [place]/ Vehicle Window Tinter * Telephone Encounter - Ángela Hernández RN [...] Description 12/21/2023 2:00 PM CDT Appointment [facility] [place] [address] [place] [address] [address] [place] [address] Kingsley Westbrook DPM 420 [place] [address] documented as of this encounter Goals Goal Patient Goal Type Associated Problems Recent Progress Patient-Stated? 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 per 09/01/16 historic preservationist note; left foot tissue 10/08/16 10/11/2018 02/27/2019 Assessment Noted Time PHQ-9 Depression Total Score: 5 02/21/20 2:07 PM INSEMINATOR documented as of this encounter Care Teams Consolidation Accountant Relationship Specialty Start Date End Date No Ref-Primary, Physician PCP - General 02/20/22 06/29/22 [place] [address] [place] [address] PCP - General Family Medicine 06/30/22 Edu Crawford DPM [address] [facility] [address] [place] [address] Podiatry 10/18/16 [place] [address] [place] [address] Assigned PCP 08/29/20 10/08/23 Maddie Mae Personal Advocate & Liaison (PAL) Family Medicine 12/28/21 Aydee Mcgill RN ROQUE Clinical Product Navigator Primary Care - CC 06/30/22 06/30/22 Wendy Agustin APRN BUSINESS ACCOUNT EXECUTIVE [address] [facility] [address] [place] [address] Assigned PCP 10/09/23 documented as of this encounter
--- OUTSIDE RECORDS SUMMARY | 2023-12-12 00:43 | XMS_ITS | Encounter Summary ---
Author Organization [place] Address [address] [place] [address] Care Team Providers Care Help Desk Rep Name Role Phone YvetteEdu DPM Unavailable [phone] Enrico Felton DO Primary Care Provider [phone] Enrico Felton DO Unavailable [phone] Rebecca Palumbo MD Unavailable [phone] Magdalena Brice Unavailable Unavailable Maddie Mae Unavailable Unavailable No Ref-Primary, Physician Primary Care Provider Enrico Felton DO Primary Care Provider [phone] Aydee Mcgill RN Unavailable [phone] Wendy Agustin APRN PUBLIC SPEAKING INSTRUCTOR Unavailable [phone] Encounter Details Date Type Department Care Team (Late st Contact Info) Description 08/23/2021 MyC Medical Advice [facility] [address] [place] [address] Melida Pickering, TOP INSTALLER Social History Tobacco Use Types Packs/Day Years [...] Info) Description 12/21/2023 2:00 PM CDT Appointment [facility] [place] [address] [place] [address] Kingsley Westbrook DPM [address] [place] [address] documented as of this encounter Goals Goal Patient Goal Type Associated Problems Recent Progress Patient-Stated? Author Financial Wellbeing General Yes Rosey Alexander, PATTERN DUPLICATOR documented as of this encounter Visit Diagnoses Not on filedocumented in this encounter Additional Health Concerns Infection Onset Date Last Indicated Resolved Time 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 per 09/01/16 hspt tutor note; left foot tissue 10/08/16 10/11/2018 02/27/2019 Assessment Noted Time PHQ-9 Depression Total Score: 3 08/24/19 21 12:19 PM CDT documented as of this encounter Care Teams Help Desk Rep Relationship Specialty [place] [address] [place] [address] PCP - General Family Medicine 08/24/20 01/23/22 No Ref-Primary, Physician PCP - General 02/20/22 06/29/22 [place] [address] [facility] [place] [address] PCP - General Family Medicine 06/30/22 [place] [address] [facility] [address] [place] [address] Podiatry 10/18/16 [place] [address] [facility] [place] [address] Assigned PCP 08/29/20 10/08/23 Rebecca Palumbo MD [address] [place] [address] 297 [place], [place] [address] Assigned Neuroscience Provider 10/01/20 10/14/21 Magdalena Brice Personal Advocate & Liaison (PAL) 11/14/21 12/27/21 Maddie Mae Personal Advocate & Liaison (PAL) Family Medicine 12/28/21 Aydee Mcgill RN RN Clinical Product Navigator Primary Care - CC 06/30/22 06/30/22 Wendy Agustin APRN PUBLIC SPEAKING INSTRUCTOR [address] [facility] [address] [place] [address] Assigned PCP 10/09/23 documented as of this encounter
--- OUTSIDE RECORDS SUMMARY | 2023-12-12 00:43 | XMS_ITS | Encounter Summary ---
Author Organization [place] Address [address] [place] [address]. [place] [address] Care Team Providers Care Chemical Equipment Sales Engineer Name Role Phone Yvette Edu DPM Unavailable [phone] Enrico Felton DO Primary Care Provider [phone] Enrico Felton DO Unavailable [phone] Rebecca Palumbo MD Unavailable [phone] Anders Ramachandran Unavailable Unavailable Magdalena Brice Unavailable Unavailable Maddie Mae Unavailable Unavailable No Ref-Primary, Physician Primary Care Provider Enrico Felton DO Primary Care Provider [phone] Aydee Mcgill RN Unavailable [phone] Wendy Agustin APRN BARRATTE OPERATOR Unavailable [phone] Encounter Details Date Type Department Care Team (Late st Contact Info) Description 02/24/2021 MyC Medical Advice [facility] [address] [place] [phone] [place]ton [place] [id number] [place] [address] Social History Tobacco Use Types Packs/Day [...] Info) Description 12/21/2023 2:00 PM CDT Appointment [facility] [address] [place] [address] [address] [place] [address] Kingsley Westbrook DPM [address] [place], [place] [address] documented as of this encounter Goals Goal Patient Goal Type Associated Problems Recent Progress Patient-Stated? Author Financial Wellbeing General Yes Rosey Alexander, HELPDESK ANALYST documented as of this encounter Visit Diagnoses Not on filedocumented in this encounter Additional Health Concerns Infection Onset Date Last Indicated Resolved Time 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 per 09/01/16 business lawyer note; left foot tissue 10/08/16 10/11/2018 02/27/2019 Assessment Noted Time PHQ-9 Depression Total Score: 3 08/24/19 21 12:19 PM CDT documented as of this encounter Care Teams Chemical Equipment Sales Engineer Relationship Specialty [place] [address] [place] [address] PCP - General Family Medicine 08/24/20 01/23/22 No Ref-Primary, Physician PCP - General 02/20/22 06/29/22 [place] [address] [place] [address] PCP - General Family Medicine 06/30/22 [place] [address] [facility] [address] [place] [address] Podiatry 10/18/16 [place] [address] [address] [address] Assigned PCP 08/29/20 10/08/23 Rebecca Palumbo MD [address] [place] [address] 297 [place], [place] [address] Assigned Neuroscience Provider 10/01/20 10/14/21 Anders Ramachandran Personal Advocate & Liaison (PAL) 10/14/20 07/07/21 Magdalena Brice Personal Advocate & Liaison (PAL) 11/14/21 12/27/21 Maddie Mae Personal Advocate & Liaison (PAL) Family Medicine 12/28/21 Aydee Mcgill RN ROQUE Clinical Product Navigator Primary Care - CC 06/30/22 06/30/22 Wendy Agustin APRN BARRATTE OPERATOR [address] [facility] [address] [place] [address] Assigned PCP 10/09/23 documented as of this encounter
--- OUTSIDE RECORDS SUMMARY | 2023-12-12 00:44 | XMS_ITS | Encounter Summary ---
Author Organization [facility] Address [address] [place] [address] Care Team Providers Care Airplane Gas Tank Liner Assembler Name Role Phone Madhuri Whitman APRN CLINICAL TRAINER Primary Care Prov ider Edu Crawford DPM Unavailable [phone] Altagracia Alexander DPM, Podiatry /Foot and Ankle Surgery Unavailable Enrico Felton DO Unavailable [phone] Enrico Felton DO Primary Care Provider [phone] Cy Leonardo Unavailable Unavailable Enrico Felton DO Unavailable [phone] Rebecca Palumbo MD Unavailable [phone] Anders Ramachandran Unavailable Unavailable Magdalena Brice Unavailable Unavailable Maddie Mae Unavailable Unavailable No Ref-Primary, Physician Primary Care Provider Enrico Felton DO Primary Care Provider [phone] Aydee Mcgill RN Unavailable [phone] Wendy Agustin APRN CLINICAL TRAINER Unavailable [phone] Reason for Visit * Reason Comments Medication Refill Encounter Details Date Type Department Care Team (Late st Contact Info) Description 02/13/[address], [address] [place] [address] Craig Montenegro PA-C [address] [place] [place] [address] Medication Refill Social History Tobacco Use Types [...] COVID-19? No / Unsure 01/21/2020 3:59 PM SHEEPSKIN PICKLER documented as of this encounter Miscellaneous Notes * Telephone Encounter - Anabell Patten CMA - 03/01/2020 1:44 PM SHEEPSKIN PICKLER LMOM will send letter-Needs lab only appt Anabell Patten CMA PSKIN PICKLER * Telephone Encounter - Jenny Roman MA - 02/20/2020 11:18 AM CST LVM for pt to schedule a lab only appt. Jenny Roman MA on 02/20/2020 at 11:18 AM PSKIN PICKLER * Telephone Encounter - America Green - 02/16/2020 10:30 AM CST Left message for patient to call and schedule lab only America Green/ [employer] PSKIN PICKLER * Telephone Encounter - Cooper Rice MD - 02/16/2020 10:27 AM CST Pt needs lab only appt Already futured Cooper Rice MD PSKIN PICKLER * Telephone Encounter - Azul Packer RN - 02/13/2020 7:32 AM SHEEPSKIN PICKLER Routing refill request to provider for review/approval because: Labs not current: Lipids RN will issue 90 day denise. Visit is up to date. Please advise on labs. Azul Packer RN [facility] -- Triage Nurse PSKIN PICKLER documented in this encounter Plan of Treatment Upcoming Encounters Date Type Department Care Team (Late st Contact Info) Description 12/21/2023 2:00 PM CDT Appointment [facility] [address] [place] [address] Kingsley Westbrook DPM [address] [place] [address] documented as of this encounter Goals Goal Patient Goal Type Associated Problems Recent Progress Patient-Stated? Author Financial Wellbeing General Yes Rosey Alexander, RADIOISOTOPE TECHNICIAN documented as of this encounter Visit Diagnoses Diagnosis Hyperlipidemia with target LDL less than 100 Other and unspecified hyperlipidemia documented in this encounter Additional Health Concerns Infection Onset Date Last Indicated Resolved Time 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 per 09/01/16 pianos and organs salesperson note; left foot tissue 10/08/16 10/11/2018 02/27/2019 Assessment Noted Time PHQ-9 Depression Total Score: 10 020 4:12 PM SHEEPSKIN PICKLER documented as of this encounter Care Teams Airplane Gas Tank Liner Assembler Relationship Specialty Start Date End Date Madhuri Whitman APRN CLINICAL TRAINER PCP - General Nurse Practitioner - Family 09/04/16 08/23/20 [place] [address] [place] [address] PCP - General Family Medicine 08/24/20 01/23/22 No Ref-Primary, Physician PCP - General 02/20/22 06/29/22 [place] [address] [place] [address] PCP - General Family Medicine 06/30/22 [place] [address] [facility] [address] [place], [place] [id number] Podiatry 10/18/16 Altagracia Alexander DPM, Podiatry/Foot and Ankle Surgery [address] [place], [place] [id number] Assigned Musculoskeletal Provider 01/09/20 10/30/20 [place] [address] [place] [address] Assigned PCP 02/01/20 08/28/20 Cy Leonardo Personal Advocate & Liaison (PAL) 08/26/20 10/13/20 [place] [address] [place] [address] Assigned PCP 08/29/20 10/08/23 Rebecca Palumbo MD [address] [place] [address] [address] [place], [place] [address] Assigned Neuroscience Provider 10/01/20 10/14/21 Anders Ramachandran Personal Advocate & Liaison (PAL) 10/14/20 07/07/21 Magdalena Brice Personal Advocate & Liaison (PAL) 11/14/21 12/27/21 Maddie Mae Personal Advocate & Liaison (PAL) Family Medicine 12/28/21 Aydee Mcgill RN RN Clinical Product Navigator Primary Care - CC 06/30/22 06/30/22 Wendy Agustin APRN CLINICAL TRAINER [address] [facility] [address] [place] [address] Assigned PCP 10/09/23 documented as of this encounter
--- OUTSIDE RECORDS SUMMARY | 2023-12-12 00:44 | XMS_ITS | Encounter Summary ---
Author Organization [facility] Address [address] [place] [address] Care Team Providers Care Gis Scientist Name Role Phone Madhuri Whitman APRN ASSISTANT DRAFTER Primary Care Prov ider Edu Crawford DPM Unavailable [phone] Madhuri Whitman APRN ASSISTANT DRAFTER Unavailable + Rosey Alexander CONSUMER SCIENCE TEACHER Unavailable [phone] Craig Montenegro PA-C Unavailable [phone] Altagracia Alexander DPM, Podiatry /Foot and Ankle Surgery Unavailable Enrico Felton DO Unavailable [phone] Enrico Felton DO Primary Care Provider [phone] Cy Leonardo Unavailable Unavailable Enrico Felton DO Unavailable [phone] Rebecca Palumbo MD Unavailable [phone] Anders Ramachandran Unavailable Unavailable Magdalena Brice Unavailable Unavailable Maddie Mae Unavailable Unavailable No Ref-Primary, Physician Primary Care Provider Enrico Felton DO Primary Care Provider [phone] Aydee Mcgill RN Unavailable [phone] Wendy Agustin APRN ASSISTANT DRAFTER Unavailable [phone] Reason for Visit * Reason Onset Date Comments Medication Refill 12/09/2018 PARoxetine (PA XIL) 20 MG tablet Encounter Details Date Type Department Care Team (Late st Contact Info) Description 12/09/[address], [address] [place] [address] J Carlos Madhuri Cindy, ELECTRICIAN DECK ASSISTANT DRAFTER [address] [place] [address] Medication Refill (PARoxetine (PAXIL) 20 [...] up on 12/04/2018. Patient now lives in [place] with transportation issues. States active on [employer] but has never signed in. ENDER Weir will be looking into other options for [...] Info) Description 12/21/2023 2:00 PM CDT Appointment [facility] [address] [place] [address] Kingsley Westbrook DPM [address] [place] [id number] documented as of this encounter Goals Goal Patient Goal Type Associated Problems Recent Progress Patient-Stated? Author Financial Wellbeing General Yes Rosey Alexander, CONSUMER SCIENCE TEACHER documented as of this encounter Visit Diagnoses Diagnosis Episode of recurrent major depressive disorder, unspecified depression episode severity (H24) documented in this encounter Additional Health Concerns Infection Onset Date Last Indicated Resolved Time 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 per 09/01/16 morning babysitter note; left foot tissue 10/08/16 10/11/2018 02/27/2019 Assessment Noted Time PHQ-9 Depression Total Score: 3 06/22/19 19 2:29 PM CDT documented as of this encounter Care Teams Gis Scientist Relationship Specialty Start Date End Date Madhuri Whitman APRN ASSISTANT DRAFTER PCP - General Nurse Practitioner - Family 09/04/16 08/23/20 [place] [address] [place] [address] PCP - General Family Medicine 08/24/20 01/23/22 No Ref-Primary, Physician PCP - General 02/20/22 06/29/22 [place] [address] [place] [address] PCP - General Family Medicine 06/30/22 [place] Crawford DPM [address] [facility] [address] [place], [place] [id number] Podiatry 10/18/16 Madhuri Whitman APRN ASSISTANT DRAFTER [address] [place] [address] Assigned PCP 09/03/16 09/27/19 Rosey Alexander, CONSUMER SCIENCE TEACHER Lead Convolute Tube Winder Primary Care - CC 11/08/18 05/07/19 Craig Montenegro PA-C [address] [address] Assigned PCP 09/28/19 01/31/20 Altagracia Alexander DPM, Podiatry/Foot and Ankle Surgery [address] [facility] [address] [place], [place] [address] Assigned Musculoskeletal Provider 01/09/20 10/30/20 [place] [address] [place] [address] Assigned PCP 02/01/20 08/28/20 Cy Leonardo Personal Advocate & Liaison (PAL) 08/26/20 10/13/20 [place] [address] [place] [address] Assigned PCP 08/29/20 10/08/23 Rebecca Palumbo MD [address] [place] [address] [address] [place], [place] [address] Assigned Neuroscience Provider 10/01/20 10/14/21 Anders Ramachandran Personal Advocate & Liaison (PAL) 10/14/20 07/07/21 Magdalena Brice Personal Advocate & Liaison (PAL) 11/14/21 12/27/21 Maddie Mae Personal Advocate & Liaison (PAL) Family Medicine 12/28/21 Aydee Mcgill, RN RN Clinical Product Navigator Primary Care - CC 06/30/22 06/30/22 Wendy Agustin APRN ASSISTANT DRAFTER [address] [facility] [address] [place] [address] Assigned PCP 10/09/23 documented as of this encounter
--- OUTSIDE RECORDS SUMMARY | 2023-12-12 00:44 | XMS_ITS | Encounter Summary ---
Author Organization [facility] Address [address] [place] [address] Care Team Providers Care Financial Accountant Name Role Phone Madhuri Whitman APRN OPERATING ROOM SCHEDULER Primary Care Prov ider Edu Crawford DPM Unavailable [phone] Altagracia Alexander DPM, Podiatry /Foot and Ankle Surgery Unavailable Enrico Felton DO Unavailable [phone] Enrico Felton DO Primary Care Provider [phone] Cy Leonardo Unavailable Unavailable Enrico Felton DO Unavailable [phone] Rebecca Palumbo MD Unavailable [phone] Anders Ramachandran Unavailable Unavailable Magdalena Brice Unavailable Unavailable Maddie Mae Unavailable Unavailable No Ref-Primary, Physician Primary Care Provider Enrico Felton DO Primary Care Provider [phone] Aydee Mcgill RN Unavailable [phone] Wendy Agustin APRN OPERATING ROOM SCHEDULER Unavailable [phone] Encounter Details Date Type Department Care Team (Late st Contact Info) Description 06/08/2020 [facility] [address] [place] [address] [place] [address] [place] [address] Social History Tobacco Use Types Packs/Day Years [...] Appointment [facility] [address] [place] [address] Kingsley Westbrook DPM [address] [place], [place] [address] documented as of this encounter Goals Goal Patient Goal Type Associated Problems Recent Progress Patient-Stated? Author Financial Wellbeing General Yes Rosey Alexander, ANIMAL MAINTENANCE SUPERVISOR documented as of this encounter Visit Diagnoses Not on filedocumented in this encounter Additional Health Concerns Infection Onset Date Last Indicated Resolved Time 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 per 09/01/16 car cooper note; left foot tissue 10/08/16 10/11/2018 02/27/2019 Assessment Noted Time PHQ-9 Depression Total Score: 10 020 4:12 PM PERFORATOR OPERATOR documented as of this encounter Care Teams Financial Accountant Relationship Specialty Start Date End Date Madhuri Whitman APRN OPERATING ROOM SCHEDULER PCP - General Nurse Practitioner - Family 09/04/16 08/23/20 [place] [address] [place] [address] PCP - General Family Medicine 08/24/20 01/23/22 No Ref-Primary, Physician PCP - General 02/20/22 06/29/22 [place] [address] [place] [address] PCP - General Family Medicine 06/30/22 Edu [place] D[place] [address] [facility] [address] [place], [place] [address] Podiatry 10/18/16 Altagracia Alexander DPM, Podiatry/Foot and Ankle Surgery [address] [place], [place] [address] Assigned Musculoskeletal Provider 01/09/20 10/30/20 [place] [address] [place] [address] Assigned PCP 02/01/20 08/28/20 Cy Leonardo Personal Advocate & Liaison (PAL) 08/26/20 10/13/20 [place] [address] [place] [address] Assigned PCP 08/29/20 10/08/23 Rebecca Palumbo MD [address] [place] [address]4445 Assigned Neuroscience Provider 10/01/20 10/14/21 Anders Ramachandran Personal Advocate & Liaison (PAL) 10/14/20 07/07/21 Magdalena Brice Personal Advocate & Liaison (PAL) 11/14/21 12/27/21 Maddie Mae Personal Advocate & Liaison (PAL) Family Medicine 12/28/21 Aydee Mcgill RN RN Clinical Product Navigator Primary Care - CC 06/30/22 06/30/22 Wendy Agustin APRN OPERATING ROOM SCHEDULER [address] [facility] [address] [place] [address] Assigned PCP 10/09/23 documented as of this encounter
--- OUTSIDE RECORDS SUMMARY | 2023-12-12 00:44 | XMS_ITS | Encounter Summary ---
Author Organization [facility] Address [address] [place] [address] Care Team Providers Care Actuary Name Role Phone Stefan Crawfordemy DPM Unavailable [phone] Enrico Felton DO Primary Care Provider [phone] Enrico Felton DO Unavailable [phone] Rebecca Palumbo MD Unavailable [phone] Anders Ramachandran Unavailable Unavailable Magdalena Brice Unavailable Unavailable Maddie Mae Unavailable Unavailable No Ref-Primary, Physician Primary Care Provider Enrico Felton DO Primary Care Provider [phone] Aydee Mcgill RN Unavailable [phone] Wendy Agustin APRN SMOKE JUMPER Unavailable [phone] Encounter Details Date Type Department Care [...] Info) Description 12/21/2023 2:00 PM CDT Appointment [facility] [place] [address] [facility] [address] [place] [address] Kingsley Westbrook DPM [address] [place], [place] [address] documented as of this encounter Goals Goal Patient Goal Type Associated Problems Recent Progress Patient-Stated? Author Financial Wellbeing General Yes Rosey Alexander, TAVERN KEEPER documented as of this encounter Visit Diagnoses Not on filedocumented in this encounter Additional Health Concerns Infection Onset Date Last Indicated Resolved Time 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 per 09/01/16 textile cutting machine operator note; left foot tissue 10/08/16 10/11/2018 02/27/2019 Assessment Noted Time PHQ-9 Depression Total Score: 3 08/24/19 21 12:19 PM CDT documented as of this encounter Care Teams Actuary Relationship Specialty [place] [address] [place] [address] PCP - General Family Medicine 08/24/20 01/23/22 No Ref-Primary, Physician PCP - General 02/20/22 06/29/22 [place] [address] [place] [address] PCP - General Family Medicine 06/30/22 [place] [address] [facility] [address] [place] [address] Podiatry 10/18/16 [place] [address] [place] [address] Assigned PCP 08/29/20 10/08/23 Rebecca Palumbo MD [address] [place] [address] 297 [place] [address] Assigned Neuroscience Provider 10/01/20 10/14/21 Anders Ramachandran Personal Advocate & Liaison (PAL) 10/14/20 07/07/21 Magdalena Brice Personal Advocate & Liaison (PAL) 11/14/21 12/27/21 Maddie Mae Personal Advocate & Liaison (PAL) Family Medicine 12/28/21 Aydee Mcgill RN RN Clinical Product Navigator Primary Care - CC 06/30/22 06/30/22 Wendy Agustin APRN SMOKE JUMPER [address] [facility] [address] [place] [address] Assigned PCP 10/09/23 documented as of this encounter
--- OUTSIDE RECORDS SUMMARY | 2023-12-12 00:44 | XMS_ITS | Encounter Summary ---
Author Organization [facility] Address [address] [place] [address] Care Team Providers Care Runner Man Name Role Phone Edu Crawford DPM Unavailable [phone] Altagracia Alexander DPM, Podiatry /Foot and Ankle Surgery Unavailable Enrico Felton DO Unavailable Enrico Felton DO Primary Care Provider [phone] Cy Leonardo Unavailable Unavailable Enrico Felton DO Unavailable Rebecca Palumbo MD Unavailable [phone] Anders Ramachandran Unavailable Unavailable Magdalena Brice Unavailable Unavailable Maddie Mae Unavailable Unavailable No Ref-Primary, Physician Primary Care Provider Enrico Felton DO Primary Care Provider [phone] Aydee Mcgill RN Unavailable [phone] Wendy Agustin APRN BREAKDOWN MILL OPERATOR Unavailable [phone] Encounter Details Date Type Department Care [...] Info) Description 12/21/2023 2:00 PM CDT Appointment [facility] [address] [place] [address] Kingsley Westbrook DPM [address] [place] [address] documented as of this encounter Goals Goal Patient Goal Type Associated Problems Recent Progress Patient-Stated? 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 per 09/01/16 chaser helper note; left foot tissue 10/08/16 10/11/2018 02/27/2019 Assessment Noted Time PHQ-9 Depression Total Score: 3 08/24/19 21 12:19 PM CDT documented as of this encounter Care Teams Runner Man Relationship Specialty [place] [address] [place] [address] PCP - General Family Medicine 08/24/20 01/23/22 No Ref-Primary, Physician PCP - General 02/20/22 06/29/22 [place] [address] [place] [address] PCP - General Family Medicine 06/30/22 Edu Crawford DPM [address] [place] [address] [address] [place] [address] Podiatry 10/18/16 Altagracia Alexander DPM, Podiatry/Foot and Ankle Surgery [address] [facility] [address] [place], [place] [address] Assigned Musculoskeletal Provider 01/09/20 10/30/20 [place] [address] [place] [address] Assigned PCP 02/01/20 08/28/20 Cy Leonardo Personal Advocate & Liaison (PAL) 08/26/20 10/13/20 [place] [address] [place] [address] Assigned PCP 08/29/20 10/08/23 Rebecca Palumbo MD [address] [place] [address] 297 [place], [place] [address] Assigned Neuroscience Provider 10/01/20 10/14/21 Anders Ramachandran Personal Advocate & Liaison (PAL) 10/14/20 07/07/21 Magdalena Brice Personal Advocate & Liaison (PAL) 11/14/21 12/27/21 Maddie Mae Personal Advocate & Liaison (PAL) Family Medicine 12/28/21 Aydee Mcgill RN ROQUE Clinical Product Navigator Primary Care - CC 06/30/22 06/30/22 Wendy Agustin APRN BREAKDOWN MILL OPERATOR [address] [facility] [address] [place], [place] [address] Assigned PCP 10/09/23 documented as of this encounter
--- OUTSIDE RECORDS SUMMARY | 2023-12-12 00:44 | XMS_ITS | Encounter Summary ---
Author Organization [facility] Address [address] [place] [address] Care Team Providers Care Vocational Auto Body Instructor Name Role Phone Madhuri Whitman APRN PLASMA CENTER TECHNICIAN Primary Care Prov ider Edu Crawford DPM Unavailable Altagracia Alexander DPM, Podiatry /Foot and Ankle Surgery Unavailable Enrico Felton DO Unavailable [phone] Enrico Felton DO Primary Care Provider [phone] Cy Leonardo Unavailable Unavailable Enrico Felton DO Unavailable [phone] Rebecca Palumbo MD Unavailable [phone] Anders Ramachandran Unavailable Unavailable Magdalena Brice Unavailable Unavailable Maddie Mae Unavailable Unavailable No Ref-Primary, Physician Primary Care Provider Enrico Felton DO Primary Care Provider [phone] Aydee Mcgill RN Unavailable [phone] Wendy Agustin APRN PLASMA CENTER TECHNICIAN Unavailable [phone] Encounter Details Date Type Department Care Team (Late st Contact Info) Description 05/25/2020 [facility] Medical Advice [address] [address] Dianelys Smalls Social History Tobacco [...] PM CDT Appointment [facility] [place] [address] [place] [address] Kingsley Westbrook DPM [address] [place] [address] documented as of this encounter Goals Goal Patient Goal Type Associated Problems Recent Progress Patient-Stated? Author Financial Wellbeing General Yes Rosey Alexander, EXTRACT PULLER documented as of this encounter Visit Diagnoses Not on filedocumented in this encounter Additional Health Concerns Infection Onset Date Last Indicated Resolved Time 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 per 09/01/16 lead caregiver note; left foot tissue 10/08/16 10/11/2018 02/27/2019 Assessment Noted Time PHQ-9 Depression Total Score: 10 020 4:12 PM SECONDARY SCHOOL PRINCIPAL documented as of this encounter Care Teams Vocational Auto Body Instructor Relationship Specialty Start Date End Date Madhuri Whitman APRN PLASMA CENTER TECHNICIAN PCP - General Nurse Practitioner - Family 09/04/16 08/23/20 [place] [address] [place] [address] PCP - General Family Medicine 08/24/20 01/23/22 No Ref-Primary, Physician PCP - General 02/20/22 06/29/22 [place] [address] [place] [address] PCP - General Family Medicine 06/30/22 [place] [address] [place] [address] Podiatry 10/18/16 Altagracia Alexander DPM, Podiatry/Foot and Ankle Surgery [address] [place], [place] [address] Assigned Musculoskeletal Provider 01/09/20 10/30/20 [place] [address] [place] [address] Assigned PCP 02/01/20 08/28/20 Cy Leonardo Personal Advocate & Liaison (PAL) 08/26/20 10/13/20 [place] [address] [place] [address] Assigned PCP 08/29/20 10/08/23 Rebecca Palumbo MD [address] [place] [id number] Assigned Neuroscience Provider 10/01/20 10/14/21 Anders Ramachandran Personal Advocate & Liaison (PAL) 10/14/20 07/07/21 Magdalena Brice Personal Advocate & Liaison (PAL) 11/14/21 12/27/21 Maddie Mae Personal Advocate & Liaison (PAL) Family Medicine 12/28/21 Aydee Mcgill RN RN Clinical Product Navigator Primary Care - CC 06/30/22 06/30/22 Wendy Agustin APRN PLASMA CENTER TECHNICIAN [address] [facility] [address] [place], [place] [address] Assigned PCP 10/09/23 documented as of this encounter
--- OUTSIDE RECORDS SUMMARY | 2023-12-12 00:44 | XMS_ITS | Encounter Summary ---
Author Organization [facility] Address [address] [place] [address] Care Team Providers Care Fruit Coordinator Name Role Phone Madhuri Whitman APRN SIGNAL ENGINEER Primary Care Prov ider Edu Crawford DPM Unavailable Altagracia Alexander DPM, Podiatry /Foot and Ankle Surgery Unavailable Enrico Felton DO Unavailable [phone] Enrico Felton DO Primary Care Provider [phone] Cy Leonardo Unavailable Unavailable Enrico Felton DO Unavailable [phone] Rebecca Palumbo MD Unavailable [phone] Anders Ramachandran Unavailable Unavailable Magdalena Brice Unavailable Unavailable Maddie Mae Unavailable Unavailable No Ref-Primary, Physician Primary Care Provider Enrico Felton DO Primary Care Provider [phone] Aydee Mcgill RN Unavailable [phone] Wendy Agustin APRN SIGNAL ENGINEER Unavailable [phone] Encounter Details Date Type Department Care Team (Late st Contact Info) Description 08/18/2020 MyC Medical Advice [facility] [address] [place] [phone] Denia Mccrary, KNURLING MACHINE TENDER Social History Tobacco Use Types Packs/Day Years [...] Info) Description 12/21/2023 2:00 PM CDT Appointment [facility] [address] [place] [phone] Kingsley Westbrook DPM 420 [place], [place] [address] documented as of this encounter Goals Goal Patient Goal Type Associated Problems Recent Progress Patient-Stated? Author Financial Wellbeing General Yes Rosey Alexander, PHYSICIAN PRACTICE ADMINISTRATOR documented as of this encounter Visit Diagnoses Not on filedocumented in this encounter Additional Health Concerns Infection Onset Date Last Indicated Resolved Time 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 per 09/01/16 equipment tester note; left foot tissue 10/08/16 10/11/2018 02/27/2019 Assessment Noted Time PHQ-9 Depression Total Score: 10 020 4:12 PM VICE PRESIDENT OF CONTRACTS documented as of this encounter Care Teams Fruit Coordinator Relationship Specialty Start Date End Date Madhuri Whitman APRN SIGNAL ENGINEER PCP - General Nurse Practitioner - Family 09/04/16 08/23/20 [place] [address] [place] [address] PCP - General Family Medicine 08/24/20 01/23/22 No Ref-Primary, Physician PCP - General 02/20/22 06/29/22 [place] [address] [place] [address] PCP - General Family Medicine 06/30/22 [place] [address] [facility] [address] [place], [place] [address] Podiatry 10/18/16 Altagracia Alexander DPM, Podiatry/Foot and Ankle Surgery [address] [place], [place] [address] Assigned Musculoskeletal Provider 01/09/20 10/30/20 [place] [address] [place] [address] Assigned PCP 02/01/20 08/28/20 Cy Leonardo Personal Advocate & Liaison (PAL) 08/26/20 10/13/20 [place] [address] [place] [address] Assigned PCP 08/29/20 10/08/23 Rebecca Palumbo MD [address] [place] [address] 297 [place], [place] 387985 Assigned Neuroscience Provider 10/01/20 10/14/21 Anders Ramachandran Personal Advocate & Liaison (PAL) 10/14/20 07/07/21 Magdalena Brice Personal Advocate & Liaison (PAL) 11/14/21 12/27/21 Maddie Mae Personal Advocate & Liaison (PAL) Family Medicine 12/28/21 Aydee Mcgill RN RN Clinical Product Navigator Primary Care - CC 06/30/22 06/30/22 Wendy Agustin APRN [facility] [address] [facility] [address] [place] [address] Assigned PCP 10/09/23 documented as of this encounter
--- OUTSIDE RECORDS SUMMARY | 2023-12-12 00:44 | XMS_ITS | Encounter Summary ---
Author Organization [facility] Address [address] [place] [address] Care Team Providers Care Venture Capitalist Name Role Phone J Carlos Madhuri White APRN RADAR ENGINEER Primary Care Prov ider Edu Crawford DPM Unavailable [phone] Craig Montenegro PA-C Unavailable [phone] Altagracia Alexander DPM, Podiatry /Foot and Ankle Surgery Unavailable Enrico Felton DO Unavailable [phone] Enrico Felton DO Primary Care Provider [phone] Cy Leonardo Unavailable Unavailable Enrico Felton DO Unavailable [phone] Rebecca Palumbo MD Unavailable [phone] Anders Ramachandran Unavailable Unavailable Magdalena Brice Unavailable Unavailable Maddie Mae Unavailable Unavailable No Ref-Primary, Physician Primary Care Provider Enrico Felton DO Primary Care Provider [phone] Aydee Mcgill RN Unavailable [phone] Wendy Agustin APRN RADAR ENGINEER Unavailable [phone] Encounter Details Date Type Department Care [...] COVID-19? No / Unsure 01/21/2020 3:59 PM QUARTZ MINER documented as of this encounter Plan of Treatment Upcoming Encounters Date Type Department Care Team (Late st Contact Info) Description 12/21/2023 2:00 PM CDT Appointment [facility] [place] [address] [place] [address] 586 [place] [address] Kingsley Westbrook DPM 420 [place], [place] [address] documented as of this encounter Goals Goal Patient Goal Type Associated Problems Recent Progress Patient-Stated? Author Financial Wellbeing General Yes Rosey Alexander, SKIN THERAPIST documented as of this encounter Visit Diagnoses Not on filedocumented in this encounter Additional Health Concerns Infection Onset Date Last Indicated Resolved Time 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 per 09/01/16 vinyl welder and fabricator note; left foot tissue 10/08/16 10/11/2018 02/27/2019 Assessment Noted Time PHQ-9 Depression Total Score: 10 020 4:12 PM QUARTZ MINER documented as of this encounter Care Teams Venture Capitalist Relationship Specialty Start Date End Date Madhuri Whitman APRN CNP PCP - General Nurse Practitioner - Family 09/04/16 08/23/20 [place] [address] [place] [address] PCP - General Family Medicine 08/24/20 01/23/22 No Ref-Primary, Physician PCP - General 02/20/22 06/29/22 [place] [address] [place] [address] PCP - General Family Medicine 06/30/22 [place] DPM [address] [facility] [address] [place] [address] Podiatry 10/18/16 Craig Montenegro PA-C [address] [place] [address] Assigned PCP 09/28/19 01/31/20 Altagracia Alexander DPM, Podiatry/Foot and Ankle Surgery [address] [place] [address] Assigned Musculoskeletal Provider 01/09/20 10/30/20 [place] [address] [place] [address] Assigned PCP 02/01/20 08/28/20 Cy Leonardo Personal Advocate & Liaison (PAL) 08/26/20 10/13/20 [place] [address] [place] [address] Assigned PCP 08/29/20 10/08/23 Rebecca Palumbo MD [address] [place] [address] 297 [place], [place] [address] Assigned Neuroscience Provider 10/01/20 10/14/21 Anders Ramachandran Personal Advocate & Liaison (PAL) 10/14/20 07/07/21 Magdalena Brice Personal Advocate & Liaison (PAL) 11/14/21 12/27/21 Maddie Mae Personal Advocate & Liaison (PAL) Family Medicine 12/28/21 Aydee Mcgill RN RN Clinical Product Navigator Primary Care - CC 06/30/22 06/30/22 Wendy Agustin APRN RADAR ENGINEER [address] [facility] [address] [place] [address] Assigned PCP 10/09/23 documented as of this encounter
--- OUTSIDE RECORDS SUMMARY | 2023-12-12 00:44 | XMS_ITS | Encounter Summary ---
Author Organization [facility] Address [address] [place] [address]. [place] [address] Care Team Providers Care Director Data Architecture Name Role Phone Yvette Edu DPM Unavailable [phone] Enrico Felton DO Primary Care Provider [phone] Enrico Felton DO Unavailable [phone] Rebecca Palumbo MD Unavailable [phone] Anders Ramachandran Unavailable Unavailable Magdalena Brice Unavailable Unavailable Maddie Mae Unavailable Unavailable No Ref-Primary, Physician Primary Care Provider Enrico Felton DO Primary Care Provider [phone] Aydee Mcgill RN Unavailable [phone] Wendy Agustin APRN DBA DEVELOPER Unavailable [phone] Encounter Details Date Type Department Care Team (Late st Contact Info) Description 01/27/[address] [facility] [address] [place] [address] [place] [id number] [place] [address] Social History Tobacco Use Types Packs/Day [...] Info) Description 12/21/2023 2:00 PM CDT Appointment [facility] Wound [facility] [address] [place] [address] [address] [place] [address] Kingsley Westbrook DPM [address] [place], [place] [address] documented as of this encounter Goals Goal Patient Goal Type Associated Problems Recent Progress Patient-Stated? Author Financial Wellbeing General Yes Rosey Alexander, GASKET WINDER documented as of this encounter Visit Diagnoses Not on filedocumented in this encounter Additional Health Concerns Infection Onset Date Last Indicated Resolved Time 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 per 09/01/16 department director note; left foot tissue 10/08/16 10/11/2018 02/27/2019 Assessment Noted Time PHQ-9 Depression Total Score: 3 08/24/19 21 12:19 PM CDT documented as of this encounter Care Teams Director Data Architecture Relationship Specialty [place] [address] [place] [address] PCP - General Family Medicine 08/24/20 01/23/22 No Ref-Primary, Physician PCP - General 02/20/22 06/29/22 [place] [address] [place] [address] PCP - General Family Medicine 06/30/22 [place] DPM [address] [facility] [address] [place] [address] Podiatry 10/18/16 [place] [address] [place] [address] Assigned PCP 08/29/20 10/08/23 Rebecca Palumbo MD [address] [place] [address] 297 [place], [place] [address] Assigned Neuroscience Provider 10/01/20 10/14/21 Anders Ramachandran Personal Advocate & Liaison (PAL) 10/14/20 07/07/21 Magdalena Brice Personal Advocate & Liaison (PAL) 11/14/21 12/27/21 Maddie Mea Personal Advocate & Liaison (PAL) Family Medicine 12/28/21 Aydee Mcgill RN ROQUE Clinical Product Navigator Primary Care - CC 06/30/22 06/30/22 Wendy Agustin APRN DBA DEVELOPER [address] [facility] [address] [place] [address] Assigned PCP 10/09/23 documented as of this encounter
--- OUTSIDE RECORDS SUMMARY | 2023-12-12 00:44 | XMS_ITS | Encounter Summary ---
Author Organization [facility] Address [address] [place] [address] Care Team Providers Care [place] Boatman Name Role Phone Madhuri Whitman APRN SYNCHRONIZER Primary Care Prov ider Edu Crawford DPM Unavailable Altagracia Alexander DPM, Podiatry /Foot and Ankle Surgery Unavailable Enrico Felton DO Unavailable [phone] Enrcio Felton DO Primary Care Provider [phone] Cy Leonardo Unavailable Unavailable Enrico Felton DO Unavailable [phone] Rebecca Palumbo MD Unavailable [phone] Anders Ramachandran Unavailable Unavailable Magdalena Brice Unavailable Unavailable Maddie Mae Unavailable Unavailable No Ref-Primary, Physician Primary Care Provider Enrico Felton DO Primary Care Provider [phone] Aydee Mcgill RN Unavailable [phone] Wendy Agustin APRN SYNCHRONIZER Unavailable [phone] Encounter Details Date Type Department Care Team (Late st Contact Info) Description 05/20/2020 MyC Medical Advice [address] [address] Camila Mejia Social History Tobacco [...] CDT Appointment [facility] [address] [place] [address] [address] [place] [address] Kingsley Westbrook DPM [address] [place] [address] 401625 documented as of this encounter Goals Goal Patient Goal Type Associated Problems Recent Progress Patient-Stated? 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 per 09/01/16 rip saw operator note; left foot tissue 10/08/16 10/11/2018 02/27/2019 Assessment Noted Time PHQ-9 Depression Total Score: 10 020 4:12 PM TRANSIT MAN documented as of this encounter Care Teams [place] Boatman Relationship Specialty Start Date End Date Madhuri Whitman APRN CNP PCP - General Nurse Practitioner - Family 09/04/16 08/23/20 [place] [address] [place] [address] PCP - General Family Medicine 08/24/20 01/23/22 No Ref-Primary, Physician PCP - General 02/20/22 06/29/22 [place] [address] [place] [address] PCP - General Family Medicine 06/30/22 [place] [address] [place] [address] Podiatry 10/18/16 Altagracia Alexander DPM, Podiatry/Foot and Ankle Surgery [address] [place], [place] 5624[address] Assigned Musculoskeletal Provider 01/09/20 10/30/20 [place] [address] [place] [address] Assigned PCP 02/01/20 08/28/20 Cy Leonardo Personal Advocate & Liaison (PAL) 08/26/20 10/13/20 [place] [address] [place] [address] Assigned PCP 08/29/20 10/08/23 Rebecca Palumbo MD [address] [place] [address] 389035 Assigned Neuroscience Provider 10/01/20 10/14/21 Anders Ramachandran Personal Advocate & Liaison (PAL) 10/14/20 07/07/21 Magdalena Brice Personal Advocate & Liaison (PAL) 11/14/21 12/27/21 Maddie Mae Personal Advocate & Liaison (PAL) Family Medicine 12/28/21 Aydee Mcgill RN RN Clinical Product Navigator Primary Care - CC 06/30/22 06/30/22 Wendy Agustin APRN SYNCHRONIZER [address] [facility] [address] [place], [place] 29[address] Assigned PCP 10/09/23 documented as of this encounter
--- OUTSIDE RECORDS SUMMARY | 2023-12-12 00:44 | XMS_ITS | Encounter Summary ---
Author Organization [facility] Address [address] [place] [address] Care Team Providers Care Commercial Real Estate Underwriter Name Role Phone Madhuri Whitman APRN RECRUITMENT INTERNSHIP Primary Care Prov ider Edu Crawford DPM Unavailable [phone] Madhuri Whitman APRN RECRUITMENT INTERNSHIP Unavailable + Rosey Alexander UPHOLSTERY TECH Unavailable [phone] Craig Montenegro PA-C Unavailable [phone] Altagracia Alexander DPM, Podiatry /Foot and Ankle Surgery Unavailable Enrico Felton DO Unavailable [phone] Enrico Felton DO Primary Care Provider [phone] Cy Leonardo Unavailable Unavailable Enrico Felton DO Unavailable [phone] Rebecca Palumbo MD Unavailable [phone] Anders Ramachandran Unavailable Unavailable Magdalnea Brice Unavailable Unavailable Maddie Mae Unavailable Unavailable No Ref-Primary, Physician Primary Care Provider Enrico Felton DO Primary Care Provider [phone] Aydee Mcgill RN Unavailable [phone] Wendy Agustin APRN RECRUITMENT INTERNSHIP Unavailable [phone] Encounter Details Date Type Department Care Team (Late st Contact Info) Description 04/30/2019 MyC Medical Advice [facility] [address] [facility], [address] [place] [address] Mleissa Flores, LINK WIRE FABRIC MACHINE OPERATOR Social History Tobacco Use Types Packs/Day Years [...] Info) Description 12/21/2023 2:00 PM CDT Appointment [facility] [address] [place] [address] Kingsley Westbrook DPM 420 [place] [address] documented as of this encounter Goals Goal Patient Goal Type Associated Problems Recent Progress Patient-Stated? Author Financial Wellbeing General Yes Rosey Alexander, UPHOLSTERY TECH documented as of this encounter Visit Diagnoses Not on filedocumented in this encounter Additional Health Concerns Infection Onset Date Last Indicated Resolved Time 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 per 09/01/16 precision mechanical instrument maker note; left foot tissue 10/08/16 10/11/2018 02/27/2019 Assessment Noted Time PHQ-9 Depression Total Score: 1 02/18/20 19 2:22 PM BANDAGE MAKER documented as of this encounter Care Teams Commercial Real Estate Underwriter Relationship Specialty Start Date End Date Madhuri Whitman APRN CNP PCP - General Nurse Practitioner - Family 09/04/16 08/23/20 [place] [address] [place] [address] PCP - General Family Medicine 08/24/20 01/23/22 No Ref-Primary, Physician PCP - General 02/20/22 06/29/22 [place] [address] [place] [address] PCP - General Family Medicine 06/30/22 [place] [address] [facility] [address] [place] [address] Podiatry 10/18/16 Madhuri Whitman APRN RECRUITMENT INTERNSHIP [address] [address] [address] Assigned PCP 09/03/16 09/27/19 Rosey Alexander, UPHOLSTERY TECH Lead Recruitment Internship Primary Care - CC 11/08/18 05/07/19 Craig Montenegro PA-C [address] [place] [address] Assigned PCP 09/28/19 01/31/20 Altagracia Alexander DPM, Podiatry/Foot and Ankle Surgery [address] [place] [address] 300 [place] [address] Assigned Musculoskeletal Provider 01/09/20 10/30/20 [place] [address] [place] [address] Assigned PCP 02/01/20 08/28/20 Cy Leonardo Personal Advocate & Liaison (PAL) 08/26/20 10/13/20 [place] [address] [place] [address] Assigned PCP 08/29/20 10/08/23 Rebecca Palumbo MD [address] [place] [address] 297 [place], [place] 2209[address] Assigned Neuroscience Provider 10/01/20 10/14/21 Anders Ramachandran Personal Advocate & Liaison (PAL) 10/14/20 07/07/21 Magdalena Brice Personal Advocate & Liaison (PAL) 11/14/21 12/27/21 Maddie Mae Personal Advocate & Liaison (PAL) Family Medicine 12/28/21 Aydee Mcgill RN ROQUE Clinical Product Navigator Primary Care - CC 06/30/22 06/30/22 Wendy Agustin APRN RECRUITMENT INTERNSHIP [address] [place] [address] Assigned PCP 10/09/23 documented as of this encounter
--- OUTSIDE RECORDS SUMMARY | 2023-12-12 00:44 | XMS_ITS | Encounter Summary ---
Author Organization [facility] Address [address] [place] [address]. [place] [address] Care Team Providers Care Site Leader Name Role Phone Yvette Edu DPM Unavailable [phone] Enrico Felton DO Primary Care Provider [phone] Enrico Felton DO Unavailable [phone] Rebecca Palumbo MD Unavailable [phone] Anders Ramachandran Unavailable Unavailable Magdalena Brice Unavailable Unavailable Maddie Mae Unavailable Unavailable No Ref-Primary, Physician Primary Care Provider Enrico Felton DO Primary Care Provider [phone] Aydee Mcgill RN Unavailable [phone] Wendy Agustin APRN SURGICAL SERVICES ASST Unavailable [phone] Encounter Details Date Type Department Care Team (Late st Contact Info) Description 11/17/2020 MyC Medical Advice [facility] [address] [place] [address] [place] [id number] [place] [address] Social History Tobacco Use Types Packs/Day [...] Info) Description 12/21/2023 2:00 PM CDT Appointment [facility] W[facility] [address] [place] [address] [address] [place] [address] Kingsley Westbrook DPM 420 [place], [place] 4[address] documented as of this encounter Goals Goal Patient Goal Type Associated Problems Recent Progress Patient-Stated? Author Financial Wellbeing General Yes Rosey Alexander, SEATING CAPTAIN documented as of this encounter Visit Diagnoses Not on filedocumented in this encounter Additional Health Concerns Infection Onset Date Last Indicated Resolved Time 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 per 09/01/16 gas worker note; left foot tissue 10/08/16 10/11/2018 02/27/2019 Assessment Noted Time PHQ-9 Depression Total Score: 3 08/24/19 21 12:19 PM CDT documented as of this encounter Care Teams Site Leader Relationship Specialty [place] [address] [place] [address] PCP - General Family Medicine 08/24/20 01/23/22 No Ref-Primary, Physician PCP - General 02/20/22 06/29/22 [place] [address] [place] [address] PCP - General Family Medicine 06/30/22 [place] DPM [address] [facility] [address] [place] [address] Podiatry 10/18/16 [place] [address] [place] [address] Assigned PCP 08/29/20 10/08/23 Rebecca Palumbo MD [address] [place] [address] 297 [place], [place] 88[address] Assigned Neuroscience Provider 10/01/20 10/14/21 Anders Ramachandran Personal Advocate & Liaison (PAL) 10/14/20 07/07/21 Magdalena Brice Personal Advocate & Liaison (PAL) 11/14/21 12/27/21 Maddie Mae Personal Advocate & Liaison (PAL) Family Medicine 12/28/21 Aydee Mcgill RN ROQUE Clinical Product Navigator Primary Care - CC 06/30/22 06/30/22 Wendy Agustin APRN SURGICAL SERVICES ASST [address] [facility] [address] [place] [address] Assigned PCP 10/09/23 documented as of this encounter
--- OUTSIDE RECORDS SUMMARY | 2023-12-12 00:44 | XMS_ITS | Encounter Summary ---
Author Organization [place] Address [address] [place] [address] Care Team Providers Care Biomedical Service Engineer Name Role Phone Madhuri Whitman APRN PHYSICIAN OBSTETRICIAN Primary Care Prov ider Edu Crawford DPM Unavailable Altagracia Alexander DPM, Podiatry /Foot and Ankle Surgery Unavailable Enrico Felton DO Unavailable [phone] Enrico Felton DO Primary Care Provider [phone] Cy Leonardo Unavailable Unavailable Enrico Felton DO Unavailable [phone] Rebecca Palumbo MD Unavailable [phone] Anders Ramachandran Unavailable Unavailable Magdalena Brice Unavailable Unavailable Maddie Mae Unavailable Unavailable No Ref-Primary, Physician Primary Care Provider Enrico Felton DO Primary Care Provider [phone] Aydee Mcgill RN Unavailable [phone] Wendy Agustin APRN PHYSICIAN OBSTETRICIAN Unavailable [phone] Reason for Visit * Reason Comments Medication Refill Encounter Details Date Type Department Care Team (Late st Contact Info) Description 05/19/[address], [address] [place] [address] Craig Montenegro PA-C [address] [place] [address] Medication Refill Social History Tobacco Use Types [...] CDT No appt made, routing back to refills. * Telephone Encounter - Camila Mejia - 06/01/2020 8:01 AM CDT 3rd attempt, mailed out letter * Telephone Encounter - Dianelys Smalls - 05/25/2020 11:44 AM CST Attempted to call pt x3 getting Call Rejected message. Unable to lvm. Sending second MyChart message. Maeev Smalls- Armoured Car Escort F RESEARCH SCIENTIST * Telephone Encounter - Camila Mejia - 05/20/2020 2:41 PM CST 1st attempt, sent [employer] message to schedule px & fasting labs F RESEARCH SCIENTIST * Telephone Encounter - Earline Powell, RN - 05/20/2020 2:03 PM CST Please help patient schedule fasting px. Last labs 06/2018. Visit Type Follow Up 01/21/2020 Enrico Felton DO Virtual Visit Return in about 3 months (around 04/22/2020) for Routine preventive. Route to refill if med coverage needed. Earline Powell RN F RESEARCH SCIENTIST documented in this encounter Plan of Treatment Upcoming Encounters Date Type Department Care Team (Late st Contact Info) Description 12/21/2023 2:00 PM CDT Appointment [facility] [address] [place] [phone] Kingsley Westbrook, DPBharath [address] [place], [place] [address] documented as of this encounter Goals Goal Patient Goal Type Associated Problems Recent Progress Patient-Stated? Author Financial Wellbeing General Yes Rosey Alexander, LAUNDRY WORKER documented as of this encounter Visit Diagnoses Diagnosis Hyperlipidemia with target LDL less than 100 Other and unspecified hyperlipidemia documented in this encounter Additional Health Concerns Infection Onset Date Last Indicated Resolved Time 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 per 09/01/16 automation controls specialist note; left foot tissue 10/08/16 10/11/2018 02/27/2019 Assessment Noted Time PHQ-9 Depression Total Score: 10 020 4:12 PM STAFF RESEARCH SCIENTIST documented as of this encounter Care Teams Biomedical Service Engineer Relationship Specialty Start Date End Date Madhuri Whitman APRN PHYSICIAN OBSTETRICIAN PCP - General Nurse Practitioner - Family 09/04/16 08/23/20 [place] [address] [place] [address] PCP - General Family Medicine 08/24/20 01/23/22 No Ref-Primary, Physician PCP - General 02/20/22 06/29/22 [place] [address] [place] [address] PCP - General Family Medicine 06/30/22 [place] [address] [facility] [address] [place], [place] [address] Podiatry 10/18/16 Altagracia Alexander DPM, Podiatry/Foot and Ankle Surgery [address] [facility] [address] [place], [place] [id number] Assigned Musculoskeletal Provider 01/09/20 10/30/20 [place] [address] [place] [address] Assigned PCP 02/01/20 08/28/20 Cy Leonardo Personal Advocate & Liaison (PAL) 08/26/20 10/13/20 [place] [address] [place] [address] Assigned PCP 08/29/20 10/08/23 Rebecca Palumbo MD [address] [place] [address] [address] [place], [place] [address] Assigned Neuroscience Provider 10/01/20 10/14/21 Anders Ramachandran Personal Advocate & Liaison (PAL) 10/14/20 07/07/21 Magdalena Brice Personal Advocate & Liaison (PAL) 11/14/21 12/27/21 Maddie Mae Personal Advocate & Liaison (PAL) Family Medicine 12/28/21 Aydee Mcgill RN RN Clinical Product Navigator Primary Care - CC 06/30/22 06/30/22 Wendy Agustin APRN PHYSICIAN OBSTETRICIAN [address] [facility] [address] [place], [place] [address] Assigned PCP 10/09/23 documented as of this encounter
--- OUTSIDE RECORDS SUMMARY | 2023-12-12 00:44 | XMS_ITS | Encounter Summary ---
Author Organization [place] Address [address] [place] [address] Care Team Providers Care Abstract Searcher Name Role Phone Edu Crawford DPM Unavailable [phone] Altagracia Alexander DPM, Podiatry /Foot and Ankle Surgery Unavailable Enrico Felton DO Primary Care Provider [phone] Cy Leonardo Unavailable Unavailable Enrico Felton DO Unavailable [phone] Rebecca Palumbo MD Unavailable [phone] Anders Ramachandran Unavailable Unavailable Magdalena Brice Unavailable Unavailable Maddie Mae Unavailable Unavailable No Ref-Primary, Physician Primary Care Provider Enrico Felton DO Primary Care Provider [phone] Aydee Mcgill RN Unavailable [phone] Wendy Agustin APRN CABLE SPOOLER Unavailable [phone] Encounter Details Date Type Department Care [...] Info) Description 12/21/2023 2:00 PM CDT Appointment [facility] [place] [address] [facility] [address] [place] [phone] Kingsley Westbrook DPM [address] [place] [address] documented as of this encounter Goals Goal Patient Goal Type Associated Problems Recent Progress Patient-Stated? Author Financial Wellbeing General Yes Rosey Alexander, AUTOMATIC DEVELOPER documented as of this encounter Visit Diagnoses Not on filedocumented in this encounter Additional Health Concerns Infection Onset Date Last Indicated Resolved Time 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 per 09/01/16 ceramic coater note; left foot tissue 10/08/16 10/11/2018 02/27/2019 Assessment Noted Time PHQ-9 Depression Total Score: 3 08/24/19 21 12:19 PM CDT documented as of this encounter Care Teams Abstract Searcher Relationship Specialty [place] [address] [place] [address] PCP - General Family Medicine 08/24/20 01/23/22 No Ref-Primary, Physician PCP - General 02/20/22 06/29/22 [place] [address] [place] [address] PCP - General Family Medicine 06/30/22 [place] [address] [facility] [address] [place] [address] Podiatry 10/18/16 Altagracia Alexander DPM, Podiatry/Foot and Ankle Surgery [address] [place] [address] Assigned Musculoskeletal Provider 01/09/20 10/30/20 Cy Leonardo Personal Advocate & Liaison (PAL) 08/26/20 10/13/20 [place] [address] [place] [address] Assigned PCP 08/29/20 10/08/23 Rebecca Palumbo MD [address] [place] [address] [address] [place], [place] [address] Assigned Neuroscience Provider 10/01/20 10/14/21 Anders Ramachandran Personal Advocate & Liaison (PAL) 10/14/20 07/07/21 Magdalena Brice Personal Advocate & Liaison (PAL) 11/14/21 12/27/21 Maddie Mae Personal Advocate & Liaison (PAL) Family Medicine 12/28/21 Aydee Mcgill RN ROQUE Clinical Product Navigator Primary Care - CC 06/30/22 06/30/22 Wendy Agustin APRN CABLE SPOOLER [address] [facility] [address] [place], [place] [address] Assigned PCP 10/09/23 documented as of this encounter
--- OUTSIDE RECORDS SUMMARY | 2023-12-12 00:44 | XMS_ITS | Encounter Summary ---
Author Organization [facility] Address [address] [place] [address] Care Team Providers Care Protective Services Case Worker Name Role Phone Edu Crawford DPM Unavailable [phone] Altagracia Alexander DPM, Podiatry /Foot and Ankle Surgery Unavailable Enrico Felton DO Primary Care Provider [phone] Cy Leonardo Unavailable Unavailable Enrico Felton DO Unavailable [phone] Rebecca Palumbo MD Unavailable [phone] Anders Ramachandran Unavailable Unavailable Magdalena Brice Unavailable Unavailable Maddie Mae Unavailable Unavailable No Ref-Primary, Physician Primary Care Provider Enrico Felton DO Primary Care Provider [phone] Aydee Mcgill RN Unavailable [phone] Wendy Agustin APRN STEEL POST INSTALLER Unavailable [phone] Encounter Details Date Type Department Care Team (Late st Contact Info) Description 10/05/2020 MyC Medical Advice [facility] Centralized Scheduling [address] [place] [address] Beverley Woodward Social History Tobacco [...] 2:00 PM CDT Appointment [facility] [address] [place] [address] Kingsley Westbrook DPM [address] [place] [address] documented as of this encounter Goals Goal Patient Goal Type Associated Problems Recent Progress Patient-Stated? 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 per 09/01/16 in classroom tutor note; left foot tissue 10/08/16 10/11/2018 02/27/2019 Assessment Noted Time PHQ-9 Depression Total Score: 3 08/24/19 21 12:19 PM CDT documented as of this encounter Care Teams Protective Services Case Worker Relationship Specialty [place] [address] [place] [address] PCP - General Family Medicine 08/24/20 01/23/22 No Ref-Primary, Physician PCP - General 02/20/22 06/29/22 [place] [address] [place] [address] PCP - General Family Medicine 06/30/22 [place] [address] [place] [address] Podiatry 10/18/16 Altagracia Alexander DPM, Podiatry/Foot and Ankle Surgery [address] [place], [place] [address] Assigned Musculoskeletal Provider 01/09/20 10/30/20 Cy Leonardo Personal Advocate & Liaison (PAL) 08/26/20 10/13/20 [place] [address] [place] [address] Assigned PCP 08/29/20 10/08/23 Rebecca Palumbo MD [address] [place] [address] 297 [place], [place] [address] Assigned Neuroscience Provider 10/01/20 10/14/21 Anders Ramachandran Personal Advocate & Liaison (PAL) 10/14/20 07/07/21 Magdalena Brice Personal Advocate & Liaison (PAL) 11/14/21 12/27/21 Maddie Mae Personal Advocate & Liaison (PAL) Family Medicine 12/28/21 Aydee Mcgill RN ROQUE Clinical Product Navigator Primary Care - CC 06/30/22 06/30/22 Wendy Agustin APRN STEEL POST INSTALLER [address] [facility] [address] [place], [place] [address] Assigned PCP 10/09/23 documented as of this encounter
--- OUTSIDE RECORDS SUMMARY | 2023-12-12 00:44 | XMS_ITS | Encounter Summary ---
Author Organization [place] Address [address] [place] [address] Care Team Providers Care Conference Concierge Name Role Phone Madhuri Whitman SCHOOL TREASURER SUPERVISOR ELECTRIC MOTOR TESTING Primary Care Prov ider Edu Crawford DPM Unavailable [phone] Madhuri Whitman APRN SUPERVISOR ELECTRIC MOTOR TESTING Unavailable + Rosey Alexander CRITICAL CARE TRANSPORT NURSE Unavailable Rosey Alexander CRITICAL CARE TRANSPORT NURSE Unavailable [phone] Craig Montenegro PA-C Unavailable [phone] Altagracia Alexander DPM, Podiatry /Foot and Ankle Surgery Unavailable Enrico Felton DO Unavailable [phone] Enrico Felton DO Primary Care Provider [phone] Cy Leonardo Unavailable Unavailable Enrico Felton DO Unavailable [phone] Rebecca Palumbo MD Unavailable [phone] Anders Ramachandran Unavailable Unavailable Magdalena Brice Unavailable Unavailable Maddie Mae Unavailable Unavailable No Ref-Primary, Physician Primary Care Provider Enrico Felton DO Primary Care Provider [phone] Aydee Mcgill RN Unavailable [phone] Wendy Agustin SCHOOL TREASURER SUPERVISOR ELECTRIC MOTOR TESTING Unavailable Reason for Visit * Reason Onset Date Comments Refill Request 10/30/2018 Wheelchair order Refill Request 11/15/2018 Encounter Details Date Type Department Care Team (Late st Contact Info) Description 10/30/2018 Refill [facility] [address] [facility], [address] [place] [address] Madhuri Whitman APRN SUPERVISOR ELECTRIC MOTOR TESTING [address] [facility] [facility] [place] [address] Refill Request (Wheelchair order); Refill Request Social [...] Description 12/21/2023 2:00 PM CDT Appointment [facility] Wound [address] [place] [phone] Kingsley Westbrook DPM [address] [place], [place] [address] documented as of this encounter Visit Diagnoses Not on filedocumented in this encounter Additional Health Concerns Infection Onset Date Last Indicated Resolved Time 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 per 09/01/16 charging crane operator note; left foot tissue 10/08/16 10/11/2018 02/27/2019 Assessment Noted Time PHQ-9 Depression Total Score: 3 06/22/19 19 2:29 PM CDT documented as of this encounter Care Teams Conference Concierge Relationship Specialty Start Date End Date Madhuri Whitman APRN SUPERVISOR ELECTRIC MOTOR TESTING PCP - General Nurse Practitioner - Family 09/04/16 08/23/20 [place] [address] [place] [address] PCP - General Family Medicine 08/24/20 01/23/22 No Ref-Primary, Physician PCP - General 02/20/22 06/29/22 [place] [address] [place] [address] PCP - General Family Medicine 06/30/22 [place] [address] [facility] [address] [place], [place] [address] Podiatry 10/18/16 Madhuri Whitman, WANDY SUPERVISOR ELECTRIC MOTOR TESTING [address] [place] [address] Assigned PCP 09/03/16 09/27/19 Rosey Alexander, [facility] Clinic Asphalt Layer Primary Care - CC 09/27/18 9 Rosey Alexander, [facility] Lead Asphalt Layer Primary Care - CC 11/08/18 05/07/19 Craig Montenegro PA-C [address] [place] [address] Assigned PCP 09/28/19 01/31/20 Altagracia Alexander DPM, Podiatry/Foot and Ankle Surgery [address] [place], [place] [address] Assigned Musculoskeletal Provider 01/09/20 10/30/20 [place] [address] [place] [address] Assigned PCP 02/01/20 08/28/20 Cy Leonardo Personal Advocate & Liaison (PAL) 08/26/20 10/13/20 [place] [address] [place] [address] Assigned PCP 08/29/20 10/08/23 Rebecca Palumbo MD [address] [place] [address] [address] [place] [address] Assigned Neuroscience Provider 10/01/20 10/14/21 Anders Ramachandran Personal Advocate & Liaison (PAL) 10/14/20 07/07/21 Magdalena Brice Personal Advocate & Liaison (PAL) 11/14/21 12/27/21 Maddie Mae Personal Advocate & Liaison (PAL) Family Medicine 12/28/21 Aydee Mcgill RN ROQUE Clinical Product Navigator Primary Care - CC 06/30/22 06/30/22 Wendy Agustin APRN SUPERVISOR ELECTRIC MOTOR TESTING [address] [facility] [address] [place] [address] Assigned PCP 10/09/23 documented as of this encounter
[2023-12-12] MEDS: LORazepam 2 MG/ML inj 1 MG IVP (00:45)
--- OUTSIDE RECORDS SUMMARY | 2023-12-12 00:45 | XMS_ITS | Encounter Summary ---
Author Organization [place] Address [address] [place] [address] Care Team Providers Care Allopathic Doctor Name Role Phone Dwayne Draper MD Primary Care Provider + DoctorHawa MD Primary Care Provider Unavailabl e Madhuri Whitman CORPORATE RELATIONS DIRECTOR CASE FINISHER Primary Care Prov ider Kaylen Aiken RN Unavailable [phone] Edu Crawford DPM Unavailable [phone] Madhuri Whitman CORPORATE RELATIONS DIRECTOR CASE FINISHER Unavailable + Madhuri Whitman CORPORATE RELATIONS DIRECTOR CASE FINISHER Unavailable + Rosey Alexander LANOLIN PLANT OPERATOR Unavailable [phone] Rosey Alexander LANOLIN PLANT OPERATOR Unavailable [phone] Craig Montenegro PA-C Unavailable [phone] Altagracia Alexander DPM, Podiatry /Foot and Ankle Surgery Unavailable Enrico Felton DO Unavailable [phone] Enrico Felton DO Primary Care Provider [phone] Cy Leonardo Unavailable Unavailable Enrico Felton DO Unavailable [phone] Rebecca Palumbo MD Unavailable [phone] Anders Ramachandran Unavailable Unavailable Magdalena Brice Unavailable Unavailable Maddie Mae Unavailable Unavailable No Ref-Primary, Physician Primary Care Provider Enrico Felton DO Primary Care Provider [phone] Aydee Mcgill RN Unavailable [phone] Wendy Agustin CORPORATE RELATIONS DIRECTOR CASE FINISHER Unavailable [phone] Encounter Details Date Type Department Care Team (Late st Contact Info) Description 01/25/2012 MyC Medical Advice [place] [address] [facility] [place] [address] [place] [address] [place] [address] Social History Tobacco Use Types [...] [facility] [place] [address] [place] [address] Kingsley Westbrook DPM [address] [place] [address] documented as of this encounter Visit Diagnoses Not on filedocumented in this encounter Additional Health Concerns Infection Onset Date Last Indicated Resolved Time 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 per 09/01/16 commercial horticulture instructor note; left foot tissue 10/08/16 09/01/2016 09/01/2016 10/11/2018 7:49 AM C DT 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 per 09/01/16 commercial horticulture instructor note; left foot tissue 10/08/16 10/11/2018 02/27/2019 documented as of this encounter Care Teams Allopathic Doctor Relationship Specialty Start Date End Date Dwayne Draper MD PCP - General Family Practice 07/11/11 05/28/14 Hawa Wasserman MD PCP - General 06/29/15 09/03/16 Madhuri Whitman APRN CASE FINISHER PCP - General Nurse Practitioner - Family 09/04/16 08/23/20 Madhuri Whitman APRN CASE FINISHER [address] [address] [address] PCP - Assigned PCP 09/03/16 05/21/18 [place] [address] [place] [address] PCP - General Family Medicine 08/24/20 01/23/22 No Ref-Primary, Physician PCP - General 02/20/22 06/29/22 [place] [address] [place] [address] PCP - General Family Medicine 06/30/22 Kaylen Aiken, [facility] Clinic Dining Room Coordinator 10/18/16 [place] D[place] [address] [facility] [address] [place] [address] Podiatry 10/18/16 Madhuri Whitman APRN CASE FINISHER [address] [address] [address] Assigned PCP 09/03/16 09/27/19 Rosey Alexander, LANOLIN PLANT OPERATOR Clinic Dining Room Coordinator Primary Care - CC 09/27/18 9 Rosey Alexander, LANOLIN PLANT OPERATOR Lead Dining Room Coordinator Primary Care - CC 11/08/18 05/07/19 Craig Montenegro PA-C [address] [place] [address] Assigned PCP 09/28/19 01/31/20 Altagracia Alexander DPM, Podiatry/Foot and Ankle Surgery [address] [place] [address] Assigned Musculoskeletal Provider 01/09/20 10/30/20 [place] [address] [place] [address] Assigned PCP 02/01/20 08/28/20 yC Leonardo Personal Advocate & Liaison (PAL) 08/26/20 10/13/20 [place] [address] [place] [address] Assigned PCP 08/29/20 10/08/23 Rebecca Palumbo MD [address] [place] [address] 345825 Assigned Neuroscience Provider 10/01/20 10/14/21 Anders Ramachandran Personal Advocate & Liaison (PAL) 10/14/20 07/07/21 Magdalena Brice Personal Advocate & Liaison (PAL) 11/14/21 12/27/21 Maddie Mae Personal Advocate & Liaison (PAL) Family Medicine 12/28/21 Aydee Mcgill RN RN Clinical Product Navigator Primary Care - CC 06/30/22 06/30/22 eWndy Agustin APRN CASE FINISHER [address] [facility] [address] [place] [address] Assigned PCP 10/09/23 [facility] 10/18/16 06/24/17 [facility] 07/27/17 08/14/17 documented as of this encounter
--- OUTSIDE RECORDS SUMMARY | 2023-12-12 00:45 | XMS_ITS | Encounter Summary ---
Author Organization [facility] Address [address] [place] [address] Care Team Providers Care Algebraist Name Role Phone Madhuri Whitman TURRET LATHE OPERATOR LAB PACK CHEMIST Primary Care Prov ider Kaylen Aiken RN Unavailable [phone] Edu CrawfordM Unavailable [phone] Madhuri Whitman APRN LAB PACK CHEMIST Unavailable + Madhuri Whitman APRN LAB PACK CHEMIST Unavailable + Rosey Alexander WORKERS' COMPENSATION COMMISSIONER Unavailable Rosey Alexander WORKERS' COMPENSATION COMMISSIONER Unavailable [phone] Craig Montenegro PA-C Unavailable [phone] Altagracia Alexander DPM, Podiatry /Foot and Ankle Surgery Unavailable Enrico Felton DO Unavailable [phone] Enrico Felton DO Primary Care Provider [phone] Cy Leonardo Unavailable Unavailable Enrico Felton DO Unavailable [phone] Rebecca Palumbo MD Unavailable [phone] Anders Ramachandran Unavailable Unavailable Magdalena Brice Unavailable Unavailable Maddie Mae Unavailable Unavailable No Ref-Primary, Physician Primary Care Provider Jose FranciscoEnrico Primary Care Provider Aydee Mcgill RN Unavailable [phone] VamsiWendy WANDY LAB PACK CHEMIST Unavailable [phone] Reason for Visit * Reason Onset Date Comments Medication Refill 01/23/2017 PARoxetine (PA XIL) 20 MG tablet Encounter Details Date Type Department Care Team (Late st Contact Info) Description 01/22/[address], [address] [place] [address] Madhuri Whitman APRN CNP [address] [place] [address] Medication Refill (PARoxetine (PAXIL) 20 [...] to call clinic back. Kayleigh Foster RN PRESIDENT OF TALENT MANAGEMENT * Telephone Encounter - Madhuri Whitman APRN CNP - 01/26/2017 1:26 PM VICE PRESIDENT OF TALENT MANAGEMENT Please call patient and update her PHQ9. Refilled x 1 month as I have not seen her for this in the past. Will need to either follow up with me in the next month for future refills or she could see ifher pain management provider is willing to prescribe for her. Madhuri Whitman CNP PRESIDENT OF TALENT MANAGEMENT * Telephone Encounter - Kayleigh Foster RN [...] that she see's the pain clinic in [place] every 3 weeks and I asked that she schedule an appointment here when she goes to that appointment and she said there is no way her friend that drives her will sit in another doctors office and wait for her. Patient requesting an rx refill. Kayleigh Foster RN PRESIDENT OF TALENT MANAGEMENT * Telephone Encounter - Gosia John RN - 01/25/2017 2:49 PM VICE PRESIDENT OF TALENT MANAGEMENT LM on to call back. Gosia Pastrana RN, BSN, N [place] Doshi RN PRESIDENT OF TALENT MANAGEMENT * Telephone Encounter - Madhuri Whitman APRN CNP - 01/25/2017 1:30 PM VICE PRESIDENT OF TALENT MANAGEMENT I have never seen her for this. Looks like it was last refilled while in patient and she is taking TID not BID?? Please call and verify dose. I will refill x 1 month and she needs to be seen in clinic for further refills. Madhuri Whitman CNP PRESIDENT OF TALENT MANAGEMENT * Telephone Encounter - Kayleigh Foster RN - 01/23/2017 3:22 PM CST PHQ-9 SCORE 11/12/2012 11/28/2012 04/10/2013 Total Score 23 26 12 Routing refill request to provider for review/approval because: PHQ-9 > 4. Kayleigh Foster RN PRESIDENT OF TALENT MANAGEMENT * Telephone Encounter - Laureen Baumann - 01/23/2017 2:07 PM CST PARoxetine (PAXIL) 20 MG tablet (Historical) Sig: Take 20 mg by mouth 3 times daily Last Written Prescription Date: Unknown Last Fill Quantity: Unknown, # refills: Unknown Last Office Visit with [facility], P or [facility] prescribing provider: 09/08/2016 Future Office visit: Paxil was increased in the hospital 10/06/16. Routing refill request to provider for review/approval because: Medication is reported/historical DOMINGO Katz January 23, 2017 2:10 PM PRESIDENT OF TALENT MANAGEMENT documented in this encounter Plan of Treatment Upcoming Encounters Date Type Department Care Team (Late st Contact Info) Description 12/21/2023 2:00 PM CDT Appointment [facility] [place] [address] [place] [address] Kingsley Westbrook DPM [address] [place] [address] documented as of this encounter Visit Diagnoses Diagnosis Single current episode of major depressive disorder, unspecified depression episode severity documented in this encounter Additional Health Concerns Infection Onset Date Last Indicated Resolved Time 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 per 09/01/16 photo print specialist note; left foot tissue 10/08/16 09/01/2016 09/01/2016 10/11/2018 7:49 AM C DT 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 per 09/01/16 photo print specialist note; left foot tissue 10/08/16 10/11/2018 02/27/2019 documented as of this encounter Care Teams Algebraist Relationship Specialty Start Date End Date Madhuri Whitman APRN LAB PACK CHEMIST PCP - General Nurse Practitioner - Family 09/04/16 08/23/20 Madhuri Whitman APRN LAB PACK CHEMIST [address] [facility] [address] PCP - Assigned PCP 09/03/16 05/21/18 [place] [address] [place] [address] PCP - General Family Medicine 08/24/20 01/23/22 No Ref-Primary, Physician PCP - General 02/20/22 06/29/22 [place] [address] [place] [address] PCP - General Family Medicine 06/30/22 Kaylen Aiken, [facility] Clinic Siebel Architect 10/18/16 Edu Crawford DPM [id number] [place] [address] [address] [place] [address] Podiatry 10/18/16 Madhuri Whitman APRN CNP [address] [place] [address] Assigned PCP 09/03/16 09/27/19 [facility] Siebel Architect Primary Care - CC 09/27/18 9 [facility] Lead Siebel Architect Primary Care - CC 11/08/18 05/07/19 Craig Montenegro PA-C [address] [place] [address] Assigned PCP 09/28/19 01/31/20 Altagracia Alexander DPM, Podiatry/Foot and Ankle Surgery [address] [place] [address] Assigned Musculoskeletal Provider 01/09/20 10/30/20 [place] [address] [place] [address] Assigned PCP 02/01/20 08/28/20 Cy Leonardo Personal Advocate & Liaison (PAL) 08/26/20 10/13/20 [place] [address] [place] [address] Assigned PCP 08/29/20 10/08/23 Rebecca Palumbo MD [address] [place] [address] [address] [place], [place] [address] Assigned Neuroscience Provider 10/01/20 10/14/21 Anders Ramachandran Personal Advocate & Liaison (PAL) 10/14/20 07/07/21 Magdalena Brice Personal Advocate & Liaison (PAL) 11/14/21 12/27/21 Maddie Mae Personal Advocate & Liaison (PAL) Family Medicine 12/28/21 Aydee Mcgill RN ROQUE Clinical Product Navigator Primary Care - CC 06/30/22 06/30/22 Wendy Agustin APRN LAB PACK CHEMIST [address] [facility] [address] [place], [place] [address] Assigned PCP 10/09/23 [facility] 10/18/16 06/24/17 [facility] 07/27/17 08/14/17 documented as of this encounter
--- OUTSIDE RECORDS SUMMARY | 2023-12-12 00:45 | XMS_ITS | Encounter Summary ---
Author Organization [facility] Address [address] [place] [address] Care Team Providers Care Gypsum Calciner Name Role Phone Pramod Sweet MD Primary Care Provider + DoctorHawa MD Primary Care Provider Unavailabl e Madhuri Whitman SUSTAINMENT LOGISTICS ANALYST EDUCATION ADVISER Primary Care Prov ider Kaylen Aiken RN Unavailable [phone] Edu Crawford DPM Unavailable [phone] Madhuri Whitman SUSTAINMENT LOGISTICS ANALYST EDUCATION ADVISER Unavailable + Madhuri Whitman SUSTAINMENT LOGISTICS ANALYST EDUCATION ADVISER Unavailable + Rosey Alexander LAPEL STITCHER Unavailable [phone] Rosey Alexander LAPEL STITCHER Unavailable [phone] Craig Montenegro PA-C Unavailable +[phone] Altagracia Alexander DPM, Podiatry /Foot and Ankle Surgery Unavailable Enrico Felton DO Unavailable [phone] Enrico Felton DO Primary Care Provider [phone] Cy Leonardo Unavailable Unavailable Enrico Felton DO Unavailable [phone] Rebecca Palumbo MD Unavailable [phone] Anders Ramachandran Unavailable Unavailable Magdalena Brice Unavailable Unavailable JesusMaddie bryant Unavailable Unavailable No Ref-Primary, Physician Primary Care Provider Enrico Felton DO Primary Care Provider [phone] Aydee Mcgill RN Unavailable [phone] Wendy Agustin APRN EDUCATION ADVISER Unavailable [phone] Encounter Details Date Type Department Care Team (Late st Contact Info) Description 09/13/2011 Office Visit-[facility] [place] [address] [facility] [address] [place] [address] Kuldeep Herndon MD [address] [facility] [address] [place] [address] Social History Tobacco [...] mg Tablet, 2 p.o. twice daily 5. Shawnee 3-6-9 1,200 mg Capsule, 1 p.o. daily 6. omeprazole 20 mg Tablet, Delayed Release (E.C.), 1 p.o. daily 7. oxycodone 10 mg Tablet, 2 p.o. three times daily 8. Paxil 20 mg Tablet, 1 p.o. three times daily CHIEF COMPLAINTS HISTORY OF PRESENT ILLNESS It was my pleasure to see your patient, Jatinder DeL a Paz, in consultation for a left bundle [...] LVEF not documented FAMILY HISTORY: Father - OR; Brother 1 - CVA, unknown type; Uncle(P) [...] - not working; Residence - lives in [place] year round; REVIEW OF SYSTEMS GENERAL feels [...] Tablet, 2 p.o. twice daily, #0 (Zero) Shawnee 3-6-9 1,200 mg Capsule, 1 p.o. daily, [...] [facility] [address] [place] [phone] Kingsley Westbrook, DPBharath [address] [place] [address] documented as of this encounter Visit Diagnoses Not on filedocumented in this encounter Additional Health Concerns Infection Onset Date Last Indicated Resolved Time 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 per 09/01/[address] note; left foot tissue 10/08/16 09/01/2016 09/01/2016 10/11/2018 7:49 AM C DT 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 per 09/01/[address] note; left foot tissue 10/08/16 10/11/2018 02/27/2019 documented as of this encounter Care Teams Gypsum Calciner Relationship Specialty Start Date End Date Pramod Sweet MD PCP - General Family Practice 07/11/11 05/28/14 Hawa Wasserman MD PCP - General 06/29/15 09/03/16 Madhuri Whitman APRN EDUCATION ADVISER PCP - General Nurse Practitioner - Family 09/04/16 08/23/20 Madhuri Whitman APRN EDUCATION ADVISER [address] [address] PCP - Assigned PCP 09/03/16 05/21/18 [place] [address] [place] [address] PCP - General Family Medicine 08/24/20 01/23/22 No Ref-Primary, Physician PCP - General 02/20/22 06/29/22 [place] [address] [place] [address] PCP - General Family Medicine 06/30/22 Kaylen Aiken, [facility] Clinic Freight Car Inspector 10/18/16 Edu Crawford DPM [address] [facility] [address] [place] [address] Podiatry 10/18/16 Madhuri Whitman APRN EDUCATION ADVISER [address] [address] [address] Assigned PCP 09/03/16 09/27/19 Rosey Alexander LSW Clinic Freight Car Inspector Primary Care - 09/27/18 9 Rosey Alexander, LAPEL STITCHER Lead Freight Car Inspector Primary Care - CC 11/08/18 05/07/19 Craig Montenegro PA-C [address] [facility] [place] [address] Assigned PCP 09/28/19 01/31/20 Altagracia Alexander DPM, Podiatry/Foot and Ankle Surgery [address] [place] [address] Assigned Musculoskeletal Provider 01/09/20 10/30/20 [place] [address] [place] [address] Assigned PCP 02/01/20 08/28/20 Cy Leonardo Personal Advocate & Liaison (PAL) 08/26/20 10/13/20 [place] [address] [place] [address] Assigned PCP 08/29/20 10/08/23 Rebecca Palumbo MD [address] [place] [address] Assigned Neuroscience Provider 10/01/20 10/14/21 Anders Ramachandran Personal Advocate & Liaison (PAL) 10/14/20 07/07/21 Magdalena Brice Personal Advocate & Liaison (PAL) 11/14/21 12/27/21 Maddie Mae Personal Advocate & Liaison (PAL) Family Medicine 12/28/21 Aydee Mcgill RN RN Clinical Product Navigator Primary Care - CC 06/30/22 06/30/22 Wendy Agustin APRN EDUCATION ADVISER [address] [facility] [address] [place] [address] Assigned PCP 10/09/[address] [facility] 10/18/16 06/24/17 [facility] [employer] 07/27/17 08/14/17 documented as of this encounter
--- OUTSIDE RECORDS SUMMARY | 2023-12-12 00:45 | XMS_ITS | Encounter Summary ---
Author Organization [place] Address [address] [place] [address] Care Team Providers Care Mill Operator Head Name Role Phone Madhuri Whitman DOCTOR OF NAPRAPATHY WAX CUTTER Primary Care Prov ider Kaylen Aiken RN Unavailable [phone] Edu CrawfordM Unavailable [phone] Madhuri Whitman APRN WAX CUTTER Unavailable + Madhuri Whitman APRN WAX CUTTER Unavailable + Rosey Alexander PRODUCT RESPONSIBILITY LIAISON Unavailable Rosey Alexander PRODUCT RESPONSIBILITY LIAISON Unavailable [phone] Craig Montenegro PA-C Unavailable [phone] Altagracia Alexander DPM, Podiatry /Foot and Ankle Surgery Unavailable Enrico Felton DO Unavailable [phone] Enrico Felton DO Primary Care Provider [phone] Cy Leonardo Unavailable Unavailable Enrico Felton DO Unavailable [phone] Rebecca Palumbo MD Unavailable [phone] Anders Ramachandran Unavailable Unavailable Magdalena Brice Unavailable Unavailable Maddie Mae Unavailable Unavailable No Ref-Primary, Physician Primary Care Provider Enrico Felton DO Primary Care Provider Aydee Mcgill RN Unavailable [phone] Wendy Agustin DOCTOR OF NAPRAPATHY WAX CUTTER Unavailable [phone] Encounter Details Date Type Department Care Team (Late st Contact Info) Description 06/22/2017 MyC Medical Advice [address], [address] [place] [address] Malou Vallejo Social History Tobacco [...] Info) Description 12/21/2023 2:00 PM CDT Appointment [facility] [address] [place] [address] Kingsley Westbrook DPM [address] [place] [address] documented as of this encounter Visit Diagnoses Not on filedocumented in this encounter Additional Health Concerns Infection Onset Date Last Indicated Resolved Time 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 per 09/01/16 cutter woodwind reeds note; left foot tissue 10/08/16 09/01/2016 09/01/2016 10/11/2018 7:49 AM C DT 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 per 09/01/16 cutter woodwind reeds note; left foot tissue 10/08/16 10/11/2018 02/27/2019 Assessment Noted Time PHQ-9 Depression Total Score: 4 02/22/20 17 1:32 PM LOCOMOTIVE OPERATOR HELPER documented as of this encounter Care Teams Mill Operator Head Relationship Specialty Start Date End Date Madhuri Whitman APRN WAX CUTTER PCP - General Nurse Practitioner - Family 09/04/16 08/23/20 Madhuri Whitman APRN WAX CUTTER [address] [place] [address] PCP - Assigned PCP 09/03/16 05/21/18 [place] [address] [place] [address] PCP - General Family Medicine 08/24/20 01/23/22 No Ref-Primary, Physician PCP - General 02/20/22 06/29/22 [place] [address] [place] [address] PCP - General Family Medicine 06/30/22 Kaylen Aiken, [facility] Health Plan Manager 10/18/16 Edu Crawford DPM [address] [facility] [address] [place] [address] Podiatry 10/18/16 Madhuri Whitman APRN WAX CUTTER [address] [place] [address] Assigned PCP 09/03/16 09/27/19 Rosey Alexander LSW Clinic Health Plan Manager Primary Care - CC 09/27/18 9 Rosey Alexander LSW Lead Health Plan Manager Primary Care - CC 11/08/18 05/07/19 Craig Montenegro PA-C [address] [place] [address] Assigned PCP 09/28/19 01/31/20 Altagracia Alexander, DPM, Podiatry/Foot and Ankle Surgery [address] [place] [address] Assigned Musculoskeletal Provider 01/09/20 10/30/20 [place] [address] [place] [address] Assigned PCP 02/01/20 08/28/20 Cy Leonardo Personal Advocate & Liaison (PAL) 08/26/20 10/13/20 [place] [address] [place] [address] Assigned PCP 08/29/20 10/08/23 Rebecca Palumbo MD [address] [place] [address] [address] [place] [address] Assigned Neuroscience Provider 10/01/20 10/14/21 Anders Ramachandran Personal Advocate & Liaison (PAL) 10/14/20 07/07/21 Magdalena Brice Personal Advocate & Liaison (PAL) 11/14/21 12/27/21 Maddie Mae Personal Advocate & Liaison (PAL) Family Medicine 12/28/21 Aydee Mcgill RN ROQUE Clinical Product Navigator Primary Care - CC 06/30/22 06/30/22 Wendy Agustin APRN WAX CUTTER [address] [facility] [address] [place], [place] [address] Assigned PCP 10/09/23 [facility] 10/18/16 06/24/17 [facility] 07/27/17 08/14/17 documented as of this encounter
--- OUTSIDE RECORDS SUMMARY | 2023-12-12 00:45 | XMS_ITS | Encounter Summary ---
Author Organization [place] Address [address] [place] [address] Care Team Providers Care Lease Attendant Name Role Phone Dwayne Draper MD Primary Care Provider + DoctorHawa MD Primary Care Provider Unavailabl e Madhuri Whitman CRITICAL CARE TRANSPORT NURSE CANDLE WRAPPER Primary Care Prov ider Kaylen Aiken RN Unavailable [phone] Edu Crawford DPM Unavailable [phone] Madhuri Whitman CRITICAL CARE TRANSPORT NURSE CANDLE WRAPPER Unavailable + Madhuri Whitman CRITICAL CARE TRANSPORT NURSE CANDLE WRAPPER Unavailable + Rosey Alexander FISHING VESSEL MATE Unavailable [phone] Rosey Alexander FISHING VESSEL MATE Unavailable [phone] Craig Montenegro PA-C Unavailable +[phone] Altagracia Alexander DPM, Podiatry /Foot and Ankle Surgery Unavailable Enrico Felton DO Unavailable [phone] Enrico Felton DO Primary Care Provider [phone] Cy Leonardo Unavailable Unavailable Enrico Felton DO Unavailable [phone] Rebecca Palumbo MD Unavailable [phone] Anders Ramachandran Unavailable Unavailable Magdalena Brice Unavailable Unavailable Maddie Mae Unavailable Unavailable No Ref-Primary, Physician Primary Care Provider Enrico Felton DO Primary Care Provider [phone] Aydee Mcgill RN Unavailable [phone] Wendy Agustin CRITICAL CARE TRANSPORT NURSE CANDLE WRAPPER Unavailable [phone] Encounter Details Date Type Department Care Team (Late st Contact Info) Description 06/17/2012 MyC Medical Advice [address], [address] [place] [address] [facility] Social History Tobacco Use Types Packs/Day [...] [facility] Wound [address] [place] [address] Kingsley Westbrook DPM [address] [place] [address] documented as of this encounter Visit Diagnoses Not on filedocumented in this encounter Additional Health Concerns Infection Onset Date Last Indicated Resolved Time 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 per 09/01/16 clinical asst note; left foot tissue 10/08/16 09/01/2016 09/01/2016 10/11/2018 7:49 AM C DT 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 per 09/01/16 clinical asst note; left foot tissue 10/08/16 10/11/2018 02/27/2019 documented as of this encounter Care Teams Lease Attendant Relationship Specialty Start Date End Date Dwayne Draper MD PCP - General Family Practice 4/24/12 3/12/15 Hawa Wasserman, PCP - General 06/29/15 09/03/16 Madhuri Whitman APRN CANDLE WRAPPER PCP - General Nurse Practitioner - Family 09/04/16 08/23/20 Madhuri Whitman APRN CANDLE WRAPPER [address] [place] [address] PCP - Assigned PCP 09/03/16 05/21/18 [place] [address] [place] [address] PCP - General Family Medicine 08/24/20 01/23/22 No Ref-Primary, Physician PCP - General 02/20/22 06/29/22 [place] [address] [place] [address] PCP - General Family Medicine 06/30/22 Kaylen Aiken, [facility] Clinic Veterinary Dentist 10/18/16 Edu Crawford DPM [address] [facility] [address] [place] [address] Podiatry 10/18/16 Madhuri Whitman APRN CANDLE WRAPPER [address] [address] Assigned PCP 09/03/16 09/27/19 Rosey Alexander LSW Clinic Veterinary Dentist Primary Care - CC 09/27/18 9 Rosey Alexander, FISHING VESSEL MATE Lead Veterinary Dentist Primary Care - CC 11/08/18 05/07/19 Craig Montenegro PA-C [address] [place] [address] Assigned PCP 09/28/19 01/31/20 Altagracia Alexander DPM, Podiatry/Foot and Ankle Surgery [address] [place] [address] Assigned Musculoskeletal Provider 01/09/20 10/30/20 [place] [address] [place] [address] Assigned PCP 02/01/20 08/28/20 Cy Leonardo Personal Advocate & Liaison (PAL) 08/26/20 10/13/20 [place] [address] [place] [address] Assigned PCP 08/29/20 10/08/23 Rebecca Palumbo MD [address] [place] [id number] Assigned Neuroscience Provider 10/01/20 10/14/21 Anders Ramachandran Personal Advocate & Liaison (PAL) 10/14/20 07/07/21 Magdalena Brice Personal Advocate & Liaison (PAL) 11/14/21 12/27/21 Maddie Mae Personal Advocate & Liaison (PAL) Family Medicine 12/28/21 Aydee Mcgill, RN RN Clinical Product Navigator Primary Care - CC 06/30/22 06/30/22 Wendy Agustin APRN CANDLE WRAPPER [address] [facility] [address] [place] [address] Assigned PCP 10/09/[address] [facility] [employer] 10/18/16 06/24/17 [facility] [employer] 07/27/17 08/14/17 documented as of this encounter
--- OUTSIDE RECORDS SUMMARY | 2023-12-12 00:45 | XMS_ITS | Encounter Summary ---
Author Organization [place] Address [address] [place] [address] Care Team Providers Care Chainman Name Role Phone Madhuri Whitman CASTING ROOM HELPER CPC CODER Primary Care Prov ider Kaylen Aiken RN Unavailable [phone] Edu CrawfordM Unavailable [phone] Madhuri Whitman APRN CPC CODER Unavailable + Madhuri Whitman APRN CPC CODER Unavailable + Rosey Alexander FLOORWORKER Unavailable Rosey Alexander FLOORWORKER Unavailable [phone] Craig Montenegro PA-C Unavailable [phone] Altagracia Alexander DPM, Podiatry /Foot and Ankle Surgery Unavailable Enrico Felton DO Unavailable [phone] Enrico Felton DO Primary Care Provider [phone] Cy Leonardo Unavailable Unavailable Enrico Felton DO Unavailable [phone] Rebecca Palumbo MD Unavailable [phone] Anders Ramachandran Unavailable Unavailable Magdalena Brice Unavailable Unavailable Maddie Mae Unavailable Unavailable No Ref-Primary, Physician Primary Care Provider Enrico Felton DO Primary Care Provider Aydee Mcgill RN Unavailable [phone] Wendy Agustin APRN CPC CODER Unavailable [phone] Encounter Details Date Type Department Care Team (Late st Contact Info) Description 11/27/2016 MyC Medical Advice [address], [address] [place] [address] Malou Vallejo Social History Tobacco [...] Info) Description 12/21/2023 2:00 PM CDT Appointment [facility] [address] [place] [address] Kingsley Westbrook, GAYLA [address] [place] [address] documented as of this encounter Visit Diagnoses Not on filedocumented in this encounter Additional Health Concerns Infection Onset Date Last Indicated Resolved Time 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 per 09/01/16 light rail operator note; left foot tissue 10/08/16 09/01/2016 09/01/2016 10/11/2018 7:49 AM C DT 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 per 09/01/16 light rail operator note; left foot tissue 10/08/16 10/11/2018 02/27/2019 documented as of this encounter Care Teams Chainman Relationship Specialty Start Date End Date Madhuri Whitman APRN CPC CODER PCP - General Nurse Practitioner - Family 09/04/16 08/23/20 Madhuri Whitman APRN CPC CODER [address] [place] [address] PCP - Assigned PCP 09/03/16 05/21/18 [place] [address] [place] [address] PCP - General Family Medicine 08/24/20 01/23/22 No Ref-Primary, Physician PCP - General 02/20/22 06/29/22 [place] [address] [place] [address] PCP - General Family Medicine 06/30/22 Kaylen Aiken, ROQUE [facility] University Relations Recruiter 10/18/16 Edu Crawford DPM [address] [facility] [address] [place], [place] [address] Podiatry 10/18/16 Madhuri Whitman APRN CPC CODER [address] [address] Assigned PCP 09/03/16 09/27/19 Rosey Alexander LSW Clinic University Relations Recruiter Primary Care - CC 09/27/18 9 Rosey Alexander LSW Lead University Relations Recruiter Primary Care - CC 11/08/18 05/07/19 Craig Montenegro PA-C [address] [address] [address] Assigned PCP 09/28/19 01/31/20 Altagracia Alexander, DPM, Podiatry/Foot and Ankle Surgery [address] [place] [address] Assigned Musculoskeletal Provider 01/09/20 10/30/20 [place] [address] [place] [address] Assigned PCP 02/01/20 08/28/20 Cy Leonardo Personal Advocate & Liaison (PAL) 08/26/20 10/13/20 [place] [address] [place] [address] Assigned PCP 08/29/20 10/08/23 Rebecca Palumbo MD [address] [place] [address] [address] [place], [place] [address] Assigned Neuroscience Provider 10/01/20 10/14/21 Anders Ramachandran Personal Advocate & Liaison (PAL) 10/14/20 07/07/21 Magdalena Brice Personal Advocate & Liaison (PAL) 11/14/21 12/27/21 Maddie Mae Personal Advocate & Liaison (PAL) Family Medicine 12/28/21 Aydee Mcgill, RN RN Clinical Product Navigator Primary Care - CC 06/30/22 06/30/22 Wendy Agustin APRN CPC CODER [address] [facility] [address] [place] [address] Assigned PCP 10/09/23 [place] [phone] (Work) [facility] 10/18/16 06/24/17 [facility] 07/27/17 08/14/17 documented as of this encounter
--- OUTSIDE RECORDS SUMMARY | 2023-12-12 00:45 | XMS_ITS | Encounter Summary ---
Author Organization [place] Address [address] [place] [address] Care Team Providers Care Esol Teacher Name Role Phone Madhuri Whitman FORENSICS ANALYST ORDER ENTRY TECHNICIAN Primary Care Prov ider Edu Crawford DPM Unavailable [phone] Madhuri Whitman APRN ORDER ENTRY TECHNICIAN Unavailable + Madhuri Whitman APRN ORDER ENTRY TECHNICIAN Unavailable + Rosey Alexander EMERGENCY DOCTOR Unavailable [phone] Rosey Alexander EMERGENCY DOCTOR Unavailable [phone] Craig Montenegro PA-C Unavailable [phone] Altagracia Alexander DPM, Podiatry /Foot and Ankle Surgery Unavailable Enrico Felton DO Unavailable [phone] Enrico Felton DO Primary Care Provider [phone] Cy Leonardo Unavailable Unavailable Enrico Felton DO Unavailable [phone] Rebecca Palumbo MD Unavailable [phone] Anders Ramachandran Unavailable Unavailable Magdalena Brice Unavailable Unavailable Maddie Mae Unavailable Unavailable No Ref-Primary, Physician Primary Care Provider Enrico Felton DO Primary Care Provider [phone] Aydee Mcgill RN Unavailable [phone] Wendy Agustin FORENSICS ANALYST ORDER ENTRY TECHNICIAN Unavailable [phone] Reason for Visit * Reason Onset Date Comments Medication Refill 11/20/2017 amLODIPine and lisinopril Encounter Details Date Type Department Care Team (Late st Contact Info) Description 11/17/[address], [address] [place] [address] Madhuri Whitman, FORENSICS ANALYST ORDER ENTRY TECHNICIAN [address] [place] [address] Medication Refill (amLODIPine and lisinopril ) Social [...] 11/20/2017 11:08 AM CDT Pres[place] [facility] [place] Protocol. 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 per 09/01/16 medical records field technician note; left foot tissue 10/08/16 09/01/2016 09/01/2016 10/11/2018 7:49 AM C DT 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 per 09/01/16 medical records field technician note; left foot tissue 10/08/16 10/11/2018 02/27/2019 Assessment Noted Time PHQ-9 Depression Total Score: 0 07/29/19 18 2:19 PM CDT documented as of this encounter Care Teams Esol Teacher Relationship Specialty Start Date End Date Madhuri Whitman APRN ORDER ENTRY TECHNICIAN PCP - General Nurse Practitioner - Family 09/04/16 08/23/20 Madhuri Whitman APRN ORDER ENTRY TECHNICIAN [address] [place] [address] PCP - Assigned PCP 09/03/16 05/21/18 [place] [address] [place] [address] PCP - General Family Medicine 08/24/20 01/23/22 No Ref-Primary, Physician PCP - General 02/20/22 06/29/22 [place] [address] [place] [address] PCP - General Family Medicine 06/30/22 Edu Crawford DPM [address] [facility] [address] [place], [place] [address] Podiatry 10/18/16 Madhuri Whitman APRN ORDER ENTRY TECHNICIAN [address] [place] [address] Assigned PCP 09/03/16 09/27/19 Rosey Alexander, EMERGENCY DOCTOR Clinic Rice Dryer Mechanic Primary Care - CC 09/27/18 9 Rosey Alexander, EMERGENCY DOCTOR Lead Rice Dryer Mechanic Primary Care - CC 11/08/18 05/07/19 Craig Montenegro PA-C [address] [place] [address] Assigned PCP 09/28/19 01/31/20 Altagracia Alexander DPM, Podiatry/Foot and Ankle Surgery [address] [facility] [address] [place], [place] [address] Assigned Musculoskeletal Provider 01/09/20 10/30/20 [place] [address] [place] [address] Assigned PCP 02/01/20 08/28/20 Cy Leonardo Personal Advocate & Liaison (PAL) 08/26/20 10/13/20 [place] [address] [place] [address] Assigned PCP 08/29/20 10/08/23 Rebecca Palumbo MD [address] [place] [address] [address] [place], [place] [address] Assigned Neuroscience Provider 10/01/20 10/14/21 Anders Ramachandran Personal Advocate & Liaison (PAL) 10/14/20 07/07/21 Magdalena Brice Personal Advocate & Liaison (PAL) 11/14/21 12/27/21 Maddie Mae Personal Advocate & Liaison (PAL) Family Medicine 12/28/21 Aydee Mcgill, RN RN Clinical Product Navigator Primary Care - CC 06/30/22 06/30/22 Wendy Agustin APRN ORDER ENTRY TECHNICIAN [address] [place] [address] Assigned PCP 10/09/23 documented as of this encounter
--- OUTSIDE RECORDS SUMMARY | 2023-12-12 00:45 | XMS_ITS | Encounter Summary ---
Author Organization [place] Address [address] [place] [address] Care Team Providers Care Service Architect Name Role Phone Dwayne Draper MD Primary Care Provider + DoctorHawa MD Primary Care Provider Unavailabl e Madhuri Whitman SALES REPRESENTATIVE PRINTING PAPER QUANTOMETER OPERATOR Primary Care Prov ider Kaylen Aiken RN Unavailable [phone] Edu Crawford DPM Unavailable [phone] Madhuri Whitman SALES REPRESENTATIVE PRINTING PAPER QUANTOMETER OPERATOR Unavailable + Madhuri Whitman SALES REPRESENTATIVE PRINTING PAPER QUANTOMETER OPERATOR Unavailable + Rosey Alexander STEAMFITTER APPRENTICE Unavailable [phone] Rosey Alexander STEAMFITTER APPRENTICE Unavailable [phone] Craig Montenegro PA-C Unavailable +[phone] Altagracia Alexander DPM, Podiatry /Foot and Ankle Surgery Unavailable Enrico Felton DO Unavailable [phone] Enrico Felton DO Primary Care Provider [phone] Cy Leonardo Unavailable Unavailable Enrico Felton DO Unavailable [phone] Rebecca Palumbo MD Unavailable [phone] Anders Ramachandran Unavailable Unavailable Magdalena Brice Unavailable Unavailable Maddie Mae Unavailable Unavailable No Ref-Primary, Physician Primary Care Provider Enrico Felton DO Primary Care Provider [phone] Nano Aydee K RN Unavailable [phone] Wendy Agustin APRN QUANTOMETER OPERATOR Unavailable [phone] Reason for Visit * Reason Onset Date Comments Refill Request 03/08/2012 Oxycodone, metha done Encounter Details Date Type Department Care Team (Late st Contact Info) Description 03/08/2012 MyC Refill [facility] [address] [place] [address], [address] [place] [address] [place] [address] [place] [address] Refill Request (Oxycodone, methadone) Social [...] rx's ready to be picked up at front end developer designer. Kayleigh Foster RN INSPECTOR * Telephone Encounter - Diane Erazo - 03/08/2012 8:16 AM CSTMessage from MyChart: Original authorizing provider: Dwayne Draper MD, MD Alyssa Palencia would like a refill of the following medications: oxyCODONE (ROXICODONE) 10 MG immediate release tablet [Dwayne Draper MD, MD] methadone (DOLOPHINE) 10 MG tablet [Dwayne Draper MD, MD] Preferred pharmacy: [facility] Comment: I am leaving for [place] on mar 10 and will not be back until mar 25 2012 so I need to gat them filled before I leave since they are a narcitic I think I have to worm picker the script at the clinic INSPECTOR documented in this encounter Plan of Treatment Upcoming Encounters Date Type Department Care Team (Late st Contact Info) Description 12/21/2023 2:00 PM CDT Appointment [facility] [place] [address] [place] [address] Kingsley Westbrook, DPBharath [address] [facility] [address] [place], [place] [address] documented as of this encounter Visit Diagnoses Diagnosis Chronic pain- Primary Other chronic pain documented in this encounter Additional Health Concerns Infection Onset Date Last Indicated Resolved Time 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 per 09/01/[address] tech note; left foot tissue 10/08/16 09/01/2016 09/01/2016 10/11/2018 7:49 AM C DT 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 per 09/01/[address] tech note; left foot tissue 10/08/16 10/11/2018 02/27/2019 documented as of this encounter Care Teams Service Architect Relationship Specialty Start Date End Date Dwayne Draper MD PCP - General Family Practice 07/11/11 05/28/14 Hawa Wasserman MD PCP - General 06/29/15 09/03/16 Madhuri Whitman APRN QUANTOMETER OPERATOR PCP - General Nurse Practitioner - Family 09/04/16 08/23/20 Madhuri Whitman APRN QUANTOMETER OPERATOR [address] [address] PCP - Assigned PCP 09/03/16 05/21/18 [place] [address] [place] [address] PCP - General Family Medicine 08/24/20 01/23/22 No Ref-Primary, Physician PCP - General 02/20/22 06/29/22 [place] [address] [place] [address] PCP - General Family Medicine 06/30/22 Kaylen Aiken, ROQUE Clinic Hot Worker 10/18/16 Edu Crawford DPM [address] [facility] [address] [place], [place] [address] Podiatry 10/18/16 Madhuri Whitman APRN QUANTOMETER OPERATOR [address] [place] [id number] Assigned PCP 09/03/16 09/27/19 Rosey Alexander, [facility] Clinic Hot Worker Primary Care - CC 09/27/18 9 Rosey Alexander, [facility] Lead Hot Worker Primary Care - CC 11/08/18 05/07/19 Craig Montenegro PA-C [address] [place] [id number] Assigned PCP 09/28/19 01/31/20 Altagracia Alexander DPM, Podiatry/Foot and Ankle Surgery [address] [place] [address] Assigned Musculoskeletal Provider 01/09/20 10/30/20 [place] [address] [place] [address] Assigned PCP 02/01/20 08/28/20 Cy Leonardo Personal Advocate & Liaison (PAL) 08/26/20 10/13/20 [place] [address] [place] [address] Assigned PCP 08/29/20 10/08/23 Reebcca Palumbo MD [address] [place] [address] [address] [place] [address] Assigned Neuroscience Provider 10/01/20 10/14/21 Anders Ramachandran Personal Advocate & Liaison (PAL) 10/14/20 07/07/21 Magdalena Brice Personal Advocate & Liaison (PAL) 11/14/21 12/27/21 Maddie Mae Personal Advocate & Liaison (PAL) Family Medicine 12/28/21 Aydee Mcgill RN ROQUE Clinical Product Navigator Primary Care - CC 06/30/22 06/30/22 Wendy Agustin APRN QUANTOMETER OPERATOR [address] [facility] [address] [place], [place] [address] Assigned PCP 10/09/23 [facility] 10/18/16 06/24/17 [facility] 07/27/17 08/14/17 documented as of this encounter
--- OUTSIDE RECORDS SUMMARY | 2023-12-12 00:45 | XMS_ITS | Encounter Summary ---
Author Organization [place] Address [address] [place] [address] Care Team Providers Care Strategy Execution Consultant Name Role Phone Dwayne Draper MD Primary Care Provider + DoctorHawa MD Primary Care Provider Unavailabl e Madhuri Whitman CARPENTER'S HELPER TRANSPORT TECH Primary Care Prov ider Kaylen Aiken RN Unavailable [phone] Edu Crawford DPM Unavailable [phone] Madhuri Whitman CARPENTER'S HELPER TRANSPORT TECH Unavailable + Madhuri Whitman CARPENTER'S HELPER TRANSPORT TECH Unavailable + Rosey Alexander TRAY ROOM WORKER Unavailable [phone] Rosey Alexander TRAY ROOM WORKER Unavailable [phone] Craig Montenegro PA-C Unavailable +[phone] Altagracia Alexander DPM, Podiatry /Foot and Ankle Surgery Unavailable Enrico Felton DO Unavailable Enrico Felton DO Primary Care Provider [phone] Cy Leonardo Unavailable Unavailable Enrico Felton DO Unavailable [phone] Rebecca Palumbo MD Unavailable [phone] Anders Ramachandran Unavailable Unavailable Magdalena Brice Unavailable Unavailable Maddie Mae Unavailable Unavailable No Ref-Primary, Physician Primary Care Provider Enrico Felton DO Primary Care Provider [phone] Aydee Mcgill RN Unavailable [phone] Wendy Agustin CARPENTER'S HELPER TRANSPORT TECH Unavailable [phone] Reason for Visit * Reason Onset Date Comments Refill Request 03/08/2012 Encounter Details Date Type Department Care Team (Late st Contact Info) Description 03/08/2012 MyC Refill [address], [address] [place] [address] [place] [address] [place] [address] Refill Request Social History Tobacco Use Types [...] CDT Appointment [facility] [place] [address] [place] [address] Kingsley Westbrook DPM [address] [place] [address] documented as of this encounter Visit Diagnoses Not on filedocumented in this encounter Additional Health Concerns Infection Onset Date Last Indicated Resolved Time 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 per 09/01/16 manager of internal note; left foot tissue 10/08/16 09/01/2016 09/01/2016 10/11/2018 7:49 AM C DT 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 per 09/01/16 manager of internal note; left foot tissue 10/08/16 10/11/2018 02/27/2019 documented as of this encounter Care Teams Strategy Execution Consultant Relationship Specialty Start Date End Date Dwayne Draper MD PCP - General Family Practice 07/11/11 05/28/14 Hawa Wasserman MD PCP - General 06/29/15 09/03/16 Madhuri Whitman APRN TRANSPORT TECH PCP - General Nurse Practitioner - Family 09/04/16 08/23/20 Madhuri Whitman APRN TRANSPORT TECH [address] [address] PCP - Assigned PCP 09/03/16 05/21/18 [place] [address] [place] [address] PCP - General Family Medicine 08/24/20 01/23/22 No Ref-Primary, Physician PCP - General 02/20/22 06/29/22 [place] [address] [facility] [place] [address] PCP - General Family Medicine 06/30/22 Kaylen Aiken, ROQUE Clinic Home Theater Expert 10/18/16 Edu Crawford DPM [address] [facility] [address] [place] [address] Podiatry 10/18/16 Madhuri Whitman APRN TRANSPORT TECH [address] [address] Assigned PCP 09/03/16 09/27/19 Rosey Alexander, [facility] Clinic Home Theater Expert Primary Care - CC 09/27/18 9 Rosey Alexander, [facility] Lead Home Theater Expert Primary Care - CC 11/08/18 05/07/19 Craig Montenegro PA-C [address] [place] [address] Assigned PCP 09/28/19 01/31/20 Altagracia Alexander DPM, Podiatry/Foot and Ankle Surgery [address] [place] [address] Assigned Musculoskeletal Provider 01/09/20 10/30/20 [place] [address] [place] [address] Assigned PCP 02/01/20 08/28/20 Cy Leonardo Personal Advocate & Liaison (PAL) 08/26/20 10/13/20 [place] [address] [place] [address] Assigned PCP 08/29/20 10/08/23 Rebecca Palumbo MD [address] [place] [address] [address] [place], [place] [address] Assigned Neuroscience Provider 10/01/20 10/14/21 Anders Ramachandran Personal Advocate & Liaison (PAL) 10/14/20 07/07/21 Magdalena Brice Personal Advocate & Liaison (PAL) 11/14/21 12/27/21 Maddie Mae Personal Advocate & Liaison (PAL) Family Medicine 12/28/21 Aydee Mcgill RN RN Clinical Product Navigator Primary Care - CC 06/30/22 06/30/22 Wendy Agusitn APRN TRANSPORT TECH [facility] [address] [place] [address] Assigned PCP 10/09/23 [facility] 10/18/16 06/24/17 [facility] [place] 07/27/17 08/14/17 documented as of this encounter
--- OUTSIDE RECORDS SUMMARY | 2023-12-12 00:45 | XMS_ITS | Encounter Summary ---
Author Organization [facility] Address [address] [place] [address] Care Team Providers Care Gelatin Maker Utility Name Role Phone Dwayne Draper MD Primary Care Provider + DoctorHawa MD Primary Care Provider Unavailabl e Madhuri Whitman PROFESSOR OF FRENCH AGRICULTURAL EQUIPMENT SALESPERSON Primary Care Prov ider Kaylen Aiken RN Unavailable [phone] Edu Crawford DPM Unavailable [phone] Madhuri Whitman PROFESSOR OF FRENCH AGRICULTURAL EQUIPMENT SALESPERSON Unavailable + Madhuri Whitman PROFESSOR OF FRENCH AGRICULTURAL EQUIPMENT SALESPERSON Unavailable + Rosey Alexander HEAD CHEF Unavailable [phone] Rosey Alexander HEAD CHEF Unavailable [phone] Craig Montenegro PA-C Unavailable +[phone] Altagracia Alexander DPM, Podiatry /Foot and Ankle Surgery Unavailable Enrico Felton DO Unavailable [phone] Enrico Felton DO Primary Care Provider [phone] Cy Leonardo Unavailable Unavailable Enrico Felton DO Unavailable Rebecca Palumbo MD Unavailable [phone] Adners Ramachandran Unavailable Unavailable Magdalena Brice Unavailable Unavailable Maddie Mae Unavailable Unavailable No Ref-Primary, Physician Primary Care Provider Enrico Felton DO Primary Care Provider [phone] Aydee Mcgill RN Unavailable [phone] Wendy Agustin PROFESSOR OF FRENCH AGRICULTURAL EQUIPMENT SALESPERSON Unavailable [phone] Encounter Details Date Type Department Care Team (Late st Contact Info) Description 01/16/2012 MyC Medical Advice [address], [address] [place] [address] [facility] Social History Tobacco Use Types [...] 2:00 PM CDT Appointment [facility]ound [address] [place] [address] Kingsley Westbrook DPM [address] [place] [address] documented as of this encounter Visit Diagnoses Not on filedocumented in this encounter Additional Health Concerns Infection Onset Date Last Indicated Resolved Time 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 per 09/01/16 printed circuit board pcb draftsman note; left foot tissue 10/08/16 09/01/2016 09/01/2016 10/11/2018 7:49 AM C DT 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 per 09/01/16 printed circuit board pcb draftsman note; left foot tissue 10/08/16 10/11/2018 02/27/2019 documented as of this encounter Care Teams Gelatin Maker Utility Relationship Specialty Start Date End Date Dwayne Draper MD PCP - General Family Practice 07/11/11 05/28/14 Hawa Wasserman, PCP - General 06/29/15 09/03/16 Madhuri Whitman APRN AGRICULTURAL EQUIPMENT SALESPERSON PCP - General Nurse Practitioner - Family 09/04/16 08/23/20 Madhuri Whitman APRN AGRICULTURAL EQUIPMENT SALESPERSON [address] [place] [address] PCP - Assigned PCP 09/03/16 05/21/18 [place] [address] [place] [address] PCP - General Family Medicine 08/24/20 01/23/22 No Ref-Primary, Physician PCP - General 02/20/22 06/29/22 [place] [address] [place] [address] PCP - General Family Medicine 06/30/22 Kaylen Aiken, ROQUE Clinic Corporate Planner 10/18/16 [place] D[place] [address] [facility] [address] [place] [address] Podiatry 10/18/16 Madhuri Whitman APRN AGRICULTURAL EQUIPMENT SALESPERSON [address] [address] Assigned PCP 09/03/16 09/27/19 Rosey Alexander, RENÉE Clinic Corporate Planner Primary Care - CC 09/27/18 9 Rosey Alexander, HEAD CHEF Lead Corporate Planner Primary Care - CC 11/08/18 05/07/19 Craig Montenegro PA-C [address] [place] [address] Assigned PCP 09/28/19 01/31/20 Altagracia Alexander DPM, Podiatry/Foot and Ankle Surgery [address] [place] [address] Assigned Musculoskeletal Provider 01/09/20 10/30/20 [place] [address] [place] [address] Assigned PCP 02/01/20 08/28/20 Cy Leonardo Personal Advocate & Liaison (PAL) 08/26/20 10/13/20 [place] [address] [place] [address] Assigned PCP 08/29/20 10/08/23 Rebecca Palumbo MD [address] [place] [address] 003985 Assigned Neuroscience Provider 10/01/20 10/14/21 Anders Ramachandran Personal Advocate & Liaison (PAL) 10/14/20 07/07/21 Magdalena Brice Personal Advocate & Liaison (PAL) 11/14/21 12/27/21 Maddie Mae Personal Advocate & Liaison (PAL) Family Medicine 12/28/21 Aydee Mcgill RN RN Clinical Product Navigator Primary Care - CC 06/30/22 06/30/22 Wendy Agustin APRN AGRICULTURAL EQUIPMENT SALESPERSON [address] [facility] [address] [place] [address] Assigned PCP 10/09/23 [facility] Home Care FundedByMe 10/18/16 06/24/17 [facility] Home Care FundedByMe 07/27/17 08/14/17 documented as of this encounter
--- OUTSIDE RECORDS SUMMARY | 2023-12-12 00:45 | XMS_ITS | Encounter Summary ---
Author Organization [facility] Address [address] [place] [address] Care Team Providers Care Final Inspector Movement Assembly Name Role Phone Madhuri Whitman TWISTING FRAME FIXER COOK FRY Primary Care Prov ider Edu Crawford DPM Unavailable [phone] Madhuri Whitman APRN COOK FRY Unavailable + Madhuri Whitman APRN COOK FRY Unavailable + Rosey Alexander FOREST FIRE MANAGEMENT OFFICER Unavailable [phone] Rosey Alexander FOREST FIRE MANAGEMENT OFFICER Unavailable [phone] Craig Montenegro PA-C Unavailable [phone] Altagracia Alexander DPM, Podiatry /Foot and Ankle Surgery Unavailable Enrico Felton DO Unavailable [phone] Enrico Felton DO Primary Care Provider [phone] Cy Leonardo Unavailable Unavailable Enrico Felton DO Unavailable [phone] Rebecca Palumbo MD Unavailable [phone] Anders Ramachandran Unavailable Unavailable Magdalena Brice Unavailable Unavailable Maddie Mae Unavailable Unavailable No Ref-Primary, Physician Primary Care Provider Enrico Felton DO Primary Care Provider [phone] Aydee Mcgill RN Unavailable [phone] Wendy Agustin APRN COOK FRY Unavailable [phone] Encounter Details Date Type Department Care Team (Late st Contact Info) Description 01/07/2018 MyC Medical Advice [address] [phone] Carina Antoine, RN Social History Tobacco Use [...] Info) Description 12/21/2023 2:00 PM CDT Appointment [facility] Wound [address] [place] [phone] Kingsley Westbrook DPM [address] [place] [address] documented as of this encounter Visit Diagnoses Not on filedocumented in this encounter Additional Health Concerns Infection Onset Date Last Indicated Resolved Time 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 per 09/01/16 pearler note; left foot tissue 10/08/16 09/01/2016 09/01/2016 10/11/2018 7:49 AM C DT 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 per 09/01/16 pearler note; left foot tissue 10/08/16 10/11/2018 02/27/2019 Assessment Noted Time PHQ-9 Depression Total Score: 0 07/29/19 18 2:19 PM CDT documented as of this encounter Care Teams Final Inspector Movement Assembly Relationship Specialty Start Date End Date Madhuri Whitman APRN COOK FRY PCP - General Nurse Practitioner - Family 09/04/16 08/23/20 Madhuri Whitman APRN COOK FRY [address] [place] [address] PCP - Assigned PCP 09/03/16 05/21/18 [place] [address] [place] [address] PCP - General Family Medicine 08/24/20 01/23/22 No Ref-Primary, Physician PCP - General 02/20/22 06/29/22 [place] [address] [place] [address] PCP - General Family Medicine 06/30/22 [place] [address] [facility] [address] [place] [address] Podiatry 10/18/16 Madhuri Whitman APRN COOK FRY [address] [address] Assigned PCP 09/03/16 09/27/19 Rosey Alexander, FOREST FIRE MANAGEMENT OFFICER Clinic Lead Quality Technician Primary Care - CC 09/27/18 9 Rosey Alexander, FOREST FIRE MANAGEMENT OFFICER Lead Lead Quality Technician Primary Care - CC 11/08/18 05/07/19 Craig Montenegro PA-C [address] [place] [address] Assigned PCP 09/28/19 01/31/20 Altagracia Alexander DPM, Podiatry/Foot and Ankle Surgery [address] [place] [address] Assigned Musculoskeletal Provider 01/09/20 10/30/20 [place] [address] [place] [address] Assigned PCP 02/01/20 08/28/20 Cy Leonardo Personal Advocate & Liaison (PAL) 08/26/20 10/13/20 [place] [address] [place] [address] Assigned PCP 08/29/20 10/08/23 Rebecca Palumbo MD [address] [place] [address] [address] [place], [place] 853285 Assigned Neuroscience Provider 10/01/20 10/14/21 Anders Ramachandran Personal Advocate & Liaison (PAL) 10/14/20 07/07/21 Magdalena Brice Personal Advocate & Liaison (PAL) 11/14/21 12/27/21 Maddie Mae Personal Advocate & Liaison (PAL) Family Medicine 12/28/21 Aydee Mcgill RN ROQUE Clinical Product Navigator Primary Care - CC 06/30/22 06/30/22 Wendy Agustin APRN COOK FRY [address] [place], [place] [address] Assigned PCP 10/09/23 documented as of this encounter
--- OUTSIDE RECORDS SUMMARY | 2023-12-12 00:45 | XMS_ITS | Encounter Summary ---
Author Organization [facility] Address [address] [place] [address] Care Team Providers Care Quality Assurance Intern Name Role Phone Madhuri Whitman BUTTON SEWING MACHINE OPERATOR TEACHING MANAGER Primary Care Prov ider Edu Crawford DPM Unavailable [phone] Madhuri Whitman APRN TEACHING MANAGER Unavailable + Madhuri Whitman APRN TEACHING MANAGER Unavailable + Rosey Alexander EMERGENCY MANAGEMENT CONSULTANT Unavailable [phone] Rosey Alexander EMERGENCY MANAGEMENT CONSULTANT Unavailable [phone] Craig Montenegro PA-C Unavailable [phone] Altagracia Alexander DPM, Podiatry /Foot and Ankle Surgery Unavailable Enrico Felton DO Unavailable Enrico Felton DO Primary Care Provider [phone] Cy Leonardo Unavailable Unavailable Enrico Felton DO Unavailable [phone] Rebecca Palumbo MD Unavailable [phone] Anders Ramachandran Unavailable Unavailable Magdalena Brice Unavailable Unavailable Maddie Mae Unavailable Unavailable No Ref-Primary, Physician Primary Care Provider Enrico Felton DO Primary Care Provider [phone] Aydee Mcgill RN Unavailable [phone] HedyWendy alamo BUTTON SEWING MACHINE OPERATOR TEACHING MANAGER Unavailable [phone] Reason for Visit * Reason Onset Date Comments Medication Refill 03/04/2018 PARoxetine and omeprazole Encounter Details Date Type Department Care Team (Late st Contact Info) Description 03/02/[address], [address] [place] [address] Madhuri Whitman, WANDY TEACHING MANAGER [address] [place], [place] [id number] Medication Refill (PARoxetine and omeprazole ) Social [...] via phone, sent letter. Alexandrea Lacy MA TECHNICIAN * Telephone Encounter - Carol Dickerson RN - 03/05/2018 2:49 PM CST Please call pt to schedule a med check with labs Medication is being filled for 1 time refill only due to: Patient needs to be seen because needs OV. Carol Dickerson RN, BSN TECHNICIAN * Telephone Encounter - Laureen Baumann - [...] No positive test in past 12 months TECHNICIAN documented in this encounter Plan of Treatment Upcoming Encounters Date Type Department Care Team (Late st Contact Info) Description 12/21/2023 2:00 PM CDT Appointment [facility] [place] [address] [place] [address] Kingsley Westbrook DPM [address] [facility] [place], [place] [address] documented as of this encounter Visit Diagnoses Diagnosis Episode of recurrent major depressive disorder, unspecified depression episode severity (H24) Gastroesophageal reflux disease, esophagitis presence not specified documented in this encounter Additional Health Concerns Infection Onset Date Last Indicated Resolved Time 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 per 09/01/16 manager integrity note; left foot tissue 10/08/16 09/01/2016 09/01/2016 10/11/2018 7:49 AM C DT 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 per 09/01/16 manager integrity note; left foot tissue 10/08/16 10/11/2018 02/27/2019 Assessment Noted Time PHQ-9 Depression Total Score: 0 07/29/19 18 2:19 PM CDT documented as of this encounter Care Teams Quality Assurance Intern Relationship Specialty Start Date End Date Madhuri Whitman APRN TEACHING MANAGER PCP - General Nurse Practitioner - Family 09/04/16 08/23/20 Madhuri Whitman APRN TEACHING MANAGER [address] [place] [address] PCP - Assigned PCP 09/03/16 05/21/18 [place] [address] [address] [place], [place] [address] PCP - General Family Medicine 08/24/20 01/23/22 No Ref-Primary, Physician PCP - General 02/20/22 06/29/22 [place] [address] [place], [place] 6[address] PCP - General Family Medicine 06/30/22 Edu Crawford DPM [address] [facility] [address] [place], [place] [id number] Podiatry 10/18/16 Madhuri Whitman APRN TEACHING MANAGER [address] [place] 7193468 Assigned PCP 09/03/16 09/27/19 Rosey Alexander, EMERGENCY MANAGEMENT CONSULTANT Clinic Analytic Programmer Primary Care - CC 09/27/18 9 Rosey Alexander, EMERGENCY MANAGEMENT CONSULTANT Lead Analytic Programmer Primary Care - CC 11/08/18 05/07/19 Craig Montenegro PA-C [address] [place] [id number] Assigned PCP 09/28/19 01/31/20 Altagracia Alexander DPM, Podiatry/Foot and Ankle Surgery [address] [place], [place] [address] Assigned Musculoskeletal Provider 01/09/20 10/30/20 [place] [address] [place] [address] Assigned PCP 02/01/20 08/28/20 Cy Leonardo Personal Advocate & Liaison (PAL) 08/26/20 10/13/20 [place] [address] [place] [address] Assigned PCP 08/29/20 10/08/23 Rebecca Palumbo MD [address] [place] [address] [address] [place], [place] [address] Assigned Neuroscience Provider 10/01/20 10/14/21 Anders Ramachandran Personal Advocate & Liaison (PAL) 10/14/20 07/07/21 Magdalena Brice Personal Advocate & Liaison (PAL) 11/14/21 12/27/21 Maddie Mae Personal Advocate & Liaison (PAL) Family Medicine 12/28/21 Aydee Mcgill RN RN Clinical Product Navigator Primary Care - CC 06/30/22 06/30/22 Wendy Agustin APRN TEACHING MANAGER [address] [place] [address] Assigned PCP 10/09/23 documented as of this encounter
--- OUTSIDE RECORDS SUMMARY | 2023-12-12 00:45 | XMS_ITS | Encounter Summary ---
Author Organization [facility] Address [address] [place] [address] Care Team Providers Care Procedure Rn Name Role Phone Madhuri Whitman HANGER MICROCOMPUTER TECHNICIAN Primary Care Prov ider Edu Crawford DPM Unavailable [phone] Madhuri Whitman APRN MICROCOMPUTER TECHNICIAN Unavailable + Rosey Alexander ELECTRIC METER TECHNICIAN Unavailable Rosey Alexander ELECTRIC METER TECHNICIAN Unavailable [phone] Craig Montenegro PA-C Unavailable [phone] Altagracia Alexander DPM, Podiatry /Foot and Ankle Surgery Unavailable Enrico Felton DO Unavailable [phone] Enrico Felton DO Primary Care Provider [phone] Cy Leonardo Unavailable Unavailable Enrico Felton DO Unavailable Rebecca Palumbo MD Unavailable [phone] Anders Ramachandran Unavailable Unavailable Magdalena Brice Unavailable Unavailable Maddie Mae Unavailable Unavailable No Ref-Primary, Physician Primary Care Provider Enrico Felton DO Primary Care Provider [phone] Aydee Mcgill RN Unavailable [phone] Wendy Agustin HANGER MICROCOMPUTER TECHNICIAN Unavailable Encounter Details Date Type Department Care Team (Late st Contact Info) Description 06/14/2018 MyC Medical Advice [facility] [address] [facility] [place] [phone] Melissa Flores, DRAWER IN Social History Tobacco Use Types Packs/Day Years [...] 2:00 PM CDT Appointment [facility] Wound [address] [place] [phone] Kingsley Westbrook, GAYLA [address] [place] [address] documented as of this encounter Visit Diagnoses Not on filedocumented in this encounter Additional Health Concerns Infection Onset Date Last Indicated Resolved Time 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 per 09/01/16 tissue rewinder note; left foot tissue 10/08/16 09/01/2016 09/01/2016 10/11/2018 7:49 AM C DT 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 per 09/01/16 tissue rewinder note; left foot tissue 10/08/16 10/11/2018 02/27/2019 Assessment Noted Time PHQ-9 Depression Total Score: 0 07/29/19 18 2:19 PM CDT documented as of this encounter Care Teams Procedure Rn Relationship Specialty Start Date End Date Madhuri Whitman APRN MICROCOMPUTER TECHNICIAN PCP - General Nurse Practitioner - Family 09/04/16 08/23/20 [place] [address] [place] [address] PCP - General Family Medicine 08/24/20 01/23/22 No Ref-Primary, Physician PCP - General 02/20/22 06/29/22 [place] [address] [place] [address] PCP - General Family Medicine 06/30/22 [place] [address] [facility] [address] [place] [address] Podiatry 10/18/16 Madhuri Whitman APRN MICROCOMPUTER TECHNICIAN [address] [place] [address] Assigned PCP 09/03/16 09/27/19 Rosey Alexander, [facility] Clinic Director Immunology Primary Care - CC 09/27/18 9 Rosey Alexander, [facility] Lead Director Immunology Primary Care - CC 11/08/18 05/07/19 Craig Montenegro PA-C [address] [place] [address] Assigned PCP 09/28/19 01/31/20 Altagracia Alexander DPM, Podiatry/Foot and Ankle Surgery [address] [facility] [address] [place] [address] Assigned Musculoskeletal Provider 01/09/20 10/30/20 [place] [address] [place] [address] Assigned PCP 02/01/20 08/28/20 Cy Leonardo Personal Advocate & Liaison (PAL) 08/26/20 10/13/20 [place] [address] [place] [address] Assigned PCP 08/29/20 10/08/23 Rebecca Palumbo MD [address] [place] [address] 297 [place], [place] [address] Assigned Neuroscience Provider 10/01/20 10/14/21 Anders Ramachandran Personal Advocate & Liaison (PAL) 10/14/20 07/07/21 Magdalena Brice Personal Advocate & Liaison (PAL) 11/14/21 12/27/21 Maddie Mae Personal Advocate & Liaison (PAL) Family Medicine 12/28/21 Aydee Mcgill RN ROQUE Clinical Product Navigator Primary Care - CC 06/30/22 06/30/22 Wendy Agustin APRN MICROCOMPUTER TECHNICIAN [address] [facility] [address] [place], [place] [address] Assigned PCP 10/09/23 documented as of this encounter
--- OUTSIDE RECORDS SUMMARY | 2023-12-12 00:45 | XMS_ITS | Encounter Summary ---
Author Organization [facility] Address [address] [place] [address] Care Team Providers Care President/Gm Production & Live Experiences Name Role Phone Madhuri Whitman HAIRSPRING TRUING INSPECTOR HIGH DENSITY FINISHING OPERATOR Primary Care Prov ider Kaylen Aiken RN Unavailable [phone] Edu CrawfordM Unavailable [phone] Madhuri Whitman APRN HIGH DENSITY FINISHING OPERATOR Unavailable + Madhuri Whitman APRN HIGH DENSITY FINISHING OPERATOR Unavailable + Rosey Alexander EDI PROGRAMMER Unavailable Rosey Alexander EDI PROGRAMMER Unavailable [phone] Craig Montenegro PA-C Unavailable [phone] Altagracia Alexander DPM, Podiatry /Foot and Ankle Surgery Unavailable Enrico Felton DO Unavailable [phone] Enrico Felton DO Primary Care Provider [phone] Cy Leonardo Unavailable Unavailable Enrico Felton DO Unavailable [phone] Rebecca Palumbo MD Unavailable [phone] Anders Ramachandran Unavailable Unavailable Magdalena Brice Unavailable Unavailable Maddie Mae Unavailable Unavailable No Ref-Primary, Physician Primary Care Provider Enrico Felton DO Primary Care Provider Aydee Mcgill RN Unavailable [phone] Wendy Agustin APRN HIGH DENSITY FINISHING OPERATOR Unavailable [phone] Encounter Details Date Type Department Care Team (Late st Contact Info) Description 09/21/2016 MyC Medical Advice [address], [address] [place] [address] Malou Vallejo Social History Tobacco [...] Appointment [facility] [address] [place] [address] Kingsley Westbrook, GAYLA [address] [place] [address] documented as of this encounter Visit Diagnoses Not on filedocumented in this encounter Additional Health Concerns Infection Onset Date Last Indicated Resolved Time 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 per 09/01/16 pigment processor note; left foot tissue 10/08/16 09/01/2016 09/01/2016 10/11/2018 7:49 AM C DT 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 per 09/01/16 pigment processor note; left foot tissue 10/08/16 10/11/2018 02/27/2019 documented as of this encounter Care Teams President/Gm Production & Live Experiences Relationship Specialty Start Date End Date Madhuri Whitman APRN HIGH DENSITY FINISHING OPERATOR PCP - General Nurse Practitioner - Family 09/04/16 08/23/20 Madhuri Whitman APRN HIGH DENSITY FINISHING OPERATOR [address] [place] [address] PCP - Assigned PCP 09/03/16 05/21/18 [place] [address] [place] [address] PCP - General Family Medicine 08/24/20 01/23/22 No Ref-Primary, Physician PCP - General 02/20/22 06/29/22 [place] [address] [place] [address] PCP - General Family Medicine 06/30/22 Kaylen Aiken, ROQUE Clinic Process Equipment Operator 10/18/16 Edu Crawford DPM [address] [facility] [address] [place], [place] [address] Podiatry 10/18/16 Madhuri Whitman APRN HIGH DENSITY FINISHING OPERATOR [address] [address] Assigned PCP 09/03/16 09/27/19 Rosey Alexander LSW Clinic Process Equipment Operator Primary Care - CC 09/27/18 9 Rosey Alexander LSW Lead Process Equipment Operator Primary Care - CC 11/08/18 05/07/19 Craig Montenegro PA-C [address] [address] [address] Assigned PCP 09/28/19 01/31/20 Altagracia Alexander, DPM, Podiatry/Foot and Ankle Surgery [address] [place] [address] Assigned Musculoskeletal Provider 01/09/20 10/30/20 [place] [address] [place] [address] Assigned PCP 02/01/20 08/28/20 Cy Leonardo Personal Advocate & Liaison (PAL) 08/26/20 10/13/20 [place] [address] [place] [address] Assigned PCP 08/29/20 10/08/23 Rebecca Palumbo MD [address] [place] [address] 297 [place], [place] [address] Assigned Neuroscience Provider 10/01/20 10/14/21 Anders Ramachandran Personal Advocate & Liaison (PAL) 10/14/20 07/07/21 Magdalena Brice Personal Advocate & Liaison (PAL) 11/14/21 12/27/21 Maddie Mae Personal Advocate & Liaison (PAL) Family Medicine 12/28/21 Aydee Mcgill, RN RN Clinical Product Navigator Primary Care - CC 06/30/22 06/30/22 Wendy Agustin APRN HIGH DENSITY FINISHING OPERATOR [address] [facility] [address] [place] [address] Assigned PCP 10/09/23 [place] [phone] (Work) [facility] 10/18/16 06/24/17 [facility] 07/27/17 08/14/17 documented as of this encounter
--- OUTSIDE RECORDS SUMMARY | 2023-12-12 00:45 | XMS_ITS | Encounter Summary ---
Author Organization [facility] Address [address] [place] [address] Care Team Providers Care Dredging Inspector Name Role Phone Dwayne Draper MD Primary Care Provider + DoctorHawa MD Primary Care Provider Unavailabl e Madhuri Whitman SUBWAY TRAIN DRIVER VALVE AND REGULATOR REPAIRER Primary Care Prov ider Kaylen Aiken RN Unavailable [phone] Edu Crawford DPM Unavailable [phone] Madhuri Whitman SUBWAY TRAIN DRIVER VALVE AND REGULATOR REPAIRER Unavailable + Madhuri Whitman SUBWAY TRAIN DRIVER VALVE AND REGULATOR REPAIRER Unavailable + Rosey Alexander CHIEF ACCOUNTING OFFICER Unavailable [phone] Rosey Alexander CHIEF ACCOUNTING OFFICER Unavailable [phone] Craig Montenegro PA-C Unavailable [phone] Altagracia Alexander DPM, Podiatry /Foot and Ankle Surgery Unavailable Enrico Felton DO Unavailable [phone] Enrico Felton DO Primary Care Provider [phone] Cy Leonardo Unavailable Unavailable Enrico Felton DO Unavailable [phone] Rebecca Palumbo MD Unavailable [phone] Anders Ramachandran Unavailable Unavailable Magdalena Brice Unavailable Unavailable Maddie Mae Unavailable Unavailable No Ref-Primary, Physician Primary Care Provider Enrico Felton DO Primary Care Provider [phone] Aydee Mcgill RN Unavailable [phone] Wendy Agustin SUBWAY TRAIN DRIVER VALVE AND REGULATOR REPAIRER Unavailable [phone] Reason for Visit * Reason Onset Date Comments Refill Request 02/03/2013 Encounter Details Date Type Department Care Team (Late st Contact Info) Description 02/03/2013 MyC Refill M [address], [address] [place] [address] [place] [address] [place] [address] Refill Request Social History Tobacco [...] PM CSTMessage from Nella: Original authorizing provider: MD Viviana Ramefrain Palencia would like a refill of the following medications: oxyCODONE (ROXICODONE) 10 MG immediate release tablet [Dwayne Draper MD] methadone (DOLOPHINE) 10 MG tablet [Dwayne Draper MD] Preferred pharmacy: [id number] [address] Comment: because of the holidays I was wondering if you could send my prescription for my pain to [facility] in [place] they are due on the Jan. I [...] so we can figure out what todo LITIES ENGINEERING MANAGER documented in this encounter Plan of Treatment Upcoming Encounters Date Type Department Care Team (Late st Contact Info) Description 12/21/2023 2:[address] 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 Spinal stenosis, unspecified region other than cervical documented in this encounter Additional Health Concerns Infection Onset Date Last Indicated Resolved Time 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 per 09/01/16 president and cmo note; left foot tissue 10/08/16 09/01/2016 09/01/2016 10/11/2018 7:49 AM C DT 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 per 09/01/16 president and cmo note; left foot tissue 10/08/16 10/11/2018 02/27/2019 documented as of this encounter Care Teams Dredging Inspector Relationship Specialty Start Date End Date Dwayne Draper MD PCP - General Family Practice 07/11/11 05/28/14 Hawa Wasserman MD PCP - General 06/29/15 09/03/16 Madhuri Whitman APRN VALVE AND REGULATOR REPAIRER PCP - General Nurse Practitioner - Family 09/04/16 08/23/20 Madhuri Whitman APRN VALVE AND REGULATOR REPAIRER [address] [place] [address] PCP - Assigned PCP 09/03/16 05/21/18 [place] [address] [place] [address] PCP - General Family Medicine 08/24/20 01/23/22 No Ref-Primary, Physician PCP - General 02/20/22 06/29/22 [place] [address] [place] [address] PCP - General Family Medicine 06/30/22 Kaylen Aiken, [facility] Clinic Hat Finisher 10/18/16 Edu Crawford DPM [address] [facility] [address] [place] [address] Podiatry 10/18/16 Madhuri Whitman APRN CNP [address] [place] [address] Assigned PCP 09/03/16 09/27/19 Rosey Alexander, [facility] Clinic Hat Finisher Primary Care - CC 09/27/18 9 Rosey Alexander, [facility] Lead Hat Finisher Primary Care - CC 11/08/18 05/07/19 Craig Montenegro PA-C [address] [place] [address] Assigned PCP 09/28/19 01/31/20 Altagracia Alexander DPM, Podiatry/Foot and Ankle Surgery [address] [place] [address] Assigned Musculoskeletal Provider 01/09/20 10/30/20 [place] [address] [place] [address] Assigned PCP 02/01/20 08/28/20 Cy Leonardo Personal Advocate & Liaison (PAL) 08/26/20 10/13/20 [place] [address] [place] [address] Assigned PCP 08/29/20 10/08/23 Rebecca Palumbo MD [address] [place] [address] [address] [place], [place] [id number] Assigned Neuroscience Provider 10/01/20 10/14/21 Anders Ramachandran Personal Advocate & Liaison (PAL) 10/14/20 07/07/21 Magdalena Brice Personal Advocate & Liaison (PAL) 11/14/21 12/27/21 Maddie Mae Personal Advocate & Liaison (PAL) Family Medicine 12/28/21 Aydee Mcgill RN [facility] Clinical Product Navigator Primary Care - CC 06/30/22 06/30/22 Wendy Agustin APRN VALVE AND REGULATOR REPAIRER [address] [facility] [address] [place], [place] [address] Assigned PCP 10/09/23 [facility] 10/18/16 06/24/17 [facility] 07/27/17 08/14/17 documented as of this encounter
--- OUTSIDE RECORDS SUMMARY | 2023-12-12 00:46 | XMS_ITS | Clinical Summary ---
Author Organization [facility] Address [place], [place] [address] Care Team Providers Care Customer Support Agent Name Role Phone Enrico Felton DO Primary Care Provider [phone] Allergies Active Allergy Reactions Criticality Noted Date [...] Take 5 mg by mouth once daily. 12/09/2021 Active lisinopriL (PRINIVIL; ZESTRIL) 20 mg tablet Take 20 mg by mouth once daily. 12/09/2021 Active pantoprazole (PROTONIX) 40 mg delayed-release tablet Take 40 mg by mouth once daily. 10/25/2021 Active PARoxetine (PAXIL) 30 mg tablet Take 60 mg by mouth once daily. 12/09/2021 Active rosuvastatin (CRESTOR) 5 mg tablet Take 5 mg by mouth at bedtime. 12/09/2021 Active pregabalin (LYRICA) 150 mg capsule Take 150 mg by mouth two times daily. 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 1 Each 01/03/2022 Active buprenorphine-naloxo ne (Suboxone) 4-[address] 1 Film under the tongue two times daily. Place film under the tongue until completely dissolved. Do not chew or swallow film. Active nicotine 14 mg/24 hr (NICODERM; HABITROL) 14 mg/24 hr patchIndications:Tob acco abuse [The details of the medication are not available because there are pending changes by a home health clinician.] 30 Patch 06/18/2022 Active Additional Information Patient not taking.Reason: [...] depressive disorder, recurrent episode, un specified 09/07/2006 Overview (04/19/2007): Chronic Narcotic Use Due for updated contact [...] Name Comments Diabetes Daughter Heart Disease Father [place] @ age 58 Hypertension Father Cancer-breast Mother Diabetes Mother Stroke Mother mini Cancer-breast Sister Relation Name Status Comments Daughter Father Mother Sister Social History Tobacco Use Types Packs/Day Years Used Date Smoking Tobacco: Every Day Cigarettes 1 30.7 Started: 03/19/1993 Smokeless Tobacco: Never Tobacco Cessation:Ready [...] Outcome GA Total Labor Labor/2nd/3rd Weight Sex Type Anes PTL Nohemy A1 A5 Name Clin Para Last Filed Vital Signs Vital Sign [...] age 18+ 1980 Hepatitis C screening for age 18-79 1980 Colonoscopy through age 75 12/17/2007 Pap test for age 21-65 01/29/2011 01/30/2008 Mammogram for age 45-75 03/07/2012 03/07/2011 Lipids for age 45-75 03/07/2016 03/07/2011, 04/12/2009, 01/13/2008 COVID-19 vaccine series ( season) 2023 10/12/2021, 09/20/2020, 08/23/2020 Influenza for age 50-64 11/18/2023 12/30/19 22, 02/17/2019, 02/21/2017, Additional history exists Tetanus booster 02/21/2032 02/20/2022, 06/2011, 01/15/2002, Additional history exists Pneumococcal series for age 6-64 Aged Out 02/20/2022, 04/22/2009 No longer eligibl e based on patient's age to complete this topic Tdap Completed 02/20/2022, 12/21/2011 Zoster (shingles) series for age 50+ Completed 02/20/2022, 08/23/2020 Medical Devices Implanted Type Area Stone Driller Device Identifier Shelf Expiration Date Model / Serial / Lot Screw 6.5x35 Tsrh-3d Shrt Post - [id number] Implanted:Qty: 3 on 04/20/2009 at [facility] Spine Implants N/A: Spine [employer]ANEK [id number]# / / Screw 6.5x40 Tsrh-3d Shrt Post - [id number] Implanted:Qty: 2 on 04/20/2009 at [facility] Spine Implants N/A: Spine SOF[employer]OR [employer]ANEK [id number]# / / Christopher 6.0cmx5.5mm Pre-Cut - [id number] Implanted:Qty: 1 on 04/20/2009 at [facility] Spine Implants N/A: Lumbar Vertebrae SOF[employer]OR [employer]ANEK [id number]# / / Christopher 7.0cmx5.5mm Pre-Cut - [id number] Implanted:Qty: 1 on 04/20/2009 at [facility] Spine Implants N/A: Lumbar Vertebrae SO[employer]ANEK [id number]# / / Putty Bone Dbx 1cc [id number] - [id number] Implanted:Qty: 1 on 05/01/2005 at [facility] Explanted:at [facility] (Quantity not on file) Spine Musculoskeletal Transplant 01/18/2007 [id number]# / [id number] / Block Aric [id number] - [id number] Implanted:Qty: 1 on 05/01/2005 at [facility] Explanted:at [facility] (Quantity not on file) Spine Medtronic 08/18/[id number]# / [id number] / [id number] Description:EXP 08/18/06 Block Aric [id number] - [id number] Implanted:Qty: 1 on 05/01/2005 at [facility] Explanted:at [facility] (Quantity not on file) Spine Medtronic 05/11/[id number]# / [id number] / [id number] Description:EXP 05/11/06 Screw Canclls 4.0x14mm Self-Tapping - [id number] Implanted:Qty: 4 on 05/01/2005 at [facility] Cervical Vertebrae SOFAMOR DANEK [id number]# / / Implant On The Fly - [id number] Implanted:Qty: 1 on 05/01/2005 at [facility] Cervical Vertebrae [id number] / / Description:40MM ANTERIOR CE RVICAL PLATE Plate Pyramid 4h 37mm - [id number] Implanted:Qty: 1 on 04/20/2009 at [facility] N/A: Spine SOF[employer]OR [employer]ANEK [id number]# / / Screw Lock Flush Break Ti - [id number] Implanted:Qty: 5 on 04/20/2009 at [facility] N/A: Spine SOF[employer]OR [employer]ANEK [id number]# / / Kit Infuse Bone Graft [id number] - [id number] Implanted:Qty: 1 on 04/20/2009 at [facility] Spine Medtronic 10/17/2010 [id number]# / / [id number] D Putty Mastergraft 10cc - [id number] Implanted:Qty: 1 on 04/20/2009 at [facility] Spine Medtronic 11/16/2012 [id number]# / / [id number] Vessel Guard Preclude 5x6cm - [id number] Implanted:Qty: 1 on 04/20/2009 at [facility] Spine [employer] [id number]# / / [id number] 20x4mm Screw Implanted:Qty: 4 on 04/20/2009 at [facility] Spine [employer] 04.802.21 1 / / Description:20X4MM SCREW Connector Small 5.5 Implanted:Qty: 5 on 04/20/2009 at [facility] Spine Medtronic [id number] / / Description:CONNECTOR SMALL 5.5 [id number] Implanted:Qty: 1 on 04/20/2009 at [facility] Explanted:at [facility] (Quantity not on file) Spine Allosource 03/30/2013 [id number] / [id number] / Description:OSTEOCEL 5CC [id number] 4-407bone Prec 14x26 [[id number]] Implanted:Qty: 1 on 04/20/2009 at [facility] Explanted:at [facility] (Quantity not on file) Spine [employer] 12/19/2011 [id number]# / [id number] 4-407 / Implant Spine [id number] 12 Deg Spacer/Plate - [id number] Implanted:Qty: 1 on 04/20/2009 at [facility] N/A: Spine [employer] 08.802.01 3S# / / Screw Arlin 6.5x30mm - [id number] Implanted:Qty: 4 on 04/20/2009 at [facility] N/A: Spine ANNE OLEARY [id number]# / / Procedures Procedure Name Priority Date/Time Associated Diagnosis Comments XR MAMMO BILAT SCREEN FFDM (IA) Routine 03/07/2011 4:12 PM FRONT END TECHNICIAN Other screening mammogram LIPID PANEL Routine 03/07/2011 7:40 AM FRONT END TECHNICIAN Essential hypertension, benign DRILL RUNNER HELPER THIN PREP PAP SCREEN IMAGED Routine 01/30/2008 4:13 PM FRONT END TECHNICIAN Routine Gynecological Examination from Last 3 Months or Most Recently Relevant to Health Maintenance Results * XR MAMMO BILAT SCREEN FFDM (03/07/2011 4:12 PM FRONT END TECHNICIAN) Anatomical Region Laterality Modality BREASTS, Breast Left, Breast Right Bilateral Mammography Impressions 03/08/2011 12:05 PM FRONT END TECHNICIAN ??There is no radiographic evidence for malignancy. ??Recommend annual mammograms. A lay language report of this examination will be provided to the patient. MAMMOGRAM ASSESSMENT: ??ACR 2 Benign Narrative 03/08/2011 12:05 PM FRONT END TECHNICIAN XR MAMMO BILAT SCREEN FFDM [G0202.0] CLINICAL HISTORY: ??This is an asymptomatic 50 y.o. patient. INDICATION FOR EXAM: Mammogram Screening. TECHNIQUE: CC & MLO views were obtained. ??This digital study was evaluated with the assistance of Computer-Aided Detection. ?? COMPARISON FILMS: Yes 08/19/01 [facility] FINDINGS: ??Mammographically, the breast tissue has scattered fibroglandular densities (approximately 25% - 50% glandular). ??No suspicious masses or microcalcifications. ??Benign appearing calcifications within left breast and Benign appearing asymmetry within left breast. Procedure Note Kevin Brito DO - 03/08/2011 XR MAMMO BILAT SCREEN FFDM [G0202.0] CLINICAL HISTORY: This is an asymptomatic 50 y.o. patient. INDICATION FOR EXAM: Mammogram Screening. TECHNIQUE: CC & MLO views were obtained. This digital study was evaluatedwith the assistance of Computer-Aided Detection. COMPARISON FILMS: Yes 08/19/01 [facility] FINDINGS: Mammographically, the breast tissue has scatteredfibroglandular densities (approximately 25% - 50% glandular). Nosuspicious masses or microcalcifications. Benign appearing calcificationswithin left breast and Benign appearing asymmetry within left breast. IMPRESSION: There is no radiographic evidence for malignancy. Recommendannual mammograms. A lay language report of this examination will be provided to the patient. MAMMOGRAM ASSESSMENT: ACR 2 Benign Cooper Maria MD MAMMO * (ABNORMAL) LIPID PANEL (03/07/2011 7:40 AM FRONT END TECHNICIAN) CHOLESTEROL,TOTAL 271(H) 110 - 199 mg/dL [facility] TRIGLYCERIDES 498(H) <150 mg/dL [facility] HDL CHOLESTEROL 37(L) >40 mg/dL [facility] CHOL/HDL RATIO 7.32(H) <4.51 [facility] LDL CHOLESTEROL Invalid LDL when Trig >400. [facility] PATIENT STATUS Fasting [facility] Blood specimen (specimen) BLOOD SPECIMEN / Unknown 03/07/2011 7:40 AM FRONT END TECHNICIAN 03/07/2011 7:30 AM FRONT END TECHNICIAN Cooper Maria MD CHEMISTRY [facility] [address] [place] [address] * pap screening (01/30/2008 4:13 PM FRONT END TECHNICIAN) CYTOLOGY ??CYTOPATHOLOGY REPORT ??[facility] ?? Status: Final Report ? [id number] ?? CLINICAL INFORMATION ?Date of Last LMP ?: 01/14/08 ?Last Pap Date ? : 5 years ago ?Last Pap Result ? : NIL ?ABN [place]/Bx Past 5 YRS: None ?Hormone Usage ? : BCP/OCP/Patch/Ring ?Menstrual Status ?: Irregular Periods ?[place]/Bx done today ?: No ?Additional Data ? : None given ?? HPV Request ?: HPV if ASCUS ?? SPECIMEN SOURCE ?: Cervical/vaginal ThinPrep Vial, screening ?? SPECIMEN ADEQUACY ?: Satisfactory for evaluation Endocervical ?component present. ? INTERPRETATION/RES ULT: ?Negative for intraepithelial lesion or malignancy (NIL) ?Organisms ?Shift in nico suggestive of bacterial vaginosis ? Cytology 1st Screener : ??kek ?? Signed by: ? kek ?? This specimen was screened by the FDA approved ThinPrep Imaging ?? System and manually reviewed. ?? NOTE: The Pap test is a screening technique, not a diagnostic ?? procedure. It is used primarily to screen for squamous cancers and ?? precursor lesions. Published studies have shown that it is subject to ?? both false negative and false positive results. The pap test should ?? not be used as the sole means to diagnose or exclude pre-malignant and ?? malignant lesions. ?? COLLECTED: 01/30/08 ?? ACCESSIONED: 01/30/08 ?? SIGNED: 02/08/08 [facility] PAP [place] CODE NIL [facility] Cervical (Cervical) 01/30/2008 4:13 PM FRONT END TECHNICIAN 01/30/2008 4:09 PM FRONT END TECHNICIAN Susanna Camp DO PATHOLOGY/CYTOLOGY [facility] INTERNAL ZIP [address] [address] from Last 3 Months or Most Recently Relevant to Health Maintenance Additional Health Concerns Infection Onset Date Last Indicated MRSA Clearance Comment:Infection Control Note: Hx of MRSA, surveillance criteria met, no need for further testing or isolation precautions. Do not delete or resolve the infection flag. 11/26/13 toe 12/28/2021 12/28/2021 Advance Directives * Full Code (Latest Code Status on File) Date Activated Date Inactivated Comments 06/13/2022 7:10 AM 06/18/2022 6:53 PM Question Answer Comments Code Status Discussion: Reviewed Preferences * Full Code Date Activated Date Inactivated Comments 06/12/2022 4:53 PM 06/13/2022 7:10 AM Question Answer Comments Code Status Discussion: Unable to Assess Preferences, Provider to review later * Full Code Date Activated Date Inactivated Comments 12/28/2021 4:58 AM 01/03/2022 6:41 PM Question Answer Comments Code Status Discussion: Reviewed Preferences * Full Code Date Activated Date Inactivated Comments 11/26/2013 5:33 PM 11/28/2013 4:17 PM * Full Code Date Activated Date Inactivated Comments 04/20/2009 7:53 AM 04/20/2009 4:37 PM Care Teams Customer Support Agent Relationship Specialty Start [place] [address] [place] [address] PCP - General Family Practice 01/02/22
[2023-12-12 00:59] LABS: Albumin* 4.5 g/dL (3.3-5.0)
[2023-12-12 01:00] LABS: Chloride* 107 mmol/L (96-114); Potassium* 4.1 mmol/L (3.6-5.1); Sodium* 140 mmol/L (135-149)
[2023-12-12 01:02] LABS: Alanine Aminotransferase* 17 U/L (4-35); Alkaline Phosphatase* 117 U/L (40-150); Anion Gap 12 mEq/L (7-15); Aspartate Amino Transferase* 26 U/L (12-35); Bilirubin Total* 0.8 mg/dL (0.1-1.5); Blood Urea Nitrogen* 23 mg/dL (7-30); Carbon Dioxide* 21 mmol/L (20-32); Estimated Glomerular Filt Rate 64 ml/min; Total Protein* 8.4 g/dL (6.0-8.3)
[2023-12-12 01:03] LABS: Calcium* 9.8 mg/dL (8.4-10.6); Glucose* 129 mg/dL (60-115); Lipase* 26 U/L (23-300)
[2023-12-12 01:07] LABS: Acetaminophen* < 10.0 ug/mL (10.0-30.0); Ethanol* < 0.01 % (0.01-0.03); Salicylate* < 1.0 mg/dL (1.0-10)
[2023-12-12 01:15] LABS: Troponin I* 0.02 ng/mL (0.01-0.04)
[2023-12-12] MEDS: 0.9 % SODIUM CHLORIDE 500 ML 500 ML IV (01:22)
[2023-12-12 01:32] LABS: Procalcitonin* < 0.03 ng/mL (<0.50)
[2023-12-12] MEDS: LABETALOL HCL 5 MG/ML inj IVP (01:35)
[2023-12-12 01:38] LABS: Appearance Urine Clear (Clear); Bilirubin Urine 1+ (Negative); Blood Urine 2+ (Negative); Color Urine Yellow (Yellow); Glucose Urine Negative (Negative); Ketones Urine 3+ (Negative); Leukocyte Esterase Urine Negative (Negative); Nitrite Urine Negative (Negative); Protein Urine 3+ (Negative); Specific Gravity Urine >= 1.030 (1.000-1.030); Urobilinogen Urine 0.2 (0.2-1.0)
[2023-12-12 01:45] LABS: Amorphous Sediment Urine Few; Bacteria Urine Moderate; RBC Urine 0-2 (0-2); Squamous Epithelial Cell Urine Moderate (None-Few)
[2023-12-12 01:46] LABS: Amphetamine Screen Urine Negative (Negative); Barbiturate Screen Urine Negative (Negative); Benzodiazepines Screen Urine Negative (Negative); Cannabinoid Screen Urine POSITIVE (Negative); Cocaine Screen Urine Negative (Negative); Methadone Screen Urine Negative (Negative); Methamphetamines Screen Urine POSITIVE (Negative); Opiate Screen Urine Negative (Negative); Oxycodone Screen Urine Negative (Negative); Phencyclidine Screen Urine Negative (Negative); Tricyclic Antidepressant Urine Negative (Negative)
[2023-12-12 01:46] LABS: PCR FLU A Negative PCR FLU A (Negative); PCR FLU B Negative PCR FLU B (Negative); PCR RSV Negative PCR RSV (Negative); SARS PCR* Negative SARS-CoV-2 (Negative)
[2023-12-12] MEDS: NICARDIPINE INFUSION 0.1 mg/ml 20 MG/200 ML BAG 50 MG IV (02:11)
== END 2023-12-12 02:38 | disposition short-term general hospital (02) ==
PROVIDERS: Emergency Provider Family Medicine; PCP Family Medicine
DX: I61.9 Nontraumatic intracerebral hemorrhage, unspecified (principal)
CPT/HCPCS: 36415; 70450; 80053; 80143; 80179; 80306; 81001; 81003; 82077; 83605; 83690; 84145; 84484; 85025; 87086; 87631; 93005; 96374; 96375; 99284; 99285; 99291; J2060; J2404; J7030

== ENCOUNTER 2023-12-12 02:28 | Outpatient (CLI) | payer MEDICARE, SELFPAY ==
--- OUTSIDE RECORDS SUMMARY | 2023-12-15 02:18 | XMS_ITS | Continuity of Care Document ---
Author Organization [facility] Address [address] [place] [address] [place] [address] Phone Care Team Providers Care Pneumatic Jack Operator Name Role Phone Will Yaya MARTINES Unavailable [...] Diagnoses Date Provider Providers Copied on Encounter [facility], [address] [place] [address], [id number] , [place] tel:[phone] [facility] Nadya No Information 2 Will Yaya. [address] [facility] [place], [place], [id number], [place]. tel:[phone] OFFICE/OUTPA TIENT VISIT, EST [facility], [address] [facility] [place], [place], [id number] , [place] tel:[phone] [facility] [place] chronic pain (chief complaint) Degeneration of cervical intervertebral discCervicalgiaLumba goSciatica Due To Displacement Of Lumbar DiscIntervertebral disc disorder with myelopathy, lumbar region 4 [facility]. [address] [place], [address], [place]. tel:[phone] Referring Provider: Yaya Bui, [address] [place], [address] . tel:[phone] OFFICE/OUTPA TIENT VISIT, [facility], [address], [id number] , [place] tel:[phone] [facility] [place] chronic pain (chief complaint) Degeneration of cervical intervertebral discCervicalgiaLumba goSciatica Due To Displacement Of Lumbar DiscTherapeutic Drug Monitoring 4 [facility]. [address] [place], [address], [place]. tel:[phone] Referring Provider: Yaya Bui, [facility] [place], [address] . tel:[phone] OFFICE/OUTPA TIENT VISIT, [facility], [address], [id number] , [place] [phone] [facility] chronic pain (chief complaint) CervicalgiaDegenerat ion of cervical intervertebral discLumbagoSciatica Due To Displacement Of Lumbar Disc 4 [facility]. [address] [place], [address], [place]. tel:[phone] Referring Provider: Yaya Bui, [address] [place], [address] . tel:[phone] OFFICE/OUTPA TIENT VISIT, [facility], [address] [place], [id number] , [place] [phone] [facility] Nadya chronic pain (chief complaint) LumbagoDegeneration of thoracic or thoracolumbar intervertebral discDisplacement of lumbar intervertebral disc without myelopathyCervicalgi a 2 Will Yaya. [address] [place], [id number], [place]. tel:[phone] Referring Provider: Yaya Bui, [place], [address] . tel:[phone] [facility], [address], [id number] , [place] tel:[phone] [facility] [place] Lumbago 2 Gracia Isaacs Peg. [address] [place], [id number], [place]. tel:[phone] Referring Provider: Yaya Bui, [facility] [place], [address] . tel:[phone] OFFICE/OUTPA TIENT VISIT, [facility], [address] [place], [id number] , [place] tel:[phone] [facility] chronic pain (chief complaint) Brachial neuritis or radiculitis nosDegeneration of thoracic or thoracolumbar intervertebral discPain in thoracic spineLumbagoDisplace ment of lumbar intervertebral disc without myelopathy 2 Will Yaya. [address] [place], [id number], [place]. tel:[phone] Referring Provider: Yaya Bui, [facility] [place], [address] . tel:[phone] OFFICE/OUTPA TIENT VISIT, [facility], [address] [place], [id number] , [place] tel:[phone] [facility] chronic pain (chief complaint) Brachial neuritis or radiculitis nosDegeneration of cervical intervertebral discLumbagoDisplacem ent of lumbar intervertebral disc without myelopathy 2 Will Yaya. [address] [place], [id number], [place]. tel:[phone] Referring Provider: Yaya Bui, [facility]eland [facility] [place], [address] . tel:[phone] Family History Family Member Type Diagnosis Age At Onset Mother, sisters and Problem (finding) degenerative dis cs and back pain Payers Payer name Insurance type Covered constitution party ID Authorkathy fernandez(s) [place] [id number] Social History Type Description Quantity Date Captured [...]
--- OUTSIDE RECORDS SUMMARY | 2023-12-15 02:18 | XMS_ITS | Encounter Summary ---
Author Organization [facility] Address [address] [place] [address] Care Team Providers Care Mechanical Spreader Operator Name Role Phone Edu Crawford DPM Unavailable [phone] Maddie Mae Unavailable Unavailable Enrico Felton DO Primary Care Provider [phone] Wendy Agustin APRN TRENCH SHOVEL OPERATOR Unavailable [phone] Encounter Details Date Type Department Care [...] re latives? Once a week 11/28/2023 Attends [facility] Not on file 11/27 Active Member [...] Answer Date Recorded PHQ-2 Score 1 11/28/2023 [facility] - Occupational Stress Questionnaire Answer Date Recorded [...] Appointment [facility] [place] [address] [place] [address] Kingsley Westbrook DPM [address] [place], [place] [address] documented as of this encounter Goals Goal Patient Goal Type Associated Problems Recent Progress Patient-Stated? Author Financial Wellbeing General Yes Rosey Alexander, COILER OPERATOR documented as of this encounter Visit Diagnoses Not on filedocumented in this encounter Additional Health Concerns Infection Onset Date Last Indicated Resolved Time MRSA Comment:MRSA at outside facility per 09/01/16 fireworks assembly supervisor note; left foot tissue 10/08/16 10/11/2018 02/27/2019 Assessment Noted Time PHQ-9 Depression Total Score: 1 11/28/19 24 1:52 PM CDT documented as of this encounter Care Teams Mechanical Spreader Operator Relationship Specialty [place] [address] [place] [address] PCP - General Family Medicine 06/30/22 Edu Crawford DPM [address] [facility] [address] [place] [address] Podiatry 10/18/16 Maddie Mae Personal Advocate & Liaison (PAL) Family Medicine 12/28/21 Wendy Agustin APRN TRENCH SHOVEL OPERATOR [address] [place], [place] [address] Assigned PCP 10/09/23 documented as of this encounter
--- OUTSIDE RECORDS SUMMARY | 2023-12-15 02:18 | XMS_ITS | Continuity of Care Document ---
Author Organization [facility] Address [address] [place] [address] Phone Care Team Providers Care Inspector And Unloader Name Role Phone Unavailable Unavailable Unavailable Procedures Procedure Date Office/outpatient visit,[facility] 2010 Advance Directives Directive Yes / No Effective Date File Name No Information Encounters Encounter Description Practice Location Reason(s) For Visit Diagnoses Date Provider Providers Copied on Encounter [facility] [place], [address] [place] [address], [facility], tel:[phone] [employer] No Information 0 2-201 1 No Information Office/outpat ient visit,[facility], [facility], [address] [place] [address], [place], [place], [facility], tel:[phone] [employer] No Information Aug-0 2-201 1 Jose M Loganothy. [facility] [place], [address], [address], [id number], . tel:[phone] Referring Provider: Cooper Maria, [address], [address]. tel:[phone] Family History Family Member Type Diagnosis Age At Onset No Information Payers Payer name Insurance type Covered republican ID Authoriza tielif(s) [place] [id number] [facility] [id number] [id number] Social History Type Description Quantity Date Captured [...]
--- OUTSIDE RECORDS SUMMARY | 2023-12-15 02:18 | XMS_ITS | Clinical Summary ---
Author Organization [facility] Address [address] [place] [address] Care Team Providers Care Emergency Medical Technician/Driver Name Role Phone Edu Crawford DPM Unavailable [phone] Maddie Mae Unavailable Unavailable Enrico Felton DO Primary Care Provider [phone] Wendy Agustin APRN MINE PROMOTOR Unavailable [phone] Allergies Active Allergy Reactions Criticality Noted [...] Date Status PARoxetine (PAXIL) 30 MG tabletIndications:H [facility] Correction,Anxiety and depression Take 2 tablets (60 mg) [...] Overview: Added automatically from request for surgery [id number] Osteomyelitis 10/10/2018 11/14/2023 Non-ST elevation (NSTEMI) my ocardial infarction 05/03/2017 11/14/2023 Acute respiratory failure with hypoxia 04/09/2017 11/14/2023 Type 2 diabetes, HbA1C goal < 8% 06/26/2013 03/06/2017 Health Correction 05/07/2013 09/03/2023 Overview: EMERGENCY CARE PLAN Presenting Problem Signs and Symptoms Treatment Plan Questions or concerns during clinic hours I will call the clinic directly Questions or concerns outside clinic hours I will call the 24 hour nurse line at [phone] Patient needs to schedule an appointment I will call the 24 hour scheduling team at [phone] or clinic directly Same day treatment I [...] Description 11/28/2023 2:00 PM CDT Office Visit [address] [address] Enrico Felton DO Encounter for [...] - 11/26/2023 11:59 PM CDT Hospital Encounter [facility] [address] [place] [address] [address] [place] [address] Andreas Montenegro APRN MINE PROMOTOR 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) Discharge Disposition: Home or Self Care 11/26/2023 Travel 11/14/2023 10:10 AM CDT - 11/14/2023 11:59 PM CDT Hospital Encounter [facility] [place] [address] [place] [phone] Andreas Montenegro APRN MINE PROMOTOR 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) (Primary Dx) Discharge Disposition: Home or Self Care 11/14/2023 Telephone [facility] [place] [address] [place] [address] Andreas Montenegro APRN MINE PROMOTOR 11/14/2023 Travel 10/30/2023 MyC Medical Advice [facility] [address] [place] [address] Enrico Felton DO 10/30/2023 Telephone [facility] [address] [place] [address] Enrico Felton DO Prior Auth - Medication (ondansetron (ZOFRAN) 4 MG tablet -EPA DENIED) 10/30/2023 MyC Medical Advice [facility] [address] [place] [address] Enrico Felton DO 10/30/2023 Refill [facility] [address] [place] [address] Enrico Felton DO Refill Request 10/09/2023 MyC Medical Advice [facility] [address] [place] [address] Melida Pickering CMA 10/08/2023 Telephone [facility] [address] [place] [address] Enrico Felton DO Panel Management (mammo) 09/28/2023 MyC Medical Advice [facility] [address] [place] [address] Melida Pickering, JAYCEE 09/28/2023 Telephone [facility] [address] [place] [address] Enrico Felton DO Panel Management [...] re latives? Once a week 11/28/2023 Attends [employer] Not on file 11/27 Active Member [...] Answer Date Recorded PHQ-2 Score 1 11/28/2023 [facility] - Occupational [...] in an abandoned building, in an overnight retirement, or couch-surfing.) Yes 11/28/2023 Are you worried [...] CDT Appointment [facility] [place] [address] [place] [address] Kingsley Westbrook, GAYLA [address] [place], [place] [address] Health Maintenance Due Date Last Done Comments [...] Author Financial Wellbeing General Yes Rosey Alexander, FINGERER Procedures Procedure Name Priority Date/Time Associated Diagnosis [...] ANTIGEN ANTIBODY COMBO Routine 02/20/2022 3:46 PM STEEPING PRESS TENDER Screening for HIV (human immunodeficiency virus) CT CHEST W CONTRAST STAT 12/04/2020 3:48 PM CDT MA SCREENING BILATERAL W/ AMILCAR Routine 09/07/2020 1:02 PM CDT Screening mammogram for high-risk patient FECAL COLORECTAL CANCER SCREEN FIT Routine 07/18/2018 9:00 AM CDT Screen for colon cancer HEPATITIS C ANTIBODY Routine 04/05/2017 6:35 AM STEEPING PRESS TENDER HPV HIGH RISK TYPES DNA CERVICAL Routine [...] LAB - BLOOD ORDERABL ES [facility] [address] [facility], [address] [place] [address], [facility] * (ABNORMAL) Hemoglobin A1c (11/28/2023 2:56 PM CDT) Hemoglobin A1C 6.1(H) 0.0 - 5.6 % 11/28/2023 3:03 PM CDT [facility] Comment: Normal <5.7% Prediabetes 5.7-6.4% ?? Diabetes 6.5% or higher Note: Adopted from ADA consensus guidelines. Blood BLOOD SPECIMEN / Unknown Venipuncture / Unknown 11/28/2023 2:56 PM CDT 11/28/2023 2:56 PM CDT Enrico Felton LAB - BLOOD ORDERABL ES Performing Organization Address [facility]/ZIP Co de Phone Number [facility] [address] [facility] Lab (no room number, 1st floor of clinic) [place] [address], [facility] * (ABNORMAL) Basic metabolic panel (11/28/2023 [...] LAB - BLOOD ORDERABL ES [facility] [address] [facility], [address] [place] [address] * US MCKAYLA Doppler No Exercise 1-2 Levels Right (11/26/2023 2:12 PM CDT) Anatomical Region Laterality Modality Extremity Ultrasound Impressions 11/26/2023 2:44 PM CDT IMPRESSION: RIGHT LOWER EXTREMITY: MCKAYLA at rest is normal. Multiphasic tibial waveforms. JEZ MORTON MD Narrative 11/26/2023 2:44 PM CDT [facility] DATE: 11/26/2023 EXAM: RESTING ANKLE-BRACHIAL INDICES [...] Procedure Note Jez Morton MD - 11/26/2023 [facility] DATE: 11/26/2023 EXAM: RESTING ANKLE-BRACHIAL INDICES [...] tibial waveforms. JEZ MORTON MD Andreas Montenegro BOOKER MINE PROMOTOR IMG US ORDERAB LES * HIV Antigen Antibody Combo (02/20/2022 3:46 PM STEEPING PRESS TENDER) HIV Antigen Antibody Combo Nonreactive Nonreactive 02/21/2022 5:16 PM STEEPING PRESS TENDER SPECIALTY CORE/PROT/EN DO Comment:HIV-1 p24 Ag & HIV-1 /HIV-2 Ab Not Detected Blood STRUCTURE OF LEFT UPPER LIMB / Unknown Venipuncture / Unknown 02/20/2022 3:46 PM STEEPING PRESS TENDER 02/20/2022 3:47 PM STEEPING PRESS TENDER Enrico Felton DO LAB - BLOOD ORDERABL ES [facility] SPECIALTY CORE/PROT/ENDO [facility] Specialty Core/Prot/Endo [address] [facility] [address], [address] [place] [address], [facility] [phone] * CT Chest w Contrast (12/04/2020 3:48 [...] osseous pathology. ADRY ALBERT MD SYSTEM ID: ??[id number] Narrative 12/04/2020 4:[address] CHEST [...] osseous pathology. ADRY ALBERT MD SYSTEM ID: [id number] Cooper Waters MD IMG CT ORDERABLES * [...] of the results. EH LOCKETT MD Enrico Feltno DO IMG MAMMOGRAPHY DANIELLE CASTILLO * Fecal colorectal cancer screen FIT - Future (S+30) (07/18/2018 9:00 AM CDT) Occult Blood Scn FIT Negative NEG^Negati ve 07/19/2018 9:39 PM CDT [facility] Stool specimen (specimen) 07/18/2018 9:00 AM CDT 07/19/2018 8:00 PM CDT Madhuri Deleon APRN MINE PROMOTOR LAB - STOO LS ORDERABLES Performing Organization Address City/[facility]/ZIP Co de Phone Number [address] [address] * Hepatits C antibody (04/05/2017 6:35 AM STEEPING PRESS TENDER) Hepatitis C Antibody Nonreactive NR^Nonre active 04/05/2017 4:01 PM STEEPING PRESS TENDER [facility] Comment: Assay performance characteristics have not been established for newborns, infants, and children Blood specimen (specimen) 04/05/2017 6:35 AM STEEPING PRESS TENDER 04/05/2017 6:59 AM STEEPING PRESS TENDER Ana Lieberman MD LAB - BLOOD O RDERABLES Performing Organization Address City/[facility]/ZIP Co de Phone Number [address] [address] * HPV High Risk Types DNA Cervical (08/22/2016 2:30 PM CDT) HPV 16 DNA Negative NEG [facility] HPV 18 DNA Negative NEG [facility] Other HR HPV Negative NEG [facility] Final Diagnosis This patient's sample is negative [...] [facility] Specimen Description Cervical Cells [id number] [facility] 08/22/2016 2:30 PM CDT 08/22/2016 2:35 PM CDT Madhuri Deleon APRN MINE PROMOTOR LAB - BLOO D ORDERABLES [facility] [address] [place] [address] * Pap imaged thin layer screen with HPV - recommended age 30 - 65 years (select HPV order below) (08/22/2016 2:29 PM CDT) PAP MEHNAZ Arita Report Patient Name: JATINDER DE LA PAZ MR#: [id number] Specimen #: [id number] Collected: 08/22/2016 Received: 08/24/2016 Reported: 08/28/2016 10:33 [...] Processed and screened at [facility], [facility] CLINICAL HISTORY: LMP: 09/10/2012 Post Menopausal, Previous normal pap Date of Last Pap: 01/18/2012, Papanicolaou Test Limitations: ??Cervical cytology is a screening test with limited sensitivity; regular screening is critical for cancer prevention; Pap tests are primarily effective for the diagnosis/preventi on of squamous cell carcinoma, not adenocarcinomas or other cancers. TESTING LAB LOCATION: [address] ??[address] COLLECTION SITE: Client: ??[facility] Location: [facility] Cytologic material (specimen) 08/22/2016 2:29 PM CDT 08/24/2016 11:02 AM CDT Madhuri Deleon BOOKER MINE PROMOTOR LAB - OPTI [place] CLINICAL SPECIMEN COPATH from Last 3 Months or Most Recently Relevant to Health Maintenance Additional Health Concerns Infection Onset Date Last Indicated MRSA Comment:MRSA at outside facility per 09/01/16 land degradation analyst note; left foot tissue 10/08/16 10/11/2018 02/27/2019 Advance Directives For more information, please contact: [phone] * Full Code (Latest Code Status on [...] with patie nt/legal decision maker Care Teams Emergency Medical Technician/Driver Relationship Specialty [place] [address] [place] [address] PCP - General Family Medicine 06/30/22 Edu Crawford DPM [address] [facility] [address] [place], [place] [id number] Podiatry 10/18/16 Maddie Mae Personal Advocate & Liaison (PAL) Family Medicine 12/28/21 Wendy Agustin APRN MINE PROMOTOR [address] [place], [place] [address] Assigned PCP 10/09/23
--- OUTSIDE RECORDS SUMMARY | 2023-12-15 02:18 | XMS_ITS | Continuity of Care Document ---
Author Organization [facility] Address [address] [facility] [address] [place] [address] Phone Care Team Providers Care Fork Assembler Name Role Phone Unavailable Unavailable Unavailable Allergies, Adverse Reactions, Alerts Substance Reaction Status Criticality celecoxib Made her stiff Active No Informat ion gabapentin Resolved No Information Medications Medication Instructions Dosage Effective Dates (start - stop) Status Comments Paxil 20 mg Tab Take one tablet by mouth daily (1T PO QD) - Active atenolol 25 mg Tab Take one tablet by mouth daily (1T PO QD) - Active lovastatin 20 mg tablet take 1 tablet by oral route every day with the evening meal 20 MG - Active cyanocobalamin (vit B-12) 1,000 mcg tablet take 1 by Oral route every day 1 - Active METHADONE HCL 10MGTABLET Take one tablet [...] (1CAP PO QD) - No Longer Active Zocor 20 mg Tab 1 Capsule by mouth at bedtime (1CAP PO HS) - No Longer Active clonazepam 1 mg [...] Encounter New Pt Eval 45 Min [facility], [address] [facility] [address], [place], [place], [id number], [place] tel:[phone] [facility] No Information 4 No Information Referring Provider: Cooper Maria MD, [place], [address]. tel:[phone] Offic/outpt E&m Estab Mod-hi 4 [facility], [facility], [address], [id number], [place] tel:[phone] [facility] No Information 2 Caleb Brothers. [address] [facility], [facility] [address], [place], [id number], [place]. tel:[phone] Referring Provider: Cooper Maria MD, [address] [place], [address]. tel:[phone] [facility], [facility], [address] [facility] [address], [place], [id number], [place] tel:[phone] [facility] [address] No Information 0 0 Skip Woody. [address] [facility] [address], [place], [id number], [place]. tel:[phone] Referring Provider: Cooper Maria MD, [address] [place], [address]. tel:[phone] Est Pt Eval 25 Min [facility], [facility], [address] [facility] [address], [place], [id number], [place] tel:[phone] [facility] No Information 0 RN RN. [address] [facility] [address], [place], [id number], [place]. tel:[phone] Referring Provider: Cooper Maria MD, [address] [place], [address]. tel:[phone] Offic/outpt E&m Estab Mod-hi 2 [facility], [facility], [address] [facility] [address], [place], [id number], [place] tel:[phone] [facility] No Information 0-201 0 Abdiel Ng. [address] [place], [address], [place]. Referring Provider: Cooper Maria MD, [address] [place], [address]. tel:[phone] Offic Cons New/estab Mod-hi 60 [facility], [facility], [address] [facility] [address], [place], [place], [id number], [place] tel:[phone] [facility] No Information 0 Abdiel Ng. [address] [place], [address], [place]. Referring Provider: Cooper Maria MD, [address] [place], [address]. tel:[phone] [facility], [address] [facility] [address], [place], [id number], tel:[phone] [facility] No Information 0 Regino Pang. [address] [facility] [address], [place], [id number], [place]. tel:[phone] Referring Provider: Cooper Maria MD, [address] [place], [address]. tel:[phone] Family History Family Member Type Diagnosis Age At Onset N/A Problem (finding) spinal degeneration N/A Problem (finding) back pain Payers Payer name Insurance type Covered republican ID Authoriza tion(s) No Information Social History [...]
--- OUTSIDE RECORDS SUMMARY | 2023-12-15 02:18 | XMS_ITS | Continuity of Care Document ---
Author Organization [facility] Address [address] [address] [place] [address] Phone Care Team Providers Care Vending Supervisor Name Role Phone Ana Lieberman MD Unavailable Unavaila ble Procedures Procedure Date Init Hosp-da E&m Mod Severity 8 Advance Directives Directive Yes / No Effective Date File Name No Information Encounters Encounter Description Practice Location Reason(s) For Visit Diagnoses Date Provider Providers Copied on Encounter [facility], [address] [address], [place], [place], [id number], [place] tel:[phone] [facility] No Information Luisana Bill [address] [facility], [place] [address], [place], [place], [id number], [place]. tel:[phone] Init Hosp-da E&m Mod Severity [facility] [place], [address] [address], [place], [place], [id number], [place] tel:[phone] [facility] No Information Luisana Bill [address] [facility], [facility] [address], [place], [place], [id number], [place]. tel:[phone] Referring Provider: Ana Lieberman MD, [address] [facility] [address], [place], [address] . tel:[phone] Family History Family Member Type Diagnosis Age At Onset No Information Payers Payer name Insurance type Covered democrat [...]
--- OUTSIDE RECORDS SUMMARY | 2023-12-15 02:18 | XMS_ITS | Referral Summary ---
Author Organization [place] Address [address] [place] [address] Care Team Providers Care Handling Tech Name Role Phone Edu Crawford DPBharath Unavailable [phone] Maddie Mae Unavailable Unavailable Enrico Felton DO Primary Care Provider [phone] Wendy Agustin APRN NETWORK LIAISON Unavailable [phone] Encounters Date Type Department Care Team Description 11/28/2023 Travel 11/28/2023 2:00 PM CDT Office Visit [address] [address] Enrico Felton DO Encounter for [...] - 11/26/2023 11:59 PM CDT Hospital Encounter [facility] [address] [place] [address] Andreas Montenegro APRN NETWORK LIAISON 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) Discharge Disposition: Home or Self Care 11/14/2023 Telephone [facility] [address] [place] [phone] Andreas Montenegro, WANDY NETWORK LIAISON 11/14/2023 Travel 11/14/2023 10:10 AM CDT - 11/14/2023 11:59 PM CDT Hospital Encounter [facility] [address] [place] [phone] Andreas Montenegro, NET DEVELOPMENT MANAGER NETWORK LIAISON 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) (Primary Dx) Discharge Disposition: Home or Self Care 10/30/2023 MyC Medical Advice [facility] [address] [place] [address] Enrico Felton DO 10/30/2023 Telephone [facility] [address] [place] [address] Enrico Felton DO Prior Auth - Medication (ondansetron (ZOFRAN) 4 MG tablet -EPA DENIED) 10/30/2023 MyC Medical Advice [facility] [address] [place] [address] Enrico Felton DO 10/30/2023 Refill [facility] [address] [place] [address] Enrico Felton DO Refill Request 10/09/2023 MyC Medical Advice [facility] [address] [place] [address] Melida Pickering CMA 10/08/2023 Telephone [facility] [address] [place] [address] Enrico Felton DO Panel Management (mammo) 09/28/2023 MyC Medical Advice [facility] [address] [place] [phone] Melida Pickering, RUNSTITCHING MACHINE OPERATOR 09/28/2023 Telephone [facility] [address] [place] [address] Enrico Felton DO Panel Management [...] Date Status PARoxetine (PAXIL) 30 MG tabletIndications:[facility],Anxiety and depression Take 2 tablets (60 [...] Overview: Added automatically from request for surgery [id number] Osteomyelitis 10/10/2018 11/14/2023 Non-ST elevation (NSTEMI) my [...] call the 24 hour nurse line at [phone] Patient needs to schedule an appointment I will call the 24 hour scheduling team at [phone] or clinic directly Same day treatment I [...] re latives? Once a week 11/28/2023 Attends [employer] Not on file 11/27 Active Member [...] Answer Date Recorded PHQ-2 Score 1 11/28/2023 [facility] - [...] in an abandoned building, in an overnight penitentiary, or couch-surfing.) Yes 11/28/2023 Are you worried [...] Appointment [facility] [place] [address] [place] [address] Kingsley Westbrook DPM [address] [place], [place] [address] Goals Goal Patient Goal Type Associated Problems Recent Progress Patient-Stated? Author Financial Wellbeing General Yes Rosey Alexander, BIOMETRICS EXPERIMENTALIST Procedures Procedure Name Priority Date/Time Associated Diagnosis [...] ANTIGEN ANTIBODY COMBO Routine 02/20/2022 3:46 PM MUD CAR WORKER Screening for HIV (human immunodeficiency virus) CT CHEST W CONTRAST STAT 12/04/2020 3:48 PM CDT MA SCREENING BILATERAL W/ AMILCAR Routine 09/07/2020 1:02 PM CDT Screening mammogram for high-risk patient FECAL COLORECTAL CANCER SCREEN FIT Routine 07/18/2018 9:00 AM CDT Screen for colon cancer HEPATITIS C ANTIBODY Routine 04/05/2017 6:35 AM MUD CAR WORKER HPV HIGH RISK TYPES DNA CERVICAL Routine [...] LAB - BLOOD ORDERABL ES [facility] [address] [facility], Room [address] [place] [phone] * (ABNORMAL) Hemoglobin A1c (11/28/2023 [...] LAB - BLOOD ORDERABL ES LV LABORATORY [facility] [place] [facility] [address] [facility] Lab (no room number, 1st floor of clinic) [place] [address], [facility] * (ABNORMAL) Basic metabolic panel [...] LAB - BLOOD ORDERABL ES [facility] [address] [facility], [address] [phone] * US MCKAYLA Doppler No Exercise 1-2 Levels Right (11/26/2023 2:12 PM CDT) Anatomical Region Laterality Modality Extremity Ultrasound Impressions 11/26/2023 2:44 PM CDT IMPRESSION: RIGHT LOWER EXTREMITY: MCKAYLA at rest is normal. Multiphasic tibial waveforms. JEZ MORTON MD Narrative 11/26/2023 2:44 PM CDT [facility] DATE: 11/26/2023 EXAM: RESTING ANKLE-BRACHIAL INDICES [...] Procedure Note Jez Morton MD - 11/26/2023 [facility] DATE: 11/26/2023 EXAM: RESTING ANKLE-BRACHIAL INDICES [...] tibial waveforms. JEZ MORTON MD Andreas Montenegro NET DEVELOPMENT MANAGER NETWORK LIAISON IMG US ORDERAB LES * HIV Antigen Antibody Combo (02/20/2022 3:46 PM MUD CAR WORKER) HIV Antigen Antibody Combo Nonreactive Nonreactive 02/21/2022 5:16 PM MUD CAR WORKER [facility] DO Comment:HIV-1 p24 Ag & HIV-1 /HIV-2 Ab Not Detected Blood STRUCTURE OF LEFT UPPER LIMB / Unknown Venipuncture / Unknown 02/20/2022 3:46 PM MUD CAR WORKER 02/20/2022 3:47 PM MUD CAR WORKER Enrico Felton DO LAB - BLOOD ORDERABL ES [facility]ENDO [facility]Endo [address] [facility] [address] Building, Room [address] [phone] * CT Chest w Contrast (12/04/2020 3:48 [...] osseous pathology. ADRY ALBERT MD SYSTEM ID: ??[id number] Narrative 12/04/2020 4:[address] CHEST [...] osseous pathology. ADRY ALBERT MD SYSTEM ID: [id number] Cooper Waters MD IMG CT ORDERABLES * [...] 07/19/2018 8:00 PM CDT Madhuri Deleon APRN NETWORK LIAISON LAB - STOO LS ORDERABLES [facility] [address] [place] [address] * Hepatits C antibody (04/05/2017 6:35 AM MUD CAR WORKER) Hepatitis C Antibody Nonreactive NR^Nonre active 04/05/2017 4:01 PM MUD CAR WORKER [facility] Comment: Assay performance characteristics have not been established for newborns, infants, and children Blood specimen (specimen) 04/05/2017 6:35 AM MUD CAR WORKER 04/05/2017 6:59 AM MUD CAR WORKER Ana Lieberman MD LAB - BLOOD O RDERABLES Performing Organization Address City/[facility]/ZIP Co de Phone Number [facility] [address] [place] [address] * HPV High Risk Types DNA Cervical (08/22/2016 2:30 PM CDT) HPV 16 DNA Negative [facility] HPV 18 DNA Negative [facility]G [facility] Other HR HPV Negative NEG [facility] Final Diagnosis This patient's sample is negative [...] and its performance characteristics determined by the [facility], [facility] Diagn[facility] Laboratory. It has not been cleared or approved by the FDA. The laboratory is regulated under CLIA as qualified to perform high-complexity testing. This test is used for clinical purposes. It should not be regarded as investigational or for research. [facility] Specimen Description Cervical Cells [id number] [facility] 08/22/2016 2:30 PM CDT 08/22/2016 2:35 PM CDT Madhuri Deleon APRN NETWORK LIAISON LAB - BLOO D ORDERABLES [facility] [address] [place] [address] * Pap imaged thin layer screen with HPV - recommended age 30 - 65 years (select HPV order below) (08/22/2016 2:29 PM CDT) PAP NIL EPI Arita Report Patient Name: JATINDER DE LA PAZ MR#: [id number] Specimen #: [id number] Collected: 08/22/2016 Received: 08/24/2016 Reported: 08/28/2016 10:33 [...] BRENNA Hong (ASCP) Processed and screened at [facility], [facility] CLINICAL HISTORY: LMP: 09/10/2012 Post Menopausal, Previous normal pap Date of Last Pap: 01/18/2012, Papanicolaou Test Limitations: ??Cervical cytology is a screening test with limited sensitivity; regular screening is critical for cancer prevention; Pap tests are primarily effective for the diagnosis/preventi on of squamous cell carcinoma, not adenocarcinomas or other cancers. TESTING LAB LOCATION: [address] ??[address] COLLECTION SITE: Client: ??[facility] Location: [facility]FP (R) COPATH Cytologic material (specimen) 08/22/2016 2:29 PM CDT 08/24/2016 11:02 AM CDT Madhuri White J Carlos NET DEVELOPMENT MANAGER NETWORK LIAISON LAB - OPTI ME CLINICAL SPECIMEN COPATH from Last 3 Months or Most Recently Relevant to Health Maintenance Additional Health Concerns Infection Onset Date Last Indicated MRSA Comment:MRSA at outside facility per 09/01/16 fleet service manager note; left foot tissue 10/08/16 10/11/2018 02/27/2019 Advance Directives For more information, please contact: [phone] * Full Code (Latest Code Status on [...] with patie nt/legal decision maker Care Teams Handling Tech Relationship Specialty [place] [address] [place] [address] PCP - General Family Medicine 06/30/22 Edu Crawford DPM [address] [facility] [address] [place], [place] [address] Podiatry 10/18/16 Maddie Mae Personal Advocate & Liaison (PAL) Family Medicine 12/28/21 Wendy Agustin APRN NETWORK LIAISON [address] [place] [address] Assigned PCP 10/09/23
--- OUTSIDE RECORDS SUMMARY | 2023-12-15 02:19 | XMS_ITS | Encounter Summary ---
Author Organization [place] Address [address] [place] [address]. [place] [address] Care Team Providers Care Repair Service Clerk Name Role Phone Edu Crawford DPM Unavailable [phone] Enrico Felton DO Unavailable [phone] Maddie Mae Unavailable Unavailable Enrico Felton DO Primary Care Provider [phone] Reason for Visit * Reason Onset Date Comments Referral 09/13/2023 Foot Wound Encounter Details Date Type Department Care Team (Late st Contact Info) Description 09/13/2023 Telephone [facility] [place] [address] [place] [phone] [place], Wound Healing [facility] Medical Office Building [address] [place] [address] Referral (Foot Wound) Social History Tobacco Use [...] Never 02/20/2022 How often do you attend jewish or pentecostalism serv ices? Patient declined 02/20/2022 Do you belong to any clubs o r organizations such as jewish groups, unions, fraternal or athletic groups, or [...] Answer Date Recorded PHQ-2 Score 1 09/13/2023 [facility] - Occupational Stress Questionnaire Answer Date Recorded [...] Workqueue from Wendy Agustin APRN CNP in [facility] for wound of the foot Does the patient have an open and draining wound? Yes Please schedule with Ebonie Barr PA-C, Rosario Sheffield NP, Jeremy Sparks M.D., or Andreas Montenegro CNP at [facility] [place] for next available appointment. For all providers, Taniya Quintero PA-C, Dr. Stevenson, Rosario Sheffield BENCH PATTERNMAKER METAL or Dr. Pham, please schedule a follow [...] CDT Appointment [facility] [place] [address] [place] [address] [address] [place] [phone] Kingsley Westbrook DPM [address] [place] [phone] documented as of this encounter Goals Goal Patient Goal Type Associated Problems Recent Progress Patient-Stated? 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 per 09/01/16 web development instructor note; left foot tissue 10/08/16 10/11/2018 02/27/2019 Assessment Noted Time PHQ-9 Depression Total Score: 1 09/13/19 24 10:02 AM CDT documented as of this encounter Care Teams Repair Service Clerk Relationship Specialty [place] [address] [place] [address] PCP - General Family Medicine 06/30/22 [place] D[place] [address] [facility] [address] [place] [address] Podiatry 10/18/16 [place] [address] [place] [address] Assigned PCP 08/29/20 10/08/23 Maddie Mae Personal Advocate & Liaison (PAL) Family Medicine 12/28/21 documented as of this encounter
--- OUTSIDE RECORDS SUMMARY | 2023-12-15 02:19 | XMS_ITS | Encounter Summary ---
Author Organization [place] Address [address] [place] [address]. [place] [address] Care Team Providers Care Field Artillery Basic Name Role Phone Edu Crawford DPM Unavailable [phone] Maddie Mae Unavailable Unavailable Enrico Felton DO Primary Care Provider [phone] Wendy Agustin APRN NET APPLICATION SUPPORT SPECIALIST Unavailable [phone] Encounter Details Date Type Department Care Team (Late st Contact Info) Description 10/30/2023 MyC Medical Advice [facility] [address] [place] [phone] [place] [address] [place] [address] Social History Tobacco Use Types Packs/Day [...] How often do you attend buddhist or buddhism serv ices? Patient declined 02/20/2022 [...] 09/13/2023 [facility] - Occupational Stress Questionnaire Answer Date Recorded [...] CDT Appointment [facility] [address] [place] [address] Kingsley Westbrook DPM [address] [place] [address] documented as of this encounter Goals Goal Patient Goal Type Associated Problems Recent Progress Patient-Stated? Author Financial Wellbeing General Yes Rosey Alexander, DENTAL FRONT OFFICE ASSISTANT documented as of this encounter Visit Diagnoses Not on filedocumented in this encounter Additional Health Concerns Infection Onset Date Last Indicated Resolved Time MRSA Comment:MRSA at outside facility per 09/01/16 inspector filter tip note; left foot tissue 10/08/16 10/11/2018 02/27/2019 Assessment Noted Time PHQ-9 Depression Total Score: 1 09/13/19 24 10:02 AM CDT documented as of this encounter Care Teams Field Artillery Basic Relationship Specialty [place] [address] [place] [address] PCP - General Family Medicine 06/30/22 Edu Crawford DPM [address] [facility] [address] [place] [address] Podiatry 10/18/16 Maddie Mae Personal Advocate & Liaison (PAL) Family Medicine 12/28/21 Wendy Agustin APRN NET APPLICATION SUPPORT SPECIALIST [address] [place] [address] Assigned PCP 10/09/23 documented as of this encounter
--- OUTSIDE RECORDS SUMMARY | 2023-12-15 02:19 | XMS_ITS | Encounter Summary ---
Author Organization [place] Address [address] [place] [address]. [place] [address] Care Team Providers Care Parking Line Painter Name Role Phone Edu Crawford DPM Unavailable [phone] Enrico Felton DO Unavailable [phone] Maddie Mae Unavailable Unavailable Enrico Felton DO Primary Care Provider [phone] Reason for Visit * Reason Onset Date Comments Panel Management 09/28/2023 pap Encounter Details Date Type Department Care Team (Late st Contact Info) Description 09/28/2023 Telephone [facility] [address] [place] [phone] [place] [address] [place] [address] Panel Management (pap) Social History Tobacco [...] Never 02/20/2022 How often do you attend scientologist or hinduism serv ices? Patient declined 02/20/2022 Do you belong to any clubs o r organizations such as scientologist groups, unions, fraternal or athletic groups, or [...] Answer Date Recorded PHQ-2 Score 1 09/13/2023 [facility] - Occupational Stress Questionnaire Answer [...] place to sleep or slept in a [place] health care facility (including now)? No 02/20/2022 Adolescent Education Answer [...] back. and Sent MyChart message. Melida Pickering/JAYCEE [place]---[facility] documented in this encounter Plan of Treatment Upcoming Encounters Date Type Department Care Team (Late st Contact Info) Description 12/21/2023 2:00 PM CDT Appointment [facility] [place] [address] [place] [address] Kingsley Westbrook DPM [address] [place] [address] documented as of this encounter Goals Goal Patient Goal Type Associated Problems Recent Progress Patient-Stated? Author Financial Wellbeing General Yes Rosey Alexander, ENERGY PROFESSIONAL documented as of this encounter Visit Diagnoses Not on filedocumented in this encounter Additional Health Concerns Infection Onset Date Last Indicated Resolved Time MRSA Comment:MRSA at outside facility per 09/01/16 leather tacker note; left foot tissue 10/08/16 10/11/2018 02/27/2019 Assessment Noted Time PHQ-9 Depression Total Score: 1 09/13/19 24 10:02 AM CDT documented as of this encounter Care Teams Parking Line Painter Relationship Specialty [place] [address] [place] [address] PCP - General Family Medicine 06/30/22 Edu Crawford DPM [id number] [place] [address] [address] [place] [address] Podiatry 10/18/16 [place] [address] [place] [address] Assigned PCP 08/29/20 10/08/23 Maddie Mae Personal Advocate & Liaison (PAL) Family Medicine 12/28/21 documented as of this encounter
--- OUTSIDE RECORDS SUMMARY | 2023-12-15 02:19 | XMS_ITS | Encounter Summary ---
Author Organization [place] Address [facility] [place] [address] Care Team Providers Care Quality Engineering Manager Name Role Phone Edu Crawford DPM Unavailable [phone] Maddie Mae Unavailable Unavailable Enrico Felton DO Primary Care Provider [phone] Wendy Agustin APRN MANAGER COMMUNITY Unavailable [phone] Encounter Details Date Type Department Care Team (Late st Contact Info) Description 11/14/2023 Telephone [facility] [place] [address] [facility] [address] [place] [address] Andreas Montenegro, GUIDE WINDER MANAGER COMMUNITY [address] [place], [place] [id number] Social History Tobacco Use Types Packs/Day Years [...] How often do you attend jew or mormon serv ices? Patient declined 02/20/2022 Do you [...] Recorded PHQ-2 Score 1 09/13/2023 [facility] - Occupational Stress Questionnaire Answer Date [...] wound nurse to alert charge nurse or lead front end developer staff who willcall Vein lead front end developer at [phone] and/or Vascular schedulers [phone] to schedule the testing needed and coordinated wound clinic visit. The dressing can always be removed if testing is ordered. Please include in the order to be scheduled by [facility] or [facility], whichever is appropriate. Route to [facility] and/or [facility] scheduling pools. If the patient is a BEATRIZ lift, route to clinical nurse specialist and charge nurse. They will help to get the patient scheduled at the appropriate place. Routing to [facility] Appointment Scheduling Pool for MCKAYLA/arterial duplex orders Andreas Montenegro CNP documented in this encounter Plan of Treatment Upcoming Encounters Date Type Department Care Team (Late st Contact Info) Description 12/21/2023 2:00 PM CDT Appointment [facility] [address] [place] [address] Kingsley Westbrook DPM [address] [place] [phone] documented as of this encounter Goals Goal Patient Goal Type Associated Problems Recent Progress Patient-Stated? 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 per 09/01/16 ball shagger note; left foot tissue 10/08/16 10/11/2018 02/27/2019 Assessment Noted Time PHQ-9 Depression Total Score: 1 09/13/19 24 10:02 AM CDT documented as of this encounter Care Teams Quality Engineering Manager Relationship Specialty [place] [address] [place] [address] PCP - General Family Medicine 06/30/22 [place] [address] [facility] [address] [place] [address] Podiatry 10/18/16 Maddie Mae Personal Advocate & Liaison (PAL) Family Medicine 12/28/21 Wendy Agustin APRN MANAGER COMMUNITY [address] [facility] [address] [place], [place] [address] Assigned PCP 10/09/23 documented as of this encounter
--- OUTSIDE RECORDS SUMMARY | 2023-12-15 02:19 | XMS_ITS | Encounter Summary ---
Author Organization [place] Address [address] [place] [address] Care Team Providers Care Hot Stamp Operator Name Role Phone Edu Crawford DPBharath Unavailable [phone] Maddie Mae Unavailable Unavailable Enrico Felton DO Primary Care Provider [phone] Wendy Agustin APRN MOTOR AND CONTROLS TESTER Unavailable [phone] Encounter Details Date Type Department Care [...] How often do you attend hoahaoism or nondenominational serv ices? Patient declined 02/20/2022 Do you [...] Answer Date Recorded PHQ-2 Score 1 09/13/2023 [facility] - Occupational Stress Questionnaire Answer Date [...] Info) Description 12/21/2023 2:00 PM CDT Appointment [facility] [address] [place] [phone] Kingsley Westbrook DPM [address] [place] [address] [phone] documented as of this encounter Goals Goal Patient Goal Type Associated Problems Recent Progress Patient-Stated? Author Financial Wellbeing General Yes Rosey Alexander, BANK CREDIT CARD COLLECTION CLERK documented as of this encounter Visit Diagnoses Not on filedocumented in this encounter Additional Health Concerns Infection Onset Date Last Indicated Resolved Time MRSA Comment:MRSA at outside facility per 09/01/16 prop attendant note; left foot tissue 10/08/16 10/11/2018 02/27/2019 Assessment Noted Time PHQ-9 Depression Total Score: 1 09/13/19 24 10:02 AM CDT documented as of this encounter Care Teams Hot Stamp Operator Relationship Specialty [place] [address] [place] [address] PCP - General Family Medicine 06/30/22 Edu Crawford DPM [address] [facility] [address] [place] [address] Podiatry 10/18/16 Maddie Mae Personal Advocate & Liaison (PAL) Family Medicine 12/28/21 Wendy Agustin APRN MOTOR AND CONTROLS TESTER [address] [facility] [address] [place] [address] Assigned PCP 10/09/23 documented as of this encounter
--- OUTSIDE RECORDS SUMMARY | 2023-12-15 02:19 | XMS_ITS | Encounter Summary ---
Author Organization [place] Address [address] [place] [address]. [place] [address] Care Team Providers Care Bleach Supervisor Name Role Phone MirandaStefan lazoemy DPM Unavailable [phone] Maddie Mae Unavailable Unavailable Enrico Felton DO Primary Care Provider [phone] Wendy Agustin APRN INPATIENT SERVICES RN Unavailable [phone] Reason for Visit * Reason Onset Date Comments Refill Request 10/30/2023 Encounter Details Date Type Department Care Team (Late st Contact Info) Description 10/30/[address] [address] [place] [id number] [place] [address] Refill Request Social History Tobacco Use [...] Never 02/20/2022 How often do you attend adventist or mosque serv ices? Patient declined 02/20/2022 Do you belong to any clubs o r organizations such as adventist groups, unions, fraternal or athletic groups, or [...] Answer Date Recorded PHQ-2 Score 1 09/13/2023 [facility] - Occupational Stress Questionnaire Answer [...] medications were previously prescribed by pain clinic, [facility] in [place]. Patient has upcoming appointment with Dr. Felton on 11/28/2023. A-(assessment): Patient no longer wants to go to pain clinic because it is too far away and too expensive. Patient has appointment with pain clinic on 11/13/2023, but patient says she may not go to this appointment. R-(recommendations): Routing refills to primary care provider to advise. Thank you, Caesar De Luna, oyster grader [facility] 10:32 AM 10/30/2023 documented in this encounter Plan of Treatment Upcoming Encounters Date Type Department Care Team (Late st Contact Info) Description 12/21/2023 2:00 PM CDT Appointment [facility] [address] [place] [phone] Kingsley Westbrook DPM [address] [place] [address] [phone] documented as of this encounter Goals Goal Patient Goal Type Associated Problems Recent Progress Patient-Stated? Author Financial Wellbeing General Yes Rosey Alexander, MACHINE HAND documented as of this encounter Visit Diagnoses [...] MRSA Comment:MRSA at outside facility per 09/01/16 outside cutter hand note; left foot tissue 10/08/16 10/11/2018 02/27/2019 Assessment Noted Time PHQ-9 Depression Total Score: 1 09/13/19 10:02 AM CDT documented as of this encounter Care Teams Bleach Supervisor Relationship Specialty [place] [address] [place] [address] PCP - General Family Medicine 06/30/22 Edu Crawford DPM [address] [facility] [address] [place], [place] [phone] Podiatry 10/18/16 Maddie Mae Personal Advocate & Liaison (PAL) Family Medicine 12/28/21 Wendy Agustin APRN INPATIENT SERVICES RN [address] [facility] [address] [place] [address] Assigned PCP 10/09/23 documented as of this encounter
--- OUTSIDE RECORDS SUMMARY | 2023-12-15 02:19 | XMS_ITS | Encounter Summary ---
Author Organization [place] Address [address] [place] [address]. [place] [address] Care Team Providers Care Head Stock Transfer Clerk Name Role Phone Edu Crawford DPM Unavailable [phone] Maddie Mae Unavailable Unavailable Enrico Felton DO Primary Care Provider [phone] Wendy Agustin APRN COMMERCIAL UNDERWRITER Unavailable [phone] Encounter Details Date Type Department Care Team (Late st Contact Info) Description 10/30/2023 [facility] Medical Advice [facility] [id number] [place] [address] [place] [id number] [place] [address] Social History Tobacco Use Types Packs/Day [...] How often do you attend pentecostalism or anglican serv ices? Patient declined 02/20/2022 Do you [...] Answer Date Recorded PHQ-2 Score 1 09/13/2023 [facility] - Occupational Stress Questionnaire Answer Date [...] Appointment [facility] [address] [place] [address] Kingsley Westbrook DPM [address] [place] [address] documented as of this encounter Goals Goal Patient Goal Type Associated Problems Recent Progress Patient-Stated? Author Financial Wellbeing General Yes Rosey Alexander, HARNESS FITTER documented as of this encounter Visit Diagnoses Not on filedocumented in this encounter Additional Health Concerns Infection Onset Date Last Indicated Resolved Time MRSA Comment:MRSA at outside facility per 09/01/16 acid patroller note; left foot tissue 10/08/16 10/11/2018 02/27/2019 Assessment Noted Time PHQ-9 Depression Total Score: 1 09/13/19 24 10:02 AM CDT documented as of this encounter Care Teams Head Stock Transfer Clerk Relationship Specialty [place] [address] [place] [address] PCP - General Family Medicine 06/30/22 Edu Crawford DPM [address] [facility] [address] [place] [address] Podiatry 10/18/16 Maddie Mae Personal Advocate & Liaison (PAL) Family Medicine 12/28/21 Wendy Agustin APRN COMMERCIAL UNDERWRITER [address] [place] [address] Assigned PCP 10/09/23 documented as of this encounter
--- OUTSIDE RECORDS SUMMARY | 2023-12-15 02:19 | XMS_ITS | Encounter Summary ---
Author Organization [place] Address [address] [place] [address] Care Team Providers Care Bearing Maker Name Role Phone Edu Crawford DPM Unavailable [phone] Enrico Felton DO Unavailable [phone] Maddie Mae Unavailable Unavailable Enrico Felton DO Primary Care Provider [phone] Encounter Details Date Type Department Care Team [...] How often do you attend scientologist or gnosticism serv ices? Patient declined 02/20/2022 [...] Answer Date Recorded PHQ-2 Score 1 09/13/2023 [facility]at ional Health - [...] CDT Appointment [facility] [address] [place] [address] Kingsley Westbrook DPM [address] [place] [phone] documented as of this encounter Goals Goal Patient Goal Type Associated Problems Recent Progress Patient-Stated? Author Financial Wellbeing General Yes Rosey Alexander, CRM DYNAMICS DEVELOPER documented as of this encounter Visit Diagnoses Not on filedocumented in this encounter Additional Health Concerns Infection Onset Date Last Indicated Resolved Time MRSA Comment:MRSA at outside facility per 09/01/16 radio station audio engineer note; left foot tissue 10/08/16 10/11/2018 02/27/2019 Assessment Noted Time PHQ-9 Depression Total Score: 1 09/13/19 24 10:02 AM CDT documented as of this encounter Care Teams Bearing Maker Relationship Specialty [place] [address] [place] [address] PCP - General Family Medicine 06/30/22 Edu [place] DPM [address] [facility] [address] [place] [address] Podiatry 10/18/16 [place] [address] [place] [address] Assigned PCP 08/29/20 10/08/23 Maddie Mae Personal Advocate & Liaison (PAL) Family Medicine 12/28/21 documented as of this encounter
--- OUTSIDE RECORDS SUMMARY | 2023-12-15 02:19 | XMS_ITS | Encounter Summary ---
Author Organization [place] Address [address] [place] [address] Care Team Providers Care Type Photography Supervisor Name Role Phone Edu Crawford DPBharath Unavailable [phone] Maddie Mae Unavailable Unavailable Enrico Felton DO Primary Care Provider [phone] Wendy Agustin APRN DIRECTOR FURNITURE Unavailable [phone] Encounter Details Date Type Department Care [...] How often do you attend yazdanism or shinto serv ices? Patient declined 02/20/2022 Do you [...] Answer Date Recorded PHQ-2 Score 1 09/13/2023 [facility] - Occupational Stress Questionnaire Answer Date [...] CDT Appointment [facility] [address] [place] [phone] Kingsley Westbrook DPM [address] [place] [address] [phone] documented as of this encounter Goals Goal Patient Goal Type Associated Problems Recent Progress Patient-Stated? Author Financial Wellbeing General Yes Rosey Alexander, PHARMACY BILLING ADJUDICATOR documented as of this encounter Visit Diagnoses Not on filedocumented in this encounter Additional Health Concerns Infection Onset Date Last Indicated Resolved Time MRSA Comment:MRSA at outside facility per 09/01/16 apprentice painter neckties note; left foot tissue 10/08/16 10/11/2018 02/27/2019 Assessment Noted Time PHQ-9 Depression Total Score: 1 09/13/19 24 10:02 AM CDT documented as of this encounter Care Teams Type Photography Supervisor Relationship Specialty [place] [address] [place] [address] PCP - General Family Medicine 06/30/22 Edu Crawford DPM [address] [facility] [address] [place] [address] Podiatry 10/18/16 Maddie Mae Personal Advocate & Liaison (PAL) Family Medicine 12/28/21 Wendy Agustin APRN DIRECTOR FURNITURE [address] [facility] [address] [place] [address] Assigned PCP 10/09/23 documented as of this encounter
--- OUTSIDE RECORDS SUMMARY | 2023-12-15 02:19 | XMS_ITS | Encounter Summary ---
Author Organization [place] Address [address] [place] [address]. [place] [address] Care Team Providers Care Assembler Engine Name Role Phone Mirandaclifton Edu DPM Unavailable [phone] Maddie Mae Unavailable Unavailable Enrico Felton DO Primary Care Provider [phone] Wendy Agustin APRN CHIROPRACTOR SOLE PRACTITIONER Unavailable [phone] Reason for Visit * Reason Onset Date Comments Prior Auth - Medication 10/30/2023 ondanset willi (ZOFRAN) 4 MG tablet -EPA DENIED Encounter Details Date Type Department Care Team (Late st Contact Info) Description 10/30/[address] [address] [place] [id number] [place] [address] Prior Auth - Medication (ondansetron (ZOFRAN) [...] Never 02/20/2022 How often do you attend christianity or jain serv ices? Patient declined 02/20/2022 Do you belong to any clubs o r organizations such as christianity groups, unions, fraternal or athletic groups, or [...] Answer Date Recorded PHQ-2 Score 1 09/13/2023 [facility] - Occupational [...] HCL 4 MG PO TABS Insurance Company: [employer] ([facility]) - Denial Date: 10/30/2023 Denial Reason(s): [...] 2:00 PM CDT Appointment [facility] [place] [address] [place] [address] Kingsley Westbrook DPM [address] [place] [address] documented as of this encounter Goals Goal Patient Goal Type Associated Problems Recent Progress Patient-Stated? Author Financial Wellbeing General Yes Rosey Alexander, BLASTING CONTRACT MAN documented as of this encounter Visit Diagnoses Not on filedocumented in this encounter Additional Health Concerns Infection Onset Date Last Indicated Resolved Time MRSA Comment:MRSA at outside facility per 09/01/16 liquid hydrogen plant operator note; left foot tissue 10/08/16 10/11/2018 02/27/2019 Assessment Noted Time PHQ-9 Depression Total Score: 1 09/13/19 24 10:02 AM CDT documented as of this encounter Care Teams Assembler Engine Relationship Specialty [place] [address] [place] [address] PCP - General Family Medicine 06/30/22 [place] [address] [facility] [address] [place] [address] Podiatry 10/18/16 Maddie Mae Personal Advocate & Liaison (PAL) Family Medicine 12/28/21 Wendy Agustin APRN CHIROPRACTOR SOLE PRACTITIONER [address] [facility] [address] [place] [address] Assigned PCP 10/09/23 documented as of this encounter
--- OUTSIDE RECORDS SUMMARY | 2023-12-15 02:19 | XMS_ITS | Encounter Summary ---
Author Organization [place] Address [address] [place] [address] Care Team Providers Care Dispatch Associate Name Role Phone Edu Crawford DPBharath Unavailable [phone] Maddie Mae Unavailable Unavailable Enrico Felton DO Primary Care Provider [phone] Wendy Agustin APRN LABORER MINE Unavailable [phone] Reason for Referral * Diagnostic Imaging Ultrasound (Routine) - Pending Review Specialty Diagnoses / Procedures Referred By Contac t Referred To Contact Radiology. 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 [address] [place] [phone] Andreas Montenegro APRN LABORER MINE [address] [place] [address] Neuropathic ulcer of right foot with fat [...] How often do you attend shinto or baptist serv ices? Patient declined 02/20/2022 [...] Answer Date Recorded PHQ-2 Score 1 09/13/2023 [facility] of Occupat ional Health - Occupational Stress [...] order for supplies has been placed to [employer]. If there are any issues with your order including not receiving the order please call our clinic at [phone]. Do not call [employer]. We are better able to help you. We can contact the [employer] rep to better assist than if you call the general [employer] number. We can provide a tracking number also if needed. [employer] is now sending an ancillary kit free of charge. This kit includes gauze, gloves, and saline. You will receive 1 kit per 15 days of the supply order. We typically order 30 days of supplies so you will receive 2 kits. Please let us know if you would not like to receive this kit and we can communicate this to [employer]. Dressing changes outside of clinic are being performed by Patient Plan 11/14/2023 -okay to shower but do not soak your foot and no swimming and no hot tubs -Try and stay off your foot as much as possible -You have been referred to [facility] for MCKAYLA testing. Please call [phone] to schedule. -Will discuss footwear options with Hydrogen Braze Furnace Operator at next appointment -Try and cut [...] powder - 24g per scoop (on average) Nepali yogurt - 23g per 8oz Chicken or Colliers - 23g per 3oz Fish - 20-25g per 3oz Beef - 18-23g per 3oz Tofu - 10g per 1/2 cup [place] beans - 20g per cup Cottage cheese - 14g per 1/2 cup Lentils - 13g per 1/4 cup Beef jerky 13g per 1oz 2% milk - 8g per cup Peanut butter - 8g per 2 tablespoons Eggs - 6g per egg Mixed nuts - 6g per 2oz Main Provider: Andreas Montenegro CNP November 14, 2023 Call us at [phone] if you have any questions about your [...] that on your patient satisfaction survey form [facility] will be sending you. It was a [...] any billing related questions please call the [facility] Business office at [phone].The clinic staff does not handle billing related [...] tablet 11/14/2023 PARoxetine (PAXIL) 30 MG tabletIndications:[facility],Anxiety and depression Take 2 tablets (60 mg) [...] 4 02/20/2022 11/28/2023 pregabalin (LYRICA) 150 MG capsuleIndications:[facility] Take 1 capsule (150 mg) by mouth [...] encounter Progress Notes * Andreas Montenegro, WANDY LABORER MINE - 11/14/2023 10:17 AM CDT Images from the original note were not included. [facility] ASSESSMENT: (L97.512) Neuropathic ulcer [...] order for supplies has been placed to [employer]. If there are any issues with your order including not receiving the order please call our clinic at [phone]. Do not call [employer]. We are better able to help you. We can contact the [employer] rep to better assist than if you call the general [employer] number. We can provide a tracking number also if needed. [employer] is now sending an ancillary kit free of charge. This kit includes gauze, gloves, and saline. You will receive 1 kit per 15 days of the supply order. We typically order 30 days of supplies so you will receive 2 kits. Please let us know if you would not like to receive this kit and we can communicate this to [employer]. Dressing changes outside of clinic are being performed by Patient Plan 11/14/2023 -okay to shower but do not soak your foot and no swimming and no hot tubs -Try and stay off your foot as much as possible -You have been referred to [facility] for MCKAYLA testing. Please call [phone] to schedule. -Will discuss footwear options with Hydrogen Braze Furnace Operator at next appointment -Try and cut [...] powder - 24g per scoop (on average) Nepali yogurt - 23g per 8oz Chicken or Colliers - 23g per 3oz Fish - 20-25g per 3oz Beef - 18-23g per 3oz Tofu - 10g per 1/2 cup [place] beans - 20g per cup Cottage cheese - 14g per 1/2 cup Lentils - 13g per 1/4 cup Beef jerky 13g per 1oz 2% milk - 8g per cup Peanut butter - 8g per 2 tablespoons Eggs - 6g per egg Mixed nuts - 6g per 2oz Main Provider: Andreas Montenegro CNP November 14, 2023 Call us at [phone] if you have any questions about your [...] that on your patient satisfaction survey form [facility] will be sending you. It was a [...] any billing related questions please call the [facility] Business office at [phone].The clinic staff does not handle billing related [...] reschedule. Electronically signed by: Andreas Montenegro, OSEAS, HIDES INSPECTOR, LABORER MINE, CWCN * Jacqueline Morel RN - 11/14/2023 [...] [facility] [address] [place] [address] Kingsley Westbrook DPM [address] [place] [address] documented as of this encounter Goals Goal [...] MORTON MD Narrative 11/26/2023 2:44 PM CDT [facility] DATE: 11/26/2023 EXAM: RESTING ANKLE-BRACHIAL INDICES (ABIs) INDICATION: Longtime smoker, prediabetes, neuropathy, plantar foot ulcer of right foot with fat layer exposed. History of right TMA and left BKA. Peripheral arterial disease. COMPARISON: MCKAYLA 10/11/2018. MCKAYAL FINDINGS: Pressure measurements in mmHg RIGHT Brachial: 183 Ankle (PT): 180, 0.98 Ankle (DP): 171, 0.93 Status post right TMA. LEFT Brachial: 180 Status post left BKA. WAVEFORMS: Multiphasic waveforms in the right posterior tibial and dorsalis pedis arteries. Procedure Note Jez Morton MD - 11/26/2023 [facility] DATE: 11/26/2023 EXAM: RESTING ANKLE-BRACHIAL INDICES [...] waveforms. 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) documented in this encounter Additional Health Concerns Infection Onset Date Last Indicated Resolved Time MRSA Comment:MRSA at outside facility per 09/01/16 kinder teacher note; left foot tissue 10/08/16 10/11/2018 02/27/2019 Assessment Noted Time PHQ-9 Depression Total Score: 1 09/13/19 24 10:02 AM CDT documented as of this encounter Care Teams Dispatch Associate Relationship Specialty [place] [address] [place] [address] PCP - General Family Medicine 06/30/22 [place] [address] [facility] [address] [place], [place] [address] Podiatry 10/18/16 Maddie Mae Personal Advocate & Liaison (PAL) Family Medicine 12/28/21 Wendy Agustin APRN LABORER MINE [address] [place] [address] Assigned PCP 10/09/23 documented as of this encounter
--- OUTSIDE RECORDS SUMMARY | 2023-12-15 02:19 | XMS_ITS | Encounter Summary ---
Author Organization [facility] Address [address] [place] [address]. [place] [address] Care Team Providers Care Flexographic Printing Press Operator Name Role Phone Edu Crawford DPM Unavailable [phone] Enrico Felton DO Unavailable [phone] Maddie Mae Unavailable Unavailable Enrico Felton DO Primary Care Provider [phone] Wendy Agustin APRN CALENDER LET OFF HELPER Unavailable [phone] Reason for Visit * Reason Onset Date Comments Panel Management 10/08/2023 mammo Encounter Details Date Type Department Care Team (Late st Contact Info) Description 10/08/2023 Telephone [facility] [id number] [place] [address] Enrico Felton DO [address] [place] [address] Panel Management (mammo) Social History Tobacco [...] How often do you attend confucianist or adventism serv ices? Patient declined 02/20/2022 [...] Answer Date Recorded PHQ-2 Score 1 09/13/2023 [facility] - Occupational Stress Questionnaire Answer Date [...] in a correction (including now)? No 02/20/2022 Adolescent Education Answer [...] for patient to call back. Melida Pickering/JAYCEE [facility]---[facility] documented in this encounter Plan of Treatment Upcoming Encounters Date Type Department Care Team (Late st Contact Info) Description 12/21/2023 2:00 PM CDT Appointment [facility] [place] [address] [place] [address] Kingsley Westbrook DPM [address] [place] [address] documented as of this encounter Goals Goal Patient Goal Type Associated Problems Recent Progress Patient-Stated? Author Financial Wellbeing General Yes Rosey Alexander, CARRIER BLOWER documented as of this encounter Visit Diagnoses Not on filedocumented in this encounter Additional Health Concerns Infection Onset Date Last Indicated Resolved Time MRSA Comment:MRSA at outside facility per 09/01/16 laser beam cutter note; left foot tissue 10/08/16 10/11/2018 02/27/2019 Assessment Noted Time PHQ-9 Depression Total Score: 1 09/13/19 10:02 AM CDT documented as of this encounter Care Teams Flexographic Printing Press Operator Relationship Specialty [place] [address] [place] [address] PCP - General Family Medicine 06/30/22 [place] [address] [facility] [address] [place] [address] Podiatry 10/18/16 [place] [address] [place] [address] Assigned PCP 08/29/20 10/08/23 Maddie Mae Personal Advocate & Liaison (PAL) Family Medicine 12/28/21 Wendy Agustin APRN CALENDER LET OFF HELPER [address] [facility] [address] [place] [address] Assigned PCP 10/09/23 documented as of this encounter
--- OUTSIDE RECORDS SUMMARY | 2023-12-15 02:19 | XMS_ITS | Encounter Summary ---
Author Organization [facility] Address [address] [place] [address] Care Team Providers Care Tradeshow Worker Name Role Phone Edu Crawford DPM Unavailable [phone] Maddie Mae Unavailable Unavailable Enrico Felton DO Primary Care Provider [phone] Wendy Agustin APRN HEAD ANIMAL TRAINER Unavailable [phone] Encounter Details Date Type Department Care Team (Late st Contact Info) Description 10/09/2023 [facility] Medical Advice [address] [address] Melida Pickering, UI ENGINEER Social History Tobacco Use Types Packs/Day [...] How often do you attend sabianist or cheondoism serv ices? Patient declined 02/20/2022 [...] Date Recorded PHQ-2 Score 1 09/13/2023 [facility] [...] PM CDT Appointment [facility] [address] [phone] Kingsley Westbrook DPM [address] [place] [address] documented as of this encounter Goals Goal Patient Goal Type Associated Problems Recent Progress Patient-Stated? Author Financial Wellbeing General Yes Rosey Alexander, CAMERA ASSEMBLER documented as of this encounter Visit Diagnoses Not on filedocumented in this encounter Additional Health Concerns Infection Onset Date Last Indicated Resolved Time MRSA Comment:MRSA at outside facility per 09/01/16 pan pusher note; left foot tissue 10/08/16 10/11/2018 02/27/2019 Assessment Noted Time PHQ-9 Depression Total Score: 1 09/13/19 24 10:02 AM CDT documented as of this encounter Care Teams Tradeshow Worker Relationship Specialty [place] [address] [place] [address] PCP - General Family Medicine 06/30/22 [place] [address] [facility] [address] [place] [address] Podiatry 10/18/16 Maddie Mae Personal Advocate & Liaison (PAL) Family Medicine 12/28/21 Wendy Agustin APRN HEAD ANIMAL TRAINER [address] [facility] [address] [place], [place] [address] Assigned PCP 10/09/23 documented as of this encounter
--- OUTSIDE RECORDS SUMMARY | 2023-12-15 02:19 | XMS_ITS | Encounter Summary ---
Author Organization [facility] Address [address] [place] [address] Care Team Providers Care Plate Maker Zinc Name Role Phone Edu Crawford DPBharath Unavailable [phone] Enrico Felton DO Unavailable [phone] Maddie Mae Unavailable Unavailable Enrico Felton DO Primary Care Provider [phone] Wendy Agustin APRN STEAM DISTRIBUTION SUPERVISOR Unavailable [phone] Encounter Details Date Type Department Care Team (Late st Contact Info) Description 09/28/2023 [facility] Medical Advice [address] [address] Melida Pickering, LANGUAGE TEACHER Social History Tobacco Use Types Packs/Day Years [...] Never 02/20/2022 How often do you attend denominational or advent serv ices? Patient declined 02/20/2022 Do you belong to any clubs o r organizations such as denominational groups, unions, fraternal or athletic groups, or [...] Score 1 09/13/2023 [facility] ional [facility] - Occupational Stress Questionnaire Answer Date [...] Info) Description 12/21/2023 2:00 PM CDT Appointment [facility] [address] [place] [phone] Kingsley Westbrook DPM [address] [place], [place] [address] documented as of this encounter Goals Goal Patient Goal Type Associated Problems Recent Progress Patient-Stated? Author Financial Wellbeing General Yes Rosey Alexander, SHEAR SETTER documented as of this encounter Visit Diagnoses Not on filedocumented in this encounter Additional Health Concerns Infection Onset Date Last Indicated Resolved Time MRSA Comment:MRSA at outside facility per 09/01/16 cutter apprentice hand note; left foot tissue 10/08/16 10/11/2018 02/27/2019 Assessment Noted Time PHQ-9 Depression Total Score: 1 09/13/19 24 10:02 AM CDT documented as of this encounter Care Teams Plate Maker Zinc Relationship Specialty [place] [address] [place] [address] PCP - General Family Medicine 06/30/22 [place] [address] [facility] [address] [place], [place] [address] Podiatry 10/18/16 [place] [address] [place], [place] [address] Assigned PCP 08/29/20 10/08/23 Maddie Mae Personal Advocate & Liaison (PAL) Family Medicine 12/28/21 Wendy Agustin APRN [facility] [address] [place] [address] Assigned PCP 10/09/23 documented as of this encounter
--- OUTSIDE RECORDS SUMMARY | 2023-12-15 02:19 | XMS_ITS | Encounter Summary ---
Author Organization [facility] Address [address] [place] [address] Care Team Providers Care Typewriter Tester Name Role Phone Edu Crawford DPBharath Unavailable [phone] Maddie Mae Unavailable Unavailable Enrico Felton DO Primary Care Provider [phone] Wendy Agustin APRN GLASS INSTALLER TECHNICIAN Unavailable [phone] Reason for Referral * Diagnostic Imaging CT Scan (Routine) - Pending Review Specialty Diagnoses / Procedures Referred By Andrés zaman Referred To Contact Radiology. Diagnoses Tobacco use disorder Nicotine dependence, cigarettes, with unspecified nicotine-induced disorders Procedures CT Chest Lung Cancer Screen [place] [address] [place] [address] Referral ID Status Reason Start Date Expiration Date V isits Requested Visits Authorized [id number] Pending Review 11/28/2023 11/27/2024 1 1 * Diagnostic Imaging Mammo (Routine) - Pending Review Specialty Diagnoses / Procedures Referred By Andrés zaman Referred To Contact Radiology. Diagnoses Visit for screening mammogram Procedures MA Screening Bilateral w/ [place] [address] [place] [address] Referral ID Status Reason Start Date Expiration Date V isits Requested Visits Authorized [id number] Pending Review 11/28/2023 11/27/2024 1 1 Reason for Visit * Reason Onset Date Comments Medicare Visit Imm/Inj 11/28/2023 Flu Shot Encounter Details Date Type Department Care Team (Latest Contact Info) Description 11/28/2023 2:00 PM CDT Office Visit [facility] [address] [place] [phone] [place] [address] [place] [address] Encounter for Medicare annual wellness exam (Primary [...] re latives? Once a week 11/28/2023 Attends Scientology Services Not on file 11/27 Active Member [...] Answer Date Recorded PHQ-2 Score 1 11/28/2023 [facility] of Occupat ional [facility] - Occupational Stress Questionnaire Answer Date [...] vaccinations you are due for through the [place] Immunization Information Connection database. Patient Education Preventive [...] foods and aim for 100% of the FABRIC WORKER SUPERVISOR (recommendeddaily allowance). Lifestyle Exercise at least 150 [...] . For help making a decision, visit: https://bit.ly/zv33660. Prostate cancer screening test: If you have [...] your health care provider. Copyright ?? 2022 [place] [facility] [employer]. All rights reserved. Clinically reviewed by the [employer] [place] [facility]. [facility] [id number] - REV 04/11. Bladder Training: Care Instructions [...] Where can you learn more? Go to https://www.OLED-T.net/patiented Enter V684 in the search box to learn more about Bladder Training: Care Instructions. Current as of: January 31, 2023?Content Version: 14.0 ?? [employer]. Care instructions adapted under license by your healthcare professional. If you have questions about a medical condition or this instruction, always ask your healthcare professional. [employer] disclaims any warranty or liability for your use of this information. documented in this encounter Progress Notes * Enrico Felton DO - 11/28/2023 2:00 PM CDT Images from the original note were not included. Preventive Care Visit [facility] Enrico Felton DO, Family Medicine Nov 28, [...] - INFLUENZA VACCINE TRIVALENT(FLUBLOK) Thyroid nodule Amy Sahh is a 62 year old, presenting for [...] Other HR HPV NEG Negative ASCVD Risk Bacteriologist Dairy The 10-year ASCVD risk score (Patrick MARQUIS, [...] suboxone through Jorge Yan who works in [facility]. She plans on stopping going to her [...] masses or organomegaly. Bowel sounds are normal. SUPERVISOR TYPE PHOTOGRAPHY exam: Declined by patient, who states she [...] 2:00 PM CDT Mailed results [employer]/ Operating System Programmer documented in this encounter Plan of Treatment Upcoming Encounters Date Type Department Care Team (Late st Contact Info) Description 12/21/2023 2:00 PM CDT Appointment [address] [place] [address] Kingsley Westbrook DPM [address] [place] [address] Scheduled Orders Name Type Priority [...] LAB - BLOOD ORDERABL ES [facility] LAB[facility]ATORY [facility] [address] [facility] (no room number, 1st floor of clinic) [place] [address] * (ABNORMAL) Basic metabolic panel (11/28/2023 [...] BLOOD ORDERABL ES [facility]AT[facility] [address] [facility], Room [address] [place] [address], [facility] * (ABNORMAL) Lipid panel reflex to [...] BLOOD ORDERABL ES [facility] [address] [facility], [address] [address] documented in this encounter Visit Diagnoses [...] MRSA Comment:MRSA at outside facility per 09/01/16 grinding and spraying supervisor note; left foot tissue 10/08/16 10/11/2018 02/27/2019 Assessment Noted Time PHQ-9 Depression Total Score: 1 11/28/19 24 1:52 PM CDT documented as of this encounter Care Teams Typewriter Tester Relationship Specialty [place] [address] [place] [address] PCP - General Family Medicine 06/30/22 [place] Crawford D[place] [address] [facility] [address] [place], [place] [phone] Podiatry 10/18/16 Maddie Mae Personal Advocate & Liaison (PAL) Family Medicine 12/28/21 Wendy Agustin APRN [facility] [address] [facility] [address] [place], [place] [address] Assigned PCP 10/09/23 documented as of this encounter
--- OUTSIDE RECORDS SUMMARY | 2023-12-15 02:19 | XMS_ITS | Encounter Summary ---
Author Organization [facility] Address [address] [place] [address] Care Team Providers Care General Intern Name Role Phone Edu Crawford DPBharath Unavailable [phone] Maddie Mae Unavailable Unavailable Enrico Felton DO Primary Care Provider [phone] Wendy Agustin APRN FEDERAL DISTRICT CLERK Unavailable [phone] Reason for Referral * Diagnostic Imaging Ultrasound (Routine) - Pending Review Specialty Diagnoses / Procedures Referred By Contac t Referred To Contact Radiology. 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) Procedures US MCKAYLA Doppler No Exercise 1-2 Levels Right Andreas Montenegro APRN FEDERAL DISTRICT CLERK [address] [place] [address] Referral ID Status Reason Start Date Expiration Date V isits Requested Visits Authorized [id number] Pending Review 11/14/2023 11/13/2024 1 1 Encounter Details Date Type Department Care Team (Latest Contact Info) Description 11/26/2023 1:53 PM CDT - 11/26/2023 11:59 PM CDT Hospital Encounter [facility] [address] [facility] [address] [place] [address] Andreas Montenegro W, PUBLIC OPINION SURVEY TAKER FEDERAL DISTRICT CLERK [address] [place] [address] Neuropathic ulcer of right foot with fat [...] How often do you attend jain or episcopalian serv ices? Patient declined 02/20/2022 Do you [...] Answer Date Recorded PHQ-2 Score 1 09/13/2023 [facility] - Occupational Stress Questionnaire Answer [...] tablet 11/14/2023 PARoxetine (PAXIL) 30 MG tabletIndications:Health Alf,Anxiety and depression Take 2 tablets (60 mg) [...] 02/20/2022 11/28/2023 pregabalin (LYRICA) 150 MG capsuleIndications:[facility] Take 1 capsule (150 mg) by [...] [facility] [address] [place] [address] Kingsley Westbrook, DPBharath [address] [place], [place] [address] documented as of this encounter Goals Goal Patient Goal Type Associated Problems Recent Progress Patient-Stated? Author Financial Wellbeing General Yes Rosey Alexander, COOLER OPERATOR documented as of this encounter Procedures Procedure [...] MORTON MD Narrative 11/26/2023 2:44 PM CDT [facility] DATE: 11/26/2023 EXAM: RESTING ANKLE-BRACHIAL INDICES [...] Procedure Note Jez Morton MD - 11/26/2023 [facility] DATE: 11/26/2023 EXAM: RESTING ANKLE-BRACHIAL INDICES [...] waveforms. 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) documented in this encounter Additional Health Concerns Infection Onset Date Last Indicated Resolved Time MRSA Comment:MRSA at outside facility per 09/01/16 microsoft net developer note; left foot tissue 10/08/16 10/11/2018 02/27/2019 Assessment Noted Time PHQ-9 Depression Total Score: 1 09/13/19 24 10:02 AM CDT documented as of this encounter Care Teams General Intern Relationship Specialty [place] [address] [place] [address] PCP - General Family Medicine 06/30/22 Edu Crawford D[place] [address] [facility] [address] [place], [place] [id number] Podiatry 10/18/16 Maddie Mae Personal Advocate & Liaison (PAL) Family Medicine 12/28/21 Wendy Agustin APRN FEDERAL DISTRICT CLERK [address] [place], [place] [address] Assigned PCP 10/09/23 documented as of this encounter
--- OUTSIDE RECORDS SUMMARY | 2023-12-15 02:20 | XMS_ITS | Encounter Summary ---
Author Organization [facility] Address [address] [place] [address] Care Team Providers Care Medical Records Assistant Name Role Phone MirandacliftonEdu DPM Unavailable [phone] Enrico Felton DO Primary Care Provider [phone] Enrico Felton DO Unavailable [phone] Maddie Mae Unavailable Unavailable No Ref-Primary, Physician Primary Care Provider Enrico Felton DO Primary Care Provider [phone] Aydee Mcgill RN Unavailable [phone] Wendy Agustin PLANISHER CHIEF CLINICAL OFFICER Unavailable [phone] Encounter Details Date Type Department Care Team (Late st Contact Info) Description 01/20/2022 [facility] Medical Advice [address] [address] [employer] Social History Tobacco Use Types [...] 12/21/2023 2:00 PM CDT Appointment [facility] [place] [address] [place] [phone] Kingsley Westbrook DPM [address] [place] [address] documented as of this encounter Goals Goal Patient Goal Type Associated Problems Recent Progress Patient-Stated? 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 facility per 09/01/16 structures mechanic note; left foot tissue 10/08/16 10/11/2018 02/27/2019 Assessment Noted Time PHQ-9 Depression Total Score: 3 08/24/19 21 12:19 PM CDT documented as of this encounter Care Teams Medical Records Assistant Relationship Specialty Start [place] [address] [place] [address] PCP - General Family Medicine 08/24/20 01/23/22 No Ref-Primary, Physician PCP - General 02/20/22 06/29/22 [place] [address] [facility] [place] [address] PCP - General Family Medicine 06/30/22 [place] [address] [facility] [address] [place] [address] Podiatry 10/18/16 [place] [address] [place] [address] Assigned PCP 08/29/20 10/08/23 Maddie Mae Personal Advocate & Liaison (PAL) Family Medicine 12/28/21 Aydee Mcgill RN RN Clinical Product Navigator Primary Care - CC 06/30/22 06/30/22 Wendy Agustin APRN [facility] [address] [facility] [address] [place] [address] Assigned PCP 10/09/23 documented as of this encounter
--- OUTSIDE RECORDS SUMMARY | 2023-12-15 02:20 | XMS_ITS | Encounter Summary ---
Author Organization [facility] Address [address] [place] [address] Care Team Providers Care Training Manager Name Role Phone Edu Crawford DPM Unavailable [phone] Enrico Felton DO Unavailable [phone] Maddie Mae Unavailable Unavailable Enrico Felton DO Primary Care Provider [phone] Wedny Agustin APRN OLIVE PITTER Unavailable [phone] Encounter Details Date Type Department Care Team (Late st Contact Info) Description 12/26/2022 [facility] Medical Advice [address] [address] Melida Pickering, CORE STRIPPER Social History Tobacco Use Types Packs/Day Years [...] How often do you attend sikhism or mandaeism serv ices? Patient declined 02/20/2022 Do you [...] Answer Date Recorded PHQ-2 Score 1 02/20/2022 [facility] Occupat ional Health - [...] CDT Appointment [facility] [place] [address] [place] [address] [address] [place] [address] Kingsley Westbrook DPM [address] [place] [address] documented as of this encounter Goals Goal Patient Goal Type Associated Problems Recent Progress Patient-Stated? Author Financial Wellbeing General Yes Rosey Alexander, DRESSMAKER HELPER documented as of this encounter Visit Diagnoses Not on filedocumented in this encounter Additional Health Concerns Infection Onset Date Last Indicated Resolved Time MRSA Comment:MRSA at outside facility per 09/01/16 spool tender note; left foot tissue 10/08/16 10/11/2018 02/27/2019 Assessment Noted Time PHQ-9 Depression Total Score: 5 02/21/20 22 2:07 PM LOSS PREVENTION INVESTIGATOR documented as of this encounter Care Teams Training Manager Relationship Specialty Start [place] [address] [place] [address] PCP - General Family Medicine 06/30/22 [place] [address] [facility] [address] [place] [address] Podiatry 10/18/16 [place] [address] [place] [address] Assigned PCP 08/29/20 10/08/23 Maddie Mae Personal Advocate & Liaison (PAL) Family Medicine 12/28/21 Wendy Agustin APRN [facility] [address] [facility] [address] [place] [address] Assigned PCP 10/09/23 documented as of this encounter
--- OUTSIDE RECORDS SUMMARY | 2023-12-15 02:20 | XMS_ITS | Encounter Summary ---
Author Organization [place] Address [address] [place] [address]. [place] [address] Care Team Providers Care Sports Physical Therapist Name Role Phone Edu Crawford DPBharath Unavailable [phone] Enrico Felton DO Unavailable Maddie Mae Unavailable Unavailable Enrico Felton DO Primary Care Provider [phone] Wendy Agustin APRN ROLLER HELPER Unavailable [phone] Encounter Details Date Type Department Care Team (Late st Contact Info) Description 01/23/2023 [facility] Medical Advice [facility] [address] 4th [place] [address] Chelsi Flores, RN Social History [...] Never 02/20/2022 How often do you attend worship or islam serv ices? Patient declined 02/20/2022 Do you belong to any clubs o r organizations such as worship groups, unions, fraternal or athletic groups, or [...] Answer Date Recorded PHQ-2 Score 1 02/20/2022 [facility]at ional Health - Occupational [...] CDT Appointment [facility] [place] [address] [place] [address] [address] [place] [address] Kingsley Westbrook DPM 420 [place] [address] documented as of this encounter Goals Goal Patient Goal Type Associated Problems Recent Progress Patient-Stated? Author Financial Wellbeing General Yes Rosey Alexander, E M ASSEMBLER documented as of this encounter Visit Diagnoses Not on filedocumented in this encounter Additional Health Concerns Infection Onset Date Last Indicated Resolved Time MRSA Comment:MRSA at outside facility per 09/01/16 lathe operator contact lens note; left foot tissue 10/08/16 10/11/2018 02/27/2019 Assessment Noted Time PHQ-9 Depression Total Score: 5 02/21/20 22 2:07 PM QUALITY MANAGEMENT NURSE documented as of this encounter Care Teams Sports Physical Therapist Relationship Specialty [place] [address] [place] [address] PCP - General Family Medicine 06/30/22 [place] [address] [facility] [address] [place] [address] Podiatry 10/18/16 [place] [address] [place] [address] Assigned PCP 08/29/20 10/08/23 Maddie Mae Personal Advocate & Liaison (PAL) Family Medicine 12/28/21 Wendy Agustin APRN ROLLER HELPER [address] [facility] [address] [place] [address] Assigned PCP 10/09/23 documented as of this encounter
--- OUTSIDE RECORDS SUMMARY | 2023-12-15 02:20 | XMS_ITS | Encounter Summary ---
Author Organization [place] Address [address] [place] [address] Care Team Providers Care Dust Collector Operator Name Role Phone Edu Crawford DPM Unavailable Enrico Felton DO Unavailable [phone] Maddie Mae Unavailable Unavailable No Ref-Primary, Physician Primary Care Provider Enrico Felton DO Primary Care Provider [phone] Aydee Mcgill RN Unavailable [phone] Wendy Agustin APRN BUSINESS DIRECTOR Unavailable [phone] Encounter Details Date Type Department Care Team (Late st Contact Info) Description 06/01/2022 [facility] Medical Advice [address] [address] [facility] [place] Social History Tobacco Use Types [...] How often do you attend synagogue or yarsanism serv ices? Patient declined 02/20/2022 Do you [...] Info) Description 12/21/2023 2:00 PM CDT Appointment [facility] [place] [address] [place] [address] [address] [place] [address] Kingsley Westbrook DPM [address] [place], [place] [address] documented as of this encounter Goals Goal Patient Goal Type Associated Problems Recent Progress Patient-Stated? Author Financial Wellbeing General Yes Rosey Alexander, INTERSTATE BUS DRIVER documented as of this encounter Visit Diagnoses Not on filedocumented in this encounter Additional Health Concerns Infection Onset Date Last Indicated Resolved Time MRSA Comment:MRSA at outside facility per 09/01/16 brokerage clerk note; left foot tissue 10/08/16 10/11/2018 02/27/2019 Assessment Noted Time PHQ-9 Depression Total Score: 5 02/21/20 22 2:07 PM CHEMISTRY PROFESSOR documented as of this encounter Care Teams Dust Collector Operator Relationship Specialty Start Date End Date No Ref-Primary, Physician PCP - General 02/20/22 06/29/22 [place] [address] [place] [address] PCP - General Family Medicine 06/30/22 [place] [address] [facility] [address] [place] [address] Podiatry 10/18/16 [place] [address] [place] [address] Assigned PCP 08/29/20 10/08/23 Maddie Mae Personal Advocate & Liaison (PAL) Family Medicine 12/28/21 Aydee Mcgill RN ROQUE Clinical Product Navigator Primary Care - CC 06/30/22 06/30/22 Wendy Agustin APRN BUSINESS DIRECTOR [address] [facility] [address] [place] [address] Assigned PCP 10/09/23 documented as of this encounter
--- OUTSIDE RECORDS SUMMARY | 2023-12-15 02:20 | XMS_ITS | Encounter Summary ---
Author Organization [place] Address [address] [place] [address]. [place] [address] Care Team Providers Care Torch Straightener Name Role Phone Edu Crawford DPM Unavailable [phone] Enrico Felton DO Unavailable [phone] Maddie Mae Unavailable Unavailable No Ref-Primary, Physician Primary Care Provider Enrico Felton DO Primary Care Provider Aydee Mcgill RN Unavailable [phone] Wendy Agustin APRN LOGISTICS MANAGER Unavailable Reason for Visit * Reason Onset Date Comments Refill Request 06/01/2022 omeprazole (PRIL OSEC) [address] capsule Encounter Details Date Type Department Care Team (Late st Contact Info) Description 06/01/2022 Telephone [facility] [address] [place] [address] [place] [address] [place] [address] Refill Request (omeprazole (PRILOSEC) 40 [...] How often do you attend yarsani or yazidi serv ices? Patient declined 02/20/2022 [...] Answer Date Recorded PHQ-2 Score 1 02/20/2022 [facility] - Occupational [...] in a assisted (including now)? No 02/20/2022 Sex and Gender Information Value Date Recorded Sex Assigned at Not on file Gender Identity Not on file Sexual Orientation Not on file documented as of this encounter Miscellaneous Notes * Telephone Encounter - [facility] - 06/01/2022 1:55 PM CDT extraTKT message sent to patient to schedule [facility]/ Business Center Representative * Telephone Encounter - Ángela Hernández RN [...] Info) Description 12/21/2023 2:00 PM CDT Appointment [facility] [place] [address] [place] [address] [address] [place] [address] Kingsley Westbrook DPM 420 [place] [address] documented as of this encounter Goals Goal Patient Goal Type Associated Problems Recent Progress Patient-Stated? Author Financial Wellbeing General Yes Rosey Alexander, TERRAZZO JOURNEYMAN documented as of this encounter Visit Diagnoses Not on filedocumented in this encounter Additional Health Concerns Infection Onset Date Last Indicated Resolved Time MRSA Comment:MRSA at outside facility per 09/01/16 piercing machine operator note; left foot tissue 10/08/16 10/11/2018 02/27/2019 Assessment Noted Time PHQ-9 Depression Total Score: 5 02/21/20 2:07 PM TABLE OPERATOR documented as of this encounter Care Teams Torch Straightener Relationship Specialty Start Date End Date No Ref-Primary, Physician PCP - General 02/20/22 06/29/22 [place] [address] [place] [address] PCP - General Family Medicine 06/30/22 [place] [address] [facility] [address] [place] [address] Podiatry 10/18/16 [place] [address] [place] [address] Assigned PCP 08/29/20 10/08/23 Maddie Mae Personal Advocate & Liaison (PAL) Family Medicine 12/28/21 Aydee Mcgill RN ROQUE Clinical Product Navigator Primary Care - CC 06/30/22 06/30/22 Wendy Agustin APRN LOGISTICS MANAGER [address] [facility] [address] [place] [address] Assigned PCP 10/09/23 documented as of this encounter
--- OUTSIDE RECORDS SUMMARY | 2023-12-15 02:20 | XMS_ITS | Encounter Summary ---
Author Organization [place] Address [address] [place] [address] Care Team Providers Care Coil Maker Name Role Phone Edu Crawford DPBharath Unavailable [phone] Enrico Felton DO Unavailable [phone] Maddie Mae Unavailable Unavailable Enrico Felton DO Primary Care Provider [phone] Wendy Agustin APRN HVAC OPERATIONS TECHNICIAN Unavailable [phone] Encounter Details Date Type Department Care Team (Late st Contact Info) Description 07/25/2022 [facility] Medical Advice [address] [address] [place] Social History Tobacco [...] How often do you attend confucianism or taoist serv ices? Patient declined 02/20/2022 [...] Answer Date Recorded PHQ-2 Score 1 02/20/2022 [facility] Occupat ional Health [...] health care facility (including now)? No 02/20/2022 Sex and Gender Information Value Date Recorded Sex Assigned at Not on file Gender Identity Not on file Sexual Orientation Not on file documented as of this encounter Plan of Treatment Upcoming Encounters Date Type Department Care Team (Late st Contact Info) Description 12/21/2023 2:00 PM CDT Appointment [facility] [place] [address] [place] [address] [address] [place] [address] Kingsley Westbrook DPM [address] [place], [place] [address] documented as of this encounter Goals Goal Patient Goal Type Associated Problems Recent Progress Patient-Stated? Author Financial Wellbeing General Yes Rosey Alexander, ROLL HAND documented as of this encounter Visit Diagnoses Not on filedocumented in this encounter Additional Health Concerns Infection Onset Date Last Indicated Resolved Time MRSA Comment:MRSA at outside facility per 09/01/16 patrol captain note; left foot tissue 10/08/16 10/11/2018 02/27/2019 Assessment Noted Time PHQ-9 Depression Total Score: 5 02/21/20 22 2:07 PM LICENSING REPRESENTATIVE documented as of this encounter Care Teams Coil Maker Relationship Specialty [place] [address] [place] [address] PCP - General Family Medicine 06/30/22 [place] D[place] [address] [facility] [address] [place] [address] Podiatry 10/18/16 [place] [address] [place] [address] Assigned PCP 08/29/20 10/08/23 Maddie Mae Personal Advocate & Liaison (PAL) Family Medicine 12/28/21 Wendy Agustin APRN [facility] [address] [place] [address] Assigned PCP 10/09/23 documented as of this encounter
--- OUTSIDE RECORDS SUMMARY | 2023-12-15 02:20 | XMS_ITS | Encounter Summary ---
Author Organization [place] Address [address] [place] [address]. [place] [address] Care Team Providers Care Ankle Patch Molder Name Role Phone Edu Crawford DPM Unavailable Enrico Felton DO Unavailable [phone] Maddie Mae Unavailable Unavailable No Ref-Primary, Physician Primary Care Provider Enrico Felton DO Primary Care Provider Aydee Mcgill RN Unavailable [phone] Wendy Agustin APRN CIGAR HEAD PUNCHER Unavailable [phone] Reason for Visit * Reason Onset Date Comments Refill Request 06/23/2022 oxybutynin ER (D ITROPAN XL) 5 MG 24 hr tablet Encounter Details Date Type Department Care Team (Late st Contact Info) Description 06/23/[address] [facility] [address] [place] [address] [place] [address] [place] [place] [address] Refill Request (oxybutynin ER (DITROPAN XL) [...] How often do you attend mandaen or confucianist serv ices? Patient declined 02/20/2022 Do you [...] Answer Date Recorded PHQ-2 Score 1 02/20/2022 [facility]ational Stress Questionnaire [...] to same recorded line. Has not read MobileReactor message. We have now made 5 attempts [...] if it a work number for Alyssa. MobileRe[employer] message sent. Katie Velasquez R.N. * Telephone [...] CDT Appointment [facility] [place] [address] [place] [address] Kingsley Westbrook DPM [address] [place] [address] documented as of this encounter Goals Goal Patient Goal Type Associated Problems Recent Progress Patient-Stated? Author Financial Wellbeing General Yes Rosey Alexander, MACHINE COIL ASSEMBLER documented as of this encounter Visit Diagnoses Not on filedocumented in this encounter Additional Health Concerns Infection Onset Date Last Indicated Resolved Time MRSA Comment:MRSA at outside facility per 09/01/16 learning officer note; left foot tissue 10/08/16 10/11/2018 02/27/2019 Assessment Noted Time PHQ-9 Depression Total Score: 5 02/21/20 22 2:07 PM CLERICAL SUPPORT documented as of this encounter Care Teams Ankle Patch Molder Relationship Specialty Start Date End Date No Ref-Primary, Physician PCP - General 02/20/22 06/29/22 [place] [address] [place] [address] PCP - General Family Medicine 06/30/22 [place] [address] [facility] [address] [place] [address] Podiatry 10/18/16 [place] [address] [place] [address] Assigned PCP 08/29/20 10/08/23 Maddie Mae Personal Advocate & Liaison (PAL) Family Medicine 12/28/21 Aydee Mcgill RN RN Clinical Product Navigator Primary Care - CC 06/30/22 06/30/22 Wendy Agustin APRN CIGAR HEAD PUNCHER [address] [place] [address] Assigned PCP 10/09/23 documented as of this encounter
--- OUTSIDE RECORDS SUMMARY | 2023-12-15 02:20 | XMS_ITS | Encounter Summary ---
Author Organization [place] Address [address] [place] [address] Care Team Providers Care Subscription Agent Name Role Phone MirandacliftonEdu DPM Unavailable [phone] Enrico Felton DO Primary Care Provider [phone] Enrico Felton DO Unavailable [phone] Magdalena Brice Unavailable Unavailable Maddie Mae Unavailable Unavailable No Ref-Primary, Physician Primary Care Provider Enrico Felton DO Primary Care Provider [phone] Aydee Mcgill RN Unavailable [phone] Wendy Agustin GOLF CLUB WEIGHER VEHICLE TRIMMER Unavailable [phone] Encounter Details Date Type Department Care Team (Late st Contact Info) Description 10/20/2021 [facility] Medical Advice [address] [place] [address] Melida Pickering, CAKE BATTER MIXER Social History Tobacco Use Types Packs/Day Years [...] CDT Appointment [facility] [place] [address] [place] [address] [address] [place] [address] Kingsley Westbrook DPM [address] [place] [address] documented as of this encounter Goals Goal Patient Goal Type Associated Problems Recent Progress Patient-Stated? Author Financial Wellbeing General Yes Rosey Alexander, LEAD BURNER SUPERVISOR documented as of this encounter Visit Diagnoses Not on filedocumented in this encounter Additional Health Concerns Infection Onset Date Last Indicated Resolved Time MRSA Comment:MRSA at outside facility per 09/01/16 peace officer note; left foot tissue 10/08/16 10/11/2018 02/27/2019 Assessment Noted Time PHQ-9 Depression Total Score: 3 08/24/19 21 12:19 PM CDT documented as of this encounter Care Teams Subscription Agent Relationship Specialty [place] [address] [place] [address] PCP - General Family Medicine 08/24/20 01/23/22 No Ref-Primary, Physician PCP - General 02/20/22 06/29/22 [place] [address] [place] [address] PCP - General Family Medicine 06/30/22 [place] [address] [facility] [facility] [address] [place] [address] Podiatry 10/18/16 [place] [address] [place] [address] Assigned PCP 08/29/20 10/08/23 Magdalena Brice Personal Advocate & Liaison (PAL) 11/14/21 12/27/21 Maddie Mae Personal Advocate & Liaison (PAL) Family Medicine 12/28/21 Aydee Mcgill RN RN Clinical Product Navigator Primary Care - CC 06/30/22 06/30/22 Wendy Agustin APRN VEHICLE TRIMMER [address] [facility] [address] [place] [address] Assigned PCP 10/09/23 documented as of this encounter
--- OUTSIDE RECORDS SUMMARY | 2023-12-15 02:20 | XMS_ITS | Encounter Summary ---
Author Organization [place] Address [address] [place] [address] Care Team Providers Care Director Physical Name Role Phone MirandacliftonEdu DPM Unavailable [phone] Enrico Felton DO Primary Care Provider [phone] Enrico Felton DO Unavailable [phone] Magdalena Brice Unavailable Unavailable Maddie Mae Unavailable Unavailable No Ref-Primary, Physician Primary Care Provider Enrico Felton DO Primary Care Provider [phone] Aydee Mcgill RN Unavailable [phone] Wendy Agustin TELETYPE TECHNICIAN METAL CNC OPERATOR Unavailable [phone] Encounter Details Date Type Department Care Team (Late st Contact Info) Description 10/20/2021 [facility] Medical Advice [facility] [address] [place] [address] Melida Pickering, PRESS BOX CUSTODIAN Social History Tobacco Use Types Packs/Day Years [...] CDT Appointment [facility] [place] [address] [place] [address] [address] [place] [phone] Kingsley Westbrook DPM [address] [place] [address] documented as of this encounter Goals Goal Patient Goal Type Associated Problems Recent Progress Patient-Stated? Author Financial Wellbeing General Yes Rosey Alexander, HEAVY EQUIPMENT SALES MANAGER documented as of this encounter Visit Diagnoses Not on filedocumented in this encounter Additional Health Concerns Infection Onset Date Last Indicated Resolved Time MRSA Comment:MRSA at outside facility per 09/01/16 vehicle maintenance technician note; left foot tissue 10/08/16 10/11/2018 02/27/2019 Assessment Noted Time PHQ-9 Depression Total Score: 3 08/24/19 21 12:19 PM CDT documented as of this encounter Care Teams Director Physical Relationship Specialty [place] [address] [place] [address] PCP - General Family Medicine 08/24/20 01/23/22 No Ref-Primary, Physician PCP - General 02/20/22 06/29/22 [place] [address] [place] [address] PCP - General Family Medicine 06/30/22 [place] [address] [facility] [address] [place] [address] Podiatry 10/18/16 [place] [address] [place] [address] Assigned PCP 08/29/20 10/08/23 Magdalena Brice Personal Advocate & Liaison (PAL) 11/14/21 12/27/21 Maddie Mae Personal Advocate & Liaison (PAL) Family Medicine 12/28/21 Aydee Mcgill, RN RN Clinical Product Navigator Primary Care - CC 06/30/22 06/30/22 Wendy Agustin APRN METAL CNC OPERATOR [address] [facility] [address] [place] [address] Assigned PCP 10/09/23 documented as of this encounter
--- OUTSIDE RECORDS SUMMARY | 2023-12-15 02:20 | XMS_ITS | Encounter Summary ---
Author Organization [place] Address [address] [place] [address] Care Team Providers Care Sponsorship Coordinator Name Role Phone Mirandaclifton Edu DPM Unavailable [phone] Enrico Felton DO Unavailable [phone] Maddie Mae Unavailable Unavailable Enrico Felton DO Primary Care Provider [phone] Aydee Mcgill RN Unavailable [phone] Wendy Agustin APRN AUDIOVISUAL PRODUCTION SPECIALIST Unavailable [phone] Encounter Details Date Type Department Care Team (Late st Contact Info) Description 06/30/2022 [facility] Coordination [address] [place] [address] Aydee Mcgill, RN Social History Tobacco [...] How often do you attend sikhism or mormonism serv ices? Patient declined 02/20/2022 Do you [...] Date Recorded PHQ-2 Score 1 02/20/2022 [facility] of Occupat ional [facility] - Occupational Stress Questionnaire Answer [...] Info) Description 12/21/2023 2:00 PM CDT Appointment [facility] [address] [place] [address] Kingsley Westbrook DPM [address] [place], [place] [address] documented as of this encounter Goals Goal Patient Goal Type Associated Problems Recent Progress Patient-Stated? Author Financial Wellbeing General Yes Rosey Alexander, LINE ERECTOR APPRENTICE documented as of this encounter Visit Diagnoses Not on filedocumented in this encounter Additional Health Concerns Infection Onset Date Last Indicated Resolved Time MRSA Comment:MRSA at outside facility per 09/01/16 cigar head puncher note; left foot tissue 10/08/16 10/11/2018 02/27/2019 Assessment Noted Time PHQ-9 Depression Total Score: 5 02/21/20 22 2:07 PM MECHANICAL MAINTENANCE INSTRUCTOR documented as of this encounter Care Teams Sponsorship Coordinator Relationship Specialty [place] [address] [place] [address] PCP - General Family Medicine 06/30/22 [place] [address] [facility] [address] [place] [address] Podiatry 10/18/16 [place] [address] [place] [address] Assigned PCP 08/29/20 10/08/23 Maddie Mae Personal Advocate & Liaison (PAL) Family Medicine 12/28/21 Aydee Mcgill RN ROQUE Clinical Product Navigator Primary Care - CC 06/30/22 06/30/22 Wendy Agustin APRN AUDIOVISUAL PRODUCTION SPECIALIST [address] [facility] [address] [place] [address] Assigned PCP 10/09/23 documented as of this encounter
--- OUTSIDE RECORDS SUMMARY | 2023-12-15 02:20 | XMS_ITS | Encounter Summary ---
Author Organization [place] Address [address] [place] [address] Care Team Providers Care Equal Employment Opportunity Officer Name Role Phone MirandacliftonEdu DPM Unavailable Enrico Felton DO Unavailable [phone] Maddie Mae Unavailable Unavailable No Ref-Primary, Physician Primary Care Provider Enrico Felton DO Primary Care Provider [phone] Aydee Mcgill RN Unavailable [phone] Wendy Agustin APRN TRUCK RENTAL SERVICE ATTENDANT Unavailable [phone] Encounter Details Date Type Department Care Team (Late st Contact Info) Description 03/23/2022 [facility] Medical Advice [address] [address] Melida Pickering, JAYCEE Social History Tobacco Use [...] How often do you attend pentecostalism or denominational serv ices? Patient declined 02/20/2022 Do you [...] Date Recorded PHQ-2 Score 1 02/20/2022 [facility]at ional [facility] - Occupational Stress Questionnaire Answer Date [...] Info) Description 12/21/2023 2:00 PM CDT Appointment [facility] [address] [place] [address] Kingsley Westbrook DPM [address] [place], [place] [address] documented as of this encounter Goals Goal Patient Goal Type Associated Problems Recent Progress Patient-Stated? 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 per 09/01/16 area representative note; left foot tissue 10/08/16 10/11/2018 02/27/2019 Assessment Noted Time PHQ-9 Depression Total Score: 5 02/21/20 22 2:07 PM CLAIMS ADMINISTRATOR documented as of this encounter Care Teams Equal Employment Opportunity Officer Relationship Specialty Start Date End Date No Ref-Primary, Physician PCP - General 02/20/22 06/29/22 [place] [address] [place] [address] PCP - General Family Medicine 06/30/22 [place] [address] [facility] [address] [place] [address] Podiatry 10/18/16 [place] [address] [place] [address] Assigned PCP 08/29/20 10/08/23 Maddie Mae Personal Advocate & Liaison (PAL) Family Medicine 12/28/21 Aydee Mcgill RN ROQUE Clinical Product Navigator Primary Care - CC 06/30/22 06/30/22 Wendy Agustin APRN TRUCK RENTAL SERVICE ATTENDANT [address] [place] [address] Assigned PCP 10/09/23 documented as of this encounter
--- OUTSIDE RECORDS SUMMARY | 2023-12-15 02:20 | XMS_ITS | Encounter Summary ---
Author Organization [place] Address [address] [place] [address] Care Team Providers Care Cinder Pit Worker Name Role Phone Shermannoah Edu DPM Unavailable Enrico Felton DO Unavailable [phone] Maddie Mae Unavailable Unavailable No Ref-Primary, Physician Primary Care Provider Enrico Felton DO Primary Care Provider [phone] Aydee Mcgill RN Unavailable [phone] Wendy Agustin APRN DINING ROOM MAID Unavailable [phone] Encounter Details Date Type Department Care Team (Late st Contact Info) Description 06/26/2022 My[facility] Medical Advice [address] [address] Katie Velasquez, ROQUE Social History [...] Never 02/20/2022 How often do you attend latter-day or hoahaoism serv ices? Patient declined 02/20/2022 Do you belong to any clubs o r organizations such as latter-day groups, unions, fraternal or athletic groups, or [...] [facility] [...] [facility] [address] [place] [address] Kingsley Westbrook DPM [address] [place] [address] documented as of this encounter Goals Goal Patient Goal Type Associated Problems Recent Progress Patient-Stated? Author Financial Wellbeing General Yes Rosey Alexander, AIRLINE PILOT FLIGHT INSTRUCTOR documented as of this encounter Visit Diagnoses Not on filedocumented in this encounter Additional Health Concerns Infection Onset Date Last Indicated Resolved Time MRSA Comment:MRSA at outside facility per 09/01/16 lot boss note; left foot tissue 10/08/16 10/11/2018 02/27/2019 Assessment Noted Time PHQ-9 Depression Total Score: 5 02/21/20 22 2:07 PM INDUSTRIAL MAINTENANCE MECHANIC documented as of this encounter Care Teams Cinder Pit Worker Relationship Specialty Start Date End Date No Ref-Primary, Physician PCP - General 02/20/22 06/29/22 [place] [address] [place] [address] PCP - General Family Medicine 06/30/22 [place] [address] [facility] [address] [place] [address] Podiatry 10/18/16 [place] [address] [place] [address] Assigned PCP 08/29/20 10/08/23 Maddie Mae Personal Advocate & Liaison (PAL) Family Medicine 12/28/21 Aydee Mcgill RN RN Clinical Product Navigator Primary Care - CC 06/30/22 06/30/22 Wendy Agustin APRN DINING ROOM MAID [address] [facility] [address] [place] [address] Assigned PCP 10/09/23 documented as of this encounter
--- OUTSIDE RECORDS SUMMARY | 2023-12-15 02:20 | XMS_ITS | Encounter Summary ---
Author Organization [place] Address [address] [place] [address] Care Team Providers Care Radiology Transcriptionist Name Role Phone Edu Crawford DPM Unavailable [phone] Enrico Felton DO Unavailable [phone] Maddie Mae Unavailable Unavailable Enrico Felton DO Primary Care Provider [phone] Wendy Agustin APRN COAL PICKER Unavailable [phone] Encounter Details Date Type Department Care Team (Late st Contact Info) Description 01/08/2023 [facility] [place] [address] [address] Melida Pickering, STATION JAILER Social History Tobacco Use Types Packs/Day Years [...] How often do you attend protestant or shinto serv ices? Patient declined 02/20/2022 [...] PM CDT Appointment [facility] [place] [address] [place] [address] [address] [place] [address] Kingsley Westbrook DPM [address] [place] [address] documented as of this encounter Goals Goal Patient Goal Type Associated Problems Recent Progress Patient-Stated? Author Financial Wellbeing General Yes Rosey Alexander, OTR COMPANY DRIVER documented as of this encounter Visit Diagnoses Not on filedocumented in this encounter Additional Health Concerns Infection Onset Date Last Indicated Resolved Time MRSA Comment:MRSA at outside facility per 09/01/16 sash maker note; left foot tissue 10/08/16 10/11/2018 02/27/2019 Assessment Noted Time PHQ-9 Depression Total Score: 5 02/21/20 22 2:07 PM ASSOCIATE WEB DEVELOPER documented as of this encounter Care Teams Radiology Transcriptionist Relationship Specialty [place] [address] [place] [address] PCP - General Family Medicine 06/30/22 [place] [address] [facility] [address] [place] [address] Podiatry 10/18/16 [place] [address] [place] [address] Assigned PCP 08/29/20 10/08/23 Maddie Mae Personal Advocate & Liaison (PAL) Family Medicine 12/28/21 Wendy Agustin APRN COAL PICKER [address] [facility] [address] [place] [address] Assigned PCP 10/09/23 documented as of this encounter
--- OUTSIDE RECORDS SUMMARY | 2023-12-15 02:20 | XMS_ITS | Encounter Summary ---
Author Organization [place] Address [address] [place] [address] Care Team Providers Care Laundry Housekeeping Aide Name Role Phone YvetteEdu DPM Unavailable [phone] Enrico Felton DO Primary Care Provider [phone] Enrico Felton DO Unavailable [phone] Rebecca Palumbo MD Unavailable [phone] Magdalena Brice Unavailable Unavailable Maddie Mae Unavailable Unavailable No Ref-Primary, Physician Primary Care Provider Enrico Felton DO Primary Care Provider [phone] Aydee Mcgill RN Unavailable [phone] Wendy Agustin APRN MAT MAN Unavailable [phone] Encounter Details Date Type Department Care Team (Late st Contact Info) Description 08/23/2021 MyC Medical Advice [facility] [address] [place] [address] Melida Pickering, TRANSIT MIXER OPERATOR Social History Tobacco Use Types Packs/Day [...] CDT Appointment [facility] [place] [address] [place] [address] Kingsley Westbrook DPM [address] [place] [address] documented as of this encounter Goals Goal Patient Goal Type Associated Problems Recent Progress Patient-Stated? Author Financial Wellbeing General Yes Rosey Alexander, REFRIGERATION INSTALLER documented as of this encounter Visit Diagnoses Not on filedocumented in this encounter Additional Health Concerns Infection Onset Date Last Indicated Resolved Time MRSA Comment:MRSA at outside facility per 09/01/16 operator prefinish note; left foot tissue 10/08/16 10/11/2018 02/27/2019 Assessment Noted Time PHQ-9 Depression Total Score: 3 08/24/19 21 12:19 PM CDT documented as of this encounter Care Teams Laundry Housekeeping Aide Relationship Specialty [place] [address] [place] [address] PCP - General Family Medicine 08/24/20 01/23/22 No Ref-Primary, Physician PCP - General 02/20/22 06/29/22 [place] [address] [facility] [place] [address] PCP - General Family Medicine 06/30/22 [place] [address] [facility] [address] [place] [address] Podiatry 10/18/16 [place] [address] [facility] [place] [address] Assigned PCP 08/29/20 10/08/23 Rebecca Palumbo MD [address] [place] [address] [address] [place], [place] [address] Assigned Neuroscience Provider 10/01/20 10/14/21 Magdalena Brice Personal Advocate & Liaison (PAL) 11/14/21 12/27/21 Maddie Mae Personal Advocate & Liaison (PAL) Family Medicine 12/28/21 Aydee Mcgill RN RN Clinical Product Navigator Primary Care - CC 06/30/22 06/30/22 Wendy Agustin APRN MAT MAN [address] [facility] [address] [place] [address] Assigned PCP 10/09/23 documented as of this encounter
--- OUTSIDE RECORDS SUMMARY | 2023-12-15 02:20 | XMS_ITS | Encounter Summary ---
Author Organization [facility] Address [address] [place] [address]. [place] [address] Care Team Providers Care Beach Patrol Lieutenant Name Role Phone Edu Crawford DPM Unavailable Enrico Felton DO Unavailable [phone] Maddie Mae Unavailable Unavailable Enrico Felton DO Primary Care Provider [phone] Reason for Referral * Consultation (Urgent: 3-5 Days) - Pending Review Specialty Diagnoses / Procedures Referred By Contac t Referred To Contact Wound Care Diagnoses Penetrating foot wound, right, initial encounter Wendy Agustin APRN CERTIFIED REGISTERED DENTAL ASSISTANT [address] [facility] [address] [place] [address] [facility] [address] [facility] [address] [place] [address] Referral ID Status Reason Start Date Expiration Date V isits Requested Visits Authorized [id number] Pending Review 09/13/2023 09/12/2024 1 1 Question Answer Preferred Location: [facility] [place] [facility] Scheduling Instructions: Please call to schedule your [...] Description 09/13/2023 11:00 AM CDT Office Visit [facility] [address] [place] [address] Wendy Agustin APRN CERTIFIED REGISTERED DENTAL ASSISTANT [address] [place] [address] Penetrating foot wound, right, initial encounter (Primary [...] How often do you attend sabianist or confucianism serv ices? Patient declined 02/20/2022 [...] Answer Date Recorded PHQ-2 Score 1 09/13/2023 [facility] - [...] encounter Progress Notes * Wendy Agustin APRN CERTIFIED REGISTERED DENTAL ASSISTANT - 09/13/2023 11:00 AM CDT Assessment & [...] 12/21/2023 2:[address] [facility] [address] [place] [address] Kingsley Westbrook DPM [address] [place] [address] Scheduled Referrals Name Type Priority Associated Diagnoses Orde r Schedule Wound Care Referral Referral Urgent: 3-5 Days Penetrating foot wound, right, initial encounter Expected: 09/13/2023 (Approximate), Expires: 09/12/2024 documented as of this encounter Goals Goal Patient Goal Type Associated Problems Recent Progress Patient-Stated? Author Financial Wellbeing General Yes Rosey Alexander, VALIDATION LEADER documented as of this encounter Visit Diagnoses Diagnosis Penetrating foot wound, right, initial encounter- Primary Overactive bladder Hypertonicity of bladder documented in this encounter Additional Health Concerns Infection Onset Date Last Indicated Resolved Time MRSA Comment:MRSA at outside facility per 09/01/16 rate examiner note; left foot tissue 10/08/16 10/11/2018 02/27/2019 Assessment Noted Time PHQ-9 Depression Total Score: 1 09/13/19 24 10:02 AM CDT documented as of this encounter Care Teams Beach Patrol Lieutenant Relationship Specialty Start [place] [address] [place] [address] PCP - General Family Medicine 06/30/22 Edu Crawford D[place] [address] [facility] [address] [place] [address] Podiatry 10/18/16 [place] [address] [place] [address] Assigned PCP 08/29/20 10/08/23 Maddie Mae Personal Advocate & Liaison (PAL) Family Medicine 12/28/21 documented as of this encounter
--- OUTSIDE RECORDS SUMMARY | 2023-12-15 02:20 | XMS_ITS | Encounter Summary ---
Author Organization [facility] Address [address] [place] [address] Care Team Providers Care Loan Funder Name Role Phone YvetteEdu DPM Unavailable [phone] Enrico Felton DO Primary Care Provider [phone] Enrico Felton DO Unavailable [phone] Rebecca Palumbo MD Unavailable [phone] Magdlaena Brice Unavailable Unavailable Maddie Mae Unavailable Unavailable No Ref-Primary, Physician Primary Care Provider Enrico Felton DO Primary Care Provider [phone] Aydee Mcgill RN Unavailable [phone] Wendy Agustin APRN SBA BUSINESS DEVELOPMENT OFFICER Unavailable [phone] Encounter Details Date Type Department Care Team (Late st Contact Info) Description 09/06/[address] [facility] [address] [place] [address] Lulu Samano MA Social History Tobacco Use [...] Info) Description 12/21/2023 2:00 PM CDT Appointment [facility] [place] [address] [place] [phone] Kingsley Westbrook DPM [address] [facility] [place] [address] documented as of this encounter Goals Goal Patient Goal Type Associated Problems Recent Progress Patient-Stated? Author Financial Wellbeing General Yes Rosey Alexander, BALANCE TRUER documented as of this encounter Visit Diagnoses Not on filedocumented in this encounter Additional Health Concerns Infection Onset Date Last Indicated Resolved Time MRSA Comment:MRSA at outside facility per 09/01/16 relay record clerk note; left foot tissue 10/08/16 10/11/2018 02/27/2019 Assessment Noted Time PHQ-9 Depression Total Score: 3 08/24/19 21 12:19 PM CDT documented as of this encounter Care Teams Loan Funder Relationship Specialty [place] [address] [place] [address] PCP - General Family Medicine 08/24/20 01/23/22 No Ref-Primary, Physician PCP - General 02/20/22 06/29/22 [place] [address] [facility] [place] [address] PCP - General Family Medicine 06/30/22 [place] [address] [facility] [address] [place] [address] Podiatry 10/18/16 [place] [address] [facility] [place] [address] Assigned PCP 08/29/20 10/08/23 Rebecca Palumbo MD [address] [place] [address] [address] [place], [place] [address] Assigned Neuroscience Provider 10/01/20 10/14/21 Magdalena Brice Personal Advocate & Liaison (PAL) 11/14/21 12/27/21 Maddie Mae Personal Advocate & Liaison (PAL) Family Medicine 12/28/21 Aydee Mcgill RN RN Clinical Product Navigator Primary Care - CC 06/30/22 06/30/22 Wendy Agustin APRN SBA BUSINESS DEVELOPMENT OFFICER [address] [facility] [address] [place] [address] Assigned PCP 10/09/23 documented as of this encounter
--- OUTSIDE RECORDS SUMMARY | 2023-12-15 02:20 | XMS_ITS | Encounter Summary ---
Author Organization [place] Address [address] [place] [address]. [place] [address] Care Team Providers Care Executive Compensation Analyst Name Role Phone MirandacliftonEdu DPM Unavailable [phone] Enrico Felton DO Unavailable [phone] Maddie Mae Unavailable Unavailable No Ref-Primary, Physician Primary Care Provider Enrico Felton DO Primary Care Provider Aydee Mcgill RN Unavailable [phone] Wedny Agustin APRN LIFE INSURANCE SALESPERSON Unavailable [phone] Reason for Visit * Reason Onset Date Comments Refill Request 02/08/2022 lisinopril (ZEST RIL) 20 MG tablet Encounter Details Date Type Department Care Team (Late st Contact Info) Description 02/08/2022 Refill [facility] [address] [place] [address] [place] [address] [place] [address] Refill Request (lisinopril (ZESTRIL) 20 MG [...] I will refill lisinopril for 30 days. APPLICATION SUPPORT SPECIALIST * Telephone Encounter - Ivanna Turner RN [...] Has visit scheduled 02/20/22. Ivanna Glover RN APPLICATION SUPPORT SPECIALIST documented in this encounter Plan of Treatment Upcoming Encounters Date Type Department Care Team (Late st Contact Info) Description 12/21/2023 2:00 PM CDT Appointment [facility] [address] [place] [phone] Kingsley Westbrook DPM [address] [place] [address] documented as of this encounter Goals Goal Patient Goal Type Associated Problems Recent Progress Patient-Stated? 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 airline ticket agent note; left foot tissue 10/08/16 10/11/2018 02/27/2019 Assessment Noted Time PHQ-9 Depression Total Score: 3 08/24/19 21 12:19 PM CDT documented as of this encounter Care Teams Executive Compensation Analyst Relationship Specialty Start Date End Date No Ref-Primary, Physician PCP - General 02/20/22 06/29/22 [place] [address] [place] [address] PCP - General Family Medicine 06/30/22 [place] [address] [facility] [address] [place], [place] [address] Podiatry 10/18/16 [place] [address] [place] [address] Assigned PCP 08/29/20 10/08/23 Maddie Mae Personal Advocate & Liaison (PAL) Family Medicine 12/28/21 Aydee Mcgill RN ROQUE Clinical Product Navigator Primary Care - CC 06/30/22 06/30/22 Wendy Agustin APRN LIFE INSURANCE SALESPERSON [address] [facility] [address] [place] [address] Assigned PCP 10/09/23 documented as of this encounter
--- OUTSIDE RECORDS SUMMARY | 2023-12-15 02:20 | XMS_ITS | Encounter Summary ---
Author Organization [place] Address [address] [place] [address] Care Team Providers Care Energy Risk Management Analyst Name Role Phone Edu Crawford DPBharath Unavailable [phone] Enrico Felton DO Unavailable [phone] Maddie Mae Unavailable Unavailable Enrico Felton DO Primary Care Provider [phone] Wendy Agustin APRN TYPESETTING MACHINE OPERATOR/TENDER Unavailable [phone] Encounter Details Date Type Department Care Team (Late st Contact Info) Description 10/06/2022 [facility] [address] [address] Lulu Samano MA Social History [...] Never 02/20/2022 How often do you attend episcopalian or nondenominational serv ices? Patient declined 02/20/2022 Do you belong to any clubs o r organizations such as episcopalian groups, unions, fraternal or athletic groups, or [...] Answer Date Recorded PHQ-2 Score 1 02/20/2022 [facility] - [...] CDT Appointment [facility] [address] [place] [address] Kingsley Westbrook DPM [address] [place] [address] documented as of this encounter Goals Goal Patient Goal Type Associated Problems Recent Progress Patient-Stated? Author Financial Wellbeing General Yes Rosey Alexander, TENON MACHINE OPERATOR documented as of this encounter Visit Diagnoses Not on filedocumented in this encounter Additional Health Concerns Infection Onset Date Last Indicated Resolved Time MRSA Comment:MRSA at outside facility per 09/01/16 skein yarn dyer note; left foot tissue 10/08/16 10/11/2018 02/27/2019 Assessment Noted Time PHQ-9 Depression Total Score: 5 02/21/20 22 2:07 PM TRIMMING OPERATOR documented as of this encounter Care Teams Energy Risk Management Analyst Relationship Specialty [place] [address] [place] [address] PCP - General Family Medicine 06/30/22 [place] [address] [facility] [address] [place] [address] Podiatry 10/18/16 [place] [address] [place] [address] Assigned PCP 08/29/20 10/08/23 Maddie Mae Personal Advocate & Liaison (PAL) Family Medicine 12/28/21 Wendy Agustin APRN TYPESETTING MACHINE OPERATOR/TENDER [address] [facility] [address] [place] [address] Assigned PCP 10/09/23 documented as of this encounter
--- OUTSIDE RECORDS SUMMARY | 2023-12-15 02:21 | XMS_ITS | Encounter Summary ---
Author Organization [place] Address [address] [place] [address] Care Team Providers Care Oracle Application Consultant Name Role Phone Edu Crawford DPM Unavailable [phone] Altagracia Alexander DPM, Podiatry /Foot and Ankle Surgery Unavailable Enrico Felton DO Primary Care Provider [phone] Cy Leonardo Unavailable Unavailable Enrico Felton DO Unavailable [phone] Rebecca Palumbo MD Unavailable [phone] Anders Ramachandran Unavailable Unavailable Magdalena Brice Unavailable Unavailable Maddie Mae Unavailable Unavailable No Ref-Primary, Physician Primary Care Provider Enrico Felton DO Primary Care Provider [phone] Aydee Mcgill RN Unavailable [phone] Wendy Agustin APRN ENTERPRISE CLOUD ARCHITECT Unavailable [phone] Encounter Details Date Type Department Care [...] Info) Description 12/21/2023 2:00 PM CDT Appointment [facility] [place] [address] [facility] [address] [place] [address] Kingsley Westbrook DPM [address] [place] [address] documented as of this encounter Goals Goal Patient Goal Type Associated Problems Recent Progress Patient-Stated? Author Financial Wellbeing General Yes Rosey Alexander, MUSIC DEPARTMENT CHAIR documented as of this encounter Visit Diagnoses Not on filedocumented in this encounter Additional Health Concerns Infection Onset Date Last Indicated Resolved Time MRSA Comment:MRSA at outside facility per 09/01/16 rn first assistant note; left foot tissue 10/08/16 10/11/2018 02/27/2019 Assessment Noted Time PHQ-9 Depression Total Score: 3 08/24/19 21 12:19 PM CDT documented as of this encounter Care Teams Oracle Application Consultant Relationship Specialty Start [place] [address] [place] [address] PCP - General Family Medicine 08/24/20 01/23/22 No Ref-Primary, Physician PCP - General 02/20/22 06/29/22 [place] [address] [place] [address] PCP - General Family Medicine 06/30/22 [place] [address] [facility] [address] [place] [address] Podiatry 10/18/16 Altagracia Alexander DPM, Podiatry/Foot and Ankle Surgery [address] [place] [address] Assigned Musculoskeletal Provider 01/09/20 10/30/20 Cy Leonardo Personal Advocate & Liaison (PAL) 08/26/20 10/13/20 [place] [address] [place] [address] Assigned PCP 08/29/20 10/08/23 Rebecca Palumbo MD [address] [place] [address] [address] [place], [place] [address] Assigned Neuroscience Provider 10/01/20 10/14/21 Anders Ramachandran Personal Advocate & Liaison (PAL) 10/14/20 07/07/21 Magdalena Brice Personal Advocate & Liaison (PAL) 11/14/21 12/27/21 Maddie Mae Personal Advocate & Liaison (PAL) Family Medicine 12/28/21 Aydee Mcgill RN ROQUE Clinical Product Navigator Primary Care - CC 06/30/22 06/30/22 Wendy Agustin APRN ENTERPRISE CLOUD ARCHITECT [address] [facility] [address] [place], [place] [address] Assigned PCP 10/09/23 documented as of this encounter
--- OUTSIDE RECORDS SUMMARY | 2023-12-15 02:21 | XMS_ITS | Encounter Summary ---
Author Organization [facility] Address [address] [place] [address]. [place] [address] Care Team Providers Care Supervisor Advice Name Role Phone Yvette Edu DPM Unavailable [phone] Enrico Felton DO Primary Care Provider [phone] Enrico Felton DO Unavailable [phone] Rebecca Palumbo MD Unavailable [phone] Anders Ramachandran Unavailable Unavailable Magdalena Brice Unavailable Unavailable Maddie Mae Unavailable Unavailable No Ref-Primary, Physician Primary Care Provider Enrico Felton DO Primary Care Provider [phone] Aydee Mcgill RN Unavailable [phone] Wendy Agustin APRN ACCOUNTING BOOKKEEPER Unavailable [phone] Encounter Details Date Type Department Care Team (Late st Contact Info) Description 04/14/2021 MyC Medical Advice [facility] [id number] [place] [address] [place] [address] [place] [address] Social History Tobacco Use Types Packs/Day [...] Info) Description 12/21/2023 2:00 PM CDT Appointment [facility] [address] [place] [address] [address] [place] [address] Kingsley Westbrook DPM [address] [place], [place] [address] documented as of this encounter Goals Goal Patient Goal Type Associated Problems Recent Progress Patient-Stated? 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 per 09/01/16 linen checker note; left foot tissue 10/08/16 10/11/2018 02/27/2019 Assessment Noted Time PHQ-9 Depression Total Score: 3 08/24/19 21 12:19 PM CDT documented as of this encounter Care Teams Supervisor Advice Relationship Specialty [place] [address] [place] [address] PCP - General Family Medicine 08/24/20 01/23/22 No Ref-Primary, Physician PCP - General 02/20/22 06/29/22 [place] [address] [place] [address] PCP - General Family Medicine 06/30/22 [place] [address] [facility] [address] [place] [address] Podiatry 10/18/16 [place] [address] [address] [address] Assigned PCP 08/29/20 10/08/23 Rebecca Palumbo MD [address] [place] [address] [address] [place], [place] [address] Assigned Neuroscience Provider 10/01/20 10/14/21 Anders Ramachandran Personal Advocate & Liaison (PAL) 10/14/20 07/07/21 Magdalnea Brice Personal Advocate & Liaison (PAL) 11/14/21 12/27/21 Maddie Mae Personal Advocate & Liaison (PAL) Family Medicine 12/28/21 Aydee Mcgill RN ROQUE Clinical Product Navigator Primary Care - CC 06/30/22 06/30/22 Wendy Agustin APRN ACCOUNTING BOOKKEEPER [address] [facility] [address] [place] [address] Assigned PCP 10/09/23 documented as of this encounter
--- OUTSIDE RECORDS SUMMARY | 2023-12-15 02:21 | XMS_ITS | Encounter Summary ---
Author Organization [facility] Address [address] [place] [address] Care Team Providers Care Scanning Coordinator Name Role Phone Stefan Crawfordemy DPM Unavailable [phone] Enrico Felton DO Primary Care Provider [phone] Enrico Felton DO Unavailable [phone] Rebecca Palumbo MD Unavailable [phone] Anders Ramachandran Unavailable Unavailable Magdalena Brice Unavailable Unavailable Maddie Mae Unavailable Unavailable No Ref-Primary, Physician Primary Care Provider Enrico Felton DO Primary Care Provider [phone] Aydee Mcgill RN Unavailable [phone] Wendy Agustin APRN SPORTS MARKETING INTERNSHIP Unavailable [phone] Encounter Details Date Type Department Care [...] CDT Appointment [facility] [place] [address] [facility] [address] [place] [address] Kingsley Westbrook DPM 420 [place], [place] [address] documented as of this encounter Goals Goal Patient Goal Type Associated Problems Recent Progress Patient-Stated? Author Financial Wellbeing General Yes Rosey Alexander, PETROLEUM ANALYST documented as of this encounter Visit Diagnoses Not on filedocumented in this encounter Additional Health Concerns Infection Onset Date Last Indicated Resolved Time MRSA Comment:MRSA at outside facility per 09/01/16 document preparer microfilming note; left foot tissue 10/08/16 10/11/2018 02/27/2019 Assessment Noted Time PHQ-9 Depression Total Score: 3 08/24/19 21 12:19 PM CDT documented as of this encounter Care Teams Scanning Coordinator Relationship Specialty [place] [address] [place] [address] PCP - General Family Medicine 08/24/20 01/23/22 No Ref-Primary, Physician PCP - General 02/20/22 06/29/22 [place] [address] [place] [address] PCP - General Family Medicine 06/30/22 [place] [address] [facility] [address] [place] [address] Podiatry 10/18/16 [place] [address] [place] [address] Assigned PCP 08/29/20 10/08/23 Rebecca Palumbo MD [address] [place] [address] 297 [place] [address] Assigned Neuroscience Provider 10/01/20 10/14/21 Anders Ramachandran Personal Advocate & Liaison (PAL) 10/14/20 07/07/21 Magdalena Brice Personal Advocate & Liaison (PAL) 11/14/21 12/27/21 Maddie Mae Personal Advocate & Liaison (PAL) Family Medicine 12/28/21 Aydee Mcgill RN RN Clinical Product Navigator Primary Care - CC 06/30/22 06/30/22 Wendy Agustin APRN SPORTS MARKETING INTERNSHIP [address] [facility] [address] [place] [address] Assigned PCP 10/09/23 documented as of this encounter
--- OUTSIDE RECORDS SUMMARY | 2023-12-15 02:21 | XMS_ITS | Encounter Summary ---
Author Organization [facility] Address [address] [place] [address] Care Team Providers Care Vault Clerk Name Role Phone Madhuri Whitman APRN STORE OPERATIONS SPECIALIST Primary Care Prov ider Edu Crawford DPM Unavailable Altagracia Alexander DPM, Podiatry /Foot and Ankle Surgery Unavailable Enrico Felton DO Unavailable [phone] Enrico Felton DO Primary Care Provider [phone] Cy Leonardo Unavailable Unavailable Enrico Felton DO Unavailable [phone] Rebecca Palumbo MD Unavailable [phone] Anders Ramachandran Unavailable Unavailable Magdalena Brice Unavailable Unavailable Maddie Mae Unavailable Unavailable No Ref-Primary, Physician Primary Care Provider Enrico Felton DO Primary Care Provider [phone] Aydee Mcgill RN Unavailable [phone] Wendy Agustin APRN STORE OPERATIONS SPECIALIST Unavailable [phone] Encounter Details Date Type Department Care Team (Late st Contact Info) Description 05/25/2020 [facility] Medical Advice [address] [address] Dianelys Smalls Social History Tobacco [...] 12/21/2023 2:00 PM CDT Appointment [facility] [place] [address] [place] [address] Kingsley Westbrook DPM [address] [place] [address] documented as of this encounter Goals Goal Patient Goal Type Associated Problems Recent Progress Patient-Stated? Author Financial Wellbeing General Yes Rosey Alexander, SALES ENGINEER ACCOUNT MANAGER documented as of this encounter Visit Diagnoses Not on filedocumented in this encounter Additional Health Concerns Infection Onset Date Last Indicated Resolved Time MRSA Comment:MRSA at outside facility per 09/01/16 pattern grader note; left foot tissue 10/08/16 10/11/2018 02/27/2019 Assessment Noted Time PHQ-9 Depression Total Score: 10 020 4:12 PM NETWORK SECURITY CONSULTANT documented as of this encounter Care Teams Vault Clerk Relationship Specialty Start Date End Date Madhuri Whitman APRN STORE OPERATIONS SPECIALIST PCP - General Nurse Practitioner - Family 09/04/16 08/23/20 [place] [address] [place] [address] PCP - General Family Medicine 08/24/20 01/23/22 No Ref-Primary, Physician PCP - General 02/20/22 06/29/22 [place] [address] [place] [address] PCP - General Family Medicine 06/30/22 [place] [address] [place] [address] Podiatry 10/18/16 Altagracia Alexander DPM, Podiatry/Foot and Ankle Surgery [address] [place], [place] [address] Assigned Musculoskeletal Provider 01/09/20 10/30/20 [place] [address] [place] [address] Assigned PCP 02/01/20 08/28/20 Cy Leonardo Personal Advocate & Liaison (PAL) 08/26/20 10/13/20 [place] [address] [place] [address] Assigned PCP 08/29/20 10/08/23 Rebecca Palumbo MD [address] [place] [id number] Assigned Neuroscience Provider 10/01/20 10/14/21 Anders Ramachandran Personal Advocate & Liaison (PAL) 10/14/20 07/07/21 Magdalena Brice Personal Advocate & Liaison (PAL) 11/14/21 12/27/21 Mdadie Mae Personal Advocate & Liaison (PAL) Family Medicine 12/28/21 Aydee Mcgill RN RN Clinical Product Navigator Primary Care - CC 06/30/22 06/30/22 Wendy Agustin APRN STORE OPERATIONS SPECIALIST [address] [facility] [address] [place], [place] [address] Assigned PCP 10/09/23 documented as of this encounter
--- OUTSIDE RECORDS SUMMARY | 2023-12-15 02:21 | XMS_ITS | Encounter Summary ---
Author Organization [facility] Address [address] [place] [address]. [place] [address] Care Team Providers Care Bicycle Ii Assembler Name Role Phone Yvette Edu DPM Unavailable [phone] Enrico Felton DO Primary Care Provider [phone] Enrico Felton DO Unavailable [phone] Rebecca Palumbo MD Unavailable [phone] Anders Ramachandran Unavailable Unavailable Magdalena Brice Unavailable Unavailable Maddie Mae Unavailable Unavailable No Ref-Primary, Physician Primary Care Provider Enrico Felton DO Primary Care Provider [phone] Aydee Mcgill RN Unavailable [phone] Wendy Agustin APRN BATTERY BUILDER Unavailable [phone] Encounter Details Date Type Department Care Team (Late st Contact Info) Description 01/27/2021 MyC Medical Advice [facility] [address] [place] [address] [place] [address] [place] [address] Social History Tobacco Use Types Packs/Day [...] 2:00 PM CDT Appointment [facility] [address] [place] [address] [address] [place] [address] Kingsley Westbrook DPM [address] [place], [place] [address] documented as of this encounter Goals Goal Patient Goal Type Associated Problems Recent Progress Patient-Stated? Author Financial Wellbeing General Yes Rosey Alexander, SHOES SALESPERSON documented as of this encounter Visit Diagnoses Not on filedocumented in this encounter Additional Health Concerns Infection Onset Date Last Indicated Resolved Time MRSA Comment:MRSA at outside facility per 09/01/16 home care physical therapist note; left foot tissue 10/08/16 10/11/2018 02/27/2019 Assessment Noted Time PHQ-9 Depression Total Score: 3 08/24/19 21 12:19 PM CDT documented as of this encounter Care Teams Bicycle Ii Assembler Relationship Specialty [place] [address] [place] [address] PCP - General Family Medicine 08/24/20 01/23/22 No Ref-Primary, Physician PCP - General 02/20/22 06/29/22 [place] [address] [place] [address] PCP - General Family Medicine 06/30/22 [place] [address] [facility] [address] [place] [address] Podiatry 10/18/16 [place] [address] [address] [place] [address] Assigned PCP 08/29/20 10/08/23 Rebecca Palumbo MD [address] [place] [address] 297 [place], [place] [address] Assigned Neuroscience Provider 10/01/20 10/14/21 Anders Ramachandran Personal Advocate & Liaison (PAL) 10/14/20 07/07/21 Magdalena Brice Personal Advocate & Liaison (PAL) 11/14/21 12/27/21 Maddie Mae Personal Advocate & Liaison (PAL) Family Medicine 12/28/21 Aydee Mcgill RN ROQUE Clinical Product Navigator Primary Care - CC 06/30/22 06/30/22 Wendy Agustin APRN BATTERY BUILDER [address] [facility] [address] [place] [address] Assigned PCP 10/09/23 documented as of this encounter
--- OUTSIDE RECORDS SUMMARY | 2023-12-15 02:21 | XMS_ITS | Encounter Summary ---
Author Organization [facility] Address [address] [place] [address] Care Team Providers Care Hotbed Transfer Operator Name Role Phone Madhuri Whitman APRN STATION MECHANIC APPRENTICE Primary Care Prov ider Edu Crawford DPM Unavailable Altagracia Alexander DPM, Podiatry /Foot and Ankle Surgery Unavailable Enrico Felton DO Unavailable [phone] Enrico Felton DO Primary Care Provider [phone] Cy Leonardo Unavailable Unavailable Enrico Felton DO Unavailable [phone] Rebecca Palumbo MD Unavailable [phone] Anders Ramachandran Unavailable Unavailable Magdalena Brice Unavailable Unavailable Maddie Mae Unavailable Unavailable No Ref-Primary, Physician Primary Care Provider Enrico Felton DO Primary Care Provider [phone] Aydee Mcgill RN Unavailable [phone] Wendy Agustin APRN STATION MECHANIC APPRENTICE Unavailable [phone] Reason for Visit * Reason Comments Medication Refill Encounter Details Date Type Department Care Team (Late st Contact Info) Description 02/13/[address], [address] [place] [address] Craig Montenegro PA-C [address] [place] [address] Medication Refill Social History Tobacco Use Types [...] COVID-19? No / Unsure 01/21/2020 3:59 PM GRAPHIC USER INTERFACE DESIGNER documented as of this encounter Miscellaneous Notes * Telephone Encounter - Anabell Patten CMA - 03/01/2020 1:44 PM GRAPHIC USER INTERFACE DESIGNER LMOM will send letter-Needs lab only appt Anabell Patten CMA HIC USER INTERFACE DESIGNER * Telephone Encounter - Jenny Roman MA - 02/20/2020 11:18 AM CST LVM for pt to schedule a lab only appt. Jenny Roman MA on 02/20/2020 at 11:18 AM HIC USER INTERFACE DESIGNER * Telephone Encounter - America Green - 02/16/2020 10:30 AM CST Left message for patient to call and schedule lab only America Green/ Senior Medical Writer HIC USER INTERFACE DESIGNER * Telephone Encounter - Cooper Rice MD - 02/16/2020 10:27 AM CST Pt needs lab only appt Already futured Cooper Rice MD HIC USER INTERFACE DESIGNER * Telephone Encounter - Azul Packer RN - 02/13/2020 7:32 AM GRAPHIC USER INTERFACE DESIGNER Routing refill request to provider for review/approval because: Labs not current: Lipids RN will issue 90 day denise. Visit is up to date. Please advise on labs. Azul Packer RN [facility] -- Triage Nurse HIC USER INTERFACE DESIGNER documented in this encounter Plan of Treatment Upcoming Encounters Date Type Department Care Team (Late st Contact Info) Description 12/21/2023 2:[address] [facility] [address] [place] [address] Kingsley Westbrook DPM [address] [place] [address] documented as of this encounter Goals Goal Patient Goal Type Associated Problems Recent Progress Patient-Stated? Author Financial Wellbeing General Yes Rosey Alexander, INTELLIGENCE MANAGER documented as of this encounter Visit Diagnoses Diagnosis Hyperlipidemia with target LDL less than 100 Other and unspecified hyperlipidemia documented in this encounter Additional Health Concerns Infection Onset Date Last Indicated Resolved Time MRSA Comment:MRSA at outside facility per 09/01/16 fine chemicals operator note; left foot tissue 10/08/16 10/11/2018 02/27/2019 Assessment Noted Time PHQ-9 Depression Total Score: 10 020 4:12 PM GRAPHIC USER INTERFACE DESIGNER documented as of this encounter Care Teams Hotbed Transfer Operator Relationship Specialty Start Date End Date Madhuri Whitman APRN STATION MECHANIC APPRENTICE PCP - General Nurse Practitioner - Family 09/04/16 08/23/20 [place] [address] [place] [address] PCP - General Family Medicine 08/24/20 01/23/22 No Ref-Primary, Physician PCP - General 02/20/22 06/29/22 [place] [address] [place] [address] PCP - General Family Medicine 06/30/22 [place] [address] [facility] [address] [place], [place] [address] Podiatry 10/18/16 Altagracia Alexander DPM, Podiatry/Foot and Ankle Surgery [address] [place], [place] [address] Assigned Musculoskeletal Provider 01/09/20 10/30/20 [place] [address] [place] [address] Assigned PCP 02/01/20 08/28/20 Cy Leonardo Personal Advocate & Liaison (PAL) 08/26/20 10/13/20 [place] [address] [place] [address] Assigned PCP 08/29/20 10/08/23 Rebecca Palumbo MD [address] [place] [address] [address] [place], [place] [address] Assigned Neuroscience Provider 10/01/20 10/14/21 Anders Ramachandran Personal Advocate & Liaison (PAL) 10/14/20 07/07/21 Magdalena Brice Personal Advocate & Liaison (PAL) 11/14/21 12/27/21 Maddie Mae Personal Advocate & Liaison (PAL) Family Medicine 12/28/21 Aydee Mcgill RN RN Clinical Product Navigator Primary Care - CC 06/30/22 06/30/22 Wendy Agustin APRN STATION MECHANIC APPRENTICE [address] [facility] [address] [place] [address] Assigned PCP 10/09/23 documented as of this encounter
--- OUTSIDE RECORDS SUMMARY | 2023-12-15 02:21 | XMS_ITS | Encounter Summary ---
Author Organization [facility] Address [address] [place] [address]. [place] [address] Care Team Providers Care Sales Engineering Manager Name Role Phone Yvette Edu DPM Unavailable [phone] Enrico Felton DO Primary Care Provider [phone] Enrico Felton DO Unavailable [phone] Rebecca Palumbo MD Unavailable [phone] Anders Ramachandran Unavailable Unavailable Magdalena Brice Unavailable Unavailable Maddie Mae Unavailable Unavailable No Ref-Primary, Physician Primary Care Provider Enrico Felton DO Primary Care Provider [phone] Aydee Mcgill RN Unavailable [phone] Wendy Agustin APRN PARKING MANAGER Unavailable [phone] Encounter Details Date Type Department Care Team (Late st Contact Info) Description 06/01/2021 MyC Medical Advice [facility] [address] [place] [address] [place] [address] [place] [address] Social History Tobacco Use Types Packs/Day [...] Appointment [facility] [address] [place] [address] [address] [place] [address] Kingsley Westbrook DPM [address] [place], [place] [address] documented as of this encounter Goals Goal Patient Goal Type Associated Problems Recent Progress Patient-Stated? Author Financial Wellbeing General Yes Rosey Alexander, RECREATION WORKER documented as of this encounter Visit Diagnoses Not on filedocumented in this encounter Additional Health Concerns Infection Onset Date Last Indicated Resolved Time MRSA Comment:MRSA at outside facility per 09/01/16 filler operator note; left foot tissue 10/08/16 10/11/2018 02/27/2019 Assessment Noted Time PHQ-9 Depression Total Score: 3 08/24/19 21 12:19 PM CDT documented as of this encounter Care Teams Sales Engineering Manager Relationship Specialty [place] [address] [place] [address] PCP - General Family Medicine 08/24/20 01/23/22 No Ref-Primary, Physician PCP - General 02/20/22 06/29/22 [place] [address] [place] [address] PCP - General Family Medicine 06/30/22 [place] [address] [facility] [address] [place] [address] Podiatry 10/18/16 [place] [address] [address] Assigned PCP 08/29/20 10/08/23 Rebecca Palumbo MD [address] [place] [address] 297 [place], [place] [address] Assigned Neuroscience Provider 10/01/20 10/14/21 Anders Ramachandran Personal Advocate & Liaison (PAL) 10/14/20 07/07/21 Magdalena Brice Personal Advocate & Liaison (PAL) 11/14/21 12/27/21 Maddie Mae Personal Advocate & Liaison (PAL) Family Medicine 12/28/21 Aydee Mcgill RN ROQUE Clinical Product Navigator Primary Care - CC 06/30/22 06/30/22 Wendy Agustin APRN PARKING MANAGER [address] [facility] [address] [place] [address] Assigned PCP 10/09/23 documented as of this encounter
--- OUTSIDE RECORDS SUMMARY | 2023-12-15 02:21 | XMS_ITS | Encounter Summary ---
Author Organization [facility] Address [address] [place] [address] Care Team Providers Care Sales Advisor Name Role Phone YvetteEdu DPM Unavailable [phone] Enrico Felton DO Primary Care Provider [phone] Enrico Felton DO Unavailable [phone] Rebecca Palumbo MD Unavailable [phone] Magdalena Brice Unavailable Unavailable Maddie Mae Unavailable Unavailable No Ref-Primary, Physician Primary Care Provider Enrico Felton DO Primary Care Provider [phone] Aydee Mcgill RN Unavailable [phone] Wendy Agustin APRN REGULATORY SUBMISSIONS ASSOCIATE Unavailable [phone] Encounter Details Date Type Department Care Team (Late st Contact Info) Description 07/08/2021 MyC Medical Advice [facility] [address] [place] [address] Cy Leonardo Social History Tobacco [...] Appointment [facility] [place] [address] [place] [address] Kingsley Westbrook DPM [address] [place] [address] documented as of this encounter Goals Goal Patient Goal Type Associated Problems Recent Progress Patient-Stated? Author Financial Wellbeing General Yes Rosey Alexander, ARCHEOLOGIST CLASSICAL documented as of this encounter Visit Diagnoses Not on filedocumented in this encounter Additional Health Concerns Infection Onset Date Last Indicated Resolved Time MRSA Comment:MRSA at outside facility per 09/01/16 community living instructor note; left foot tissue 10/08/16 10/11/2018 02/27/2019 Assessment Noted Time PHQ-9 Depression Total Score: 3 08/24/19 21 12:19 PM CDT documented as of this encounter Care Teams Sales Advisor Relationship Specialty [place] [address] [place] [address] PCP - General Family Medicine 08/24/20 01/23/22 No Ref-Primary, Physician PCP - General 02/20/22 06/29/22 [place] [address] [facility] [place] [address] PCP - General Family Medicine 06/30/22 [place] [address] [facility] [address] [place] [address] Podiatry 10/18/16 [place] [address] [place] [address] Assigned PCP 08/29/20 10/08/23 Rebecca Palumbo MD [address] [place] [address] 297 [place], [place] [address] Assigned Neuroscience Provider 10/01/20 10/14/21 Magdalena rBice Personal Advocate & Liaison (PAL) 11/14/21 12/27/21 Maddie Mae Personal Advocate & Liaison (PAL) Family Medicine 12/28/21 Aydee Mcgill RN RN Clinical Product Navigator Primary Care - CC 06/30/22 06/30/22 Wendy Agustin APRN REGULATORY SUBMISSIONS ASSOCIATE [address] [facility] [address] [place], [place] [address] Assigned PCP 10/09/23 documented as of this encounter
--- OUTSIDE RECORDS SUMMARY | 2023-12-15 02:21 | XMS_ITS | Encounter Summary ---
Author Organization [facility] Address [address] [place] [address]. [place] [address] Care Team Providers Care Skin Fitter Name Role Phone Yvette Edu DPM Unavailable [phone] Enrico Felton DO Primary Care Provider [phone] Enrico Felton DO Unavailable [phone] Rebecca Palumbo MD Unavailable [phone] Anders Ramachandran Unavailable Unavailable Magdalena Brice Unavailable Unavailable Maddie Mae Unavailable Unavailable No Ref-Primary, Physician Primary Care Provider Enrico Felton DO Primary Care Provider [phone] Aydee Mcgill RN Unavailable [phone] Wendy Agustin APRN OPERATING ROOM MANAGER Unavailable [phone] Encounter Details Date Type Department Care Team (Late st Contact Info) Description 11/17/2020 MyC Medical Advice [facility] [id number] [place] [address] [place] [id number] [place] [address] Social History Tobacco Use Types Packs/Day [...] Appointment [facility] Wound [facility] [address] [place] [address] [address] [place] [address] Kingsley Westbrook DPM [address] [place], [place] [address] documented as of this encounter Goals Goal Patient Goal Type Associated Problems Recent Progress Patient-Stated? Author Financial Wellbeing General Yes Rosey Alexander, ROLL FORMING SUPERVISOR documented as of this encounter Visit Diagnoses Not on filedocumented in this encounter Additional Health Concerns Infection Onset Date Last Indicated Resolved Time MRSA Comment:MRSA at outside facility per 09/01/16 international marketing intern note; left foot tissue 10/08/16 10/11/2018 02/27/2019 Assessment Noted Time PHQ-9 Depression Total Score: 3 08/24/19 21 12:19 PM CDT documented as of this encounter Care Teams Skin Fitter Relationship Specialty [place] [address] [place] [address] PCP - General Family Medicine 08/24/20 01/23/22 No Ref-Primary, Physician PCP - General 02/20/22 06/29/22 [place] [address] [place] [address] PCP - General Family Medicine 06/30/22 [place] D[place] [address] [facility] [address] [place] [address] Podiatry 10/18/16 [place] [address] [place] [address] Assigned PCP 08/29/20 10/08/23 Rebecca Palumbo MD [address] [place] [address] [address] [place], [place] [address] Assigned Neuroscience Provider 10/01/20 10/14/21 Anders Ramachandran Personal Advocate & Liaison (PAL) 10/14/20 07/07/21 Magdalena Brice Personal Advocate & Liaison (PAL) 11/14/21 12/27/21 Maddie Mae Personal Advocate & Liaison (PAL) Family Medicine 12/28/21 Aydee Mcgill RN ROQUE Clinical Product Navigator Primary Care - CC 06/30/22 06/30/22 Wendy Agustin APRN OPERATING ROOM MANAGER [address] [facility] [address] [place] [address] Assigned PCP 10/09/23 documented as of this encounter
--- OUTSIDE RECORDS SUMMARY | 2023-12-15 02:21 | XMS_ITS | Encounter Summary ---
Author Organization [facility] Address [address] [place] [address] Care Team Providers Care Employment Supervisor Name Role Phone J Carlos Madhuri White APRN SOLUTIONS DELIVERY CONSULTANT Primary Care Prov ider Edu Crawford DPM Unavailable [phone] Craig Montenegro PA-C Unavailable [phone] Altagracia Alexander DPM, Podiatry /Foot and Ankle Surgery Unavailable Enrico Felton DO Unavailable [phone] Enrico Felton DO Primary Care Provider [phone] Cy Leonardo Unavailable Unavailable Enrico Felton DO Unavailable Rebecca Palumbo MD Unavailable [phone] Anders Ramachandran Unavailable Unavailable Magdalena Brice Unavailable Unavailable Maddie Mae Unavailable Unavailable No Ref-Primary, Physician Primary Care Provider Enrico Felton DO Primary Care Provider [phone] Aydee Mcgill RN Unavailable [phone] Wendy Agustin APRN SOLUTIONS DELIVERY CONSULTANT Unavailable [phone] Encounter Details Date Type Department Care [...] COVID-19? No / Unsure 01/21/2020 3:59 PM DATA PROCESSING AUDITOR documented as of this encounter Plan of Treatment Upcoming Encounters Date Type Department Care Team (Late st Contact Info) Description 12/21/2023 2:00 PM CDT Appointment [facility] [place] [address] [place] [address] [address] [place] [address] Kingsley Westbrook DPM [address] [place], [place] [address] documented as of this encounter Goals Goal Patient Goal Type Associated Problems Recent Progress Patient-Stated? 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 facility per 09/01/16 tree feller operator note; left foot tissue 10/08/16 10/11/2018 02/27/2019 Assessment Noted Time PHQ-9 Depression Total Score: 10 020 4:12 PM DATA PROCESSING AUDITOR documented as of this encounter Care Teams Employment Supervisor Relationship Specialty Start Date End Date Madhuri Whitman APRN CNP PCP - General Nurse Practitioner - Family 09/04/16 08/23/20 [place] [address] [place] [address] PCP - General Family Medicine 08/24/20 01/23/22 No Ref-Primary, Physician PCP - General 02/20/22 06/29/22 [place] [address] [place] [address] PCP - General Family Medicine 06/30/22 [place] [address] [facility] [address] [place] [address] Podiatry 10/18/16 Craig Montenegro PA-C [address] [place] [address] Assigned PCP 09/28/19 01/31/20 Altagracia Alexander DPM, Podiatry/Foot and Ankle Surgery [address] [place] [address] Assigned Musculoskeletal Provider 01/09/20 10/30/20 [place] [address] [place] [address] Assigned PCP 02/01/20 08/28/20 Cy Leonardo Personal Advocate & Liaison (PAL) 08/26/20 10/13/20 [place] [address] [place] [address] Assigned PCP 08/29/20 10/08/23 Rebecca Palumbo MD [address] [place] [address] 297 [place], [place] [address] Assigned Neuroscience Provider 10/01/20 10/14/21 Anders Ramachandran Personal Advocate & Liaison (PAL) 10/14/20 07/07/21 Magdalena Brice Personal Advocate & Liaison (PAL) 11/14/21 12/27/21 Maddie Mae Personal Advocate & Liaison (PAL) Family Medicine 12/28/21 Aydee Mcgill RN RN Clinical Product Navigator Primary Care - CC 06/30/22 06/30/22 Wendy Agustin APRN SOLUTIONS DELIVERY CONSULTANT [address] [facility] [address] [place] [address] Assigned PCP 10/09/23 documented as of this encounter
--- OUTSIDE RECORDS SUMMARY | 2023-12-15 02:21 | XMS_ITS | Encounter Summary ---
Author Organization [facility] Address [address] [place] [address]. [place] [address] Care Team Providers Care Board Hammer Operator Name Role Phone YvetteEdu DPM Unavailable [phone] Enrico Felton DO Primary Care Provider [phone] Enrico Felton DO Unavailable [phone] Rebecca Palumbo MD Unavailable [phone] Magdalena Brice Unavailable Unavailable Maddie Mae Unavailable Unavailable No Ref-Primary, Physician Primary Care Provider Enrico Felton DO Primary Care Provider [phone] Aydee Mcgill RN Unavailable [phone] Wendy Agustin APRN COUNTER TOP ASSEMBLER Unavailable [phone] Encounter Details Date Type Department Care Team (Late st Contact Info) Description 07/29/2021 MyC Medical Advice [facility] [id number] [place] [address] [place] [id number] [place] [address] Social History Tobacco Use Types Packs/Day [...] PM CDT Appointment [facility] Wound [facility] [address] [place] [address] [address] [place] [address] Kingsley Westbrook DPM [address] [place] [address] documented as of this encounter Goals Goal Patient Goal Type Associated Problems Recent Progress Patient-Stated? 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 per 09/01/16 tinsmith helper note; left foot tissue 10/08/16 10/11/2018 02/27/2019 Assessment Noted Time PHQ-9 Depression Total Score: 3 08/24/19 21 12:19 PM CDT documented as of this encounter Care Teams Board Hammer Operator Relationship Specialty [place] [address] [place] [address] PCP - General Family Medicine 08/24/20 01/23/22 No Ref-Primary, Physician PCP - General 02/20/22 06/29/22 [place] [address] [place] [address] PCP - General Family Medicine 06/30/22 [place] [address] [facility] [address] [place] [address] Podiatry 10/18/16 [place] [address] [place] [address] Assigned PCP 08/29/20 10/08/23 Rebecca Palumbo MD [address] [place] [address] 297 [place] [address] Assigned Neuroscience Provider 10/01/20 10/14/21 Magdalena Brice Personal Advocate & Liaison (PAL) 11/14/21 12/27/21 Maddie Mea Personal Advocate & Liaison (PAL) Family Medicine 12/28/21 Aydee Mcgill, RN RN Clinical Product Navigator Primary Care - CC 06/30/22 06/30/22 Wendy Agustin APRN COUNTER TOP ASSEMBLER [address] [facility] [address] [place] [address] Assigned PCP 10/09/23 documented as of this encounter
--- OUTSIDE RECORDS SUMMARY | 2023-12-15 02:21 | XMS_ITS | Encounter Summary ---
Author Organization [facility] Address [address] [place] [address] Care Team Providers Care Agricultural Equipment Design Engineer Name Role Phone Edu Crawford DPM Unavailable [phone] Altagracia Alexander DPM, Podiatry /Foot and Ankle Surgery Unavailable Enrico Felton DO Primary Care Provider [phone] Cy Leonardo Unavailable Unavailable Enrico Felton DO Unavailable [phone] Rebecca Palumbo MD Unavailable [phone] Anders Ramachandran Unavailable Unavailable Magdalena Brice Unavailable Unavailable Maddie Mae Unavailable Unavailable No Ref-Primary, Physician Primary Care Provider Enrico Felton DO Primary Care Provider [phone] Aydee Mcgill RN Unavailable [phone] Wendy Agustin APRN CLOTHESPIN DRIER OPERATOR Unavailable [phone] Encounter Details Date Type Department Care Team (Late st Contact Info) Description 10/05/2020 MyC Medical Advice [facility] [address] [place] [address] Beverley Woodward Social History Tobacco [...] 2:00 PM CDT Appointment [facility] [address] [place] [address] Kingsley Westbrook DPM [address] [place] [address] documented as of this encounter Goals Goal Patient Goal Type Associated Problems Recent Progress Patient-Stated? 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 per 09/01/16 purification supervisor note; left foot tissue 10/08/16 10/11/2018 02/27/2019 Assessment Noted Time PHQ-9 Depression Total Score: 3 08/24/19 21 12:19 PM CDT documented as of this encounter Care Teams Agricultural Equipment Design Engineer Relationship Specialty [place] [address] [place] [address] PCP - General Family Medicine 08/24/20 01/23/22 No Ref-Primary, Physician PCP - General 02/20/22 06/29/22 [place] [address] [place] [address] PCP - General Family Medicine 06/30/22 [place] [address] [place] [address] Podiatry 10/18/16 Altagracia Alexander DPM, Podiatry/Foot and Ankle Surgery [address] [place], [place] [address] Assigned Musculoskeletal Provider 01/09/20 10/30/20 Cy Leonardo Personal Advocate & Liaison (PAL) 08/26/20 10/13/20 [place] [address] [place] [address] Assigned PCP 08/29/20 10/08/23 Rebecca Palumbo MD [address] [place] [address] 297 [place], [place] [address] Assigned Neuroscience Provider 10/01/20 10/14/21 Anders Ramachandran Personal Advocate & Liaison (PAL) 10/14/20 07/07/21 Magdalena Brice Personal Advocate & Liaison (PAL) 11/14/21 12/27/21 Maddie Mae Personal Advocate & Liaison (PAL) Family Medicine 12/28/21 Aydee Mcgill RN ROQUE Clinical Product Navigator Primary Care - CC 06/30/22 06/30/22 Wendy Agustin APRN CLOTHESPIN DRIER OPERATOR [address] [facility] [address] [place], [place] [address] Assigned PCP 10/09/23 documented as of this encounter
--- OUTSIDE RECORDS SUMMARY | 2023-12-15 02:21 | XMS_ITS | Encounter Summary ---
Author Organization [facility] Address [address] [place] [address] Care Team Providers Care Yardmaster Name Role Phone Edu Crawford DPM Unavailable [phone] Altagracia Alexander DPM, Podiatry /Foot and Ankle Surgery Unavailable Enrico Felton DO Unavailable [phone] Enrico Felton DO Primary Care Provider [phone] Cy Leonardo Unavailable Unavailable Enrico Felton DO Unavailable [phone] Rebecca Palumbo MD Unavailable [phone] Anders Ramachandran Unavailable Unavailable Magdalena Brice Unavailable Unavailable Maddie Mae Unavailable Unavailable No Ref-Primary, Physician Primary Care Provider Enrico Felton DO Primary Care Provider [phone] Aydee Mcgill RN Unavailable [phone] Wendy Agustin APRN COMPOSITION BOARD PRESS OPERATOR Unavailable [phone] Encounter Details Date Type Department Care [...] CDT Appointment [facility] [address] [place] [address] Kingsley Westbrook DPM [address] [place] [address] documented as of this encounter Goals Goal Patient Goal Type Associated Problems Recent Progress Patient-Stated? Author Financial Wellbeing General Yes Rosey Alexander, NEEDLE PUNCH MACHINE OPERATOR documented as of this encounter Visit Diagnoses Not on filedocumented in this encounter Additional Health Concerns Infection Onset Date Last Indicated Resolved Time MRSA Comment:MRSA at outside facility per 09/01/16 insurance producer note; left foot tissue 10/08/16 10/11/2018 02/27/2019 Assessment Noted Time PHQ-9 Depression Total Score: 3 08/24/19 21 12:19 PM CDT documented as of this encounter Care Teams Yardmaster Relationship Specialty [place] [address] [place] [address] PCP - General Family Medicine 08/24/20 01/23/22 No Ref-Primary, Physician PCP - General 02/20/22 06/29/22 [place] [address] [place] [address] PCP - General Family Medicine 06/30/22 Edu Crawford DPM [address] [place] [address] [address] [place] [address] Podiatry 10/18/16 Altagracia Alexander DPM, Podiatry/Foot and Ankle Surgery [address] [facility] [address] [place], [place] [address] Assigned Musculoskeletal Provider 01/09/20 10/30/20 [place] [address] [place] [address] Assigned PCP 02/01/20 08/28/20 Cy Leonardo Personal Advocate & Liaison (PAL) 08/26/20 10/13/20 [place] [address] [place] [address] Assigned PCP 08/29/20 10/08/23 Rebecca Palumbo MD [address] [place] [address] 297 [place], [place] [address] Assigned Neuroscience Provider 10/01/20 10/14/21 Anders Ramachandran Personal Advocate & Liaison (PAL) 10/14/20 07/07/21 Magdalena Brice Personal Advocate & Liaison (PAL) 11/14/21 12/27/21 Maddie Mae Personal Advocate & Liaison (PAL) Family Medicine 12/28/21 Aydee Mcgill RN ROQUE Clinical Product Navigator Primary Care - CC 06/30/22 06/30/22 Wendy Agustin APRN COMPOSITION BOARD PRESS OPERATOR [address] [facility] [address] [place], [place] [address] Assigned PCP 10/09/23 documented as of this encounter
--- OUTSIDE RECORDS SUMMARY | 2023-12-15 02:21 | XMS_ITS | Encounter Summary ---
Author Organization [facility] Address [address] [place] [address] Care Team Providers Care Optical Laboratory Mechanic Name Role Phone Yvette Edu DPM Unavailable [phone] Enrico Felton DO Primary Care Provider [phone] Enrico Felton DO Unavailable [phone] Rebecca Palumbo MD Unavailable [phone] Anders Ramachandran Unavailable Unavailable Magdalena Brice Unavailable Unavailable Maddie Mae Unavailable Unavailable No Ref-Primary, Physician Primary Care Provider Enrico Felton DO Primary Care Provider [phone] Aydee Mcgill RN Unavailable [phone] Wendy Agustin APRN CARTRIDGE ASSEMBLER Unavailable [phone] Encounter Details Date Type Department Care Team (Late st Contact Info) Description 06/01/2021 MyC Medical Advice [facility] [address] [place] [address] Lulu Samano MA Social History Tobacco [...] PM CDT Appointment [place] [facility] Wound [facility] [address] [place] [address] Kingsley Westbrook DPM [address] [place], [place] [address] documented as of this encounter Goals Goal Patient Goal Type Associated Problems Recent Progress Patient-Stated? Author Financial Wellbeing General Yes Benjamin, Rosey K, EXPLOSIVE ORDNANCE TECHNICIAN documented as of this encounter Visit Diagnoses Not on filedocumented in this encounter Additional Health Concerns Infection Onset Date Last Indicated Resolved Time MRSA Comment:MRSA at outside facility per 09/01/16 director media note; left foot tissue 10/08/16 10/11/2018 02/27/2019 Assessment Noted Time PHQ-9 Depression Total Score: 3 08/24/19 21 12:19 PM CDT documented as of this encounter Care Teams Optical Laboratory Mechanic Relationship Specialty [place] [address] [place] [address] PCP - General Family Medicine 08/24/20 01/23/22 No Ref-Primary, Physician PCP - General 02/20/22 06/29/22 [place] [address] [place] [address] PCP - General Family Medicine 06/30/22 [place] D[place] [address] [facility] [address] [place] [address] Podiatry 10/18/16 [place] [address] [place] [address] Assigned PCP 08/29/20 10/08/23 Rebecca aPlumbo MD [address] [place] [address] 297 [place] [address] Assigned Neuroscience Provider 10/01/20 10/14/21 Anders Ramachandran Personal Advocate & Liaison (PAL) 10/14/20 07/07/21 Magdalena Brice Personal Advocate & Liaison (PAL) 11/14/21 12/27/21 Maddie Mae Personal Advocate & Liaison (PAL) Family Medicine 12/28/21 Aydee Mcgill RN RN Clinical Product Navigator Primary Care - CC 06/30/22 06/30/22 Wendy Agustin APRN CARTRIDGE ASSEMBLER [address] [facility] [address] [place] [address] Assigned PCP 10/09/23 documented as of this encounter
--- OUTSIDE RECORDS SUMMARY | 2023-12-15 02:21 | XMS_ITS | Encounter Summary ---
Author Organization [facility] Address [address] [place] [address] Care Team Providers Care Farm Management Supervisor Name Role Phone YvetteEdu DPM Unavailable [phone] Enrico Felton DO Primary Care Provider [phone] Enrico Felton DO Unavailable [phone] Rebecca Palumbo MD Unavailable [phone] Magdalena Brice Unavailable Unavailable Maddie Mae Unavailable Unavailable No Ref-Primary, Physician Primary Care Provider Enrico Felton DO Primary Care Provider [phone] Aydee Mcgill RN Unavailable [phone] Wendy Agustin APRN ENGINEER STATION MAINLINE Unavailable [phone] Encounter Details Date Type Department Care Team (Late st Contact Info) Description 07/14/2021 MyC Medical Advice [facility] [address] [place] [address] Melida Pickering, PHARMACEUTICAL SALES SPECIALIST Social History Tobacco Use Types Packs/Day [...] Appointment [facility] [place] [address] [place] [phone] Kingsley Westbrook DPM [address] [place] [address] documented as of this encounter Goals Goal Patient Goal Type Associated Problems Recent Progress Patient-Stated? Author Financial Wellbeing General Yes Rosey Alexander, CONSUMER RECRUITER documented as of this encounter Visit Diagnoses Not on filedocumented in this encounter Additional Health Concerns Infection Onset Date Last Indicated Resolved Time MRSA Comment:MRSA at outside facility per 09/01/16 steamfitter note; left foot tissue 10/08/16 10/11/2018 02/27/2019 Assessment Noted Time PHQ-9 Depression Total Score: 3 08/24/19 21 12:19 PM CDT documented as of this encounter Care Teams Farm Management Supervisor Relationship Specialty [place] [address] [place] [address] PCP - General Family Medicine 08/24/20 01/23/22 No Ref-Primary, Physician PCP - General 02/20/22 06/29/22 [place] [address] [facility] [place] [address] PCP - General Family Medicine 06/30/22 [place] [address] [facility] [address] [place] [address] Podiatry 10/18/16 [place] [address] [facility] [place] [address] Assigned PCP 08/29/20 10/08/23 Rebecca Palumbo MD [address] [place] [address] [address] [place], [place] [address] Assigned Neuroscience Provider 10/01/20 10/14/21 Magdalena Brice Personal Advocate & Liaison (PAL) 11/14/21 12/27/21 Maddie Mae Personal Advocate & Liaison (PAL) Family Medicine 12/28/21 Aydee Mcgill RN RN Clinical Product Navigator Primary Care - CC 06/30/22 06/30/22 Wendy Agustin APRN ENGINEER STATION MAINLINE [address] [facility] [address] [place] [address] Assigned PCP 10/09/23 documented as of this encounter
--- OUTSIDE RECORDS SUMMARY | 2023-12-15 02:21 | XMS_ITS | Encounter Summary ---
Author Organization [facility] Address [address] [place] [address] Care Team Providers Care Juice Packaging Machines Setter Name Role Phone Madhuri Whitman APRN TICKET COLLECTOR Primary Care Prov ider Edu Crawford DPM Unavailable Altagracia Alexander DPM, Podiatry /Foot and Ankle Surgery Unavailable Enrico Felton DO Unavailable [phone] Enrico Felton DO Primary Care Provider [phone] Cy Leonardo Unavailable Unavailable Enrico Felton DO Unavailable [phone] Rebecca Palumbo MD Unavailable [phone] Anders Ramachandran Unavailable Unavailable Magdalena Brice Unavailable Unavailable Maddie Mae Unavailable Unavailable No Ref-Primary, Physician Primary Care Provider Enrico Felton DO Primary Care Provider [phone] Aydee Mcgill RN Unavailable [phone] Wendy Agustin APRN TICKET COLLECTOR Unavailable [phone] Encounter Details Date Type Department Care Team (Late st Contact Info) Description 06/08/2020 [facility] [address] [place] [phone] [place] [address] [place] [address] Social History Tobacco Use Types Packs/Day Years [...] Appointment [facility] [address] [place] [address] Kingsley Westbrook DPM 420 [place], [place] [address] documented as of this encounter Goals Goal Patient Goal Type Associated Problems Recent Progress Patient-Stated? Author Financial Wellbeing General Yes Rosey Alexander, PAPER HANGER documented as of this encounter Visit Diagnoses Not on filedocumented in this encounter Additional Health Concerns Infection Onset Date Last Indicated Resolved Time MRSA Comment:MRSA at outside facility per 09/01/16 castings trimmer note; left foot tissue 10/08/16 10/11/2018 02/27/2019 Assessment Noted Time PHQ-9 Depression Total Score: 10 020 4:12 PM GLOVE MAKER documented as of this encounter Care Teams Juice Packaging Machines Setter Relationship Specialty Start Date End Date Madhuri Whitman APRN TICKET COLLECTOR PCP - General Nurse Practitioner - Family 09/04/16 08/23/20 [place] [address] [place] [address] PCP - General Family Medicine 08/24/20 01/23/22 No Ref-Primary, Physician PCP - General 02/20/22 06/29/22 [place] [address] [place] [address] PCP - General Family Medicine 06/30/22 Edu [place] [address] [facility] [address] [place], [place] 4923[address] Podiatry 10/18/16 Altagracia Alexander DPM, Podiatry/Foot and Ankle Surgery [address] [place], [place] [address] Assigned Musculoskeletal Provider 01/09/20 10/30/20 [place] [address] [place] [address] Assigned PCP 02/01/20 08/28/20 Cy Leonardo Personal Advocate & Liaison (PAL) 08/26/20 10/13/20 [place] [address] [place] [address] Assigned PCP 08/29/20 10/08/23 Rebecca Palumbo MD [address] [place] [address] 839445 Assigned Neuroscience Provider 10/01/20 10/14/21 Anders Ramachandran Personal Advocate & Liaison (PAL) 10/14/20 07/07/21 Magdalena Brice Personal Advocate & Liaison (PAL) 11/14/21 12/27/21 Maddie Mae Personal Advocate & Liaison (PAL) Family Medicine 12/28/21 Aydee Mcgill RN RN Clinical Product Navigator Primary Care - CC 06/30/22 06/30/22 Wendy Agustin APRN TICKET COLLECTOR [address] [facility] [address] [place] [address] Assigned PCP 10/09/23 documented as of this encounter
--- OUTSIDE RECORDS SUMMARY | 2023-12-15 02:21 | XMS_ITS | Encounter Summary ---
Author Organization [facility] Address [address] [place] [address]. [place] [address] Care Team Providers Care Academic Success Coordinator Name Role Phone Yvette Edu DPM Unavailable [phone] Enrico Felton DO Primary Care Provider [phone] Enrico Felton DO Unavailable [phone] Rebecca Palumbo MD Unavailable [phone] Anders Ramachandran Unavailable Unavailable Magdalena Brice Unavailable Unavailable Maddie Mae Unavailable Unavailable No Ref-Primary, Physician Primary Care Provider Enrico Felton DO Primary Care Provider [phone] Aydee Mcgill RN Unavailable [phone] Wendy Agustin APRN KILN PUSHER Unavailable [phone] Encounter Details Date Type Department Care Team (Late st Contact Info) Description 02/24/2021 MyC Medical Advice [facility] [address] [place] [address] [place] [id number] [place] [address] Social History Tobacco Use Types Packs/Day [...] PM CDT Appointment [facility] [address] [place] [address] [address] [place] [address] Kingsley Westbrook DPM [address] [place], [place] 532035 documented as of this encounter Goals Goal Patient Goal Type Associated Problems Recent Progress Patient-Stated? Author Financial Wellbeing General Yes Rosey Alexander, GROOMING ASSISTANT documented as of this encounter Visit Diagnoses Not on filedocumented in this encounter Additional Health Concerns Infection Onset Date Last Indicated Resolved Time MRSA Comment:MRSA at outside facility per 09/01/16 team driver note; left foot tissue 10/08/16 10/11/2018 02/27/2019 Assessment Noted Time PHQ-9 Depression Total Score: 3 08/24/19 21 12:19 PM CDT documented as of this encounter Care Teams Academic Success Coordinator Relationship Specialty [place] [address] [place] [address] PCP - General Family Medicine 08/24/20 01/23/22 No Ref-Primary, Physician PCP - General 02/20/22 06/29/22 [place] [address] [place] [address] PCP - General Family Medicine 06/30/22 [place] [address] [facility] [address] [place] [address] Podiatry 10/18/16 [place] [address] [address] [address] Assigned PCP 08/29/20 10/08/23 Rebecca Palumbo MD [address] [place] [address] 297 [place], [place] 747335 Assigned Neuroscience Provider 10/01/20 10/14/21 Anders Ramachandran Personal Advocate & Liaison (PAL) 10/14/20 07/07/21 Magdalena Brice Personal Advocate & Liaison (PAL) 11/14/21 12/27/21 Maddie Mae Personal Advocate & Liaison (PAL) Family Medicine 12/28/21 yAdee Mcgill RN ROQUE Clinical Product Navigator Primary Care - CC 06/30/22 06/30/22 Wendy Agustin APRN KILN PUSHER [address] [facility] [address] [place] [address] Assigned PCP 10/09/23 documented as of this encounter
--- OUTSIDE RECORDS SUMMARY | 2023-12-15 02:21 | XMS_ITS | Encounter Summary ---
Author Organization [facility] Address [address] [place] [address] Care Team Providers Care Surgeon/President Name Role Phone Madhuri Whitman APRN ARTIFICIAL INSEMINATION TECHNICIAN Primary Care Prov ider Edu [place] DPM Unavailable Altagracia Alexander DPM, Podiatry /Foot and Ankle Surgery Unavailable Enrico Felton DO Unavailable [phone] Enrico Felton DO Primary Care Provider [phone] Cy Leonardo Unavailable Unavailable Enrico Felton DO Unavailable Rebecca Palumbo MD Unavailable [phone] Anders Ramachandran Unavailable Unavailable Magdalena Brice Unavailable Unavailable Maddie Mae Unavailable Unavailable No Ref-Primary, Physician Primary Care Provider Enrico Felton DO Primary Care Provider [phone] Aydee Mcgill RN Unavailable [phone] Wendy Agustin APRN ARTIFICIAL INSEMINATION TECHNICIAN Unavailable [phone] Encounter Details Date Type Department Care Team (Late st Contact Info) Description 05/20/2020 [facility] Medical Advice [address] [address] Camila Mejia Social History Tobacco [...] Appointment [facility] [place] [address] [place] [address] [address] [place] [address] Kingsley Westbrook DPM [address] [place] [address] [id number] documented as of this encounter Goals Goal Patient Goal Type Associated Problems Recent Progress Patient-Stated? 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 per 09/01/16 skid worker note; left foot tissue 10/08/16 10/11/2018 02/27/2019 Assessment Noted Time PHQ-9 Depression Total Score: 10 020 4:12 PM PROGRAM SCHEDULER documented as of this encounter Care Teams Surgeon/President Relationship Specialty Start Date End Date Madhuri Whitman APRN CNP PCP - General Nurse Practitioner - Family 09/04/16 08/23/20 [place] [address] [place] [address] PCP - General Family Medicine 08/24/20 01/23/22 No Ref-Primary, Physician PCP - General 02/20/22 06/29/22 [place] [address] [place] [address] PCP - General Family Medicine 06/30/22 [place] [address] [place] [address] Podiatry 10/18/16 Altagracia Alexander DPM, Podiatry/Foot and Ankle Surgery [address] [place], [place] [address] Assigned Musculoskeletal Provider 01/09/20 10/30/20 [place] [address] [place] [address] Assigned PCP 02/01/20 08/28/20 Cy Leonardo Personal Advocate & Liaison (PAL) 08/26/20 10/13/20 [place] [address] [place] [address] Assigned PCP 08/29/20 10/08/23 Rebecca Palumbo MD [address] [place] [address] 790145 Assigned Neuroscience Provider 10/01/20 10/14/21 Anders Ramachandran Personal Advocate & Liaison (PAL) 10/14/20 07/07/21 Magdalena Brice Personal Advocate & Liaison (PAL) 11/14/21 12/27/21 Maddie Mae Personal Advocate & Liaison (PAL) Family Medicine 12/28/21 Aydee Mcgill RN RN Clinical Product Navigator Primary Care - CC 06/30/22 06/30/22 Wendy Agustin APRN ARTIFICIAL INSEMINATION TECHNICIAN [address] [facility] [address] [place], [place] [address] Assigned PCP 10/09/23 documented as of this encounter
--- OUTSIDE RECORDS SUMMARY | 2023-12-15 02:21 | XMS_ITS | Encounter Summary ---
Author Organization [facility] Address [address] [place] [address] Care Team Providers Care Team Physician Name Role Phone Madhuri Whitman APRN TIPPING MACHINE OPERATOR Primary Care Prov ider Edu [place] DPM Unavailable Altagracia Alexander DPM, Podiatry /Foot and Ankle Surgery Unavailable Enrico Felton DO Unavailable [phone] Enrico Felton DO Primary Care Provider [phone] Cy Leonardo Unavailable Unavailable Enrico Felton DO Unavailable [phone] Rebecca Palumbo MD Unavailable [phone] Anders Ramachandran Unavailable Unavailable Magdalena Brice Unavailable Unavailable Maddie Mae Unavailable Unavailable No Ref-Primary, Physician Primary Care Provider Enrico Felton DO Primary Care Provider [phone] Aydee Mcgill RN Unavailable [phone] Wendy Agustin APRN TIPPING MACHINE OPERATOR Unavailable [phone] Encounter Details Date Type Department Care Team (Late st Contact Info) Description 08/18/2020 MyC Medical Advice [facility] [address] [place] [phone] Denia Mccrary, LABORER BITUMINOUS PAVING Social History Tobacco Use Types Packs/Day Years [...] PM CDT Appointment [facility] [address] [place] [phone] Kingsley Westbrook DPM [address] [place], [place] [address] documented as of this encounter Goals Goal Patient Goal Type Associated Problems Recent Progress Patient-Stated? Author Financial Wellbeing General Yes Rosey Alexander, ELECTRICAL TECHNOLOGY INSTRUCTOR documented as of this encounter Visit Diagnoses Not on filedocumented in this encounter Additional Health Concerns Infection Onset Date Last Indicated Resolved Time MRSA Comment:MRSA at outside facility per 09/01/16 ammunition components inspector note; left foot tissue 10/08/16 10/11/2018 02/27/2019 Assessment Noted Time PHQ-9 Depression Total Score: 10 020 4:12 PM [facility] documented as of this encounter Care Teams Team Physician Relationship Specialty Start Date End Date Madhuri Whitman APRN TIPPING MACHINE OPERATOR PCP - General Nurse Practitioner - Family 09/04/16 08/23/20 [place] [address] [place] [address] PCP - General Family Medicine 08/24/20 01/23/22 No Ref-Primary, Physician PCP - General 02/20/22 06/29/22 [place] [address] [place] [address] PCP - General Family Medicine 06/30/22 [place] [address] [facility] [address] [place], [place] [address] Podiatry 10/18/16 Altagracia Alexander DPM, Podiatry/Foot and Ankle Surgery [address] [place], [place] [address] Assigned Musculoskeletal Provider 01/09/20 10/30/20 [place] [address] [place] [address] Assigned PCP 02/01/20 08/28/20 Cy Leonardo Personal Advocate & Liaison (PAL) 08/26/20 10/13/20 [place] [address] [place] [address] Assigned PCP 08/29/20 10/08/23 Rebecca Palumbo MD [address] [place] [address] 297 [employer], [place] 341495 Assigned Neuroscience Provider 10/01/20 10/14/21 Anders Ramachandran Personal Advocate & Liaison (PAL) 10/14/20 07/07/21 Magdalena Brice Personal Advocate & Liaison (PAL) 11/14/21 12/27/21 Maddie Mae Personal Advocate & Liaison (PAL) Family Medicine 12/28/21 Aydee Mcgill RN RN Clinical Product Navigator Primary Care - CC 06/30/22 06/30/22 Wendy Agustin APRN [facility] [address] [facility] [address] [place] [address] Assigned PCP 10/09/23 documented as of this encounter
--- OUTSIDE RECORDS SUMMARY | 2023-12-15 02:21 | XMS_ITS | Encounter Summary ---
Author Organization [facility] Address [address] [place] [address] Care Team Providers Care Flatwork Ironer Name Role Phone Madhuri Whitman APRN DOCTOR PODIATRIC MEDICINE Primary Care Prov ider Edu [place] DPM Unavailable Altagracia Alexander DPM, Podiatry /Foot and Ankle Surgery Unavailable Enrico Felton DO Unavailable [phone] Enrico Felton DO Primary Care Provider [phone] Cy Leonardo Unavailable Unavailable Enrico Felton DO Unavailable [phone] Rebecca Palumbo MD Unavailable [phone] Anders Ramachandran Unavailable Unavailable Magdalena Brice Unavailable Unavailable Maddie Mae Unavailable Unavailable No Ref-Primary, Physician Primary Care Provider Enrico Felton DO Primary Care Provider [phone] Aydee Mcgill RN Unavailable [phone] Wendy Agustin APRN DOCTOR PODIATRIC MEDICINE Unavailable [phone] Reason for Visit * Reason Comments Medication Refill Encounter Details Date Type Department Care Team (Late st Contact Info) Description 05/19/[address], [address] [place] [address] Craig Montenegro PA-C [address] [place] [address] Medication Refill Social History Tobacco Use Types [...] lvm. Sending second MyChart message. Maeve Smalls- Collections Officer WELDER * Telephone Encounter - Camila Mejia - 05/20/2020 2:41 PM CST 1st attempt, sent [employer]st message to schedule px & fasting labs WELDER * Telephone Encounter - Earline Powell, RN - 05/20/2020 2:03 PM CST Please help patient schedule fasting px. Last labs 06/2018. Visit Type Follow Up 01/21/2020 Enrico Felton DO Virtual Visit Return in about 3 months (around 04/22/2020) for Routine preventive. Route to refill if med coverage needed. Earline Powell RN WELDER documented in this encounter Plan of Treatment Upcoming Encounters Date Type Department Care Team (Late st Contact Info) Description 12/21/2023 2:00 PM CDT Appointment [facility] [address] [place] [phone] Kingsley Westbrook, DPBharath [address] [place], [place] [address] documented as of this encounter Goals Goal Patient Goal Type Associated Problems Recent Progress Patient-Stated? Author Financial Wellbeing General Yes Rosey Alexander, SALES REPRESENTATIVE EDUCATION COURSES documented as of this encounter Visit Diagnoses Diagnosis Hyperlipidemia with target LDL less than 100 Other and unspecified hyperlipidemia documented in this encounter Additional Health Concerns Infection Onset Date Last Indicated Resolved Time MRSA Comment:MRSA at outside facility per 09/01/16 body presser note; left foot tissue 10/08/16 10/11/2018 02/27/2019 Assessment Noted Time PHQ-9 Depression Total Score: 10 020 4:12 PM GUN WELDER documented as of this encounter Care Teams Flatwork Ironer Relationship Specialty Start Date End Date Madhuri Whitman APRN DOCTOR PODIATRIC MEDICINE PCP - General Nurse Practitioner - Family 09/04/16 08/23/20 [place] [address] [place] [address] PCP - General Family Medicine 08/24/20 01/23/22 No Ref-Primary, Physician PCP - General 02/20/22 06/29/22 [place] [address] [place] [address] PCP - General Family Medicine 06/30/22 [place] [address] [facility] [address] [place], [place] [address] Podiatry 10/18/16 Altagracia Alexander DPM, Podiatry/Foot and Ankle Surgery [address] [facility] [address] [place], [place] [address] Assigned Musculoskeletal Provider 01/09/20 10/30/20 [place] [address] [place] [address] Assigned PCP 02/01/20 08/28/20 Cy Leonardo Personal Advocate & Liaison (PAL) 08/26/20 10/13/20 [place] [address] [place] [address] Assigned PCP 08/29/20 10/08/23 Rebecca Palumbo MD [address] [place] [address] 297 [place], [place] [address] Assigned Neuroscience Provider 10/01/20 10/14/21 Anders Ramachandran Personal Advocate & Liaison (PAL) 10/14/20 07/07/21 Magdalena Brice Personal Advocate & Liaison (PAL) 11/14/21 12/27/21 Maddie Mae Personal Advocate & Liaison (PAL) Family Medicine 12/28/21 Aydee Mcgill RN RN Clinical Product Navigator Primary Care - CC 06/30/22 06/30/22 Wendy Agustin APRN DOCTOR PODIATRIC MEDICINE [address] [facility] [address] [place], [place] [address] Assigned PCP 10/09/23 documented as of this encounter
--- OUTSIDE RECORDS SUMMARY | 2023-12-15 02:21 | XMS_ITS | Encounter Summary ---
Author Organization [facility] Address [address] [place] [address] Care Team Providers Care Sign Painter Helper Name Role Phone YvetteEdu DPM Unavailable [phone] Enrico Felton DO Primary Care Provider [phone] Enrico Felton DO Unavailable [phone] Rebecca Palumbo MD Unavailable [phone] Anders Ramachandran Unavailable Unavailable Magdalena Brice Unavailable Unavailable Maddie Mae Unavailable Unavailable No Ref-Primary, Physician Primary Care Provider Enrico Felton DO Primary Care Provider [phone] Aydee Mcgill RN Unavailable [phone] Wendy Agustin APRN LINKING MACHINE OPERATOR Unavailable [phone] Encounter Details Date Type Department Care Team (Late st Contact Info) Description 02/24/2021 MyC Medical Advice [facility] [address] [place] [phone] [employer] Social History Tobacco Use [...] 2:00 PM CDT Appointment [facility] [address] [place] [phone] Kingsley Westbrook DPM 420 [place], [place] [address] documented as of this encounter Goals Goal Patient Goal Type Associated Problems Recent Progress Patient-Stated? Author Financial Wellbeing General Yes Rosey Alexander K, PROPAGATOR LABORER documented as of this encounter Visit Diagnoses Not on filedocumented in this encounter Additional Health Concerns Infection Onset Date Last Indicated Resolved Time MRSA Comment:MRSA at outside facility per 09/01/16 client services representative note; left foot tissue 10/08/16 10/11/2018 02/27/2019 Assessment Noted Time PHQ-9 Depression Total Score: 3 08/24/19 21 12:19 PM CDT documented as of this encounter Care Teams Sign Painter Helper Relationship Specialty [place] [address] [place] [address] PCP - General Family Medicine 08/24/20 01/23/22 No Ref-Primary, Physician PCP - General 02/20/22 06/29/22 [place] [address] [place] [address] PCP - General Family Medicine 06/30/22 [place] [address] [facility] [address] [place] [address] Podiatry 10/18/16 [place] [address] [place] [address] Assigned PCP 08/29/20 10/08/23 Rebecca Palumbo MD [address] [place] [address] 297 [place] [address] Assigned Neuroscience Provider 10/01/20 10/14/21 Anders Ramachandran Personal Advocate & Liaison (PAL) 10/14/20 07/07/21 Magdalena Brice Personal Advocate & Liaison (PAL) 11/14/21 12/27/21 Maddie Mae Personal Advocate & Liaison (PAL) Family Medicine 12/28/21 Aydee Mcgill RN RN Clinical Product Navigator Primary Care - CC 06/30/22 06/30/22 Wendy Agustin APRN LINKING MACHINE OPERATOR [facility] [address] [facility] [address] [place] [address] Assigned PCP 10/09/23 documented as of this encounter
--- OUTSIDE RECORDS SUMMARY | 2023-12-15 02:21 | XMS_ITS | Encounter Summary ---
Author Organization [facility] Address [address] [place] [address]. [place] [address] Care Team Providers Care Stadium Attendant Name Role Phone Yvette Edu DPM Unavailable [phone] Enrico Felton DO Primary Care Provider [phone] Enrico Felton DO Unavailable [phone] Rebecca Palumbo MD Unavailable [phone] Anders Ramachandran Unavailable Unavailable Magdalena Brice Unavailable Unavailable Maddie Mae Unavailable Unavailable No Ref-Primary, Physician Primary Care Provider Enrico Felton DO Primary Care Provider [phone] Aydee Mcgill RN Unavailable [phone] Wendy Agustin APRN NNP Unavailable [phone] Encounter Details Date Type Department Care Team (Late st Contact Info) Description 03/10/2021 MyC Medical Advice [facility] [address] [place] [phone] [place] [address] [place] [address] Social History Tobacco Use Types Packs/Day [...] [facility] [address] [place] [address] [address] [place] [address] Kingsley Westbrook DPM 420 [place], [place] [address] documented as of this encounter Goals Goal Patient Goal Type Associated Problems Recent Progress Patient-Stated? Author Financial Wellbeing General Yes Rosey Alexander, ENVIRONMENTAL SERVICES ASSISTANT documented as of this encounter Visit Diagnoses Not on filedocumented in this encounter Additional Health Concerns Infection Onset Date Last Indicated Resolved Time MRSA Comment:MRSA at outside facility per 09/01/16 tripe scraper note; left foot tissue 10/08/16 10/11/2018 02/27/2019 Assessment Noted Time PHQ-9 Depression Total Score: 3 08/24/19 21 12:19 PM CDT documented as of this encounter Care Teams Stadium Attendant Relationship Specialty [place] [address] [place] [address] PCP - General Family Medicine 08/24/20 01/23/22 No Ref-Primary, Physician PCP - General 02/20/22 06/29/22 [place] [address] [place] [address] PCP - General Family Medicine 06/30/22 [place] [address] [facility] [address] [place] [address] Podiatry 10/18/16 [place] [address] [address] Assigned PCP 08/29/20 10/08/23 Rebecca Palumbo MD [address] [place] [address] 297 [place], [place] 8[address] Assigned Neuroscience Provider 10/01/20 10/14/21 Anders Ramachandran Personal Advocate & Liaison (PAL) 10/14/20 07/07/21 Magdalena Brice Personal Advocate & Liaison (PAL) 11/14/21 12/27/21 Maddie Mae Personal Advocate & Liaison (PAL) Family Medicine 12/28/21 Aydee Mcgill RN ROQUE Clinical Product Navigator Primary Care - CC 06/30/22 06/30/22 Wendy Agustin APRN NNP [address] [facility] [address] [place] [address] Assigned PCP 10/09/23 documented as of this encounter
--- OUTSIDE RECORDS SUMMARY | 2023-12-15 02:22 | XMS_ITS | Encounter Summary ---
Author Organization [place] Address [address] [place] [address] Care Team Providers Care [employer] Founder Name Role Phone Madhuri Whitman DRAW BENCH OPERATOR HELPER SWATCH FOLDER Primary Care Prov ider Kaylen Aiken RN Unavailable [phone] Edu CrawfordM Unavailable [phone] Madhuri Whitman APRN SWATCH FOLDER Unavailable + Madhuri Whitman APRN SWATCH FOLDER Unavailable + Rosey Alexander POMPOM MAKER Unavailable Rosey Alexander POMPOM MAKER Unavailable [phone] rCaig Montenegro PA-C Unavailable [phone] Altagracia Alexander DPM, Podiatry /Foot and Ankle Surgery Unavailable Enrico Felton DO Unavailable [phone] Enrico Felton DO Primary Care Provider [phone] Cy Leonardo Unavailable Unavailable Enrico Felton DO Unavailable [phone] Rebecca Palumbo MD Unavailable [phone] Anders Ramachandran Unavailable Unavailable Magdalena Brice Unavailable Unavailable Maddie Mae Unavailable Unavailable No Ref-Primary, Physician Primary Care Provider Enrico Felton DO Primary Care Provider Aydee Mcgill RN Unavailable [phone] Wendy Agustin DRAW BENCH OPERATOR HELPER SWATCH FOLDER Unavailable [phone] Encounter Details Date Type Department Care Team (Late st Contact Info) Description 06/22/2017 MyC Medical Advice [address], [address] [place] [address] Malou Vallejo Social History Tobacco [...] Info) Description 12/21/2023 2:00 PM CDT Appointment [facility] [address] [place] [address] Kingsley Westbrook DPM [address] [place] [address] documented as of this encounter Visit Diagnoses Not on filedocumented in this encounter Additional Health Concerns Infection Onset Date Last Indicated Resolved Time 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 per 09/01/16 specimen boss note; left foot tissue 10/08/16 09/01/2016 09/01/2016 10/11/2018 7:49 AM C DT MRSA Comment:MRSA at outside facility per 09/01/16 specimen boss note; left foot tissue 10/08/16 10/11/2018 02/27/2019 Assessment Noted Time PHQ-9 Depression Total Score: 4 02/22/20 17 1:32 PM CABINET PROFESSIONAL documented as of this encounter Care Teams [employer] Founder Relationship Specialty Start Date End Date Madhuri Whitman APRN SWATCH FOLDER PCP - General Nurse Practitioner - Family 09/04/16 08/23/20 Madhuri Whitman APRN SWATCH FOLDER [address] [place] [address] PCP - Assigned PCP 09/03/16 05/21/18 [place] [address] [place] [address] PCP - General Family Medicine 08/24/20 01/23/22 No Ref-Primary, Physician PCP - General 02/20/22 06/29/22 [place] [address] [place] [address] PCP - General Family Medicine 06/30/22 Kaylen Aiken, ROQUE Clinic Elementary Supervisor 10/18/16 [place] [address] [facility] [address] [place] [address] Podiatry 10/18/16 Madhuri Whitman APRN SWATCH FOLDER [address] [place] [address] Assigned PCP 09/03/16 09/27/19 Rosey Alexander LSW Clinic Elementary Supervisor Primary Care - CC 09/27/18 9 Rosey Alexander LSW Lead Elementary Supervisor Primary Care - CC 11/08/18 05/07/19 Craig Montenegro PA-C [address] [place] [address] Assigned PCP 09/28/19 01/31/20 Altagracia Alexander, DPM, Podiatry/Foot and Ankle Surgery [address] [place] [address] Assigned Musculoskeletal Provider 01/09/20 10/30/20 [place] [address] [place] [address] Assigned PCP 02/01/20 08/28/20 Cy Leonardo Personal Advocate & Liaison (PAL) 08/26/20 10/13/20 [place] [address] [place] [address] Assigned PCP 08/29/20 10/08/23 Rebecca Palumbo MD [address] [place] [address] [address] [place] [address] Assigned Neuroscience Provider 10/01/20 10/14/21 Anders Ramachandran Personal Advocate & Liaison (PAL) 10/14/20 07/07/21 Magdalena Brice Personal Advocate & Liaison (PAL) 11/14/21 12/27/21 Maddie Mae Personal Advocate & Liaison (PAL) Family Medicine 12/28/21 Aydee Mcgill RN ROQUE Clinical Product Navigator Primary Care - CC 06/30/22 06/30/22 Wendy Agustin APRN SWATCH FOLDER [address] [facility] [address] [place], [place] [address] Assigned PCP 10/09/23 [facility] 10/18/16 06/24/17 [facility] 07/27/17 08/14/17 documented as of this encounter
--- OUTSIDE RECORDS SUMMARY | 2023-12-15 02:22 | XMS_ITS | Encounter Summary ---
Author Organization [place] Address [address] [place] [address] Care Team Providers Care Director Global Intelligence Name Role Phone Dwayne Draper MD Primary Care Provider + DoctorHawa MD Primary Care Provider Unavailabl e Madhuri Whitman HANDBAG PARTS CUTTER ACCOUNTS SUPERVISOR Primary Care Prov ider Kaylen Aiken RN Unavailable [phone] Edu Crawford DPM Unavailable [phone] Madhuri Whitman HANDBAG PARTS CUTTER ACCOUNTS SUPERVISOR Unavailable + Madhuri Whitman HANDBAG PARTS CUTTER ACCOUNTS SUPERVISOR Unavailable + Rosey Alexander FOOD AND BEVERAGE CASHIER Unavailable [phone] Rosey Alexander FOOD AND BEVERAGE CASHIER Unavailable [phone] Craig Montenegro PA-C Unavailable +[phone] Altagracia Alexander DPM, Podiatry /Foot and Ankle Surgery Unavailable Enrico Felton DO Unavailable [phone] Enrico Felton DO Primary Care Provider [phone] Cy Leonardo Unavailable Unavailable Enrico Felton DO Unavailable [phone] Rebecca Palumbo MD Unavailable [phone] Anders Ramachandran Unavailable Unavailable Magdalena Brice Unavailable Unavailable Maddie Mae Unavailable Unavailable No Ref-Primary, Physician Primary Care Provider Enrico Felton DO Primary Care Provider [phone] Aydee Mcgill RN Unavailable Wendy Agustin HANDBAG PARTS CUTTER ACCOUNTS SUPERVISOR Unavailable [phone] Reason for Visit * Reason Onset Date Comments Refill Request 02/03/2013 Encounter Details Date Type Department Care Team (Late st Contact Info) Description 02/03/2013 MyC Refill M [address], [address] [place] [address] [place] [address] [place] [address] Refill Request Social History Tobacco [...] MG tablet [Dwayne Draper MD] Preferred pharmacy: [id number] [address] Comment: because of the holidays I was wondering if you could send my prescription for my pain to [facility] in [place] they are due on the Jan. 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 Spinal stenosis, unspecified region other than cervical documented in this encounter Additional Health Concerns Infection Onset Date Last Indicated Resolved Time 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 per 09/01/16 disc pad grinder note; left foot tissue 10/08/16 09/01/2016 09/01/2016 10/11/2018 7:49 AM C DT MRSA Comment:MRSA at outside facility per 09/01/16 disc pad grinder note; left foot tissue 10/08/16 10/11/2018 02/27/2019 documented as of this encounter Care Teams Director Global Intelligence Relationship Specialty Start Date End Date Dwayne rDaper MD PCP - General Family Practice 07/11/11 05/28/14 Hawa Wasserman MD PCP - General 06/29/15 09/03/16 Madhuri Whitman APRN ACCOUNTS SUPERVISOR PCP - General Nurse Practitioner - Family 09/04/16 08/23/20 Madhuri Whitman APRN ACCOUNTS SUPERVISOR [address] [place] [address] PCP - Assigned PCP 09/03/16 05/21/18 [place] [address] [place] [address] PCP - General Family Medicine 08/24/20 01/23/22 No Ref-Primary, Physician PCP - General 02/20/22 06/29/22 [place] [address] [place] [address] PCP - General Family Medicine 06/30/22 Kaylen Aiken, ROQUE Clinic Social Studies Department Chair 10/18/16 [place] [address] [facility] [address] [place] [address] Podiatry 10/18/16 Madhuri Whitman APRN CNP [address] [place] [address] Assigned PCP 09/03/16 09/27/19 Rosey Alexander, [facility] Clinic Social Studies Department Chair Primary Care - CC 09/27/18 9 Rosey Alexander, [facility] Lead Social Studies Department Chair Primary Care - CC 11/08/18 05/07/19 Craig Montenegro PA-C [address] [place] [address] Assigned PCP 09/28/19 01/31/20 Altagracia Alexander DPM, Podiatry/Foot and Ankle Surgery [address] [place] [address] Assigned Musculoskeletal Provider 01/09/20 10/30/20 [place] [address] [place] [address] Assigned PCP 02/01/20 08/28/20 Cy Leonardo Personal Advocate & Liaison (PAL) 08/26/20 10/13/20 [place] [address] [place] [address] Assigned PCP 08/29/20 10/08/23 Rebecca Palumbo MD [address] [place] [address] [address] [place], [place] [id number] Assigned Neuroscience Provider 10/01/20 10/14/21 Anders Ramachandran Personal Advocate & Liaison (PAL) 10/14/20 07/07/21 Magdalena Brice Personal Advocate & Liaison (PAL) 11/14/21 12/27/21 Maddie Mae Personal Advocate & Liaison (PAL) Family Medicine 12/28/21 Aydee Mcgill RN ROQUE Clinical Product Navigator Primary Care - CC 06/30/22 06/30/22 Wendy Agustin APRN ACCOUNTS SUPERVISOR [address] [facility] [address] [place], [place] [address] Assigned PCP 10/09/23 [facility] 10/18/16 06/24/17 [facility] 07/27/17 08/14/17 documented as of this encounter
--- OUTSIDE RECORDS SUMMARY | 2023-12-15 02:22 | XMS_ITS | Encounter Summary ---
Author Organization [place] Address [address] [place] [address] Care Team Providers Care Pari Mutual Ticket Checker Name Role Phone Dwayne Draper MD Primary Care Provider + DoctorHawa MD Primary Care Provider Unavailabl e Madhuri Whitman WAITER/WAITRESS FIRST CLASS MUSIC ADAPTER Primary Care Prov ider Kaylen Aiken RN Unavailable [phone] Edu Crawford DPM Unavailable [phone] Madhuri Whitman WAITER/WAITRESS FIRST CLASS MUSIC ADAPTER Unavailable + Madhuri Whitman WAITER/WAITRESS FIRST CLASS MUSIC ADAPTER Unavailable + Rosey Alexander MUCK HAULER Unavailable [phone] Rosey Alexander MUCK HAULER Unavailable [phone] Craig Montenegro PA-C Unavailable [phone] Altagracia Alexander DPM, Podiatry /Foot and Ankle Surgery Unavailable Enrico Felton DO Unavailable [phone] Enrico Felton DO Primary Care Provider [phone] Cy Leonardo Unavailable Unavailable Enrico Felton DO Unavailable [phone] Rebecca Palumbo MD Unavailable [phone] Anders Ramachandran Unavailable Unavailable Magdalena Brice Unavailable Unavailable Maddie Mae Unavailable Unavailable No Ref-Primary, Physician Primary Care Provider Enrico Felton DO Primary Care Provider [phone] Aydee Mcgill RN Unavailable [phone] Wendy Agustin WAITER/WAITRESS FIRST CLASS MUSIC ADAPTER Unavailable [phone] Encounter Details Date Type Department Care Team (Late st Contact Info) Description 06/17/2012 MyC Medical Advice [address], [address] [place] [address] [facility] Social History Tobacco Use Types Packs/Day [...] Appointment [facility] Wound [address] [place] [address] Kingsley Westbrook DPM [address] [place] [address] documented as of this encounter Visit Diagnoses Not on filedocumented in this encounter Additional Health Concerns Infection Onset Date Last Indicated Resolved Time 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 per 09/01/16 security technician note; left foot tissue 10/08/16 09/01/2016 09/01/2016 10/11/2018 7:49 AM C DT MRSA Comment:MRSA at outside facility per 09/01/16 security technician note; left foot tissue 10/08/16 10/11/2018 02/27/2019 documented as of this encounter Care Teams Pari Mutual Ticket Checker Relationship Specialty Start Date End Date Dwayne Draper MD PCP - General Family Practice 4/24/12 3/12/15 Hawa Wasserman, PCP - General 06/29/15 09/03/16 Madhuri Whitman APRN MUSIC ADAPTER PCP - General Nurse Practitioner - Family 09/04/16 08/23/20 Madhuri Whitman APRN MUSIC ADAPTER [address] [place] [address] PCP - Assigned PCP 09/03/16 05/21/18 [place] [address] [place] [address] PCP - General Family Medicine 08/24/20 01/23/22 No Ref-Primary, Physician PCP - General 02/20/22 06/29/22 [place] [address] [place] [address] PCP - General Family Medicine 06/30/22 Kaylen Aiken, ROQUE Clinic Rn Surgical 10/18/16 Edu Crawford DPM [address] [facility] [address] [place] [address] Podiatry 10/18/16 Madhuri Whitman APRN MUSIC ADAPTER [address] [address] Assigned PCP 09/03/16 09/27/19 Rosey Alexander LSW Clinic Rn Surgical Primary Care - CC 09/27/18 9 Rosey Alexander, MUCK HAULER Lead Rn Surgical Primary Care - CC 11/08/18 05/07/19 Craig Montenegro PA-C [address] [place] [address] Assigned PCP 09/28/19 01/31/20 Altagracia Alexander DPM, Podiatry/Foot and Ankle Surgery [address] [place] [address] Assigned Musculoskeletal Provider 01/09/20 10/30/20 [place] [address] [place] [address] Assigned PCP 02/01/20 08/28/20 Cy Leonardo Personal Advocate & Liaison (PAL) 08/26/20 10/13/20 [place] [address] [place] [address] Assigned PCP 08/29/20 10/08/23 Rebecca Palumbo MD [address] [place] [id number] Assigned Neuroscience Provider 10/01/20 10/14/21 Anders Ramachandran Personal Advocate & Liaison (PAL) 10/14/20 07/07/21 Magdalena Brice Personal Advocate & Liaison (PAL) 11/14/21 12/27/21 Maddie Mae Personal Advocate & Liaison (PAL) Family Medicine 12/28/21 Aydee Mcgill, RN RN Clinical Product Navigator Primary Care - CC 06/30/22 06/30/22 Wendy Agustin APRN MUSIC ADAPTER [address] [facility] [address] [place] [address] Assigned PCP 10/09/23 [facility] [employer] 10/18/16 06/24/17 [facility] [employer] 07/27/17 08/14/17 documented as of this encounter
--- OUTSIDE RECORDS SUMMARY | 2023-12-15 02:22 | XMS_ITS | Encounter Summary ---
Author Organization [place] Address [address] [place] [address] Care Team Providers Care Dairy Chemist Name Role Phone Madhuri Whitman CAMPUS SUPERVISOR ENGINEERING AIDE Primary Care Prov ider Kaylen Aiken RN Unavailable [phone] Edu CrawfordM Unavailable [phone] Madhuri Whitman APRN ENGINEERING AIDE Unavailable + Madhuri Whitman APRN ENGINEERING AIDE Unavailable + Rosey Alexander AIR FILLER Unavailable Rosey Alexander AIR FILLER Unavailable [phone] Craig Montenegro PA-C Unavailable [phone] Altagracia Alexander DPM, Podiatry /Foot and Ankle Surgery Unavailable Enrico Felton DO Unavailable [phone] Enrico Felton DO Primary Care Provider [phone] Cy Leonardo Unavailable Unavailable Enrico Felton DO Unavailable [phone] Rebecca Palumbo MD Unavailable [phone] Anders Ramachandran Unavailable Unavailable Magdalena Brice Unavailable Unavailable Maddie Mae Unavailable Unavailable No Ref-Primary, Physician Primary Care Provider Enrico Felton DO Primary Care Provider Aydee Mcgill RN Unavailable [phone] Wendy Agustin APRN ENGINEERING AIDE Unavailable [phone] Encounter Details Date Type Department Care Team (Late st Contact Info) Description 11/27/2016 MyC Medical Advice [address], [address] [place] [address] Malou Vallejo Social History Tobacco [...] Appointment [facility] [address] [place] [address] Kingsley Westbrook, GAYLA [address] [place] [address] documented as of this encounter Visit Diagnoses Not on filedocumented in this encounter Additional Health Concerns Infection Onset Date Last Indicated Resolved Time 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 per 09/01/16 exam proctor note; left foot tissue 10/08/16 09/01/2016 09/01/2016 10/11/2018 7:49 AM C DT MRSA Comment:MRSA at outside facility per 09/01/16 exam proctor note; left foot tissue 10/08/16 10/11/2018 02/27/2019 documented as of this encounter Care Teams Dairy Chemist Relationship Specialty Start Date End Date Madhuri Whitman APRN ENGINEERING AIDE PCP - General Nurse Practitioner - Family 09/04/16 08/23/20 Madhuri Whitman APRN ENGINEERING AIDE [address] [place] [address] PCP - Assigned PCP 09/03/16 05/21/18 [place] [address] [place] [address] PCP - General Family Medicine 08/24/20 01/23/22 No Ref-Primary, Physician PCP - General 02/20/22 06/29/22 [place] [address] [place] [address] PCP - General Family Medicine 06/30/22 Kaylen Aiken, ROQUE Clinic Agricultural Technical Officer 10/18/16 Edu Crawford DPM [address] [facility] [address] [place], [place] [address] Podiatry 10/18/16 Madhuri Whitman APRN ENGINEERING AIDE [address] [address] Assigned PCP 09/03/16 09/27/19 Rosey Alexander LSW Clinic Agricultural Technical Officer Primary Care - CC 09/27/18 9 Rosey Alexander LSW Lead Agricultural Technical Officer Primary Care - CC 11/08/18 05/07/19 Craig Montenegro PA-C [address] [address] Assigned PCP 09/28/19 01/31/20 Altagracia Alexander, DPM, Podiatry/Foot and Ankle Surgery [address] [place] [address] Assigned Musculoskeletal Provider 01/09/20 10/30/20 [place] [address] [place] [address] Assigned PCP 02/01/20 08/28/20 Cy Leonardo Personal Advocate & Liaison (PAL) 08/26/20 10/13/20 [place] [address] [place] [address] Assigned PCP 08/29/20 10/08/23 Rebecca Palumbo MD [address] [place] [address] 297 [place], [place] [address] Assigned Neuroscience Provider 10/01/20 10/14/21 Anders Ramachandran Personal Advocate & Liaison (PAL) 10/14/20 07/07/21 Magdalena Brice Personal Advocate & Liaison (PAL) 11/14/21 12/27/21 Maddie Mae Personal Advocate & Liaison (PAL) Family Medicine 12/28/21 Aydee Mcgill, RN RN Clinical Product Navigator Primary Care - CC 06/30/22 06/30/22 Wendy Agustin APRN ENGINEERING AIDE [address] [facility] [address] [place] [address] Assigned PCP 10/09/23 [place] [phone] (Work) [facility] 10/18/16 06/24/17 [facility] 07/27/17 08/14/17 documented as of this encounter
--- OUTSIDE RECORDS SUMMARY | 2023-12-15 02:22 | XMS_ITS | Encounter Summary ---
Author Organization [place] Address [address] [place] [address] Care Team Providers Care Lpn Cma Name Role Phone Madhuri Whitman DUST COLLECTOR ORE CRUSHING SECURITY ADMINISTRATOR Primary Care Prov ider Edu Crawford DPM Unavailable [phone] Madhuri Whitman APRN SECURITY ADMINISTRATOR Unavailable + Madhuri Whitman APRN SECURITY ADMINISTRATOR Unavailable + Rosey Alexander WELDER MACHINE OPERATOR Unavailable [phone] Rosey Alexander WELDER MACHINE OPERATOR Unavailable [phone] Craig Montenegro PA-C Unavailable [phone] Altagracia Alexander DPM, Podiatry /Foot and Ankle Surgery Unavailable Enrico Felton DO Unavailable [phone] Enrico Felton DO Primary Care Provider [phone] Cy Leonardo Unavailable Unavailable Enrico Felton DO Unavailable [phone] Rebecca Palumbo MD Unavailable [phone] Anders Ramachandran Unavailable Unavailable Magdalena Brice Unavailable Unavailable Maddie Mae Unavailable Unavailable No Ref-Primary, Physician Primary Care Provider Enrico Felton DO Primary Care Provider [phone] Aydee Mcgill RN Unavailable [phone] Wendy Agustin APRN SECURITY ADMINISTRATOR Unavailable [phone] Encounter Details Date Type Department Care Team (Late st Contact Info) Description 01/07/2018 MyC Medical Advice [address] [id number] Carina Antoine, RN Social History Tobacco Use [...] Info) Description 12/21/2023 2:00 PM CDT Appointment [facility] Wound [address] [place] [phone] Kingsley Westbrook DPM [address] [place] [address] documented as of this encounter Visit Diagnoses Not on filedocumented in this encounter Additional Health Concerns Infection Onset Date Last Indicated Resolved Time 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 per 09/01/16 dba manager note; left foot tissue 10/08/16 09/01/2016 09/01/2016 10/11/2018 7:49 AM C DT MRSA Comment:MRSA at outside facility per 09/01/16 dba manager note; left foot tissue 10/08/16 10/11/2018 02/27/2019 Assessment Noted Time PHQ-9 Depression Total Score: 0 07/29/19 18 2:19 PM CDT documented as of this encounter Care Teams Lpn Cma Relationship Specialty Start Date End Date Madhuri Whitman APRN SECURITY ADMINISTRATOR PCP - General Nurse Practitioner - Family 09/04/16 08/23/20 Madhuri Whitman APRN SECURITY ADMINISTRATOR [address] [address] PCP - Assigned PCP 09/03/16 05/21/18 [place] [address] [place] [address] PCP - General Family Medicine 08/24/20 01/23/22 No Ref-Primary, Physician PCP - General 02/20/22 06/29/22 [place] [address] [place] [address] PCP - General Family Medicine 06/30/22 Edu Crawford DPM [address] [facility] [address] [place] [address] Podiatry 10/18/16 Madhuri Whitman APRN SECURITY ADMINISTRATOR [address] [address] Assigned PCP 09/03/16 09/27/19 Rosey Alexander, WELDER MACHINE OPERATOR Clinic Coat Operator Insulator Primary Care - CC 09/27/18 9 Rosey Alexander, WELDER MACHINE OPERATOR Lead Coat Operator Insulator Primary Care - CC 11/08/18 05/07/19 Craig Montenegro PA-C [address] [address] [place] [address] Assigned PCP 09/28/19 01/31/20 Altagracia Alexander DPM, Podiatry/Foot and Ankle Surgery [address] [place] [address] Assigned Musculoskeletal Provider 01/09/20 10/30/20 [place] [address] [place] [address] Assigned PCP 02/01/20 08/28/20 Cy Leonardo Personal Advocate & Liaison (PAL) 08/26/20 10/13/20 [place] [address] [place] [address] Assigned PCP 08/29/20 10/08/23 Rebecca Palumbo MD [address] [place] [address] 297 [place], [place] [address] Assigned Neuroscience Provider 10/01/20 10/14/21 Anders Ramachandran Personal Advocate & Liaison (PAL) 10/14/20 07/07/21 Magdalena Brice Personal Advocate & Liaison (PAL) 11/14/21 12/27/21 Maddie Mae Personal Advocate & Liaison (PAL) Family Medicine 12/28/21 Aydee Mcgill RN ROQUE Clinical Product Navigator Primary Care - CC 06/30/22 06/30/22 Wendy Agustin APRN SECURITY ADMINISTRATOR [address] [place], [place] [address] Assigned PCP 10/09/23 documented as of this encounter
--- OUTSIDE RECORDS SUMMARY | 2023-12-15 02:22 | XMS_ITS | Encounter Summary ---
Author Organization [facility] Address [address] [place] [address] Care Team Providers Care Drum Drier Name Role Phone Madhuri Whitman PRESSURIZER RESTORATIVE AIDE Primary Care Prov ider Edu Crawford DPM Unavailable [phone] Madhuri Whitman APRN RESTORATIVE AIDE Unavailable + Rosey Alexander EMS EDUCATOR Unavailable Rosey Alexander EMS EDUCATOR Unavailable [phone] Craig Montenegro PA-C Unavailable [phone] Altagracia Alexander DPM, Podiatry /Foot and Ankle Surgery Unavailable Enrico Felton DO Unavailable [phone] Enrico Felton DO Primary Care Provider [phone] Cy Leonardo Unavailable Unavailable Enrico Felton DO Unavailable Rebecca Palumbo MD Unavailable [phone] Anders Ramachandran Unavailable Unavailable Magdalena Brice Unavailable Unavailable Maddie Mae Unavailable Unavailable No Ref-Primary, Physician Primary Care Provider Enrico Felton DO Primary Care Provider [phone] Aydee Mcgill RN Unavailable [phone] Wendy Agustin PRESSURIZER RESTORATIVE AIDE Unavailable Encounter Details Date Type Department Care Team (Late st Contact Info) Description 06/14/2018 MyC Medical Advice [facility] [address] [facility], [address] [place] [phone] Melissa Flores, CLIENT TECHNICAL SUPPORT ASSOCIATE Social History Tobacco Use Types Packs/Day Years [...] [facility] Wound [address] [place] [phone] Kingsley Westbrook, G[address] [place] [address] documented as of this encounter Visit Diagnoses Not on filedocumented in this encounter Additional Health Concerns Infection Onset Date Last Indicated Resolved Time 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 per 09/01/16 rack carrier note; left foot tissue 10/08/16 09/01/2016 09/01/2016 10/11/2018 7:49 AM C DT MRSA Comment:MRSA at outside facility per 09/01/16 rack carrier note; left foot tissue 10/08/16 10/11/2018 02/27/2019 Assessment Noted Time PHQ-9 Depression Total Score: 0 07/29/19 18 2:19 PM CDT documented as of this encounter Care Teams Drum Drier Relationship Specialty Start Date End Date Madhuri Whitman APRN RESTORATIVE AIDE PCP - General Nurse Practitioner - Family 09/04/16 08/23/20 [place] [address] [place] [address] PCP - General Family Medicine 08/24/20 01/23/22 No Ref-Primary, Physician PCP - General 02/20/22 06/29/22 [place] [address] [place] [address] PCP - General Family Medicine 06/30/22 [place] [address] [facility] [address] [place] [address] Podiatry 10/18/16 Madhuri Whitman APRN RESTORATIVE AIDE [address] [place] [address] Assigned PCP 09/03/16 09/27/19 Rosey Alexander, [facility] Digital Product Specialist Primary Care - CC 09/27/18 9 Rosey Alexander, [facility] Lead Digital Product Specialist Primary Care - CC 11/08/18 05/07/19 Craig Montenegro PA-C [address] [place] [address] Assigned PCP 09/28/19 01/31/20 Altagracia Alexander DPM, Podiatry/Foot and Ankle Surgery [address] [facility] [address] [place] [address] Assigned Musculoskeletal Provider 01/09/20 10/30/20 [place] [address] [place] [address] Assigned PCP 02/01/20 08/28/20 Cy Leonardo Personal Advocate & Liaison (PAL) 08/26/20 10/13/20 [place] [address] [place] [address] Assigned PCP 08/29/20 10/08/23 Rebecca Palumbo MD [address] [place] [address] [address] [place], [place] [address] Assigned Neuroscience Provider 10/01/20 10/14/21 Anders Ramachandran Personal Advocate & Liaison (PAL) 10/14/20 07/07/21 Magdalena Brice Personal Advocate & Liaison (PAL) 11/14/21 12/27/21 Maddie Mae Personal Advocate & Liaison (PAL) Family Medicine 12/28/21 Aydee Mcgill RN ROQUE Clinical Product Navigator Primary Care - CC 06/30/22 06/30/22 Wendy Agustin APRN RESTORATIVE AIDE [address] [place], [place] [address] Assigned PCP 10/09/23 documented as of this encounter
--- OUTSIDE RECORDS SUMMARY | 2023-12-15 02:22 | XMS_ITS | Encounter Summary ---
Author Organization [place] Address [address] [place] [address] Care Team Providers Care Automotive Porter Name Role Phone Madhuri Whitman SURGICAL COORDINATOR ACCOUNT SPECIALIST Primary Care Prov ider Kaylen Aiken RN Unavailable [phone] Edu CrawfordM Unavailable [phone] Madhuri Whitman APRN ACCOUNT SPECIALIST Unavailable + Madhuri Whitman APRN ACCOUNT SPECIALIST Unavailable + Rosey Alexander DOCUMENT REVIEW ATTORNEY Unavailable Rosey Alexander DOCUMENT REVIEW ATTORNEY Unavailable [phone] Craig Montenegro PA-C Unavailable [phone] Altagracia Alexander DPM, Podiatry /Foot and Ankle Surgery Unavailable Enrico Felton DO Unavailable [phone] Enrico Felton DO Primary Care Provider [phone] Cy Leonardo Unavailable Unavailable Enrico Felton DO Unavailable [phone] Rebecca Palumbo MD Unavailable [phone] Anders Ramachandran Unavailable Unavailable Magdalena Brice Unavailable Unavailable Maddie Mae Unavailable Unavailable No Ref-Primary, Physician Primary Care Provider Jose FranciscoEnrico Primary Care Provider Aydee Mcgill RN Unavailable [phone] VamsiWendy WANDY ACCOUNT SPECIALIST Unavailable [phone] Reason for Visit * Reason Onset Date Comments Medication Refill 01/23/2017 PARoxetine (PA XIL) 20 MG tablet Encounter Details Date Type Department Care Team (Late st Contact Info) Description 01/22/[address], [address] [place] [address] Madhuri Whitman APRN CNP [address] [place] [address] Medication Refill (PARoxetine (PAXIL) 20 [...] to call clinic back. Kayleigh Foster RN ER MAKER * Telephone Encounter - Madhuri Whitman APRN CNP - 01/26/2017 1:26 PM FORCER MAKER Please call patient and update her PHQ9. Refilled x 1 month as I have not seen her for this in the past. Will need to either follow up with me in the next month for future refills or she could see ifher pain management provider is willing to prescribe for her. Madhuri Whitman CNP ER MAKER * Telephone Encounter - Kayleigh Foster RN [...] that she see's the pain clinic in [place] every 3 weeks and I asked that she schedule an appointment here when she goes to that appointment and she said there is no way her friend that drives her will sit in another doctors office and wait for her. Patient requesting an rx refill. Kayleigh Foster RN ER MAKER * Telephone Encounter - Gosia John RN - 01/25/2017 2:49 PM FORCER MAKER LM on to call back. Gosia Pastrana RN, BSN, N [facility] Doshi RN ER MAKER * Telephone Encounter - Madhuri Whitman APRN CNP - 01/25/2017 1:30 PM FORCER MAKER I have never seen her for this. Looks like it was last refilled while in patient and she is taking TID not BID?? Please call and verify dose. I will refill x 1 month and she needs to be seen in clinic for further refills. Madhuri Whitman CNP ER MAKER * Telephone Encounter - Kayleigh Foster RN - 01/23/2017 3:22 PM CST PHQ-9 SCORE 11/12/2012 11/28/2012 04/10/2013 Total Score 23 26 12 Routing refill request to provider for review/approval because: PHQ-9 > 4. Kayleigh Foster RN ER MAKER * Telephone Encounter - Laureen Baumann - 01/23/2017 2:07 PM CST PARoxetine (PAXIL) 20 MG tablet (Historical) Sig: Take 20 mg by mouth 3 times daily Last Written Prescription Date: Unknown Last Fill Quantity: Unknown, # refills: Unknown Last Office Visit with [facility], P or [facility] prescribing provider: 09/08/2016 Future Office visit: Paxil was increased in the hospital 10/06/16. Routing refill request to provider for review/approval because: Medication is reported/historical DOMINGO Katz January 23, 2017 2:10 PM ER MAKER documented in this encounter Plan of Treatment Upcoming Encounters Date Type Department Care Team (Late st Contact Info) Description 12/21/2023 2:00 PM CDT Appointment [facility] [place] [address] [place] [phone] Kingsley Westbrook DPM [address] [place] [address] documented as of this encounter Visit Diagnoses Diagnosis Single current episode of major depressive disorder, unspecified depression episode severity documented in this encounter Additional Health Concerns Infection Onset Date Last Indicated Resolved Time 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 per 09/01/16 family helper note; left foot tissue 10/08/16 09/01/2016 09/01/2016 10/11/2018 7:49 AM C DT MRSA Comment:MRSA at outside facility per 09/01/16 family helper note; left foot tissue 10/08/16 10/11/2018 02/27/2019 documented as of this encounter Care Teams Automotive Porter Relationship Specialty Start Date End Date Madhuri Whitman APRN ACCOUNT SPECIALIST PCP - General Nurse Practitioner - Family 09/04/16 08/23/20 Madhuri Whitman APRN ACCOUNT SPECIALIST [address] [place] [address] PCP - Assigned PCP 09/03/16 05/21/18 [place] [address] [place] [address] PCP - General Family Medicine 08/24/20 01/23/22 No Ref-Primary, Physician PCP - General 02/20/22 06/29/22 [place] [address] [place] [address] PCP - General Family Medicine 06/30/22 Kaylen Aiken, [facility] Clinic Bed And Breakfast Innkeeper 10/18/16 Edu Crawford DPM [id number] [place] [address] [address] [place] [address] Podiatry 10/18/16 Madhuri Whitman APRN CNP [address] [place] [address] Assigned PCP 09/03/16 09/27/19 Rosey Alexander, [facility] Clinic Bed And Breakfast Innkeeper Primary Care - CC 09/27/18 9 Rosey Alexander, [facility] Lead Bed And Breakfast Innkeeper Primary Care - CC 11/08/18 05/07/19 Craig Montenegro PA-C [address] [place] [address] Assigned PCP 09/28/19 01/31/20 Altagracia Alexander DPM, Podiatry/Foot and Ankle Surgery [address] [place] [address] Assigned Musculoskeletal Provider 01/09/20 10/30/20 [place] [address] [place] [address] Assigned PCP 02/01/20 08/28/20 Cy Leonardo Personal Advocate & Liaison (PAL) 08/26/20 10/13/20 [place] [address] [place] [address] Assigned PCP 08/29/20 10/08/23 Rebecca Palumbo MD [address] [place] [address] [address] [place], [place] [address] Assigned Neuroscience Provider 10/01/20 10/14/21 Anders Ramachandran Personal Advocate & Liaison (PAL) 10/14/20 07/07/21 Magdalena Brice Personal Advocate & Liaison (PAL) 11/14/21 12/27/21 Maddie Mae Personal Advocate & Liaison (PAL) Family Medicine 12/28/21 Aydee Mcgill RN ROQUE Clinical Product Navigator Primary Care - CC 06/30/22 06/30/22 Wendy Agustin APRN ACCOUNT SPECIALIST [address] [facility] [address] [place], [place] [address] Assigned PCP 10/09/23 [facility] 10/18/16 06/24/17 [facility] 07/27/17 08/14/17 documented as of this encounter
--- OUTSIDE RECORDS SUMMARY | 2023-12-15 02:22 | XMS_ITS | Encounter Summary ---
Author Organization [place] Address [address] [place] [address] Care Team Providers Care Molded Goods Embossing Press Operator Name Role Phone Dwayne Draper MD Primary Care Provider + DoctorHawa MD Primary Care Provider Unavailabl e Madhuri Whitman SOLUTIONS DEVELOPER AUTOMOTIVE PARTS ADVISOR Primary Care Prov ider Kaylen Aiken RN Unavailable [phone] Edu Crawford DPM Unavailable [phone] Madhuri Whitman SOLUTIONS DEVELOPER AUTOMOTIVE PARTS ADVISOR Unavailable + Madhuri Whitman SOLUTIONS DEVELOPER AUTOMOTIVE PARTS ADVISOR Unavailable + Rosey Alexander REMEDIAL TEACHER Unavailable [phone] Rosey Alexander REMEDIAL TEACHER Unavailable [phone] Craig Montenegro PA-C Unavailable +[phone] Altagracia Alexander DPM, Podiatry /Foot and Ankle Surgery Unavailable Enrico Felton DO Unavailable [phone] Enrico Felton DO Primary Care Provider [phone] Cy Leonardo Unavailable Unavailable Enrico Felton DO Unavailable [phone] Rebecca Palumbo MD Unavailable [phone] Anders Ramachandran Unavailable Unavailable Magdalena Brice Unavailable Unavailable Maddie Mae Unavailable Unavailable No Ref-Primary, Physician Primary Care Provider Enrico Felton DO Primary Care Provider [phone] Aydee Mcgill RN Unavailable [phone] Wendy Agustin SOLUTIONS DEVELOPER AUTOMOTIVE PARTS ADVISOR Unavailable [phone] Encounter Details Date Type Department Care Team (Late st Contact Info) Description 01/16/2012 MyC Medical Advice [address], [address] [place] [address] [facility] Social History Tobacco Use Types Packs/Day Years [...] PM CDT Appointment [facility] Wound [address] [place] [address] Kingsley Westbrook DPM [address] [place] [address] documented as of this encounter Visit Diagnoses Not on filedocumented in this encounter Additional Health Concerns Infection Onset Date Last Indicated Resolved Time 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 per 09/01/16 telescope repairer note; left foot tissue 10/08/16 09/01/2016 09/01/2016 10/11/2018 7:49 AM C DT MRSA Comment:MRSA at outside facility per 09/01/16 telescope repairer note; left foot tissue 10/08/16 10/11/2018 02/27/2019 documented as of this encounter Care Teams Molded Goods Embossing Press Operator Relationship Specialty Start Date End Date Dwayne Draper MD PCP - General Family Practice 07/11/11 05/28/14 Hawa Wasserman, PCP - General 06/29/15 09/03/16 Madhuri Whitman APRN AUTOMOTIVE PARTS ADVISOR PCP - General Nurse Practitioner - Family 09/04/16 08/23/20 Madhuri Whitman APRN AUTOMOTIVE PARTS ADVISOR [address] [place] [address] PCP - Assigned PCP 09/03/16 05/21/18 [place] [address] [place] [address] PCP - General Family Medicine 08/24/20 01/23/22 No Ref-Primary, Physician PCP - General 02/20/22 06/29/22 [place] [address] [place] [address] PCP - General Family Medicine 06/30/22 Kaylen Aiken, [facility] Advanced Registered Nurse 10/18/16 [place] [address] [facility] [address] [place] [address] Podiatry 10/18/16 Madhuri Whitman APRN AUTOMOTIVE PARTS ADVISOR [address] [address] [address] Assigned PCP 09/03/16 09/27/19 Rosey Alexander, [facility] Advanced Registered Nurse Primary Care - CC 09/27/18 9 Rosey Alexander, REMEDIAL TEACHER Lead Advanced Registered Nurse Primary Care - CC 11/08/18 05/07/19 Craig Montenegro PA-C [address] [place] [address] Assigned PCP 09/28/19 01/31/20 Altagracia Alexander DPM, Podiatry/Foot and Ankle Surgery [address] [place] [address] Assigned Musculoskeletal Provider 01/09/20 10/30/20 [place] [address] [place] [address] Assigned PCP 02/01/20 08/28/20 Cy Leonardo Personal Advocate & Liaison (PAL) 08/26/20 10/13/20 [place] [address] [place] [address] Assigned PCP 08/29/20 10/08/23 Rebecca Palumbo MD [address] [place] [id number] Assigned Neuroscience Provider 10/01/20 10/14/21 Anders Ramachandran Personal Advocate & Liaison (PAL) 10/14/20 07/07/21 Magdalena Brice Personal Advocate & Liaison (PAL) 11/14/21 12/27/21 Maddie Mae Personal Advocate & Liaison (PAL) Family Medicine 12/28/21 Aydee Mcgill RN RN Clinical Product Navigator Primary Care - CC 06/30/22 06/30/22 Wendy Agustin APRN AUTOMOTIVE PARTS ADVISOR [address] [facility] [address] [place] [address] Assigned PCP 10/09/23 [facility] Diagnostic [employer] 10/18/16 06/24/17 [facility] Diagnostic [employer] 07/27/17 08/14/17 documented as of this encounter
--- OUTSIDE RECORDS SUMMARY | 2023-12-15 02:22 | XMS_ITS | Encounter Summary ---
Author Organization [place] Address [address] [place] [address] Care Team Providers Care Instructor Private Name Role Phone Dwayne Draper MD Primary Care Provider + DoctorHawa MD Primary Care Provider Unavailabl e Madhuri Whitman TRADING ANALYST SENIOR ENTERPRISE ARCHITECT Primary Care Prov ider Kaylen Aiken RN Unavailable [phone] Edu Crawford DPM Unavailable [phone] Madhuri Whitman TRADING ANALYST SENIOR ENTERPRISE ARCHITECT Unavailable + Madhuri Whitman TRADING ANALYST SENIOR ENTERPRISE ARCHITECT Unavailable + Rosey Alxeander STRATEGIC PLANNING CONSULTANT Unavailable [phone] Rosey Alexander STRATEGIC PLANNING CONSULTANT Unavailable +[phone] Craig Montenegro PA-C Unavailable +[phone] Altagracia Alexander DPM, Podiatry /Foot and Ankle Surgery Unavailable Enrico Felton DO Unavailable [phone] Enrico Felton DO Primary Care Provider [phone] Cy Leonardo Unavailable Unavailable Enrico Felton DO Unavailable [phone] Rebecca Palumbo MD Unavailable [phone] Anders Ramachandran Unavailable Unavailable Magdalena Brice Unavailable Unavailable Maddie Mae Unavailable Unavailable No Ref-Primary, Physician Primary Care Provider Enrico Felton DO Primary Care Provider [phone] Aydee Mcgill RN Unavailable [phone] Wendy Agustin TRADING ANALYST SENIOR ENTERPRISE ARCHITECT Unavailable [phone] Encounter Details Date Type Department Care Team (Late st Contact Info) Description 01/25/2012 MyC Medical Advice [place] [address] [facility], [address] [place] [address] [place] [address] [place] [address] Social History Tobacco Use Types [...] Description 12/21/2023 2:00 PM CDT Appointment [facility] [place] [address] [place] [address] Kingsley Westbrook DPM [address] [place] [address] documented as of this encounter Visit Diagnoses Not on filedocumented in this encounter Additional Health Concerns Infection Onset Date Last Indicated Resolved Time 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 per 09/01/16 jeep mechanic note; left foot tissue 10/08/16 09/01/2016 09/01/2016 10/11/2018 7:49 AM C DT MRSA Comment:MRSA at outside facility per 09/01/16 jeep mechanic note; left foot tissue 10/08/16 10/11/2018 02/27/2019 documented as of this encounter Care Teams Instructor Private Relationship Specialty Start Date End Date Dwayne Draper MD PCP - General Family Practice 07/11/11 05/28/14 Hawa Wasserman MD PCP - General 06/29/15 09/03/16 Madhuri Whitman APRN SENIOR ENTERPRISE ARCHITECT PCP - General Nurse Practitioner - Family 09/04/16 08/23/20 Madhuri Whitman APRN SENIOR ENTERPRISE ARCHITECT [address] [address] [address] PCP - Assigned PCP 09/03/16 05/21/18 [place] [address] [place] [address] PCP - General Family Medicine 08/24/20 01/23/22 No Ref-Primary, Physician PCP - General 02/20/22 06/29/22 [place] [address] [place] [address] PCP - General Family Medicine 06/30/22 Kaylen Aiken, [facility] Clinic Host/Hostess Head 10/18/16 [place] [address] [facility] [address] [place] [address] Podiatry 10/18/16 Madhuri Whitman APRN SENIOR ENTERPRISE ARCHITECT [address] [address] [address] Assigned PCP 09/03/16 09/27/19 Rosey Alexander, STRATEGIC PLANNING CONSULTANT Clinic Host/Hostess Head Primary Care - CC 09/27/18 9 Rosey Alexander, STRATEGIC PLANNING CONSULTANT Lead Host/Hostess Head Primary Care - CC 11/08/18 05/07/19 Craig Montenegro PA-C [address] [place] [address] Assigned PCP 09/28/19 01/31/20 Altagracia Alexander DPM, Podiatry/Foot and Ankle Surgery [address] [place] [address] Assigned Musculoskeletal Provider 01/09/20 10/30/20 [place] [address] [place] [address] Assigned PCP 02/01/20 08/28/20 Cy Leonardo Personal Advocate & Liaison (PAL) 08/26/20 10/13/20 [place] [address] [place] [address] Assigned PCP 08/29/20 10/08/23 Rebecca Palumbo MD [address] [place] [address] [id number] Assigned Neuroscience Provider 10/01/20 10/14/21 Anders Ramachandran Personal Advocate & Liaison (PAL) 10/14/20 07/07/21 Magdalena Brice Personal Advocate & Liaison (PAL) 11/14/21 12/27/21 Maddie Mae Personal Advocate & Liaison (PAL) Family Medicine 12/28/21 Aydee Mcgill RN RN Clinical Product Navigator Primary Care - CC 06/30/22 06/30/22 Wendy Agustin APRN SENIOR ENTERPRISE ARCHITECT [address] [facility] [address] [place] [address] Assigned PCP 10/09/23 [facility] 10/18/16 06/24/17 [facility] 07/27/17 08/14/17 documented as of this encounter
--- OUTSIDE RECORDS SUMMARY | 2023-12-15 02:22 | XMS_ITS | Encounter Summary ---
Author Organization [facility] Address [address] [place] [address] Care Team Providers Care Green Prize Packer Name Role Phone Pramod Sweet MD Primary Care Provider + DoctorHawa MD Primary Care Provider Unavailabl e Madhuri Whitman STEVEDORING SUPERINTENDENT FREIGHT FLOW SALES LEADER Primary Care Prov ider Kaylen Aiken RN Unavailable [phone] Edu Crawford DPM Unavailable [phone] Madhuri Whitman STEVEDORING SUPERINTENDENT FREIGHT FLOW SALES LEADER Unavailable + Madhuri Whitman STEVEDORING SUPERINTENDENT FREIGHT FLOW SALES LEADER Unavailable + Rosey Alexander CARPET JACK Unavailable [phone] Rosey Alexander CARPET JACK Unavailable [phone] Craig Montenegro PA-C Unavailable +[phone] Altagracia Alexander DPM, Podiatry /Foot and Ankle Surgery Unavailable Enrico Felton DO Unavailable [phone] Enrico Felton DO Primary Care Provider [phone] Cy Leonardo Unavailable Unavailable Enrico Felton DO Unavailable [phone] Rebecca Palumbo MD Unavailable [phone] Anders Ramachandran Unavailable Unavailable Magdalena Brice Unavailable Unavailable JesusMaddie bryant Unavailable Unavailable No Ref-Primary, Physician Primary Care Provider Enrico Felton DO Primary Care Provider [phone] Aydee Mcgill RN Unavailable [phone] Wendy Agustin APRN FREIGHT FLOW SALES LEADER Unavailable [phone] Encounter Details Date Type Department Care Team (Late st Contact Info) Description 09/13/2011 Office Visit-[facility] [place] [address] [facility] [address] [place] [address] Kuldeep Herndon MD [address] [facility] [address] [place] [address] Social History Tobacco [...] mg Tablet, 2 p.o. twice daily 5. [place] 3-6-9 1,200 mg Capsule, 1 p.o. daily [...] LVEF not documented FAMILY HISTORY: Father - [place]; Brother 1 - CVA, unknown type; Uncle(P) [...] - not working; Residence - lives in [place] year round; REVIEW OF SYSTEMS GENERAL feels [...] Tablet, 2 p.o. twice daily, #0 (Zero) [place] 3-6-9 1,200 mg Capsule, 1 p.o. daily, [...] 2:00 PM CDT Appointment [facility] [address] [place] [phone] Kingsley Westbrook, DPBharath [address] [place] [address] documented as of this encounter Visit Diagnoses Not on filedocumented in this encounter Additional Health Concerns Infection Onset Date Last Indicated Resolved Time 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 per 09/01/16 roping machine tender note; left foot tissue 10/08/16 09/01/2016 09/01/2016 10/11/2018 7:49 AM C DT MRSA Comment:MRSA at outside facility per 09/01/16 roping machine tender note; left foot tissue 10/08/16 10/11/2018 02/27/2019 documented as of this encounter Care Teams Green Prize Packer Relationship Specialty Start Date End Date Pramod Sweet MD PCP - General Family Practice 07/11/11 05/28/14 Hawa Wasserman MD PCP - General 06/29/15 09/03/16 Madhuri Whitman APRN FREIGHT FLOW SALES LEADER PCP - General Nurse Practitioner - Family 09/04/16 08/23/20 Madhuri Whitman APRN FREIGHT FLOW SALES LEADER [address] [address] PCP - Assigned PCP 09/03/16 05/21/18 [place] [address] [place] [address] PCP - General Family Medicine 08/24/20 01/23/22 No Ref-Primary, Physician PCP - General 02/20/22 06/29/22 [place] [address] [place] [address] PCP - General Family Medicine 06/30/22 Kaylen Aiken, ROQUE Clinic Tube Station Attendant 10/18/16 Edu Crawford DPM [address] [facility] [address] [place] [address] Podiatry 10/18/16 Madhuri Whitman APRN FREIGHT FLOW SALES LEADER [address] [address] Assigned PCP 09/03/16 09/27/19 Rosey Alexander LSW Clinic Tube Station Attendant Primary Care - 09/27/18 9 Rosey Alexander, CARPET JACK Lead Tube Station Attendant Primary Care - CC 11/08/18 05/07/19 Craig Montenegro PA-C [address] [facility] [place] [address] Assigned PCP 09/28/19 01/31/20 Altagracia Alexander DPM, Podiatry/Foot and Ankle Surgery [address] [place] [address] Assigned Musculoskeletal Provider 01/09/20 10/30/20 [place] [address] [place] [address] Assigned PCP 02/01/20 08/28/20 Cy Leonardo Personal Advocate & Liaison (PAL) 08/26/20 10/13/20 [place] [address] [place] [address] Assigned PCP 08/29/20 10/08/23 Rebecca Palumbo MD [address] [place] [address] [id number] Assigned Neuroscience Provider 10/01/20 10/14/21 Anders Ramachandran Personal Advocate & Liaison (PAL) 10/14/20 07/07/21 Magdalena Brice Personal Advocate & Liaison (PAL) 11/14/21 12/27/21 Maddie Mae Personal Advocate & Liaison (PAL) Family Medicine 12/28/21 Aydee Mcgill RN RN Clinical Product Navigator Primary Care - CC 06/30/22 06/30/22 Wendy gAustin APRN FREIGHT FLOW SALES LEADER [address] [facility] [address] [place] [address] Assigned PCP 10/09/23 [facility] 10/18/16 06/24/17 [facility] [employer] 07/27/17 08/14/17 documented as of this encounter
--- OUTSIDE RECORDS SUMMARY | 2023-12-15 02:22 | XMS_ITS | Encounter Summary ---
Author Organization [facility] Address [address] [place] [address] Care Team Providers Care Election Supervisor Name Role Phone Madhuri Whitman DIRECT SALES PROFESSIONAL MODEL SET ARTIST Primary Care Prov ider Kaylen Aiken RN Unavailable [phone] Edu CrawfordM Unavailable [phone] Madhuri Whitman APRN MODEL SET ARTIST Unavailable + Madhuri Whitman APRN MODEL SET ARTIST Unavailable + Rosey Alexander BILINGUAL OFFICE ASSISTANT Unavailable Rosey Alexander BILINGUAL OFFICE ASSISTANT Unavailable [phone] Craig Montenegro PA-C Unavailable [phone] Altagracia Alexander DPM, Podiatry /Foot and Ankle Surgery Unavailable Enrico Felton DO Unavailable [phone] Enrico Felton DO Primary Care Provider [phone] Cy Leonardo Unavailable Unavailable Enrico Felton DO Unavailable [phone] Rebecca Palumbo MD Unavailable [phone] Anders Ramachandran Unavailable Unavailable Magdalena Brice Unavailable Unavailable Maddie Mae Unavailable Unavailable No Ref-Primary, Physician Primary Care Provider Enrico Felton DO Primary Care Provider Aydee Mcgill RN Unavailable [phone] Wendy Agustin APRN MODEL SET ARTIST Unavailable [phone] Encounter Details Date Type Department Care Team (Late st Contact Info) Description 09/21/2016 MyC Medical Advice [address], [address] [place] [address] Malou Vallejo Social History Tobacco [...] PM CDT Appointment [facility] [address] [place] [address] Kingsley Westbrook, GAYLA [address] [place] [address] documented as of this encounter Visit Diagnoses Not on filedocumented in this encounter Additional Health Concerns Infection Onset Date Last Indicated Resolved Time 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 per 09/01/16 tower control operator note; left foot tissue 10/08/16 09/01/2016 09/01/2016 10/11/2018 7:49 AM C DT MRSA Comment:MRSA at outside facility per 09/01/16 tower control operator note; left foot tissue 10/08/16 10/11/2018 02/27/2019 documented as of this encounter Care Teams Election Supervisor Relationship Specialty Start Date End Date Madhuri Whitman APRN MODEL SET ARTIST PCP - General Nurse Practitioner - Family 09/04/16 08/23/20 Madhuri Whitman APRN MODEL SET ARTIST [address] [place] [address] PCP - Assigned PCP 09/03/16 05/21/18 [place] [address] [place] [address] PCP - General Family Medicine 08/24/20 01/23/22 No Ref-Primary, Physician PCP - General 02/20/22 06/29/22 [place] [address] [place] [address] PCP - General Family Medicine 06/30/22 Kaylen Aiken, ROUQE Clinic Director Software 10/18/16 [place] Crawford DPM [address] [facility] [address] [place], [place] [address] Podiatry 10/18/16 Madhuri Whitman APRN MODEL SET ARTIST [address] [address] Assigned PCP 09/03/16 09/27/19 Rosey Alexander LSW Clinic Director Software Primary Care - CC 09/27/18 9 Rosey Alexander LSW Lead Director Software Primary Care - CC 11/08/18 05/07/19 Craig Montenegro PA-C [address] [address] Assigned PCP 09/28/19 01/31/20 Altagracia Alexander, DPM, Podiatry/Foot and Ankle Surgery [address] [place] [address] Assigned Musculoskeletal Provider 01/09/20 10/30/20 [place] [address] [place] [address] Assigned PCP 02/01/20 08/28/20 Cy Leonardo Personal Advocate & Liaison (PAL) 08/26/20 10/13/20 [place] [address] [place] [address] Assigned PCP 08/29/20 10/08/23 Rebecca Palumbo MD [address] [place] [address] [address] [place], [place] [address] Assigned Neuroscience Provider 10/01/20 10/14/21 Anders Ramachandran Personal Advocate & Liaison (PAL) 10/14/20 07/07/21 Magdalena Brice Personal Advocate & Liaison (PAL) 11/14/21 12/27/21 Maddie Mae Personal Advocate & Liaison (PAL) Family Medicine 12/28/21 Aydee Mcgill, RN RN Clinical Product Navigator Primary Care - CC 06/30/22 06/30/22 Wendy Agustin APRN MODEL SET ARTIST [address] [facility] [address] [place] [address] Assigned PCP 10/09/23 [place] [phone] (Work) Home Care Company 10/18/16 06/24/17 [facility] 07/27/17 08/14/17 documented as of this encounter
--- OUTSIDE RECORDS SUMMARY | 2023-12-15 02:22 | XMS_ITS | Encounter Summary ---
Author Organization [facility] Address [address] [place] [address] Care Team Providers Care Janitor Cleaner Name Role Phone Dwayne Draper MD Primary Care Provider + DoctorHawa MD Primary Care Provider Unavailabl e Madhuri Whitman SCIENCE TECHNICIAN ORDER SCHEDULE CLERK Primary Care Prov ider Kaylen Aiken RN Unavailable [phone] Edu Crawford DPM Unavailable [phone] Madhuri Whitman SCIENCE TECHNICIAN ORDER SCHEDULE CLERK Unavailable + Madhuri Whitman SCIENCE TECHNICIAN ORDER SCHEDULE CLERK Unavailable + Rosey Alexander PRODUCTION SUPERINTENDENT HYDRO Unavailable [phone] Rosey Alexander PRODUCTION SUPERINTENDENT HYDRO Unavailable [phone] Craig Montenegro PA-C Unavailable [phone] Altagracia Alexander DPM, Podiatry /Foot and Ankle Surgery Unavailable Enrico Felton DO Unavailable [phone] Enrico Felton DO Primary Care Provider [phone] Cy Leonardo Unavailable Unavailable Enrico Felton DO Unavailable [phone] Rebecca Palumbo MD Unavailable [phone] Anders Ramachandran Unavailable Unavailable Magdalena Brice Unavailable Unavailable Maddie Mae Unavailable Unavailable No Ref-Primary, Physician Primary Care Provider Enrico Felton DO Primary Care Provider [phone] Nano Aydee K RN Unavailable [phone] Wendy Agustin APRN ORDER SCHEDULE CLERK Unavailable [phone] Reason for Visit * Reason Onset Date Comments Refill Request 03/08/2012 Oxycodone, metha done Encounter Details Date Type Department Care Team (Late st Contact Info) Description 03/08/2012 MyC Refill [facility] [id number] [place] [address], [address] [place] [address] [place] [address] [place] [address] Refill Request (Oxycodone, methadone) Social [...] ready to be picked up at front desk worker. Kayleigh Foster RN MINER * Telephone Encounter - Diane Erazo - 03/08/2012 8:16 AM CSTMessage from MyChart: Original authorizing provider: Dwayne Draper MD, MD Alyssa Palencia would like a refill of the following medications: oxyCODONE (ROXICODONE) 10 MG immediate release tablet [Dwayne Draper MD, MD] methadone (DOLOPHINE) 10 MG tablet [Dwayne Draper MD, MD] Preferred pharmacy: [facility] Comment: I am leaving for [place] on mar 10 and will not be back until mar 25 2012 so I need to gat them filled before I leave since they are a narcitic I think I have to medicinal plant picker the script at the clinic MINER documented in this encounter Plan of Treatment Upcoming Encounters Date Type Department Care Team (Late st Contact Info) Description 12/21/2023 2:00 PM CDT Appointment [facility] [place] [address] [place] [address] Kingsley Westbrook, DPBharath [address] [facility] [address] [place], [place] [address] documented as of this encounter Visit Diagnoses Diagnosis Chronic pain- Primary Other chronic pain documented in this encounter Additional Health Concerns Infection Onset Date Last Indicated Resolved Time 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 per 09/01/16 fish processor note; left foot tissue 10/08/16 09/01/2016 09/01/2016 10/11/2018 7:49 AM C DT MRSA Comment:MRSA at outside facility per 09/01/16 fish processor note; left foot tissue 10/08/16 10/11/2018 02/27/2019 documented as of this encounter Care Teams Janitor Cleaner Relationship Specialty Start Date End Date Dwayne Draper MD PCP - General Family Practice 07/11/11 05/28/14 Hawa Wasserman MD PCP - General 06/29/15 09/03/16 Madhuri Whitman APRN ORDER SCHEDULE CLERK PCP - General Nurse Practitioner - Family 09/04/16 08/23/20 Madhuri Whitman APRN ORDER SCHEDULE CLERK [address] [address] PCP - Assigned PCP 09/03/16 05/21/18 [place] [address] [place] [address] PCP - General Family Medicine 08/24/20 01/23/22 No Ref-Primary, Physician PCP - General 02/20/22 06/29/22 [place] [address] [place] [address] PCP - General Family Medicine 06/30/22 Kaylen Aiken, ROQUE Clinic Blood Bank Laboratory Professional 10/18/16 Edu Crawford DPM [address] [facility] [address] [place], [place] [address] Podiatry 10/18/16 Madhuri Whitman APRN ORDER SCHEDULE CLERK [address] [place] 6682[address] Assigned PCP 09/03/16 09/27/19 Rosey Alexander, [facility] Clinic Blood Bank Laboratory Professional Primary Care - CC 09/27/18 9 Rosey Alexander, [facility] Lead Blood Bank Laboratory Professional Primary Care - CC 11/08/18 05/07/19 Craig Montenegro PA-C [address] [place] 7257168 Assigned PCP 09/28/19 01/31/20 Altagracia Alexander DPM, Podiatry/Foot and Ankle Surgery [address] [place] [address] Assigned Musculoskeletal Provider 01/09/20 10/30/20 [place] [address] [place] [address] Assigned PCP 02/01/20 08/28/20 Cy Leonardo Personal Advocate & Liaison (PAL) 08/26/20 10/13/20 [place] [address] [place] [address] Assigned PCP 08/29/20 10/08/23 Rebecca Palumbo MD [address] [place] [address] [address] [place] [address] Assigned Neuroscience Provider 10/01/20 10/14/21 Anders Ramachandran Personal Advocate & Liaison (PAL) 10/14/20 07/07/21 Magdalena Brice Personal Advocate & Liaison (PAL) 11/14/21 12/27/21 Maddie Mae Personal Advocate & Liaison (PAL) Family Medicine 12/28/21 Aydee Mcgill RN ROQUE Clinical Product Navigator Primary Care - CC 06/30/22 06/30/22 Wendy Agustin APRN ORDER SCHEDULE CLERK [address] [facility] [address] [place], [place] [address] Assigned PCP 10/09/23 [facility] 10/18/16 06/24/17 [facility] 07/27/17 08/14/17 documented as of this encounter
--- OUTSIDE RECORDS SUMMARY | 2023-12-15 02:22 | XMS_ITS | Encounter Summary ---
Author Organization [facility] Address [address] [place] [address] Care Team Providers Care Mobile Device Engineer Name Role Phone Madhuri Whitman STATIONARY ENGINEER APPRENTICE SMALL ENGINE SPECIALIST Primary Care Prov ider Edu Crawford DPM Unavailable [phone] Madhuri Whitman APRN SMALL ENGINE SPECIALIST Unavailable + Rosey Alexander DISC INSPECTOR Unavailable Rosey Alexander DISC INSPECTOR Unavailable [phone] Craig Montenegro PA-C Unavailable [phone] Altagracia Alexander DPM, Podiatry /Foot and Ankle Surgery Unavailable Enrico Felton DO Unavailable [phone] Enrico Felton DO Primary Care Provider [phone] Cy Leonardo Unavailable Unavailable Enrico Felton DO Unavailable [phone] Rebecca Palumbo MD Unavailable [phone] Anders Ramachandran Unavailable Unavailable Magdalena Brice Unavailable Unavailable Maddie Mae Unavailable Unavailable No Ref-Primary, Physician Primary Care Provider Enrico Felton DO Primary Care Provider [phone] Aydee Mcgill RN Unavailable [phone] Wendy Agustin STATIONARY ENGINEER APPRENTICE SMALL ENGINE SPECIALIST Unavailable Reason for Visit * Reason Onset Date Comments Refill Request 10/30/2018 Wheelchair order Refill Request 11/15/2018 Encounter Details Date Type Department Care Team (Late st Contact Info) Description 10/30/2018 Refill [facility] [address] [facility], [address] [place] [address] Madhuri Whitman APRN SMALL ENGINE SPECIALIST [address] [facility] [place] [address] Refill Request (Wheelchair order); Refill Request Social [...] Appointment [facility] Wound [address] [place] [phone] Kingsley Westbrook DPM [address] [place], [place] [address] documented as of this encounter Visit Diagnoses Not on filedocumented in this encounter Additional Health Concerns Infection Onset Date Last Indicated Resolved Time MRSA Comment:MRSA at outside facility per 09/01/16 metal mockup maker note; left foot tissue 10/08/16 10/11/2018 02/27/2019 Assessment Noted Time PHQ-9 Depression Total Score: 3 06/22/19 19 2:29 PM CDT documented as of this encounter Care Teams Mobile Device Engineer Relationship Specialty Start Date End Date Madhuri Whitman APRN SMALL ENGINE SPECIALIST PCP - General Nurse Practitioner - Family 09/04/16 08/23/20 [place] [address] [place] [address] PCP - General Family Medicine 08/24/20 01/23/22 No Ref-Primary, Physician PCP - General 02/20/22 06/29/22 [place] [address] [place] [address] PCP - General Family Medicine 06/30/22 [place] [address] [facility] [address] [place], [place] [address] Podiatry 10/18/16 Madhuri Whitman, [place] SMALL ENGINE SPECIALIST [address] [place] [address] Assigned PCP 09/03/16 09/27/19 Rosey Alexander, [facility] Clinic Portal Administrator Primary Care - CC 09/27/18 9 Rosey Alexander, [facility] Lead Portal Administrator Primary Care - CC 11/08/18 05/07/19 Craig Montenegro PA-C [address] [place] [address] Assigned PCP 09/28/19 01/31/20 Altagracia Alexander DPM, Podiatry/Foot and Ankle Surgery [address] [place], [place] [address] Assigned Musculoskeletal Provider 01/09/20 10/30/20 [place] [address] [place] [address] Assigned PCP 02/01/20 08/28/20 Cy Leonardo Personal Advocate & Liaison (PAL) 08/26/20 10/13/20 [place] [address] [place] [address] Assigned PCP 08/29/20 10/08/23 Rebecca Palumbo MD [address] [place] [address] 297 [place] [address] Assigned Neuroscience Provider 10/01/20 10/14/21 Anders Ramachandran Personal Advocate & Liaison (PAL) 10/14/20 07/07/21 Magdalena Brice Personal Advocate & Liaison (PAL) 11/14/21 12/27/21 Maddie Mae Personal Advocate & Liaison (PAL) Family Medicine 12/28/21 Aydee Mcgill RN ROQUE Clinical Product Navigator Primary Care - CC 06/30/22 06/30/22 Wendy Agustin APRN SMALL ENGINE SPECIALIST [address] [facility] [address] [place] [address] Assigned PCP 10/09/23 documented as of this encounter
--- OUTSIDE RECORDS SUMMARY | 2023-12-15 02:22 | XMS_ITS | Encounter Summary ---
Author Organization [facility] Address [address] [place] [address] Care Team Providers Care Toter Name Role Phone Madhuri Whitman APRN INSPECTOR PLUG SEAM Primary Care Prov ider Edu Crawford DPM Unavailable [phone] Madhuri Whitman APRN INSPECTOR PLUG SEAM Unavailable + Rosey Alexander FINISHED CLOTH EXAMINER Unavailable [phone] Craig Montenegro PA-C Unavailable [phone] Altagracia Alexander DPM, Podiatry /Foot and Ankle Surgery Unavailable Enrico Felton DO Unavailable [phone] Enrico Felton DO Primary Care Provider [phone] Cy Leonardo Unavailable Unavailable Enrico Felton DO Unavailable [phone] Rebecca Palumbo MD Unavailable [phone] Anders Ramachandran Unavailable Unavailable Magdalena Brice Unavailable Unavailable Maddie Mae Unavailable Unavailable No Ref-Primary, Physician Primary Care Provider Enrico Felton DO Primary Care Provider [phone] Aydee Mcgill RN Unavailable [phone] Wendy Agustin APRN INSPECTOR PLUG SEAM Unavailable [phone] Encounter Details Date Type Department Care Team (Late st Contact Info) Description 04/30/2019 MyC Medical Advice [facility] [address] [facility], [address] [place] [address] Melissa Flores, MORTGAGE BRANCH MANAGER Social History Tobacco Use Types Packs/Day [...] PM CDT Appointment [facility] [address] [place] [address] Kingsley Westbrook DPM [address] [place] [address] documented as of this encounter Goals Goal Patient Goal Type Associated Problems Recent Progress Patient-Stated? Author Financial Wellbeing General Yes Rosey Alexander, FINISHED CLOTH EXAMINER documented as of this encounter Visit Diagnoses Not on filedocumented in this encounter Additional Health Concerns Infection Onset Date Last Indicated Resolved Time MRSA Comment:MRSA at outside facility per 09/01/16 cook's assistant note; left foot tissue 10/08/16 10/11/2018 02/27/2019 Assessment Noted Time PHQ-9 Depression Total Score: 1 02/18/20 19 2:22 PM TECHNICIAN AUTOMATED EQUIPMENT documented as of this encounter Care Teams Toter Relationship Specialty Start Date End Date Madhuri Whitman APRN CNP PCP - General Nurse Practitioner - Family 09/04/16 08/23/20 [place] [address] [place] [address] PCP - General Family Medicine 08/24/20 01/23/22 No Ref-Primary, Physician PCP - General 02/20/22 06/29/22 [place] [address] [place] [address] PCP - General Family Medicine 06/30/22 [place] [address] [facility] [address] [place] [address] Podiatry 10/18/16 Madhuri Whitman APRN INSPECTOR PLUG SEAM [address] [facility] [place] [place] [address] Assigned PCP 09/03/16 09/27/19 Rosey Alexander, FINISHED CLOTH EXAMINER Lead Register In [place] Primary Care - CC 11/08/18 05/07/19 Craig Montenegro PA-C [address] [place] [address] Assigned PCP 09/28/19 01/31/20 Altagracia Alexander DPM, Podiatry/Foot and Ankle Surgery [address] [place] [address] 300 [place] [address] Assigned Musculoskeletal Provider 01/09/20 10/30/20 [place] [address] [place] [address] Assigned PCP 02/01/20 08/28/20 Cy Leonardo Personal Advocate & Liaison (PAL) 08/26/20 10/13/20 [place] [address] [place] [address] Assigned PCP 08/29/20 10/08/23 Rebecca Palumbo MD [address] [place] [address] 297 [place], [place] [address] Assigned Neuroscience Provider 10/01/20 10/14/21 Anders Ramachandran Personal Advocate & Liaison (PAL) 10/14/20 07/07/21 Magdalena Brice Personal Advocate & Liaison (PAL) 11/14/21 12/27/21 Maddie Mae Personal Advocate & Liaison (PAL) Family Medicine 12/28/21 Aydee Mcgill RN ROQUE Clinical Product Navigator Primary Care - CC 06/30/22 06/30/22 Wendy Agustin APRN INSPECTOR PLUG SEAM [address] [place] [address] Assigned PCP 10/09/23 documented as of this encounter
--- OUTSIDE RECORDS SUMMARY | 2023-12-15 02:22 | XMS_ITS | Encounter Summary ---
Author Organization [facility] Address [address] [place] [address] Care Team Providers Care Data Center Consultant Name Role Phone Dwayne Draper MD Primary Care Provider + DoctorHawa MD Primary Care Provider Unavailabl e Madhuri Whitman EVISCERATOR ETHYLENE PLANT OPERATOR Primary Care Prov ider Kaylen Aiken RN Unavailable [phone] Edu Crawford DPM Unavailable [phone] Madhuri Whitman EVISCERATOR ETHYLENE PLANT OPERATOR Unavailable + Madhuri Whitman EVISCERATOR ETHYLENE PLANT OPERATOR Unavailable + Rosey Alexander FAST FOOD RESTAURANT MANAGER Unavailable [phone] Rosey Alexander FAST FOOD RESTAURANT MANAGER Unavailable [phone] Craig Montenegro PA-C Unavailable +[phone] Altagracia Alexander DPM, Podiatry /Foot and Ankle Surgery Unavailable Enrico Felton DO Unavailable [phone] Enrico Felton DO Primary Care Provider [phone] Cy Leonardo Unavailable Unavailable Enrico Felton DO Unavailable [phone] Rebecca Palumbo MD Unavailable [phone] Anders Ramachandran Unavailable Unavailable Magdalena Brice Unavailable Unavailable Maddie Mae Unavailable Unavailable No Ref-Primary, Physician Primary Care Provider Enrico Felton DO Primary Care Provider [phone] Aydee Mcgill RN Unavailable [phone] Wendy Agustin EVISCERATOR ETHYLENE PLANT OPERATOR Unavailable [phone] Reason for Visit * Reason Onset Date Comments Refill Request 03/08/2012 Encounter Details Date Type Department Care Team (Late st Contact Info) Description 03/08/2012 MyC Refill [address], [address] [place] [address] [place] [address] [place] [address] Refill Request Social History Tobacco Use Types [...] 2:00 PM CDT Appointment [facility] [place] [address] [place] [address] Kingsley Westbrook DPM [address] [place] [address] documented as of this encounter Visit Diagnoses Not on filedocumented in this encounter Additional Health Concerns Infection Onset Date Last Indicated Resolved Time 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 per 09/01/16 educational program assistant note; left foot tissue 10/08/16 09/01/2016 09/01/2016 10/11/2018 7:49 AM C DT MRSA Comment:MRSA at outside facility per 09/01/16 educational program assistant note; left foot tissue 10/08/16 10/11/2018 02/27/2019 documented as of this encounter Care Teams Data Center Consultant Relationship Specialty Start Date End Date Dwayne Draper MD PCP - General Family Practice 07/11/11 05/28/14 Hawa Wasserman MD PCP - General 06/29/15 09/03/16 Madhuri Whitman APRN ETHYLENE PLANT OPERATOR PCP - General Nurse Practitioner - Family 09/04/16 08/23/20 Madhuri Whitman APRN ETHYLENE PLANT OPERATOR [address] [address] PCP - Assigned PCP 09/03/16 05/21/18 [place] [address] [place] [address] PCP - General Family Medicine 08/24/20 01/23/22 No Ref-Primary, Physician PCP - General 02/20/22 06/29/22 [place] [address] [facility] [place] [address] PCP - General Family Medicine 06/30/22 Kaylen Aiken, [facility] Food And Nutrition Teacher 10/18/16 Edu Crawford DPM [address] [facility] [address] [place] [address] Podiatry 10/18/16 Madhuri Whitman APRN ETHYLENE PLANT OPERATOR [address] [address] Assigned PCP 09/03/16 09/27/19 Rosey Alexander, [facility] Food And Nutrition Teacher Primary Care - CC 09/27/18 9 Rosey Alexander, [facility] Lead Food And Nutrition Teacher Primary Care - CC 11/08/18 05/07/19 Craig Montenegro PA-C [address] [place] [address] Assigned PCP 09/28/19 01/31/20 Altagracia Alexander DPM, Podiatry/Foot and Ankle Surgery [address] [place] [address] Assigned Musculoskeletal Provider 01/09/20 10/30/20 [place] [address] [place] [address] Assigned PCP 02/01/20 08/28/20 Cy Leonardo Personal Advocate & Liaison (PAL) 08/26/20 10/13/20 [place] [address] [place] [address] Assigned PCP 08/29/20 10/08/23 Rebecca Palumbo MD [address] [place] [address] [address] [place], [place] [address] Assigned Neuroscience Provider 10/01/20 10/14/21 Anders Ramachandran Personal Advocate & Liaison (PAL) 10/14/20 07/07/21 Magdalena Brice Personal Advocate & Liaison (PAL) 11/14/21 12/27/21 Maddie Mae Personal Advocate & Liaison (PAL) Family Medicine 12/28/21 Aydee Mcgill RN RN Clinical Product Navigator Primary Care - CC 06/30/22 06/30/22 Wendy Agustin APRN ETHYLENE PLANT OPERATOR [facility] [address] [place] [address] Assigned PCP 10/09/23 [facility] 10/18/16 06/24/17 [facility] 07/27/17 08/14/17 documented as of this encounter
--- OUTSIDE RECORDS SUMMARY | 2023-12-15 02:22 | XMS_ITS | Encounter Summary ---
Author Organization [facility] Address [address] [place] [address] Care Team Providers Care Tank Farm Attendant Name Role Phone Madhuri Whitman APPLICATION RELEASE MANAGER TRAVELING AUDITOR Primary Care Prov ider Edu Crawford DPM Unavailable [phone] Madhuri Whitman APRN TRAVELING AUDITOR Unavailable + Madhuri Whitman APRN TRAVELING AUDITOR Unavailable + Rosey Alexander SENIOR DATA ANALYST Unavailable [phone] Rosey Alexander SENIOR DATA ANALYST Unavailable [phone] Craig Montenegro PA-C Unavailable [phone] Altagracia Alexander DPM, Podiatry /Foot and Ankle Surgery Unavailable Enrico Felton DO Unavailable [phone] Enrico Felton DO Primary Care Provider [phone] Cy Leonardo Unavailable Unavailable Enrico Felton DO Unavailable [phone] Rebecca Palumbo MD Unavailable [phone] Anders Ramachandran Unavailable Unavailable Magdalena Brice Unavailable Unavailable Maddie Mae Unavailable Unavailable No Ref-Primary, Physician Primary Care Provider Enrico Felton DO Primary Care Provider [phone] Aydee Mcgill RN Unavailable [phone] HedyWendy alamo APPLICATION RELEASE MANAGER TRAVELING AUDITOR Unavailable [phone] Reason for Visit * Reason Onset Date Comments Medication Refill 03/04/2018 PARoxetine and omeprazole Encounter Details Date Type Department Care Team (Late st Contact Info) Description 03/02/[address], [address] [place] [address] Madhuri Whitman, WANDY TRAVELING AUDITOR [address] [place], [place] [id number] Medication Refill (PARoxetine and omeprazole ) Social [...] via phone, sent letter. Alexandrea Lacy MA RAM MANAGER RN * Telephone Encounter - Carol Dickerson RN - 03/05/2018 2:49 PM CST Please call pt to schedule a med check with labs Medication is being filled for 1 time refill only due to: Patient needs to be seen because needs OV. Carol Dickerson RN, BSN RAM MANAGER RN * Telephone Encounter - Laureen Baumann [...] No positive test in past 12 months RAM MANAGER RN documented in this encounter Plan of Treatment Upcoming Encounters Date Type Department Care Team (Late st Contact Info) Description 12/21/2023 2:00 PM CDT Appointment [facility] [place] [address] [place] [address] Kingsley Westbrook DPM [address] [place], [place] [address] documented as of this encounter Visit Diagnoses Diagnosis Episode of recurrent major depressive disorder, unspecified depression episode severity (H) Gastroesophageal reflux disease, esophagitis presence not specified documented in this encounter Additional Health Concerns Infection Onset Date Last Indicated Resolved Time 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 per 09/01/16 process mechanic note; left foot tissue 10/08/16 09/01/2016 09/01/2016 10/11/2018 7:49 AM C DT MRSA Comment:MRSA at outside facility per 09/01/16 process mechanic note; left foot tissue 10/08/16 10/11/2018 02/27/2019 Assessment Noted Time PHQ-9 Depression Total Score: 0 07/29/19 18 2:19 PM CDT documented as of this encounter Care Teams Tank Farm Attendant Relationship Specialty Start Date End Date Madhuri Whitman APRN TRAVELING AUDITOR PCP - General Nurse Practitioner - Family 09/04/16 08/23/20 Madhuri Whitman APRN TRAVELING AUDITOR [address] [place] [address] PCP - Assigned PCP 09/03/16 05/21/18 [place] [address] [address] [place], [place] [id number] PCP - General Family Medicine 08/24/20 01/23/22 No Ref-Primary, Physician PCP - General 02/20/22 06/29/22 [place] [address] [place], [place] [id number] PCP - General Family Medicine 06/30/22 Edu Crawford D[place] [address] [facility] [address] [place], [place] [address] Podiatry 10/18/16 Madhuri Whitman APRN TRAVELING AUDITOR [address] [place] [id number] Assigned PCP 09/03/16 09/27/19 Rosey Alexander, SENIOR DATA ANALYST Clinic Government Documents Librarian Primary Care - CC 09/27/18 9 Rosey Alexander, SENIOR DATA ANALYST Lead Government Documents Librarian Primary Care - CC 11/08/18 05/07/19 Craig Montenegro PA-C [address] [place] [id number] Assigned PCP 09/28/19 01/31/20 Altagracia Alexander DPM, Podiatry/Foot and Ankle Surgery [address] [place], [place] [address] Assigned Musculoskeletal Provider 01/09/20 10/30/20 [place] [address] [place] [address] Assigned PCP 02/01/20 08/28/20 Cy Leonardo Personal Advocate & Liaison (PAL) 08/26/20 10/13/20 [place] [address] [place] [address] Assigned PCP 08/29/20 10/08/23 Rebecca Palumbo MD [address] [place] [address] [address] [place], [place] [address] Assigned Neuroscience Provider 10/01/20 10/14/21 Anders Ramachandran Personal Advocate & Liaison (PAL) 10/14/20 07/07/21 Magdalena Brice Personal Advocate & Liaison (PAL) 11/14/21 12/27/21 Maddie Mae Personal Advocate & Liaison (PAL) Family Medicine 12/28/21 Aydee Mcgill RN RN Clinical Product Navigator Primary Care - CC 06/30/22 06/30/22 Wendy Agustin APRN TRAVELING AUDITOR [address] [facility] [address] [place] [address] Assigned PCP 10/09/23 documented as of this encounter
--- OUTSIDE RECORDS SUMMARY | 2023-12-15 02:22 | XMS_ITS | Encounter Summary ---
Author Organization [facility] Address [address] [place] [address] Care Team Providers Care Prototype Machine Operator Name Role Phone Madhuri Whitman HUMANITIES DEPARTMENT CHAIR SCHOOL PHOTOGRAPHS DETAILER Primary Care Prov ider Edu Crawford DPM Unavailable [phone] Madhuri Whitman APRN SCHOOL PHOTOGRAPHS DETAILER Unavailable + Madhuri Whitman APRN SCHOOL PHOTOGRAPHS DETAILER Unavailable + Rosey Alexander UROLOGY PHYSICIAN Unavailable [phone] Rosey Alexander UROLOGY PHYSICIAN Unavailable [phone] Craig Montenegro PA-C Unavailable [phone] Altagracia Alexander DPM, Podiatry /Foot and Ankle Surgery Unavailable Enrico Felton DO Unavailable [phone] Enrico Felton DO Primary Care Provider [phone] Cy Leonardo Unavailable Unavailable Enrico Felton DO Unavailable [phone] Rebecca Palumbo MD Unavailable [phone] Anders Ramachandran Unavailable Unavailable Magdalena Brice Unavailable Unavailable Maddie Mae Unavailable Unavailable No Ref-Primary, Physician Primary Care Provider Enrico Felton DO Primary Care Provider [phone] Aydee Mcgill RN Unavailable [phone] Wendy Agustin HUMANITIES DEPARTMENT CHAIR SCHOOL PHOTOGRAPHS DETAILER Unavailable [phone] Reason for Visit * Reason Onset Date Comments Medication Refill 11/20/2017 amLODIPine and lisinopril Encounter Details Date Type Department Care Team (Late st Contact Info) Description 11/17/[address], [address] [place] [address] Madhuri Whitman, HUMANITIES DEPARTMENT CHAIR SCHOOL PHOTOGRAPHS DETAILER [address] [place] [address] Medication Refill (amLODIPine and lisinopril ) Social [...] 11/20/2017 11:08 AM CDT Prescription approved per [facility] Refill Protocol. Kayleigh Foster RN * Telephone [...] CDT Appointment [facility] [place] [address] [place] [address] Kingsley Westbrook DPM [address] [place] [address] documented as of this encounter Visit Diagnoses Diagnosis Hypertension goal BP (blood pressure) < 140/90 Unspecified essential hypertension documented in this encounter Additional Health Concerns Infection Onset Date Last Indicated Resolved Time 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 per 09/01/16 logging supervisor note; left foot tissue 10/08/16 09/01/2016 09/01/2016 10/11/2018 7:49 AM C DT MRSA Comment:MRSA at outside facility per 09/01/16 logging supervisor note; left foot tissue 10/08/16 10/11/2018 02/27/2019 Assessment Noted Time PHQ-9 Depression Total Score: 0 07/29/19 18 2:19 PM CDT documented as of this encounter Care Teams Prototype Machine Operator Relationship Specialty Start Date End Date Madhuri Whitman APRN SCHOOL PHOTOGRAPHS DETAILER PCP - General Nurse Practitioner - Family 09/04/16 08/23/20 Madhuri Whitman APRN SCHOOL PHOTOGRAPHS DETAILER [address] [place] [address] PCP - Assigned PCP 09/03/16 05/21/18 [place] [address] [place] [address] PCP - General Family Medicine 08/24/20 01/23/22 No Ref-Primary, Physician PCP - General 02/20/22 06/29/22 [place] [address] [place] [address] PCP - General Family Medicine 06/30/22 [place] [address] [facility] [address] [place], [place] [address] Podiatry 10/18/16 Madhuri Whitman APRN SCHOOL PHOTOGRAPHS DETAILER [address] [place] [address] Assigned PCP 09/03/16 09/27/19 Rosey Alexander, UROLOGY PHYSICIAN Clinic Counselor At Law Primary Care - CC 09/27/18 9 Rosey Alexander, UROLOGY PHYSICIAN Lead Counselor At Law Primary Care - CC 11/08/18 05/07/19 Craig Montenegro PA-C [address] [place] [address] Assigned PCP 09/28/19 01/31/20 Altagracia Alexander DPM, Podiatry/Foot and Ankle Surgery [address] [facility] [address] [place], [place] [address] Assigned Musculoskeletal Provider 01/09/20 10/30/20 [place] [address] [place] [address] Assigned PCP 02/01/20 08/28/20 Cy Leonardo Personal Advocate & Liaison (PAL) 08/26/20 10/13/20 [place] [address] [place] [address] Assigned PCP 08/29/20 10/08/23 Rebecca Palumbo MD [address] [place] [address] [address] [place], [place] [address] Assigned Neuroscience Provider 10/01/20 10/14/21 Anders Ramachandran Personal Advocate & Liaison (PAL) 10/14/20 07/07/21 Magdalena Brice Personal Advocate & Liaison (PAL) 11/14/21 12/27/21 Maddie Mae Personal Advocate & Liaison (PAL) Family Medicine 12/28/21 Aydee Mcgill, RN RN Clinical Product Navigator Primary Care - CC 06/30/22 06/30/22 Wendy Agustin APRN SCHOOL PHOTOGRAPHS DETAILER [address] [place] [address] Assigned PCP 10/09/23 documented as of this encounter
--- OUTSIDE RECORDS SUMMARY | 2023-12-15 02:23 | XMS_ITS | Clinical Summary ---
Author Organization [employer] [facility] Address [place], [place] [address] Care Team Providers Care Retail Loss Prevention Officer Name Role Phone Enrico Felton DO Primary Care Provider [phone] Allergies Active Allergy Reactions Criticality Noted Date [...] 3:26 AM CDT - Present Hospital Encounter [facility] [address] [place] [address] Weinkauf, MD Kamryn Merino, MD Thanh Pagan, MD Jessica Quiñones Amrith, MD [facility], [facility] Hospitalists Of Cavernous malformation (Primary Dx) 12/12/2023 [facility] [address] [address] Bindu Santoro, DUCT LAYER Update from Last 3 Months Immunizations Name [...] Name Comments Diabetes Daughter Heart Disease Father [place] @ age 58 Hypertension Father Cancer-breast Mother [...] (5' 9) 12/14/2023 3:12 PM CDT previous [facility] chart Body Mass Index 29.46 12/14/2023 5:00 AM CDT Plan of Treatment Upcoming Encounters Date Type Department Care Team (Late st Contact Info) Description 01/01/2024 8:00 AM CDT Office Visit [facility] [address] [facility] [address] [place] [address] Ernesto Dumont, DPM 825 [facility] [address] [place], [place] [phone] Scheduled Procedures Name Priority Associated Diagnoses Date/Ti [...] 02/20/2022, 08/23/2020 Medical Devices Implanted Type Area Sociology Faculty Member Device Identifier Shelf Expiration Date Model / Serial / Lot Screw 6.5x35 Tsrh-3d Shrt Post - [id number] Implanted:Qty: 3 on 04/20/2009 at [facility] Spine Implants N/A: Spine [employer] [id number]# / / Screw 6.5x40 Tsrh-3d Shrt Post - [id number] Implanted:Qty: 2 on 04/20/2009 at [facility] Spine Implants N/A: Spine [employer] [id number]# / / Christopher 6.0cmx5.5mm Pre-Cut - [id number] Implanted:Qty: 1 on 04/20/2009 at [facility] Spine Implants N/A: Lumbar Vertebrae [employer] [id number]# / / Christopher 7.0cmx5.5mm Pre-Cut - [id number] Implanted:Qty: 1 on 04/20/2009 at [facility] Spine Implants N/A: Lumbar Vertebrae [employer] [id number]# / / Putty Bone Dbx 1cc [id number] - [id number] Implanted:Qty: 1 on 05/01/2005 at [facility] Explanted:at [facility] (Quantity not on file) Spine Musculoskeletal Transplant 01/18/2007 [id number]# / [id number] / Block Aric 0w72t80bs - [id number] Implanted:Qty: 1 on 05/01/2005 at [facility] Explanted:at [facility] (Quantity not on file) Spine Medtronic 08/18/2006 [id number]# / [id number] / [id number] Description:EXP 08/18/06 Block Aric [id number] - [id number] Implanted:Qty: 1 on 05/01/2005 at [facility] Explanted:at [facility] (Quantity not on file) Spine Medtronic 05/11/[id number]# / [id number] / [id number] Description:EXP 05/11/06 Screw Canclls 4.0x14mm Self-Tapping - [id number] Implanted:Qty: 4 on 05/01/2005 at [facility] Cervical Vertebrae SOFAMOR [employer]ANEK [id number]# / / Implant On The Fly - [id number] Implanted:Qty: 1 on 05/01/2005 at [facility] Cervical Vertebrae [id number] / / Description:40MM ANTERIOR CE RVICAL PLATE Plate Pyramid 4h 37mm - [id number] Implanted:Qty: 1 on 04/20/2009 at [facility] N/A: Spine [employer] [id number]# / / Screw Lock 03/22-32 Flush Break Ti - [id number] Implanted:Qty: 5 on 04/20/2009 at [facility] N/A: Spine [employer] [id number]# / / Kit Infuse Bone Graft [id number] - [id number] Implanted:Qty: 1 on 04/20/2009 at [facility] Spine Medtronic 10/17/2010 [id number]# / / [id number] D Putty Mastergraft 10cc - [id number] Implanted:Qty: 1 on 04/20/2009 at [facility] Spine Medtronic 11/16/2012 [id number]# / / [id number] Vessel Guard Preclude 5x6cm - [id number] Implanted:Qty: 1 on 04/20/2009 at [facility] Spine [employer] [id number]# / / [id number] 20x4mm Screw Implanted:Qty: 4 on 04/20/2009 at [facility] Spine Backup Circle 04.802.21 1 / / Description:20X4MM SCREW Connector Small 5.5 Implanted:Qty: 5 on 04/20/2009 at [facility] Spine Medtronic [id number] / / Description:CONNECTOR SMALL 5.5 [id number] Implanted:Qty: 1 on 04/20/2009 at [facility] Explanted:at [facility] (Quantity not on file) Spine Allosource 03/30/2013 [id number] / [id number] / Description:OSTEOCEL 5CC [id number] 4-407bone Prec 14x26 [[id number]] Implanted:Qty: 1 on 04/20/2009 at [facility] Explanted:at [facility] (Quantity not on file) Spine [employer] 12/19/2011 [id number]# / [id number] / Implant Spine [id number] 12 Deg Spacer/Plate - [id number] Implanted:Qty: 1 on 04/20/2009 at [facility] N/A: Spine Backup Circle 08.802.01 3S# / / Screw Arlin 6.5x30mm - [id number] Implanted:Qty: 4 on 04/20/2009 at [facility] N/A: Spine SOF[employer]ANEK [id number]# / / Procedures The patient is currently [...] SCREEN FFDM (IA) Routine 03/07/2011 4:12 PM [facility]WALL BOARDHANGER Other screening mammogram LIPID PANEL Routine 03/07/2011 7:40 AM [facility] [employer]ER Essential hypertension, benign PIPE FITTER THIN PREP PAP SCREEN IMAGED Routine 01/30/2008 4:13 PM [facility]WALL BOARDHANGER Routine Gynecological Examination from Last 3 Months or Most Recently Relevant to Health Maintenance Results * (ABNORMAL) GLUCOSE METER (12/14/2023 10:38 PM CDT) Only the most recent of13 resultswithin the time period is included. GLUCOSE METER 145(H) 65 - 100 mg/dL 12/14/2023 10:38 PM CDT [facility] Winning Pitch [facility] Blood BLOOD SPECIMEN / Unknown 12/14/2023 10:38 PM CDT 12/14/2023 10:38 PM CDT Saman Lopez MD CHEMISTRY [facility] [address] [place] [address], * MAGNESIUM (12/14/2023 4:58 AM CDT) Only the most recent of2 resultswithin the time period is included. MAGNESIUM 2.0 1.6 - 2.4 mg/dL 12/14/2023 5:58 AM CDT [facility] Blood BLOOD SPECIMEN / Unknown Butterfly / Unknown 12/14/2023 4:58 AM CDT 12/14/2023 5:24 AM CDT Nusrat Harry MD CHEMISTRY Performing Organization Address [facility] Co de Phone Number [facility] [address] [address], [place] * WHITE BLOOD COUNT (12/13/2023 5:51 AM CDT) WHITE BLOOD COUNT 10.8 4.5 - 11.0 thou/cu mm 12/13/2023 6:28 AM CDT [facility] NRBC 0.0 % 12/13/2023 6:28 AM CDT [facility] ABS NRBC 0.0 thou /cu mm 12/13/2023 6:28 AM CDT [facility] Blood BLOOD SPECIMEN / Unknown Butterfly / Unknown 12/13/2023 5:51 AM CDT 12/13/2023 6:18 AM CDT Miguel Angel Law MD HEMATOLOGY Performing Organization Address [facility] Co de Phone Number [facility] [address] [phone], [place] * Sodium AM (12/13/2023 5:51 AM CDT) SODIUM 143 136 - 145 mmol/L 12/13/2023 6:50 AM CDT [facility] Blood BLOOD SPECIMEN / Unknown Butterfly / Unknown 12/13/2023 5:51 AM CDT 12/13/2023 6:19 AM CDT Miguel Angel Law MD CHEMISTRY Performing Organization Address [facility] Co de Phone Number [facility] [address] [address], [place] * SCAN-CARDIAC STRIP (12/12/2023 8:00 PM CDT) Scanner OTHER * (ABNORMAL) MRSA/SA PCR (12/12/2023 2:14 PM CDT) MRSA DNA PCR Negative Negative 12/12/2023 5:13 PM CDT [facility] STAPHYLOCOCCUS AUREUS PCR Positive(A) Negative 12/12/2023 5:13 PM CDT [facility] Other SPECIMEN FROM INTERNAL NOSE / Unknown Non-Blood / Unknown 12/12/2023 2:14 PM CDT 12/12/2023 3:37 PM CDT Narrative [facility] - 12/12/2023 5:13 PM CDT S. aureus detected; NOT MRSA. Test result does not preclude MRSA nasal colonization. False negative for MRSA could be obtained if MRSA present in the sample is below threshold of detection. Radha Valdez NP MICROBIOLOGY [facility] [address] [place] [phone], * XR FOOT 3 VIEWS RIGHT PORTABLE [...] @ Dec 13 2023 12:45AM (Electronically Signed) [email or web address] Procedure Note Rosendo Cristina MD - 12/13/2023 [...] @ Dec 13 2023 12:45AM (Electronically Signed) [email or web address] Rizwan Moy NP GENERAL IMAGING * AMMONIA (12/12/2023 10:08 AM CDT) AMMONIA 26 16 - 60 umol/L 12/12/2023 10:39 AM CDT [facility] Blood BLOOD SPECIMEN / Unknown Butterfly / Unknown 12/12/2023 10:08 AM CDT 12/12/2023 10:15 AM CDT Narrative [facility] - 12/12/2023 10:39 AM CDT 1. ??Sulfasalazine and its metabolite Sulfapyridine at therapeutic concentrations may lead to falsely low results. 2. ??Temozolomide and its metabolite MTIC may lead to falsely elevated results, and its metabolite AIC may lead to falsely low results. Radha Valdez NP CHEMISTRY [facility] [address] [place] [address], [place] * SCAN-CARDIAC STRIP (12/12/2023 10:00 AM [...] NOW QTc 483 ms BEYOND NOW P [place] 57 degrees BEYOND NOW R [place] -8 degrees BEYOND NOW T [place] 176 degrees BEYOND NOW 12/12/2023 9:33 AM CDT 12/12/2023 5:24 PM CDT Narrative [facility] NOW - 12/12/2023 5:24 PM CDT Test Indication: ahsan Nusrat Harry MD EKG ORD BEYOND NOW [place], [place] * CT ANGIO HEAD (12/12/2023 6:31 [...] 11.0 thou/cu mm 12/12/2023 6:12 AM CDT [facility] RED BLOOD COUNT 5.30(H) 4.00 - 5.20 mil/cu mm 12/12/2023 6:12 AM CDT [facility] HEMOGLOBIN 15.2 12.0 - 16.0 g/dL 12/12/2023 6:12 AM CDT [facility] HEMATOCRIT 46.0 33.0 - 51.0 % 12/12/2023 6:12 AM CDT [facility] MCV 87 80 - 100 fL 12/12/2023 6:12 AM CDT [facility] MCH 28.7 26.0 - 34.0 pg 12/12/2023 6:12 AM CDT [facility] MCHC 33.0 32.0 - 36.0 g/dL 12/12/2023 6:12 AM CDT [facility] RDW 14.0 11.5 - 15.5 % 12/12/2023 6:12 AM [facility] PLATELET COUNT 224 140 - 440 thou/cu mm 12/12/2023 6:12 AM [facility] MPV 9.9 6.5 - 11.0 fL 12/12/2023 6:12 AM [facility] NRBC 0.0 % 12/12/2023 6:12 AM [facility] ABS NRBC 0.0 thou /cu mm 12/12/2023 6:12 AM [facility] % NEUT 81.2 % 12/12/2023 6:12 AM [facility] % LYMPH 12.0 % 12/12/2023 6:12 AM [facility] % MONO 5.7 % 12/12/2023 6:12 AM [facility] % EOS 0.1 % 12/12/2023 6:12 AM [facility] % BASO 0.6 % 12/12/2023 6:12 AM [facility] % IMMATURE GRAN (METAS,MYELOS,GA OS) 0.4 % 12/12/2023 6:12 AM [facility] ABSOLUTE NEUTROPHILS 10.7(H) 1.7 - 7.0 thou/cu mm 12/12/2023 6:12 AM [facility] ABSOLUTE LYMPHOCYTES 1.6 0.9 - 2.9 thou/cu mm 12/12/2023 6:12 AM [facility] ABSOLUTE MONOCYTES 0.8 <0.9 thou/cu mm 12/12/2023 6:12 AM [facility] ABSOLUTE EOSINOPHILS 0.0 <0.5 thou/cu mm 12/12/2023 6:12 AM [facility] ABSOLUTE BASOPHILS 0.1 <0.3 thou/cu mm 12/12/2023 6:12 AM [facility] ABSOLUTE IMMATURE GRANULOCYTES(MET ,MYELOS,PROS) 0.1 <0.3 thou/cu mm 12/12/2023 6:12 AM CDT [facility] Blood BLOOD SPECIMEN / Unknown Venipuncture / Unknown 12/12/2023 5:17 AM CDT 12/12/2023 5:42 AM CDT Karishma Lopez MD HEMATOLOGY [facility] [address] [place] [address], [place] * Hemoglobin A1C (12/12/2023 5:17 AM CDT) Pathologist [facility] HEMOGLOBIN A1C MONITORING (POCT) 6.1 <=6.4 % 12/12/2023 5:47 PM CDT [facility] Blood BLOOD SPECIMEN / Unknown Venipuncture / Unknown 12/12/2023 5:17 AM CDT 12/12/2023 5:42 AM CDT Narrative [facility] - 12/12/2023 5:47 PM CDT ? [...] Karishma Lopez MD CHEMISTRY Performing Organization Address City/[facility]/ZIP Co de Phone Number [facility] [address] [place] [phone], [place] * (ABNORMAL) Basic Metabolic Panel (12/12/2023 5:17 AM CDT) Pathologist [facility] SODIUM 142 136 - 145 mmol/L 12/12/2023 6:16 AM T [facility] POTASSIUM 3.7 3.5 - 5.1 mmol/L 12/12/2023 6:16 AM T [facility] CHLORIDE 107 98 - 107 mmol/L 12/12/2023 6:16 AM T [facility] CO2,TOTAL 23 22 - 29 mmol/L 12/12/2023 6:16 AM T [facility] ANION GAP 12 5 - 18 12/12/2023 6:16 AM T [facility] GLUCOSE 125(H) 70 - 99 mg/dL 12/12/2023 6:16 AM T [facility] CALCIUM 8.9 8.8 - 10.2 mg/dL 12/12/2023 6:16 AM [facility] BUN 24(H) 8 - 23 mg/dL 12/12/2023 6:16 AM [facility] CREATININE 1.03(H) 0.50 - 0.90 mg/dL 12/12/2023 6:16 AM T [facility] BUN/CREAT RATIO 23(H) 10 - 20 6:16 AM [facility] eGFR 62(L) >90 mL/min/1.7 3m2 12/12/2023 6:16 AM [facility] Comment:As of 2021, eG FR [...] 5:42 AM CDT Karishma Lopez MD CHEMISTRY [facility] [address] [place], [place] [address] * (ABNORMAL) DRUG SCREEN RAPID URINE INHOUSE (12/12/2023 5:16 AM CDT) [facility] THC METABOLITES,YOLA L Non-negative , consider further testing if indicated(A) Not Detected 12/12/2023 5:53 AM CDT [facility] PCP,QUAL Not Detected Not Detected 12/12/2023 5:53 AM CDT [facility] COCAINE,QUAL Not Detected Not Detected 12/12/2023 5:53 AM CDT [facility] METHAMPHETAMINE , QUALITATIVE Non-negative , consider further testing if indicated(A) Not Detected 12/12/2023 5:53 AM CDT [facility] OPIATES,QUAL Not Detected Not Detected 12/12/2023 5:53 AM CDT [facility] AMPHETAMINE, QUALITATIVE Not Detected Not Detected 12/12/2023 5:53 AM CDT [facility] BENZODIAZEPINES ,QUAL Non-negative , consider further testing if indicated(A) Not Detected 12/12/2023 5:53 AM CDT [facility] TRICYCLICS,QUAL Not Detected Not Detected 12/12/2023 5:53 AM CDT [facility] METHADONE, QUALITATIVE Not Detected Not Detected 12/12/2023 5:53 AM CDT [facility] BARBITURATES,QU AL Not Detected Not Detected 12/12/2023 5:53 AM CDT [facility] OXYCODONE, QUALITATIVE Not Detected Not Detected 12/12/2023 5:53 AM CDT [facility] BUPRENORPHINE, QUALITATIVE Non-negative , consider further testing if indicated(A) Not Detected 12/12/2023 5:53 AM CDT [facility] Urine URINE SPECIMEN / Unknown Non-Blood / Unknown 12/12/2023 5:16 AM CDT 12/12/2023 5:[address] [facility] - 12/12/2023 5:53 AM CDT [...] order PCP confirmation. Karishma Lopez MD URINE [facility] [address] [place] [address], * XR MAMMO BILAT SCREEN FFDM (03/07/2011 4:12 PM DRYWALL BOARDHANGER) Anatomical Region Laterality Modality BREASTS, Breast Left, Breast Right Bilateral Mammography Impressions 03/08/2011 12:05 PM [employer]WALL BOARDHANGER ??There is no radiographic evidence for malignancy. ??Recommend annual mammograms. A lay language report of this examination will be provided to the patient. MAMMOGRAM ASSESSMENT: ??ACR 2 Benign Narrative 03/08/2011 12:05 PM DRYWALL BOARDHANGER XR MAMMO BILAT SCREEN FFDM [G0202.0] CLINICAL HISTORY: ??This is an asymptomatic 50 y.o. patient. INDICATION FOR EXAM: Mammogram Screening. TECHNIQUE: CC & MLO views were obtained. ??This digital study was evaluated with the assistance of Computer-Aided Detection. ?? COMPARISON FILMS: Yes 08/19/01 [facility] FINDINGS: ??Mammographically, the breast tissue has scattered [...] of Computer-Aided Detection. COMPARISON FILMS: Yes 08/19/01 [facility] FINDINGS: Mammographically, the breast tissue has scatteredfibroglandular [...] * (ABNORMAL) LIPID PANEL (03/07/2011 7:40 AM DRYWALL BOARDHANGER) CHOLESTEROL,TOTAL 271(H) 110 - 199 mg/dL [facility] TRIGLYCERIDES 498(H) <150 mg/dL [facility] HDL CHOLESTEROL 37(L) >40 mg/dL [facility] CHOL/HDL RATIO 7.32(H) <4.51 [facility] LDL CHOLESTEROL Invalid LDL when Trig >400. [facility] PATIENT STATUS Fasting [facility] Blood specimen (specimen) BLOOD SPECIMEN / Unknown 03/07/2011 7:40 AM [facility]WALL BOARDHANGER 03/07/2011 7:30 AM [employer]WALL BOARDHANGER Cooper Maria MD CHEMISTRY [facility] [address] [place] [address] * pap screening (01/30/2008 4:13 PM DRYWALL BOARDHANGER) CYTOLOGY ??CYTOPATHOLOGY REPORT ??[facility] ?? Status: Final Report ? [id number] ?? CLINICAL INFORMATION ?Date of Last LMP ?: 01/14/08 ?Last Pap Date ? : 5 years ago ?Last Pap Result ? : NIL ?ABN [place]/Bx Past 5 YRS: None ?Hormone Usage ? : BCP/OCP/Patch/Ring ?Menstrual Status ?: Irregular Periods ?[place]/Bx done today ?: No ?Additional Data ? [...] 01/30/08 ?? ACCESSIONED: 01/30/08 ?? SIGNED: 02/08/08 [facility] PAP [place] CODE NIL [facility] Cervical (Cervical) 01/30/2008 4:13 PM [facility]WALL BOARDHANGER 01/30/2008 4:09 PM [employer]WALL BOARDHANGER Susanna Nanette Camp DO PATHOLOGY/CYTOLOGY [facility] INTERNAL ZIP [address] [place] [phone] from Last 3 Months or Most Recently [...] 5:33 PM 11/28/2013 4:17 PM Care Teams Retail Loss Prevention Officer Relationship Specialty [place] [address] [place] [address] PCP - General Family Practice 01/02/22
== END 2023-12-12 02:29 | disposition home or self-care (01) ==
LOC: AMB 12-15 02:16
PROVIDERS: PCP Family Medicine; Visit Provider Family Medicine
DX: I61.9 Nontraumatic intracerebral hemorrhage, unspecified (principal)
CPT/HCPCS: A0425; A0434